=== PATIENT | male | born 1955 | race African-American/Black ===

== ENCOUNTER 2021-01-02 13:10 | Inpatient (IN) | payer MEDICARE, MEDICAID, SELFPAY ==
--- NOTE | ~2021-01-02 | CT_ITS ---
EXAMINATION: CT BRAIN, CT CERVICAL SPINE AND CT CHEST WITHOUT CONTRAST. CLINICAL INFORMATION: Fall. COMPARISON: None TECHNIQUE: 5 mm thin axial and reformatted 2 mm thin sagittal and coronal images of brain were obtained. Axial 2 mm thin and reformatted 3 mm thin sagittal and coronal images of cervical spine were obtained. Lastly axial 5 mm thin and reformatted 3 mm thin sagittal and coronal images of chest were obtained. FINDINGS: Brain: There is no acute intra-axial, extra-axial bleed, masses or midline shift. There is no acute infarction evolution. The lateral ventricles are symmetrical in size and configuration without enlargement. The cartwright to white matter differentiation is maintained normal. Bone windows reveal no calvarial abnormality. Bilateral paranasal sinuses and mastoid air cells are well-aerated. Cervical spine: There is mild straightening of cervical lordosis. The vertebral heights and alignment is preserved normal. The craniovertebral junction and the C1-C2 alignment is normal. No visible acute fracture, dislocation or subluxation seen. The prevertebral and paravertebral soft tissues are normal. The central trachea and the bronchi widely patent. Mild emphysematous changes are seen in both lungs. CHEST: There is diffuse emphysematous changes of both lungs without acute pneumonic consolidation. There are fine interstitial increased markings in right upper lobe and right lower lobe. There is no pleural effusion or thickening. No visible pneumothorax. The axilla and the chest wall is unremarkable. Bone windows reveal no lytic or sclerotic process. Imaging to the upper abdomen reveals visualized liver, spleen, pancreas and bilateral adrenal glands to be unremarkable. There are small radiopaque gallstone noted. CT/CT cervical spine wo con IMPRESSION: No acute intracranial process seen. Mild straightening of cervical lordosis without any underlying fracture, dislocation or subluxation. There is exaggerated thoracic kyphosis. Diffuse centrilobular emphysema. There is right basilar atelectasis or scarring. No effusion or pleural thickening.
--- NOTE | ~2021-01-02 | US_ITS ---
EXAMINATION: US ABDOMEN LIMITED CLINICAL INFORMATION: Femur, elevated LFT. COMPARISON: Report from CT abdomen and pelvis noncontrast 03/27/2013 and report from abdominal ultrasound 04/08/2011. TECHNIQUE: Real-time imaging of the right upper quadrant abdominal viscera. Technically challenging exam noted by it desktop support technician. FINDINGS: PANCREAS: The visualized pancreas is unremarkable with normal echogenicity and contour and size. There is no pancreatic ductal distention. The pancreatic tail is obscured by bowel gas and not completely imaged. LIVER: The liver is within limits of normal size and smooth in contour. There is increased hepatic parenchymal echogenicity consistent with hepatic steatosis. There is no focal hepatic parenchymal lesion or intrahepatic ductal dilatation. GALLBLADDER: The gallbladder is only partially distended to 1.8 cm in diameter. There is a mobile gallstone measuring 1.0 cm in diameter. There may be some dependent sludge. The gallbladder wall is mildly thickened at 0.39 cm. There is no subserosal edema or pericholecystic fluid. Barrera's sign is difficult to assess. COMMON BILE DUCT: Normal in caliber measuring 0.55 cm in diameter. No visible ductal calculus. RIGHT KIDNEY: Normal. No hydronephrosis. No renal calculi or focal parenchymal lesions. The kidney measures 10.1 cm in maximum dimension. FREE FLUID: None. US/US abdomen limited IMPRESSION: 1. Hepatic steatosis. No focal parenchymal lesion or intrahepatic ductal dilatation. 2. Gallstone, possible dependent sludge in gallbladder. Mild thickening gallbladder wall may be related to limited distention. No hyperemia on color Doppler. Common duct unremarkable.
--- NOTE | ~2021-01-02 | MR_ITS ---
EXAMINATION: MR BRAIN WITHOUT AND WITH CONTRAST CLINICAL INFORMATION: Seizure. COMPARISON: CT head from 01/02/2021. TECHNIQUE: MRI of the brain was obtained using routine sequences without and following the administration of 6 mL of Gadavist intravenous contrast. FINDINGS: No focal restricted diffusion is demonstrated to suggest acute or subacute cerebral ischemia. No evidence of acute hemorrhagic products on heme-sensitive imaging. Punctate focus of susceptibility artifact in the right temporal lobe consistent with petechial microhemorrhage. Scattered periventricular and deep white matter T2 FLAIR hyperintensities consistent with mild to moderate underlying microangiopathy. Proportional prominence of the ventricles and sulcal spaces without evidence of obstructive hydrocephalus. No abnormal mass effect. No midline shift. The hippocampi are symmetric in size, contour, and signal intensity. The temporal horns appear symmetric. Normal appearance of the pituitary gland. Prominent CSF space posterior to the cerebellum. Normal arterial and venous vascular flow voids are present. No abnormal contrast enhancement. Normal, homogeneous marrow signal. Moderate degenerative spondyloarthropathy of the visualized upper cervical spine. No signal abnormalities within the paranasal sinuses or mastoids. MR/MR head/brain wo/w con IMPRESSION: 1. No acute intracranial abnormalities. No abnormal intracranial enhancement. 2. Mild to moderate underlying microangiopathy and generalized cerebral volume loss.
--- NOTE | ~2021-01-02 | CT_ITS ---
EXAMINATION: CT ABDOMEN AND PELVIS WITHOUT CONTRAST CLINICAL INFORMATION: Sepsis with question of underlying infection COMPARISON: Ultrasound abdomen performed earlier today, CT abdomen pelvis 03/27/[address] chest 01/02/2021 TECHNIQUE: Multidetector volumetric imaging was performed from the superior aspect of the liver through the pubic symphysis. Sagittal and coronal reformatted images were obtained on the technologist's workstation. This CT examination was performed using dose optimization techniques as appropriate, variously including the following: *Automated exposure control *Adjustment of mA and/or kV according to patient size (this includes techniques or standardized protocols for targeted exams where dose is matched to indication/reason for exam; i.e. extremities or head) *Use of iterative reconstruction technique DLP: 688 mGy-cm FINDINGS: LUNG BASES: Severe changes of COPD are present at the lung bases. No consolidations are seen. LIVER, GALLBLADDER, AND BILIARY TREE: The liver is normal in size, shape, and attenuation. No focal hepatic lesion or biliary ductal dilatation is present. The gallbladder is contracted containing a single gallstone. Appearances are similar to those noted in 2013. No evidence to suggest cholecystitis. PANCREAS: Unremarkable. SPLEEN: Unremarkable. ADRENAL GLANDS: Unremarkable. KIDNEYS AND URETERS: The kidneys are normal in size, shape, and attenuation. No hydronephrosis, hydroureter, or calculi seen. No perinephric stranding. BLADDER: Unremarkable. GASTROINTESTINAL TRACT: Large stool burden is present in the colon especially the rectum and right colon. No evidence of bowel obstruction nor diverticulitis. The small and large bowel are unremarkable. The appendix is normal.. ABDOMINAL WALL: No significant hernia is appreciated. LYMPH NODES: No retroperitoneal lymphadenopathy. VASCULAR: Calcific atherosclerotic changes present in the aorta and iliofemoral vessels. No aneurysms.. PELVIC VISCERA: Calcifications present in the prostate. Seminal vesicles appear normal. No ascites. OSSEOUS STRUCTURES: Mild degenerative changes present in the spine. No bony destructive lesions. CT/CT abdomen pelvis wo con IMPRESSION: A cause for the patient's underlying sepsis is not seen. Incidental note made of COPD, cholelithiasis, large stool burden and atherosclerotic changes in the aorta.
--- NOTE | 2021-01-02 14:03 | ED_ITS ---
HPI - Fever General Chief Complaint: General Medical Stated Complaint: SEIZURE,FEVER @ SNF PER EMS Time Seen by Provider: 01/02/21 13:54 Source: patient, EMS and old records reviewed Mode of arrival: EMS Limitations: altered mental status History of Present Illness HPI Narrative: 65 yo male with HIV dementia, prior substance abuse, HTN, bipolar comes from SNF with c/o a resident saw him shake and then patient fell out of bed. staff editor at SNF told EMS the same no other history offered patient felt hot to the touch with EMS and is tachycardic. The patient states it hurts to pee. He is incontinent of stool. EMS states patient was still on the floor when they arrived but the did not see any seizure activity. No staff witnessed seizure activity. MD elicited complaint: fever Onset (ago): unknown Exacerbating factors: nothing Relieving factors: nothing Associated symptoms: dysuria Treatments prior to arrival fever: none Related Data Home Medications Medication Instructions Recorded Confirmed amlodipine 2.5 mg tablet 1 tab PO DAILY 01/02/21 01/02/21 emtricitabine 200 mg-rilpivirine 1 tab PO DAILY 01/02/21 01/02/21 25 mg-tenofovir alafenam 25 mg tablet (Abram) ergocalciferol (vitamin D2) 1,250 1 cap PO MO 01/02/21 01/02/21 mcg (50,000 unit) capsule haloperidol decanoate 50 mg/mL 50 mg IM Q28D 01/02/21 01/02/21 intramuscular solution hydrochlorothiazide 12.5 mg capsule 1 cap PO DAILY 01/02/21 01/02/21 mirtazapine 15 mg tablet 1 tab PO BEDTIME 01/02/21 01/02/21 olanzapine 20 mg tablet 1 tab PO DAILY 01/02/21 01/02/21 Allergies Allergy/AdvReac Type Severity Reaction Status Date / Time No Known Allergies Allergy Unverified 01/28/20 16:07 [No Known Allergies*] Review of Systems Review of Systems: ROS unable to be obtained due to altered mental status PMFSH Past Medical History Attestation statement: The following information was validated with the patient. Medical History (Updated 01/02/21 @ 16:33 by Roz Kenyon DO) Bipolar 1 disorder Dementia Hepatitis C HIV (human immunodeficiency virus infection) HTN (hypertension) Liver failure Social History Social History Patient Tobacco Use Status: Tobacco use Unknown Substance Use Type: Former Substance User Are you DNR?: No Advance Directives: No Advance Directives Information Provided: No Physical Exam Vital Signs: Vital Signs: Last Vital Signs Temp 99.7 F 01/02/21 15:21 Pulse 110 H 01/02/21 15:21 Resp 18 01/02/21 15:21 BP 136/98 H 01/02/21 14:18 Pulse Ox 97 01/02/21 15:21 Body Mass Index 25.1 Appearance: Alert. Oriented X2. No acute distress. Eyes: Pupils equal, round and reactive to light. ENT: Pharynx normal. Neck: Normal inspection. Neck supple. no meningeal signs CVS: tachycardic heart rate and rhythm. Pulses normal. Respiratory: No respiratory distress. Breath sounds normal. Abdomen: Soft and non-tender. does not grimace to palpation Skin: Skin warm and dry. Normal skin color. Normal skin turgor. Extremities: No lower extremity edema. incontinent of stool. no pain to palpation of extremities Neuro: Oriented X 2. No motor deficit. No sensory deficit. Course Course Course Narrative: signed out to Freddie MODI pending UA and US report MDM - Fever MDM Narrative Medical decision making narrative: 65 yo male with HIV dementia, prior substance abuse, HTN, bipolar comes from [facility] with c/o a resident saw him shake and then patient fell out of bed. staff editor at [facility] told EMS the same no other history offered patient felt hot to the touch with EMS and is tachycardic. At this time will need labs, cultures, UA, CT of head/cspine/chest to r/o trauma and infection. IVF, tylenol PO dispo per results and findings. Unsure if he had seizure no prior known episodes in [facility] I can find he is very limited in history. Lab Data Result diagrams: 01/02/21 14:24 01/02/21 14:24 Labs: Lab Results 01/02/21 01/02/21 01/02/21 Range/Units 14:24 14:24 14:24 WBC 6.2 (4.8-10.8) X10*3/uL RBC 5.58 (4.60-5.80) X10*6/uL Hgb 17.0 (14.0-18.0) g/dl Hct 51.7 (42-52) % MCV 92.7 (80-98) fL MCH 30.5 (27.0-33.0) pg MCHC 32.9 (31.0-36.0) g/dl RDW 13.0 (11.0-16.0) % Plt Count 237 (160-400) X10*3/uL MPV 9.4 (9.4-12.4) fL Immature Gran % (Auto) 1.0 H (0.0-0.4) % Neut % (Auto) 48.9 (45-73) % Lymph % (Auto) 40.6 H (20-40) % [place] % (Auto) 8.0 (2-11) % Eos % (Auto) 1.0 (0-4) % Baso % (Auto) 0.5 (0-2) % Lymph # (Auto) 2.5 (1.2-4.9) X10*3/uL [place] # (Auto) 0.5 (0.1-1.2) X10*3/uL Eos # (Auto) 0.1 (0.0-0.4) X10*3/uL Baso # (Auto) 0.0 (0.0-0.2) X10*3/uL Abs Immat Gran (auto) 0.06 H (0.00-0.03) X10*3/uL Absolute Neuts (auto) 3.0 (2.0-8.3) X10*3/uL Absolute Nucleated RBC 0.000 (0.0-0.012) X10*3/uL Nucleated RBC % (auto) 0.0 (0.0-0.2) /100WBC Sodium 141 (135-145) mmol/L Potassium 4.4 (3.3-5.1) mmol/L Chloride 106 (96-108) mmol/L Carbon Dioxide 26 (22-29) mmol/L Anion Gap 13 (12-20) BUN 13 (9-16) mg/dL Creatinine 1.00 (0.5-1.4) mg/dL Estim Creat Clear Calc 72.6 Estimated GFR > 60 Random Glucose 202 H (60-115) mg/dL Lactic Acid 2.6 H* (0.5-2.0) mmol/L Calcium 9.7 (8.4-10.2) mg/dL Magnesium (1.6-2.6) mg/dL Total Bilirubin (0.0-1.0) mg/dL Direct Bilirubin (0.0-0.5) mg/dL AST (5-37) U/L ALT (0-40) U/L Alkaline Phosphatase (39-117) U/L Total Creatine Kinase 72 (38-174) U/L Troponin I High Sens (<3.5-35.0) ng/L Total Protein (6.5-8.0) g/dL Albumin (3.5-5.0) g/dL Lipase 44 (8-78) U/L 01/02/21 01/02/21 Range/Units 14:24 14:24 WBC (4.8-10.8) X10*3/uL RBC (4.60-5.80) X10*6/uL Hgb (14.0-18.0) g/dl Hct (42-52) % MCV (80-98) fL MCH (27.0-33.0) pg MCHC (31.0-36.0) g/dl RDW (11.0-16.0) % Plt Count (160-400) X10*3/uL MPV (9.4-12.4) fL Immature Gran % (Auto) (0.0-0.4) % Neut % (Auto) (45-73) % Lymph % (Auto) (20-40) % [place] % (Auto) (2-11) % Eos % (Auto) (0-4) % Baso % (Auto) (0-2) % Lymph # (Auto) (1.2-4.9) X10*3/uL [place] # (Auto) (0.1-1.2) X10*3/uL Eos # (Auto) (0.0-0.4) X10*3/uL Baso # (Auto) (0.0-0.2) X10*3/uL Abs Immat Gran (auto) (0.00-0.03) X10*3/uL Absolute Neuts (auto) (2.0-8.3) X10*3/uL Absolute Nucleated RBC (0.0-0.012) X10*3/uL Nucleated RBC % (auto) (0.0-0.2) /100WBC Sodium (135-145) mmol/L Potassium (3.3-5.1) mmol/L Chloride (96-108) mmol/L Carbon Dioxide (22-29) mmol/L Anion Gap (12-20) BUN (9-16) mg/dL Creatinine (0.5-1.4) mg/dL Estim Creat Clear Calc Estimated GFR Random Glucose (60-115) mg/dL Lactic Acid (0.5-2.0) mmol/L Calcium (8.4-10.2) mg/dL Magnesium 2.4 (1.6-2.6) mg/dL Total Bilirubin 1.2 H (0.0-1.0) mg/dL Direct Bilirubin 0.8 H (0.0-0.5) mg/dL AST 93 H (5-37) U/L ALT 67 H (0-40) U/L Alkaline Phosphatase 114 (39-117) U/L Total Creatine Kinase (38-174) U/L Troponin I High Sens 6.7 (<3.5-35.0) ng/L Total Protein 9.0 H (6.5-8.0) g/dL Albumin 3.4 L (3.5-5.0) g/dL Lipase (8-78) U/L ECG Data ECG #1: Attestation: I personally reviewed and interpreted this ECG as follows: ECG interpretation date: 01/02/21 ECG interpretation time: 15:24 Interpretation: Rate: 110 Rhythm: sinus tachycardia [place]: left Normal P waves. Normal CARLOZ. Normal QRS complex. ST T wave : normal no JIMMY qTC: normal prior studies: no acute ischemia The study has been interpreted contemporaneously by me. . Discharge Plan Discharge Clinical Impression: Acidosis, lactic, Weakness, Gallstones, Elevated liver function tests Prescriptions: No Action amlodipine 2.5 mg tablet 1 tab PO DAILY RF: 0 hydrochlorothiazide 12.5 mg capsule 1 cap PO DAILY RF: 0 haloperidol decanoate 50 mg/mL solution 50 mg IM Q28D RF: 0 mirtazapine 15 mg tablet 1 tab PO BEDTIME RF: 0 ergocalciferol (vitamin D2) 1,250 mcg (50,000 unit) capsule 1 cap PO MO RF: 0 olanzapine 20 mg tablet 1 tab PO DAILY RF: 0 [place] 200-25-25 mg tablet 1 tab PO DAILY RF: 0
--- NOTE | 2021-01-02 14:05 | ECG_ITS ---
Test Reason : SEIZURE Blood Pressure : / mmHG Vent. Rate : 111 BPM Atrial Rate : 111 BPM P-R Int : 162 ms QRS Dur : 074 ms QT Int : 346 ms P-R-T Axes : 053 -36 041 degrees QTc Int : 470 ms Sinus tachycardia Left axis deviation Abnormal ECG When compared with ECG of 22-OCT-2019 15:45, No significant change was found Referred By: Roz Kenyon Electronically Signed By:ERIC GRACIA
[2021-01-02 14:11] VITALS: BP 138/78; PULSE 126; O2SAT 98
[2021-01-02 14:18] VITALS: BP 136/98; PULSE 116; RESP 19; TEMP 37.2; O2SAT 93; BMI 25.1
[2021-01-02] MEDS: 0.9 % Sodium Chloride 1,000 ML 999 ML IVCONT (14:30)
[2021-01-02 14:31] LABS: MANUAL DIFF FLAG NO
[2021-01-02] MEDS: ondansetron HCL 4 MG/2 ML VIAL IVPUSH (14:32)
[2021-01-02] MEDS: Acetaminophen Oral Liquid 650 MG/20.3 ML SOLUTION PO (14:33)
[2021-01-02 14:35] LABS: Basophils Percent Auto 0.5 % (0-2); Eosinophils Absolute Auto 0.1 X10*3/uL (0.0-0.4); Hematocrit 51.7 % (42-52); Imm Gran Abs Auto 0.06 X10*3/uL (0.00-0.03); Lymphocytes Absolute Auto 2.5 X10*3/uL (1.2-4.9); Lymphocytes Percent Auto 40.6 % (20-40); Mean Corpuscular HGB Conc 32.9 g/dl (31.0-36.0); Mean Corpuscular Hemoglobin 30.5 pg (27.0-33.0); Mean Corpuscular Volume 92.7 fL (80-98); Mean Platelet Volume 9.4 fL (9.4-12.4); Monocytes Absolute Auto 0.5 X10*3/uL (0.1-1.2); Neutrophils Percent Auto 48.9 % (45-73); Platelet Count 237 X10*3/uL (160-400); Red Blood Count 5.58 X10*6/uL (4.60-5.80); White Blood Count 6.2 X10*3/uL (4.8-10.8)
[2021-01-02] MEDS: cefEPime HCl 2 GM in 0.9 % Sodium Chloride 50 ML IV (14:38)
--- NOTE | 2021-01-02 14:57 | PHA.MEDREC ---
Pharmacy Consult ? Medication Reconciliation Pharmacy has completed the medication reconciliation. Verified with Patrick Coyne [facility] at [phone]
[2021-01-02 15:05] LABS: Alanine Aminotransferase 67 U/L (0-40); Albumin Level 3.4 g/dL (3.5-5.0); Alkaline Phosphatase 114 U/L (39-117); Anion Gap 13 (12-20); Aspartate Amino Transferase 93 U/L (5-37); Bilirubin Direct 0.8 mg/dL (0.0-0.5); Bilirubin Total 1.2 mg/dL (0.0-1.0); Blood Urea Nitrogen 13 mg/dL (9-16); Calcium 9.7 mg/dL (8.4-10.2); Carbon Dioxide 26 mmol/L (22-29); Chloride 106 mmol/L (96-108); Creatinine Clr Calc Pharmacy 72.6; Estimated Glomerular Filt Rate > 60; Glucose Random 202 mg/dL (60-115); Lipase 44 U/L (8-78); Magnesium 2.4 mg/dL (1.6-2.6); Potassium 4.4 mmol/L (3.3-5.1); Sodium 141 mmol/L (135-145)
[2021-01-02 15:08] LABS: Troponin-I High Sensitivity 6.7 ng/L (<3.5-35.0)
[2021-01-02 15:09] LABS: Lactic Acid 2.6 mmol/L (0.5-2.0)
[2021-01-02 15:21] VITALS: PULSE 110; RESP 18; TEMP 37.6; O2SAT 97
[2021-01-02 16:30] LABS: Reflex Lactate? Lactic Acid Added
[2021-01-02 17:54] LABS: Glucose Urine UA NEG (NEG); Leukocyte Esterase Urine NEG (NEG); Nitrite Urine NEG (NEG); Specific Gravity - Urine 1.025 (1.005-1.025); UACC Culture Trigger NO; Urine Blood TRACE (NEG); Urine Ketones NEG (NEG); Urine Protein 2+ MG/DL (NEG-TRACE)
[2021-01-02 17:56] LABS: Appearance Urine CLEAR; Color Urine DARK YELLOW
[2021-01-02 18:01] LABS: COVID-19 Test Negative (Negative)
[2021-01-02 18:04] LABS: ~Lactic Acid-LAB USE ONLY 1.8 mmol/L (0.5-2.0)
[2021-01-02 18:06] LABS: Bacteria Urine TRACE /LPF; Calcium Oxalate Crystals Urine TRACE /LPF; Mucus Urine TRACE /LPF; Squamous Epithelial Cell Urine TRACE /LPF; WBC Urine 0-2 /HPF (0-4)
[2021-01-02 18:09] VITALS: BP 124/93; PULSE 101; RESP 18; TEMP 36.5; O2SAT 97
[2021-01-02 19:27] VITALS: RESP 16
--- NOTE | 2021-01-02 20:40 | PC.NURSE ---
pt was incontinent of urine. this nurse and aviation maintenance technician Lissy at bedside to clean and change pt pt cleaned and bed linens changed call dubose in reach
--- NOTE | 2021-01-02 20:45 | PC.NURSE ---
Sergio RAJPUT. Ariela Frazier [employer], [facility] and this nurse at bedside to assist in lumbar puncture pt tolerating procedure well specimens collected and sent to lab
[2021-01-02 21:20] LABS: CSF Appearance Clear, Colorless; CSF Tube # 2
[2021-01-02 21:42] LABS: Glucose CSF 80 mg/dL; Total Protein CSF 79.9 mg/dL (15-45)
[2021-01-02 23:01] LABS: Appearance CSF CLEAR; CSF Tube # 1; Color CSF COLORLESS
[2021-01-02 23:02] LABS: CSF Monos 2 %; Lymphocytes CSF 98 %; Red Blood Cell CSF 112 MM*3
[2021-01-02 23:04] LABS: White Blood Cell CSF 16 MM*3
[2021-01-02 23:05] LABS: Appearance CSF CLEAR; CSF Monos 1 %; CSF Tube # 4; CSF Volume 0.5 ML; Color CSF COLORLESS; Lymphocytes CSF 99 %; Red Blood Cell CSF 7 MM*3; White Blood Cell CSF 33 MM*3
--- NOTE | 2021-01-02 23:15 | ED_ITS ---
HPI - General Adult General Chief complaint: General Medical Stated complaint: SEIZURE,FEVER @ SNF PER EMS Time Seen by Provider: 01/02/21 13:54 Source: patient, EMS and old records reviewed Mode of arrival: EMS Limitations: altered mental status Related Data Home Medications Medication Instructions Recorded Confirmed amlodipine 2.5 mg tablet 1 tab PO DAILY 01/02/21 01/02/21 emtricitabine 200 mg-rilpivirine 1 tab PO DAILY 01/02/21 01/02/21 25 mg-tenofovir alafenam 25 mg tablet (Abram) ergocalciferol (vitamin D2) 1,250 1 cap PO MO 01/02/21 01/02/21 mcg (50,000 unit) capsule haloperidol decanoate 50 mg/mL 50 mg IM Q28D 01/02/21 01/02/21 intramuscular solution hydrochlorothiazide 12.5 mg capsule 1 cap PO DAILY 01/02/21 01/02/21 mirtazapine 15 mg tablet 1 tab PO BEDTIME 01/02/21 01/02/21 olanzapine 20 mg tablet 1 tab PO DAILY 01/02/21 01/02/21 Allergies Allergy/AdvReac Type Severity Reaction Status Date / Time No Known Allergies Allergy Unverified 01/28/20 16:07 [No Known Allergies*] [facility] Past Medical History Medical History (Updated 01/02/21 @ 23:16 by Clay Sanchez MD) Bipolar 1 disorder Dementia Hepatitis C HIV (human immunodeficiency virus infection) HTN (hypertension) Liver failure Social History Social History Patient Tobacco Use Status: Tobacco use Unknown Substance Use Type: Former Substance User Are you DNR?: No Advance Directives: No Advance Directives Information Provided: No Physical Exam Vital Signs: Vital Signs: Last Vital Signs Temp 98.1 F 01/03/21 00:21 Pulse 89 01/03/21 00:21 Resp 16 01/03/21 00:21 BP 134/88 01/03/21 00:21 Pulse Ox 96 01/03/21 00:21 Body Mass Index 25.1 Procedures Lumbar Puncture Time Out Performed: Yes Patient Position: upright Skin Prep: Povidone-Iodine 1% Local Anesthetic: lidocaine 2% Amount of anesthesia used (mL): 2 Spinal Needle Gauge: 22G Interspace Used: L4-L5 Fluid Initially Obtained: clear Complications: none Medical Decision Making Lab Data Result diagrams: 01/02/21 14:24 01/02/21 14:24 Labs: Lab Results 01/02/21 01/02/21 01/02/21 Range/Units 14:24 14:24 14:24 WBC 6.2 (4.8-10.8) X10*3/uL RBC 5.58 (4.60-5.80) X10*6/uL Hgb 17.0 (14.0-18.0) g/dl Hct 51.7 (42-52) % MCV 92.7 (80-98) fL MCH 30.5 (27.0-33.0) pg MCHC 32.9 (31.0-36.0) g/dl RDW 13.0 (11.0-16.0) % Plt Count 237 (160-400) X10*3/uL MPV 9.4 (9.4-12.4) fL Immature Gran % (Auto) 1.0 H (0.0-0.4) % Neut % (Auto) 48.9 (45-73) % Lymph % (Auto) 40.6 H (20-40) % [place] % (Auto) 8.0 (2-11) % Eos % (Auto) 1.0 (0-4) % Baso % (Auto) 0.5 (0-2) % Lymph # (Auto) 2.5 (1.2-4.9) X10*3/uL [place] # (Auto) 0.5 (0.1-1.2) X10*3/uL Eos # (Auto) 0.1 (0.0-0.4) X10*3/uL Baso # (Auto) 0.0 (0.0-0.2) X10*3/uL Abs Immat Gran (auto) 0.06 H (0.00-0.03) X10*3/uL Absolute Neuts (auto) 3.0 (2.0-8.3) X10*3/uL Absolute Nucleated RBC 0.000 (0.0-0.012) X10*3/uL Nucleated RBC % (auto) 0.0 (0.0-0.2) /100WBC Sodium 141 (135-145) mmol/L Potassium 4.4 (3.3-5.1) mmol/L Chloride 106 (96-108) mmol/L Carbon Dioxide 26 (22-29) mmol/L Anion Gap 13 (12-20) BUN 13 (9-16) mg/dL Creatinine 1.00 (0.5-1.4) mg/dL Estim Creat Clear Calc 72.6 Estimated GFR > 60 Random Glucose 202 H (60-115) mg/dL Lactic Acid 2.6 H* (0.5-2.0) mmol/L Lactic Acid Fup @ 2Hr (0.5-2.0) mmol/L Calcium 9.7 (8.4-10.2) mg/dL Magnesium (1.6-2.6) mg/dL Total Bilirubin (0.0-1.0) mg/dL Direct Bilirubin (0.0-0.5) mg/dL AST (5-37) U/L ALT (0-40) U/L Alkaline Phosphatase (39-117) U/L Total Creatine Kinase 72 (38-174) U/L Troponin I High Sens (<3.5-35.0) ng/L Total Protein (6.5-8.0) g/dL Albumin (3.5-5.0) g/dL Lipase 44 (8-78) U/L Urine Color Urine Appearance Urine pH (5.0-8.0) Ur Specific [place] (1.005-1.025) Urine Protein (NEG-TRACE) MG/DL Urine Glucose (UA) (NEG) MG/DL Urine Ketones (NEG) MG/DL Urine Blood (NEG) Urine Nitrite (NEG) Ur Leukocyte Esterase (NEG) Urine RBC (0) /HPF Urine WBC (0-4) /HPF Ur Squamous Epith Cells /LPF Calcium Oxalate Crystal /LPF Urine Bacteria /LPF Hyaline Casts /LPF Urine Mucus /LPF CSF Tube Number CSF Volume ML CSF Appearance CSF Color CSF WBC MM*3 CSF RBC MM*3 CSF Lymphocytes % CSF Monocytes % % CSF Appearance (b) CSF Glucose mg/dL CSF Total Protein (15-45) mg/dL COVID-19 (MARC) (Negative) COVID-19 Clin Com 01/02/21 01/02/21 01/02/21 Range/Units 14:24 14:24 17:37 WBC (4.8-10.8) X10*3/uL RBC (4.60-5.80) X10*6/uL Hgb (14.0-18.0) g/dl Hct (42-52) % MCV (80-98) fL MCH (27.0-33.0) pg MCHC (31.0-36.0) g/dl RDW (11.0-16.0) % Plt Count (160-400) X10*3/uL MPV (9.4-12.4) fL Immature Gran % (Auto) (0.0-0.4) % Neut % (Auto) (45-73) % Lymph % (Auto) (20-40) % [place] % (Auto) (2-11) % Eos % (Auto) (0-4) % Baso % (Auto) (0-2) % Lymph # (Auto) (1.2-4.9) X10*3/uL [place] # (Auto) (0.1-1.2) X10*3/uL Eos # (Auto) (0.0-0.4) X10*3/uL Baso # (Auto) (0.0-0.2) X10*3/uL Abs Immat Gran (auto) (0.00-0.03) X10*3/uL Absolute Neuts (auto) (2.0-8.3) X10*3/uL Absolute Nucleated RBC (0.0-0.012) X10*3/uL Nucleated RBC % (auto) (0.0-0.2) /100WBC Sodium (135-145) mmol/L Potassium (3.3-5.1) mmol/L Chloride (96-108) mmol/L Carbon Dioxide (22-29) mmol/L Anion Gap (12-20) BUN (9-16) mg/dL Creatinine (0.5-1.4) mg/dL Estim Creat Clear Calc Estimated GFR Random Glucose (60-115) mg/dL Lactic Acid (0.5-2.0) mmol/L Lactic Acid Fup @ 2Hr (0.5-2.0) mmol/L Calcium (8.4-10.2) mg/dL Magnesium 2.4 (1.6-2.6) mg/dL Total Bilirubin 1.2 H (0.0-1.0) mg/dL Direct Bilirubin 0.8 H (0.0-0.5) mg/dL AST 93 H (5-37) U/L ALT 67 H (0-40) U/L Alkaline Phosphatase 114 (39-117) U/L Total Creatine Kinase (38-174) U/L Troponin I High Sens 6.7 (<3.5-35.0) ng/L Total Protein 9.0 H (6.5-8.0) g/dL Albumin 3.4 L (3.5-5.0) g/dL Lipase (8-78) U/L Urine Color Urine Appearance Urine pH (5.0-8.0) Ur Specific [place] (1.005-1.025) Urine Protein (NEG-TRACE) MG/DL Urine Glucose (UA) (NEG) MG/DL Urine Ketones (NEG) MG/DL Urine Blood (NEG) Urine Nitrite (NEG) Ur Leukocyte Esterase (NEG) Urine RBC (0) /HPF Urine WBC (0-4) /HPF Ur Squamous Epith Cells /LPF Calcium Oxalate Crystal /LPF Urine Bacteria /LPF Hyaline Casts /LPF Urine Mucus /LPF CSF Tube Number CSF Volume ML CSF Appearance CSF Color CSF WBC MM*3 CSF RBC MM*3 CSF Lymphocytes % CSF Monocytes % % CSF Appearance (b) CSF Glucose mg/dL CSF Total Protein (15-45) mg/dL COVID-19 (MARC) Negative (Negative) COVID-19 Clin Com See Note 01/02/21 01/02/21 01/02/21 Range/Units 17:37 17:37 21:02 WBC (4.8-10.8) X10*3/uL RBC (4.60-5.80) X10*6/uL Hgb (14.0-18.0) g/dl Hct (42-52) % MCV (80-98) fL MCH (27.0-33.0) pg MCHC (31.0-36.0) g/dl RDW (11.0-16.0) % Plt Count (160-400) X10*3/uL MPV (9.4-12.4) fL Immature Gran % (Auto) (0.0-0.4) % Neut % (Auto) (45-73) % Lymph % (Auto) (20-40) % [place] % (Auto) (2-11) % Eos % (Auto) (0-4) % Baso % (Auto) (0-2) % Lymph # (Auto) (1.2-4.9) X10*3/uL [place] # (Auto) (0.1-1.2) X10*3/uL Eos # (Auto) (0.0-0.4) X10*3/uL Baso # (Auto) (0.0-0.2) X10*3/uL Abs Immat Gran (auto) (0.00-0.03) X10*3/uL Absolute Neuts (auto) (2.0-8.3) X10*3/uL Absolute Nucleated RBC (0.0-0.012) X10*3/uL Nucleated RBC % (auto) (0.0-0.2) /100WBC Sodium (135-145) mmol/L Potassium (3.3-5.1) mmol/L Chloride (96-108) mmol/L Carbon Dioxide (22-29) mmol/L Anion Gap (12-20) BUN (9-16) mg/dL Creatinine (0.5-1.4) mg/dL Estim Creat Clear Calc Estimated GFR Random Glucose (60-115) mg/dL Lactic Acid (0.5-2.0) mmol/L Lactic Acid Fup @ 2Hr 1.8 (0.5-2.0) mmol/L Calcium (8.4-10.2) mg/dL Magnesium (1.6-2.6) mg/dL Total Bilirubin (0.0-1.0) mg/dL Direct Bilirubin (0.0-0.5) mg/dL AST (5-37) U/L ALT (0-40) U/L Alkaline Phosphatase (39-117) U/L Total Creatine Kinase (38-174) U/L Troponin I High Sens (<3.5-35.0) ng/L Total Protein (6.5-8.0) g/dL Albumin (3.5-5.0) g/dL Lipase (8-78) U/L Urine Color DARK YELLOW Urine Appearance CLEAR Urine pH 6.0 (5.0-8.0) Ur Specific [place] 1.025 (1.005-1.025) Urine Protein 2+ H (NEG-TRACE) MG/DL Urine Glucose (UA) NEG (NEG) MG/DL Urine Ketones NEG (NEG) MG/DL Urine Blood TRACE (NEG) Urine Nitrite NEG (NEG) Ur Leukocyte Esterase NEG (NEG) Urine RBC 1-4 (0) /HPF Urine WBC 0-2 (0-4) /HPF Ur Squamous Epith Cells TRACE /LPF Calcium Oxalate Crystal TRACE /LPF Urine Bacteria TRACE /LPF Hyaline Casts 1-4 /LPF Urine Mucus TRACE /LPF CSF Tube Number 1 CSF Volume 2.0 ML CSF Appearance CLEAR CSF Color COLORLESS CSF WBC 16 H* MM*3 CSF RBC 112 MM*3 CSF Lymphocytes 98 % CSF Monocytes % 2 % CSF Appearance (b) CSF Glucose mg/dL CSF Total Protein (15-45) mg/dL COVID-19 (MARC) (Negative) COVID-19 Clin Com 01/02/21 01/02/21 Range/Units 21:02 21:02 WBC (4.8-10.8) X10*3/uL RBC (4.60-5.80) X10*6/uL Hgb (14.0-18.0) g/dl Hct (42-52) % MCV (80-98) fL MCH (27.0-33.0) pg MCHC (31.0-36.0) g/dl RDW (11.0-16.0) % Plt Count (160-400) X10*3/uL MPV (9.4-12.4) fL Immature Gran % (Auto) (0.0-0.4) % Neut % (Auto) (45-73) % Lymph % (Auto) (20-40) % [place] % (Auto) (2-11) % Eos % (Auto) (0-4) % Baso % (Auto) (0-2) % Lymph # (Auto) (1.2-4.9) X10*3/uL [place] # (Auto) (0.1-1.2) X10*3/uL Eos # (Auto) (0.0-0.4) X10*3/uL Baso # (Auto) (0.0-0.2) X10*3/uL Abs Immat Gran (auto) (0.00-0.03) X10*3/uL Absolute Neuts (auto) (2.0-8.3) X10*3/uL Absolute Nucleated RBC (0.0-0.012) X10*3/uL Nucleated RBC % (auto) (0.0-0.2) /100WBC Sodium (135-145) mmol/L Potassium (3.3-5.1) mmol/L Chloride (96-108) mmol/L Carbon Dioxide (22-29) mmol/L Anion Gap (12-20) BUN (9-16) mg/dL Creatinine (0.5-1.4) mg/dL Estim Creat Clear Calc Estimated GFR Random Glucose (60-115) mg/dL Lactic Acid (0.5-2.0) mmol/L Lactic Acid Fup @ 2Hr (0.5-2.0) mmol/L Calcium (8.4-10.2) mg/dL Magnesium (1.6-2.6) mg/dL Total Bilirubin (0.0-1.0) mg/dL Direct Bilirubin (0.0-0.5) mg/dL AST (5-37) U/L ALT (0-40) U/L Alkaline Phosphatase (39-117) U/L Total Creatine Kinase (38-174) U/L Troponin I High Sens (<3.5-35.0) ng/L Total Protein (6.5-8.0) g/dL Albumin (3.5-5.0) g/dL Lipase (8-78) U/L Urine Color Urine Appearance Urine pH (5.0-8.0) Ur Specific [place] (1.005-1.025) Urine Protein (NEG-TRACE) MG/DL Urine Glucose (UA) (NEG) MG/DL Urine Ketones (NEG) MG/DL Urine Blood (NEG) Urine Nitrite (NEG) Ur Leukocyte Esterase (NEG) Urine RBC (0) /HPF Urine WBC (0-4) /HPF Ur Squamous Epith Cells /LPF Calcium Oxalate Crystal /LPF Urine Bacteria /LPF Hyaline Casts /LPF Urine Mucus /LPF CSF Tube Number 4 2 CSF Volume 0.5 ML CSF Appearance CLEAR CSF Color COLORLESS CSF WBC 33 H* MM*3 CSF RBC 7 MM*3 CSF Lymphocytes 99 % CSF Monocytes % 1 % CSF Appearance (b) Clear, Colorless CSF Glucose 80 mg/dL CSF Total Protein 79.9 H (15-45) mg/dL COVID-19 (MARC) (Negative) COVID-19 Clin Com Discharge Plan Discharge Clinical Impression: Encephalitis, viral, Seizure Patient Disposition: Admitted As Inpatient
[2021-01-03] VITALS (10 sets, daily range): BP systolic 129–161; BP diastolic 68–99; PULSE 89–134; RESP 16–22; TEMP 36.2–38.5; O2SAT 94–97; BMI 19.6
[2021-01-03] MEDS: 0.9 % Sodium Chloride Flush 3 ML SYRINGE IVFLUSH ×4 (00:42→21:30)
--- NOTE | 2021-01-03 02:39 | PC.NURSE ---
pt resting comfortably in bed in semi fowlers, left lateral position. this nurse offered to adjust bed height for pt comfort but pt stated he was comfortable. this nurse offered warm blanket and pt refused. no distress noted at this time. call dubose in reach.
--- NOTE | 2021-01-03 03:02 | PC.NURSE ---
pt pulled off cardiac cath lab manager leads for a second time hospitalist notified
--- NOTE | 2021-01-03 03:36 | PC.NURSE ---
per hospitalist (Hailey), ok to keep property assessment monitor off at this time
--- NOTE | 2021-01-03 03:55 | PC.NURSE ---
pt still awake in bed, semi fowlers right lateral position. bed linens remain dry. pt states he is comfortable. this nurse provided pt with fresh warm blanket. call dubose in reach.
--- NOTE | 2021-01-03 06:30 | PM.IMHP ---
History of Present Illness Date of Service: 01/03/21 Chief Complaint: Seizure This is a 65-year-old male with past medical history of HIV, dementia, prior substance abuse, HTN, bipolar disorder who presented from SNF with complaints of possible seizure episode. Apparently a staff saw him shaking and falling to the floor with tonic-clonic movements. Patient is very confused, lethargic but awakes to verbal command, wakes up answers questions but not appropriately and falls back asleep. Unable to get much history otherwise. He apparently felt also hot to the touch at the care home although no vitals were provided. On arrival to the ED patient vitals significant for temp of 99.7? and heart rate of 110 otherwise unremarkable CBC significant for WBC of 6.2 otherwise unremarkable, CMP significant for lactic acid of 2.6, total bili of 1.2, AST of 9 3, ALT of 67, otherwise unremarkable. UA negative for infection Lumbar puncture done in the ED showed increased lymphocytes as well as protein, patient was diagnosed with presumptive diagnosis of viral encephalitis given acyclovir and admitted for further management Unable to obtain past medical history directly from patient, therefore obtained from a.m. Review of Systems Review of Systems: Yes Unobtainable due to mental condition and Unobtainable due to mental status [facility] Medical History Bipolar 1 disorder Dementia Hepatitis C HIV (human immunodeficiency virus infection) HTN (hypertension) Liver failure Social History Patient Tobacco Use Status: Tobacco use Unknown Substance Use Type: Former Substance User Are you DNR?: No Advance Directives: No Advance Directives Information Provided: No Meds Allergies Allergy/AdvReac Type Severity Reaction Status Date / Time No Known Allergies Allergy Unverified 01/28/20 16:07 [No Known Allergies*] Active Medications: Current Medications Generic Name Dose Route Start Last Admin Trade Name Freq PRN Reason Stop Dose Admin Acetaminophen 650 mg 01/03/21 00:13 Acetaminophen 325 Mg Tablet PO Q6H PRN Pain, Mild (Pain Scale 1-3) Amlodipine Besylate 2.5 mg 01/03/21 09:00 Amlodipine Besylate 2.5 Mg Tablet PO DAILY CARINE Protocol Docusate Sodium 100 mg 01/03/21 00:13 Docusate Sodium 100 Mg Capsule PO DAILY PRN Constipation Enoxaparin Sodium 40 mg 01/03/21 10:00 Enoxaparin Sodium 40 Mg/0.4 Ml Syringe SUBCUT Q24H [facility] Ergocalciferol 1,250 mcg 01/03/21 00:13 Ergocalciferol (Vitamin D2) 1,250 Mcg Capsule PO MO [facility] Haloperidol Decanoate 50 mg 01/26/21 10:00 Haloperidol Decanoate 50 Mg/Ml Ampul IM Q28D [facility] Hydrochlorothiazide 12.5 mg 01/03/21 09:00 Hydrochlorothiazide 12.5 Mg Tablet PO DAILY [facility] Protocol Acyclovir Sodium 771.11 mg/ 265.4222 mls @ 252.984 mls/hr 01/03/21 08:00 Dextrose IV Q8H [facility] Mirtazapine 15 mg 01/03/21 21:00 Mirtazapine 15 Mg Tablet PO BEDTIME [facility] Non-Formulary Medication 1 tab 01/03/21 09:00 Ztboexiciq-Qpviqwiz-Euaxef Ala PO DAILY [facility] Olanzapine 20 mg 01/03/21 09:00 Olanzapine 10 Mg Tablet PO DAILY [facility] Ondansetron HCl 4 mg 01/03/21 00:13 Ondansetron Hcl 4 Mg/2 Ml Vial IVPUSH Q8H PRN Nausea and Vomiting Pharmacy Consult 1 each 01/02/21 14:05 Consult Rx Perform Med Rec MISCELLANE ONCE PRN Consult order Sodium Chloride 3 ml 01/03/21 00:13 01/03/21 00:42 0.9 % Sodium Chloride Flush 3 Ml Syringe IVFLUSH 3 ml QSHIFT [facility] Administration Home Medications Medication Instructions Recorded Confirmed Last Taken Type amlodipine 2.5 mg tablet 1 tab PO DAILY 01/02/21 01/02/21 01/02/21 History emtricitabine 200 mg-rilpivirine 1 tab PO DAILY 01/02/21 01/02/21 01/02/21 History 25 mg-tenofovir alafenam 25 mg tablet (Abram) ergocalciferol (vitamin D2) 1,250 1 cap PO MO 01/02/21 01/02/21 01/02/21 History mcg (50,000 unit) capsule haloperidol decanoate 50 mg/mL 50 mg IM Q28D 01/02/21 01/02/21 12/29/20 History intramuscular solution hydrochlorothiazide 12.5 mg capsule 1 cap PO DAILY 01/02/21 01/02/21 01/02/21 History mirtazapine 15 mg tablet 1 tab PO BEDTIME 01/02/21 01/02/21 01/01/21 History olanzapine 20 mg tablet 1 tab PO DAILY 01/02/21 01/02/21 01/02/21 History Physical Exam Vital Signs and Narrative: Vital Signs: Last Vital Signs Temp 98.1 F 01/03/21 00:21 Pulse 89 01/03/21 00:21 Resp 16 01/03/21 03:57 BP 134/88 01/03/21 00:21 Pulse Ox 96 01/03/21 00:21 Body Mass Index 25.1 Const: Other: Patient sleepy but arousable, answers questions but not appropriately General: cooperative and no acute distress HENMT: Other: Supple neck, nontender, Eyes: General: appearance normal, both eyes and all related structures Resp: Effort & Inspection: normal respiratory effort Auscultation: clear to auscultation bilaterally Cardio: Rate: regular rate Rhythm: regular rhythm GI: Palpation (GI): Soft to palpation Auscultation: normal bowel sounds Skin: General skin exam: no rashes or lesions noted Neuro: Other: Confused Extrem: General: Yes normal to inspection and Yes no pedal edema Results Labs CBC and Chem 7: 01/02/21 14:24 01/02/21 14:24 Labs: Laboratory Results - last 24 hr 01/02/21 01/02/21 01/02/21 14:24 14:24 14:24 MCV 92.7 MCH 30.5 MCHC 32.9 RDW 13.0 Plt Count 237 MPV 9.4 Immature Gran % (Auto) 1.0 H Neut % (Auto) 48.9 Lymph % (Auto) 40.6 H [place] % (Auto) 8.0 Eos % (Auto) 1.0 Baso % (Auto) 0.5 Lymph # (Auto) 2.5 [place] # (Auto) 0.5 Eos # (Auto) 0.1 Baso # (Auto) 0.0 Abs Immat Gran (auto) 0.06 H Absolute Neuts (auto) 3.0 Absolute Nucleated RBC 0.000 Nucleated RBC % (auto) 0.0 Anion Gap 13 Estim Creat Clear Calc 72.6 Estimated GFR > 60 Random Glucose 202 H Lactic Acid 2.6 H* Lactic Acid Fup @ 2Hr Calcium 9.7 Magnesium Total Bilirubin Direct Bilirubin AST ALT Alkaline Phosphatase Total Creatine Kinase 72 Troponin I High Sens Total Protein Albumin Lipase 44 Urine Color Urine Appearance Urine pH Ur Specific [place] Urine Protein Urine Glucose (UA) Urine Ketones Urine Blood Urine Nitrite Ur Leukocyte Esterase Urine RBC Urine WBC Ur Squamous Epith Cells Calcium Oxalate Crystal Urine Bacteria Hyaline Casts Urine Mucus CSF Tube Number CSF Volume CSF Appearance CSF Color CSF WBC CSF RBC CSF Lymphocytes CSF Monocytes % CSF Appearance (b) CSF Glucose CSF Total Protein COVID-19 (MARC) COVID-19 Clin Com 01/02/21 01/02/21 01/02/21 14:24 14:24 17:37 MCV MCH MCHC RDW Plt Count MPV Immature Gran % (Auto) Neut % (Auto) Lymph % (Auto) [place] % (Auto) Eos % (Auto) Baso % (Auto) Lymph # (Auto) [place] # (Auto) Eos # (Auto) Baso # (Auto) Abs Immat Gran (auto) Absolute Neuts (auto) Absolute Nucleated RBC Nucleated RBC % (auto) Anion Gap Estim Creat Clear Calc Estimated GFR Random Glucose Lactic Acid Lactic Acid Fup @ 2Hr Calcium Magnesium 2.4 Total Bilirubin 1.2 H Direct Bilirubin 0.8 H AST 93 H ALT 67 H Alkaline Phosphatase 114 Total Creatine Kinase Troponin I High Sens 6.7 Total Protein 9.0 H Albumin 3.4 L Lipase Urine Color Urine Appearance Urine pH Ur Specific [place] Urine Protein Urine Glucose (UA) Urine Ketones Urine Blood Urine Nitrite Ur Leukocyte Esterase Urine RBC Urine WBC Ur Squamous Epith Cells Calcium Oxalate Crystal Urine Bacteria Hyaline Casts Urine Mucus CSF Tube Number CSF Volume CSF Appearance CSF Color CSF WBC CSF RBC CSF Lymphocytes CSF Monocytes % CSF Appearance (b) CSF Glucose CSF Total Protein COVID-19 (MARC) Negative COVID-19 Luristic Com See Note 01/02/21 01/02/21 01/02/21 17:37 17:37 21:02 MCV MCH MCHC RDW Plt Count MPV Immature Gran % (Auto) Neut % (Auto) Lymph % (Auto) [place] % (Auto) Eos % (Auto) Baso % (Auto) Lymph # (Auto) [place] # (Auto) Eos # (Auto) Baso # (Auto) Abs Immat Gran (auto) Absolute Neuts (auto) Absolute Nucleated RBC Nucleated RBC % (auto) Anion Gap Estim Creat Clear Calc Estimated GFR Random Glucose Lactic Acid Lactic Acid Fup @ 2Hr 1.8 Calcium Magnesium Total Bilirubin Direct Bilirubin AST ALT Alkaline Phosphatase Total Creatine Kinase Troponin I High Sens Total Protein Albumin Lipase Urine Color DARK YELLOW Urine Appearance CLEAR Urine pH 6.0 Ur Specific [place] 1.025 Urine Protein 2+ H Urine Glucose (UA) NEG Urine Ketones NEG Urine Blood TRACE Urine Nitrite NEG Ur Leukocyte Esterase NEG Urine RBC 1-4 Urine WBC 0-2 Ur Squamous Epith Cells TRACE Calcium Oxalate Crystal TRACE Urine Bacteria TRACE Hyaline Casts 1-4 Urine Mucus TRACE CSF Tube Number 1 CSF Volume 2.0 CSF Appearance CLEAR CSF Color COLORLESS CSF WBC 16 H* CSF RBC 112 CSF Lymphocytes 98 CSF Monocytes % 2 CSF Appearance (b) CSF Glucose CSF Total Protein COVID-19 (MARC) COVID-19 Clin Com 01/02/21 01/02/21 21:02 21:02 MCV MCH MCHC RDW Plt Count MPV Immature Gran % (Auto) Neut % (Auto) Lymph % (Auto) [place] % (Auto) Eos % (Auto) Baso % (Auto) Lymph # (Auto) [place] # (Auto) Eos # (Auto) Baso # (Auto) Abs Immat Gran (auto) Absolute Neuts (auto) Absolute Nucleated RBC Nucleated RBC % (auto) Anion Gap Estim Creat Clear Calc Estimated GFR Random Glucose Lactic Acid Lactic Acid Fup @ 2Hr Calcium Magnesium Total Bilirubin Direct Bilirubin AST ALT Alkaline Phosphatase Total Creatine Kinase Troponin I High Sens Total Protein Albumin Lipase Urine Color Urine Appearance Urine pH Ur Specific [place] Urine Protein Urine Glucose (UA) Urine Ketones Urine Blood Urine Nitrite Ur Leukocyte Esterase Urine RBC Urine WBC Ur Squamous Epith Cells Calcium Oxalate Crystal Urine Bacteria Hyaline Casts Urine Mucus CSF Tube Number 4 2 CSF Volume 0.5 CSF Appearance CLEAR CSF Color COLORLESS CSF WBC 33 H* CSF RBC 7 CSF Lymphocytes 99 CSF Monocytes % 1 CSF Appearance (b) Clear, Colorless CSF Glucose 80 CSF Total Protein 79.9 H COVID-19 (M[facility]) COVID-19 Clin Com Imaging Radiologist's Impressions: Impressions Cervical Spine CT 01/02/21 14:05 IMPRESSION: No acute intracranial process seen. Mild straightening of cervical lordosis without any underlying fracture, dislocation or subluxation. There is exaggerated thoracic kyphosis. Diffuse centrilobular emphysema. There is right basilar atelectasis or scarring. No effusion or pleural thickening. Chest CT 01/02/21 14:05 IMPRESSION: No acute intracranial process seen. Mild straightening of cervical lordosis without any underlying fracture, dislocation or subluxation. There is exaggerated thoracic kyphosis. Diffuse centrilobular emphysema. There is right basilar atelectasis or scarring. No effusion or pleural thickening. Head CT 01/02/21 14:05 IMPRESSION: No acute intracranial process seen. Mild straightening of cervical lordosis without any underlying fracture, dislocation or subluxation. There is exaggerated thoracic kyphosis. Diffuse centrilobular emphysema. There is right basilar atelectasis or scarring. No effusion or pleural thickening. Abdomen Ultrasound 01/02/21 15:07 IMPRESSION: 1. Hepatic steatosis. No focal parenchymal lesion or intrahepatic ductal dilatation. 2. Gallstone, possible dependent sludge in gallbladder. Mild thickening gallbladder wall may be related to limited distention. No hyperemia on color Doppler. Common duct unremarkable. Abdomen/Pelvis CT 01/02/21 18:55 IMPRESSION: A cause for the patient's underlying sepsis is not seen. Incidental note made of COPD, cholelithiasis, large stool burden and atherosclerotic changes in the aorta. Assessment and Plan (1) Encephalitis, viral: Status: Acute (2) Seizure: Status: Acute 65-year-old male who is sent from care home for witnessed seizure # seizure - no recurrence in the hospital - possibly secondary to viral encephalitis - will obtain EEG - MRI of the brain - neurology consult # encephalitis, viral - concern for encephalitis as lumbar puncture showed increased leukocytes as well as protein in the setting of history of HIV - pending Gram stain - afebrile, no leukocytosis - patient prophylactically treated with acyclovir - infectious disease consulted # hypertension - stable - continue amlodipine and hydrochlorothiazide # history of bipolar disorder - continue olanzapine and mirtazapine # history of dementia - continue haloperidol # history of HIV - continue antiviral - will obtain CD4 count in the setting of possible encephalitis DVT prophylaxis: Lovenox Quality Stroke Does the patient have a stroke diagnosis?: No VTE Prior VTE?: No VTE Risk Level:: Medical - moderate - high VTE Device Contraindication: Treatment Not Indicated VTE Drug Contraindication: N/A - Med Ordered
[2021-01-03 07:07] LABS: MANUAL DIFF FLAG NO
[2021-01-03 07:09] LABS: Basophils Percent Auto 0.3 % (0-2); Eosinophils Absolute Auto 0.1 X10*3/uL (0.0-0.4); Eosinophils Percent Auto 1.2 % (0-4); Hematocrit 46.1 % (42-52); Hemoglobin 15.6 g/dl (14.0-18.0); Imm Gran Abs Auto 0.04 X10*3/uL (0.00-0.03); Imm Gran Pct Auto 0.5 % (0.0-0.4); Lymphocytes Absolute Auto 4.1 X10*3/uL (1.2-4.9); Mean Corpuscular HGB Conc 33.8 g/dl (31.0-36.0); Mean Corpuscular Volume 91.7 fL (80-98); Mean Platelet Volume 8.7 fL (9.4-12.4); Monocytes Absolute Auto 0.6 X10*3/uL (0.1-1.2); Monocytes Percent Auto 8.2 % (2-11); Neutrophils Absolute Auto 2.6 X10*3/uL (2.0-8.3); Neutrophils Percent Auto 34.8 % (45-73); Platelet Count 196 X10*3/uL (160-400); Red Blood Count 5.03 X10*6/uL (4.60-5.80); Red Cell Distribution Width 12.8 % (11.0-16.0); White Blood Count 7.4 X10*3/uL (4.8-10.8)
[2021-01-03 07:49] LABS: Anion Gap 13 (12-20); Blood Urea Nitrogen 9 mg/dL (9-16); Calcium 8.5 mg/dL (8.4-10.2); Carbon Dioxide 23 mmol/L (22-29); Chloride 107 mmol/L (96-108); Creatinine Clr Calc Pharmacy 100.9; Estimated Glomerular Filt Rate > 60; Glucose Random 87 mg/dL (60-115); Sodium 139 mmol/L (135-145)
[2021-01-03] MEDS: amLODIPine Besylate 2.5 MG TABLET PO (10:20)
[2021-01-03] MEDS: hydroCHLOROthiazide 12.5 MG TABLET PO (10:20)
[2021-01-03] MEDS: OLANZapine 10 MG TABLET 20 MG PO (10:21)
--- NOTE | 2021-01-03 10:25 | PC.NURSE ---
BLUNGER LOADER TO RETURN CALL TO THIS RN FOR NURSE TO NURSE REPORT.
--- NOTE | 2021-01-03 10:33 | PC.NURSE ---
NURSE TO NURSED GIVEN TO JOSE RN, PT AWARE OF PLAN OF CARE FOR ADMISSION TO HOSP
[2021-01-03] MEDS: Enoxaparin Sodium 40 MG/0.4 ML SYRINGE SUBCUT (10:46)
--- NOTE | 2021-01-03 11:23 | P.PNIM_ITS ---
Subjective Subjective Date of Service: 01/03/21 Interval History: the patient was seen and evaluated this morning Laying in bed, feels comfortable overall, not in distress no reported fever, chills or shortness of breath Has sinus tachycardia No reported other overnight events. Systemic review: denies complaints but looks altered mentation and not clear about answers Physical Exam Vital Signs: Vital Signs: Last Vital Signs Temp 98.1 F 01/03/21 10:48 Pulse 120 H 01/03/21 10:48 Resp 20 01/03/21 10:48 BP 144/96 H 01/03/21 10:48 Pulse Ox 94 01/03/21 10:48 Body Mass Index 19.6 Const: Other: Constitutional : Alert, not in distress Neck : Normal inspection, Supple Cardiovascular : RRR, S1 S2, no lower extremity edema Respiratory : fair bilateral air entry, basal bilateral fine crackles, no wheezes or rhonchi Gastrointestinal: soft, lax, Normal bowel sounds, Non tender Skin : Warm, Dry Neurological : Alert & disoriented, almost non verbal, No focal deficit Objective Data Current Medications Generic Name Dose Route Start Last Admin Trade Name Lincolnq PRN Reason Stop Dose Admin Acetaminophen 650 mg 01/03/21 00:13 Acetaminophen 325 Mg Tablet PO Q6H PRN Pain, Mild (Pain Scale 1-3) Amlodipine Besylate 2.5 mg 01/03/21 09:00 01/03/21 10:20 Amlodipine Besylate 2.5 Mg Tablet PO 2.5 mg DAILY CARINE Administration Protocol Docusate Sodium 100 mg 01/03/21 00:13 Docusate Sodium 100 Mg Capsule PO DAILY PRN Constipation Enoxaparin Sodium 40 mg 01/03/21 10:00 01/03/21 10:46 Enoxaparin Sodium 40 Mg/0.4 Ml Syringe SUBCUT 40 mg Q24H CARINE Administration Ergocalciferol 1,250 mcg 01/03/21 00:13 Ergocalciferol (Vitamin D2) 1,250 Mcg Capsule PO MO CARINE Haloperidol Decanoate 50 mg 01/26/21 10:00 Haloperidol Decanoate 50 Mg/Ml Ampul IM Q28D CARINE Hydrochlorothiazide 12.5 mg 01/03/21 09:00 01/03/21 10:20 Hydrochlorothiazide 12.5 Mg Tablet PO 12.5 mg DAILY CARINE Administration Protocol Acyclovir Sodium 771.11 mg/ 265.4222 mls @ 252.984 mls/hr 01/03/21 08:00 01/03/21 10:44 Dextrose IV Infused Q8H [facility] Infusion Mirtazapine 15 mg 01/03/21 21:00 Mirtazapine 15 Mg Tablet PO BEDTIME [facility] Non-Formulary Medication 1 tab 01/03/21 09:00 Gvmglksuyn-Obpxowit-Cwrsen Ala PO DAILY CARINE Olanzapine 20 mg 01/03/21 09:00 01/03/21 10:21 Olanzapine 10 Mg Tablet PO 20 mg DAILY CARINE Administration Ondansetron HCl 4 mg 01/03/21 00:13 Ondansetron Hcl 4 Mg/2 Ml Vial IVPUSH Q8H PRN Nausea and Vomiting Pharmacy Consult 1 each 01/02/21 14:05 Consult Rx Perform Med Rec MISCELLANE ONCE PRN Consult order Sodium Chloride 3 ml 01/03/21 00:13 01/03/21 09:15 0.9 % Sodium Chloride Flush 3 Ml Syringe IVFLUSH 3 ml QSHIFT CARINE Administration Labs CBC & Chem 7: 01/03/21 07:04 01/03/21 07:04 Labs: Laboratory Results - last 24 hr 01/02/21 01/02/21 01/02/21 14:24 14:24 14:24 MCV 92.7 MCH 30.5 MCHC 32.9 RDW 13.0 Plt Count 237 MPV 9.4 Immature Gran % (Auto) 1.0 H Neut % (Auto) 48.9 Lymph % (Auto) 40.6 H [place] % (Auto) 8.0 Eos % (Auto) 1.0 Baso % (Auto) 0.5 Lymph # (Auto) 2.5 [place] # (Auto) 0.5 Eos # (Auto) 0.1 Baso # (Auto) 0.0 Abs Immat Gran (auto) 0.06 H Absolute Neuts (auto) 3.0 Absolute Nucleated RBC 0.000 Nucleated RBC % (auto) 0.0 Anion Gap 13 Estim Creat Clear Calc 72.6 Estimated GFR > 60 Random Glucose 202 H Lactic Acid 2.6 H* Lactic Acid Fup @ 2Hr Calcium 9.7 Magnesium Total Bilirubin Direct Bilirubin AST ALT Alkaline Phosphatase Total Creatine Kinase 72 Troponin I High Sens Total Protein Albumin Lipase 44 Urine Color Urine Appearance Urine pH Ur Specific [place] Urine Protein Urine Glucose (UA) Urine Ketones Urine Blood Urine Nitrite Ur Leukocyte Esterase Urine RBC Urine WBC Ur Squamous Epith Cells Calcium Oxalate Crystal Urine Bacteria Hyaline Casts Urine Mucus CSF Tube Number CSF Volume CSF Appearance CSF Color CSF WBC CSF RBC CSF Lymphocytes CSF Monocytes % CSF Appearance (b) CSF Glucose CSF Total Protein CSF Mening/Enceph PCR COVID-19 ([facility]) COVID-19 Clin Com 01/02/21 01/02/21 01/02/21 14:24 14:24 17:37 MCV MCH MCHC RDW Plt Count MPV Immature Gran % (Auto) Neut % (Auto) Lymph % (Auto) [place] % (Auto) Eos % (Auto) Baso % (Auto) Lymph # (Auto) [place] # (Auto) Eos # (Auto) Baso # (Auto) Abs Immat Gran (auto) Absolute Neuts (auto) Absolute Nucleated RBC Nucleated RBC % (auto) Anion Gap Estim Creat Clear Calc Estimated GFR Random Glucose Lactic Acid Lactic Acid Fup @ 2Hr Calcium Magnesium 2.4 Total Bilirubin 1.2 H Direct Bilirubin 0.8 H AST 93 H ALT 67 H Alkaline Phosphatase 114 Total Creatine Kinase Troponin I High Sens 6.7 Total Protein 9.0 H Albumin 3.4 L Lipase Urine Color Urine Appearance Urine pH Ur Specific [place] Urine Protein Urine Glucose (UA) Urine Ketones Urine Blood Urine Nitrite Ur Leukocyte Esterase Urine RBC Urine WBC Ur Squamous Epith Cells Calcium Oxalate Crystal Urine Bacteria Hyaline Casts Urine Mucus CSF Tube Number CSF Volume CSF Appearance CSF Color CSF WBC CSF RBC CSF Lymphocytes CSF Monocytes % CSF Appearance (b) CSF Glucose CSF Total Protein CSF Mening/Enceph PCR COVID-19 ([facility]) Negative COVID-19 Clin Com See Note 01/02/21 01/02/21 01/02/21 17:37 17:37 21:02 MCV MCH MCHC RDW Plt Count MPV Immature Gran % (Auto) Neut % (Auto) Lymph % (Auto) [place] % (Auto) Eos % (Auto) Baso % (Auto) Lymph # (Auto) [place] # (Auto) Eos # (Auto) Baso # (Auto) Abs Immat Gran (auto) Absolute Neuts (auto) Absolute Nucleated RBC Nucleated RBC % (auto) Anion Gap Estim Creat Clear Calc Estimated GFR Random Glucose Lactic Acid Lactic Acid Fup @ 2Hr 1.8 Calcium Magnesium Total Bilirubin Direct Bilirubin AST ALT Alkaline Phosphatase Total Creatine Kinase Troponin I High Sens Total Protein Albumin Lipase Urine Color DARK YELLOW Urine Appearance CLEAR Urine pH 6.0 Ur Specific [place] 1.025 Urine Protein 2+ H Urine Glucose (UA) NEG Urine Ketones NEG Urine Blood TRACE Urine Nitrite NEG Ur Leukocyte Esterase NEG Urine RBC 1-4 Urine WBC 0-2 Ur Squamous Epith Cells TRACE Calcium Oxalate Crystal TRACE Urine Bacteria TRACE Hyaline Casts 1-4 Urine Mucus TRACE CSF Tube Number 1 CSF Volume 2.0 CSF Appearance CLEAR CSF Color COLORLESS CSF WBC 16 H* CSF RBC 112 CSF Lymphocytes 98 CSF Monocytes % 2 CSF Appearance (b) CSF Glucose CSF Total Protein CSF Mening/Enceph PCR COVID-19 ([facility]) COVID-19 Clin Com 01/02/21 01/02/21 01/02/21 21:02 21:02 21:02 MCV MCH MCHC RDW Plt Count MPV Immature Gran % (Auto) Neut % (Auto) Lymph % (Auto) [place] % (Auto) Eos % (Auto) Baso % (Auto) Lymph # (Auto) [place] # (Auto) Eos # (Auto) Baso # (Auto) Abs Immat Gran (auto) Absolute Neuts (auto) Absolute Nucleated RBC Nucleated RBC % (auto) Anion Gap Estim Creat Clear Calc Estimated GFR Random Glucose Lactic Acid Lactic Acid Fup @ 2Hr Calcium Magnesium Total Bilirubin Direct Bilirubin AST ALT Alkaline Phosphatase Total Creatine Kinase Troponin I High Sens Total Protein Albumin Lipase Urine Color Urine Appearance Urine pH Ur Specific [place] Urine Protein Urine Glucose (UA) Urine Ketones Urine Blood Urine Nitrite Ur Leukocyte Esterase Urine RBC Urine WBC Ur Squamous Epith Cells Calcium Oxalate Crystal Urine Bacteria Hyaline Casts Urine Mucus CSF Tube Number 4 2 CSF Volume 0.5 CSF Appearance CLEAR CSF Color COLORLESS CSF WBC 33 H* CSF RBC 7 CSF Lymphocytes 99 CSF Monocytes % 1 CSF Appearance (b) Clear, Colorless CSF Glucose 80 CSF Total Protein 79.9 H CSF Mening/Enceph PCR SEE NOTE COVID-19 ([facility]) COVID-19 Clin Com 01/03/21 01/03/21 07:04 07:04 MCV 91.7 MCH 31.0 MCHC 33.8 RDW 12.8 Plt Count 196 MPV 8.7 L Immature Gran % (Auto) 0.5 H Neut % (Auto) 34.8 L Lymph % (Auto) 55.0 H [place] % (Auto) 8.2 Eos % (Auto) 1.2 Baso % (Auto) 0.3 Lymph # (Auto) 4.1 [place] # (Auto) 0.6 Eos # (Auto) 0.1 Baso # (Auto) 0.0 Abs Immat Gran (auto) 0.04 H Absolute Neuts (auto) 2.6 Absolute Nucleated RBC 0.000 Nucleated RBC % (auto) 0.0 Anion Gap 13 Estim Creat Clear Calc 100.9 Estimated GFR > 60 Random Glucose 87 D Lactic Acid Lactic Acid Fup @ 2Hr Calcium 8.5 D Magnesium Total Bilirubin Direct Bilirubin AST ALT Alkaline Phosphatase Total Creatine Kinase Troponin I High Sens Total Protein Albumin Lipase Urine Color Urine Appearance Urine pH Ur Specific [place] Urine Protein Urine Glucose (UA) Urine Ketones Urine Blood Urine Nitrite Ur Leukocyte Esterase Urine RBC Urine WBC Ur Squamous Epith Cells Calcium Oxalate Crystal Urine Bacteria Hyaline Casts Urine Mucus CSF Tube Number CSF Volume CSF Appearance CSF Color CSF WBC CSF RBC CSF Lymphocytes CSF Monocytes % CSF Appearance (b) CSF Glucose CSF Total Protein CSF Mening/Enceph PCR COVID-19 ([facility]) COVID-19 Clin Com Microbiology Microbiology Results: Microbiology 01/02/21 21:02 Gram Stain - Final Cerebrospinal Fluid CSF Examination - Final Fluid Description - Final CSF Culture - Preliminary No growth after 1 day Assessment and Plan Assessment and Plan: 65-year-old male who is [facility] witnessed seizure # seizure - no recurrence in the hospital - possibly secondary to viral encephalitis - will obtain EEG - MRI of the brain - neurology consult # encephalitis, viral - concern for encephalitis as lumbar puncture showed increased leukocytes as well as protein in the setting of history of HIV - pending Gram stain - afebrile, no leukocytosis - patient prophylactically treated with acyclovir - infectious disease consulted # hypertension - stable - continue amlodipine and hydrochlorothiazide # history of bipolar disorder - continue olanzapine and mirtazapine # history of dementia - continue haloperidol # history of HIV - continue antiviral - will obtain CD4 count in the setting of possible encephalitis DVT prophylaxis: Lovenox Quality Stroke Does the patient have a stroke diagnosis?: No VTE Prior VTE?: No VTE Risk Level:: Medical - moderate - high VTE Device Contraindication: Treatment Not Indicated VTE Drug Contraindication: N/A - Med Ordered
--- NOTE | 2021-01-03 12:43 | PC.NURSE ---
Addendum entered by Maddi Mccabe RN 01/03/21 13:15: [facility] CALLED AGAIN AND SPOKE WITH CASSIE POWER. SHE STATES PATIENT IS ALERT TO SELF, SLOW TO ANSWER AND CAN HAVE ELABORATE STORIES. TAKES MEDICATIONS JUST FINE, BUT CAN POCKET THEM IN HIS CHEEKS. SO CHECK HIS MOUTH. [place] P[place] [facility] [place] BEING TRANSPORTED TO [place] [facility] Original Note: CLEARED FOR MRI AND PERMISSION FROM MD TO REMOVE TELEPACK FOR MRI. EEG TO BE PERFORMED TOMORROW 01/04/21 PER NEURO DEPARTMENT. AWAITING A CALL BACK FROM [facility] ([phone]) ON BASELINE AND ASSIST IN CARE INFORMATION. AWAITING A CALL BACK FROM [facility] [place] TO GIVE REPORT FOR TRANSFER POST MRI.
--- NOTE | 2021-01-03 13:26 | P.CNID_ITS ---
History of Present Illness Data of Consult Service Date: 01/03/21 Requesting physician: Aditi John Primary Care Provider: Tom Elizondo MD [facility] Reason for consult: seizures,mental status changes He presents with reported tonic clonic seizure at facility He has no evidence of fever or rash or other complaints mentioned preceding this He has no fever at this time Review of Systems Review of Systems: Yes Unobtainable due to mental condition PMFSH Past Medical History Medical History (Updated 01/04/21 @ 15:22 by Aditi John MD) Bipolar 1 disorder Dementia Hepatitis C HIV (human immunodeficiency virus infection) HTN (hypertension) Liver failure Family History Family history: reviewed and not pertinent Social History Social History Household Members: Unknown / Unable to assess and Other Housing: [facility] Other:: [facility] Do you presently have visiting nurse or other home services: No Unable to assess alcohol history related to: Unknown Patient Tobacco Use Status: Tobacco use Unknown Use of substances other than those prescribed or required for medical reasons: Unknown Substance Use Type: Former Substance User Currently Displaying Signs/Symptoms of Drug Intoxication Withdrawal: No Are you DNR?: No Advance Directives: Yes Advance Directives Information Provided: Yes Advance Directives on File: Yes Advance Directives Date on File: 04/18/17 Do you have thoughts of harming others: None Do you have a plan to hurt others: No Plan Recently lost weight without trying: Unsure Nutrition Risks: No Nutritional Risk and On aspiration precautions service: No Current occupational status: disabled Meds Allergies Allergy/AdvReac Type Severity Reaction Status Date / Time No Known Allergies Allergy Unverified 01/28/20 16:07 [No Known Allergies*] Active Medications: Current Medications Generic Name Dose Route Start Last Admin Trade Name Freq PRN Reason Stop Dose Admin Acetaminophen 650 mg 01/03/21 00:13 Acetaminophen 325 Mg Tablet PO Q6H PRN Pain, Mild (Pain Scale 1-3) Amlodipine Besylate 2.5 mg 01/03/21 09:00 01/03/21 10:20 Amlodipine Besylate 2.5 Mg Tablet PO 2.5 mg DAILY CARINE Administration Protocol Docusate Sodium 100 mg 01/03/21 00:13 Docusate Sodium 100 Mg Capsule PO DAILY PRN Constipation Enoxaparin Sodium 40 mg 01/03/21 10:00 01/03/21 10:46 Enoxaparin Sodium 40 Mg/0.4 Ml Syringe SUBCUT 40 mg Q24H CARINE Administration Ergocalciferol 1,250 mcg 01/30/21 09:00 Ergocalciferol (Vitamin D2) 1,250 Mcg Capsule PO MO [facility] Haloperidol Decanoate 50 mg 01/26/21 10:00 Haloperidol Decanoate 50 Mg/Ml Ampul IM Q28D [facility] Hydrochlorothiazide 12.5 mg 01/03/21 09:00 01/03/21 10:20 Hydrochlorothiazide 12.5 Mg Tablet PO 12.5 mg DAILY [facility] Administration Protocol Mirtazapine 15 mg 01/03/21 21:00 Mirtazapine 15 Mg Tablet PO BEDTIME [facility] Pat Own Med (Odefsey 1 each 01/03/21 13:00 Emtricitab-Rilpivir PO -Tenofo Ala 200-25- DAILY CARINE 25 Mg Tablet) Olanzapine 20 mg 01/03/21 09:00 01/03/21 10:21 Olanzapine 10 Mg Tablet PO 20 mg DAILY [facility] Administration Ondansetron HCl 4 mg 01/03/21 00:13 Ondansetron Hcl 4 Mg/2 Ml Vial IVPUSH Q8H PRN Nausea and Vomiting Pharmacy Consult 1 each 01/02/21 14:05 Consult Rx Perform Med Rec MISCELLANE ONCE PRN Consult order Sodium Chloride 3 ml 01/03/21 00:13 01/03/21 09:15 0.9 % Sodium Chloride Flush 3 Ml Syringe IVFLUSH 3 ml QSHIFT CARINE Administration Home Medications Medication Instructions Recorded Confirmed Last Taken Type amlodipine 2.5 mg tablet 1 tab PO DAILY 01/02/21 01/02/21 01/02/21 History emtricitabine 200 mg-rilpivirine 1 tab PO DAILY 01/02/21 01/02/21 01/02/21 History 25 mg-tenofovir alafenam 25 mg tablet (Abram) ergocalciferol (vitamin D2) 1,250 1 cap PO MO 01/02/21 01/02/21 01/02/21 History mcg (50,000 unit) capsule haloperidol decanoate 50 mg/mL 50 mg IM Q28D 01/02/21 01/02/21 12/29/20 History intramuscular solution hydrochlorothiazide 12.5 mg capsule 1 cap PO DAILY 01/02/21 01/02/21 01/02/21 History mirtazapine 15 mg tablet 1 tab PO BEDTIME 01/02/21 01/02/21 01/01/21 History olanzapine 20 mg tablet 1 tab PO DAILY 01/02/21 01/02/21 01/02/21 History Physical Exam Vital Signs: Vital Signs: Last Vital Signs Temp 98.1 F 01/03/21 10:48 Pulse 116 H 01/03/21 12:00 Resp 22 H 01/03/21 12:00 BP 135/88 01/03/21 12:00 Pulse Ox 94 01/03/21 10:48 Body Mass Index 19.6 Const: General: cooperative Nutritional Appearance: average body habitus Orientation/consciousness: oriented to person HENMT: Mouth: Normal oral and palatal mucosa present Eyes: General: appearance normal, both eyes and all related structures Resp: Effort & Inspection: normal respiratory effort Cardio: Rate: regular rate Rhythm: regular rhythm GI: Palpation (GI): Soft to palpation and nontender : General: Yes no CVA tenderness Back/Spine/Pelvis: Back: no CVA tenderness Skin: General skin exam: no rashes or lesions noted Neuro: General: oriented to person and CN's II-XI intact bilaterally Results Labs CBC & Chem 7: 01/05/21 05:49 01/05/21 05:49 Labs: Short CBC 01/02/21 01/03/21 Range/Units 14:24 07:04 WBC 6.2 7.4 (4.8-10.8) X10*3/uL Hgb 17.0 15.6 (14.0-18.0) g/dl Hct 51.7 46.1 (42-52) % Plt Count 237 196 (160-400) X10*3/uL BMP 01/02/21 01/03/21 14:24 07:04 Sodium 141 139 Potassium 4.4 4.0 Chloride 106 107 Carbon Dioxide 26 23 BUN 13 9 Creatinine 1.00 0.72 Calcium 9.7 8.5 D Cardiac Enzymes 01/02/21 Range/Units 14:24 Total Creatine Kinase 72 (38-174) U/L Liver Function 01/02/21 Range/Units 14:24 Total Bilirubin 1.2 H (0.0-1.0) mg/dL Direct Bilirubin 0.8 H (0.0-0.5) mg/dL AST 93 H (5-37) U/L ALT 67 H (0-40) U/L Alkaline Phosphatase 114 (39-117) U/L Albumin 3.4 L (3.5-5.0) g/dL Urine 01/02/21 Range/Units 17:37 Urine Color DARK YELLOW Urine Appearance CLEAR Urine pH 6.0 (5.0-8.0) Ur Specific [place] 1.025 (1.005-1.025) Urine Protein 2+ H (NEG-TRACE) MG/DL Urine Glucose (UA) NEG (NEG) MG/DL Microbiology Microbiology Results: Microbiology 01/02/21 21:02 Cerebrospinal Fluid Gram Stain - Final 01/02/21 21:02 Cerebrospinal Fluid CSF Examination - Final 01/02/21 21:02 Cerebrospinal Fluid Fluid Description - Final 01/02/21 21:02 Cerebrospinal Fluid CSF Culture - Preliminary No growth after 1 day Assessment and Plan (1) Seizure: Status: Acute He has seizure and has risk factors including dementia possibly related to HIV and medication He has negative CSF panel for meningitis including herpes virus He has less likely [place]/EEE (2) HIV (human immunodeficiency virus infection): Status: Acute Neurology evaluation EEG Stop Acyclovir Check [place],EEE
--- NOTE | 2021-01-03 13:46 | PM.NEUROCN ---
History of Present Illness Data of Consult Service Date: 01/03/21 Primary Care Provider: Tom Elizondo MD HPI Reason for consult: Witnessed seizure followed by unresponsiveness This is a 65-year-old man with a history of HIV who is a assisted resident was witnessed to have a generalized seizure and remained unresponsive and brought to the ER where he had a negative CT scan of the brain and a lumbar puncture and that was consistent with encephalitis with the 35 white cells and a protein of 79. Cultures are pending. Herpes PCR is pending. He was started on the acyclovir her height intravenously. The patient is poorly responsive and unable to provide any information. Review of Systems Review of Systems: Yes Unobtainable due to mental condition and Unobtainable due to mental status PMFSH Past Medical History Medical History (Updated 01/03/21 @ 13:31 by Karen Coelho MD) Bipolar 1 disorder Dementia Hepatitis C HIV (human immunodeficiency virus infection) HTN (hypertension) Liver failure Family History Family history: reviewed and not pertinent Social History Social History Household Members: Unknown / Unable to assess and Other Housing: Intermediate Housing Other:: [facility] Do you presently have visiting nurse or other home services: No Unable to assess alcohol history related to: Unknown Patient Tobacco Use Status: Tobacco use Unknown Use of substances other than those prescribed or required for medical reasons: Unknown Substance Use Type: Former Substance User Are you DNR?: No Advance Directives: Yes Advance Directives Information Provided: Yes Advance Directives on File: Yes Advance Directives Date on File: 04/18/17 Recently lost weight without trying: Unsure Nutrition Risks: No Nutritional Risk and On aspiration precautions Meds Allergies Allergy/AdvReac Type Severity Reaction Status Date / Time No Known Allergies Allergy Unverified 01/28/20 16:07 [No Known Allergies*] Active Medications: Current Medications Generic Name Dose Route Start Last Admin Trade Name Freq PRN Reason Stop Dose Admin Acetaminophen 650 mg 01/03/21 00:13 Acetaminophen 325 Mg Tablet PO Q6H PRN Pain, Mild (Pain Scale 1-3) Amlodipine Besylate 2.5 mg 01/03/21 09:00 01/03/21 10:20 Amlodipine Besylate 2.5 Mg Tablet PO 2.5 mg DAILY CARINE Administration Protocol Docusate Sodium 100 mg 01/03/21 00:13 Docusate Sodium 100 Mg Capsule PO DAILY PRN Constipation Enoxaparin Sodium 40 mg 01/03/21 10:00 01/03/21 10:46 Enoxaparin Sodium 40 Mg/0.4 Ml Syringe SUBCUT 40 mg Q24H CARINE Administration Ergocalciferol 1,250 mcg 01/30/21 09:00 Ergocalciferol (Vitamin D2) 1,250 Mcg Capsule PO MO [facility] Haloperidol Decanoate 50 mg 01/26/21 10:00 Haloperidol Decanoate 50 Mg/Ml Ampul IM Q28D [facility] Hydrochlorothiazide 12.5 mg 01/03/21 09:00 01/03/21 10:20 Hydrochlorothiazide 12.5 Mg Tablet PO 12.5 mg DAILY [facility] Administration Protocol Mirtazapine 15 mg 01/03/21 21:00 Mirtazapine 15 Mg Tablet PO BEDTIME [facility] Pat Own Med (Odefsey 1 each 01/03/21 13:00 Emtricitab-Rilpivir PO -Tenofo Ala 200-25- DAILY CARINE 25 Mg Tablet) Olanzapine 20 mg 01/03/21 09:00 01/03/21 10:21 Olanzapine 10 Mg Tablet PO 20 mg DAILY [facility] Administration Ondansetron HCl 4 mg 01/03/21 00:13 Ondansetron Hcl 4 Mg/2 Ml Vial IVPUSH Q8H PRN Nausea and Vomiting Pharmacy Consult 1 each 01/02/21 14:05 Consult Rx Perform Med Rec MISCELLANE ONCE PRN Consult order Sodium Chloride 3 ml 01/03/21 00:13 01/03/21 09:15 0.9 % Sodium Chloride Flush 3 Ml Syringe IVFLUSH 3 ml QSHIFT CARINE Administration Home Medications Medication Instructions Recorded Confirmed Last Taken Type amlodipine 2.5 mg tablet 1 tab PO DAILY 01/02/21 01/02/21 01/02/21 History emtricitabine 200 mg-rilpivirine 1 tab PO DAILY 01/02/21 01/02/21 01/02/21 History 25 mg-tenofovir alafenam 25 mg tablet (Odefsey) ergocalciferol (vitamin D2) 1,250 1 cap PO MO 01/02/21 01/02/21 01/02/21 History mcg (50,000 unit) capsule haloperidol decanoate 50 mg/mL 50 mg IM Q28D 01/02/21 01/02/21 12/29/20 History intramuscular solution hydrochlorothiazide 12.5 mg capsule 1 cap PO DAILY 01/02/21 01/02/21 01/02/21 History mirtazapine 15 mg tablet 1 tab PO BEDTIME 01/02/21 01/02/21 01/01/21 History olanzapine 20 mg tablet 1 tab PO DAILY 01/02/21 01/02/21 01/02/21 History Physical Exam Vital Signs: Vital Signs: Last Vital Signs Temp 98.1 F 01/03/21 10:48 Pulse 116 H 01/03/21 12:00 Resp 22 H 01/03/21 12:00 BP 135/88 01/03/21 12:00 Pulse Ox 94 01/03/21 10:48 Body Mass Index 19.6 Const: General: cooperative and no acute distress Nutritional Appearance: average body habitus HENMT: Mouth: Normal oral and palatal mucosa present Eyes: General: appearance normal, both eyes and all related structures Resp: Effort & Inspection: normal respiratory effort Auscultation: clear to auscultation bilaterally Cardio: Rate: regular rate Rhythm: regular rhythm GI: Palpation (GI): Soft to palpation and nontender Auscultation: normal bowel sounds : General: Yes no CVA tenderness Back/Spine/Pelvis: Back: no CVA tenderness Skin: General skin exam: no rashes or lesions noted Neuro: Other: Poorly responsive, but arousable. Does not verbalize or follow commands. Moves all 4 extremities to pain. Plantar responses are equivocal. Mild nuchal rigidity Extrem: General: Yes normal to inspection and Yes no pedal edema Results Labs CBC & Chem 7: 01/03/21 07:04 01/03/21 07:04 Labs: Short CBC 01/02/21 01/03/21 Range/Units 14:24 07:04 WBC 6.2 7.4 (4.8-10.8) X10*3/uL Hgb 17.0 15.6 (14.0-18.0) g/dl Hct 51.7 46.1 (42-52) % Plt Count 237 196 (160-400) X10*3/uL BMP 01/02/21 01/03/21 14:24 07:04 Sodium 141 139 Potassium 4.4 4.0 Chloride 106 107 Carbon Dioxide 26 23 BUN 13 9 Creatinine 1.00 0.72 Calcium 9.7 8.5 D Cardiac Enzymes 01/02/21 Range/Units 14:24 Total Creatine Kinase 72 (38-174) U/L Liver Function 01/02/21 Range/Units 14:24 Total Bilirubin 1.2 H (0.0-1.0) mg/dL Direct Bilirubin 0.8 H (0.0-0.5) mg/dL AST 93 H (5-37) U/L ALT 67 H (0-40) U/L Alkaline Phosphatase 114 (39-117) U/L Albumin 3.4 L (3.5-5.0) g/dL Urine 01/02/21 Range/Units 17:37 Urine Color DARK YELLOW Urine Appearance CLEAR Urine pH 6.0 (5.0-8.0) Ur Specific [place] 1.025 (1.005-1.025) Urine Protein 2+ H (NEG-TRACE) MG/DL Urine Glucose (UA) NEG (NEG) MG/DL Microbiology Microbiology Results: Microbiology 01/02/21 21:02 Cerebrospinal Fluid Gram Stain - Final 01/02/21 21:02 Cerebrospinal Fluid CSF Examination - Final 01/02/21 21:02 Cerebrospinal Fluid Fluid Description - Final 01/02/21 21:02 Cerebrospinal Fluid CSF Culture - Preliminary No growth after 1 day Assessment and Plan (1) Seizure: Status: Acute New-onset of seizures, etiology unclear, possibly related to his dementing illness versus encephalitis He has negative CSF panel for meningitis including herpes virus Recommend: EEG, MRI of the brain, Keppra 500 mg twice a day IV or already (2) HIV (human immunodeficiency virus infection): Status: Acute Neurology evaluation EEG Stop Acyclovir Check West Nile,EEE Procedures Date of Service Date of Service: 01/03/21
--- NOTE | 2021-01-03 14:08 | MHC.CLN ---
NUTRITION ADDED ENSURE 240 ML BID. STAFF REPORTED THAT TAKES AT FACILITY. PROVIDES 700 KCAL, 40 G PROTEIN.
[2021-01-03] MEDS: Docusate Sodium 100 MG CAPSULE PO ×2 (15:58→21:30)
[2021-01-03] MEDS: polyethylene glycoL 3350 17 GM POWD.PACK PO (15:59)
[2021-01-03] MEDS: levETIRAcetam in NaCl (iso-os) 500 MG/100 ML PIGGYBACK 400 MG IV (18:29)
[2021-01-03] MEDS: Mirtazapine 15 MG TABLET PO (21:30)
[2021-01-03] MEDS: Acetaminophen 325 MG TABLET 650 MG PO (23:16)
[2021-01-03 23:43] LABS: MANUAL DIFF FLAG NO
[2021-01-03 23:45] LABS: Basophils Percent Auto 0.4 % (0-2); Eosinophils Absolute Auto 0.1 X10*3/uL (0.0-0.4); Eosinophils Percent Auto 1.2 % (0-4); Hematocrit 48.5 % (42-52); Hemoglobin 16.1 g/dl (14.0-18.0); Imm Gran Abs Auto 0.04 X10*3/uL (0.00-0.03); Imm Gran Pct Auto 0.5 % (0.0-0.4); Lymphocytes Absolute Auto 4.4 X10*3/uL (1.2-4.9); Lymphocytes Percent Auto 58.8 % (20-40); Mean Corpuscular HGB Conc 33.2 g/dl (31.0-36.0); Mean Corpuscular Hemoglobin 30.6 pg (27.0-33.0); Mean Corpuscular Volume 92.2 fL (80-98); Mean Platelet Volume 9.1 fL (9.4-12.4); Monocytes Absolute Auto 0.6 X10*3/uL (0.1-1.2); Monocytes Percent Auto 8.6 % (2-11); Neutrophils Absolute Auto 2.3 X10*3/uL (2.0-8.3); Neutrophils Percent Auto 30.5 % (45-73); Platelet Count 192 X10*3/uL (160-400); Red Blood Count 5.26 X10*6/uL (4.60-5.80); Red Cell Distribution Width 12.8 % (11.0-16.0); White Blood Count 7.5 X10*3/uL (4.8-10.8)
[2021-01-04] VITALS (9 sets, daily range): BP systolic 117–163; BP diastolic 69–90; PULSE 106–127; RESP 17–20; TEMP 36.4–37.1; O2SAT 92–97; BMI 19.6; BMI 20.2
--- NOTE | 2021-01-04 | EEG_ITS ---
The waking background activity consists of low voltage fast frequencies seen diffusely, intermixed with low voltage, intermittent posterior 7 hertz. Drowsiness is characterized by diffuse theta slowing. No paroxysmal features are seen. IMPRESSION: This EEG is considered minimally abnormal due to mild scattered background slowing. This may correlate with mild diffuse cerebral dysfunction. No epileptiform discharges are seen. MD LUDY Wilson/STEPHEN / [id number]
[2021-01-04] MEDS: cefTRIAXone sodium 1 GM in 0.9 % Sodium Chloride 50 ML IV (00:27)
[2021-01-04] MEDS: vancomycin HCL 1,000 MG in 0.9 % Sodium Chloride 250 ML 270 MG IV (01:43)
[2021-01-04 02:00] LABS: Appearance Urine CLEAR; Color Urine YELLOW; Glucose Urine UA NEG (NEG); Leukocyte Esterase Urine NEG (NEG); Nitrite Urine NEG (NEG); Urine Blood 1+ (NEG); Urine Ketones NEG (NEG); Urine Protein TRACE MG/DL (NEG-TRACE)
[2021-01-04 02:10] LABS: Bacteria Urine 1+ /LPF; Squamous Epithelial Cell Urine 1+ /LPF; WBC Urine 0-2 /HPF (0-4)
[2021-01-04] MEDS: levETIRAcetam in NaCl (iso-os) 500 MG/100 ML PIGGYBACK 400 MG IV ×2 (05:41→17:31)
[2021-01-04 06:38] LABS: Hematocrit 48.5 % (42-52); Hemoglobin 15.9 g/dl (14.0-18.0); Mean Corpuscular HGB Conc 32.8 g/dl (31.0-36.0); Mean Corpuscular Hemoglobin 30.6 pg (27.0-33.0); Mean Corpuscular Volume 93.3 fL (80-98); Mean Platelet Volume 9.4 fL (9.4-12.4); Platelet Count 215 X10*3/uL (160-400); Red Cell Distribution Width 12.7 % (11.0-16.0); White Blood Count 7.6 X10*3/uL (4.8-10.8)
[2021-01-04 07:14] LABS: Anion Gap 10 (12-20); Blood Urea Nitrogen 11 mg/dL (9-16); C Reactive Protein 0.53 mg/dL (< or = 0.50); Calcium 8.6 mg/dL (8.4-10.2); Carbon Dioxide 30 mmol/L (22-29); Chloride 103 mmol/L (96-108); Estimated Glomerular Filt Rate > 60; Glucose Random 98 mg/dL (60-115); Potassium 4.2 mmol/L (3.3-5.1); Sodium 139 mmol/L (135-145)
--- NOTE | 2021-01-04 09:07 | MHC.CM.NN ---
CM left a detailed message for Patient's Guardian- Stefanie @ [phone], indicating the IMM will be mailed certified letter to her and requesting if there is a different dc plan, other than Patient returning to [facility], to please inform CM (Contact information provided).JADA has initiated and will follow for dc planning.
[2021-01-04] MEDS: 0.9 % Sodium Chloride Flush 3 ML SYRINGE IVFLUSH ×3 (09:27→21:57)
[2021-01-04] MEDS: Enoxaparin Sodium 40 MG/0.4 ML SYRINGE SUBCUT (09:27)
[2021-01-04] MEDS: hydroCHLOROthiazide 12.5 MG TABLET PO (09:28)
[2021-01-04] MEDS: Docusate Sodium 100 MG CAPSULE PO ×2 (09:28→21:56)
[2021-01-04] MEDS: amLODIPine Besylate 2.5 MG TABLET PO (09:28)
[2021-01-04] MEDS: OLANZapine 10 MG TABLET 20 MG PO (09:28)
[2021-01-04] MEDS: polyethylene glycoL 3350 17 GM POWD.PACK PO (09:38)
[2021-01-04] MEDS: vancomycin HCL 750 MG in 0.9 % Sodium Chloride 250 ML 265 MG IV (12:52)
[2021-01-04 15:01] LABS: Absolute CD3 Count 4153 cells/uL (840-3060); Absolute CD4 Count 555 cells/uL (490-1740); Absolute CD8 Count 3515 cells/uL (180-1170); Absolute Lymphocytes 4965 cells/uL (850-3900); CD4 CD8 Ratio 0.16 (0.86-5.00); Percent CD3 Cells 84 % (57-85); Percent CD4 Cells 11 % (30-61); Percent CD8 Cells 71 % (12-42)
--- NOTE | 2021-01-04 15:17 | P.PNIM_ITS ---
Subjective Subjective Date of Service: 01/04/21 Interval History: the patient was seen and evaluated this morning Sitting up, more talkative and interactive, aware of place and time Spiked a fever overnight with no clear source No reported seizures overnight No reported other overnight events. Systemic review: Had fever overnight No chest pain, palpitation No shortness of breath or coughing No abdominal pain, nausea or vomiting No urinary symptoms No any rash or wounds Physical Exam Vital Signs: Vital Signs: Last Vital Signs Temp 97.8 F 01/04/21 14:48 Pulse 120 H 01/04/21 14:48 Resp 20 01/04/21 14:48 BP 184/102 H 01/04/21 14:48 Pulse Ox 97 01/04/21 14:48 Body Mass Index 19.6 Const: Other: Constitutional : Alert, oriented to self and place, not in dist ress Neck : Normal inspection, Supple Cardiovascular : RRR, S1 S2, no lower extremity edema Respiratory : fair Good bilateral air entry, no crackles, wheezes or rhonchi Gastrointestinal: soft, lax, Normal bowel sounds, Non tender Skin : Warm, Dry Neurological : Alert & oriented x2, No focal deficit Objective Data Current Medications Generic Name Dose Route Start Last Admin Trade Name Freq PRN Reason Stop Dose Admin Acetaminophen 650 mg 01/03/21 00:13 01/03/21 23:16 Acetaminophen 325 Mg Tablet PO 650 mg Q6H PRN Administration Pain, Mild (Pain Scale 1-3) Amlodipine Besylate 2.5 mg 01/03/21 09:00 01/04/21 09:28 Amlodipine Besylate 2.5 Mg Tablet PO 2.5 mg DAILY CARINE Administration Protocol Docusate Sodium 100 mg 01/03/21 00:13 Docusate Sodium 100 Mg Capsule PO DAILY PRN Constipation Docusate Sodium 100 mg 01/03/21 14:20 01/04/21 09:28 Docusate Sodium 100 Mg Capsule PO 100 mg BID CARINE Administration Enoxaparin Sodium 40 mg 01/03/21 10:00 01/04/21 09:27 Enoxaparin Sodium 40 Mg/0.4 Ml Syringe SUBCUT 40 mg Q24H CARINE Administration Ergocalciferol 1,250 mcg 01/30/21 09:00 Ergocalciferol (Vitamin D2) 1,250 Mcg Capsule PO MO [facility] Haloperidol Decanoate 50 mg 01/26/21 10:00 Haloperidol Decanoate 50 Mg/Ml Ampul IM Q28D CARINE Hydrochlorothiazide 12.5 mg 01/03/21 09:00 01/04/21 09:28 Hydrochlorothiazide 12.5 Mg Tablet PO 12.5 mg DAILY CARINE Administration Protocol Levetiracetam 500 mg in 100 mls @ 400 mls/hr 01/03/21 18:00 01/04/21 06:00 Keppra IV Infused Q12H CARINE Infusion Ceftriaxone Sodium 1 gm/ 50 mls @ 100 mls/hr 01/04/21 00:00 01/04/21 01:25 Sodium Chloride IV Infused Q24H CARINE Infusion Vancomycin HCl 750 mg/ Sodium 265 mls @ 265 mls/hr 01/04/21 13:00 01/04/21 14:04 Chloride IV Infused Q12H CARINE Infusion Mirtazapine 15 mg 01/03/21 21:00 01/03/21 21:30 Mirtazapine 15 Mg Tablet PO 15 mg BEDTIME CARINE Administration Pat Own Med (Odefsey 1 each 01/03/21 13:00 01/04/21 09:30 Emtricitab-Rilpivir PO 1 each -Tenofo Ala 200-25- DAILY CARINE Administration 25 Mg Tablet) Olanzapine 20 mg 01/03/21 09:00 01/04/21 09:28 Olanzapine 10 Mg Tablet PO 20 mg DAILY CARINE Administration Ondansetron HCl 4 mg 01/03/21 00:13 Ondansetron Hcl 4 Mg/2 Ml Vial IVPUSH Q8H PRN Nausea and Vomiting Pharmacy Consult 1 each 01/02/21 14:05 Consult Rx Perform Med Rec MISCELLANE ONCE PRN Consult order Pharmacy Consult 1 each 01/03/21 23:55 Consult Rx Vancomycin Dosing MISCELLANE DAILY PRN Consult order Polyethylene Glycol 17 gm 01/03/21 14:20 01/04/21 09:38 Polyethylene Glycol 3350 17 Gm Powd.Pack PO 17 gm DAILY CARINE Administration Sodium Chloride 3 ml 01/03/21 00:13 01/04/21 09:27 0.9 % Sodium Chloride Flush 3 Ml Syringe IVFLUSH 3 ml QSHIFT CARINE Administration Labs CBC & Chem 7: 01/04/21 05:38 01/04/21 05:38 Labs: Laboratory Results - last 24 hr 01/03/21 01/03/21 01/03/21 00:50 23:38 23:38 MCV 92.2 MCH 30.6 MCHC 33.2 RDW 12.8 Plt Count 192 MPV 9.1 L Immature Gran % (Auto) 0.5 H Neut % (Auto) 30.5 L Lymph % (Auto) 58.8 H [place] % (Auto) 8.6 Eos % (Auto) 1.2 Baso % (Auto) 0.4 Lymph # (Auto) 4.4 [place]ran # (Auto) 0.6 Eos # (Auto) 0.1 Baso # (Auto) 0.0 Abs Immat Gran (auto) 0.04 H Absolute Neuts (auto) 2.3 Absolute Nucleated RBC 0.000 Nucleated RBC % (auto) 0.0 Anion Gap Estim Creat Clear Calc Estimated GFR Random Glucose Lactic Acid 2.0 Calcium C-Reactive Protein Urine Color Urine Appearance Urine pH Ur Specific [place] Urine Protein Urine Glucose (UA) Urine Ketones Urine Blood Urine Nitrite Ur Leukocyte Esterase Urine RBC Urine WBC Ur Squamous Epith Cells Urine Bacteria CSF West [place] Virus Total Lymphocytes 4965 H % CD3 Cells 84 Absolute CD3 Count 4153 H % CD4 Cells 11 L Absolute CD4 Count 555 CD4/CD8 Ratio 0.16 L % CD8 Cells 71 H Absolute CD8 Count 3515 H 01/03/21 01/04/21 01/04/21 Unknown 01:50 05:38 MCV 93.3 MCH 30.6 MCHC 32.8 RDW 12.7 Plt Count 215 MPV 9.4 Immature Gran % (Auto) Neut % (Auto) Lymph % (Auto) [place] % (Auto) Eos % (Auto) Baso % (Auto) Lymph # (Auto) [place] # (Auto) Eos # (Auto) Baso # (Auto) Abs Immat Gran (auto) Absolute Neuts (auto) Absolute Nucleated RBC 0.000 Nucleated RBC % (auto) 0.0 Anion Gap Estim Creat Clear Calc Estimated GFR Random Glucose Lactic Acid Calcium C-Reactive Protein Urine Color YELLOW Urine Appearance CLEAR Urine pH 6.0 Ur Specific [place] 1.020 Urine Protein TRACE Urine Glucose (UA) NEG Urine Ketones NEG Urine Blood 1+ H Urine Nitrite NEG Ur Leukocyte Esterase NEG Urine RBC 5-9 H Urine WBC 0-2 Ur Squamous Epith Cells 1+ Urine Bacteria 1+ CSF West [place] Virus Cancelled Total Lymphocytes % CD3 Cells Absolute CD3 Count % CD4 Cells Absolute CD4 Count CD4/CD8 Ratio % CD8 Cells Absolute CD8 Count 01/04/21 05:38 MCV MCH MCHC RDW Plt Count MPV Immature Gran % (Auto) Neut % (Auto) Lymph % (Auto) [place] % (Auto) Eos % (Auto) Baso % (Auto) Lymph # (Auto) [place] # (Auto) Eos # (Auto) Baso # (Auto) Abs Immat Gran (auto) Absolute Neuts (auto) Absolute Nucleated RBC Nucleated RBC % (auto) Anion Gap 10 L Estim Creat Clear Calc 72.0 Estimated GFR > 60 Random Glucose 98 Lactic Acid Calcium 8.6 C-Reactive Protein 0.53 H Urine Color Urine Appearance Urine pH Ur Specific [place] Urine Protein Urine Glucose (UA) Urine Ketones Urine Blood Urine Nitrite Ur Leukocyte Esterase Urine RBC Urine WBC Ur Squamous Epith Cells Urine Bacteria CSF West [place] Virus Total Lymphocytes % CD3 Cells Absolute CD3 Count % CD4 Cells Absolute CD4 Count CD4/CD8 Ratio % CD8 Cells Absolute CD8 Count Microbiology Microbiology Results: Microbiology 01/02/21 21:02 Gram Stain - Final Cerebrospinal Fluid CSF Examination - Final Fluid Description - Final CSF Culture - Preliminary No growth after 2 days 01/02/21 14:24 Blood Culture - Preliminary Blood - Venous No growth after 24 hours. 01/02/21 14:24 Blood Culture - Preliminary Blood - Venous No growth after 24 hours. Assessment and Plan (1) HIV (human immunodeficiency virus infection): Status: Acute (2) Seizure: Status: Acute (3) Acute metabolic encephalopathy: Status: Acute Assessment and Plan: 65-year-old male who is sent from jail for witnessed seizure # Fever, SIRS Spiked fever overnight of 101 No clear source of infection identified Started on ceftriaxone and vancomycin by night physician Blood culture pending ID to follow # seizure attack no recurrence in the hospital pending EEG MRI of the brain negative for any acute findings neurology consult appreciated, Start Keppra # encephalopathy, metabolic acute lumbar puncture showed increased leukocytes as well as protein in the setting of history of HIV negative Gram stain dc acyclovir infectious disease consulted, treat for seizure # hypertension continue amlodipine and hydrochlorothiazide # history of bipolar disorder continue olanzapine and mirtazapine # history of dementia continue haloperidol # history of HIV continue antiviral will obtain CD4 count in the setting of possible encephalitis DVT prophylaxis: Lovenox Quality Stroke Does the patient have a stroke diagnosis?: No VTE Prior VTE?: No VTE Risk Level:: Medical - moderate - high VTE Device Contraindication: Treatment Not Indicated VTE Drug Contraindication: N/A - Med Ordered
[2021-01-04] MEDS: Acetaminophen 325 MG TABLET 650 MG PO ×2 (17:30→21:56)
[2021-01-04] MEDS: Mirtazapine 15 MG TABLET PO (21:57)
[2021-01-05] VITALS (7 sets, daily range): BP systolic 107–145; BP diastolic 70–95; PULSE 101–127; RESP 17–21; TEMP 36.1–36.9; O2SAT 93–96
[2021-01-05] MEDS: cefTRIAXone sodium 1 GM in 0.9 % Sodium Chloride 50 ML IV (00:34)
[2021-01-05] MEDS: vancomycin HCL 750 MG in 0.9 % Sodium Chloride 250 ML 265 MG IV ×2 (01:18→13:32)
[2021-01-05] MEDS: levETIRAcetam in NaCl (iso-os) 500 MG/100 ML PIGGYBACK 400 MG IV ×2 (06:14→17:52)
[2021-01-05 06:18] LABS: Hematocrit 49.1 % (42-52); Hemoglobin 16.6 g/dl (14.0-18.0); Mean Corpuscular HGB Conc 33.8 g/dl (31.0-36.0); Mean Corpuscular Hemoglobin 31.1 pg (27.0-33.0); Mean Corpuscular Volume 92.1 fL (80-98); Mean Platelet Volume 9.6 fL (9.4-12.4); Platelet Count 190 X10*3/uL (160-400); Red Blood Count 5.33 X10*6/uL (4.60-5.80); Red Cell Distribution Width 12.6 % (11.0-16.0); White Blood Count 5.7 X10*3/uL (4.8-10.8)
[2021-01-05 06:47] LABS: Anion Gap 12 (12-20); Blood Urea Nitrogen 11 mg/dL (9-16); Calcium 8.9 mg/dL (8.4-10.2); Carbon Dioxide 28 mmol/L (22-29); Chloride 103 mmol/L (96-108); Creatinine Clr Calc Pharmacy 86.5; Estimated Glomerular Filt Rate > 60; Glucose Random 171 mg/dL (60-115); Sodium 139 mmol/L (135-145)
[2021-01-05] MEDS: 0.9 % Sodium Chloride Flush 3 ML SYRINGE IVFLUSH ×3 (09:55→19:39)
[2021-01-05] MEDS: polyethylene glycoL 3350 17 GM POWD.PACK PO (09:55)
[2021-01-05] MEDS: Acetaminophen 325 MG TABLET 650 MG PO (09:55)
[2021-01-05] MEDS: OLANZapine 10 MG TABLET 20 MG PO (09:57)
[2021-01-05] MEDS: amLODIPine Besylate 5 MG TABLET PO (09:57)
[2021-01-05] MEDS: hydroCHLOROthiazide 12.5 MG TABLET PO (09:57)
[2021-01-05] MEDS: Docusate Sodium 100 MG CAPSULE PO ×2 (09:57→19:39)
[2021-01-05] MEDS: Enoxaparin Sodium 40 MG/0.4 ML SYRINGE SUBCUT (09:58)
--- NOTE | 2021-01-05 11:42 | MHC.CLN ---
F/U PATIENT WEIGHED AGAIN WITH WEIGHT 01/05=62.3 KG. 86% IBW, BMI=20.2. CONTINUE REGULAR DIET AND ENSURE 240 ML BID (700 KCAL, 40 G PROTEIN). SEE NUTRITION ASSESSMENT 01/04/21.
[2021-01-05 12:47] LABS: Vancomycin Trough 10.6 mcg/mL (10.0-20.0)
--- NOTE | 2021-01-05 14:00 | P.PNIM_ITS ---
Subjective Subjective Date of Service: 01/05/21 Interval History: The patient was seen and evaluated this morning Talkative and interactive, aware of place and time No more fever for the last 24 hours To No reported seizures overnight No reported other overnight events. Systemic review: No fever overnight No chest pain, palpitation No shortness of breath or coughing No abdominal pain, nausea or vomiting No urinary symptoms No any rash or wounds Physical Exam Vital Signs: Vital Signs: Last Vital Signs Temp 97 F 01/05/21 11:36 Pulse 114 H 01/05/21 11:36 Resp 18 01/05/21 11:36 BP 145/95 H 01/05/21 11:36 Pulse Ox 93 01/05/21 11:36 Body Mass Index 20.2 Const: Other: Constitutional : Alert, oriented to self and place, not in distress Neck : Normal inspection, Supple Cardiovascular : RRR, S1 S2, no lower extremity edema Respiratory : fair Good bilateral air entry, no crackles, wheezes or rhonchi Gastrointestinal: soft, lax, Normal bowel sounds, Non tender Skin : Warm, Dry Neurological : Alert & oriented x2, No focal deficit Objective Data Current Medications Generic Name Dose Route Start Last Admin Trade Name Freq PRN Reason Stop Dose Admin Acetaminophen 650 mg 01/04/21 17:00 01/05/21 09:59 Acetaminophen 325 Mg Tablet PO Not Given QIDWMHS [facility] Amlodipine Besylate 5 mg 01/05/21 09:00 01/05/21 09:57 Amlodipine Besylate 5 Mg Tablet PO 5 mg DAILY [facility] Administration Protocol Docusate Sodium 100 mg 01/03/21 00:13 Docusate Sodium 100 Mg Capsule PO DAILY PRN Constipation Docusate Sodium 100 mg 01/03/21 14:20 01/05/21 09:57 Docusate Sodium 100 Mg Capsule PO 100 mg BID CARINE Administration Enoxaparin Sodium 40 mg 01/03/21 10:00 01/05/21 09:58 Enoxaparin Sodium 40 Mg/0.4 Ml Syringe SUBCUT 40 mg Q24H [facility] Administration Ergocalciferol 1,250 mcg 01/30/21 09:00 Ergocalciferol (Vitamin D2) 1,250 Mcg Capsule PO MO [facility] Haloperidol Decanoate 50 mg 01/26/21 10:00 Haloperidol Decanoate 50 Mg/Ml Ampul IM Q28D [facility] Hydrochlorothiazide 12.5 mg 01/03/21 09:00 01/05/21 09:57 Hydrochlorothiazide 12.5 Mg Tablet PO 12.5 mg DAILY CARINE Administration Protocol Levetiracetam 500 mg in 100 mls @ 400 mls/hr 01/03/21 18:00 01/05/21 07:21 Keppra IV Infused Q12H CARINE Infusion Ceftriaxone Sodium 1 gm/ 50 mls @ 100 mls/hr 01/04/21 00:00 01/05/21 01:34 Sodium Chloride IV Infused Q24H [facility] Infusion Vancomycin HCl 750 mg/ Sodium 265 mls @ 265 mls/hr 01/04/21 13:00 01/05/21 13:32 Chloride IV 265 mls/hr Q12H CARINE Administration Mirtazapine 15 mg 01/03/21 21:00 01/04/21 21:57 Mirtazapine 15 Mg Tablet PO 15 mg BEDTIME CARINE Administration Pat Own Med (Odefsey 1 each 01/03/21 13:00 01/05/21 09:58 Emtricitab-Rilpivir PO 1 each -Tenofo Ala 200-25- DAILY CARINE Administration 25 Mg Tablet) Olanzapine 20 mg 01/03/21 09:00 01/05/21 09:57 Olanzapine 10 Mg Tablet PO 20 mg DAILY CARINE Administration Ondansetron HCl 4 mg 01/03/21 00:13 Ondansetron Hcl 4 Mg/2 Ml Vial IVPUSH Q8H PRN Nausea and Vomiting Pharmacy Consult 1 each 01/02/21 14:05 Consult Rx Perform Med Rec MISCELLANE ONCE PRN Consult order Pharmacy Consult 1 each 01/03/21 23:55 Consult Rx Vancomycin Dosing MISCELLANE DAILY PRN Consult order Polyethylene Glycol 17 gm 01/03/21 14:20 01/05/21 09:55 Polyethylene Glycol 3350 17 Gm Powd.Pack PO 17 gm DAILY CARINE Administration Sodium Chloride 3 ml 01/03/21 00:13 01/05/21 09:55 0.9 % Sodium Chloride Flush 3 Ml Syringe IVFLUSH 3 ml QSHIFT CARINE Administration Labs CBC & Chem 7: 01/05/21 05:49 01/05/21 05:49 Labs: Laboratory Results - last 24 hr 01/03/21 01/05/21 01/05/21 00:50 05:49 05:49 MCV 92.1 MCH 31.1 MCHC 33.8 RDW 12.6 Plt Count 190 MPV 9.6 Absolute Nucleated RBC 0.000 Nucleated RBC % (auto) 0.0 Anion Gap 12 Estim Creat Clear Calc 86.5 Estimated GFR > 60 Random Glucose 171 H D Calcium 8.9 Vancomycin Trough Lymphocyte Subset Cmmnt TNP Total Lymphocytes 4965 H % CD3 Cells 84 Absolute CD3 Count 4153 H % CD4 Cells 11 L Absolute CD4 Count 555 CD4/CD8 Ratio 0.16 L % CD8 Cells 71 H Absolute CD8 Count 3515 H 01/05/21 12:11 MCV MCH MCHC RDW Plt Count MPV Absolute Nucleated RBC Nucleated RBC % (auto) Anion Gap Estim Creat Clear Calc Estimated GFR Random Glucose Calcium Vancomycin Trough 10.6 Lymphocyte Subset Cmmnt Total Lymphocytes % CD3 Cells Absolute CD3 Count % CD4 Cells Absolute CD4 Count CD4/CD8 Ratio % CD8 Cells Absolute CD8 Count Microbiology Microbiology Results: Microbiology 01/02/21 21:02 Gram Stain - Final Cerebrospinal Fluid CSF Examination - Final Fluid Description - Final CSF Culture - Final No growth after 3 days. 01/03/21 23:38 Blood Culture - Preliminary Blood - Venous No growth after 24 hours. 01/03/21 23:33 Blood Culture - Preliminary Blood - Venous No growth after 24 hours. 01/02/21 14:24 Blood Culture - Preliminary Blood - Venous No growth after 48 hours. 01/02/21 14:24 Blood Culture - Preliminary Blood - Venous No growth after 48 hours. Assessment and Plan (1) Acute metabolic encephalopathy: Status: Acute (2) HIV (human immunodeficiency virus infection): Status: Acute (3) Seizure: Status: Acute Assessment and Plan: 65-year-old male who [facility] # Fever, SIRS No fever last 24 hours No clear source of infection identified, could be aspirition pneumonitis DC ceftriaxone and vancomycin Start PO Doxycycline Blood culture pending ID following # seizure attack no recurrence in the hospital pending EEG MRI of the brain negative for any acute findings neurology consult appreciated Continue Keppra # encephalopathy, metabolic acute lumbar puncture showed increased leukocytes as well as protein in the setting of history of HIV negative Gram stain dc acyclovir infectious disease consulted, treat for seizure # hypertension continue amlodipine and hydrochlorothiazide # history of bipolar disorder continue olanzapine and mirtazapine # history of dementia continue haloperidol # history of HIV continue antiviral CD4 count 550 DVT prophylaxis: Lovenox Quality Stroke Does the patient have a stroke diagnosis?: No VTE Prior VTE?: No VTE Risk Level:: Medical - moderate - high VTE Device Contraindication: Treatment Not Indicated VTE Drug Contraindication: N/A - Med Ordered
[2021-01-05 17:26] LABS: HSV 1 DNA, CSF Not Detected (Not Detected); HSV 2 DNA, CSF Not Detected (Not Detected); Specimen Source CSF
[2021-01-05] MEDS: Mirtazapine 15 MG TABLET PO (19:39)
[2021-01-05] MEDS: Amoxicillin/Potassium Clav 875 MG TABLET PO (19:39)
[2021-01-06 03:21] VITALS: BP 114/78; PULSE 121; RESP 18; TEMP 36.9; O2SAT 95
[2021-01-06] MEDS: levETIRAcetam in NaCl (iso-os) 500 MG/100 ML PIGGYBACK 400 MG IV (06:15)
[2021-01-06 07:00] VITALS: BP 109/72; PULSE 101; RESP 20; TEMP 36.6; O2SAT 98
[2021-01-06] MEDS: 0.9 % Sodium Chloride Flush 3 ML SYRINGE IVFLUSH (07:58)
[2021-01-06] MEDS: OLANZapine 10 MG TABLET 20 MG PO (09:10)
[2021-01-06] MEDS: polyethylene glycoL 3350 17 GM POWD.PACK PO (09:10)
[2021-01-06] MEDS: Docusate Sodium 100 MG CAPSULE PO (09:10)
[2021-01-06] MEDS: Amoxicillin/Potassium Clav 875 MG TABLET PO (09:10)
[2021-01-06] MEDS: hydroCHLOROthiazide 12.5 MG TABLET PO (09:10)
[2021-01-06 09:16] VITALS: BP 109/72; PULSE 101
[2021-01-06] MEDS: amLODIPine Besylate 5 MG TABLET PO (09:16)
[2021-01-06] MEDS: Enoxaparin Sodium 40 MG/0.4 ML SYRINGE SUBCUT (10:39)
--- NOTE | 2021-01-06 11:09 | P.DS_ITS ---
DS: Providers Provider Date of Service: 01/06/21 Date of admission: 01/03/21 00:03 Primary care physician: Tmo Elizondo MD Consults: 01/03/21 00:13 Consult to Infectious Diseases Routine Consulting Provider: Karen Coelho Reason for consultation: encephalitis? Has provider been notified: No Consult to Neurology Routine Consulting Provider: [facility] Reason for consultation: seizure Has provider been notified: No DS: Diagnosis Discharge Diagnosis (1) Acute metabolic encephalopathy: Status: Acute (2) HIV (human immunodeficiency virus infection): Status: Acute (3) Seizure: Status: Acute DS: Medications Discharge Medications Home Medications: Home Medications Medication Instructions Recorded Confirmed amlodipine 2.5 mg tablet 1 tab PO DAILY 01/02/21 01/02/21 emtricitabine 200 mg-rilpivirine 1 tab PO DAILY 01/02/21 01/02/21 25 mg-tenofovir alafenam 25 mg tablet (Abram) ergocalciferol (vitamin D2) 1,250 1 cap PO MO 01/02/21 01/02/21 mcg (50,000 unit) capsule haloperidol decanoate 50 mg/mL 50 mg IM Q28D 01/02/21 01/02/21 intramuscular solution hydrochlorothiazide 12.5 mg capsule 1 cap PO DAILY 01/02/21 01/02/21 mirtazapine 15 mg tablet 1 tab PO BEDTIME 01/02/21 01/02/21 olanzapine 20 mg tablet 1 tab PO DAILY 01/02/21 01/02/21 Previous Rx's Medication Instructions Recorded amoxicillin 875 mg-potassium 875 mg PO Q12H 3 Days #6 tab 01/06/21 clavulanate 125 mg tablet levetiracetam 500 mg tablet 500 mg PO BID #60 tab 01/06/21 DS: Summary Hospital Course Hospital Course: Admission note HPI This is a 65-year-old male with past medical history of HIV, dementia, prior substance abuse, HTN, bipolar disorder who presented from SNF with complaints of possible seizure episode.? Apparently a staff saw him shaking and falling to the floor with tonic-clonic movements.? Patient is very confused, lethargic but awakes to verbal command, wakes up answers questions but not appropriately and falls back asleep.? Unable to get much history otherwise.? He apparently felt also hot to the touch at the long-term although no vitals were provided. On arrival to the ED patient vitals significant for temp of 99.7? and heart rate of 110 otherwise unremarkable CBC significant for WBC of 6.2 otherwise unremarkable, CMP significant for lactic acid of 2.6, total bili of 1.2, AST of 9 3, ALT of 67, otherwise unremarkable. UA negative for infection Lumbar puncture done in the ED showed increased lymphocytes as well as protein, patient was diagnosed with presumptive diagnosis of viral encephalitis given acyclovir and admitted for further management Unable to obtain past medical history directly from patient, therefore obtained from a.m. Hospital course The patient was admitted for evaluation of altered mentation seizures. CT scan and brain MRI were negative for any acute findings. CSF analysis was done showing mildly elevated WBCs but encephalitis panel came back negative along with cultures and Gram stain. He was started on acyclovir for possible viral encephalitis. The next morning he was evaluated by infectious disease and neurology who recommended to discontinue antiviral started patient on seizure medication so Keppra was started with good response as the patient mentation improved back to baseline. That night he spiked a fever which was only 1 time. Workup including cultures negative. He was treated with IV antibiotics for possible aspiration during the seizures. To be discharged on Augmentin as cultures are negative. To follow-up with PCP and to continue Keppra twice daily. Time Spent with Patient Time attestation: Total time spent providing and/or coordinating discharge services: Discharge coordination time: Greater than 30 minutes Quality: Stroke Does the patient have a stroke diagnosis?: No Physical Exam Vital Signs: Vital Signs: Last Vital Signs Temp 98 F 01/06/21 07:00 Pulse 101 H 01/06/21 09:16 Resp 20 01/06/21 07:00 BP 109/72 01/06/21 09:16 Pulse Ox 98 01/06/21 07:00 Body Mass Index 20.2 Const: Other: Constitutional : Alert, oriented to self and place, not in distress Neck : Normal inspection, Supple Cardiovascular : RRR, S1 S2, no lower extremity edema Respiratory : fair Good bilateral air entry, no crackles, wheezes or rhonchi Gastrointestinal: soft, lax, Normal bowel sounds, Non tender Skin : Warm, Dry Neurological : Alert & oriented x2, No focal deficit DS: Data Data Completed and Pending Labs on day of discharge: Laboratory Results - last 24 hr 01/02/21 01/05/21 21:02 12:11 CSF Herpes I DNA (PCR) Not Detected CSF Herpes II DNA (PCR) Not Detected Vancomycin Trough 10.6 Body Source CSF Preliminary micro results at discharge 01/03/21 23:38 Blood Culture - Preliminary Blood - Venous No growth after 48 hours. 01/03/21 23:33 Blood Culture - Preliminary Blood - Venous No growth after 48 hours. 01/02/21 14:24 Blood Culture - Preliminary Blood - Venous No growth after 48 hours. 01/02/21 14:24 Blood Culture - Preliminary Blood - Venous No growth after 48 hours. Discharge Plan Discharge Patient Disposition: Home, Self-Care Discharge Diagnosis: Acute metabolic encephalopathy Seizures Referrals: Tom Elizondo MD [Primary Care Provider] - 1 Week Discharge Medications: New amoxicillin-pot clavulanate 875-125 mg Tablet 875 mg PO Q12H 3 Days Qty: 6 RF: 0 levetiracetam 500 mg tablet 500 mg PO BID Qty: 60 RF: 0 Continued amlodipine 2.5 mg tablet 1 tab PO DAILY RF: 0 hydrochlorothiazide 12.5 mg capsule 1 cap PO DAILY RF: 0 haloperidol decanoate 50 mg/mL solution 50 mg IM Q28D RF: 0 mirtazapine 15 mg tablet 1 tab PO BEDTIME RF: 0 ergocalciferol (vitamin D2) 1,250 mcg (50,000 unit) capsule 1 cap PO MO RF: 0 olanzapine 20 mg tablet 1 tab PO DAILY RF: 0 O[place]sey 200-25-25 mg tablet 1 tab PO DAILY RF: 0 Discharge Orders: Discharge Order (Routine); Ordered 01/06/21 Ordered By: Aditi John Diet: advance to usual diet Activity on Discharge: As tolerated Stand Alone Forms: Patient Portal Discharge page Care Plan Goals: Read below Health Concerns: Read below Plan of Treatment: You were admitted for evaluation of seizures. Images were negative for any acute events in the brain. You were evaluated by infectious disease specialist and neurologist who recommended treatment with antiseizure medication. You did spike of fever which wheezing could be result of aspiration. Treated with IV antibiotics with good response. Assessment: Continue Augmentin for 3 more days Start Keppra 500 mg twice Daily To follow-up as outpatient with PCP
--- NOTE | 2021-01-06 11:52 | MHC.CM.PN ---
Patient has been medically cleared for dc to home ([facility]) today. Patient will dc today at 2PM via [facility] ([facility]). JADA has made Kapilan/Stefanie @ [phone] aware of the dc plan. Dc summary has been successfully faxed to [facility] and uploaded into [employer].Last IMM addressed on 01/04/21.
[2021-01-06 12:00] VITALS: BP 128/64; PULSE 72; RESP 18; TEMP 35.5; O2SAT 92
[2021-01-06 15:05] VITALS: BP 124/84; PULSE 120; RESP 20; TEMP 36.4; O2SAT 96
[2021-01-06 15:22] LABS: Influenza A PCR NEGATIVE (Negative); Influenza B PCR NEGATIVE (Negative); Resp Syncy Virus RNA Qual PCR NEGATIVE (Negative); SARS COV2 PCR INHOUSE NEGATIVE (Negative)
--- NOTE | 2021-01-06 16:27 | PC.NURSE ---
EMS arrives to return pt to [facility]. Pt initially refusing to return to facility, states he lives here now. Attempted to reorient pt to situation, assisted pt to stretcher. HE was ambulatory with steady gait to stretcher and to exit via EMS stretcher.
== END 2021-01-06 16:10 | disposition home or self-care (01) | DRG 101 ==
LOC: HO.ED 23:16 → HO.EDOVER 01-03 00:14 → HO.ICU 01-03 10:09 → HO.IMC 01-03 12:45
PROVIDERS: Nurse Practitioner Family; Admitting Provider Internal Medicine; Emergency Provider Emergency Medicine; PCP Internal Medicine; Visit Provider Student in an Organized Health Care Education/Training Program
DX: R56.9 Unspecified convulsions (principal); F03.90 Unspecified dementia, unspecified severity, without behavioral disturbance, psychotic disturbance, mood disturbance, and anxiety; Z21 Asymptomatic human immunodeficiency virus [HIV] infection status; Z20.822 Contact with and (suspected) exposure to COVID-19; I10 Essential (primary) hypertension; F31.9 Bipolar disorder, unspecified; Z79.899 Other long term (current) drug therapy
CPT/HCPCS: 0241U; 36415; 70450; 70553; 71250; 72125; 74176; 76705; 80048; 80076; 80202; 81001; 81003; 82550; 82945; 83605; 83690; 83735; 84157; 84484; 85025; 85027; 86140; 86359; 86360; 87015; 87040; 87070; 87205; 87529; 87635; 89051; 93005; 95816; 96361; 96374; 96375; 99285; A9585; J0133; J0692; J0696; J1650; J1953; J2405; J3370

== ENCOUNTER 2021-03-31 19:13 | Inpatient (IN) | payer MEDICARE, MEDICAID, SELFPAY ==
--- NOTE | 2021-03-31 19:37 | ED_ITS ---
HPI - Altered Mental Status General Chief Complaint: Psychiatric Symptoms <Alyx Stanley MD - Last Filed: 04/01/21 21:16> Stated Complaint: aggressive behavior/schizo <Alyx Stanley MD - Last Filed: 04/01/21 21:16> Time Seen by Provider: 03/31/21 19:20 <Alyx Stanley MD - Last Filed: 04/01/21 21:16> History of Present Illness HPI narrative: Patient is 65-year-old male with a history of HIV. History of hepatitis. .History of metabolic encephalopathy in the past. Presents today with acute agitation. Patient has been noncompliant with Medication. No coughing or congestion or upper respiratory symptoms. Patient was swinging at the EMS crew. No gross focal weakness noted by EMS. No trauma reported by shelter staff history of seizures is on Keppra. Patient refused to answer detail history or review system <Alyx Stanley MD - Last Filed: 04/01/21 21:16> Related Data Home Medications: Home Medications Medication Instructions Recorded Confirmed amlodipine 2.5 mg tablet 2.5 mg PO DAILY 01/02/21 03/31/21 emtricitabine 200 mg-rilpivirine 1 tab PO DAILY 01/02/21 03/31/21 25 mg-tenofovir alafenam 25 mg tablet (Abram) ergocalciferol (vitamin D2) 1,250 1 cap PO MO 01/02/21 03/31/21 mcg (50,000 unit) capsule haloperidol decanoate 50 mg/mL 50 mg IM Q28D 01/02/21 04/01/21 intramuscular solution hydrochlorothiazide 12.5 mg capsule 1 cap PO DAILY 01/02/21 03/31/21 mirtazapine 15 mg tablet 1 tab PO BEDTIME 01/02/21 03/31/21 olanzapine 20 mg tablet 1 tab PO QAM 01/02/21 03/31/21 loperamide 2 mg tablet 2 mg PO Q6H PRN 03/31/21 03/31/21 magnesium hydroxide 400 mg/5 mL 2,400 mg PO DAILY PRN 03/31/21 03/31/21 oral suspension (Milk of Magnesia) Previous Rx's Medication Instructions Recorded levetiracetam 500 mg tablet 500 mg PO BID #60 tab 01/06/21 <Alyx Stanley MD - Last Filed: 04/01/21 21:16> Allergies/Adverse Reactions: Allergies Allergy/AdvReac Type Severity Reaction Status Date / Time No Known Allergies Allergy Unverified 01/28/20 16:07 [No Known Allergies*] <Alyx Stanley MD - Last Filed: 04/01/21 21:16> Review of Systems Review of Systems: unable to obtain due to patient's condition <Alyx Stanley MD - Last Filed: 04/01/21 21:16> Yes Unobtainable due to mental condition <Alyx Stanley MD - Last Filed: 04/01/21 21:16> [facility] Past Medical History Medical History: Medical History (Updated 04/01/21 @ 09:20 by Shirlene Frazier NP) Bipolar 1 disorder Dementia Hepatitis C HIV (human immunodeficiency virus infection) HTN (hypertension) Liver failure <Alyx Stanley MD - Last Filed: 04/01/21 21:16> Social History Social History: Social History Household Members: Unknown / Unable to assess and Other Housing: [facility] Other:: [facility] Do you presently have visiting nurse or other home services: No Unable to assess alcohol history related to: Unknown Patient Tobacco Use Status: Tobacco use Unknown Substance Use Type: Former Substance User Advance Directives: Yes Advance Directives on File: Yes Advance Directives Date on File: 04/18/17 service: No Current occupational status: disabled <Alyx Stanley MD - Last Filed: 04/01/21 21:16> Physical Exam Vital Signs: Vital Signs: Last Vital Signs Temp 98.7 F 04/01/21 06:38 Pulse 119 H 04/01/21 09:17 Resp 16 03/31/21 20:40 BP 146/109 H 04/01/21 09:17 Pulse Ox 98 04/01/21 06:38 Body Mass Index 20.3 Appearance: Alert. agitated, moving all extremities Eyes: Pupils equal, round and reactive to light. ENT: Pharynx normal. Neck: Normal inspection. Neck supple. No lymph nodes noted. No crepitus CVS: Normal heart rate and rhythm. Pulses normal. Normal S1 and S2 Respiratory: No respiratory distress. Breath sounds normal. No Wheezing. No rales Abdomen: Soft and nontender. No rigidity. No distention. good BS x4 Skin: Skin warm and dry. Normal skin color. Normal skin turgor. Extremities: No lower extremity edema. Neurovascular intact to all extremities. No Lacerations. No Rash Neuro: No motor deficit. No sensory deficit. Moving all extermities. No slurred speech. Cranial nerves grossly intact <Alyx Stanley MD - Last Filed: 04/01/21 21:16> Vital Signs: Last Vital Signs Temp 98.7 F 04/01/21 06:38 Pulse 119 H 04/01/21 09:17 Resp 16 03/31/21 20:40 BP 146/109 H 04/01/21 09:17 Pulse Ox 98 04/01/21 06:38 Body Mass Index 20.3 <Shirlene Frazier NP - Last Filed: 04/01/21 09:20> Vital Signs: Last Vital Signs Temp 98.7 F 04/01/21 06:38 Pulse 119 H 04/01/21 09:17 Resp 16 03/31/21 20:40 BP 146/109 H 04/01/21 09:17 Pulse Ox 98 04/01/21 06:38 Body Mass Index 20.3 <RUBA Fowler - Last Filed: 04/01/21 12:23> Course Reevaluation(s) Reevaluation #1: 04/01 0915 medications reconciled this morning. Patient placed in physician observation pending a crisis evaluation and disposition. No complaints per nursing overnight. Vital signs reviewed and stable. Will continue with plan of care <Shirlene Frazier NP - Last Filed: 04/01/21 09:20> Reevaluation #2: 04/01 1221 physician observation continued. patient seen and evaluated by the crisis team - determined to require inpatient level of care. Section [address] Gonsalves. Patient continues to be delusional which is not baseline for him. Will continue to monitor awaiting psych placement. <RUBA Fowler - Last Filed: 04/01/21 12:23> MDM - Altered Mental Status MDM Narrative Medical decision making narrative: given patient history of <Alyx Stanley MD - Last Filed: 04/01/21 21:16> Lab Data Result diagrams: : 03/31/21 21:09 03/31/21 21:09 <Alyx Stanley MD - Last Filed: 04/01/21 21:16> Labs: Lab Results 03/31/21 03/31/21 03/31/21 Range/Units 20:15 21:09 21:09 WBC 6.3 (4.8-10.8) X10*3/uL RBC 5.67 (4.60-5.80) X10*6/uL Hgb 17.7 (14.0-18.0) g/dl Hct 52.6 H (42.0-52.0) % MCV 92.8 (80.0-98.0) fL MCH 31.2 (27.0-33.0) pg MCHC 33.7 (31.0-36.0) g/dl RDW 11.6 (11.0-16.0) % Plt Count 251 (160-400) X10*3/uL MPV 9.5 (9.4-12.4) fL Immature Gran % (Auto) 1.3 H (0.0-0.4) % Neut % (Auto) 61.1 (45-73) % Lymph % (Auto) 28.6 (20-40) % Nuckolls % (Auto) 5.8 (2-11) % Eos % (Auto) 2.7 (0-4) % Baso % (Auto) 0.5 (0-2) % Lymph # (Auto) 1.8 (1.2-4.9) X10*3/uL Nuckolls # (Auto) 0.4 (0.1-1.2) X10*3/uL Eos # (Auto) 0.2 (0.0-0.4) X10*3/uL Baso # (Auto) 0.0 (0.0-0.2) X10*3/uL Abs Immat Gran (auto) 0.08 H (0.00-0.03) X10*3/uL Absolute Neuts (auto) 3.8 (2.0-8.3) x10*3/uL Absolute Nucleated RBC 0.000 (0.0-0.012) X10*3/uL Nucleated RBC % (auto) 0.0 (0.0-0.2) /100WBC PT (9.9-13.0) SEC INR (0.9-1.1) Sodium 138 (135-145) mmol/L Potassium 3.6 (3.3-5.1) mmol/L Chloride 101 (96-108) mmol/L Carbon Dioxide 25 (22-29) mmol/L Anion Gap 16 (12-20) BUN 18 H D (9-16) mg/dL Creatinine 1.15 (0.5-1.4) mg/dL Estim Creat Clear Calc 60.8 Estimated GFR > 60 Random Glucose 193 H (60-115) mg/dL Calcium 9.6 D (8.4-10.2) mg/dL Total Bilirubin 1.3 H (0.0-1.0) mg/dL Direct Bilirubin 1.0 H (0.0-0.5) mg/dL AST 72 H (5-37) U/L ALT 48 H (0-40) U/L Alkaline Phosphatase 104 (39-117) U/L Ammonia (13-55) umol/L Total Protein 9.2 H (6.5-8.0) g/dL Albumin 3.6 (3.5-5.0) g/dL Ethyl Alcohol mg/dL COVID-19 (MARC) Cancelled COVID-19 Clin Com Cancelled 03/31/21 03/31/21 03/31/21 Range/Units 21:09 21:09 21:09 WBC (4.8-10.8) X10*3/uL RBC (4.60-5.80) X10*6/uL Hgb (14.0-18.0) g/dl Hct (42.0-52.0) % MCV (80.0-98.0) fL MCH (27.0-33.0) pg MCHC (31.0-36.0) g/dl RDW (11.0-16.0) % Plt Count (160-400) X10*3/uL MPV (9.4-12.4) fL Immature Gran % (Auto) (0.0-0.4) % Neut % (Auto) (45-73) % Lymph % (Auto) (20-40) % Nuckolls % (Auto) (2-11) % Eos % (Auto) (0-4) % Baso % (Auto) (0-2) % Lymph # (Auto) (1.2-4.9) X10*3/uL Nuckolls # (Auto) (0.1-1.2) X10*3/uL Eos # (Auto) (0.0-0.4) X10*3/uL Baso # (Auto) (0.0-0.2) X10*3/uL Abs Immat Gran (auto) (0.00-0.03) X10*3/uL Absolute Neuts (auto) (2.0-8.3) x10*3/uL Absolute Nucleated RBC (0.0-0.012) X10*3/uL Nucleated RBC % (auto) (0.0-0.2) /100WBC PT 11.7 (9.9-13.0) SEC INR 1.0 (0.9-1.1) Sodium (135-145) mmol/L Potassium (3.3-5.1) mmol/L Chloride (96-108) mmol/L Carbon Dioxide (22-29) mmol/L Anion Gap (12-20) BUN (9-16) mg/dL Creatinine (0.5-1.4) mg/dL Estim Creat Clear Calc Estimated GFR Random Glucose (60-115) mg/dL Calcium (8.4-10.2) mg/dL Total Bilirubin (0.0-1.0) mg/dL Direct Bilirubin (0.0-0.5) mg/dL AST (5-37) U/L ALT (0-40) U/L Alkaline Phosphatase (39-117) U/L Ammonia 33 (13-55) umol/L Total Protein (6.5-8.0) g/dL Albumin (3.5-5.0) g/dL Ethyl Alcohol < 10 mg/dL COVID-19 (MARC) COVID-19 Clin Com 03/31/21 Range/Units 21:13 WBC (4.8-10.8) X10*3/uL RBC (4.60-5.80) X10*6/uL Hgb (14.0-18.0) g/dl Hct (42.0-52.0) % MCV (80.0-98.0) fL MCH (27.0-33.0) pg MCHC (31.0-36.0) g/dl RDW (11.0-16.0) % Plt Count (160-400) X10*3/uL MPV (9.4-12.4) fL Immature Gran % (Auto) (0.0-0.4) % Neut % (Auto) (45-73) % Lymph % (Auto) (20-40) % Nuckolls % (Auto) (2-11) % Eos % (Auto) (0-4) % Baso % (Auto) (0-2) % Lymph # (Auto) (1.2-4.9) X10*3/uL Nuckolls # (Auto) (0.1-1.2) X10*3/uL Eos # (Auto) (0.0-0.4) X10*3/uL Baso # (Auto) (0.0-0.2) X10*3/uL Abs Immat Gran (auto) (0.00-0.03) X10*3/uL Absolute Neuts (auto) (2.0-8.3) x10*3/uL Absolute Nucleated RBC (0.0-0.012) X10*3/uL Nucleated RBC % (auto) (0.0-0.2) /100WBC PT (9.9-13.0) SEC INR (0.9-1.1) Sodium (135-145) mmol/L Potassium (3.3-5.1) mmol/L Chloride (96-108) mmol/L Carbon Dioxide (22-29) mmol/L Anion Gap (12-20) BUN (9-16) mg/dL Creatinine (0.5-1.4) mg/dL Estim Creat Clear Calc Estimated GFR Random Glucose (60-115) mg/dL Calcium (8.4-10.2) mg/dL Total Bilirubin (0.0-1.0) mg/dL Direct Bilirubin (0.0-0.5) mg/dL AST (5-37) U/L ALT (0-40) U/L Alkaline Phosphatase (39-117) U/L Ammonia (13-55) umol/L Total Protein (6.5-8.0) g/dL Albumin (3.5-5.0) g/dL Ethyl Alcohol mg/dL COVID-19 (MARC) Negative COVID-19 Clin Com See Note <Alyx Stanley MD - Last Filed: 04/01/21 21:16> Lab Results 03/31/21 03/31/21 03/31/21 Range/Units 20:15 21:09 21:09 WBC 6.3 (4.8-10.8) X10*3/uL RBC 5.67 (4.60-5.80) X10*6/uL Hgb 17.7 (14.0-18.0) g/dl Hct 52.6 H (42.0-52.0) % MCV 92.8 (80.0-98.0) fL MCH 31.2 (27.0-33.0) pg MCHC 33.7 (31.0-36.0) g/dl RDW 11.6 (11.0-16.0) % Plt Count 251 (160-400) X10*3/uL MPV 9.5 (9.4-12.4) fL Immature Gran % (Auto) 1.3 H (0.0-0.4) % Neut % (Auto) 61.1 (45-73) % Lymph % (Auto) 28.6 (20-40) % Nuckolls % (Auto) 5.8 (2-11) % Eos % (Auto) 2.7 (0-4) % Baso % (Auto) 0.5 (0-2) % Lymph # (Auto) 1.8 (1.2-4.9) X10*3/uL Nuckolls # (Auto) 0.4 (0.1-1.2) X10*3/uL Eos # (Auto) 0.2 (0.0-0.4) X10*3/uL Baso # (Auto) 0.0 (0.0-0.2) X10*3/uL Abs Immat Gran (auto) 0.08 H (0.00-0.03) X10*3/uL Absolute Neuts (auto) 3.8 (2.0-8.3) x10*3/uL Absolute Nucleated RBC 0.000 (0.0-0.012) X10*3/uL Nucleated RBC % (auto) 0.0 (0.0-0.2) /100WBC PT (9.9-13.0) SEC INR (0.9-1.1) Sodium 138 (135-145) mmol/L Potassium 3.6 (3.3-5.1) mmol/L Chloride 101 (96-108) mmol/L Carbon Dioxide 25 (22-29) mmol/L Anion Gap 16 (12-20) BUN 18 H D (9-16) mg/dL Creatinine 1.15 (0.5-1.4) mg/dL Estim Creat Clear Calc 60.8 Estimated GFR > 60 Random Glucose 193 H (60-115) mg/dL Calcium 9.6 D (8.4-10.2) mg/dL Total Bilirubin 1.3 H (0.0-1.0) mg/dL Direct Bilirubin 1.0 H (0.0-0.5) mg/dL AST 72 H (5-37) U/L ALT 48 H (0-40) U/L Alkaline Phosphatase 104 (39-117) U/L Ammonia (13-55) umol/L Total Protein 9.2 H (6.5-8.0) g/dL Albumin 3.6 (3.5-5.0) g/dL Ethyl Alcohol mg/dL COVID-19 (MARC) Cancelled COVID-19 Clin Com Cancelled 03/31/21 03/31/21 03/31/21 Range/Units 21:09 21:09 21:09 WBC (4.8-10.8) X10*3/uL RBC (4.60-5.80) X10*6/uL Hgb (14.0-18.0) g/dl Hct (42.0-52.0) % MCV (80.0-98.0) fL MCH (27.0-33.0) pg MCHC (31.0-36.0) g/dl RDW (11.0-16.0) % Plt Count (160-400) X10*3/uL MPV (9.4-12.4) fL Immature Gran % (Auto) (0.0-0.4) % Neut % (Auto) (45-73) % Lymph % (Auto) (20-40) % Nuckolls % (Auto) (2-11) % Eos % (Auto) (0-4) % Baso % (Auto) (0-2) % Lymph # (Auto) (1.2-4.9) X10*3/uL Nuckolls # (Auto) (0.1-1.2) X10*3/uL Eos # (Auto) (0.0-0.4) X10*3/uL Baso # (Auto) (0.0-0.2) X10*3/uL Abs Immat Gran (auto) (0.00-0.03) X10*3/uL Absolute Neuts (auto) (2.0-8.3) x10*3/uL Absolute Nucleated RBC (0.0-0.012) X10*3/uL Nucleated RBC % (auto) (0.0-0.2) /100WBC PT 11.7 (9.9-13.0) SEC INR 1.0 (0.9-1.1) Sodium (135-145) mmol/L Potassium (3.3-5.1) mmol/L Chloride (96-108) mmol/L Carbon Dioxide (22-29) mmol/L Anion Gap (12-20) BUN (9-16) mg/dL Creatinine (0.5-1.4) mg/dL Estim Creat Clear Calc Estimated GFR Random Glucose (60-115) mg/dL Calcium (8.4-10.2) mg/dL Total Bilirubin (0.0-1.0) mg/dL Direct Bilirubin (0.0-0.5) mg/dL AST (5-37) U/L ALT (0-40) U/L Alkaline Phosphatase (39-117) U/L Ammonia 33 (13-55) umol/L Total Protein (6.5-8.0) g/dL Albumin (3.5-5.0) g/dL Ethyl Alcohol < 10 mg/dL COVID-19 (MARC) COVID-19 Clin Com 03/31/21 Range/Units 21:13 WBC (4.8-10.8) X10*3/uL RBC (4.60-5.80) X10*6/uL Hgb (14.0-18.0) g/dl Hct (42.0-52.0) % MCV (80.0-98.0) fL MCH (27.0-33.0) pg MCHC (31.0-36.0) g/dl RDW (11.0-16.0) % Plt Count (160-400) X10*3/uL MPV (9.4-12.4) fL Immature Gran % (Auto) (0.0-0.4) % Neut % (Auto) (45-73) % Lymph % (Auto) (20-40) % Nuckolls % (Auto) (2-11) % Eos % (Auto) (0-4) % Baso % (Auto) (0-2) % Lymph # (Auto) (1.2-4.9) X10*3/uL Nuckolls # (Auto) (0.1-1.2) X10*3/uL Eos # (Auto) (0.0-0.4) X10*3/uL Baso # (Auto) (0.0-0.2) X10*3/uL Abs Immat Gran (auto) (0.00-0.03) X10*3/uL Absolute Neuts (auto) (2.0-8.3) x10*3/uL Absolute Nucleated RBC (0.0-0.012) X10*3/uL Nucleated RBC % (auto) (0.0-0.2) /100WBC PT (9.9-13.0) SEC INR (0.9-1.1) Sodium (135-145) mmol/L Potassium (3.3-5.1) mmol/L Chloride (96-108) mmol/L Carbon Dioxide (22-29) mmol/L Anion Gap (12-20) BUN (9-16) mg/dL Creatinine (0.5-1.4) mg/dL Estim Creat Clear Calc Estimated GFR Random Glucose (60-115) mg/dL Calcium (8.4-10.2) mg/dL Total Bilirubin (0.0-1.0) mg/dL Direct Bilirubin (0.0-0.5) mg/dL AST (5-37) U/L ALT (0-40) U/L Alkaline Phosphatase (39-117) U/L Ammonia (13-55) umol/L Total Protein (6.5-8.0) g/dL Albumin (3.5-5.0) g/dL Ethyl Alcohol mg/dL COVID-19 (M[facility]) Negative COVID-19 Clin Com See Note <Shirlene Frazier, BANK REPRESENTATIVE - Last Filed: 04/01/21 09:20> Lab Results 03/31/21 03/31/21 03/31/21 Range/Units 20:15 21:09 21:09 WBC 6.3 (4.8-10.8) X10*3/uL RBC 5.67 (4.60-5.80) X10*6/uL Hgb 17.7 (14.0-18.0) g/dl Hct 52.6 H (42.0-52.0) % MCV 92.8 (80.0-98.0) fL MCH 31.2 (27.0-33.0) pg MCHC 33.7 (31.0-36.0) g/dl RDW 11.6 (11.0-16.0) % Plt Count 251 (160-400) X10*3/uL MPV 9.5 (9.4-12.4) fL Immature Gran % (Auto) 1.3 H (0.0-0.4) % Neut % (Auto) 61.1 (45-73) % Lymph % (Auto) 28.6 (20-40) % Nuckolls % (Auto) 5.8 (2-11) % Eos % (Auto) 2.7 (0-4) % Baso % (Auto) 0.5 (0-2) % Lymph # (Auto) 1.8 (1.2-4.9) X10*3/uL Nuckolls # (Auto) 0.4 (0.1-1.2) X10*3/uL Eos # (Auto) 0.2 (0.0-0.4) X10*3/uL Baso # (Auto) 0.0 (0.0-0.2) X10*3/uL Abs Immat Gran (auto) 0.08 H (0.00-0.03) X10*3/uL Absolute Neuts (auto) 3.8 (2.0-8.3) x10*3/uL Absolute Nucleated RBC 0.000 (0.0-0.012) X10*3/uL Nucleated RBC % (auto) 0.0 (0.0-0.2) /100WBC PT (9.9-13.0) SEC INR (0.9-1.1) Sodium 138 (135-145) mmol/L Potassium 3.6 (3.3-5.1) mmol/L Chloride 101 (96-108) mmol/L Carbon Dioxide 25 (22-29) mmol/L Anion Gap 16 (12-20) BUN 18 H D (9-16) mg/dL Creatinine 1.15 (0.5-1.4) mg/dL Estim Creat Clear Calc 60.8 Estimated GFR > 60 Random Glucose 193 H (60-115) mg/dL Calcium 9.6 D (8.4-10.2) mg/dL Total Bilirubin 1.3 H (0.0-1.0) mg/dL Direct Bilirubin 1.0 H (0.0-0.5) mg/dL AST 72 H (5-37) U/L ALT 48 H (0-40) U/L Alkaline Phosphatase 104 (39-117) U/L Ammonia (13-55) umol/L Total Protein 9.2 H (6.5-8.0) g/dL Albumin 3.6 (3.5-5.0) g/dL Ethyl Alcohol mg/dL COVID-19 (M[facility]) Cancelled COVID-19 Clin Com Cancelled 03/31/21 03/31/21 03/31/21 Range/Units 21:09 21:09 21:09 WBC (4.8-10.8) X10*3/uL RBC (4.60-5.80) X10*6/uL Hgb (14.0-18.0) g/dl Hct (42.0-52.0) % MCV (80.0-98.0) fL MCH (27.0-33.0) pg MCHC (31.0-36.0) g/dl RDW (11.0-16.0) % Plt Count (160-400) X10*3/uL MPV (9.4-12.4) fL Immature Gran % (Auto) (0.0-0.4) % Neut % (Auto) (45-73) % Lymph % (Auto) (20-40) % Nuckolls % (Auto) (2-11) % Eos % (Auto) (0-4) % Baso % (Auto) (0-2) % Lymph # (Auto) (1.2-4.9) X10*3/uL Nuckolls # (Auto) (0.1-1.2) X10*3/uL Eos # (Auto) (0.0-0.4) X10*3/uL Baso # (Auto) (0.0-0.2) X10*3/uL Abs Immat Gran (auto) (0.00-0.03) X10*3/uL Absolute Neuts (auto) (2.0-8.3) x10*3/uL Absolute Nucleated RBC (0.0-0.012) X10*3/uL Nucleated RBC % (auto) (0.0-0.2) /100WBC PT 11.7 (9.9-13.0) SEC INR 1.0 (0.9-1.1) Sodium (135-145) mmol/L Potassium (3.3-5.1) mmol/L Chloride (96-108) mmol/L Carbon Dioxide (22-29) mmol/L Anion Gap (12-20) BUN (9-16) mg/dL Creatinine (0.5-1.4) mg/dL Estim Creat Clear Calc Estimated GFR Random Glucose (60-115) mg/dL Calcium (8.4-10.2) mg/dL Total Bilirubin (0.0-1.0) mg/dL Direct Bilirubin (0.0-0.5) mg/dL AST (5-37) U/L ALT (0-40) U/L Alkaline Phosphatase (39-117) U/L Ammonia 33 (13-55) umol/L Total Protein (6.5-8.0) g/dL Albumin (3.5-5.0) g/dL Ethyl Alcohol < 10 mg/dL COVID-19 (M[facility]) COVID-19 Clin Com 03/31/21 Range/Units 21:13 WBC (4.8-10.8) X10*3/uL RBC (4.60-5.80) X10*6/uL Hgb (14.0-18.0) g/dl Hct (42.0-52.0) % MCV (80.0-98.0) fL MCH (27.0-33.0) pg MCHC (31.0-36.0) g/dl RDW (11.0-16.0) % Plt Count (160-400) X10*3/uL MPV (9.4-12.4) fL Immature Gran % (Auto) (0.0-0.4) % Neut % (Auto) (45-73) % Lymph % (Auto) (20-40) % Nuckolls % (Auto) (2-11) % Eos % (Auto) (0-4) % Baso % (Auto) (0-2) % Lymph # (Auto) (1.2-4.9) X10*3/uL Nuckolls # (Auto) (0.1-1.2) X10*3/uL Eos # (Auto) (0.0-0.4) X10*3/uL Baso # (Auto) (0.0-0.2) X10*3/uL Abs Immat Gran (auto) (0.00-0.03) X10*3/uL Absolute Neuts (auto) (2.0-8.3) x10*3/uL Absolute Nucleated RBC (0.0-0.012) X10*3/uL Nucleated RBC % (auto) (0.0-0.2) /100WBC PT (9.9-13.0) SEC INR (0.9-1.1) Sodium (135-145) mmol/L Potassium (3.3-5.1) mmol/L Chloride (96-108) mmol/L Carbon Dioxide (22-29) mmol/L Anion Gap (12-20) BUN (9-16) mg/dL Creatinine (0.5-1.4) mg/dL Estim Creat Clear Calc Estimated GFR Random Glucose (60-115) mg/dL Calcium (8.4-10.2) mg/dL Total Bilirubin (0.0-1.0) mg/dL Direct Bilirubin (0.0-0.5) mg/dL AST (5-37) U/L ALT (0-40) U/L Alkaline Phosphatase (39-117) U/L Ammonia (13-55) umol/L Total Protein (6.5-8.0) g/dL Albumin (3.5-5.0) g/dL Ethyl Alcohol mg/dL COVID-19 ([facility]) Negative COVID-19 Clin Com See Note <RUBA Fowler - Last Filed: 04/01/21 12:23> Discharge Plan Discharge Clinical Impression: Acute psychosis <Alyx Stanley MD - Last Filed: 04/01/21 21:16> Prescriptions: No Action amlodipine 2.5 mg tablet 2.5 mg PO DAILY RF: 0 hydrochlorothiazide 12.5 mg capsule 1 cap PO DAILY RF: 0 haloperidol decanoate 50 mg/mL solution 50 mg IM Q28D RF: 0 mirtazapine 15 mg tablet 1 tab PO BEDTIME RF: 0 ergocalciferol (vitamin D2) 1,250 mcg (50,000 unit) capsule 1 cap PO MO RF: 0 olanzapine 20 mg tablet 1 tab PO QAM RF: 0 Odefsey 200-25-25 mg tablet 1 tab PO DAILY RF: 0 levetiracetam 500 mg tablet 500 mg PO BID Qty: 60 RF: 0 loperamide 2 mg Tablet 2 mg PO Q6H PRN (Reason: Constipation) RF: 0 magnesium hydroxide [Milk of Magnesia] 400 mg/5 mL Suspension 2,400 mg PO DAILY PRN (Reason: Constipation) RF: 0 <Alyx Stanley MD - Last Filed: 04/01/21 21:16>
[2021-03-31 19:40] VITALS: RESP 24
[2021-03-31] MEDS: LORazepam 2 MG/ML VIAL IM (19:40)
[2021-03-31] MEDS: Haloperidol Lactate 5 MG/ML VIAL IM (19:40)
[2021-03-31 19:48] VITALS: BMI 20.3
[2021-03-31 19:55] VITALS: RESP 20
[2021-03-31 20:10] VITALS: RESP 20
[2021-03-31 20:25] VITALS: RESP 18
[2021-03-31 20:40] VITALS: BP 129/90; PULSE 119; RESP 16; TEMP 36.9; O2SAT 93
[2021-03-31 21:21] LABS: MANUAL DIFF FLAG NO
[2021-03-31 21:28] LABS: Basophils Percent Auto 0.5 % (0-2); Eosinophils Absolute Auto 0.2 X10*3/uL (0.0-0.4); Eosinophils Percent Auto 2.7 % (0-4); Hematocrit 52.6 % (42.0-52.0); Hemoglobin 17.7 g/dl (14.0-18.0); Imm Gran Abs Auto 0.08 X10*3/uL (0.00-0.03); Imm Gran Pct Auto 1.3 % (0.0-0.4); Lymphocytes Absolute Auto 1.8 X10*3/uL (1.2-4.9); Lymphocytes Percent Auto 28.6 % (20-40); Mean Corpuscular HGB Conc 33.7 g/dl (31.0-36.0); Mean Corpuscular Hemoglobin 31.2 pg (27.0-33.0); Mean Corpuscular Volume 92.8 fL (80.0-98.0); Mean Platelet Volume 9.5 fL (9.4-12.4); Monocytes Absolute Auto 0.4 X10*3/uL (0.1-1.2); Monocytes Percent Auto 5.8 % (2-11); Neutrophils Absolute Auto 3.8 x10*3/uL (2.0-8.3); Neutrophils Percent Auto 61.1 % (45-73); Platelet Count 251 X10*3/uL (160-400); Red Blood Count 5.67 X10*6/uL (4.60-5.80); Red Cell Distribution Width 11.6 % (11.0-16.0); White Blood Count 6.3 X10*3/uL (4.8-10.8)
[2021-03-31 21:29] LABS: Ammonia 33 umol/L (13-55)
[2021-03-31 21:30] LABS: Prothrombin Time 11.7 SEC (9.9-13.0)
[2021-03-31 21:34] LABS: Ethanol < 10 mg/dL
[2021-03-31 21:38] LABS: Alanine Aminotransferase 48 U/L (0-40); Albumin Level 3.6 g/dL (3.5-5.0); Alkaline Phosphatase 104 U/L (39-117); Anion Gap 16 (12-20); Aspartate Amino Transferase 72 U/L (5-37); Bilirubin Total 1.3 mg/dL (0.0-1.0); Blood Urea Nitrogen 18 mg/dL (9-16); Calcium 9.6 mg/dL (8.4-10.2); Carbon Dioxide 25 mmol/L (22-29); Chloride 101 mmol/L (96-108); Creatinine Clr Calc Pharmacy 60.8; Estimated Glomerular Filt Rate > 60; Glucose Random 193 mg/dL (60-115); Potassium 3.6 mmol/L (3.3-5.1); Sodium 138 mmol/L (135-145); Total Protein 9.2 g/dL (6.5-8.0)
[2021-03-31 21:43] LABS: COVID-19 Test Negative (Negative)
--- NOTE | 2021-04-01 05:55 | PC.NURSE ---
Patient slept through the night, no distress observed/reported, [facility] referral completed and confirmed, patient will be evaluated in the morning, med rec completed/pending providers approval, behavior calm follows instruction well, express needs well, VSS, Labs unremarkable, patient had one episode bladder incontinence, gait intact and independent, patient is HIV positive, VSS, will continue to monitor.
[2021-04-01 06:38] VITALS: BP 146/109; PULSE 119; TEMP 37.1; O2SAT 98
--- NOTE | 2021-04-01 07:35 | PC.NURSE ---
patient appears to remain at rest at present, respirations are even and unlabored, patient appears in no distress
[2021-04-01 09:17] VITALS: BP 146/109; PULSE 119
[2021-04-01] MEDS: OLANZapine 10 MG TABLET 20 MG PO (09:17)
[2021-04-01] MEDS: amLODIPine Besylate 2.5 MG TABLET PO (09:17)
[2021-04-01] MEDS: levETIRAcetam 500 MG TABLET PO ×2 (09:17→21:12)
[2021-04-01] MEDS: hydroCHLOROthiazide 12.5 MG TABLET PO (09:18)
--- NOTE | 2021-04-01 09:41 | PC.NURSE ---
patient walks back to room from bathroom with pants around ankles patient redirected regarding pulling up pants but patient refused.
--- NOTE | 2021-04-01 12:55 | PC.NURSE ---
client asked to sign 3 day notice. client advised that is not available right now.
--- NOTE | 2021-04-01 13:58 | PC.NURSE ---
client self dialoguing in room asking for three day notice. repeatedly brain informed him cant file three day notice on weekend.
--- NOTE | 2021-04-01 15:45 | PC.NURSE ---
spoke to campus administrator at [facility] who stated she would drop off a blister pack card of [email or web address] for client
[2021-04-01] MEDS: Mirtazapine 15 MG TABLET PO (21:12)
[2021-04-01] MEDS: HaloperidoL 5 MG TABLET 10 MG PO (21:45)
[2021-04-02 01:14] VITALS: BP 128/83; PULSE 135; RESP 18; TEMP 36.3; O2SAT 97
--- NOTE | 2021-04-02 05:32 | PC.NURSE ---
Patient total slept 4 hours only up since 0300, patient loud and disruptive at [id number], thought content paranoid and delusional, thought process non coherent, Patient's disposition is section 12 inpatient bed search per N, patient requires constant redirection, VS at baseline, will continue to monitor.
--- NOTE | 2021-04-02 07:18 | PC.NURSE ---
patient appeared to be awake upon t/w's arrival to shift, patient periodically loud and redirectable regarding wearing clothing appropriately (pat simply seems to prefer naked lounging) patient appears in no distress
[2021-04-02 09:31] VITALS: BP 131/90; PULSE 126; RESP 18; O2SAT 93
[2021-04-02 10:44] VITALS: BP 131/90; PULSE 126
[2021-04-02 20:28] VITALS: BP 135/100; PULSE 120; RESP 20; TEMP 36.5; O2SAT 95
[2021-04-02] MEDS: Mirtazapine 15 MG TABLET PO (21:04)
[2021-04-02] MEDS: levETIRAcetam 500 MG TABLET PO (21:04)
[2021-04-02 23:20] LABS: Appearance Urine CLEAR; Color Urine YELLOW; Glucose Urine UA NEG (NEG); Leukocyte Esterase Urine NEG (NEG); Nitrite Urine NEG (NEG); Specific Gravity - Urine >= 1.030 (1.005-1.025); UACC Culture Trigger NO; Urine Blood NEG (NEG); Urine Ketones 15 MG/DL (NEG); Urine Protein 2+ MG/DL (NEG-TRACE)
[2021-04-02 23:32] LABS: Bacteria Urine 1+ /LPF; Mucus Urine 1+ /LPF; Squamous Epithelial Cell Urine 1+ /LPF
[2021-04-02 23:36] LABS: Amphetamine Screen Urine Not Detected (Not Detect); Barbiturates, Urine Not Detected (Not Detect); Benzodiazepines Screen Urine Not Detected (Not Detect); Cannabinoid Screen Urine Not Detected (Not Detect); Cocaine Screen Urine Not Detected (Not Detect); Fentanyl, urine POSITIVE (Not Detect); Opiate Screen Urine Not Detected (Not Detect); Phencyclidine Screen Urine Not Detected (Not Detect)
[2021-04-03 00:48] VITALS: BP 115/85; PULSE 115; RESP 16; TEMP 37.1; O2SAT 96
[2021-04-03] MEDS: HaloperidoL 5 MG TABLET 10 MG PO (00:59)
--- NOTE | 2021-04-03 05:13 | PC.NURSE ---
Patient slept through the night, patient received Haldol 10 mg po with + effect per [facility] order, patient is less delusional seems clearing, disposition unchanged section 12 inpatient bed search, med compliant, behavior non disruptive, will continue to monitor.
--- NOTE | 2021-04-03 07:13 | PC.NURSE ---
patient appeared asleep at beginning of shift, respirations are even and unlabored patient appears in no distress
[2021-04-03] MEDS: hydroCHLOROthiazide 12.5 MG TABLET PO (08:19)
[2021-04-03] MEDS: OLANZapine 10 MG TABLET 20 MG PO (08:19)
[2021-04-03 08:20] VITALS: BP 115/85; PULSE 115
[2021-04-03] MEDS: levETIRAcetam 500 MG TABLET PO ×2 (08:20→22:41)
[2021-04-03] MEDS: amLODIPine Besylate 2.5 MG TABLET PO (08:20)
[2021-04-03] MEDS: Ergocalciferol (Vitamin D2) 1,250 MCG CAPSULE 1250 MCG PO (10:08)
[2021-04-03 15:45] VITALS: BP 118/82; PULSE 100; RESP 18; TEMP 36.3; O2SAT 95
--- NOTE | 2021-04-03 17:57 | PC.NURSE ---
Pt remains alert and oriented x4, calm and cooperative. Pt aware o fbeing admitted and agrees to plan. Vitals stable. Pt left unit in wheelchair without issues.
--- NOTE | 2021-04-03 19:17 | HO.PSYADMNOT ---
HPI Date of Service: 04/03/21 Chief Complaint: Delusions Sources of Information: patient interviewed, chart reviewed and crisis/core team assessment reviewed HPI Subjective Notes: Moses Warning and Conditional Voluntary Healthcare Proxy: Yes Guardianship: Yes Medical Problems Affecting Mental Status: No Narrative: Aristeo is a 65-year-old male who carries a dx of dementia, schizoaffective disorder, bipolar type, remote hx of substance use. Has co-morbid dx of HIV, hepatitis. He presented to [facility] via EMS [facility] on 03/[facility]/21 due to acute agitation, psychosis, and delusional ideations in context of non-adherence with medications. Per EMS report, pt was swinging at them, threatening staff, non-cooperative with transfer, required IM haldol 5 mg and ativan 2 mg with good effect. Per RN at his [facility], Pt has been refusing his medications and has been decompensating, as he had not had issues with aggression at baseline. He last received haldol dec on 03/30/21. Precipitating factors include increased social isolation in context of the covid-19 pandemic, as he used to attend a day program.? Pt was evaluated this evening and upon inquiry he reports ?I just had my meds,? says they are helping. He reports his sleep is good and he is feeling ?sleepy.? Appetite is ?okay.? Mood is ?good.? I asked about hallucinations and pt reports he has ?mind telepathy? and that ?it?s a gift from the president, for going to war and winning, we havent lost a war yet.? Pt also states ?you know how many spirits you have in your body?? He presents with disorganized thoughts and loose associations. He is laughing incongruently during interview, unclear if he is responding to internal stimuli, otherwise he is pleasant and cooperative. He denies any stressors. Denies anger or agitation. When asked about his past psych history, pt replied ?You ever heard of manic depression or schizophrenia? im a little bit of both,? also states he is a ?manic depressive.? Says he feels safe, denies SI/SIB/HI. 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 Past Psychiatric History: -Current medication: Haldol Dec 50 mg Q28 days, olanzapine 20 mg QHS, remeron 15 mg QHS. Milo Order expires May 05, 2021. -Jass?s order: haldol dec 25 mg IM Qmo, zyprexa 20 mg QD, haldol 1.5 mg BID PRN. Alternatives risperdal/ risperdal consta up to 8 mg QD/ 50 mg [id number] and seroquel up to Medical Evaluation Reviewed: Yes -Pt had recent admission to [facility] in 01/02/21 due to complaints of a possible seizure episode. Apparently a staff saw him shaking and falling to the floor with tonic-clonic movements. CBC significant for WBC of 6.2 otherwise unremarkable, CMP significant for lactic acid of 2.6, total bili of 1.2, AST of 93, ALT of 67, otherwise unremarkable. UA negative for infection. Lumbar puncture done in the ED showed increased lymphocytes as well as protein, patient was diagnosed with presumptive diagnosis of viral encephalitis given acyclovir and admitted to [facility] for further management. CT scan and brain MRI were negative for any acute findings. CSF analysis was done showing mildly elevated WBCs but encephalitis panel came back negative along with cultures and Gram stain. He was evaluated by infectious disease and neurology who recommended to discontinue antiviral and started pt on Keppra with good response.? -EKG showed sinus tachycardia with fusion complexes, left anterior fascicular block, inferior infarct, abnormal ECG, QTc 454. [facility] Medical History (Updated 04/04/21 @ 08:18 by Silvina Newell NP) Bipolar 1 disorder Dementia Hepatitis C HIV (human immunodeficiency virus infection) HTN (hypertension) Liver failure Social History: -Aristeo currently resides at [facility] in [place]. -Per chart, pt was born in [facility]. He has 8 brothers and 2 sisters. He is a , no children. [facility] staff reported that Aristeo has had no visitors since he has been there. Diagnostics Vital Signs (24Hr): Vital Signs - 24 hr 04/02/21 20:28 04/03/21 00:48 04/03/21 08:20 Temperature 97.7 F 98.7 F Pulse Rate 120 H 115 H 115 H Respiratory Rate 20 16 Blood Pressure 135/100 H 115/85 115/85 Pulse Oximetry 95 96 04/03/21 15:45 Temperature 97.4 F Pulse Rate 100 Respiratory Rate 18 Blood Pressure 118/82 Pulse Oximetry 95 Body Mass Index 20.3 Labs Results: 03/31/21 21:09 03/31/21 21:09 Labs: Laboratory Results - last 48 hr 04/02/21 04/02/21 23:00 23:00 Urine Color YELLOW Urine Appearance CLEAR Urine pH 6.0 Ur Specific [place] >= 1.030 H Urine Protein 2+ H Urine Glucose (UA) NEG Urine Ketones 15 Urine Blood NEG Urine Nitrite NEG Ur Leukocyte Esterase NEG Urine RBC 1-4 Urine WBC 1-4 Ur Squamous Epith Cells 1+ Urine Bacteria 1+ Hyaline Casts 10-14 Urine Mucus 1+ Urine Opiates Screen Not Detected Urine Fentanyl Screen POSITIVE H Ur Barbiturates Screen Not Detected Ur Phencyclidine Scrn Not Detected Ur Amphetamines Screen Not Detected U Benzodiazepines Scrn Not Detected Urine Cocaine Screen Not Detected U Marijuana (THC) Screen Not Detected Meds/Allergies Meds Home Medications Acetaminophen (Acetaminophen 325 Mg Tablet) 650 mg PO Q6H PRN PRN Reason: Headache/Pain Mild Scale (1-3) Al Hydroxide/Mg Hydroxide (Magnesium Hydrox/Alum Hydrox 30 Ml Oral.Susp) 30 ml PO Q6H PRN PRN Reason: Heartburn/Nausea Amlodipine Besylate (Amlodipine Besylate 2.5 Mg Tablet) 2.5 mg PO DAILY [facility]; Protocol Last Admin: 04/03/21 08:20 Dose: 2.5 mg Documented by: Ergocalciferol (Ergocalciferol (Vitamin D2) 1,250 Mcg Capsule) 1,250 mcg PO MO [facility] Last Admin: 04/03/21 10:08 Dose: 1,250 mcg Documented by: Haloperidol Decanoate (Haloperidol Decanoate 50 Mg/Ml Ampul) 50 mg IM Q28D [facility] Hydrochlorothiazide (Hydrochlorothiazide 12.5 Mg Tablet) 12.5 mg PO DAILY [facility]; Protocol Last Admin: 04/03/21 08:19 Dose: 12.5 mg Documented by: Hydroxyzine HCl (Hydroxyzine Hcl 25 Mg Tablet) 25 mg PO Q6H PRN PRN Reason: Anxiety Levetiracetam (Levetiracetam 500 Mg Tablet) 500 mg PO BID [facility] Last Admin: 04/03/21 22:41 Dose: 500 mg Documented by: Loperamide HCl (Loperamide Hcl 2 Mg Capsule) 2 mg PO Q6H PRN PRN Reason: Constipation Magnesium Hydroxide (Milk Of Magnesia 30 Ml Oral.Susp) 30 ml PO DAILY PRN PRN Reason: Constipation Magnesium Hydroxide (Milk Of Magnesia 30 Ml Oral.Susp) 30 ml PO DAILY PRN PRN Reason: Constipation Mirtazapine (Mirtazapine 15 Mg Tablet) 15 mg PO BEDTIME [facility] Last Admin: 04/03/21 21:31 Dose: 15 mg Documented by: Patient Own Odefsey 1 each PO DAILY [facility] Last Admin: 04/03/21 08:20 Dose: 1 each Documented by: Olanzapine (Olanzapine 10 Mg Tablet) 20 mg PO DAILY [facility] Last Admin: 04/03/21 08:19 Dose: 20 mg Documented by: Trazodone HCl (Trazodone Hcl 50 Mg Tablet) 50 mg PO BEDTIME PRN PRN Reason: Insomnia Allergies Allergies Allergy/AdvReac Type Severity Reaction Status Date / Time No Known Allergies Allergy Unverified 01/28/20 16:07 [No Known Allergies*] Mental Status Exam Mental Status Exam Narrative: A&Ox1 (person). Somewhat unkempt, frail and appears older than stated age. Poor eye contact, inattentive. No Tics or Tremors. No abnormal involuntary movements. Calm, cooperative, however diffiuclt to engage in meaningful conversation. Non-pressured speech, non-spontaneous with regular rate and rhythm, normal volume and prosody. No prolonged speech latency, somewhat dysarthric and difficult to understand, mumbling. Mood is ?good,? affect is appropriate. Denies SI/SIB/HI upon inquiry. Denies A/VH or delusional thought content, however thoughts are disorganized, loose associations, bizarre statements, and pt may be responding to internal stimuli as he is incongruently laughing. Has cognitive impairment r/t dementia. Insight/ Judgment limited but adequate. Assessment & Plan Assessment & Plan (1) Schizoaffective disorder, bipolar type: Status: Acute Code(s): F25.0 - Schizoaffective disorder, bipolar type (2) Dementia: Status: Acute Code(s): F03.90 - Unspecified dementia without behavioral disturbance Assessment and Plan: Pt is a 65 y.o. male who carries a dx of bipolar disorder, however sx are more in line with schizoaffective disorder bipolar type, as he presents with disorganized thought content, agitation, and paranoia. He has mild cognitive impairment r/t dementia and mental health dx. He is currently non-adherent with PO medications and is presenting [facility] with decompensation in sx. He was aggressive on transport and required IM haldol, however since arriving to the unit he has been med compliant and pleasant. Last received haldol dec on 03/30/21. Has community Jass's Order in chart. Seroquel and risperdal are listed as alternatives. Pt will continue on OP med regimen at this time without changes and will monitor for benefit. Monitor response to medications. Monitor for safety in the milieu. Discharge on stabilization. Patient seen. Chart reviewed. Discussed with team. Obtain collateral contact info?as needed Reason for continued inpatient stay Substantial Risk for: rapid decompensation and med/psych decompensation
[2021-04-03] MEDS: Mirtazapine 15 MG TABLET PO (21:31)
[2021-04-03 21:50] VITALS: BP 114/65; PULSE 108; RESP 18; TEMP 36.5; O2SAT 94
[2021-04-04] MEDS: OLANZapine 10 MG TABLET 20 MG PO (08:24)
[2021-04-04] MEDS: levETIRAcetam 500 MG TABLET PO ×2 (08:25→21:25)
--- NOTE | 2021-04-04 09:06 | PC.NURSE ---
Patient allowed nurse to start vital signs, then once the BP cuff started to squeeze the patient ripped it off. Unable to get blood pressure or any other vital signs therefore unable to give medications with parameters
[2021-04-04 09:36] LABS: Cholesterol 142 mg/dL; HDL Cholesterol 29 mg/dL; LDL Cholesterol Calculated 89 mg/dl; Triglycerides 122 mg/dL
[2021-04-04 09:42] LABS: Estimated Average Glucose 114 mg/dL; Hemoglobin A1C 152.6723 umol/L; Hemoglobin A1c % 5.6 %
[2021-04-04 09:54] LABS: Free T4 (Free Thyroxine) 1.31 ng/dL (0.71-1.85); Thyroid Stimulating Hormone 0.59 uIU/mL (0.32-4.0)
--- NOTE | 2021-04-04 09:56 | P.PNPSI_ITS ---
Subjective Subjective Date of Service: 04/04/21 Reason For Visit: Delusions Subjective Notes: Moses Warning and Conditional Voluntary Healthcare Proxy: Yes Guardianship: Yes Medical Problems Affecting Mental Status: No Interim History: Patient seen and discussed with team. Patient evaluated this morning and upon interview he presents with psychosis, internally preoccupied, laughing incongruently, at times moving his arms as if fighting the air. He has been med adherent. Pt lying down in bed with breakfast tray. Pt asks did i get two lobsters? that?s what i ordered along with four kind crab legs, steamers, and mussels. Says his mood is fine. Sleep was good. Denies stressors. Pt has loose associations, at one time interrupts and says They think im a drunk, they think im a dope addict. Im missing a lot of money. ? In the milieu, patient is safe and isolative in behavior. Denies SI/SIB/HI upon inquiry. Denies irritability or assaultive ideation. Says he feels safe. Medication Compliance: Yes Side effects from medications: No Attending Groups: No Review of Systems Acute medical concerns: No Medical Review of Systems: unchanged Mental Status Exam Mental Status Exam Narrative: Alert but not oriented (responds to Aristeo although told medical staff assistant his name was not Aristeo, knows he is in the hospital but does not know which one, does not know date, does not know why he is in the hospital). Hygiene okay, frail and appears older than stated age. Poor eye contact, inattentive. No Tics or Tremors. No abnormal involuntary movements but at times gesturing to air. Calm, cooperative to his ability, however difficult to engage in meaningful conversation. Non-pressured speech, non-spontaneous with regular rate and rhythm, normal volume and prosody. No prolonged speech latency, somewhat dysarthric and difficult to understand, mumbling. Mood is ?fine,? affect is appropriate. Denies SI/SIB/HI upon inquiry. Denies A/VH or delusional thought content, however thoughts are disorganized, loose associations, bizarre statements, and pt may be responding to internal stimuli as he is incongruently laughing. Has cognitive impairment r/t dementia. Insight/ Judgment limited but adequate. Diagnostics Vital Signs (24Hr): Vital Signs - 24 hr 04/03/21 15:45 04/03/21 21:50 Temperature 97.4 F 97.7 F Pulse Rate 100 108 H Respiratory Rate 18 18 Blood Pressure 118/82 114/65 Pulse Oximetry 95 94 Body Mass Index 20.3 Labs Results: 03/31/21 21:09 03/31/21 21:09 Labs: Laboratory Results - last 48 hr 04/02/21 04/02/21 04/04/21 23:00 23:00 09:12 Estimat Average Glucose 114 Hemoglobin A1c % 5.6 Magnesium Triglycerides Cholesterol LDL Cholesterol, Calc HDL Cholesterol TSH Free T4 Urine Color YELLOW Urine Appearance CLEAR Urine pH 6.0 Ur Specific [place] >= 1.030 H Urine Protein 2+ H Urine Glucose (UA) NEG Urine Ketones 15 Urine Blood NEG Urine Nitrite NEG Ur Leukocyte Esterase NEG Urine RBC 1-4 Urine WBC 1-4 Ur Squamous Epith Cells 1+ Urine Bacteria 1+ Hyaline Casts 10-14 Urine Mucus 1+ Urine Opiates Screen Not Detected Urine Fentanyl Screen POSITIVE H Ur Barbiturates Screen Not Detected Ur Phencyclidine Scrn Not Detected Ur Amphetamines Screen Not Detected U Benzodiazepines Scrn Not Detected Urine Cocaine Screen Not Detected U Marijuana (THC) Screen Not Detected 04/04/21 09:12 Estimat Average Glucose Hemoglobin A1c % Magnesium 2.0 Triglycerides 122 Cholesterol 142 LDL Cholesterol, Calc 89 HDL Cholesterol 29 TSH 0.59 Free T4 1.31 Urine Color Urine Appearance Urine pH Ur Specific [place] Urine Protein Urine Glucose (UA) Urine Ketones Urine Blood Urine Nitrite Ur Leukocyte Esterase Urine RBC Urine WBC Ur Squamous Epith Cells Urine Bacteria Hyaline Casts Urine Mucus Urine Opiates Screen Urine Fentanyl Screen Ur Barbiturates Screen Ur Phencyclidine Scrn Ur Amphetamines Screen U Benzodiazepines Scrn Urine Cocaine Screen U Marijuana (THC) Screen Medications Medications Current Medications Acetaminophen (Acetaminophen 325 Mg Tablet) 650 mg PO Q6H PRN PRN Reason: Headache/Pain Mild Scale (1-3) Al Hydroxide/Mg Hydroxide (Magnesium Hydrox/Alum Hydrox 30 Ml Oral.Susp) 30 ml PO Q6H PRN PRN Reason: Heartburn/Nausea Amlodipine Besylate (Amlodipine Besylate 2.5 Mg Tablet) 2.5 mg PO DAILY [facility]; Protocol Last Admin: 04/04/21 08:26 Dose: Not Given Documented by: Ergocalciferol (Ergocalciferol (Vitamin D2) 1,250 Mcg Capsule) 1,250 mcg PO MO [facility] Last Admin: 04/03/21 10:08 Dose: 1,250 mcg Documented by: Haloperidol Decanoate (Haloperidol Decanoate 50 Mg/Ml Ampul) 50 mg IM Q28D [facility] Hydrochlorothiazide (Hydrochlorothiazide 12.5 Mg Tablet) 12.5 mg PO DAILY [facility]; Protocol Last Admin: 04/04/21 08:26 Dose: Not Given Documented by: Hydroxyzine HCl (Hydroxyzine Hcl 25 Mg Tablet) 25 mg PO Q6H PRN PRN Reason: Anxiety Levetiracetam (Levetiracetam 500 Mg Tablet) 500 mg PO BID [facility] Last Admin: 04/04/21 08:25 Dose: 500 mg Documented by: Loperamide HCl (Loperamide Hcl 2 Mg Capsule) 2 mg PO Q6H PRN PRN Reason: Constipation Magnesium Hydroxide (Milk Of Magnesia 30 Ml Oral.Susp) 30 ml PO DAILY PRN PRN Reason: Constipation Magnesium Hydroxide (Milk Of Magnesia 30 Ml Oral.Susp) 30 ml PO DAILY PRN PRN Reason: Constipation Mirtazapine (Mirtazapine 15 Mg Tablet) 15 mg PO BEDTIME [facility] Last Admin: 04/03/21 21:31 Dose: 15 mg Documented by: Patient Own Odefsey 1 each PO DAILY [facility] Last Admin: 04/03/21 08:20 Dose: 1 each Documented by: Olanzapine (Olanzapine 10 Mg Tablet) 20 mg PO DAILY [facility] Last Admin: 04/04/21 08:24 Dose: 20 mg Documented by: Trazodone HCl (Trazodone Hcl 50 Mg Tablet) 50 mg PO BEDTIME PRN PRN Reason: Insomnia Allergies Allergies Allergy/AdvReac Type Severity Reaction Status Date / Time No Known Allergies Allergy Unverified 01/28/20 16:07 [No Known Allergies*] Assessment & Plan Assessment & Plan (1) Schizoaffective disorder, bipolar type: Status: Acute Code(s): F25.0 - Schizoaffective disorder, bipolar type (2) Dementia: Status: Acute Code(s): F03.90 - Unspecified dementia without behavioral disturbance Assessment and Plan: Pt is a 65 y.o. male who carries a dx of bipolar disorder, however sx are more in line with schizoaffective disorder bipolar type, as he presents with disorganized thought content, agitation, and paranoia. He has mild cognitive impairment r/t dementia and mental health dx. He is currently non-adherent with PO medications and is [facility] with decompensation in sx. He was aggressive on transport and required IM haldol, however since arriving to the unit he has been med compliant and pleasant. Last received haldol dec on 03/30/21. Has community Jass's Order in chart. Seroquel and risperdal are listed as alternatives. Plan: Pt will continue on OP med regimen at this time. Changed zyprexa to bedtime. Monitor response to medications. Monitor for safety in the milieu. Discharge on stabilization. Patient seen. Chart reviewed. Discussed with team. Obtain collateral contact info?as needed I spent minutes with the patient and/or on the patient floor today, greater than?50% of which was spent counseling/coordinating care. Reason for contiued inpatient stay Substantial Risk for: inability to function and med/psych decompensation
[2021-04-04 10:09] LABS: Vitamin B12 1338 pg/mL (200-900)
[2021-04-04 19:30] VITALS: BP 137/68; PULSE 113; RESP 17; TEMP 37.6; O2SAT 94
[2021-04-04] MEDS: Mirtazapine 15 MG TABLET PO (21:25)
[2021-04-05 06:00] VITALS: BP 116/79; PULSE 122; TEMP 36.6; O2SAT 92
[2021-04-05] MEDS: hydrOXYzine HCL 25 MG TABLET PO (08:28)
[2021-04-05] MEDS: levETIRAcetam 500 MG TABLET PO ×2 (08:28→20:37)
[2021-04-05 08:29] VITALS: BP 116/79; PULSE 122
[2021-04-05] MEDS: amLODIPine Besylate 2.5 MG TABLET PO (08:29)
[2021-04-05] MEDS: hydroCHLOROthiazide 12.5 MG TABLET PO (08:29)
--- NOTE | 2021-04-05 13:24 | HO.PSYCHPN ---
Subjective Subjective Date of Service: 04/05/21 Reason For Visit: Delusions Subjective Notes: Pedraza Order Interim History: The nursing staff reported the patient has been psychotic, talking to himself and refusing medications. He was chemically restrained on the emergency room. Today we review his legal paperwork, his guardian is not answering and he has several years order for Haldol and Zyprexa. We discussed on teams that the patient cannot refuse his Zyprexa at night, if he refuses we will get the Zyprexa intramuscularly. On interview, the patient was delusional and disorganized with the staff at AM but he took a shower. He refused to engage in a conversation with this prescriber. Mental Status Exam Mental Status Exam Patient Appearance: Disheveled and Unkempt Patient Orientation: Person Level of Consciousness: Restless Patient Behavior: Aggressive Mood Description: Angry Affect Description: Constricted Patient Cognition Impaired: Yes Ability to Follow Directions: Fair Speech Pattern: Impoverished Hallucinations: Auditory Delusions: Bizarre (She states that he is Arcadio) Perceptual Disturbances: Hallucinations Thought Process: Illogical and Distracted Thought Content: positive for Thought Blocking Judgement: Poor Diagnostics Vital Signs (24Hr): Vital Signs - 24 hr 04/04/21 19:30 04/05/21 06:00 04/05/21 08:29 Temperature 99.6 F 97.8 F Pulse Rate 113 H 122 H 122 H Respiratory Rate 17 Blood Pressure 137/68 116/79 116/79 Pulse Oximetry 94 92 Body Mass Index 20.3 Labs Results: 03/31/21 21:09 03/31/21 21:09 Labs: Laboratory Results - last 48 hr 04/04/21 04/04/21 04/04/21 09:12 09:12 09:12 Estimat Average Glucose 114 Hemoglobin A1c % 5.6 Magnesium 2.0 Triglycerides 122 Cholesterol 142 LDL Cholesterol, Calc 89 HDL Cholesterol 29 Vitamin B12 1338 H Folate 10.0 TSH 0.59 Free T4 1.31 Medications Medications Current Medications Acetaminophen (Acetaminophen 325 Mg Tablet) 650 mg PO Q6H PRN PRN Reason: Headache/Pain Mild Scale (1-3) Al Hydroxide/Mg Hydroxide (Magnesium Hydrox/Alum Hydrox 30 Ml Oral.Susp) 30 ml PO Q6H PRN PRN Reason: Heartburn/Nausea Amlodipine Besylate (Amlodipine Besylate 2.5 Mg Tablet) 2.5 mg PO DAILY [facility]; Protocol Last Admin: 04/05/21 08:29 Dose: 2.5 mg Documented by: Ergocalciferol (Ergocalciferol (Vitamin D2) 1,250 Mcg Capsule) 1,250 mcg PO MO [facility] Last Admin: 04/03/21 10:08 Dose: 1,250 mcg Documented by: Haloperidol Decanoate (Haloperidol Decanoate 50 Mg/Ml Ampul) 50 mg IM Q28D [facility] Hydrochlorothiazide (Hydrochlorothiazide 12.5 Mg Tablet) 12.5 mg PO DAILY [facility]; Protocol Last Admin: 04/05/21 08:29 Dose: 12.5 mg Documented by: Hydroxyzine HCl (Hydroxyzine Hcl 25 Mg Tablet) 25 mg PO Q6H PRN PRN Reason: Anxiety Last Admin: 04/05/21 08:28 Dose: 25 mg Documented by: Levetiracetam (Levetiracetam 500 Mg Tablet) 500 mg PO BID [facility] Last Admin: 04/05/21 08:28 Dose: 500 mg Documented by: Loperamide HCl (Loperamide Hcl 2 Mg Capsule) 2 mg PO Q6H PRN PRN Reason: Constipation Magnesium Hydroxide (Milk Of Magnesia 30 Ml Oral.Susp) 30 ml PO DAILY PRN PRN Reason: Constipation Magnesium Hydroxide (Milk Of Magnesia 30 Ml Oral.Susp) 30 ml PO DAILY PRN PRN Reason: Constipation Mirtazapine (Mirtazapine 15 Mg Tablet) 15 mg PO BEDTIME [facility] Last Admin: 04/04/21 21:25 Dose: 15 mg Documented by: Pt Own Med Odefsey 1 each PO BEDTIME [facility] Last Admin: 04/04/21 21:26 Dose: 1 each Documented by: Olanzapine (Olanzapine 10 Mg Tablet) 20 mg PO BEDTIME [facility] Allergies Allergies Allergy/AdvReac Type Severity Reaction Status Date / Time No Known Allergies Allergy Unverified 01/28/20 16:07 [No Known Allergies*] Assessment & Plan Assessment & Plan (1) Schizoaffective disorder, bipolar type: Status: Acute Code(s): F25.0 - Schizoaffective disorder, bipolar type (2) Dementia: Status: Acute Code(s): F03.90 - Unspecified dementia without behavioral disturbance Assessment and Plan: Pt is a 65 y.o. male who carries a dx of bipolar disorder, however sx are more in line with schizoaffective disorder bipolar type, as he presents with disorganized thought content, agitation, and paranoia. He has mild cognitive impairment r/t dementia and mental health dx. He is currently non-adherent with PO medications and is [facility] with decompensation in sx. He was aggressive on transport and required IM haldol, however since arriving to the unit he has been med compliant and pleasant. Last received haldol dec on 03/30/21. Has community Jass's Order in chart. Seroquel and risperdal are listed as alternatives. Plan: Pt will continue on OP med regimen at this time. Changed zyprexa to bedtime. Monitor response to medications. Monitor for safety in the milieu. Discharge on stabilization. Patient seen. Chart reviewed. Discussed with team. Obtain collateral contact info?as needed I spent minutes with the patient and/or on the patient floor today, greater than?50% of which was spent counseling/coordinating care. Reason for contiued inpatient stay Substantial Risk for: inability to function, rapid decompensation and med/psych decompensation
[2021-04-05 19:30] VITALS: BP 178/93; RESP 18; TEMP 36.9; O2SAT 94
[2021-04-05] MEDS: OLANZapine 10 MG TABLET 20 MG PO (20:37)
[2021-04-05] MEDS: Mirtazapine 15 MG TABLET PO (20:37)
[2021-04-05 21:47] VITALS: BP 178/93; PULSE 113
[2021-04-05] MEDS: cloNIDine HCL 0.1 MG TABLET PO (21:47)
--- NOTE | 2021-04-06 07:22 | P.PNPSI_ITS ---
Subjective Subjective Date of Service: 04/06/21 Reason For Visit: Delusions Interim History: Pt is in room, he is very irritable and guarded. He yells at this literary writer as I come into his room, stating he did not want anyone coming in. What are you doing here? stealing? get out! When asked if he was in pain or needed anything, pt denies again and asks that this literary writer leaves the room. Per nursing, pt talking about someone who made him laugh, who was not there (pointing at someone but there was no one). Medication Compliance: No Review of Systems Review of Systems CVS: No c/o chest pain, palpitations, no SOB [employer]ENG[employer]ING [employer]ISHER: No c/o dizziness, headache GI: No c/o Nausea, Vomiting, diarrhea, constipation or heartburn -Denies hx of seizures -Denies hx of TBI/ concussion -Denies hx of cardiac issues Yes Unobtainable due to mental condition Mental Status Exam Mental Status Exam Narrative: Alert but not oriented (responds to Aristeo although told staffing recruiter his name was not Aristeo, knows he is in the hospital but does not know which one, does not know date, does not know why he is in the hospital). thin, frail and appears older than stated age. Poor eye contact, inattentive. No Tics or Tremors. No abnormal involuntary movements but at times gesturing to air. Affect: irritable Behavior: guarded and hostile Non-pressured speech, non-spontaneous with regular rate and rhythm, normal volume and prosody. No prolonged speech latency, somewhat dysarthric and difficult to understand, mumbling. Mood is ?fine?. Denies SI/SIB/HI upon inquiry. Denies A/VH or delusional thought content, however thoughts are disorganized, loose associations, bizarre statements, and pt may be responding to internal stimuli as he is incongruently laughing. Has cognitive impairment r/t dementia. Insight/ Judgment: impaired x 2. Diagnostics Vital Signs (24Hr): Vital Signs - 24 hr 04/06/21 08:41 04/06/21 08:44 04/06/21 19:30 Temperature 97.4 F 98.3 F Pulse Rate 112 H 112 H 97 Respiratory Rate 17 Blood Pressure 124/60 124/60 112/59 L Pulse Oximetry 91 L 93 Body Mass Index 20.3 Labs Results: 03/31/21 21:09 03/31/21 21:09 Medications Medications Current Medications Acetaminophen (Acetaminophen 325 Mg Tablet) 650 mg PO Q6H PRN PRN Reason: Headache/Pain Mild Scale (1-3) Al Hydroxide/Mg Hydroxide (Magnesium Hydrox/Alum Hydrox 30 Ml Oral.Susp) 30 ml PO Q6H PRN PRN Reason: Heartburn/Nausea Amlodipine Besylate (Amlodipine Besylate 2.5 Mg Tablet) 2.5 mg PO DAILY [facility]; Protocol Last Admin: 04/06/21 08:41 Dose: 2.5 mg Documented by: Clonidine HCl (Clonidine Hcl 0.1 Mg Tablet) 0.1 mg PO Q2H PRN; Protocol PRN Reason: SBP > 150 Last Admin: 04/05/21 21:47 Dose: 0.1 mg Documented by: Ergocalciferol (Ergocalciferol (Vitamin D2) 1,250 Mcg Capsule) 1,250 mcg PO MO [facility] Last Admin: 04/03/21 10:08 Dose: 1,250 mcg Documented by: Haloperidol Decanoate (Haloperidol Decanoate 50 Mg/Ml Ampul) 50 mg IM Q28D [facility] Hydrochlorothiazide (Hydrochlorothiazide 12.5 Mg Tablet) 12.5 mg PO DAILY [facility]; Protocol Last Admin: 04/06/21 08:40 Dose: 12.5 mg Documented by: Hydroxyzine HCl (Hydroxyzine Hcl 25 Mg Tablet) 25 mg PO Q6H PRN PRN Reason: Anxiety Last Admin: 04/05/21 08:28 Dose: 25 mg Documented by: Levetiracetam (Levetiracetam 500 Mg Tablet) 500 mg PO BID [facility] Last Admin: 04/06/21 20:12 Dose: 500 mg Documented by: Loperamide HCl (Loperamide Hcl 2 Mg Capsule) 2 mg PO Q6H PRN PRN Reason: Constipation Magnesium Hydroxide (Milk Of Magnesia 30 Ml Oral.Susp) 30 ml PO DAILY PRN PRN Reason: Constipation Magnesium Hydroxide (Milk Of Magnesia 30 Ml Oral.Susp) 30 ml PO DAILY PRN PRN Reason: Constipation Mirtazapine (Mirtazapine 15 Mg Tablet) 15 mg PO BEDTIME [facility] Last Admin: 04/06/21 20:12 Dose: 15 mg Documented by: Pt Own Med Odefsey 1 each PO BEDTIME [facility] Last Admin: 04/06/21 20:12 Dose: 1 each Documented by: Olanzapine (Olanzapine 10 Mg Tablet) 20 mg PO BEDTIME [facility] Last Admin: 04/06/21 20:13 Dose: 20 mg Documented by: Olanzapine (Olanzapine 10 Mg Vial) 20 mg IM BEDTIME PRN PRN Reason: refuses PO, as per Milo valdovinos Allergies Allergies Allergy/AdvReac Type Severity Reaction Status Date / Time No Known Allergies Allergy Unverified 01/28/20 16:07 [No Known Allergies*] Assessment & Plan Assessment & Plan (1) Schizoaffective disorder, bipolar type: Status: Acute Code(s): F25.0 - Schizoaffective disorder, bipolar type (2) Dementia: Status: Acute Code(s): F03.90 - Unspecified dementia without behavioral disturbance Assessment and Plan: Pt is a 65 y.o. male who carries a dx of bipolar disorder, however sx are more in line with schizoaffective disorder bipolar type, as he presents with disorganized thought content, agitation, and paranoia. He has mild cognitive impairment r/t dementia and mental health dx. He is currently non-adherent with PO medications and is presenting [facility] with decompensation in sx. He was aggressive on transport and required IM haldol, however since arriving to the unit he has been med compliant and pleasant. Last received haldol dec on 03/30/21. Has community Jass's Order in chart. Seroquel and risperdal are listed as alternatives. Plan: Pt will continue on OP med regimen at this time. Changed zyprexa to bedtime. Monitor response to medications. Monitor for safety in the milieu. Discharge on stabilization. Patient seen. Chart reviewed. Discussed with team. Obtain collateral contact info?as needed I spent minutes with the patient and/or on the patient floor today, greater than?50% of which was spent counseling/coordinating care. Reason for contiued inpatient stay Substantial Risk for: inability to function
[2021-04-06] MEDS: hydroCHLOROthiazide 12.5 MG TABLET PO (08:40)
[2021-04-06 08:41] VITALS: BP 124/60; PULSE 112
[2021-04-06] MEDS: amLODIPine Besylate 2.5 MG TABLET PO (08:41)
[2021-04-06] MEDS: levETIRAcetam 500 MG TABLET PO ×2 (08:41→20:12)
[2021-04-06 08:44] VITALS: BP 124/60; PULSE 112; TEMP 36.3; O2SAT 91
[2021-04-06 19:30] VITALS: BP 112/59; PULSE 97; RESP 17; TEMP 36.8; O2SAT 93
[2021-04-06] MEDS: Mirtazapine 15 MG TABLET PO (20:12)
[2021-04-06] MEDS: OLANZapine 10 MG TABLET 20 MG PO (20:13)
[2021-04-07] MEDS: levETIRAcetam 500 MG TABLET PO ×2 (09:05→19:17)
--- NOTE | 2021-04-07 11:29 | P.PNPSI_ITS ---
Subjective Subjective Date of Service: 04/07/21 Reason For Visit: Delusions Subjective Notes: Section 7 and Section 8 Interim History: The nursing staff reports that the patient has been posturing and threatening staff is stating he they want to fight with him. According to nursing staff, he has been taking his Zyprexa at night but he has not attended any groups and he is mostly seclusive in his room. On interview, the patient refused to engage in conversation and he looked angry and internally preoccupied. Mental Status Exam Mental Status Exam Patient Appearance: Disheveled and Unkempt Patient Orientation: Person Level of Consciousness: Restless Patient Behavior: Guarded, Avoidant and Combative Mood Description: Anxious, Angry and Apprehensive Affect Description: Blunted Ability to Follow Directions: Fair Speech Pattern: No Speech Hallucinations: Auditory Delusions: Paranoid Ideation Thought Process: Illogical and Distracted Thought Content: positive for Perseveration, positive for Poverty of Content, positive for Preoccupation and positive for Loose Associations Judgement: Poor Diagnostics Vital Signs (24Hr): Vital Signs - 24 hr 04/06/21 19:30 Temperature 98.3 F Pulse Rate 97 Respiratory Rate 17 Blood Pressure 112/59 L Pulse Oximetry 93 Body Mass Index 20.3 Labs Results: 03/31/21 21:09 03/31/21 21:09 Medications Medications Current Medications Acetaminophen (Acetaminophen 325 Mg Tablet) 650 mg PO Q6H PRN PRN Reason: Headache/Pain Mild Scale (1-3) Al Hydroxide/Mg Hydroxide (Magnesium Hydrox/Alum Hydrox 30 Ml Oral.Susp) 30 ml PO Q6H PRN PRN Reason: Heartburn/Nausea Amlodipine Besylate (Amlodipine Besylate 2.5 Mg Tablet) 2.5 mg PO DAILY [facility]; Protocol Last Admin: 04/07/21 08:32 Dose: Not Given Documented by: Clonidine HCl (Clonidine Hcl 0.1 Mg Tablet) 0.1 mg PO Q2H PRN; Protocol PRN Reason: SBP > 150 Last Admin: 04/05/21 21:47 Dose: 0.1 mg Documented by: Ergocalciferol (Ergocalciferol (Vitamin D2) 1,250 Mcg Capsule) 1,250 mcg PO MO [facility] Last Admin: 04/03/21 10:08 Dose: 1,250 mcg Documented by: Haloperidol Decanoate (Haloperidol Decanoate 50 Mg/Ml Ampul) 50 mg IM Q28D [facility] Hydrochlorothiazide (Hydrochlorothiazide 12.5 Mg Tablet) 12.5 mg PO DAILY [facility]; Protocol Last Admin: 04/07/21 09:05 Dose: Not Given Documented by: Hydroxyzine HCl (Hydroxyzine Hcl 25 Mg Tablet) 25 mg PO Q6H PRN PRN Reason: Anxiety Last Admin: 04/05/21 08:28 Dose: 25 mg Documented by: Levetiracetam (Levetiracetam 500 Mg Tablet) 500 mg PO BID [facility] Last Admin: 04/07/21 09:05 Dose: 500 mg Documented by: Loperamide HCl (Loperamide Hcl 2 Mg Capsule) 2 mg PO Q6H PRN PRN Reason: Constipation Magnesium Hydroxide (Milk Of Magnesia 30 Ml Oral.Susp) 30 ml PO DAILY PRN PRN Reason: Constipation Magnesium Hydroxide (Milk Of Magnesia 30 Ml Oral.Susp) 30 ml PO DAILY PRN PRN Reason: Constipation Mirtazapine (Mirtazapine 15 Mg Tablet) 15 mg PO BEDTIME [facility] Last Admin: 04/06/21 20:12 Dose: 15 mg Documented by: Pt Own Med Odefsey 1 each PO BEDTIME [facility] Last Admin: 04/06/21 20:12 Dose: 1 each Documented by: Olanzapine (Olanzapine 10 Mg Tablet) 20 mg PO BEDTIME [facility] Last Admin: 04/06/21 20:13 Dose: 20 mg Documented by: Olanzapine (Olanzapine 10 Mg Vial) 20 mg IM BEDTIME PRN PRN Reason: refuses PO, as per Milo valdovinos Allergies Allergies Allergy/AdvReac Type Severity Reaction Status Date / Time No Known Allergies Allergy Unverified 01/28/20 16:07 [No Known Allergies*] Assessment & Plan Assessment & Plan (1) Schizoaffective disorder, bipolar type: Status: Acute Code(s): F25.0 - Schizoaffective disorder, bipolar type (2) Dementia: Status: Acute Code(s): F03.90 - Unspecified dementia without behavioral disturbance Assessment and Plan: Pt is a 65 y.o. male who carries a dx of bipolar disorder, however sx are more in line with schizoaffective disorder bipolar type, as he presents with disorganized thought content, agitation, and paranoia. He has mild cognitive impairment r/t dementia and mental health dx. He is currently non-adherent with PO medications and is presenting [facility] with decompensation in sx. He was aggressive on transport and required IM haldol, however since arriving to the unit he has been med compliant and pleasant. Last received haldol dec on 03/30/21. Has community Jass's Order in chart. Seroquel and risperdal are list ed as alternatives. Plan: Pt will continue on OP med regimen at this time. Changed zyprexa to bedt naveen. Monitor response to medications. Monitor for safety in the milieu. Discharge on stabilization. Patient seen. Chart reviewed. Discussed with team. Obtain collateral contact info?as needed I spent minutes with the patient and/or on the patient floor today, greater than?50% of which was spent counseling/coordinating care. Reason for contiued inpatient stay Substantial Risk for: harm to others, inability to function, rapid decompensation and med/psych decompensation
[2021-04-07] MEDS: OLANZapine 10 MG TABLET 20 MG PO (19:17)
[2021-04-07] MEDS: Mirtazapine 15 MG TABLET PO (19:17)
[2021-04-07] MEDS: hydrOXYzine HCL 25 MG TABLET PO (19:17)
--- NOTE | 2021-04-08 11:27 | P.PNPSI_ITS ---
Subjective Subjective Date of Service: 04/08/21 Reason For Visit: Delusions Interim History: pt found in his room in near-darkness. MD opened door and intriduced himself, asking if he may enter. pt stated he did mind if MD entered as he was still eating his breakfast. MD acknowledged and began to withdraw. pt spontaneously offered, it took six years! we won the war! and then [place] withdrew as pt was increasingly agitated, was not interacting with MD in such a way as to communicate mutually, and had expressed the desire that MD not enter his room. per staff, pt can be verbally and physically aggressive. refusing meds today. isolative. Mental Status Exam Mental Status Exam Patient Appearance: Disheveled and Unkempt Patient Orientation: Person Level of Consciousness: Restless Patient Behavior: Guarded, Avoidant and Combative Mood Description: Anxious, Angry and Apprehensive Affect Description: Blunted Ability to Follow Directions: Fair Speech Pattern: Spontaneous Speech, Rambling and Inappropriate Thought Process: Illogical and Distracted Thought Content: positive for Perseveration, positive for Poverty of Content, positive for Preoccupation and positive for Loose Associations Judgement: Poor Diagnostics Vital Signs (24Hr): Body Mass Index 20.3 Labs Results: 03/31/21 21:09 03/31/21 21:09 Medications Medications Current Medications Acetaminophen (Acetaminophen 325 Mg Tablet) 650 mg PO Q6H PRN PRN Reason: Headache/Pain Mild Scale (1-3) Al Hydroxide/Mg Hydroxide (Magnesium Hydrox/Alum Hydrox 30 Ml Oral.Susp) 30 ml PO Q6H PRN PRN Reason: Heartburn/Nausea Amlodipine Besylate (Amlodipine Besylate 2.5 Mg Tablet) 2.5 mg PO DAILY [facility]; Protocol Last Admin: 04/08/21 09:50 Dose: Not Given Documented by: Clonidine HCl (Clonidine Hcl 0.1 Mg Tablet) 0.1 mg PO Q2H PRN; Protocol PRN Reason: SBP > 150 Last Admin: 04/05/21 21:47 Dose: 0.1 mg Documented by: Ergocalciferol (Ergocalciferol (Vitamin D2) 1,250 Mcg Capsule) 1,250 mcg PO MO [facility] Last Admin: 04/03/21 10:08 Dose: 1,250 mcg Documented by: Haloperidol Decanoate (Haloperidol Decanoate 50 Mg/Ml Ampul) 50 mg IM Q28D [facility] Hydrochlorothiazide (Hydrochlorothiazide 12.5 Mg Tablet) 12.5 mg PO DAILY [facility]; Protocol Last Admin: 04/08/21 09:50 Dose: Not Given Documented by: Hydroxyzine HCl (Hydroxyzine Hcl 25 Mg Tablet) 25 mg PO Q6H PRN PRN Reason: Anxiety Last Admin: 04/07/21 19:17 Dose: 25 mg Documented by: Levetiracetam (Levetiracetam 500 Mg Tablet) 500 mg PO BID [facility] Last Admin: 04/08/21 10:21 Dose: Not Given Documented by: Loperamide HCl (Loperamide Hcl 2 Mg Capsule) 2 mg PO Q6H PRN PRN Reason: Constipation Magnesium Hydroxide (Milk Of Magnesia 30 Ml Oral.Susp) 30 ml PO DAILY PRN PRN Reason: Constipation Magnesium Hydroxide (Milk Of Magnesia 30 Ml Oral.Susp) 30 ml PO DAILY PRN PRN Reason: Constipation Mirtazapine (Mirtazapine 15 Mg Tablet) 15 mg PO BEDTIME [facility] Last Admin: 04/07/21 19:17 Dose: 15 mg Documented by: Pt Own Med Odefsey 1 each PO BEDTIME [facility] Last Admin: 04/07/21 19:16 Dose: 1 each Documented by: Olanzapine (Olanzapine 10 Mg Tablet) 20 mg PO BEDTIME [facility] Last Admin: 04/07/21 19:17 Dose: 20 mg Documented by: Olanzapine (Olanzapine 10 Mg Vial) 20 mg IM BEDTIME PRN PRN Reason: refuses PO, as per Milo valdovinos Allergies Allergies Allergy/AdvReac Type Severity Reaction Status Date / Time No Known Allergies Allergy Unverified 01/28/20 16:07 [No Known Allergies*] Assessment & Plan Assessment & Plan (1) Schizoaffective disorder, bipolar type: Status: Acute Code(s): F25.0 - Schizoaffective disorder, bipolar type (2) Dementia: Status: Acute Code(s): F03.90 - Unspecified dementia without behavioral disturbance Assessment and Plan: Pt is a 65 y.o. male who carries a dx of bipolar disorder, however sx are more in line with schizoaffective disorder bipolar type, as he presents with disorganized thought content, agitation, and paranoia. He has mild cognitive impairment r/t dementia and mental health dx. He is currently non-adherent with PO medications and is presenting from [facility] with decompensation in sx. He was aggressive on transport and required IM haldol, however since arriving to the unit he has been med compliant and pleasant. Last received haldol dec on 03/30/21. Has community Jass's Order in chart. Seroquel and risperdal are listed as alternatives. Plan: Pt will continue on OP med regimen at this time. Changed zyprexa to bedtime. Monitor response to medications. Monitor for safety in the milieu. Discharge on stabilization. Patient seen. Chart reviewed. Discussed with team. Obtain collateral contact info?as needed I spent minutes with the patient and/or on the patient floor today, greater than?50% of which was spent counseling/coordinating care. Reason for contiued inpatient stay Substantial Risk for: harm to others, inability to function and rapid decompensation
--- NOTE | 2021-04-09 10:46 | HO.PSYCHPN ---
Subjective Subjective Date of Service: 04/09/21 Reason For Visit: Delusions Interim History: pt found lying in bed in his room with the lights on. as MD walks aleshia nd prior to saying anything, pt sits up in bed and says, i took my medication already repeatedly (per staff report, he spat his medication out earlier this morning). MD attempts to introduce himself, pt talks over MD: go downstairs & let 'em democrat. MD states he is psych MD for the weekend, pt replies, i am, too. 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 i'm raul freeman! he goes no to report that he built [employer] and [employer] and spins a circuitous yarn about his car being stolen and someone driving it 120 mph. MD asks if there is anything MD can do for him today and he responds in the negative, at which point MD ends the interview by leaving the room. per staff, pt not sleeping well, lots of self-dialoguing, missed NOC meds last NOC bcse RN wasn't aware they should be given IM if refused PO. Mental Status Exam Mental Status Exam Patient Appearance: Disheveled and Unkempt Patient Orientation: Person Level of Consciousness: Restless Patient Behavior: Guarded, Avoidant and Combative Mood Description: Anxious, Angry and Apprehensive Affect Description: Blunted Ability to Follow Directions: Fair Speech Pattern: Spontaneous Speech, Rambling and Inappropriate Thought Process: Illogical and Distracted Thought Content: positive for Perseveration, positive for Poverty of Content, positive for Preoccupation and positive for Loose Associations Judgement: Poor Diagnostics Vital Signs (24Hr): Body Mass Index 20.3 Labs Results: 03/31/21 21:09 03/31/21 21:09 Medications Medications Current Medications Acetaminophen (Acetaminophen 325 Mg Tablet) 650 mg PO Q6H PRN PRN Reason: Headache/Pain Mild Scale (1-3) Al Hydroxide/Mg Hydroxide (Magnesium Hydrox/Alum Hydrox 30 Ml Oral.Susp) 30 ml PO Q6H PRN PRN Reason: Heartburn/Nausea Amlodipine Besylate (Amlodipine Besylate 2.5 Mg Tablet) 2.5 mg PO DAILY [facility]; Protocol Last Admin: 04/09/21 10:06 Dose: Not Given Documented by: Clonidine HCl (Clonidine Hcl 0.1 Mg Tablet) 0.1 mg PO Q2H PRN; Protocol PRN Reason: SBP > 150 Last Admin: 04/05/21 21:47 Dose: 0.1 mg Documented by: Ergocalciferol (Ergocalciferol (Vitamin D2) 1,250 Mcg Capsule) 1,250 mcg PO MO [facility] Last Admin: 04/03/21 10:08 Dose: 1,250 mcg Documented by: Haloperidol Decanoate (Haloperidol Decanoate 50 Mg/Ml Ampul) 50 mg IM Q28D [facility] Hydrochlorothiazide (Hydrochlorothiazide 12.5 Mg Tablet) 12.5 mg PO DAILY [facility]; Protocol Last Admin: 04/09/21 10:06 Dose: Not Given Documented by: Hydroxyzine HCl (Hydroxyzine Hcl 25 Mg Tablet) 25 mg PO Q6H PRN PRN Reason: Anxiety Last Admin: 04/07/21 19:17 Dose: 25 mg Documented by: Levetiracetam (Levetiracetam 500 Mg Tablet) 500 mg PO BID [facility] Last Admin: 04/09/21 10:06 Dose: Not Given Documented by: Loperamide HCl (Loperamide Hcl 2 Mg Capsule) 2 mg PO Q6H PRN PRN Reason: Constipation Magnesium Hydroxide (Milk Of Magnesia 30 Ml Oral.Susp) 30 ml PO DAILY PRN PRN Reason: Constipation Magnesium Hydroxide (Milk Of Magnesia 30 Ml Oral.Susp) 30 ml PO DAILY PRN PRN Reason: Constipation Mirtazapine (Mirtazapine 15 Mg Tablet) 15 mg PO BEDTIME [facility] Last Admin: 04/08/21 21:19 Dose: Not Given Documented by: Pt Own Med Odefsey 1 each PO BEDTIME [facility] Last Admin: 04/08/21 21:19 Dose: Not Given Documented by: Olanzapine (Olanzapine 10 Mg Vial) 20 mg IM BEDTIME PRN PRN Reason: refuses PO, as per Milo valdovinos Olanzapine (Olanzapine Odt 10 Mg Tab.Rapdis) 20 mg TRANSLINGU BEDTIME [facility] Allergies Allergies Allergy/AdvReac Type Severity Reaction Status Date / Time No Known Allergies Allergy Unverified 01/28/20 16:07 [No Known Allergies*] Assessment & Plan Assessment & Plan (1) Schizoaffective disorder, bipolar type: Status: Acute Code(s): F25.0 - Schizoaffective disorder, bipolar type (2) Dementia: Status: Acute Code(s): F03.90 - Unspecified dementia without behavioral disturbance Assessment and Plan: Pt is a 65 y.o. male who carries a dx of bipolar disorder, however sx are more in line with schizoaffective disorder bipolar type, as he presents with disorganized thought content, agitation, and paranoia. He has mild cognitive impairment r/t dementia and mental health dx. He is currently non-adherent with PO medications and is presenting [facility] with decompensation in sx. He was aggressive on transport and required IM haldol, however since arriving to the unit he has been med compliant and pleasant. Last received haldol dec on 03/30/21. Has community Jass's Order in chart. Seroquel and risperdal are listed as alternatives. Plan: Pt will continue on OP med regimen at this time. Changed zyprexa to bedtime. Monitor response to medications. Monitor for safety in the milieu. Discharge on stabilization. Patient seen. Chart reviewed. Discussed with team. Obtain collateral contact info?as needed I spent minutes with the patient and/or on the patient floor today, greater than?50% of which was spent counseling/coordinating care. Reason for contiued inpatient stay Substantial Risk for: inability to function
[2021-04-10 10:00] VITALS: BP 157/93; PULSE 112; TEMP 35.9; O2SAT 95
[2021-04-10] MEDS: levETIRAcetam 500 MG TABLET PO ×2 (10:03→20:20)
[2021-04-10] MEDS: hydrOXYzine HCL 25 MG TABLET PO (10:03)
--- NOTE | 2021-04-10 11:28 | MHC.SLORD ---
Speech Language Pathology Order Status: COIL TAPER received order for bedside dysphagia evaluation, which had been placed 04/09. COIL TAPER arrived in unit, but was notified by nursing that due to behavioral concerns, patient is not appropriate for PO trials at this time. Will re-attempt tomorrow morning.
--- NOTE | 2021-04-10 15:25 | P.PNPSI_ITS ---
Subjective Subjective Date of Service: 04/10/21 Reason For Visit: Delusions Subjective Notes: Conditional Voluntary Healthcare Proxy: Yes Guardianship: Yes Medical Problems Affecting Mental Status: No Interim History: The nursing staff reported that the patient refused to take his medication at night over the weekend. He was agitated at times, angry and irritable. Apparently, the patient stays on his bed most of the day. Today in the morning, the patient was assessed at bedside and he was pleasant and cooperative but internally preoccupied. Mental Status Exam Mental Status Exam Patient Appearance: Disheveled Patient Orientation: Person Level of Consciousness: Awake Patient Behavior: Guarded Mood Description: Depressed Affect Description: Constricted Patient Cognition Impaired: Yes Ability to Follow Directions: Fair Speech Pattern: Impoverished and Monotone Hallucinations: Auditory Delusions: Paranoid Ideation Thought Process: Illogical Thought Content: positive for Circumstantial and positive for Loose Associations Judgement: Poor Diagnostics Vital Signs (24Hr): Vital Signs - 24 hr 04/10/21 10:00 Temperature 96.6 F L Pulse Rate 112 H Blood Pressure 157/93 H Pulse Oximetry 95 Body Mass Index 20.3 Labs Results: 03/31/21 21:09 03/31/21 21:09 Medications Medications Current Medications Acetaminophen (Acetaminophen 325 Mg Tablet) 650 mg PO Q6H PRN PRN Reason: Headache/Pain Mild Scale (1-3) Al Hydroxide/Mg Hydroxide (Magnesium Hydrox/Alum Hydrox 30 Ml Oral.Susp) 30 ml PO Q6H PRN PRN Reason: Heartburn/Nausea Amlodipine Besylate (Amlodipine Besylate 2.5 Mg Tablet) 2.5 mg PO DAILY [facility]; Protocol Last Admin: 04/10/21 11:18 Dose: Not Given Documented by: Clonidine HCl (Clonidine Hcl 0.1 Mg Tablet) 0.1 mg PO Q2H PRN; Protocol PRN Reason: SBP > 150 Last Admin: 04/05/21 21:47 Dose: 0.1 mg Documented by: Ergocalciferol (Ergocalciferol (Vitamin D2) 1,250 Mcg Capsule) 1,250 mcg PO MO [facility] Last Admin: 04/10/21 11:19 Dose: Not Given Documented by: Haloperidol Decanoate (Haloperidol Decanoate 50 Mg/Ml Ampul) 50 mg IM Q28D [facility] Hydrochlorothiazide (Hydrochlorothiazide 12.5 Mg Tablet) 12.5 mg PO DAILY [facility]; Protocol Last Admin: 04/10/21 11:19 Dose: Not Given Documented by: Hydroxyzine HCl (Hydroxyzine Hcl 25 Mg Tablet) 25 mg PO Q6H PRN PRN Reason: Anxiety Last Admin: 04/10/21 10:03 Dose: 25 mg Documented by: Levetiracetam (Levetiracetam 500 Mg Tablet) 500 mg PO BID [facility] Last Admin: 04/10/21 10:03 Dose: 500 mg Documented by: Loperamide HCl (Loperamide Hcl 2 Mg Capsule) 2 mg PO Q6H PRN PRN Reason: Constipation Magnesium Hydroxide (Milk Of Magnesia 30 Ml Oral.Susp) 30 ml PO DAILY PRN PRN Reason: Constipation Magnesium Hydroxide (Milk Of Magnesia 30 Ml Oral.Susp) 30 ml PO DAILY PRN PRN Reason: Constipation Mirtazapine (Mirtazapine 15 Mg Tablet) 15 mg PO BEDTIME [facility] Last Admin: 04/09/21 20:37 Dose: Not Given Documented by: Pt Own Med Odefsey 1 each PO BEDTIME [facility] Last Admin: 04/09/21 20:37 Dose: Not Given Documented by: Olanzapine (Olanzapine 10 Mg Vial) 20 mg IM BEDTIME PRN PRN Reason: refuses PO, as per Milo valdovinos Olanzapine (Olanzapine Odt 10 Mg Tab.Rapdis) 20 mg TRANSLINGU BEDTIME [facility] Last Admin: 04/09/21 20:37 Dose: Not Given Documented by: Allergies Allergies Allergy/AdvReac Type Severity Reaction Status Date / Time No Known Allergies Allergy Unverified 01/28/20 16:07 [No Known Allergies*] Assessment & Plan Assessment & Plan (1) Schizoaffective disorder, bipolar type: Status: Acute Code(s): F25.0 - Schizoaffective disorder, bipolar type (2) Dementia: Status: Acute Code(s): F03.90 - Unspecified dementia without behavioral disturbance Assessment and Plan: Pt is a 65 y.o. male who carries a dx of bipolar disorder, however sx are more in line with schizoaffective disorder bipolar type, as he presents with disorganized thought content, agitation, and paranoia. He has mild cognitive impairment r/t dementia and mental health dx. He is currently non-adherent with PO medications and is presenting [facility] with decompensation in sx. He was aggressive on transport and required IM haldol, however since arriving to t he unit he has been med compliant and pleasant. Last received haldol dec on 03/30/21. Has omar Regan's Order in chart. Seroquel and risperdal are listed as alternatives. Plan: Pt will continue on OP med regimen at this time. Changed zyprexa to bedtime. Monitor response to medications. Monitor for safety in the milieu. Discharge on stabilization. Patient seen. Chart reviewed. Discussed with team. Obtain collateral contact info?as needed An affidavit was filled sings the guardian was not being able to be contacted I spent minutes with the patient and/or on the patient floor today, greater than?50% of which was spent counseling/coordinating care. Reason for contiued inpatient stay Substantial Risk for: harm to self, harm to others, inability to function, rapid decompensation and med/psych decompensation
[2021-04-10] MEDS: OLANZapine ODT 10 MG TAB.RAPDIS 20 MG TRANSLINGU (20:19)
[2021-04-10] MEDS: Mirtazapine 15 MG TABLET PO (20:20)
[2021-04-11 00:10] VITALS: BP 157/111; PULSE 110; RESP 18; TEMP 36.2; O2SAT 93
--- NOTE | 2021-04-11 11:50 | HO.PSYCHPN ---
Subjective Subjective Date of Service: 04/11/21 Reason For Visit: Delusions Subjective Notes: Conditional Voluntary Interim History: The nursing staff reported that he was napping on/off at night. He was compliant with Zyprexa at night. Yesterday, he had a shower with the help of 4 staff members. Today, he had breakfast in the common area. He was loud and delusional. Later, he stayed in his room most of the time Mental Status Exam Mental Status Exam Patient Appearance: Disheveled and Unkempt Patient Orientation: Person Level of Consciousness: Awake Patient Behavior: Suspicious, Restless and Belligerent Mood Description: Flat Affect Description: Constricted Patient Cognition Impaired: Yes Ability to Follow Directions: Good Speech Pattern: Rambling and Loud Hallucinations: Auditory Delusions: Paranoid Ideation Thought Process: Illogical, Distracted and Word Salad Thought Content: positive for Tangential Judgement: Poor Diagnostics Vital Signs (24Hr): Vital Signs - 24 hr 04/11/21 00:10 Temperature 97.2 F Pulse Rate 110 H Respiratory Rate 18 Blood Pressure 157/111 H Pulse Oximetry 93 Body Mass Index 20.3 Labs Results: 03/31/21 21:09 03/31/21 21:09 Medications Medications Current Medications Acetaminophen (Acetaminophen 325 Mg Tablet) 650 mg PO Q6H PRN PRN Reason: Headache/Pain Mild Scale (1-3) Al Hydroxide/Mg Hydroxide (Magnesium Hydrox/Alum Hydrox 30 Ml Oral.Susp) 30 ml PO Q6H PRN PRN Reason: Heartburn/Nausea Amlodipine Besylate (Amlodipine Besylate 2.5 Mg Tablet) 2.5 mg PO DAILY [facility]; Protocol Last Admin: 04/11/21 08:35 Dose: Not Given Documented by: Clonidine HCl (Clonidine Hcl 0.1 Mg Tablet) 0.1 mg PO Q2H PRN; Protocol PRN Reason: SBP > 150 Last Admin: 04/05/21 21:47 Dose: 0.1 mg Documented by: Ergocalciferol (Ergocalciferol (Vitamin D2) 1,250 Mcg Capsule) 1,250 mcg PO MO [facility] Last Admin: 04/10/21 11:19 Dose: Not Given Documented by: Haloperidol Decanoate (Haloperidol Decanoate 50 Mg/Ml Ampul) 50 mg IM Q28D [facility] Hydrochlorothiazide (Hydrochlorothiazide 12.5 Mg Tablet) 12.5 mg PO DAILY [facility]; Protocol Last Admin: 04/11/21 08:35 Dose: Not Given Documented by: Hydroxyzine HCl (Hydroxyzine Hcl 25 Mg Tablet) 25 mg PO Q6H PRN PRN Reason: Anxiety Last Admin: 04/10/21 10:03 Dose: 25 mg Documented by: Levetiracetam (Levetiracetam 500 Mg Tablet) 500 mg PO BID [facility] Last Admin: 04/11/21 08:36 Dose: Not Given Documented by: Loperamide HCl (Loperamide Hcl 2 Mg Capsule) 2 mg PO Q6H PRN PRN Reason: Constipation Magnesium Hydroxide (Milk Of Magnesia 30 Ml Oral.Susp) 30 ml PO DAILY PRN PRN Reason: Constipation Magnesium Hydroxide (Milk Of Magnesia 30 Ml Oral.Susp) 30 ml PO DAILY PRN PRN Reason: Constipation Mirtazapine (Mirtazapine 15 Mg Tablet) 15 mg PO BEDTIME [facility] Last Admin: 04/10/21 20:20 Dose: 15 mg Documented by: Pt Own Med Odefsey 1 each PO BEDTIME [facility] Last Admin: 04/10/21 20:25 Dose: 1 each Documented by: Olanzapine (Olanzapine 10 Mg Vial) 20 mg IM BEDTIME PRN PRN Reason: refuses PO, as per Milo valdovinos Olanzapine (Olanzapine Odt 10 Mg Tab.Rapdis) 20 mg TRANSLINGU BEDTIME [facility] Last Admin: 04/10/21 20:19 Dose: 20 mg Documented by: Allergies Allergies Allergy/AdvReac Type Severity Reaction Status Date / Time No Known Allergies Allergy Unverified 01/28/20 16:07 [No Known Allergies*] Assessment & Plan Assessment & Plan (1) Schizoaffective disorder, bipolar type: Status: Acute Code(s): F25.0 - Schizoaffective disorder, bipolar type (2) Dementia: Status: Acute Code(s): F03.90 - Unspecified dementia without behavioral disturbance Assessment and Plan: Pt is a 65 y.o. male who carries a dx of bipolar disorder, however sx are more in line with schizoaffective disorder bipolar type, as he presents with disorganized thought content, agitation, and paranoia. He has mild cognitive impairment r/t dementia and mental health dx. He is currently non-adherent with PO medications and is presenting [facility] with decompensation in sx. He was aggressive on transport and required IM haldol, however since arriving to the unit he has been med compliant and pleasant. Last received haldol dec on 03/30/21. Has omar Regan's Order in chart. Seroquel and risperdal are listed as alternatives. Plan: Pt will continue on OP med regimen at this time. Changed zyprexa to bedtime. Monitor response to medications. Monitor for safety in the milieu. Discharge on stabilization. Patient seen. Chart reviewed. Discussed with team. Obtain collateral contact info?as needed An affidavit was filled since the guardian was not being able to be contacted, he has a hearing soon I spent minutes with the patient and/or on the patient floor today, greater than?50% of which was spent counseling/coordinating care. Reason for contiued inpatient stay Substantial Risk for: harm to others, inability to function, rapid decompensation and med/psych decompensation
--- NOTE | 2021-04-11 12:41 | MHC.SL.SWA ---
Speech Pathologist Impression: Other Risk of Aspiration Due to: Reduced Cognition Dysphasia Diet Status: No Change Liquid Consistency and Strategies for Safe Swallow: Liquid Intake Recommendation: Thin Liquid Intake Strategies: Small Sips No Straws Solid Food Consistency: Dietary Recommendations: Regular Additional Modifications to Solid Foods: Pt will need supervision to: 1. Encourage eating; 2. Manage impulsive behavior Oral Medication Intake: Whole with Liquid Compensatory Strategies and Precautions to be Taken for Safe Swallow: Sitting Upright (90 deg) No Straw Small Bites and Sips Supervision While Eating and Drinking for Safe Swallow: Total Supervision (1:1) Foods to Avoid: Swallowing Recommended Treatments: Recommendation for Speech: Discharged with Instructions for Home Use Comment: Primary risk for aspiration is due to impulsivity/mental status issues. Pt needs to be monitored so that he does not impulsively drink liquids to rapidly, and to be encouraged to eat (currently refusing all food). Frequency/Duration: D/C Speech, continue on current diet with nursing monitoring for impulsivity and intake. Date Range for Service Req: Timeline to reassess: Utilization Review Rn Clinican/Clinical Fellow: No Supervisory Statement: I have reviewed and agree with the student/clinical fellow's documentation: Speech Language Pathologist: Antonietta Ryan M.A., CCC-SALES AMBASSADOR
[2021-04-11] MEDS: OLANZapine ODT 10 MG TAB.RAPDIS 20 MG TRANSLINGU (20:06)
[2021-04-11] MEDS: levETIRAcetam 500 MG TABLET PO (20:07)
[2021-04-11] MEDS: Mirtazapine 15 MG TABLET PO (20:07)
[2021-04-11 22:03] VITALS: BP 159/100; PULSE 109; RESP 16; TEMP 36.5; O2SAT 96
[2021-04-12 08:00] VITALS: BP 126/93; PULSE 120; TEMP 36.6; O2SAT 95
[2021-04-12 08:06] VITALS: BP 126/93; PULSE 120
[2021-04-12] MEDS: amLODIPine Besylate 2.5 MG TABLET PO (08:06)
[2021-04-12] MEDS: hydrOXYzine HCL 25 MG TABLET PO (08:06)
[2021-04-12] MEDS: hydroCHLOROthiazide 12.5 MG TABLET PO (08:06)
--- NOTE | 2021-04-12 11:26 | P.PNPSI_ITS ---
Subjective Subjective Date of Service: 04/12/21 Reason For Visit: Delusions Subjective Notes: Conditional Voluntary Guardianship: Yes Interim History: The nursing staff reported that he has been quiet yesterday, mostly secclussive in his room. Today AM, he refused his Keppra since the pill was too big . On interview today AM, he was pleasant and cooperative, watching TV. He requested Ensure since he has lost weight. Mental Status Exam Mental Status Exam Patient Appearance: Disheveled Patient Orientation: Person and Situation Level of Consciousness: Awake Patient Behavior: Appropriate Mood Description: Depressed Affect Description: Constricted Patient Cognition Impaired: No Ability to Follow Directions: Fair Speech Pattern: Clear Delusions: Paranoid Ideation Thought Process: Distracted and Slowed Thinking Thought Content: positive for Poverty of Content and positive for Tangential Judgement: Poor Diagnostics Vital Signs (24Hr): Vital Signs - 24 hr 04/11/21 22:03 04/12/21 08:00 04/12/21 08:06 Temperature 97.7 F 97.8 F Pulse Rate 109 H 120 H 120 H Respiratory Rate 16 Blood Pressure 159/100 H 126/93 H 126/93 H Pulse Oximetry 96 95 BMI result Body Mass Index 20.3 Labs Results: 03/31/21 21:09 03/31/21 21:09 Medications Medications Current Medications Acetaminophen (Acetaminophen 325 Mg Tablet) 650 mg PO Q6H PRN PRN Reason: Headache/Pain Mild Scale (1-3) Al Hydroxide/Mg Hydroxide (Magnesium Hydrox/Alum Hydrox 30 Ml Oral.Susp) 30 ml PO Q6H PRN PRN Reason: Heartburn/Nausea Amlodipine Besylate (Amlodipine Besylate 2.5 Mg Tablet) 2.5 mg PO DAILY [facility]; Protocol Last Admin: 04/12/21 08:06 Dose: 2.5 mg Documented by: Clonidine HCl (Clonidine Hcl 0.1 Mg Tablet) 0.1 mg PO Q2H PRN; Protocol PRN Reason: SBP > 150 Last Admin: 04/05/21 21:47 Dose: 0.1 mg Documented by: Ergocalciferol (Ergocalciferol (Vitamin D2) 1,250 Mcg Capsule) 1,250 mcg PO MO [facility] [place] Last Admin: 04/10/21 11:19 Dose: Not Given Documented by: Haloperidol Decanoate (Haloperidol Decanoate 50 Mg/Ml Ampul) 50 mg IM Q28D [facility] Hydrochlorothiazide (Hydrochlorothiazide 12.5 Mg Tablet) 12.5 mg PO DAILY [facility]; Protocol Last Admin: 04/12/21 08:06 Dose: 12.5 mg Documented by: Hydroxyzine HCl (Hydroxyzine Hcl 25 Mg Tablet) 25 mg PO Q6H PRN PRN Reason: Anxiety Last Admin: 04/12/21 08:06 Dose: 25 mg Documented by: Levetiracetam (Levetiracetam 500 Mg Tablet) 500 mg PO BID [facility] Last Admin: 04/12/21 08:15 Dose: Not Given Documented by: Loperamide HCl (Loperamide Hcl 2 Mg Capsule) 2 mg PO Q6H PRN PRN Reason: Constipation Magnesium Hydroxide (Milk Of Magnesia 30 Ml Oral.Susp) 30 ml PO DAILY PRN PRN Reason: Constipation Magnesium Hydroxide (Milk Of Magnesia 30 Ml Oral.Susp) 30 ml PO DAILY PRN PRN Reason: Constipation Mirtazapine (Mirtazapine 15 Mg Tablet) 15 mg PO BEDTIME [facility] Last Admin: 04/11/21 20:07 Dose: 15 mg Documented by: Pt Own Med Odefsey 1 each PO BEDTIME [facility] Last Admin: 04/11/21 20:07 Dose: 1 each Documented by: Olanzapine (Olanzapine 10 Mg Vial) 20 mg IM BEDTIME PRN PRN Reason: refuses PO, as per Milo valdovinos Olanzapine (Olanzapine Odt 10 Mg Tab.Rapdis) 20 mg TRANSLINGU BEDTIME [facility] Last Admin: 04/11/21 20:06 Dose: 20 mg Documented by: Allergies Allergies Allergy/AdvReac Type Severity Reaction Status Date / Time No Known Allergies Allergy Unverified 01/28/20 16:07 [No Known Allergies*] Assessment & Plan Assessment & Plan (1) Schizoaffective disorder, bipolar type: Status: Acute Code(s): F25.0 - Schizoaffective disorder, bipolar type (2) Dementia: Status: Acute Code(s): F03.90 - Unspecified dementia without behavioral disturbance Assessment and Plan: Pt is a 65 y.o. male who carries a dx of bipolar disorder, however sx are more in line with schizoaffective disorder bipolar type, as he presents with disorganized thought content, agitation, and paranoia. He has mild cognitive impairment r/t dementia and mental health dx. He is currently non-adherent with PO medications and is presenting [facility] with decompensation in sx. He was aggressive on transport and required IM haldol, however since arriving to the unit he has been med compliant and pleasant. Last received haldol dec on 03/30/21. Has [facility] Jass's Order in chart. Seroquel and risperdal are listed as alternatives. Plan: Pt will continue on OP med regimen at this time. Changed zyprexa to bedtime. Monitor response to medications. Monitor for safety in the milieu. Discharge on stabilization. Patient seen. Chart reviewed. Discussed with team. Obtain collateral contact info?as needed An affidavit was filled since the guardian was not being able to be contacted, he has a hearing soon I spent minutes with the patient and/or on the patient floor today, greater than?50% of which was spent counseling/coordinating care. Reason for contiued inpatient stay Substantial Risk for: harm to others, inability to function, rapid decompensation and med/psych decompensation
[2021-04-13 06:00] VITALS: BP 143/75; PULSE 106; RESP 18; TEMP 35.9; O2SAT 93
[2021-04-13] MEDS: levETIRAcetam 500 MG TABLET PO ×2 (10:05→21:16)
[2021-04-13 10:06] VITALS: BP 143/75; PULSE 106
[2021-04-13] MEDS: amLODIPine Besylate 2.5 MG TABLET PO (10:06)
[2021-04-13] MEDS: hydroCHLOROthiazide 12.5 MG TABLET PO (10:06)
--- NOTE | 2021-04-13 16:19 | P.PNPSI_ITS ---
Subjective Subjective Date of Service: 04/13/21 Reason For Visit: Delusions Subjective Notes: Conditional Voluntary Healthcare Proxy: Yes Guardianship: Yes Interim History: The nursing staff reported the patient states in [address] all day long watching TV. He looks internally preoccupied and disorganized. The social work specialist reported that she call the senior living and left message and so far with the not have collateral information. We had to file another affidavit so we can have another guardian sees his guardian is not answering back. On interview, the patient refused to engage in conversation he looks mildly irritable, last night he refused Zyprexa even though that he has Pedraza orders Mental Status Exam Mental Status Exam Patient Appearance: Disheveled and Unkempt Patient Orientation: Person Level of Consciousness: Awake, Disoriented and Restless Patient Behavior: Guarded, Passive and Suspicious Mood Description: Labile Affect Description: Blunted Patient Cognition Impaired: Yes Ability to Follow Directions: Poor Speech Pattern: Delayed and Includes Profanity Hallucinations: Auditory Delusions: Paranoid Ideation Thought Process: Illogical, Distracted and Word Salad Thought Content: positive for Poverty of Content and positive for Loose Associations Judgement: Poor Diagnostics Vital Signs (24Hr): Vital Signs - 24 hr 04/13/21 06:00 04/13/21 10:06 Temperature 96.7 F L Pulse Rate 106 H 106 H Respiratory Rate 18 Blood Pressure 143/75 H 143/75 H Pulse Oximetry 93 BMI result Body Mass Index 20.3 Labs Results: 03/31/21 21:09 03/31/21 21:09 Medications Medications Current Medications Acetaminophen (Acetaminophen 325 Mg Tablet) 650 mg PO Q6H PRN PRN Reason: Headache/Pain Mild Scale (1-3) Al Hydroxide/Mg Hydroxide (Magnesium Hydrox/Alum Hydrox 30 Ml Oral.Susp) 30 ml PO Q6H PRN PRN Reason: Heartburn/Nausea Amlodipine Besylate (Amlodipine Besylate 2.5 Mg Tablet) 2.5 mg PO DAILY [facility]; Protocol Last Admin: 04/13/21 10:06 Dose: 2.5 mg Documented by: Clonidine HCl (Clonidine Hcl 0.1 Mg Tablet) 0.1 mg PO Q2H PRN; Protocol PRN Reason: SBP > 150 Last Admin: 04/05/21 21:47 Dose: 0.1 mg Documented by: Ergocalciferol (Ergocalciferol (Vitamin D2) 1,250 Mcg Capsule) 1,250 mcg PO MO [facility] Last Admin: 04/10/21 11:19 Dose: Not Given Documented by: Haloperidol Decanoate (Haloperidol Decanoate 50 Mg/Ml Ampul) 50 mg IM Q28D [facility] Hydrochlorothiazide (Hydrochlorothiazide 12.5 Mg Tablet) 12.5 mg PO DAILY [facility]; Protocol Last Admin: 04/13/21 10:06 Dose: 12.5 mg Documented by: Hydroxyzine HCl (Hydroxyzine Hcl 25 Mg Tablet) 25 mg PO Q6H PRN PRN Reason: Anxiety Last Admin: 04/12/21 08:06 Dose: 25 mg Documented by: Levetiracetam (Levetiracetam 500 Mg Tablet) 500 mg PO BID [facility] Last Admin: 04/13/21 10:05 Dose: 500 mg Documented by: Loperamide HCl (Loperamide Hcl 2 Mg Capsule) 2 mg PO Q6H PRN PRN Reason: Constipation Magnesium Hydroxide (Milk Of Magnesia 30 Ml Oral.Susp) 30 ml PO DAILY PRN PRN Reason: Constipation Magnesium Hydroxide (Milk Of Magnesia 30 Ml Oral.Susp) 30 ml PO DAILY PRN PRN Reason: Constipation Mirtazapine (Mirtazapine 15 Mg Tablet) 15 mg PO BEDTIME [facility] Last Admin: 04/12/21 23:13 Dose: Not Given Documented by: Pt Own Med Odefsey 1 each PO BEDTIME [facility] Last Admin: 04/12/21 23:13 Dose: Not Given Documented by: Olanzapine (Olanzapine 10 Mg Vial) 20 mg IM BEDTIME PRN PRN Reason: refuses PO, as per Milo valdovinos Olanzapine (Olanzapine Odt 10 Mg Tab.Rapdis) 20 mg TRANSLINGU BEDTIME [facility] Last Admin: 04/12/21 23:13 Dose: Not Given Documented by: Allergies Allergies Allergy/AdvReac Type Severity Reaction Status Date / Time No Known Allergies Allergy Unverified 01/28/20 16:07 [No Known Allergies*] Assessment & Plan Assessment & Plan (1) Schizoaffective disorder, bipolar type: Status: Acute Code(s): F25.0 - Schizoaffective disorder, bipolar type (2) Dementia: Status: Acute Code(s): F03.90 - Unspecified dementia without behavioral disturbance Assessment and Plan: Pt is a 65 y.o. male who carries a dx of bipolar disorder, however sx are more in line with schizoaffective disorder bipolar type, as he presents with disorganized thought content, agitation, and paranoia. He has mild cognitive impairment r/t dementia and mental health dx. He is currently non-adherent with PO medications and is presenting [facility] with decompensation in sx. He was aggressive on transport and required IM haldol, however since arriving to the unit he has been med compliant and pleasant. Last received haldol dec on 03/30/21. Has omar Regan's Order in chart. Seroquel and risperdal are listed as alternatives. Plan: Pt will continue on OP med regimen at this time. Changed zyprexa to bedtime. Monitor response to medications. Monitor for safety in the milieu. Discharge on stabilization. Patient seen. Chart reviewed. Discussed with team. Obtain collateral contact info?as needed An affidavit was filled since the guardian was not being able to be contacted, he has a hearing soon I spent minutes with the patient and/or on the patient floor today, greater than?50% of which was spent counseling/coordinating care. Reason for contiued inpatient stay Substantial Risk for: harm to self, harm to others, inability to function, rapid decompensation and med/psych decompensation
[2021-04-13 19:58] VITALS: BP 121/59; PULSE 100; RESP 17; TEMP 36.2; O2SAT 96
[2021-04-13] MEDS: OLANZapine ODT 10 MG TAB.RAPDIS 20 MG TRANSLINGU (21:15)
[2021-04-13] MEDS: Mirtazapine 15 MG TABLET PO (21:16)
--- NOTE | 2021-04-14 14:28 | HO.PSYCHPN ---
Subjective Subjective Date of Service: 04/14/21 Reason For Visit: Delusions Interim History: The nursing staff reports that the patient took his apex at night. He looks disorganized and he spent most of the time isolative. On interview, the patient refused to engage in conversation and he wants to sleep. He was seen taking his medications and meals in the common area. Mental Status Exam Mental Status Exam Patient Appearance: Disheveled and Unkempt Patient Orientation: Person Level of Consciousness: Awake Patient Behavior: Guarded and Suspicious Mood Description: Hostile and Labile Affect Description: Constricted Patient Cognition Impaired: Yes Ability to Follow Directions: Poor Speech Pattern: Clear Hallucinations: Auditory Delusions: Paranoid Ideation Thought Process: Evasive Judgement: Poor Diagnostics Vital Signs (24Hr): Vital Signs - 24 hr 04/13/21 19:58 Temperature 97.2 F Pulse Rate 100 Respiratory Rate 17 Blood Pressure 121/59 L Pulse Oximetry 96 BMI result Body Mass Index 20.3 Labs Results: 03/31/21 21:09 03/31/21 21:09 Medications Medications Current Medications Acetaminophen (Acetaminophen 325 Mg Tablet) 650 mg PO Q6H PRN PRN Reason: Headache/Pain Mild Scale (1-3) Al Hydroxide/Mg Hydroxide (Magnesium Hydrox/Alum Hydrox 30 Ml Oral.Susp) 30 ml PO Q6H PRN PRN Reason: Heartburn/Nausea Amlodipine Besylate (Amlodipine Besylate 2.5 Mg Tablet) 2.5 mg PO DAILY [facility]; Protocol Last Admin: 04/14/21 10:14 Dose: Not Given Documented by: Clonidine HCl (Clonidine Hcl 0.1 Mg Tablet) 0.1 mg PO Q2H PRN; Protocol PRN Reason: SBP > 150 Last Admin: 04/05/21 21:47 Dose: 0.1 mg Documented by: Ergocalciferol (Ergocalciferol (Vitamin D2) 1,250 Mcg Capsule) 1,250 mcg PO MO [facility]INE Last Admin: 04/10/21 11:19 Dose: Not Given Documented by: Haloperidol Decanoate (Haloperidol Decanoate 50 Mg/Ml Ampul) 50 mg IM Q28D [facility] Hydrochlorothiazide (Hydrochlorothiazide 12.5 Mg Tablet) 12.5 mg PO DAILY [facility]; Protocol Last Admin: 04/14/21 10:13 Dose: Not Given Documented by: Hydroxyzine HCl (Hydroxyzine Hcl 25 Mg Tablet) 25 mg PO Q6H PRN PRN Reason: Anxiety Last Admin: 04/12/21 08:06 Dose: 25 mg Documented by: Levetiracetam (Levetiracetam 500 Mg Tablet) 500 mg PO BID [facility] Last Admin: 04/14/21 10:13 Dose: Not Given Documented by: Loperamide HCl (Loperamide Hcl 2 Mg Capsule) 2 mg PO Q6H PRN PRN Reason: Constipation Magnesium Hydroxide (Milk Of Magnesia 30 Ml Oral.Susp) 30 ml PO DAILY PRN PRN Reason: Constipation Magnesium Hydroxide (Milk Of Magnesia 30 Ml Oral.Susp) 30 ml PO DAILY PRN PRN Reason: Constipation Mirtazapine (Mirtazapine 15 Mg Tablet) 15 mg PO BEDTIME [facility] Last Admin: 04/13/21 21:16 Dose: 15 mg Documented by: Pt Own Med Odefsey 1 each PO BEDTIME [facility] Last Admin: 04/13/21 21:16 Dose: 1 each Documented by: Olanzapine (Olanzapine 10 Mg Vial) 20 mg IM BEDTIME PRN PRN Reason: refuses PO, as per Milo valdovinos Olanzapine (Olanzapine Odt 10 Mg Tab.Rapdis) 20 mg TRANSLINGU BEDTIME [facility] Last Admin: 04/13/21 21:15 Dose: 20 mg Documented by: Allergies Allergies Allergy/AdvReac Type Severity Reaction Status Date / Time No Known Allergies Allergy Unverified 01/28/20 16:07 [No Known Allergies*] Assessment & Plan Assessment & Plan (1) Schizoaffective disorder, bipolar type: Status: Acute Code(s): F25.0 - Schizoaffective disorder, bipolar type (2) Dementia: Status: Acute Code(s): F03.90 - Unspecified dementia without behavioral disturbance Assessment and Plan: Pt is a 65 y.o. male who carries a dx of bipolar disorder, however sx are more in line with schizoaffective disorder bipolar type, as he presents with disorganized thought content, agitation, and paranoia. He has mild cognitive impairment r/t dementia and mental health dx. He is currently non-adherent with PO medications and is presenting [facility] with decompensation in sx. He was aggressive on transport and required IM haldol, however since arriving to the unit he has been med compliant and pleasant. Last received haldol dec on 03/30/21. Has omar Regan's Order in chart. Seroquel and risperdal are listed as alternatives. Plan: Pt will continue on OP med regimen at this time. Changed zyprexa to bedtime. Monitor response to medications. Monitor for safety in the milieu. Discharge on stabilization. Patient seen. Chart reviewed. Discussed with team. Obtain collateral contact info?as needed An affidavit was filled since the guardian was not being able to be contacted, he has a hearing soon I spent minutes with the patient and/or on the patient floor today, greater than?50% of which was spent counseling/coordinating care. Reason for contiued inpatient stay Substantial Risk for: harm to others, inability to function, rapid decompensation and med/psych decompensation
[2021-04-14] MEDS: OLANZapine 10 MG VIAL 20 MG IM (20:34)
--- NOTE | 2021-04-15 14:04 | HO.PSYCHPN ---
Subjective Subjective Date of Service: 04/15/21 Reason For Visit: Delusions Subjective Notes: Pedraza Order Interim History: client has been irritable hostile with staff verbally abusive. Poor hygiene. Internally preoccupied. Receiving olanzapine IM as per Pedraza order. With physician underwriter today told physician underwriter to get out of his room and he did not want to talk. Very irritable. Medication Compliance: Yes ( as per Pedraza order) Side effects from medications: No Attending Groups: No Review of Systems Acute medical concerns: No Review of Systems Review of Systems unable to evaluate due to patient engagement Mental Status Exam Mental Status Exam Narrative: in bed. Irritable. Verbally hostile. Not engaging in interview. No evidence of SI. Internally preoccupied. Insight and judgment poor Diagnostics Vital Signs (24Hr): BMI result Body Mass Index 20.3 Labs Results: 03/31/21 21:09 03/31/21 21:09 Medications Medications Current Medications Acetaminophen (Acetaminophen 325 Mg Tablet) 650 mg PO Q6H PRN PRN Reason: Headache/Pain Mild Scale (1-3) Al Hydroxide/Mg Hydroxide (Magnesium Hydrox/Alum Hydrox 30 Ml Oral.Susp) 30 ml PO Q6H PRN PRN Reason: Heartburn/Nausea Amlodipine Besylate (Amlodipine Besylate 2.5 Mg Tablet) 2.5 mg PO DAILY [facility]; Protocol Last Admin: 04/15/21 08:41 Dose: Not Given Documented by: Clonidine HCl (Clonidine Hcl 0.1 Mg Tablet) 0.1 mg PO Q2H PRN; Protocol PRN Reason: SBP > 150 Last Admin: 04/05/21 21:47 Dose: 0.1 mg Documented by: Ergocalciferol (Ergocalciferol (Vitamin D2) 1,250 Mcg Capsule) 1,250 mcg PO MO [facility]INE Last Admin: 04/10/21 11:19 Dose: Not Given Documented by: Haloperidol Decanoate (Haloperidol Decanoate 50 Mg/Ml Ampul) 50 mg IM Q28D [facility] Hydrochlorothiazide (Hydrochlorothiazide 12.5 Mg Tablet) 12.5 mg PO DAILY [facility]; Protocol Last Admin: 04/15/21 08:42 Dose: Not Given Documented by: Hydroxyzine HCl (Hydroxyzine Hcl 25 Mg Tablet) 25 mg PO Q6H PRN PRN Reason: Anxiety Last Admin: 04/12/21 08:06 Dose: 25 mg Documented by: Levetiracetam (Levetiracetam 500 Mg Tablet) 500 mg PO BID [facility] Last Admin: 04/15/21 08:42 Dose: Not Given Documented by: Loperamide HCl (Loperamide Hcl 2 Mg Capsule) 2 mg PO Q6H PRN PRN Reason: Constipation Magnesium Hydroxide (Milk Of Magnesia 30 Ml Oral.Susp) 30 ml PO DAILY PRN PRN Reason: Constipation Magnesium Hydroxide (Milk Of Magnesia 30 Ml Oral.Susp) 30 ml PO DAILY PRN PRN Reason: Constipation Mirtazapine (Mirtazapine 15 Mg Tablet) 15 mg PO BEDTIME [facility] Last Admin: 04/14/21 22:21 Dose: Not Given Documented by: Pt Own Med Odefsey 1 each PO BEDTIME [facility] Last Admin: 04/14/21 22:21 Dose: Not Given Documented by: Olanzapine (Olanzapine 10 Mg Vial) 20 mg IM BEDTIME PRN PRN Reason: refuses PO, as per Milo valdovinos Last Admin: 04/14/21 20:34 Dose: 20 mg Documented by: Olanzapine (Olanzapine Odt 10 Mg Tab.Rapdis) 20 mg TRANSLINGU BEDTIME [facility] Last Admin: 04/14/21 22:21 Dose: Not Given Documented by: Allergies Allergies Allergy/AdvReac Type Severity Reaction Status Date / Time No Known Allergies Allergy Unverified 01/28/20 16:07 [No Known Allergies*] Assessment & Plan Assessment & Plan (1) Schizoaffective disorder, bipolar type: Status: Acute Code(s): F25.0 - Schizoaffective disorder, bipolar type (2) Dementia: Status: Acute Code(s): F03.90 - Unspecified dementia without behavioral disturbance Assessment and Plan: Pt is a 65 y.o. male who carries a dx of bipolar disorder, however sx are more in line with schizoaffective disorder bipolar type, as he presents with disorganized thought content, agitation, and paranoia. He has mild cognitive impairment r/t dementia and mental health dx. He is currently non-adherent with PO medications and is presenting from [facility] with decompensation in sx. He was aggressive on transport and required IM haldol, however since arriving to the unit he has been med compliant and pleasant. Last received haldol dec on 03/30/21. Has community Jass's Order in chart. Seroquel and risperdal are listed as alternatives. Plan: Pt will continue on OP med regimen at this time. Changed zyprexa to bedtime. Monitor response to medications. Monitor for safety in the milieu. Discharge on stabilization. Patient seen. Chart reviewed. Discussed with team. Obtain collateral contact info?as needed An affidavit was filled since the guardian was not being able to be contacted, he has a hearing soon 04/15/2021: No change to current treatment plan, with medications as per Milo order I spent minutes with the patient and/or on the patient floor today, greater than?50% of which was spent counseling/coordinating care. Reason for contiued inpatient stay Substantial Risk for: inability to function and rapid decompensation
[2021-04-15] MEDS: OLANZapine 10 MG VIAL 20 MG IM (20:16)
--- NOTE | 2021-04-16 10:38 | P.PNPSI_ITS ---
Subjective Subjective Date of Service: 04/16/21 Reason For Visit: Delusions Subjective Notes: Pedraza Order and Section 8 Medical Problems Affecting Mental Status: No Interim History: As per staff: had bed bath last night with secuirty support- incontinent, poor hygiene, skin was noted to be intact during same. Today he would not engage with comic book writer- looked, but did not talk, and turned away. Internally preoccupied. Continues to receive olanzapine IM as per Robert order. Medication Compliance: Yes (as per robert) Side effects from medications: No Attending Groups: No Review of Systems Acute medical concerns: No Review of Systems Review of Systems unable to evaluate due to patient engagement Yes Unobtainable due to mental condition Mental Status Exam Mental Status Exam Narrative: in bed. Irritable. Not engaging in interview. No evidence of SI. Internally preoccupied. Insight and judgment poor Diagnostics Vital Signs (24Hr): BMI result Body Mass Index 20.3 Labs Results: 03/31/21 21:09 03/31/21 21:09 Medications Medications Current Medications Acetaminophen (Acetaminophen 325 Mg Tablet) 650 mg PO Q6H PRN PRN Reason: Headache/Pain Mild Scale (1-3) Al Hydroxide/Mg Hydroxide (Magnesium Hydrox/Alum Hydrox 30 Ml Oral.Susp) 30 ml PO Q6H PRN PRN Reason: Heartburn/Nausea Amlodipine Besylate (Amlodipine Besylate 2.5 Mg Tablet) 2.5 mg PO DAILY [facility]; Protocol Last Admin: 04/16/21 07:52 Dose: Not Given Documented by: Clonidine HCl (Clonidine Hcl 0.1 Mg Tablet) 0.1 mg PO Q2H PRN; Protocol PRN Reason: SBP > 150 Last Admin: 04/05/21 21:47 Dose: 0.1 mg Documented by: Ergocalciferol (Ergocalciferol (Vitamin D2) 1,250 Mcg Capsule) 1,250 mcg PO MO [facility] Last Admin: 04/10/21 11:19 Dose: Not Given Documented by: Haloperidol Decanoate (Haloperidol Decanoate 50 Mg/Ml Ampul) 50 mg IM Q28D [facility] Hydrochlorothiazide (Hydrochlorothiazide 12.5 Mg Tablet) 12.5 mg PO DAILY [facility]; Protocol Last Admin: 04/16/21 07:52 Dose: Not Given Documented by: Hydroxyzine HCl (Hydroxyzine Hcl 25 Mg Tablet) 25 mg PO Q6H PRN PRN Reason: Anxiety Last Admin: 04/12/21 08:06 Dose: 25 mg Documented by: Levetiracetam (Levetiracetam 500 Mg Tablet) 500 mg PO BID [facility] Last Admin: 04/16/21 07:53 Dose: Not Given Documented by: Loperamide HCl (Loperamide Hcl 2 Mg Capsule) 2 mg PO Q6H PRN PRN Reason: Constipation Magnesium Hydroxide (Milk Of Magnesia 30 Ml Oral.Susp) 30 ml PO DAILY PRN PRN Reason: Constipation Magnesium Hydroxide (Milk Of Magnesia 30 Ml Oral.Susp) 30 ml PO DAILY PRN PRN Reason: Constipation Mirtazapine (Mirtazapine 15 Mg Tablet) 15 mg PO BEDTIME [facility] Last Admin: 04/15/21 20:12 Dose: Not Given Documented by: Pt Own Med Odefsey 1 each PO BEDTIME [facility] Last Admin: 04/15/21 20:12 Dose: Not Given Documented by: Olanzapine (Olanzapine 10 Mg Vial) 20 mg IM BEDTIME PRN PRN Reason: refuses PO, as per Robert valdovinos Last Admin: 04/15/21 20:16 Dose: 20 mg Documented by: Olanzapine (Olanzapine Odt 10 Mg Tab.Rapdis) 20 mg TRANSLINGU BEDTIME [facility] Last Admin: 04/15/21 20:12 Dose: Not Given Documented by: Allergies Allergies Allergy/AdvReac Type Severity Reaction Status Date / Time No Known Allergies Allergy Unverified 01/28/20 16:07 [No Known Allergies*] Assessment & Plan Assessment & Plan (1) Schizoaffective disorder, bipolar type: Status: Acute Code(s): F25.0 - Schizoaffective disorder, bipolar type (2) Dementia: Status: Acute Code(s): F03.90 - Unspecified dementia without behavioral disturbance Assessment and Plan: Pt is a 65 y.o. male who carries a dx of bipolar disorder, however sx are more in line with schizoaffective disorder bipolar type, as he presents with disorganized thought content, agitation, and paranoia. He has mild cognitive impairment r/t dementia and mental health dx. He is currently non-adherent with PO medications and is presenting from [facility] with decompensation in sx. He was aggressive on transport and required IM haldol, however since arriving to the unit he has been med compliant and pleasant. Last received haldol dec on 03/30/21. Has community Jass's Order in chart. Seroquel and risperdal are listed as alternatives. Plan: Pt will continue on OP med regimen at this time. Changed zyprexa to bedtim e. Monitor response to medications. Monitor for safety in the milieu. Discharge on stabilization. Patient seen. Chart reviewed. Discussed with team. Obtain collateral contact info?as needed An affidavit was filled since the guardian was not being able to be contacted, he has a hearing soon 04/16/2021: No change to current treatment plan, with medications as per Robert order I spent minutes with the patient and/or on the patient floor today, greater than?50% of which was spent counseling/coordinating care. Reason for contiued inpatient stay Substantial Risk for: inability to function
[2021-04-16] MEDS: OLANZapine ODT 10 MG TAB.RAPDIS 20 MG TRANSLINGU (20:08)
[2021-04-17 08:19] VITALS: BP 129/73; PULSE 123
[2021-04-17] MEDS: amLODIPine Besylate 2.5 MG TABLET PO (08:19)
[2021-04-17] MEDS: levETIRAcetam 500 MG TABLET PO ×2 (08:19→21:28)
[2021-04-17] MEDS: hydroCHLOROthiazide 12.5 MG TABLET PO (08:19)
[2021-04-17 09:28] VITALS: BP 129/73; PULSE 123; TEMP 35.7; O2SAT 92
[2021-04-17] MEDS: Ergocalciferol (Vitamin D2) 1,250 MCG CAPSULE 1250 MCG PO (10:19)
--- NOTE | 2021-04-17 12:44 | HO.PSYCHPN ---
Subjective Subjective Date of Service: 04/17/21 Reason For Visit: Delusions Subjective Notes: Conditional Voluntary Interim History: The nursing staff reports that patient takes p.o. medications, his appetite is poor but he drinks Ensure. He spends most of the time in his room and he does not attend to groups. On interview, the patient was seclusive in his room internally preoccupied. Mental Status Exam Mental Status Exam Patient Appearance: Disheveled and Unkempt Patient Orientation: Person Level of Consciousness: Awake Patient Behavior: Guarded and Passive Mood Description: Withdrawn and Hostile Affect Description: Constricted Patient Cognition Impaired: Yes Ability to Follow Directions: Fair Speech Pattern: Clear and Garbled Hallucinations: Auditory Delusions: Paranoid Ideation Thought Process: Distracted and Slowed Thinking Thought Content: positive for Circumstantial Judgement: Fair Diagnostics Vital Signs (24Hr): Vital Signs - 24 hr 04/17/21 08:19 04/17/21 09:28 Temperature 96.2 F L Pulse Rate 123 H 123 H Blood Pressure 129/73 129/73 Pulse Oximetry 92 BMI result Body Mass Index 20.3 Labs Results: 03/31/21 21:09 03/31/21 21:09 Medications Medications Current Medications Acetaminophen (Acetaminophen 325 Mg Tablet) 650 mg PO Q6H PRN PRN Reason: Headache/Pain Mild Scale (1-3) Al Hydroxide/Mg Hydroxide (Magnesium Hydrox/Alum Hydrox 30 Ml Oral.Susp) 30 ml PO Q6H PRN PRN Reason: Heartburn/Nausea Amlodipine Besylate (Amlodipine Besylate 2.5 Mg Tablet) 2.5 mg PO DAILY [facility]; Protocol Last Admin: 04/17/21 08:19 Dose: 2.5 mg Documented by: Clonidine HCl (Clonidine Hcl 0.1 Mg Tablet) 0.1 mg PO Q2H PRN; Protocol PRN Reason: SBP > 150 Last Admin: 04/05/21 21:47 Dose: 0.1 mg Documented by: Ergocalciferol (Ergocalciferol (Vitamin D2) 1,250 Mcg Capsule) 1,250 mcg PO MO [facility] Last Admin: 04/17/21 10:19 Dose: 1,250 mcg Documented by: Haloperidol Decanoate (Haloperidol Decanoate 50 Mg/Ml Ampul) 50 mg IM Q28D [facility] Hydrochlorothiazide (Hydrochlorothiazide 12.5 Mg Tablet) 12.5 mg PO DAILY [facility]; Protocol Last Admin: 04/17/21 08:19 Dose: 12.5 mg Documented by: Hydroxyzine HCl (Hydroxyzine Hcl 25 Mg Tablet) 25 mg PO Q6H PRN PRN Reason: Anxiety Last Admin: 04/12/21 08:06 Dose: 25 mg Documented by: Levetiracetam (Levetiracetam 500 Mg Tablet) 500 mg PO BID [facility] Last Admin: 04/17/21 08:19 Dose: 500 mg Documented by: Loperamide HCl (Loperamide Hcl 2 Mg Capsule) 2 mg PO Q6H PRN PRN Reason: Constipation Magnesium Hydroxide (Milk Of Magnesia 30 Ml Oral.Susp) 30 ml PO DAILY PRN PRN Reason: Constipation Magnesium Hydroxide (Milk Of Magnesia 30 Ml Oral.Susp) 30 ml PO DAILY PRN PRN Reason: Constipation Mirtazapine (Mirtazapine 15 Mg Tablet) 15 mg PO BEDTIME [facility] Last Admin: 04/16/21 20:23 Dose: Not Given Documented by: Pt Own Med Odefsey 1 each PO BEDTIME [facility] Last Admin: 04/16/21 20:24 Dose: Not Given Documented by: Olanzapine (Olanzapine 10 Mg Vial) 20 mg IM BEDTIME PRN PRN Reason: refuses PO, as per Milo valdovinos Last Admin: 04/15/21 20:16 Dose: 20 mg Documented by: Olanzapine (Olanzapine Odt 10 Mg Tab.Rapdis) 20 mg TRANSLINGU BEDTIME [facility] Last Admin: 04/16/21 20:08 Dose: 20 mg Documented by: Allergies Allergies Allergy/AdvReac Type Severity Reaction Status Date / Time No Known Allergies Allergy Unverified 01/28/20 16:07 [No Known Allergies*] Assessment & Plan Assessment & Plan (1) Schizoaffective disorder, bipolar type: Status: Acute Code(s): F25.0 - Schizoaffective disorder, bipolar type (2) Dementia: Status: Acute Code(s): F03.90 - Unspecified dementia without behavioral disturbance Assessment and Plan: Pt is a 65 y.o. male who carries a dx of bipolar disorder, however sx are more in line with schizoaffective disorder bipolar type, as he presents with disorganized thought content, agitation, and paranoia. He has mild cognitive impairment r/t dementia and mental health dx. He is currently non-adherent with PO medications and is presenting from [facility] with decompensation in sx. He was aggressive on transport and required IM haldol, however since arriving to the unit he has been med compliant and pleasant. Last received haldol dec on 03/30/21. Has community Jass's Order in chart. Seroquel and risperdal are listed as alternatives. Plan: Pt will continue on OP med regimen at this time. Changed zyprexa to bedtime. Monitor response to medications. Monitor for safety in the milieu. Discharge on stabilization. Patient seen. Chart reviewed. Discussed with team. Obtain collateral contact info?as needed An affidavit was filled since the guardian was not being able to be contacted, he has a hearing soon 04/16/2021: No change to current treatment plan, with medications as per Milo order I spent minutes with the patient and/or on the patient floor today, greater than?50% of which was spent counseling/coordinating care. Reason for contiued inpatient stay Substantial Risk for: harm to self, harm to others, inability to function, rapid decompensation and med/psych decompensation
[2021-04-17] MEDS: Acetaminophen 325 MG TABLET 650 MG PO (14:52)
[2021-04-17] MEDS: OLANZapine ODT 10 MG TAB.RAPDIS 20 MG TRANSLINGU (21:27)
[2021-04-17] MEDS: Mirtazapine 15 MG TABLET PO (21:28)
[2021-04-18 06:00] VITALS: BP 106/75; PULSE 116; RESP 14; TEMP 37.1; O2SAT 92
--- NOTE | 2021-04-18 16:18 | P.PNPSI_ITS ---
Subjective Subjective Date of Service: 04/18/21 Reason For Visit: Delusions Subjective Notes: Conditional Voluntary Interim History: The nursing staff reports that the patient is mostly isolative in his room, he comes out only for meals with a lot of encouragement. On interview, the patient was internally preoccupied, minimally engaged in the conversation Mental Status Exam Mental Status Exam Patient Appearance: Well Grooomed Patient Orientation: Person Level of Consciousness: Awake Patient Behavior: Guarded and Suspicious Mood Description: Labile Affect Description: Constricted Patient Cognition Impaired: Yes Ability to Follow Directions: Good Speech Pattern: Clear Hallucinations: Auditory Delusions: Paranoid Ideation Thought Process: Linear Thought Content: positive for Circumstantial Judgement: Fair Diagnostics Vital Signs (24Hr): Vital Signs - 24 hr 04/18/21 06:00 Temperature 98.8 F Pulse Rate 116 H Respiratory Rate 14 Blood Pressure 106/75 Pulse Oximetry 92 BMI result Body Mass Index 20.3 Labs Results: 03/31/21 21:09 03/31/21 21:09 Medications Medications Current Medications Acetaminophen (Acetaminophen 325 Mg Tablet) 650 mg PO Q6H PRN PRN Reason: Headache/Pain Mild Scale (1-3) Last Admin: 04/17/21 14:52 Dose: 650 mg Documented by: Al Hydroxide/Mg Hydroxide (Magnesium Hydrox/Alum Hydrox 30 Ml Oral.Susp) 30 ml PO Q6H PRN PRN Reason: Heartburn/Nausea Amlodipine Besylate (Amlodipine Besylate 2.5 Mg Tablet) 2.5 mg PO DAILY CARINE; Protocol Last Admin: 04/18/21 10:23 Dose: Not Given Documented by: Clonidine HCl (Clonidine Hcl 0.1 Mg Tablet) 0.1 mg PO Q2H PRN; Protocol PRN Reason: SBP > 150 Last Admin: 04/05/21 21:47 Dose: 0.1 mg Documented by: Ergocalciferol (Ergocalciferol (Vitamin D2) 1,250 Mcg Capsule) 1,250 mcg PO MO CARINE Last Admin: 04/17/21 10:19 Dose: 1,250 mcg Documented by: Haloperidol Decanoate (Haloperidol Decanoate 50 Mg/Ml Ampul) 50 mg IM Q28D [facility] Hydrochlorothiazide (Hydrochlorothiazide 12.5 Mg Tablet) 12.5 mg PO DAILY [facility]INE; Protocol Last Admin: 04/18/21 10:23 Dose: Not Given Documented by: Hydroxyzine HCl (Hydroxyzine Hcl 25 Mg Tablet) 25 mg PO Q6H PRN PRN Reason: Anxiety Last Admin: 04/12/21 08:06 Dose: 25 mg Documented by: Levetiracetam (Levetiracetam 500 Mg Tablet) 500 mg PO BID [facility] Last Admin: 04/18/21 10:24 Dose: Not Given Documented by: Loperamide HCl (Loperamide Hcl 2 Mg Capsule) 2 mg PO Q6H PRN PRN Reason: Constipation Magnesium Hydroxide (Milk Of Magnesia 30 Ml Oral.Susp) 30 ml PO DAILY PRN PRN Reason: Constipation Magnesium Hydroxide (Milk Of Magnesia 30 Ml Oral.Susp) 30 ml PO DAILY PRN PRN Reason: Constipation Mirtazapine (Mirtazapine 15 Mg Tablet) 15 mg PO BEDTIME [facility] Last Admin: 04/17/21 21:28 Dose: 15 mg Documented by: Pt Own Med Odefsey 1 each PO BEDTIME [facility] Last Admin: 04/17/21 21:28 Dose: 1 each Documented by: Olanzapine (Olanzapine 10 Mg Vial) 20 mg IM BEDTIME PRN PRN Reason: refuses PO, as per Milo valdovinos Last Admin: 04/15/21 20:16 Dose: 20 mg Documented by: Olanzapine (Olanzapine Odt 10 Mg Tab.Rapdis) 20 mg TRANSLINGU BEDTIME [facility] Last Admin: 04/17/21 21:27 Dose: 20 mg Documented by: Allergies Allergies Allergy/AdvReac Type Severity Reaction Status Date / Time No Known Allergies Allergy Unverified 01/28/20 16:07 [No Known Allergies*] Assessment & Plan Assessment & Plan (1) Schizoaffective disorder, bipolar type: Status: Acute Code(s): F25.0 - Schizoaffective disorder, bipolar type (2) Dementia: Status: Acute Code(s): F03.90 - Unspecified dementia without behavioral disturbance Assessment and Plan: Pt is a 65 y.o. male who carries a dx of bipolar disorder, however sx are more in line with schizoaffective disorder bipolar type, as he presents with disorganized thought content, agitation, and paranoia. He has mild cognitive impairment r/t dementia and mental health dx. He is currently non-adherent with PO medications and is [facility] with decompensation in sx. He was aggressive on transport and required IM haldol, however since arriving to the unit he has been med compliant and pleasant. Last received haldol dec on 03/30/21. Has omar Regan's Order in chart. Seroquel and risperdal are listed as alternatives. Plan: Pt will continue on OP med regimen at this time. Changed zyprexa to bedtime. Monitor response to medications. Monitor for safety in the milieu. Discharge on stabilization. Patient seen. Chart reviewed. Discussed with team. Obtain collateral contact info?as needed An affidavit was filled since the guardian was not being able to be contacted, he has a hearing soon and our resource center teacher will be the legal guardian pretty soon. I spent minutes with the patient and/or on the patient floor today, greater than?50% of which was spent counseling/coordinating care. Reason for contiued inpatient stay Substantial Risk for: harm to self, harm to others, inability to function, rapid decompensation and med/psych decompensation
[2021-04-18] MEDS: levETIRAcetam 500 MG TABLET PO (20:25)
[2021-04-18] MEDS: Mirtazapine 15 MG TABLET PO (20:25)
[2021-04-18] MEDS: OLANZapine ODT 10 MG TAB.RAPDIS 20 MG TRANSLINGU (20:25)
[2021-04-19 08:00] VITALS: BP 131/83; PULSE 117; TEMP 36.3; O2SAT 94
[2021-04-19 09:15] VITALS: BP 131/83; PULSE 117
[2021-04-19] MEDS: amLODIPine Besylate 2.5 MG TABLET PO (09:15)
[2021-04-19] MEDS: hydrOXYzine HCL 25 MG TABLET PO (09:15)
[2021-04-19] MEDS: levETIRAcetam 500 MG TABLET PO ×2 (09:15→20:24)
[2021-04-19] MEDS: hydroCHLOROthiazide 12.5 MG TABLET PO (09:15)
[2021-04-19] MEDS: Mirtazapine 15 MG TABLET PO (20:24)
[2021-04-19] MEDS: OLANZapine ODT 10 MG TAB.RAPDIS 20 MG TRANSLINGU (20:24)
--- NOTE | 2021-04-19 22:11 | HO.PSYCHPN ---
Subjective Subjective Date of Service: 04/19/21 Reason For Visit: Delusions Subjective Notes: Conditional Voluntary Interim History: Patient isolative withdrawn no clear complaint accepting a medication Medication Compliance: Yes Attending Groups: No Mental Status Exam Mental Status Exam Patient Appearance: Well Grooomed Patient Orientation: Person Level of Consciousness: Awake Patient Behavior: Guarded and Suspicious Mood Description: Labile Affect Description: Constricted Patient Cognition Impaired: Yes Ability to Follow Directions: Good Speech Pattern: Clear Hallucinations: Auditory Delusions: Paranoid Ideation Thought Process: Linear Thought Content: positive for Circumstantial Judgement: Fair Diagnostics Vital Signs (24Hr): Vital Signs - 24 hr 04/19/21 08:00 04/19/21 09:15 Temperature 97.4 F Pulse Rate 117 H 117 H Blood Pressure 131/83 131/83 Pulse Oximetry 94 BMI result Body Mass Index 20.3 Labs Results: 03/31/21 21:09 03/31/21 21:09 Medications Medications Current Medications Acetaminophen (Acetaminophen 325 Mg Tablet) 650 mg PO Q6H PRN PRN Reason: Headache/Pain Mild Scale (1-3) Last Admin: 04/17/21 14:52 Dose: 650 mg Documented by: Al Hydroxide/Mg Hydroxide (Magnesium Hydrox/Alum Hydrox 30 Ml Oral.Susp) 30 ml PO Q6H PRN PRN Reason: Heartburn/Nausea Amlodipine Besylate (Amlodipine Besylate 2.5 Mg Tablet) 2.5 mg PO DAILY [facility]; Protocol Last Admin: 04/19/21 09:15 Dose: 2.5 mg Documented by: Clonidine HCl (Clonidine Hcl 0.1 Mg Tablet) 0.1 mg PO Q2H PRN; Protocol PRN Reason: SBP > 150 Last Admin: 04/05/21 21:47 Dose: 0.1 mg Documented by: Ergocalciferol (Ergocalciferol (Vitamin D2) 1,250 Mcg Capsule) 1,250 mcg PO MO [facility] Last Admin: 04/17/21 10:19 Dose: 1,250 mcg Documented by: Haloperidol Decanoate (Haloperidol Decanoate 50 Mg/Ml Ampul) 50 mg IM Q28D [facility] Hydrochlorothiazide (Hydrochlorothiazide 12.5 Mg Tablet) 12.5 mg PO DAILY [facility]; Protocol Last Admin: 04/19/21 09:15 Dose: 12.5 mg Documented by: Hydroxyzine HCl (Hydroxyzine Hcl 25 Mg Tablet) 25 mg PO Q6H PRN PRN Reason: Anxiety Last Admin: 04/19/21 09:15 Dose: 25 mg Documented by: Levetiracetam (Levetiracetam 500 Mg Tablet) 500 mg PO BID [facility] Last Admin: 04/19/21 20:24 Dose: 500 mg Documented by: Loperamide HCl (Loperamide Hcl 2 Mg Capsule) 2 mg PO Q6H PRN PRN Reason: Constipation Magnesium Hydroxide (Milk Of Magnesia 30 Ml Oral.Susp) 30 ml PO DAILY PRN PRN Reason: Constipation Magnesium Hydroxide (Milk Of Magnesia 30 Ml Oral.Susp) 30 ml PO DAILY PRN PRN Reason: Constipation Mirtazapine (Mirtazapine 15 Mg Tablet) 15 mg PO BEDTIME [facility] Last Admin: 04/19/21 20:24 Dose: 15 mg Documented by: Pt Own Med Odefsey 1 each PO BEDTIME [facility] Last Admin: 04/19/21 20:24 Dose: 1 each Documented by: Olanzapine (Olanzapine 10 Mg Vial) 20 mg IM BEDTIME PRN PRN Reason: refuses PO, as per Milo valdovinos Last Admin: 04/15/21 20:16 Dose: 20 mg Documented by: Olanzapine (Olanzapine Odt 10 Mg Tab.Rapdis) 20 mg TRANSLINGU BEDTIME [facility] Last Admin: 04/19/21 20:24 Dose: 20 mg Documented by: Allergies Allergies Allergy/AdvReac Type Severity Reaction Status Date / Time No Known Allergies Allergy Unverified 01/28/20 16:07 [No Known Allergies*] Assessment & Plan Assessment & Plan (1) Schizoaffective disorder, bipolar type: Status: Acute Code(s): F25.0 - Schizoaffective disorder, bipolar type (2) Dementia: Status: Acute Code(s): F03.90 - Unspecified dementia without behavioral disturbance Assessment and Plan: Pt is a 65 y.o. male who carries a dx of bipolar disorder, however sx are more in line with schizoaffective disorder bipolar type, as he presents with disorganized thought content, agitation, and paranoia. He has mild cognitive impairment r/t dementia and mental health dx. He is currently non-adherent with PO medications and is [facility] with decompensation in sx. He was aggressive on transport and required IM haldol, however since arriving to the unit he has been med compliant and pleasant. Last received haldol dec on 03/30/21. Has omar Regan's Order in chart. Seroquel and risperdal are listed as alternatives. Plan: Pt will continue on OP med regimen at this time. Changed zyprexa to bedtime. Monitor response to medications. Monitor for safety in the milieu. Discharge on stabilization. Patient seen. Chart reviewed. Discussed with team. Obtain collateral contact info?as needed An affidavit was filled since the guardian was not being able to be contacted, he has a hearing soon and our real estate associate attorney will be the legal guardian pretty soon. 04/19/2021 Continue plan of care I spent minutes with the patient and/or on the patient floor today, greater than?50% of which was spent counseling/coordinating care. Reason for contiued inpatient stay Substantial Risk for: inability to function and rapid decompensation
[2021-04-20 09:00] VITALS: BP 153/91; PULSE 131; TEMP 36.4; O2SAT 93
[2021-04-20 09:25] VITALS: BP 153/91; PULSE 131
[2021-04-20] MEDS: amLODIPine Besylate 2.5 MG TABLET PO (09:25)
[2021-04-20] MEDS: hydrOXYzine HCL 25 MG TABLET PO ×2 (09:25→20:11)
[2021-04-20] MEDS: levETIRAcetam 500 MG TABLET PO ×2 (09:25→20:11)
[2021-04-20] MEDS: hydroCHLOROthiazide 12.5 MG TABLET PO (09:25)
--- NOTE | 2021-04-20 14:38 | HO.PSYCHPN ---
Subjective Subjective Date of Service: 04/20/21 Reason For Visit: Delusions Subjective Notes: Conditional Voluntary Interim History: The nursing staff reported the patient is still mostly seclusive in his room but the staff reported that he has an more pleasant. He needs a lot of assistance for showering. On interview, the patient refused to elaborate and he states that he was doing fine. Mental Status Exam Mental Status Exam Patient Appearance: Disheveled and Unkempt Patient Orientation: Person Level of Consciousness: Awake Patient Behavior: Guarded and Suspicious Mood Description: Depressed Affect Description: Constricted and Labile Patient Cognition Impaired: Yes Ability to Follow Directions: Fair Speech Pattern: Appropriate Hallucinations: None Delusions: Paranoid Ideation Thought Process: Linear Thought Content: positive for Preoccupation Judgement: Fair Diagnostics Vital Signs (24Hr): Vital Signs - 24 hr 04/20/21 09:00 04/20/21 09:25 Temperature 97.5 F Pulse Rate 131 H 131 H Blood Pressure 153/91 H 153/91 H Pulse Oximetry 93 BMI result Body Mass Index 20.3 Labs Results: 03/31/21 21:09 03/31/21 21:09 Medications Medications Current Medications Acetaminophen (Acetaminophen 325 Mg Tablet) 650 mg PO Q6H PRN PRN Reason: Headache/Pain Mild Scale (1-3) Last Admin: 04/17/21 14:52 Dose: 650 mg Documented by: Al Hydroxide/Mg Hydroxide (Magnesium Hydrox/Alum Hydrox 30 Ml Oral.Susp) 30 ml PO Q6H PRN PRN Reason: Heartburn/Nausea Amlodipine Besylate (Amlodipine Besylate 2.5 Mg Tablet) 2.5 mg PO DAILY [facility]; Protocol Last Admin: 04/20/21 09:25 Dose: 2.5 mg Documented by: Clonidine HCl (Clonidine Hcl 0.1 Mg Tablet) 0.1 mg PO Q2H PRN; Protocol PRN Reason: SBP > 150 Last Admin: 04/05/21 21:47 Dose: 0.1 mg Documented by: Ergocalciferol (Ergocalciferol (Vitamin D2) 1,250 Mcg Capsule) 1,250 mcg PO MO [facility] Last Admin: 04/17/21 10:19 Dose: 1,250 mcg Documented by: Haloperidol Decanoate (Haloperidol Decanoate 50 Mg/Ml Ampul) 50 mg IM Q28D [facility] Hydrochlorothiazide (Hydrochlorothiazide 12.5 Mg Tablet) 12.5 mg PO DAILY [facility]; Protocol Last Admin: 04/20/21 09:25 Dose: 12.5 mg Documented by: Hydroxyzine HCl (Hydroxyzine Hcl 25 Mg Tablet) 25 mg PO Q6H PRN PRN Reason: Anxiety Last Admin: 04/20/21 09:25 Dose: 25 mg Documented by: Levetiracetam (Levetiracetam 500 Mg Tablet) 500 mg PO BID [facility] Last Admin: 04/20/21 09:25 Dose: 500 mg Documented by: Loperamide HCl (Loperamide Hcl 2 Mg Capsule) 2 mg PO Q6H PRN PRN Reason: Constipation Magnesium Hydroxide (Milk Of Magnesia 30 Ml Oral.Susp) 30 ml PO DAILY PRN PRN Reason: Constipation Magnesium Hydroxide (Milk Of Magnesia 30 Ml Oral.Susp) 30 ml PO DAILY PRN PRN Reason: Constipation Mirtazapine (Mirtazapine 15 Mg Tablet) 15 mg PO BEDTIME [facility] Last Admin: 04/19/21 20:24 Dose: 15 mg Documented by: Pt Own Med Odefsey 1 each PO BEDTIME [facility] Last Admin: 04/19/21 20:24 Dose: 1 each Documented by: Olanzapine (Olanzapine 10 Mg Vial) 20 mg IM BEDTIME PRN PRN Reason: refuses PO, as per Milo valdovinos Last Admin: 04/15/21 20:16 Dose: 20 mg Documented by: Olanzapine (Olanzapine Odt 10 Mg Tab.Rapdis) 20 mg TRANSLINGU BEDTIME [facility] Last Admin: 04/19/21 20:24 Dose: 20 mg Documented by: Allergies Allergies Allergy/AdvReac Type Severity Reaction Status Date / Time No Known Allergies Allergy Unverified 01/28/20 16:07 [No Known Allergies*] Assessment & Plan Assessment & Plan (1) Schizoaffective disorder, bipolar type: Status: Acute Code(s): F25.0 - Schizoaffective disorder, bipolar type (2) Dementia: Status: Acute Code(s): F03.90 - Unspecified dementia without behavioral disturbance Assessment and Plan: Pt is a 65 y.o. male who carries a dx of bipolar disorder, however sx are more in line with schizoaffective disorder bipolar type, as he presents with disorganized thought content, agitation, and paranoia. He has mild cognitive impairment r/t dementia and mental health dx. He is currently non-adherent with PO medications and is [facility] with decompensation in sx. He was aggressive on transport and required IM haldol, however since arriving to the unit he has been med compliant and pleasant. Last received haldol dec on 03/30/21. Has community Jass's Order in chart. Seroquel and risperdal are listed as alternatives. Plan: Pt will continue on OP med regimen at this time. Changed zyprexa to bedtime. Monitor response to medications. Monitor for safety in the milieu. Discharge on stabilization. Patient seen. Chart reviewed. Discussed with team. Obtain collateral contact info?as needed An affidavit was filled since the guardian was not being able to be contacted, he has a hearing soon and our document review attorney will be the legal guardian pretty soon. 04/19/2021 Continue plan of care I spent minutes with the patient and/or on the patient floor today, greater than?50% of which was spent counseling/coordinating care. Reason for contiued inpatient stay Substantial Risk for: inability to function, rapid decompensation and med/psych decompensation
[2021-04-20 18:00] VITALS: PULSE 96; RESP 18; TEMP 36.6; O2SAT 97
[2021-04-20] MEDS: Mirtazapine 15 MG TABLET PO (20:11)
[2021-04-20] MEDS: OLANZapine ODT 10 MG TAB.RAPDIS 20 MG TRANSLINGU (20:11)
--- NOTE | 2021-04-21 13:51 | HO.PSYCHPN ---
Subjective Subjective Date of Service: 04/21/21 Reason For Visit: Delusions Subjective Notes: Conditional Voluntary Interim History: The nursing staff reports that the patient is not eating solid food only shakes and other liquids. On interview, the patient refused to engage in his mostly isolative in his room, most likely this is his baseline but we will get collateral information from the care home Mental Status Exam Mental Status Exam Patient Appearance: Disheveled and Unkempt Patient Orientation: Person Level of Consciousness: Alert Patient Behavior: Guarded and Suspicious Mood Description: Withdrawn Affect Description: Constricted Patient Cognition Impaired: Yes Ability to Follow Directions: Fair Speech Pattern: Impoverished Hallucinations: None Delusions: Paranoid Ideation Thought Process: Distracted Thought Content: positive for Poverty of Content and positive for Thought Blocking Judgement: Poor Diagnostics Vital Signs (24Hr): Vital Signs - 24 hr 04/20/21 18:00 Temperature 97.8 F Pulse Rate 96 Respiratory Rate 18 Pulse Oximetry 97 BMI result Body Mass Index 20.3 Labs Results: 03/31/21 21:09 03/31/21 21:09 Medications Medications Current Medications Acetaminophen (Acetaminophen 325 Mg Tablet) 650 mg PO Q6H PRN PRN Reason: Headache/Pain Mild Scale (1-3) Last Admin: 04/17/21 14:52 Dose: 650 mg Documented by: Al Hydroxide/Mg Hydroxide (Magnesium Hydrox/Alum Hydrox 30 Ml Oral.Susp) 30 ml PO Q6H PRN PRN Reason: Heartburn/Nausea Amlodipine Besylate (Amlodipine Besylate 2.5 Mg Tablet) 2.5 mg PO DAILY [facility]; Protocol Last Admin: 04/21/21 11:14 Dose: Not Given Documented by: Clonidine HCl (Clonidine Hcl 0.1 Mg Tablet) 0.1 mg PO Q2H PRN; Protocol PRN Reason: SBP > 150 Last Admin: 04/05/21 21:47 Dose: 0.1 mg Documented by: Ergocalciferol (Ergocalciferol (Vitamin D2) 1,250 Mcg Capsule) 1,250 mcg PO MO [facility]INE Last Admin: 04/17/21 10:19 Dose: 1,250 mcg Documented by: Haloperidol Decanoate (Haloperidol Decanoate 50 Mg/Ml Ampul) 50 mg IM Q28D [facility] Hydrochlorothiazide (Hydrochlorothiazide 12.5 Mg Tablet) 12.5 mg PO DAILY [facility]; Protocol Last Admin: 04/21/21 11:14 Dose: Not Given Documented by: Hydroxyzine HCl (Hydroxyzine Hcl 25 Mg Tablet) 25 mg PO Q6H PRN PRN Reason: Anxiety Last Admin: 04/20/21 20:11 Dose: 25 mg Documented by: Levetiracetam (Levetiracetam 500 Mg Tablet) 500 mg PO BID [facility] Last Admin: 04/21/21 11:15 Dose: Not Given Documented by: Loperamide HCl (Loperamide Hcl 2 Mg Capsule) 2 mg PO Q6H PRN PRN Reason: Constipation Magnesium Hydroxide (Milk Of Magnesia 30 Ml Oral.Susp) 30 ml PO DAILY PRN PRN Reason: Constipation Magnesium Hydroxide (Milk Of Magnesia 30 Ml Oral.Susp) 30 ml PO DAILY PRN PRN Reason: Constipation Mirtazapine (Mirtazapine 15 Mg Tablet) 15 mg PO BEDTIME [facility] Last Admin: 04/20/21 20:11 Dose: 15 mg Documented by: Pt Own Med Odefsey 1 each PO BEDTIME [facility] Last Admin: 04/20/21 20:10 Dose: 1 each Documented by: Olanzapine (Olanzapine 10 Mg Vial) 20 mg IM BEDTIME PRN PRN Reason: refuses PO, as per Milo valdovinos Last Admin: 04/15/21 20:16 Dose: 20 mg Documented by: Olanzapine (Olanzapine Odt 10 Mg Tab.Rapdis) 20 mg TRANSLINGU BEDTIME [facility] Last Admin: 04/20/21 20:11 Dose: 20 mg Documented by: Allergies Allergies Allergy/AdvReac Type Severity Reaction Status Date / Time No Known Allergies Allergy Unverified 01/28/20 16:07 [No Known Allergies*] Assessment & Plan Assessment & Plan (1) Schizoaffective disorder, bipolar type: Status: Acute Code(s): F25.0 - Schizoaffective disorder, bipolar type (2) Dementia: Status: Acute Code(s): F03.90 - Unspecified dementia without behavioral disturbance Assessment and Plan: Pt is a 65 y.o. male who carries a dx of bipolar disorder, however sx are more in line with schizoaffective disorder bipolar type, as he presents with disorganized thought content, agitation, and paranoia. He has mild cognitive impairment r/t dementia and mental health dx. He is currently non-adherent with PO medications and is [facility] with decompensation in sx. He was aggressive on transport and required IM haldol, however since arriving to the unit he has been med compliant and pleasant. Last received haldol dec on 03/30/21. Has omar Regan's Order in chart. Seroquel and risperdal are listed as alternatives. Plan: Pt will continue on OP med regimen at this time. Changed zyprexa to bedtime. Monitor response to medications. Monitor for safety in the milieu. Discharge on stabilization. Patient seen. Chart reviewed. Discussed with team. Obtain collateral contact info?as needed An affidavit was filled since the guardian was not being able to be contacted, he has a hearing soon and our contracts attorney will be the legal guardian pretty soon. 04/19/2021 Continue plan of care I spent minutes with the patient and/or on the patient floor today, greater than?50% of which was spent counseling/coordinating care. Reason for contiued inpatient stay Substantial Risk for: inability to function, rapid decompensation and med/psych decompensation
[2021-04-21] MEDS: OLANZapine ODT 10 MG TAB.RAPDIS 20 MG TRANSLINGU (20:49)
[2021-04-21] MEDS: Mirtazapine 15 MG TABLET PO (20:49)
[2021-04-21] MEDS: levETIRAcetam 500 MG TABLET PO (20:49)
--- NOTE | 2021-04-22 09:04 | HO.PSYCHPN ---
Subjective Subjective Date of Service: 04/22/21 Reason For Visit: Delusions Subjective Notes: Section 8 Interim History: Pt has been presenting as increasingly more irritable, yelling at staff, asking them to leave his room. He prefers staff. As soon as this policy writer sales enter room, even without seeing who it is, pt screaming asking this policy writer sales to leave the room, leave me alone, I don't need your help. He declines to answer further questions. Medication Compliance: Yes Review of Systems Review of Systems unable to evaluate due to patient engagement Yes Unobtainable due to mental condition Mental Status Exam Mental Status Exam Narrative: in bed. Irritable. Not engaging in interview. No evidence of SI. Internally preoccupied. Insight and judgment poor Diagnostics Vital Signs (24Hr): Vital Signs - 24 hr 04/23/21 08:00 04/23/21 08:51 Temperature 97 F Pulse Rate 114 H 114 H Blood Pressure 131/103 H 131/103 H Pulse Oximetry 94 BMI result Body Mass Index 20.3 Labs Results: 03/31/21 21:09 03/31/21 21:09 Medications Medications Current Medications Acetaminophen (Acetaminophen 325 Mg Tablet) 650 mg PO Q6H PRN PRN Reason: Headache/Pain Mild Scale (1-3) Last Admin: 04/17/21 14:52 Dose: 650 mg Documented by: Al Hydroxide/Mg Hydroxide (Magnesium Hydrox/Alum Hydrox 30 Ml Oral.Susp) 30 ml PO Q6H PRN PRN Reason: Heartburn/Nausea Amlodipine Besylate (Amlodipine Besylate 2.5 Mg Tablet) 2.5 mg PO DAILY [facility]; Protocol Last Admin: 04/23/21 08:51 Dose: 2.5 mg Documented by: Clonidine HCl (Clonidine Hcl 0.1 Mg Tablet) 0.1 mg PO Q2H PRN; Protocol PRN Reason: SBP > 150 Last Admin: 04/05/21 21:47 Dose: 0.1 mg Documented by: Ergocalciferol (Ergocalciferol (Vitamin D2) 1,250 Mcg Capsule) 1,250 mcg PO MO [facility] Last Admin: 04/17/21 10:19 Dose: 1,250 mcg Documented by: Haloperidol Decanoate (Haloperidol Decanoate 50 Mg/Ml Ampul) 50 mg IM Q28D [facility] Hydrochlorothiazide (Hydrochlorothiazide 12.5 Mg Tablet) 12.5 mg PO DAILY [facility]; Protocol Last Admin: 04/23/21 08:51 Dose: 12.5 mg Documented by: Hydroxyzine HCl (Hydroxyzine Hcl 25 Mg Tablet) 25 mg PO Q6H PRN PRN Reason: Anxiety Last Admin: 04/23/21 08:51 Dose: 25 mg Documented by: Levetiracetam (Levetiracetam 500 Mg Tablet) 500 mg PO BID [facility] Last Admin: 04/23/21 08:50 Dose: 500 mg Documented by: Loperamide HCl (Loperamide Hcl 2 Mg Capsule) 2 mg PO Q6H PRN PRN Reason: Constipation Magnesium Hydroxide (Milk Of Magnesia 30 Ml Oral.Susp) 30 ml PO DAILY PRN PRN Reason: Constipation Magnesium Hydroxide (Milk Of Magnesia 30 Ml Oral.Susp) 30 ml PO DAILY PRN PRN Reason: Constipation Mirtazapine (Mirtazapine 15 Mg Tablet) 15 mg PO BEDTIME [facility] Last Admin: 04/22/21 22:18 Dose: Not Given Documented by: Pt Own Med Odefsey 1 each PO BEDTIME [facility] Last Admin: 04/22/21 22:18 Dose: Not Given Documented by: Olanzapine (Olanzapine 10 Mg Vial) 20 mg IM BEDTIME PRN PRN Reason: refuses PO, as per Milo valdovinos Last Admin: 04/22/21 22:17 Dose: 20 mg Documented by: Olanzapine (Olanzapine Odt 10 Mg Tab.Rapdis) 20 mg TRANSLINGU BEDTIME [facility] Last Admin: 04/22/21 22:18 Dose: Not Given Documented by: Allergies Allergies Allergy/AdvReac Type Severity Reaction Status Date / Time No Known Allergies Allergy Unverified 01/28/20 16:07 [No Known Allergies*] Assessment & Plan Assessment & Plan (1) Schizoaffective disorder, bipolar type: Status: Acute Code(s): F25.0 - Schizoaffective disorder, bipolar type (2) Dementia: Status: Acute Code(s): F03.90 - Unspecified dementia without behavioral disturbance Assessment and Plan: Pt is a 65 y.o. male who carries a dx of bipolar disorder, however sx are more in line with schizoaffective disorder bipolar type, as he presents with disorganized thought content, agitation, and paranoia. He has mild cognitive impairment r/t dementia and mental health dx. He is currently non-adherent with PO medications and is presenting [facility] with decompensation in sx. He was aggressive on transport and required IM haldol, however since arriving to the unit he has been med compliant and pleasant. Last received haldol dec on 03/30/21. Has community Jass[facility] Order in chart. Seroquel and risperdal are listed as alternatives. Plan: Pt will continue on OP med regimen at this time. Changed zyprexa to bedtime. Monitor response to medications. Monitor for safety in the milieu. Discharge on stabilization. Patient seen. Chart reviewed. Discussed with team. Obtain collateral contact info?as needed An affidavit was filled since the guardian was not being able to be contacted, he has a hearing soon and our claim attorney will be the legal guardian pretty soon. 04/19/2021 Continue plan of care 04/22: pt increasingly more irritable, talking to someone who is not there, refusing to speak with this policy writer sales, only took court mandated psychotropics but declined any other meds. I spent minutes with the patient and/or on the patient floor today, greater than?50% of which was spent counseling/coordinating care. Reason for contiued inpatient stay Substantial Risk for: inability to function
[2021-04-22 18:00] VITALS: RESP 20
[2021-04-22] MEDS: OLANZapine 10 MG VIAL 20 MG IM (22:17)
--- NOTE | 2021-04-22 22:19 | PC.NURSE ---
2209-with any interaction with patient, he becomes quite hostile and threatening. he is upset and has clenched fists. he states im not taking any more of your rat poison. in hopes of reducing pts, apprehension and agitation i had Angie Woody attempt to administer 2100 medications. unfortunately, pt took meds and orange juice and threw these items upon the floor. he is adamant that he will not take any medicines which he states are rat poison from us. pt states that he will kill us if we come near him. there is a Pedra[facility] order in place which is for zyprexa 20 mg im to be administered if pt refuses his po medication. pt is offered to take im zyprexa voluntarily but becomes quite belligerent and threatening. he again states that he will kill all of us if we come near him. in the company of three security officers pts legs are briefly held down as well as his arms and zyprexa 10 mg im is administered to each lateral thigh without incident.
[2021-04-23 08:00] VITALS: BP 131/103; PULSE 114; TEMP 36.1; O2SAT 94
[2021-04-23] MEDS: levETIRAcetam 500 MG TABLET PO (08:50)
[2021-04-23 08:51] VITALS: BP 131/103; PULSE 114
[2021-04-23] MEDS: hydrOXYzine HCL 25 MG TABLET PO (08:51)
[2021-04-23] MEDS: amLODIPine Besylate 2.5 MG TABLET PO (08:51)
[2021-04-23] MEDS: hydroCHLOROthiazide 12.5 MG TABLET PO (08:51)
--- NOTE | 2021-04-23 10:06 | HO.PSYCHPN ---
Subjective Subjective Date of Service: 04/23/21 Reason For Visit: Delusions Subjective Notes: Section 8 Interim History: Pt continues to present as increasingly more irritable, yelling at staff, asking them to leave his room. He prefers staff. Again, as soon as this press writer enter room, even without seeing who it is, pt screaming asking this press writer to leave the room, leave me alone, I don't need your help. He declines to answer further questions. Pt observed having long conversations with someone who is not there. Medication Compliance: Intermittent Review of Systems Review of Systems unable to evaluate due to patient engagement Yes Unobtainable due to mental condition Mental Status Exam Mental Status Exam Narrative: in bed. Irritable. Not engaging in interview. No evidence of SI. Internally preoccupied. Insight and judgment poor Diagnostics Vital Signs (24Hr): Vital Signs - 24 hr 04/23/21 08:00 04/23/21 08:51 Temperature 97 F Pulse Rate 114 H 114 H Blood Pressure 131/103 H 131/103 H Pulse Oximetry 94 BMI result Body Mass Index 20.3 Labs Results: 03/31/21 21:09 03/31/21 21:09 Medications Medications Current Medications Acetaminophen (Acetaminophen 325 Mg Tablet) 650 mg PO Q6H PRN PRN Reason: Headache/Pain Mild Scale (1-3) Last Admin: 04/17/21 14:52 Dose: 650 mg Documented by: Al Hydroxide/Mg Hydroxide (Magnesium Hydrox/Alum Hydrox 30 Ml Oral.Susp) 30 ml PO Q6H PRN PRN Reason: Heartburn/Nausea Amlodipine Besylate (Amlodipine Besylate 2.5 Mg Tablet) 2.5 mg PO DAILY [facility]; Protocol Last Admin: 04/23/21 08:51 Dose: 2.5 mg Documented by: Clonidine HCl (Clonidine Hcl 0.1 Mg Tablet) 0.1 mg PO Q2H PRN; Protocol PRN Reason: SBP > 150 Last Admin: 04/05/21 21:47 Dose: 0.1 mg Documented by: Ergocalciferol (Ergocalciferol (Vitamin D2) 1,250 Mcg Capsule) 1,250 mcg PO MO [facility] [place] Last Admin: 04/17/21 10:19 Dose: 1,250 mcg Documented by: Haloperidol Decanoate (Haloperidol Decanoate 50 Mg/Ml Ampul) 50 mg IM Q28D [facility] Hydrochlorothiazide (Hydrochlorothiazide 12.5 Mg Tablet) 12.5 mg PO DAILY [facility]; Protocol Last Admin: 04/23/21 08:51 Dose: 12.5 mg Documented by: Hydroxyzine HCl (Hydroxyzine Hcl 25 Mg Tablet) 25 mg PO Q6H PRN PRN Reason: Anxiety Last Admin: 04/23/21 08:51 Dose: 25 mg Documented by: Levetiracetam (Levetiracetam 500 Mg Tablet) 500 mg PO BID [facility] Last Admin: 04/23/21 08:50 Dose: 500 mg Documented by: Loperamide HCl (Loperamide Hcl 2 Mg Capsule) 2 mg PO Q6H PRN PRN Reason: Constipation Magnesium Hydroxide (Milk Of Magnesia 30 Ml Oral.Susp) 30 ml PO DAILY PRN PRN Reason: Constipation Magnesium Hydroxide (Milk Of Magnesia 30 Ml Oral.Susp) 30 ml PO DAILY PRN PRN Reason: Constipation Mirtazapine (Mirtazapine 15 Mg Tablet) 15 mg PO BEDTIME [facility] Last Admin: 04/22/21 22:18 Dose: Not Given Documented by: Pt Own Med Odefsey 1 each PO BEDTIME [facility] Last Admin: 04/22/21 22:18 Dose: Not Given Documented by: Olanzapine (Olanzapine 10 Mg Vial) 20 mg IM BEDTIME PRN PRN Reason: refuses PO, as per Milo valdovinos Last Admin: 04/22/21 22:17 Dose: 20 mg Documented by: Olanzapine (Olanzapine Odt 10 Mg Tab.Rapdis) 20 mg TRANSLINGU BEDTIME [facility] Last Admin: 04/22/21 22:18 Dose: Not Given Documented by: Allergies Allergies Allergy/AdvReac Type Severity Reaction Status Date / Time No Known Allergies Allergy Unverified 01/28/20 16:07 [No Known Allergies*] Assessment & Plan Assessment & Plan (1) Schizoaffective disorder, bipolar type: Status: Acute Code(s): F25.0 - Schizoaffective disorder, bipolar type (2) Dementia: Status: Acute Code(s): F03.90 - Unspecified dementia without behavioral disturbance Assessment and Plan: Pt is a 65 y.o. male who carries a dx of bipolar disorder, however sx are more in line with schizoaffective disorder bipolar type, as he presents with disorganized thought content, agitation, and paranoia. He has mild cognitive impairment r/t dementia and mental health dx. He is currently non-adherent with PO medications and is presenting [facility] with decompensation in sx. He was aggressive on transport and required IM haldol, however since arriving to the unit he has been med compliant and pleasant. Last received haldol dec on 03/30/21. Has community Jass[facility] Order in chart. Seroquel and risperdal are listed as alternatives. Plan: Pt will continue on OP med regimen at this time. Changed zyprexa to bedtime. Monitor response to medications. Monitor for safety in the milieu. Discharge on stabilization. Patient seen. Chart reviewed. Discussed with team. Obtain collateral contact info?as needed An affidavit was filled since the guardian was not being able to be contacted, he has a hearing soon and our workers compensation attorney will be the legal guardian pretty soon. 04/19/2021 Continue plan of care 04/22-04/23: pt increasingly more irritable, talking to someone who is not there, refusing to speak with this press writer, only took court mandated psychotropics but declined any other meds. I spent minutes with the patient and/or on the patient floor today, greater than?50% of which was spent counseling/coordinating care. Reason for contiued inpatient stay Substantial Risk for: inability to function
[2021-04-23 18:00] VITALS: RESP 16
[2021-04-23] MEDS: OLANZapine 10 MG VIAL 20 MG IM (21:33)
--- NOTE | 2021-04-24 02:34 | PC.NURSE ---
[id number] awake/rambling speech/threatening to kill staff/screaming that we are filling his body with poison/has spit po psych meds into trash can/refuses to take zyprexa 20 mg im voluntarily. security officers summoned to bedside and held legs down. zyprexa 10 mg x2 administered to left lateral thigh without incident
[2021-04-24 08:00] VITALS: BP 111/59; PULSE 106; TEMP 36.1; O2SAT 96
[2021-04-24 09:00] VITALS: BP 111/59; PULSE 106
[2021-04-24] MEDS: hydrOXYzine HCL 25 MG TABLET PO (09:00)
[2021-04-24] MEDS: amLODIPine Besylate 2.5 MG TABLET PO (09:00)
[2021-04-24] MEDS: hydroCHLOROthiazide 12.5 MG TABLET PO (09:01)
[2021-04-24] MEDS: levETIRAcetam 500 MG TABLET PO ×2 (09:01→20:22)
--- NOTE | 2021-04-24 16:10 | HO.PSYCHPN ---
Subjective Subjective Date of Service: 04/24/21 Reason For Visit: Delusions Subjective Notes: Conditional Voluntary Interim History: The nursing staff reports the patient remains isolative, mostly in bed very lowered and posturing and aggressive. He received Zyprexa IM over the weekend since he refused medication. The staff has reported that he has a poor appetite he drinks only liquids but his blood pressure is normal. On interview, the patient was disorganized and labral. We realized that his last Haldol take was more than 20 days ago. We reviewed the role years older and we will increase the Haldol Decanoate to 75 mg IM every 28 days to borrow. Mental Status Exam Mental Status Exam Patient Appearance: Unkempt Patient Orientation: Person Level of Consciousness: Awake Patient Behavior: Guarded, Suspicious, Restless and Belligerent Mood Description: Hostile Affect Description: Suspicious, Withdrawn and Hostile Patient Cognition Impaired: Yes Ability to Follow Directions: Fair Speech Pattern: Coherent Hallucinations: Auditory Delusions: Paranoid Ideation Thought Process: Racing and Illogical Thought Content: positive for Poverty of Content and positive for Loose Associations Depressive Symptoms: Increased Irritability Judgement: Poor Diagnostics Vital Signs (24Hr): Vital Signs - 24 hr 04/23/21 18:00 04/24/21 08:00 04/24/21 09:00 Temperature 97 F Pulse Rate 106 H 106 H Respiratory Rate 16 Blood Pressure 111/59 L 111/59 L Pulse Oximetry 96 BMI result Body Mass Index 20.3 Labs Results: 03/31/21 21:09 03/31/21 21:09 Medications Medications Current Medications Acetaminophen (Acetaminophen 325 Mg Tablet) 650 mg PO Q6H PRN PRN Reason: Headache/Pain Mild Scale (1-3) Last Admin: 04/17/21 14:52 Dose: 650 mg Documented by: Al Hydroxide/Mg Hydroxide (Magnesium Hydrox/Alum Hydrox 30 Ml Oral.Susp) 30 ml PO Q6H PRN PRN Reason: Heartburn/Nausea Amlodipine Besylate (Amlodipine Besylate 2.5 Mg Tablet) 2.5 mg PO DAILY [facility]; Protocol Last Admin: 04/24/21 09:00 Dose: 2.5 mg Documented by: Clonidine HCl (Clonidine Hcl 0.1 Mg Tablet) 0.1 mg PO Q2H PRN; Protocol PRN Reason: SBP > 150 Last Admin: 04/05/21 21:47 Dose: 0.1 mg Documented by: Ergocalciferol (Ergocalciferol (Vitamin D2) 1,250 Mcg Capsule) 1,250 mcg PO MO [facility] Last Admin: 04/24/21 09:11 Dose: Not Given Documented by: Haloperidol Decanoate (Haloperidol Decanoate 50 Mg/Ml Ampul) 75 mg IM Q28D [facility] Hydrochlorothiazide (Hydrochlorothiazide 12.5 Mg Tablet) 12.5 mg PO DAILY [facility]; Protocol Last Admin: 04/24/21 09:01 Dose: 12.5 mg Documented by: Hydroxyzine HCl (Hydroxyzine Hcl 25 Mg Tablet) 25 mg PO Q6H PRN PRN Reason: Anxiety Last Admin: 04/24/21 09:00 Dose: 25 mg Documented by: Levetiracetam (Levetiracetam 500 Mg Tablet) 500 mg PO BID [facility] Last Admin: 04/24/21 09:01 Dose: 500 mg Documented by: Loperamide HCl (Loperamide Hcl 2 Mg Capsule) 2 mg PO Q6H PRN PRN Reason: Constipation Magnesium Hydroxide (Milk Of Magnesia 30 Ml Oral.Susp) 30 ml PO DAILY PRN PRN Reason: Constipation Magnesium Hydroxide (Milk Of Magnesia 30 Ml Oral.Susp) 30 ml PO DAILY PRN PRN Reason: Constipation Mirtazapine (Mirtazapine 15 Mg Tablet) 15 mg PO BEDTIME [facility] Last Admin: 04/23/21 21:31 Dose: Not Given Documented by: Pt Own Med Odefsey 1 each PO BEDTIME [facility] Last Admin: 04/23/21 21:32 Dose: Not Given Documented by: Olanzapine (Olanzapine 10 Mg Vial) 20 mg IM BEDTIME PRN PRN Reason: refuses PO, as per Milo valdovinos Last Admin: 04/23/21 21:33 Dose: 20 mg Documented by: Olanzapine (Olanzapine Odt 10 Mg Tab.Rapdis) 20 mg TRANSLINGU BEDTIME [facility] Last Admin: 04/23/21 21:32 Dose: Not Given Documented by: Allergies Allergies Allergy/AdvReac Type Severity Reaction Status Date / Time No Known Allergies Allergy Unverified 01/28/20 16:07 [No Known Allergies*] Assessment & Plan Assessment & Plan (1) Schizoaffective disorder, bipolar type: Status: Acute Code(s): F25.0 - Schizoaffective disorder, bipolar type (2) Dementia: Status: Acute Code(s): F03.90 - Unspecified dementia without behavioral disturbance Assessment and Plan: Pt is a 65 y.o. male who carries a dx of bipolar disorder, however sx are more in line with schizoaffective disorder bipolar type, as he presents with disorganized thought content, agitation, and paranoia. He has mild cognitive impairment r/t dementia and mental health dx. He is currently non-adherent with PO medications and is presenting [facility] with decompensation in sx. He was aggressive on transport and required IM haldol, however since arriving to the unit he has been med compliant and pleasant. Last received haldol dec on 03/30/21. Has omar Regan's Order in chart. Seroquel and risperdal are listed as alternatives. Plan: Pt will continue on OP med regimen at this time. Changed zyprexa to bedtime. Monitor response to medications. Monitor for safety in the milieu. Discharge on stabilization. Patient seen. Chart reviewed. Discussed with team. Obtain collateral contact info?as needed An affidavit was filled since the guardian was not being able to be contacted, he has a hearing soon and our criminal defense attorney will be the legal guardian. Haldol Decanoate increased up to 75 mg IM tomorrow I spent minutes with the patient and/or on the patient floor today, greater than?50% of which was spent counseling/coordinating care. Reason for contiued inpatient stay Substantial Risk for: harm to others, inability to function, rapid decompensation and med/psych decompensation
[2021-04-24] MEDS: Acetaminophen 325 MG TABLET 650 MG PO (16:14)
[2021-04-24 20:00] VITALS: BP 114/77; PULSE 98; TEMP 36.3; O2SAT 95
[2021-04-24] MEDS: Mirtazapine 15 MG TABLET PO (20:22)
[2021-04-24] MEDS: OLANZapine ODT 10 MG TAB.RAPDIS 20 MG TRANSLINGU (20:22)
[2021-04-25 06:00] VITALS: BP 124/77; PULSE 117; RESP 18; TEMP 36.9; O2SAT 96
[2021-04-25] MEDS: hydroCHLOROthiazide 12.5 MG TABLET PO (09:28)
[2021-04-25] MEDS: levETIRAcetam 500 MG TABLET PO ×2 (09:28→21:50)
[2021-04-25 09:29] VITALS: BP 124/77; PULSE 117
[2021-04-25] MEDS: amLODIPine Besylate 2.5 MG TABLET PO (09:29)
--- NOTE | 2021-04-25 14:28 | P.PNPSI_ITS ---
Subjective Subjective Date of Service: 04/25/21 Reason For Visit: Delusions Subjective Notes: Conditional Voluntary Guardianship: Yes Interim History: The nursing staff reports that the patient has poor appetite but he drinks a lot of ensure. On interview, the patient was pleasantly confused, talkative and easily redirectable. I explained him that we will need to give him his Haldol Decanoate shot today and he cooperated Mental Status Exam Mental Status Exam Patient Appearance: Fatigued, Disheveled and Unkempt Patient Orientation: Person Level of Consciousness: Disoriented Patient Behavior: Guarded and Passive Mood Description: Labile Affect Description: Constricted Patient Cognition Impaired: Yes Ability to Follow Directions: Good Speech Pattern: Clear Hallucinations: Auditory Delusions: Paranoid Ideation Thought Process: Distracted and Evasive Thought Content: positive for Incoherent Judgement: Poor Diagnostics Vital Signs (24Hr): Vital Signs - 24 hr 04/24/21 20:00 04/25/21 06:00 04/25/21 09:29 Temperature 97.4 F 98.4 F Pulse Rate 98 117 H 117 H Respiratory Rate 18 Blood Pressure 114/77 124/77 124/77 Pulse Oximetry 95 96 BMI result Body Mass Index 20.3 Labs Results: 03/31/21 21:09 03/31/21 21:09 Medications Medications Current Medications Acetaminophen (Acetaminophen 325 Mg Tablet) 650 mg PO Q6H PRN PRN Reason: Headache/Pain Mild Scale (1-3) Last Admin: 04/24/21 16:14 Dose: 650 mg Documented by: Al Hydroxide/Mg Hydroxide (Magnesium Hydrox/Alum Hydrox 30 Ml Oral.Susp) 30 ml PO Q6H PRN PRN Reason: Heartburn/Nausea Amlodipine Besylate (Amlodipine Besylate 2.5 Mg Tablet) 2.5 mg PO DAILY [facility]; Protocol Last Admin: 04/25/21 09:29 Dose: 2.5 mg Documented by: Clonidine HCl (Clonidine Hcl 0.1 Mg Tablet) 0.1 mg PO Q2H PRN; Protocol PRN Reason: SBP > 150 Last Admin: 04/05/21 21:47 Dose: 0.1 mg Documented by: Ergocalciferol (Ergocalciferol (Vitamin D2) 1,250 Mcg Capsule) 1,250 mcg PO MO [facility] Last Admin: 04/24/21 09:11 Dose: Not Given Documented by: Haloperidol Decanoate (Haloperidol Decanoate 50 Mg/Ml Ampul) 75 mg IM Q28D [facility] Last Admin: 04/25/21 11:49 Dose: 75 mg Documented by: Hydrochlorothiazide (Hydrochlorothiazide 12.5 Mg Tablet) 12.5 mg PO DAILY [facility]; Protocol Last Admin: 04/25/21 09:28 Dose: 12.5 mg Documented by: Hydroxyzine HCl (Hydroxyzine Hcl 25 Mg Tablet) 25 mg PO Q6H PRN PRN Reason: Anxiety Last Admin: 04/24/21 09:00 Dose: 25 mg Documented by: Levetiracetam (Levetiracetam 500 Mg Tablet) 500 mg PO BID [facility] Last Admin: 04/25/21 09:28 Dose: 500 mg Documented by: Loperamide HCl (Loperamide Hcl 2 Mg Capsule) 2 mg PO Q6H PRN PRN Reason: Constipation Magnesium Hydroxide (Milk Of Magnesia 30 Ml Oral.Susp) 30 ml PO DAILY PRN PRN Reason: Constipation Magnesium Hydroxide (Milk Of Magnesia 30 Ml Oral.Susp) 30 ml PO DAILY PRN PRN Reason: Constipation Mirtazapine (Mirtazapine 15 Mg Tablet) 15 mg PO BEDTIME [facility] Last Admin: 04/24/21 20:22 Dose: 15 mg Documented by: Pt Own Med Odefsey 1 each PO BEDTIME [facility] Last Admin: 04/24/21 20:21 Dose: 1 each Documented by: Olanzapine (Olanzapine 10 Mg Vial) 20 mg IM BEDTIME PRN PRN Reason: refuses PO, as per Milo valdovinos Last Admin: 04/23/21 21:33 Dose: 20 mg Documented by: Olanzapine (Olanzapine Odt 10 Mg Tab.Rapdis) 20 mg TRANSLINGU BEDTIME [facility] Last Admin: 04/24/21 20:22 Dose: 20 mg Documented by: Allergies Allergies Allergy/AdvReac Type Severity Reaction Status Date / Time No Known Allergies Allergy Unverified 01/28/20 16:07 [No Known Allergies*] Assessment & Plan Assessment & Plan (1) Schizoaffective disorder, bipolar type: Status: Acute Code(s): F25.0 - Schizoaffective disorder, bipolar type (2) Dementia: Status: Acute Code(s): F03.90 - Unspecified dementia without behavioral disturbance Assessment and Plan: Pt is a 65 y.o. male who carries a dx of bipolar disorder, however sx are more in line with schizoaffective disorder bipolar type, as he presents with disorganized thought content, agitation, and paranoia. He has mild cognitive impairment r/t dementia and mental health dx. He is currently non-adherent with PO medications and is presenting [facility] with decompensation in sx. He was aggressive on transport and required IM haldol, however since arriving to the unit he has been med compliant and pleasant. Last received haldol dec on 03/30/21. Has omar Regan's Order in chart. Seroquel and risperdal are listed as alternatives. Plan: Pt will continue on OP med regimen at this time. Changed zyprexa to bedtime. Monitor response to medications. Monitor for safety in the milieu. Discharge on stabilization. Patient seen. Chart reviewed. Discussed with team. Obtain collateral contact info?as needed An affidavit was filled since the guardian was not being able to be contacted, he has a hearing soon and our state attorney will be the legal guardian. Haldol Decanoate increased up to 75 mg IM today I spent minutes with the patient and/or on the patient floor today, greater than?50% of which was spent counseling/coordinating care. Reason for contiued inpatient stay Substantial Risk for: inability to function, rapid decompensation and med/psych decompensation
[2021-04-25 21:45] VITALS: BP 136/94; PULSE 105; RESP 18; TEMP 36.6; O2SAT 95
[2021-04-25] MEDS: OLANZapine ODT 10 MG TAB.RAPDIS 20 MG TRANSLINGU (21:50)
[2021-04-25] MEDS: Mirtazapine 15 MG TABLET PO (21:50)
[2021-04-26 08:00] VITALS: BP 119/77; PULSE 102; RESP 14; TEMP 36.1; O2SAT 96
[2021-04-26 08:38] VITALS: BP 119/77; PULSE 102
[2021-04-26] MEDS: amLODIPine Besylate 2.5 MG TABLET PO (08:38)
[2021-04-26] MEDS: hydroCHLOROthiazide 12.5 MG TABLET PO (08:38)
[2021-04-26] MEDS: levETIRAcetam 500 MG TABLET PO ×2 (08:38→20:01)
[2021-04-26] MEDS: hydrOXYzine HCL 25 MG TABLET PO (08:39)
[2021-04-26 13:28] VITALS: BMI 20.3
--- NOTE | 2021-04-26 15:53 | HO.PSYCHPN ---
Subjective Subjective Date of Service: 04/26/21 Reason For Visit: Delusions Subjective Notes: Conditional Voluntary Interim History: The nursing staff reported that the patient remains seclusive in his room, having his meals sporadically outside. The patient is not eating he is only drinking Ensure and orange juice. On interview, the patient is confused, pleasant very disorganized. But he is less aggressive sings Haldol Decanoate was giving yesterday. Mental Status Exam Mental Status Exam Patient Appearance: Disheveled and Unkempt Patient Orientation: Person Level of Consciousness: Disoriented and Restless Patient Behavior: Guarded, Passive and Suspicious Mood Description: Depressed Affect Description: Constricted Ability to Follow Directions: Good Speech Pattern: Clear Hallucinations: Auditory Delusions: Paranoid Ideation Thought Process: Illogical, Distracted and Evasive Thought Content: positive for Perseveration, positive for Poverty of Content and positive for Loose Associations Judgement: Fair Diagnostics Vital Signs (24Hr): Vital Signs - 24 hr 04/25/21 21:45 04/26/21 08:00 04/26/21 08:38 Temperature 97.9 F 97 F Pulse Rate 105 H 102 H 102 H Respiratory Rate 18 14 Blood Pressure 136/94 H 119/77 119/77 Pulse Oximetry 95 96 BMI result Body Mass Index 20.3 Labs Results: 03/31/21 21:09 03/31/21 21:09 Medications Medications Current Medications Acetaminophen (Acetaminophen 325 Mg Tablet) 650 mg PO Q6H PRN PRN Reason: Headache/Pain Mild Scale (1-3) Last Admin: 04/24/21 16:14 Dose: 650 mg Documented by: Al Hydroxide/Mg Hydroxide (Magnesium Hydrox/Alum Hydrox 30 Ml Oral.Susp) 30 ml PO Q6H PRN PRN Reason: Heartburn/Nausea Amlodipine Besylate (Amlodipine Besylate 2.5 Mg Tablet) 2.5 mg PO DAILY [facility]; Protocol Last Admin: 04/26/21 08:38 Dose: 2.5 mg Documented by: Clonidine HCl (Clonidine Hcl 0.1 Mg Tablet) 0.1 mg PO Q2H PRN; Protocol PRN Reason: SBP > 150 Last Admin: 04/05/21 21:47 Dose: 0.1 mg Documented by: Ergocalciferol (Ergocalciferol (Vitamin D2) 1,250 Mcg Capsule) 1,250 mcg PO MO [facility] Last Admin: 04/24/21 09:11 Dose: Not Given Documented by: Haloperidol Decanoate (Haloperidol Decanoate 50 Mg/Ml Ampul) 75 mg IM Q28D [facility] Last Admin: 04/25/21 11:49 Dose: 75 mg Documented by: Hydrochlorothiazide (Hydrochlorothiazide 12.5 Mg Tablet) 12.5 mg PO DAILY [facility]; Protocol Last Admin: 04/26/21 08:38 Dose: 12.5 mg Documented by: Hydroxyzine HCl (Hydroxyzine Hcl 25 Mg Tablet) 25 mg PO Q6H PRN PRN Reason: Anxiety Last Admin: 04/26/21 08:39 Dose: 25 mg Documented by: Levetiracetam (Levetiracetam 500 Mg Tablet) 500 mg PO BID [facility] Last Admin: 04/26/21 08:38 Dose: 500 mg Documented by: Loperamide HCl (Loperamide Hcl 2 Mg Capsule) 2 mg PO Q6H PRN PRN Reason: Constipation Magnesium Hydroxide (Milk Of Magnesia 30 Ml Oral.Susp) 30 ml PO DAILY PRN PRN Reason: Constipation Magnesium Hydroxide (Milk Of Magnesia 30 Ml Oral.Susp) 30 ml PO DAILY PRN PRN Reason: Constipation Mirtazapine (Mirtazapine 15 Mg Tablet) 15 mg PO BEDTIME [facility] Last Admin: 04/25/21 21:50 Dose: 15 mg Documented by: Pt Own Med Odefsey 1 each PO BEDTIME [facility] Last Admin: 04/25/21 21:50 Dose: 1 each Documented by: Olanzapine (Olanzapine 10 Mg Vial) 20 mg IM BEDTIME PRN PRN Reason: refuses PO, as per Milo valdovinos Last Admin: 04/23/21 21:33 Dose: 20 mg Documented by: Olanzapine (Olanzapine Odt 10 Mg Tab.Rapdis) 20 mg TRANSLINGU BEDTIME [facility] Last Admin: 04/25/21 21:50 Dose: 20 mg Documented by: Allergies Allergies Allergy/AdvReac Type Severity Reaction Status Date / Time No Known Allergies Allergy Unverified 01/28/20 16:07 [No Known Allergies*] Assessment & Plan Assessment & Plan (1) Schizoaffective disorder, bipolar type: Status: Acute Code(s): F25.0 - Schizoaffective disorder, bipolar type (2) Dementia: Status: Acute Code(s): F03.90 - Unspecified dementia without behavioral disturbance Assessment and Plan: Pt is a 65 y.o. male who carries a dx of bipolar disorder, however sx are more in line with schizoaffective disorder bipolar type, as he presents with disorganized thought content, agitation, and paranoia. He has mild cognitive impairment r/t dementia and mental health dx. He is currently non-adherent with PO medications and is [facility] with decompensation in sx. He was aggressive on transport and required IM haldol, however since arriving to the unit he has been med compliant and pleasant. Last received haldol dec on 03/30/21. Has omar Regan's Order in chart. Seroquel and risperdal are listed as alternatives. Plan: Pt will continue on OP med regimen at this time. Changed zyprexa to bedtime. Monitor response to medications. Monitor for safety in the milieu. Discharge on stabilization. Patient seen. Chart reviewed. Discussed with team. Obtain collateral contact info?as needed An affidavit was filled since the guardian was not being able to be contacted, he has a hearing soon and our divorce attorney will be the legal guardian. Haldol Decanoate increased up to 75 mg IM I spent minutes with the patient and/or on the patient floor today, greater than?50% of which was spent counseling/coordinating care. Reason for contiued inpatient stay Substantial Risk for: harm to others, inability to function, rapid decompensation and med/psych decompensation
[2021-04-26] MEDS: Mirtazapine 15 MG TABLET PO (20:01)
[2021-04-26] MEDS: OLANZapine ODT 10 MG TAB.RAPDIS 20 MG TRANSLINGU (20:01)
[2021-04-27 06:00] VITALS: BP 136/89; PULSE 110; RESP 20; TEMP 36.6; O2SAT 94
[2021-04-27 09:43] VITALS: BP 136/89; PULSE 110
[2021-04-27] MEDS: amLODIPine Besylate 2.5 MG TABLET PO (09:43)
[2021-04-27] MEDS: hydroCHLOROthiazide 12.5 MG TABLET PO (09:43)
[2021-04-27] MEDS: levETIRAcetam 500 MG TABLET PO ×2 (09:44→20:08)
--- NOTE | 2021-04-27 14:52 | P.PNPSI_ITS ---
Subjective Subjective Date of Service: 04/27/21 Reason For Visit: Delusions Subjective Notes: Conditional Voluntary Interim History: The nursing staff reported that the patient remains in his room most of the time, very isolative. On interview the patient remains pleasantly confused, fully compliant with medication. The social media executive will contact the legal department to see who is then a guardian so we can work on discharge planning. Mental Status Exam Mental Status Exam Patient Appearance: Disheveled and Unkempt Patient Orientation: Person Level of Consciousness: Awake Patient Behavior: Guarded, Passive and Suspicious Mood Description: Suspicious Affect Description: Constricted Patient Cognition Impaired: Yes Ability to Follow Directions: Good Speech Pattern: Slurred Hallucinations: Auditory Delusions: Paranoid Ideation Thought Process: Incoherent and Illogical Thought Content: positive for Poverty of Content and positive for Loose Associations Judgement: Poor Diagnostics Vital Signs (24Hr): Vital Signs - 24 hr 04/27/21 06:00 04/27/21 09:43 Temperature 97.8 F Pulse Rate 110 H 110 H Respiratory Rate 20 Blood Pressure 136/89 136/89 Pulse Oximetry 94 BMI result Body Mass Index 20.3 Labs Results: 03/31/21 21:09 03/31/21 21:09 Medications Medications Current Medications Acetaminophen (Acetaminophen 325 Mg Tablet) 650 mg PO Q6H PRN PRN Reason: Headache/Pain Mild Scale (1-3) Last Admin: 04/24/21 16:14 Dose: 650 mg Documented by: Al Hydroxide/Mg Hydroxide (Magnesium Hydrox/Alum Hydrox 30 Ml Oral.Susp) 30 ml PO Q6H PRN PRN Reason: Heartburn/Nausea Amlodipine Besylate (Amlodipine Besylate 2.5 Mg Tablet) 2.5 mg PO DAILY [facility]; Protocol Last Admin: 04/27/21 09:43 Dose: 2.5 mg Documented by: Clonidine HCl (Clonidine Hcl 0.1 Mg Tablet) 0.1 mg PO Q2H PRN; Protocol PRN Reason: SBP > 150 Last Admin: 04/05/21 21:47 Dose: 0.1 mg Documented by: Ergocalciferol (Ergocalciferol (Vitamin D2) 1,250 Mcg Capsule) 1,250 mcg PO MO [facility] Last Admin: 04/24/21 09:11 Dose: Not Given Documented by: Haloperidol Decanoate (Haloperidol Decanoate 50 Mg/Ml Ampul) 75 mg IM Q28D [facility] Last Admin: 04/25/21 11:49 Dose: 75 mg Documented by: Hydrochlorothiazide (Hydrochlorothiazide 12.5 Mg Tablet) 12.5 mg PO DAILY [facility]; Protocol Last Admin: 04/27/21 09:43 Dose: 12.5 mg Documented by: Hydroxyzine HCl (Hydroxyzine Hcl 25 Mg Tablet) 25 mg PO Q6H PRN PRN Reason: Anxiety Last Admin: 04/26/21 08:39 Dose: 25 mg Documented by: Levetiracetam (Levetiracetam 500 Mg Tablet) 500 mg PO BID [facility] Last Admin: 04/27/21 09:44 Dose: 500 mg Documented by: Loperamide HCl (Loperamide Hcl 2 Mg Capsule) 2 mg PO Q6H PRN PRN Reason: Constipation Magnesium Hydroxide (Milk Of Magnesia 30 Ml Oral.Susp) 30 ml PO DAILY PRN PRN Reason: Constipation Magnesium Hydroxide (Milk Of Magnesia 30 Ml Oral.Susp) 30 ml PO DAILY PRN PRN Reason: Constipation Mirtazapine (Mirtazapine 15 Mg Tablet) 15 mg PO BEDTIME [facility] Last Admin: 04/26/21 20:01 Dose: 15 mg Documented by: Pt Own Med Odefsey 1 each PO BEDTIME [facility] Last Admin: 04/26/21 20:01 Dose: 1 each Documented by: Olanzapine (Olanzapine 10 Mg Vial) 20 mg IM BEDTIME PRN PRN Reason: refuses PO, as per Milo valdovinos Last Admin: 04/23/21 21:33 Dose: 20 mg Documented by: Olanzapine (Olanzapine Odt 10 Mg Tab.Rapdis) 20 mg TRANSLINGU BEDTIME [facility] Last Admin: 04/26/21 20:01 Dose: 20 mg Documented by: Allergies Allergies Allergy/AdvReac Type Severity Reaction Status Date / Time No Known Allergies Allergy Unverified 01/28/20 16:07 [No Known Allergies*] Assessment & Plan Assessment & Plan (1) Schizoaffective disorder, bipolar type: Status: Acute Code(s): F25.0 - Schizoaffective disorder, bipolar type (2) Dementia: Status: Acute Code(s): F03.90 - Unspecified dementia without behavioral disturbance Assessment and Plan: Pt is a 65 y.o. male who carries a dx of bipolar disorder, however sx are more in line with schizoaffective disorder bipolar type, as he presents with disorganized thought content, agitation, and paranoia. He has mild cognitive impairment r/t dementia and mental health dx. He is currently non-adherent with PO medications and is presenting [facility] with decompensation in sx. He w as aggressive on transport and required IM haldol, however since arriving to the unit he has been med compliant and pleasant. Last received haldol dec on 03/30/21. Has community Jass's Order in chart. Seroquel and risperdal are listed as alternatives. Plan: Pt will continue on OP med regimen at this time. Changed zyprexa to bedtime. Monitor response to medications. Monitor for safety in the milieu. Discharge on stabilization. Patient seen. Chart reviewed. Discussed with team. Obtain collateral contact info?as needed An affidavit was filled since the guardian was not being able to be contacted, he has a hearing soon and our criminal defense attorney will be the legal guardian. Haldol Decanoate increased up to 75 mg IM I spent minutes with the patient and/or on the patient floor today, greater than?50% of which was spent counseling/coordinating care. Reason for contiued inpatient stay Substantial Risk for: inability to function, rapid decompensation and med/psych decompensation
--- NOTE | 2021-04-27 16:26 | PC.NURSE ---
Pt. accepting of shower with much encouragement of 3 favored staff. While escorting to shower room, he became frightened once in [place] and began to intentionally lurch backward. He was steadied with assist from staff, who continued to provide encouragement and reassurances of his safety as he walked the remainder of the way. Once in shower room he initated getting under the water stream, washed himself, dried off with a towel, dressed himself in clean johnnies provided and walked briskly back to his room.
[2021-04-27] MEDS: OLANZapine ODT 10 MG TAB.RAPDIS 20 MG TRANSLINGU (20:06)
[2021-04-27] MEDS: Mirtazapine 15 MG TABLET PO (20:07)
[2021-04-27 20:16] VITALS: BP 112/71; PULSE 89; RESP 18; TEMP 37; O2SAT 93
[2021-04-28 06:00] VITALS: BP 110/71; PULSE 97; RESP 16; TEMP 36.9; O2SAT 95
[2021-04-28] MEDS: amLODIPine Besylate 2.5 MG TABLET PO (07:41)
[2021-04-28] MEDS: levETIRAcetam 500 MG TABLET PO ×2 (07:41→20:25)
[2021-04-28] MEDS: hydroCHLOROthiazide 12.5 MG TABLET PO (07:42)
--- NOTE | 2021-04-28 13:39 | MHC.CLN ---
F/U CONTINUES TO EAT POORLY BUT DRINKS ENSURE. ORDER IN PLACE FOR ENSURE TID TO PROVIDE 1050 KCAL, 39 G PROTEIN. CONTINUE TO ENCOURAGE INTAKE AT MEALS AND SNACKS.
--- NOTE | 2021-04-28 14:48 | P.PNPSI_ITS ---
Subjective Subjective Date of Service: 04/28/21 Reason For Visit: Delusions Subjective Notes: Conditional Voluntary Interim History: The patient remains mostly on his room, his pleasantly psychotic and disorganized. The social worker masters reported that this patient guar chloe has been appointed and we are with for the paperwork. On interview, the patient was tangential and disorganized but cooperative. Mental Status Exam Mental Status Exam Patient Appearance: Disheveled and Unkempt Patient Orientation: Person Level of Consciousness: Awake Patient Behavior: Guarded and Suspicious Mood Description: Labile Affect Description: Constricted Patient Cognition Impaired: Yes Ability to Follow Directions: Fair Speech Pattern: Clear Hallucinations: Auditory Delusions: Paranoid Ideation Thought Process: Evasive Thought Content: positive for Perseveration, positive for Poverty of Content, positive for Loose Associations and positive for Thought Blocking Judgement: Poor Diagnostics Vital Signs (24Hr): Vital Signs - 24 hr 04/27/21 20:16 04/28/21 06:00 Temperature 98.6 F 98.4 F Pulse Rate 89 97 Respiratory Rate 18 16 Blood Pressure 112/71 110/71 Pulse Oximetry 93 95 BMI result Body Mass Index 20.3 Labs Results: 03/31/21 21:09 03/31/21 21:09 Medications Medications Current Medications Acetaminophen (Acetaminophen 325 Mg Tablet) 650 mg PO Q6H PRN PRN Reason: Headache/Pain Mild Scale (1-3) Last Admin: 04/24/21 16:14 Dose: 650 mg Documented by: Al Hydroxide/Mg Hydroxide (Magnesium Hydrox/Alum Hydrox 30 Ml Oral.Susp) 30 ml PO Q6H PRN PRN Reason: Heartburn/Nausea Amlodipine Besylate (Amlodipine Besylate 2.5 Mg Tablet) 2.5 mg PO DAILY [facility]; Protocol Last Admin: 04/28/21 07:41 Dose: 2.5 mg Documented by: Clonidine HCl (Clonidine Hcl 0.1 Mg Tablet) 0.1 mg PO Q2H PRN; Protocol PRN Reason: SBP > 150 Last Admin: 04/05/21 21:47 Dose: 0.1 mg Documented by: Ergocalciferol (Ergocalciferol (Vitamin D2) 1,250 Mcg Capsule) 1,250 mcg PO MO [facility] Last Admin: 04/24/21 09:11 Dose: Not Given Documented by: Haloperidol Decanoate (Haloperidol Decanoate 50 Mg/Ml Ampul) 75 mg IM Q28D [facility] Last Admin: 04/25/21 11:49 Dose: 75 mg Documented by: Hydrochlorothiazide (Hydrochlorothiazide 12.5 Mg Tablet) 12.5 mg PO DAILY [facility]; Protocol Last Admin: 04/28/21 07:42 Dose: 12.5 mg Documented by: Hydroxyzine HCl (Hydroxyzine Hcl 25 Mg Tablet) 25 mg PO Q6H PRN PRN Reason: Anxiety Last Admin: 04/26/21 08:39 Dose: 25 mg Documented by: Levetiracetam (Levetiracetam 500 Mg Tablet) 500 mg PO BID [facility] Last Admin: 04/28/21 07:41 Dose: 500 mg Documented by: Loperamide HCl (Loperamide Hcl 2 Mg Capsule) 2 mg PO Q6H PRN PRN Reason: Constipation Magnesium Hydroxide (Milk Of Magnesia 30 Ml Oral.Susp) 30 ml PO DAILY PRN PRN Reason: Constipation Magnesium Hydroxide (Milk Of Magnesia 30 Ml Oral.Susp) 30 ml PO DAILY PRN PRN Reason: Constipation Mirtazapine (Mirtazapine 15 Mg Tablet) 15 mg PO BEDTIME [facility] Last Admin: 04/27/21 20:07 Dose: 15 mg Documented by: Pt Own Med Odefsey 1 each PO BEDTIME [facility] Last Admin: 04/27/21 20:09 Dose: 1 each Documented by: Olanzapine (Olanzapine 10 Mg Vial) 20 mg IM BEDTIME PRN PRN Reason: refuses PO, as per Milo valdovinos Last Admin: 04/23/21 21:33 Dose: 20 mg Documented by: Olanzapine (Olanzapine Odt 10 Mg Tab.Rapdis) 20 mg TRANSLINGU BEDTIME [facility] Last Admin: 04/27/21 20:06 Dose: 20 mg Documented by: Allergies Allergies Allergy/AdvReac Type Severity Reaction Status Date / Time No Known Allergies Allergy Unverified 01/28/20 16:07 [No Known Allergies*] Assessment & Plan Assessment & Plan (1) Schizoaffective disorder, bipolar type: Status: Acute Code(s): F25.0 - Schizoaffective disorder, bipolar type (2) Dementia: Status: Acute Code(s): F03.90 - Unspecified dementia without behavioral disturbance Assessment and Plan: Pt is a 65 y.o. male who carries a dx of bipolar disorder, however sx are more in line with schizoaffective disorder bipolar type, as he presents with disorganized thought content, agitation, and paranoia. He has mild cognitive impairment r/t dementia and mental health dx. He is currently non-adherent with PO medications and is presenting [facility] with decompensation in sx. He was aggressive on transport and required IM haldol, however since arriving to the unit he has been med compliant and pleasant. Last received haldol dec on 03/30/21. Has community Jass's Order in chart. Seroquel and risperdal are listed as alternatives. Plan: Pt will continue on OP med regimen at this time. Changed zyprexa to bedtime. Monitor response to medications. Monitor for safety in the milieu. Discharge on stabilization. Patient seen. Chart reviewed. Discussed with team. Obtain collateral contact info?as needed An affidavit was filled since the guardian was not being able to be contacted, he has a hearing soon and our criminal attorney will be the legal guardian. Haldol Decanoate increased up to 75 mg IM I spent minutes with the patient and/or on the patient floor today, greater than?50% of which was spent counseling/coordinating care. Reason for contiued inpatient stay Substantial Risk for: inability to function, rapid decompensation and med/psych decompensation
[2021-04-28 18:00] VITALS: BP 135/81; RESP 18; TEMP 37.2
[2021-04-28] MEDS: OLANZapine ODT 10 MG TAB.RAPDIS 20 MG TRANSLINGU (20:24)
[2021-04-28] MEDS: Mirtazapine 15 MG TABLET PO (20:25)
--- NOTE | 2021-04-29 08:55 | HO.PSYCHPN ---
Subjective Subjective Date of Service: 04/29/21 Reason For Visit: Delusions Subjective Notes: Conditional Voluntary Guardianship: Yes Interim History: The nursing staff reported the patient is pleasantly confused, he proposed marriage to a nurse last night. He initially refuses medication at but he took it with encouragement. On interview, the patient was delusional but pleasant and easy redirectable. Mental Status Exam Mental Status Exam Patient Appearance: Disheveled and Unkempt Patient Orientation: Person Level of Consciousness: Restless and Alert Patient Behavior: Guarded and Passive Mood Description: Suspicious and Withdrawn Affect Description: Labile Patient Cognition Impaired: Yes Ability to Follow Directions: Good Speech Pattern: Clear Hallucinations: Auditory Delusions: Paranoid Ideation Thought Process: Linear Thought Content: positive for Circumstantial Judgement: Fair Diagnostics Vital Signs (24Hr): Vital Signs - 24 hr 04/28/21 18:00 Temperature 98.9 F Respiratory Rate 18 Blood Pressure 135/81 BMI result Body Mass Index 20.3 Labs Results: 03/31/21 21:09 03/31/21 21:09 Medications Medications Current Medications Acetaminophen (Acetaminophen 325 Mg Tablet) 650 mg PO Q6H PRN PRN Reason: Headache/Pain Mild Scale (1-3) Last Admin: 04/24/21 16:14 Dose: 650 mg Documented by: Al Hydroxide/Mg Hydroxide (Magnesium Hydrox/Alum Hydrox 30 Ml Oral.Susp) 30 ml PO Q6H PRN PRN Reason: Heartburn/Nausea Amlodipine Besylate (Amlodipine Besylate 2.5 Mg Tablet) 2.5 mg PO DAILY [facility]; Protocol Last Admin: 04/28/21 07:41 Dose: 2.5 mg Documented by: Clonidine HCl (Clonidine Hcl 0.1 Mg Tablet) 0.1 mg PO Q2H PRN; Protocol PRN Reason: SBP > 150 Last Admin: 04/05/21 21:47 Dose: 0.1 mg Documented by: Ergocalciferol (Ergocalciferol (Vitamin D2) 1,250 Mcg Capsule) 1,250 mcg PO MO [facility] Last Admin: 04/24/21 09:11 Dose: Not Given Documented by: Haloperidol Decanoate (Haloperidol Decanoate 50 Mg/Ml Ampul) 75 mg IM Q28D [facility] Last Admin: 04/25/21 11:49 Dose: 75 mg Documented by: Hydrochlorothiazide (Hydrochlorothiazide 12.5 Mg Tablet) 12.5 mg PO DAILY [facility]; Protocol Last Admin: 04/28/21 07:42 Dose: 12.5 mg Documented by: Hydroxyzine HCl (Hydroxyzine Hcl 25 Mg Tablet) 25 mg PO Q6H PRN PRN Reason: Anxiety Last Admin: 04/26/21 08:39 Dose: 25 mg Documented by: Levetiracetam (Levetiracetam 500 Mg Tablet) 500 mg PO BID [facility] Last Admin: 04/28/21 20:25 Dose: 500 mg Documented by: Loperamide HCl (Loperamide Hcl 2 Mg Capsule) 2 mg PO Q6H PRN PRN Reason: Constipation Magnesium Hydroxide (Milk Of Magnesia 30 Ml Oral.Susp) 30 ml PO DAILY PRN PRN Reason: Constipation Magnesium Hydroxide (Milk Of Magnesia 30 Ml Oral.Susp) 30 ml PO DAILY PRN PRN Reason: Constipation Mirtazapine (Mirtazapine 15 Mg Tablet) 15 mg PO BEDTIME [facility] Last Admin: 04/28/21 20:25 Dose: 15 mg Documented by: Pt Own Med Odefsey 1 each PO BEDTIME [facility] Last Admin: 04/28/21 20:31 Dose: 1 each Documented by: Olanzapine (Olanzapine 10 Mg Vial) 20 mg IM BEDTIME PRN PRN Reason: refuses PO, as per Milo valdovinos Last Admin: 04/23/21 21:33 Dose: 20 mg Documented by: Olanzapine (Olanzapine Odt 10 Mg Tab.Rapdis) 20 mg TRANSLINGU BEDTIME [facility] Last Admin: 04/28/21 20:24 Dose: 20 mg Documented by: Allergies Allergies Allergy/AdvReac Type Severity Reaction Status Date / Time No Known Allergies Allergy Unverified 01/28/20 16:07 [No Known Allergies*] Assessment & Plan Assessment & Plan (1) Schizoaffective disorder, bipolar type: Status: Acute Code(s): F25.0 - Schizoaffective disorder, bipolar type (2) Dementia: Status: Acute Code(s): F03.90 - Unspecified dementia without behavioral disturbance Assessment and Plan: Pt is a 65 y.o. male who carries a dx of bipolar disorder, however sx are more in line with schizoaffective disorder bipolar type, as he presents with disorganized thought content, agitation, and paranoia. He has mild cognitive impairment r/t dementia and mental health dx. He is currently non-adherent with PO medications and is presenting [facility] with decompensation in sx. He was aggressive on transport and required IM haldol, however since arriving to the unit he has been med compliant and pleasant. Last received haldol dec on 03/30/21. Has community Jass's Order in chart. Seroquel and risperdal are listed as alternatives. Plan: Pt will continue on OP med regimen at this time. Changed zyprexa to bedtime. Monitor response to medications. Monitor for safety in the milieu. Discharge on stabilization. Patient seen. Chart reviewed. Discussed with team. Obtain collateral contact info?as needed An affidavit was filled since the guardian was not being able to be contacted, he has a hearing soon and our city attorney will be the legal guardian. Haldol Decanoate increased up to 75 mg IM I spent minutes with the patient and/or on the patient floor today, greater than?50% of which was spent counseling/coordinating care. Reason for contiued inpatient stay Substantial Risk for: inability to function, rapid decompensation and med/psych decompensation
[2021-04-29] MEDS: hydroCHLOROthiazide 12.5 MG TABLET PO (08:59)
[2021-04-29] MEDS: amLODIPine Besylate 2.5 MG TABLET PO (08:59)
[2021-04-29] MEDS: levETIRAcetam 500 MG TABLET PO ×2 (08:59→19:32)
[2021-04-29] MEDS: OLANZapine ODT 10 MG TAB.RAPDIS 20 MG TRANSLINGU (19:32)
[2021-04-29] MEDS: Mirtazapine 15 MG TABLET PO (19:32)
[2021-04-29 19:40] VITALS: BP 146/87; RESP 18; TEMP 36.6
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
[2021-04-30] MEDS: hydroCHLOROthiazide 12.5 MG TABLET PO (12:49)
[2021-04-30 12:50] VITALS: BP 146/78; PULSE 106
[2021-04-30] MEDS: levETIRAcetam 500 MG TABLET PO ×2 (12:50→20:48)
[2021-04-30] MEDS: amLODIPine Besylate 2.5 MG TABLET PO (12:50)
[2021-04-30 13:04] VITALS: BP 146/78; PULSE 106; RESP 16; TEMP 36.7; O2SAT 94
[2021-04-30] MEDS: Mirtazapine 15 MG TABLET PO (20:48)
[2021-04-30] MEDS: OLANZapine ODT 10 MG TAB.RAPDIS 20 MG TRANSLINGU (20:48)
[2021-04-30 21:42] VITALS: BP 118/84; PULSE 100; RESP 18; TEMP 36.4; O2SAT 95
[2021-05-01] MEDS: Milk of Magnesia 30 ML ORAL.SUSP PO (06:49)
[2021-05-01 08:00] VITALS: BP 112/74; PULSE 111; RESP 16; TEMP 36.9; O2SAT 97
[2021-05-01 08:35] VITALS: BP 112/74; PULSE 111
[2021-05-01] MEDS: hydroCHLOROthiazide 12.5 MG TABLET PO (08:35)
[2021-05-01] MEDS: amLODIPine Besylate 2.5 MG TABLET PO (08:35)
[2021-05-01] MEDS: hydrOXYzine HCL 25 MG TABLET PO (08:35)
[2021-05-01] MEDS: levETIRAcetam 500 MG TABLET PO (08:36)
--- NOTE | 2021-05-01 11:57 | P.PNPSI_ITS ---
Subjective Subjective Date of Service: 05/01/21 Reason For Visit: Delusions Subjective Notes: Conditional Voluntary Interim History: Patient mostly isolated staying in his room mostly digress is irrelevant speech. He has been taking his antipsychotic medication. Patient quite clear in not wanting to return to [facility] and [place] at times bizarre sexually and pulse of disinhibited often sedated Attending Groups: No Mental Status Exam Mental Status Exam Patient Appearance: Disheveled and Unkempt Patient Orientation: Person Level of Consciousness: Awake Patient Behavior: Guarded, Passive and Suspicious Mood Description: Suspicious, Withdrawn, Labile and Expansive Affect Description: Labile Patient Cognition Impaired: Yes Ability to Follow Directions: Fair Speech Pattern: Clear Hallucinations: Auditory Delusions: Paranoid Ideation Thought Process: Illogical and Slowed Thinking Thought Content: positive for Perseveration, positive for Poverty of Content, positive for Preoccupation, positive for Loose Associations, negative for Suicidal Ideation or negative for Homicidal Ideation Judgement: Poor Diagnostics Vital Signs (24Hr): Vital Signs - 24 hr 04/30/21 12:50 04/30/21 13:04 04/30/21 21:42 Temperature 98.1 F 97.6 F Pulse Rate 106 H 106 H 100 Respiratory Rate 16 18 Blood Pressure 146/78 H 146/78 H 118/84 Pulse Oximetry 94 95 05/01/21 08:00 05/01/21 08:35 Temperature 98.4 F Pulse Rate 111 H 111 H Respiratory Rate 16 Blood Pressure 112/74 112/74 Pulse Oximetry 97 BMI result Body Mass Index 20.3 Labs Results: 03/31/21 21:09 03/31/21 21:09 Medications Medications Current Medications Acetaminophen (Acetaminophen 325 Mg Tablet) 650 mg PO Q6H PRN PRN Reason: Headache/Pain Mild Scale (1-3) Last Admin: 04/24/21 16:14 Dose: 650 mg Documented by: Al Hydroxide/Mg Hydroxide (Magnesium Hydrox/Alum Hydrox 30 Ml Oral.Susp) 30 ml PO Q6H PRN PRN Reason: Heartburn/Nausea Amlodipine Besylate (Amlodipine Besylate 2.5 Mg Tablet) 2.5 mg PO DAILY [facility]; Protocol Last Admin: 05/01/21 08:35 Dose: 2.5 mg Documented by: Clonidine HCl (Clonidine Hcl 0.1 Mg Tablet) 0.1 mg PO Q2H PRN; Protocol PRN Reason: SBP > 150 Last Admin: 04/05/21 21:47 Dose: 0.1 mg Documented by: Ergocalciferol (Ergocalciferol (Vitamin D2) 1,250 Mcg Capsule) 1,250 mcg PO MO [facility] Last Admin: 05/01/21 10:16 Dose: Not Given Documented by: Haloperidol Decanoate (Haloperidol Decanoate 50 Mg/Ml Ampul) 75 mg IM Q28D [facility] Last Admin: 04/25/21 11:49 Dose: 75 mg Documented by: Hydrochlorothiazide (Hydrochlorothiazide 12.5 Mg Tablet) 12.5 mg PO DAILY [facility]; Protocol Last Admin: 05/01/21 08:35 Dose: 12.5 mg Documented by: Hydroxyzine HCl (Hydroxyzine Hcl 25 Mg Tablet) 25 mg PO Q6H PRN PRN Reason: Anxiety Last Admin: 05/01/21 08:35 Dose: 25 mg Documented by: Levetiracetam (Levetiracetam 500 Mg Tablet) 500 mg PO BID [facility] Last Admin: 05/01/21 08:36 Dose: 500 mg Documented by: Loperamide HCl (Loperamide Hcl 2 Mg Capsule) 2 mg PO Q6H PRN PRN Reason: Constipation Magnesium Hydroxide (Milk Of Magnesia 30 Ml Oral.Susp) 30 ml PO DAILY PRN PRN Reason: Constipation Last Admin: 05/01/21 06:49 Dose: 30 ml Documented by: Magnesium Hydroxide (Milk Of Magnesia 30 Ml Oral.Susp) 30 ml PO DAILY PRN PRN Reason: Constipation Mirtazapine (Mirtazapine 15 Mg Tablet) 15 mg PO BEDTIME [facility] Last Admin: 04/30/21 20:48 Dose: 15 mg Documented by: Pt Own Med Odefsey 1 each PO BEDTIME [facility] Last Admin: 04/30/21 20:48 Dose: 1 each Documented by: Olanzapine (Olanzapine 10 Mg Vial) 20 mg IM BEDTIME PRN PRN Reason: refuses PO, as per Milo valdovinos Last Admin: 04/23/21 21:33 Dose: 20 mg Documented by: Olanzapine (Olanzapine Odt 10 Mg Tab.Rapdis) 20 mg TRANSLINGU BEDTIME [facility] Last Admin: 04/30/21 20:48 Dose: 20 mg Documented by: Allergies Allergies Allergy/AdvReac Type Severity Reaction Status Date / Time No Known Allergies Allergy Unverified 01/28/20 16:07 [No Known Allergies*] Assessment & Plan Assessment & Plan (1) Schizoaffective disorder, bipolar type: Status: Acute Code(s): F25.0 - Schizoaffective disorder, bipolar type (2) Dementia: Status: Acute Code(s): F03.90 - Unspecified dementia without behavioral disturbance Assessment and Plan: Pt is a 65 y.o. male who carries a dx of bipolar disorder, however sx are more in line with schizoaffective disorder bipolar type, as he presents with disorganized thought content, agitation, and paranoia. He has mild cognitive impairment r/t dementia and mental health dx. He is currently non-adherent with PO medications and is presenting from [facility] with decompensation in sx. He was aggressive on transport and required IM haldol, however since arriving to the unit he has been med compliant and pleasant. Last received haldol dec on 03/30/21. Has [facility] Reg[facility]'s Order in chart. Seroquel and risperdal are listed as alternatives. Plan: Pt will continue on OP med regimen at this time. Changed zyprexa to bedtime. Monitor response to medications. Monitor for safety in the milieu. Discharge on stabilization. Patient seen. Chart reviewed. Discussed with team. Obtain collateral contact info?as needed An affidavit was filled since the guardian was not being able to be contacted, he has a hearing soon and our commercial litigation attorney will be the legal guardian. Haldol Decanoate increased up to 75 mg IM Continue Haldol and olanzapine Keppra Discharge planning I spent minutes with the patient and/or on the patient floor today, greater than?50% of which was spent counseling/coordinating care. Reason for contiued inpatient stay Substantial Risk for: harm to others, inability to function and rapid decompensation
--- NOTE | 2021-05-01 14:53 | MHC.CLN ---
F/U NO NEW WEIGHTS OR LABS. CONTINUE REGULAR DIET WITH ENSURE TID (1050 KCAL, 39 G PROTEIN). PROVIDE SUPPLEMENT DESIRED BY PATIENT IF POOR PO.
[2021-05-01] MEDS: OLANZapine 10 MG VIAL 20 MG IM (23:17)
--- NOTE | 2021-05-02 11:18 | HO.PSYCHPN ---
Subjective Subjective Date of Service: 05/02/21 Reason For Visit: Delusions Interim History: Pt in room, minimal engagement in conversation. Pt presents as guarded, asking this television writer to leave. Pt declined covid test once again without explanation. Pt has been taking olanzapine 20mg po qhs. on haldol dec 75mg Im qmonthly- may consider increasing haldol. Medication Compliance: Yes Side effects from medications: No Review of Systems Review of Systems unable to evaluate due to patient engagement Yes Unobtainable due to mental condition Mental Status Exam Mental Status Exam Narrative: in bed. Irritable. Not engaging in interview. No evidence of SI. Internally preoccupied. Insight and judgment poor Diagnostics Vital Signs (24Hr): BMI result Body Mass Index 20.3 Labs Results: 03/31/21 21:09 03/31/21 21:09 Medications Medications Current Medications Acetaminophen (Acetaminophen 325 Mg Tablet) 650 mg PO Q6H PRN PRN Reason: Headache/Pain Mild Scale (1-3) Last Admin: 04/24/21 16:14 Dose: 650 mg Documented by: Al Hydroxide/Mg Hydroxide (Magnesium Hydrox/Alum Hydrox 30 Ml Oral.Susp) 30 ml PO Q6H PRN PRN Reason: Heartburn/Nausea Amlodipine Besylate (Amlodipine Besylate 2.5 Mg Tablet) 2.5 mg PO DAILY [facility]; Protocol Last Admin: 05/01/21 08:35 Dose: 2.5 mg Documented by: Clonidine HCl (Clonidine Hcl 0.1 Mg Tablet) 0.1 mg PO Q2H PRN; Protocol PRN Reason: SBP > 150 Last Admin: 04/05/21 21:47 Dose: 0.1 mg Documented by: Ergocalciferol (Ergocalciferol (Vitamin D2) 1,250 Mcg Capsule) 1,250 mcg PO MO [facility] Last Admin: 05/01/21 10:16 Dose: Not Given Documented by: Haloperidol Decanoate (Haloperidol Decanoate 50 Mg/Ml Ampul) 75 mg IM Q28D [facility] Last Admin: 04/25/21 11:49 Dose: 75 mg Documented by: Hydrochlorothiazide (Hydrochlorothiazide 12.5 Mg Tablet) 12.5 mg PO DAILY [facility]; Protocol Last Admin: 05/01/21 08:35 Dose: 12.5 mg Documented by: Hydroxyzine HCl (Hydroxyzine Hcl 25 Mg Tablet) 25 mg PO Q6H PRN PRN Reason: Anxiety Last Admin: 05/01/21 08:35 Dose: 25 mg Documented by: Levetiracetam (Levetiracetam 500 Mg Tablet) 500 mg PO BID [facility] Last Admin: 05/01/21 23:14 Dose: Not Given Documented by: Loperamide HCl (Loperamide Hcl 2 Mg Capsule) 2 mg PO Q6H PRN PRN Reason: Constipation Magnesium Hydroxide (Milk Of Magnesia 30 Ml Oral.Susp) 30 ml PO DAILY PRN PRN Reason: Constipation Last Admin: 05/01/21 06:49 Dose: 30 ml Documented by: Magnesium Hydroxide (Milk Of Magnesia 30 Ml Oral.Susp) 30 ml PO DAILY PRN PRN Reason: Constipation Mirtazapine (Mirtazapine 15 Mg Tablet) 15 mg PO BEDTIME [facility] Last Admin: 05/01/21 23:14 Dose: Not Given Documented by: Pt Own Med Odefsey 1 each PO BEDTIME [facility] Last Admin: 05/01/21 23:15 Dose: Not Given Documented by: Olanzapine (Olanzapine 10 Mg Vial) 20 mg IM BEDTIME PRN PRN Reason: refuses PO, as per Milo valdovinos Last Admin: 05/01/21 23:17 Dose: 20 mg Documented by: Olanzapine (Olanzapine Odt 10 Mg Tab.Rapdis) 30 mg TRANSLINGU BEDTIME [facility] Allergies Allergies Allergy/AdvReac Type Severity Reaction Status Date / Time No Known Allergies Allergy Unverified 01/28/20 16:07 [No Known Allergies*] Assessment & Plan Assessment & Plan (1) Schizoaffective disorder, bipolar type: Status: Acute Code(s): F25.0 - Schizoaffective disorder, bipolar type (2) Dementia: Status: Acute Code(s): F03.90 - Unspecified dementia without behavioral disturbance Assessment and Plan: Pt is a 65 y.o. male who carries a dx of bipolar disorder, however sx are more in line with schizoaffective disorder bipolar type, as he presents with disorganized thought content, agitation, and paranoia. He has mild cognitive impairment r/t dementia and mental health dx. He is currently non-adherent with PO medications and is presenting from [facility] with decompensation in sx. He was aggressive on transport and required IM haldol, however since arriving to the unit he has been med compliant and pleasant. Last received haldol dec on 03/30/21. Has [facility] Reg[facility]'s Order in chart. Seroquel and risperdal are listed as alternatives. Plan: Pt will continue on OP med regimen at this time. Changed zyprexa to bedtime. Monitor response to medications. Monitor for safety in the milieu. Discharge on stabilization. Patient seen. Chart reviewed. Discussed with team. Obtain collateral contact info?as needed An affidavit was filled since the guardian was not being able to be contacted, he has a hearing soon and our terrazzo finisher will be the legal guardian. Haldol Decanoate increased up to 75 mg IM Continue Haldol and olanzapine [facility] Discharge planning 05/02- increased olanzapine to 30mg po qhs. consider increasing haldol dec and supplement with oral until steady level reach.continue to present as paranoid, guarded, irritable. intermittent periods of agitation and aggression. pending covid test. I spent minutes with the patient and/or on the patient floor today, greater than?50% of which was spent counseling/coordinating care. Reason for contiued inpatient stay Substantial Risk for: inability to function
[2021-05-02 14:18] LABS: COVID-19 Test Invalid (Negative); IDNOW Serial# 9DD0AD1C
[2021-05-02 16:26] LABS: Influenza A PCR NEGATIVE (Negative); Influenza B PCR NEGATIVE (Negative); Resp Syncy Virus RNA Qual PCR NEGATIVE (Negative); SARS COV2 PCR INHOUSE NEGATIVE (Negative)
[2021-05-02] MEDS: levETIRAcetam 500 MG TABLET PO (20:00)
[2021-05-02] MEDS: Mirtazapine 15 MG TABLET PO (20:00)
[2021-05-02] MEDS: OLANZapine ODT 10 MG TAB.RAPDIS 30 MG TRANSLINGU (20:01)
[2021-05-02 20:57] VITALS: BP 131/78; PULSE 104; RESP 18; TEMP 36.6; O2SAT 94
[2021-05-03 07:30] VITALS: BP 112/80; PULSE 106; RESP 18; TEMP 36.7; O2SAT 94
[2021-05-03] MEDS: hydroCHLOROthiazide 12.5 MG TABLET PO (08:33)
[2021-05-03] MEDS: amLODIPine Besylate 2.5 MG TABLET PO (08:33)
[2021-05-03] MEDS: levETIRAcetam 500 MG TABLET PO ×2 (08:33→19:58)
--- NOTE | 2021-05-03 10:10 | P.PNPSI_ITS ---
Subjective Subjective Date of Service: 05/03/21 Reason For Visit: Delusions Subjective Notes: Pedraza Order and Conditional Voluntary Interim History: Pt lying down in room, laughing and talking to himself. Most conversation is intelligible, pt asking this feature writer to hold his hand for unclear reasons. Pt continued to laugh most of interview responding to internal stimuli. Pt denied SI/HI. Less irritable, but floridly psychotic. Medication Compliance: Yes Side effects from medications: No Attending Groups: No Review of Systems Review of Systems unable to evaluate due to patient engagement Yes Unobtainable due to mental condition Mental Status Exam Mental Status Exam Narrative: Appearance: disheveled, wearing hospital gown, uncovered abdomen, poor hygiene in NAD Behavior:overly friendly/familiar with feature writer psychomotor:no agitation but pt laughing Speech:mumble, mostly non intelligible. spontaneous unclear if pt understands most questions ask Thought process:disorganized Thought content:mostly laughing for unclear reasons Mood: good Affect: laughing SI:none HI:none VH/AH:internally preoccupied Delusions:less paranoid Insight/judgment:impaired x 2 Memory/cog: alert, impaired secondary to psychiatric symptoms. Diagnostics Vital Signs (24Hr): Vital Signs - 24 hr 05/02/21 20:57 05/03/21 07:30 Temperature 97.8 F 98.1 F Pulse Rate 104 H 106 H Respiratory Rate 18 18 Blood Pressure 131/78 112/80 Pulse Oximetry 94 94 BMI result Body Mass Index 20.3 Labs Results: 03/31/21 21:09 03/31/21 21:09 Labs: Laboratory Results - last 48 hr 05/02/21 05/02/21 11:50 15:30 COVID-19 ([facility]) Invalid COVID-19 Clin Com See Note Influenza Type A (PCR) NEGATIVE Influenza Type B (PCR) NEGATIVE RSV RNA Qual (PCR) NEGATIVE SARS-CoV-2 RNA (RT-PCR) NEGATIVE Medications Medications Current Medications Acetaminophen (Acetaminophen 325 Mg Tablet) 650 mg PO Q6H PRN PRN Reason: Headache/Pain Mild Scale (1-3) Last Admin: 04/24/21 16:14 Dose: 650 mg Documented by: Al Hydroxide/Mg Hydroxide (Magnesium Hydrox/Alum Hydrox 30 Ml Oral.Susp) 30 ml PO Q6H PRN PRN Reason: Heartburn/Nausea Amlodipine Besylate (Amlodipine Besylate 2.5 Mg Tablet) 2.5 mg PO DAILY [facility]; Protocol Last Admin: 05/03/21 08:33 Dose: 2.5 mg Documented by: Clonidine HCl (Clonidine Hcl 0.1 Mg Tablet) 0.1 mg PO Q2H PRN; Protocol PRN Reason: SBP > 150 Last Admin: 04/05/21 21:47 Dose: 0.1 mg Documented by: Ergocalciferol (Ergocalciferol (Vitamin D2) 1,250 Mcg Capsule) 1,250 mcg PO MO [facility] Last Admin: 05/01/21 10:16 Dose: Not Given Documented by: Haloperidol Decanoate (Haloperidol Decanoate 50 Mg/Ml Ampul) 75 mg IM Q28D [facility] Last Admin: 04/25/21 11:49 Dose: 75 mg Documented by: Hydrochlorothiazide (Hydrochlorothiazide 12.5 Mg Tablet) 12.5 mg PO DAILY [facility]; Protocol Last Admin: 05/03/21 08:33 Dose: 12.5 mg Documented by: Hydroxyzine HCl (Hydroxyzine Hcl 25 Mg Tablet) 25 mg PO Q6H PRN PRN Reason: Anxiety Last Admin: 05/01/21 08:35 Dose: 25 mg Documented by: Levetiracetam (Levetiracetam 500 Mg Tablet) 500 mg PO BID [facility] Last Admin: 05/03/21 08:33 Dose: 500 mg Documented by: Loperamide HCl (Loperamide Hcl 2 Mg Capsule) 2 mg PO Q6H PRN PRN Reason: Constipation Magnesium Hydroxide (Milk Of Magnesia 30 Ml Oral.Susp) 30 ml PO DAILY PRN PRN Reason: Constipation Last Admin: 05/01/21 06:49 Dose: 30 ml Documented by: Magnesium Hydroxide (Milk Of Magnesia 30 Ml Oral.Susp) 30 ml PO DAILY PRN PRN Reason: Constipation Mirtazapine (Mirtazapine 15 Mg Tablet) 15 mg PO BEDTIME [facility] Last Admin: 05/02/21 20:00 Dose: 15 mg Documented by: Pt Own Med Mauriliosey 1 each PO BEDTIME [facility] Last Admin: 05/02/21 19:59 Dose: 1 each Documented by: Olanzapine (Olanzapine 10 Mg Vial) 20 mg IM BEDTIME PRN PRN Reason: refuses PO, as per Milo valdovinos Last Admin: 05/01/21 23:17 Dose: 20 mg Documented by: Olanzapine (Olanzapine Odt 10 Mg Tab.Rapdis) 30 mg TRANSLINGU BEDTIME [facility] Last Admin: 05/02/21 20:01 Dose: 30 mg Documented by: Allergies Allergies Allergy/AdvReac Type Severity Reaction Status Date / Time No Known Allergies Allergy Unverified 01/28/20 16:07 [No Known Allergies*] Assessment & Plan Assessment & Plan (1) Schizoaffective disorder, bipolar type: Status: Acute Code(s): F25.0 - Schizoaffective disorder, bipolar type (2) Dementia: Status: Acute Code(s): F03.90 - Unspecified dementia without behavioral disturbance Assessment and Plan: Pt is a 65 y.o. male who carries a dx of bipolar disorder, however sx are more in line with schizoaffective disorder bipolar type, as he presents with disorganized thought content, agitation, and paranoia. He has mild cognitive impairment r/t dementia and mental health dx. He is currently non-adherent with PO medications and is presenting from [facility] with decompensation in sx. He was aggressive on transport and required IM haldol, however since arriving to the unit he has been med compliant and pleasant. Last received haldol dec on 03/30/21. Has [facility]'s Order in chart. Seroquel and risperdal are listed as alternatives. Plan: Pt will continue on OP med regimen at this time. Changed zyprexa to bedtime. Monitor response to medications. Monitor for safety in the milieu. Discharge on stabilization. Patient seen. Chart reviewed. Discussed with team. Obtain collateral contact info?as needed An affidavit was filled since the guardian was not being able to be contacted, he has a hearing soon and our gis coordinator will be the legal guardian. Haldol Decanoate increased up to 75 mg IM Continue Haldol and olanzapine Keppra Discharge planning 05/02- increased olanzapine to 30mg po qhs. consider increasing haldol dec and supplement with oral until steady level reached.continue to present as paranoid, guarded, irritable. intermittent periods of agitation and aggression. pending covid test. 05/03- covid test neg. pt in room laughing and talking to himself, speech mostly innentelligible. Less irritable but floridly psychotic. low dose haldol added at night 5mg po qhs- continue haldol dec but consider increasing monthly dose given pt presents as very psychotic. I spent minutes with the patient and/or on the patient floor today, greater than?50% of which was spent counseling/coordinating care. Reason for contiued inpatient stay Substantial Risk for: inability to function
[2021-05-03 18:00] VITALS: BP 93/66; PULSE 101; RESP 18; TEMP 37.6; O2SAT 96
[2021-05-03] MEDS: OLANZapine ODT 10 MG TAB.RAPDIS 30 MG TRANSLINGU (19:59)
[2021-05-03] MEDS: Mirtazapine 15 MG TABLET PO (19:59)
[2021-05-03] MEDS: Acetaminophen 325 MG TABLET 650 MG PO (20:04)
[2021-05-03 22:18] VITALS: BP 105/63; PULSE 109; RESP 16; TEMP 36.8; O2SAT 94
[2021-05-04 08:00] VITALS: BP 154/69; PULSE 108; TEMP 36.3; O2SAT 95
[2021-05-04] MEDS: hydrOXYzine HCL 25 MG TABLET PO (08:43)
[2021-05-04] MEDS: hydroCHLOROthiazide 12.5 MG TABLET PO (08:43)
[2021-05-04] MEDS: levETIRAcetam 500 MG TABLET PO ×2 (08:43→21:44)
[2021-05-04 08:44] VITALS: BP 154/69; PULSE 108
[2021-05-04] MEDS: amLODIPine Besylate 2.5 MG TABLET PO (08:44)
--- NOTE | 2021-05-04 11:43 | HO.PSYCHPN ---
Subjective Subjective Date of Service: 05/04/21 Reason For Visit: Delusions Subjective Notes: Conditional Voluntary Guardianship: Yes Interim History: Pt in his room, much more pleasant with most staff. He greets this appeals writer which he had not done uin the past, usually he would yelled at this appeals writer asking to leave the room. Pt reports he is doing good. Less self dialoguing. Pt thought process still disorganized and with loose associations. Pt states he has been in hospital for million years. asking this appeals writer to stay with him and talk. He denies SI/HI. He continues to present as internally preoccupied but less suspicious. Medication Compliance: Yes Side effects from medications: No Review of Systems Review of Systems unable to evaluate due to patient engagement Yes Unobtainable due to mental condition Mental Status Exam Mental Status Exam Narrative: Appearance: disheveled, wearing hospital gown, uncovered abdomen, poor hygiene in NAD Behavior:overly friendly/familiar with appeals writer psychomotor:no agitation but pt laughing Speech:mumble, mostly non intelligible. spontaneous unclear if pt understands most questions ask Thought process:disorganized Thought content:mostly laughing for unclear reasons Mood: good Affect: laughing SI:none HI:none VH/AH:internally preoccupied Delusions:less paranoid Insight/judgment:impaired x 2 Memory/cog: alert, impaired secondary to psychiatric symptoms. Diagnostics Vital Signs (24Hr): Vital Signs - 24 hr 05/03/21 18:00 05/03/21 22:18 05/04/21 08:00 Temperature 99.6 F 98.2 F 97.4 F Pulse Rate 101 H 109 H 108 H Respiratory Rate 18 16 Blood Pressure 93/66 105/63 154/69 H Pulse Oximetry 96 94 95 05/04/21 08:44 Temperature Pulse Rate 108 H Respiratory Rate Blood Pressure 154/69 H Pulse Oximetry BMI result Body Mass Index 20.3 Labs Results: 03/31/21 21:09 03/31/21 21:09 Labs: Laboratory Results - last 48 hr 05/02/21 05/02/21 11:50 15:30 COVID-19 ([facility]) Invalid COVID-19 Clin Com See Note Influenza Type A (PCR) NEGATIVE Influenza Type B (PCR) NEGATIVE RSV RNA Qual (PCR) NEGATIVE SARS-CoV-2 RNA (RT-PCR) NEGATIVE Medications Medications Current Medications Acetaminophen (Acetaminophen 325 Mg Tablet) 650 mg PO Q6H PRN PRN Reason: Headache/Pain Mild Scale (1-3) Last Admin: 05/03/21 20:04 Dose: 650 mg Documented by: Al Hydroxide/Mg Hydroxide (Magnesium Hydrox/Alum Hydrox 30 Ml Oral.Susp) 30 ml PO Q6H PRN PRN Reason: Heartburn/Nausea Amlodipine Besylate (Amlodipine Besylate 2.5 Mg Tablet) 2.5 mg PO DAILY [facility]; Protocol Last Admin: 05/04/21 08:44 Dose: 2.5 mg Documented by: Clonidine HCl (Clonidine Hcl 0.1 Mg Tablet) 0.1 mg PO Q2H PRN; Protocol PRN Reason: SBP > 150 Last Admin: 04/05/21 21:47 Dose: 0.1 mg Documented by: Ergocalciferol (Ergocalciferol (Vitamin D2) 1,250 Mcg Capsule) 1,250 mcg PO MO [facility] Last Admin: 05/01/21 10:16 Dose: Not Given Documented by: Haloperidol (Haloperidol 5 Mg Tablet) 5 mg PO BEDTIME [facility] Haloperidol Decanoate (Haloperidol Decanoate 50 Mg/Ml Ampul) 75 mg IM Q28D [facility] Last Admin: 04/25/21 11:49 Dose: 75 mg Documented by: Hydrochlorothiazide (Hydrochlorothiazide 12.5 Mg Tablet) 12.5 mg PO DAILY [facility]; Protocol Last Admin: 05/04/21 08:43 Dose: 12.5 mg Documented by: Hydroxyzine HCl (Hydroxyzine Hcl 25 Mg Tablet) 25 mg PO Q6H PRN PRN Reason: Anxiety Last Admin: 05/04/21 08:43 Dose: 25 mg Documented by: Levetiracetam (Levetiracetam 500 Mg Tablet) 500 mg PO BID [facility] Last Admin: 05/04/21 08:43 Dose: 500 mg Documented by: Loperamide HCl (Loperamide Hcl 2 Mg Capsule) 2 mg PO Q6H PRN PRN Reason: Constipation Magnesium Hydroxide (Milk Of Magnesia 30 Ml Oral.Susp) 30 ml PO DAILY PRN PRN Reason: Constipation Last Admin: 05/01/21 06:49 Dose: 30 ml Documented by: Magnesium Hydroxide (Milk Of Magnesia 30 Ml Oral.Susp) 30 ml PO DAILY PRN PRN Reason: Constipation Mirtazapine (Mirtazapine 15 Mg Tablet) 15 mg PO BEDTIME [facility] Last Admin: 05/03/21 19:59 Dose: 15 mg Documented by: Pt Own Med Odefsey 1 each PO BEDTIME [facility] Last Admin: 05/03/21 20:04 Dose: 1 each Documented by: Olanzapine (Olanzapine 10 Mg Vial) 20 mg IM BEDTIME PRN PRN Reason: refuses PO, as per Milo valdovinos Last Admin: 05/01/21 23:17 Dose: 20 mg Documented by: Olanzapine (Olanzapine Odt 10 Mg Tab.Rapdis) 30 mg TRANSLINGU BEDTIME [facility] Last Admin: 05/03/21 19:59 Dose: 30 mg Documented by: Allergies Allergies Allergy/AdvReac Type Severity Reaction Status Date / Time No Known Allergies Allergy Unverified 01/28/20 16:07 [No Known Allergies*] Assessment & Plan Assessment & Plan (1) Schizoaffective disorder, bipolar type: Status: Acute Code(s): F25.0 - Schizoaffective disorder, bipolar type (2) Dementia: Status: Acute Code(s): F03.90 - Unspecified dementia without behavioral disturbance Assessment and Plan: Pt is a 65 y.o. male who carries a dx of bipolar disorder, however sx are more in line with schizoaffective disorder bipolar type, as he presents with disorganized thought content, agitation, and paranoia. He has mild cognitive impairment r/t dementia and mental health dx. He is currently non-adherent with PO medications and is presenting [facility] with decompensation in sx. He was aggressive on transport and required IM haldol, however since arriving to the unit he has been med compliant and pleasant. Last received haldol dec on 03/30/21. Has [facility] Order in chart. Seroquel and risperdal are listed as alternatives. Plan: Pt will continue on OP med regimen at this time. Changed zyprexa to bedtime. Monitor response to medications. Monitor for safety in the milieu. Discharge on stabilization. Patient seen. Chart reviewed. Discussed with team. Obtain collateral contact info?as needed An affidavit was filled since the guardian was not being able to be contacted, he has a hearing soon and our state attorney will be the legal guardian. Haldol Decanoate increased up to 75 mg IM Continue Haldol and olanzapine [facility] Discharge planning 12/21- increased olanzapine to 30mg po qhs. consider increasing haldol dec and supplement with oral until steady level reached.continue to present as paranoid, guarded, irritable. intermittent periods of agitation and aggression. pending covid test. 05/03- covid test neg. pt in room laughing and talking to himself, speech mostly innentelligible. Less irritable but floridly psychotic. low dose haldol added at night 5mg po qhs- continue haldol dec but consider increasing monthly dose given pt presents as very psychotic. 05/04- pt much more pleasant, less guarded, thought process still disorganized but less self dialoguing, slightly improved attention. continue olanzapine 30mg po qhs, haldol 5mg po qhs. I spent minutes with the patient and/or on the patient floor today, greater than?50% of which was spent counseling/coordinating care. Reason for contiued inpatient stay Substantial Risk for: inability to function
[2021-05-04 12:53] LABS: Influenza A PCR NEGATIVE (Negative); Influenza B PCR NEGATIVE (Negative); Resp Syncy Virus RNA Qual PCR NEGATIVE (Negative); SARS COV2 PCR INHOUSE NEGATIVE (Negative)
--- NOTE | 2021-05-04 14:50 | MHC.CLN ---
F/U CONTINUES WITH USUALLY POOR INTAKE AT MEALS. ACCEPTS ENSURE SUPPLEMENT. ALERTED DINING SERVICES TO SEND 2 ENSURE SUPPLEMENTS PER MEAL. PROVIDES [address] TO FOLLOW WEEKLY.
[2021-05-04 20:11] VITALS: BP 126/58; PULSE 120; TEMP 36.1; O2SAT 96
[2021-05-04] MEDS: HaloperidoL 5 MG TABLET PO (21:44)
[2021-05-04] MEDS: Mirtazapine 15 MG TABLET PO (21:44)
[2021-05-04] MEDS: OLANZapine ODT 10 MG TAB.RAPDIS 30 MG TRANSLINGU (21:51)
--- NOTE | 2021-05-05 10:39 | HO.PSYCHPN ---
Subjective Subjective Date of Service: 05/05/21 Reason For Visit: Delusions Subjective Notes: Pedraza Order and 3 Day Interim History: Patient was seen and discussed in rounds. Records were reviewed. He continues to be somewhat delusional. Only taking in mostly liquids and very little solid food. He is noncompliant with care. No behavioral issues. Sleeping adequately. No changes were made today Medication Compliance: Yes Side effects from medications: No Review of Systems Acute medical concerns: Yes HIV+ Review of Systems Review of Systems unable to evaluate due to patient engagement Yes Unobtainable due to mental condition Diagnostics Vital Signs (24Hr): Vital Signs - 24 hr 05/04/21 20:11 Temperature 97.0 F Pulse Rate 120 H Blood Pressure 126/58 L Pulse Oximetry 96 BMI result Body Mass Index 20.3 Labs Results: 03/31/21 21:09 03/31/21 21:09 Labs: Laboratory Results - last 48 hr 05/04/21 05/04/21 11:30 11:30 SARS-CoV-2 (PCR) Cancelled Influenza Type A (PCR) NEGATIVE Influenza Type B (PCR) NEGATIVE RSV RNA Qual (PCR) NEGATIVE SARS-CoV-2 RNA (RT-PCR) NEGATIVE Medications Medications Current Medications Acetaminophen (Acetaminophen 325 Mg Tablet) 650 mg PO Q6H PRN PRN Reason: Headache/Pain Mild Scale (1-3) Last Admin: 05/03/21 20:04 Dose: 650 mg Documented by: Al Hydroxide/Mg Hydroxide (Magnesium Hydrox/Alum Hydrox 30 Ml Oral.Susp) 30 ml PO Q6H PRN PRN Reason: Heartburn/Nausea Amlodipine Besylate (Amlodipine Besylate 2.5 Mg Tablet) 2.5 mg PO DAILY [facility]; Protocol Last Admin: 05/04/21 08:44 Dose: 2.5 mg Documented by: Clonidine HCl (Clonidine Hcl 0.1 Mg Tablet) 0.1 mg PO Q2H PRN; Protocol PRN Reason: SBP > 150 Last Admin: 04/05/21 21:47 Dose: 0.1 mg Documented by: Ergocalciferol (Ergocalciferol (Vitamin D2) 1,250 Mcg Capsule) 1,250 mcg PO MO [facility] Last Admin: 05/01/21 10:16 Dose: Not Given Documented by: Haloperidol (Haloperidol 5 Mg Tablet) 5 mg PO BEDTIME [facility] Last Admin: 05/04/21 21:44 Dose: 5 mg Documented by: Haloperidol Decanoate (Haloperidol Decanoate 50 Mg/Ml Ampul) 75 mg IM Q28D [facility] Last Admin: 04/25/21 11:49 Dose: 75 mg Documented by: Hydrochlorothiazide (Hydrochlorothiazide 12.5 Mg Tablet) 12.5 mg PO DAILY [facility]; Protocol Last Admin: 05/04/21 08:43 Dose: 12.5 mg Documented by: Hydroxyzine HCl (Hydroxyzine Hcl 25 Mg Tablet) 25 mg PO Q6H PRN PRN Reason: Anxiety Last Admin: 05/04/21 08:43 Dose: 25 mg Documented by: Levetiracetam (Levetiracetam 500 Mg Tablet) 500 mg PO BID [facility] Last Admin: 05/04/21 21:44 Dose: 500 mg Documented by: Loperamide HCl (Loperamide Hcl 2 Mg Capsule) 2 mg PO Q6H PRN PRN Reason: Constipation Magnesium Hydroxide (Milk Of Magnesia 30 Ml Oral.Susp) 30 ml PO DAILY PRN PRN Reason: Constipation Last Admin: 05/01/21 06:49 Dose: 30 ml Documented by: Magnesium Hydroxide (Milk Of Magnesia 30 Ml Oral.Susp) 30 ml PO DAILY PRN PRN Reason: Constipation Mirtazapine (Mirtazapine 15 Mg Tablet) 15 mg PO BEDTIME [facility] Last Admin: 05/04/21 21:44 Dose: 15 mg Documented by: Pt Own Med Odefsey 1 each PO BEDTIME [facility] Last Admin: 05/04/21 21:44 Dose: 1 each Documented by: Olanzapine (Olanzapine 10 Mg Vial) 20 mg IM BEDTIME PRN PRN Reason: refuses PO, as per Milo valdovinos Last Admin: 05/01/21 23:17 Dose: 20 mg Documented by: Olanzapine (Olanzapine Odt 10 Mg Tab.Rapdis) 30 mg TRANSLINGU BEDTIME [facility] Last Admin: 05/04/21 21:51 Dose: 30 mg Documented by: Allergies Allergies Allergy/AdvReac Type Severity Reaction Status Date / Time No Known Allergies Allergy Unverified 01/28/20 16:07 [No Known Allergies*] Assessment & Plan Assessment & Plan (1) Schizoaffective disorder, bipolar type: Status: Acute Code(s): F25.0 - Schizoaffective disorder, bipolar type (2) Dementia: Status: Acute Code(s): F03.90 - Unspecified dementia without behavioral disturbance Assessment and Plan: Pt is a 65 y.o. male who carries a dx of bipolar disorder, however sx are more in line with schizoaffective disorder bipolar type, as he presents with disorganized thought content, agitation, and paranoia. He has mild cognitive impairment r/t dementia and mental health dx. He is currently non-adherent with PO medications and is presenting from [facility] with decompensation in sx. He was aggressive on transport and required IM haldol, however since arriving to the unit he has been med compliant and pleasant. Last received haldol dec on 03/30/21. Has [facility] Order in chart. Seroquel and risperdal are listed as alternatives. Plan: Pt will continue on OP med regimen at this time. Changed zyprexa to bedtime. Monitor response to medications. Monitor for safety in the milieu. Discharge on stabilization. Patient seen. Chart reviewed. Discussed with team. Obtain collateral contact info?as needed An affidavit was filled since the guardian was not being able to be contacted, he has a hearing soon and our estate attorney will be the legal guardian. Haldol Decanoate increased up to 75 mg IM Continue Haldol and olanzapine [facility] Discharge planning 05/02- increased olanzapine to 30mg po qhs. consider increasing haldol dec and supplement with oral until steady level reached.continue to present as paranoid, guarded, irritable. intermittent periods of agitation and aggression. pending covid test. 05/03- covid test neg. pt in room laughing and talking to himself, speech mostly innentelligible. Less irritable but floridly psychotic. low dose haldol added at night 5mg po qhs- continue haldol dec but consider increasing monthly dose given pt presents as very psychotic. 05/04- pt much more pleasant, less guarded, thought process still disorganized but less self dialoguing, slightly improved attention. continue olanzapine 30mg po qhs, haldol 5mg po qhs. 05/05: Continue current regimen and plans. I spent minutes with the patient and/or on the patient floor today, greater than?50% of which was spent counseling/coordinating care. Reason for contiued inpatient stay Substantial Risk for: other
[2021-05-05] MEDS: OLANZapine ODT 10 MG TAB.RAPDIS 30 MG TRANSLINGU (19:39)
[2021-05-05] MEDS: Mirtazapine 15 MG TABLET PO (19:39)
[2021-05-05] MEDS: HaloperidoL 5 MG TABLET PO (19:40)
[2021-05-05] MEDS: levETIRAcetam 500 MG TABLET PO (19:40)
[2021-05-05 20:24] VITALS: BP 117/73; PULSE 91; RESP 18; TEMP 37; O2SAT 95
--- NOTE | 2021-05-06 09:44 | P.PNPSI_ITS ---
Subjective Subjective Date of Service: 05/06/21 Reason For Visit: Delusions Subjective Notes: Conditional Voluntary Medical Problems Affecting Mental Status: No Interim History: Patient was seen and discussed in he has been stable with no acute difficulties. He is med compliant. No complaints or side effects. Eating and sleeping adequately. No dangerous behaviors. No changes were made today Medication Compliance: Yes Side effects from medications: No Review of Systems Review of Systems unable to evaluate due to patient engagement Yes Unobtainable due to mental condition Mental Status Exam Mental Status Exam Narrative: Appearance: disheveled, wearing hospital gown, uncovered abdomen, poor hygiene in NAD Behavior:overly friendly/familiar with newswriter psychomotor:no agitation but pt laughing Speech:mumble, mostly non intelligible. spontaneous unclear if pt understands most questions ask Thought process:disorganized Thought content:unclear Mood: good Affect: Constricted SI:none HI:none VH/AH:internally preoccupied Delusions:less paranoid Insight/judgment:impaired x 2 Memory/cog: alert, impaired secondary to psychiatric symptoms. Patient Orientation: Situation Diagnostics Vital Signs (24Hr): Vital Signs - 24 hr 05/05/21 20:24 Temperature 98.6 F Pulse Rate 91 Respiratory Rate 18 Blood Pressure 117/73 Pulse Oximetry 95 BMI result Body Mass Index 20.3 Labs Results: 03/31/21 21:09 03/31/21 21:09 Labs: Laboratory Results - last 48 hr 05/04/21 05/04/21 11:30 11:30 SARS-CoV-2 (PCR) Cancelled Influenza Type A (PCR) NEGATIVE Influenza Type B (PCR) NEGATIVE RSV RNA Qual (PCR) NEGATIVE SARS-CoV-2 RNA (RT-PCR) NEGATIVE Medications Medications Current Medications Acetaminophen (Acetaminophen 325 Mg Tablet) 650 mg PO Q6H PRN PRN Reason: Headache/Pain Mild Scale (1-3) Last Admin: 05/03/21 20:04 Dose: 650 mg Documented by: Al Hydroxide/Mg Hydroxide (Magnesium Hydrox/Alum Hydrox 30 Ml Oral.Susp) 30 ml PO Q6H PRN PRN Reason: Heartburn/Nausea Amlodipine Besylate (Amlodipine Besylate 2.5 Mg Tablet) 2.5 mg PO DAILY [facility]; Protocol Last Admin: 05/06/21 08:31 Dose: Not Given Documented by: Clonidine HCl (Clonidine Hcl 0.1 Mg Tablet) 0.1 mg PO Q2H PRN; Protocol PRN Reason: SBP > 150 Last Admin: 04/05/21 21:47 Dose: 0.1 mg Documented by: Ergocalciferol (Ergocalciferol (Vitamin D2) 1,250 Mcg Capsule) 1,250 mcg PO MO [facility] Last Admin: 05/01/21 10:16 Dose: Not Given Documented by: Haloperidol (Haloperidol 5 Mg Tablet) 5 mg PO BEDTIME [facility] Last Admin: 05/05/21 19:40 Dose: 5 mg Documented by: Haloperidol Decanoate (Haloperidol Decanoate 50 Mg/Ml Ampul) 75 mg IM Q28D [facility] Last Admin: 04/25/21 11:49 Dose: 75 mg Documented by: Hydrochlorothiazide (Hydrochlorothiazide 12.5 Mg Tablet) 12.5 mg PO DAILY [facility]; Protocol Last Admin: 05/06/21 08:31 Dose: Not Given Documented by: Hydroxyzine HCl (Hydroxyzine Hcl 25 Mg Tablet) 25 mg PO Q6H PRN PRN Reason: Anxiety Last Admin: 05/04/21 08:43 Dose: 25 mg Documented by: Levetiracetam (Levetiracetam 500 Mg Tablet) 500 mg PO BID [facility] Last Admin: 05/06/21 08:31 Dose: Not Given Documented by: Loperamide HCl (Loperamide Hcl 2 Mg Capsule) 2 mg PO Q6H PRN PRN Reason: Constipation Magnesium Hydroxide (Milk Of Magnesia 30 Ml Oral.Susp) 30 ml PO DAILY PRN PRN Reason: Constipation Last Admin: 05/01/21 06:49 Dose: 30 ml Documented by: Magnesium Hydroxide (Milk Of Magnesia 30 Ml Oral.Susp) 30 ml PO DAILY PRN PRN Reason: Constipation Mirtazapine (Mirtazapine 15 Mg Tablet) 15 mg PO BEDTIME [facility] Last Admin: 05/05/21 19:39 Dose: 15 mg Documented by: Pt Own Med Odefsey 1 each PO BEDTIME [facility] Last Admin: 05/05/21 19:39 Dose: 1 each Documented by: Olanzapine (Olanzapine 10 Mg Vial) 20 mg IM BEDTIME PRN PRN Reason: refuses PO, as per Milo valdovinos Last Admin: 05/01/21 23:17 Dose: 20 mg Documented by: Olanzapine (Olanzapine Odt 10 Mg Tab.Rapdis) 30 mg TRANSLINGU BEDTIME [facility] Last Admin: 05/05/21 19:39 Dose: 30 mg Documented by: Allergies Allergies Allergy/AdvReac Type Severity Reaction Status Date / Time No Known Allergies Allergy Unverified 01/28/20 16:07 [No Known Allergies*] Assessment & Plan Assessment & Plan (1) Schizoaffective disorder, bipolar type: Status: Acute Code(s): F25.0 - Schizoaffective disorder, bipolar type (2) Dementia: Status: Acute Code(s): F03.90 - Unspecified dementia without behavioral disturbance Assessment and Plan: Pt is a 65 y.o. male who carries a dx of bipolar disorder, however sx are more in line with schizoaffective disorder bipolar type, as he presents with disorganized thought content, agitation, and paranoia. He has mild cognitive im pairment r/t dementia and mental health dx. He is currently non-adherent with PO medications and is presenting [facility] with decompensation in sx. He was aggressive on transport and required IM haldol, however since arriving to the unit he has been med compliant and pleasant. Last received haldol dec on 03/30/21. Has [facility] Order in chart. Seroquel and risperdal are listed as alternatives. Plan: Pt will continue on OP med regimen at this time. Changed zyprexa to bedtime. Monitor response to medications. Monitor for safety in the milieu. Discharge on stabilization. Patient seen. Chart reviewed. Discussed with team. Obtain collateral contact info?as needed An affidavit was filled since the guardian was not being able to be contacted, he has a hearing soon and our collections attorney will be the legal guardian. Haldol Decanoate increased up to 75 mg IM Continue Haldol and olanzapine [facility] Discharge planning 05/02- increased olanzapine to 30mg po qhs. consider increasing haldol dec and supplement with oral until steady level reached.continue to present as paranoid, guarded, irritable. intermittent periods of agitation and aggression. pending covid test. 05/03- covid test neg. pt in room laughing and talking to himself, speech mostly innentelligible. Less irritable but floridly psychotic. low dose haldol added at night 5mg po qhs- continue haldol dec but consider increasing monthly dose given pt presents as very psychotic. 05/04- pt much more pleasant, less guarded, thought process still disorganized but less self dialoguing, slightly improved attention. continue olanzapine 30mg po qhs, haldol 5mg po qhs. 05/05: Continue current regimen and plans. 05/06: Continue current plan and regimen I spent minutes with the patient and/or on the patient floor today, greater than?50% of which was spent counseling/coordinating care. Reason for contiued inpatient stay Substantial Risk for: other
[2021-05-06 18:00] VITALS: BP 130/88; PULSE 106; RESP 18; TEMP 37.3; O2SAT 94
[2021-05-06] MEDS: Mirtazapine 15 MG TABLET PO (20:07)
[2021-05-06] MEDS: levETIRAcetam 500 MG TABLET PO (20:07)
[2021-05-06] MEDS: HaloperidoL 5 MG TABLET PO (20:07)
[2021-05-06] MEDS: OLANZapine ODT 10 MG TAB.RAPDIS 30 MG TRANSLINGU (20:07)
[2021-05-07 08:00] VITALS: BP 99/62; PULSE 85; TEMP 36.7; O2SAT 97
[2021-05-07 08:34] VITALS: BP 99/62; PULSE 85
[2021-05-07] MEDS: amLODIPine Besylate 2.5 MG TABLET PO (08:34)
[2021-05-07] MEDS: levETIRAcetam 500 MG TABLET PO ×2 (08:35→20:44)
[2021-05-07] MEDS: hydrOXYzine HCL 25 MG TABLET PO (08:35)
--- NOTE | 2021-05-07 10:50 | HO.PSYCHPN ---
Subjective Subjective Date of Service: 05/07/21 Reason For Visit: Delusions Subjective Notes: Conditional Voluntary Interim History: Patient was seen and discussed in rounds. He is mostly isolative in his room. He is a lot with treatment. No complaints or side effects. Eating and sleeping adequately. In cars to come out of his room a little more but he was irritable and told me to leave. No changes were made today and current plans are maintained Medication Compliance: Yes Side effects from medications: No Review of Systems Review of Systems unable to evaluate due to patient engagement Yes Unobtainable due to mental condition Mental Status Exam Mental Status Exam Narrative: In today's visit he is alert, very irritable and uncooperative. Speech is loud. No eye contact. Affect is angry. He is quite irritable and not too cooperative today. No dangerous behaviors. No major behavioral problems reported. Diagnostics Vital Signs (24Hr): Vital Signs - 24 hr 05/06/21 18:00 05/07/21 08:34 Temperature 99.2 F Pulse Rate 106 H 85 Respiratory Rate 18 Blood Pressure 130/88 99/62 Pulse Oximetry 94 BMI result Body Mass Index 20.3 Labs Results: 03/31/21 21:09 03/31/21 21:09 Medications Medications Current Medications Acetaminophen (Acetaminophen 325 Mg Tablet) 650 mg PO Q6H PRN PRN Reason: Headache/Pain Mild Scale (1-3) Last Admin: 05/03/21 20:04 Dose: 650 mg Documented by: Al Hydroxide/Mg Hydroxide (Magnesium Hydrox/Alum Hydrox 30 Ml Oral.Susp) 30 ml PO Q6H PRN PRN Reason: Heartburn/Nausea Amlodipine Besylate (Amlodipine Besylate 2.5 Mg Tablet) 2.5 mg PO DAILY [facility]; Protocol Last Admin: 05/07/21 08:34 Dose: 2.5 mg Documented by: Clonidine HCl (Clonidine Hcl 0.1 Mg Tablet) 0.1 mg PO Q2H PRN; Protocol PRN Reason: SBP > 150 Last Admin: 04/05/21 21:47 Dose: 0.1 mg Documented by: Ergocalciferol (Ergocalciferol (Vitamin D2) 1,250 Mcg Capsule) 1,250 mcg PO MO [facility] Last Admin: 05/01/21 10:16 Dose: Not Given Documented by: Haloperidol (Haloperidol 5 Mg Tablet) 5 mg PO BEDTIME [facility] Last Admin: 05/06/21 20:07 Dose: 5 mg Documented by: Haloperidol Decanoate (Haloperidol Decanoate 50 Mg/Ml Ampul) 75 mg IM Q28D [facility] Last Admin: 04/25/21 11:49 Dose: 75 mg Documented by: Hydrochlorothiazide (Hydrochlorothiazide 12.5 Mg Tablet) 12.5 mg PO DAILY [facility]; Protocol Last Admin: 05/07/21 08:37 Dose: Not Given Documented by: Hydroxyzine HCl (Hydroxyzine Hcl 25 Mg Tablet) 25 mg PO Q6H PRN PRN Reason: Anxiety Last Admin: 05/07/21 08:35 Dose: 25 mg Documented by: Levetiracetam (Levetiracetam 500 Mg Tablet) 500 mg PO BID [facility] Last Admin: 05/07/21 08:35 Dose: 500 mg Documented by: Loperamide HCl (Loperamide Hcl 2 Mg Capsule) 2 mg PO Q6H PRN PRN Reason: Constipation Magnesium Hydroxide (Milk Of Magnesia 30 Ml Oral.Susp) 30 ml PO DAILY PRN PRN Reason: Constipation Last Admin: 05/01/21 06:49 Dose: 30 ml Documented by: Magnesium Hydroxide (Milk Of Magnesia 30 Ml Oral.Susp) 30 ml PO DAILY PRN PRN Reason: Constipation Mirtazapine (Mirtazapine 15 Mg Tablet) 15 mg PO BEDTIME [facility] Last Admin: 05/06/21 20:07 Dose: 15 mg Documented by: Pt Own Med Odefsey 1 each PO BEDTIME [facility] Last Admin: 05/06/21 20:07 Dose: 1 each Documented by: Olanzapine (Olanzapine 10 Mg Vial) 20 mg IM BEDTIME PRN PRN Reason: refuses PO, as per Pedraza carinee Last Admin: 05/01/21 23:17 Dose: 20 mg Documented by: Olanzapine (Olanzapine Odt 10 Mg Tab.Rapdis) 30 mg TRANSLINGU BEDTIME [facility] Last Admin: 05/06/21 20:07 Dose: 30 mg Documented by: Allergies Allergies Allergy/AdvReac Type Severity Reaction Status Date / Time No Known Allergies Allergy Unverified 01/28/20 16:07 [No Known Allergies*] Assessment & Plan Assessment & Plan (1) Schizoaffective disorder, bipolar type: Status: Acute Code(s): F25.0 - Schizoaffective disorder, bipolar type (2) Dementia: Status: Acute Code(s): F03.90 - Unspecified dementia without behavioral disturbance Assessment and Plan: Pt is a 65 y.o. male who carries a dx of bipolar disorder, however sx are more in line with schizoaffective disorder bipolar type, as he presents with disorganized thought content, agitation, and paranoia. He has mild cognitive impairment r/t dementia and mental health dx. He is currently non-adherent with PO medications and is [facility] with decompensation in sx. He was aggressive on transport and required IM haldol, however since arriving to the unit he has been med compliant and pleasant. Last received haldol dec on 03/30/21. Has [facility] Jass's Order in chart. Seroquel and risperdal are listed as alternatives. Plan: Pt will continue on OP med regimen at this time. Changed zyprexa to bedtime. Monitor response to medications. Monitor for safety in the milieu. Discharge on stabilization. Patient seen. Chart reviewed. Discussed with team. Obtain collateral contact info?as needed An affidavit was filled since the guardian was not being able to be contacted, he has a hearing soon and our international operations manager will be the legal guardian. Haldol Decanoate increased up to 75 mg IM Continue Haldol and olanzapine [facility] Discharge planning 05/02- increased olanzapine to 30mg po qhs. consider increasing haldol dec and supplement with oral until steady level reached.continue to present as paranoid, guarded, irritable. intermittent periods of agitation and aggression. pending covid test. 05/03- covid test neg. pt in room laughing and talking to himself, speech mostly innentelligible. Less irritable but floridly psychotic. low dose haldol added at night 5mg po qhs- continue haldol dec but consider increasing monthly dose given pt presents as very psychotic. 05/04- pt much more pleasant, less guarded, thought process still disorganized but less self dialoguing, slightly improved attention. continue olanzapine 30mg po qhs, haldol 5mg po qhs. 05/05: Continue current regimen and plans. 05/06: Continue current plan and regimen 05/07: Continue current regimen and plans. No changes were implemented I spent minutes with the patient and/or on the patient floor today, greater than?50% of which was spent counseling/coordinating care. Reason for contiued inpatient stay Substantial Risk for: other
[2021-05-07 18:00] VITALS: BP 127/81; PULSE 99; RESP 18; TEMP 37.2; O2SAT 95
[2021-05-07] MEDS: HaloperidoL 5 MG TABLET PO (20:44)
[2021-05-07] MEDS: Mirtazapine 15 MG TABLET PO (20:44)
[2021-05-07] MEDS: OLANZapine ODT 10 MG TAB.RAPDIS 30 MG TRANSLINGU (20:44)
[2021-05-08 08:00] VITALS: BP 121/74; PULSE 100; RESP 16; TEMP 35.6; O2SAT 98
[2021-05-08 08:37] VITALS: BP 121/74; PULSE 100
[2021-05-08] MEDS: amLODIPine Besylate 2.5 MG TABLET PO (08:37)
[2021-05-08] MEDS: hydroCHLOROthiazide 12.5 MG TABLET PO (08:37)
[2021-05-08] MEDS: hydrOXYzine HCL 25 MG TABLET PO (08:37)
[2021-05-08] MEDS: levETIRAcetam 500 MG TABLET PO ×2 (08:37→21:14)
[2021-05-08 12:51] LABS: Influenza A PCR NEGATIVE (Negative); Influenza B PCR NEGATIVE (Negative); Resp Syncy Virus RNA Qual PCR NEGATIVE (Negative); SARS COV2 PCR INHOUSE NEGATIVE (Negative)
--- NOTE | 2021-05-08 16:01 | HO.PSYCHPN ---
Subjective Subjective Date of Service: 05/08/21 Reason For Visit: Delusions Subjective Notes: Conditional Voluntary Healthcare Proxy: Yes Guardianship: Yes Interim History: The nursing staff reported that the patient remains chronically psychotic, disorganized and sexually disinhibited at times. No evidence of new seizures. On interview, the patient was pleasantly psychotic, confused but easily redirectable Mental Status Exam Mental Status Exam Patient Appearance: Disheveled and Unkempt Patient Orientation: Person Patient Behavior: Guarded, Passive and Suspicious Mood Description: Suspicious and Withdrawn Affect Description: Constricted and Labile Patient Cognition Impaired: Yes Ability to Follow Directions: Good Speech Pattern: Rambling Hallucinations: Auditory Delusions: Paranoid Ideation Thought Content: positive for Circumstantial Judgement: Fair Diagnostics Vital Signs (24Hr): Vital Signs - 24 hr 05/07/21 18:00 05/08/21 08:00 05/08/21 08:37 Temperature 98.9 F 96.1 F L Pulse Rate 99 100 100 Respiratory Rate 18 16 Blood Pressure 127/81 121/74 121/74 Pulse Oximetry 95 98 BMI result Body Mass Index 20.3 Labs Results: 03/31/21 21:09 03/31/21 21:09 Labs: Laboratory Results - last 48 hr 05/08/21 11:19 Influenza Type A (PCR) NEGATIVE Influenza Type B (PCR) NEGATIVE RSV RNA Qual (PCR) NEGATIVE SARS-CoV-2 RNA (RT-PCR) NEGATIVE Medications Medications Current Medications Acetaminophen (Acetaminophen 325 Mg Tablet) 650 mg PO Q6H PRN PRN Reason: Headache/Pain Mild Scale (1-3) Last Admin: 05/03/21 20:04 Dose: 650 mg Documented by: Al Hydroxide/Mg Hydroxide (Magnesium Hydrox/Alum Hydrox 30 Ml Oral.Susp) 30 ml PO Q6H PRN PRN Reason: Heartburn/Nausea Amlodipine Besylate (Amlodipine Besylate 2.5 Mg Tablet) 2.5 mg PO DAILY [facility]; Protocol Last Admin: 05/08/21 08:37 Dose: 2.5 mg Documented by: Clonidine HCl (Clonidine Hcl 0.1 Mg Tablet) 0.1 mg PO Q2H PRN; Protocol PRN Reason: SBP > 150 Last Admin: 04/05/21 21:47 Dose: 0.1 mg Documented by: Ergocalciferol (Ergocalciferol (Vitamin D2) 1,250 Mcg Capsule) 1,250 mcg PO MO [facility] Last Admin: 05/08/21 08:41 Dose: Not Given Documented by: Haloperidol (Haloperidol 5 Mg Tablet) 5 mg PO BEDTIME [facility] Last Admin: 05/07/21 20:44 Dose: 5 mg Documented by: Haloperidol Decanoate (Haloperidol Decanoate 50 Mg/Ml Ampul) 75 mg IM Q28D [facility] Last Admin: 04/25/21 11:49 Dose: 75 mg Documented by: Hydrochlorothiazide (Hydrochlorothiazide 12.5 Mg Tablet) 12.5 mg PO DAILY [facility]; Protocol Last Admin: 05/08/21 08:37 Dose: 12.5 mg Documented by: Hydroxyzine HCl (Hydroxyzine Hcl 25 Mg Tablet) 25 mg PO Q6H PRN PRN Reason: Anxiety Last Admin: 05/08/21 08:37 Dose: 25 mg Documented by: Levetiracetam (Levetiracetam 500 Mg Tablet) 500 mg PO BID [facility] Last Admin: 05/08/21 08:37 Dose: 500 mg Documented by: Loperamide HCl (Loperamide Hcl 2 Mg Capsule) 2 mg PO Q6H PRN PRN Reason: Constipation Magnesium Hydroxide (Milk Of Magnesia 30 Ml Oral.Susp) 30 ml PO DAILY PRN PRN Reason: Constipation Last Admin: 05/01/21 06:49 Dose: 30 ml Documented by: Magnesium Hydroxide (Milk Of Magnesia 30 Ml Oral.Susp) 30 ml PO DAILY PRN PRN Reason: Constipation Mirtazapine (Mirtazapine 15 Mg Tablet) 15 mg PO BEDTIME [facility] Last Admin: 05/07/21 20:44 Dose: 15 mg Documented by: Pt Own Med Odefsey 1 each PO BEDTIME [facility] Last Admin: 05/07/21 20:44 Dose: 1 each Documented by: Olanzapine (Olanzapine 10 Mg Vial) 20 mg IM BEDTIME PRN PRN Reason: refuses PO, as per Milo valdovinos Last Admin: 05/01/21 23:17 Dose: 20 mg Documented by: Olanzapine (Olanzapine Odt 10 Mg Tab.Rapdis) 30 mg TRANSLINGU BEDTIME [facility] Last Admin: 05/07/21 20:44 Dose: 30 mg Documented by: Allergies Allergies Allergy/AdvReac Type Severity Reaction Status Date / Time No Known Allergies Allergy Unverified 01/28/20 16:07 [No Known Allergies*] Assessment & Plan Assessment & Plan (1) Schizoaffective disorder, bipolar type: Status: Acute Code(s): F25.0 - Schizoaffective disorder, bipolar type (2) Dementia: Status: Acute Code(s): F03.90 - Unspecified dementia without behavioral disturbance Assessment and Plan: Pt is a 65 y.o. male who carries a dx of bipolar disorder, however sx are more in line with schizoaffective disorder bipolar type, as he presents with disorganized thought content, agitation, and paranoia. He has mild cognitive impairment r/t dementia and mental health dx. He is currently non-adherent with PO medications and is presenting [facility] with decompensation in sx. He was aggressive on transport and required IM haldol, however since arriving to the unit he has been med compliant and pleasant. Last received haldol dec on 03/30/21. Has [facility] Order in chart. Seroquel and risperdal are listed as alternatives. Plan: Pt will continue on OP med regimen at this time. Changed zyprexa to bedtime. Monitor response to medications. Monitor for safety in the milieu. Discharge on stabilization. Patient seen. Chart reviewed. Discussed with team. Obtain collateral contact info?as needed An affidavit was filled since the guardian was not being able to be contacted, he has a hearing soon and our attorney lawyer will be the legal guardian. Haldol Decanoate increased up to 75 mg IM with the addition of Haldol p.o. 5 mg p.o. q.h.s. Zyprexa titrated up to 30 mg p.o. q.h.s. Continue Haldol and olanzapine Keppra Discharge planning Keppra level for tomorrow I spent minutes with the patient and/or on the patient floor today, greater than?50% of which was spent counseling/coordinating care. Reason for contiued inpatient stay Substantial Risk for: inability to function, rapid decompensation and med/psych decompensation
[2021-05-08 18:00] VITALS: BP 117/77; PULSE 100; RESP 18; TEMP 37.1; O2SAT 95
[2021-05-08] MEDS: HaloperidoL 5 MG TABLET PO (21:14)
[2021-05-08] MEDS: OLANZapine ODT 10 MG TAB.RAPDIS 30 MG TRANSLINGU (21:14)
[2021-05-08] MEDS: Mirtazapine 15 MG TABLET PO (21:14)
[2021-05-09 06:00] VITALS: BP 123/86; PULSE 95; RESP 16; TEMP 36; O2SAT 98
[2021-05-09 08:36] VITALS: BP 123/86; PULSE 95
[2021-05-09] MEDS: amLODIPine Besylate 2.5 MG TABLET PO (08:36)
[2021-05-09] MEDS: levETIRAcetam 500 MG TABLET PO ×2 (08:36→20:04)
[2021-05-09] MEDS: hydroCHLOROthiazide 12.5 MG TABLET PO (08:36)
--- NOTE | 2021-05-09 14:28 | P.PNPSI_ITS ---
Subjective Subjective Date of Service: 05/09/21 Reason For Visit: Delusions Subjective Notes: Conditional Voluntary Guardianship: Yes Interim History: The nursing staff reported the patient finally ate some solid food. She has been med compliant, pleasantly confused and psychotic but easily redirectable. Mental Status Exam Mental Status Exam Patient Appearance: Disheveled Patient Orientation: Person Level of Consciousness: Disoriented Patient Behavior: Cooperative Mood Description: Labile Affect Description: Constricted Patient Cognition Impaired: Yes Ability to Follow Directions: Good Speech Pattern: Clear Hallucinations: None Delusions: Paranoid Ideation Thought Process: Linear Thought Content: positive for Disoriented and positive for Incoherent Judgement: Fair Diagnostics Vital Signs (24Hr): Vital Signs - 24 hr 05/08/21 18:00 05/09/21 06:00 05/09/21 08:36 Temperature 98.7 F 96.8 F Pulse Rate 100 95 95 Respiratory Rate 18 16 Blood Pressure 117/77 123/86 123/86 Pulse Oximetry 95 98 BMI result Body Mass Index 20.3 Labs Results: 03/31/21 21:09 03/31/21 21:09 Labs: Laboratory Results - last 48 hr 05/08/21 11:19 Influenza Type A (PCR) NEGATIVE Influenza Type B (PCR) NEGATIVE RSV RNA Qual (PCR) NEGATIVE SARS-CoV-2 RNA (RT-PCR) NEGATIVE Medications Medications Current Medications Acetaminophen (Acetaminophen 325 Mg Tablet) 650 mg PO Q6H PRN PRN Reason: Headache/Pain Mild Scale (1-3) Last Admin: 05/03/21 20:04 Dose: 650 mg Documented by: Al Hydroxide/Mg Hydroxide (Magnesium Hydrox/Alum Hydrox 30 Ml Oral.Susp) 30 ml PO Q6H PRN PRN Reason: Heartburn/Nausea Amlodipine Besylate (Amlodipine Besylate 2.5 Mg Tablet) 2.5 mg PO DAILY [facility]; Protocol Last Admin: 05/09/21 08:36 Dose: 2.5 mg Documented by: Clonidine HCl (Clonidine Hcl 0.1 Mg Tablet) 0.1 mg PO Q2H PRN; Protocol PRN Reason: SBP > 150 Last Admin: 04/05/21 21:47 Dose: 0.1 mg Documented by: Ergocalciferol (Ergocalciferol (Vitamin D2) 1,250 Mcg Capsule) 1,250 mcg PO MO [facility] Last Admin: 05/08/21 08:41 Dose: Not Given Documented by: Haloperidol (Haloperidol 5 Mg Tablet) 5 mg PO BEDTIME [facility] Last Admin: 05/08/21 21:14 Dose: 5 mg Documented by: Haloperidol Decanoate (Haloperidol Decanoate 50 Mg/Ml Ampul) 75 mg IM Q28D [facility] Last Admin: 04/25/21 11:49 Dose: 75 mg Documented by: Hydrochlorothiazide (Hydrochlorothiazide 12.5 Mg Tablet) 12.5 mg PO DAILY [facility]; Protocol Last Admin: 05/09/21 08:36 Dose: 12.5 mg Documented by: Hydroxyzine HCl (Hydroxyzine Hcl 25 Mg Tablet) 25 mg PO Q6H PRN PRN Reason: Anxiety Last Admin: 05/08/21 08:37 Dose: 25 mg Documented by: Levetiracetam (Levetiracetam 500 Mg Tablet) 500 mg PO BID [facility] Last Admin: 05/09/21 08:36 Dose: 500 mg Documented by: Loperamide HCl (Loperamide Hcl 2 Mg Capsule) 2 mg PO Q6H PRN PRN Reason: Constipation Magnesium Hydroxide (Milk Of Magnesia 30 Ml Oral.Susp) 30 ml PO DAILY PRN PRN Reason: Constipation Last Admin: 05/01/21 06:49 Dose: 30 ml Documented by: Magnesium Hydroxide (Milk Of Magnesia 30 Ml Oral.Susp) 30 ml PO DAILY PRN PRN Reason: Constipation Mirtazapine (Mirtazapine 15 Mg Tablet) 15 mg PO BEDTIME [facility] Last Admin: 05/08/21 21:14 Dose: 15 mg Documented by: Pt Own Med Odefsey 1 each PO BEDTIME [facility] Last Admin: 05/08/21 21:49 Dose: 1 each Documented by: Olanzapine (Olanzapine 10 Mg Vial) 20 mg IM BEDTIME PRN PRN Reason: refuses PO, as per Milo valdovinos Last Admin: 05/01/21 23:17 Dose: 20 mg Documented by: Olanzapine (Olanzapine Odt 10 Mg Tab.Rapdis) 30 mg TRANSLINGU BEDTIME [facility] Last Admin: 05/08/21 21:14 Dose: 30 mg Documented by: Allergies Allergies Allergy/AdvReac Type Severity Reaction Status Date / Time No Known Allergies Allergy Unverified 01/28/20 16:07 [No Known Allergies*] Assessment & Plan Assessment & Plan (1) Schizoaffective disorder, bipolar type: Status: Acute Code(s): F25.0 - Schizoaffective disorder, bipolar type (2) Dementia: Status: Acute Code(s): F03.90 - Unspecified dementia without behavioral disturbance Assessment and Plan: Pt is a 65 y.o. male who carries a dx of bipolar disorder, however sx are more in line with schizoaffective disorder bipolar type, as he presents with disorganized thought content, agitation, and paranoia. He has mild cognitive impairment r/t dementia and mental health dx. He is currently non-adherent with PO medications and is presenting from [facility] with decompensation in sx. He was aggressive on transport and required IM haldol, however since arriving to the unit he has been med compliant and pleasant. Last received haldol dec on 03/30/21. Has [facility] Order in chart. Seroquel and risperdal are listed as alternatives. Plan: Pt will continue on OP med regimen at this time. Changed zyprexa to bedtime. Monitor response to medications. Monitor for safety in the milieu. Discharge on stabilization. Patient seen. Chart reviewed. Discussed with team. Obtain collateral contact info?as needed An affidavit was filled since the guardian was not being able to be contacted, he has a hearing soon and our defense attorney will be the legal guardian. Haldol Decanoate increased up to 75 mg IM with the addition of Haldol p.o. 5 mg p.o. q.h.s. Zyprexa titrated up to 30 mg p.o. q.h.s. Continue Haldol and olanzapine Keppra Discharge planning Keppra level for today I spent minutes with the patient and/or on the patient floor today, greater than?50% of which was spent counseling/coordinating care. Reason for contiued inpatient stay Substantial Risk for: inability to function, rapid decompensation and med/psych decompensation
[2021-05-09 18:00] VITALS: BP 131/81; PULSE 87; TEMP 37; O2SAT 95
[2021-05-09] MEDS: OLANZapine ODT 10 MG TAB.RAPDIS 30 MG TRANSLINGU (20:04)
[2021-05-09] MEDS: Mirtazapine 15 MG TABLET PO (20:04)
[2021-05-09] MEDS: HaloperidoL 5 MG TABLET PO (20:04)
[2021-05-10 08:00] VITALS: BP 143/83; PULSE 103; TEMP 35.7; O2SAT 96
[2021-05-10 08:26] VITALS: BP 143/83; PULSE 103
[2021-05-10] MEDS: amLODIPine Besylate 2.5 MG TABLET PO (08:26)
[2021-05-10] MEDS: hydroCHLOROthiazide 12.5 MG TABLET PO (08:26)
[2021-05-10] MEDS: hydrOXYzine HCL 25 MG TABLET PO (08:26)
[2021-05-10] MEDS: levETIRAcetam 500 MG TABLET PO ×2 (08:26→20:46)
--- NOTE | 2021-05-10 13:53 | P.PNPSI_ITS ---
Subjective Subjective Date of Service: 05/10/21 Reason For Visit: Delusions Subjective Notes: Conditional Voluntary Guardianship: Yes Interim History: The nursing staff reported that he remains most of the time on his room, he has eaten his meals in his room. On interviw, he was pleasantly confused and cheerful. Mental Status Exam Mental Status Exam Patient Appearance: Disheveled Patient Orientation: Person Level of Consciousness: Awake Patient Behavior: Cooperative Mood Description: Labile Affect Description: Constricted Patient Cognition Impaired: Yes Ability to Follow Directions: Fair Speech Pattern: Clear Hallucinations: Auditory Delusions: Paranoid Ideation Thought Process: Illogical and Distracted Thought Content: positive for Circumstantial Judgement: Fair Diagnostics Vital Signs (24Hr): Vital Signs - 24 hr 05/09/21 18:00 05/10/21 08:00 05/10/21 08:26 Temperature 98.6 F 96.3 F L Pulse Rate 87 103 H 103 H Blood Pressure 131/81 143/83 H 143/83 H Pulse Oximetry 95 96 BMI result Body Mass Index 20.3 Labs Results: 03/31/21 21:09 03/31/21 21:09 Medications Medications Current Medications Acetaminophen (Acetaminophen 325 Mg Tablet) 650 mg PO Q6H PRN PRN Reason: Headache/Pain Mild Scale (1-3) Last Admin: 05/03/21 20:04 Dose: 650 mg Documented by: Al Hydroxide/Mg Hydroxide (Magnesium Hydrox/Alum Hydrox 30 Ml Oral.Susp) 30 ml PO Q6H PRN PRN Reason: Heartburn/Nausea Amlodipine Besylate (Amlodipine Besylate 2.5 Mg Tablet) 2.5 mg PO DAILY [facility]; Protocol Last Admin: 05/10/21 08:26 Dose: 2.5 mg Documented by: Clonidine HCl (Clonidine Hcl 0.1 Mg Tablet) 0.1 mg PO Q2H PRN; Protocol PRN Reason: SBP > 150 Last Admin: 04/05/21 21:47 Dose: 0.1 mg Documented by: Ergocalciferol (Ergocalciferol (Vitamin D2) 1,250 Mcg Capsule) 1,250 mcg PO MO [facility] Last Admin: 05/08/21 08:41 Dose: Not Given Documented by: Haloperidol (Haloperidol 5 Mg Tablet) 5 mg PO BEDTIME [facility] Last Admin: 05/09/21 20:04 Dose: 5 mg Documented by: Haloperidol Decanoate (Haloperidol Decanoate 50 Mg/Ml Ampul) 75 mg IM Q28D [facility] Last Admin: 04/25/21 11:49 Dose: 75 mg Documented by: Hydrochlorothiazide (Hydrochlorothiazide 12.5 Mg Tablet) 12.5 mg PO DAILY [facility]; Protocol Last Admin: 05/10/21 08:26 Dose: 12.5 mg Documented by: Hydroxyzine HCl (Hydroxyzine Hcl 25 Mg Tablet) 25 mg PO Q6H PRN PRN Reason: Anxiety Last Admin: 05/10/21 08:26 Dose: 25 mg Documented by: Levetiracetam (Levetiracetam 500 Mg Tablet) 500 mg PO BID [facility] Last Admin: 05/10/21 08:26 Dose: 500 mg Documented by: Loperamide HCl (Loperamide Hcl 2 Mg Capsule) 2 mg PO Q6H PRN PRN Reason: Constipation Magnesium Hydroxide (Milk Of Magnesia 30 Ml Oral.Susp) 30 ml PO DAILY PRN PRN Reason: Constipation Last Admin: 05/01/21 06:49 Dose: 30 ml Documented by: Magnesium Hydroxide (Milk Of Magnesia 30 Ml Oral.Susp) 30 ml PO DAILY PRN PRN Reason: Constipation Mirtazapine (Mirtazapine 15 Mg Tablet) 15 mg PO BEDTIME [facility] Last Admin: 05/09/21 20:04 Dose: 15 mg Documented by: Pt Own Med Odefsey 1 each PO BEDTIME [facility] Last Admin: 05/09/21 20:05 Dose: 1 each Documented by: Olanzapine (Olanzapine 10 Mg Vial) 20 mg IM BEDTIME PRN PRN Reason: refuses PO, as per Milo valdovinos Last Admin: 05/01/21 23:17 Dose: 20 mg Documented by: Olanzapine (Olanzapine Odt 10 Mg Tab.Rapdis) 30 mg TRANSLINGU BEDTIME [facility] Last Admin: 05/09/21 20:04 Dose: 30 mg Documented by: Allergies Allergies Allergy/AdvReac Type Severity Reaction Status Date / Time No Known Allergies Allergy Unverified 01/28/20 16:07 [No Known Allergies*] Assessment & Plan Assessment & Plan (1) Schizoaffective disorder, bipolar type: Status: Acute Code(s): F25.0 - Schizoaffective disorder, bipolar type (2) Dementia: Status: Acute Code(s): F03.90 - Unspecified dementia without behavioral disturbance Assessment and Plan: Pt is a 65 y.o. male who carries a dx of bipolar disorder, however sx are more in line with schizoaffective disorder bipolar type, as he presents with disorganized thought content, agitation, and paranoia. He has mild cognitive impairment r/t dementia and mental health dx. He is currently non-adherent with PO medications and is presenting [facility] with decompensation in sx. He was aggressive on transport and required IM haldol, however since arriving to e unit he has been med compliant and pleasant. Last received haldol dec on 03/30/21. Has [facility]ass's Order in chart. Seroquel and risperdal are listed as alternatives. Plan: Pt will continue on OP med regimen at this time. Changed zyprexa to bedtime. Monitor response to medications. Monitor for safety in the milieu. Discharge on stabilization. Patient seen. Chart reviewed. Discussed with team. Obtain collateral contact info?as needed An affidavit was filled since the guardian was not being able to be contacted, he has a hearing soon and our state's attorney will be the legal guardian. Haldol Decanoate increased up to 75 mg IM with the addition of Haldol p.o. 5 mg p.o. q.h.s. Zyprexa titrated up to 30 mg p.o. q.h.s. Continue Haldol and olanzapine Keppra Discharge planning Keppra level for today I spent minutes with the patient and/or on the patient floor today, greater than?50% of which was spent counseling/coordinating care. Reason for contiued inpatient stay Substantial Risk for: inability to function, rapid decompensation and med/psych decompensation
[2021-05-10 18:00] VITALS: BP 136/90; PULSE 106; RESP 18; TEMP 36.6; O2SAT 96
[2021-05-10] MEDS: OLANZapine ODT 10 MG TAB.RAPDIS 30 MG TRANSLINGU (20:46)
[2021-05-10] MEDS: HaloperidoL 5 MG TABLET PO (20:46)
[2021-05-10] MEDS: Mirtazapine 15 MG TABLET PO (20:46)
[2021-05-11 06:00] VITALS: BP 121/89; PULSE 84; RESP 16; TEMP 36.6; O2SAT 92
[2021-05-11 09:09] LABS: Influenza A PCR NEGATIVE (Negative); Influenza B PCR NEGATIVE (Negative); Resp Syncy Virus RNA Qual PCR NEGATIVE (Negative); SARS COV2 PCR INHOUSE NEGATIVE (Negative)
--- NOTE | 2021-05-11 13:49 | P.PNPSI_ITS ---
Subjective Subjective Date of Service: 05/11/21 Reason For Visit: Delusions Subjective Notes: Conditional Voluntary Guardianship: Yes Interim History: The nursing staff reports that the patient has been on his room most of the time, he is now eating solid food. His regular [facility] reported that they do not have the staff to help him on ADL less and apparently he has deteriorated since his last admission. The protective services social worker has contact the legal team and probably will need to do another medical certificate in order to get placement in SNF Mental Status Exam Mental Status Exam Patient Appearance: Disheveled Patient Orientation: Person Level of Consciousness: Restless Patient Behavior: Guarded Mood Description: Withdrawn Affect Description: Labile Patient Cognition Impaired: Yes Ability to Follow Directions: Fair Speech Pattern: Clear Hallucinations: None Delusions: Not Present Thought Process: Linear Thought Content: positive for Poverty of Content Judgement: Poor Diagnostics Vital Signs (24Hr): Vital Signs - 24 hr 05/10/21 18:00 05/11/21 06:00 Temperature 97.9 F 97.8 F Pulse Rate 106 H 84 Respiratory Rate 18 16 Blood Pressure 136/90 H 121/89 Pulse Oximetry 96 92 BMI result Body Mass Index 20.3 Labs Results: 03/31/21 21:09 03/31/21 21:09 Labs: Laboratory Results - last 48 hr 05/11/21 07:40 Influenza Type A (PCR) NEGATIVE Influenza Type B (PCR) NEGATIVE RSV RNA Qual (PCR) NEGATIVE SARS-CoV-2 RNA (RT-PCR) NEGATIVE Medications Medications Current Medications Acetaminophen (Acetaminophen 325 Mg Tablet) 650 mg PO Q6H PRN PRN Reason: Headache/Pain Mild Scale (1-3) Last Admin: 05/03/21 20:04 Dose: 650 mg Documented by: Al Hydroxide/Mg Hydroxide (Magnesium Hydrox/Alum Hydrox 30 Ml Oral.Susp) 30 ml PO Q6H PRN PRN Reason: Heartburn/Nausea Amlodipine Besylate (Amlodipine Besylate 2.5 Mg Tablet) 2.5 mg PO DAILY [facility]; Protocol Last Admin: 05/11/21 09:56 Dose: Not Given Documented by: Clonidine HCl (Clonidine Hcl 0.1 Mg Tablet) 0.1 mg PO Q2H PRN; Protocol PRN Reason: SBP > 150 Last Admin: 04/05/21 21:47 Dose: 0.1 mg Documented by: Ergocalciferol (Ergocalciferol (Vitamin D2) 1,250 Mcg Capsule) 1,250 mcg PO MO [facility] Last Admin: 05/08/21 08:41 Dose: Not Given Documented by: Haloperidol (Haloperidol 5 Mg Tablet) 5 mg PO BEDTIME [facility] Last Admin: 05/10/21 20:46 Dose: 5 mg Documented by: Haloperidol Decanoate (Haloperidol Decanoate 50 Mg/Ml Ampul) 75 mg IM Q28D [facility] Last Admin: 04/25/21 11:49 Dose: 75 mg Documented by: Hydrochlorothiazide (Hydrochlorothiazide 12.5 Mg Tablet) 12.5 mg PO DAILY [facility]; Protocol Last Admin: 05/11/21 09:56 Dose: Not Given Documented by: Hydroxyzine HCl (Hydroxyzine Hcl 25 Mg Tablet) 25 mg PO Q6H PRN PRN Reason: Anxiety Last Admin: 05/10/21 08:26 Dose: 25 mg Documented by: Levetiracetam (Levetiracetam 500 Mg Tablet) 500 mg PO BID [facility] Last Admin: 05/11/21 09:56 Dose: Not Given Documented by: Loperamide HCl (Loperamide Hcl 2 Mg Capsule) 2 mg PO Q6H PRN PRN Reason: Constipation Magnesium Hydroxide (Milk Of Magnesia 30 Ml Oral.Susp) 30 ml PO DAILY PRN PRN Reason: Constipation Last Admin: 05/01/21 06:49 Dose: 30 ml Documented by: Magnesium Hydroxide (Milk Of Magnesia 30 Ml Oral.Susp) 30 ml PO DAILY PRN PRN Reason: Constipation Mirtazapine (Mirtazapine 15 Mg Tablet) 15 mg PO BEDTIME [facility] Last Admin: 05/10/21 20:46 Dose: 15 mg Documented by: Pt Own Med Odefsey 1 each PO BEDTIME [facility] Last Admin: 05/10/21 20:46 Dose: 1 each Documented by: Olanzapine (Olanzapine 10 Mg Vial) 20 mg IM BEDTIME PRN PRN Reason: refuses PO, as per Milo valdovinos Last Admin: 05/01/21 23:17 Dose: 20 mg Documented by: Olanzapine (Olanzapine Odt 10 Mg Tab.Rapdis) 30 mg TRANSLINGU BEDTIME [facility] Last Admin: 05/10/21 20:46 Dose: 30 mg Documented by: Allergies Allergies Allergy/AdvReac Type Severity Reaction Status Date / Time No Known Allergies Allergy Unverified 01/28/20 16:07 [No Known Allergies*] Assessment & Plan Assessment & Plan (1) Schizoaffective disorder, bipolar type: Status: Acute Code(s): F25.0 - Schizoaffective disorder, bipolar type (2) Dementia: Status: Acute Code(s): F03.90 - Unspecified dementia without behavioral disturbance Assessment and Plan: Pt is a 65 y.o. male who carries a dx of bipolar disorder, however sx are more in line with schizoaffective disorder bipolar type, as he presents with disorganized thought content, agitation, and paranoia. He has mild cognitive impairment r/t dementia and mental health dx. He is currently non-adherent with PO medications and is presenting from [facility] with decompensation in sx. He was aggressive on transport and required IM haldol, however since arriving to the unit he has been med compliant and pleasant. Last received haldol dec on 03/30/21. Has omar Regan's Order in chart. Seroquel and risperdal are listed as alternatives. Plan: Pt will continue on OP med regimen at this time. Changed zyprexa to bedtime. Monitor response to medications. Monitor for safety in the milieu. Discharge on stabilization. Patient seen. Chart reviewed. Discussed with team. Obtain collateral contact info?as needed An affidavit was filled since the guardian was not being able to be contacted, he has a hearing soon and our attorney general will be the legal guardian. Haldol Decanoate increased up to 75 mg IM with the addition of Haldol p.o. 5 mg p.o. q.h.s. Zyprexa titrated up to 30 mg p.o. q.h.s. Continue Haldol and olanzapine Keppra Discharge planning Keppra level for today I spent minutes with the patient and/or on the patient floor today, greater than?50% of which was spent counseling/coordinating care. Reason for contiued inpatient stay Substantial Risk for: inability to function, rapid decompensation and med/psych decompensation
--- NOTE | 2021-05-11 15:50 | MHC.CLN ---
F/U CONTINUES WITH USUALLY POOR INTAKE AT MEALS. DINING SERVICES TO CONTINUE TO SEND 2 ENSURE SUPPLEMENTS AT EACH MEAL.
[2021-05-11 18:00] VITALS: BP 133/84; PULSE 94; RESP 18; TEMP 36.6; O2SAT 96
[2021-05-11] MEDS: OLANZapine ODT 10 MG TAB.RAPDIS 30 MG TRANSLINGU (20:01)
[2021-05-11] MEDS: HaloperidoL 5 MG TABLET PO (20:01)
[2021-05-11] MEDS: levETIRAcetam 500 MG TABLET PO (20:01)
[2021-05-11] MEDS: Mirtazapine 15 MG TABLET PO (20:01)
[2021-05-11] MEDS: Acetaminophen 325 MG TABLET 650 MG PO (20:02)
--- NOTE | 2021-05-12 10:40 | P.PNPSI_ITS ---
Subjective Subjective Date of Service: 05/12/21 Reason For Visit: Delusions Subjective Notes: Conditional Voluntary Guardianship: Yes Interim History: The nursing staff reported the patient is now eating 80% of his dinner. He has been more visible in the unit, watching TV in the common area. On interview, the patient denies new symptoms he looks more pleasant and cooperative. Mental Status Exam Mental Status Exam Patient Appearance: Disheveled and Unkempt Patient Orientation: Person Level of Consciousness: Awake Patient Behavior: Cooperative Mood Description: Withdrawn Affect Description: Constricted Patient Cognition Impaired: Yes Ability to Follow Directions: Fair Speech Pattern: Appropriate Memory Description: Intact Hallucinations: Auditory Delusions: Paranoid Ideation Thought Process: Illogical and Slowed Thinking Thought Content: positive for Poverty of Content and positive for Loose Associations Judgement: Fair Diagnostics Vital Signs (24Hr): Vital Signs - 24 hr 05/11/21 18:00 Temperature 97.8 F Pulse Rate 94 Respiratory Rate 18 Blood Pressure 133/84 Pulse Oximetry 96 BMI result Body Mass Index 20.3 Labs Results: 03/31/21 21:09 03/31/21 21:09 Labs: Laboratory Results - last 48 hr 05/11/21 07:40 Influenza Type A (PCR) NEGATIVE Influenza Type B (PCR) NEGATIVE RSV RNA Qual (PCR) NEGATIVE SARS-CoV-2 RNA (RT-PCR) NEGATIVE Medications Medications Current Medications Acetaminophen (Acetaminophen 325 Mg Tablet) 650 mg PO Q6H PRN PRN Reason: Headache/Pain Mild Scale (1-3) Last Admin: 05/11/21 20:02 Dose: 650 mg Documented by: Al Hydroxide/Mg Hydroxide (Magnesium Hydrox/Alum Hydrox 30 Ml Oral.Susp) 30 ml PO Q6H PRN PRN Reason: Heartburn/Nausea Amlodipine Besylate (Amlodipine Besylate 2.5 Mg Tablet) 2.5 mg PO DAILY [facility]; Pr otocol Last Admin: 05/12/21 08:40 Dose: Not Given Documented by: Clonidine HCl (Clonidine Hcl 0.1 Mg Tablet) 0.1 mg PO Q2H PRN; Protocol PRN Reason: SBP > 150 Last Admin: 04/05/21 21:47 Dose: 0.1 mg Documented by: Ergocalciferol (Ergocalciferol (Vitamin D2) 1,250 Mcg Capsule) 1,250 mcg PO MO [facility] Last Admin: 05/08/21 08:41 Dose: Not Given Documented by: Haloperidol (Haloperidol 5 Mg Tablet) 5 mg PO BEDTIME [facility] Last Admin: 05/11/21 20:01 Dose: 5 mg Documented by: Haloperidol Decanoate (Haloperidol Decanoate 50 Mg/Ml Ampul) 75 mg IM Q28D [facility] Last Admin: 04/25/21 11:49 Dose: 75 mg Documented by: Hydrochlorothiazide (Hydrochlorothiazide 12.5 Mg Tablet) 12.5 mg PO DAILY [facility]; Protocol Last Admin: 05/12/21 08:40 Dose: Not Given Documented by: Hydroxyzine HCl (Hydroxyzine Hcl 25 Mg Tablet) 25 mg PO Q6H PRN PRN Reason: Anxiety Last Admin: 05/10/21 08:26 Dose: 25 mg Documented by: Levetiracetam (Levetiracetam 500 Mg Tablet) 500 mg PO BID [facility] Last Admin: 05/12/21 08:41 Dose: Not Given Documented by: Loperamide HCl (Loperamide Hcl 2 Mg Capsule) 2 mg PO Q6H PRN PRN Reason: Constipation Magnesium Hydroxide (Milk Of Magnesia 30 Ml Oral.Susp) 30 ml PO DAILY PRN PRN Reason: Constipation Last Admin: 05/01/21 06:49 Dose: 30 ml Documented by: Magnesium Hydroxide (Milk Of Magnesia 30 Ml Oral.Susp) 30 ml PO DAILY PRN PRN Reason: Constipation Mirtazapine (Mirtazapine 15 Mg Tablet) 15 mg PO BEDTIME [facility] Last Admin: 05/11/21 20:01 Dose: 15 mg Documented by: Pt Own Med Odefsey 1 each PO BEDTIME [facility] Last Admin: 05/11/21 20:01 Dose: 1 each Documented by: Olanzapine (Olanzapine 10 Mg Vial) 20 mg IM BEDTIME PRN PRN Reason: refuses PO, as per Milo valdovinos Last Admin: 05/01/21 23:17 Dose: 20 mg Documented by: Olanzapine (Olanzapine Odt 10 Mg Tab.Rapdis) 30 mg TRANSLINGU BEDTIME [facility] Last Admin: 05/11/21 20:01 Dose: 30 mg Documented by: Allergies Allergies Allergy/AdvReac Type Severity Reaction Status Date / Time No Known Allergies Allergy Unverified 01/28/20 16:07 [No Known Allergies*] Assessment & Plan Assessment & Plan (1) Schizoaffective disorder, bipolar type: Status: Acute Code(s): F25.0 - Schizoaffective disorder, bipolar type (2) Dementia: Status: Acute Code(s): F03.90 - Unspecified dementia without behavioral disturbance Assessment and Plan: Pt is a 65 y.o. male who carries a dx of bipolar disorder, however sx are more in line with schizoaffective disorder bipolar type, as he presents with disorganized thought content, agitation, and paranoia. He has mild cognitive impairment r/t dementia and mental health dx. He is currently non-adherent with PO medications and is presenting from [facility] with decompensation in sx. He was aggressive on transport and required IM haldol, however since arriving to the unit he has been med compliant and pleasant. Last received haldol dec on 03/30/21. Has omar Regan's Order in chart. Seroquel and risperdal are listed as alternatives. Plan: Pt will continue on OP med regimen at this time. Changed zyprexa to bedtime. Monitor response to medications. Monitor for safety in the milieu. Discharge on stabilization. Patient seen. Chart reviewed. Discussed with team. Obtain collateral contact info?as needed An affidavit was filled since the guardian was not being able to be contacted, he has a hearing soon and our commercial litigation attorney will be the legal guardian. Haldol Decanoate increased up to 75 mg IM with the addition of Haldol p.o. 5 mg p.o. q.h.s. Zyprexa titrated up to 30 mg p.o. q.h.s. Continue Haldol and olanzapine Keppra Discharge planning Keppra level for today I spent minutes with the patient and/or on the patient floor today, greater than?50% of which was spent counseling/coordinating care. Reason for contiued inpatient stay Substantial Risk for: inability to function, rapid decompensation and med/psych decompensation
[2021-05-12 11:46] LABS: Levetiracetam Keppra <1.0 mcg/mL (12.0-46.0)
[2021-05-12 18:00] VITALS: BP 110/68; PULSE 83; RESP 18; TEMP 37.2; O2SAT 95
[2021-05-12] MEDS: OLANZapine ODT 10 MG TAB.RAPDIS 30 MG TRANSLINGU (20:23)
[2021-05-12] MEDS: levETIRAcetam 500 MG TABLET PO (20:23)
[2021-05-12] MEDS: Mirtazapine 15 MG TABLET PO (20:23)
[2021-05-12] MEDS: HaloperidoL 5 MG TABLET PO (21:30)
[2021-05-13 09:06] VITALS: BP 128/86; PULSE 86; RESP 16; TEMP 36.6; O2SAT 96
[2021-05-13] MEDS: amLODIPine Besylate 2.5 MG TABLET PO (09:17)
[2021-05-13] MEDS: hydroCHLOROthiazide 12.5 MG TABLET PO (09:18)
[2021-05-13] MEDS: levETIRAcetam 500 MG TABLET PO ×2 (09:18→19:56)
[2021-05-13] MEDS: OLANZapine ODT 10 MG TAB.RAPDIS 30 MG TRANSLINGU (19:56)
[2021-05-13] MEDS: Mirtazapine 15 MG TABLET PO (19:56)
[2021-05-13] MEDS: HaloperidoL 5 MG TABLET PO (19:56)
--- NOTE | 2021-05-13 21:20 | HO.PSYCHPN ---
Subjective Subjective Date of Service: 06/13/21 Reason For Visit: Delusions Subjective Notes: Conditional Voluntary Interim History: Patient's case read nursing staff chart reviewed patient seen. Patient has a much horton range of affect has been more pleasant engaged Medication Compliance: Intermittent Diagnostics Vital Signs (24Hr): Vital Signs - 24 hr 05/13/21 09:06 Temperature 97.9 F Pulse Rate 86 Respiratory Rate 16 Blood Pressure 128/86 Pulse Oximetry 96 BMI result Body Mass Index 20.3 Labs Results: 03/31/21 21:09 03/31/21 21:09 Labs: Laboratory Results - last 48 hr 05/09/21 08:39 Levetiracetam <1.0 L Medications Medications Current Medications Acetaminophen (Acetaminophen 325 Mg Tablet) 650 mg PO Q6H PRN PRN Reason: Headache/Pain Mild Scale (1-3) Last Admin: 05/11/21 20:02 Dose: 650 mg Documented by: Al Hydroxide/Mg Hydroxide (Magnesium Hydrox/Alum Hydrox 30 Ml Oral.Susp) 30 ml PO Q6H PRN PRN Reason: Heartburn/Nausea Amlodipine Besylate (Amlodipine Besylate 2.5 Mg Tablet) 2.5 mg PO DAILY [facility]; Protocol Last Admin: 05/13/21 09:17 Dose: 2.5 mg Documented by: Clonidine HCl (Clonidine Hcl 0.1 Mg Tablet) 0.1 mg PO Q2H PRN; Protocol PRN Reason: SBP > 150 Last Admin: 04/05/21 21:47 Dose: 0.1 mg Documented by: Ergocalciferol (Ergocalciferol (Vitamin D2) 1,250 Mcg Capsule) 1,250 mcg PO MO [facility] Last Admin: 05/08/21 08:41 Dose: Not Given Documented by: Haloperidol (Haloperidol 5 Mg Tablet) 5 mg PO BEDTIME [facility] Last Admin: 05/13/21 19:56 Dose: 5 mg Documented by: Haloperidol Decanoate (Haloperidol Decanoate 50 Mg/Ml Ampul) 75 mg IM Q28D [facility] Last Admin: 04/25/21 11:49 Dose: 75 mg Documented by: Hydrochlorothiazide (Hydrochlorothiazide 12.5 Mg Tablet) 12.5 mg PO DAILY [facility]; Protocol Last Admin: 05/13/21 09:18 Dose: 12.5 mg Documented by: Hydroxyzine HCl (Hydroxyzine Hcl 25 Mg Tablet) 25 mg PO Q6H PRN PRN Reason: Anxiety Last Admin: 05/10/21 08:26 Dose: 25 mg Documented by: Levetiracetam (Levetiracetam 500 Mg Tablet) 500 mg PO BID [facility] Last Admin: 05/13/21 19:56 Dose: 500 mg Documented by: Loperamide HCl (Loperamide Hcl 2 Mg Capsule) 2 mg PO Q6H PRN PRN Reason: Constipation Magnesium Hydroxide (Milk Of Magnesia 30 Ml Oral.Susp) 30 ml PO DAILY PRN PRN Reason: Constipation Last Admin: 05/01/21 06:49 Dose: 30 ml Documented by: Magnesium Hydroxide (Milk Of Magnesia 30 Ml Oral.Susp) 30 ml PO DAILY PRN PRN Reason: Constipation Mirtazapine (Mirtazapine 15 Mg Tablet) 15 mg PO BEDTIME [facility] Last Admin: 05/13/21 19:56 Dose: 15 mg Documented by: Pt Own Med Odefsey 1 each PO BEDTIME [facility] Last Admin: 05/13/21 19:56 Dose: 1 each Documented by: Olanzapine (Olanzapine 10 Mg Vial) 20 mg IM BEDTIME PRN PRN Reason: refuses PO, as per Milo valdovinos Last Admin: 05/01/21 23:17 Dose: 20 mg Documented by: Olanzapine (Olanzapine Odt 10 Mg Tab.Rapdis) 30 mg TRANSLINGU BEDTIME [facility] Last Admin: 05/13/21 19:56 Dose: 30 mg Documented by: Allergies Allergies Allergy/AdvReac Type Severity Reaction Status Date / Time No Known Allergies Allergy Unverified 01/28/20 16:07 [No Known Allergies*] Assessment & Plan Assessment & Plan (1) Schizoaffective disorder, bipolar type: Status: Acute Code(s): F25.0 - Schizoaffective disorder, bipolar type (2) Dementia: Status: Acute Code(s): F03.90 - Unspecified dementia without behavioral disturbance Assessment and Plan: Pt is a 65 y.o. male who carries a dx of bipolar disorder, however sx are more in line with schizoaffective disorder bipolar type, as he presents with disorganized thought content, agitation, and paranoia. He has mild cognitive impairment r/t dementia and mental health dx. He is currently non-adherent with PO medications and is presenting from [facility] with decompensation in sx. He was aggressive on transport and required IM haldol, however since arriving to the unit he has been med compliant and pleasant. Last received haldol dec on 03/30/21. Has omar Regan's Order in chart. Seroquel and risperdal are listed as alternatives. Plan: Pt will continue on OP med regimen at this time. Changed zyprexa to bedtime. Monitor response to medications. Monitor for safety in the milieu. Discharge on stabilization. Patient seen. Chart reviewed. Discussed with team. Obtain collateral contact info?as needed An affidavit was filled since the guardian was not being able to be contacted, he has a hearing soon and our managing attorney will be the legal guardian. Haldol Decanoate increased up to 75 mg IM with the addition of Haldol p.o. 5 mg p.o. q.h.s. Zyprexa titrated up to 30 mg p.o. q.h.s. Continue Haldol and olanzapine Keppra Discharge planning Keppra level for today Current note for 05/13/2020 Continue Haldol olanzapine Keppra patient has not have seizure Keppra level somewhat decreased encourage compliance patient with a much horton range of affect I spent minutes with the patient and/or on the patient floor today, greater than?50% of which was spent counseling/coordinating care. Reason for contiued inpatient stay Substantial Risk for: rapid decompensation and med/psych decompensation
[2021-05-14 06:00] VITALS: BP 110/74; PULSE 83; TEMP 36.1; O2SAT 96
[2021-05-14 08:05] VITALS: BP 110/74; PULSE 83
[2021-05-14] MEDS: amLODIPine Besylate 2.5 MG TABLET PO (08:05)
[2021-05-14] MEDS: hydroCHLOROthiazide 12.5 MG TABLET PO (08:06)
[2021-05-14] MEDS: levETIRAcetam 500 MG TABLET PO ×2 (08:06→20:01)
--- NOTE | 2021-05-14 14:13 | PC.NURSE ---
Patient has been visible on unit throughout shift.Enjoyoing watching music channel on tv. Pleasant and cooperative. Med compliant. No behavioral issues. Eating <25% of food. Eating meals in room. Minimal interaction with others however interacts appropriately with staff. Reports safe on unit. Unable to engage patient in productive 1:1.
[2021-05-14 19:30] VITALS: BP 132/88; PULSE 92; RESP 18; TEMP 36.3; O2SAT 96
[2021-05-14] MEDS: OLANZapine ODT 10 MG TAB.RAPDIS 30 MG TRANSLINGU (20:01)
[2021-05-14] MEDS: Mirtazapine 15 MG TABLET PO (20:01)
[2021-05-14] MEDS: HaloperidoL 5 MG TABLET PO (20:01)
--- NOTE | 2021-05-14 21:42 | HO.PSYCHPN ---
Subjective Subjective Date of Service: 05/14/21 Reason For Visit: Delusions Subjective Notes: Conditional Voluntary Interim History: Patient has been cooperative horton affect taking medication as prescribed Mental Status Exam Mental Status Exam Patient Appearance: Appropriate Patient Orientation: Person and Place Level of Consciousness: Awake Patient Behavior: Cooperative Mood Description: Withdrawn Affect Description: Constricted Patient Cognition Impaired: Yes Ability to Follow Directions: Fair Speech Pattern: Appropriate Memory Description: Intact Hallucinations: Auditory Delusions: Paranoid Ideation Thought Process: Illogical and Slowed Thinking Thought Content: positive for Poverty of Content and positive for Loose Associations Judgement: Fair Diagnostics Vital Signs (24Hr): Vital Signs - 24 hr 05/14/21 06:00 05/14/21 08:05 05/14/21 19:30 Temperature 96.9 F 97.3 F Pulse Rate 83 83 92 Respiratory Rate 18 Blood Pressure 110/74 110/74 132/88 Pulse Oximetry 96 96 BMI result Body Mass Index 20.3 Labs Results: 03/31/21 21:09 03/31/21 21:09 Medications Medications Current Medications Acetaminophen (Acetaminophen 325 Mg Tablet) 650 mg PO Q6H PRN PRN Reason: Headache/Pain Mild Scale (1-3) Last Admin: 05/11/21 20:02 Dose: 650 mg Documented by: Al Hydroxide/Mg Hydroxide (Magnesium Hydrox/Alum Hydrox 30 Ml Oral.Susp) 30 ml PO Q6H PRN PRN Reason: Heartburn/Nausea Amlodipine Besylate (Amlodipine Besylate 2.5 Mg Tablet) 2.5 mg PO DAILY [facility]; Protocol Last Admin: 05/14/21 08:05 Dose: 2.5 mg Documented by: Clonidine HCl (Clonidine Hcl 0.1 Mg Tablet) 0.1 mg PO Q2H PRN; Protocol PRN Reason: SBP > 150 Last Admin: 04/05/21 21:47 Dose: 0.1 mg Documented by: Ergocalciferol (Ergocalciferol (Vitamin D2) 1,250 Mcg Capsule) 1,250 mcg PO MO [facility] Last Admin: 05/08/21 08:41 Dose: Not Given Documented by: Haloperidol (Haloperidol 5 Mg Tablet) 5 mg PO BEDTIME [facility] Last Admin: 05/14/21 20:01 Dose: 5 mg Documented by: Haloperidol Decanoate (Haloperidol Decanoate 50 Mg/Ml Ampul) 75 mg IM Q28D [facility] Last Admin: 04/25/21 11:49 Dose: 75 mg Documented by: Hydrochlorothiazide (Hydrochlorothiazide 12.5 Mg Tablet) 12.5 mg PO DAILY [facility]; Protocol Last Admin: 05/14/21 08:06 Dose: 12.5 mg Documented by: Hydroxyzine HCl (Hydroxyzine Hcl 25 Mg Tablet) 25 mg PO Q6H PRN PRN Reason: Anxiety Last Admin: 05/10/21 08:26 Dose: 25 mg Documented by: Levetiracetam (Levetiracetam 500 Mg Tablet) 500 mg PO BID [facility] Last Admin: 05/14/21 20:01 Dose: 500 mg Documented by: Loperamide HCl (Loperamide Hcl 2 Mg Capsule) 2 mg PO Q6H PRN PRN Reason: Constipation Magnesium Hydroxide (Milk Of Magnesia 30 Ml Oral.Susp) 30 ml PO DAILY PRN PRN Reason: Constipation Last Admin: 05/01/21 06:49 Dose: 30 ml Documented by: Magnesium Hydroxide (Milk Of Magnesia 30 Ml Oral.Susp) 30 ml PO DAILY PRN PRN Reason: Constipation Mirtazapine (Mirtazapine 15 Mg Tablet) 15 mg PO BEDTIME [facility] Last Admin: 05/14/21 20:01 Dose: 15 mg Documented by: Pt Own Med Odefsey 1 each PO BEDTIME [facility] Last Admin: 05/14/21 20:01 Dose: 1 each Documented by: Olanzapine (Olanzapine 10 Mg Vial) 20 mg IM BEDTIME PRN PRN Reason: refuses PO, as per Milo valdovinos Last Admin: 05/01/21 23:17 Dose: 20 mg Documented by: Olanzapine (Olanzapine Odt 10 Mg Tab.Rapdis) 30 mg TRANSLINGU BEDTIME [facility] Last Admin: 05/14/21 20:01 Dose: 30 mg Documented by: Allergies Allergies Allergy/AdvReac Type Severity Reaction Status Date / Time No Known Allergies Allergy Unverified 01/28/20 16:07 [No Known Allergies*] Assessment & Plan Assessment & Plan (1) Schizoaffective disorder, bipolar type: Status: Acute Code(s): F25.0 - Schizoaffective disorder, bipolar type (2) Dementia: Status: Acute Code(s): F03.90 - Unspecified dementia without behavioral disturbance Assessment and Plan: Pt is a 65 y.o. male who carries a dx of bipolar disorder, however sx are more in line with schizoaffective disorder bipolar type, as he presents with disorganized thought content, agitation, and paranoia. He has mild cognitive impairment r/t dementia and mental health dx. He is currently non-adherent with PO medications and is presenting from [facility] with decompensation in sx. He was aggressive on transport and required IM haldol, however since arriving to the unit he has been med compliant and pleasant. Last received haldol dec on 03/30/21. Has community Jass's Order in chart. Seroquel and risperdal are listed as alternatives. Plan: Pt will continue on OP med regimen at this time. Changed zyprexa to bedtime. Monitor response to medications. Monitor for safety in the milieu. Discharge on stabilization. Patient seen. Chart reviewed. Discussed with team. Obtain collateral contact info?as needed An affidavit was filled since the guardian was not being able to be contacted, he has a hearing soon and our workers compensation attorney will be the legal guardian. Haldol Decanoate increased up to 75 mg IM with the addition of Haldol p.o. 5 mg p.o. q.h.s. Zyprexa titrated up to 30 mg p.o. q.h.s. Continue Haldol and olanzapine Keppra Discharge planning Keppra level for today Current note for 05/13/2021 Continue Haldol olanzapine Keppra patient has not have seizure Keppra level somewhat decreased encourage compliance patient with a much horton range of affect 05-14-21 Continue plan of care I spent minutes with the patient and/or on the patient floor today, greater than?50% of which was spent counseling/coordinating care. Reason for contiued inpatient stay Substantial Risk for: rapid decompensation
[2021-05-15 06:00] VITALS: BP 122/86; PULSE 94; RESP 16; TEMP 37.3; O2SAT 95
[2021-05-15] MEDS: amLODIPine Besylate 2.5 MG TABLET PO (10:13)
[2021-05-15] MEDS: Ergocalciferol (Vitamin D2) 1,250 MCG CAPSULE 1250 MCG PO (10:14)
[2021-05-15] MEDS: levETIRAcetam 500 MG TABLET PO ×2 (10:14→20:14)
[2021-05-15] MEDS: hydroCHLOROthiazide 12.5 MG TABLET PO (10:14)
[2021-05-15 10:51] LABS: Influenza A PCR NEGATIVE (Negative); Influenza B PCR NEGATIVE (Negative); Resp Syncy Virus RNA Qual PCR NEGATIVE (Negative); SARS COV2 PCR INHOUSE NEGATIVE (Negative)
--- NOTE | 2021-05-15 16:34 | P.PNPSI_ITS ---
Subjective Subjective Date of Service: 05/15/21 Reason For Visit: Delusions Subjective Notes: Conditional Voluntary Interim History: The nursing staff reports that the patient is less irritable, his even coherent and he has been more visible in the unit. Now he is eating between 70-80% of his meals. On interview, the patient is pleasant and cooperative, confused at times. Mental Status Exam Mental Status Exam Patient Appearance: Disheveled Patient Orientation: Person Level of Consciousness: Awake Patient Behavior: Guarded Mood Description: Withdrawn Affect Description: Constricted Ability to Follow Directions: Good Speech Pattern: Clear Hallucinations: None Delusions: Paranoid Ideation Thought Process: Evasive Thought Content: positive for Loose Associations Judgement: Fair Diagnostics Vital Signs (24Hr): Vital Signs - 24 hr 05/14/21 19:30 05/15/21 06:00 Temperature 97.3 F 99.1 F Pulse Rate 92 94 Respiratory Rate 18 16 Blood Pressure 132/88 122/86 Pulse Oximetry 96 95 BMI result Body Mass Index 20.3 Labs Results: 03/31/21 21:09 03/31/21 21:09 Labs: Laboratory Results - last 48 hr 05/15/21 09:50 Influenza Type A (PCR) NEGATIVE Influenza Type B (PCR) NEGATIVE RSV RNA Qual (PCR) NEGATIVE SARS-CoV-2 RNA (RT-PCR) NEGATIVE Medications Medications Current Medications Acetaminophen (Acetaminophen 325 Mg Tablet) 650 mg PO Q6H PRN PRN Reason: Headache/Pain Mild Scale (1-3) Last Admin: 05/11/21 20:02 Dose: 650 mg Documented by: Al Hydroxide/Mg Hydroxide (Magnesium Hydrox/Alum Hydrox 30 Ml Oral.Susp) 30 ml PO Q6H PRN PRN Reason: Heartburn/Nausea Amlodipine Besylate (Amlodipine Besylate 2.5 Mg Tablet) 2.5 mg PO DAILY [facility]; Protocol Last Admin: 05/15/21 10:13 Dose: 2.5 mg Documented by: Clonidine HCl (Clonidine Hcl 0.1 Mg Tablet) 0.1 mg PO Q2H PRN; Protocol PRN Reason: SBP > 150 Last Admin: 04/05/21 21:47 Dose: 0.1 mg Documented by: Ergocalciferol (Ergocalciferol (Vitamin D2) 1,250 Mcg Capsule) 1,250 mcg PO MO [facility] Last Admin: 05/15/21 10:14 Dose: 1,250 mcg Documented by: Haloperidol (Haloperidol 5 Mg Tablet) 5 mg PO BEDTIME [facility] Last Admin: 05/14/21 20:01 Dose: 5 mg Documented by: Haloperidol Decanoate (Haloperidol Decanoate 50 Mg/Ml Ampul) 75 mg IM Q28D [facility] Last Admin: 04/25/21 11:49 Dose: 75 mg Documented by: Hydrochlorothiazide (Hydrochlorothiazide 12.5 Mg Tablet) 12.5 mg PO DAILY [facility]; Protocol Last Admin: 05/15/21 10:14 Dose: 12.5 mg Documented by: Hydroxyzine HCl (Hydroxyzine Hcl 25 Mg Tablet) 25 mg PO Q6H PRN PRN Reason: Anxiety Last Admin: 05/10/21 08:26 Dose: 25 mg Documented by: Levetiracetam (Levetiracetam 500 Mg Tablet) 500 mg PO BID [facility] Last Admin: 05/15/21 10:14 Dose: 500 mg Documented by: Loperamide HCl (Loperamide Hcl 2 Mg Capsule) 2 mg PO Q6H PRN PRN Reason: Constipation Magnesium Hydroxide (Milk Of Magnesia 30 Ml Oral.Susp) 30 ml PO DAILY PRN PRN Reason: Constipation Last Admin: 05/01/21 06:49 Dose: 30 ml Documented by: Magnesium Hydroxide (Milk Of Magnesia 30 Ml Oral.Susp) 30 ml PO DAILY PRN PRN Reason: Constipation Mirtazapine (Mirtazapine 15 Mg Tablet) 15 mg PO BEDTIME [facility] Last Admin: 05/14/21 20:01 Dose: 15 mg Documented by: Pt Own Med Odefsey 1 each PO BEDTIME [facility] Last Admin: 05/14/21 20:01 Dose: 1 each Documented by: Olanzapine (Olanzapine 10 Mg Vial) 20 mg IM BEDTIME PRN PRN Reason: refuses PO, as per Milo valdovinos Last Admin: 05/01/21 23:17 Dose: 20 mg Documented by: Olanzapine (Olanzapine Odt 10 Mg Tab.Rapdis) 30 mg TRANSLINGU BEDTIME [facility] Last Admin: 05/14/21 20:01 Dose: 30 mg Documented by: Allergies Allergies Allergy/AdvReac Type Severity Reaction Status Date / Time No Known Allergies Allergy Unverified 01/28/20 16:07 [No Known Allergies*] Assessment & Plan Assessment & Plan (1) Schizoaffective disorder, bipolar type: Status: Acute Code(s): F25.0 - Schizoaffective disorder, bipolar type (2) Dementia: Status: Acute Code(s): F03.90 - Unspecified dementia without behavioral disturbance Assessment and Plan: Pt is a 65 y.o. male who carries a dx of bipolar disorder, however sx are more in line with schizoaffective disorder bipolar type, as he presents with disorganized thought content, agitation, and paranoia. He has mild cognitive impairment r/t dementia and mental health dx. He is currently non-adherent with PO medications and is [facility] with decompensation in sx. He was aggressive on transport and required IM haldol, however since arriving to the unit he has been med compliant and pleasant. Last received haldol dec on 03/30/21. Has [facility] Order in chart. Seroquel and risperdal are listed as alternatives. Plan: Pt will continue on OP med regimen at this time. Changed zyprexa to bedtime. Monitor response to medications. Monitor for safety in the milieu. Discharge on stabilization. Patient seen. Chart reviewed. Discussed with team. Obtain collateral contact info?as needed An affidavit was filled since the guardian was not being able to be contacted, he has a hearing soon and our straightening machine feeder will be the legal guardian. Haldol Decanoate increased up to 75 mg IM with the addition of Haldol p.o. 5 mg p.o. q.h.s. Zyprexa titrated up to 30 mg p.o. q.h.s. Continue Haldol and olanzapine Keppra Discharge planning Keppra level for today Current note for 05/13/2021 Continue Haldol olanzapine Keppra patient has not have seizure Keppra level somewhat decreased encourage compliance patient with a much horton range of affect 05-14-21 Continue plan of care I spent minutes with the patient and/or on the patient floor today, greater than?50% of which was spent counseling/coordinating care. Reason for contiued inpatient stay Substantial Risk for: inability to function, rapid decompensation and med/psych decompensation
[2021-05-15 19:57] VITALS: BP 114/84; PULSE 100; RESP 17; TEMP 37; O2SAT 97
[2021-05-15] MEDS: OLANZapine ODT 10 MG TAB.RAPDIS 30 MG TRANSLINGU (20:14)
[2021-05-15] MEDS: Mirtazapine 15 MG TABLET PO (20:14)
[2021-05-15] MEDS: HaloperidoL 5 MG TABLET PO (20:14)
--- NOTE | 2021-05-16 14:37 | P.PNPSI_ITS ---
Subjective Subjective Date of Service: 05/16/21 Reason For Visit: Delusions Subjective Notes: Conditional Voluntary Healthcare Proxy: Yes Guardianship: Yes Interim History: The nursing staff reported no new symptoms, he has been eatining his meals. he was found spitting his medications and his Keppra level was negative. On interview, he denied new symptoms, he was pleasant and cooperative but confused at times. Mental Status Exam Mental Status Exam Patient Appearance: Disheveled and Unkempt Patient Orientation: Person Level of Consciousness: Awake Patient Behavior: Cooperative Mood Description: Constricted Affect Description: Calm Patient Cognition Impaired: Yes Ability to Follow Directions: Good Speech Pattern: Clear Hallucinations: None Delusions: Paranoid Ideation Thought Process: Distracted Thought Content: positive for Circumstantial and positive for Poverty of Content Judgement: Fair Diagnostics Vital Signs (24Hr): Vital Signs - 24 hr 05/15/21 19:57 Temperature 98.6 F Pulse Rate 100 Respiratory Rate 17 Blood Pressure 114/84 Pulse Oximetry 97 BMI result Body Mass Index 20.3 Labs Results: 03/31/21 21:09 03/31/21 21:09 Labs: Laboratory Results - last 48 hr 05/15/21 09:50 Influenza Type A (PCR) NEGATIVE Influenza Type B (PCR) NEGATIVE RSV RNA Qual (PCR) NEGATIVE SARS-CoV-2 RNA (RT-PCR) NEGATIVE Medications Medications Current Medications Acetaminophen (Acetaminophen 325 Mg Tablet) 650 mg PO Q6H PRN PRN Reason: Headache/Pain Mild Scale (1-3) Last Admin: 05/11/21 20:02 Dose: 650 mg Documented by: Al Hydroxide/Mg Hydroxide (Magnesium Hydrox/Alum Hydrox 30 Ml Oral.Susp) 30 ml PO Q6H PRN PRN Reason: Heartburn/Nausea Amlodipine Besylate (Amlodipine Besylate 2.5 Mg Tablet) 2.5 mg PO DAILY [facility]; Protocol Last Admin: 05/16/21 08:57 Dose: Not Given Documented by: Clonidine HCl (Clonidine Hcl 0.1 Mg Tablet) 0.1 mg PO Q2H PRN; Protocol PRN Reason: SBP > 150 Last Admin: 04/05/21 21:47 Dose: 0.1 mg Documented by: Ergocalciferol (Ergocalciferol (Vitamin D2) 1,250 Mcg Capsule) 1,250 mcg PO MO [facility] Last Admin: 05/15/21 10:14 Dose: 1,250 mcg Documented by: Haloperidol (Haloperidol 5 Mg Tablet) 5 mg PO BEDTIME [facility] Last Admin: 05/15/21 20:14 Dose: 5 mg Documented by: Haloperidol Decanoate (Haloperidol Decanoate 50 Mg/Ml Ampul) 75 mg IM Q28D [facility] Last Admin: 04/25/21 11:49 Dose: 75 mg Documented by: Hydrochlorothiazide (Hydrochlorothiazide 12.5 Mg Tablet) 12.5 mg PO DAILY [facility]; Protocol Last Admin: 05/16/21 08:57 Dose: Not Given Documented by: Hydroxyzine HCl (Hydroxyzine Hcl 25 Mg Tablet) 25 mg PO Q6H PRN PRN Reason: Anxiety Last Admin: 05/10/21 08:26 Dose: 25 mg Documented by: Loperamide HCl (Loperamide Hcl 2 Mg Capsule) 2 mg PO Q6H PRN PRN Reason: Constipation Magnesium Hydroxide (Milk Of Magnesia 30 Ml Oral.Susp) 30 ml PO DAILY PRN PRN Reason: Constipation Last Admin: 05/01/21 06:49 Dose: 30 ml Documented by: Magnesium Hydroxide (Milk Of Magnesia 30 Ml Oral.Susp) 30 ml PO DAILY PRN PRN Reason: Constipation Mirtazapine (Mirtazapine 15 Mg Tablet) 15 mg PO BEDTIME [facility] Last Admin: 05/15/21 20:14 Dose: 15 mg Documented by: Pt Own Med Odefsey 1 each PO BEDTIME [facility] Last Admin: 05/15/21 20:14 Dose: 1 each Documented by: Olanzapine (Olanzapine 10 Mg Vial) 20 mg IM BEDTIME PRN PRN Reason: refuses PO, as per Milo valdovinos Last Admin: 05/01/21 23:17 Dose: 20 mg Documented by: Olanzapine (Olanzapine Odt 10 Mg Tab.Rapdis) 30 mg TRANSLINGU BEDTIME [facility] Last Admin: 05/15/21 20:14 Dose: 30 mg Documented by: Allergies Allergies Allergy/AdvReac Type Severity Reaction Status Date / Time No Known Allergies Allergy Unverified 01/28/20 16:07 [No Known Allergies*] Assessment & Plan Assessment & Plan (1) Schizoaffective disorder, bipolar type: Status: Acute Code(s): F25.0 - Schizoaffective disorder, bipolar type (2) Dementia: Status: Acute Code(s): F03.90 - Unspecified dementia without behavioral disturbance Assessment and Plan: Pt is a 65 y.o. male who carries a dx of bipolar disorder, however sx are more in line with schizoaffective disorder bipolar type, as he presents with disorganized thought content, agitation, and paranoia. He has mild cognitive impairment r/t dementia and mental health dx. He is currently non-adherent with PO medications and is [facility] with decompensation in sx. He was aggressive on transport and required IM haldol, however since arriving to the unit he has been med compliant and pleasant. Last received haldol dec on 03/30/21. Has [facility] Order in chart. Seroquel and risperdal are listed as alternatives. Plan: Pt will continue on OP med regimen at this time. Changed zyprexa to bedtime. Monitor response to medications. Monitor for safety in the milieu. Discharge on stabilization. Patient seen. Chart reviewed. Discussed with team. Obtain collateral contact info?as needed An affidavit was filled since the guardian was not being able to be contacted, he has a hearing soon and our internal combustion engine inspector will be the legal guardian. Haldol Decanoate increased up to 75 mg IM with the addition of Haldol p.o. 5 mg p.o. q.h.s. Zyprexa titrated up to 30 mg p.o. q.h.s. Continue Haldol and olanzapine Discontinue Keppra since the patietn is not complinat. Start Depakote Discharge planning Keppra level that came back negative. I spent minutes with the patient and/or on the patient floor today, greater than?50% of which was spent counseling/coordinating care. Reason for contiued inpatient stay Substantial Risk for: inability to function, rapid decompensation and med/psych decompensation
[2021-05-16] MEDS: OLANZapine ODT 10 MG TAB.RAPDIS 30 MG TRANSLINGU (20:03)
[2021-05-16] MEDS: HaloperidoL 5 MG TABLET PO (20:03)
[2021-05-16] MEDS: Mirtazapine 15 MG TABLET PO (20:04)
[2021-05-16 20:07] VITALS: BP 125/71; PULSE 85; RESP 18; TEMP 36.8; O2SAT 96
[2021-05-17 08:00] VITALS: BP 100/70; PULSE 86; TEMP 35.9; O2SAT 98
[2021-05-17] MEDS: amLODIPine Besylate 2.5 MG TABLET PO (08:20)
[2021-05-17] MEDS: hydrOXYzine HCL 25 MG TABLET PO (08:20)
[2021-05-17] MEDS: hydroCHLOROthiazide 12.5 MG TABLET PO (08:20)
--- NOTE | 2021-05-17 13:50 | HO.PSYCHPN ---
Subjective Subjective Date of Service: 05/17/21 Reason For Visit: Delusions Subjective Notes: Conditional Voluntary Healthcare Proxy: Yes Guardianship: Yes Interim History: The nursing staff reported that the patient has been pleasant and cooperative. He has been eating all his meals and he was engaged on meaningful conversations. Yesterday, he asked for a shower. On interview, he was superficially engagable, no evidence of exacerbation of psychosis. Mental Status Exam Mental Status Exam Patient Appearance: Disheveled Patient Orientation: Person Level of Consciousness: Awake Patient Behavior: Cooperative and Suspicious Mood Description: Withdrawn Affect Description: Constricted Patient Cognition Impaired: Yes Ability to Follow Directions: Good Speech Pattern: Clear Hallucinations: None Delusions: Paranoid Ideation Thought Process: Distracted and Linear Thought Content: positive for Circumstantial and positive for Poverty of Content Judgement: Fair Diagnostics Vital Signs (24Hr): Vital Signs - 24 hr 05/16/21 20:07 05/17/21 08:00 Temperature 98.2 F 96.7 F L Pulse Rate 85 86 Respiratory Rate 18 Blood Pressure 125/71 100/70 Pulse Oximetry 96 98 BMI result Body Mass Index 20.3 Labs Results: 03/31/21 21:09 03/31/21 21:09 Medications Medications Current Medications Acetaminophen (Acetaminophen 325 Mg Tablet) 650 mg PO Q6H PRN PRN Reason: Headache/Pain Mild Scale (1-3) Last Admin: 05/11/21 20:02 Dose: 650 mg Documented by: Al Hydroxide/Mg Hydroxide (Magnesium Hydrox/Alum Hydrox 30 Ml Oral.Susp) 30 ml PO Q6H PRN PRN Reason: Heartburn/Nausea Amlodipine Besylate (Amlodipine Besylate 2.5 Mg Tablet) 2.5 mg PO DAILY [facility]; Protocol Last Admin: 05/17/21 08:20 Dose: 2.5 mg Documented by: Clonidine HCl (Clonidine Hcl 0.1 Mg Tablet) 0.1 mg PO Q2H PRN; Protocol PRN Reason: SBP > 150 Last Admin: 04/05/21 21:47 Dose: 0.1 mg Documented by: Ergocalciferol (Ergocalciferol (Vitamin D2) 1,250 Mcg Capsule) 1,250 mcg PO MO [facility] Last Admin: 05/15/21 10:14 Dose: 1,250 mcg Documented by: Haloperidol (Haloperidol 5 Mg Tablet) 5 mg PO BEDTIME [facility] Last Admin: 05/16/21 20:03 Dose: 5 mg Documented by: Haloperidol Decanoate (Haloperidol Decanoate 50 Mg/Ml Ampul) 75 mg IM Q28D [facility] Last Admin: 04/25/21 11:49 Dose: 75 mg Documented by: Hydrochlorothiazide (Hydrochlorothiazide 12.5 Mg Tablet) 12.5 mg PO DAILY [facility]; Protocol Last Admin: 05/17/21 08:20 Dose: 12.5 mg Documented by: Hydroxyzine HCl (Hydroxyzine Hcl 25 Mg Tablet) 25 mg PO Q6H PRN PRN Reason: Anxiety Last Admin: 05/17/21 08:20 Dose: 25 mg Documented by: Loperamide HCl (Loperamide Hcl 2 Mg Capsule) 2 mg PO Q6H PRN PRN Reason: Constipation Magnesium Hydroxide (Milk Of Magnesia 30 Ml Oral.Susp) 30 ml PO DAILY PRN PRN Reason: Constipation Last Admin: 05/01/21 06:49 Dose: 30 ml Documented by: Magnesium Hydroxide (Milk Of Magnesia 30 Ml Oral.Susp) 30 ml PO DAILY PRN PRN Reason: Constipation Mirtazapine (Mirtazapine 15 Mg Tablet) 15 mg PO BEDTIME [facility] Last Admin: 05/16/21 20:04 Dose: 15 mg Documented by: Pt Own Med Odefsey 1 each PO BEDTIME [facility] Last Admin: 05/16/21 20:04 Dose: 1 each Documented by: Olanzapine (Olanzapine 10 Mg Vial) 20 mg IM BEDTIME PRN PRN Reason: refuses PO, as per Milo valdovinos Last Admin: 05/01/21 23:17 Dose: 20 mg Documented by: Olanzapine (Olanzapine Odt 10 Mg Tab.Rapdis) 30 mg TRANSLINGU BEDTIME [facility] Last Admin: 05/16/21 20:03 Dose: 30 mg Documented by: Valproic Acid (Valproic Acid (As Sodium Salt) 250 Mg/5 Ml Solution) 125 mg PO TID [facility] Last Admin: 05/17/21 08:20 Dose: 125 mg Documented by: Allergies Allergies Allergy/AdvReac Type Severity Reaction Status Date / Time No Known Allergies Allergy Unverified 01/28/20 16:07 [No Known Allergies*] Assessment & Plan Assessment & Plan (1) Schizoaffective disorder, bipolar type: Status: Acute Code(s): F25.0 - Schizoaffective disorder, bipolar type (2) Dementia: Status: Acute Code(s): F03.90 - Unspecified dementia without behavioral disturbance Assessment and Plan: Pt is a 65 y.o. male who carries a dx of bipolar disorder, however sx are more in line with schizoaffective disorder bipolar type, as he presents with disorganized thought content, agitation, and paranoia. He has mild cognitive impairment r/t dementia and mental health dx. He is currently non-adherent with PO medications and is [facility] with decompensation in sx. He was aggressive on transport and required IM haldol, however since arriving to the unit he has been med compliant and pleasant. Last received haldol dec on 03/30/21. Has [facility] Order in chart. Seroquel and risperdal are listed as alternatives. Plan: Pt will continue on OP med regimen at this time. Changed zyprexa to bedtime. Monitor response to medications. Monitor for safety in the milieu. Discharge on stabilization. Patient seen. Chart reviewed. Discussed with team. Obtain collateral contact info?as needed An affidavit was filled since the guardian was not being able to be contacted, he has a hearing soon and our deputy attorney general will be the legal guardian. Haldol Decanoate increased up to 75 mg IM with the addition of Haldol p.o. 5 mg p.o. q.h.s. Zyprexa titrated up to 30 mg p.o. q.h.s. Continue Haldol and olanzapine Discontinue Keppra since the patietn is not complinat. Discharge planning Keppra level that came back negative so we stopped it and Start Depakote I spent minutes with the patient and/or on the patient floor today, greater than?50% of which was spent counseling/coordinating care. Reason for contiued inpatient stay Substantial Risk for: harm to others, inability to function, rapid decompensation and med/psych decompensation
--- NOTE | 2021-05-17 13:58 | MHC.CLN ---
F/U HX OF POOR INTAKE AT MEALS BUT STAFF REPORTS HE IS EATING BETTER. CONTINUE TO SEND 2 ENSURE SUPPLEMENTS AT EACH MEAL. 6 ENSURE ENLIVE SUPPLEMENTS PROVIDE 2100 KCALS, 120 G PROTEIN. SKIN: NO PRESSURE AREAS. CONTINUE TO FOLLOW WEEKLY.
[2021-05-17 18:00] VITALS: BP 136/86; PULSE 109; RESP 19; TEMP 36.6; O2SAT 94
[2021-05-17] MEDS: HaloperidoL 5 MG TABLET PO (20:01)
[2021-05-17] MEDS: OLANZapine ODT 10 MG TAB.RAPDIS 30 MG TRANSLINGU (20:01)
[2021-05-17] MEDS: Mirtazapine 15 MG TABLET PO (20:02)
[2021-05-18 07:00] VITALS: BMI 17.6
[2021-05-18 08:00] VITALS: BP 119/67; PULSE 93; RESP 18; TEMP 36.8; O2SAT 95
[2021-05-18] MEDS: hydroCHLOROthiazide 12.5 MG TABLET PO (08:16)
[2021-05-18] MEDS: hydrOXYzine HCL 25 MG TABLET PO (08:16)
[2021-05-18] MEDS: amLODIPine Besylate 2.5 MG TABLET PO (08:17)
[2021-05-18 09:56] LABS: Influenza A PCR NEGATIVE (Negative); Influenza B PCR NEGATIVE (Negative); Resp Syncy Virus RNA Qual PCR NEGATIVE (Negative); SARS COV2 PCR INHOUSE NEGATIVE (Negative)
--- NOTE | 2021-05-18 12:58 | P.PNPSI_ITS ---
Subjective Subjective Date of Service: 05/18/21 Reason For Visit: Delusions Subjective Notes: Conditional Voluntary Guardianship: Yes Interim History: The nursing staff reported that he is more social and able to cope with the restricitions of COVID-19 protocol. He tries to refuse medications but he is aware that he has a Pedraza order. On interview, he denied new symptoms. Mental Status Exam Mental Status Exam Patient Appearance: Disheveled and Unkempt Patient Orientation: Person Level of Consciousness: Awake Patient Behavior: Cooperative Mood Description: Labile Affect Description: Constricted Patient Cognition Impaired: Yes Ability to Follow Directions: Good Speech Pattern: Clear Hallucinations: None Delusions: Paranoid Ideation Thought Process: Linear Thought Content: positive for Circumstantial Judgement: Fair Diagnostics Vital Signs (24Hr): Vital Signs - 24 hr 05/17/21 18:00 05/18/21 08:00 Temperature 97.8 F 98.2 F Pulse Rate 109 H 93 Respiratory Rate 19 18 Blood Pressure 136/86 119/67 Pulse Oximetry 94 95 BMI result Body Mass Index 17.6 Labs Results: 03/31/21 21:09 03/31/21 21:09 Labs: Laboratory Results - last 48 hr 05/18/21 09:00 Influenza Type A (PCR) NEGATIVE Influenza Type B (PCR) NEGATIVE RSV RNA Qual (PCR) NEGATIVE SARS-CoV-2 RNA (RT-PCR) NEGATIVE Medications Medications Current Medications Acetaminophen (Acetaminophen 325 Mg Tablet) 650 mg PO Q6H PRN PRN Reason: Headache/Pain Mild Scale (1-3) Last Admin: 05/11/21 20:02 Dose: 650 mg Documented by: Al Hydroxide/Mg Hydroxide (Magnesium Hydrox/Alum Hydrox 30 Ml Oral.Susp) 30 ml PO Q6H PRN PRN Reason: Heartburn/Nausea Amlodipine Besylate (Amlodipine Besylate 2.5 Mg Tablet) 2.5 mg PO DAILY [facility]; Protocol Last Admin: 05/18/21 08:17 Dose: 2.5 mg Documented by: Clonidine HCl (Clonidine Hcl 0.1 Mg Tablet) 0.1 mg PO Q2H PRN; Protocol PRN Reason: SBP > 150 Last Admin: 04/05/21 21:47 Dose: 0.1 mg Documented by: Ergocalciferol (Ergocalciferol (Vitamin D2) 1,250 Mcg Capsule) 1,250 mcg PO MO [facility] Last Admin: 05/15/21 10:14 Dose: 1,250 mcg Documented by: Haloperidol (Haloperidol 5 Mg Tablet) 5 mg PO BEDTIME [facility] Last Admin: 05/17/21 20:01 Dose: 5 mg Documented by: Haloperidol Decanoate (Haloperidol Decanoate 50 Mg/Ml Ampul) 75 mg IM Q28D [facility] Last Admin: 04/25/21 11:49 Dose: 75 mg Documented by: Hydrochlorothiazide (Hydrochlorothiazide 12.5 Mg Tablet) 12.5 mg PO DAILY [facility]; Protocol Last Admin: 05/18/21 08:16 Dose: 12.5 mg Documented by: Hydroxyzine HCl (Hydroxyzine Hcl 25 Mg Tablet) 25 mg PO Q6H PRN PRN Reason: Anxiety Last Admin: 05/18/21 08:16 Dose: 25 mg Documented by: Loperamide HCl (Loperamide Hcl 2 Mg Capsule) 2 mg PO Q6H PRN PRN Reason: Constipation Magnesium Hydroxide (Milk Of Magnesia 30 Ml Oral.Susp) 30 ml PO DAILY PRN PRN Reason: Constipation Last Admin: 05/01/21 06:49 Dose: 30 ml Documented by: Magnesium Hydroxide (Milk Of Magnesia 30 Ml Oral.Susp) 30 ml PO DAILY PRN PRN Reason: Constipation Mirtazapine (Mirtazapine 15 Mg Tablet) 15 mg PO BEDTIME [facility] Last Admin: 05/17/21 20:02 Dose: 15 mg Documented by: Pt Own Med Odefsey 1 each PO BEDTIME [facility] Last Admin: 05/17/21 20:01 Dose: 1 each Documented by: Olanzapine (Olanzapine 10 Mg Vial) 20 mg IM BEDTIME PRN PRN Reason: refuses PO, as per Milo valdovinos Last Admin: 05/01/21 23:17 Dose: 20 mg Documented by: Olanzapine (Olanzapine Odt 10 Mg Tab.Rapdis) 30 mg TRANSLINGU BEDTIME [facility] Last Admin: 05/17/21 20:01 Dose: 30 mg Documented by: Valproic Acid (Valproic Acid (As Sodium Salt) 250 Mg/5 Ml Solution) 125 mg PO TID [facility] Last Admin: 05/18/21 08:17 Dose: 125 mg Documented by: Allergies Allergies Allergy/AdvReac Type Severity Reaction Status Date / Time No Known Allergies Allergy Unverified 01/28/20 16:07 [No Known Allergies*] Assessment & Plan Assessment & Plan (1) Schizoaffective disorder, bipolar type: Status: Acute Code(s): F25.0 - Schizoaffective disorder, bipolar type (2) Dementia: Status: Acute Code(s): F03.90 - Unspecified dementia without behavioral disturbance Assessment and Plan: Pt is a 65 y.o. male who carries a dx of bipolar disorder, however sx are more in line with schizoaffective disorder bipolar type, as he presents with disorganized thought content, agitation, and paranoia. He has mild cognitive impairment r/t dementia and mental health dx. He is currently non-adherent with PO medications and is [facility] with decomp[facility] in sx. He was aggressive on transport and required IM haldol, however since arriving to the unit he has been med compliant and pleasant. Last received haldol dec on 03/30/21. [facility] in [facility]. Seroquel and risperdal are listed as alternatives. Plan: Pt will continue on OP med regimen at this time. Changed zyprexa to bedtime. Monitor response to medications. Monitor for safety in the milieu. Discharge on stabilization. Patient seen. Chart reviewed. Discussed with team. Obtain collateral contact info?as needed An affidavit was filled since the guardian was not being able to be contacted, he has a hearing soon and our assistant city attorney will be the legal guardian. Haldol Decanoate increased up to 75 mg IM with the addition of Haldol p.o. 5 mg p.o. q.h.s. Zyprexa titrated up to 30 mg p.o. q.h.s. Continue Haldol and olanzapine Discontinue Keppra since the patietn is not complinat. Discharge planning Keppra level that came back negative so we stopped it and Start Depakote I spent minutes with the patient and/or on the patient floor today, greater than?50% of which was spent counseling/coordinating care. Reason for contiued inpatient stay Substantial Risk for: harm to others, inability to function, rapid decompensation and med/psych decompensation
[2021-05-18 19:44] VITALS: BP 108/60; PULSE 99; RESP 18; TEMP 36.6; O2SAT 93
[2021-05-18] MEDS: HaloperidoL 5 MG TABLET PO (20:02)
[2021-05-18] MEDS: OLANZapine ODT 10 MG TAB.RAPDIS 30 MG TRANSLINGU (20:02)
[2021-05-18] MEDS: Mirtazapine 15 MG TABLET PO (20:02)
[2021-05-19] MEDS: hydroCHLOROthiazide 12.5 MG TABLET PO (09:30)
[2021-05-19] MEDS: amLODIPine Besylate 2.5 MG TABLET PO (09:30)
[2021-05-19 09:36] VITALS: BP 96/61; PULSE 85; RESP 16; TEMP 36.6; O2SAT 97
[2021-05-19 11:33] LABS: Influenza A PCR NEGATIVE (Negative); Influenza B PCR NEGATIVE (Negative); Resp Syncy Virus RNA Qual PCR NEGATIVE (Negative); SARS COV2 PCR INHOUSE NEGATIVE (Negative)
--- NOTE | 2021-05-19 15:37 | P.PNPSI_ITS ---
Subjective Subjective Date of Service: 05/19/21 Reason For Visit: Delusions Subjective Notes: Conditional Voluntary Interim History: The nursing staff reports the patient tries to cheek his medications. He refused his Depakote in the afternoon yesterday. On interview, the patient is pleasant and cooperative no new symptoms, pleasantly confused and easily redirectable. Mental Status Exam Mental Status Exam Patient Appearance: Disheveled Patient Orientation: Person Level of Consciousness: Awake Patient Behavior: Guarded and Passive Mood Description: Constricted Affect Description: Constricted Patient Cognition Impaired: Yes Ability to Follow Directions: Good Speech Pattern: Clear Hallucinations: None Delusions: Paranoid Ideation Thought Process: Distracted and Slowed Thinking Thought Content: positive for Thought Blocking Judgement: Fair Diagnostics Vital Signs (24Hr): Vital Signs - 24 hr 05/18/21 19:44 05/19/21 09:36 Temperature 97.9 F 97.8 F Pulse Rate 99 85 Respiratory Rate 18 16 Blood Pressure 108/60 96/61 Pulse Oximetry 93 97 BMI result Body Mass Index 17.6 Labs Results: 03/31/21 21:09 03/31/21 21:09 Labs: Laboratory Results - last 48 hr 05/18/21 05/19/21 09:00 10:10 Influenza Type A (PCR) NEGATIVE NEGATIVE Influenza Type B (PCR) NEGATIVE NEGATIVE RSV RNA Qual (PCR) NEGATIVE NEGATIVE SARS-CoV-2 RNA (RT-PCR) NEGATIVE NEGATIVE Medications Medications Current Medications Acetaminophen (Acetaminophen 325 Mg Tablet) 650 mg PO Q6H PRN PRN Reason: Headache/Pain Mild Scale (1-3) Last Admin: 05/11/21 20:02 Dose: 650 mg Documented by: Al Hydroxide/Mg Hydroxide (Magnesium Hydrox/Alum Hydrox 30 Ml Oral.Susp) 30 ml PO Q6H PRN PRN Reason: Heartburn/Nausea Amlodipine Besylate (Amlodipine Besylate 2.5 Mg Tablet) 2.5 mg PO DAILY [facility]; Protocol Last Admin: 05/19/21 09:30 Dose: 2.5 mg Documented by: Clonidine HCl (Clonidine Hcl 0.1 Mg Tablet) 0.1 mg PO Q2H PRN; Protocol PRN Reason: SBP > 150 Last Admin: 04/05/21 21:47 Dose: 0.1 mg Documented by: Ergocalciferol (Ergocalciferol (Vitamin D2) 1,250 Mcg Capsule) 1,250 mcg PO MO [facility] Last Admin: 05/15/21 10:14 Dose: 1,250 mcg Documented by: Haloperidol (Haloperidol 5 Mg Tablet) 5 mg PO BEDTIME [facility] Last Admin: 05/18/21 20:02 Dose: 5 mg Documented by: Haloperidol Decanoate (Haloperidol Decanoate 50 Mg/Ml Ampul) 75 mg IM Q28D [facility] Last Admin: 04/25/21 11:49 Dose: 75 mg Documented by: Hydrochlorothiazide (Hydrochlorothiazide 12.5 Mg Tablet) 12.5 mg PO DAILY [facility]; Protocol Last Admin: 05/19/21 09:30 Dose: 12.5 mg Documented by: Hydroxyzine HCl (Hydroxyzine Hcl 25 Mg Tablet) 25 mg PO Q6H PRN PRN Reason: Anxiety Last Admin: 05/18/21 08:16 Dose: 25 mg Documented by: Loperamide HCl (Loperamide Hcl 2 Mg Capsule) 2 mg PO Q6H PRN PRN Reason: Constipation Magnesium Hydroxide (Milk Of Magnesia 30 Ml Oral.Susp) 30 ml PO DAILY PRN PRN Reason: Constipation Last Admin: 05/01/21 06:49 Dose: 30 ml Documented by: Magnesium Hydroxide (Milk Of Magnesia 30 Ml Oral.Susp) 30 ml PO DAILY PRN PRN Reason: Constipation Mirtazapine (Mirtazapine 15 Mg Tablet) 15 mg PO BEDTIME [facility] Last Admin: 05/18/21 20:02 Dose: 15 mg Documented by: Pt Own Med Odefsey 1 each PO BEDTIME [facility] Last Admin: 05/18/21 20:03 Dose: 1 each Documented by: Olanzapine (Olanzapine 10 Mg Vial) 20 mg IM BEDTIME PRN PRN Reason: refuses PO, as per Milo valdovinos Last Admin: 05/01/21 23:17 Dose: 20 mg Documented by: Olanzapine (Olanzapine Odt 10 Mg Tab.Rapdis) 30 mg TRANSLINGU BEDTIME [facility] Last Admin: 05/18/21 20:02 Dose: 30 mg Documented by: Valproic Acid (Valproic Acid (As Sodium Salt) 250 Mg/5 Ml Solution) 125 mg PO TID [facility] Last Admin: 05/19/21 09:28 Dose: 125 mg Documented by: Allergies Allergies Allergy/AdvReac Type Severity Reaction Status Date / Time No Known Allergies Allergy Unverified 01/28/20 16:07 [No Known Allergies*] Assessment & Plan Assessment & Plan (1) Schizoaffective disorder, bipolar type: Status: Acute Code(s): F25.0 - Schizoaffective disorder, bipolar type (2) Dementia: Status: Acute Code(s): F03.90 - Unspecified dementia without behavioral disturbance Assessment and Plan: Pt is a 65 y.o. male who carries a dx of bipolar disorder, however sx are more in line with schizoaffective disorder bipolar type, as he presents with disorganized thought content, agitation, and paranoia. He has mild cognitive impairment r/t dementia and mental health dx. He is currently non-adherent with PO medications and is [facility] with decompensation in sx. He was aggressive on transport and required IM haldol, however since arriving to the unit he has been med compliant and pleasant. Last received haldol dec on 03/30/21. Has omar Regan's Order in chart. Seroquel and risperdal are listed as alternatives. Plan: Pt will continue on OP med regimen at this time. Changed zyprexa to bedtime. Monitor response to medications. Monitor for safety in the milieu. Discharge on stabilization. Patient seen. Chart reviewed. Discussed with team. Obtain collateral contact info?as needed An affidavit was filled since the guardian was not being able to be contacted, he has a hearing soon and our oil well gun perforator operator will be the legal guardian. Haldol Decanoate increased up to 75 mg IM with the addition of Haldol p.o. 5 mg p.o. q.h.s. Zyprexa titrated up to 30 mg p.o. q.h.s. Continue Haldol and olanzapine Discontinue Keppra since the patietn is not complinat. Discharge planning Keppra level that came back negative so we stopped it and Start Depakote To target seizures and mood lability I spent minutes with the patient and/or on the patient floor today, greater than?50% of which was spent counseling/coordinating care. Reason for contiued inpatient stay Substantial Risk for: inability to function, rapid decompensation and med/psych decompensation
[2021-05-19 18:00] VITALS: BP 89/51; PULSE 93; RESP 18; TEMP 36.6; O2SAT 98
[2021-05-19] MEDS: OLANZapine ODT 10 MG TAB.RAPDIS 30 MG TRANSLINGU (20:30)
[2021-05-19] MEDS: Mirtazapine 15 MG TABLET PO (20:30)
[2021-05-19] MEDS: HaloperidoL 5 MG TABLET PO (20:30)
[2021-05-20 08:44] VITALS: BP 109/67; PULSE 96; RESP 17; TEMP 36.6; O2SAT 96
[2021-05-20] MEDS: amLODIPine Besylate 2.5 MG TABLET PO (08:48)
[2021-05-20] MEDS: hydroCHLOROthiazide 12.5 MG TABLET PO (08:48)
--- NOTE | 2021-05-20 12:03 | HO.PSYCHPN ---
Subjective Subjective Date of Service: 05/20/21 Reason For Visit: Delusions Interim History: pt found resting in his bed. affable, no irritability. denies any problems has no questions. per staff, eating well. appears to be compliant with liquid VPA formulation. Mental Status Exam Mental Status Exam Narrative: adequately dressed and groomed. cooperative. good eye contact. no PMA/PMR. speech nml in rate, amount, loudness, tone, latency. thoughts linear and logical in brief interaction. affect full range, normo-intense, non-labile. no SI/HI/AVH expressed. Diagnostics Vital Signs (24Hr): Vital Signs - 24 hr 05/19/21 18:00 05/20/21 08:44 Temperature 98 F 97.8 F Pulse Rate 93 96 Respiratory Rate 18 17 Blood Pressure 89/51 L 109/67 Pulse Oximetry 98 96 BMI result Body Mass Index 17.6 Labs Results: 03/31/21 21:09 03/31/21 21:09 Labs: Laboratory Results - last 48 hr 05/19/21 10:10 Influenza Type A (PCR) NEGATIVE Influenza Type B (PCR) NEGATIVE RSV RNA Qual (PCR) NEGATIVE SARS-CoV-2 RNA (RT-PCR) NEGATIVE Medications Medications Current Medications Acetaminophen (Acetaminophen 325 Mg Tablet) 650 mg PO Q6H PRN PRN Reason: Headache/Pain Mild Scale (1-3) Last Admin: 05/11/21 20:02 Dose: 650 mg Documented by: Al Hydroxide/Mg Hydroxide (Magnesium Hydrox/Alum Hydrox 30 Ml Oral.Susp) 30 ml PO Q6H PRN PRN Reason: Heartburn/Nausea Amlodipine Besylate (Amlodipine Besylate 2.5 Mg Tablet) 2.5 mg PO DAILY [facility]; Protocol Last Admin: 05/20/21 08:48 Dose: 2.5 mg Documented by: Clonidine HCl (Clonidine Hcl 0.1 Mg Tablet) 0.1 mg PO Q2H PRN; Protocol PRN Reason: SBP > 150 Last Admin: 04/05/21 21:47 Dose: 0.1 mg Documented by: Ergocalciferol (Ergocalciferol (Vitamin D2) 1,250 Mcg Capsule) 1,250 mcg PO MO [facility] Last Admin: 05/15/21 10:14 Dose: 1,250 mcg Documented by: Haloperidol (Haloperidol 5 Mg Tablet) 5 mg PO BEDTIME [facility] Last Admin: 05/19/21 20:30 Dose: 5 mg Documented by: Haloperidol Decanoate (Haloperidol Decanoate 50 Mg/Ml Ampul) 75 mg IM Q28D [facility] Last Admin: 04/25/21 11:49 Dose: 75 mg Documented by: Hydrochlorothiazide (Hydrochlorothiazide 12.5 Mg Tablet) 12.5 mg PO DAILY [facility]; Protocol Last Admin: 05/20/21 08:48 Dose: 12.5 mg Documented by: Hydroxyzine HCl (Hydroxyzine Hcl 25 Mg Tablet) 25 mg PO Q6H PRN PRN Reason: Anxiety Last Admin: 05/18/21 08:16 Dose: 25 mg Documented by: Loperamide HCl (Loperamide Hcl 2 Mg Capsule) 2 mg PO Q6H PRN PRN Reason: Constipation Magnesium Hydroxide (Milk Of Magnesia 30 Ml Oral.Susp) 30 ml PO DAILY PRN PRN Reason: Constipation Last Admin: 05/01/21 06:49 Dose: 30 ml Documented by: Magnesium Hydroxide (Milk Of Magnesia 30 Ml Oral.Susp) 30 ml PO DAILY PRN PRN Reason: Constipation Mirtazapine (Mirtazapine 15 Mg Tablet) 15 mg PO BEDTIME [facility] Last Admin: 05/19/21 20:30 Dose: 15 mg Documented by: Pt Own Med Odefsey 1 each PO BEDTIME [facility] Last Admin: 05/19/21 20:29 Dose: 1 each Documented by: Olanzapine (Olanzapine 10 Mg Vial) 20 mg IM BEDTIME PRN PRN Reason: refuses PO, as per Milo valdovinos Last Admin: 05/01/21 23:17 Dose: 20 mg Documented by: Olanzapine (Olanzapine Odt 10 Mg Tab.Rapdis) 30 mg TRANSLINGU BEDTIME [facility] Last Admin: 05/19/21 20:30 Dose: 30 mg Documented by: Valproic Acid (Valproic Acid (As Sodium Salt) 250 Mg/5 Ml Solution) 125 mg PO TID [facility] Last Admin: 05/20/21 08:48 Dose: 125 mg Documented by: Allergies Allergies Allergy/AdvReac Type Severity Reaction Status Date / Time No Known Allergies Allergy Unverified 01/28/20 16:07 [No Known Allergies*] Assessment & Plan Assessment & Plan (1) Schizoaffective disorder, bipolar type: Status: Acute Code(s): F25.0 - Schizoaffective disorder, bipolar type (2) Dementia: Status: Acute Code(s): F03.90 - Unspecified dementia without behavioral disturbance Assessment and Plan: Pt is a 65 y.o. male who carries a dx of bipolar disorder, however sx are more in line with schizoaffective disorder bipolar type, as he presents with disorganized thought content, agitation, and paranoia. He has mild cognitive impairment r/t dementia and mental health dx. He is currently non-adherent with PO medications and is presenting [facility] with decompensation in sx. He was aggressive on transport and required IM haldol, however since arriving to the unit he has been med compliant and pleasant. Last received haldol dec on 03/30/21. Has [facility] Order in chart. Seroquel and risperdal are listed as alternatives. Plan: Pt will continue on OP med regimen at this time. Changed zyprexa to bedtime. Monitor response to medications. Monitor for safety in the milieu. Discharge on stabilization. Patient seen. Chart reviewed. Discussed with team. Obtain collateral contact info?as needed An affidavit was filled since the guardian was not being able to be contacted, he has a hearing soon and our attorney law clerk will be the legal guardian. Haldol Decanoate increased up to 75 mg IM with the addition of Haldol p.o. 5 mg p.o. q.h.s. Zyprexa titrated up to 30 mg p.o. q.h.s. Continue Haldol and olanzapine Discontinue Keppra since the patietn is not complinat. Discharge planning Keppra level that came back negative so we stopped it and Start Depakote To target seizures and mood lability I spent minutes with the patient and/or on the patient floor today, greater than?50% of which was spent counseling/coordinating care. Reason for contiued inpatient stay Substantial Risk for: inability to function and rapid decompensation
[2021-05-20 18:00] VITALS: BP 121/70; PULSE 96; RESP 18; TEMP 36.4; O2SAT 94
[2021-05-20] MEDS: OLANZapine ODT 10 MG TAB.RAPDIS 30 MG TRANSLINGU (20:53)
[2021-05-20] MEDS: Mirtazapine 15 MG TABLET PO (20:53)
[2021-05-20] MEDS: HaloperidoL 5 MG TABLET PO (20:53)
[2021-05-21 06:00] VITALS: BP 126/73; PULSE 92; RESP 15; TEMP 36; O2SAT 96
--- NOTE | 2021-05-21 13:12 | HO.PSYCHPN ---
Subjective Subjective Date of Service: 05/21/21 Reason For Visit: Delusions Interim History: pt found resting in his bed.? affable, no irritability.? denies any problems has no questions.? so-so. i can't complain. everything is copacetic. per staff, more talkative last NOC. denies anx/dep. refused meds today. Mental Status Exam Mental Status Exam Narrative: adequately dressed and groomed. cooperative. good eye contact. no PMA/PMR. speech nml in rate, amount, loudness, tone, latency. thoughts linear and logical in brief interaction. affect full range, normo-intense, non-labile. no SI/HI/AVH expressed. Diagnostics Vital Signs (24Hr): Vital Signs - 24 hr 05/20/21 18:00 05/21/21 06:00 Temperature 97.6 F 96.8 F Pulse Rate 96 92 Respiratory Rate 18 15 Blood Pressure 121/70 126/73 Pulse Oximetry 94 96 BMI result Body Mass Index 17.6 Labs Results: 03/31/21 21:09 03/31/21 21:09 Medications Medications Current Medications Acetaminophen (Acetaminophen 325 Mg Tablet) 650 mg PO Q6H PRN PRN Reason: Headache/Pain Mild Scale (1-3) Last Admin: 05/11/21 20:02 Dose: 650 mg Documented by: Al Hydroxide/Mg Hydroxide (Magnesium Hydrox/Alum Hydrox 30 Ml Oral.Susp) 30 ml PO Q6H PRN PRN Reason: Heartburn/Nausea Amlodipine Besylate (Amlodipine Besylate 2.5 Mg Tablet) 2.5 mg PO DAILY [facility]; Protocol Last Admin: 05/21/21 10:28 Dose: Not Given Documented by: Clonidine HCl (Clonidine Hcl 0.1 Mg Tablet) 0.1 mg PO Q2H PRN; Protocol PRN Reason: SBP > 150 Last Admin: 04/05/21 21:47 Dose: 0.1 mg Documented by: Ergocalciferol (Ergocalciferol (Vitamin D2) 1,250 Mcg Capsule) 1,250 mcg PO MO [facility] Last Admin: 05/15/21 10:14 Dose: 1,250 mcg Documented by: Haloperidol (Haloperidol 5 Mg Tablet) 5 mg PO BEDTIME [facility] Last Admin: 05/20/21 20:53 Dose: 5 mg Documented by: Haloperidol Decanoate (Haloperidol Decanoate 50 Mg/Ml Ampul) 75 mg IM Q28D [facility] Last Admin: 04/25/21 11:49 Dose: 75 mg Documented by: Hydrochlorothiazide (Hydrochlorothiazide 12.5 Mg Tablet) 12.5 mg PO DAILY [facility]; Protocol Last Admin: 05/21/21 10:28 Dose: Not Given Documented by: Hydroxyzine HCl (Hydroxyzine Hcl 25 Mg Tablet) 25 mg PO Q6H PRN PRN Reason: Anxiety Last Admin: 05/18/21 08:16 Dose: 25 mg Documented by: Loperamide HCl (Loperamide Hcl 2 Mg Capsule) 2 mg PO Q6H PRN PRN Reason: Constipation Magnesium Hydroxide (Milk Of Magnesia 30 Ml Oral.Susp) 30 ml PO DAILY PRN PRN Reason: Constipation Last Admin: 05/01/21 06:49 Dose: 30 ml Documented by: Magnesium Hydroxide (Milk Of Magnesia 30 Ml Oral.Susp) 30 ml PO DAILY PRN PRN Reason: Constipation Mirtazapine (Mirtazapine 15 Mg Tablet) 15 mg PO BEDTIME [facility] Last Admin: 05/20/21 20:53 Dose: 15 mg Documented by: Pt Own Med Odefsey 1 each PO BEDTIME [facility] Last Admin: 05/20/21 20:53 Dose: 1 each Documented by: Olanzapine (Olanzapine 10 Mg Vial) 20 mg IM BEDTIME PRN PRN Reason: refuses PO, as per Milo valdovinos Last Admin: 05/01/21 23:17 Dose: 20 mg Documented by: Olanzapine (Olanzapine Odt 10 Mg Tab.Rapdis) 30 mg TRANSLINGU BEDTIME [facility] Last Admin: 05/20/21 20:53 Dose: 30 mg Documented by: Valproic Acid (Valproic Acid (As Sodium Salt) 250 Mg/5 Ml Solution) 125 mg PO TID [facility] Last Admin: 05/21/21 10:28 Dose: Not Given Documented by: Allergies Allergies Allergy/AdvReac Type Severity Reaction Status Date / Time No Known Allergies Allergy Unverified 01/28/20 16:07 [No Known Allergies*] Assessment & Plan Assessment & Plan (1) Schizoaffective disorder, bipolar type: Status: Acute Code(s): F25.0 - Schizoaffective disorder, bipolar type (2) Dementia: Status: Acute Code(s): F03.90 - Unspecified dementia without behavioral disturbance Assessment and Plan: Pt is a 65 y.o. male who carries a dx of bipolar disorder, however sx are more in line with schizoaffective disorder bipolar type, as he presents with disorganized thought content, agitation, and paranoia. He has mild cognitive impairment r/t dementia and mental health dx. He is currently non-adherent with PO medications and is presenting [facility] with decompensation in sx. He was aggressive on transport and required IM haldol, however since arriving to the unit he has been med compliant and pleasant. Last received haldol dec on 03/30/21. [facility] Order in chart. Seroquel and risperdal are listed as alternatives. Plan: Pt will continue on OP med regimen at this time. Changed zyprexa to bedtime. Monitor response to medications. Monitor for safety in the milieu. Discharge on stabilization. Patient seen. Chart reviewed. Discussed with team. Obtain collateral contact info?as needed An affidavit was filled since the guardian was not being able to be contacted, he has a hearing soon and our it network architect will be the legal guardian. Haldol Decanoate increased up to 75 mg IM with the addition of Haldol p.o. 5 mg p.o. q.h.s. Zyprexa titrated up to 30 mg p.o. q.h.s. Continue Haldol and olanzapine Discontinue Keppra since the patietn is not complinat. Discharge planning Keppra level that came back negative so we stopped it and Start Depakote To target seizures and mood lability I spent minutes with the patient and/or on the patient floor today, greater than?50% of which was spent counseling/coordinating care. Reason for contiued inpatient stay Substantial Risk for: inability to function and rapid decompensation
[2021-05-21 18:00] VITALS: BP 106/59; PULSE 96; RESP 18; TEMP 36.5; O2SAT 98
[2021-05-21] MEDS: HaloperidoL 5 MG TABLET PO (21:00)
[2021-05-21] MEDS: OLANZapine ODT 10 MG TAB.RAPDIS 30 MG TRANSLINGU (21:00)
[2021-05-21] MEDS: Mirtazapine 15 MG TABLET PO (21:00)
[2021-05-22 08:00] VITALS: BP 147/88; PULSE 92; RESP 18; TEMP 35.8; O2SAT 97
[2021-05-22] MEDS: hydroCHLOROthiazide 12.5 MG TABLET PO (09:21)
[2021-05-22] MEDS: amLODIPine Besylate 2.5 MG TABLET PO (09:21)
[2021-05-22] MEDS: hydrOXYzine HCL 25 MG TABLET PO (09:21)
--- NOTE | 2021-05-22 14:10 | HO.PSYCHPN ---
Subjective Subjective Date of Service: 05/22/21 Reason For Visit: Delusions Subjective Notes: Conditional Voluntary Interim History: The nursing staff reported that the patient attended to 1 group yesterday. His mood is much better, less irritable but still psychotic at times. On interview, the patient denies new symptoms he was pleasant and cooperative. The social scientist reported that we already sent the affidavit to the engineering production worker so they can place him in a [facility]. Mental Status Exam Mental Status Exam Patient Appearance: Well Grooomed Patient Orientation: Person Level of Consciousness: Awake Patient Behavior: Cooperative Mood Description: Calm Affect Description: Constricted Patient Cognition Impaired: Yes Ability to Follow Directions: Good Speech Pattern: Appropriate Hallucinations: None Delusions: Not Present Thought Process: Distracted and Evasive Thought Content: positive for Circumstantial Judgement: Fair Diagnostics Vital Signs (24Hr): Vital Signs - 24 hr 05/21/21 18:00 05/22/21 08:00 Temperature 97.7 F 96.4 F L Pulse Rate 96 92 Respiratory Rate 18 18 Blood Pressure 106/59 L 147/88 H Pulse Oximetry 98 97 BMI result Body Mass Index 17.6 Labs Results: 03/31/21 21:09 03/31/21 21:09 Medications Medications Current Medications Acetaminophen (Acetaminophen 325 Mg Tablet) 650 mg PO Q6H PRN PRN Reason: Headache/Pain Mild Scale (1-3) Last Admin: 05/11/21 20:02 Dose: 650 mg Documented by: Al Hydroxide/Mg Hydroxide (Magnesium Hydrox/Alum Hydrox 30 Ml Oral.Susp) 30 ml PO Q6H PRN PRN Reason: Heartburn/Nausea Amlodipine Besylate (Amlodipine Besylate 2.5 Mg Tablet) 2.5 mg PO DAILY [facility]; Protocol Last Admin: 05/22/21 09:21 Dose: 2.5 mg Documented by: Clonidine HCl (Clonidine Hcl 0.1 Mg Tablet) 0.1 mg PO Q2H PRN; Protocol PRN Reason: SBP > 150 Last Admin: 04/05/21 21:47 Dose: 0.1 mg Documented by: Ergocalciferol (Ergocalciferol (Vitamin D2) 1,250 Mcg Capsule) 1,250 mcg PO MO [facility] Last Admin: 05/22/21 09:45 Dose: Not Given Documented by: Haloperidol (Haloperidol 5 Mg Tablet) 5 mg PO BEDTIME [facility] Last Admin: 05/21/21 21:00 Dose: 5 mg Documented by: Haloperidol Decanoate (Haloperidol Decanoate 50 Mg/Ml Ampul) 75 mg IM Q28D [facility] Last Admin: 04/25/21 11:49 Dose: 75 mg Documented by: Hydrochlorothiazide (Hydrochlorothiazide 12.5 Mg Tablet) 12.5 mg PO DAILY [facility]; Protocol Last Admin: 05/22/21 09:21 Dose: 12.5 mg Documented by: Hydroxyzine HCl (Hydroxyzine Hcl 25 Mg Tablet) 25 mg PO Q6H PRN PRN Reason: Anxiety Last Admin: 05/22/21 09:21 Dose: 25 mg Documented by: Loperamide HCl (Loperamide Hcl 2 Mg Capsule) 2 mg PO Q6H PRN PRN Reason: Constipation Magnesium Hydroxide (Milk Of Magnesia 30 Ml Oral.Susp) 30 ml PO DAILY PRN PRN Reason: Constipation Last Admin: 05/01/21 06:49 Dose: 30 ml Documented by: Magnesium Hydroxide (Milk Of Magnesia 30 Ml Oral.Susp) 30 ml PO DAILY PRN PRN Reason: Constipation Mirtazapine (Mirtazapine 15 Mg Tablet) 15 mg PO BEDTIME [facility] Last Admin: 05/21/21 21:00 Dose: 15 mg Documented by: Pt Own Med Odefsey 1 each PO BEDTIME [facility] Last Admin: 05/21/21 21:00 Dose: 1 each Documented by: Olanzapine (Olanzapine 10 Mg Vial) 20 mg IM BEDTIME PRN PRN Reason: refuses PO, as per Milo valdovinos Last Admin: 05/01/21 23:17 Dose: 20 mg Documented by: Olanzapine (Olanzapine Odt 10 Mg Tab.Rapdis) 30 mg TRANSLINGU BEDTIME [facility] Last Admin: 05/21/21 21:00 Dose: 30 mg Documented by: Valproic Acid (Valproic Acid (As Sodium Salt) 250 Mg/5 Ml Solution) 125 mg PO TID [facility] Last Admin: 05/22/21 09:20 Dose: 125 mg Documented by: Allergies Allergies Allergy/AdvReac Type Severity Reaction Status Date / Time No Known Allergies Allergy Unverified 01/28/20 16:07 [No Known Allergies*] Assessment & Plan Assessment & Plan (1) Schizoaffective disorder, bipolar type: Status: Acute Code(s): F25.0 - Schizoaffective disorder, bipolar type (2) Dementia: Status: Acute Code(s): F03.90 - Unspecified dementia without behavioral disturbance Assessment and Plan: Pt is a 65 y.o. male who carries a dx of bipolar disorder, however sx are more in line with schizoaffective disorder bipolar type, as he presents with disorganized thought content, agitation, and paranoia. He has mild cognitive impairment r/t dementia and mental health dx. He is currently non-adherent with PO medications and is [facility] with decompensation in sx. He was aggressive on transport and required IM haldol, however since arriving to the unit he has been med compliant and pleasant. Last received haldol dec on 03/30/21. Has [facility] Jass's Order in chart. Seroquel and risperdal are listed as alternatives. Plan: Pt will continue on OP med regimen at this time. Changed zyprexa to bedtime. Monitor response to medications. Monitor for safety in the milieu. Discharge on stabilization. Patient seen. Chart reviewed. Discussed with team. Obtain collateral contact info?as needed An affidavit was filled since the guardian was not being able to be contacted, he has a hearing soon and our staff attorney will be the legal guardian. Haldol Decanoate increased up to 75 mg IM with the addition of Haldol p.o. 5 mg p.o. q.h.s. Zyprexa titrated up to 30 mg p.o. q.h.s. Continue Haldol and olanzapine Discontinue Keppra since the patietn is not complinat. Discharge planning Keppra level that came back negative so we stopped it and Start Depakote To target seizures and mood lability I spent minutes with the patient and/or on the patient floor today, greater than?50% of which was spent counseling/coordinating care. Reason for contiued inpatient stay Substantial Risk for: inability to function, rapid decompensation and med/psych decompensation
[2021-05-22 18:00] VITALS: BP 110/66; PULSE 90; RESP 16; TEMP 36.7; O2SAT 95
[2021-05-22] MEDS: Mirtazapine 15 MG TABLET PO (20:08)
[2021-05-22] MEDS: OLANZapine ODT 10 MG TAB.RAPDIS 30 MG TRANSLINGU (20:08)
[2021-05-22] MEDS: HaloperidoL 5 MG TABLET PO (20:08)
[2021-05-23 06:00] VITALS: BP 115/76; PULSE 89; RESP 18; TEMP 36.2; O2SAT 94
[2021-05-23] MEDS: amLODIPine Besylate 2.5 MG TABLET PO (08:13)
[2021-05-23] MEDS: hydroCHLOROthiazide 12.5 MG TABLET PO (08:13)
--- NOTE | 2021-05-23 13:40 | P.PNPSI_ITS ---
Subjective Subjective Date of Service: 05/23/21 Reason For Visit: Delusions Subjective Notes: Conditional Voluntary Interim History: The nursing staff reported that the patient spends most of the time in his room, he is fully compliant with medications but he was seen self dialogue in in the evening, much less than before. On interview, the patient denies new symptoms he is pleasant and cooperative. The social insurance adviser talked with the staff of his previous home and the staff of the previous home reported that they are and prepared to take care of him so referral for long-term was already done. Mental Status Exam Mental Status Exam Patient Appearance: Disheveled and Unkempt Patient Orientation: Person Level of Consciousness: Awake Patient Behavior: Cooperative Mood Description: Constricted Affect Description: Constricted Patient Cognition Impaired: Yes Ability to Follow Directions: Good Speech Pattern: Clear Hallucinations: None Delusions: Not Present Thought Process: Linear Thought Content: positive for Poverty of Content Judgement: Fair Diagnostics Vital Signs (24Hr): Vital Signs - 24 hr 05/22/21 18:00 05/23/21 06:00 Temperature 98.0 F 97.2 F Pulse Rate 90 89 Respiratory Rate 16 18 Blood Pressure 110/66 115/76 Pulse Oximetry 95 94 BMI result Body Mass Index 17.6 Labs Results: 03/31/21 21:09 03/31/21 21:09 Medications Medications Current Medications Acetaminophen (Acetaminophen 325 Mg Tablet) 650 mg PO Q6H PRN PRN Reason: Headache/Pain Mild Scale (1-3) Last Admin: 05/11/21 20:02 Dose: 650 mg Documented by: Al Hydroxide/Mg Hydroxide (Magnesium Hydrox/Alum Hydrox 30 Ml Oral.Susp) 30 ml PO Q6H PRN PRN Reason: Heartburn/Nausea Amlodipine Besylate (Amlodipine Besylate 2.5 Mg Tablet) 2.5 mg PO DAILY [facility]; Protocol Last Admin: 05/23/21 08:13 Dose: 2.5 mg Documented by: Clonidine HCl (Clonidine Hcl 0.1 Mg Tablet) 0.1 mg PO Q2H PRN; Protocol PRN Reason: SBP > 150 Last Admin: 04/05/21 21:47 Dose: 0.1 mg Documented by: Ergocalciferol (Ergocalciferol (Vitamin D2) 1,250 Mcg Capsule) 1,250 mcg PO MO [facility] Last Admin: 05/22/21 09:45 Dose: Not Given Documented by: Haloperidol (Haloperidol 5 Mg Tablet) 5 mg PO BEDTIME [facility] Last Admin: 05/22/21 20:08 Dose: 5 mg Documented by: Haloperidol Decanoate (Haloperidol Decanoate 50 Mg/Ml Ampul) 75 mg IM Q28D [facility] Last Admin: 05/23/21 11:19 Dose: 75 mg Documented by: Hydrochlorothiazide (Hydrochlorothiazide 12.5 Mg Tablet) 12.5 mg PO DAILY [facility]; Protocol Last Admin: 05/23/21 08:13 Dose: 12.5 mg Documented by: Hydroxyzine HCl (Hydroxyzine Hcl 25 Mg Tablet) 25 mg PO Q6H PRN PRN Reason: Anxiety Last Admin: 05/22/21 09:21 Dose: 25 mg Documented by: Loperamide HCl (Loperamide Hcl 2 Mg Capsule) 2 mg PO Q6H PRN PRN Reason: Constipation Magnesium Hydroxide (Milk Of Magnesia 30 Ml Oral.Susp) 30 ml PO DAILY PRN PRN Reason: Constipation Last Admin: 05/01/21 06:49 Dose: 30 ml Documented by: Magnesium Hydroxide (Milk Of Magnesia 30 Ml Oral.Susp) 30 ml PO DAILY PRN PRN Reason: Constipation Mirtazapine (Mirtazapine 15 Mg Tablet) 15 mg PO BEDTIME [facility] Last Admin: 05/22/21 20:08 Dose: 15 mg Documented by: Pt Own Med Odefsey 1 each PO BEDTIME [facility] Last Admin: 05/22/21 20:09 Dose: 1 each Documented by: Olanzapine (Olanzapine 10 Mg Vial) 20 mg IM BEDTIME PRN PRN Reason: refuses PO, as per Milo valdovinos Last Admin: 05/01/21 23:17 Dose: 20 mg Documented by: Olanzapine (Olanzapine Odt 10 Mg Tab.Rapdis) 30 mg TRANSLINGU BEDTIME [facility] Last Admin: 05/22/21 20:08 Dose: 30 mg Documented by: Valproic Acid (Valproic Acid (As Sodium Salt) 250 Mg/5 Ml Solution) 125 mg PO TID [facility] Last Admin: 05/23/21 08:13 Dose: 125 mg Documented by: Allergies Allergies Allergy/AdvReac Type Severity Reaction Status Date / Time No Known Allergies Allergy Unverified 01/28/20 16:07 [No Known Allergies*] Assessment & Plan Assessment & Plan (1) Schizoaffective disorder, bipolar type: Status: Acute Code(s): F25.0 - Schizoaffective disorder, bipolar type (2) Dementia: Status: Acute Code(s): F03.90 - Unspecified dementia without behavioral disturbance Assessment and Plan: Pt is a 65 y.o. male who carries a dx of bipolar disorder, however sx are more in line with schizoaffective disorder bipolar type, as he presents with disorganized thought content, agitation, and paranoia. He has mild cognitive impairment r/t dementia and mental health dx. He is currently non-adherent with PO medications and is presenting [facility] with decompensation in sx. He was aggressive on transport and required IM haldol, however since arriving to the unit he has been med compliant and pleasant. Last received haldol dec on 03/30/21. Has community [facility] Order in chart. Seroquel and risperdal are listed as alternatives. Plan: Pt will continue on OP med regimen at this time. Changed zyprexa to bedtime. Monitor response to medications. Monitor for safety in the milieu. Discharge on stabilization. Patient seen. Chart reviewed. Discussed with team. Obtain collateral contact info?as needed An affidavit was filled since the guardian was not being able to be contacted, he has a hearing soon and our staff attorney will be the legal guardian. Haldol Decanoate increased up to 75 mg IM with the addition of Haldol p.o. 5 mg p.o. q.h.s. Zyprexa titrated up to 30 mg p.o. q.h.s. Continue Haldol and olanzapine Discontinue Keppra since the patietn is not complinat. Discharge planning Keppra level that came back negative so we stopped it and Start Depakote To target seizures and mood lability I spent minutes with the patient and/or on the patient floor today, greater than?50% of which was spent counseling/coordinating care. Reason for contiued inpatient stay Substantial Risk for: inability to function, rapid decompensation and med/psych decompensation
[2021-05-23 18:00] VITALS: BP 108/55; PULSE 106; RESP 16; TEMP 36.6; O2SAT 94
[2021-05-23] MEDS: OLANZapine ODT 10 MG TAB.RAPDIS 30 MG TRANSLINGU (21:00)
[2021-05-23] MEDS: HaloperidoL 5 MG TABLET PO (21:01)
[2021-05-23] MEDS: Mirtazapine 15 MG TABLET PO (21:01)
[2021-05-24] MEDS: amLODIPine Besylate 2.5 MG TABLET PO (08:15)
[2021-05-24] MEDS: hydroCHLOROthiazide 12.5 MG TABLET PO (08:16)
[2021-05-24 08:36] VITALS: BP 113/69; PULSE 85; RESP 16; TEMP 36.2; O2SAT 95
--- NOTE | 2021-05-24 15:05 | P.PNPSI_ITS ---
Subjective Subjective Date of Service: 05/24/21 Reason For Visit: Delusions Subjective Notes: Conditional Voluntary Interim History: The nursing staff reported that he is doing well, cooperative and pleasant. He attends groups and he is easily redirectable. On interview, no new symptoms, waiting for placement Mental Status Exam Mental Status Exam Patient Appearance: Fatigued and Unkempt Patient Orientation: Person Level of Consciousness: Awake Patient Behavior: Cooperative Mood Description: Withdrawn Affect Description: Constricted Patient Cognition Impaired: Yes Ability to Follow Directions: Good Speech Pattern: Clear Hallucinations: None Delusions: Paranoid Ideation Thought Process: Linear Thought Content: positive for Circumstantial and positive for Poverty of Content Judgement: Fair Diagnostics Vital Signs (24Hr): Vital Signs - 24 hr 05/23/21 18:00 05/24/21 08:36 Temperature 97.9 F 97.1 F Pulse Rate 106 H 85 Respiratory Rate 16 16 Blood Pressure 108/55 L 113/69 Pulse Oximetry 94 95 BMI result Body Mass Index 17.6 Labs Results: 03/31/21 21:09 03/31/21 21:09 Medications Medications Current Medications Acetaminophen (Acetaminophen 325 Mg Tablet) 650 mg PO Q6H PRN PRN Reason: Headache/Pain Mild Scale (1-3) Last Admin: 05/11/21 20:02 Dose: 650 mg Documented by: Al Hydroxide/Mg Hydroxide (Magnesium Hydrox/Alum Hydrox 30 Ml Oral.Susp) 30 ml PO Q6H PRN PRN Reason: Heartburn/Nausea Amlodipine Besylate (Amlodipine Besylate 2.5 Mg Tablet) 2.5 mg PO DAILY [facility]; Protocol Last Admin: 05/24/21 08:15 Dose: 2.5 mg Documented by: Clonidine HCl (Clonidine Hcl 0.1 Mg Tablet) 0.1 mg PO Q2H PRN; Protocol PRN Reason: SBP > 150 Last Admin: 04/05/21 21:47 Dose: 0.1 mg Documented by: Ergocalciferol (Ergocalciferol (Vitamin D2) 1,250 Mcg Capsule) 1,250 mcg PO MO [facility] Last Admin: 05/22/21 09:45 Dose: Not Given Documented by: Haloperidol (Haloperidol 5 Mg Tablet) 5 mg PO BEDTIME [facility] Last Admin: 05/23/21 21:01 Dose: 5 mg Documented by: Haloperidol Decanoate (Haloperidol Decanoate 50 Mg/Ml Ampul) 75 mg IM Q28D [facility] Last Admin: 05/23/21 11:19 Dose: 75 mg Documented by: Hydrochlorothiazide (Hydrochlorothiazide 12.5 Mg Tablet) 12.5 mg PO DAILY [facility]; Protocol Last Admin: 05/24/21 08:16 Dose: 12.5 mg Documented by: Hydroxyzine HCl (Hydroxyzine Hcl 25 Mg Tablet) 25 mg PO Q6H PRN PRN Reason: Anxiety Last Admin: 05/22/21 09:21 Dose: 25 mg Documented by: Loperamide HCl (Loperamide Hcl 2 Mg Capsule) 2 mg PO Q6H PRN PRN Reason: Constipation Magnesium Hydroxide (Milk Of Magnesia 30 Ml Oral.Susp) 30 ml PO DAILY PRN PRN Reason: Constipation Last Admin: 05/01/21 06:49 Dose: 30 ml Documented by: Magnesium Hydroxide (Milk Of Magnesia 30 Ml Oral.Susp) 30 ml PO DAILY PRN PRN Reason: Constipation Mirtazapine (Mirtazapine 15 Mg Tablet) 15 mg PO BEDTIME [facility] Last Admin: 05/23/21 21:01 Dose: 15 mg Documented by: Pt Own Med Odefsey 1 each PO BEDTIME [facility] Last Admin: 05/23/21 21:00 Dose: 1 each Documented by: Olanzapine (Olanzapine 10 Mg Vial) 20 mg IM BEDTIME PRN PRN Reason: refuses PO, as per Milo valdovinos Last Admin: 05/01/21 23:17 Dose: 20 mg Documented by: Olanzapine (Olanzapine Odt 10 Mg Tab.Rapdis) 30 mg TRANSLINGU BEDTIME [facility] Last Admin: 05/23/21 21:00 Dose: 30 mg Documented by: Valproic Acid (Valproic Acid (As Sodium Salt) 250 Mg/5 Ml Solution) 125 mg PO TID [facility] Last Admin: 05/24/21 15:02 Dose: 125 mg Documented by: Allergies Allergies Allergy/AdvReac Type Severity Reaction Status Date / Time No Known Allergies Allergy Unverified 01/28/20 16:07 [No Known Allergies*] Assessment & Plan Assessment & Plan (1) Schizoaffective disorder, bipolar type: Status: Acute Code(s): F25.0 - Schizoaffective disorder, bipolar type (2) Dementia: Status: Acute Code(s): F03.90 - Unspecified dementia without behavioral disturbance Assessment and Plan: Pt is a 65 y.o. male who carries a dx of bipolar disorder, however sx are more in line with schizoaffective disorder bipolar type, as he presents with disorganized thought content, agitation, and paranoia. He has mild cognitive impairment r/t dementia and mental health dx. He is currently non-adherent with PO medications and is presenting [facility] with decompensation in sx. He was aggressive on transport and required IM haldol, however since arriving to the unit he has been med compliant and pleasant. Last received haldol dec on 03/30/21. Has community [facility] Order in chart. Seroquel and risperdal are listed as alternatives. Plan: Pt will continue on OP med regimen at this time. Changed zyprexa to bedtime. Monitor response to medications. Monitor for safety in the milieu. Discharge on stabilization. Patient seen. Chart reviewed. Discussed with team. Obtain collateral contact info?as needed An affidavit was filled since the guardian was not being able to be contacted, he has a hearing soon and our traffic law attorney will be the legal guardian. Haldol Decanoate increased up to 75 mg IM with the addition of Haldol p.o. 5 mg p.o. q.h.s. Zyprexa titrated up to 30 mg p.o. q.h.s. Continue Haldol and olanzapine Discontinue Keppra since the patietn is not complinat. Discharge planning Keppra level that came back negative so we stopped it and Start Depakote To target seizures and mood lability I spent minutes with the patient and/or on the patient floor today, greater than?50% of which was spent counseling/coordinating care. Reason for contiued inpatient stay Substantial Risk for: inability to function, rapid decompensation and med/psych decompensation
--- NOTE | 2021-05-24 15:20 | MHC.CLN ---
F/U NO NEW REPORTED CONCERNS WITH DIET. CONTINUE TO SEND 2 ENSURE SUPPLEMENTS ON EACH MEAL TRAY. 6 ENSURE ENLIVE SUPPLEMENTS PROVIDE 2100 KCALS, 120 G PROTEIN. SKIN: NO PRESSURE AREAS. CONTINUE TO FOLLOW WEEKLY.
[2021-05-24] MEDS: Mirtazapine 15 MG TABLET PO (20:06)
[2021-05-24] MEDS: OLANZapine ODT 10 MG TAB.RAPDIS 30 MG TRANSLINGU (20:06)
[2021-05-24] MEDS: HaloperidoL 5 MG TABLET PO (20:06)
[2021-05-24 20:55] VITALS: BP 108/63; PULSE 94; RESP 19; TEMP 36.6; O2SAT 93
[2021-05-25 07:00] VITALS: BMI 18.4
[2021-05-25 07:30] VITALS: BP 99/64; PULSE 92; RESP 16; TEMP 36.6; O2SAT 95
[2021-05-25] MEDS: amLODIPine Besylate 2.5 MG TABLET PO (08:18)
[2021-05-25] MEDS: hydroCHLOROthiazide 12.5 MG TABLET PO (08:18)
--- NOTE | 2021-05-25 15:17 | P.PNPSI_ITS ---
Subjective Subjective Date of Service: 05/25/21 Reason For Visit: Delusions Subjective Notes: Conditional Voluntary Interim History: the nursing staff reports that the patient has been pleasant and cooperative, he attends to groups. On interview the patient is doing fine no new complaints. The patient is waiting for placement Mental Status Exam Mental Status Exam Patient Appearance: Disheveled Patient Orientation: Person Level of Consciousness: Awake Patient Behavior: Cooperative Mood Description: Calm Affect Description: Constricted Patient Cognition Impaired: Yes Ability to Follow Directions: Good Speech Pattern: Appropriate Hallucinations: None Delusions: Not Present Thought Process: Linear Thought Content: positive for Circumstantial Judgement: Fair Diagnostics Vital Signs (24Hr): Vital Signs - 24 hr 05/24/21 20:55 05/25/21 07:30 Temperature 98 F 97.9 F Pulse Rate 94 92 Respiratory Rate 19 16 Blood Pressure 108/63 99/64 Pulse Oximetry 93 95 BMI result Body Mass Index 18.4 Labs Results: 03/31/21 21:09 03/31/21 21:09 Medications Medications Current Medications Acetaminophen (Acetaminophen 325 Mg Tablet) 650 mg PO Q6H PRN PRN Reason: Headache/Pain Mild Scale (1-3) Last Admin: 05/11/21 20:02 Dose: 650 mg Documented by: Al Hydroxide/Mg Hydroxide (Magnesium Hydrox/Alum Hydrox 30 Ml Oral.Susp) 30 ml PO Q6H PRN PRN Reason: Heartburn/Nausea Amlodipine Besylate (Amlodipine Besylate 2.5 Mg Tablet) 2.5 mg PO DAILY [facility]; Protocol Last Admin: 05/25/21 08:18 Dose: 2.5 mg Documented by: Clonidine HCl (Clonidine Hcl 0.1 Mg Tablet) 0.1 mg PO Q2H PRN; Protocol PRN Reason: SBP > 150 Last Admin: 04/05/21 21:47 Dose: 0.1 mg Documented by: Ergocalciferol (Ergocalciferol (Vitamin D2) 1,250 Mcg Capsule) 1,250 mcg PO MO [facility] Last Admin: 05/22/21 09:45 Dose: Not Given Documented by: Haloperidol (Haloperidol 5 Mg Tablet) 5 mg PO BEDTIME [facility] Last Admin: 05/24/21 20:06 Dose: 5 mg Documented by: Haloperidol Decanoate (Haloperidol Decanoate 50 Mg/Ml Ampul) 75 mg IM Q28D [facility] Last Admin: 05/23/21 11:19 Dose: 75 mg Documented by: Hydrochlorothiazide (Hydrochlorothiazide 12.5 Mg Tablet) 12.5 mg PO DAILY [facility]; Protocol Last Admin: 05/25/21 08:18 Dose: 12.5 mg Documented by: Hydroxyzine HCl (Hydroxyzine Hcl 25 Mg Tablet) 25 mg PO Q6H PRN PRN Reason: Anxiety Last Admin: 05/22/21 09:21 Dose: 25 mg Documented by: Loperamide HCl (Loperamide Hcl 2 Mg Capsule) 2 mg PO Q6H PRN PRN Reason: Constipation Magnesium Hydroxide (Milk Of Magnesia 30 Ml Oral.Susp) 30 ml PO DAILY PRN PRN Reason: Constipation Last Admin: 05/01/21 06:49 Dose: 30 ml Documented by: Magnesium Hydroxide (Milk Of Magnesia 30 Ml Oral.Susp) 30 ml PO DAILY PRN PRN Reason: Constipation Mirtazapine (Mirtazapine 15 Mg Tablet) 15 mg PO BEDTIME [facility] Last Admin: 05/24/21 20:06 Dose: 15 mg Documented by: Pt Own Med Odefsey 1 each PO BEDTIME [facility] Last Admin: 05/24/21 20:05 Dose: 1 each Documented by: Olanzapine (Olanzapine 10 Mg Vial) 20 mg IM BEDTIME PRN PRN Reason: refuses PO, as per Milo valdovinos Last Admin: 05/01/21 23:17 Dose: 20 mg Documented by: Olanzapine (Olanzapine Odt 10 Mg Tab.Rapdis) 30 mg TRANSLINGU BEDTIME [facility] Last Admin: 05/24/21 20:06 Dose: 30 mg Documented by: Valproic Acid (Valproic Acid (As Sodium Salt) 250 Mg/5 Ml Solution) 125 mg PO TID [facility] Last Admin: 05/25/21 08:18 Dose: 125 mg Documented by: Allergies Allergies Allergy/AdvReac Type Severity Reaction Status Date / Time No Known Allergies Allergy Unverified 01/28/20 16:07 [No Known Allergies*] Assessment & Plan Assessment & Plan (1) Schizoaffective disorder, bipolar type: Status: Acute Code(s): F25.0 - Schizoaffective disorder, bipolar type (2) Dementia: Status: Acute Code(s): F03.90 - Unspecified dementia without behavioral disturbance Assessment and Plan: Pt is a 65 y.o. male who carries a dx of bipolar disorder, however sx are more in line with schizoaffective disorder bipolar type, as he presents with disorganized thought content, agitation, and paranoia. He has mild cognitive impairment r/t dementia and mental health dx. He is currently non-adherent with PO medications and is presenting [facility] with decompensation in sx. He was aggressive on transport and required IM haldol, however since arriving to the unit he has been med compliant and pleasant. Last received haldol dec on 03/30/21. Has community [facility]ass[facility] Order in chart. Seroquel and risperdal are listed as alternatives. Plan: Pt will continue on OP med regimen at this time. Changed zyprexa to bedtime. Monitor response to medications. Monitor for safety in the milieu. Discharge on stabilization. Patient seen. Chart reviewed. Discussed with team. Obtain collateral contact info?as needed An affidavit was filled since the guardian was not being able to be contacted, he has a hearing soon and our metal cnc operator will be the legal guardian. Haldol Decanoate increased up to 75 mg IM with the addition of Haldol p.o. 5 mg p.o. q.h.s. Zyprexa titrated up to 30 mg p.o. q.h.s. Continue Haldol and olanzapine Discontinue Keppra since the patietn is not complinat. Discharge planning Keppra level that came back negative so we stopped it and Start Depakote To target seizures and mood lability Waiting for placement I spent minutes with the patient and/or on the patient floor today, greater than?50% of which was spent counseling/coordinating care. Reason for contiued inpatient stay Substantial Risk for: inability to function, rapid decompensation and med/psych decompensation
[2021-05-25] MEDS: HaloperidoL 5 MG TABLET PO (19:37)
[2021-05-25] MEDS: Mirtazapine 15 MG TABLET PO (19:38)
[2021-05-25] MEDS: OLANZapine ODT 10 MG TAB.RAPDIS 30 MG TRANSLINGU (19:38)
[2021-05-25 20:21] VITALS: BP 102/54; PULSE 89; RESP 18; TEMP 36.4; O2SAT 97
[2021-05-26 08:00] VITALS: BP 109/68; PULSE 79; RESP 16; TEMP 36.4; O2SAT 96
[2021-05-26] MEDS: hydrOXYzine HCL 25 MG TABLET PO (08:29)
[2021-05-26] MEDS: amLODIPine Besylate 2.5 MG TABLET PO (08:29)
[2021-05-26] MEDS: hydroCHLOROthiazide 12.5 MG TABLET PO (08:29)
--- NOTE | 2021-05-26 13:55 | P.PNPSI_ITS ---
Subjective Subjective Date of Service: 05/26/21 Reason For Visit: Delusions Subjective Notes: Conditional Voluntary Interim History: the nursing staff reports no changes on his mental status, he has attends to groups he is pleasant and cooperative. On interview the patient denies new symptoms he looks pleasantly confused. The patient is waiting for placement Mental Status Exam Mental Status Exam Patient Appearance: Disheveled Patient Orientation: Person Level of Consciousness: Awake Mood Description: Withdrawn Affect Description: Constricted Patient Cognition Impaired: Yes Ability to Follow Directions: Good Speech Pattern: Clear Memory Description: Intact Hallucinations: None Delusions: Not Present Thought Process: Linear Thought Content: positive for Poverty of Content Judgement: Fair Diagnostics Vital Signs (24Hr): Vital Signs - 24 hr 05/25/21 20:21 05/26/21 08:00 Temperature 97.5 F 97.5 F Pulse Rate 89 79 Respiratory Rate 18 16 Blood Pressure 102/54 L 109/68 Pulse Oximetry 97 96 BMI result Body Mass Index 18.4 Labs Results: 03/31/21 21:09 03/31/21 21:09 Medications Medications Current Medications Acetaminophen (Acetaminophen 325 Mg Tablet) 650 mg PO Q6H PRN PRN Reason: Headache/Pain Mild Scale (1-3) Last Admin: 05/11/21 20:02 Dose: 650 mg Documented by: Al Hydroxide/Mg Hydroxide (Magnesium Hydrox/Alum Hydrox 30 Ml Oral.Susp) 30 ml PO Q6H PRN PRN Reason: Heartburn/Nausea Amlodipine Besylate (Amlodipine Besylate 2.5 Mg Tablet) 2.5 mg PO DAILY [facility]; Protocol Last Admin: 05/26/21 08:29 Dose: 2.5 mg Documented by: Clonidine HCl (Clonidine Hcl 0.1 Mg Tablet) 0.1 mg PO Q2H [facility]; Protocol PRN Reason: SBP > 150 Last Admin: 04/05/21 21:47 Dose: 0.1 mg Documented by: Ergocalciferol (Ergocalciferol (Vitamin D2) 1,250 Mcg Capsule) 1,250 mcg PO MO [facility] Last Admin: 05/22/21 09:45 Dose: Not Given Documented by: Haloperidol (Haloperidol 5 Mg Tablet) 5 mg PO BEDTIME [facility] Last Admin: 05/25/21 19:37 Dose: 5 mg Documented by: Haloperidol Decanoate (Haloperidol Decanoate 50 Mg/Ml Ampul) 75 mg IM Q28D [facility] Last Admin: 05/23/21 11:19 Dose: 75 mg Documented by: Hydrochlorothiazide (Hydrochlorothiazide 12.5 Mg Tablet) 12.5 mg PO DAILY [facility]; Protocol Last Admin: 05/26/21 08:29 Dose: 12.5 mg Documented by: Hydroxyzine HCl (Hydroxyzine Hcl 25 Mg Tablet) 25 mg PO Q6H PRN PRN Reason: Anxiety Last Admin: 05/26/21 08:29 Dose: 25 mg Documented by: Loperamide HCl (Loperamide Hcl 2 Mg Capsule) 2 mg PO Q6H PRN PRN Reason: Constipation Magnesium Hydroxide (Milk Of Magnesia 30 Ml Oral.Susp) 30 ml PO DAILY PRN PRN Reason: Constipation Last Admin: 05/01/21 06:49 Dose: 30 ml Documented by: Magnesium Hydroxide (Milk Of Magnesia 30 Ml Oral.Susp) 30 ml PO DAILY PRN PRN Reason: Constipation Mirtazapine (Mirtazapine 15 Mg Tablet) 15 mg PO BEDTIME [facility] Last Admin: 05/25/21 19:38 Dose: 15 mg Documented by: Pt Own Med Odefsey 1 each PO BEDTIME [facility] Last Admin: 05/25/21 19:37 Dose: 1 each Documented by: Olanzapine (Olanzapine 10 Mg Vial) 20 mg IM BEDTIME PRN PRN Reason: refuses PO, as per Milo valdovinos Last Admin: 05/01/21 23:17 Dose: 20 mg Documented by: Olanzapine (Olanzapine Odt 10 Mg Tab.Rapdis) 30 mg TRANSLINGU BEDTIME [facility] Last Admin: 05/25/21 19:38 Dose: 30 mg Documented by: Valproic Acid (Valproic Acid (As Sodium Salt) 250 Mg/5 Ml Solution) 125 mg PO TID [facility] Last Admin: 05/26/21 08:30 Dose: 125 mg Documented by: Allergies Allergies Allergy/AdvReac Type Severity Reaction Status Date / Time No Known Allergies Allergy Unverified 01/28/20 16:07 [No Known Allergies*] Assessment & Plan Assessment & Plan (1) Schizoaffective disorder, bipolar type: Status: Acute Code(s): F25.0 - Schizoaffective disorder, bipolar type (2) Dementia: Status: Acute Code(s): F03.90 - Unspecified dementia without behavioral disturbance Assessment and Plan: Pt is a 65 y.o. male who carries a dx of bipolar disorder, however sx are more in line with schizoaffective disorder bipolar type, as he presents with d isorganized thought content, agitation, and paranoia. He has mild cognitive impairment r/t dementia and mental health dx. He is currently non-adherent with PO medications and is presenting [facility] with decompensation in sx. He was aggressive on transport and required IM haldol, however since arriving to the unit he has been med compliant and pleasant. Last received haldol dec on 03/30/21. Has community [facility] Order in chart. Seroquel and risperdal are listed as alternatives. Plan: keep same treatment. Waiting for placement I spent minutes with the patient and/or on the patient floor today, greater than?50% of which was spent counseling/coordinating care. Reason for contiued inpatient stay Substantial Risk for: inability to function and stable for discharge
[2021-05-26 18:00] VITALS: BP 109/63; PULSE 93; RESP 18; TEMP 36.5; O2SAT 94
[2021-05-26] MEDS: Mirtazapine 15 MG TABLET PO (20:23)
[2021-05-26] MEDS: OLANZapine ODT 10 MG TAB.RAPDIS 30 MG TRANSLINGU (20:23)
[2021-05-26] MEDS: HaloperidoL 5 MG TABLET PO (20:23)
[2021-05-27] MEDS: hydroCHLOROthiazide 12.5 MG TABLET PO (08:32)
[2021-05-27] MEDS: amLODIPine Besylate 2.5 MG TABLET PO (08:32)
[2021-05-27 09:18] VITALS: BP 116/74; PULSE 98; RESP 18; TEMP 35.9; O2SAT 98
--- NOTE | 2021-05-27 10:09 | P.PNPSI_ITS ---
Subjective Subjective Date of Service: 05/27/21 Reason For Visit: Delusions Medical Problems Affecting Mental Status: No Interim History: Patient was seen and discussed in rounds today. Records in plans reviewed. Labs were reviewed. He has been pleasant and cooperative. No delusions reported. He is eating and sleeping adequately and has gained 5 lb. He is social and med compliant. No complaints or side effects. No changes were made Review of Systems Review of Systems Yes all other systems are reviewed and are negative Mental Status Exam Mental Status Exam Patient Appearance: Disheveled Patient Orientation: Person Level of Consciousness: Awake Mood Description: Withdrawn Affect Description: Constricted Patient Cognition Impaired: Yes Ability to Follow Directions: Good Speech Pattern: Clear Memory Description: Intact Hallucinations: None Delusions: Not Present Thought Process: Linear Thought Content: positive for Poverty of Content Judgement: Fair Diagnostics Vital Signs (24Hr): Vital Signs - 24 hr 05/26/21 18:00 05/27/21 09:18 Temperature 97.7 F 96.7 F L Pulse Rate 93 98 Respiratory Rate 18 18 Blood Pressure 109/63 116/74 Pulse Oximetry 94 98 BMI result Body Mass Index 18.4 Labs Results: 03/31/21 21:09 03/31/21 21:09 Medications Medications Current Medications Acetaminophen (Acetaminophen 325 Mg Tablet) 650 mg PO Q6H PRN PRN Reason: Headache/Pain Mild Scale (1-3) Last Admin: 05/11/21 20:02 Dose: 650 mg Documented by: Al Hydroxide/Mg Hydroxide (Magnesium Hydrox/Alum Hydrox 30 Ml Oral.Susp) 30 ml PO Q6H PRN PRN Reason: Heartburn/Nausea Amlodipine Besylate (Amlodipine Besylate 2.5 Mg Tablet) 2.5 mg PO DAILY [facility]; Protocol Last Admin: 05/27/21 08:32 Dose: 2.5 mg Documented by: Clonidine HCl (Clonidine Hcl 0.1 Mg Tablet) 0.1 mg PO Q2H PRN; Protocol PRN Reason: SBP > 150 Last Admin: 04/05/21 21:47 Dose: 0.1 mg Documented by: Ergocalciferol (Ergocalciferol (Vitamin D2) 1,250 Mcg Capsule) 1,250 mcg PO MO [facility] Last Admin: 05/22/21 09:45 Dose: Not Given Documented by: Haloperidol (Haloperidol 5 Mg Tablet) 5 mg PO BEDTIME [facility] Last Admin: 05/26/21 20:23 Dose: 5 mg Documented by: Haloperidol Decanoate (Haloperidol Decanoate 50 Mg/Ml Ampul) 75 mg IM Q28D [facility] Last Admin: 05/23/21 11:19 Dose: 75 mg Documented by: Hydrochlorothiazide (Hydrochlorothiazide 12.5 Mg Tablet) 12.5 mg PO DAILY [facility]; Protocol Last Admin: 05/27/21 08:32 Dose: 12.5 mg Documented by: Hydroxyzine HCl (Hydroxyzine Hcl 25 Mg Tablet) 25 mg PO Q6H PRN PRN Reason: Anxiety Last Admin: 05/26/21 08:29 Dose: 25 mg Documented by: Loperamide HCl (Loperamide Hcl 2 Mg Capsule) 2 mg PO Q6H PRN PRN Reason: Constipation Magnesium Hydroxide (Milk Of Magnesia 30 Ml Oral.Susp) 30 ml PO DAILY PRN PRN Reason: Constipation Last Admin: 05/01/21 06:49 Dose: 30 ml Documented by: Magnesium Hydroxide (Milk Of Magnesia 30 Ml Oral.Susp) 30 ml PO DAILY PRN PRN Reason: Constipation Mirtazapine (Mirtazapine 15 Mg Tablet) 15 mg PO BEDTIME [facility] Last Admin: 05/26/21 20:23 Dose: 15 mg Documented by: Pt Own Med Odefsey 1 each PO BEDTIME [facility] Last Admin: 05/26/21 20:24 Dose: 1 each Documented by: Olanzapine (Olanzapine 10 Mg Vial) 20 mg IM BEDTIME PRN PRN Reason: refuses PO, as per Milo valdovinos Last Admin: 05/01/21 23:17 Dose: 20 mg Documented by: Olanzapine (Olanzapine Odt 10 Mg Tab.Rapdis) 30 mg TRANSLINGU BEDTIME [facility] Last Admin: 05/26/21 20:23 Dose: 30 mg Documented by: Valproic Acid (Valproic Acid (As Sodium Salt) 250 Mg/5 Ml Solution) 125 mg PO TID [facility] Last Admin: 05/27/21 08:32 Dose: 125 mg Documented by: Allergies Allergies Allergy/AdvReac Type Severity Reaction Status Date / Time No Known Allergies Allergy Unverified 01/28/20 16:07 [No Known Allergies*] Assessment & Plan Assessment & Plan (1) Schizoaffective disorder, bipolar type: Status: Acute Code(s): F25.0 - Schizoaffective disorder, bipolar type (2) Dementia: Status: Acute Code(s): F03.90 - Unspecified dementia without behavioral disturbance Assessment and Plan: Pt is a 65 y.o. male who carries a dx of bipolar disorder, however sx are more in line with schizoaffective disorder bipolar type, as he presents with disorganized thought content, agitation, and paranoia. He has mild cognitive impairment r/t dementia and mental health dx. He is currently non-adherent with PO medications and is presenting [facility] with decompensation in sx. He was aggressive on transport and required IM haldol, however since arriving to the unit he has been med compliant and pleasant. Last received haldol dec on 03/30/21. Has community [facility] Order in chart. Seroquel and risperdal are listed as alternatives. Plan: keep same treatment. Waiting for placement 05/27/2021 Continue current regimen and plans. No changes were made today I spent minutes with the patient and/or on the patient floor today, greater than?50% of which was spent counseling/coordinating care. Reason for contiued inpatient stay Substantial Risk for: inability to function
[2021-05-27 19:30] VITALS: BP 113/78; PULSE 94; RESP 18; TEMP 36.2; O2SAT 94
[2021-05-27] MEDS: Mirtazapine 15 MG TABLET PO (21:02)
[2021-05-27] MEDS: OLANZapine ODT 10 MG TAB.RAPDIS 30 MG TRANSLINGU (21:03)
[2021-05-27] MEDS: HaloperidoL 5 MG TABLET PO (21:03)
[2021-05-28 07:30] VITALS: BP 127/71; PULSE 71; RESP 17; TEMP 35.9; O2SAT 94
[2021-05-28] MEDS: amLODIPine Besylate 2.5 MG TABLET PO (09:08)
[2021-05-28] MEDS: hydroCHLOROthiazide 12.5 MG TABLET PO (09:08)
--- NOTE | 2021-05-28 10:11 | P.PNPSI_ITS ---
Subjective Subjective Date of Service: 05/28/21 Reason For Visit: Delusions Medical Problems Affecting Mental Status: No Interim History: Patient was seen and discussed in rounds today. Records and plans reviewed. He is doing better. He is eating better and very close to baseline. No delusions. He has been pleasant and interactive. He is med compliant. No complaints or side effects. No changes were made today. Medication Compliance: Yes Side effects from medications: No Review of Systems Review of Systems Yes all other systems are reviewed and are negative Diagnostics Vital Signs (24Hr): Vital Signs - 24 hr 05/27/21 19:30 05/28/21 07:30 Temperature 97.1 F 96.7 F L Pulse Rate 94 71 Respiratory Rate 18 17 Blood Pressure 113/78 127/71 Pulse Oximetry 94 94 BMI result Body Mass Index 18.4 Labs Results: 03/31/21 21:09 03/31/21 21:09 Medications Medications Current Medications Acetaminophen (Acetaminophen 325 Mg Tablet) 650 mg PO Q6H PRN PRN Reason: Headache/Pain Mild Scale (1-3) Last Admin: 05/11/21 20:02 Dose: 650 mg Documented by: Al Hydroxide/Mg Hydroxide (Magnesium Hydrox/Alum Hydrox 30 Ml Oral.Susp) 30 ml PO Q6H PRN PRN Reason: Heartburn/Nausea Amlodipine Besylate (Amlodipine Besylate 2.5 Mg Tablet) 2.5 mg PO DAILY [facility]; Protocol Last Admin: 05/28/21 09:08 Dose: 2.5 mg Documented by: Clonidine HCl (Clonidine Hcl 0.1 Mg Tablet) 0.1 mg PO Q2H PRN; Protocol PRN Reason: SBP > 150 Last Admin: 04/05/21 21:47 Dose: 0.1 mg Documented by: Ergocalciferol (Ergocalciferol (Vitamin D2) 1,250 Mcg Capsule) 1,250 mcg PO MO [facility] Last Admin: 05/22/21 09:45 Dose: Not Given Documented by: Haloperidol (Haloperidol 5 Mg Tablet) 5 mg PO BEDTIME [facility] Last Admin: 05/27/21 21:03 Dose: 5 mg Documented by: Haloperidol Decanoate (Haloperidol Decanoate 50 Mg/Ml Ampul) 75 mg IM Q28D [facility] Last Admin: 05/23/21 11:19 Dose: 75 mg Documented by: Hydrochlorothiazide (Hydrochlorothiazide 12.5 Mg Tablet) 12.5 mg PO DAILY [facility]; Protocol Last Admin: 05/28/21 09:08 Dose: 12.5 mg Documented by: Hydroxyzine HCl (Hydroxyzine Hcl 25 Mg Tablet) 25 mg PO Q6H PRN PRN Reason: Anxiety Last Admin: 05/26/21 08:29 Dose: 25 mg Documented by: Loperamide HCl (Loperamide Hcl 2 Mg Capsule) 2 mg PO Q6H PRN PRN Reason: Constipation Magnesium Hydroxide (Milk Of Magnesia 30 Ml Oral.Susp) 30 ml PO DAILY PRN PRN Reason: Constipation Last Admin: 05/01/21 06:49 Dose: 30 ml Documented by: Magnesium Hydroxide (Milk Of Magnesia 30 Ml Oral.Susp) 30 ml PO DAILY PRN PRN Reason: Constipation Mirtazapine (Mirtazapine 15 Mg Tablet) 15 mg PO BEDTIME [facility] Last Admin: 05/27/21 21:02 Dose: 15 mg Documented by: Pt Own Med Odefsey 1 each PO BEDTIME [facility] Last Admin: 05/27/21 21:02 Dose: 1 each Documented by: Olanzapine (Olanzapine 10 Mg Vial) 20 mg IM BEDTIME PRN PRN Reason: refuses PO, as per Milo valdovinos Last Admin: 05/01/21 23:17 Dose: 20 mg Documented by: Olanzapine (Olanzapine Odt 10 Mg Tab.Rapdis) 30 mg TRANSLINGU BEDTIME [facility] Last Admin: 05/27/21 21:03 Dose: 30 mg Documented by: Valproic Acid (Valproic Acid (As Sodium Salt) 250 Mg/5 Ml Solution) 125 mg PO TID [facility] Last Admin: 05/28/21 09:08 Dose: 125 mg Documented by: Allergies Allergies Allergy/AdvReac Type Severity Reaction Status Date / Time No Known Allergies Allergy Unverified 01/28/20 16:07 [No Known Allergies*] Assessment & Plan Assessment & Plan (1) Schizoaffective disorder, bipolar type: Status: Acute Code(s): F25.0 - Schizoaffective disorder, bipolar type (2) Dementia: Status: Acute Code(s): F03.90 - Unspecified dementia without behavioral disturbance Assessment and Plan: Pt is a 65 y.o. male who carries a dx of bipolar disorder, however sx are more in line with schizoaffective disorder bipolar type, as he presents with disorganized thought content, agitation, and paranoia. He has mild cognitive impairment r/t dementia and mental health dx. He is currently non-adherent with PO medications and is presenting [facility] with decompensation in sx. He was aggressive on transport and required IM haldol, however since arriving to the unit he has been med compliant and pleasant. Last received haldol dec on 03/30/21. Has community [facility] Order in chart. Seroquel and risperdal are listed as alternatives. Plan: keep same treatment. Waiting for placement 05/27/2021 Continue current regimen and plans. No changes were made today 05/28/2021 Continue current plans and regimen. No changes were made today I spent minutes with the patient and/or on the patient floor today, greater than?50% of which was spent counseling/coordinating care. Reason for contiued inpatient stay Substantial Risk for: other
[2021-05-28] MEDS: Mirtazapine 15 MG TABLET PO (20:42)
[2021-05-28] MEDS: HaloperidoL 5 MG TABLET PO (20:42)
[2021-05-28] MEDS: OLANZapine ODT 10 MG TAB.RAPDIS 30 MG TRANSLINGU (20:43)
[2021-05-28 23:03] VITALS: BP 112/69; PULSE 94; RESP 17; TEMP 36.6; O2SAT 95
[2021-05-29 06:00] VITALS: BP 126/81; PULSE 90; RESP 16; TEMP 36; O2SAT 98
[2021-05-29] MEDS: hydroCHLOROthiazide 12.5 MG TABLET PO (08:29)
[2021-05-29] MEDS: amLODIPine Besylate 2.5 MG TABLET PO (08:29)
[2021-05-29 09:29] VITALS: BP 126/81; PULSE 90; RESP 16; TEMP 36; O2SAT 98
--- NOTE | 2021-05-29 13:52 | HO.PSYCHPN ---
Subjective Subjective Date of Service: 05/29/21 Reason For Visit: Delusions Subjective Notes: Conditional Voluntary Healthcare Proxy: Yes Interim History: The nursing staff reported no changes on his mental status, participates on groups. On inteview, pleasant, no changes, waiting for placement. Mental Status Exam Mental Status Exam Patient Appearance: Well Grooomed Patient Orientation: Person Level of Consciousness: Awake Patient Behavior: Appropriate Mood Description: Calm Affect Description: Calm Patient Cognition Impaired: Yes Ability to Follow Directions: Good Speech Pattern: Clear Memory Description: Intact Hallucinations: None Delusions: Not Present Thought Process: Illogical Thought Content: positive for Loose Associations and positive for Thought Blocking Judgement: Fair Diagnostics Vital Signs (24Hr): Vital Signs - 24 hr 05/28/21 23:03 05/29/21 06:00 05/29/21 09:29 Temperature 97.8 F 96.8 F 96.8 F Pulse Rate 94 90 90 Respiratory Rate 17 16 16 Blood Pressure 112/69 126/81 126/81 Pulse Oximetry 95 98 98 BMI result Body Mass Index 18.4 Labs Results: 03/31/21 21:09 03/31/21 21:09 Medications Medications Current Medications Acetaminophen (Acetaminophen 325 Mg Tablet) 650 mg PO Q6H PRN PRN Reason: Headache/Pain Mild Scale (1-3) Last Admin: 05/11/21 20:02 Dose: 650 mg Documented by: Al Hydroxide/Mg Hydroxide (Magnesium Hydrox/Alum Hydrox 30 Ml Oral.Susp) 30 ml PO Q6H PRN PRN Reason: Heartburn/Nausea Amlodipine Besylate (Amlodipine Besylate 2.5 Mg Tablet) 2.5 mg PO DAILY [facility]; Protocol Last Admin: 05/29/21 08:29 Dose: 2.5 mg Documented by: Clonidine HCl (Clonidine Hcl 0.1 Mg Tablet) 0.1 mg PO Q2H PRN; Protocol PRN Reason: SBP > 150 Last Admin: 04/05/21 21:47 Dose: 0.1 mg Documented by: Ergocalciferol (Ergocalciferol (Vitamin D2) 1,250 Mcg Capsule) 1,250 mcg PO MO [facility] Last Admin: 05/29/21 13:48 Dose: Not Given Documented by: Haloperidol (Haloperidol 5 Mg Tablet) 5 mg PO BEDTIME [facility] Last Admin: 05/28/21 20:42 Dose: 5 mg Documented by: Haloperidol Decanoate (Haloperidol Decanoate 50 Mg/Ml Ampul) 75 mg IM Q28D [facility] Last Admin: 05/23/21 11:19 Dose: 75 mg Documented by: Hydrochlorothiazide (Hydrochlorothiazide 12.5 Mg Tablet) 12.5 mg PO DAILY [facility]; Protocol Last Admin: 05/29/21 08:29 Dose: 12.5 mg Documented by: Hydroxyzine HCl (Hydroxyzine Hcl 25 Mg Tablet) 25 mg PO Q6H PRN PRN Reason: Anxiety Last Admin: 05/26/21 08:29 Dose: 25 mg Documented by: Loperamide HCl (Loperamide Hcl 2 Mg Capsule) 2 mg PO Q6H PRN PRN Reason: Constipation Magnesium Hydroxide (Milk Of Magnesia 30 Ml Oral.Susp) 30 ml PO DAILY PRN PRN Reason: Constipation Last Admin: 05/01/21 06:49 Dose: 30 ml Documented by: Magnesium Hydroxide (Milk Of Magnesia 30 Ml Oral.Susp) 30 ml PO DAILY PRN PRN Reason: Constipation Mirtazapine (Mirtazapine 15 Mg Tablet) 15 mg PO BEDTIME [facility] Last Admin: 05/28/21 20:42 Dose: 15 mg Documented by: Pt Own Med Odefsey 1 each PO BEDTIME [facility] Last Admin: 05/28/21 20:43 Dose: 1 each Documented by: Olanzapine (Olanzapine 10 Mg Vial) 20 mg IM BEDTIME PRN PRN Reason: refuses PO, as per Milo valdovinos Last Admin: 05/01/21 23:17 Dose: 20 mg Documented by: Olanzapine (Olanzapine Odt 10 Mg Tab.Rapdis) 30 mg TRANSLINGU BEDTIME [facility] Last Admin: 05/28/21 20:43 Dose: 30 mg Documented by: Valproic Acid (Valproic Acid (As Sodium Salt) 250 Mg/5 Ml Solution) 125 mg PO TID [facility] Last Admin: 05/29/21 13:48 Dose: Not Given Documented by: Allergies Allergies Allergy/AdvReac Type Severity Reaction Status Date / Time No Known Allergies Allergy Unverified 01/28/20 16:07 [No Known Allergies*] Assessment & Plan Assessment & Plan (1) Schizoaffective disorder, bipolar type: Status: Acute Code(s): F25.0 - Schizoaffective disorder, bipolar type (2) Dementia: Status: Acute Code(s): F03.90 - Unspecified dementia without behavioral disturbance Assessment and Plan: Pt is a 65 y.o. male who carries a dx of bipolar disorder, however sx are more in line with schizoaffective disorder bipolar type, as he presents with disorganized thought content, agitation, and paranoia. He has mild cognitive impairment r/t dementia and mental health dx. He is currently non-adherent with PO medications and is presenting from [facility] with decompensation in sx. He was aggressive on transport and required IM haldol, however since arriving to the unit he has been med compliant and pleasant. Last received haldol dec on 03/30/21. Has community [facility] Order in chart. Seroquel and risperdal are listed as alternatives. Plan: keep same treatment. Waiting for placement I spent minutes with the patient and/or on the patient floor today, greater than?50% of which was spent counseling/coordinating care. Reason for contiued inpatient stay Substantial Risk for: inability to function, rapid decompensation and med/psych decompensation
[2021-05-29 18:00] VITALS: BP 106/55; PULSE 93; RESP 16; TEMP 37.1; O2SAT 93
[2021-05-29] MEDS: Mirtazapine 15 MG TABLET PO (20:18)
[2021-05-29] MEDS: HaloperidoL 5 MG TABLET PO (20:18)
[2021-05-29] MEDS: OLANZapine ODT 10 MG TAB.RAPDIS 30 MG TRANSLINGU (20:18)
[2021-05-30 06:00] VITALS: BP 123/77; PULSE 87; TEMP 36.4; O2SAT 95
[2021-05-30] MEDS: amLODIPine Besylate 2.5 MG TABLET PO (08:40)
[2021-05-30] MEDS: hydroCHLOROthiazide 12.5 MG TABLET PO (08:40)
--- NOTE | 2021-05-30 16:11 | P.PNPSI_ITS ---
Subjective Subjective Date of Service: 05/30/21 Reason For Visit: Delusions Subjective Notes: Conditional Voluntary Interim History: the nursing staff reports the patient is at baseline, pleasantly confused but easily redirectable. On interview the patient denies new symptoms Mental Status Exam Mental Status Exam Patient Appearance: Disheveled and Unkempt Patient Orientation: Person Level of Consciousness: Awake Patient Behavior: Cooperative Mood Description: Withdrawn Affect Description: Constricted Patient Cognition Impaired: Yes Ability to Follow Directions: Good Speech Pattern: Appropriate Hallucinations: None Delusions: Not Present Thought Process: Linear Thought Content: positive for Circumstantial and positive for Poverty of Content Judgement: Fair Diagnostics Vital Signs (24Hr): Vital Signs - 24 hr 05/29/21 18:00 05/30/21 06:00 Temperature 98.8 F 97.6 F Pulse Rate 93 87 Respiratory Rate 16 Blood Pressure 106/55 L 123/77 Pulse Oximetry 93 95 BMI result Body Mass Index 18.4 Labs Results: 03/31/21 21:09 03/31/21 21:09 Medications Medications Current Medications Acetaminophen (Acetaminophen 325 Mg Tablet) 650 mg PO Q6H PRN PRN Reason: Headache/Pain Mild Scale (1-3) Last Admin: 05/11/21 20:02 Dose: 650 mg Documented by: Al Hydroxide/Mg Hydroxide (Magnesium Hydrox/Alum Hydrox 30 Ml Oral.Susp) 30 ml PO Q6H PRN PRN Reason: Heartburn/Nausea Amlodipine Besylate (Amlodipine Besylate 2.5 Mg Tablet) 2.5 mg PO DAILY [facility]; Protocol Last Admin: 05/30/21 08:40 Dose: 2.5 mg Documented by: Clonidine HCl (Clonidine Hcl 0.1 Mg Tablet) 0.1 mg PO Q2H PRN; Protocol PRN Reason: SBP > 150 Last Admin: 04/05/21 21:47 Dose: 0.1 mg Documented by: Ergocalciferol (Ergocalciferol (Vitamin D2) 1,250 Mcg Capsule) 1,250 mcg PO MO [facility] Last Admin: 05/29/21 13:48 Dose: Not Given Documented by: Haloperidol (Haloperidol 5 Mg Tablet) 5 mg PO BEDTIME [facility] Last Admin: 05/29/21 20:18 Dose: 5 mg Documented by: Haloperidol Decanoate (Haloperidol Decanoate 50 Mg/Ml Ampul) 75 mg IM Q28D [facility] Last Admin: 05/23/21 11:19 Dose: 75 mg Documented by: Hydrochlorothiazide (Hydrochlorothiazide 12.5 Mg Tablet) 12.5 mg PO DAILY [facility]; Protocol Last Admin: 05/30/21 08:40 Dose: 12.5 mg Documented by: Hydroxyzine HCl (Hydroxyzine Hcl 25 Mg Tablet) 25 mg PO Q6H PRN PRN Reason: Anxiety Last Admin: 05/26/21 08:29 Dose: 25 mg Documented by: Loperamide HCl (Loperamide Hcl 2 Mg Capsule) 2 mg PO Q6H PRN PRN Reason: Constipation Magnesium Hydroxide (Milk Of Magnesia 30 Ml Oral.Susp) 30 ml PO DAILY PRN PRN Reason: Constipation Last Admin: 05/01/21 06:49 Dose: 30 ml Documented by: Magnesium Hydroxide (Milk Of Magnesia 30 Ml Oral.Susp) 30 ml PO DAILY PRN PRN Reason: Constipation Mirtazapine (Mirtazapine 15 Mg Tablet) 15 mg PO BEDTIME [facility] Last Admin: 05/29/21 20:18 Dose: 15 mg Documented by: Pt Own Med Odefsey 1 each PO BEDTIME [facility] Last Admin: 05/29/21 20:18 Dose: 1 each Documented by: Olanzapine (Olanzapine 10 Mg Vial) 20 mg IM BEDTIME PRN PRN Reason: refuses PO, as per Milo valdovinos Last Admin: 05/01/21 23:17 Dose: 20 mg Documented by: Olanzapine (Olanzapine Odt 10 Mg Tab.Rapdis) 30 mg TRANSLINGU BEDTIME [facility] Last Admin: 05/29/21 20:18 Dose: 30 mg Documented by: Valproic Acid (Valproic Acid (As Sodium Salt) 250 Mg/5 Ml Solution) 125 mg PO TID [facility] Last Admin: 05/30/21 08:40 Dose: 125 mg Documented by: Allergies Allergies Allergy/AdvReac Type Severity Reaction Status Date / Time No Known Allergies Allergy Unverified 01/28/20 16:07 [No Known Allergies*] Assessment & Plan Assessment & Plan (1) Schizoaffective disorder, bipolar type: Status: Acute Code(s): F25.0 - Schizoaffective disorder, bipolar type (2) Dementia: Status: Acute Code(s): F03.90 - Unspecified dementia without behavioral disturbance Assessment and Plan: Pt is a 65 y.o. male who carries a dx of bipolar disorder, however sx are more in line with schizoaffective disorder bipolar type, as he presents with disorganized thought content, agitation, and paranoia. He has mild cognitive impairment r/t dementia and mental health dx. He is currently non-adherent with PO medications and is presenting [facility] with decompensation in sx. He was aggressive on transport and required IM haldol, however since arriving to the unit he has been med compliant and pleasant. Last received haldol dec on 03/30/21. Has omar Regan's Order in chart. Seroquel and risperdal are listed as alternatives. Plan: keep same treatment. Waiting for placement I spent minutes with the patient and/or on the patient floor today, greater than?50% of which was spent counseling/coordinating care. Reason for contiued inpatient stay Substantial Risk for: inability to function, rapid decompensation and med/psych decompensation
[2021-05-30 18:00] VITALS: BP 113/71; PULSE 94; RESP 18; TEMP 36.6; O2SAT 92
[2021-05-30] MEDS: OLANZapine ODT 10 MG TAB.RAPDIS 30 MG TRANSLINGU (20:52)
[2021-05-30] MEDS: HaloperidoL 5 MG TABLET PO (20:53)
[2021-05-30] MEDS: Mirtazapine 15 MG TABLET PO (20:53)
[2021-05-31 08:14] VITALS: BP 156/100; PULSE 93; RESP 18; TEMP 36.1; O2SAT 95
[2021-05-31] MEDS: amLODIPine Besylate 2.5 MG TABLET PO (08:17)
[2021-05-31] MEDS: hydroCHLOROthiazide 12.5 MG TABLET PO (08:17)
--- NOTE | 2021-05-31 14:44 | MHC.CLN ---
F/U VISITED WITH PATIENT DURING REC ACTIVITY IN COMMON AREA. STATED THAT RECEIVES AND LIKES 2 ENSURES PER MEAL. SUPPLEMENTS PROVIDE 2100 KCALS, 78-120 G PROTEIN. STAFF REPORTS THAT HE IS EATING BETTER. SKIN: NO PRESSURE AREAS. CONTINUE REGULAR DIET PLUS SUPPLEMENTS. CONTINUE TO FOLLOW WEEKLY.
--- NOTE | 2021-05-31 16:12 | P.PNPSI_ITS ---
Subjective Subjective Date of Service: 05/31/21 Reason For Visit: Delusions Subjective Notes: Conditional Voluntary Interim History: the nursing staff reports that the patient has been pleasant and cooperative, visible in the unit, attending to groups. On interview the patient denies new symptoms he is waiting for placement. Mental Status Exam Mental Status Exam Patient Appearance: Disheveled and Unkempt Patient Orientation: Person Level of Consciousness: Awake Patient Behavior: Appropriate Mood Description: Depressed Affect Description: Calm Patient Cognition Impaired: Yes Ability to Follow Directions: Good Speech Pattern: Clear Memory Description: Intact Hallucinations: None Delusions: Not Present Thought Process: Linear Thought Content: positive for Perseveration, positive for Poverty of Content and positive for Thought Blocking Judgement: Fair Diagnostics Vital Signs (24Hr): Vital Signs - 24 hr 05/30/21 18:00 05/31/21 08:14 Temperature 97.9 F 96.9 F Pulse Rate 94 93 Respiratory Rate 18 18 Blood Pressure 113/71 156/100 H Pulse Oximetry 92 95 BMI result Body Mass Index 18.4 Labs Results: 03/31/21 21:09 03/31/21 21:09 Medications Medications Current Medications Acetaminophen (Acetaminophen 325 Mg Tablet) 650 mg PO Q6H PRN PRN Reason: Headache/Pain Mild Scale (1-3) Last Admin: 05/11/21 20:02 Dose: 650 mg Documented by: Al Hydroxide/Mg Hydroxide (Magnesium Hydrox/Alum Hydrox 30 Ml Oral.Susp) 30 ml PO Q6H PRN PRN Reason: Heartburn/Nausea Amlodipine Besylate (Amlodipine Besylate 2.5 Mg Tablet) 2.5 mg PO DAILY [facility]; Protocol Last Admin: 05/31/21 08:17 Dose: 2.5 mg Documented by: Clonidine HCl (Clonidine Hcl 0.1 Mg Tablet) 0.1 mg PO Q2H PRN; Protocol PRN Reason: SBP > 150 Last Admin: 04/05/21 21:47 Dose: 0.1 mg Documented by: Ergocalciferol (Ergocalciferol (Vitamin D2) 1,250 Mcg Capsule) 1,250 mcg PO MO [facility] Last Admin: 05/29/21 13:48 Dose: Not Given Documented by: Haloperidol (Haloperidol 5 Mg Tablet) 5 mg PO BEDTIME [facility] Last Admin: 05/30/21 20:53 Dose: 5 mg Documented by: Haloperidol Decanoate (Haloperidol Decanoate 50 Mg/Ml Ampul) 75 mg IM Q28D [facility] Last Admin: 05/23/21 11:19 Dose: 75 mg Documented by: Hydrochlorothiazide (Hydrochlorothiazide 12.5 Mg Tablet) 12.5 mg PO DAILY [facility]; Protocol Last Admin: 05/31/21 08:17 Dose: 12.5 mg Documented by: Hydroxyzine HCl (Hydroxyzine Hcl 25 Mg Tablet) 25 mg PO Q6H PRN PRN Reason: Anxiety Last Admin: 05/26/21 08:29 Dose: 25 mg Documented by: Loperamide HCl (Loperamide Hcl 2 Mg Capsule) 2 mg PO Q6H PRN PRN Reason: Constipation Magnesium Hydroxide (Milk Of Magnesia 30 Ml Oral.Susp) 30 ml PO DAILY PRN PRN Reason: Constipation Last Admin: 05/01/21 06:49 Dose: 30 ml Documented by: Magnesium Hydroxide (Milk Of Magnesia 30 Ml Oral.Susp) 30 ml PO DAILY PRN PRN Reason: Constipation Mirtazapine (Mirtazapine 15 Mg Tablet) 15 mg PO BEDTIME [facility] Last Admin: 05/30/21 20:53 Dose: 15 mg Documented by: Pt Own Med Odefsey 1 each PO BEDTIME [facility] Last Admin: 05/30/21 20:52 Dose: 1 each Documented by: Olanzapine (Olanzapine 10 Mg Vial) 20 mg IM BEDTIME PRN PRN Reason: refuses PO, as per Milo valdovinos Last Admin: 05/01/21 23:17 Dose: 20 mg Documented by: Olanzapine (Olanzapine Odt 10 Mg Tab.Rapdis) 30 mg TRANSLINGU BEDTIME [facility] Last Admin: 05/30/21 20:52 Dose: 30 mg Documented by: Valproic Acid (Valproic Acid (As Sodium Salt) 250 Mg/5 Ml Solution) 125 mg PO TID [facility] Last Admin: 05/31/21 14:49 Dose: 125 mg Documented by: Allergies Allergies Allergy/AdvReac Type Severity Reaction Status Date / Time No Known Allergies Allergy Unverified 01/28/20 16:07 [No Known Allergies*] Assessment & Plan Assessment & Plan (1) Schizoaffective disorder, bipolar type: Status: Acute Code(s): F25.0 - Schizoaffective disorder, bipolar type (2) Dementia: Status: Acute Code(s): F03.90 - Unspecified dementia without behavioral disturbance Assessment and Plan: Pt is a 65 y.o. male who carries a dx of bipolar disorder, however sx are more in line with schizoaffective disorder bipolar type, as he presents with disorganized thought content, agitation, and paranoia. He has mild cognitive impairment r/t dementia and mental health dx. He is currently non-adherent with PO medications and [facility] with decomp[facility] in sx. He was aggressive on transport and required IM haldol, however since arriving to the unit he has been med compliant and pleasant. Last received haldol dec on 03/30/21. Has community Jass[facility] Order in chart. Seroquel and risperdal are listed as alternatives. Plan: keep same treatment. Waiting for placement I spent minutes with the patient and/or on the patient floor today, greater than?50% of which was spent counseling/coordinating care. Reason for contiued inpatient stay Substantial Risk for: inability to function, rapid decompensation and med/psych decompensation
[2021-05-31] MEDS: OLANZapine ODT 10 MG TAB.RAPDIS 30 MG TRANSLINGU (22:10)
[2021-05-31] MEDS: Mirtazapine 15 MG TABLET PO (22:11)
[2021-06-01] MEDS: HaloperidoL 5 MG TABLET PO ×2 (02:35→21:15)
[2021-06-01 07:00] VITALS: BMI 18.8
[2021-06-01 08:00] VITALS: BP 119/81; PULSE 99; TEMP 36.3; O2SAT 97
[2021-06-01] MEDS: hydrOXYzine HCL 25 MG TABLET PO (08:34)
[2021-06-01] MEDS: hydroCHLOROthiazide 12.5 MG TABLET PO (08:35)
[2021-06-01] MEDS: amLODIPine Besylate 2.5 MG TABLET PO (08:35)
--- NOTE | 2021-06-01 16:20 | HO.PSYCHPN ---
Subjective Subjective Date of Service: 06/01/21 Reason For Visit: Delusions Subjective Notes: Conditional Voluntary Interim History: The nursing staff reports the patient is pleasant and cooperative, at baseline. On interview the patient denies new symptoms he is waiting for placement. Mental Status Exam Mental Status Exam Patient Appearance: Unkempt Patient Orientation: Person Level of Consciousness: Awake Patient Behavior: Cooperative Mood Description: Constricted Affect Description: Constricted Patient Cognition Impaired: Yes Ability to Follow Directions: Good Speech Pattern: Clear Hallucinations: None Delusions: Not Present Thought Process: Linear Thought Content: positive for Circumstantial and positive for Poverty of Content Judgement: Fair Diagnostics Vital Signs (24Hr): Vital Signs - 24 hr 06/01/21 08:00 Temperature 97.4 F Pulse Rate 99 Blood Pressure 119/81 Pulse Oximetry 97 BMI result Body Mass Index 18.8 Labs Results: 03/31/21 21:09 03/31/21 21:09 Medications Medications Current Medications Acetaminophen (Acetaminophen 325 Mg Tablet) 650 mg PO Q6H PRN PRN Reason: Headache/Pain Mild Scale (1-3) Last Admin: 05/11/21 20:02 Dose: 650 mg Documented by: Al Hydroxide/Mg Hydroxide (Magnesium Hydrox/Alum Hydrox 30 Ml Oral.Susp) 30 ml PO Q6H PRN PRN Reason: Heartburn/Nausea Amlodipine Besylate (Amlodipine Besylate 2.5 Mg Tablet) 2.5 mg PO DAILY [facility]; Protocol Last Admin: 06/01/21 08:35 Dose: 2.5 mg Documented by: Clonidine HCl (Clonidine Hcl 0.1 Mg Tablet) 0.1 mg PO Q2H PRN; Protocol PRN Reason: SBP > 150 Last Admin: 04/05/21 21:47 Dose: 0.1 mg Documented by: Ergocalciferol (Ergocalciferol (Vitamin D2) 1,250 Mcg Capsule) 1,250 mcg PO MO [facility] Last Admin: 05/29/21 13:48 Dose: Not Given Documented by: Haloperidol (Haloperidol 5 Mg Tablet) 5 mg PO BEDTIME [facility] Last Admin: 06/01/21 02:35 Dose: 5 mg Documented by: Haloperidol Decanoate (Haloperidol Decanoate 50 Mg/Ml Ampul) 75 mg IM Q28D [facility] Last Admin: 05/23/21 11:19 Dose: 75 mg Documented by: Hydrochlorothiazide (Hydrochlorothiazide 12.5 Mg Tablet) 12.5 mg PO DAILY [facility]; Protocol Last Admin: 06/01/21 08:35 Dose: 12.5 mg Documented by: Hydroxyzine HCl (Hydroxyzine Hcl 25 Mg Tablet) 25 mg PO Q6H PRN PRN Reason: Anxiety Last Admin: 06/01/21 08:34 Dose: 25 mg Documented by: Loperamide HCl (Loperamide Hcl 2 Mg Capsule) 2 mg PO Q6H PRN PRN Reason: Constipation Magnesium Hydroxide (Milk Of Magnesia 30 Ml Oral.Susp) 30 ml PO DAILY PRN PRN Reason: Constipation Last Admin: 05/01/21 06:49 Dose: 30 ml Documented by: Magnesium Hydroxide (Milk Of Magnesia 30 Ml Oral.Susp) 30 ml PO DAILY PRN PRN Reason: Constipation Mirtazapine (Mirtazapine 15 Mg Tablet) 15 mg PO BEDTIME [facility] Last Admin: 05/31/21 22:11 Dose: 15 mg Documented by: Pt Own Med Odefsey 1 each PO BEDTIME [facility] Last Admin: 05/31/21 22:12 Dose: 1 each Documented by: Olanzapine (Olanzapine 10 Mg Vial) 20 mg IM BEDTIME PRN PRN Reason: refuses PO, as per Milo valdovinos Last Admin: 05/01/21 23:17 Dose: 20 mg Documented by: Olanzapine (Olanzapine Odt 10 Mg Tab.Rapdis) 30 mg TRANSLINGU BEDTIME [facility] Last Admin: 05/31/21 22:10 Dose: 30 mg Documented by: Valproic Acid (Valproic Acid (As Sodium Salt) 250 Mg/5 Ml Solution) 125 mg PO TID [facility] Last Admin: 06/01/21 14:30 Dose: 125 mg Documented by: Allergies Allergies Allergy/AdvReac Type Severity Reaction Status Date / Time No Known Allergies Allergy Unverified 01/28/20 16:07 [No Known Allergies*] Assessment & Plan Assessment & Plan (1) Schizoaffective disorder, bipolar type: Status: Acute Code(s): F25.0 - Schizoaffective disorder, bipolar type (2) Dementia: Status: Acute Code(s): F03.90 - Unspecified dementia without behavioral disturbance Assessment and Plan: Pt is a 65 y.o. male who carries a dx of bipolar disorder, however sx are more in line with schizoaffective disorder bipolar type, as he presents with disorganized thought content, agitation, and paranoia. He has mild cognitive impairment r/t dementia and mental health dx. He is currently non-adherent with PO medications and [facility] with decomp[facility] in sx. He was aggressive on transport and required IM haldol, however since arriving to the unit he has been med compliant and pleasant. Last received haldol dec on 03/30/21. Has community [facility]ass[facility] Order in chart. Seroquel and risperdal are listed as alternatives. Plan: keep same treatment. Waiting for placement I spent minutes with the patient and/or on the patient floor today, greater than?50% of which was spent counseling/coordinating care. Reason for contiued inpatient stay Substantial Risk for: inability to function, rapid decompensation and med/psych decompensation
[2021-06-01 19:45] VITALS: BP 136/78; PULSE 91; RESP 18; TEMP 36.7; O2SAT 94
[2021-06-01] MEDS: OLANZapine ODT 10 MG TAB.RAPDIS 30 MG TRANSLINGU (21:15)
[2021-06-01] MEDS: Mirtazapine 15 MG TABLET PO (21:15)
[2021-06-01 22:23] LABS: COVID-19 Test Negative (Negative); IDNOW Serial# 9DD0AD1C
[2021-06-02 06:00] VITALS: BP 140/75; PULSE 81; RESP 16; TEMP 36.7; O2SAT 96
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
[2021-06-02] MEDS: amLODIPine Besylate 2.5 MG TABLET PO (08:26)
[2021-06-02] MEDS: hydroCHLOROthiazide 12.5 MG TABLET PO (08:27)
--- NOTE | 2021-06-02 13:06 | PC.NURSE ---
Patient is alert and oriented and in euthymic mood. Reports he is glad to be returning to [facility]. Declined review of medications. Discharge meds, appointments, and instructions have been reviewed with [facility]. Guardian Michelle Wrightes aware of disposition and in agreement. Pt. left unit on stretcher accompanied by 2 cook pressure at 1 pm.
== END 2021-06-02 13:07 | DRG 885 ==
LOC: HO.ED 19:32 → HO.PGERI 04-03 17:43
PROVIDERS: Emergency Medicine; Podiatrist Foot & Ankle Surgery; Social Worker; Admitting Provider Registered Nurse; Emergency Provider Emergency Medicine Emergency Medical Services; Visit Provider Psychiatry & Neurology Psychiatry
DX: F25.0 Schizoaffective disorder, bipolar type (principal); F03.90 Unspecified dementia, unspecified severity, without behavioral disturbance, psychotic disturbance, mood disturbance, and anxiety; Z20.822 Contact with and (suspected) exposure to COVID-19; Z79.899 Other long term (current) drug therapy
CPT/HCPCS: 0241U; 36415; 80048; 80061; 80076; 80177; 80307; 81001; 82077; 82140; 82607; 82746; 83036; 83735; 84439; 84443; 85025; 85610; 87635; 92610; 96372; 99285; J2060

== ENCOUNTER 2023-04-07 19:57 | Inpatient (IN) | payer MEDICARE, MEDICAID, SELFPAY ==
--- NOTE | ~2023-04-07 | XR_ITS ---
EXAMINATION: XR CHEST CLINICAL INFORMATION: Rule out aspiration COMPARISON: Previous chest x-ray April 10, 2023 TECHNIQUE: Frontal view of the chest was obtained. FINDINGS: The cardiac and mediastinal contours are stable. There is question small infiltrate at the left lung base. This is new from March exam. The lungs are otherwise clear. No pleural effusion or pneumothorax. Air-filled slightly distended stomach and bowel. XR/XR chest 1V IMPRESSION: Question left base infiltrate. Air-filled distended stomach and bowel.
--- NOTE | ~2023-04-07 | XR_ITS ---
EXAMINATION: XR CHEST CLINICAL INFORMATION: Question aspiration pneumonia. COMPARISON: Chest radiograph dated 03/27/2013. TECHNIQUE: Frontal views of the chest was obtained. The submitted images are rotated. FINDINGS: The heart, great vessels, pulmonary vasculature and mediastinum are normal, accounting for rotation. No congestive heart failure is seen. There is no infiltrate, effusion or pneumothorax. There is very mild linear atelectasis in the mid and lower left lung, likely secondary to gaseous distention of the stomach. There is no acute osseous abnormality. XR/XR chest 1V IMPRESSION: There is bulky-focal very mild linear scar/subsegmental atelectasis in the mid to lower left lung, likely related gaseous distention of the stomach.
[2023-04-07 20:04] VITALS: BP 122/83; PULSE 66; O2SAT 100
[2023-04-07 20:18] VITALS: BP 119/89; PULSE 118; RESP 18; TEMP 36.7; O2SAT 97; BMI 19.5
--- NOTE | 2023-04-07 20:35 | ED.PSYCH ---
HPI - Psych General Chief Complaint: Behavioral Concerns Stated Complaint: AGGRESSIVE BEHAVIOR FROM SNF PER EMS Time Seen by Provider: 04/07/23 20:30 Source: EMS and RN notes reviewed Mode of arrival: EMS History of Present Illness HPI Narrative: Patient with dementia schizoaffective disorder bipolar type so came from [facility] as patient was very aggressive behavior and refusing to take his medication after arrival in the ER patient was, cooperative and sleeping Related Data Previous Rx's Medication Instructions Recorded amlodipine 2.5 mg tablet 2.5 mg PO DAILY 30 days #30 tabs 06/02/21 emtricitabine 200 mg-rilpivirine 1 tab PO DAILY #30 tabs 06/02/21 25 mg-tenofovir alafenam 25 mg tablet (Abram) ergocalciferol (vitamin D2) 1,250 1,250 mcg PO MO #30 caps 06/02/21 mcg (50,000 unit) capsule haloperidol 5 mg tablet 5 mg PO BEDTIME 30 days #30 tabs 06/02/21 haloperidol decanoate 50 mg/mL 75 mg (1.5 mL) IM Q28D 28 days 06/02/21 intramuscular solution #1.5 mL hydrochlorothiazide 12.5 mg capsule 1 cap PO DAILY 30 days #30 caps 06/02/21 hydroxyzine HCl 25 mg tablet 25 mg PO Q6H PRN Anxiety 30 days 06/02/21 #90 tabs loperamide 2 mg tablet 2 mg PO Q6H PRN Constipation 30 06/02/21 days #60 tabs magnesium hydroxide 400 mg/5 mL 2,400 mg (30 mL) PO DAILY PRN 06/02/21 oral suspension (Milk of Magnesia) Constipation #355 mL mirtazapine 15 mg tablet 1 tab PO BEDTIME 30 days #30 tabs 06/02/21 olanzapine 10 mg tablet 10 mg PO BEDTIME #30 tabs 06/02/21 olanzapine 20 mg tablet (Zyprexa) 20 mg PO BEDTIME #30 tabs 06/02/21 valproic acid (as sodium salt) 250 125 mg (2.5 mL) PO TID 30 days 06/02/21 mg/5 mL (5 mL) oral solution #225 mL Allergies Allergy/AdvReac Type Severity Reaction Status Date / Time No Known Allergies Allergy Unverified 01/28/20 16:07 [No Known Allergies*] Review of Systems Review of Systems: Yes Unobtainable due to mental status PMFSH Past Medical History Medical History Dementia HIV (human immunodeficiency virus infection) Bipolar 1 disorder Hepatitis C Liver failure HTN (hypertension) Social History Household Members: Other Household Members Other:: Pt in assisted living facility Housing: Assisted Living Facility Housing Other:: [facility] Do you presently have visiting nurse or other home services: No Unable to assess alcohol history related to: Unknown and Refusing to respond Patient Tobacco Use Status: Never used Tobacco e-Cigarette/Vaping Use: Never Used Substance Use Type: Former Substance User Advance Directives: Yes Advance Directives on File: Yes Advance Directives Date on File: 04/18/17 service: No Current occupational status: disabled Sexual orientation: Don't Know Physical Exam Vital Signs: Vital Signs: Last Vital Signs Temp 98.1 F 04/07/23 20:18 Pulse 101 H 04/07/23 23:09 Resp 14 04/07/23 23:09 BP 92/69 04/07/23 23:09 Pulse Ox 95 04/07/23 23:09 O2 Del Method Room Air 04/07/23 23:09 BMI result Body Mass Index 19.5 Appearance: Alert. Demented, No acute distress. Eyes: PERRLA, No Nystagmus ENT: Pharynx normal. Oral Mucosa moist Neck: Normal inspection. Neck supple. CVS: Normal heart rate and rhythm. Pulses normal. Respiratory: No respiratory distress. Equal air entry bilateral, no wheezing/rales/rhonchi Abdomen: Soft and nontender. Bowel sounds are present, no mass palpable, Skin: Skin warm and dry. Normal skin color. Normal skin turgor. Extremities: No lower extremity edema. No calf tenderness Neuro: Alert with significant dementia no focal deficit Medications Administered Discontinued Medications Generic Name Dose Route Start Last Admin Trade Name Freq PRN Reason Stop Dose Admin Haloperidol Lactate 5 mg 04/07/23 20:35 04/07/23 21:30 Haloperidol Lactate 5 Mg/Ml Vial IM 04/07/23 20:36 5 mg ONCE ONE Administration Lorazepam 2 mg 04/07/23 20:35 04/07/23 21:31 Lorazepam 2 Mg/Ml Vial IM 04/07/23 20:36 2 mg ONCE ONE Administration Medical Decision Making Medical Decision Making MDM Narrative: Patient has significant dementia and schizophrenia refusing taking medication for that care team consult for further management Lab Data [facility] Lab Attestation statement: I reviewed the patient's lab results. 04/07/23 23:41 04/07/23 23:41 Labs: Lab Results 04/07/23 Range/Units 23:41 WBC 5.4 (4.8-10.8) X10*3/uL RBC 4.83 (4.60-5.80) X10*6/uL Hgb 14.4 (14.0-18.0) g/dl Hct 44.8 (42.0-52.0) % MCV 92.8 (80.0-98.0) fL MCH 29.8 (27.0-33.0) pg MCHC 32.1 (31.0-36.0) g/dl RDW 13.5 (11.0-16.0) % Plt Count 197 (160-400) X10*3/uL MPV 8.7 L (9.4-12.4) fL Immature Gran % (Auto) 0.4 (0.0-0.4) % Neut % (Auto) 30.4 L (45-73) % Lymph % (Auto) 58.5 H (20-40) % [place] % (Auto) 9.2 (2-11) % Eos % (Auto) 1.1 (0-4) % Baso % (Auto) 0.4 (0-2) % Lymph # (Auto) 3.1 (1.2-4.9) X10*3/uL [place] # (Auto) 0.5 (0.1-1.2) X10*3/uL Eos # (Auto) 0.1 (0.0-0.4) X10*3/uL Baso # (Auto) 0.0 (0.0-0.2) X10*3/uL Abs Immat Gran (auto) 0.02 (0.00-0.03) X10*3/uL Absolute Neuts (auto) 1.6 L (2.0-8.3) x10*3/uL Absolute Nucleated RBC 0.000 (0.0-0.012) X10*3/uL Nucleated RBC % (auto) 0.0 (0.0-0.2) /100WBC Sodium 140 (135-145) mmol/L Potassium 3.9 (3.3-5.1) mmol/L Chloride 110 H (96-108) mmol/L Carbon Dioxide 22 (22-29) mmol/L Anion Gap 12 (12-20) BUN 12 (9-16) mg/dL Creatinine 0.82 (0.5-1.4) mg/dL Estim Creat Clear Calc 77.4 Estimated GFR > 60 Random Glucose 96 (60-115) mg/dL Calcium 9.1 (8.4-10.2) mg/dL Total Bilirubin 0.4 (0.0-1.0) mg/dL AST 43 H (5-37) U/L ALT 30 (0-40) U/L Alkaline Phosphatase 63 (39-117) U/L Total Protein 8.0 (6.5-8.0) g/dL Albumin 3.1 L (3.5-5.0) g/dL Independent Interpretation I performed an independent interpretation of an: EKG Interpretation: Normal sinus rhythm heart rate 99 beats per minute QTC [address] change and no acute ischemia Discharge Plan Discharge Clinical Impression: Schizoaffective disorder, bipolar type, Dementia Patient Disposition: Still a Patient Prescriptions: No Action haloperidol 5 mg Tablet 5 mg PO BEDTIME 30 Days Qty: 30 0RF haloperidol decanoate 50 mg/mL Solution 75 mg IM Q28D 28 Days Qty: 1.5 0RF hydroxyzine HCl 25 mg Tablet 25 mg PO Q6H PRN (Reason: Anxiety) 30 Days Qty: 90 0RF valproic acid (as sodium salt) 250 mg/5 mL (5 mL) Solution 125 mg PO TID 30 Days Qty: 225 0RF olanzapine [Zyprexa] 20 mg tablet 20 mg PO BEDTIME MDD Total dose 30 mg/day Qty: 30 0RF olanzapine 10 mg tablet 10 mg PO BEDTIME MDD Total dose 30 mg/qhs Qty: 30 0RF loperamide 2 mg Tablet 2 mg PO Q6H PRN (Reason: Constipation) 30 Days Qty: 60 0RF amlodipine 2.5 mg tablet 2.5 mg PO DAILY 30 Days Qty: 30 0RF magnesium hydroxide [Milk of Magnesia] 400 mg/5 mL Suspension 2,400 mg PO DAILY PRN (Reason: Constipation) Qty: 355 0RF hydrochlorothiazide 12.5 mg capsule 1 cap PO DAILY 30 Days Qty: 30 0RF mirtazapine 15 mg tablet 1 tab PO BEDTIME 30 Days Qty: 30 0RF ergocalciferol (vitamin D2) 1,250 mcg (50,000 unit) capsule 1,250 mcg PO MO Qty: 30 0RF Odefsey 200-25-25 mg tablet 1 tab PO DAILY Qty: 30 0RF
[2023-04-07] MEDS: Haloperidol Lactate 5 MG/ML VIAL IM (21:30)
[2023-04-07] MEDS: LORazepam 2 MG/ML VIAL IM (21:31)
--- NOTE | 2023-04-07 23:07 | ECG_ITS ---
Test Reason : QT INTERVAL Blood Pressure : / mmHG Vent. Rate : 099 BPM Atrial Rate : 099 BPM P-R Int : 174 ms QRS Dur : 072 ms QT Int : 380 ms P-R-T Axes : 059 -42 067 degrees QTc Int : 487 ms Normal sinus rhythm Left axis deviation Prolonged QT RSR' or QR pattern in V1 suggests right ventricular conduction delay Abnormal ECG When compared with ECG of 02-JAN-2021 15:22, No significant change was found Referred By: Clay Sanchez Electronically Signed By:NOREEN CHOWDARY MD
[2023-04-07 23:09] VITALS: BP 92/69; PULSE 101; RESP 14; O2SAT 95
[2023-04-07 23:44] LABS: MANUAL DIFF FLAG NO
[2023-04-07 23:45] LABS: Basophils Percent Auto 0.4 % (0-2); Eosinophils Absolute Auto 0.1 X10*3/uL (0.0-0.4); Eosinophils Percent Auto 1.1 % (0-4); Hematocrit 44.8 % (42.0-52.0); Hemoglobin 14.4 g/dl (14.0-18.0); Imm Gran Abs Auto 0.02 X10*3/uL (0.00-0.03); Imm Gran Pct Auto 0.4 % (0.0-0.4); Lymphocytes Absolute Auto 3.1 X10*3/uL (1.2-4.9); Lymphocytes Percent Auto 58.5 % (20-40); Mean Corpuscular HGB Conc 32.1 g/dl (31.0-36.0); Mean Corpuscular Hemoglobin 29.8 pg (27.0-33.0); Mean Corpuscular Volume 92.8 fL (80.0-98.0); Mean Platelet Volume 8.7 fL (9.4-12.4); Monocytes Absolute Auto 0.5 X10*3/uL (0.1-1.2); Monocytes Percent Auto 9.2 % (2-11); Neutrophils Absolute Auto 1.6 x10*3/uL (2.0-8.3); Neutrophils Percent Auto 30.4 % (45-73); Platelet Count 197 X10*3/uL (160-400); Red Blood Count 4.83 X10*6/uL (4.60-5.80); Red Cell Distribution Width 13.5 % (11.0-16.0); White Blood Count 5.4 X10*3/uL (4.8-10.8)
[2023-04-07 23:58] LABS: Alanine Aminotransferase 30 U/L (0-40); Albumin Level 3.1 g/dL (3.5-5.0); Alkaline Phosphatase 63 U/L (39-117); Anion Gap 12 (12-20); Aspartate Amino Transferase 43 U/L (5-37); Bilirubin Total 0.4 mg/dL (0.0-1.0); Blood Urea Nitrogen 12 mg/dL (9-16); Calcium 9.1 mg/dL (8.4-10.2); Carbon Dioxide 22 mmol/L (22-29); Chloride 110 mmol/L (96-108); Creatinine Clr Calc Pharmacy 77.4; Estimated Glomerular Filt Rate > 60; Glucose Random 96 mg/dL (60-115); Potassium 3.9 mmol/L (3.3-5.1); Sodium 140 mmol/L (135-145)
[2023-04-08 02:11] VITALS: BP 140/99; PULSE 95; RESP 16; TEMP 37; O2SAT 94
[2023-04-08 04:11] VITALS: BP 130/97; PULSE 103; RESP 15; O2SAT 98
[2023-04-08 05:50] VITALS: BP 143/93; PULSE 103; RESP 16; TEMP 36.9; O2SAT 98
--- NOTE | 2023-04-08 08:05 | PC.NURSE ---
assumed care of pt at 0700. pt calm, and cooperative. sitting up in bed eating breakfast. rr even/unlabored. pt under constant observation/sitter at bedside. plan of care ongoing.
[2023-04-08 09:05] VITALS: BP 139/90; PULSE 121; RESP 18; O2SAT 94
--- NOTE | 2023-04-08 12:10 | PC.NURSE ---
pt drenched in urine. neris Nunez cleaned up pt in bathroom, changed into new hospital gown. pt sts I need a white lab coat, I'm going to surgery . pt brought back to bed.
--- NOTE | 2023-04-08 12:37 | MHC.CARE ---
Patient evaluated by the CARE Team, he will require an inpatient psychiatric admission to manage symptoms, providers updated.
--- NOTE | 2023-04-08 12:47 | PHA.MEDREC ---
Pharmacy Consult ? Medication Reconciliation Pharmacy has completed the medication reconciliation. PAtient had a list from Leanna. Called and LVM for nurses station on last administered haldol
[2023-04-08 14:31] LABS: COVID-19 Test Negative (Negative); IDNOW Serial# 9DB6401D
[2023-04-08] MEDS: Thiamine HCL 100 MG TABLET PO (14:39)
[2023-04-08] MEDS: Divalproex Sodium 250 MG TABLET.DR PO (14:39)
--- NOTE | 2023-04-08 14:42 | PC.NURSE ---
this rn medicated pt per jul.
--- NOTE | 2023-04-08 15:27 | PC.NURSE ---
pt sitting at side of bed, slightly standing, attempting to put on a second pair of manuel pants. pt redirected in bed, pt compliant, singing songs to t/w. boosted up, provided with blanket, and side rails secure. still waiting for UA sample.
--- NOTE | 2023-04-08 15:56 | PC.NURSE ---
pt found walking towards doors to leave ER. redirected to bed. found pt to be incontinent of urine. pt cleaned up and changed. new barry pad given. pt back to bed with both rails up. pt stating he has to leave or his ride is going to leave without him. rr even/unlabored. plan of care ongoing.
--- NOTE | 2023-04-08 16:48 | PC.NURSE ---
pt found walking towards door again. redirected by t/w and security. pt back in stretcher, resting quietly. bed rails up.
[2023-04-08 17:23] VITALS: BP 135/93; PULSE 122; RESP 20; O2SAT 98
--- NOTE | 2023-04-08 19:21 | PC.NURSE ---
report given to earline-geropsychologist. awaiting pt pickup/transport. pt resting quietly on stretcher. rr even/unlabored. report given about pt plan of care to ELIZABETH Kwon RN.
[2023-04-08] MEDS: Acetaminophen 325 MG TABLET 650 MG PO (22:21)
[2023-04-08] MEDS: Mirtazapine 15 MG TABLET PO (22:21)
[2023-04-08] MEDS: OLANZapine 7.5 MG TABLET 15 MG PO (22:22)
[2023-04-08] MEDS: levETIRAcetam 500 MG TABLET PO (22:22)
[2023-04-08 23:39] VITALS: BP 135/90; PULSE 100; RESP 20; TEMP 36.6; O2SAT 98
[2023-04-09] MEDS: OLANZapine 5 MG TABLET PO (00:51)
[2023-04-09] MEDS: traZODone HCL 25 MG HALFTAB PO (00:51)
[2023-04-09] MEDS: HaloperidoL 5 MG TABLET PO (02:16)
[2023-04-09] MEDS: LORazepam 1 MG TABLET 2 MG PO (02:16)
--- NOTE | 2023-04-09 02:29 | PC.NURSE ---
pt intrusive, manic, standing over room mate they've got cocaine ! (3) asking staff to take him to car to do acid and go get Khmer food. t/o ativan 2mg, haldol 5mg PO x1 now
[2023-04-09 09:00] VITALS: BP 101/76; PULSE 100; RESP 18; TEMP 36.8; O2SAT 96
[2023-04-09 09:16] LABS: Cholesterol 153 mg/dL (<200); HDL Cholesterol 57 mg/dL (>40); LDL Cholesterol Calculated 85 mg/dL (<100); Triglycerides 58 mg/dL (<150)
--- NOTE | 2023-04-09 09:22 | P.HPPS_ITS ---
HPI Date of Service: 04/09/23 Chief Complaint: agressive behavior Sources of Information: patient interviewed, chart reviewed and crisis/core team assessment reviewed HPI Subjective Notes: Conditional Voluntary Guardianship: Yes Narrative: the patient is a 67-year-old male, single, resident of [facility] very well known by this team since he was admitted into the hospital last year with a past history of schizoaffective disorder bipolar type and dementia. According to the crisis assessment, the patient had been on compliant with medications for several days, he became irritable and labile and he was trying to elope from the facility. Also he had many sexualized comments to staff and residents and he is unable to follow directions. He was rushed to the emergency room, medically clear and transferring to this facility for psychiatric stabilization. On interview, the patient looked very tired, he was sleeping and he did not have his lunch or breakfast. He was a very poor historian able to provide any details at this moment. We will try to gather collateral information. As far as we know, on his last admission he had a guardian and t a court order for to follow treatment against his will with antipsychotics. We have not find the legal documents at this moment. He was slightly sedated but he was able to contract for safety, he denies acute symptoms at this moment. Past Psychiatric History: The patient was admitted at this facility last year for several months and he was placed at the [facility]. -Current medication: Haldol Dec 50 mg Q28 days, olanzapine 20 mg QHS, remeron 15 mg QHS. Pedraza Order expires May 05, 2021. -Jass?s order: haldol dec 25 mg IM Qmo, zyprexa 20 mg QD, haldol 1.5 mg BID PRN. Alternatives risperdal/ risperdal consta up to 8 mg QD/ 50 mg [id number] and seroquel up to Medical Evaluation Reviewed: Yes [facility] Medical History Dementia HIV (human immunodeficiency virus infection) Bipolar 1 disorder Hepatitis C Liver failure HTN (hypertension) Family History: Denies Social History: -Aristeo currently resides at [facility] in [place]. -Per chart, pt was born in [facility]. He has 8 brothers and 2 sisters. He is a , no children. [facility] Home staff reported that Aristeo has had no visitors since he has been there. Substance History: unknown Trauma History: unknown Diagnostics Vital Signs (24Hr): Vital Signs - 24 hr 04/08/23 17:23 04/08/23 23:39 Temperature 98 F Pulse Rate 122 H 100 Respiratory Rate 20 20 Blood Pressure 135/93 H 135/90 H Pulse Oximetry 98 98 Oxygen Delivery Method Room Air Room Air BMI result Body Mass Index 19.5 Labs 04/07/23 23:41 04/07/23 23:41 Labs: Laboratory Results - last 48 hr 04/07/23 04/08/23 04/09/23 23:41 13:58 08:42 WBC 5.4 RBC 4.83 Hgb 14.4 Hct 44.8 MCV 92.8 MCH 29.8 MCHC 32.1 RDW 13.5 Plt Count 197 MPV 8.7 L Immature Gran % (Auto) 0.4 Neut % (Auto) 30.4 L Lymph % (Auto) 58.5 H [place] % (Auto) 9.2 Eos % (Auto) 1.1 Baso % (Auto) 0.4 Lymph # (Auto) 3.1 [place] # (Auto) 0.5 Eos # (Auto) 0.1 Baso # (Auto) 0.0 Abs Immat Gran (auto) 0.02 Absolute Neuts (auto) 1.6 L Absolute Nucleated RBC 0.000 Nucleated RBC % (auto) 0.0 Sodium 140 Potassium 3.9 Chloride 110 H Carbon Dioxide 22 Anion Gap 12 BUN 12 Creatinine 0.82 Estim Creat Clear Calc 77.4 Estimated GFR > 60 Random Glucose 96 Calcium 9.1 Total Bilirubin 0.4 AST 43 H ALT 30 Alkaline Phosphatase 63 Total Protein 8.0 Albumin 3.1 L Triglycerides 58 Cholesterol 153 LDL Cholesterol, Calc 85 HDL Cholesterol 57 COVID-19 ([facility]) Negative COVID-19 Clin Com See Note Meds/Allergies Meds Home Medications Medication Instructions Recorded Confirmed Type acetaminophen 325 mg tablet 650 mg PO Q6H PRN Pain (Scale 04/08/23 04/08/23 History Score 1-3) divalproex 250 mg tablet,delayed 250 mg PO DAILY 04/08/23 04/08/23 History release emtricitabine 200 mg-rilpivirine 1 tab PO DAILY 04/08/23 04/08/23 History 25 mg-tenofovir alafenam 25 mg tablet (Abram) haloperidol decanoate 100 mg/mL 100 mg IM Q4W 04/08/23 04/08/23 History intramuscular solution levetiracetam 500 mg 500 mg PO BID 04/08/23 04/08/23 History tablet,extended release 24 hr mirtazapine 15 mg disintegrating 15 mg PO BEDTIME 04/08/23 04/08/23 History tablet olanzapine 15 mg tablet 15 mg PO BEDTIME 04/08/23 04/08/23 History polyethylene glycol 3350 17 gram 17 g PO DAILY PRN Constipation 04/08/23 04/08/23 History oral powder packet thiamine HCl (vitamin B1) 100 mg 100 mg PO DAILY 04/08/23 04/08/23 History tablet Allergies Allergies Allergy/AdvReac Type Severity Reaction Status Date / Time No Known Allergies Allergy Unverified 01/28/20 16:07 [No Known Allergies*] Mental Status Exam Mental Status Exam Patient Appearance: Appropriate Patient Orientation: Person Level of Consciousness: Drowsy Patient Behavior: Guarded and Passive Mood Description: Withdrawn Affect Description: Blunted Patient Cognition Impaired: Yes Ability to Follow Directions: Fair Speech Pattern: Clear, Monotone and Soft-Spoken Hallucinations: Auditory Delusions: Paranoid Ideation and Ideas of Reference Thought Process: Distracted, Evasive and Slowed Thinking Thought Content: positive for Poverty of Content and positive for Thought Blocking Judgement: Poor Assessment & Plan Assessment & Plan (1) Dementia: Status: Acute Code(s): F03.90 - Unspecified dementia, unspecified severity, without behavioral disturbance, psychotic disturbance, mood disturbance, and anxiety (2) Schizoaffective disorder, bipolar type: Status: Acute Code(s): F25.0 - Schizoaffective disorder, bipolar type Plan the patient is an elderly male with a past history of schizoaffective disorder and dementia who was brought from his rest home for exacerbation of psychosis, disorganized behavior and inappropriate sexual behavior with exit seeking behavior due to noncompliance for several days with his medications. The patient is unable to provide any more details due to his advanced dementia. Plan 1. Gather collateral information. 2. We will continue with his medications as per court order. 3. We will refer to Medicine and blood work. 4. Reassessment results. 5. 15 minute checks. Patient educated on: diagnosis and therapeutic strategies Informed Consent: does not understand Reason for continued inpatient stay Substantial Risk for: inability to function, rapid decompensation and med/psych decompensation Statement Statement: I have reviewed the history and physical and performed a pertinent examination on my patient. No changes have occurred unless specified. If the History and Physical was not performed prior to admission, the Hospitalist's service will be consulted for completing the admission physical. Time Spent With Patient Time: Total time managing care of this patient today __45__ minutes.
[2023-04-09 09:24] LABS: Estimated Average Glucose 105 mg/dL; Hemoglobin A1c % 5.3 % (<6.0)
[2023-04-09] MEDS: Thiamine HCL 100 MG TABLET PO (10:23)
[2023-04-09] MEDS: Divalproex Sodium 250 MG TABLET.DR PO (10:23)
[2023-04-09] MEDS: Emtricitabine/Tenofov Alafenam TABLET 1 TAB PO (10:23)
[2023-04-09] MEDS: Rilpivirine HCL 25 MG TABLET PO (10:23)
[2023-04-09] MEDS: levETIRAcetam 500 MG TABLET PO ×2 (10:23→20:59)
--- NOTE | 2023-04-09 15:26 | PC.NURSE ---
Called Diana and Doretha dykes. Left voice mail for call back regarding patient's flu shot.
[2023-04-09 18:00] VITALS: BP 104/76; PULSE 99; RESP 22; TEMP 36.6; O2SAT 97
[2023-04-09] MEDS: Mirtazapine 15 MG TABLET PO (20:59)
[2023-04-09] MEDS: OLANZapine 7.5 MG TABLET 15 MG PO (20:59)
[2023-04-10] MEDS: OLANZapine 5 MG TABLET PO (02:09)
[2023-04-10] MEDS: LORazepam 1 MG TABLET 2 MG PO (02:32)
[2023-04-10] MEDS: HaloperidoL 5 MG TABLET PO (02:36)
[2023-04-10 08:00] VITALS: BP 139/90; PULSE 112; RESP 20; TEMP 36.2; O2SAT 97
[2023-04-10] MEDS: Thiamine HCL 100 MG TABLET PO (08:33)
[2023-04-10] MEDS: Divalproex Sodium 250 MG TABLET.DR PO (08:33)
[2023-04-10] MEDS: levETIRAcetam 500 MG TABLET PO ×2 (08:33→21:20)
[2023-04-10] MEDS: Emtricitabine/Tenofov Alafenam TABLET 1 TAB PO (08:33)
[2023-04-10] MEDS: Rilpivirine HCL 25 MG TABLET PO (08:33)
--- NOTE | 2023-04-10 11:46 | P.PNPSI_ITS ---
Subjective Subjective Date of Service: 04/10/23 Reason For Visit: agressive behavior Subjective Notes: Conditional Voluntary Guardianship: Yes Interim History: The nursing staff reported that yesterday the patient slept all day long. He was awake today in the morning and he requested to have crack cocaine. He took all his medications in the morning but he was choking so I order a chest x-ray if he is having as. If pneumonia. The patient has been internally preoccupied. No changes in his mental illness since he has chronic mental illness. On interview the patient denies new symptoms, non-sensical at times Mental Status Exam Mental Status Exam Patient Appearance: Appropriate Patient Orientation: Person and Situation Level of Consciousness: Awake and Appropriate Patient Behavior: Guarded and Passive Mood Description: Withdrawn Affect Description: Calm Patient Cognition Impaired: Yes Ability to Follow Directions: Fair Speech Pattern: Clear Hallucinations: Auditory Delusions: Paranoid Ideation Thought Process: Distracted and Slowed Thinking Thought Content: positive for [place] and positive for Poverty of Content Judgement: Fair Diagnostics Vital Signs (24Hr): Vital Signs - 24 hr 04/09/23 18:00 04/10/23 08:00 Temperature 98 F 97.1 F Pulse Rate 99 112 H Respiratory Rate 22 H 20 Blood Pressure 104/76 139/90 H Pulse Oximetry 97 97 Oxygen Delivery Method Room Air Room Air BMI result Body Mass Index 19.5 Labs 04/07/23 23:41 04/07/23 23:41 Labs: Laboratory Results - last 48 hr 04/08/23 04/09/23 13:58 08:42 Estimat Average Glucose 105 Hemoglobin A1c % 5.3 Triglycerides 58 Cholesterol 153 LDL Cholesterol, Calc 85 HDL Cholesterol 57 COVID-19 ([facility]) Negative COVID-19 Clin Com See Note Medications Medications Current Medications Acetaminophen (Acetaminophen 325 Mg Tablet) 650 mg PO Q6H PRN PRN Reason: Pain (Scale Score 1-3) Last Admin: 04/08/23 22:21 Dose: 650 mg Acetaminophen (Acetaminophen 325 Mg Tablet) 650 mg PO Q6H PRN PRN Reason: Headache/Pain Mild Scale (1-3) Al Hydroxide/Mg Hydroxide (Magnesium Hydrox/Alum Hydrox 30 Ml Oral.Susp) 30 ml PO Q6H PRN PRN Reason: Heartburn/Nausea Divalproex Sodium (Divalproex Sodium 250 Mg Tablet.Dr) 250 mg PO DAILY [facility] Last Admin: 04/10/23 08:33 Dose: 250 mg Emtricitabine/Tenofovir Alafenamide (Emtricitabine/Tenofov Alafenam Tablet) 1 tab PO DAILY [facility] Last Admin: 04/10/23 08:33 Dose: 1 tab Haloperidol Decanoate (Haloperidol Decanoate 50 Mg/Ml Ampul) 100 mg IM Q4W CARINE Levetiracetam (Levetiracetam 500 Mg Tablet) 500 mg PO BID [facility] Last Admin: 04/10/23 08:33 Dose: 500 mg Magnesium Hydroxide (Milk Of Magnesia 30 Ml Oral.Susp) 30 ml PO DAILY PRN PRN Reason: Constipation Mirtazapine (Mirtazapine 15 Mg Tablet) 15 mg PO BEDTIME CARINE Last Admin: 04/09/23 20:59 Dose: 15 mg Olanzapine (Olanzapine 7.5 Mg Tablet) 15 mg PO BEDTIME CARINE Last Admin: 04/09/23 20:59 Dose: 15 mg Olanzapine (Olanzapine 5 Mg Tablet) 5 mg PO TID PRN PRN Reason: agitation Last Admin: 04/10/23 02:09 Dose: 5 mg Polyethylene Glycol (Polyethylene Glycol 3350 17 Gm Powd.Pack) 17 gm PO DAILY PRN PRN Reason: Constipation Rilpivirine (Rilpivirine Hcl 25 Mg Tablet) 25 mg PO DAILY [facility] Last Admin: 04/10/23 08:33 Dose: 25 mg Thiamine HCl (Thiamine Hcl 100 Mg Tablet) 100 mg PO DAILY [facility] Last Admin: 04/10/23 08:33 Dose: 100 mg Trazodone HCl (Trazodone Hcl 25 Mg Halftab) 25 mg PO BEDTIME MRX1 PRN PRN Reason: Insomnia Last Admin: 04/09/23 00:51 Dose: 25 mg Allergies Allergies Allergy/AdvReac Type Severity Reaction Status Date / Time No Known Allergies Allergy Unverified 01/28/20 16:07 [No Known Allergies*] Assessment & Plan Assessment & Plan (1) Dementia: Status: Acute Code(s): F03.90 - Unspecified dementia, unspecified severity, without behavioral disturbance, psychotic disturbance, mood disturbance, and anxiety (2) Schizoaffective disorder, bipolar type: Status: Acute Code(s): F25.0 - Schizoaffective disorder, bipolar type Plan the patient is an elderly male with a past history of schizoaffective disorder and dementia who was brought from his rest home for exacerbation of psychosis, disorganized behavior and inappropriate sexual behavior with exit seeking behavior due to noncompliance for several days with his medications. The patient is unable to provide any more details due to his advanced dementia. Plan 1. Gather collateral information. 2. We will continue with his medications as per court order. 3. We will refer to Medicine and blood work. 4. Reassessment results. 5. 15 minute checks. Reason for continued inpatient stay Substantial Risk for: inability to function, rapid decompensation and med/psych decompensation Time Spent With Patient Time: Total time managing care of this patient today _20___ minutes.
[2023-04-10 21:00] VITALS: BP 116/70; PULSE 106; RESP 16; TEMP 36.9; O2SAT 94
[2023-04-10] MEDS: OLANZapine 7.5 MG TABLET 15 MG PO (21:20)
[2023-04-10] MEDS: Mirtazapine 15 MG TABLET PO (21:21)
[2023-04-11] MEDS: traZODone HCL 25 MG HALFTAB PO ×2 (02:32→20:47)
[2023-04-11] MEDS: Acetaminophen 325 MG TABLET 650 MG PO (02:33)
[2023-04-11] MEDS: OLANZapine 5 MG TABLET PO ×2 (02:34→15:33)
[2023-04-11 07:00] VITALS: BMI 15.5
[2023-04-11 08:00] VITALS: BP 124/85; PULSE 98; RESP 18; TEMP 36.2; O2SAT 97
[2023-04-11] MEDS: Thiamine HCL 100 MG TABLET PO (08:34)
[2023-04-11] MEDS: Emtricitabine/Tenofov Alafenam TABLET 1 TAB PO (08:34)
[2023-04-11] MEDS: Rilpivirine HCL 25 MG TABLET PO (08:35)
[2023-04-11] MEDS: levETIRAcetam 500 MG TABLET PO ×2 (08:35→20:47)
[2023-04-11] MEDS: Divalproex Sodium 250 MG TABLET.DR PO (08:35)
--- NOTE | 2023-04-11 10:54 | P.PNPSI_ITS ---
Subjective Subjective Date of Service: 04/11/23 Reason For Visit: agressive behavior Subjective Notes: Conditional Voluntary Healthcare Proxy: Yes Guardianship: Yes Interim History: The nursing staff reported the patient had been more awake and alert since yesterday. He has been Nonsensical at times and delusional. Easily redirectable. On interview the patient reported no new symptoms but there was poverty of content. Will try to gather more collateral information from his providers. He was intrussive and aggressive with a peer but easily redirectable. Mental Status Exam Mental Status Exam Patient Appearance: Appropriate and Unkempt Patient Orientation: Person Level of Consciousness: Awake Patient Behavior: Guarded, Passive and Suspicious Mood Description: Withdrawn Affect Description: Labile Patient Cognition Impaired: Yes Ability to Follow Directions: Good Speech Pattern: Impoverished Hallucinations: Auditory Delusions: Paranoid Ideation and Ideas of Reference Thought Process: Incoherent, Distracted and Slowed Thinking Thought Content: positive for [place] and positive for Poverty of Content Judgement: Poor Diagnostics Vital Signs (24Hr): Vital Signs - 24 hr 04/10/23 21:00 04/11/23 08:00 Temperature 98.4 F 97.1 F Pulse Rate 106 H 98 Respiratory Rate 16 18 Blood Pressure 116/70 124/85 Pulse Oximetry 94 97 Oxygen Delivery Method Room Air Room Air BMI result Body Mass Index 19.5 Labs 04/07/23 23:41 04/07/23 23:41 Imaging Radiology Impressions: ITS Impressions Chest X-Ray 04/10/23 09:25 IMPRESSION: There is bulky-focal very mild linear scar/subsegmental atelectasis in the mid to lower left lung, likely related gaseous distention of the stomach. Medications Medications Current Medications Acetaminophen (Acetaminophen 325 Mg Tablet) 650 mg PO Q6H PRN PRN Reason: Pain (Scale Score 1-3) Last Admin: 04/08/23 22:21 Dose: 650 mg Acetaminophen (Acetaminophen 325 Mg Tablet) 650 mg PO Q6H PRN PRN Reason: Headache/Pain Mild Scale (1-3) Last Admin: 04/11/23 02:33 Dose: 650 mg Al Hydroxide/Mg Hydroxide (Magnesium Hydrox/Alum Hydrox 30 Ml Oral.Susp) 30 ml PO Q6H PRN PRN Reason: Heartburn/Nausea Divalproex Sodium (Divalproex Sodium 250 Mg Tablet.Dr) 250 mg PO DAILY [facility] Last Admin: 04/11/23 08:35 Dose: 250 mg Emtricitabine/Tenofovir Alafenamide (Emtricitabine/Tenofov Alafenam Tablet) 1 tab PO DAILY [facility] Last Admin: 04/11/23 08:34 Dose: 1 tab Haloperidol Decanoate (Haloperidol Decanoate 50 Mg/Ml Ampul) 100 mg IM Q4W [facility] Levetiracetam (Levetiracetam 500 Mg Tablet) 500 mg PO BID [facility] Last Admin: 04/11/23 08:35 Dose: 500 mg Magnesium Hydroxide (Milk Of Magnesia 30 Ml Oral.Susp) 30 ml PO DAILY PRN PRN Reason: Constipation Mirtazapine (Mirtazapine 15 Mg Tablet) 15 mg PO BEDTIME [facility] Last Admin: 04/10/23 21:21 Dose: 15 mg Olanzapine (Olanzapine 7.5 Mg Tablet) 15 mg PO BEDTIME [facility] Last Admin: 04/10/23 21:20 Dose: 15 mg Olanzapine (Olanzapine 5 Mg Tablet) 5 mg PO TID PRN PRN Reason: agitation Last Admin: 04/11/23 02:34 Dose: 5 mg Polyethylene Glycol (Polyethylene Glycol 3350 17 Gm Powd.Pack) 17 gm PO DAILY PRN PRN Reason: Constipation Rilpivirine (Rilpivirine Hcl 25 Mg Tablet) 25 mg PO DAILY [facility] Last Admin: 04/11/23 08:35 Dose: 25 mg Thiamine HCl (Thiamine Hcl 100 Mg Tablet) 100 mg PO DAILY [facility] Last Admin: 04/11/23 08:34 Dose: 100 mg Trazodone HCl (Trazodone Hcl 25 Mg Halftab) 25 mg PO BEDTIME MRX1 PRN PRN Reason: Insomnia Last Admin: 04/11/23 02:32 Dose: 25 mg Allergies Allergies Allergy/AdvReac Type Severity Reaction Status Date / Time No Known Allergies Allergy Unverified 01/28/20 16:07 [No Known Allergies*] Assessment & Plan Assessment & Plan (1) Dementia: Status: Acute Code(s): F03.90 - Unspecified dementia, unspecified severity, without behavioral disturbance, psychotic disturbance, mood disturbance, and anxiety (2) Schizoaffective disorder, bipolar type: Status: Acute Code(s): F25.0 - Schizoaffective disorder, bipolar type Plan the patient is an elderly male with a past history of schizoaffective disorder and dementia who was brought from his rest home for exacerbation of psychosis, disorganized behavior and inappropriate sexual behavior with exit seeking behavior due to noncompliance for several days with his medications. The patient is unable to provide any more details due to his advanced dementia. Plan 1. Gather collateral information. 2. We will continue with his medications as per court order. 3. We will refer to Medicine and blood work. 4. Reassessment results. 5. 15 minute checks. Reason for continued inpatient stay Substantial Risk for: inability to function, rapid decompensation and med/psych decompensation Time Spent With Patient Time: Total time managing care of this patient today __20__ minutes.
--- NOTE | 2023-04-11 12:11 | MHC.SL.SWA ---
Speech Pathologist Impression: Risk of Aspiration Due to: Reduced Cognition Dysphasia Diet Status: Pt has acute mental status issues with difficulty following directions and impulsivity, which are the primary risks for possible aspiration. Recommend Nursing continue with monitoring of behavioral concerns during eating and drinking. Liquid Consistency and Strategies for Safe Swallow: Liquid Intake Recommendation: Andrew Thick Liquid Intake Strategies: Small Sips Solid Food Consistency: Dietary Recommendations: Regular Additional Modifications to Solid Foods: Patient is impulsive, distracted and will need supervision and occasional cuing during meals. Oral Medication Intake: Whole with Liquid Please contact the pharmacy regarding appropriate crushable or liquid drug formulations that are available whenever modified delivery is recommended. Compensatory Strategies and Precautions to be Taken for Safe Swallow: Sitting Upright (90 deg) Liquids from Cup Small Bites and Sips Alternate Liquids/Solids Supervision While Eating and Drinking for Safe Swallow: Total Supervision (1:1) Foods to Avoid: Avoid mixed consistencies Swallowing Recommended Treatments: Compens. Strategy Educat. Recommendation for Speech: Inpatient Speech Therapy Comment: Patient presents with intermittent difficulty with thin liquids as observed on informal assessment due to patient's mental status. Recommend downgrade to trial Andrew Thick liquids to evaluate if easier at this time for patient to swallow, due to coughing episode on water noted during this assessment. Recommend continue on Regular Diet, however avoid mixed consistencies (cereal with milk, soups with solids). Patient is impulsive and disoriented, will require supervision at all meals with occasional cuing, e.g. to alternate liquids with solids, avoid chugging. , RD notified of recommendation by secure text, discussed with RN in person. MOLD CAPPER will continue to follow. Frequency/Duration: 1-2 f/u Date Range for Service Req: Timeline to reassess: Makeup Instructor Clinican/Clinical Fellow: No Supervisory Statement: I have reviewed and agree with the student/clinical fellow's documentation: N/A Speech Language Pathologist: Antonietta Ryan M.A., CCC-MOLD CAPPER
[2023-04-11 20:05] VITALS: BP 146/82; PULSE 115; RESP 18; TEMP 36.7; O2SAT 97
[2023-04-11] MEDS: Mirtazapine 15 MG TABLET PO (20:47)
[2023-04-11] MEDS: OLANZapine 7.5 MG TABLET 15 MG PO (20:47)
[2023-04-12] MEDS: OLANZapine 5 MG TABLET PO ×3 (03:00→17:32)
[2023-04-12] MEDS: traZODone HCL 25 MG HALFTAB PO ×2 (03:00→19:41)
[2023-04-12] MEDS: Rilpivirine HCL 25 MG TABLET PO (08:19)
[2023-04-12] MEDS: Thiamine HCL 100 MG TABLET PO (08:19)
[2023-04-12] MEDS: Emtricitabine/Tenofov Alafenam TABLET 1 TAB PO (08:19)
[2023-04-12] MEDS: levETIRAcetam 500 MG TABLET PO ×2 (08:19→19:41)
[2023-04-12] MEDS: Divalproex Sodium 250 MG TABLET.DR PO (08:19)
[2023-04-12] MEDS: Acetaminophen 325 MG TABLET 650 MG PO (08:23)
[2023-04-12 08:25] VITALS: BP 151/88; PULSE 123; RESP 16; TEMP 36.6; O2SAT 97
--- NOTE | 2023-04-12 12:50 | P.PNPSI_ITS ---
Subjective Subjective Date of Service: 04/12/23 Reason For Visit: agressive behavior Subjective Notes: Conditional Voluntary Healthcare Proxy: Yes Guardianship: Yes Interim History: The nursing staff reported the patient had been intrusive, labile not attending to groups. Several peers had been annoyed by the patient's this any vision. On interview the patient was pleasantly confused, easily redirectable. We are going to increase Zyprexa to 20 mg p.o. q.h.s. to target psychosis. Also Saturday we are going to order blood work and get Depakote level and adjust accordingly. Mental Status Exam Mental Status Exam Patient Appearance: Disheveled and Unkempt Patient Orientation: Person Level of Consciousness: Inappropriate Patient Behavior: Guarded, Confused and Impulsive Mood Description: Withdrawn Affect Description: Labile Patient Cognition Impaired: Yes Ability to Follow Directions: Good Speech Pattern: Impoverished Hallucinations: None Delusions: Paranoid Ideation and Ideas of Reference Thought Process: Illogical and Distracted Thought Content: positive for [place] and positive for Thought Blocking Judgement: Poor Diagnostics Vital Signs (24Hr): Vital Signs - 24 hr 04/11/23 20:05 04/12/23 08:25 Temperature 98.0 F 97.9 F Pulse Rate 115 H 123 H Respiratory Rate 18 16 Blood Pressure 146/82 H 151/88 H Pulse Oximetry 97 97 Oxygen Delivery Method Room Air Room Air BMI result Body Mass Index 15.5 Labs 04/07/23 23:41 04/07/23 23:41 Imaging Radiology Impressions: ITS Impressions Chest X-Ray 04/10/23 09:25 IMPRESSION: There is bulky-focal very mild linear scar/subsegmental atelectasis in the mid to lower left lung, likely related gaseous distention of the stomach. Medications Medications Current Medications Acetaminophen (Acetaminophen 325 Mg Tablet) 650 mg PO Q6H PRN PRN Reason: Pain (Scale Score 1-3) Last Admin: 04/12/23 08:23 Dose: 650 mg Acetaminophen (Acetaminophen 325 Mg Tablet) 650 mg PO Q6H PRN PRN Reason: Headache/Pain Mild Scale (1-3) Last Admin: 04/11/23 02:33 Dose: 650 mg Al Hydroxide/Mg Hydroxide (Magnesium Hydrox/Alum Hydrox 30 Ml Oral.Susp) 30 ml PO Q6H PRN PRN Reason: Heartburn/Nausea Divalproex Sodium (Divalproex Sodium 250 Mg Tablet.Dr) 250 mg PO DAILY [facility] Last Admin: 04/12/23 08:19 Dose: 250 mg Emtricitabine/Tenofovir Alafenamide (Emtricitabine/Tenofov Alafenam Tablet) 1 tab PO DAILY [facility] Last Admin: 04/12/23 08:19 Dose: 1 tab Haloperidol Decanoate (Haloperidol Decanoate 50 Mg/Ml Ampul) 100 mg IM Q4W [facility] Levetiracetam (Levetiracetam 500 Mg Tablet) 500 mg PO BID [facility] Last Admin: 04/12/23 08:19 Dose: 500 mg Magnesium Hydroxide (Milk Of Magnesia 30 Ml Oral.Susp) 30 ml PO DAILY PRN PRN Reason: Constipation Mirtazapine (Mirtazapine 15 Mg Tablet) 15 mg PO BEDTIME [facility] Last Admin: 04/11/23 20:47 Dose: 15 mg Olanzapine (Olanzapine 5 Mg Tablet) 5 mg PO TID PRN PRN Reason: agitation Last Admin: 04/12/23 08:34 Dose: 5 mg Olanzapine (Olanzapine 10 Mg Tablet) 20 mg PO BEDTIME [facility] Polyethylene Glycol (Polyethylene Glycol 3350 17 Gm Powd.Pack) 17 gm PO DAILY PRN PRN Reason: Constipation Rilpivirine (Rilpivirine Hcl 25 Mg Tablet) 25 mg PO DAILY [facility] Last Admin: 04/12/23 08:19 Dose: 25 mg Thiamine HCl (Thiamine Hcl 100 Mg Tablet) 100 mg PO DAILY [facility] Last Admin: 04/12/23 08:19 Dose: 100 mg Trazodone HCl (Trazodone Hcl 25 Mg Halftab) 25 mg PO BEDTIME MRX1 PRN PRN Reason: Insomnia Last Admin: 04/12/23 03:00 Dose: 25 mg Allergies Allergies Allergy/AdvReac Type Severity Reaction Status Date / Time No Known Allergies Allergy Unverified 01/28/20 16:07 [No Known Allergies*] Assessment & Plan Assessment & Plan (1) Dementia: Status: Acute Code(s): F03.90 - Unspecified dementia, unspecified severity, without behavioral disturbance, psychotic disturbance, mood disturbance, and anxiety (2) Schizoaffective disorder, bipolar type: Status: Acute Code(s): F25.0 - Schizoaffective disorder, bipolar type Plan the patient is an elderly male with a past history of schizoaffective disorder and dementia who was brought from his rest home for exacerbation of psychosis, disorganized behavior and inappropriate sexual behavior with exit seeking behavior due to noncompliance for several days with his medications. The patient is unable to provide any more details due to his advanced dementia. Plan 1. Gather collateral information. 2. We will continue with his medications as per court order. 3. We will refer to Medicine and blood work. 4. Reassessment results. 5. 15 minute checks. 6. We are going to increase Zyprexa to 20 mg p.o. q.h.s. on April 12. 7. Depakote level and comprehensive metabolic panel for next Saturday. Reason for continued inpatient stay Substantial Risk for: inability to function, rapid decompensation and med/psych decompensation Time Spent With Patient Time: Total time managing care of this patient today __20__ minutes.
[2023-04-12] MEDS: OLANZapine ODT 10 MG TAB.RAPDIS TRANSLINGU (13:33)
--- NOTE | 2023-04-12 14:31 | MHC.SL.SWA ---
Speech Pathologist Impression: Risk of aspiration Risk of Aspiration Due to: Reduced Cognition Dysphasia Diet Status: UPGRADE from NTL to THIN Pt has acute mental status issues with difficulty following directions and impulsivity, which are the primary risks for possible aspiration. Recommend Nursing continue with monitoring of behavioral concerns during eating and drinking. Liquid Consistency and Strategies for Safe Swallow: Liquid Intake Recommendation: Thin Liquid Intake Strategies: Small Sips Solid Food Consistency: Dietary Recommendations: Regular Additional Modifications to Solid Foods: Pt seen by NOVELTY PRINTING MACHINE OPERATOR at lunch. Pt tolerated thin liquid by cup with no overt s/s of aspiration. Recommend UPGRADE liquids to THIN, continue on regular texture diet with aspiration precautions and supervision. NOVELTY PRINTING MACHINE OPERATOR to f/u 1-2x to monitor tolerance. Oral Medication Intake: Whole with Liquid Please contact the pharmacy regarding appropriate crushable or liquid drug formulations that are available whenever modified delivery is recommended. Compensatory Strategies and Precautions to be Taken for Safe Swallow: Sitting Upright (90 deg) Small Bites and Sips Alternate Liquids/Solids Rate of Ingestion Change Avoid Specific Foods Supervision While Eating and Drinking for Safe Swallow: Total Supervision (1:1) Foods to Avoid: Avoid mixed consistencies Swallowing Recommended Treatments: Compens. Strategy Educat. Recommendation for Speech: Inpatient Speech Therapy Comment:Patient is impulsive and disoriented, will require supervision at all meals with occasional cuing, e.g. to alternate liquids with solids, avoid chugging. Frequency/Duration: 1-2 f/u Date Range for Service Req: Timeline to reassess: Gate Agent Clinican/Clinical Fellow: No Supervisory Statement: I have reviewed and agree with the student/clinical fellow's documentation: N/A Speech Language Pathologist: Gianna Pearson M.A., CCC-NOVELTY PRINTING MACHINE OPERATOR
--- NOTE | 2023-04-12 16:55 | PC.NURSE ---
Patient was agitated this afternoon, yelling and swearing across milieu to other patients/staff. PRN Zyprexa 5mg was already given in the morning at 8:30. Dr. Hua notified via tiger text and ordered one time zyprexa 10mg, which was given at 13:30 per provider.
[2023-04-12 18:00] VITALS: BP 135/86; PULSE 126; RESP 17; TEMP 36.7; O2SAT 96
[2023-04-12] MEDS: OLANZapine 10 MG TABLET 20 MG PO (19:41)
[2023-04-12] MEDS: Mirtazapine 15 MG TABLET PO (19:41)
[2023-04-13] MEDS: OLANZapine 5 MG TABLET PO (04:30)
[2023-04-13] MEDS: LORazepam 1 MG TABLET 2 MG PO (05:08)
[2023-04-13] MEDS: HaloperidoL 5 MG TABLET PO (05:09)
--- NOTE | 2023-04-13 08:48 | HO.PSYCHPN ---
Subjective Subjective Date of Service: 04/13/23 Reason For Visit: agressive behavior Interim History: Pt seen, reviewed with team. Required prn 438am Haldol 5/Ativan 2 for severe agitation. Resting when seen. PRN dosing adjusted. Appears very comfortable without distress. Medication Compliance: Intermittent Side effects from medications: Yes (sedation this a.m.) Attending Groups: Intermittent Review of Systems Acute medical concerns: No Medical Review of Systems: unchanged Review of Systems Review of Systems Yes Unobtainable due to mental status Mental Status Exam Mental Status Exam Patient Appearance: Fatigued Level of Consciousness: Drowsy and Sedated Patient Behavior: Asleep, Sedated and Fatigued Mood Description: Flat Affect Description: Flat Speech Pattern: No Speech (sleeping) Hallucinations: None Delusions: Not Present Judgement: Poor Diagnostics Vital Signs (24Hr): Vital Signs - 24 hr 04/12/23 18:00 Temperature 98.0 F Pulse Rate 126 H Respiratory Rate 17 Blood Pressure 135/86 Pulse Oximetry 96 Oxygen Delivery Method Room Air BMI result Body Mass Index 15.5 Labs 04/07/23 23:41 04/07/23 23:41 Imaging Radiology Impressions: ITS Impressions Chest X-Ray 04/10/23 09:25 IMPRESSION: There is bulky-focal very mild linear scar/subsegmental atelectasis in the mid to lower left lung, likely related gaseous distention of the stomach. Medications Medications Current Medications Acetaminophen (Acetaminophen 325 Mg Tablet) 650 mg PO Q6H PRN PRN Reason: Pain (Scale Score 1-3) Last Admin: 04/12/23 08:23 Dose: 650 mg Acetaminophen (Acetaminophen 325 Mg Tablet) 650 mg PO Q6H PRN PRN Reason: Headache/Pain Mild Scale (1-3) Last Admin: 04/11/23 02:33 Dose: 650 mg Al Hydroxide/Mg Hydroxide (Magnesium Hydrox/Alum Hydrox 30 Ml Oral.Susp) 30 ml PO Q6H PRN PRN Reason: Heartburn/Nausea Divalproex Sodium (Divalproex Sodium 250 Mg Tablet.Dr) 250 mg PO DAILY [facility] Last Admin: 04/12/23 08:19 Dose: 250 mg Emtricitabine/Tenofovir Alafenamide (Emtricitabine/Tenofov Alafenam Tablet) 1 tab PO DAILY [facility] Last Admin: 04/12/23 08:19 Dose: 1 tab Haloperidol Decanoate (Haloperidol Decanoate 50 Mg/Ml Ampul) 100 mg IM Q4W [facility] Levetiracetam (Levetiracetam 500 Mg Tablet) 500 mg PO BID [facility] Last Admin: 04/12/23 19:41 Dose: 500 mg Magnesium Hydroxide (Milk Of Magnesia 30 Ml Oral.Susp) 30 ml PO DAILY PRN PRN Reason: Constipation Mirtazapine (Mirtazapine 15 Mg Tablet) 15 mg PO BEDTIME [facility] Last Admin: 04/12/23 19:41 Dose: 15 mg Olanzapine (Olanzapine 5 Mg Tablet) 5 mg PO TID PRN PRN Reason: agitation Last Admin: 04/13/23 04:30 Dose: 5 mg Olanzapine (Olanzapine 10 Mg Tablet) 20 mg PO BEDTIME [facility] Last Admin: 04/12/23 19:41 Dose: 20 mg Polyethylene Glycol (Polyethylene Glycol 3350 17 Gm Powd.Pack) 17 gm PO DAILY PRN PRN Reason: Constipation Rilpivirine (Rilpivirine Hcl 25 Mg Tablet) 25 mg PO DAILY [facility] Last Admin: 04/12/23 08:19 Dose: 25 mg Thiamine HCl (Thiamine Hcl 100 Mg Tablet) 100 mg PO DAILY [facility] Last Admin: 04/12/23 08:19 Dose: 100 mg Trazodone HCl (Trazodone Hcl 25 Mg Halftab) 25 mg PO BEDTIME MRX1 PRN PRN Reason: Insomnia Last Admin: 04/12/23 19:41 Dose: 25 mg Allergies Allergies Allergy/AdvReac Type Severity Reaction Status Date / Time No Known Allergies Allergy Unverified 01/28/20 16:07 [No Known Allergies*] Assessment & Plan Assessment & Plan (1) Dementia: Status: Acute Code(s): F03.90 - Unspecified dementia, unspecified severity, without behavioral disturbance, psychotic disturbance, mood disturbance, and anxiety (2) Schizoaffective disorder, bipolar type: Status: Acute Code(s): F25.0 - Schizoaffective disorder, bipolar type Plan the patient is an elderly male with a past history of schizoaffective disorder and dementia who was brought from his rest home for exacerbation of psychosis, disorganized behavior and inappropriate sexual behavior with exit seeking behavior due to noncompliance for several days with his medications. The patient is unable to provide any more details due to his advanced dementia. 04/13/23- Given Haldol 5 mg, Ativan 2 mg during the night for severe aggressive agitation as Olanzapine was not effective. Today, sedate- change prn's to Haldol 1 mg tid prn and Ativan 0.25 mg tid prn Plan 1. Gather collateral information. 2. We will continue with his medications as per court order. 3. We will refer to Medicine and blood work. 4. Reassessment results. 5. 15 minute checks. 6. We are going to increase Zyprexa to 20 mg p.o. q.h.s. on April 12. 7. Depakote level and comprehensive metabolic panel for next Saturday. Informed Consent: does not understand Reason for continued inpatient stay Substantial Risk for: med/psych decompensation Time Spent With Patient Time: Total time managing care of this patient today ____ minutes.
[2023-04-13 10:00] VITALS: PULSE 104; RESP 145; TEMP 36.6
--- NOTE | 2023-04-13 10:35 | HO.PSYEVENT2 ---
Documented by User: Michelle Amaro APRN 04/13/23 10:37 Event Note Date of Service: 04/13/23 Psych On-Call Event Note: 438am: Contacted by team. Pt described as manic, agitated, banging on doors, yelling obscenities. Haldol 5 mg Ativan 2 mg po for a one time prn dose ordered. Time Spent With Patient Time: Total time managing care of this patient today ____ minutes. Documented by User: Woodrow Hairston MD 04/13/23 18:46 Event Note Date of Service: 04/13/23
[2023-04-13] MEDS: Emtricitabine/Tenofov Alafenam TABLET 1 TAB PO (13:10)
[2023-04-13] MEDS: Rilpivirine HCL 25 MG TABLET PO (13:10)
[2023-04-13] MEDS: levETIRAcetam 500 MG TABLET PO ×2 (13:10→20:30)
[2023-04-13] MEDS: Acetaminophen 325 MG TABLET 650 MG PO (17:59)
[2023-04-13 19:40] VITALS: BP 133/86; PULSE 122; RESP 18; TEMP 36.6; O2SAT 93
[2023-04-13] MEDS: Mirtazapine 15 MG TABLET PO (20:30)
[2023-04-13] MEDS: OLANZapine 10 MG TABLET 20 MG PO (20:30)
[2023-04-13] MEDS: LORazepam 0.5 MG TABLET 0.25 MG PO (20:54)
[2023-04-13] MEDS: HaloperidoL 1 MG TABLET PO (20:54)
[2023-04-13] MEDS: traZODone HCL 25 MG HALFTAB PO (20:54)
[2023-04-14 07:45] VITALS: BP 135/87; PULSE 115; RESP 20; TEMP 37.1; O2SAT 99
[2023-04-14] MEDS: HaloperidoL 1 MG TABLET PO ×3 (08:15→20:38)
[2023-04-14] MEDS: LORazepam 0.5 MG TABLET 0.25 MG PO ×2 (08:15→12:42)
[2023-04-14] MEDS: Divalproex Sodium 250 MG TABLET.DR PO ×2 (08:16→20:38)
[2023-04-14] MEDS: levETIRAcetam 500 MG TABLET PO ×2 (08:16→20:37)
[2023-04-14] MEDS: Emtricitabine/Tenofov Alafenam TABLET 1 TAB PO (08:16)
[2023-04-14] MEDS: Thiamine HCL 100 MG TABLET PO (08:16)
[2023-04-14] MEDS: Rilpivirine HCL 25 MG TABLET PO (08:16)
--- NOTE | 2023-04-14 14:28 | HO.PSYCHPN ---
Subjective Subjective Date of Service: 04/14/23 Reason For Visit: agressive behavior Interim History: Pt seen, reviewed with the team. Team report lability, irritability, edgy , telling team they can go on vacation or they are fired. Pt using Haldol/Lorazepam prns without sedation like he experienced yesterday. Pt in the milieu, watching TV-team approached him, encouraging him to dance as others were engaging. Pt was caustic, again telling everyone they are fired. Anger increased a bit, pt stating, I can f--ing dance and proceeds to attempt to dance, continues swearing and with anger. Team reports they have known pt for a time and this is a significant presentation change for him, as by history he has been quieter, less irritable. Medication Compliance: Yes Side effects from medications: No Attending Groups: Yes Review of Systems Acute medical concerns: No Mental Status Exam Mental Status Exam Patient Appearance: Fatigued and Disheveled Patient Orientation: Person Level of Consciousness: Alert Patient Behavior: Guarded, Talkative, Suspicious, Aggressive, Belligerent, Swearing, Fatigued, Distractible and Good Eye Contact Mood Description: Hostile and Labile Affect Description: Constricted and Labile Patient Cognition Impaired: Yes Ability to Follow Directions: Fair Speech Pattern: Perseverating, Difficulty Finding Words, Spontaneous Speech and Includes Profanity Memory Description: Remote Impaired Hallucinations: None Delusions: Present Thought Process: Illogical, Distracted and Rumination Thought Content: positive for [place] and positive for Perseveration Depressive Symptoms: Increased Irritability and Difficulty Concentrating Abnormal Motor Activity Signs and Symptoms: Aggression, Agitation and Restlessness Judgement: Poor Diagnostics Vital Signs (24Hr): Vital Signs - 24 hr 04/13/23 19:40 04/14/23 07:45 Temperature 97.9 F 98.8 F Pulse Rate 122 H 115 H Respiratory Rate 18 20 Blood Pressure 133/86 135/87 Pulse Oximetry 93 99 Oxygen Delivery Method Room Air Room Air BMI result Body Mass Index 15.5 Labs 04/07/23 23:41 04/07/23 23:41 Imaging Radiology Impressions: ITS Impressions Chest X-Ray 04/10/23 09:25 IMPRESSION: There is bulky-focal very mild linear scar/subsegmental atelectasis in the mid to lower left lung, likely related gaseous distention of the stomach. Medications Medications Current Medications Acetaminophen (Acetaminophen 325 Mg Tablet) 650 mg PO Q6H PRN PRN Reason: Pain (Scale Score 1-3) Last Admin: 04/13/23 17:59 Dose: 650 mg Acetaminophen (Acetaminophen 325 Mg Tablet) 650 mg PO Q6H PRN PRN Reason: Headache/Pain Mild Scale (1-3) Last Admin: 04/11/23 02:33 Dose: 650 mg Al Hydroxide/Mg Hydroxide (Magnesium Hydrox/Alum Hydrox 30 Ml Oral.Susp) 30 ml PO Q6H PRN PRN Reason: Heartburn/Nausea Divalproex Sodium (Divalproex Sodium 250 Mg Tablet.Dr) 250 mg PO DAILY [facility] Last Admin: 04/14/23 08:16 Dose: 250 mg Emtricitabine/Tenofovir Alafenamide (Emtricitabine/Tenofov Alafenam Tablet) 1 tab PO DAILY [facility] Last Admin: 04/14/23 08:16 Dose: 1 tab Haloperidol (Haloperidol 1 Mg Tablet) 1 mg PO TID PRN PRN Reason: psychotic agitation Last Admin: 04/14/23 12:42 Dose: 1 mg Haloperidol Decanoate (Haloperidol Decanoate 50 Mg/Ml Ampul) 100 mg IM Q28D [facility] Levetiracetam (Levetiracetam 500 Mg Tablet) 500 mg PO BID [facility] Last Admin: 04/14/23 08:16 Dose: 500 mg Lorazepam (Lorazepam 0.5 Mg Tablet) 0.25 mg PO TID PRN PRN Reason: agitation Last Admin: 04/14/23 12:42 Dose: 0.25 mg Magnesium Hydroxide (Milk Of Magnesia 30 Ml Oral.Susp) 30 ml PO DAILY PRN PRN Reason: Constipation Mirtazapine (Mirtazapine 15 Mg Tablet) 15 mg PO BEDTIME [facility] Last Admin: 04/13/23 20:30 Dose: 15 mg Olanzapine (Olanzapine 5 Mg Tablet) 5 mg PO TID PRN PRN Reason: agitation Last Admin: 04/13/23 04:30 Dose: 5 mg Olanzapine (Olanzapine 10 Mg Tablet) 20 mg PO BEDTIME [facility] Last Admin: 04/13/23 20:30 Dose: 20 mg Polyethylene Glycol (Polyethylene Glycol 3350 17 Gm Powd.Pack) 17 gm PO DAILY PRN PRN Reason: Constipation Rilpivirine (Rilpivirine Hcl 25 Mg Tablet) 25 mg PO DAILY [facility] Last Admin: 04/14/23 08:16 Dose: 25 mg Thiamine HCl (Thiamine Hcl 100 Mg Tablet) 100 mg PO DAILY [facility] Last Admin: 04/14/23 08:16 Dose: 100 mg Trazodone HCl (Trazodone Hcl 25 Mg Halftab) 25 mg PO BEDTIME MRX1 PRN PRN Reason: Insomnia Last Admin: 04/13/23 20:54 Dose: 25 mg Allergies Allergies Allergy/AdvReac Type Severity Reaction Status Date / Time No Known Allergies Allergy Unverified 01/28/20 16:07 [No Known Allergies*] Assessment & Plan Assessment & Plan (1) Dementia: Status: Acute Code(s): F03.90 - Unspecified dementia, unspecified severity, without behavioral disturbance, psychotic disturbance, mood disturbance, and anxiety (2) Schizoaffective disorder, bipolar type: Status: Acute Code(s): F25.0 - Schizoaffective disorder, bipolar type Plan the patient is an elderly male with a past history of schizoaffective disorder and dementia who was brought from his rest home for exacerbation of psychosis, disorganized behavior and inappropriate sexual behavior with exit seeking behavior due to noncompliance for several days with his medications. The patient is unable to provide any more details due to his advanced dementia. 04/13/23- Given Haldol 5 mg, Ativan 2 mg during the night for severe aggressive agitation as Olanzapine was not effective. Today, sedate- change prn's to Haldol 1 mg tid prn and Ativan 0.25 mg tid prn 04/14/23- Agitated. Olanzapine prn has not been effective per team Discontinue Lorazapem 0.25 mg tid prn Increase Depakote to 250 mg bid Consider possibly replacing Keppra with Depakote with further titration if tolerated as it should provide improved mood control. Plan 1. Gather collateral information. 2. We will continue with his medications as per court order. 3. We will refer to Medicine and blood work. 4. Reassessment results. 5. 15 minute checks. 6. We are going to increase Zyprexa to 20 mg p.o. q.h.s. on April 12. 7. Depakote level and comprehensive metabolic panel for next Saturday. Informed Consent: does not understand Reason for continued inpatient stay Substantial Risk for: rapid decompensation Time Spent With Patient Time: Total time managing care of this patient today ____ minutes.
[2023-04-14 18:00] VITALS: BP 114/62; PULSE 80; RESP 16; TEMP 36.4; O2SAT 93
[2023-04-14] MEDS: Mirtazapine 15 MG TABLET PO (20:37)
[2023-04-14] MEDS: traZODone HCL 25 MG HALFTAB PO (20:38)
[2023-04-14] MEDS: OLANZapine 10 MG TABLET 20 MG PO (20:38)
--- NOTE | 2023-04-14 21:06 | HO.PSYEVENT2 ---
Documented by User: Michelle Amaro APRN 04/14/23 21:10 Event Note Date of Service: 04/14/23 Psych On-Call Event Note: 2103 Team report pt is labile causing disruption in milieu, having conflicts with peers which is escalative. He is willing to accept Lorazepam prn 2mg as a prn per report of the team. This was ordered to assist him in deescalation. Time Spent With Patient Time: Total time managing care of this patient today ____ minutes. Documented by User: Woodrow Hairston MD 04/17/23 17:42 Event Note Date of Service: 04/17/23
[2023-04-14] MEDS: LORazepam 1 MG TABLET 2 MG PO (21:13)
--- NOTE | 2023-04-14 23:48 | PC.NURSE ---
pt in the milieu being disruptive. he is threatening other peers with bodily harm. he is screaming out profanities and using racial under tones by calling out nigger. his logic is confused and many of his verbalizations are nonsensical. tool pusher mtaheus goode called. above documentation reviewed. also discussed is pt is requesting something to help him calm down. plan ativan 2 mg po now.
[2023-04-15] MEDS: OLANZapine 5 MG TABLET PO ×2 (03:22→11:25)
[2023-04-15 09:36] VITALS: BP 130/95; PULSE 112; RESP 18; TEMP 36.5; O2SAT 98
[2023-04-15] MEDS: HaloperidoL 1 MG TABLET PO ×3 (09:39→20:54)
[2023-04-15] MEDS: Rilpivirine HCL 25 MG TABLET PO (09:40)
[2023-04-15] MEDS: Divalproex Sodium 250 MG TABLET.DR PO ×2 (09:40→20:53)
[2023-04-15] MEDS: levETIRAcetam 500 MG TABLET PO ×2 (09:40→20:53)
[2023-04-15] MEDS: Thiamine HCL 100 MG TABLET PO (09:40)
[2023-04-15] MEDS: Emtricitabine/Tenofov Alafenam TABLET 1 TAB PO (09:40)
[2023-04-15 12:11] VITALS: BMI 15.5
--- NOTE | 2023-04-15 12:20 | MHC.CLN ---
NUTRITION MOST RECENT WEIGHT=50.5 KG. PRIOR WEIGHT 04/07=63.5 KG. STAFF TO WEIGHT AGAIN ABLE. DIET=REGULAR. ADDING MAGIC CUP BID TO INCREASE CALORIC INTAKE. PROVIDES 580 KCALS, 18 G PROTEIN. OBSERVED PATIENT AT LUNCH AND DID NOT SIT DOWN FOR MEAL. FOLLOW FOR WEIGHT AND INTAKE. SEE CLINICAL NUTRITION ASSESSMENT 04/15.
--- NOTE | 2023-04-15 13:21 | P.PNPSI_ITS ---
Subjective Subjective Date of Service: 04/15/23 Reason For Visit: agressive behavior Subjective Notes: Conditional Voluntary Interim History: The nursing staff reported the patient had been intrusive, aggressive, belligerent at times he slept 6 hours. On interview the patient is disinhibited, stated that he has fired several people. I order blood work for today but he has refused. Mental Status Exam Mental Status Exam Patient Appearance: Well Grooomed Patient Orientation: Person Level of Consciousness: Awake Patient Behavior: Guarded and Passive Mood Description: Withdrawn Affect Description: Labile Patient Cognition Impaired: Yes Ability to Follow Directions: Good Speech Pattern: Clear Hallucinations: None Delusions: Paranoid Ideation and Ideas of Reference Thought Process: Distracted and Slowed Thinking Thought Content: positive for [place] and positive for Poverty of Content Judgement: Poor Diagnostics Vital Signs (24Hr): Vital Signs - 24 hr 04/14/23 18:00 04/15/23 09:36 Temperature 97.6 F 97.7 F Pulse Rate 80 112 H Respiratory Rate 16 18 Blood Pressure 114/62 130/95 H Pulse Oximetry 93 98 Oxygen Delivery Method Room Air Room Air BMI result Body Mass Index 15.5 Labs 04/07/23 23:41 04/07/23 23:41 Imaging Radiology Impressions: ITS Impressions Chest X-Ray 04/10/23 09:25 IMPRESSION: There is bulky-focal very mild linear scar/subsegmental atelectasis in the mid to lower left lung, likely related gaseous distention of the stomach. Medications Medications Current Medications Acetaminophen (Acetaminophen 325 Mg Tablet) 650 mg PO Q6H PRN PRN Reason: Pain (Scale Score 1-3) Last Admin: 04/13/23 17:59 Dose: 650 mg Acetaminophen (Acetaminophen 325 Mg Tablet) 650 mg PO Q6H PRN PRN Reason: Headache/Pain Mild Scale (1-3) Last Admin: 04/11/23 02:33 Dose: 650 mg Al Hydroxide/Mg Hydroxide (Magnesium Hydrox/Alum Hydrox 30 Ml Oral.Susp) 30 ml PO Q6H PRN PRN Reason: Heartburn/Nausea Divalproex Sodium (Divalproex Sodium 250 Mg Tablet.Dr) 250 mg PO BID [facility] Last Admin: 04/15/23 09:40 Dose: 250 mg Emtricitabine/Tenofovir Alafenamide (Emtricitabine/Tenofov Alafenam Tablet) 1 tab PO DAILY [facility] Last Admin: 04/15/23 09:40 Dose: 1 tab Haloperidol (Haloperidol 1 Mg Tablet) 1 mg PO TID PRN PRN Reason: psychotic agitation Last Admin: 04/15/23 09:39 Dose: 1 mg Haloperidol Decanoate (Haloperidol Decanoate 50 Mg/Ml Ampul) 100 mg IM Q28D [facility] Levetiracetam (Levetiracetam 500 Mg Tablet) 500 mg PO BID [facility] Last Admin: 04/15/23 09:40 Dose: 500 mg Magnesium Hydroxide (Milk Of Magnesia 30 Ml Oral.Susp) 30 ml PO DAILY PRN PRN Reason: Constipation Mirtazapine (Mirtazapine 15 Mg Tablet) 15 mg PO BEDTIME [facility] Last Admin: 04/14/23 20:37 Dose: 15 mg Olanzapine (Olanzapine 5 Mg Tablet) 5 mg PO TID PRN PRN Reason: agitation Last Admin: 04/15/23 11:25 Dose: 5 mg Olanzapine (Olanzapine 10 Mg Tablet) 20 mg PO BEDTIME [facility] Last Admin: 04/14/23 20:38 Dose: 20 mg Polyethylene Glycol (Polyethylene Glycol 3350 17 Gm Powd.Pack) 17 gm PO DAILY PRN PRN Reason: Constipation Rilpivirine (Rilpivirine Hcl 25 Mg Tablet) 25 mg PO DAILY [facility] Last Admin: 04/15/23 09:40 Dose: 25 mg Thiamine HCl (Thiamine Hcl 100 Mg Tablet) 100 mg PO DAILY [facility] Last Admin: 04/15/23 09:40 Dose: 100 mg Trazodone HCl (Trazodone Hcl 25 Mg Halftab) 25 mg PO BEDTIME MRX1 PRN PRN Reason: Insomnia Last Admin: 04/14/23 20:38 Dose: 25 mg Allergies Allergies Allergy/AdvReac Type Severity Reaction Status Date / Time No Known Allergies Allergy Unverified 01/28/20 16:07 [No Known Allergies*] Assessment & Plan Assessment & Plan (1) Dementia: Status: Acute Code(s): F03.90 - Unspecified dementia, unspecified severity, without behavioral disturbance, psychotic disturbance, mood disturbance, and anxiety (2) Schizoaffective disorder, bipolar type: Status: Acute Code(s): F25.0 - Schizoaffective disorder, bipolar type Plan the patient is an elderly male with a past history of schizoaffective disorder and dementia who was brought from his rest home for exacerbation of psychosis, disorganized behavior and inappropriate sexual behavior with exit seeking behavior due to noncompliance for several days with his medications. The patient is unable to provide any more details due to his advanced dementia. 04/13/23- Given Haldol 5 mg, Ativan 2 mg during the night for severe aggressive agitation as Olanzapine was not effective. Today, sedate- change prn's to Haldol 1 mg tid prn and Ativan 0.25 mg tid prn 04/14/23- Agitated. Olanzapine prn has not been effective per team Discontinue Lorazapem 0.25 mg tid prn Increase Depakote to 250 mg bid Consider possibly replacing Keppra with Depakote with further titration if tolerated as it should provide improved mood control. Plan 1. Gather collateral information. 2. We will continue with his medications as per court order. 3. We will refer to Medicine and blood work. 4. Reassessment results. 5. 15 minute checks. 6. We are going to increase Zyprexa to 20 mg p.o. q.h.s. on April 12. 7. Depakote level and comprehensive metabolic panel for next Saturday. We are reordering for next day Reason for continued inpatient stay Substantial Risk for: inability to function, rapid decompensation and med/psych decompensation Time Spent With Patient Time: Total time managing care of this patient today __20__ minutes.
--- NOTE | 2023-04-15 15:38 | MHC.SLORD ---
Speech Language Pathology Order Status: Pt agitated, would not be able to participate in PO trials this afternoon. Per RN, pt has been tolerating meals without any difficulties, no indication for further ST f/u. Pt is on a regular texture diet, recommended total supervision and aspiration precautions d/t impulsivity. Please re-refer if FACILITIES OPERATIONS TECHNICIAN can be of further assistance.
[2023-04-15] MEDS: Acetaminophen 325 MG TABLET 650 MG PO (15:49)
[2023-04-15 20:12] VITALS: BP 96/54; PULSE 96; RESP 18; TEMP 36.7; O2SAT 96
[2023-04-15] MEDS: Mirtazapine 15 MG TABLET PO (20:54)
[2023-04-15] MEDS: traZODone HCL 25 MG HALFTAB PO (20:54)
[2023-04-15] MEDS: OLANZapine 10 MG TABLET 20 MG PO (20:54)
[2023-04-16] MEDS: Acetaminophen 325 MG TABLET 650 MG PO (03:06)
[2023-04-16] MEDS: HaloperidoL 1 MG TABLET PO ×2 (03:08→10:02)
[2023-04-16] MEDS: OLANZapine 5 MG TABLET PO ×3 (03:08→10:02)
[2023-04-16] MEDS: LORazepam 1 MG TABLET PO (05:52)
[2023-04-16] MEDS: levETIRAcetam 500 MG TABLET PO ×2 (08:06→22:34)
[2023-04-16] MEDS: Thiamine HCL 100 MG TABLET PO (08:06)
[2023-04-16] MEDS: Rilpivirine HCL 25 MG TABLET PO (08:06)
[2023-04-16] MEDS: Emtricitabine/Tenofov Alafenam TABLET 1 TAB PO (08:07)
[2023-04-16] MEDS: Divalproex Sodium 250 MG TABLET.DR PO ×2 (08:07→22:34)
[2023-04-16] MEDS: LORazepam 1 MG TABLET 2 MG PO (12:24)
[2023-04-16] MEDS: OLANZapine ODT 10 MG TAB.RAPDIS 20 MG TRANSLINGU (12:24)
--- NOTE | 2023-04-16 13:09 | P.PNPSI_ITS ---
Subjective Subjective Date of Service: 04/16/23 Reason For Visit: agressive behavior Subjective Notes: [place] Order and Conditional Voluntary Interim History: The nursing staff reported the patient had been yelling, labile and agitated verbally aggressive at times. Yesterday he needed p.r.n. Zyprexa and today in the morning he needed another dose Zydis and Ativan. He had poor sleep and poor appetite. Today on interview the patient was over-sedated after being medicated since he was very psychotic. We decided to change Zyprexa to 5 mg p.o. b.i.d. and 10 mg p.o. q.h.s. and increase the Depakote up to 250 p.o. t.i.d.. We do not have lab work because he refused lab work to yesterday. We will reassess early next week. Mental Status Exam Mental Status Exam Patient Appearance: Unkempt Patient Orientation: Person Level of Consciousness: Sedated and Lethargic Patient Behavior: Guarded and Suspicious Mood Description: Withdrawn Affect Description: Labile Patient Cognition Impaired: Yes Ability to Follow Directions: Good Speech Pattern: Clear Hallucinations: None Delusions: Paranoid Ideation and Ideas of Reference Thought Process: Illogical and Distracted Thought Content: positive for [place], positive for Thought Blocking and positive for Incoherent Judgement: Poor Diagnostics Vital Signs (24Hr): Vital Signs - 24 hr 04/15/23 20:12 Temperature 98.0 F Pulse Rate 96 Respiratory Rate 18 Blood Pressure 96/54 L Pulse Oximetry 96 Oxygen Delivery Method Room Air BMI result Body Mass Index 15.5 Labs 04/07/23 23:41 04/07/23 23:41 Imaging Radiology Impressions: ITS Impressions Chest X-Ray 04/10/23 09:25 IMPRESSION: There is bulky-focal very mild linear scar/subsegmental atelectasis in the mid to lower left lung, likely related gaseous distention of the stomach. Medications Medications Current Medications Acetaminophen (Acetaminophen 325 Mg Tablet) 650 mg PO Q6H PRN PRN Reason: Pain (Scale Score 1-3) Last Admin: 04/16/23 03:06 Dose: 650 mg Acetaminophen (Acetaminophen 325 Mg Tablet) 650 mg PO Q6H PRN PRN Reason: Headache/Pain Mild Scale (1-3) Last Admin: 04/11/23 02:33 Dose: 650 mg Al Hydroxide/Mg Hydroxide (Magnesium Hydrox/Alum Hydrox 30 Ml Oral.Susp) 30 ml PO Q6H PRN PRN Reason: Heartburn/Nausea Divalproex Sodium (Divalproex Sodium 250 Mg Tablet.Dr) 250 mg PO TID [facility] Last Admin: 04/16/23 08:54 Dose: Not Given Emtricitabine/Tenofovir Alafenamide (Emtricitabine/Tenofov Alafenam Tablet) 1 tab PO DAILY [facility] Last Admin: 04/16/23 08:07 Dose: 1 tab Haloperidol (Haloperidol 1 Mg Tablet) 1 mg PO TID PRN PRN Reason: psychotic agitation Last Admin: 04/16/23 10:02 Dose: 1 mg Haloperidol Decanoate (Haloperidol Decanoate 50 Mg/Ml Ampul) 100 mg IM Q28D [facility] Levetiracetam (Levetiracetam 500 Mg Tablet) 500 mg PO BID [facility] Last Admin: 04/16/23 08:06 Dose: 500 mg Magnesium Hydroxide (Milk Of Magnesia 30 Ml Oral.Susp) 30 ml PO DAILY PRN PRN Reason: Constipation Mirtazapine (Mirtazapine 15 Mg Tablet) 15 mg PO BEDTIME [facility] Last Admin: 04/15/23 20:54 Dose: 15 mg Olanzapine (Olanzapine 5 Mg Tablet) 5 mg PO TID PRN PRN Reason: agitation Last Admin: 04/16/23 10:02 Dose: 5 mg Olanzapine (Olanzapine 5 Mg Tablet) 5 mg PO BID@0830,1330 [facility] Olanzapine (Olanzapine 10 Mg Tablet) 10 mg PO BEDTIME [facility] Polyethylene Glycol (Polyethylene Glycol 3350 17 Gm Powd.Pack) 17 gm PO DAILY PRN PRN Reason: Constipation Rilpivirine (Rilpivirine Hcl 25 Mg Tablet) 25 mg PO DAILY [facility] Last Admin: 04/16/23 08:06 Dose: 25 mg Thiamine HCl (Thiamine Hcl 100 Mg Tablet) 100 mg PO DAILY [facility] Last Admin: 04/16/23 08:06 Dose: 100 mg Trazodone HCl (Trazodone Hcl 25 Mg Halftab) 25 mg PO BEDTIME MRX1 PRN PRN Reason: Insomnia Last Admin: 04/15/23 20:54 Dose: 25 mg Allergies Allergies Allergy/AdvReac Type Severity Reaction Status Date / Time No Known Allergies Allergy Unverified 01/28/20 16:07 [No Known Allergies*] Assessment & Plan Assessment & Plan (1) Dementia: Status: Acute Code(s): F03.90 - Unspecified dementia, unspecified severity, without behavioral disturbance, psychotic disturbance, mood disturbance, and anxiety (2) Schizoaffective disorder, bipolar type: Status: Acute Code(s): F25.0 - Schizoaffective disorder, bipolar type Plan the patient is an elderly male with a past history of schizoaffective disorder and dementia who was brought from his rest home for exacerbation of psychosis, disorganized behavior and inappropriate sexual behavior with exit seeking behavior due to noncompliance for several days with his medications. The patient is unable to provide any more details due to his advanced dementia. 04/13/23- Given Haldol 5 mg, Ativan 2 mg during the night for severe aggressive agitation as Olanzapine was not effective. Today, sedate- change prn's to Haldol 1 mg tid prn and Ativan 0.25 mg tid prn 04/14/23- Agitated. Olanzapine prn has not been effective per team Discontinue Lorazapem 0.25 mg tid prn Increase Depakote to 250 mg bid Consider possibly replacing Keppra with Depakote with further titration if tolerated as it should provide improved mood control. Plan 1. Gather collateral information. 2. We will continue with his medications as per court order. 3. We will refer to Medicine and blood work. 4. Reassessment results. 5. 15 minute checks. 6. We are going to increase Zyprexa to 20 mg p.o. q.h.s. on April 12. On April 16 we are changing Zyprexa 5 mg p.o. b.i.d. and 10 mg p.o. q.h.s. 7. Depakote level and comprehensive metabolic panel for next Saturday. We are reordering for next day but he has refused. 8. Increase Depakote up to 150 p.o. t.i.d.. Reason for continued inpatient stay Substantial Risk for: inability to function, rapid decompensation and med/psych decompensation Time Spent With Patient Time: Total time managing care of this patient today __20__ minutes.
[2023-04-16 20:10] VITALS: BP 123/83; PULSE 102; RESP 16; TEMP 36.6; O2SAT 95
[2023-04-16] MEDS: traZODone HCL 25 MG HALFTAB PO (22:34)
[2023-04-16] MEDS: Mirtazapine 15 MG TABLET PO (22:34)
[2023-04-16] MEDS: OLANZapine 10 MG TABLET PO (22:34)
[2023-04-17] MEDS: traZODone HCL 25 MG HALFTAB PO ×2 (02:42→22:43)
[2023-04-17] MEDS: LORazepam 1 MG TABLET 2 MG PO ×2 (02:42→15:15)
[2023-04-17] MEDS: OLANZapine 5 MG TABLET PO ×2 (02:42→15:16)
[2023-04-17] MEDS: Acetaminophen 325 MG TABLET 650 MG PO (04:11)
[2023-04-17] MEDS: HaloperidoL 1 MG TABLET PO ×2 (04:11→22:43)
--- NOTE | 2023-04-17 10:48 | P.PNPSI_ITS ---
Subjective Subjective Date of Service: 04/17/23 Reason For Visit: agressive behavior Subjective Notes: Pedraza Order and Conditional Voluntary Interim History: The nursing staff reported that yesterday he needed to be medicated in the morning with Zyprexa 20 mg and Ativan 2 p.o.. He also receive another PRNs during the night and he slept poorly. He had been compliant with medications but he remains aggressive. He has eaten only 50% of his meals. According to the social insurance administrator, the [facility] facility stated that he received his Haldol deck last month on the . He had been medically and apparently he was admitted to the hospital medically in the last weeks and that is why he was not fully compliant with treatment. On interview the patient remains psychotic, disorganized. Mental Status Exam Mental Status Exam Patient Appearance: Appropriate and Unkempt Patient Orientation: Person and Situation Level of Consciousness: Awake and Drowsy Patient Behavior: Guarded, Passive and Restless Mood Description: Withdrawn Affect Description: Constricted Patient Cognition Impaired: Yes Ability to Follow Directions: Fair Speech Pattern: Impoverished and Garbled Hallucinations: Auditory Delusions: Paranoid Ideation and Ideas of Reference Thought Process: Illogical, Distracted and Slowed Thinking Thought Content: positive for [place], positive for Poverty of Content and positive for Slowed Thinking Judgement: Poor Diagnostics Vital Signs (24Hr): Vital Signs - 24 hr 04/16/23 20:10 Temperature 97.9 F Pulse Rate 102 H Respiratory Rate 16 Blood Pressure 123/83 Pulse Oximetry 95 Oxygen Delivery Method Room Air BMI result Body Mass Index 15.5 Labs 04/07/23 23:41 04/07/23 23:41 Imaging Radiology Impressions: ITS Impressions Chest X-Ray 04/10/23 09:25 IMPRESSION: There is bulky-focal very mild linear scar/subsegmental atelectasis in the mid to lower left lung, likely related gaseous distention of the stomach. Medications Medications Current Medications Acetaminophen (Acetaminophen 325 Mg Tablet) 650 mg PO Q6H PRN PRN Reason: Pain (Scale Score 1-3) Last Admin: 04/16/23 03:06 Dose: 650 mg Acetaminophen (Acetaminophen 325 Mg Tablet) 650 mg PO Q6H PRN PRN Reason: Headache/Pain Mild Scale (1-3) Last Admin: 04/17/23 04:11 Dose: 650 mg Al Hydroxide/Mg Hydroxide (Magnesium Hydrox/Alum Hydrox 30 Ml Oral.Susp) 30 ml PO Q6H PRN PRN Reason: Heartburn/Nausea Divalproex Sodium (Divalproex Sodium 250 Mg Tablet.Dr) 250 mg PO TID [facility] Last Admin: 04/16/23 22:34 Dose: 250 mg Emtricitabine/Tenofovir Alafenamide (Emtricitabine/Tenofov Alafenam Tablet) 1 tab PO DAILY [facility] Last Admin: 04/16/23 08:07 Dose: 1 tab Haloperidol (Haloperidol 1 Mg Tablet) 1 mg PO TID PRN PRN Reason: psychotic agitation Last Admin: 04/17/23 04:11 Dose: 1 mg Haloperidol Decanoate (Haloperidol Decanoate 50 Mg/Ml Ampul) 100 mg IM Q28D [facility] Levetiracetam (Levetiracetam 500 Mg Tablet) 500 mg PO BID [facility] Last Admin: 04/16/23 22:34 Dose: 500 mg Lorazepam (Lorazepam 1 Mg Tablet) 2 mg PO Q6H PRN PRN Reason: Anxiety Last Admin: 04/17/23 02:42 Dose: 2 mg Magnesium Hydroxide (Milk Of Magnesia 30 Ml Oral.Susp) 30 ml PO DAILY PRN PRN Reason: Constipation Mirtazapine (Mirtazapine 15 Mg Tablet) 15 mg PO BEDTIME [facility] Last Admin: 04/16/23 22:34 Dose: 15 mg Olanzapine (Olanzapine 5 Mg Tablet) 5 mg PO TID PRN PRN Reason: agitation Last Admin: 04/17/23 02:42 Dose: 5 mg Olanzapine (Olanzapine 5 Mg Tablet) 5 mg PO BID@0830,1330 [facility] Last Admin: 04/16/23 13:57 Dose: Not Given Olanzapine (Olanzapine 10 Mg Tablet) 10 mg PO BEDTIME [facility] Last Admin: 04/16/23 22:34 Dose: 10 mg Polyethylene Glycol (Polyethylene Glycol 3350 17 Gm Powd.Pack) 17 gm PO DAILY PRN PRN Reason: Constipation Rilpivirine (Rilpivirine Hcl 25 Mg Tablet) 25 mg PO DAILY [facility] Last Admin: 04/16/23 08:06 Dose: 25 mg Thiamine HCl (Thiamine Hcl 100 Mg Tablet) 100 mg PO DAILY [facility] Last Admin: 04/16/23 08:06 Dose: 100 mg Trazodone HCl (Trazodone Hcl 25 Mg Halftab) 25 mg PO BEDTIME MRX1 PRN PRN Reason: Insomnia Last Admin: 04/17/23 02:42 Dose: 25 mg Allergies Allergies Allergy/AdvReac Type Severity Reaction Status Date / Time No Known Allergies Allergy Unverified 01/28/20 16:07 [No Known Allergies*] Assessment & Plan Assessment & Plan (1) Dementia: Status: Acute Code(s): F03.90 - Unspecified dementia, unspecified severity, without behavioral disturbance, psychotic disturbance, mood disturbance, and anxiety (2) Schizoaffective disorder, bipolar type: Status: Acute Code(s): F25.0 - Schizoaffective disorder, bipolar type Plan the patient is an elderly male with a past history of schizoaffective disorder and dementia who was brought from his rest home for exacerbation of psychosis, disorganized behavior and inappropriate sexual behavior with exit seeking behavior due to noncompliance for several days with his medications. The patient is unable to provide any more details due to his advanced dementia. 04/13/23- Given Haldol 5 mg, Ativan 2 mg during the night for severe aggressive agitation as Olanzapine was not effective. Today, sedate- change prn's to Haldol 1 mg tid prn and Ativan 0.25 mg tid prn 04/14/23- Agitated. Olanzapine prn has not been effective per team Discontinue Lorazapem 0.25 mg tid prn Increase Depakote to 250 mg bid Consider possibly replacing Keppra with Depakote with further titration if tolerated as it should provide improved mood control. Plan 1. Gather collateral information. 2. We will continue with his medications as per court order. 3. We will refer to Medicine and blood work. 4. Reassessment results. 5. 15 minute checks. 6. We are going to increase Zyprexa to 20 mg p.o. q.h.s. on April 12. On April 16 we are changing Zyprexa 5 mg p.o. b.i.d. and 10 mg p.o. q.h.s. 7. Depakote level and comprehensive metabolic panel for next Saturday. We are reordering for next day but he has refused. We are going to reordered next week when he is more stable. 8. Increase Depakote up to 250 p.o. t.i.d.. Reason for continued inpatient stay Substantial Risk for: harm to others, inability to function, rapid decompensation and med/psych decompensation Time Spent With Patient Time: Total time managing care of this patient today __20__ minutes.
--- NOTE | 2023-04-17 13:17 | PC.NURSE ---
Patient received Haldol Deconate ACEVEDO in L Deltoid. Patient tolerated well.
--- NOTE | 2023-04-17 14:33 | MHC.CLN ---
F/U DIET=REGULAR. MAGIC CUP ADDED BID TO INCREASE CALORIC INTAKE. PROVIDES 580 KCALS, 18 G PROTEIN. DID NOT TAKE BREAKFAST OR LUNCH TODAY. FOLLOW FOR WEIGHT AND INTAKE.
[2023-04-17] MEDS: Divalproex Sodium 250 MG TABLET.DR PO ×2 (15:17→22:43)
[2023-04-17 19:35] VITALS: BP 130/93; PULSE 100; RESP 18; TEMP 36.3; O2SAT 97
[2023-04-17] MEDS: OLANZapine 10 MG TABLET PO (22:43)
[2023-04-17] MEDS: levETIRAcetam 500 MG TABLET PO (22:43)
[2023-04-17] MEDS: Mirtazapine 15 MG TABLET PO (22:43)
[2023-04-18] MEDS: LORazepam 1 MG TABLET 2 MG PO (01:23)
[2023-04-18 06:00] VITALS: BP 134/99; PULSE 108; RESP 18; TEMP 36.6; O2SAT 97
[2023-04-18] MEDS: Divalproex Sodium 250 MG TABLET.DR PO ×3 (08:49→21:13)
[2023-04-18] MEDS: Emtricitabine/Tenofov Alafenam TABLET 1 TAB PO (08:50)
[2023-04-18] MEDS: levETIRAcetam 500 MG TABLET PO ×2 (08:50→21:13)
[2023-04-18] MEDS: Thiamine HCL 100 MG TABLET PO (08:50)
[2023-04-18] MEDS: OLANZapine 5 MG TABLET PO ×2 (08:53→13:36)
[2023-04-18] MEDS: Rilpivirine HCL 25 MG TABLET PO (08:53)
--- NOTE | 2023-04-18 11:49 | HO.PSYCHPN ---
Subjective Subjective Date of Service: 04/18/23 Reason For Visit: agressive behavior Subjective Notes: Pedraza Order and Conditional Voluntary Interim History: The nursing staff reported that yesterday the patient was agitated, he needed to be medicated several times and he slept most of the day. Last night he did not sleep he slept only 4 hours and today he was very sedated and sleepy. He remains psychotic yelling and swearing. Today in the afternoon and reassess him and he was sleepy more common. We change the olanzapine to 3 times a day. Mental Status Exam Mental Status Exam Patient Appearance: Unkempt Patient Orientation: Person Level of Consciousness: Sedated and Disoriented Patient Behavior: Guarded and Suspicious Mood Description: Withdrawn Affect Description: Labile Patient Cognition Impaired: Yes Ability to Follow Directions: Good Speech Pattern: Impoverished and Monotone Hallucinations: None Delusions: Paranoid Ideation and Ideas of Reference Thought Process: Illogical and Distracted Thought Content: positive for [place], positive for [place] and positive for Poverty of Content Judgement: Poor Diagnostics Vital Signs (24Hr): Vital Signs - 24 hr 04/17/23 19:35 04/18/23 06:00 Temperature 97.4 F 97.8 F Pulse Rate 100 108 H Respiratory Rate 18 18 Blood Pressure 130/93 H 134/99 H Pulse Oximetry 97 97 Oxygen Delivery Method Room Air Room Air BMI result Body Mass Index 15.5 Labs 04/07/23 23:41 04/07/23 23:41 Imaging Radiology Impressions: ITS Impressions Chest X-Ray 04/10/23 09:25 IMPRESSION: There is bulky-focal very mild linear scar/subsegmental atelectasis in the mid to lower left lung, likely related gaseous distention of the stomach. Medications Medications Current Medications Acetaminophen (Acetaminophen 325 Mg Tablet) 650 mg PO Q6H PRN PRN Reason: Pain (Scale Score 1-3) Last Admin: 04/16/23 03:06 Dose: 650 mg Acetaminophen (Acetaminophen 325 Mg Tablet) 650 mg PO Q6H PRN PRN Reason: Headache/Pain Mild Scale (1-3) Last Admin: 04/17/23 04:11 Dose: 650 mg Al Hydroxide/Mg Hydroxide (Magnesium Hydrox/Alum Hydrox 30 Ml Oral.Susp) 30 ml PO Q6H PRN PRN Reason: Heartburn/Nausea Divalproex Sodium (Divalproex Sodium 250 Mg Tablet.Dr) 250 mg PO TID [facility] Last Admin: 04/18/23 08:49 Dose: 250 mg Emtricitabine/Tenofovir Alafenamide (Emtricitabine/Tenofov Alafenam Tablet) 1 tab PO DAILY [facility] Last Admin: 04/18/23 08:50 Dose: 1 tab Haloperidol (Haloperidol 1 Mg Tablet) 1 mg PO TID PRN PRN Reason: psychotic agitation Last Admin: 04/17/23 22:43 Dose: 1 mg Haloperidol Decanoate (Haloperidol Decanoate 50 Mg/Ml Ampul) 100 mg IM Q28D [facility] Last Admin: 04/17/23 13:16 Dose: 100 mg Levetiracetam (Levetiracetam 500 Mg Tablet) 500 mg PO BID [facility] Last Admin: 04/18/23 08:50 Dose: 500 mg Lorazepam (Lorazepam 1 Mg Tablet) 2 mg PO Q6H PRN PRN Reason: Anxiety Last Admin: 04/18/23 01:23 Dose: 2 mg Magnesium Hydroxide (Milk Of Magnesia 30 Ml Oral.Susp) 30 ml PO DAILY PRN PRN Reason: Constipation Mirtazapine (Mirtazapine 15 Mg Tablet) 15 mg PO BEDTIME [facility] Last Admin: 04/17/23 22:43 Dose: 15 mg Olanzapine (Olanzapine 5 Mg Tablet) 5 mg PO TID PRN PRN Reason: agitation Last Admin: 04/17/23 15:16 Dose: 5 mg Olanzapine (Olanzapine 5 Mg Tablet) 5 mg PO BID@0830,1330 [facility] Last Admin: 04/18/23 08:53 Dose: 5 mg Olanzapine (Olanzapine 10 Mg Tablet) 10 mg PO BEDTIME [facility] Last Admin: 04/17/23 22:43 Dose: 10 mg Polyethylene Glycol (Polyethylene Glycol 3350 17 Gm Powd.Pack) 17 gm PO DAILY PRN PRN Reason: Constipation Rilpivirine (Rilpivirine Hcl 25 Mg Tablet) 25 mg PO DAILY [facility] Last Admin: 04/18/23 08:53 Dose: 25 mg Thiamine HCl (Thiamine Hcl 100 Mg Tablet) 100 mg PO DAILY [facility] Last Admin: 04/18/23 08:50 Dose: 100 mg Trazodone HCl (Trazodone Hcl 25 Mg Halftab) 25 mg PO BEDTIME MRX1 PRN PRN Reason: Insomnia Last Admin: 04/17/23 22:43 Dose: 25 mg Allergies Allergies Allergy/AdvReac Type Severity Reaction Status Date / Time No Known Allergies Allergy Unverified 01/28/20 16:07 [No Known Allergies*] Assessment & Plan Assessment & Plan (1) Dementia: Status: Acute Code(s): F03.90 - Unspecified dementia, unspecified severity, without behavioral disturbance, psychotic disturbance, mood disturbance, and anxiety (2) Schizoaffective disorder, bipolar type: Status: Acute Code(s): F25.0 - Schizoaffective disorder, bipolar type Plan the patient is an elderly male with a past history of schizoaffective disorder and dementia who was brought from his rest home for exacerbation of psychosis, disorganized behavior and inappropriate sexual behavior with exit seeking behavior due to noncompliance for several days with his medications. The patient is unable to provide any more details due to his advanced dementia. 04/13/23- Given Haldol 5 mg, Ativan 2 mg during the night for severe aggressive agitation as Olanzapine was not effective. Today, sedate- change prn's to Haldol 1 mg tid prn and Ativan 0.25 mg tid prn 04/14/23- Agitated. Olanzapine prn has not been effective per team Discontinue Lorazapem 0.25 mg tid prn Increase Depakote to 250 mg bid Consider possibly replacing Keppra with Depakote with further titration if tolerated as it should provide improved mood control. Plan 1. Gather collateral information. 2. We will continue with his medications as per court order. 3. We will refer to Medicine and blood work. 4. Reassessment results. 5. 15 minute checks. 6. We are going to increase Zyprexa to 20 mg p.o. q.h.s. on April 12. On April 16 we are changing Zyprexa 5 mg p.o. b.i.d. and 10 mg p.o. q.h.s. 7. Depakote level and comprehensive metabolic panel for next Saturday. We are reordering for next day but he has refused. We are going to reordered next week when he is more stable. 8. Increase Depakote up to 250 p.o. t.i.d.. Reason for continued inpatient stay Substantial Risk for: inability to function, rapid decompensation and med/psych decompensation Time Spent With Patient Time: Total time managing care of this patient today __20__ minutes.
[2023-04-18 19:40] VITALS: BP 143/88; PULSE 120; RESP 20; TEMP 37.3; O2SAT 95
[2023-04-18] MEDS: OLANZapine 10 MG TABLET PO (21:13)
[2023-04-18] MEDS: Mirtazapine 15 MG TABLET PO (21:13)
[2023-04-18] MEDS: traZODone HCL 25 MG HALFTAB PO (21:13)
[2023-04-19 04:02] VITALS: BP 131/83; PULSE 121; RESP 18; TEMP 37.1; O2SAT 96
[2023-04-19] MEDS: Acetaminophen 325 MG TABLET 650 MG PO ×2 (05:48→20:57)
[2023-04-19 06:00] VITALS: BP 118/70; PULSE 112; RESP 18; TEMP 36.7; O2SAT 97
--- NOTE | 2023-04-19 07:57 | P.PNPSI_ITS ---
Subjective Subjective Date of Service: 04/19/23 Reason For Visit: agressive behavior Subjective Notes: Pedraza Order and Conditional Voluntary Interim History: The nursing staff reported the patient was sedated yesterday in the morning but he was up in the afternoon. He slept 7 hours but needed trazodone p.r.n.. The staff has noticed that he looks congested so we are going to reorder a chest x-ray. On interview the patient denies new symptoms he is disinhibited at times but more redirectable. Mental Status Exam Mental Status Exam Patient Appearance: Well Grooomed and Appropriate Patient Orientation: Person and Situation Level of Consciousness: Awake and Appropriate Patient Behavior: Guarded and Passive Mood Description: Withdrawn Affect Description: Constricted and Labile Patient Cognition Impaired: Yes Ability to Follow Directions: Good Speech Pattern: Clear Hallucinations: None Delusions: Paranoid Ideation and Ideas of Reference Thought Process: Distracted and Slowed Thinking Thought Content: positive for [place] and positive for Poverty of Content Judgement: Fair Diagnostics Vital Signs (24Hr): Vital Signs - 24 hr 04/18/23 19:40 04/19/23 04:02 Temperature 99.1 F 98.7 F Pulse Rate 120 H 121 H Respiratory Rate 20 18 Blood Pressure 143/88 H 131/83 Pulse Oximetry 95 96 Oxygen Delivery Method Room Air Room Air BMI result Body Mass Index 15.5 Labs 04/07/23 23:41 04/07/23 23:41 Imaging Radiology Impressions: ITS Impressions Chest X-Ray 04/10/23 09:25 IMPRESSION: There is bulky-focal very mild linear scar/subsegmental atelectasis in the mid to lower left lung, likely related gaseous distention of the stomach. Medications Medications Current Medications Acetaminophen (Acetaminophen 325 Mg Tablet) 650 mg PO Q6H PRN PRN Reason: Pain (Scale Score 1-3) Last Admin: 04/19/23 05:48 Dose: 650 mg Acetaminophen (Acetaminophen 325 Mg Tablet) 650 mg PO Q6H PRN PRN Reason: Headache/Pain Mild Scale (1-3) Last Admin: 04/17/23 04:11 Dose: 650 mg Al Hydroxide/Mg Hydroxide (Magnesium Hydrox/Alum Hydrox 30 Ml Oral.Susp) 30 ml PO Q6H PRN PRN Reason: Heartburn/Nausea Divalproex Sodium (Divalproex Sodium 250 Mg Tablet.Dr) 250 mg PO TID [facility] Last Admin: 04/18/23 21:13 Dose: 250 mg Emtricitabine/Tenofovir Alafenamide (Emtricitabine/Tenofov Alafenam Tablet) 1 tab PO DAILY [facility] Last Admin: 04/18/23 08:50 Dose: 1 tab Haloperidol (Haloperidol 1 Mg Tablet) 1 mg PO TID PRN PRN Reason: psychotic agitation Last Admin: 04/17/23 22:43 Dose: 1 mg Haloperidol Decanoate (Haloperidol Decanoate 50 Mg/Ml Ampul) 100 mg IM Q28D [facility] Last Admin: 04/17/23 13:16 Dose: 100 mg Levetiracetam (Levetiracetam 500 Mg Tablet) 500 mg PO BID [facility] Last Admin: 04/18/23 21:13 Dose: 500 mg Lorazepam (Lorazepam 1 Mg Tablet) 2 mg PO Q6H PRN PRN Reason: Anxiety Last Admin: 04/18/23 01:23 Dose: 2 mg Magnesium Hydroxide (Milk Of Magnesia 30 Ml Oral.Susp) 30 ml PO DAILY PRN PRN Reason: Constipation Mirtazapine (Mirtazapine 15 Mg Tablet) 15 mg PO BEDTIME [facility] Last Admin: 04/18/23 21:13 Dose: 15 mg Olanzapine (Olanzapine 5 Mg Tablet) 5 mg PO TID PRN PRN Reason: agitation Last Admin: 04/17/23 15:16 Dose: 5 mg Olanzapine (Olanzapine 5 Mg Tablet) 5 mg PO BID@0830,1330 [facility] Last Admin: 04/18/23 13:36 Dose: 5 mg Olanzapine (Olanzapine 10 Mg Tablet) 10 mg PO BEDTIME [facility] Last Admin: 04/18/23 21:13 Dose: 10 mg Polyethylene Glycol (Polyethylene Glycol 3350 17 Gm Powd.Pack) 17 gm PO DAILY PRN PRN Reason: Constipation Rilpivirine (Rilpivirine Hcl 25 Mg Tablet) 25 mg PO DAILY [facility] Last Admin: 04/18/23 08:53 Dose: 25 mg Thiamine HCl (Thiamine Hcl 100 Mg Tablet) 100 mg PO DAILY [facility] Last Admin: 04/18/23 08:50 Dose: 100 mg Trazodone HCl (Trazodone Hcl 25 Mg Halftab) 25 mg PO BEDTIME MRX1 PRN PRN Reason: Insomnia Last Admin: 04/18/23 21:13 Dose: 25 mg Allergies Allergies Allergy/AdvReac Type Severity Reaction Status Date / Time No Known Allergies Allergy Unverified 01/28/20 16:07 [No Known Allergies*] Assessment & Plan Assessment & Plan (1) Dementia: Status: Acute Code(s): F03.90 - Unspecified dementia, unspecified severity, without behavioral disturbance, psychotic disturbance, mood disturbance, and anxiety (2) Schizoaffective disorder, bipolar type: Status: Acute Code(s): F25.0 - Schizoaffective disorder, bipolar type Plan the patient is an elderly male with a past history of schizoaffective disorder and dementia who was brought from his rest home for exacerbation of psychosis, disorganized behavior and inappropriate sexual behavior with exit seeking behavior due to noncompliance for several days with his medications. The patient is unable to provide any more details due to his advanced dementia. 04/13/23- Given Haldol 5 mg, Ativan 2 mg during the night for severe aggressive agitation as Olanzapine was not effective. Today, sedate- change prn's to Haldol 1 mg tid prn and Ativan 0.25 mg tid prn 04/14/23- Agitated. Olanzapine prn has not been effective per team Discontinue Lorazapem 0.25 mg tid prn Increase Depakote to 250 mg bid Consider possibly replacing Keppra with Depakote with further titration if tolerated as it should provide improved mood control. Plan 1. Gather collateral information. 2. We will continue with his medications as per court order. 3. We will refer to Medicine and blood work. 4. Reassessment results. 5. 15 minute checks. 6. We are going to increase Zyprexa to 20 mg p.o. q.h.s. on April 12. On April 16 we are changing Zyprexa 5 mg p.o. b.i.d. and 10 mg p.o. q.h.s. 7. Depakote level and comprehensive metabolic panel for next Saturday. We are reordering for next day but he has refused. We are going to reordered next week when he is more stable. 8. Increase Depakote up to 250 p.o. t.i.d.. Reason for continued inpatient stay Substantial Risk for: inability to function, rapid decompensation and med/psych decompensation Time Spent With Patient Time: Total time managing care of this patient today __20__ minutes.
[2023-04-19] MEDS: levETIRAcetam 500 MG TABLET PO ×2 (08:11→20:51)
[2023-04-19] MEDS: Emtricitabine/Tenofov Alafenam TABLET 1 TAB PO (08:11)
[2023-04-19] MEDS: Thiamine HCL 100 MG TABLET PO (08:11)
[2023-04-19] MEDS: Divalproex Sodium 250 MG TABLET.DR PO ×2 (08:11→14:58)
[2023-04-19] MEDS: OLANZapine 5 MG TABLET PO ×3 (08:11→13:46)
[2023-04-19] MEDS: Rilpivirine HCL 25 MG TABLET PO (08:11)
[2023-04-19] MEDS: HaloperidoL 1 MG TABLET PO (11:01)
--- NOTE | 2023-04-19 11:03 | MHC.CLN ---
Addendum entered by Faye Javier, LEONEL 04/19/23 12:01: ATE 50% AT BREAKFAST TODAY. FOR LUNCH, IN DINING AREA BUT REFUSED MEAL. Original Note: F/U DIET=REGULAR. MAGIC CUP ADDED BID TO INCREASE CALORIC INTAKE. PROVIDES 580 KCALS, 18 G PROTEIN. ACCEPTING MEALS. FOLLOW FOR WEIGHT AND INTAKE. RD TO FOLLOW UP WEEKLY.
[2023-04-19] MEDS: LORazepam 1 MG TABLET PO (11:24)
[2023-04-19] MEDS: LORazepam 1 MG TABLET 2 MG PO ×2 (14:57→23:37)
[2023-04-19 19:43] VITALS: BP 121/81; PULSE 129; RESP 18; TEMP 38.1; O2SAT 96
[2023-04-19] MEDS: traZODone HCL 25 MG HALFTAB PO ×2 (20:50→23:37)
[2023-04-19] MEDS: OLANZapine 10 MG TABLET PO (20:50)
[2023-04-19] MEDS: Mirtazapine 15 MG TABLET PO (20:51)
[2023-04-20] MEDS: Rilpivirine HCL 25 MG TABLET PO (08:10)
[2023-04-20] MEDS: Thiamine HCL 100 MG TABLET PO (08:10)
[2023-04-20] MEDS: Emtricitabine/Tenofov Alafenam TABLET 1 TAB PO (08:10)
[2023-04-20] MEDS: levETIRAcetam 500 MG TABLET PO ×2 (08:10→21:07)
[2023-04-20] MEDS: OLANZapine 5 MG TABLET PO (08:10)
[2023-04-20] MEDS: Divalproex Sodium 250 MG TABLET.DR PO ×2 (08:10→21:07)
[2023-04-20] MEDS: HaloperidoL 1 MG TABLET PO (08:11)
[2023-04-20] MEDS: LORazepam 1 MG TABLET PO (08:12)
--- NOTE | 2023-04-20 10:01 | P.PNPSI_ITS ---
Subjective Subjective Date of Service: 04/20/23 Reason For Visit: agressive behavior Subjective Notes: Conditional Voluntary Interim History: The nursing staff reported the patient took half of his breakfast today is 6 chest x-ray that shows some atelectasis mostly in the bases. He had been irritable but compliant with his medications received p.r.n. Ativan 01:00 and he slept well. Today on interview the patient was nonsensical at times but pleasant and redirectable. Mental Status Exam Mental Status Exam Patient Appearance: Appropriate Patient Orientation: Person and Situation Level of Consciousness: Awake Patient Behavior: Guarded and Restless Mood Description: Withdrawn Affect Description: Labile Patient Cognition Impaired: Yes Ability to Follow Directions: Good Speech Pattern: Impoverished Hallucinations: None Delusions: Paranoid Ideation Thought Process: Distracted and Slowed Thinking Thought Content: positive for [place], positive for [place] of Content, positive for [place]ose [place] and positive for Thought Blocking Judgement: Poor Diagnostics Vital Signs (24Hr): Vital Signs - 24 hr 04/19/23 19:43 Temperature 100.5 F H Pulse Rate 129 H Respiratory Rate 18 Blood Pressure 121/81 Pulse Oximetry 96 Oxygen Delivery Method Room Air BMI result Body Mass Index 15.5 Labs 04/07/23 23:41 04/07/23 23:41 Imaging Radiology Impressions: ITS Impressions Chest X-Ray 04/10/23 09:25 IMPRESSION: There is bulky-focal very mild linear scar/subsegmental atelectasis in the mid to lower left lung, likely related gaseous distention of the stomach. Chest X-Ray 04/19/23 09:15 IMPRESSION: Question left base infiltrate. Air-filled distended stomach and bowel. Medications Medications Current Medications Acetaminophen (Acetaminophen 325 Mg Tablet) 650 mg PO Q6H PRN PRN Reason: Pain (Scale Score 1-3) Last Admin: 04/19/23 20:57 Dose: 650 mg Acetaminophen (Acetaminophen 325 Mg Tablet) 650 mg PO Q6H PRN PRN Reason: Headache/Pain Mild Scale (1-3) Last Admin: 04/17/23 04:11 Dose: 650 mg Al Hydroxide/Mg Hydroxide (Magnesium Hydrox/Alum Hydrox 30 Ml Oral.Susp) 30 ml PO Q6H PRN PRN Reason: Heartburn/Nausea Divalproex Sodium (Divalproex Sodium 250 Mg Tablet.Dr) 250 mg PO TID [facility] Last Admin: 04/20/23 08:10 Dose: 250 mg Emtricitabine/Tenofovir Alafenamide (Emtricitabine/Tenofov Alafenam Tablet) 1 tab PO DAILY [facility] Last Admin: 04/20/23 08:10 Dose: 1 tab Haloperidol (Haloperidol 1 Mg Tablet) 1 mg PO TID PRN PRN Reason: psychotic agitation Last Admin: 04/20/23 08:11 Dose: 1 mg Haloperidol Decanoate (Haloperidol Decanoate 50 Mg/Ml Ampul) 100 mg IM Q28D [facility] Last Admin: 04/17/23 13:16 Dose: 100 mg Levetiracetam (Levetiracetam 500 Mg Tablet) 500 mg PO BID [facility] Last Admin: 04/20/23 08:10 Dose: 500 mg Lorazepam (Lorazepam 1 Mg Tablet) 2 mg PO Q6H PRN PRN Reason: Anxiety Last Admin: 04/19/23 23:37 Dose: 2 mg Lorazepam (Lorazepam 1 Mg Tablet) 1 mg PO Q4H PRN PRN Reason: anxiety/restlessness Last Admin: 04/20/23 08:12 Dose: 1 mg Magnesium Hydroxide (Milk Of Magnesia 30 Ml Oral.Susp) 30 ml PO DAILY PRN PRN Reason: Constipation Mirtazapine (Mirtazapine 15 Mg Tablet) 15 mg PO BEDTIME [facility] Last Admin: 04/19/23 20:51 Dose: 15 mg Olanzapine (Olanzapine 5 Mg Tablet) 5 mg PO TID PRN PRN Reason: agitation Last Admin: 04/19/23 13:46 Dose: 5 mg Olanzapine (Olanzapine 5 Mg Tablet) 5 mg PO BID@0830,1330 [facility] Last Admin: 04/20/23 08:10 Dose: 5 mg Olanzapine (Olanzapine 10 Mg Tablet) 10 mg PO BEDTIME [facility] Last Admin: 04/19/23 20:50 Dose: 10 mg Polyethylene Glycol (Polyethylene Glycol 3350 17 Gm Powd.Pack) 17 gm PO DAILY PRN PRN Reason: Constipation Rilpivirine (Rilpivirine Hcl 25 Mg Tablet) 25 mg PO DAILY [facility] Last Admin: 04/20/23 08:10 Dose: 25 mg Thiamine HCl (Thiamine Hcl 100 Mg Tablet) 100 mg PO DAILY [facility] Last Admin: 04/20/23 08:10 Dose: 100 mg Trazodone HCl (Trazodone Hcl 25 Mg Halftab) 25 mg PO BEDTIME MRX1 PRN PRN Reason: Insomnia Last Admin: 04/19/23 23:37 Dose: 25 mg Allergies Allergies Allergy/AdvReac Type Severity Reaction Status Date / Time No Known Allergies Allergy Unverified 01/28/20 16:07 [No Known Allergies*] Assessment & Plan Assessment & Plan (1) Dementia: Status: Acute Code(s): F03.90 - Unspecified dementia, unspecified severity, without behavioral disturbance, psychotic disturbance, mood disturbance, and anxiety (2) Schizoaffective disorder, bipolar type: Status: Acute Code(s): F25.0 - Schizoaffective disorder, bipolar type Plan the patient is an elderly male with a past history of schizoaffective disorder and dementia who was brought from his rest home for exacerbation of psychosis, disorganized behavior and inappropriate sexual behavior with exit seeking behavior due to noncompliance for several days with his medications. The patient is unable to provide any more details due to his advanced dementia. 04/13/23- Given Haldol 5 mg, Ativan 2 mg during the night for severe aggressive agitation as Olanzapine was not effective. Today, sedate- change prn's to Haldol 1 mg tid prn and Ativan 0.25 mg tid prn 04/14/23- Agitated. Olanzapine prn has not been effective per team Discontinue Lorazapem 0.25 mg tid prn Increase Depakote to 250 mg bid Consider possibly replacing Keppra with Depakote with further titration if tolerated as it should provide improved mood control. Plan 1. Gather collateral information. 2. We will continue with his medications as per court order. 3. We will refer to Medicine and blood work. 4. Reassessment results. 5. 15 minute checks. 6. We are going to increase Zyprexa to 20 mg p.o. q.h.s. on April 12. On April 16 we are changing Zyprexa 5 mg p.o. b.i.d. and 10 mg p.o. q.h.s. 7. Depakote level and comprehensive metabolic panel for next Saturday. We are reordering for next day but he has refused. We are going to reordered next week when he is more stable. 8. Increase Depakote up to 250 p.o. t.i.d.. Reason for continued inpatient stay Substantial Risk for: inability to function, rapid decompensation and med/psych decompensation Time Spent With Patient Time: Total time managing care of this patient today __20__ minutes.
[2023-04-20 20:23] VITALS: BP 106/60; PULSE 100; RESP 16; TEMP 36.3; O2SAT 96
[2023-04-20] MEDS: LORazepam 1 MG TABLET 2 MG PO (21:06)
[2023-04-20] MEDS: OLANZapine 10 MG TABLET PO (21:06)
[2023-04-20] MEDS: Mirtazapine 15 MG TABLET PO (21:07)
[2023-04-20] MEDS: traZODone HCL 25 MG HALFTAB PO (21:07)
[2023-04-21] MEDS: LORazepam 1 MG TABLET PO (00:03)
[2023-04-21] MEDS: HaloperidoL 1 MG TABLET PO (00:03)
[2023-04-21] MEDS: OLANZapine 5 MG TABLET PO (00:03)
[2023-04-21] MEDS: Thiamine HCL 100 MG TABLET PO (08:02)
--- NOTE | 2023-04-21 09:46 | HO.PSYCHPN ---
Subjective Subjective Date of Service: 04/21/23 Reason For Visit: agressive behavior Subjective Notes: Pedraza Order and Conditional Voluntary Interim History: The nursing staff reported the patient had been verbally abusive, he woke up at 01:00 in the morning and needed p.r.n. medications he watch TV and later on come down. On interview in the morning he was attention seeking denies new symptoms he was nonsensical at times. He had been compliant with medications. Mental Status Exam Mental Status Exam Patient Appearance: Appropriate Patient Orientation: Person and Situation Level of Consciousness: Awake and Inappropriate Patient Behavior: Suspicious and Restless Mood Description: Cheerful and Labile Affect Description: Constricted Patient Cognition Impaired: Yes Ability to Follow Directions: Fair Speech Pattern: Impoverished and Monotone Hallucinations: None Delusions: Paranoid Ideation and Ideas of Reference Thought Process: Racing, Illogical and Distracted Thought Content: positive for [place], positive for Thought Blocking and positive for Disorganized Depressive Symptoms: Increased Irritability Judgement: Poor Diagnostics Vital Signs (24Hr): Vital Signs - 24 hr 04/20/23 20:23 Temperature 97.4 F Pulse Rate 100 Respiratory Rate 16 Blood Pressure 106/60 Pulse Oximetry 96 Oxygen Delivery Method Room Air BMI result Body Mass Index 15.5 Labs 04/07/23 23:41 04/07/23 23:41 Imaging Radiology Impressions: ITS Impressions Chest X-Ray 04/10/23 09:25 IMPRESSION: There is bulky-focal very mild linear scar/subsegmental atelectasis in the mid to lower left lung, likely related gaseous distention of the stomach. Chest X-Ray 04/19/23 09:15 IMPRESSION: Question left base infiltrate. Air-filled distended stomach and bowel. Medications Medications Current Medications Acetaminophen (Acetaminophen 325 Mg Tablet) 650 mg PO Q6H PRN PRN Reason: Pain (Scale Score 1-3) Last Admin: 04/19/23 20:57 Dose: 650 mg Acetaminophen (Acetaminophen 325 Mg Tablet) 650 mg PO Q6H PRN PRN Reason: Headache/Pain Mild Scale (1-3) Last Admin: 04/17/23 04:11 Dose: 650 mg Al Hydroxide/Mg Hydroxide (Magnesium Hydrox/Alum Hydrox 30 Ml Oral.Susp) 30 ml PO Q6H PRN PRN Reason: Heartburn/Nausea Divalproex Sodium (Divalproex Sodium 250 Mg Tablet.Dr) 250 mg PO TID [facility] Last Admin: 04/21/23 08:12 Dose: Not Given Emtricitabine/Tenofovir Alafenamide (Emtricitabine/Tenofov Alafenam Tablet) 1 tab PO DAILY [facility] Last Admin: 04/21/23 08:12 Dose: Not Given Haloperidol (Haloperidol 1 Mg Tablet) 1 mg PO TID PRN PRN Reason: psychotic agitation Last Admin: 04/21/23 00:03 Dose: 1 mg Haloperidol Decanoate (Haloperidol Decanoate 50 Mg/Ml Ampul) 100 mg IM Q28D [facility] Last Admin: 04/17/23 13:16 Dose: 100 mg Levetiracetam (Levetiracetam 500 Mg Tablet) 500 mg PO BID [facility] Last Admin: 04/21/23 08:12 Dose: Not Given Lorazepam (Lorazepam 1 Mg Tablet) 2 mg PO Q6H PRN PRN Reason: Anxiety Last Admin: 04/20/23 21:06 Dose: 2 mg Lorazepam (Lorazepam 1 Mg Tablet) 1 mg PO Q4H PRN PRN Reason: anxiety/restlessness Last Admin: 04/21/23 00:03 Dose: 1 mg Magnesium Hydroxide (Milk Of Magnesia 30 Ml Oral.Susp) 30 ml PO DAILY PRN PRN Reason: Constipation Mirtazapine (Mirtazapine 15 Mg Tablet) 15 mg PO BEDTIME [facility] Last Admin: 04/20/23 21:07 Dose: 15 mg Olanzapine (Olanzapine 5 Mg Tablet) 5 mg PO TID PRN PRN Reason: agitation Last Admin: 04/21/23 00:03 Dose: 5 mg Olanzapine (Olanzapine 5 Mg Tablet) 5 mg PO BID@0830,1330 [facility] Last Admin: 04/21/23 08:11 Dose: Not Given Olanzapine (Olanzapine 10 Mg Tablet) 10 mg PO BEDTIME [facility] Last Admin: 04/20/23 21:06 Dose: 10 mg Polyethylene Glycol (Polyethylene Glycol 3350 17 Gm Powd.Pack) 17 gm PO DAILY PRN PRN Reason: Constipation Rilpivirine (Rilpivirine Hcl 25 Mg Tablet) 25 mg PO DAILY [facility] Last Admin: 04/21/23 08:12 Dose: Not Given Thiamine HCl (Thiamine Hcl 100 Mg Tablet) 100 mg PO DAILY [facility] Last Admin: 04/21/23 08:02 Dose: 100 mg Trazodone HCl (Trazodone Hcl 25 Mg Halftab) 25 mg PO BEDTIME MRX1 PRN PRN Reason: Insomnia Last Admin: 04/20/23 21:07 Dose: 25 mg Allergies Allergies Allergy/AdvReac Type Severity Reaction Status Date / Time No Known Allergies Allergy Unverified 01/28/20 16:07 [No Known Allergies*] Assessment & Plan Assessment & Plan (1) Dementia: Status: Acute Code(s): F03.90 - Unspecified dementia, unspecified severity, without behavioral disturbance, psychotic disturbance, mood disturbance, and anxiety (2) Schizoaffective disorder, bipolar type: Status: Acute Code(s): F25.0 - Schizoaffective disorder, bipolar type Plan the patient is an elderly male with a past history of schizoaffective disorder and dementia who was brought from his rest home for exacerbation of psychosis, disorganized behavior and inappropriate sexual behavior with exit seeking behavior due to noncompliance for several days with his medications. The patient is unable to provide any more details due to his advanced dementia. 04/13/23- Given Haldol 5 mg, Ativan 2 mg during the night for severe aggressive agitation as Olanzapine was not effective. Today, sedate- change prn's to Haldol 1 mg tid prn and Ativan 0.25 mg tid prn 04/14/23- Agitated. Olanzapine prn has not been effective per team Discontinue Lorazapem 0.25 mg tid prn Increase Depakote to 250 mg bid Consider possibly replacing Keppra with Depakote with further titration if tolerated as it should provide improved mood control. Plan 1. Gather collateral information. 2. We will continue with his medications as per court order. 3. We will refer to Medicine and blood work. 4. Reassessment results. 5. 15 minute checks. 6. We are going to increase Zyprexa to 20 mg p.o. q.h.s. on April 12. On April 16 we are changing Zyprexa 5 mg p.o. b.i.d. and 10 mg p.o. q.h.s. 7. Depakote level and comprehensive metabolic panel for next Saturday. We are reordering for next day but he has refused. We are going to reordered next week when he is more stable. 8. Increase Depakote up to 250 p.o. t.i.d.. Reason for continued inpatient stay Substantial Risk for: inability to function, rapid decompensation and med/psych decompensation Time Spent With Patient Time: Total time managing care of this patient today __20__ minutes.
[2023-04-21 18:00] VITALS: BP 116/81; PULSE 99; RESP 18; TEMP 36; O2SAT 98
[2023-04-21] MEDS: Divalproex Sodium 250 MG TABLET.DR PO (21:35)
[2023-04-21] MEDS: Mirtazapine 15 MG TABLET PO (21:37)
[2023-04-21] MEDS: levETIRAcetam 500 MG TABLET PO (21:37)
[2023-04-21] MEDS: OLANZapine 10 MG VIAL IM (23:01)
[2023-04-21] MEDS: LORazepam 2 MG/ML VIAL IM (23:02)
--- NOTE | 2023-04-21 23:18 | PM.EVENT ---
Event Note Date of Service: 04/21/23 Event Note: Called to evaluate patient who had to be chemically restrained on the unit. He was reportedly agitated and shouting racial slurs in the hallway and, to calm him down, he received 2 mg IM Ativan and 10 mg IM Zyprexa. When I saw him, he was calm in bed. Able to speak though not comprehensible. Plan - check vital signs - continue to closely monitor on the unit Time Spent With Patient Time: Total time managing care of this patient today ____ minutes.
--- NOTE | 2023-04-21 23:31 | PC.NURSE ---
Pt was in physical hold for 2 minutes, 2223 to 2225 on 04/21/23. Pt was given IM Zyprexa 10mg and IM Ativan 2mg. Pt had been spitting out medications on days and at HS. pt was very deregulated, threatening Pts and staff, yelling racial slurs, making obscene remarks about spouses and children. pt was threatening and posturing to fight but most likely was going to be injured from a fall from being out of control
[2023-04-22] MEDS: OLANZapine 10 MG VIAL IM ×2 (11:05→16:51)
--- NOTE | 2023-04-22 11:07 | PC.NURSE ---
pt refused morning medications, IM zyprexa 10 mg administered in Right gluteus eriberto per jones order.
--- NOTE | 2023-04-22 12:52 | P.PNPSI_ITS ---
Subjective Subjective Date of Service: 04/22/23 Reason For Visit: agressive behavior Subjective Notes: Pedraza Order and Conditional Voluntary Interim History: The patient has been more aggressive today in the morning. The staff could not find the role years order but apparently he was spitting his medication refusing to take his Zyprexa p.o. so we needed to call for a code and put the backup Zyprexa IM. He needed to be held for the injection and a medical restrain as per [facility] was ordered. On interview the patient was slightly sedated still grossly disorganized. We are adding p.r.n. Zyprexa IM as per court order. Mental Status Exam Mental Status Exam Patient Appearance: Unkempt Patient Orientation: Person and Situation Level of Consciousness: Awake Patient Behavior: Guarded and Passive Mood Description: Withdrawn Affect Description: Labile Patient Cognition Impaired: Yes Ability to Follow Directions: Good Speech Pattern: Clear Hallucinations: None Delusions: Paranoid Ideation Thought Process: Distracted Thought Content: positive for [place] Judgement: Poor Diagnostics Vital Signs (24Hr): Vital Signs - 24 hr 04/21/23 18:00 Temperature 96.8 F Pulse Rate 99 Respiratory Rate 18 Blood Pressure 116/81 Pulse Oximetry 98 Oxygen Delivery Method Room Air BMI result Body Mass Index 15.5 Labs 04/07/23 23:41 04/07/23 23:41 Imaging Radiology Impressions: ITS Impressions Chest X-Ray 04/10/23 09:25 IMPRESSION: There is bulky-focal very mild linear scar/subsegmental atelectasis in the mid to lower left lung, likely related gaseous distention of the stomach. Chest X-Ray 04/19/23 09:15 IMPRESSION: Question left base infiltrate. Air-filled distended stomach and bowel. Medications Medications Current Medications Acetaminophen (Acetaminophen 325 Mg Tablet) 650 mg PO Q6H PRN PRN Reason: Pain (Scale Score 1-3) Last Admin: 04/19/23 20:57 Dose: 650 mg Acetaminophen (Acetaminophen 325 Mg Tablet) 650 mg PO Q6H PRN PRN Reason: Headache/Pain Mild Scale (1-3) Last Admin: 04/17/23 04:11 Dose: 650 mg Al Hydroxide/Mg Hydroxide (Magnesium Hydrox/Alum Hydrox 30 Ml Oral.Susp) 30 ml PO Q6H PRN PRN Reason: Heartburn/Nausea Divalproex Sodium (Divalproex Sodium 250 Mg Tablet.Dr) 250 mg PO TID [facility] Last Admin: 04/22/23 08:49 Dose: Not Given Emtricitabine/Tenofovir Alafenamide (Emtricitabine/Tenofov Alafenam Tablet) 1 tab PO DAILY [facility] Last Admin: 04/22/23 08:49 Dose: Not Given Haloperidol (Haloperidol 1 Mg Tablet) 1 mg PO TID PRN PRN Reason: psychotic agitation Last Admin: 04/21/23 00:03 Dose: 1 mg Haloperidol Decanoate (Haloperidol Decanoate 50 Mg/Ml Ampul) 100 mg IM Q28D [facility] Last Admin: 04/17/23 13:16 Dose: 100 mg Levetiracetam (Levetiracetam 500 Mg Tablet) 500 mg PO BID [facility] Last Admin: 04/22/23 08:49 Dose: Not Given Lorazepam (Lorazepam 1 Mg Tablet) 1 mg PO Q4H PRN PRN Reason: anxiety/restlessness Last Admin: 04/21/23 00:03 Dose: 1 mg Magnesium Hydroxide (Milk Of Magnesia 30 Ml Oral.Susp) 30 ml PO DAILY PRN PRN Reason: Constipation Mirtazapine (Mirtazapine 15 Mg Tablet) 15 mg PO BEDTIME [facility] Last Admin: 04/21/23 21:37 Dose: 15 mg Olanzapine (Olanzapine 5 Mg Tablet) 5 mg PO TID PRN PRN Reason: agitation Last Admin: 04/21/23 00:03 Dose: 5 mg Olanzapine (Olanzapine 5 Mg Tablet) 5 mg PO BID@0830,1330 [facility] Last Admin: 04/22/23 08:49 Dose: Not Given Olanzapine (Olanzapine 10 Mg Tablet) 10 mg PO BEDTIME [facility] Last Admin: 04/21/23 22:05 Dose: Not Given Olanzapine (Olanzapine 10 Mg Vial) 10 mg IM TID PRN PRN Reason: refusal of zyprexa Last Admin: 04/22/23 11:05 Dose: 10 mg Polyethylene Glycol (Polyethylene Glycol 3350 17 Gm Powd.Pack) 17 gm PO DAILY PRN PRN Reason: Constipation Rilpivirine (Rilpivirine Hcl 25 Mg Tablet) 25 mg PO DAILY [facility] Last Admin: 04/22/23 08:49 Dose: Not Given Thiamine HCl (Thiamine Hcl 100 Mg Tablet) 100 mg PO DAILY [facility] Last Admin: 04/22/23 08:49 Dose: Not Given Trazodone HCl (Trazodone Hcl 25 Mg Halftab) 25 mg PO BEDTIME MRX1 PRN PRN Reason: Insomnia Last Admin: 04/20/23 21:07 Dose: 25 mg Allergies Allergies Allergy/AdvReac Type Severity Reaction Status Date / Time No Known Allergies Allergy Unverified 01/28/20 16:07 [No Known Allergies*] Assessment & Plan Assessment & Plan (1) Dementia: Status: Acute Code(s): F03.90 - Unspecified dementia, unspecified severity, without behavioral disturbance, psychotic disturbance, mood disturbance, and anxiety (2) Schizoaffective disorder, bipolar type: Status: Acute Code(s): F25.0 - Schizoaffective disorder, bipolar type Plan the patient is an elderly male with a past history of schizoaffective disorder and dementia who was brought from his rest home for exacerbation of psychosis, disorganized behavior and inappropriate sexual behavior with exit seeking behavior due to noncompliance for several days with his medications. The patient is unable to provide any more details due to his advanced dementia. 04/13/23- Given Haldol 5 mg, Ativan 2 mg during the night for severe aggressive agitation as Olanzapine was not effective. Today, sedate- change prn's to Haldol 1 mg tid prn and Ativan 0.25 mg tid prn 04/14/23- Agitated. Olanzapine prn has not been effective per team Discontinue Lorazapem 0.25 mg tid prn Increase Depakote to 250 mg bid Consider possibly replacing Keppra with Depakote with further titration if tolerated as it should provide improved mood control. Plan 1. Gather collateral information. 2. We will continue with his medications as per court order. 3. We will refer to Medicine and blood work. 4. Reassessment results. 5. 15 minute checks. 6. We are going to increase Zyprexa to 20 mg p.o. q.h.s. on April 12. On April 16 we are changing Zyprexa 5 mg p.o. b.i.d. and 10 mg p.o. q.h.s. 7. Depakote level and comprehensive metabolic panel for next Saturday. We are reordering for next day but he has refused. We are going to reordered next week when he is more stable. 8. Increase Depakote up to 250 p.o. t.i.d.. 9. We are adding the p.r.n. Zyprexa IM as per court order Reason for continued inpatient stay Substantial Risk for: inability to function, rapid decompensation and med/psych decompensation Time Spent With Patient Time: Total time managing care of this patient today _20___ minutes.
[2023-04-22 18:00] VITALS: BP 113/81; PULSE 101; RESP 18; TEMP 36.6; O2SAT 96
[2023-04-22] MEDS: levETIRAcetam 500 MG TABLET PO (20:40)
[2023-04-22] MEDS: traZODone HCL 25 MG HALFTAB PO ×2 (20:41→23:27)
[2023-04-22] MEDS: Mirtazapine 15 MG TABLET PO (20:41)
[2023-04-22] MEDS: Divalproex Sodium 250 MG TABLET.DR PO (20:41)
[2023-04-22] MEDS: OLANZapine 10 MG TABLET PO (20:52)
[2023-04-22] MEDS: HaloperidoL 1 MG TABLET PO (23:27)
[2023-04-22] MEDS: LORazepam 1 MG TABLET PO (23:30)
[2023-04-23] MEDS: OLANZapine 10 MG VIAL IM ×2 (08:49→13:40)
--- NOTE | 2023-04-23 11:46 | HO.PSYCHPN ---
Subjective Subjective Date of Service: 04/23/23 Reason For Visit: agressive behavior Subjective Notes: Pedraza Order and Conditional Voluntary Interim History: The nursing staff reported the patient required intramuscular Zyprexa twice last day since he refused to take his p.o. MI we are in forcing the court order of treatment over objection. He slept 7 hours. Today on interview, he was having his breakfast and he was grossly disorganized, nonsensical at times and irritable. He stated that the food was poisoned, even though he was eating it. We are continue with the same treatment at this point Mental Status Exam Mental Status Exam Patient Appearance: Well Grooomed Patient Orientation: Person Level of Consciousness: Restless Patient Behavior: Guarded and Passive Mood Description: Withdrawn Affect Description: Constricted Patient Cognition Impaired: Yes Ability to Follow Directions: Good Speech Pattern: Clear Hallucinations: Auditory Delusions: Paranoid Ideation and Ideas of Reference Thought Process: Illogical and Slowed Thinking Thought Content: positive for [place] and positive for Poverty of Content Judgement: Poor Diagnostics Vital Signs (24Hr): Vital Signs - 24 hr 04/22/23 18:00 Temperature 97.9 F Pulse Rate 101 H Respiratory Rate 18 Blood Pressure 113/81 Pulse Oximetry 96 Oxygen Delivery Method Room Air BMI result Body Mass Index 15.5 Labs 04/07/23 23:41 04/07/23 23:41 Imaging Radiology Impressions: ITS Impressions Chest X-Ray 04/10/23 09:25 IMPRESSION: There is bulky-focal very mild linear scar/subsegmental atelectasis in the mid to lower left lung, likely related gaseous distention of the stomach. Chest X-Ray 04/19/23 09:15 IMPRESSION: Question left base infiltrate. Air-filled distended stomach and bowel. Medications Medications Current Medications Acetaminophen (Acetaminophen 325 Mg Tablet) 650 mg PO Q6H PRN PRN Reason: Pain (Scale Score 1-3) Last Admin: 04/19/23 20:57 Dose: 650 mg Acetaminophen (Acetaminophen 325 Mg Tablet) 650 mg PO Q6H PRN PRN Reason: Headache/Pain Mild Scale (1-3) Last Admin: 04/17/23 04:11 Dose: 650 mg Al Hydroxide/Mg Hydroxide (Magnesium Hydrox/Alum Hydrox 30 Ml Oral.Susp) 30 ml PO Q6H PRN PRN Reason: Heartburn/Nausea Divalproex Sodium (Divalproex Sodium 250 Mg Tablet.Dr) 250 mg PO TID [facility] Last Admin: 04/23/23 08:31 Dose: Not Given Emtricitabine/Tenofovir Alafenamide (Emtricitabine/Tenofov Alafenam Tablet) 1 tab PO DAILY [facility] Last Admin: 04/23/23 08:32 Dose: Not Given Haloperidol (Haloperidol 1 Mg Tablet) 1 mg PO TID PRN PRN Reason: psychotic agitation Last Admin: 04/22/23 23:27 Dose: 1 mg Haloperidol Decanoate (Haloperidol Decanoate 50 Mg/Ml Ampul) 100 mg IM Q28D [facility] Last Admin: 04/17/23 13:16 Dose: 100 mg Levetiracetam (Levetiracetam 500 Mg Tablet) 500 mg PO BID [facility] Last Admin: 04/23/23 08:32 Dose: Not Given Lorazepam (Lorazepam 1 Mg Tablet) 1 mg PO Q4H PRN PRN Reason: anxiety/restlessness Last Admin: 04/22/23 23:30 Dose: 1 mg Magnesium Hydroxide (Milk Of Magnesia 30 Ml Oral.Susp) 30 ml PO DAILY PRN PRN Reason: Constipation Mirtazapine (Mirtazapine 15 Mg Tablet) 15 mg PO BEDTIME [facility] Last Admin: 04/22/23 20:41 Dose: 15 mg Olanzapine (Olanzapine 5 Mg Tablet) 5 mg PO TID PRN PRN Reason: agitation Last Admin: 04/21/23 00:03 Dose: 5 mg Olanzapine (Olanzapine 5 Mg Tablet) 5 mg PO BID@0830,1330 [facility] Last Admin: 04/23/23 08:31 Dose: Not Given Olanzapine (Olanzapine 10 Mg Tablet) 10 mg PO BEDTIME [facility] Last Admin: 04/22/23 20:52 Dose: 10 mg Olanzapine (Olanzapine 10 Mg Vial) 10 mg IM TID PRN PRN Reason: refusal of zyprexa Last Admin: 04/23/23 08:49 Dose: 10 mg Polyethylene Glycol (Polyethylene Glycol 3350 17 Gm Powd.Pack) 17 gm PO DAILY PRN PRN Reason: Constipation Rilpivirine (Rilpivirine Hcl 25 Mg Tablet) 25 mg PO DAILY [facility] Last Admin: 04/23/23 08:32 Dose: Not Given Thiamine HCl (Thiamine Hcl 100 Mg Tablet) 100 mg PO DAILY [facility] Last Admin: 04/23/23 08:33 Dose: Not Given Trazodone HCl (Trazodone Hcl 25 Mg Halftab) 25 mg PO BEDTIME MRX1 PRN PRN Reason: Insomnia Last Admin: 04/22/23 23:27 Dose: 25 mg Allergies Allergies Allergy/AdvReac Type Severity Reaction Status Date / Time No Known Allergies Allergy Unverified 01/28/20 16:07 [No Known Allergies*] Assessment & Plan Assessment & Plan (1) Dementia: Status: Acute Code(s): F03.90 - Unspecified dementia, unspecified severity, without behavioral disturbance, psychotic disturbance, mood disturbance, and anxiety (2) Schizoaffective disorder, bipolar type: Status: Acute Code(s): F25.0 - Schizoaffective disorder, bipolar type Plan the patient is an elderly male with a past history of schizoaffective disorder and dementia who was brought from his rest home for exacerbation of psychosis, disorganized behavior and inappropriate sexual behavior with exit seeking behavior due to noncompliance for several days with his medications. The patient is unable to provide any more details due to his advanced dementia. 04/13/23- Given Haldol 5 mg, Ativan 2 mg during the night for severe aggressive agitation as Olanzapine was not effective. Today, sedate- change prn's to Haldol 1 mg tid prn and Ativan 0.25 mg tid prn 04/14/23- Agitated. Olanzapine prn has not been effective per team Discontinue Lorazapem 0.25 mg tid prn Increase Depakote to 250 mg bid Consider possibly replacing Keppra with Depakote with further titration if tolerated as it should provide improved mood control. Plan 1. Gather collateral information. 2. We will continue with his medications as per court order. 3. We will refer to Medicine and blood work. 4. Reassessment results. 5. 15 minute checks. 6. We are going to increase Zyprexa to 20 mg p.o. q.h.s. on April 12. On April 16 we are changing Zyprexa 5 mg p.o. b.i.d. and 10 mg p.o. q.h.s. 7. Depakote level and comprehensive metabolic panel for next Saturday. We are reordering for next day but he has refused. We are going to reordered next week when he is more stable. 8. Increase Depakote up to 250 p.o. t.i.d.. 9. We are adding the p.r.n. Zyprexa IM as per court order Reason for continued inpatient stay Substantial Risk for: inability to function, rapid decompensation and med/psych decompensation Time Spent With Patient Time: Total time managing care of this patient today _20___ minutes.
[2023-04-23 18:00] VITALS: BP 133/89; PULSE 92; RESP 18; TEMP 36.8; O2SAT 97
[2023-04-23] MEDS: Divalproex Sodium 250 MG TABLET.DR PO (20:39)
[2023-04-23] MEDS: LORazepam 1 MG TABLET PO (20:39)
[2023-04-23] MEDS: Mirtazapine 15 MG TABLET PO (20:39)
[2023-04-23] MEDS: levETIRAcetam 500 MG TABLET PO (20:39)
[2023-04-23] MEDS: OLANZapine 10 MG TABLET PO (20:39)
[2023-04-23] MEDS: HaloperidoL 1 MG TABLET PO (20:39)
[2023-04-24] MEDS: Milk of Magnesia 30 ML ORAL.SUSP PO (05:23)
[2023-04-24 06:00] VITALS: BP 129/72; PULSE 106; RESP 16; TEMP 36.3; O2SAT 97
[2023-04-24] MEDS: Divalproex Sodium 250 MG TABLET.DR PO ×3 (08:37→21:02)
[2023-04-24] MEDS: Rilpivirine HCL 25 MG TABLET PO (08:37)
[2023-04-24] MEDS: Thiamine HCL 100 MG TABLET PO (08:37)
[2023-04-24] MEDS: OLANZapine 5 MG TABLET PO ×3 (08:37→21:58)
[2023-04-24] MEDS: Emtricitabine/Tenofov Alafenam TABLET 1 TAB PO (08:37)
[2023-04-24] MEDS: levETIRAcetam 500 MG TABLET PO ×2 (08:37→21:02)
[2023-04-24] MEDS: LORazepam 1 MG TABLET PO (09:44)
[2023-04-24] MEDS: HaloperidoL 1 MG TABLET PO ×2 (09:44→21:58)
--- NOTE | 2023-04-24 17:26 | P.PNPSI_ITS ---
Subjective Subjective Date of Service: 04/24/23 Reason For Visit: agressive behavior Interim History: Met with patient; discussed with team Patient remains delusional and can still get agitated but staff reports he seems to be coming down more. Taking his medications. On approach patient said he wanted to talk to screenplay writer, wanted to know why he was transferred to this hospital since he was real listing [facility] the [employer] in the [place] Mental Status Exam Mental Status Exam Patient Appearance: Well Grooomed Patient Orientation: Person Level of Consciousness: Restless Patient Behavior: Guarded and Passive Mood Description: Withdrawn Affect Description: Constricted Patient Cognition Impaired: Yes Ability to Follow Directions: Good Speech Pattern: Clear Hallucinations: Auditory Delusions: Paranoid Ideation and Ideas of Reference Thought Process: Illogical and Slowed Thinking Thought Content: positive for [place] and positive for Poverty of Content Judgement: Poor Diagnostics Vital Signs (24Hr): Vital Signs - 24 hr 04/23/23 18:00 04/24/23 06:00 Temperature 98.2 F 97.4 F Pulse Rate 92 106 H Respiratory Rate 18 16 Blood Pressure 133/89 129/72 Pulse Oximetry 97 97 Oxygen Delivery Method Room Air Room Air BMI result Body Mass Index 15.5 Labs 04/07/23 23:41 04/07/23 23:41 Imaging Radiology Impressions: ITS Impressions Chest X-Ray 04/10/23 09:25 IMPRESSION: There is bulky-focal very mild linear scar/subsegmental atelectasis in the mid to lower left lung, likely related gaseous distention of the stomach. Chest X-Ray 04/19/23 09:15 IMPRESSION: Question left base infiltrate. Air-filled distended stomach and bowel. Medications Medications Current Medications Acetaminophen (Acetaminophen 325 Mg Tablet) 650 mg PO Q6H PRN PRN Reason: Pain (Scale Score 1-3) Last Admin: 04/19/23 20:57 Dose: 650 mg Acetaminophen (Acetaminophen 325 Mg Tablet) 650 mg PO Q6H PRN PRN Reason: Headache/Pain Mild Scale (1-3) Last Admin: 04/17/23 04:11 Dose: 650 mg Al Hydroxide/Mg Hydroxide (Magnesium Hydrox/Alum Hydrox 30 Ml Oral.Susp) 30 ml PO Q6H PRN PRN Reason: Heartburn/Nausea Divalproex Sodium (Divalproex Sodium 250 Mg Tablet.Dr) 250 mg PO TID [facility] Last Admin: 04/24/23 15:08 Dose: 250 mg Emtricitabine/Tenofovir Alafenamide (Emtricitabine/Tenofov Alafenam Tablet) 1 tab PO DAILY [facility] Last Admin: 04/24/23 08:37 Dose: 1 tab Haloperidol (Haloperidol 1 Mg Tablet) 1 mg PO TID PRN PRN Reason: psychotic agitation Last Admin: 04/24/23 09:44 Dose: 1 mg Haloperidol Decanoate (Haloperidol Decanoate 50 Mg/Ml Ampul) 100 mg IM Q28D [facility] Last Admin: 04/17/23 13:16 Dose: 100 mg Levetiracetam (Levetiracetam 500 Mg Tablet) 500 mg PO BID [facility] Last Admin: 04/24/23 08:37 Dose: 500 mg Magnesium Hydroxide (Milk Of Magnesia 30 Ml Oral.Susp) 30 ml PO DAILY PRN PRN Reason: Constipation Last Admin: 04/24/23 05:23 Dose: 30 ml Mirtazapine (Mirtazapine 15 Mg Tablet) 15 mg PO BEDTIME [facility] Last Admin: 04/23/23 20:39 Dose: 15 mg Olanzapine (Olanzapine 5 Mg Tablet) 5 mg PO TID PRN PRN Reason: agitation Last Admin: 04/21/23 00:03 Dose: 5 mg Olanzapine (Olanzapine 5 Mg Tablet) 5 mg PO BID@0830,1330 [facility] Last Admin: 04/24/23 15:08 Dose: 5 mg Olanzapine (Olanzapine 10 Mg Tablet) 10 mg PO BEDTIME [facility] Last Admin: 04/23/23 20:39 Dose: 10 mg Olanzapine (Olanzapine 10 Mg Vial) 10 mg IM TID PRN PRN Reason: refusal of zyprexa Last Admin: 04/23/23 13:40 Dose: 10 mg Polyethylene Glycol (Polyethylene Glycol 3350 17 Gm Powd.Pack) 17 gm PO DAILY PRN PRN Reason: Constipation Rilpivirine (Rilpivirine Hcl 25 Mg Tablet) 25 mg PO DAILY [facility] Last Admin: 04/24/23 08:37 Dose: 25 mg Thiamine HCl (Thiamine Hcl 100 Mg Tablet) 100 mg PO DAILY [facility] Last Admin: 04/24/23 08:37 Dose: 100 mg Trazodone HCl (Trazodone Hcl 25 Mg Halftab) 25 mg PO BEDTIME MRX1 PRN PRN Reason: Insomnia Last Admin: 04/22/23 23:27 Dose: 25 mg Allergies Allergies Allergy/AdvReac Type Severity Reaction Status Date / Time No Known Allergies Allergy Unverified 01/28/20 16:07 [No Known Allergies*] Assessment & Plan Assessment & Plan (1) Dementia: Status: Acute Code(s): F03.90 - Unspecified dementia, unspecified severity, without behavioral disturbance, psychotic disturbance, mood disturbance, and anxiety (2) Schizoaffective disorder, bipolar type: Status: Acute Code(s): F25.0 - Schizoaffective disorder, bipolar type Plan the patient is an elderly male with a past history of schizoaffective disorder and dementia who was brought from his rest home for exacerbation of psychosis, disorganized behavior and inappropriate sexual behavior with exit seeking behavior due to noncompliance for several days with his medications. The patient is unable to provide any more details due to his advanced dementia. 04/13/23- Given Haldol 5 mg, Ativan 2 mg during the night for severe aggressive agitation as Olanzapine was not effective. Today, sedate- change prn's to Haldol 1 mg tid prn and Ativan 0.25 mg tid prn 04/14/23- Agitated. Olanzapine prn has not been effective per team Discontinue Lorazapem 0.25 mg tid prn Increase Depakote to 250 mg bid Consider possibly replacing Keppra with Depakote with further titration if tolerated as it should provide improved mood control. 04/24 Patient remains delusional and can still get agitated but staff reports he seems to be coming down more. Taking his medications. On approach patient said he wanted to talk to screenplay writer, wanted to know why he was transferred to this hospital since he was real listing in the [employer] in the [place] Plan 1. Gather collateral information. 2. We will continue with his medications as per court order. 3. We will refer to Medicine and blood work. 4. Reassessment results. 5. 15 minute checks. 6. We are going to increase Zyprexa to 20 mg p.o. q.h.s. on April 12. On April 16 we are changing Zyprexa 5 mg p.o. b.i.d. and 10 mg p.o. q.h.s. 7. Depakote level and comprehensive metabolic panel for next Saturday. We are reordering for next day but he has refused. We are going to reordered next week when he is more stable. 8. Increase Depakote up to 250 p.o. t.i.d.. 9. We are adding the p.r.n. Zyprexa IM as per court order Patient educated on: diagnosis Informed Consent: does not understand Reason for continued inpatient stay Substantial Risk for: inability to function Time Spent With Patient Time: Total time managing care of this patient today ____ minutes.
[2023-04-24] MEDS: OLANZapine 10 MG TABLET PO (21:00)
[2023-04-24] MEDS: Mirtazapine 15 MG TABLET PO (21:01)
[2023-04-24] MEDS: traZODone HCL 25 MG HALFTAB PO ×2 (21:01→22:07)
[2023-04-25 06:00] VITALS: BP 137/79; PULSE 98; RESP 16; TEMP 35.8; O2SAT 96
[2023-04-25] MEDS: OLANZapine 5 MG TABLET PO ×3 (06:17→12:45)
[2023-04-25] MEDS: OLANZapine 10 MG VIAL IM ×2 (08:09→21:17)
[2023-04-25] MEDS: HaloperidoL 1 MG TABLET 2 MG PO (10:18)
--- NOTE | 2023-04-25 15:23 | P.PNPSI_ITS ---
Subjective Subjective Date of Service: 04/25/23 Reason For Visit: agressive behavior Subjective Notes: Pedraza Order and Conditional Voluntary Interim History: The nursing staff reported the patient has not attend to any groups, he slept 3 hours and he needed IM Zyprexa back of since he refused to take medications. Today he was sedated, dysphoric, disorganized. We decided to increase his Haldol to 2 mg p.o. b.i.d.. Mental Status Exam Mental Status Exam Patient Appearance: Appropriate and Unkempt Patient Orientation: Person and Situation Level of Consciousness: Awake and Appropriate Patient Behavior: Guarded and Passive Mood Description: Withdrawn Affect Description: Labile Patient Cognition Impaired: Yes Ability to Follow Directions: Good Speech Pattern: Clear Hallucinations: None Delusions: Not Present Thought Process: Distracted Thought Content: positive for [place] and positive for [place] Judgement: Fair Diagnostics Vital Signs (24Hr): Vital Signs - 24 hr 04/25/23 06:00 Temperature 96.5 F L Pulse Rate 98 Respiratory Rate 16 Blood Pressure 137/79 Pulse Oximetry 96 Oxygen Delivery Method Room Air BMI result Body Mass Index 15.5 Labs 04/07/23 23:41 04/07/23 23:41 Imaging Radiology Impressions: ITS Impressions Chest X-Ray 04/10/23 09:25 IMPRESSION: There is bulky-focal very mild linear scar/subsegmental atelectasis in the mid to lower left lung, likely related gaseous distention of the stomach. Chest X-Ray 04/19/23 09:15 IMPRESSION: Question left base infiltrate. Air-filled distended stomach and bowel. Medications Medications Current Medications Acetaminophen (Acetaminophen 325 Mg Tablet) 650 mg PO Q6H PRN PRN Reason: Pain (Scale Score 1-3) Last Admin: 04/19/23 20:57 Dose: 650 mg Acetaminophen (Acetaminophen 325 Mg Tablet) 650 mg PO Q6H PRN PRN Reason: Headache/Pain Mild Scale (1-3) Last Admin: 04/17/23 04:11 Dose: 650 mg Al Hydroxide/Mg Hydroxide (Magnesium Hydrox/Alum Hydrox 30 Ml Oral.Susp) 30 ml PO Q6H PRN PRN Reason: Heartburn/Nausea Divalproex Sodium (Divalproex Sodium 250 Mg Tablet.Dr) 250 mg PO TID [facility] Last Admin: 04/25/23 08:09 Dose: Not Given Emtricitabine/Tenofovir Alafenamide (Emtricitabine/Tenofov Alafenam Tablet) 1 tab PO DAILY [facility] Last Admin: 04/25/23 08:09 Dose: Not Given Haloperidol (Haloperidol 1 Mg Tablet) 1 mg PO TID PRN PRN Reason: psychotic agitation Last Admin: 04/24/23 21:58 Dose: 1 mg Haloperidol (Haloperidol 1 Mg Tablet) 2 mg PO BID [facility] Last Admin: 04/25/23 10:18 Dose: 2 mg Haloperidol Decanoate (Haloperidol Decanoate 50 Mg/Ml Ampul) 100 mg IM Q28D [facility] Last Admin: 04/17/23 13:16 Dose: 100 mg Levetiracetam (Levetiracetam 500 Mg Tablet) 500 mg PO BID [facility] Last Admin: 04/25/23 08:09 Dose: Not Given Magnesium Hydroxide (Milk Of Magnesia 30 Ml Oral.Susp) 30 ml PO DAILY PRN PRN Reason: Constipation Last Admin: 04/24/23 05:23 Dose: 30 ml Mirtazapine (Mirtazapine 15 Mg Tablet) 15 mg PO BEDTIME [facility] Last Admin: 04/24/23 21:01 Dose: 15 mg Olanzapine (Olanzapine 5 Mg Tablet) 5 mg PO TID PRN PRN Reason: agitation Last Admin: 04/25/23 10:19 Dose: 5 mg Olanzapine (Olanzapine 5 Mg Tablet) 5 mg PO BID@0830,1330 [facility] Last Admin: 04/25/23 12:45 Dose: 5 mg Olanzapine (Olanzapine 10 Mg Tablet) 10 mg PO BEDTIME [facility] Last Admin: 04/24/23 21:00 Dose: 10 mg Olanzapine (Olanzapine 10 Mg Vial) 10 mg IM TID PRN PRN Reason: refusal of zyprexa Last Admin: 04/25/23 08:09 Dose: 10 mg Polyethylene Glycol (Polyethylene Glycol 3350 17 Gm Powd.Pack) 17 gm PO DAILY PRN PRN Reason: Constipation Rilpivirine (Rilpivirine Hcl 25 Mg Tablet) 25 mg PO DAILY [facility] Last Admin: 04/25/23 08:09 Dose: Not Given Thiamine HCl (Thiamine Hcl 100 Mg Tablet) 100 mg PO DAILY [facility] Last Admin: 04/25/23 08:08 Dose: Not Given Trazodone HCl (Trazodone Hcl 25 Mg Halftab) 25 mg PO BEDTIME MRX1 PRN PRN Reason: Insomnia Last Admin: 04/24/23 22:07 Dose: 25 mg Allergies Allergies Allergy/AdvReac Type Severity Reaction Status Date / Time No Known Allergies Allergy Unverified 01/28/20 16:07 [No Known Allergies*] Assessment & Plan Assessment & Plan (1) Dementia: Status: Acute Code(s): F03.90 - Unspecified dementia, unspecified severity, without behavioral disturbance, psychotic disturbance, mood disturbance, and anxiety (2) Schizoaffective disorder, bipolar type: Status: Acute Code(s): F25.0 - Schizoaffective disorder, bipolar type Plan the patient is an elderly male with a past history of schizoaffective disorder and dementia who was brought from his rest home for exacerbation of psychosis, disorganized behavior and inappropriate sexual behavior with exit seeking behavior due to noncompliance for several days with his medications. The patient is unable to provide any more details due to his advanced dementia. 04/13/23- Given Haldol 5 mg, Ativan 2 mg during the night for severe aggressive agitation as Olanzapine was not effective. Today, sedate- change prn's to Haldol 1 mg tid prn and Ativan 0.25 mg tid prn 04/14/23- Agitated. Olanzapine prn has not been effective per team Discontinue Lorazapem 0.25 mg tid prn Increase Depakote to 250 mg bid Consider possibly replacing Keppra with Depakote with further titration if tolerated as it should provide improved mood control. 04/24 Patient remains delusional and can still get agitated but staff reports he seems to be coming down more. Taking his medications. On approach patient said he wanted to talk to lyric writer, wanted to know why he was transferred to this hospital since he was real listing in the [employer] in the [place] Plan 1. Gather collateral information. 2. We will continue with his medications as per court order. 3. We will refer to Medicine and blood work. 4. Reassessment results. 5. 15 minute checks. 6. We are going to increase Zyprexa to 20 mg p.o. q.h.s. on April 12. On April 16 we are changing Zyprexa 5 mg p.o. b.i.d. and 10 mg p.o. q.h.s. 7. Depakote level and comprehensive metabolic panel for next Saturday. We are reordering for next day but he has refused. We are going to reordered next week when he is more stable. 8. Increase Depakote up to 250 p.o. t.i.d.. 9. We are adding the p.r.n. Zyprexa IM as per court order. 10. Increase Haldol up to 2 mg p.o. t.i.d. on top of his Haldol Decanoate. Reason for continued inpatient stay Substantial Risk for: inability to function, rapid decompensation and med/psych decompensation Time Spent With Patient Time: Total time managing care of this patient today _20___ minutes.
--- NOTE | 2023-04-26 08:15 | HO.PSYCHPN ---
Subjective Subjective Date of Service: 04/26/23 Reason For Visit: agressive behavior Subjective Notes: [place] Order and Conditional Voluntary Interim History: The nursing staff reported the patient had been disorganized, inappropriate he refused his p.o. medication he uses Zyprexa IM last night. He slept 5 hours and he has been talking to himself. On interview the patient remains disheveled, grossly disorganized and psychotic. Apparently, the patient was fairly stable but in the last year he was admitted medically twice and he is antipsychotics were stopped and since then he has not been back to his baseline. Mental Status Exam Mental Status Exam Patient Appearance: Unkempt Patient Orientation: Person Level of Consciousness: Disoriented and Restless Patient Behavior: Posturing and Restless Mood Description: Labile Affect Description: Blunted Patient Cognition Impaired: Yes Ability to Follow Directions: Good Speech Pattern: Impoverished Hallucinations: Auditory Delusions: Paranoid Ideation and Ideas of Reference Thought Process: Incoherent, Illogical, Distracted and Slowed Thinking Thought Content: positive for [place] and positive for Poverty of Content Judgement: Poor Diagnostics Vital Signs (24Hr): BMI result Body Mass Index 15.5 Labs 04/07/23 23:41 04/07/23 23:41 Imaging Radiology Impressions: ITS Impressions Chest X-Ray 04/10/23 09:25 IMPRESSION: There is bulky-focal very mild linear scar/subsegmental atelectasis in the mid to lower left lung, likely related gaseous distention of the stomach. Chest X-Ray 04/19/23 09:15 IMPRESSION: Question left base infiltrate. Air-filled distended stomach and bowel. Medications Medications Current Medications Acetaminophen (Acetaminophen 325 Mg Tablet) 650 mg PO Q6H PRN PRN Reason: Pain (Scale Score 1-3) Last Admin: 04/19/23 20:57 Dose: 650 mg Acetaminophen (Acetaminophen 325 Mg Tablet) 650 mg PO Q6H PRN PRN Reason: Headache/Pain Mild Scale (1-3) Last Admin: 04/17/23 04:11 Dose: 650 mg Al Hydroxide/Mg Hydroxide (Magnesium Hydrox/Alum Hydrox 30 Ml Oral.Susp) 30 ml PO Q6H PRN PRN Reason: Heartburn/Nausea Divalproex Sodium (Divalproex Sodium 250 Mg Tablet.Dr) 250 mg PO TID [facility] Last Admin: 04/25/23 22:10 Dose: Not Given Emtricitabine/Tenofovir Alafenamide (Emtricitabine/Tenofov Alafenam Tablet) 1 tab PO DAILY [facility] Last Admin: 04/25/23 08:09 Dose: Not Given Haloperidol (Haloperidol 1 Mg Tablet) 1 mg PO TID PRN PRN Reason: psychotic agitation Last Admin: 04/24/23 21:58 Dose: 1 mg Haloperidol (Haloperidol 1 Mg Tablet) 2 mg PO BID [facility] Last Admin: 04/25/23 22:10 Dose: Not Given Haloperidol Decanoate (Haloperidol Decanoate 50 Mg/Ml Ampul) 100 mg IM Q28D [facility] Last Admin: 04/17/23 13:16 Dose: 100 mg Levetiracetam (Levetiracetam 500 Mg Tablet) 500 mg PO BID [facility] Last Admin: 04/25/23 22:11 Dose: Not Given Magnesium Hydroxide (Milk Of Magnesia 30 Ml Oral.Susp) 30 ml PO DAILY PRN PRN Reason: Constipation Last Admin: 04/24/23 05:23 Dose: 30 ml Mirtazapine (Mirtazapine 15 Mg Tablet) 15 mg PO BEDTIME [facility] Last Admin: 04/25/23 22:11 Dose: Not Given Olanzapine (Olanzapine 5 Mg Tablet) 5 mg PO TID PRN PRN Reason: agitation Last Admin: 04/25/23 10:19 Dose: 5 mg Olanzapine (Olanzapine 5 Mg Tablet) 5 mg PO BID@0830,1330 [facility] Last Admin: 04/25/23 12:45 Dose: 5 mg Olanzapine (Olanzapine 10 Mg Tablet) 10 mg PO BEDTIME [facility] Last Admin: 04/25/23 22:11 Dose: Not Given Olanzapine (Olanzapine 10 Mg Vial) 10 mg IM TID PRN PRN Reason: refusal of zyprexa Last Admin: 04/25/23 21:17 Dose: 10 mg Polyethylene Glycol (Polyethylene Glycol 3350 17 Gm Powd.Pack) 17 gm PO DAILY PRN PRN Reason: Constipation Rilpivirine (Rilpivirine Hcl 25 Mg Tablet) 25 mg PO DAILY [facility] Last Admin: 04/25/23 08:09 Dose: Not Given Thiamine HCl (Thiamine Hcl 100 Mg Tablet) 100 mg PO DAILY [facility] Last Admin: 04/25/23 08:08 Dose: Not Given Trazodone HCl (Trazodone Hcl 25 Mg Halftab) 25 mg PO BEDTIME MRX1 PRN PRN Reason: Insomnia Last Admin: 04/24/23 22:07 Dose: 25 mg Allergies Allergies Allergy/AdvReac Type Severity Reaction Status Date / Time No Known Allergies Allergy Unverified 01/28/20 16:07 [No Known Allergies*] Assessment & Plan Assessment & Plan (1) Dementia: Status: Acute Code(s): F03.90 - Unspecified dementia, unspecified severity, without behavioral disturbance, psychotic disturbance, mood disturbance, and anxiety (2) Schizoaffective disorder, bipolar type: Status: Acute Code(s): F25.0 - Schizoaffective disorder, bipolar type Plan the patient is an elderly male with a past history of schizoaffective disorder and dementia who was brought from his rest home for exacerbation of psychosis, disorganized behavior and inappropriate sexual behavior with exit seeking behavior due to noncompliance for several days with his medications. The patient is unable to provide any more details due to his advanced dementia. 04/13/23- Given Haldol 5 mg, Ativan 2 mg during the night for severe aggressive agitation as Olanzapine was not effective. Today, sedate- change prn's to Haldol 1 mg tid prn and Ativan 0.25 mg tid prn 04/14/23- Agitated. Olanzapine prn has not been effective per team Discontinue Lorazapem 0.25 mg tid prn Increase Depakote to 250 mg bid Consider possibly replacing Keppra with Depakote with further titration if tolerated as it should provide improved mood control. 04/24 Patient remains delusional and can still get agitated but staff reports he seems to be coming down more. Taking his medications. On approach patient said he wanted to talk to insurance writer, wanted to know why he was transferred to this hospital since he was real listing [facility] the [employer] in the [place] Plan 1. Gather collateral information. 2. We will continue with his medications as per court order. 3. We will refer to Medicine and blood work. 4. Reassessment results. 5. 15 minute checks. 6. We are going to increase Zyprexa to 20 mg p.o. q.h.s. on April 12. On April 16 we are changing Zyprexa 5 mg p.o. b.i.d. and 10 mg p.o. q.h.s. 7. Depakote level and comprehensive metabolic panel for next Saturday. We are reordering for next day but he has refused. We are going to reordered next week when he is more stable. 8. Increase Depakote up to 250 p.o. t.i.d.. 9. We are adding the p.r.n. Zyprexa IM as per court order. 10. Increase Haldol up to 2 mg p.o. t.i.d. on top of his Haldol Decanoate. Reason for continued inpatient stay Substantial Risk for: inability to function, rapid decompensation and med/psych decompensation Time Spent With Patient Time: Total time managing care of this patient today __20__ minutes.
[2023-04-26] MEDS: OLANZapine 10 MG VIAL IM (09:05)
[2023-04-26] MEDS: OLANZapine 5 MG TABLET PO ×2 (13:08→23:22)
--- NOTE | 2023-04-26 13:49 | MHC.CLN ---
F/U DIET=REGULAR. MAGIC CUP ADDED BID TO INCREASE CALORIC INTAKE. PROVIDES 580 KCALS, 18 G PROTEIN. VARIABLE INTAKE. DID NOT ACCEPT BREAKFAST OR LUNCH TODAY. FOLLOW FOR WEIGHT AND INTAKE. ENCOURAGE INTAKE ABLE. RD TO FOLLOW UP WEEKLY.
[2023-04-26 18:00] VITALS: BP 140/74; PULSE 119; RESP 18; TEMP 37.1; O2SAT 100
[2023-04-26] MEDS: traZODone HCL 25 MG HALFTAB PO ×2 (20:45→23:22)
[2023-04-26] MEDS: HaloperidoL 1 MG TABLET 2 MG PO (20:45)
[2023-04-26] MEDS: levETIRAcetam 500 MG TABLET PO (20:45)
[2023-04-26] MEDS: Mirtazapine 15 MG TABLET PO (20:45)
[2023-04-26] MEDS: Divalproex Sodium 250 MG TABLET.DR PO (20:45)
[2023-04-26] MEDS: OLANZapine 10 MG TABLET PO (20:45)
[2023-04-26] MEDS: Acetaminophen 325 MG TABLET 650 MG PO (23:21)
[2023-04-26] MEDS: HaloperidoL 1 MG TABLET PO (23:22)
[2023-04-27] MEDS: LORazepam 1 MG TABLET PO (02:48)
[2023-04-27] MEDS: OLANZapine 5 MG TABLET PO (09:44)
[2023-04-27] MEDS: Thiamine HCL 100 MG TABLET PO (09:44)
[2023-04-27] MEDS: HaloperidoL 1 MG TABLET 2 MG PO (09:44)
[2023-04-27] MEDS: Rilpivirine HCL 25 MG TABLET PO (09:45)
[2023-04-27] MEDS: levETIRAcetam 500 MG TABLET PO (09:45)
[2023-04-27] MEDS: Emtricitabine/Tenofov Alafenam TABLET 1 TAB PO (09:45)
[2023-04-27] MEDS: Divalproex Sodium 250 MG TABLET.DR PO (09:45)
--- NOTE | 2023-04-27 14:52 | P.PNPSI_ITS ---
Subjective Subjective Date of Service: 04/27/23 Reason For Visit: agressive behavior Interim History: Met with patient; discussed with team On approach patient eating; typewriter assembler tried to engage however patient would not answer questions. Staff reports that patient has been sleeping most of the day but that he slept only little bit last night. He has been otherwise on the quiet side, sometimes wondered her on the schaffer. No behavioral incidents; taking medications Mental Status Exam Mental Status Exam Patient Appearance: Unkempt Patient Orientation: Person Level of Consciousness: Awake Patient Behavior: Guarded, Wandering and Poor Eye Contact Mood Description: Labile Affect Description: Constricted Patient Cognition Impaired: Yes Ability to Follow Directions: Good Speech Pattern: Impoverished Hallucinations: Auditory Delusions: Paranoid Ideation and Ideas of Reference Thought Process: Incoherent, Illogical, Distracted and Slowed Thinking Thought Content: positive for [place] and positive for Poverty of Content Judgement: Poor Diagnostics Vital Signs (24Hr): Vital Signs - 24 hr 04/26/23 18:00 Temperature 98.8 F Pulse Rate 119 H Respiratory Rate 18 Blood Pressure 140/74 H Pulse Oximetry 100 Oxygen Delivery Method Room Air BMI result Body Mass Index 15.5 Labs 04/07/23 23:41 04/07/23 23:41 Imaging Radiology Impressions: ITS Impressions Chest X-Ray 04/10/23 09:25 IMPRESSION: There is bulky-focal very mild linear scar/subsegmental atelectasis in the mid to lower left lung, likely related gaseous distention of the stomach. Chest X-Ray 04/19/23 09:15 IMPRESSION: Question left base infiltrate. Air-filled distended stomach and bowel. Medications Medications Current Medications Acetaminophen (Acetaminophen 325 Mg Tablet) 650 mg PO Q6H PRN PRN Reason: Pain (Scale Score 1-3) Last Admin: 04/26/23 23:21 Dose: 650 mg Acetaminophen (Acetaminophen 325 Mg Tablet) 650 mg PO Q6H PRN PRN Reason: Headache/Pain Mild Scale (1-3) Last Admin: 04/17/23 04:11 Dose: 650 mg Al Hydroxide/Mg Hydroxide (Magnesium Hydrox/Alum Hydrox 30 Ml Oral.Susp) 30 ml PO Q6H PRN PRN Reason: Heartburn/Nausea Divalproex Sodium (Divalproex Sodium 250 Mg Tablet.Dr) 250 mg PO TID [facility] Last Admin: 04/27/23 09:45 Dose: 250 mg Emtricitabine/Tenofovir Alafenamide (Emtricitabine/Tenofov Alafenam Tablet) 1 tab PO DAILY [facility] Last Admin: 04/27/23 09:45 Dose: 1 tab Haloperidol (Haloperidol 1 Mg Tablet) 1 mg PO TID PRN PRN Reason: psychotic agitation Last Admin: 04/26/23 23:22 Dose: 1 mg Haloperidol (Haloperidol 1 Mg Tablet) 2 mg PO BID [facility] Last Admin: 04/27/23 09:44 Dose: 2 mg Haloperidol Decanoate (Haloperidol Decanoate 50 Mg/Ml Ampul) 100 mg IM Q28D [facility] Last Admin: 04/17/23 13:16 Dose: 100 mg Levetiracetam (Levetiracetam 500 Mg Tablet) 500 mg PO BID [facility] Last Admin: 04/27/23 09:45 Dose: 500 mg Lorazepam (Lorazepam 1 Mg Tablet) 1 mg PO Q4H PRN PRN Reason: anxiety/agitation Last Admin: 04/27/23 02:48 Dose: 1 mg Magnesium Hydroxide (Milk Of Magnesia 30 Ml Oral.Susp) 30 ml PO DAILY PRN PRN Reason: Constipation Last Admin: 04/24/23 05:23 Dose: 30 ml Mirtazapine (Mirtazapine 15 Mg Tablet) 15 mg PO BEDTIME [facility] Last Admin: 04/26/23 20:45 Dose: 15 mg Olanzapine (Olanzapine 5 Mg Tablet) 5 mg PO TID PRN PRN Reason: agitation Last Admin: 04/26/23 23:22 Dose: 5 mg Olanzapine (Olanzapine 5 Mg Tablet) 5 mg PO BID@0830,1330 [facility] Last Admin: 04/27/23 09:44 Dose: 5 mg Olanzapine (Olanzapine 10 Mg Tablet) 10 mg PO BEDTIME [facility] Last Admin: 04/26/23 20:45 Dose: 10 mg Olanzapine (Olanzapine 10 Mg Vial) 10 mg IM TID PRN PRN Reason: refusal of zyprexa Last Admin: 04/26/23 09:05 Dose: 10 mg Polyethylene Glycol (Polyethylene Glycol 3350 17 Gm Powd.Pack) 17 gm PO DAILY PRN PRN Reason: Constipation Rilpivirine (Rilpivirine Hcl 25 Mg Tablet) 25 mg PO DAILY [facility] Last Admin: 04/27/23 09:45 Dose: 25 mg Thiamine HCl (Thiamine Hcl 100 Mg Tablet) 100 mg PO DAILY [facility] Last Admin: 04/27/23 09:44 Dose: 100 mg Trazodone HCl (Trazodone Hcl 25 Mg Halftab) 25 mg PO BEDTIME MRX1 PRN PRN Reason: Insomnia Last Admin: 04/26/23 23:22 Dose: 25 mg Allergies Allergies Allergy/AdvReac Type Severity Reaction Status Date / Time No Known Allergies Allergy Unverified 01/28/20 16:07 [No Known Allergies*] Assessment & Plan Assessment & Plan (1) Dementia: Status: Acute Code(s): F03.90 - Unspecified dementia, unspecified severity, without behavioral disturbance, psychotic disturbance, mood disturbance, and anxiety (2) Schizoaffective disorder, bipolar type: Status: Acute Code(s): F25.0 - Schizoaffective disorder, bipolar type Plan the patient is an elderly male with a past history of schizoaffective disorder and dementia who was brought from his rest home for exacerbation of psychosis, disorganized behavior and inappropriate sexual behavior with exit seeking behavior due to noncompliance for several days with his medications. The patient is unable to provide any more details due to his advanced dementia. 04/13/23- Given Haldol 5 mg, Ativan 2 mg during the night for severe aggressive agitation as Olanzapine was not effective. Today, sedate- change prn's to Haldol 1 mg tid prn and Ativan 0.25 mg tid prn 04/14/23- Agitated. Olanzapine prn has not been effective per team Discontinue Lorazapem 0.25 mg tid prn Increase Depakote to 250 mg bid Consider possibly replacing Keppra with Depakote with further titration if tolerated as it should provide improved mood control. 04/24 Patient remains delusional and can still get agitated but staff reports he seems to be coming down more. Taking his medications. On approach patient said he wanted to talk to typewriter assembler, wanted to know why he was transferred to this hospital since he was real listing [facility] the [employer] in the [place] 04/27 continue current treatment plan Plan 1. Gather collateral information. 2. We will continue with his medications as per court order. 3. We will refer to Medicine and blood work. 4. Reassessment results. 5. 15 minute checks. 6. We are going to increase Zyprexa to 20 mg p.o. q.h.s. on April 12. On April 16 we are changing Zyprexa 5 mg p.o. b.i.d. and 10 mg p.o. q.h.s. 7. Depakote level and comprehensive metabolic panel for next Saturday. We are reordering for next day but he has refused. We are going to reordered next week when he is more stable. 8. Increase Depakote up to 250 p.o. t.i.d.. 9. We are adding the p.r.n. Zyprexa IM as per court order. 10. Increase Haldol up to 2 mg p.o. t.i.d. on top of his Haldol Decanoate. Patient educated on: diagnosis Informed Consent: does not understand Reason for continued inpatient stay Substantial Risk for: inability to function Time Spent With Patient Time: Total time managing care of this patient today ____ minutes.
[2023-04-27 18:00] VITALS: BP 111/73; PULSE 97; RESP 18; TEMP 36.6; O2SAT 98
[2023-04-27] MEDS: OLANZapine 10 MG VIAL IM (22:03)
[2023-04-28] MEDS: OLANZapine 5 MG TABLET PO (10:44)
[2023-04-28] MEDS: OLANZapine 10 MG VIAL IM ×2 (13:35→21:53)
--- NOTE | 2023-04-28 16:05 | HO.PSYCHPN ---
Subjective Subjective Date of Service: 04/28/23 Reason For Visit: agressive behavior Interim History: Met with patient; discussed with team irritable when approached; swearing at staff, peers; told va underwriter and nurse to get the F out when approached. Taking PO meds. Mental Status Exam Mental Status Exam Patient Appearance: Unkempt Patient Orientation: Person Level of Consciousness: Awake Patient Behavior: Guarded, Wandering and Poor Eye Contact Mood Description: Labile Affect Description: Constricted Patient Cognition Impaired: Yes Ability to Follow Directions: Good Speech Pattern: Impoverished Hallucinations: Auditory Delusions: Paranoid Ideation and Ideas of Reference Thought Process: Incoherent, Illogical, Distracted and Slowed Thinking Thought Content: positive for [place] and positive for Poverty of Content Judgement: Poor Diagnostics Vital Signs (24Hr): Vital Signs - 24 hr 04/27/23 18:00 Temperature 97.9 F Pulse Rate 97 Respiratory Rate 18 Blood Pressure 111/73 Pulse Oximetry 98 Oxygen Delivery Method Room Air BMI result Body Mass Index 15.5 Labs 04/07/23 23:41 04/07/23 23:41 Imaging Radiology Impressions: ITS Impressions Chest X-Ray 04/10/23 09:25 IMPRESSION: There is bulky-focal very mild linear scar/subsegmental atelectasis in the mid to lower left lung, likely related gaseous distention of the stomach. Chest X-Ray 04/19/23 09:15 IMPRESSION: Question left base infiltrate. Air-filled distended stomach and bowel. Medications Medications Current Medications Acetaminophen (Acetaminophen 325 Mg Tablet) 650 mg PO Q6H PRN PRN Reason: Pain (Scale Score 1-3) Last Admin: 04/26/23 23:21 Dose: 650 mg Acetaminophen (Acetaminophen 325 Mg Tablet) 650 mg PO Q6H PRN PRN Reason: Headache/Pain Mild Scale (1-3) Last Admin: 04/17/23 04:11 Dose: 650 mg Al Hydroxide/Mg Hydroxide (Magnesium Hydrox/Alum Hydrox 30 Ml Oral.Susp) 30 ml PO Q6H PRN PRN Reason: Heartburn/Nausea Divalproex Sodium (Divalproex Sodium 250 Mg Tablet.Dr) 250 mg PO TID [facility] Last Admin: 04/28/23 10:33 Dose: Not Given Emtricitabine/Tenofovir Alafenamide (Emtricitabine/Tenofov Alafenam Tablet) 1 tab PO DAILY [facility] Last Admin: 04/28/23 10:33 Dose: Not Given Haloperidol (Haloperidol 1 Mg Tablet) 1 mg PO TID PRN PRN Reason: psychotic agitation Last Admin: 04/26/23 23:22 Dose: 1 mg Haloperidol (Haloperidol 1 Mg Tablet) 2 mg PO BID [facility] Last Admin: 04/28/23 10:33 Dose: Not Given Haloperidol Decanoate (Haloperidol Decanoate 50 Mg/Ml Ampul) 100 mg IM Q28D [facility] Last Admin: 04/17/23 13:16 Dose: 100 mg Levetiracetam (Levetiracetam 500 Mg Tablet) 500 mg PO BID [facility] Last Admin: 04/28/23 10:33 Dose: Not Given Lorazepam (Lorazepam 1 Mg Tablet) 1 mg PO Q4H PRN PRN Reason: anxiety/agitation Last Admin: 04/27/23 02:48 Dose: 1 mg Magnesium Hydroxide (Milk Of Magnesia 30 Ml Oral.Susp) 30 ml PO DAILY PRN PRN Reason: Constipation Last Admin: 04/24/23 05:23 Dose: 30 ml Mirtazapine (Mirtazapine 15 Mg Tablet) 15 mg PO BEDTIME [facility] Last Admin: 04/27/23 23:20 Dose: Not Given Olanzapine (Olanzapine 5 Mg Tablet) 5 mg PO TID PRN PRN Reason: agitation Last Admin: 04/26/23 23:22 Dose: 5 mg Olanzapine (Olanzapine 5 Mg Tablet) 5 mg PO BID@0830,1330 [facility] Last Admin: 04/28/23 13:27 Dose: Not Given Olanzapine (Olanzapine 10 Mg Tablet) 10 mg PO BEDTIME [facility] Last Admin: 04/27/23 23:20 Dose: Not Given Olanzapine (Olanzapine 10 Mg Vial) 10 mg IM TID PRN PRN Reason: refusal of zyprexa Last Admin: 04/28/23 13:35 Dose: 10 mg Polyethylene Glycol (Polyethylene Glycol 3350 17 Gm Powd.Pack) 17 gm PO DAILY PRN PRN Reason: Constipation Rilpivirine (Rilpivirine Hcl 25 Mg Tablet) 25 mg PO DAILY [facility] Last Admin: 04/28/23 10:34 Dose: Not Given Thiamine HCl (Thiamine Hcl 100 Mg Tablet) 100 mg PO DAILY [facility] Last Admin: 04/28/23 10:34 Dose: Not Given Trazodone HCl (Trazodone Hcl 25 Mg Halftab) 25 mg PO BEDTIME MRX1 PRN PRN Reason: Insomnia Last Admin: 04/26/23 23:22 Dose: 25 mg Allergies Allergies Allergy/AdvReac Type Severity Reaction Status Date / Time No Known Allergies Allergy Unverified 01/28/20 16:07 [No Known Allergies*] Assessment & Plan Assessment & Plan (1) Dementia: Status: Acute Code(s): F03.90 - Unspecified dementia, unspecified severity, without behavioral disturbance, psychotic disturbance, mood disturbance, and anxiety (2) Schizoaffective disorder, bipolar type: Status: Acute Code(s): F25.0 - Schizoaffective disorder, bipolar type Plan the patient is an elderly male with a past history of schizoaffective disorder and dementia who was brought from his rest home for exacerbation of psychosis, disorganized behavior and inappropriate sexual behavior with exit seeking behavior due to noncompliance for several days with his medications. The patient is unable to provide any more details due to his advanced dementia. 04/13/23- Given Haldol 5 mg, Ativan 2 mg during the night for severe aggressive agitation as Olanzapine was not effective. Today, sedate- change prn's to Haldol 1 mg tid prn and Ativan 0.25 mg tid prn 04/14/23- Agitated. Olanzapine prn has not been effective per team Discontinue Lorazapem 0.25 mg tid prn Increase Depakote to 250 mg bid Consider possibly replacing Keppra with Depakote with further titration if tolerated as it should provide improved mood control. 04/24 Patient remains delusional and can still get agitated but staff reports he seems to be coming down more. Taking his medications. On approach patient said he wanted to talk to va underwriter, wanted to know why he was transferred to this hospital since he was real listing in the [employer] in the [place] 04/27 continue current treatment plan 04/28 continue current tx plan Plan 1. Gather collateral information. 2. We will continue with his medications as per court order. 3. We will refer to Medicine and blood work. 4. Reassessment results. 5. 15 minute checks. 6. We are going to increase Zyprexa to 20 mg p.o. q.h.s. on April 12. On April 16 we are changing Zyprexa 5 mg p.o. b.i.d. and 10 mg p.o. q.h.s. 7. Depakote level and comprehensive metabolic panel for next Saturday. We are reordering for next day but he has refused. We are going to reordered next week when he is more stable. 8. Increase Depakote up to 250 p.o. t.i.d.. 9. We are adding the p.r.n. Zyprexa IM as per court order. 10. Increase Haldol up to 2 mg p.o. t.i.d. on top of his Haldol Decanoate. Reason for continued inpatient stay Substantial Risk for: inability to function Time Spent With Patient Time: Total time managing care of this patient today ____ minutes.
[2023-04-28 21:44] VITALS: RESP 16
[2023-04-29 08:05] VITALS: PULSE 111; RESP 18; TEMP 36.1; O2SAT 97
[2023-04-29] MEDS: HaloperidoL 1 MG TABLET 2 MG PO (08:53)
[2023-04-29] MEDS: Divalproex Sodium 250 MG TABLET.DR PO ×2 (08:54→22:40)
[2023-04-29] MEDS: OLANZapine 5 MG TABLET PO ×2 (08:55→13:02)
--- NOTE | 2023-04-29 12:33 | HO.PSYCHPN ---
Subjective Subjective Date of Service: 04/29/23 Reason For Visit: agressive behavior Subjective Notes: Pedraza Order and Conditional Voluntary Interim History: The nursing staff reported the patient had been angry, verbally abusive, disorganized. He refused his medication and he we needed to get an IM. On interview the patient was very agitated refused to engage in conversation. We are going to increase his Haldol up to 5 mg p.o. b.i.d. on top of his Haldol Decanoate Mental Status Exam Mental Status Exam Patient Appearance: Unkempt Patient Orientation: Person Level of Consciousness: Restless, Inappropriate and Combative Patient Behavior: Belligerent and Resistive to Care Mood Description: Hostile Affect Description: Blunted and Angry Patient Cognition Impaired: Yes Ability to Follow Directions: Fair Speech Pattern: Impoverished and Excited Hallucinations: Auditory Delusions: Paranoid Ideation and Ideas of Reference Thought Process: Distracted and Slowed Thinking Thought Content: positive for [place] and positive for Poverty of Content Judgement: Poor Diagnostics Vital Signs (24Hr): Vital Signs - 24 hr 04/28/23 21:44 04/29/23 08:05 Temperature 96.9 F Pulse Rate 111 H Respiratory Rate 16 18 Pulse Oximetry 97 Oxygen Delivery Method Room Air BMI result Body Mass Index 15.5 Labs 04/07/23 23:41 04/07/23 23:41 Imaging Radiology Impressions: ITS Impressions Chest X-Ray 04/10/23 09:25 IMPRESSION: There is bulky-focal very mild linear scar/subsegmental atelectasis in the mid to lower left lung, likely related gaseous distention of the stomach. Chest X-Ray 04/19/23 09:15 IMPRESSION: Question left base infiltrate. Air-filled distended stomach and bowel. Medications Medications Current Medications Acetaminophen (Acetaminophen 325 Mg Tablet) 650 mg PO Q6H PRN PRN Reason: Pain (Scale Score 1-3) Last Admin: 04/26/23 23:21 Dose: 650 mg Acetaminophen (Acetaminophen 325 Mg Tablet) 650 mg PO Q6H PRN PRN Reason: Headache/Pain Mild Scale (1-3) Last Admin: 04/17/23 04:11 Dose: 650 mg Al Hydroxide/Mg Hydroxide (Magnesium Hydrox/Alum Hydrox 30 Ml Oral.Susp) 30 ml PO Q6H PRN PRN Reason: Heartburn/Nausea Divalproex Sodium (Divalproex Sodium 250 Mg Tablet.Dr) 250 mg PO TID [facility] Last Admin: 04/29/23 08:54 Dose: 250 mg Emtricitabine/Tenofovir Alafenamide (Emtricitabine/Tenofov Alafenam Tablet) 1 tab PO DAILY [facility] Last Admin: 04/29/23 09:02 Dose: Not Given Haloperidol (Haloperidol 1 Mg Tablet) 1 mg PO TID PRN PRN Reason: psychotic agitation Last Admin: 04/26/23 23:22 Dose: 1 mg Haloperidol (Haloperidol 5 Mg Tablet) 5 mg PO BID [facility] Haloperidol Decanoate (Haloperidol Decanoate 50 Mg/Ml Ampul) 100 mg IM Q28D [facility] Last Admin: 04/17/23 13:16 Dose: 100 mg Levetiracetam (Levetiracetam 500 Mg Tablet) 500 mg PO BID [facility] Last Admin: 04/29/23 09:03 Dose: Not Given Lorazepam (Lorazepam 1 Mg Tablet) 1 mg PO Q4H PRN PRN Reason: anxiety/agitation Last Admin: 04/27/23 02:48 Dose: 1 mg Magnesium Hydroxide (Milk Of Magnesia 30 Ml Oral.Susp) 30 ml PO DAILY PRN PRN Reason: Constipation Last Admin: 04/24/23 05:23 Dose: 30 ml Mirtazapine (Mirtazapine 15 Mg Tablet) 15 mg PO BEDTIME [facility] Last Admin: 04/28/23 21:43 Dose: Not Given Olanzapine (Olanzapine 5 Mg Tablet) 5 mg PO TID PRN PRN Reason: agitation Last Admin: 04/26/23 23:22 Dose: 5 mg Olanzapine (Olanzapine 5 Mg Tablet) 5 mg PO BID@0830,1330 [facility] Last Admin: 04/29/23 08:55 Dose: 5 mg Olanzapine (Olanzapine 10 Mg Tablet) 10 mg PO BEDTIME [facility] Last Admin: 04/28/23 21:43 Dose: Not Given Olanzapine (Olanzapine 10 Mg Vial) 10 mg IM TID PRN PRN Reason: refusal of zyprexa Last Admin: 04/28/23 21:53 Dose: 10 mg Polyethylene Glycol (Polyethylene Glycol 3350 17 Gm Powd.Pack) 17 gm PO DAILY PRN PRN Reason: Constipation Rilpivirine (Rilpivirine Hcl 25 Mg Tablet) 25 mg PO DAILY [facility] Last Admin: 04/29/23 09:03 Dose: Not Given Thiamine HCl (Thiamine Hcl 100 Mg Tablet) 100 mg PO DAILY [facility] Last Admin: 04/29/23 09:03 Dose: Not Given Trazodone HCl (Trazodone Hcl 25 Mg Halftab) 25 mg PO BEDTIME MRX1 PRN PRN Reason: Insomnia Last Admin: 04/26/23 23:22 Dose: 25 mg Allergies Allergies Allergy/AdvReac Type Severity Reaction Status Date / Time No Known Allergies Allergy Unverified 01/28/20 16:07 [No Known Allergies*] Assessment & Plan Assessment & Plan (1) Dementia: Status: Acute Code(s): F03.90 - Unspecified dementia, unspecified severity, without behavioral disturbance, psychotic disturbance, mood disturbance, and anxiety (2) Schizoaffective disorder, bipolar type: Status: Acute Code(s): F25.0 - Schizoaffective disorder, bipolar type Plan the patient is an elderly male with a past history of schizoaffective disorder and dementia who was brought from his rest home for exacerbation of psychosis, disorganized behavior and inappropriate sexual behavior with exit seeking behavior due to noncompliance for several days with his medications. The patient is unable to provide any more details due to his advanced dementia. 04/13/23- Given Haldol 5 mg, Ativan 2 mg during the night for severe aggressive agitation as Olanzapine was not effective. Today, sedate- change prn's to Haldol 1 mg tid prn and Ativan 0.25 mg tid prn 04/14/23- Agitated. Olanzapine prn has not been effective per team Discontinue Lorazapem 0.25 mg tid prn Increase Depakote to 250 mg bid Consider possibly replacing Keppra with Depakote with further titration if tolerated as it should provide improved mood control. 04/24 Patient remains delusional and can still get agitated but staff reports he seems to be coming down more. Taking his medications. On approach patient said he wanted to talk to technical writer and editor, wanted to know why he was transferred to this hospital since he was real listing [facility] the [employer] in the [place] 04/27 continue current treatment plan 04/28 continue current tx plan Plan 1. Gather collateral information. 2. We will continue with his medications as per court order. 3. We will refer to Medicine and blood work. 4. Reassessment results. 5. 15 minute checks. 6. We are going to increase Zyprexa to 20 mg p.o. q.h.s. on April 12. On April 16 we are changing Zyprexa 5 mg p.o. b.i.d. and 10 mg p.o. q.h.s. 7. Depakote level and comprehensive metabolic panel for next Saturday. We are reordering for next day but he has refused. We are going to reordered next week when he is more stable. 8. Increase Depakote up to 250 p.o. t.i.d.. 9. We are adding the p.r.n. Zyprexa IM as per court order. 10. Increase Haldol up to 2 mg p.o. t.i.d. on top of his Haldol Decanoate. Increase Haldol up to 5 mg p.o. b.i.d. on April 29. Reason for continued inpatient stay Substantial Risk for: inability to function, rapid decompensation and med/psych decompensation Time Spent With Patient Time: Total time managing care of this patient today __20__ minutes.
[2023-04-29 18:00] VITALS: RESP 16
[2023-04-29] MEDS: LORazepam 1 MG TABLET PO (22:40)
[2023-04-29] MEDS: OLANZapine 10 MG TABLET PO (22:40)
[2023-04-29] MEDS: levETIRAcetam 500 MG TABLET PO (22:41)
[2023-04-29] MEDS: Mirtazapine 15 MG TABLET PO (22:41)
[2023-04-29] MEDS: HaloperidoL 5 MG TABLET PO (22:41)
[2023-04-30 08:49] LABS: COVID-19 Test Negative (Negative); IDNOW Serial# BCCEAD1C
[2023-04-30 09:24] VITALS: BP 114/62; PULSE 132; RESP 16; TEMP 37; O2SAT 95
[2023-04-30] MEDS: Emtricitabine/Tenofov Alafenam TABLET 1 TAB PO (09:30)
[2023-04-30] MEDS: levETIRAcetam 500 MG TABLET PO ×2 (09:30→19:56)
[2023-04-30] MEDS: Divalproex Sodium 250 MG TABLET.DR PO ×3 (09:30→19:56)
[2023-04-30] MEDS: Rilpivirine HCL 25 MG TABLET PO (09:30)
[2023-04-30] MEDS: Thiamine HCL 100 MG TABLET PO (09:30)
[2023-04-30] MEDS: OLANZapine 5 MG TABLET PO ×2 (09:30→14:52)
[2023-04-30] MEDS: HaloperidoL 5 MG TABLET PO ×2 (09:30→19:56)
--- NOTE | 2023-04-30 09:46 | P.PNPSI_ITS ---
Subjective Subjective Date of Service: 04/30/23 Reason For Visit: agressive behavior Subjective Notes: Conditional Voluntary Interim History: Pt slept 8hrs. He is taking antipsychotic per Jass's. He continues to present with paranoid delusions, self dialoguing, yelling at staff and not engaging with providers. He tells this headline writer: hesharath, witch! get the fuck out of here! He declines further conversation with this headline writer. He has been mostly in his room. Not interacting with peers or staff, but constantly yelling from his room Review of Systems Review of Systems Yes Unobtainable due to mental status Mental Status Exam Mental Status Exam Patient Appearance: Unkempt Patient Orientation: Person Level of Consciousness: Restless, Inappropriate and Combative Patient Behavior: Belligerent and Resistive to Care Mood Description: Hostile Affect Description: Blunted and Angry Patient Cognition Impaired: Yes Ability to Follow Directions: Fair Speech Pattern: Impoverished and Excited Memory Description: Remote Impaired Diagnostics Vital Signs (24Hr): Vital Signs - 24 hr 04/29/23 18:00 04/30/23 09:24 Temperature 98.6 F Pulse Rate 132 H Respiratory Rate 16 16 Blood Pressure 114/62 Pulse Oximetry 95 Oxygen Delivery Method Room Air BMI result Body Mass Index 15.5 Labs 04/07/23 23:41 04/07/23 23:41 Labs: Laboratory Results - last 48 hr 04/30/23 08:27 COVID-19 ([facility]) Negative COVID-19 Clin Com See Note Imaging Radiology Impressions: ITS Impressions Chest X-Ray 04/10/23 09:25 IMPRESSION: There is bulky-focal very mild linear scar/subsegmental atelectasis in the mid to lower left lung, likely related gaseous distention of the stomach. Chest X-Ray 04/19/23 09:15 IMPRESSION: Question left base infiltrate. Air-filled distended stomach and bowel. Medications Medications Current Medications Acetaminophen (Acetaminophen 325 Mg Tablet) 650 mg PO Q6H PRN PRN Reason: Pain (Scale Score 1-3) Last Admin: 04/26/23 23:21 Dose: 650 mg Acetaminophen (Acetaminophen 325 Mg Tablet) 650 mg PO Q6H PRN PRN Reason: Headache/Pain Mild Scale (1-3) Last Admin: 04/17/23 04:11 Dose: 650 mg Al Hydroxide/Mg Hydroxide (Magnesium Hydrox/Alum Hydrox 30 Ml Oral.Susp) 30 ml PO Q6H PRN PRN Reason: Heartburn/Nausea Divalproex Sodium (Divalproex Sodium 250 Mg Tablet.Dr) 250 mg PO TID [facility] Last Admin: 04/30/23 09:30 Dose: 250 mg Emtricitabine/Tenofovir Alafenamide (Emtricitabine/Tenofov Alafenam Tablet) 1 tab PO DAILY [facility] Last Admin: 04/30/23 09:30 Dose: 1 tab Haloperidol (Haloperidol 1 Mg Tablet) 1 mg PO TID PRN PRN Reason: psychotic agitation Last Admin: 04/26/23 23:22 Dose: 1 mg Haloperidol (Haloperidol 5 Mg Tablet) 5 mg PO BID [facility] Last Admin: 04/30/23 09:30 Dose: 5 mg Haloperidol Decanoate (Haloperidol Decanoate 50 Mg/Ml Ampul) 100 mg IM Q28D [facility] Last Admin: 04/17/23 13:16 Dose: 100 mg Levetiracetam (Levetiracetam 500 Mg Tablet) 500 mg PO BID [facility] Last Admin: 04/30/23 09:30 Dose: 500 mg Lorazepam (Lorazepam 1 Mg Tablet) 1 mg PO Q4H PRN PRN Reason: anxiety/agitation Last Admin: 04/29/23 22:40 Dose: 1 mg Magnesium Hydroxide (Milk Of Magnesia 30 Ml Oral.Susp) 30 ml PO DAILY PRN PRN Reason: Constipation Last Admin: 04/24/23 05:23 Dose: 30 ml Mirtazapine (Mirtazapine 15 Mg Tablet) 15 mg PO BEDTIME [facility] Last Admin: 04/29/23 22:41 Dose: 15 mg Olanzapine (Olanzapine 5 Mg Tablet) 5 mg PO TID PRN PRN Reason: agitation Last Admin: 04/26/23 23:22 Dose: 5 mg Olanzapine (Olanzapine 5 Mg Tablet) 5 mg PO BID@0830,1330 [facility] Last Admin: 04/30/23 09:30 Dose: 5 mg Olanzapine (Olanzapine 10 Mg Tablet) 10 mg PO BEDTIME [facility] Last Admin: 04/29/23 22:40 Dose: 10 mg Olanzapine (Olanzapine 10 Mg Vial) 10 mg IM TID PRN PRN Reason: refusal of zyprexa Last Admin: 04/28/23 21:53 Dose: 10 mg Polyethylene Glycol (Polyethylene Glycol 3350 17 Gm Powd.Pack) 17 gm PO DAILY PRN PRN Reason: Constipation Rilpivirine (Rilpivirine Hcl 25 Mg Tablet) 25 mg PO DAILY [facility] Last Admin: 04/30/23 09:30 Dose: 25 mg Thiamine HCl (Thiamine Hcl 100 Mg Tablet) 100 mg PO DAILY [facility] Last Admin: 04/30/23 09:30 Dose: 100 mg Trazodone HCl (Trazodone Hcl 25 Mg Halftab) 25 mg PO BEDTIME MRX1 PRN PRN Reason: Insomnia Last Admin: 04/26/23 23:22 Dose: 25 mg Allergies Allergies Allergy/AdvReac Type Severity Reaction Status Date / Time No Known Allergies Allergy Unverified 01/28/20 16:07 [No Known Allergies*] Assessment & Plan Assessment & Plan (1) Dementia: Status: Acute Code(s): F03.90 - Unspecified dementia, unspecified severity, without behavioral disturbance, psychotic disturbance, mood disturbance, and anxiety (2) Schizoaffective disorder, bipolar type: Status: Acute Code(s): F25.0 - Schizoaffective disorder, bipolar type Plan the patient is an elderly male with a past history of schizoaffective disorder and dementia who was brought from his rest home for exacerbation of psychosis, disorganized behavior and inappropriate sexual behavior with exit seeking behavior due to noncompliance for several days with his medications. The patient is unable to provide any more details due to his advanced dementia. 04/13/23- Given Haldol 5 mg, Ativan 2 mg during the night for severe aggressive agitation as Olanzapine was not effective. Today, sedate- change prn's to Haldol 1 mg tid prn and Ativan 0.25 mg tid prn 04/14/23- Agitated. Olanzapine prn has not been effective per team Discontinue Lorazapem 0.25 mg tid prn Increase Depakote to 250 mg bid Consider possibly replacing Keppra with Depakote with further titration if tolerated as it should provide improved mood control. 04/24 Patient remains delusional and can still get agitated but staff reports he seems to be coming down more. Taking his medications. On approach patient said he wanted to talk to headline writer, wanted to know why he was transferred to this hospital since he was real listing in the [employer] in the [place] 04/27 continue current treatment plan 04/28 continue current tx plan 04/30- continue tx. Reason for continued inpatient stay Substantial Risk for: inability to function Time Spent With Patient Time: Total time managing care of this patient today ____ minutes.
[2023-04-30 18:00] VITALS: BP 120/68; PULSE 106; RESP 18; TEMP 37; O2SAT 95
[2023-04-30] MEDS: LORazepam 1 MG TABLET PO (19:55)
[2023-04-30] MEDS: Mirtazapine 15 MG TABLET PO (19:55)
[2023-04-30] MEDS: traZODone HCL 25 MG HALFTAB PO (19:56)
[2023-04-30] MEDS: OLANZapine 10 MG TABLET PO (19:57)
[2023-05-01 08:00] VITALS: BP 114/77; PULSE 97; RESP 20; TEMP 36.8; O2SAT 97
[2023-05-01] MEDS: Rilpivirine HCL 25 MG TABLET PO (08:16)
[2023-05-01] MEDS: levETIRAcetam 500 MG TABLET PO ×2 (08:16→20:35)
[2023-05-01] MEDS: Emtricitabine/Tenofov Alafenam TABLET 1 TAB PO (08:16)
[2023-05-01] MEDS: HaloperidoL 5 MG TABLET PO ×2 (08:16→20:35)
[2023-05-01] MEDS: Divalproex Sodium 250 MG TABLET.DR PO ×3 (08:16→20:35)
[2023-05-01] MEDS: Thiamine HCL 100 MG TABLET PO (08:16)
[2023-05-01] MEDS: OLANZapine 5 MG TABLET PO ×2 (08:16→14:19)
--- NOTE | 2023-05-01 12:27 | P.PNPSI_ITS ---
Subjective Subjective Date of Service: 05/01/23 Reason For Visit: agressive behavior Subjective Notes: Pedraza Order and Conditional Voluntary Interim History: The nursing staff reported the patient had been taking his medications he did not meet Zyprexa IM as a backup. He slept well and he had been labile still yelling at the nurses and staff. On interview the patient remains grossly disorganized. Mental Status Exam Mental Status Exam Patient Appearance: Unkempt Patient Orientation: Person Level of Consciousness: Disoriented and Restless Patient Behavior: Posturing and Passive Mood Description: Withdrawn Affect Description: Constricted Patient Cognition Impaired: Yes Ability to Follow Directions: Good Speech Pattern: Clear Hallucinations: None Delusions: Paranoid Ideation Thought Process: Distracted and Slowed Thinking Thought Content: positive for [place], positive for Poverty of Content, positive for [place] and positive for Thought Blocking Judgement: Poor Diagnostics Vital Signs (24Hr): Vital Signs - 24 hr 04/30/23 18:00 05/01/23 08:00 Temperature 98.6 F 98.2 F Pulse Rate 106 H 97 Respiratory Rate 18 20 Blood Pressure 120/68 114/77 Pulse Oximetry 95 97 Oxygen Delivery Method Room Air Room Air BMI result Body Mass Index 15.5 Labs 04/07/23 23:41 04/07/23 23:41 Labs: Laboratory Results - last 48 hr 04/30/23 08:27 COVID-19 ([facility]) Negative COVID-19 Clin Com See Note Imaging Radiology Impressions: ITS Impressions Chest X-Ray 04/10/23 09:25 IMPRESSION: There is bulky-focal very mild linear scar/subsegmental atelectasis in the mid to lower left lung, likely related gaseous distention of the stomach. Chest X-Ray 04/19/23 09:15 IMPRESSION: Question left base infiltrate. Air-filled distended stomach and bowel. Medications Medications Current Medications Acetaminophen (Acetaminophen 325 Mg Tablet) 650 mg PO Q6H PRN PRN Reason: Pain (Scale Score 1-3) Last Admin: 04/26/23 23:21 Dose: 650 mg Acetaminophen (Acetaminophen 325 Mg Tablet) 650 mg PO Q6H PRN PRN Reason: Headache/Pain Mild Scale (1-3) Last Admin: 04/17/23 04:11 Dose: 650 mg Al Hydroxide/Mg Hydroxide (Magnesium Hydrox/Alum Hydrox 30 Ml Oral.Susp) 30 ml PO Q6H PRN PRN Reason: Heartburn/Nausea Divalproex Sodium (Divalproex Sodium 250 Mg Tablet.Dr) 250 mg PO TID [facility] Last Admin: 05/01/23 08:16 Dose: 250 mg Emtricitabine/Tenofovir Alafenamide (Emtricitabine/Tenofov Alafenam Tablet) 1 tab PO DAILY [facility] Last Admin: 05/01/23 08:16 Dose: 1 tab Haloperidol (Haloperidol 1 Mg Tablet) 1 mg PO TID PRN PRN Reason: psychotic agitation Last Admin: 04/26/23 23:22 Dose: 1 mg Haloperidol (Haloperidol 5 Mg Tablet) 5 mg PO BID [facility] Last Admin: 05/01/23 08:16 Dose: 5 mg Haloperidol Decanoate (Haloperidol Decanoate 50 Mg/Ml Ampul) 100 mg IM Q28D [facility] Last Admin: 04/17/23 13:16 Dose: 100 mg Levetiracetam (Levetiracetam 500 Mg Tablet) 500 mg PO BID [facility] Last Admin: 05/01/23 08:16 Dose: 500 mg Lorazepam (Lorazepam 1 Mg Tablet) 1 mg PO Q4H PRN PRN Reason: anxiety/agitation Last Admin: 04/30/23 19:55 Dose: 1 mg Magnesium Hydroxide (Milk Of Magnesia 30 Ml Oral.Susp) 30 ml PO DAILY PRN PRN Reason: Constipation Last Admin: 04/24/23 05:23 Dose: 30 ml Mirtazapine (Mirtazapine 15 Mg Tablet) 15 mg PO BEDTIME [facility] Last Admin: 04/30/23 19:55 Dose: 15 mg Olanzapine (Olanzapine 5 Mg Tablet) 5 mg PO TID PRN PRN Reason: agitation Last Admin: 04/26/23 23:22 Dose: 5 mg Olanzapine (Olanzapine 5 Mg Tablet) 5 mg PO BID@0830,1330 [facility] Last Admin: 05/01/23 08:16 Dose: 5 mg Olanzapine (Olanzapine 10 Mg Tablet) 10 mg PO BEDTIME [facility] Last Admin: 04/30/23 19:57 Dose: 10 mg Olanzapine (Olanzapine 10 Mg Vial) 10 mg IM TID PRN PRN Reason: refusal of zyprexa Last Admin: 04/28/23 21:53 Dose: 10 mg Polyethylene Glycol (Polyethylene Glycol 3350 17 Gm Powd.Pack) 17 gm PO DAILY PRN PRN Reason: Constipation Rilpivirine (Rilpivirine Hcl 25 Mg Tablet) 25 mg PO DAILY [facility] Last Admin: 05/01/23 08:16 Dose: 25 mg Thiamine HCl (Thiamine Hcl 100 Mg Tablet) 100 mg PO DAILY [facility] Last Admin: 05/01/23 08:16 Dose: 100 mg Trazodone HCl (Trazodone Hcl 25 Mg Halftab) 25 mg PO BEDTIME MRX1 PRN PRN Reason: Insomnia Last Admin: 04/30/23 19:56 Dose: 25 mg Allergies Allergies Allergy/AdvReac Type Severity Reaction Status Date / Time No Known Allergies Allergy Unverified 01/28/20 16:07 [No Known Allergies*] Assessment & Plan Assessment & Plan (1) Dementia: Status: Acute Code(s): F03.90 - Unspecified dementia, unspecified severity, without behavioral disturbance, psychotic disturbance, mood disturbance, and anxiety (2) Schizoaffective disorder, bipolar type: Status: Acute Code(s): F25.0 - Schizoaffective disorder, bipolar type Plan the patient is an elderly male with a past history of schizoaffective disorder and dementia who was brought from his rest home for exacerbation of psychosis, disorganized behavior and inappropriate sexual behavior with exit seeking behavior due to noncompliance for several days with his medications. The patient is unable to provide any more details due to his advanced dementia. 04/13/23- Given Haldol 5 mg, Ativan 2 mg during the night for severe aggressive agitation as Olanzapine was not effective. Today, sedate- change prn's to Haldol 1 mg tid prn and Ativan 0.25 mg tid prn 04/14/23- Agitated. Olanzapine prn has not been effective per team Discontinue Lorazapem 0.25 mg tid prn Increase Depakote to 250 mg bid Consider possibly replacing Keppra with Depakote with further titration if tolerated as it should provide improved mood control. 04/24 Patient remains delusional and can still get agitated but staff reports he seems to be coming down more. Taking his medications. On approach patient said he wanted to talk to typewriters functional tester, wanted to know why he was transferred to this hospital since he was real listing in the [employer] in the [place] 04/27 continue current treatment plan 04/28 continue current tx plan 04/30- continue tx. 05/01 continue same treatment Reason for continued inpatient stay Substantial Risk for: inability to function, rapid decompensation and med/psych decompensation Time Spent With Patient Time: Total time managing care of this patient today __20__ minutes.
[2023-05-01 19:35] VITALS: BP 128/67; PULSE 95; RESP 18; TEMP 36.2; O2SAT 95
[2023-05-01] MEDS: OLANZapine 10 MG TABLET PO (20:35)
[2023-05-01] MEDS: Mirtazapine 15 MG TABLET PO (20:35)
[2023-05-02 06:00] VITALS: BP 128/82; PULSE 126; RESP 16; TEMP 37.6; O2SAT 96
[2023-05-02] MEDS: Thiamine HCL 100 MG TABLET PO (08:49)
[2023-05-02] MEDS: Divalproex Sodium 250 MG TABLET.DR PO ×3 (08:49→21:44)
[2023-05-02] MEDS: Emtricitabine/Tenofov Alafenam TABLET 1 TAB PO (08:50)
[2023-05-02] MEDS: Rilpivirine HCL 25 MG TABLET PO (08:50)
[2023-05-02] MEDS: levETIRAcetam 500 MG TABLET PO ×2 (08:50→21:44)
[2023-05-02] MEDS: HaloperidoL 5 MG TABLET PO ×2 (08:50→21:45)
[2023-05-02] MEDS: OLANZapine 5 MG TABLET PO ×2 (08:50→14:49)
--- NOTE | 2023-05-02 15:22 | P.PNPSI_ITS ---
Subjective Subjective Date of Service: 05/02/23 Reason For Visit: agressive behavior Subjective Notes: Pedraza Order and Conditional Voluntary Interim History: The nursing staff reported the patient slept 8 hours he had been compliant with medication his last injection was 4 days ago. The social welfare clerk reported that the guardian is concerned that his bed could be secured in the [facility]. Today interview the patient was more pleasant the usual, compliant with treatment still psychotic but more redirectable. Mental Status Exam Mental Status Exam Patient Appearance: Appropriate Patient Orientation: Person and Situation Level of Consciousness: Awake Patient Behavior: Guarded and Passive Mood Description: Withdrawn Affect Description: Constricted Patient Cognition Impaired: Yes Ability to Follow Directions: Good Speech Pattern: Clear Hallucinations: None Delusions: Paranoid Ideation Thought Process: Distracted Thought Content: positive for [place] and positive for Poverty of Content Judgement: Fair Diagnostics Vital Signs (24Hr): Vital Signs - 24 hr 05/01/23 19:35 05/02/23 06:00 Temperature 97.1 F 99.7 F Pulse Rate 95 126 H Respiratory Rate 18 16 Blood Pressure 128/67 128/82 Pulse Oximetry 95 96 Oxygen Delivery Method Room Air Room Air BMI result Body Mass Index 15.5 Labs 04/07/23 23:41 04/07/23 23:41 Imaging Radiology Impressions: ITS Impressions Chest X-Ray 04/10/23 09:25 IMPRESSION: There is bulky-focal very mild linear scar/subsegmental atelectasis in the mid to lower left lung, likely related gaseous distention of the stomach. Chest X-Ray 04/19/23 09:15 IMPRESSION: Question left base infiltrate. Air-filled distended stomach and bowel. Medications Medications Current Medications Acetaminophen (Acetaminophen 325 Mg Tablet) 650 mg PO Q6H PRN PRN Reason: Pain (Scale Score 1-3) Last Admin: 04/26/23 23:21 Dose: 650 mg Acetaminophen (Acetaminophen 325 Mg Tablet) 650 mg PO Q6H PRN PRN Reason: Headache/Pain Mild Scale (1-3) Last Admin: 04/17/23 04:11 Dose: 650 mg Al Hydroxide/Mg Hydroxide (Magnesium Hydrox/Alum Hydrox 30 Ml Oral.Susp) 30 ml PO Q6H PRN PRN Reason: Heartburn/Nausea Divalproex Sodium (Divalproex Sodium 250 Mg Tablet.Dr) 250 mg PO TID [facility] Last Admin: 05/02/23 14:49 Dose: 250 mg Emtricitabine/Tenofovir Alafenamide (Emtricitabine/Tenofov Alafenam Tablet) 1 tab PO DAILY [facility] Last Admin: 05/02/23 08:50 Dose: 1 tab Haloperidol (Haloperidol 1 Mg Tablet) 1 mg PO TID PRN PRN Reason: psychotic agitation Last Admin: 04/26/23 23:22 Dose: 1 mg Haloperidol (Haloperidol 5 Mg Tablet) 5 mg PO BID [facility] Last Admin: 05/02/23 08:50 Dose: 5 mg Haloperidol Decanoate (Haloperidol Decanoate 50 Mg/Ml Vial) 100 mg IM Q28D [facility] Levetiracetam (Levetiracetam 500 Mg Tablet) 500 mg PO BID [facility] Last Admin: 05/02/23 08:50 Dose: 500 mg Lorazepam (Lorazepam 1 Mg Tablet) 1 mg PO Q4H PRN PRN Reason: anxiety/agitation Last Admin: 04/30/23 19:55 Dose: 1 mg Magnesium Hydroxide (Milk Of Magnesia 30 Ml Oral.Susp) 30 ml PO DAILY PRN PRN Reason: Constipation Last Admin: 04/24/23 05:23 Dose: 30 ml Mirtazapine (Mirtazapine 15 Mg Tablet) 15 mg PO BEDTIME [facility] Last Admin: 05/01/23 20:35 Dose: 15 mg Olanzapine (Olanzapine 5 Mg Tablet) 5 mg PO TID PRN PRN Reason: agitation Last Admin: 04/26/23 23:22 Dose: 5 mg Olanzapine (Olanzapine 5 Mg Tablet) 5 mg PO BID@0830,1330 [facility] Last Admin: 05/02/23 14:49 Dose: 5 mg Olanzapine (Olanzapine 10 Mg Tablet) 10 mg PO BEDTIME [facility] Last Admin: 05/01/23 20:35 Dose: 10 mg Olanzapine (Olanzapine 10 Mg Vial) 10 mg IM TID PRN PRN Reason: refusal of zyprexa Last Admin: 04/28/23 21:53 Dose: 10 mg Polyethylene Glycol (Polyethylene Glycol 3350 17 Gm Powd.Pack) 17 gm PO DAILY PRN PRN Reason: Constipation Rilpivirine (Rilpivirine Hcl 25 Mg Tablet) 25 mg PO DAILY [facility] Last Admin: 05/02/23 08:50 Dose: 25 mg Thiamine HCl (Thiamine Hcl 100 Mg Tablet) 100 mg PO DAILY [facility] Last Admin: 05/02/23 08:49 Dose: 100 mg Trazodone HCl (Trazodone Hcl 25 Mg Halftab) 25 mg PO BEDTIME MRX1 PRN PRN Reason: Insomnia Last Admin: 04/30/23 19:56 Dose: 25 mg Allergies Allergies Allergy/AdvReac Type Severity Reaction Status Date / Time No Known Allergies Allergy Unverified 01/28/20 16:07 [No Known Allergies*] Assessment & Plan Assessment & Plan (1) Dementia: Status: Acute Code(s): F03.90 - Unspecified dementia, unspecified severity, without behavioral disturbance, psychotic disturbance, mood disturbance, and anxiety (2) Schizoaffective disorder, bipolar type: Status: Acute Code(s): F25.0 - Schizoaffective disorder, bipolar type Plan the patient is an elderly male with a past history of schizoaffective disorder and dementia who was brought from his rest home for exacerbation of psychosis, disorganized behavior and inappropriate sexual behavior with exit seeking behavior due to noncompliance for several days with his medications. The patient is unable to provide any more details due to his advanced dementia. 04/13/23- Given Haldol 5 mg, Ativan 2 mg during the night for severe aggressive agitation as Olanzapine was not effective. Today, sedate- change prn's to Haldol 1 mg tid prn and Ativan 0.25 mg tid prn 04/14/23- Agitated. Olanzapine prn has not been effective per team Discontinue Lorazapem 0.25 mg tid prn Increase Depakote to 250 mg bid Consider possibly replacing Keppra with Depakote with further titration if tolerated as it should provide improved mood control. 04/24 Patient remains delusional and can still get agitated but staff reports he seems to be coming down more. Taking his medications. On approach patient said he wanted to talk to newswriter, wanted to know why he was transferred to this hospital since he was real listing [facility] the [employer] in the [place] 04/27 continue current treatment plan 04/28 continue current tx plan 04/30- continue tx. 05/01 continue same treatment. 05/02 continue same treatment Reason for continued inpatient stay Substantial Risk for: inability to function, rapid decompensation and med/psych decompensation Time Spent With Patient Time: Total time managing care of this patient today __20__ minutes.
[2023-05-02] MEDS: Haloperidol Decanoate 50 MG/ML VIAL 100 MG IM (18:26)
[2023-05-02 20:00] VITALS: BP 140/85; PULSE 113; RESP 16; O2SAT 94
[2023-05-02] MEDS: OLANZapine 10 MG TABLET PO (21:44)
[2023-05-02] MEDS: Mirtazapine 15 MG TABLET PO (21:45)
[2023-05-03] MEDS: Emtricitabine/Tenofov Alafenam TABLET 1 TAB PO (09:43)
[2023-05-03] MEDS: Thiamine HCL 100 MG TABLET PO (09:43)
[2023-05-03] MEDS: Rilpivirine HCL 25 MG TABLET PO (09:43)
[2023-05-03] MEDS: OLANZapine 10 MG VIAL IM (10:04)
[2023-05-03 11:29] LABS: COVID-19 Test Negative (Negative); IDNOW Serial# 08D9AD1C
--- NOTE | 2023-05-03 12:42 | MHC.CLN ---
F/U DIET=REGULAR. MAGIC CUP ADDED BID TO INCREASE CALORIC INTAKE. PROVIDES 580 KCALS, 18 G PROTEIN. VARIABLE INTAKE WITH WIDE RANGE OF 0-100%. FOLLOW FOR WEIGHT AND INTAKE. ENCOURAGE INTAKE ABLE. RD TO FOLLOW UP WEEKLY.
[2023-05-03] MEDS: OLANZapine 5 MG TABLET PO (13:03)
[2023-05-03 18:00] VITALS: RESP 16
[2023-05-03] MEDS: OLANZapine 10 MG TABLET PO (21:15)
[2023-05-03] MEDS: LORazepam 1 MG TABLET PO (21:16)
--- NOTE | 2023-05-03 23:17 | P.PNPSI_ITS ---
Subjective Subjective Date of Service: 05/03/23 Reason For Visit: agressive behavior Interim History: Pt continues to present as paranoid. He takes medications. He is mostly in his room. He yelled at this policy writer sales: get fuck out then politely asked this policy writer sales if I could get him water. He self dialogued. No aggression towards self or others. VS stable. Neg covid Diagnostics Vital Signs (24Hr): Vital Signs - 24 hr 05/03/23 18:00 Respiratory Rate 16 BMI result Body Mass Index 15.5 Labs 04/07/23 23:41 04/07/23 23:41 Labs: Laboratory Results - last 48 hr 05/03/23 10:50 COVID-19 ([facility]) Negative COVID-19 Clin Com See Note Imaging Radiology Impressions: ITS Impressions Chest X-Ray 04/10/23 09:25 IMPRESSION: There is bulky-focal very mild linear scar/subsegmental atelectasis in the mid to lower left lung, likely related gaseous distention of the stomach. Chest X-Ray 04/19/23 09:15 IMPRESSION: Question left base infiltrate. Air-filled distended stomach and bowel. Medications Medications Current Medications Acetaminophen (Acetaminophen 325 Mg Tablet) 650 mg PO Q6H PRN PRN Reason: Pain (Scale Score 1-3) Last Admin: 04/26/23 23:21 Dose: 650 mg Acetaminophen (Acetaminophen 325 Mg Tablet) 650 mg PO Q6H PRN PRN Reason: Headache/Pain Mild Scale (1-3) Last Admin: 04/17/23 04:11 Dose: 650 mg Al Hydroxide/Mg Hydroxide (Magnesium Hydrox/Alum Hydrox 30 Ml Oral.Susp) 30 ml PO Q6H PRN PRN Reason: Heartburn/Nausea Divalproex Sodium (Divalproex Sodium 250 Mg Tablet.) 250 mg PO TID [facility] Last Admin: 05/03/23 21:49 Dose: Not Given Emtricitabine/Tenofovir Alafenamide (Emtricitabine/Tenofov Alafenam Tablet) 1 tab PO DAILY [facility] Last Admin: 05/03/23 09:43 Dose: 1 tab Haloperidol (Haloperidol 1 Mg Tablet) 1 mg PO TID PRN PRN Reason: psychotic agitation Last Admin: 04/26/23 23:22 Dose: 1 mg Haloperidol (Haloperidol 5 Mg Tablet) 5 mg PO BID [facility] Last Admin: 05/03/23 21:49 Dose: Not Given Haloperidol Decanoate (Haloperidol Decanoate 50 Mg/Ml Vial) 100 mg IM Q28D [facility] Last Admin: 05/02/23 18:26 Dose: 100 mg Levetiracetam (Levetiracetam 500 Mg Tablet) 500 mg PO BID [facility] Last Admin: 05/03/23 21:18 Dose: Not Given Lorazepam (Lorazepam 1 Mg Tablet) 1 mg PO Q4H PRN PRN Reason: anxiety/agitation Last Admin: 05/03/23 21:16 Dose: 1 mg Magnesium Hydroxide (Milk Of Magnesia 30 Ml Oral.Susp) 30 ml PO DAILY PRN PRN Reason: Constipation Last Admin: 04/24/23 05:23 Dose: 30 ml Mirtazapine (Mirtazapine 15 Mg Tablet) 15 mg PO BEDTIME [facility] Last Admin: 05/03/23 21:18 Dose: Not Given Olanzapine (Olanzapine 5 Mg Tablet) 5 mg PO TID PRN PRN Reason: agitation Last Admin: 04/26/23 23:22 Dose: 5 mg Olanzapine (Olanzapine 5 Mg Tablet) 5 mg PO BID@0830,1330 [facility] Last Admin: 05/03/23 13:03 Dose: 5 mg Olanzapine (Olanzapine 10 Mg Tablet) 10 mg PO BEDTIME [facility] Last Admin: 05/03/23 21:15 Dose: 10 mg Olanzapine (Olanzapine 10 Mg Vial) 10 mg IM TID PRN PRN Reason: refusal of zyprexa Last Admin: 05/03/23 10:04 Dose: 10 mg Polyethylene Glycol (Polyethylene Glycol 3350 17 Gm Powd.Pack) 17 gm PO DAILY PRN PRN Reason: Constipation Rilpivirine (Rilpivirine Hcl 25 Mg Tablet) 25 mg PO DAILY [facility] Last Admin: 05/03/23 09:43 Dose: 25 mg Thiamine HCl (Thiamine Hcl 100 Mg Tablet) 100 mg PO DAILY [facility] Last Admin: 05/03/23 09:43 Dose: 100 mg Trazodone HCl (Trazodone Hcl 25 Mg Halftab) 25 mg PO BEDTIME MRX1 PRN PRN Reason: Insomnia Last Admin: 04/30/23 19:56 Dose: 25 mg Allergies Allergies Allergy/AdvReac Type Severity Reaction Status Date / Time No Known Allergies Allergy Unverified 01/28/20 16:07 [No Known Allergies*] Assessment & Plan Assessment & Plan (1) Dementia: Status: Acute Code(s): F03.90 - Unspecified dementia, unspecified severity, without behavioral disturbance, psychotic disturbance, mood disturbance, and anxiety (2) Schizoaffective disorder, bipolar type: Status: Acute Code(s): F25.0 - Schizoaffective disorder, bipolar type Plan the patient is an elderly male with a past history of schizoaffective disorder and dementia who was brought from his rest home for exacerbation of psychosis, disorganized behavior and inappropriate sexual behavior with exit seeking behavior due to noncompliance for several days with his medications. The patient is unable to provide any more details due to his advanced dementia. 04/13/23- Given Haldol 5 mg, Ativan 2 mg during the night for severe aggressive agitation as Olanzapine was not effective. Today, sedate- change prn's to Haldol 1 mg tid prn and Ativan 0.25 mg tid prn 04/14/23- Agitated. Olanzapine prn has not been effective per team Discontinue Lorazapem 0.25 mg tid prn Increase Depakote to 250 mg bid Consider possibly replacing Keppra with Depakote with further titration if tolerated as it should provide improved mood control. 04/24 Patient remains delusional and can still get agitated but staff reports he seems to be coming down more. Taking his medications. On approach patient said he wanted to talk to policy writer sales, wanted to know why he was transferred to this hospital since he was real listing in the [employer] in the [place] 04/27 continue current treatment plan 04/28 continue current tx plan 04/30- continue tx. 05/01 continue same treatment. 05/02 continue same treatment 05/03 continue tx. Reason for continued inpatient stay Substantial Risk for: inability to function Time Spent With Patient Time: Total time managing care of this patient today ____ minutes.
[2023-05-04] MEDS: OLANZapine 5 MG TABLET PO ×2 (08:11→12:57)
[2023-05-04] MEDS: LORazepam 1 MG TABLET PO (20:42)
[2023-05-04] MEDS: OLANZapine 10 MG TABLET PO (20:49)
--- NOTE | 2023-05-04 21:21 | HO.PSYCHPN ---
Subjective Subjective Date of Service: 05/04/23 Reason For Visit: agressive behavior Interim History: Pt continues to present as paranoid. He takes medications. He is mostly in his room. Irritable easily agitated Diagnostics Vital Signs (24Hr): BMI result Body Mass Index 15.5 Labs 04/07/23 23:41 04/07/23 23:41 Labs: Laboratory Results - last 48 hr 05/03/23 10:50 COVID-19 ([facility]) Negative COVID-19 Clin Com See Note Imaging Radiology Impressions: ITS Impressions Chest X-Ray 04/10/23 09:25 IMPRESSION: There is bulky-focal very mild linear scar/subsegmental atelectasis in the mid to lower left lung, likely related gaseous distention of the stomach. Chest X-Ray 04/19/23 09:15 IMPRESSION: Question left base infiltrate. Air-filled distended stomach and bowel. Medications Medications Current Medications Acetaminophen (Acetaminophen 325 Mg Tablet) 650 mg PO Q6H PRN PRN Reason: Pain (Scale Score 1-3) Last Admin: 04/26/23 23:21 Dose: 650 mg Acetaminophen (Acetaminophen 325 Mg Tablet) 650 mg PO Q6H PRN PRN Reason: Headache/Pain Mild Scale (1-3) Last Admin: 04/17/23 04:11 Dose: 650 mg Al Hydroxide/Mg Hydroxide (Magnesium Hydrox/Alum Hydrox 30 Ml Oral.Susp) 30 ml PO Q6H PRN PRN Reason: Heartburn/Nausea Divalproex Sodium (Divalproex Sodium 250 Mg Tablet.Dr) 250 mg PO TID [facility] Last Admin: 05/04/23 20:45 Dose: Not Given Emtricitabine/Tenofovir Alafenamide (Emtricitabine/Tenofov Alafenam Tablet) 1 tab PO DAILY [facility] Last Admin: 05/04/23 10:24 Dose: Not Given Haloperidol (Haloperidol 1 Mg Tablet) 1 mg PO TID PRN PRN Reason: psychotic agitation Last Admin: 04/26/23 23:22 Dose: 1 mg Haloperidol (Haloperidol 5 Mg Tablet) 5 mg PO BID [facility] Last Admin: 05/04/23 20:46 Dose: Not Given Haloperidol Decanoate (Haloperidol Decanoate 50 Mg/Ml Vial) 100 mg IM Q28D [facility] Last Admin: 05/02/23 18:26 Dose: 100 mg Levetiracetam (Levetiracetam 500 Mg Tablet) 500 mg PO BID [facility] Last Admin: 05/04/23 10:24 Dose: Not Given Lorazepam (Lorazepam 1 Mg Tablet) 1 mg PO Q4H PRN PRN Reason: anxiety/agitation Last Admin: 05/04/23 20:42 Dose: 1 mg Magnesium Hydroxide (Milk Of Magnesia 30 Ml Oral.Susp) 30 ml PO DAILY PRN PRN Reason: Constipation Last Admin: 04/24/23 05:23 Dose: 30 ml Mirtazapine (Mirtazapine 15 Mg Tablet) 15 mg PO BEDTIME [facility] Last Admin: 05/04/23 20:46 Dose: Not Given Olanzapine (Olanzapine 5 Mg Tablet) 5 mg PO TID PRN PRN Reason: agitation Last Admin: 04/26/23 23:22 Dose: 5 mg Olanzapine (Olanzapine 5 Mg Tablet) 5 mg PO BID@0830,1330 [facility] Last Admin: 05/04/23 12:57 Dose: 5 mg Olanzapine (Olanzapine 10 Mg Tablet) 10 mg PO BEDTIME [facility] Last Admin: 05/04/23 20:49 Dose: 10 mg Olanzapine (Olanzapine 10 Mg Vial) 10 mg IM TID PRN PRN Reason: refusal of zyprexa Last Admin: 05/03/23 10:04 Dose: 10 mg Polyethylene Glycol (Polyethylene Glycol 3350 17 Gm Powd.Pack) 17 gm PO DAILY PRN PRN Reason: Constipation Rilpivirine (Rilpivirine Hcl 25 Mg Tablet) 25 mg PO DAILY [facility] Last Admin: 05/04/23 10:24 Dose: Not Given Thiamine HCl (Thiamine Hcl 100 Mg Tablet) 100 mg PO DAILY [facility] Last Admin: 05/04/23 10:24 Dose: Not Given Trazodone HCl (Trazodone Hcl 25 Mg Halftab) 25 mg PO BEDTIME MRX1 PRN PRN Reason: Insomnia Last Admin: 04/30/23 19:56 Dose: 25 mg Allergies Allergies Allergy/AdvReac Type Severity Reaction Status Date / Time No Known Allergies Allergy Unverified 01/28/20 16:07 [No Known Allergies*] Assessment & Plan Assessment & Plan (1) Dementia: Status: Acute Code(s): F03.90 - Unspecified dementia, unspecified severity, without behavioral disturbance, psychotic disturbance, mood disturbance, and anxiety (2) Schizoaffective disorder, bipolar type: Status: Acute Code(s): F25.0 - Schizoaffective disorder, bipolar type Plan the patient is an elderly male with a past history of schizoaffective disorder and dementia who was brought from his rest home for exacerbation of psychosis, disorganized behavior and inappropriate sexual behavior with exit seeking behavior due to noncompliance for several days with his medications. The patient is unable to provide any more details due to his advanced dementia. 04/13/23- Given Haldol 5 mg, Ativan 2 mg during the night for severe aggressive agitation as Olanzapine was not effective. Today, sedate- change prn's to Haldol 1 mg tid prn and Ativan 0.25 mg tid prn 04/14/23- Agitated. Olanzapine prn has not been effective per team Discontinue Lorazapem 0.25 mg tid prn Increase Depakote to 250 mg bid Consider possibly replacing Keppra with Depakote with further titration if tolerated as it should provide improved mood control. 04/24 Patient remains delusional and can still get agitated but staff reports he seems to be coming down more. Taking his medications. On approach patient said he wanted to talk to production underwriter, wanted to know why he was transferred to this hospital since he was real listing in the [employer] in the [place] 04/27 continue current treatment plan 04/28 continue current tx plan 04/30- continue tx. 05/01 continue same treatment. 05/02 continue same treatment 05/04/2023 Continue plan of care somewhat less aggressive Reason for continued inpatient stay Substantial Risk for: harm to others and rapid decompensation Time Spent With Patient Time: Total time managing care of this patient today ____ minutes.
[2023-05-05 06:00] VITALS: BP 111/76; PULSE 113; RESP 20; TEMP 36.6; O2SAT 98
[2023-05-05] MEDS: OLANZapine 5 MG TABLET PO ×2 (08:27→13:36)
[2023-05-05 18:00] VITALS: BP 91/53; PULSE 100; RESP 16; TEMP 36.5; O2SAT 97
[2023-05-05] MEDS: OLANZapine 10 MG TABLET PO (20:35)
--- NOTE | 2023-05-05 21:46 | P.PNPSI_ITS ---
Subjective Subjective Date of Service: 05/05/23 Reason For Visit: agressive behavior Subjective Notes: [place] Order Interim History: Patient irritable uses the agitated has been paranoid he is taking olanzapine per court order Mental Status Exam Mental Status Exam Patient Appearance: Appropriate Patient Orientation: Person and Situation Level of Consciousness: Awake Patient Behavior: Guarded and Passive Mood Description: Withdrawn Affect Description: Constricted Patient Cognition Impaired: Yes Ability to Follow Directions: Good Speech Pattern: Clear Hallucinations: None Delusions: Paranoid Ideation Thought Process: Distracted Thought Content: positive for [place] and positive for Poverty of Content Judgement: Fair Diagnostics Vital Signs (24Hr): Vital Signs - 24 hr 05/05/23 06:00 05/05/23 18:00 Temperature 97.9 F 97.7 F Pulse Rate 113 H 100 Respiratory Rate 20 16 Blood Pressure 111/76 91/53 L Pulse Oximetry 98 97 Oxygen Delivery Method Room Air Room Air BMI result Body Mass Index 15.5 Labs 04/07/23 23:41 04/07/23 23:41 Imaging Radiology Impressions: ITS Impressions Chest X-Ray 04/10/23 09:25 IMPRESSION: There is bulky-focal very mild linear scar/subsegmental atelectasis in the mid to lower left lung, likely related gaseous distention of the stomach. Chest X-Ray 04/19/23 09:15 IMPRESSION: Question left base infiltrate. Air-filled distended stomach and bowel. Medications Medications Current Medications Acetaminophen (Acetaminophen 325 Mg Tablet) 650 mg PO Q6H PRN PRN Reason: Pain (Scale Score 1-3) Last Admin: 04/26/23 23:21 Dose: 650 mg Acetaminophen (Acetaminophen 325 Mg Tablet) 650 mg PO Q6H PRN PRN Reason: Headache/Pain Mild Scale (1-3) Last Admin: 04/17/23 04:11 Dose: 650 mg Al Hydroxide/Mg Hydroxide (Magnesium Hydrox/Alum Hydrox 30 Ml Oral.Susp) 30 ml PO Q6H PRN PRN Reason: Heartburn/Nausea Divalproex Sodium (Divalproex Sodium 250 Mg Tablet.Dr) 250 mg PO TID [facility] Last Admin: 05/05/23 13:38 Dose: Not Given Emtricitabine/Tenofovir Alafenamide (Emtricitabine/Tenofov Alafenam Tablet) 1 tab PO DAILY [facility] Last Admin: 05/05/23 08:27 Dose: Not Given Haloperidol (Haloperidol 1 Mg Tablet) 1 mg PO TID PRN PRN Reason: psychotic agitation Last Admin: 04/26/23 23:22 Dose: 1 mg Haloperidol (Haloperidol 5 Mg Tablet) 5 mg PO BID [facility] Last Admin: 05/05/23 20:42 Dose: Not Given Haloperidol Decanoate (Haloperidol Decanoate 50 Mg/Ml Vial) 100 mg IM Q28D [facility] Last Admin: 05/02/23 18:26 Dose: 100 mg Levetiracetam (Levetiracetam 500 Mg Tablet) 500 mg PO BID [facility] Last Admin: 05/05/23 20:42 Dose: Not Given Lorazepam (Lorazepam 1 Mg Tablet) 1 mg PO Q4H PRN PRN Reason: anxiety/agitation Last Admin: 05/04/23 20:42 Dose: 1 mg Magnesium Hydroxide (Milk Of Magnesia 30 Ml Oral.Susp) 30 ml PO DAILY PRN PRN Reason: Constipation Last Admin: 04/24/23 05:23 Dose: 30 ml Mirtazapine (Mirtazapine 15 Mg Tablet) 15 mg PO BEDTIME [facility] Last Admin: 05/05/23 20:42 Dose: Not Given Olanzapine (Olanzapine 5 Mg Tablet) 5 mg PO TID PRN PRN Reason: agitation Last Admin: 04/26/23 23:22 Dose: 5 mg Olanzapine (Olanzapine 5 Mg Tablet) 5 mg PO BID@0830,1330 [facility] Last Admin: 05/05/23 13:36 Dose: 5 mg Olanzapine (Olanzapine 10 Mg Tablet) 10 mg PO BEDTIME [facility] Last Admin: 05/05/23 20:35 Dose: 10 mg Olanzapine (Olanzapine 10 Mg Vial) 10 mg IM TID PRN PRN Reason: refusal of zyprexa Last Admin: 05/03/23 10:04 Dose: 10 mg Polyethylene Glycol (Polyethylene Glycol 3350 17 Gm Powd.Pack) 17 gm PO DAILY PRN PRN Reason: Constipation Rilpivirine (Rilpivirine Hcl 25 Mg Tablet) 25 mg PO DAILY [facility] Last Admin: 05/05/23 08:28 Dose: Not Given Thiamine HCl (Thiamine Hcl 100 Mg Tablet) 100 mg PO DAILY [facility] Last Admin: 05/05/23 08:28 Dose: Not Given Trazodone HCl (Trazodone Hcl 25 Mg Halftab) 25 mg PO BEDTIME MRX1 PRN PRN Reason: Insomnia Last Admin: 04/30/23 19:56 Dose: 25 mg Allergies Allergies Allergy/AdvReac Type Severity Reaction Status Date / Time No Known Allergies Allergy Unverified 01/28/20 16:07 [No Known Allergies*] Assessment & Plan Assessment & Plan (1) Dementia: Status: Acute Code(s): F03.90 - Unspecified dementia, unspecified severity, without behavioral disturbance, psychotic disturbance, mood disturbance, and anxiety (2) Schizoaffective disorder, bipolar type: Status: Acute Code(s): F25.0 - Schizoaffective disorder, bipolar type Plan the patient is an elderly male with a past history of schizoaffective disorder and dementia who was brought from his rest home for exacerbation of psychosis, disorganized behavior and inappropriate sexual behavior with exit seeking behavior due to noncompliance for several days with his medications. The patient is unable to provide any more details due to his advanced dementia. 04/13/23- Given Haldol 5 mg, Ativan 2 mg during the night for severe aggressive agitation as Olanzapine was not effective. Today, sedate- change prn's to Haldol 1 mg tid prn and Ativan 0.25 mg tid prn 04/14/23- Agitated. Olanzapine prn has not been effective per team Discontinue Lorazapem 0.25 mg tid prn Increase Depakote to 250 mg bid Consider possibly replacing Keppra with Depakote with further titration if tolerated as it should provide improved mood control. 04/24 Patient remains delusional and can still get agitated but staff reports he seems to be coming down more. Taking his medications. On approach patient said he wanted to talk to newswriter, wanted to know why he was transferred to this hospital since he was real [facility] the [employer] in the [place] 04/27 continue current treatment plan 04/28 continue current tx plan 04/30- continue tx. 05/01 continue same treatment. 05/02 continue same treatment 05/04/2023 Continue plan of care somewhat less aggressive 05/05/2023 Continue plan of care continue Zyprexa Reason for continued inpatient stay Substantial Risk for: harm to others, inability to function and rapid decompensation Time Spent With Patient Time: Total time managing care of this patient today ____ minutes.
[2023-05-06 08:45] VITALS: RESP 18
[2023-05-06] MEDS: OLANZapine 5 MG TABLET PO ×2 (09:46→13:57)
[2023-05-06] MEDS: HaloperidoL 5 MG TABLET PO ×2 (10:04→22:03)
--- NOTE | 2023-05-06 15:05 | P.PNPSI_ITS ---
Subjective Subjective Date of Service: 05/06/23 Reason For Visit: agressive behavior Subjective Notes: Conditional Voluntary Interim History: Pt is aggressive and threatening when attempt to engage taking olanzapine but not other meds Medication Compliance: Intermittent Attending Groups: No Mental Status Exam Mental Status Exam Patient Appearance: Appropriate Patient Orientation: Person and Situation Level of Consciousness: Awake Patient Behavior: Guarded Mood Description: Withdrawn Affect Description: Constricted Patient Cognition Impaired: Yes Ability to Follow Directions: Good Speech Pattern: Clear Memory Description: Remote Impaired Diagnostics Vital Signs (24Hr): Vital Signs - 24 hr 05/05/23 18:00 05/06/23 08:45 Temperature 97.7 F Pulse Rate 100 Respiratory Rate 16 18 Blood Pressure 91/53 L Pulse Oximetry 97 Oxygen Delivery Method Room Air BMI result Body Mass Index 15.5 Labs 04/07/23 23:41 04/07/23 23:41 Imaging Radiology Impressions: ITS Impressions Chest X-Ray 04/10/23 09:25 IMPRESSION: There is bulky-focal very mild linear scar/subsegmental atelectasis in the mid to lower left lung, likely related gaseous distention of the stomach. Chest X-Ray 04/19/23 09:15 IMPRESSION: Question left base infiltrate. Air-filled distended stomach and bowel. Medications Medications Current Medications Acetaminophen (Acetaminophen 325 Mg Tablet) 650 mg PO Q6H PRN PRN Reason: Pain (Scale Score 1-3) Last Admin: 04/26/23 23:21 Dose: 650 mg Acetaminophen (Acetaminophen 325 Mg Tablet) 650 mg PO Q6H PRN PRN Reason: Headache/Pain Mild Scale (1-3) Last Admin: 04/17/23 04:11 Dose: 650 mg Al Hydroxide/Mg Hydroxide (Magnesium Hydrox/Alum Hydrox 30 Ml Oral.Susp) 30 ml PO Q6H PRN PRN Reason: Heartburn/Nausea Divalproex Sodium (Divalproex Sodium 250 Mg Tablet.Dr) 250 mg PO TID [facility] Last Admin: 05/06/23 13:57 Dose: Not Given Emtricitabine/Tenofovir Alafenamide (Emtricitabine/Tenofov Alafenam Tablet) 1 tab PO DAILY [facility] Last Admin: 05/06/23 10:04 Dose: Not Given Haloperidol (Haloperidol 1 Mg Tablet) 1 mg PO TID PRN PRN Reason: psychotic agitation Last Admin: 12/15/23 23:22 Dose: 1 mg Haloperidol (Haloperidol 5 Mg Tablet) 5 mg PO BID [facility] Last Admin: 05/06/23 10:04 Dose: 5 mg Haloperidol Decanoate (Haloperidol Decanoate 50 Mg/Ml Vial) 100 mg IM Q28D [facility] Last Admin: 05/02/23 18:26 Dose: 100 mg Levetiracetam (Levetiracetam 500 Mg Tablet) 500 mg PO BID [facility] Last Admin: 05/06/23 10:04 Dose: Not Given Lorazepam (Lorazepam 1 Mg Tablet) 1 mg PO Q4H PRN PRN Reason: anxiety/agitation Last Admin: 05/04/23 20:42 Dose: 1 mg Magnesium Hydroxide (Milk Of Magnesia 30 Ml Oral.Susp) 30 ml PO DAILY PRN PRN Reason: Constipation Last Admin: 04/24/23 05:23 Dose: 30 ml Mirtazapine (Mirtazapine 15 Mg Tablet) 15 mg PO BEDTIME [facility] Last Admin: 05/05/23 20:42 Dose: Not Given Olanzapine (Olanzapine 5 Mg Tablet) 5 mg PO TID PRN PRN Reason: agitation Last Admin: 04/26/23 23:22 Dose: 5 mg Olanzapine (Olanzapine 5 Mg Tablet) 5 mg PO BID@0830,1330 [facility] Last Admin: 05/06/23 13:57 Dose: 5 mg Olanzapine (Olanzapine 10 Mg Tablet) 10 mg PO BEDTIME [facility] Last Admin: 05/05/23 20:35 Dose: 10 mg Olanzapine (Olanzapine 10 Mg Vial) 10 mg IM TID PRN PRN Reason: refusal of zyprexa Last Admin: 05/03/23 10:04 Dose: 10 mg Polyethylene Glycol (Polyethylene Glycol 3350 17 Gm Powd.Pack) 17 gm PO DAILY PRN PRN Reason: Constipation Rilpivirine (Rilpivirine Hcl 25 Mg Tablet) 25 mg PO DAILY [facility] Last Admin: 05/06/23 10:04 Dose: Not Given Thiamine HCl (Thiamine Hcl 100 Mg Tablet) 100 mg PO DAILY [facility] Last Admin: 05/06/23 10:04 Dose: Not Given Trazodone HCl (Trazodone Hcl 25 Mg Halftab) 25 mg PO BEDTIME MRX1 PRN PRN Reason: Insomnia Last Admin: 04/30/23 19:56 Dose: 25 mg Allergies Allergies Allergy/AdvReac Type Severity Reaction Status Date / Time No Known Allergies Allergy Unverified 01/28/20 16:07 [No Known Allergies*] Assessment & Plan Assessment & Plan (1) Dementia: Status: Acute Code(s): F03.90 - Unspecified dementia, unspecified severity, without behavioral disturbance, psychotic disturbance, mood disturbance, and anxiety (2) Schizoaffective disorder, bipolar type: Status: Acute Code(s): F25.0 - Schizoaffective disorder, bipolar type Plan the patient is an elderly male with a past history of schizoaffective disorder and dementia who was brought from his rest home for exacerbation of psychosis, disorganized behavior and inappropriate sexual behavior with exit seeking behavior due to noncompliance for several days with his medications. The patient is unable to provide any more details due to his advanced dementia. 04/13/23- Given Haldol 5 mg, Ativan 2 mg during the night for severe aggressive agitation as Olanzapine was not effective. Today, sedate- change prn's to Haldol 1 mg tid prn and Ativan 0.25 mg tid prn 04/14/23- Agitated. Olanzapine prn has not been effective per team Discontinue Lorazapem 0.25 mg tid prn Increase Depakote to 250 mg bid Consider possibly replacing Keppra with Depakote with further titration if tolerated as it should provide improved mood control. 04/24 Patient remains delusional and can still get agitated but staff reports he seems to be coming down more. Taking his medications. On approach patient said he wanted to talk to senior mortgage underwriter, wanted to know why he was transferred to this hospital since he was real listing [facility] the [employer] in the [place] 04/27 continue current treatment plan 04/28 continue current tx plan 04/30- continue tx. 05/01 continue same treatment. 05/02 continue same treatment 05/04/2023 Continue plan of care somewhat less aggressive 05/05/2023 Continue plan of care continue Zyprexa 05/06/23 Cont plan of care no change indicated Informed Consent: does not understand and further education needed Reason for continued inpatient stay Substantial Risk for: harm to others, inability to function and rapid decompensation Time Spent With Patient Time: Total time managing care of this patient today ____ minutes.
--- NOTE | 2023-05-06 15:17 | PC.NURSE ---
Aristeo declined vital signs and to take scheduled medications other than Haldol and Zyprexa. Dr. Hairston notified about VS/meds.
[2023-05-06 18:00] VITALS: BP 126/78; PULSE 89; RESP 16; TEMP 36.6; O2SAT 99
[2023-05-06] MEDS: OLANZapine 10 MG TABLET PO (22:03)
[2023-05-07 08:00] VITALS: BP 119/67; PULSE 97; RESP 18; TEMP 36.7; O2SAT 98
--- NOTE | 2023-05-07 09:30 | P.PNPSI_ITS ---
Subjective Subjective Date of Service: 05/07/23 Reason For Visit: agressive behavior Subjective Notes: Conditional Voluntary Interim History: Pt slept through the night. VS stable. cog neg. Pt guarded and irritable, telling this verse writer get out, I don't need to talk with you! Pt mostly in bed. minimally interacting with peers. takes meds per efren's Review of Systems Review of Systems Yes Unobtainable due to mental status Mental Status Exam Mental Status Exam Patient Appearance: Appropriate Patient Orientation: Person and Situation Level of Consciousness: Awake Patient Behavior: Guarded and Passive Mood Description: Withdrawn Affect Description: Constricted Patient Cognition Impaired: Yes Ability to Follow Directions: Good Speech Pattern: Clear Memory Description: Remote Impaired Diagnostics Vital Signs (24Hr): Vital Signs - 24 hr 05/06/23 18:00 Temperature 97.9 F Pulse Rate 89 Respiratory Rate 16 Blood Pressure 126/78 Pulse Oximetry 99 Oxygen Delivery Method Room Air BMI result Body Mass Index 15.5 Labs 04/07/23 23:41 04/07/23 23:41 Imaging Radiology Impressions: ITS Impressions Chest X-Ray 04/10/23 09:25 IMPRESSION: There is bulky-focal very mild linear scar/subsegmental atelectasis in the mid to lower left lung, likely related gaseous distention of the stomach. Chest X-Ray 04/19/23 09:15 IMPRESSION: Question left base infiltrate. Air-filled distended stomach and bowel. Medications Medications Current Medications Acetaminophen (Acetaminophen 325 Mg Tablet) 650 mg PO Q6H PRN PRN Reason: Pain (Scale Score 1-3) Last Admin: 04/26/23 23:21 Dose: 650 mg Acetaminophen (Acetaminophen 325 Mg Tablet) 650 mg PO Q6H PRN PRN Reason: Headache/Pain Mild Scale (1-3) Last Admin: 04/17/23 04:11 Dose: 650 mg Al Hydroxide/Mg Hydroxide (Magnesium Hydrox/Alum Hydrox 30 Ml Oral.Susp) 30 ml PO Q6H PRN PRN Reason: Heartburn/Nausea Divalproex Sodium (Divalproex Sodium 250 Mg Tablet.Dr) 250 mg PO TID [facility] Last Admin: 05/06/23 22:08 Dose: Not Given Emtricitabine/Tenofovir Alafenamide (Emtricitabine/Tenofov Alafenam Tablet) 1 tab PO DAILY [facility] Last Admin: 05/06/23 10:04 Dose: Not Given Haloperidol (Haloperidol 1 Mg Tablet) 1 mg PO TID PRN PRN Reason: psychotic agitation Last Admin: 04/26/23 23:22 Dose: 1 mg Haloperidol (Haloperidol 5 Mg Tablet) 5 mg PO BID [facility] Last Admin: 05/06/23 22:03 Dose: 5 mg Haloperidol Decanoate (Haloperidol Decanoate 50 Mg/Ml Vial) 100 mg IM Q28D [facility] Last Admin: 05/02/23 18:26 Dose: 100 mg Levetiracetam (Levetiracetam 500 Mg Tablet) 500 mg PO BID [facility] Last Admin: 05/06/23 22:08 Dose: Not Given Lorazepam (Lorazepam 1 Mg Tablet) 1 mg PO Q4H PRN PRN Reason: anxiety/agitation Last Admin: 05/04/23 20:42 Dose: 1 mg Magnesium Hydroxide (Milk Of Magnesia 30 Ml Oral.Susp) 30 ml PO DAILY PRN PRN Reason: Constipation Last Admin: 04/24/23 05:23 Dose: 30 ml Mirtazapine (Mirtazapine 15 Mg Tablet) 15 mg PO BEDTIME [facility] Last Admin: 05/06/23 22:08 Dose: Not Given Olanzapine (Olanzapine 5 Mg Tablet) 5 mg PO TID PRN PRN Reason: agitation Last Admin: 04/26/23 23:22 Dose: 5 mg Olanzapine (Olanzapine 5 Mg Tablet) 5 mg PO BID@0830,1330 [facility] Last Admin: 05/06/23 13:57 Dose: 5 mg Olanzapine (Olanzapine 10 Mg Tablet) 10 mg PO BEDTIME [facility] Last Admin: 05/06/23 22:03 Dose: 10 mg Olanzapine (Olanzapine 10 Mg Vial) 10 mg IM TID PRN PRN Reason: refusal of zyprexa Last Admin: 05/03/23 10:04 Dose: 10 mg Polyethylene Glycol (Polyethylene Glycol 3350 17 Gm Powd.Pack) 17 gm PO DAILY PRN PRN Reason: Constipation Rilpivirine (Rilpivirine Hcl 25 Mg Tablet) 25 mg PO DAILY [facility] Last Admin: 05/06/23 10:04 Dose: Not Given Thiamine HCl (Thiamine Hcl 100 Mg Tablet) 100 mg PO DAILY [facility] Last Admin: 05/06/23 10:04 Dose: Not Given Trazodone HCl (Trazodone Hcl 25 Mg Halftab) 25 mg PO BEDTIME MRX1 PRN PRN Reason: Insomnia Last Admin: 04/30/23 19:56 Dose: 25 mg Allergies Allergies Allergy/AdvReac Type Severity Reaction Status Date / Time No Known Allergies Allergy Unverified 01/28/20 16:07 [No Known Allergies*] Assessment & Plan Assessment & Plan (1) Dementia: Status: Acute Code(s): F03.90 - Unspecified dementia, unspecified severity, without behavioral disturbance, psychotic disturbance, mood disturbance, and anxiety (2) Schizoaffective disorder, bipolar type: Status: Acute Code(s): F25.0 - Schizoaffective disorder, bipolar type Plan the patient is an elderly male with a past history of schizoaffective disorder and dementia who was brought from his rest home for exacerbation of psychosis, disorganized behavior and inappropriate sexual behavior with exit seeking behavior due to noncompliance for several days with his medications. The patient is unable to provide any more details due to his advanced dementia. 04/13/23- Given Haldol 5 mg, Ativan 2 mg during the night for severe aggressive agitation as Olanzapine was not effective. Today, sedate- change prn's to Haldol 1 mg tid prn and Ativan 0.25 mg tid prn 04/14/23- Agitated. Olanzapine prn has not been effective per team Discontinue Lorazapem 0.25 mg tid prn Increase Depakote to 250 mg bid Consider possibly replacing Keppra with Depakote with further titration if tolerated as it should provide improved mood control. 04/24 Patient remains delusional and can still get agitated but staff reports he seems to be coming down more. Taking his medications. On approach patient said he wanted to talk to verse writer, wanted to know why he was transferred to this hospital since he was real listing in the [employer] in the [place] 04/27 continue current treatment plan 04/28 continue current tx plan 04/30- continue tx. 05/01 continue same treatment. 05/02 continue same treatment 05/04/2023 Continue plan of care somewhat less aggressive 05/05/2023 Continue plan of care continue Zyprexa 05/07 continue tx. Reason for continued inpatient stay Substantial Risk for: inability to function Time Spent With Patient Time: Total time managing care of this patient today ____ minutes.
[2023-05-07] MEDS: OLANZapine 5 MG TABLET PO ×2 (09:45→14:31)
[2023-05-07] MEDS: HaloperidoL 5 MG TABLET PO (09:46)
[2023-05-07] MEDS: Thiamine HCL 100 MG TABLET PO (09:46)
[2023-05-07] MEDS: Rilpivirine HCL 25 MG TABLET PO (09:46)
[2023-05-07] MEDS: levETIRAcetam 500 MG TABLET PO (09:47)
[2023-05-07] MEDS: Divalproex Sodium 250 MG TABLET.DR PO ×2 (09:47→14:31)
[2023-05-07] MEDS: Emtricitabine/Tenofov Alafenam TABLET 1 TAB PO (09:50)
[2023-05-07 18:00] VITALS: BP 112/61; PULSE 86; RESP 20; TEMP 36.2; O2SAT 99
[2023-05-07] MEDS: OLANZapine 10 MG VIAL IM (20:51)
[2023-05-08 08:00] VITALS: BP 124/72; PULSE 82; RESP 18; TEMP 37.1; O2SAT 98
[2023-05-08] MEDS: Thiamine HCL 100 MG TABLET PO (08:19)
[2023-05-08] MEDS: OLANZapine 5 MG TABLET PO ×2 (08:19→14:07)
[2023-05-08] MEDS: levETIRAcetam 500 MG TABLET PO ×2 (08:19→20:09)
[2023-05-08] MEDS: Rilpivirine HCL 25 MG TABLET PO (08:19)
[2023-05-08] MEDS: HaloperidoL 5 MG TABLET PO ×2 (08:19→20:09)
[2023-05-08] MEDS: Emtricitabine/Tenofov Alafenam TABLET 1 TAB PO (08:19)
[2023-05-08] MEDS: Divalproex Sodium 250 MG TABLET.DR PO ×3 (08:19→20:09)
--- NOTE | 2023-05-08 11:27 | MHC.CLN ---
F/U DIET=REGULAR. MAGIC CUP ADDED BID TO INCREASE CALORIC INTAKE. PROVIDES 580 KCALS, 18 G PROTEIN. VARIABLE INTAKE CONTINUES. MOST MEALS X 3 DAYS=50-100%. NO NEW WEIGHTS. FOLLOW FOR INTAKE AND WEIGHT. ENCOURAGE INTAKE ABLE. RD TO FOLLOW UP WEEKLY.
[2023-05-08 15:27] LABS: COVID-19 Test Negative (Negative); IDNOW Serial# BCCEAD1C
--- NOTE | 2023-05-08 16:08 | P.PNPSI_ITS ---
Subjective Subjective Date of Service: 05/08/23 Reason For Visit: agressive behavior Subjective Notes: Pedraza Order and Conditional Voluntary Interim History: The nursing staff reported the patient took his medications without IM backup for the last 48 hours. The pediatric social worker reported that [facility] going to [facility] him to retake him. Probably discharge tomorrow. The occupational therapist reported that his of a 1 intrusive but it seems that it is his baseline. His out for meals and he watch TV but he does not attend groups. On interview the patient is pleasant cooperative perseverative at times, no aggressive behavior Mental Status Exam Mental Status Exam Patient Appearance: Appropriate and Unkempt Patient Orientation: Person Level of Consciousness: Awake Patient Behavior: Guarded and Passive Mood Description: Withdrawn Affect Description: Constricted Patient Cognition Impaired: Yes Ability to Follow Directions: Good Speech Pattern: Impoverished and Spontaneous Speech Hallucinations: None Delusions: Paranoid Ideation and Ideas of Reference Thought Process: Distracted Thought Content: positive for [place] and positive for Poverty of Content Judgement: Poor Diagnostics Vital Signs (24Hr): Vital Signs - 24 hr 05/07/23 18:00 05/08/23 08:00 Temperature 97.1 F 98.7 F Pulse Rate 86 82 Respiratory Rate 20 18 Blood Pressure 112/61 124/72 Pulse Oximetry 99 98 Oxygen Delivery Method Room Air BMI result Body Mass Index 15.5 Labs 04/07/23 23:41 04/07/23 23:41 Labs: Laboratory Results - last 48 hr 05/08/23 15:00 COVID-19 ([facility]) Negative COVID-19 Clin Com See Note Imaging Radiology Impressions: ITS Impressions Chest X-Ray 04/10/23 09:25 IMPRESSION: There is bulky-focal very mild linear scar/subsegmental atelectasis in the mid to lower left lung, likely related gaseous distention of the stomach. Chest X-Ray 04/19/23 09:15 IMPRESSION: Question left base infiltrate. Air-filled distended stomach and bowel. Medications Medications Current Medications Acetaminophen (Acetaminophen 325 Mg Tablet) 650 mg PO Q6H PRN PRN Reason: Pain (Scale Score 1-3) Last Admin: 04/26/23 23:21 Dose: 650 mg Acetaminophen (Acetaminophen 325 Mg Tablet) 650 mg PO Q6H PRN PRN Reason: Headache/Pain Mild Scale (1-3) Last Admin: 04/17/23 04:11 Dose: 650 mg Al Hydroxide/Mg Hydroxide (Magnesium Hydrox/Alum Hydrox 30 Ml Oral.Susp) 30 ml PO Q6H PRN PRN Reason: Heartburn/Nausea Divalproex Sodium (Divalproex Sodium 250 Mg Tablet.Dr) 250 mg PO TID [facility] Last Admin: 05/08/23 14:07 Dose: 250 mg Emtricitabine/Tenofovir Alafenamide (Emtricitabine/Tenofov Alafenam Tablet) 1 tab PO DAILY [facility] Last Admin: 05/08/23 08:19 Dose: 1 tab Haloperidol (Haloperidol 1 Mg Tablet) 1 mg PO TID PRN PRN Reason: psychotic agitation Last Admin: 04/26/23 23:22 Dose: 1 mg Haloperidol (Haloperidol 5 Mg Tablet) 5 mg PO BID [facility] Last Admin: 05/08/23 08:19 Dose: 5 mg Haloperidol Decanoate (Haloperidol Decanoate 50 Mg/Ml Vial) 100 mg IM Q28D [facility] Last Admin: 05/02/23 18:26 Dose: 100 mg Levetiracetam (Levetiracetam 500 Mg Tablet) 500 mg PO BID [facility] Last Admin: 05/08/23 08:19 Dose: 500 mg Lorazepam (Lorazepam 1 Mg Tablet) 1 mg PO Q4H PRN PRN Reason: anxiety/agitation Last Admin: 05/04/23 20:42 Dose: 1 mg Magnesium Hydroxide (Milk Of Magnesia 30 Ml Oral.Susp) 30 ml PO DAILY PRN PRN Reason: Constipation Last Admin: 04/24/23 05:23 Dose: 30 ml Mirtazapine (Mirtazapine 15 Mg Tablet) 15 mg PO BEDTIME [facility] Last Admin: 05/07/23 20:44 Dose: Not Given Olanzapine (Olanzapine 5 Mg Tablet) 5 mg PO TID PRN PRN Reason: agitation Last Admin: 04/26/23 23:22 Dose: 5 mg Olanzapine (Olanzapine 5 Mg Tablet) 5 mg PO BID@0830,1330 [facility] Last Admin: 05/08/23 14:07 Dose: 5 mg Olanzapine (Olanzapine 10 Mg Tablet) 10 mg PO BEDTIME [facility] Last Admin: 05/07/23 20:44 Dose: Not Given Olanzapine (Olanzapine 10 Mg Vial) 10 mg IM TID PRN PRN Reason: refusal of zyprexa Last Admin: 12/26/23 20:51 Dose: 10 mg Polyethylene Glycol (Polyethylene Glycol 3350 17 Gm Powd.Pack) 17 gm PO DAILY PRN PRN Reason: Constipation Rilpivirine (Rilpivirine Hcl 25 Mg Tablet) 25 mg PO DAILY [facility] Last Admin: 05/08/23 08:19 Dose: 25 mg Thiamine HCl (Thiamine Hcl 100 Mg Tablet) 100 mg PO DAILY [facility] Last Admin: 05/08/23 08:19 Dose: 100 mg Trazodone HCl (Trazodone Hcl 25 Mg Halftab) 25 mg PO BEDTIME MRX1 PRN PRN Reason: Insomnia Last Admin: 04/30/23 19:56 Dose: 25 mg Allergies Allergies Allergy/AdvReac Type Severity Reaction Status Date / Time No Known Allergies Allergy Unverified 01/28/20 16:07 [No Known Allergies*] Assessment & Plan Assessment & Plan (1) Dementia: Status: Acute Code(s): F03.90 - Unspecified dementia, unspecified severity, without behavioral disturbance, psychotic disturbance, mood disturbance, and anxiety (2) Schizoaffective disorder, bipolar type: Status: Acute Code(s): F25.0 - Schizoaffective disorder, bipolar type Plan the patient is an elderly male with a past history of schizoaffective disorder and dementia who was brought from his rest home for exacerbation of psychosis, disorganized behavior and inappropriate sexual behavior with exit seeking behavior due to noncompliance for several days with his medications. The patient is unable to provide any more details due to his advanced dementia. Plan 1. Continue with Zyprexa prescribed 3 times a day. 2. Continue with Haldol increased. 3. Reassessment results. Reason for continued inpatient stay Substantial Risk for: inability to function, rapid decompensation and med/psych decompensation Time Spent With Patient Time: Total time managing care of this patient today __20__ minutes.
[2023-05-08 19:30] VITALS: BP 123/79; PULSE 96; RESP 18; TEMP 36.1; O2SAT 98
[2023-05-08] MEDS: Mirtazapine 15 MG TABLET PO (20:09)
[2023-05-08] MEDS: OLANZapine 10 MG TABLET PO (20:09)
[2023-05-09 07:00] VITALS: BMI 15.1
[2023-05-09 07:55] VITALS: BP 151/72; PULSE 90; RESP 18; TEMP 36.6; O2SAT 97
[2023-05-09] MEDS: Emtricitabine/Tenofov Alafenam TABLET 1 TAB PO (08:40)
[2023-05-09] MEDS: levETIRAcetam 500 MG TABLET PO ×2 (08:40→20:45)
[2023-05-09] MEDS: Rilpivirine HCL 25 MG TABLET PO (08:40)
[2023-05-09] MEDS: Thiamine HCL 100 MG TABLET PO (08:40)
[2023-05-09] MEDS: HaloperidoL 5 MG TABLET PO ×2 (08:40→20:45)
[2023-05-09] MEDS: Divalproex Sodium 250 MG TABLET.DR PO ×3 (08:40→20:45)
[2023-05-09] MEDS: OLANZapine 5 MG TABLET PO ×2 (08:40→13:14)
--- NOTE | 2023-05-09 09:24 | P.PNPSI_ITS ---
Subjective Subjective Date of Service: 05/09/23 Reason For Visit: agressive behavior Subjective Notes: Pedraza Order and Conditional Voluntary Interim History: The nursing staff reported the patient had been on good behavior control. He slept well last night. The older adult social work specialist reported that administrative staff of the home will not come until May 14. On interview the patient denies new symptoms, chronically mentally ill pleasant and cooperative, easily redirectable. Mental Status Exam Mental Status Exam Patient Appearance: Well Grooomed and Appropriate Patient Orientation: Person and Situation Level of Consciousness: Awake and Appropriate Patient Behavior: Guarded and Passive Mood Description: Withdrawn Affect Description: Constricted Patient Cognition Impaired: Yes Ability to Follow Directions: Good Speech Pattern: Clear Hallucinations: None Delusions: Ideas of Reference Thought Process: Incoherent and Slowed Thinking Thought Content: positive for [place] and positive for Poverty of Content Judgement: Poor Diagnostics Vital Signs (24Hr): Vital Signs - 24 hr 05/08/23 19:30 05/09/23 07:55 Temperature 97.0 F 97.9 F Pulse Rate 96 90 Respiratory Rate 18 18 Blood Pressure 123/79 151/72 H Pulse Oximetry 98 97 Oxygen Delivery Method Room Air Room Air BMI result Body Mass Index 15.5 Labs 04/07/23 23:41 04/07/23 23:41 Labs: Laboratory Results - last 48 hr 05/08/23 15:00 COVID-19 ([facility]) Negative COVID-19 Clin Com See Note Imaging Radiology Impressions: ITS Impressions Chest X-Ray 04/10/23 09:25 IMPRESSION: There is bulky-focal very mild linear scar/subsegmental atelectasis in the mid to lower left lung, likely related gaseous distention of the stomach. Chest X-Ray 04/19/23 09:15 IMPRESSION: Question left base infiltrate. Air-filled distended stomach and bowel. Medications Medications Current Medications Acetaminophen (Acetaminophen 325 Mg Tablet) 650 mg PO Q6H PRN PRN Reason: Pain (Scale Score 1-3) Last Admin: 04/26/23 23:21 Dose: 650 mg Acetaminophen (Acetaminophen 325 Mg Tablet) 650 mg PO Q6H PRN PRN Reason: Headache/Pain Mild Scale (1-3) Last Admin: 04/17/23 04:11 Dose: 650 mg Al Hydroxide/Mg Hydroxide (Magnesium Hydrox/Alum Hydrox 30 Ml Oral.Susp) 30 ml PO Q6H PRN PRN Reason: Heartburn/Nausea Divalproex Sodium (Divalproex Sodium 250 Mg Tablet.Dr) 250 mg PO TID [facility] Last Admin: 05/09/23 08:40 Dose: 250 mg Emtricitabine/Tenofovir Alafenamide (Emtricitabine/Tenofov Alafenam Tablet) 1 tab PO DAILY [facility] Last Admin: 05/09/23 08:40 Dose: 1 tab Haloperidol (Haloperidol 1 Mg Tablet) 1 mg PO TID PRN PRN Reason: psychotic agitation Last Admin: 04/26/23 23:22 Dose: 1 mg Haloperidol (Haloperidol 5 Mg Tablet) 5 mg PO BID [facility] Last Admin: 05/09/23 08:40 Dose: 5 mg Haloperidol Decanoate (Haloperidol Decanoate 50 Mg/Ml Vial) 100 mg IM Q28D [facility] Last Admin: 05/02/23 18:26 Dose: 100 mg Levetiracetam (Levetiracetam 500 Mg Tablet) 500 mg PO BID [facility] Last Admin: 05/09/23 08:40 Dose: 500 mg Lorazepam (Lorazepam 1 Mg Tablet) 1 mg PO Q4H PRN PRN Reason: anxiety/agitation Last Admin: 05/04/23 20:42 Dose: 1 mg Magnesium Hydroxide (Milk Of Magnesia 30 Ml Oral.Susp) 30 ml PO DAILY PRN PRN Reason: Constipation Last Admin: 04/24/23 05:23 Dose: 30 ml Mirtazapine (Mirtazapine 15 Mg Tablet) 15 mg PO BEDTIME [facility] Last Admin: 05/08/23 20:09 Dose: 15 mg Olanzapine (Olanzapine 5 Mg Tablet) 5 mg PO TID PRN PRN Reason: agitation Last Admin: 04/26/23 23:22 Dose: 5 mg Olanzapine (Olanzapine 5 Mg Tablet) 5 mg PO BID@0830,1330 [facility] Last Admin: 05/09/23 08:40 Dose: 5 mg Olanzapine (Olanzapine 10 Mg Tablet) 10 mg PO BEDTIME [facility] Last Admin: 05/08/23 20:09 Dose: 10 mg Olanzapine (Olanzapine 10 Mg Vial) 10 mg IM TID PRN PRN Reason: refusal of zyprexa Last Admin: 05/07/23 20:51 Dose: 10 mg Polyethylene Glycol (Polyethylene Glycol 3350 17 Gm Powd.Pack) 17 gm PO DAILY PRN PRN Reason: Constipation Rilpivirine (Rilpivirine Hcl 25 Mg Tablet) 25 mg PO DAILY [facility] Last Admin: 05/09/23 08:40 Dose: 25 mg Thiamine HCl (Thiamine Hcl 100 Mg Tablet) 100 mg PO DAILY [facility] Last Admin: 05/09/23 08:40 Dose: 100 mg Trazodone HCl (Trazodone Hcl 25 Mg Halftab) 25 mg PO BEDTIME MRX1 PRN PRN Reason: Insomnia Last Admin: 04/30/23 19:56 Dose: 25 mg Allergies Allergies Allergy/AdvReac Type Severity Reaction Status Date / Time No Known Allergies Allergy Unverified 01/28/20 16:07 [No Known Allergies*] Assessment & Plan Assessment & Plan (1) Dementia: Status: Acute Code(s): F03.90 - Unspecified dementia, unspecified severity, without behavioral disturbance, psychotic disturbance, mood disturbance, and anxiety (2) Schizoaffective disorder, bipolar type: Status: Acute Code(s): F25.0 - Schizoaffective disorder, bipolar type Plan the patient is an elderly male with a past history of schizoaffective disorder and dementia who was brought from his rest home for exacerbation of psychosis, disorganized behavior and inappropriate sexual behavior with exit seeking behavior due to noncompliance for several days with his medications. The patient is unable to provide any more details due to his advanced dementia. Plan 1. Continue with Zyprexa prescribed 3 times a day. 2. Continue with Haldol increased. 3. Reassessment results. Reason for continued inpatient stay Substantial Risk for: inability to function, rapid decompensation and med/psych decompensation Time Spent With Patient Time: Total time managing care of this patient today __20__ minutes.
[2023-05-09 19:30] VITALS: BP 114/77; PULSE 92; RESP 18; TEMP 36.1; O2SAT 98
[2023-05-09] MEDS: Mirtazapine 15 MG TABLET PO (20:45)
[2023-05-09] MEDS: OLANZapine 10 MG TABLET PO (20:45)
[2023-05-09] MEDS: traZODone HCL 25 MG HALFTAB PO (20:45)
[2023-05-10 07:55] VITALS: BP 116/72; PULSE 92; RESP 18; TEMP 36.6; O2SAT 98
[2023-05-10] MEDS: HaloperidoL 5 MG TABLET PO ×2 (08:45→20:42)
[2023-05-10] MEDS: Emtricitabine/Tenofov Alafenam TABLET 1 TAB PO (08:45)
[2023-05-10] MEDS: levETIRAcetam 500 MG TABLET PO ×2 (08:45→20:42)
[2023-05-10] MEDS: Thiamine HCL 100 MG TABLET PO (08:45)
[2023-05-10] MEDS: Divalproex Sodium 250 MG TABLET.DR PO ×3 (08:45→20:43)
[2023-05-10] MEDS: Rilpivirine HCL 25 MG TABLET PO (08:45)
[2023-05-10] MEDS: OLANZapine 5 MG TABLET PO ×2 (08:46→14:59)
[2023-05-10 10:18] LABS: COVID-19 Test Negative (Negative); IDNOW Serial# BCCEAD1C
--- NOTE | 2023-05-10 12:32 | HO.PSYCHPN ---
Subjective Subjective Date of Service: 05/10/23 Reason For Visit: agressive behavior Subjective Notes: Conditional Voluntary Interim History: The nursing staff reported the patient slept well he has been fully compliant with treatment. He is usually at baseline in his room isolative pleasant cooperative silly at times. On interview the patient denies new symptoms denies auditory hallucinations Mental Status Exam Mental Status Exam Patient Appearance: Appropriate Patient Orientation: Person and Situation Level of Consciousness: Awake and Appropriate Patient Behavior: Guarded and Passive Mood Description: Withdrawn Affect Description: Constricted Patient Cognition Impaired: Yes Ability to Follow Directions: Good Speech Pattern: Clear Hallucinations: None Delusions: Paranoid Ideation Thought Process: Distracted Thought Content: positive for [place] and positive for Poverty of Content Judgement: Fair Diagnostics Vital Signs (24Hr): Vital Signs - 24 hr 05/09/23 19:30 05/10/23 07:55 Temperature 97.0 F 97.9 F Pulse Rate 92 92 Respiratory Rate 18 18 Blood Pressure 114/77 116/72 Pulse Oximetry 98 98 Oxygen Delivery Method Room Air Room Air BMI result Body Mass Index 15.1 Labs 04/07/23 23:41 04/07/23 23:41 Labs: Laboratory Results - last 48 hr 05/08/23 05/10/23 15:00 09:41 COVID-19 ([facility]) Negative Negative COVID-19 Clin Com See Note See Note Imaging Radiology Impressions: ITS Impressions Chest X-Ray 04/10/23 09:25 IMPRESSION: There is bulky-focal very mild linear scar/subsegmental atelectasis in the mid to lower left lung, likely related gaseous distention of the stomach. Chest X-Ray 04/19/23 09:15 IMPRESSION: Question left base infiltrate. Air-filled distended stomach and bowel. Medications Medications Current Medications Acetaminophen (Acetaminophen 325 Mg Tablet) 650 mg PO Q6H PRN PRN Reason: Pain (Scale Score 1-3) Last Admin: 04/26/23 23:21 Dose: 650 mg Acetaminophen (Acetaminophen 325 Mg Tablet) 650 mg PO Q6H PRN PRN Reason: Headache/Pain Mild Scale (1-3) Last Admin: 04/17/23 04:11 Dose: 650 mg Al Hydroxide/Mg Hydroxide (Magnesium Hydrox/Alum Hydrox 30 Ml Oral.Susp) 30 ml PO Q6H PRN PRN Reason: Heartburn/Nausea Divalproex Sodium (Divalproex Sodium 250 Mg Tablet.Dr) 250 mg PO TID [facility] Last Admin: 05/10/23 08:45 Dose: 250 mg Emtricitabine/Tenofovir Alafenamide (Emtricitabine/Tenofov Alafenam Tablet) 1 tab PO DAILY [facility] Last Admin: 05/10/23 08:45 Dose: 1 tab Haloperidol (Haloperidol 1 Mg Tablet) 1 mg PO TID PRN PRN Reason: psychotic agitation Last Admin: 04/26/23 23:22 Dose: 1 mg Haloperidol (Haloperidol 5 Mg Tablet) 5 mg PO BID [facility] Last Admin: 05/10/23 08:45 Dose: 5 mg Haloperidol Decanoate (Haloperidol Decanoate 50 Mg/Ml Vial) 100 mg IM Q28D [facility] Last Admin: 05/02/23 18:26 Dose: 100 mg Levetiracetam (Levetiracetam 500 Mg Tablet) 500 mg PO BID [facility] Last Admin: 05/10/23 08:45 Dose: 500 mg Lorazepam (Lorazepam 1 Mg Tablet) 1 mg PO Q4H PRN PRN Reason: anxiety/agitation Last Admin: 05/04/23 20:42 Dose: 1 mg Magnesium Hydroxide (Milk Of Magnesia 30 Ml Oral.Susp) 30 ml PO DAILY PRN PRN Reason: Constipation Last Admin: 04/24/23 05:23 Dose: 30 ml Mirtazapine (Mirtazapine 15 Mg Tablet) 15 mg PO BEDTIME [facility] Last Admin: 05/09/23 20:45 Dose: 15 mg Olanzapine (Olanzapine 5 Mg Tablet) 5 mg PO TID PRN PRN Reason: agitation Last Admin: 04/26/23 23:22 Dose: 5 mg Olanzapine (Olanzapine 5 Mg Tablet) 5 mg PO BID@0830,1330 [facility] Last Admin: 05/10/23 08:46 Dose: 5 mg Olanzapine (Olanzapine 10 Mg Tablet) 10 mg PO BEDTIME [facility] Last Admin: 05/09/23 20:45 Dose: 10 mg Olanzapine (Olanzapine 10 Mg Vial) 10 mg IM TID PRN PRN Reason: refusal of zyprexa Last Admin: 05/07/23 20:51 Dose: 10 mg Polyethylene Glycol (Polyethylene Glycol 3350 17 Gm Powd.Pack) 17 gm PO DAILY PRN PRN Reason: Constipation Rilpivirine (Rilpivirine Hcl 25 Mg Tablet) 25 mg PO DAILY [facility] Last Admin: 05/10/23 08:45 Dose: 25 mg Thiamine HCl (Thiamine Hcl 100 Mg Tablet) 100 mg PO DAILY [facility] Last Admin: 05/10/23 08:45 Dose: 100 mg Trazodone HCl (Trazodone Hcl 25 Mg Halftab) 25 mg PO BEDTIME MRX1 PRN PRN Reason: Insomnia Last Admin: 05/09/23 20:45 Dose: 25 mg Allergies Allergies Allergy/AdvReac Type Severity Reaction Status Date / Time No Known Allergies Allergy Unverified 01/28/20 16:07 [No Known Allergies*] Assessment & Plan Assessment & Plan (1) Dementia: Status: Acute Code(s): F03.90 - Unspecified dementia, unspecified severity, without behavioral disturbance, psychotic disturbance, mood disturbance, and anxiety (2) Schizoaffective disorder, bipolar type: Status: Acute Code(s): F25.0 - Schizoaffective disorder, bipolar type Plan the patient is an elderly male with a past history of schizoaffective disorder and dementia who was brought from his rest home for exacerbation of psychosis, disorganized behavior and inappropriate sexual behavior with exit seeking behavior due to noncompliance for several days with his medications. The patient is unable to provide any more details due to his advanced dementia. Plan 1. Continue with Zyprexa prescribed 3 times a day. 2. Continue with Haldol increased. 3. Reassessment results. Reason for continued inpatient stay Substantial Risk for: inability to function, rapid decompensation and med/psych decompensation Time Spent With Patient Time: Total time managing care of this patient today __20__ minutes.
[2023-05-10 18:00] VITALS: BP 122/66; PULSE 97; TEMP 36.2; O2SAT 97
[2023-05-10] MEDS: Mirtazapine 15 MG TABLET PO (20:42)
[2023-05-10] MEDS: OLANZapine 10 MG TABLET PO (20:43)
[2023-05-11 06:00] VITALS: BP 126/80; PULSE 97; RESP 16; TEMP 36.7; O2SAT 99
--- NOTE | 2023-05-11 07:41 | HO.PSYCHPN ---
Subjective Subjective Date of Service: 05/11/23 Reason For Visit: agressive behavior Interim History: my meds are driving me crazy Initially reluctant to meet with provider- but then agreed lied in bed, with shirt up disorganized speech Medication Compliance: Yes Side effects from medications: No (other than driving him crazy ) Attending Groups: No Review of Systems Acute medical concerns: No Medical Review of Systems: unchanged Mental Status Exam Mental Status Exam Patient Appearance: Unkempt Patient Orientation: Person and Place Level of Consciousness: Awake, Restless and Inappropriate Patient Behavior: Talkative, Posturing and Restless Mood Description: Labile Affect Description: Suspicious Patient Cognition Impaired: Yes Ability to Follow Directions: Fair Speech Pattern: Rambling and Inappropriate Hallucinations: None Delusions: Paranoid Ideation Thought Process: Illogical Thought Content: positive for [place] Abnormal Motor Activity Signs and Symptoms: Restlessness Judgement: Poor Diagnostics Vital Signs (24Hr): Vital Signs - 24 hr 05/10/23 07:55 05/10/23 18:00 Temperature 97.9 F 97.1 F Pulse Rate 92 97 Respiratory Rate 18 Blood Pressure 116/72 122/66 Pulse Oximetry 98 97 Oxygen Delivery Method Room Air Room Air BMI result Body Mass Index 15.1 Labs 04/07/23 23:41 04/07/23 23:41 Labs: Laboratory Results - last 48 hr 05/10/23 09:41 COVID-19 ([facility]) Negative COVID-19 Clin Com See Note Imaging Radiology Impressions: ITS Impressions Chest X-Ray 04/10/23 09:25 IMPRESSION: There is bulky-focal very mild linear scar/subsegmental atelectasis in the mid to lower left lung, likely related gaseous distention of the stomach. Chest X-Ray 04/19/23 09:15 IMPRESSION: Question left base infiltrate. Air-filled distended stomach and bowel. Medications Medications Current Medications Acetaminophen (Acetaminophen 325 Mg Tablet) 650 mg PO Q6H PRN PRN Reason: Pain (Scale Score 1-3) Last Admin: 04/26/23 23:21 Dose: 650 mg Acetaminophen (Acetaminophen 325 Mg Tablet) 650 mg PO Q6H PRN PRN Reason: Headache/Pain Mild Scale (1-3) Last Admin: 04/17/23 04:11 Dose: 650 mg Al Hydroxide/Mg Hydroxide (Magnesium Hydrox/Alum Hydrox 30 Ml Oral.Susp) 30 ml PO Q6H PRN PRN Reason: Heartburn/Nausea Divalproex Sodium (Divalproex Sodium 250 Mg Tablet.Dr) 250 mg PO TID [facility] Last Admin: 05/10/23 20:43 Dose: 250 mg Emtricitabine/Tenofovir Alafenamide (Emtricitabine/Tenofov Alafenam Tablet) 1 tab PO DAILY [facility] Last Admin: 05/10/23 08:45 Dose: 1 tab Haloperidol (Haloperidol 1 Mg Tablet) 1 mg PO TID PRN PRN Reason: psychotic agitation Last Admin: 04/26/23 23:22 Dose: 1 mg Haloperidol (Haloperidol 5 Mg Tablet) 5 mg PO BID [facility] Last Admin: 05/10/23 20:42 Dose: 5 mg Haloperidol Decanoate (Haloperidol Decanoate 50 Mg/Ml Vial) 100 mg IM Q28D [facility] Last Admin: 05/02/23 18:26 Dose: 100 mg Levetiracetam (Levetiracetam 500 Mg Tablet) 500 mg PO BID [facility] Last Admin: 05/10/23 20:42 Dose: 500 mg Lorazepam (Lorazepam 1 Mg Tablet) 1 mg PO Q4H PRN PRN Reason: anxiety/agitation Last Admin: 05/04/23 20:42 Dose: 1 mg Magnesium Hydroxide (Milk Of Magnesia 30 Ml Oral.Susp) 30 ml PO DAILY PRN PRN Reason: Constipation Last Admin: 04/24/23 05:23 Dose: 30 ml Mirtazapine (Mirtazapine 15 Mg Tablet) 15 mg PO BEDTIME [facility] Last Admin: 05/10/23 20:42 Dose: 15 mg Olanzapine (Olanzapine 5 Mg Tablet) 5 mg PO TID PRN PRN Reason: agitation Last Admin: 04/26/23 23:22 Dose: 5 mg Olanzapine (Olanzapine 5 Mg Tablet) 5 mg PO BID@0830,1330 [facility] Last Admin: 05/10/23 14:59 Dose: 5 mg Olanzapine (Olanzapine 10 Mg Tablet) 10 mg PO BEDTIME [facility] Last Admin: 05/10/23 20:43 Dose: 10 mg Olanzapine (Olanzapine 10 Mg Vial) 10 mg IM TID PRN PRN Reason: refusal of zyprexa Last Admin: 05/07/23 20:51 Dose: 10 mg Polyethylene Glycol (Polyethylene Glycol 3350 17 Gm Powd.Pack) 17 gm PO DAILY PRN PRN Reason: Constipation Rilpivirine (Rilpivirine Hcl 25 Mg Tablet) 25 mg PO DAILY [facility] Last Admin: 05/10/23 08:45 Dose: 25 mg Thiamine HCl (Thiamine Hcl 100 Mg Tablet) 100 mg PO DAILY [facility] Last Admin: 05/10/23 08:45 Dose: 100 mg Trazodone HCl (Trazodone Hcl 25 Mg Halftab) 25 mg PO BEDTIME MRX1 PRN PRN Reason: Insomnia Last Admin: 05/09/23 20:45 Dose: 25 mg Allergies Allergies Allergy/AdvReac Type Severity Reaction Status Date / Time No Known Allergies Allergy Unverified 01/28/20 16:07 [No Known Allergies*] Assessment & Plan Assessment & Plan (1) Dementia: Status: Acute Code(s): F03.90 - Unspecified dementia, unspecified severity, without behavioral disturbance, psychotic disturbance, mood disturbance, and anxiety (2) Schizoaffective disorder, bipolar type: Status: Acute Code(s): F25.0 - Schizoaffective disorder, bipolar type Plan the patient is an elderly male with a past history of schizoaffective disorder and dementia who was brought from his rest home for exacerbation of psychosis, disorganized behavior and inappropriate sexual behavior with exit seeking behavior due to noncompliance for several days with his medications. The patient is unable to provide any more details due to his advanced dementia. Plan 1. Continue with Zyprexa prescribed 3 times a day. 2. Continue with Haldol increased. 3. Reassessment results. 05/11 a bit better today- more compliant with medications - Patient educated on: medication risk/benefits Informed Consent: further education needed Reason for continued inpatient stay Substantial Risk for: rapid decompensation Time Spent With Patient Time: Total time managing care of this patient today ____ minutes.
[2023-05-11] MEDS: Rilpivirine HCL 25 MG TABLET PO (09:08)
[2023-05-11] MEDS: Divalproex Sodium 250 MG TABLET.DR PO ×3 (09:08→20:10)
[2023-05-11] MEDS: Emtricitabine/Tenofov Alafenam TABLET 1 TAB PO (09:08)
[2023-05-11] MEDS: levETIRAcetam 500 MG TABLET PO ×2 (09:08→20:10)
[2023-05-11] MEDS: Thiamine HCL 100 MG TABLET PO (09:09)
[2023-05-11] MEDS: HaloperidoL 5 MG TABLET PO ×2 (09:09→20:10)
[2023-05-11] MEDS: OLANZapine 5 MG TABLET PO ×2 (09:09→14:24)
[2023-05-11 18:00] VITALS: BP 101/62; PULSE 106; RESP 18; TEMP 36.6; O2SAT 95
[2023-05-11] MEDS: OLANZapine 10 MG TABLET PO (20:10)
[2023-05-11] MEDS: Mirtazapine 15 MG TABLET PO (20:10)
[2023-05-12 06:00] VITALS: BP 112/66; PULSE 94; RESP 16; TEMP 36.7; O2SAT 97
[2023-05-12] MEDS: Rilpivirine HCL 25 MG TABLET PO (07:43)
[2023-05-12] MEDS: Divalproex Sodium 250 MG TABLET.DR PO ×3 (07:43→20:36)
[2023-05-12] MEDS: Emtricitabine/Tenofov Alafenam TABLET 1 TAB PO (07:43)
[2023-05-12] MEDS: levETIRAcetam 500 MG TABLET PO ×2 (07:44→20:36)
[2023-05-12] MEDS: Thiamine HCL 100 MG TABLET PO (07:44)
[2023-05-12] MEDS: OLANZapine 5 MG TABLET PO ×2 (07:44→12:52)
[2023-05-12] MEDS: HaloperidoL 5 MG TABLET PO ×2 (07:44→20:36)
[2023-05-12 08:32] LABS: COVID-19 Test Negative (Negative); IDNOW Serial# BCCEAD1C
--- NOTE | 2023-05-12 16:21 | P.PNPSI_ITS ---
Subjective Subjective Date of Service: 05/12/23 Reason For Visit: agressive behavior Subjective Notes: Conditional Voluntary Interim History: Patient reports not being able to sleep so that he is napping today and not wanting to talk to provider- Nursing reports better still some baseline irritableness- -felt to be part of his persona Less outbursts, taking medications and eating Medication Compliance: Yes Side effects from medications: Yes ( not sleeping though no report he didn't sleep! ) Attending Groups: No Review of Systems Acute medical concerns: No Medical Review of Systems: unchanged Mental Status Exam Mental Status Exam Patient Appearance: Fatigued and Unkempt Patient Orientation: Person and Situation Level of Consciousness: Drowsy Patient Behavior: Resistive to Care and Uncooperative Mood Description: Apathetic Affect Description: Blunted Patient Cognition Impaired: Yes Ability to Follow Directions: Fair Speech Pattern: Rambling Thought Process: Evasive Thought Content: positive for [place] [facility] Vital Signs (24Hr): Vital Signs - 24 hr 05/11/23 18:00 05/12/23 06:00 Temperature 97.8 F 98.1 F Pulse Rate 106 H 94 Respiratory Rate 18 16 Blood Pressure 101/62 112/66 Pulse Oximetry 95 97 Oxygen Delivery Method Room Air Room Air BMI result Body Mass Index 15.1 Labs 04/07/23 23:41 04/07/23 23:41 Labs: Laboratory Results - last 48 hr 05/12/23 07:38 COVID-19 ([facility]) Negative COVID-19 Clin Com See Note Imaging Radiology Impressions: ITS Impressions Chest X-Ray 04/10/23 09:25 IMPRESSION: There is bulky-focal very mild linear scar/subsegmental atelectasis in the mid to lower left lung, likely related gaseous distention of the stomach. Chest X-Ray 04/19/23 09:15 IMPRESSION: Question left base infiltrate. Air-filled distended stomach and bowel. Medications Medications Current Medications Acetaminophen (Acetaminophen 325 Mg Tablet) 650 mg PO Q6H PRN PRN Reason: Pain (Scale Score 1-3) Last Admin: 04/26/23 23:21 Dose: 650 mg Acetaminophen (Acetaminophen 325 Mg Tablet) 650 mg PO Q6H PRN PRN Reason: Headache/Pain Mild Scale (1-3) Last Admin: 04/17/23 04:11 Dose: 650 mg Al Hydroxide/Mg Hydroxide (Magnesium Hydrox/Alum Hydrox 30 Ml Oral.Susp) 30 ml PO Q6H PRN PRN Reason: Heartburn/Nausea Divalproex Sodium (Divalproex Sodium 250 Mg Tablet.Dr) 250 mg PO TID [facility] Last Admin: 05/12/23 15:07 Dose: 250 mg Emtricitabine/Tenofovir Alafenamide (Emtricitabine/Tenofov Alafenam Tablet) 1 tab PO DAILY [facility] Last Admin: 05/12/23 07:43 Dose: 1 tab Haloperidol (Haloperidol 1 Mg Tablet) 1 mg PO TID PRN PRN Reason: psychotic agitation Last Admin: 04/26/23 23:22 Dose: 1 mg Haloperidol (Haloperidol 5 Mg Tablet) 5 mg PO BID [facility] Last Admin: 05/12/23 07:44 Dose: 5 mg Haloperidol Decanoate (Haloperidol Decanoate 50 Mg/Ml Vial) 100 mg IM Q28D [facility] Last Admin: 05/02/23 18:26 Dose: 100 mg Levetiracetam (Levetiracetam 500 Mg Tablet) 500 mg PO BID [facility] Last Admin: 05/12/23 07:44 Dose: 500 mg Lorazepam (Lorazepam 1 Mg Tablet) 1 mg PO Q4H PRN PRN Reason: anxiety/restlessness Magnesium Hydroxide (Milk Of Magnesia 30 Ml Oral.Susp) 30 ml PO DAILY PRN PRN Reason: Constipation Last Admin: 04/24/23 05:23 Dose: 30 ml Mirtazapine (Mirtazapine 15 Mg Tablet) 15 mg PO BEDTIME [facility] Last Admin: 05/11/23 20:10 Dose: 15 mg Olanzapine (Olanzapine 5 Mg Tablet) 5 mg PO TID PRN PRN Reason: agitation Last Admin: 04/26/23 23:22 Dose: 5 mg Olanzapine (Olanzapine 5 Mg Tablet) 5 mg PO BID@0830,1330 [facility] Last Admin: 05/12/23 12:52 Dose: 5 mg Olanzapine (Olanzapine 10 Mg Tablet) 10 mg PO BEDTIME [facility] Last Admin: 05/11/23 20:10 Dose: 10 mg Olanzapine (Olanzapine 10 Mg Vial) 10 mg IM TID PRN PRN Reason: refusal of zyprexa Last Admin: 05/07/23 20:51 Dose: 10 mg Polyethylene Glycol (Polyethylene Glycol 3350 17 Gm Powd.Pack) 17 gm PO DAILY PRN PRN Reason: Constipation Rilpivirine (Rilpivirine Hcl 25 Mg Tablet) 25 mg PO DAILY [facility] Last Admin: 05/12/23 07:43 Dose: 25 mg Thiamine HCl (Thiamine Hcl 100 Mg Tablet) 100 mg PO DAILY [facility] Last Admin: 05/12/23 07:44 Dose: 100 mg Trazodone HCl (Trazodone Hcl 25 Mg Halftab) 25 mg PO BEDTIME MRX1 PRN PRN Reason: Insomnia Last Admin: 05/09/23 20:45 Dose: 25 mg Allergies Allergies Allergy/AdvReac Type Severity Reaction Status Date / Time No Known Allergies Allergy Unverified 01/28/20 16:07 [No Known Allergies*] Assessment & Plan Assessment & Plan (1) Dementia: Status: Acute Code(s): F03.90 - Unspecified dementia, unspecified severity, without behavioral disturbance, psychotic disturbance, mood disturbance, and anxiety (2) Schizoaffective disorder, bipolar type: Status: Acute Code(s): F25.0 - Schizoaffective disorder, bipolar type Plan the patient is an elderly male with a past history of schizoaffective disorder and dementia who was brought from his rest home for exacerbation of psychosis, disorganized behavior and inappropriate sexual behavior with exit seeking behavior due to noncompliance for several days with his medications. The patient is unable to provide any more details due to his advanced dementia. Plan 1. Continue with Zyprexa prescribed 3 times a day. 2. Continue with Haldol increased. 3. Reassessment results. 05/11 a bit better today- more compliant with medications - 05/12 CTP Informed Consent: further education needed Reason for continued inpatient stay Substantial Risk for: inability to function and rapid decompensation Time Spent With Patient Time: Total time managing care of this patient today ____ minutes.
[2023-05-12 17:41] VITALS: BP 119/78; PULSE 84; RESP 18; TEMP 36.3; O2SAT 95
[2023-05-12] MEDS: OLANZapine 10 MG TABLET PO (20:36)
[2023-05-12] MEDS: Mirtazapine 15 MG TABLET PO (20:36)
[2023-05-13 06:00] VITALS: BP 124/68; PULSE 94; RESP 16; TEMP 36.6; O2SAT 95
[2023-05-13] MEDS: Thiamine HCL 100 MG TABLET PO (07:41)
[2023-05-13] MEDS: Divalproex Sodium 250 MG TABLET.DR PO ×2 (07:41→16:46)
[2023-05-13] MEDS: OLANZapine 5 MG TABLET PO ×2 (07:41→13:03)
[2023-05-13] MEDS: Emtricitabine/Tenofov Alafenam TABLET 1 TAB PO (07:42)
[2023-05-13] MEDS: HaloperidoL 5 MG TABLET PO (07:42)
[2023-05-13] MEDS: Rilpivirine HCL 25 MG TABLET PO (07:42)
[2023-05-13] MEDS: levETIRAcetam 500 MG TABLET PO (07:42)
--- NOTE | 2023-05-13 10:54 | HO.PSYCHPN ---
Subjective Subjective Date of Service: 05/13/23 Reason For Visit: agressive behavior Subjective Notes: Conditional Voluntary Interim History: Nursing reports improving daily, after initial irritable response on engaging becomes more pleasant, taking meds, though last pm pocketed depakote after looking like he took it- less manic overall Pt reports to this provider that he doesn't want to be on a daily medication and does not believe he has mental illness. Medication Compliance: Yes Side effects from medications: No (can not specify any just doesn't want daily med) Attending Groups: No Review of Systems Acute medical concerns: No Medical Review of Systems: unchanged Mental Status Exam Mental Status Exam Patient Appearance: Fatigued and Unkempt Patient Orientation: Person and Situation Level of Consciousness: Drowsy Patient Behavior: Resistive to Care and Uncooperative Mood Description: Apathetic Affect Description: Blunted Patient Cognition Impaired: Yes Ability to Follow Directions: Fair Speech Pattern: Rambling Thought Process: Evasive Thought Content: positive for [place] [facility] Vital Signs (24Hr): Vital Signs - 24 hr 05/12/23 17:41 05/13/23 06:00 Temperature 97.4 F 97.8 F Pulse Rate 84 94 Respiratory Rate 18 16 Blood Pressure 119/78 124/68 Pulse Oximetry 95 95 Oxygen Delivery Method Room Air Room Air BMI result Body Mass Index 15.1 Labs 04/07/23 23:41 04/07/23 23:41 Labs: Laboratory Results - last 48 hr 05/12/23 07:38 COVID-19 ([facility]) Negative COVID-19 Clin Com See Note Imaging Radiology Impressions: ITS Impressions Chest X-Ray 04/10/23 09:25 IMPRESSION: There is bulky-focal very mild linear scar/subsegmental atelectasis in the mid to lower left lung, likely related gaseous distention of the stomach. Chest X-Ray 04/19/23 09:15 IMPRESSION: Question left base infiltrate. Air-filled distended stomach and bowel. Medications Medications Current Medications Acetaminophen (Acetaminophen 325 Mg Tablet) 650 mg PO Q6H PRN PRN Reason: Pain (Scale Score 1-3) Last Admin: 04/26/23 23:21 Dose: 650 mg Acetaminophen (Acetaminophen 325 Mg Tablet) 650 mg PO Q6H PRN PRN Reason: Headache/Pain Mild Scale (1-3) Last Admin: 04/17/23 04:11 Dose: 650 mg Al Hydroxide/Mg Hydroxide (Magnesium Hydrox/Alum Hydrox 30 Ml Oral.Susp) 30 ml PO Q6H PRN PRN Reason: Heartburn/Nausea Divalproex Sodium (Divalproex Sodium 250 Mg Tablet.Dr) 250 mg PO TID [facility] Last Admin: 05/13/23 07:41 Dose: 250 mg Emtricitabine/Tenofovir Alafenamide (Emtricitabine/Tenofov Alafenam Tablet) 1 tab PO DAILY [facility] Last Admin: 05/13/23 07:42 Dose: 1 tab Haloperidol (Haloperidol 1 Mg Tablet) 1 mg PO TID PRN PRN Reason: psychotic agitation Last Admin: 04/26/23 23:22 Dose: 1 mg Haloperidol (Haloperidol 5 Mg Tablet) 5 mg PO BID [facility] Last Admin: 05/13/23 07:42 Dose: 5 mg Haloperidol Decanoate (Haloperidol Decanoate 50 Mg/Ml Vial) 100 mg IM Q28D [facility] Last Admin: 05/02/23 18:26 Dose: 100 mg Levetiracetam (Levetiracetam 500 Mg Tablet) 500 mg PO BID [facility] Last Admin: 05/13/23 07:42 Dose: 500 mg Lorazepam (Lorazepam 1 Mg Tablet) 1 mg PO Q4H PRN PRN Reason: anxiety/restlessness Magnesium Hydroxide (Milk Of Magnesia 30 Ml Oral.Susp) 30 ml PO DAILY PRN PRN Reason: Constipation Last Admin: 04/24/23 05:23 Dose: 30 ml Mirtazapine (Mirtazapine 15 Mg Tablet) 15 mg PO BEDTIME [facility] Last Admin: 05/12/23 20:36 Dose: 15 mg Olanzapine (Olanzapine 5 Mg Tablet) 5 mg PO TID PRN PRN Reason: agitation Last Admin: 04/26/23 23:22 Dose: 5 mg Olanzapine (Olanzapine 5 Mg Tablet) 5 mg PO BID@0830,1330 [facility] Last Admin: 05/13/23 07:41 Dose: 5 mg Olanzapine (Olanzapine 10 Mg Tablet) 10 mg PO BEDTIME [facility] Last Admin: 05/12/23 20:36 Dose: 10 mg Olanzapine (Olanzapine 10 Mg Vial) 10 mg IM TID PRN PRN Reason: refusal of zyprexa Last Admin: 05/07/23 20:51 Dose: 10 mg Polyethylene Glycol (Polyethylene Glycol 3350 17 Gm Powd.Pack) 17 gm PO DAILY PRN PRN Reason: Constipation Rilpivirine (Rilpivirine Hcl 25 Mg Tablet) 25 mg PO DAILY [facility] Last Admin: 05/13/23 07:42 Dose: 25 mg Thiamine HCl (Thiamine Hcl 100 Mg Tablet) 100 mg PO DAILY [facility] Last Admin: 05/13/23 07:41 Dose: 100 mg Trazodone HCl (Trazodone Hcl 25 Mg Halftab) 25 mg PO BEDTIME MRX1 PRN PRN Reason: Insomnia Last Admin: 05/09/23 20:45 Dose: 25 mg Allergies Allergies Allergy/AdvReac Type Severity Reaction Status Date / Time No Known Allergies Allergy Unverified 01/28/20 16:07 [No Known Allergies*] Assessment & Plan Assessment & Plan (1) Dementia: Status: Acute Code(s): F03.90 - Unspecified dementia, unspecified severity, without behavioral disturbance, psychotic disturbance, mood disturbance, and anxiety (2) Schizoaffective disorder, bipolar type: Status: Acute Code(s): F25.0 - Schizoaffective disorder, bipolar type Plan the patient is an elderly male with a past history of schizoaffective disorder and dementia who was brought from his rest home for exacerbation of psychosis, disorganized behavior and inappropriate sexual behavior with exit seeking behavior due to noncompliance for several days with his medications. The patient is unable to provide any more details due to his advanced dementia. Plan 1. Continue with Zyprexa prescribed 3 times a day. 2. Continue with Haldol increased. 3. Reassessment results. 05/11 a bit better today- more compliant with medications - 05/12 CTP 05/13/23 taking medications though trying to pocket depakote- no insight into need Patient educated on: medication risk/benefits Informed Consent: does not understand Reason for continued inpatient stay Substantial Risk for: rapid decompensation Time Spent With Patient Time: Total time managing care of this patient today ____ minutes.
[2023-05-13 18:00] VITALS: BP 118/73; PULSE 70; RESP 16; TEMP 36.5; O2SAT 98
[2023-05-13] MEDS: LORazepam 1 MG TABLET PO (20:22)
[2023-05-13] MEDS: OLANZapine 10 MG TABLET PO (20:23)
[2023-05-14 08:10] VITALS: BP 118/78; PULSE 88; RESP 18; TEMP 36.8; O2SAT 97
[2023-05-14] MEDS: Divalproex Sodium 250 MG TABLET.DR PO ×3 (08:46→22:10)
[2023-05-14] MEDS: OLANZapine 5 MG TABLET PO ×2 (08:46→12:58)
[2023-05-14] MEDS: Rilpivirine HCL 25 MG TABLET PO (08:46)
[2023-05-14] MEDS: Emtricitabine/Tenofov Alafenam TABLET 1 TAB PO (08:46)
[2023-05-14] MEDS: HaloperidoL 5 MG TABLET PO ×2 (08:46→21:05)
[2023-05-14] MEDS: Thiamine HCL 100 MG TABLET PO (08:46)
[2023-05-14] MEDS: levETIRAcetam 500 MG TABLET PO ×2 (08:46→21:05)
[2023-05-14 10:26] LABS: COVID-19 Test Negative (Negative); IDNOW Serial# 9DB6401D
--- NOTE | 2023-05-14 12:43 | HO.PSYCHPN ---
Subjective Subjective Date of Service: 05/14/23 Reason For Visit: agressive behavior Subjective Notes: [place] Order and Conditional Voluntary Interim History: The nursing staff reported the patient had been irritable at times but redirectable. He had been withdrawn most of the time on his bed. He slept 8 hours. Last night he refuses Depakote and Haldol but to the Zyprexa. Overall, the patient looks in much better condition and he is less psychotic. The social service liaison reported that the staff from the facilities going to visit him and possibly he could be discharged today or tomorrow. Mental Status Exam Mental Status Exam Patient Appearance: Unkempt Patient Orientation: Person Level of Consciousness: Disoriented Patient Behavior: Appropriate Mood Description: Withdrawn Affect Description: Constricted Patient Cognition Impaired: Yes Ability to Follow Directions: Good Speech Pattern: Clear Hallucinations: None Delusions: Paranoid Ideation Thought Process: Distracted and Slowed Thinking Thought Content: positive for [place] and positive for Poverty of Content Judgement: Poor Diagnostics Vital Signs (24Hr): Vital Signs - 24 hr 05/13/23 18:00 05/14/23 08:10 Temperature 97.7 F 98.2 F Pulse Rate 70 88 Respiratory Rate 16 18 Blood Pressure 118/73 118/78 Pulse Oximetry 98 97 Oxygen Delivery Method Room Air Room Air BMI result Body Mass Index 15.1 Labs 04/07/23 23:41 04/07/23 23:41 Labs: Laboratory Results - last 48 hr 05/14/23 09:39 COVID-19 ([facility]) Negative COVID-19 Clin Com See Note Imaging Radiology Impressions: ITS Impressions Chest X-Ray 04/10/23 09:25 IMPRESSION: There is bulky-focal very mild linear scar/subsegmental atelectasis in the mid to lower left lung, likely related gaseous distention of the stomach. Chest X-Ray 04/19/23 09:15 IMPRESSION: Question left base infiltrate. Air-filled distended stomach and bowel. Medications Medications Current Medications Acetaminophen (Acetaminophen 325 Mg Tablet) 650 mg PO Q6H PRN PRN Reason: Headache/Pain Mild Scale (1-3) Last Admin: 04/17/23 04:11 Dose: 650 mg Al Hydroxide/Mg Hydroxide (Magnesium Hydrox/Alum Hydrox 30 Ml Oral.Susp) 30 ml PO Q6H PRN PRN Reason: Heartburn/Nausea Divalproex Sodium (Divalproex Sodium 250 Mg Tablet.Dr) 250 mg PO TID [facility] Last Admin: 05/14/23 08:46 Dose: 250 mg Emtricitabine/Tenofovir Alafenamide (Emtricitabine/Tenofov Alafenam Tablet) 1 tab PO DAILY [facility] Last Admin: 05/14/23 08:46 Dose: 1 tab Haloperidol (Haloperidol 1 Mg Tablet) 1 mg PO TID PRN PRN Reason: psychotic agitation Last Admin: 04/26/23 23:22 Dose: 1 mg Haloperidol (Haloperidol 5 Mg Tablet) 5 mg PO BID [facility] Last Admin: 05/14/23 08:46 Dose: 5 mg Haloperidol Decanoate (Haloperidol Decanoate 50 Mg/Ml Vial) 100 mg IM Q28D [facility] Last Admin: 05/02/23 18:26 Dose: 100 mg Levetiracetam (Levetiracetam 500 Mg Tablet) 500 mg PO BID [facility] Last Admin: 05/14/23 08:46 Dose: 500 mg Lorazepam (Lorazepam 1 Mg Tablet) 1 mg PO Q4H PRN PRN Reason: anxiety/restlessness Last Admin: 05/13/23 20:22 Dose: 1 mg Magnesium Hydroxide (Milk Of Magnesia 30 Ml Oral.Susp) 30 ml PO DAILY PRN PRN Reason: Constipation Last Admin: 04/24/23 05:23 Dose: 30 ml Mirtazapine (Mirtazapine 15 Mg Tablet) 15 mg PO BEDTIME [facility] Last Admin: 05/13/23 20:25 Dose: Not Given Olanzapine (Olanzapine 5 Mg Tablet) 5 mg PO TID PRN PRN Reason: agitation Last Admin: 04/26/23 23:22 Dose: 5 mg Olanzapine (Olanzapine 5 Mg Tablet) 5 mg PO BID@0830,1330 [facility] Last Admin: 05/14/23 08:46 Dose: 5 mg Olanzapine (Olanzapine 10 Mg Tablet) 10 mg PO BEDTIME [facility] Last Admin: 05/13/23 20:23 Dose: 10 mg Olanzapine (Olanzapine 10 Mg Vial) 10 mg IM TID PRN PRN Reason: refusal of zyprexa Last Admin: 05/07/23 20:51 Dose: 10 mg Polyethylene Glycol (Polyethylene Glycol 3350 17 Gm Powd.Pack) 17 gm PO DAILY PRN PRN Reason: Constipation Rilpivirine (Rilpivirine Hcl 25 Mg Tablet) 25 mg PO DAILY [facility] Last Admin: 05/14/23 08:46 Dose: 25 mg Thiamine HCl (Thiamine Hcl 100 Mg Tablet) 100 mg PO DAILY [facility] Last Admin: 05/14/23 08:46 Dose: 100 mg Trazodone HCl (Trazodone Hcl 25 Mg Halftab) 25 mg PO BEDTIME MRX1 PRN PRN Reason: Insomnia Last Admin: 05/09/23 20:45 Dose: 25 mg Allergies Allergies Allergy/AdvReac Type Severity Reaction Status Date / Time No Known Allergies Allergy Unverified 01/28/20 16:07 [No Known Allergies*] Assessment & Plan Assessment & Plan (1) Dementia: Status: Acute Code(s): F03.90 - Unspecified dementia, unspecified severity, without behavioral disturbance, psychotic disturbance, mood disturbance, and anxiety (2) Schizoaffective disorder, bipolar type: Status: Acute Code(s): F25.0 - Schizoaffective disorder, bipolar type Plan the patient is an elderly male with a past history of schizoaffective disorder and dementia who was brought from his rest home for exacerbation of psychosis, disorganized behavior and inappropriate sexual behavior with exit seeking behavior due to noncompliance for several days with his medications. The patient is unable to provide any more details due to his advanced dementia. Plan 1. Continue with Zyprexa prescribed 3 times a day. 2. Continue with Haldol increased. 3. Reassessment results. Reason for continued inpatient stay Substantial Risk for: inability to function, rapid decompensation and med/psych decompensation Time Spent With Patient Time: Total time managing care of this patient today _20___ minutes.
[2023-05-14 18:00] VITALS: BP 114/73; PULSE 76; RESP 18; TEMP 36.2; O2SAT 98
[2023-05-14] MEDS: LORazepam 1 MG TABLET PO (21:05)
[2023-05-14] MEDS: Mirtazapine 15 MG TABLET PO (21:06)
[2023-05-14] MEDS: OLANZapine 10 MG TABLET PO (21:06)
[2023-05-15 08:20] VITALS: BP 113/77; PULSE 105; RESP 18; TEMP 36.2; O2SAT 95
[2023-05-15] MEDS: Rilpivirine HCL 25 MG TABLET PO (08:46)
[2023-05-15] MEDS: Thiamine HCL 100 MG TABLET PO (08:47)
[2023-05-15] MEDS: OLANZapine 5 MG TABLET PO ×2 (08:47→12:31)
[2023-05-15] MEDS: Divalproex Sodium 250 MG TABLET.DR PO ×3 (08:47→22:08)
[2023-05-15] MEDS: levETIRAcetam 500 MG TABLET PO ×2 (08:47→22:09)
[2023-05-15] MEDS: HaloperidoL 5 MG TABLET PO ×2 (08:47→22:08)
[2023-05-15] MEDS: Emtricitabine/Tenofov Alafenam TABLET 1 TAB PO (08:47)
--- NOTE | 2023-05-15 14:17 | MHC.CLN ---
F/U DIET=REGULAR. MAGIC CUP ADDED BID TO INCREASE CALORIC INTAKE. PROVIDES 580 KCALS, 18 G PROTEIN. MOST RECENT INTAKE X 3 DAYS 50-100%, WITH MOST MEALS 100%. WEIGHT 05/09=49.2 KG. WEIGHT ESSENTIALLY STABLE SINCE 04/11. FOLLOW FOR INTAKE AND WEIGHT AND ENCOURAGE INTAKE ABLE. RD TO FOLLOW UP WEEKLY.
--- NOTE | 2023-05-15 14:40 | HO.PSYCHPN ---
Subjective Subjective Date of Service: 05/15/23 Reason For Visit: agressive behavior Subjective Notes: Conditional Voluntary Interim History: The nursing staff reported the patient had been compliant with treatment, his withdrawn but no aggressiveness. He has been recovering from COVID. The occupational therapist reported that he went to groups and he was okay. On interview the patient denies new symptoms, waiting for placement. Today the social work supervisor reported that he could had being discharged today but nobody answered back Mental Status Exam Mental Status Exam Patient Appearance: Appropriate Patient Orientation: Person Level of Consciousness: Awake Patient Behavior: Guarded and Passive Mood Description: Calm Affect Description: Constricted Patient Cognition Impaired: Yes Ability to Follow Directions: Good Speech Pattern: Clear Hallucinations: None Delusions: Not Present Thought Process: Distracted Thought Content: positive for [place] and positive for Poverty of Content Judgement: Poor Diagnostics Vital Signs (24Hr): Vital Signs - 24 hr 05/14/23 18:00 05/15/23 08:20 Temperature 97.1 F 97.2 F Pulse Rate 76 105 H Respiratory Rate 18 18 Blood Pressure 114/73 113/77 Pulse Oximetry 98 95 Oxygen Delivery Method Room Air Room Air BMI result Body Mass Index 15.1 Labs 04/07/23 23:41 04/07/23 23:41 Labs: Laboratory Results - last 48 hr 05/14/23 09:39 COVID-19 ([facility]) Negative COVID-19 Clin Com See Note Imaging Radiology Impressions: ITS Impressions Chest X-Ray 04/10/23 09:25 IMPRESSION: There is bulky-focal very mild linear scar/subsegmental atelectasis in the mid to lower left lung, likely related gaseous distention of the stomach. Chest X-Ray 04/19/23 09:15 IMPRESSION: Question left base infiltrate. Air-filled distended stomach and bowel. Medications Medications Current Medications Acetaminophen (Acetaminophen 325 Mg Tablet) 650 mg PO Q6H PRN PRN Reason: Headache/Pain Mild Scale (1-3) Last Admin: 04/17/23 04:11 Dose: 650 mg Al Hydroxide/Mg Hydroxide (Magnesium Hydrox/Alum Hydrox 30 Ml Oral.Susp) 30 ml PO Q6H PRN PRN Reason: Heartburn/Nausea Divalproex Sodium (Divalproex Sodium 250 Mg Tablet.) 250 mg PO TID [facility] Last Admin: 05/15/23 08:47 Dose: 250 mg Emtricitabine/Tenofovir Alafenamide (Emtricitabine/Tenofov Alafenam Tablet) 1 tab PO DAILY [facility] Last Admin: 05/15/23 08:47 Dose: 1 tab Haloperidol (Haloperidol 1 Mg Tablet) 1 mg PO TID PRN PRN Reason: psychotic agitation Last Admin: 04/26/23 23:22 Dose: 1 mg Haloperidol (Haloperidol 5 Mg Tablet) 5 mg PO BID [facility] Last Admin: 05/15/23 08:47 Dose: 5 mg Haloperidol Decanoate (Haloperidol Decanoate 50 Mg/Ml Vial) 100 mg IM Q28D [facility] Last Admin: 05/02/23 18:26 Dose: 100 mg Levetiracetam (Levetiracetam 500 Mg Tablet) 500 mg PO BID [facility] Last Admin: 05/15/23 08:47 Dose: 500 mg Lorazepam (Lorazepam 1 Mg Tablet) 1 mg PO Q4H PRN PRN Reason: anxiety/restlessness Last Admin: 05/14/23 21:05 Dose: 1 mg Magnesium Hydroxide (Milk Of Magnesia 30 Ml Oral.Susp) 30 ml PO DAILY PRN PRN Reason: Constipation Last Admin: 04/24/23 05:23 Dose: 30 ml Mirtazapine (Mirtazapine 15 Mg Tablet) 15 mg PO BEDTIME [facility] Last Admin: 05/14/23 21:06 Dose: 15 mg Olanzapine (Olanzapine 5 Mg Tablet) 5 mg PO TID PRN PRN Reason: agitation Last Admin: 04/26/23 23:22 Dose: 5 mg Olanzapine (Olanzapine 5 Mg Tablet) 5 mg PO BID@0830,1330 [facility] Last Admin: 05/15/23 12:31 Dose: 5 mg Olanzapine (Olanzapine 10 Mg Tablet) 10 mg PO BEDTIME [facility] Last Admin: 05/14/23 21:06 Dose: 10 mg Olanzapine (Olanzapine 10 Mg Vial) 10 mg IM TID PRN PRN Reason: refusal of zyprexa Last Admin: 05/07/23 20:51 Dose: 10 mg Polyethylene Glycol (Polyethylene Glycol 3350 17 Gm Powd.Pack) 17 gm PO DAILY PRN PRN Reason: Constipation Rilpivirine (Rilpivirine Hcl 25 Mg Tablet) 25 mg PO DAILY [facility] Last Admin: 05/15/23 08:46 Dose: 25 mg Thiamine HCl (Thiamine Hcl 100 Mg Tablet) 100 mg PO DAILY [facility] Last Admin: 05/15/23 08:47 Dose: 100 mg Trazodone HCl (Trazodone Hcl 25 Mg Halftab) 25 mg PO BEDTIME MRX1 PRN PRN Reason: Insomnia Last Admin: 05/09/23 20:45 Dose: 25 mg Allergies Allergies Allergy/AdvReac Type Severity Reaction Status Date / Time No Known Allergies Allergy Unverified 01/28/20 16:07 [No Known Allergies*] Assessment & Plan Assessment & Plan (1) Dementia: Status: Acute Code(s): F03.90 - Unspecified dementia, unspecified severity, without behavioral disturbance, psychotic disturbance, mood disturbance, and anxiety (2) Schizoaffective disorder, bipolar type: Status: Acute Code(s): F25.0 - Schizoaffective disorder, bipolar type Plan the patient is an elderly male with a past history of schizoaffective disorder and dementia who was brought from his rest home for exacerbation of psychosis, disorganized behavior and inappropriate sexual behavior with exit seeking behavior due to noncompliance for several days with his medications. The patient is unable to provide any more details due to his advanced dementia. Plan 1. Continue with Zyprexa prescribed 3 times a day. 2. Continue with Haldol increased. 3. Reassessment results. 4. Discharge tomorrow Reason for continued inpatient stay Substantial Risk for: inability to function, rapid decompensation and med/psych decompensation Time Spent With Patient Time: Total time managing care of this patient today __20__ minutes.
[2023-05-15 18:00] VITALS: BP 108/71; PULSE 63; RESP 16; TEMP 36.4; O2SAT 97
[2023-05-15] MEDS: Mirtazapine 15 MG TABLET PO (22:08)
[2023-05-15] MEDS: OLANZapine 10 MG TABLET PO (22:09)
--- NOTE | 2023-05-16 08:10 | PM.PSYDC ---
DS: Providers Provider Date of Service: 05/16/23 Date of admission: 04/08/23 18:57 Date of discharge: 05/16/23 Primary care physician: Av Physician Attending physician on discharge: Donnie Hua DS: Diagnosis Discharge Diagnosis (1) Dementia: Status: Acute (2) Schizoaffective disorder, bipolar type: Status: Acute DS: Medications Discharge Medications Home Medications: Home Medications Medication Instructions Recorded Confirmed acetaminophen 325 mg tablet 650 mg PO Q6H PRN Pain (Scale 04/08/23 04/08/23 Score 1-3) divalproex 250 mg tablet,delayed 250 mg PO DAILY 04/08/23 04/08/23 release emtricitabine 200 mg-rilpivirine 1 tab PO DAILY 04/08/23 04/08/23 25 mg-tenofovir alafenam 25 mg tablet (Abram) haloperidol decanoate 100 mg/mL 100 mg IM Q4W 04/08/23 04/08/23 intramuscular solution levetiracetam 500 mg 500 mg PO BID 04/08/23 04/08/23 tablet,extended release 24 hr mirtazapine 15 mg disintegrating 15 mg PO BEDTIME 04/08/23 04/08/23 tablet olanzapine 15 mg tablet 15 mg PO BEDTIME 04/08/23 04/08/23 polyethylene glycol 3350 17 gram 17 g PO DAILY PRN Constipation 04/08/23 04/08/23 oral powder packet thiamine HCl (vitamin B1) 100 mg 100 mg PO DAILY 04/08/23 04/08/23 tablet Mental Status Exam Mental Status Exam Patient Appearance: Appropriate and Unkempt Patient Orientation: Person and Situation Level of Consciousness: Awake Patient Behavior: Guarded and Passive Mood Description: Withdrawn Affect Description: Constricted Patient Cognition Impaired: Yes Ability to Follow Directions: Good Speech Pattern: Clear and Impoverished Hallucinations: None Delusions: Ideas of Reference Thought Process: Distracted and Slowed Thinking Thought Content: positive for [place], positive for Poverty of Content and positive for Thought Blocking Judgement: Poor Data Data Completed and Pending Completed studies during hospitalization [Text1]: 05/10/23 05/12/23 05/14/23 09:41 07:38 09:39 COVID-19 ([facility]) Negative Negative Negative COVID-19 Clin Com See Note See Note See Note Imaging Diagnostic Imaging Impressions Chest X-Ray 04/10/23 09:25 IMPRESSION: There is bulky-focal very mild linear scar/subsegmental atelectasis in the mid to lower left lung, likely related gaseous distention of the stomach. Chest X-Ray 04/19/23 09:15 IMPRESSION: Question left base infiltrate. Air-filled distended stomach and bowel. DS: Summary Hospital Course Hospital Course: The patient is a 59-year-old male with a past history of schizophrenia, chronically mentally ill with [facility] case managing services referred to the emergency room due to exacerbation of psychosis and agitation. Apparently the patient in the last months had been in an out of the hospital for several medical reasons and he had been partially compliant with treatment. He was grossly psychotic, assessed by crisis and transferred to this facility for psychiatric stabilization. Please see the HPI of the admission note for further details. On admission we review the court order for treatment over objection and he had approved Haldol Decanoate, and alternatives olanzapine. We decided to keep on Haldol as prescribed and we decided to titrated up Zyprexa to target his psychotic symptoms. The patient was very impulsive, disorganized, verbally abusive for several days. Eventually he became more complained of medications and we titrated the Zyprexa to a therapeutic level. Also we added Depakote due to disinhibited behavior, poor impulse control and manic like symptoms. The patient did not experience any side effects. Slowly, the patient improved, he was able to control his impulses, he became more cooperative and pleasant and since there were no safety concerns discharge planning was discussed. He is going back to his regular facility with the medication changes described above. No safety concerns at this moment. Even though, at baseline the patient is a sporadically delusional and it seems that is his baseline. Time spent discussing smoking cessation with patient: 3 to 10 minutes Status at Discharge Cognitive/behavioral status at discharge: Impaired at baseline Functional status at discharge: independent ambulation Overall status at discharge: patient is back to baseline Time Spent with Patient Time attestation: Total time managing care of this patient today _30___ minutes. Time spent: Less than 30 minutes Discharge Plan Discharge Anticipated Discharge Date/Time: 05/16/23 10:00 Patient Disposition: Xfer [facility] Discharge Diagnosis: Schizoaffective disorder bipolar type. Dementia. Referrals: Physician,Unknown J [Primary Care Provider] - 1 Week Discharge Medications: New haloperidol 5 mg Tablet 5 mg PO BID 30 Days Qty: 60 0RF divalproex 250 mg Tablet,Delayed Release (Dr/Ec) 250 mg PO TID 30 Days Qty: 90 0RF olanzapine 5 mg Tablet 5 mg PO BID@0830,1330 30 Days Qty: 60 0RF olanzapine 10 mg Tablet 10 mg PO BEDTIME 30 Days Qty: 30 0RF lorazepam 1 mg Tablet 1 mg PO Q4H PRN (Reason: Anxiety/Restlessness) 30 Days Qty: 60 0RF Continued acetaminophen 325 mg Tablet 650 mg PO Q6H PRN (Reason: Pain (Scale Score 1-3)) Qty: 60 0RF polyethylene glycol 3350 17 gram Powder In Packet 17 g PO DAILY PRN (Reason: Constipation) Qty: 30 0RF haloperidol decanoate 100 mg/mL solution 100 mg IM Q4W 30 Days Qty: 2 0RF thiamine HCl (vitamin B1) 100 mg Tablet 100 mg PO DAILY Qty: 30 0RF mirtazapine 15 mg tablet,disintegrating 15 mg PO BEDTIME 30 Days Qty: 30 0RF levetiracetam 500 mg Tablet Extended Release 24 Hr 500 mg PO BID 30 Days Qty: 60 0RF Odefsey 200-25-25 mg tablet 1 tab PO DAILY Qty: 30 0RF Discontinued divalproex 250 mg tablet,delayed release (DR/EC) 250 mg PO DAILY olanzapine 15 mg tablet 15 mg PO BEDTIME Discharge Orders: Discharge Order (Routine); Ordered 05/16/23 Ordered By: Donnie Hua Diet: Advance to usual diet Activity on Discharge: As tolerated Stand Alone Forms: Patient Portal Discharge page Care Plan Goals: Care plan goals achieved in this admission Health Concerns: Continue treatment of HIV with regular providers and other medical concerns by primary care physician. Plan of Treatment: Continue medication management with regular providers. Assessment: The patient is an elderly male with a past history of schizoaffective disorder bipolar type, dementia and other medical comorbidities such as HIV who is chronically institutionalized admitted for exacerbation of psychotic symptoms in the context of prior admissions to Medicine and partial noncompliance with medications. We adjusted his Zyprexa to a therapeutic level with for improvement. At this moment no safety concerns ready for discharge.
[2023-05-16 08:15] VITALS: BP 155/91; PULSE 81; RESP 16; TEMP 36.4; O2SAT 92
[2023-05-16] MEDS: Emtricitabine/Tenofov Alafenam TABLET 1 TAB PO (08:50)
[2023-05-16] MEDS: Rilpivirine HCL 25 MG TABLET PO (08:50)
[2023-05-16] MEDS: levETIRAcetam 500 MG TABLET PO (08:50)
[2023-05-16] MEDS: HaloperidoL 5 MG TABLET PO (08:50)
[2023-05-16] MEDS: OLANZapine 5 MG TABLET PO (08:50)
[2023-05-16] MEDS: Thiamine HCL 100 MG TABLET PO (08:50)
--- NOTE | 2023-05-16 11:17 | PC.NURSE ---
Pt. alert and oriented to person only. Reports readiness for discharge. Pt. declined to sign for educational materials. They have been faxed to providers at [facility]. Pt. left unit at 11:00 escorted to [facility] at main entrance by this RN.
== END 2023-05-16 11:00 | DRG 885 ==
LOC: HO.ED 04-08 06:55 → HO.PGERI 04-08 19:48
PROVIDERS: Internal Medicine; Psychiatry & Neurology Psychiatry; Social Worker; Admitting Provider Psychiatry & Neurology Psychiatry; Emergency Provider Emergency Medicine Emergency Medical Services; Visit Provider Psychiatry & Neurology Psychiatry
DX: F25.0 Schizoaffective disorder, bipolar type (principal); F03.90 Unspecified dementia, unspecified severity, without behavioral disturbance, psychotic disturbance, mood disturbance, and anxiety; Z20.822 Contact with and (suspected) exposure to COVID-19; Z79.899 Other long term (current) drug therapy
CPT/HCPCS: 36415; 71045; 80053; 80061; 83036; 85025; 87635; 92526; 92610; 93005; 99285; J1630; J1631; J2060; J2359; S9485

== ENCOUNTER → 2023-04-08 18:57 | Outpatient (BNV) | payer MEDICARE, MEDICAID, SELFPAY | PROVIDERS: Admitting Provider Psychiatry & Neurology Psychiatry; Emergency Provider Emergency Medicine Emergency Medical Services; Visit Provider Psychiatry & Neurology Psychiatry | DX: F25.0 Schizoaffective disorder, bipolar type (principal); F03.90 Unspecified dementia, unspecified severity, without behavioral disturbance, psychotic disturbance, mood disturbance, and anxiety | CPT/HCPCS: 99231 ==

== ENCOUNTER → 2023-04-08 18:57 | Outpatient (BNV) | payer MEDICARE, MEDICAID, SELFPAY | PROVIDERS: Admitting Provider Psychiatry & Neurology Psychiatry; Emergency Provider Emergency Medicine Emergency Medical Services; Visit Provider Psychiatry & Neurology Psychiatry | DX: F25.0 Schizoaffective disorder, bipolar type (principal); F03.90 Unspecified dementia, unspecified severity, without behavioral disturbance, psychotic disturbance, mood disturbance, and anxiety | CPT/HCPCS: 90792; 99231; 99232; 99238; 99499 ==

== ENCOUNTER 2023-07-25 11:40 | Inpatient (IN) | payer MEDICARE, MEDICAID, SELFPAY ==
--- NOTE | ~2023-07-25 | XR_ITS ---
EXAMINATION: XR CHEST CLINICAL INFORMATION: SOB COMPARISON: Portable chest 04/19/2023 TECHNIQUE: AP upright portable view of the chest was obtained. 12:40 PM FINDINGS: The lungs are well expanded. No focal consolidation, interstitial pulmonary edema or pneumothorax. No pleural effusion. No significant abnormality is noted involving the heart, mediastinum, bony thorax or soft tissues. XR/XR chest 1V IMPRESSION: No acute abnormality.
[2023-07-25 11:53] VITALS: BP 112/62; PULSE 118; O2SAT 96
[2023-07-25 11:58] VITALS: BP 163/103; PULSE 107; RESP 16; TEMP 36.6; O2SAT 97; BMI 15.4
--- NOTE | 2023-07-25 12:27 | ECG_ITS ---
Test Reason : WEAKNESS Blood Pressure : / mmHG Vent. Rate : 103 BPM Atrial Rate : 103 BPM P-R Int : 176 ms QRS Dur : 074 ms QT Int : 346 ms P-R-T Axes : 068 -60 071 degrees QTc Int : 453 ms Sinus tachycardia Possible Left atrial enlargement Left anterior fascicular block Cannot rule out Inferior infarct (masked by fascicular block?) , age undetermined Abnormal ECG When compared with ECG of 07-APR-2023 23:15, No significant change was found Referred By: Alyx Stanley Electronically Signed By:ÁNGEL TORRES MD
--- NOTE | 2023-07-25 12:29 | ED_ITS ---
HPI - General Adult General Chief complaint: General Medical Stated complaint: NOT EATING/DRINKING/TAKEN MEDS IN DAYS Time Seen by Provider: 07/25/23 11:57 History of Present Illness HPI narrative: Patient is a 67-year-old male presents today with having not wanting to eat. Not wanting to drink. Refused to speak. Patient from rest home. Has a history of schizoaffective disorder has a history of dementia. Unable to obtain any history from patient. No fever unable to give detailed history. Reviewing patient's history patient has a history of HIV also history of hepatitis C. Related Data Home Medications Medication Instructions Recorded Confirmed albuterol sulfate 90 mcg/actuation 2 puff inhalation Q4H PRN Wheezing 07/25/23 07/25/23 aerosol inhaler lorazepam 1 mg tablet 1 mg PO Q4H PRN Agitation 07/25/23 07/25/23 olanzapine 5 mg tablet 5 mg PO BID@0800,1400 07/25/23 07/25/23 Previous Rx's Medication Instructions Recorded acetaminophen 325 mg tablet 650 mg (2 x 325 mg) PO Q6H PRN 05/16/23 Pain (Scale Score 1-3) #60 tabs divalproex 250 mg tablet,delayed 250 mg PO TID 30 days #90 tabs 05/16/23 release emtricitabine 200 mg-rilpivirine 1 tab PO DAILY #30 tabs 05/16/23 25 mg-tenofovir alafenam 25 mg tablet (Abram) haloperidol 5 mg tablet 5 mg PO BID 30 days #60 tabs 05/16/23 haloperidol decanoate 100 mg/mL 100 mg IM Q4W 30 days #2 mL 05/16/23 intramuscular solution levetiracetam 500 mg 500 mg PO BID 30 days #60 tabs 05/16/23 tablet,extended release 24 hr mirtazapine 15 mg disintegrating 15 mg PO BEDTIME 30 days #30 tabs 05/16/23 tablet olanzapine 10 mg tablet 10 mg PO BEDTIME 30 days #30 tabs 05/16/23 polyethylene glycol 3350 17 gram 17 g PO DAILY PRN Constipation #30 05/16/23 oral powder packet ea thiamine HCl (vitamin B1) 100 mg 100 mg PO DAILY #30 tabs 05/16/23 tablet Allergies Allergy/AdvReac Type Severity Reaction Status Date / Time No Known Allergies Allergy Unverified 01/28/20 16:07 [No Known Allergies*] Review of Systems 2 Review of Systems: Unable to obtain review of systems [facility] Past Medical History Attestation statement: The following information was validated with the patient. Source: unable to obtain Medical History Dementia HIV (human immunodeficiency virus infection) Bipolar 1 disorder Hepatitis C Liver failure HTN (hypertension) Social History Social History Household Members: Unknown / Unable to assess Household Members Other:: Pt in assisted living facility Housing: Assisted Living Facility Housing Other:: [facility] Unable to assess alcohol history related to: Unknown Patient Tobacco Use Status: Never used Tobacco e-Cigarette/Vaping Use: Never Used Substance Use Type: Unknown Advance Directives: Yes Advance Directives Information Provided: No Advance Directives on File: No Advance Directives Date on File: 04/18/17 service: No Current occupational status: disabled Sexual orientation: Straight/Heterosexual Physical Exam ED Vital Signs: Vital Signs - 24 hr 07/25/23 11:58 07/25/23 15:48 07/25/23 20:24 Temperature 98 F 98.2 F 97.8 F Pulse Rate 107 H 95 88 Respiratory Rate 16 16 16 Blood Pressure 163/103 H 134/89 153/95 H Pulse Oximetry 97 97 97 Oxygen Delivery Method Room Air Room Air BMI result Body Mass Index 15.4 Appearance: Awake. No acute distress. Eyes: Pupils equal, round and reactive to light. ENT: Pharynx normal. Neck: Normal inspection. Neck supple. No lymph nodes noted. No crepitus CVS: Normal heart rate and rhythm. Pulses normal. Normal S1 and S2 Respiratory: No respiratory distress. Breath sounds normal. No Wheezing. No rales Abdomen: Soft and nontender. No rigidity. No distention. good BS x4 Skin: Skin warm and dry. Normal skin color. Normal skin turgor. Extremities: No lower extremity edema. Neurovascular intact to all extremities. No Lacerations. No Rash Neuro: Awake. Not making eye contact staring into space positive gag avoids pain. Medications Administered Discontinued Medications Generic Name Dose Route Start Last Admin Trade Name Freq PRN Reason Stop Dose Admin Sodium Chloride 1,000 mls @ 999 mls/hr 07/25/23 12:30 03/14/24 13:46 Ns IV 07/25/23 13:30 999 mls/hr .Q1H1M CARINE Administration Medical Decision Making Medical Decision Making MDM Narrative: Patient not eating not drinking refusing any food at the [facility]. While patient was in the ED he became hungry ate a sandwich had some perfecto leida. Patient's labs consistent with some dehydration elevated sodium elevated BUN and creatinine. Given IV fluid hydration well-appearing. No distress. Comfortable. Patient evaluated by the care team. Recommended patient to be admitted to the psychiatric unit. IV fluids given. Additional maintenance fluids ordered. Currently in stable condition no distress. Differential Diagnosis Differential Diagnoses: The differential diagnosis associated with the presentation includes Schizoaffective disorder, catatonia Admission/Observation Consideration of admission/observation: Escalation of care including admission/observation considered Consult Healthcare Provider Management of the patient was discussed with: Behavioral Health Provider Lab Data MDM Lab Attestation statement: I reviewed the patient's lab results. 07/25/23 13:45 07/25/23 13:45 Labs: Lab Results 07/25/23 07/25/23 Range/Units 13:45 13:45 WBC 7.6 (4.8-10.8) X10*3/uL RBC 5.62 (4.60-5.80) X10*6/uL Hgb 17.1 (14.0-18.0) g/dl Hct 52.1 H (42.0-52.0) % MCV 92.7 (80.0-98.0) fL MCH 30.4 (27.0-33.0) pg MCHC 32.8 (31.0-36.0) g/dl RDW 12.5 (11.0-16.0) % Plt Count 193 (160-400) X10*3/uL MPV 9.0 L (9.4-12.4) fL Immature Gran % (Auto) 0.4 (0.0-0.4) % Neut % (Auto) 33.2 L (45-73) % Lymph % (Auto) 52.7 H (20-40) % [place] % (Auto) 11.6 H (2-11) % Eos % (Auto) 1.7 (0-4) % Baso % (Auto) 0.4 (0-2) % Lymph # (Auto) 4.0 (1.2-4.9) X10*3/uL [place] # (Auto) 0.9 (0.1-1.2) X10*3/uL Eos # (Auto) 0.1 (0.0-0.4) X10*3/uL Baso # (Auto) 0.0 (0.0-0.2) X10*3/uL Abs Immat Gran (auto) 0.03 (0.00-0.03) X10*3/uL Absolute Neuts (auto) 2.5 (2.0-8.3) x10*3/uL Absolute Nucleated RBC 0.000 (0.0-0.012) X10*3/uL Nucleated RBC % (auto) 0.0 (0.0-0.2) /100WBC Sodium 149 H (135-145) mmol/L Potassium 4.6 (3.3-5.1) mmol/L Chloride 112 H (96-108) mmol/L Carbon Dioxide 25 (22-29) mmol/L Anion Gap 17 (12-20) BUN 23 H (9-16) mg/dL Creatinine 0.91 (0.5-1.4) mg/dL Estim Creat Clear Calc 53.4 Estimated GFR > 60 Random Glucose 88 (60-115) mg/dL Calcium 10.5 H D 10.6 H (8.4-10.2) mg/dL Magnesium 2.4 (1.6-2.6) mg/dL Ammonia 40 (13-55) umol/L TSH 2.07 (0.32-4.0) uIU/mL Valproic Acid < 12.5 L (50.0-100.0) mcg/mL Independent Historian Clinical information obtained from an independent historian. History obtained from or confirmed by: EMS and Other (retirement) External Record Review External record reviewed: Outpatient record Chronic Conditions Schizoaffective disorder Social Determinants Patient?s care significantly limited by Social Determinants of Health including: Problems related to primary support group Discharge Plan Discharge Clinical Impression: Schizoaffective disorder, bipolar type, Dementia Patient Disposition: Admitted As Inpatient Prescriptions: No Action haloperidol 5 mg Tablet 5 mg PO BID 30 Days Qty: 60 0RF divalproex 250 mg Tablet,Delayed Release (Dr/Ec) 250 mg PO TID 30 Days Qty: 90 0RF olanzapine 10 mg Tablet 10 mg PO BEDTIME 30 Days Qty: 30 0RF acetaminophen 325 mg Tablet 650 mg PO Q6H PRN (Reason: Pain (Scale Score 1-3)) Qty: 60 0RF polyethylene glycol 3350 17 gram Powder In Packet 17 g PO DAILY PRN (Reason: Constipation) Qty: 30 0RF haloperidol decanoate 100 mg/mL solution 100 mg IM Q4W 30 Days Qty: 2 0RF thiamine HCl (vitamin B1) 100 mg Tablet 100 mg PO DAILY Qty: 30 0RF mirtazapine 15 mg tablet,disintegrating 15 mg PO BEDTIME 30 Days Qty: 30 0RF levetiracetam 500 mg Tablet Extended Release 24 Hr 500 mg PO BID 30 Days Qty: 60 0RF Odefsey 200-25-25 mg tablet 1 tab PO DAILY Qty: 30 0RF albuterol sulfate 90 mcg/actuation HFA aerosol inhaler 2 puff inhalation Q4H PRN (Reason: Wheezing) olanzapine 5 mg tablet 5 mg PO BID@0800,1400 lorazepam 1 mg tablet 1 mg PO Q4H PRN (Reason: Agitation)
[2023-07-25] MEDS: 0.9 % Sodium Chloride 1,000 ML 999 ML IV ×2 (13:46→20:55)
[2023-07-25 13:51] LABS: MANUAL DIFF FLAG NO
[2023-07-25 13:53] LABS: Basophils Percent Auto 0.4 % (0-2); Eosinophils Absolute Auto 0.1 X10*3/uL (0.0-0.4); Eosinophils Percent Auto 1.7 % (0-4); Hematocrit 52.1 % (42.0-52.0); Hemoglobin 17.1 g/dl (14.0-18.0); Imm Gran Abs Auto 0.03 X10*3/uL (0.00-0.03); Imm Gran Pct Auto 0.4 % (0.0-0.4); Lymphocytes Percent Auto 52.7 % (20-40); Mean Corpuscular HGB Conc 32.8 g/dl (31.0-36.0); Mean Corpuscular Hemoglobin 30.4 pg (27.0-33.0); Mean Corpuscular Volume 92.7 fL (80.0-98.0); Monocytes Absolute Auto 0.9 X10*3/uL (0.1-1.2); Monocytes Percent Auto 11.6 % (2-11); Neutrophils Absolute Auto 2.5 x10*3/uL (2.0-8.3); Neutrophils Percent Auto 33.2 % (45-73); Platelet Count 193 X10*3/uL (160-400); Red Blood Count 5.62 X10*6/uL (4.60-5.80); Red Cell Distribution Width 12.5 % (11.0-16.0); White Blood Count 7.6 X10*3/uL (4.8-10.8)
[2023-07-25 14:07] LABS: Ammonia 40 umol/L (13-55)
[2023-07-25 14:12] LABS: Valproate < 12.5 mcg/mL (50.0-100.0)
[2023-07-25 14:17] LABS: Anion Gap 17 (12-20); Blood Urea Nitrogen 23 mg/dL (9-16); Calcium 10.5 mg/dL (8.4-10.2); Calcium 10.6 mg/dL (8.4-10.2); Carbon Dioxide 25 mmol/L (22-29); Chloride 112 mmol/L (96-108); Creatinine Clr Calc Pharmacy 53.4; Estimated Glomerular Filt Rate > 60; Glucose Random 88 mg/dL (60-115); Magnesium 2.4 mg/dL (1.6-2.6); Potassium 4.6 mmol/L (3.3-5.1); Sodium 149 mmol/L (135-145)
[2023-07-25 14:37] LABS: TSH reflex Free T4 2.07 uIU/mL (0.32-4.0)
--- NOTE | 2023-07-25 14:56 | PHA.MEDREC ---
Pharmacy Consult ? Medication Reconciliation Pharmacy has completed the medication reconciliation. Patient came from [facility] with med list. Lucia Martinez, DeniaD
[2023-07-25 15:48] VITALS: BP 134/89; PULSE 95; RESP 16; TEMP 36.8; O2SAT 97
[2023-07-25 20:24] VITALS: BP 153/95; PULSE 88; RESP 16; TEMP 36.6; O2SAT 97
[2023-07-25] MEDS: Dextrose 5 % and 0.45 % NaCl 1,000 ML 125 ML IVCONT (20:55)
--- NOTE | 2023-07-26 | ECG_ITS ---
Test Reason : clearence for psych unit Blood Pressure : / mmHG Vent. Rate : 101 BPM Atrial Rate : 101 BPM P-R Int : 180 ms QRS Dur : 070 ms QT Int : 370 ms P-R-T Axes : 058 -33 043 degrees QTc Int : 479 ms Sinus tachycardia Left axis deviation Increased R/S ratio in V1, consider early transition or posterior infarct Abnormal ECG When compared with ECG of 25-JUL-2023 13:02, No significant change was found Referred By: Lavern Luna Electronically Signed By:ÁNGEL TORRES MD
[2023-07-26 01:24] VITALS: BP 155/91; PULSE 84; RESP 16; TEMP 36.7; O2SAT 99
[2023-07-26 01:49] LABS: Appearance Urine Clear; Color Urine Dark Yellow; Glucose Urine UA Negative (Negative); Leukocyte Esterase Urine Negative (Negative); Nitrite Urine Negative (Negative); Specific Gravity - Urine 1.025 (1.005-1.025); UMIC TRIGGER UACC YES; Urine Blood Negative (Negative); Urine Ketones 15 mg/dL (Negative); Urine Protein 100 (2+) mg/dL (Neg-Trace)
[2023-07-26 01:52] LABS: Bacteria Urine None Seen (None Seen); Hyaline Casts Urine 0-2 /LPF (0-2); RBC Urine 0-2 /HPF (0-2); Squamous Epithelial Cell Urine 0-2 /HPF (0-2); WBC Urine 0-5 /HPF (0-5)
[2023-07-26 02:04] LABS: Amphetamine Screen Urine Not Detected (Not Detect); Barbiturates, Urine Not Detected (Not Detect); Cannabinoid Screen Urine Not Detected (Not Detect); Cocaine Screen Urine Not Detected (Not Detect); Fentanyl, urine Not Detected (Not Detect); Opiate Screen Urine Not Detected (Not Detect); Phencyclidine Screen Urine Not Detected (Not Detect)
[2023-07-26 02:19] LABS: Benzodiazepines Screen Urine Not Detected (Not Detect)
[2023-07-26 02:25] LABS: Influenza A PCR NEGATIVE (Negative); Influenza B PCR NEGATIVE (Negative); Resp Syncy Virus RNA Qual PCR NEGATIVE (Negative); SARS COV2 PCR INHOUSE NEGATIVE (Negative)
[2023-07-26] MEDS: Dextrose 5 % and 0.45 % NaCl 1,000 ML 125 ML IVCONT (04:56)
[2023-07-26 06:21] VITALS: BP 170/96; PULSE 83; RESP 17; TEMP 36.7; O2SAT 99
[2023-07-26 08:47] VITALS: BP 161/95; PULSE 88; RESP 16; TEMP 36.9; O2SAT 99
[2023-07-26] MEDS: HaloperidoL 5 MG TABLET PO ×2 (08:49→21:23)
[2023-07-26] MEDS: Thiamine HCL 100 MG TABLET PO (08:50)
[2023-07-26] MEDS: OLANZapine 5 MG TABLET PO ×2 (08:50→14:53)
[2023-07-26] MEDS: Divalproex Sodium 250 MG TABLET.DR PO ×3 (08:50→21:23)
[2023-07-26] MEDS: levETIRAcetam 500 MG TABLET PO ×2 (08:51→21:23)
--- NOTE | 2023-07-26 08:53 | PC.NURSE ---
Pt resting in bed, alert and answering questions, has flat affect. Breathing even and unlabored, skin WNL. Pt denies any pain when asked. Pt does report feeling hungry and eats snacks provided with no issues
--- NOTE | 2023-07-26 11:27 | PC.NURSE ---
PA made aware of BP and ?discontinue fluids, will give something for BP and d/c fluids. Likely admit to [facility] later today
--- NOTE | 2023-07-26 11:28 | PC.NURSE ---
Pt cleaned for urine and stool incontinence. Calm and cooperative. Moved to 6h
[2023-07-26] MEDS: amLODIPine Besylate 5 MG TABLET PO (11:34)
[2023-07-26 13:03] LABS: Alanine Aminotransferase 28 U/L (0-40); Albumin Level 3.2 g/dL (3.5-5.0); Alkaline Phosphatase 73 U/L (39-117); Anion Gap 13 (12-20); Aspartate Amino Transferase 34 U/L (5-37); Bilirubin Total 0.5 mg/dL (0.0-1.0); Blood Urea Nitrogen 8 mg/dL (9-16); Calcium 9.4 mg/dL (8.4-10.2); Carbon Dioxide 28 mmol/L (22-29); Chloride 109 mmol/L (96-108); Creatinine Clr Calc Pharmacy 60.7; Estimated Glomerular Filt Rate > 60; Glucose Random 109 mg/dL (60-115); Potassium 3.6 mmol/L (3.3-5.1); Sodium 146 mmol/L (135-145); Total Protein 8.2 g/dL (6.5-8.0)
[2023-07-26 13:29] VITALS: BP 152/99; PULSE 90; RESP 16; TEMP 36.9; O2SAT 98
[2023-07-26 14:29] VITALS: BP 155/102; PULSE 114; RESP 16; TEMP 36.3; O2SAT 97
[2023-07-26 14:41] VITALS: BMI 15.9
--- NOTE | 2023-07-26 15:54 | PC.ADMIT ---
Aristoe arrived to the unit at 1415 on a 12B, skin check done by insurance underwriter sales and female RN. When asked how he felt did not answer, affect appears flat, delayed responses, he currently has hospital attire. Per assessment he was brought in via ambulance from [facility] due to agitation, medication refusal, catatonia and not eating for the past three days. Aristeo has a diagnosis of Schizoaffective Disorder Bipolar Type and Dementia, he has a legal guardian and a current [facility] order in place.
--- NOTE | 2023-07-26 16:02 | MHC.CLN ---
NUTRITION PATIENT KNOWN FROM [facility] AD[facility]. BMI=15.9, UNDERWEIGHT. DIET=REGULAR. ADDING ENURE TID TO INCREASE NUTRITIONAL INTAKE. PROVIDES 1050 KCALS, 60 G PROTEIN. COMPLETE CLINICAL NUTRITION ASSESSMENT TO FOLLOW.
[2023-07-26 18:00] VITALS: BP 132/72; PULSE 89; RESP 16; TEMP 36.9; O2SAT 95
[2023-07-26] MEDS: Mirtazapine 15 MG TABLET PO (21:23)
[2023-07-26] MEDS: OLANZapine 10 MG TABLET PO (21:23)
[2023-07-27] MEDS: Acetaminophen 325 MG TABLET 650 MG PO (04:24)
--- NOTE | 2023-07-27 04:29 | PC.NURSE ---
Pt given at 04:24h, Tylenol 650mg for c/o headache w/ effect. Pt went back to sleep.
[2023-07-27 07:55] LABS: Alanine Aminotransferase 24 U/L (0-40); Albumin Level 3.1 g/dL (3.5-5.0); Alkaline Phosphatase 75 U/L (39-117); Anion Gap 14 (12-20); Aspartate Amino Transferase 23 U/L (5-37); Bilirubin Total 0.4 mg/dL (0.0-1.0); Blood Urea Nitrogen 14 mg/dL (9-16); Calcium 9.5 mg/dL (8.4-10.2); Carbon Dioxide 24 mmol/L (22-29); Chloride 112 mmol/L (96-108); Cholesterol 129 mg/dL (<200); Creatinine Clr Calc Pharmacy 70.7; Estimated Glomerular Filt Rate > 60; Glucose Fasting 114 mg/dL (60-99); HDL Cholesterol 37 mg/dL (>40); LDL Cholesterol Calculated 74 mg/dL (<100); Potassium 3.6 mmol/L (3.3-5.1); Sodium 146 mmol/L (135-145); Total Protein 7.6 g/dL (6.5-8.0); Triglycerides 92 mg/dL (<150)
[2023-07-27 08:09] LABS: Thyroid Stimulating Hormone 0.51 uIU/mL (0.32-4.0)
[2023-07-27 08:16] LABS: Vitamin B12 823 pg/mL (200-900)
[2023-07-27 08:53] VITALS: BP 139/78; PULSE 104; RESP 18; TEMP 36.6; O2SAT 94
[2023-07-27] MEDS: levETIRAcetam 500 MG TABLET PO ×2 (08:57→21:17)
[2023-07-27] MEDS: Divalproex Sodium 250 MG TABLET.DR PO ×3 (08:57→21:17)
[2023-07-27] MEDS: Thiamine HCL 100 MG TABLET PO (08:57)
[2023-07-27] MEDS: amLODIPine Besylate 5 MG TABLET PO (08:57)
[2023-07-27] MEDS: HaloperidoL 5 MG TABLET PO ×2 (08:57→21:17)
[2023-07-27] MEDS: OLANZapine 5 MG TABLET PO ×2 (08:57→15:21)
--- NOTE | 2023-07-27 09:56 | HO.PSYADMNOT ---
HPI Date of Service: 07/27/23 Chief Complaint: catatonia Sources of Information: patient interviewed, chart reviewed and crisis/core team assessment reviewed HPI Subjective Notes: Moses Warning (given and shows understanding) and Section 12B Narrative: Mr. Corrales is a 67 year-old male with hx of schizophrenia who was sent on sect 12a from [facility] home due to not eating or drinking for the past 4 days. In the ED, he presented with signs of dehydration and received IV fluids with good effect. Pt was recently discharged from due to increase paranoid delusions. On the unit, pt presents as calm. He reports he is doing better and eating well. He denies suicidal or homicidal ideation. He also denies overt delusional content or visual or auditory hallucinations. He has been taking medications as prescribed per jass's without any resistance. Past Psychiatric History: Inpatient: 05/2023, multiple in the past. -Current medication: Haldol Dec 50 mg Q28 days, olanzapine 20 mg QHS, remeron 15 mg QHS. Jass?s order: haldol dec 25 mg IM Qmo, zyprexa 20 mg QD, haldol 1.5 mg BID PRN. Alternatives risperdal/ risperdal consta up to 8 mg QD/ 50 mg [id number] and seroquel up to Medical Evaluation Reviewed: Yes [facility] Medical History Dementia HIV (human immunodeficiency virus infection) Bipolar 1 disorder Hepatitis C Liver failure HTN (hypertension) Family History: Denies Social History: -Aristeo currently resides at [facility] in [place]. -Per chart, pt was born in [facility]. He has 8 brothers and 2 sisters. He is a , no children. [facility] staff reported that Aristeo has had no visitors since he has been there. Trauma History: unknown Diagnostics Vital Signs (24Hr): Vital Signs - 24 hr 07/26/23 13:29 07/26/23 14:29 07/26/23 18:00 Temperature 98.5 F 97.3 F 98.5 F Pulse Rate 90 114 H 89 Respiratory Rate 16 16 16 Blood Pressure 152/99 H 155/102 H 132/72 Pulse Oximetry 98 97 95 Oxygen Delivery Method Room Air Room Air Room Air 07/27/23 08:53 Temperature 97.8 F Pulse Rate 104 H Respiratory Rate 18 Blood Pressure 139/78 Pulse Oximetry 94 Oxygen Delivery Method BMI result Body Mass Index 15.9 Labs 07/25/23 13:45 07/27/23 07:21 Labs: Laboratory Results - last 48 hr 07/25/23 07/25/23 07/26/23 13:45 13:45 01:17 WBC 7.6 RBC 5.62 Hgb 17.1 Hct 52.1 H MCV 92.7 MCH 30.4 MCHC 32.8 RDW 12.5 Plt Count 193 MPV 9.0 L Immature Gran % (Auto) 0.4 Neut % (Auto) 33.2 L Lymph % (Auto) 52.7 H [place] % (Auto) 11.6 H Eos % (Auto) 1.7 Baso % (Auto) 0.4 Lymph # (Auto) 4.0 [place] # (Auto) 0.9 Eos # (Auto) 0.1 Baso # (Auto) 0.0 Abs Immat Gran (auto) 0.03 Absolute Neuts (auto) 2.5 Absolute Nucleated RBC 0.000 Nucleated RBC % (auto) 0.0 Sodium 149 H Potassium 4.6 Chloride 112 H Carbon Dioxide 25 Anion Gap 17 BUN 23 H Creatinine 0.91 Estim Creat Clear Calc 53.4 Estimated GFR > 60 Random Glucose 88 Fasting Glucose Calcium 10.5 H D 10.6 H Magnesium 2.4 Total Bilirubin AST ALT Alkaline Phosphatase Ammonia 40 Total Protein Albumin Triglycerides Cholesterol LDL Cholesterol, Calc HDL Cholesterol Vitamin B12 TSH 2.07 Urine Color Dark Yellow Urine Appearance Clear Urine pH 5.0 Ur Specific [place] 1.025 Urine Protein 100 (2+) H Urine Glucose (UA) Negative Urine Ketones 15 Urine Blood Negative Urine Nitrite Negative Ur Leukocyte Esterase Negative Urine RBC 0-2 Urine WBC 0-5 Ur Squamous Epith Cells 0-2 Urine Bacteria None Seen Hyaline Casts 0-2 Urine Opiates Screen Not Detected Urine Fentanyl Screen Not Detected Ur Barbiturates Screen Not Detected Valproic Acid < 12.5 L Ur Phencyclidine Scrn Not Detected Ur Amphetamines Screen Not Detected U Benzodiazepines Scrn Not Detected Urine Cocaine Screen Not Detected U Marijuana (THC) Screen Not Detected Influenza Type A (PCR) NEGATIVE Influenza Type B (PCR) NEGATIVE RSV RNA Qual (PCR) NEGATIVE SARS-CoV-2 RNA (RT-PCR) NEGATIVE 07/26/23 07/27/23 12:29 07:21 WBC RBC Hgb Hct MCV MCH MCHC RDW Plt Count MPV Immature Gran % (Auto) Neut % (Auto) Lymph % (Auto) [place] % (Auto) Eos % (Auto) Baso % (Auto) Lymph # (Auto) [place] # (Auto) Eos # (Auto) Baso # (Auto) Abs Immat Gran (auto) Absolute Neuts (auto) Absolute Nucleated RBC Nucleated RBC % (auto) Sodium 146 H 146 H Potassium 3.6 D 3.6 Chloride 109 H 112 H Carbon Dioxide 28 24 Anion Gap 13 14 BUN 8 L 14 Creatinine 0.80 0.71 Estim Creat Clear Calc 60.7 70.7 Estimated GFR > 60 > 60 Random Glucose 109 Fasting Glucose 114 H Calcium 9.4 D 9.5 Magnesium Total Bilirubin 0.5 0.4 AST 34 23 ALT 28 24 Alkaline Phosphatase 73 75 Ammonia Total Protein 8.2 H 7.6 Albumin 3.2 L 3.1 L Triglycerides 92 Cholesterol 129 LDL Cholesterol, Calc 74 HDL Cholesterol 37 L Vitamin B12 823 TSH 0.51 Urine Color Urine Appearance Urine pH Ur Specific [place] Urine Protein Urine Glucose (UA) Urine Ketones Urine Blood Urine Nitrite Ur Leukocyte Esterase Urine RBC Urine WBC Ur Squamous Epith Cells Urine Bacteria Hyaline Casts Urine Opiates Screen Urine Fentanyl Screen Ur Barbiturates Screen Valproic Acid Ur Phencyclidine Scrn Ur Amphetamines Screen U Benzodiazepines Scrn Urine Cocaine Screen U Marijuana (THC) Screen Influenza Type A (PCR) Influenza Type B (PCR) RSV RNA Qual (PCR) SARS-CoV-2 RNA (RT-PCR) Imaging Radiology Impressions: ITS Impressions Chest X-Ray 07/25/23 12:45 IMPRESSION: No acute abnormality. Meds/Allergies Meds Home Medications Medication Instructions Recorded Confirmed Type albuterol sulfate 90 mcg/actuation 2 puff inhalation Q4H PRN Wheezing 07/25/23 07/25/23 History aerosol inhaler lorazepam 1 mg tablet 1 mg PO Q4H PRN Agitation 07/25/23 07/25/23 History olanzapine 5 mg tablet 5 mg PO BID@0800,1400 07/25/23 07/25/23 History amlodipine 5 mg tablet 5 mg PO DAILY 07/26/23 07/26/23 History Allergies Allergies Allergy/AdvReac Type Severity Reaction Status Date / Time No Known Allergies Allergy Unverified 01/28/20 16:07 [No Known Allergies*] Mental Status Exam Mental Status Exam Narrative: Appearance: thin, malnourish male, in NAD Behavior: cooperative Psychomotor: no agitation or retardation noted Speech: mumbles, soft tone, spontaneous TP: poverty of thought, but able to answer simple questions TC: feeling better Mood: good Affect: constricted Si: denies HI: denies VH/AH: no overt signs delusions: no overt delusional content noted or reported. Insight/judgment: impaired x 2. memory/cog: alert, oriented x 3. Assessment & Plan Assessment & Plan (1) Schizoaffective disorder, bipolar type: Status: Acute Code(s): F25.0 - Schizoaffective disorder, bipolar type (2) Dementia: Status: Acute Code(s): F03.90 - Unspecified dementia, unspecified severity, without behavioral disturbance, psychotic disturbance, mood disturbance, and anxiety Plan Mr. Corrales is a 67 year-old male with hx of schizophrenia who was sent on sect 12a due to not eating or drinking for about 4 days. In the ED he was found to be dehydrated, given IV fluids with good effect. On the unit, pt presents alert, he is eating and drinking well. No behavioral concerns, as he usually presents when floridly psychotic. He is taking medications as prescribed. PLAN 1. admit to s1, sect 12b, 15 minutes checks for safety 2. continue current medications. He does have a jass's Patient educated on: diagnosis and medication risk/benefits Reason for continued inpatient stay Substantial Risk for: inability to function Statement Statement: I have reviewed the history and physical and performed a pertinent examination on my patient. No changes have occurred unless specified. If the History and Physical was not performed prior to admission, the Hospitalist's service will be consulted for completing the admission physical. Time Spent With Patient Time: Total time managing care of this patient today ____ minutes.
[2023-07-27 18:00] VITALS: BP 110/74; PULSE 107; RESP 18; TEMP 36.6; O2SAT 97
[2023-07-27] MEDS: OLANZapine 10 MG TABLET PO (21:17)
[2023-07-27] MEDS: Mirtazapine 15 MG TABLET PO (21:17)
[2023-07-28 08:02] VITALS: BP 146/84; PULSE 100; RESP 18; TEMP 36.9; O2SAT 98
[2023-07-28] MEDS: Thiamine HCL 100 MG TABLET PO (08:42)
[2023-07-28] MEDS: levETIRAcetam 500 MG TABLET PO ×2 (08:42→21:22)
[2023-07-28] MEDS: amLODIPine Besylate 5 MG TABLET PO (08:42)
[2023-07-28] MEDS: OLANZapine 5 MG TABLET PO ×2 (08:42→15:03)
[2023-07-28] MEDS: HaloperidoL 5 MG TABLET PO ×2 (08:42→21:22)
[2023-07-28] MEDS: Divalproex Sodium 250 MG TABLET.DR PO ×3 (08:42→21:22)
--- NOTE | 2023-07-28 13:40 | HO.PSYCHPN ---
Subjective Subjective Date of Service: 07/28/23 Reason For Visit: catatonia Subjective Notes: Section 12B Interim History: Pt slept through the night. No behavioral concerns. He is taking medications as prescribed. No overt psychosis or delusions. eating and drinking well. no concerns in terms of catatonia. Review of Systems Review of Systems Unable to obtain review of systems Mental Status Exam Mental Status Exam Narrative: Appearance: thin, malnourish male, in NAD Behavior: cooperative Psychomotor: no agitation or retardation noted Speech: mumbles, soft tone, spontaneous TP: poverty of thought, but able to answer simple questions TC: feeling better Mood: good Affect: constricted Si: denies HI: denies VH/AH: no overt signs delusions: no overt delusional content noted or reported. Insight/judgment: impaired x 2. memory/cog: alert, oriented x 3. Diagnostics Vital Signs (24Hr): Vital Signs - 24 hr 07/27/23 18:00 07/28/23 08:02 Temperature 98 F 98.5 F Pulse Rate 107 H 100 Respiratory Rate 18 18 Blood Pressure 110/74 146/84 H Pulse Oximetry 97 98 Oxygen Delivery Method Room Air Room Air BMI result Body Mass Index 15.9 Labs 07/25/23 13:45 07/27/23 07:21 Labs: Laboratory Results - last 48 hr 07/27/23 07:21 Sodium 146 H Potassium 3.6 Chloride 112 H Carbon Dioxide 24 Anion Gap 14 BUN 14 Creatinine 0.71 Estim Creat Clear Calc 70.7 Estimated GFR > 60 Fasting Glucose 114 H Calcium 9.5 Total Bilirubin 0.4 AST 23 ALT 24 Alkaline Phosphatase 75 Total Protein 7.6 Albumin 3.1 L Triglycerides 92 Cholesterol 129 LDL Cholesterol, Calc 74 HDL Cholesterol 37 L Vitamin B12 823 TSH 0.51 Imaging Radiology Impressions: ITS Impressions Chest X-Ray 07/25/23 12:45 IMPRESSION: No acute abnormality. Medications Medications Current Medications Acetaminophen (Acetaminophen 325 Mg Tablet) 650 mg PO Q6H PRN PRN Reason: Pain (Scale Score 1-3) Last Admin: 07/27/23 04:24 Dose: 650 mg Al Hydroxide/Mg Hydroxide (Magnesium Hydrox/Alum Hydrox 30 Ml Oral.Susp) 30 ml PO Q6H PRN PRN Reason: Heartburn/Nausea Albuterol Sulfate (Albuterol Sulfate 90 Mcg 8 Gm Inhaler) 2 puff INHALE Q4H PRN PRN Reason: Wheezing Amlodipine Besylate (Amlodipine Besylate 5 Mg Tablet) 5 mg PO DAILY [facility]; Protocol Last Admin: 07/28/23 08:42 Dose: 5 mg Divalproex Sodium (Divalproex Sodium 250 Mg Tablet.Dr) 250 mg PO TID [facility] Last Admin: 07/28/23 08:42 Dose: 250 mg Haloperidol (Haloperidol 5 Mg Tablet) 5 mg PO BID [facility] Last Admin: 07/28/23 08:42 Dose: 5 mg Haloperidol Decanoate (Haloperidol Decanoate 50 Mg/Ml Vial) 100 mg IM Q28D [facility] Hydroxyzine HCl (Hydroxyzine Hcl 25 Mg Tablet) 25 mg PO Q6H PRN PRN Reason: Anxiety Levetiracetam (Levetiracetam 500 Mg Tablet) 500 mg PO BID [facility] Last Admin: 07/28/23 08:42 Dose: 500 mg Lorazepam (Lorazepam 1 Mg Tablet) 1 mg PO Q4H PRN PRN Reason: Agitation Magnesium Hydroxide (Milk Of Magnesia 30 Ml Oral.Susp) 30 ml PO DAILY PRN PRN Reason: Constipation Mirtazapine (Mirtazapine 15 Mg Tablet) 15 mg PO BEDTIME [facility] Last Admin: 07/27/23 21:17 Dose: 15 mg Olanzapine (Olanzapine 5 Mg Tablet) 5 mg PO BID@0800,1400 [facility] Last Admin: 07/28/23 08:42 Dose: 5 mg Olanzapine (Olanzapine 10 Mg Tablet) 10 mg PO BEDTIME [facility] Last Admin: 07/27/23 21:17 Dose: 10 mg Polyethylene Glycol (Polyethylene Glycol 3350 17 Gm Powd.Pack) 17 gm PO DAILY PRN PRN Reason: Constipation Thiamine HCl (Thiamine Hcl 100 Mg Tablet) 100 mg PO DAILY [facility] Last Admin: 07/28/23 08:42 Dose: 100 mg Trazodone HCl (Trazodone Hcl 50 Mg Tablet) 50 mg PO BEDTIME PRN PRN Reason: Insomnia Allergies Allergies Allergy/AdvReac Type Severity Reaction Status Date / Time No Known Allergies Allergy Unverified 01/28/20 16:07 [No Known Allergies*] Assessment & Plan Assessment & Plan (1) Schizoaffective disorder, bipolar type: Status: Acute Code(s): F25.0 - Schizoaffective disorder, bipolar type (2) Dementia: Status: Acute Code(s): F03.90 - Unspecified dementia, unspecified severity, without behavioral disturbance, psychotic disturbance, mood disturbance, and anxiety Plan Mr. Simms is a 67 year-old male with hx of schizophrenia. [facility] on sect 12b due to not eating and drinking. He was found to be dehydrated in the ED. He was given IV fluids with good effect. On the unit, he does not present with overt delusional content or paranoid, as he usually does. PLAN continue tx. he is on sect 12b, appear close to baseline. Reason for continued inpatient stay Substantial Risk for: inability to function Time Spent With Patient Time: Total time managing care of this patient today ____ minutes.
[2023-07-28] MEDS: OLANZapine 10 MG TABLET PO (21:22)
[2023-07-28] MEDS: Mirtazapine 15 MG TABLET PO (21:22)
[2023-07-28 21:33] VITALS: BP 103/68; PULSE 104; RESP 18; TEMP 36.9; O2SAT 95
[2023-07-29 07:30] VITALS: BP 113/67; PULSE 113; RESP 16; TEMP 36.2; O2SAT 94
[2023-07-29] MEDS: levETIRAcetam 500 MG TABLET PO ×2 (08:55→20:57)
[2023-07-29] MEDS: Divalproex Sodium 250 MG TABLET.DR PO ×3 (08:55→20:57)
[2023-07-29] MEDS: HaloperidoL 5 MG TABLET PO ×2 (08:56→20:56)
[2023-07-29] MEDS: amLODIPine Besylate 5 MG TABLET PO (08:56)
[2023-07-29] MEDS: Thiamine HCL 100 MG TABLET PO (08:56)
[2023-07-29] MEDS: OLANZapine 5 MG TABLET PO ×2 (09:08→15:56)
[2023-07-29 10:47] VITALS: BMI 15.9
--- NOTE | 2023-07-29 10:59 | MHC.CLN ---
NUTRITION REGULAR DIET. ENSURE TID PROVIDES ADDITIONAL 1050 KCALS, 60 G PROTEIN. PATIENT RECEPTIVE TO TAKING ENSURE. CATATONIA PRIOR TO ADM WITH PATIENT NOT EATING OR DRINKING. APPEARS TO BE EATING AND DRINKING WELL. WEIGHT STABLE X 4 MONTHS. QUALIFIES SEVERE MALNUTRITION IN THE CONTEXT OF CHRONIC ILLNESS. FOLLOW FOR WEIGHT AND INTAKE. SEE CLINICAL NUTRITION ASSESSMENT 07/29/23.
--- NOTE | 2023-07-29 16:01 | P.PNPSI_ITS ---
Subjective Subjective Date of Service: 07/29/23 Reason For Visit: catatonia Interim History: Pt slept through the night. No behavioral concerns. He is taking medications as prescribed. No overt psychosis or delusions. eating and drinking well. no concerns in terms of catatonia. He reports he is doing well. Not conversing much but denies any overt concern. Review of Systems Review of Systems Unable to obtain review of systems Mental Status Exam Mental Status Exam Narrative: Appearance: thin, malnourish male, in NAD Behavior: cooperative Psychomotor: no agitation or retardation noted Speech: mumbles, soft tone, spontaneous TP: poverty of thought, but able to answer simple questions TC: feeling better Mood: good Affect: constricted Si: denies HI: denies VH/AH: no overt signs delusions: no overt delusional content noted or reported. Insight/judgment: impaired x 2. memory/cog: alert, oriented x 3. Diagnostics Vital Signs (24Hr): Vital Signs - 24 hr 07/28/23 21:33 07/29/23 07:30 Temperature 98.4 F 97.1 F Pulse Rate 104 H 113 H Respiratory Rate 18 16 Blood Pressure 103/68 113/67 Pulse Oximetry 95 94 Oxygen Delivery Method Room Air Room Air BMI result Body Mass Index 15.9 Labs 07/25/23 13:45 07/27/23 07:21 Imaging Radiology Impressions: ITS Impressions Chest X-Ray 07/25/23 12:45 IMPRESSION: No acute abnormality. Medications Medications Current Medications Acetaminophen (Acetaminophen 325 Mg Tablet) 650 mg PO Q6H PRN PRN Reason: Pain (Scale Score 1-3) Last Admin: 07/27/23 04:24 Dose: 650 mg Al Hydroxide/Mg Hydroxide (Magnesium Hydrox/Alum Hydrox 30 Ml Oral.Susp) 30 ml PO Q6H PRN PRN Reason: Heartburn/Nausea Albuterol Sulfate (Albuterol Sulfate 90 Mcg 8 Gm Inhaler) 2 puff INHALE Q4H PRN PRN Reason: Wheezing Amlodipine Besylate (Amlodipine Besylate 5 Mg Tablet) 5 mg PO DAILY [facility]; Protocol Last Admin: 07/29/23 08:56 Dose: 5 mg Divalproex Sodium (Divalproex Sodium 250 Mg Tablet.Dr) 250 mg PO TID [facility] Last Admin: 07/29/23 15:56 Dose: 250 mg Haloperidol (Haloperidol 5 Mg Tablet) 5 mg PO BID [facility] Last Admin: 07/29/23 08:56 Dose: 5 mg Haloperidol Decanoate (Haloperidol Decanoate 50 Mg/Ml Vial) 100 mg IM Q28D [facility] Hydroxyzine HCl (Hydroxyzine Hcl 25 Mg Tablet) 25 mg PO Q6H PRN PRN Reason: Anxiety Levetiracetam (Levetiracetam 500 Mg Tablet) 500 mg PO BID [facility] Last Admin: 07/29/23 08:55 Dose: 500 mg Lorazepam (Lorazepam 1 Mg Tablet) 1 mg PO Q4H PRN PRN Reason: Agitation Magnesium Hydroxide (Milk Of Magnesia 30 Ml Oral.Susp) 30 ml PO DAILY PRN PRN Reason: Constipation Mirtazapine (Mirtazapine 15 Mg Tablet) 15 mg PO BEDTIME [facility] Last Admin: 07/28/23 21:22 Dose: 15 mg Olanzapine (Olanzapine 5 Mg Tablet) 5 mg PO BID@0800,1400 [facility] Last Admin: 07/29/23 15:56 Dose: 5 mg Olanzapine (Olanzapine 10 Mg Tablet) 10 mg PO BEDTIME [facility] Last Admin: 07/28/23 21:22 Dose: 10 mg Polyethylene Glycol (Polyethylene Glycol 3350 17 Gm Powd.Pack) 17 gm PO DAILY PRN PRN Reason: Constipation Thiamine HCl (Thiamine Hcl 100 Mg Tablet) 100 mg PO DAILY [facility] Last Admin: 07/29/23 08:56 Dose: 100 mg Trazodone HCl (Trazodone Hcl 50 Mg Tablet) 50 mg PO BEDTIME PRN PRN Reason: Insomnia Allergies Allergies Allergy/AdvReac Type Severity Reaction Status Date / Time No Known Allergies Allergy Unverified 01/28/20 16:07 [No Known Allergies*] Assessment & Plan Assessment & Plan (1) Schizoaffective disorder, bipolar type: Status: Acute Code(s): F25.0 - Schizoaffective disorder, bipolar type (2) Dementia: Status: Acute Code(s): F03.90 - Unspecified dementia, unspecified severity, without behavioral disturbance, psychotic disturbance, mood disturbance, and anxiety Plan Mr. Simms is a 67 year-old male with hx of schizophrenia. Pt sent from [facility] on sect 12b due to not eating and drinking. He was found to be dehydrated in the ED. He was given IV fluids with good effect. On the unit, he does not present with overt delusional content or paranoid, as he usually does. PLAN 1. continue tx. he is on sect 12b, appear close to baseline. Reason for continued inpatient stay Substantial Risk for: inability to function Time Spent With Patient Time: Total time managing care of this patient today ____ minutes.
[2023-07-29 18:00] VITALS: BP 113/70; PULSE 118; RESP 16; TEMP 36.6; O2SAT 92
[2023-07-29] MEDS: OLANZapine 10 MG TABLET PO (20:57)
[2023-07-29] MEDS: Mirtazapine 15 MG TABLET PO (20:58)
[2023-07-30 06:00] VITALS: BP 118/78; PULSE 117; RESP 16; TEMP 36.2; O2SAT 98
[2023-07-30] MEDS: HaloperidoL 5 MG TABLET PO ×2 (08:35→20:26)
[2023-07-30] MEDS: amLODIPine Besylate 5 MG TABLET PO (08:35)
[2023-07-30] MEDS: Divalproex Sodium 250 MG TABLET.DR PO ×3 (08:35→20:26)
[2023-07-30] MEDS: levETIRAcetam 500 MG TABLET PO ×2 (08:35→20:26)
[2023-07-30] MEDS: Thiamine HCL 100 MG TABLET PO (08:35)
[2023-07-30] MEDS: OLANZapine 5 MG TABLET PO ×2 (08:35→15:40)
--- NOTE | 2023-07-30 10:09 | P.PNPSI_ITS ---
Subjective Subjective Date of Service: 07/30/23 Reason For Visit: catatonia Subjective Notes: Section 12B Interim History: Pt slept through the night. He is much more pleasant than previous admission when he has been very paranoid and suspicious. He denies SI/HI. no overt delusional content noted or reported. He is taking medications as prescribed. Review of Systems Review of Systems Unable to obtain review of systems Mental Status Exam Mental Status Exam Narrative: Appearance: thin, malnourish male, in NAD Behavior: cooperative Psychomotor: no agitation or retardation noted Speech: mumbles, soft tone, spontaneous TP: poverty of thought, but able to answer simple questions TC: feeling better Mood: good Affect: constricted Si: denies HI: denies VH/AH: no overt signs delusions: no overt delusional content noted or reported. Insight/judgment: impaired x 2. memory/cog: alert, oriented x 3. Diagnostics Vital Signs (24Hr): Vital Signs - 24 hr 07/29/23 18:00 07/30/23 06:00 Temperature 98 F 97.2 F Pulse Rate 118 H 117 H Respiratory Rate 16 16 Blood Pressure 113/70 118/78 Pulse Oximetry 92 98 Oxygen Delivery Method Room Air Room Air BMI result Body Mass Index 15.9 Labs 07/25/23 13:45 07/27/23 07:21 Imaging Radiology Impressions: ITS Impressions Chest X-Ray 07/25/23 12:45 IMPRESSION: No acute abnormality. Medications Medications Current Medications Acetaminophen (Acetaminophen 325 Mg Tablet) 650 mg PO Q6H PRN PRN Reason: Pain (Scale Score 1-3) Last Admin: 07/27/23 04:24 Dose: 650 mg Al Hydroxide/Mg Hydroxide (Magnesium Hydrox/Alum Hydrox 30 Ml Oral.Susp) 30 ml PO Q6H PRN PRN Reason: Heartburn/Nausea Albuterol Sulfate (Albuterol Sulfate 90 Mcg 8 Gm Inhaler) 2 puff INHALE Q4H PRN PRN Reason: Wheezing Amlodipine Besylate (Amlodipine Besylate 5 Mg Tablet) 5 mg PO DAILY [facility]; Protocol Last Admin: 07/30/23 08:35 Dose: 5 mg Divalproex Sodium (Divalproex Sodium 250 Mg Tablet.) 250 mg PO TID [facility] Last Admin: 07/30/23 08:35 Dose: 250 mg Haloperidol (Haloperidol 5 Mg Tablet) 5 mg PO BID [facility] Last Admin: 07/30/23 08:35 Dose: 5 mg Haloperidol Decanoate (Haloperidol Decanoate 50 Mg/Ml Vial) 100 mg IM Q28D [facility] Hydroxyzine HCl (Hydroxyzine Hcl 25 Mg Tablet) 25 mg PO Q6H PRN PRN Reason: Anxiety Levetiracetam (Levetiracetam 500 Mg Tablet) 500 mg PO BID [facility] Last Admin: 07/30/23 08:35 Dose: 500 mg Lorazepam (Lorazepam 1 Mg Tablet) 1 mg PO Q4H PRN PRN Reason: Agitation Magnesium Hydroxide (Milk Of Magnesia 30 Ml Oral.Susp) 30 ml PO DAILY PRN PRN Reason: Constipation Mirtazapine (Mirtazapine 15 Mg Tablet) 15 mg PO BEDTIME [facility] Last Admin: 07/29/23 20:58 Dose: 15 mg Olanzapine (Olanzapine 5 Mg Tablet) 5 mg PO BID@0800,1400 [facility] Last Admin: 07/30/23 08:35 Dose: 5 mg Olanzapine (Olanzapine 10 Mg Tablet) 10 mg PO BEDTIME [facility] Last Admin: 07/29/23 20:57 Dose: 10 mg Polyethylene Glycol (Polyethylene Glycol 3350 17 Gm Powd.Pack) 17 gm PO DAILY PRN PRN Reason: Constipation Thiamine HCl (Thiamine Hcl 100 Mg Tablet) 100 mg PO DAILY [facility] Last Admin: 07/30/23 08:35 Dose: 100 mg Trazodone HCl (Trazodone Hcl 50 Mg Tablet) 50 mg PO BEDTIME PRN PRN Reason: Insomnia Allergies Allergies Allergy/AdvReac Type Severity Reaction Status Date / Time No Known Allergies Allergy Unverified 01/28/20 16:07 [No Known Allergies*] Assessment & Plan Assessment & Plan (1) Schizoaffective disorder, bipolar type: Status: Acute Code(s): F25.0 - Schizoaffective disorder, bipolar type (2) Dementia: Status: Acute Code(s): F03.90 - Unspecified dementia, unspecified severity, without behavioral disturbance, psychotic disturbance, mood disturbance, and anxiety Plan Mr. Simms is a 67 year-old male with hx of schizophrenia. Pt sent from [facility] home on sect 12b due to not eating and drinking. He was found to be dehydrated in the ED. He was given IV fluids with good effect. On the unit, he does not present with overt delusional content or paranoid, as he usually does. PLAN 1. continue tx. he is on sect 12b, appear close to baseline. Reason for continued inpatient stay Substantial Risk for: inability to function Time Spent With Patient Time: Total time managing care of this patient today ____ minutes.
[2023-07-30] MEDS: Haloperidol Decanoate 50 MG/ML VIAL 100 MG IM (15:40)
--- NOTE | 2023-07-30 15:55 | PC.NURSE ---
Patient received 100mg Haldol deconate IM L deltoid. tolerated well. Next dose due 28 days.
[2023-07-30 18:00] VITALS: BP 107/61; PULSE 107; RESP 18; TEMP 36.4; O2SAT 96
[2023-07-30] MEDS: Mirtazapine 15 MG TABLET PO (20:26)
[2023-07-30] MEDS: OLANZapine 10 MG TABLET PO (20:26)
--- NOTE | 2023-07-31 08:28 | PM.PSYDC ---
DS: Providers Provider Date of Service: 07/31/23 Date of admission: 07/26/23 11:23 Date of discharge: 07/31/23 Primary care physician: Unknown Physician Consults: 07/25/23 14:33 Consult to Care Team Stat Comment: Reason for consultation: Psych history not drinking not eating at the facility. now eating Discharging clinician: Lavern Luna DS: Diagnosis Discharge Diagnosis (1) Schizoaffective disorder, bipolar type: Status: Acute (2) Dementia: Status: Acute DS: Medications Discharge Medications Home Medications: Home Medications Medication Instructions Recorded Confirmed albuterol sulfate 90 mcg/actuation 2 puff inhalation Q4H PRN Wheezing 07/25/23 07/25/23 aerosol inhaler olanzapine 5 mg tablet 5 mg PO BID@0800,1400 07/25/23 07/25/23 amlodipine 5 mg tablet 5 mg PO DAILY 07/26/23 07/26/23 Previous Rx's Medication Instructions Recorded acetaminophen 325 mg tablet 650 mg (2 x 325 mg) PO Q6H PRN 05/16/23 Pain (Scale Score 1-3) #60 tabs divalproex 250 mg tablet,delayed 250 mg PO TID 30 days #90 tabs 05/16/23 release emtricitabine 200 mg-rilpivirine 1 tab PO DAILY #30 tabs 05/16/23 25 mg-tenofovir alafenam 25 mg tablet (Abram) haloperidol 5 mg tablet 5 mg PO BID 30 days #60 tabs 05/16/23 levetiracetam 500 mg 500 mg PO BID 30 days #60 tabs 05/16/23 tablet,extended release 24 hr mirtazapine 15 mg disintegrating 15 mg PO BEDTIME 30 days #30 tabs 05/16/23 tablet olanzapine 10 mg tablet 10 mg PO BEDTIME 30 days #30 tabs 05/16/23 polyethylene glycol 3350 17 gram 17 g PO DAILY PRN Constipation #30 05/16/23 oral powder packet ea thiamine HCl (vitamin B1) 100 mg 100 mg PO DAILY #30 tabs 05/16/23 tablet haloperidol decanoate 100 mg/mL 100 mg IM Q4W #5 mL 07/31/23 intramuscular solution Mental Status Exam Mental Status Exam Narrative: Appearance: thin, malnourish male, in NAD Behavior: cooperative Psychomotor: no agitation or retardation noted Speech: mumbles, soft tone, spontaneous TP: poverty of thought, but able to answer simple questions TC: feeling better Mood: good Affect: constricted Si: denies HI: denies VH/AH: no overt signs delusions: no overt delusional content noted or reported. Insight/judgment: impaired x 2. memory/cog: alert, oriented x 3. Data Data Completed and Pending Completed studies during hospitalization [Text1]: 07/25/23 07/25/23 07/26/23 13:45 13:45 01:17 WBC 7.6 RBC 5.62 Hgb 17.1 Hct 52.1 H MCV 92.7 MCH 30.4 MCHC 32.8 RDW 12.5 Plt Count 193 MPV 9.0 L Immature Gran % (Auto) 0.4 Neut % (Auto) 33.2 L Lymph % (Auto) 52.7 H [place] % (Auto) 11.6 H Eos % (Auto) 1.7 Baso % (Auto) 0.4 Lymph # (Auto) 4.0 [place] # (Auto) 0.9 Eos # (Auto) 0.1 Baso # (Auto) 0.0 Abs Immat Gran (auto) 0.03 Absolute Neuts (auto) 2.5 Absolute Nucleated RBC 0.000 Nucleated RBC % (auto) 0.0 Sodium 149 H Potassium 4.6 Chloride 112 H Carbon Dioxide 25 Anion Gap 17 BUN 23 H Creatinine 0.91 Estim Creat Clear Calc 53.4 Estimated GFR > 60 Random Glucose 88 Fasting Glucose Calcium 10.5 H D 10.6 H Magnesium 2.4 Total Bilirubin AST ALT Alkaline Phosphatase Ammonia 40 Total Protein Albumin Triglycerides Cholesterol LDL Cholesterol, Calc HDL Cholesterol Vitamin B12 TSH 2.07 Urine Color Dark Yellow Urine Appearance Clear Urine pH 5.0 Ur Specific [place] 1.025 Urine Protein 100 (2+) H Urine Glucose (UA) Negative Urine Ketones 15 Urine Blood Negative Urine Nitrite Negative Ur Leukocyte Esterase Negative Urine RBC 0-2 Urine WBC 0-5 Ur Squamous Epith Cells 0-2 Urine Bacteria None Seen Hyaline Casts 0-2 Urine Opiates Screen Not Detected Urine Fentanyl Screen Not Detected Ur Barbiturates Screen Not Detected Valproic Acid < 12.5 L Ur Phencyclidine Scrn Not Detected Ur Amphetamines Screen Not Detected U Benzodiazepines Scrn Not Detected Urine Cocaine Screen Not Detected U Marijuana (THC) Screen Not Detected Influenza Type A (PCR) NEGATIVE Influenza Type B (PCR) NEGATIVE RSV RNA Qual (PCR) NEGATIVE SARS-CoV-2 RNA (RT-PCR) NEGATIVE 07/26/23 07/27/23 12:29 07:21 WBC RBC Hgb Hct MCV MCH MCHC RDW Plt Count MPV Immature Gran % (Auto) Neut % (Auto) Lymph % (Auto) [place] % (Auto) Eos % (Auto) Baso % (Auto) Lymph # (Auto) [place] # (Auto) Eos # (Auto) Baso # (Auto) Abs Immat Gran (auto) Absolute Neuts (auto) Absolute Nucleated RBC Nucleated RBC % (auto) Sodium 146 H 146 H Potassium 3.6 D 3.6 Chloride 109 H 112 H Carbon Dioxide 28 24 Anion Gap 13 14 BUN 8 L 14 Creatinine 0.80 0.71 Estim Creat Clear Calc 60.7 70.7 Estimated GFR > 60 > 60 Random Glucose 109 Fasting Glucose 114 H Calcium 9.4 D 9.5 Magnesium Total Bilirubin 0.5 0.4 AST 34 23 ALT 28 24 Alkaline Phosphatase 73 75 Ammonia Total Protein 8.2 H 7.6 Albumin 3.2 L 3.1 L Triglycerides 92 Cholesterol 129 LDL Cholesterol, Calc 74 HDL Cholesterol 37 L Vitamin B12 823 TSH 0.51 Urine Color Urine Appearance Urine pH Ur Specific [place] Urine Protein Urine Glucose (UA) Urine Ketones Urine Blood Urine Nitrite Ur Leukocyte Esterase Urine RBC Urine WBC Ur Squamous Epith Cells Urine Bacteria Hyaline Casts Urine Opiates Screen Urine Fentanyl Screen Ur Barbiturates Screen Valproic Acid Ur Phencyclidine Scrn Ur Amphetamines Screen U Benzodiazepines Scrn Urine Cocaine Screen U Marijuana (THC) Screen Influenza Type A (PCR) Influenza Type B (PCR) RSV RNA Qual (PCR) SARS-CoV-2 RNA (RT-PCR) Imaging Diagnostic Imaging Impressions Chest X-Ray 07/25/23 12:45 IMPRESSION: No acute abnormality. DS: Summary Hospital Course Hospital Course: Mr. Corrales is a 67 year-old male with hx of schizophrenia who was sent on sect [facility] from [facility] due to not eating or drinking for the past 4 days. In the ED, he presented with signs of dehydration and received IV fluids with good effect. Pt was recently discharged from [facility] due to increase paranoid delusions. On the unit, pt presents as calm. He reports he is doing better and eating well. He denies suicidal or homicidal ideation. He also denies overt delusional content or visual or auditory hallucinations. He has been taking medications as prescribed per jass's without any resistance. Past Psychiatric History: Inpatient: [facility] 05/2023, multiple in the past. -Current medication: Haldol Dec 50 mg Q28 days, olanzapine 20 mg QHS, remeron 15 mg QHS. Jass?s order: haldol dec 25 mg IM Qmo, zyprexa 20 mg QD, haldol 1.5 mg BID PRN. Alternatives risperdal/ risperdal consta up to 8 mg QD/ 50 mg P3npriq and seroquel up to HOSPITAL COURSE On the unit, Mr. Corrales was admitted on a Sect 12b. He was placed on 15 minutes checks for safety. On the unit, he did not present with s/s of catatonia. He was talking and and eating. He did receive IV fluids in the ED due to hypernatremia secondary to dehydration. On the unit, pt presented as pleasant. He was eating and sleeping well. he took his medications as prescribed. He was visible on the unit. No behavioral concerns. There were no incidences of disruptive behaviors nor need for restraints. He did not present with overt psychosis or delusional content. He appeared at baseline. Status at Discharge Cognitive/behavioral status at discharge: P with constricted but pleasant affect. No SI/HI. No overt psychosis or delusions. No aggression towards self or others. Sleeping and eating well. Functional status at discharge: independent ambulation Overall status at discharge: patient is progressing back to baseline Time Spent with Patient Time attestation: Total time managing care of this patient today _35___ minutes. Time spent: Greater than 30 minutes Discharge Plan Discharge Anticipated Discharge Date/Time: 07/31/23 08:22 Patient Disposition: Home, Self-Care Discharge Diagnosis: schizoaffective disorder Major Neurocognitive Disorder Referrals: Tony Coyne [Other] - 07/31/23 11:00 am (Transfer to rest home and follow up with outpatient providers as needed.) Discharge Medications: New haloperidol decanoate 100 mg/mL solution 100 mg IM Q4W Qty: 5 0RF Continued haloperidol 5 mg Tablet 5 mg PO BID 30 Days Qty: 60 0RF divalproex 250 mg Tablet,Delayed Release (Dr/Ec) 250 mg PO TID 30 Days Qty: 90 0RF olanzapine 10 mg Tablet 10 mg PO BEDTIME 30 Days Qty: 30 0RF acetaminophen 325 mg Tablet 650 mg PO Q6H PRN (Reason: Pain (Scale Score 1-3)) Qty: 60 0RF polyethylene glycol 3350 17 gram Powder In Packet 17 g PO DAILY PRN (Reason: Constipation) Qty: 30 0RF thiamine HCl (vitamin B1) 100 mg Tablet 100 mg PO DAILY Qty: 30 0RF mirtazapine 15 mg tablet,disintegrating 15 mg PO BEDTIME 30 Days Qty: 30 0RF levetiracetam 500 mg Tablet Extended Release 24 Hr 500 mg PO BID 30 Days Qty: 60 0RF Odefsey 200-25-25 mg tablet 1 tab PO DAILY Qty: 30 0RF albuterol sulfate 90 mcg/actuation HFA aerosol inhaler 2 puff inhalation Q4H PRN (Reason: Wheezing) olanzapine 5 mg tablet 5 mg PO BID@0800,1400 amlodipine 5 mg tablet 5 mg PO DAILY Discontinued haloperidol decanoate 100 mg/mL solution 100 mg IM Q4W 30 Days Qty: 2 0RF lorazepam 1 mg tablet 1 mg PO Q4H PRN (Reason: Agitation) Discharge Orders: Discharge Order (Routine); Ordered 07/31/23 Ordered By: Lavern Luna Diet: Regular diet Activity on Discharge: As tolerated Stand Alone Forms: Patient Portal Discharge page Care Plan Goals: 1. Maintain mood 2. No SI/HI 3. No aggression towards self or others 4. Less delusions and less psychosis Health Concerns: Follow up with PCP Plan of Treatment: 1. Take medications as prescribed 2. Go to nearest ED or call 911 in event of emergency Assessment: pt with constricted but pleasant affect. He denies SI/HI. No overt delusional content noted or reported. No aggression towards self or others. No s/s of catatonia.
[2023-07-31 08:35] VITALS: BP 109/73; PULSE 100; RESP 18; TEMP 36; O2SAT 95
[2023-07-31] MEDS: Divalproex Sodium 250 MG TABLET.DR PO (08:37)
[2023-07-31] MEDS: levETIRAcetam 500 MG TABLET PO (08:37)
[2023-07-31] MEDS: HaloperidoL 5 MG TABLET PO (08:37)
[2023-07-31] MEDS: amLODIPine Besylate 5 MG TABLET PO (08:37)
[2023-07-31] MEDS: Thiamine HCL 100 MG TABLET PO (08:37)
[2023-07-31] MEDS: OLANZapine 5 MG TABLET PO (08:37)
== END 2023-07-31 11:40 | disposition home or self-care (01) | DRG 885 ==
LOC: HO.ED 20:45 → HO.PGERI 07-26 12:08
PROVIDERS: Admitting Provider Social Worker; Emergency Provider Emergency Medicine Emergency Medical Services; Visit Provider Social Worker
DX: F25.0 Schizoaffective disorder, bipolar type (principal); F03.90 Unspecified dementia, unspecified severity, without behavioral disturbance, psychotic disturbance, mood disturbance, and anxiety; Z21 Asymptomatic human immunodeficiency virus [HIV] infection status; Z20.822 Contact with and (suspected) exposure to COVID-19; Z79.899 Other long term (current) drug therapy
CPT/HCPCS: 0241U; 36415; 71045; 80048; 80053; 80061; 80164; 80307; 81001; 82140; 82310; 82607; 83735; 84443; 85025; 93005; 99285; J1631; S9485

== ENCOUNTER → 2023-07-25 12:27 | Outpatient (BNV) | payer MEDICARE, MEDICAID, SELFPAY | PROVIDERS: Emergency Provider Emergency Medicine Emergency Medical Services; Visit Provider Internal Medicine Cardiovascular Disease | DX: R53.1 Weakness (principal) | CPT/HCPCS: 93010 ==

== ENCOUNTER 2023-07-26 11:23 | Outpatient (BNV) | payer MEDICARE, MEDICAID, SELFPAY | END 2023-07-26 15:09 | PROVIDERS: Admitting Provider Social Worker; Emergency Provider Emergency Medicine Emergency Medical Services; Visit Provider Internal Medicine Cardiovascular Disease | DX: F25.0 Schizoaffective disorder, bipolar type (principal) | CPT/HCPCS: 93010 ==

== ENCOUNTER → 2023-07-26 11:23 | Outpatient (BNV) | payer MEDICARE, MEDICAID, SELFPAY | PROVIDERS: Admitting Provider Social Worker; Emergency Provider Emergency Medicine Emergency Medical Services; Visit Provider Social Worker | DX: F25.0 Schizoaffective disorder, bipolar type (principal); F03.90 Unspecified dementia, unspecified severity, without behavioral disturbance, psychotic disturbance, mood disturbance, and anxiety | CPT/HCPCS: 90792; 99231; 99239 ==

== ENCOUNTER 2023-09-30 20:17 | Inpatient (IN) | payer MEDICARE, MEDICAID, SELFPAY ==
--- NOTE | ~2023-09-30 | XR_ITS ---
EXAMINATION: XR ABDOMEN KUB CLINICAL INDICATION: Bowel obstruction COMPARISON: CT abdomen and pelvis January 02, 2021 TECHNIQUE: AP view of the abdomen. FINDINGS: Large volume of stool throughout the colon from cecum to pelvis. No abnormally dilated bowel loop. Nonobstructive bowel pattern. No radiopaque urinary calculus. Marked degenerative change of the right hip moderate degenerative change of left hip. XR/XR KUB IMPRESSION: Large volume of stool throughout the colon. Nonobstructive bowel pattern. Electronically signed by: Hector Way MD 02/05/2024 04:17 PM EDT
--- OUTSIDE RECORDS SUMMARY | 2023-09-30 20:27 | XMS_ITS | Continuity of Care Document ---
Author Organization [facility] Infectious Disease Address [address] [place] [address]- Care Team Providers Care Public Speaking Instructor Name Role Phone Jaison RAJPUT, Asma Primary Care Physician Encounter [facility] [place] Date(s): 04/23/23 - 05/23/23 [facility] Infectious Disease [address] [place] [address]- Attending Physician: Cornelius Barlow Admitting Physician: Cornelius Barlow Referring Physician: AdmtrCornelius Allergies, Adverse Reactions, Alerts No Known Allergies Immunizations Given and Recorded Vaccine Date Status Refusal Reason SARS-CoV-2 (COVID-19) mRNA BNT-162b2 vac 06/30/20 Recorded SARS-CoV-2 (COVID-19) mRNA BNT-162b2 vac 06/09/20 Recorded pneumococcal 13-valent vaccine 06/16/19 Given tetanus/diphtheria/pertussis, acel(Tdap) 06/16/19 Given hepatitis B adult vaccine 1 02/06/18 Given Pneumovax 23 (oldterm) 07/16/08 Recorded 1Admin Note: Heplisav-B Medications albuterol 90 mcg/inh inhalation powder 2 puffs, Inhalation, Every 4 hours, PRN Wheezing/Shortness of Breath, 0 Refills, Maintenance, 03/21/23 17:29:00 EST, Partial fill upon patient request if the prescription is for a schedule II opioid drug. Start Date: 03/21/23 Status: Ordered divalproex sodium 125 mg oral delayed release capsule = 125 mg, By Mouth, 2 times a day, # 28 capsule, 1 Refills, Maintenance, 04/07/23 15:10:00 EST, [facility], Partial fill upon patient request if the prescription is for a schedule II opioiddrug., 176, cm, 03/24/23 3:52:00 EST, Height, 51.3,... Start Date: 04/07/23 Stop Date: 05/05/23 Status: Ordered divalproex sodium 250 mg oral enteric coated tablet 1 tablet = 250 mg, By Mouth, Daily, 0 Refills, Maintenance, 03/21/23 17:25:00 EST, Partial fill upon patient request if the prescription is for a schedule II opioid drug. Start Date: 03/21/23 Status: Ordered haloperidol decanoate 100 mg/ml injectable solution 1 mL = 100 mg, Intramuscular, Every 28 days, 0 Refills, Maintenance, 10/03/21 10:48:00 EDT, Solution Start Date: 10/03/21 Status: Ordered Keppra XR 500 mg oral tablet, extended release 2 tablet = 1,000 mg, By Mouth, 2 times a day, 0 Refills, Maintenance, 03/21/23 17:27:00 EST, Partial fill upon patient request if the prescription is for a schedule II opioid drug. Start Date: 03/21/23 Status: Ordered MiraLax oral powder for reconstitution = 17 Gm, By Mouth, Daily, PRN Constipation, 0 Refills, Maintenance, 03/21/23 17:28:00 EST, Partial fill upon patient request if the prescription is for a schedule II opioid drug. Start Date: 03/21/23 Status: Ordered mirtazapine 15 mg oral tablet, disintegrating 1 tablet = 15 mg, By Mouth, Daily at bedtime, 0 Refills, Maintenance, 01/04/22 13:00:00 EDT Start Date: 01/04/22 Status: Ordered Odefsey oral tablet 1 tablet, By Mouth, Daily, 0 Refills, Maintenance, 10/03/21 10:47:00 EDT, Tablet, Partial fill uponpatient request if the prescription is for a schedule II opioid drug. Start Date: 10/03/21 Status: Ordered olanzapine 15 mg oral tablet, disintegrating 1 tablet = 15 mg, By Mouth, Daily, 0 Refills, Maintenance, 01/04/22 13:00:00 EDT Start Date: 01/04/22 Status: Ordered olanzapine 15 mg oral tablet, disintegrating = 15 mg, By Mouth, Daily, # 14 tablet, 0 Refills, Maintenance, 04/07/23 15:11:00 EST, DIS Tablet, [facility], Partial fill upon patient request if the prescription is for a schedule II opioid drug., 176, cm, 03/24/23 3:52:00 EST, Height, 51.... Start Date: 04/07/23 Stop Date: 04/21/23 Status: Ordered Tylenol 325 mg oral tablet 650 mg, 2, tablet, By Mouth, Every 6 hours, PRN, Maintenance, Mild Pain/Fever, 03/21/23 17:28:00 EST, Partial fill upon patient request if the prescription is for a schedule II opioid drug. Start Date: 03/21/23 Status: Ordered Vitamin B1 100 mg oral tablet 100 mg, 1, tablet, By Mouth, Daily, Maintenance, 03/21/23 17:26:00 EST, Partial fill upon patient request if the prescription is for a schedule II opioid drug. Start Date: 03/21/23 Status: Ordered Problem List Condition Confirmation Course Effective Dates Status Health [facility] Informant HIV dementia Confirmed Active HIV disease Confirmed Active Iatrogenic hypotension Confirmed Active Underweight Confirmed Active Hepatitis C virus Confirmed Active Social History Social History Type Response Smoking Status Former smoker; Tobac co user in household: No entered on: 02/06/18 Sex Laboratory * Event Display: Non Lab Results Authored Date: Patient Care team information Care Team Personnel Name: Adan Martin RN Position: [facility] RN Member Role: Primary Care Nurse Name: Antonietta Monae RN Position: [facility] RN Member Role: Primary Care Nurse Name: Lisa Shaikh RN Position: [facility] RN Member Role: Primary Care Nurse Name: Natacha Fuentes RN Position: [facility] RN Member Role: Primary Care Nurse Name: Rodriguez Alejandre RN Position: [facility] RN Member Role: Primary Care Nurse Name: Fabio Lang RN Position: [facility] RN Member Role: Primary Care Nurse Name: Nimesh Blackwood MD Position: [facility] Physician - Primary Care Member Role: PCP Address: Address: [address] [place], [place] [address] Name: Junie Santacruz RN Position: [facility] RN Member Role: Primary Care Nurse Name: Trina Harrison RN Position: [facility] RN Member Role: Primary Care Nurse Name: Junie Mendez RN Position: [facility] RN Member Role: Primary Care Nurse Name: Marisela Canseco RN Position: [facility] ED RN W/OE and Tasks Member Role: Primary Care Nurse Name: Tino Madera MD Position: [facility] Physician - Infectious Disease Member Role: Lifetime Consulting Physician Address: Address: [address] [place] [address] Infectious Disease [place], [place] [address] Name: Angy Corcoran RN Position: [facility] RN Member Role: Primary Care Nurse Name: Imelda Alicia RN Position: [facility] RN Member Role: Primary Care Nurse Name: Ta Alanis RN Position: [facility] RN Member Role: Primary Care Nurse Care Team Related Persons Name: VIANNEY JONES Address: home [address] [place] [address] Name: HARRY FERRARI Address: [address] [place] [address] Name: CHERYL CHEN Address: home [address] [place] [address] Name: PRASHANT BERRY Address: home [address] [address]
--- OUTSIDE RECORDS SUMMARY | 2023-09-30 20:27 | XMS_ITS | Continuity of Care Document ---
Author Organization [facility] Infectious Disease Address [address] [place] [id number]- Care Team Providers Care Light Truck Driver Name Role Phone Jaison RAJPUT, Asma Primary Care Physician Encounter [facility] [place] Date(s): 06/16/19 - 06/26/19 [facility] Infectious Disease [address] [place] [id number]- [facility] Attending Physician: Cornelius Barlow Admitting Physician: AdmCornelius claros Referring Physician: AdmtrCornelius Allergies, Adverse Reactions, Alerts Substance Reaction Severity Status No known allergies Active Immunizations Given and Recorded Vaccine Date Status Refusal Reason pneumococcal 13-valent vaccine 06/16/19 Given tetanus/diphtheria/pertussis, acel(Tdap) 06/16/19 Given hepatitis B adult vaccine 1 02/06/18 Given Pneumovax 23 (oldterm) 07/16/08 Recorded Not Given Vaccine Date Status Refusal Reason influenza virus vaccine, inactivated 07/15/15 Not Given Patient Refuses influenza virus vaccine, inactivated 2 07/09/15 No t Given Patient Refuses 1Admin Note: Heplisav-B 2Result Note: per pt i already had a flu shot. Medications Complera oral tablet 1 tablet, By Mouth, Every Saturday and Saturday, # 9 tablet, 5 Refills, Maintenance, 07/18/15 17:09:27, Tablet, please fill 2 complera Rx - one for adult daycare during the week, and one for home on weekends., 1 tablet By Mouth Every Saturday and Saturday... Start Date: 07/18/15 Stop Date: 01/14/16 Status: Ordered Complera oral tablet 1 tablet, By Mouth, Daily, Give in AM on , , , , and Fridays, # 22 tablet, 0 Refills, Maintenance, 07/18/15 17:10:28, Tablet, please fill 2 complera Rx - one for adult daycare during the week, and one for home on weekends., 1 tablet By Mouth Kathleen... Start Date: 07/18/15 Status: Ordered Heplisav-B 20 mcg/0.5 mL intramuscular solution 0.5 mL = 20 mcg, Intramuscular, Once, # 0.5 mL, 0 Refills, Soft Stop, 02/07/18 9:15:00 EDT Start Date: 02/07/18 Status: Ordered mirtazapine 7.5 mg oral tablet 1 tablet = 7.5 mg, By Mouth, Daily at bedtime, # 30 tablet, 0 Refills, Maintenance, 07/18/15 17:09:12, Tablet, 1 tablet By Mouth Daily at bedtime,x30 days Start Date: 07/18/15 Stop Date: 08/17/15 Status: Ordered olanzapine 20 mg oral tablet, disintegrating 1 tablet = 20 mg, By Mouth, Daily, Give in AM on , , , , and Fridays, # 22 tablet, 0 Refills,Maintenance, 07/18/15 17:11:12, please fill 2 zyprexa Rx - one for adult daycare during the week, and one for home on weekends., 1 tablet By Mouth Tamir... Start Date: 07/18/15 Status: Ordered ZyPREXA Zydis 20 mg oral tablet, disintegrating 1 tablet = 20 mg, By Mouth, Every Saturday and Saturday, # 9 tablet, 0 Refills, Maintenance, 07/17/1616:10:53, please fill 2 zyprexa Rx - one for adult daycare during the week, and one for home on weekends., 1 tablet By Mouth Every Saturday and Saturday Start Date: 07/18/15 Status: Ordered Problem List Condition Effective Dates Status Health Status Inform ant HIV disease(Confirmed) Active Iatrogenic hypotension(Confirmed) Active Hepatitis C virus(Confirmed) Active Social History Social History Type Response Smoking Status Former smoker; Tobac co user in household: No entered on: 02/06/18 Sex
--- OUTSIDE RECORDS SUMMARY | 2023-09-30 20:27 | XMS_ITS | Continuity of Care Document ---
Author Organization [facility] ter Address [address] [place] [id number]- Care Team Providers Care Dam Tender Name Role Phone Jaison RAJPUT, Asma Primary Care Physician [place] [facility] [place](s): 01/04/22 - 01/31/[address] [id number]- Encounter Diagnosis Altered mental state(Final) - 01/04/22 Fall(Final) - 01/04/22 History of HIV infection(Final) - 01/04/22 Discharge Disposition: A-D/C Home Attending Physician: Sarkis Talbert MD Admitting Physician: Shmuel Perkins MD Referring Physician: Not on Staff, Referring MD Allergies, Adverse Reactions, Alerts No Known Allergies [...] i already had a flu shot. Medications amLODIPine 2.5 mg oral tablet 2.5 mg, 1, tablet, By Mouth, Daily, # 30 tablet, Refills 0, Maintenance, 10/03/21 10:47:00 EDT, Partial fill upon patient request if the prescription is for a schedule II opioid drug. Start Date: 10/03/21 Status: Ordered divalproex sodium 125 mg oral delayed release capsule 2 capsule = 250 mg, By Mouth, Daily in AM, 0 Refills, Maintenance, 01/04/22 13:00:00 EDT Start Date: 01/04/22 Status: Ordered divalproex sodium 125 mg oral delayed release capsule 1 capsule = 125 mg, By Mouth, Daily at bedtime, Maintenance, 01/05/22 16:09:00 EDT, EC Capsule Start Date: 01/05/22 Status: Ordered haloperidol decanoate 100 mg/ml injectable solution = 100 mg, Intramuscular, Every 28 days, 0 Refills, Maintenance, 10/03/21 10:48:00 EDT, Solution Start Date: 10/03/21 Status: Ordered levETIRAcetam 500 mg oral tablet, extended release 1 tablet = 500 mg, By Mouth, 2 times a day, 0 Refills, Maintenance, 01/04/22 13:00:00 EDT Start Date: 01/04/22 Status: Ordered mirtazapine 15 mg oral tablet, disintegrating 1 tablet = 15 mg, By Mouth, Daily at bedtime, 0 Refills, Maintenance, 01/04/22 13:00:00 EDT Start Date: 01/04/22 Status: Ordered Odefsey oral tablet 1 tablet, By Mouth, Daily, # 30 tablet, 0 Refills, Maintenance, 10/03/21 10:47:00 EDT, Tablet, Partial fill upon patient request if the prescription is for a schedule II opioid drug. Start Date: 10/03/21 Status: Ordered olanzapine 15 mg oral tablet, disintegrating 1 tablet = 15 mg, By Mouth, Daily in AM, 0 Refills, Maintenance, 01/04/22 13:00:00 EDT Start Date: 01/04/22 Status: Ordered thiamine 100 mg oral tablet 100 mg, 1, tablet, By Mouth, Daily, Refills 0, Maintenance, 01/31/22 13:03:00 EDT, Partial fill upon patient request if the prescription is for a schedule II opioid drug. Start Date: 01/31/22 Status: Ordered Problem List Condition Effective Dates Status Health Status Inform ant HIV disease(Confirmed) Active Iatrogenic hypotension(Confirmed) Active Underweight(Confirmed) Active Hepatitis C virus(Confirmed) Active Results Orders for Microbiology Reports Name Date Sputum Culture w/ Gram Smear 01/22/22 Sputum Culture w/ Gram Smear (Culture Sp utum w/ Gram Smear) 01/19/22 Sputum Culture w/ Gram Smear 01/17/22 Blood Culture 01/17/22 Blood Culture #2 01/17/22 AFB Culture w/ AFB Smear, Respiratory 01/15/22 Fungal Culture, Respiratory 01/15/22 Lower Resp Tract Culture w/ Gram Smear ( LOWER RESP.TR. CULT.) 01/15/22 Sputum Culture w/ Gram Smear 01/14/22 Blood Culture 01/14/22 Microbiology Reports (Most Recent Ten) TEST:Sputum Culture STATUS:Auth (Verified) BODY SITE: SOURCE:ENDOTR COLLECTED DATE/TIME:01/22/22 1:25 PM Sputum Culture SPECIMEN DESCRIPTION : ENDOTRACHEAL ASPIRATE SPECIAL REQUESTS : NONE GRAM STAIN : 2+ POLYMORPHONUCLEAR LEUKOCYTES 1+ SQ.EPITHELIAL CELLS 1+ GRAM POSITIVE COCCI CULTURE : 3+ STAPHYLOCOCCUS AUREUS. This isolate was identified using Maldi-TOF system These AST results were performed on the [email or web address] ID and AST system REPORT STATUS : FINAL 01/24/2022 ORGANISM 3+ STAPHYLOCOCCUS AUREUS. This isolate was identified using Maldi-TOF system These AST results were performed on the [email or web address] ID and AST system METHOD MIN. INHIB. CONC. (MCG/ML) CIPROFLOXACIN SUSCEPTIBLE CLINDAMYCIN SUSCEPTIBLE ERYTHROMYCIN SUSCEPTIBLE LEVOFLOXACIN SUSCEPTIBLE OXACILLIN SUSCEPTIBLE PENICILLIN RESISTANT RIFAMPIN SUSCEPTIBLE RIFAMPIN RIFAMPIN SHOULD NOT BE USED ALONE FOR ANTIMICROBIAL RIFAMPIN THERAPY. TETRACYCLINE SUSCEPTIBLE TRIMETH/SULFAMETHOX SUSCEPTIBLE VANCOMYCIN SUSCEPTIBLE TEST:Sputum Culture STATUS:Auth (Verified) BODY SITE: SOURCE:ENDOTR COLLECTED DATE/TIME:01/19/22 3:20 PM Sputum Culture SPECIMEN DESCRIPTION : ENDOTRACHEAL ASPIRATE SPECIAL REQUESTS : NONE GRAM STAIN : 2+ POLYMORPHONUCLEAR LEUKOCYTES 1+ SQ.EPITHELIAL CELLS 1+ GRAM NEGATIVE RODS CULTURE : 1+ NORMAL JHONNY REPORT STATUS : FINAL 01/21/2022 TEST:Sputum Culture STATUS:Auth (Verified) BODY SITE: SOURCE:ENDOTR COLLECTED DATE/TIME:01/17/22 8:57 PM Sputum Culture SPECIMEN DESCRIPTION : ENDOTRACHEAL ASPIRATE SPECIAL REQUESTS : NONE GRAM STAIN : 2+ POLYMORPHONUCLEAR LEUKOCYTES 1+ GRAM POSITIVE COCCI 1+ GRAM POSITIVE RODS 1+ GRAM NEGATIVE RODS CULTURE : 4+ STAPHYLOCOCCUS AUREUS. This isolate was identified using Maldi-TOF system These AST results were performed on the Microscan ID and AST system 4+ NORMAL JHONNY REPORT STATUS : FINAL 01/21/2022 ORGANISM 4+ STAPHYLOCOCCUS AUREUS. This isolate was identified using Maldi-TOF system These AST results were performed on the Microscan ID and AST system METHOD MIN. INHIB. CONC. (MCG/ML) CIPROFLOXACIN SUSCEPTIBLE CLINDAMYCIN SUSCEPTIBLE ERYTHROMYCIN SUSCEPTIBLE LEVOFLOXACIN SUSCEPTIBLE OXACILLIN SUSCEPTIBLE PENICILLIN RESISTANT RIFAMPIN SUSCEPTIBLE RIFAMPIN RIFAMPIN SHOULD NOT BE USED ALONE FOR ANTIMICROBIAL RIFAMPIN THERAPY. TETRACYCLINE SUSCEPTIBLE TRIMETH/SULFAMETHOX SUSCEPTIBLE VANCOMYCIN SUSCEPTIBLE TEST:Blood Culture, Second Order STATUS:Auth (Verified) BODY SITE: SOURCE:Blood COLLECTED DATE/TIME:01/17/22 1:44 PM Blood Culture, Second Order SPECIMEN DESCRIPTION : BLOOD RTHAND SPECIAL REQUESTS : NONE CULTURE : NO GROWTH 6 DAYS REPORT STATUS : FINAL 01/23/2022 TEST:Blood Culture STATUS:Auth (Verified) BODY SITE: SOURCE:Blood COLLECTED DATE/TIME:01/17/22 11:58 AM Blood Culture SPECIMEN DESCRIPTION : BLOOD NO SITE SPECIAL REQUESTS : NONE CULTURE : NO GROWTH 6 DAYS REPORT STATUS : FINAL 01/23/2022 TEST:Lower Respiratory Tract Culture STATUS:Auth (Verified) BODY SITE: SOURCE:BRONCH COLLECTED DATE/TIME:01/15/22 5:10 PM Lower Respiratory Tract Culture SPECIMEN DESCRIPTION : BRONCH WASH, RIGHT SPECIAL REQUESTS : NONE GRAM STAIN : 2+ POLYMORPHONUCLEAR LEUKOCYTES 1+ SQ.EPITHELIAL CELLS 1+ GRAM POSITIVE COCCI CULTURE : <10,000 CFU/ML STAPHYLOCOCCUS SPECIES SUSCEPTIBILITY TESTING NOT ROUTINELY PERFORMED ON THIS ISOLATE. REPORT STATUS : FINAL 01/17/2022 TEST:Fungal Culture, Respiratory STATUS:Auth (Verified) BODY SITE: SOURCE:BRONCH COLLECTED DATE/TIME:01/15/22 5:10 PM Fungal Culture, Respiratory SPECIMEN DESCRIPTION : BRONCH WASH, RIGHT LUNGR SPECIAL REQUESTS : NONE DIRECT EXAM : NO FUNGAL ELEMENTS OBSERVED CULTURE : Presumptive Nel albicans/Nel dubliniensis REPORT STATUS : FINAL 01/22/2022 TEST:AFB Culture w/AFB Smear, Respiratory STATUS:Unauthenticated BODY SITE: SOURCE:BRONCH COLLECTED DATE/TIME:01/15/22 5:10 PM AFB Culture w/AFB Smear, Respiratory SPECIMEN DESCRIPTION : BRONCH WASH, RIGHT LUNGR SPECIAL REQUESTS : NONE DIRECT EXAM : NO ACID FAST BACILLI SEEN ON DIRECT SMEAR, TEST PERFORMED AT [facility] No acid fast bacilli seen on concentrated smear. Per [facility] protocol, this specimen was concentrated prior to smear preparation. [facility], [address] [place] [id number]. CULTURE : SPECIMEN SENT TO [facility], [place], [place] REPORT STATUS : PRELIMINARY REPORT TEST:Sputum Culture STATUS:Auth (Verified) BODY SITE: SOURCE:EXPECT COLLECTED DATE/TIME:01/14/22 6:20 AM Sputum Culture SPECIMEN DESCRIPTION : EXPECTORATED SPUTUM SPECIAL REQUESTS : NONE GRAM STAIN : 2+ POLYMORPHONUCLEAR LEUKOCYTES 1+ SQ.EPITHELIAL CELLS 2+ GRAM POSITIVE COCCI 1+ GRAM NEGATIVE RODS CULTURE : 4+ STAPHYLOCOCCUS AUREUS. These AST results were performed on the Microscan ID and AST system 3+ NORMAL JHONNY REPORT STATUS : FINAL 01/17/2022 ORGANISM 4+ STAPHYLOCOCCUS AUREUS. These AST results were performed on the Microscan ID and AST system METHOD MIN. INHIB. CONC. (MCG/ML) CIPROFLOXACIN SUSCEPTIBLE CLINDAMYCIN SUSCEPTIBLE ERYTHROMYCIN SUSCEPTIBLE LEVOFLOXACIN SUSCEPTIBLE OXACILLIN SUSCEPTIBLE PENICILLIN RESISTANT RIFAMPIN SUSCEPTIBLE RIFAMPIN RIFAMPIN SHOULD NOT BE USED ALONE FOR ANTIMICROBIAL RIFAMPIN THERAPY. TETRACYCLINE SUSCEPTIBLE TRIMETH/SULFAMETHOX SUSCEPTIBLE VANCOMYCIN SUSCEPTIBLE TEST:Blood Culture STATUS:Auth (Verified) BODY SITE: SOURCE:Blood COLLECTED DATE/TIME:01/14/22 6:11 AM Blood Culture SPECIMEN DESCRIPTION : BLOOD RFOREARM SPECIAL REQUESTS : NONE CULTURE : NO GROWTH 5 DAYS. REPORT STATUS : FINAL 01/19/2022 Radiology Reports (Most Recent Ten) * Exam Date Time Procedure Performing Provider Status 01/22/22 2:50 AM Chest Portable Ta Walls; Auth ([place] ified) Notes: (Chest Portable) Reason For Exam: Tube Placement RESULT: Chest Portable Examination: Portable chest performed on 01/22/2022 at 2:43 AM. History: Tube placement. Findings: A frontal view of the chest is compared to a prior study dated 01/20/2022. Support apparatus is in expected location. The cardiac silhouette is within normal limits for size. The lungs are hyperinflated. Reticular increased interstitial lung markings bilaterally are present. There are no focal infiltrates or pleural effusions. The osseous structures are unremarkable. IMPRESSION: Support apparatus is in expected location. Increased interstitial lung markings which may be secondary to interstitial edema. WSN: [id number] Ordering Physician: Fuad Lozano Dictated By: Christina Morales MD Dictated Date/Time: 01/22/22 7:55 am Reviewed By: Christina Morales MD Signed By: Christina Morales MD Signed Date/Time: 01/22/22 7:55 am Transcribed By: YAHAIRA Transcribed Date/Time: 01/22/22 7:53 am * Exam Date Time Procedure Performing Provider Status 01/20/22 11:27 PM Chest Portable Malik Verdugo; Marine (Verified) Notes: (Chest Portable) Reason For Exam: Tube Placement RESULT: Chest Portable Chest Portable Reason: Tube Placement; Clinical Question(s): Tube Placement COMPARISON: 01/19/2022 FINDINGS: LINES AND TUBES: Enteric tube tip and sidehole in the distal stomach. Endotracheal tube tip 4 cm above the jero. Temperature probe seen in the upper esophagus. LUNGS AND PLEURA: Slightly prominent reticular markings both lungs similar to previous exam. Possible right lung pneumonia. No pleural effusion. No pneumothorax. HEART, MEDIASTINUM AND SHAHLA: Heart is normal in size. Normal upper mediastinal and hilar contour. BONES AND SOFT TISSUES: No acute abnormality. IMPRESSION: Endotracheal tube, enteric tube in good position. WSN: [id number] Ordering Physician: Efraín Lo Dictated By: Lencho Can MD Dictated Date/Time: 01/20/22 11:41 p Reviewed By: Lencho Can MD Signed By: Lencho Can MD Signed Date/Time: 01/20/22 11:41 pm Transcribed By: YAHAIRA Transcribed Date/Time: 01/20/22 11:40 pm * Exam Date Time Procedure Performing Provider Status 01/19/22 6:33 PM Chest Portable Leonor Cm (V erified) Notes: (Chest Portable) Reason For Exam: Fever/Increased White Count RESULT: Chest Portable AP portable chest, INDICATION: Reason: Fever Increased White Count; Clinical Question(s): Pneumonia COMPARISON: Plain film of the chest from this morning 3:22 AM FINDINGS: LINES AND TUBES: Endotracheal tube is 4 cm above the jero. NG tube ends in the stomach. Temperature probe in the mid esophagus. LUNGS AND PLEURA AND MEDIASTINUM: No pneumothorax or pleural effusion. Heart size is normal. Hyperinflation suggests COPD. Small hazy infiltrate in the right midlung zone more prominent from prior. IMPRESSION: Small hazy infiltrate in the right midlung zone. WSN: [id number] Ordering Physician: Terell Bird Dictated By: Amarilys Richard MD Dictated Date/Time: 01/19/22 7:03 pm Reviewed By: Amarilsy Richard MD Signed By: Amarilys Richard MD Signed Date/Time: 01/19/22 7:03 pm Transcribed By: YAHAIRA Transcribed Date/Time: 01/19/22 7:01 pm * Exam Date Time Procedure Performing Provider Status 01/18/22 3:29 AM Chest Portable Chante Ring (Verified) Notes: (Chest Portable) Reason For Exam: Tube Placement RESULT: Chest Portable Chest Portable AP upright at 3:22 AM REASON: Tube Placement; Clinical Question(s): Tube Placement / Tube Placement COMPARISON: 01/17/2022 FINDINGS: Lateral aspect of the left lower chest is excluded from the [id number]-sacr. LINES AND TUBES: Endotracheal tube ends 4.2 cm above the jero. Enteric tube courses below the diaphragm, tip not included in the [id number]. Esophageal probe in place. Multiple wires project over the patient. LUNGS AND PLEURA: Diffuse coarse lung markings compatible with COPD. New hazy airspace opacity throughout the left lung, worst in the left mid to lower lung. No pleural effusion. New lucency along the left mediastinal border. No apical pneumothorax. HEART, MEDIASTINUM AND SHAHLA: Heart is normal in size. Normal mediastinal and hilar contour. BONES AND SOFT TISSUES: No acute abnormality. IMPRESSION: 1. Support structures as above. 2. New airspace opacity in the left lung, could be due to atelectasis, pneumonia, or aspiration. 3. Lucency along the left mediastinal border may be artifact, but pneumothorax is not entirely excluded. Recommend repeat upright chest radiograph for further evaluation. A critical result message (Rosine) has been communicated via the [employer] system on 01/18/2022 8:35 AM, Message ID [id number]. WSN: [id number] Ordering Physician: Gisell Levine Dictated By: Greg Mulligan MD Dictated Date/Time: 01/18/22 8:35 am Reviewed By: Greg Mulligan MD Signed By: Greg Mulligan MD Signed Date/Time: 01/18/22 8:35 am Transcribed By: YAHAIRA Transcribed Date/Time: 01/18/22 8:31 am * Exam Date Time Procedure Performing Provider Status 01/17/22 5:52 AM Chest Portable Shira Arreaga (Ve rified) Notes: (Chest Portable) Reason For Exam: Line Placement RESULT: Chest Portable Chest Portable Reason: Line Placement; Clinical Question(s): Line Placement COMPARISON: 01/14/2022 FINDINGS: Stable endotracheal tube. Stable enteric tube. No acute cardiopulmonary process. 0.7 cm nodule projecting over the left fourth anterior rib is likely artifactual. It was not present on prior images. IMPRESSION: No acute abnormality. WSN: [id number] Ordering Physician: Román Singletary Dictated By: Ta Armas MD Dictated Date/Time: 01/17/22 8:32 am Reviewed By: Ta Armas MD Signed By: Ta Armas MD Signed Date/Time: 01/17/22 8:32 am Transcribed By: YAHAIRA Transcribed Date/Time: 01/17/22 8:30 am * Exam Date Time Procedure Performing Provider Status 01/14/22 6:18 AM Chest Portable Rowan Gautam ([place] ified) Notes: (Chest Portable) Reason For Exam: Line Placement RESULT: Chest Portable Chest Portable performed upright at 5:41 AM Reason: Line Placement; Clinical Question(s): Line Placement COMPARISON: Multiple prior chest x-rays, the most recent of which is dated 01/13/2022. FINDINGS: LINES AND TUBES: The tip of the endotracheal tube is seen approximately 3.7 cm above the jero. An enteric tube extends to the stomach, with the tip not included on the film. LUNGS AND PLEURA: Improving aeration of the perihilar right midlung. Emphysematous changes are seen in the upper lungs. No pleural effusion. No pneumothorax. HEART, MEDIASTINUM AND SHAHLA: Heart is normal in size. Normal upper mediastinal and hilar contour. BONES AND SOFT TISSUES: No acute abnormality. IMPRESSION: 1. Endotracheal and enteric tubes as above. 2. Improving aeration of the perihilar right midlung. WSN: [id number] Ordering Physician: Román Singletary Dictated By: Maria Del Rosario Sarkar MD Dictated Date/Time: 01/14/22 5:04 pm Reviewed By: Maria Del Rosario Sarkar MD Signed By: Maria Del Rosario Sarkar MD Signed Date/Time: 01/14/22 5:04 pm Transcribed By: YAHAIRA Transcribed Date/Time: 01/14/22 5:03 pm * Exam Date Time Procedure Performing Provider Status 01/13/22 8:36 AM Chest Portable Mily Stevenson; Marine ( Verified) Notes: (Chest Portable) Reason For Exam: Line Placement RESULT: Chest Portable Chest Portable performed upright at 8:08 AM Reason: Line Placement; Clinical Question(s): Line Placement COMPARISON: Multiple prior chest x-rays, the most recent of which is dated 01/12/2022. FINDINGS: LINES AND TUBES: The tip of the endotracheal tube is seen approximately 3.2 cm above the jero. An enteric tube extends to the stomach. LUNGS AND PLEURA: Emphysematous changes are seen in the upper lung. Unchanged appearance of density in the right perihilar region. No pleural effusion. No pneumothorax. HEART, MEDIASTINUM AND SHAHLA: Heart is normal in size. Normal upper mediastinal and hilar contour. BONES AND SOFT TISSUES: No acute abnormality. IMPRESSION: 1. Endotracheal and enteric tubes as above. 2. Opacity in the perihilar region similar to the prior examination. WSN: [id number] Ordering Physician: Román Singletary Dictated By: Maria Del Rosario Sarkar MD Dictated Date/Time: 01/13/22 12:59 p Reviewed By: Maria Del Rosario Sarkar MD Signed By: Maria Del Rosario Sarkar MD Signed Date/Time: 01/13/22 12:59 pm Transcribed By: YAHAIRA Transcribed Date/Time: 01/13/22 12:57 pm * Exam Date Time Procedure Performing Provider Status 01/12/22 12:18 PM Chest Portable Aida Pastor; Marine (Veri fied) Notes: (Chest Portable) Reason For Exam: s/p intubation;Tube Placement RESULT: Chest Portable Chest Portable Reason: Tube Placement; COMPARISON: Earlier the same day. FINDINGS: Current exam labeled AP upright tube placement 12:07 PM. LINES AND TUBES: Interval insertion of an endotracheal tube, its tip 3 cm above the jero. An enteric tube remains in place. LUNGS AND PLEURA: There is developing right infrahilar consolidative opacity suggesting evolving infiltrate or atelectasis possibly related to aspiration in the proper clinical setting. No pleural effusion. No pneumothorax. HEART, MEDIASTINUM AND SHAHLA: Heart is normal in size. Normal upper mediastinal and hilar contour. BONES AND SOFT TISSUES: No acute abnormality. IMPRESSION: Endotracheal and enteric tubes appear appropriately positioned. Developing right basilar opacity. WSN: [id number] Ordering Physician: Pedro Luis Parada Dictated By: Nicola Staley MD Dictated Date/Time: 01/12/22 12:20 p Reviewed By: Nicola Staley MD Signed By: Nicola Staley MD Signed Date/Time: 01/12/22 12:20 pm Transcribed By: YAHAIRA Transcribed Date/Time: 01/12/22 12:19 pm * Exam Date Time Procedure Performing Provider Status 01/12/22 4:33 AM Chest Portable Natalia Flores; Auth ( Verified) Notes: (Chest Portable) Reason For Exam: Fever RESULT: Chest Portable Chest Portable Reason: Fever; Clinical Question(s): Aspiration COMPARISON: 01/10/2022. FINDINGS: LINES AND TUBES: An enteric tube is identified coursing over the esophagus and below the diaphragm with its tip at the junction of the fundus/body. LUNGS AND PLEURA: Clear lungs. Normal pulmonary vascularity. No pleural effusion. No pneumothorax. HEART, MEDIASTINUM AND SHAHLA: Heart is normal in size. Normal upper mediastinal and hilar contour. BONES AND SOFT TISSUES: No acute abnormality. IMPRESSION: No acute abnormality. WSN: [id number] Ordering Physician: Rene Jackman Dictated By: Nicola Staley MD Dictated Date/Time: 01/12/22 8:19 am Reviewed By: Nicola Staley MD Signed By: Nicola Staley MD Signed Date/Time: 01/12/22 8:19 am Transcribed By: YAHAIRA Transcribed Date/Time: 01/12/22 8:18 am * Exam Date Time Procedure Performing Provider Status 01/10/22 5:16 PM Chest Portable Sarahi Ryan; Auth (Verified) Notes: (Chest Portable) Reason For Exam: NG tube placement;Line Placement RESULT: Chest Portable Chest Portable Reason: Line Placement; NG tube placement; Clinical Question(s): Line Placement COMPARISON: Prior chest radiograph dated January 06, 2022. FINDINGS: LINES AND TUBES: Interval advancement of the enteric tube, whose tip and side-port now terminating within the stomach. Interval extubation. LUNGS AND PLEURA: Low lung volumes. Mildly congested vasculature without pulmonary edema, with hazy opacity in the mid and lower right lung appearing improved from the prior study. No effusion or pneumothorax. HEART, MEDIASTINUM AND SHAHLA: Heart is normal in size. Normal upper mediastinal and hilar contour. BONES AND SOFT TISSUES: No acute abnormality. Gaseous distention of bowel loops in the upper abdomen. Mild glenohumeral andacromioclavicular degenerative changes. IMPRESSION: Well-positioned enteric tube. Low lung volumes without definite acute cardiopulmonary process. WSN: [id number] Ordering Physician: Terell Bird Dictated By: Ki Frye MD Dictated Date/Time: 01/10/22 5:58 pm Reviewed By: Ki Frye MD Signed By: Ki Frye MD Signed Date/Time: 01/10/22 5:58 pm Transcribed By: YAHAIRA Transcribed Date/Time: 01/10/22 5:55 pm Vital Signs Most recent to oldest [Reference Range]: 1 2 3 Height 174 cm (01/31/22 1:59 PM) 174 cm (01/31/22 8:53 AM) 174 cm (01/31/22 6:20 AM) Weight 47.4 kg (01/31/22 7:30 AM) 47.9 kg (01/30/22 12:11 PM) 45.1 kg (01/25/22 8:39 AM) Oxygen Saturation [94-100 %] 95 % (01/31/22 2:00 PM) 98 % (01/31/22 1:59 PM) 100 % (01/31/22 6:20 AM) Pulse Rate [55-90 bpm] 102 bpm *H* (01/31/22 1:59 PM) 107 bpm *H* (01/31/22 8:53 AM) 108 bpm *H* (01/31/22 6:20 AM) Body Mass Index [18.5-24.99] 16.38 *L* (01/04/22 11:41 AM) Blood Pressure [90-138/55-84 mm Hg] 102/64mm Hg (01/31/22 2:00 PM) 110/71mm Hg (01/31/22 1:59 PM) 101/62mm Hg (01/31/22 8:53 AM) Respiratory Rate [16-30 br/min] 18 br/min (01/31/22 2:00 PM) 18 br/min (01/31/22 1:59 PM) 18 br/min (01/31/22 6:20 AM) Temperature [96.8-100.4 DegF] 97.8 DegF (01/31/22 2:00 PM) 97.8 DegF (01/31/22 1:59 PM) 98.2 DegF (01/31/22 6:20 AM) Liters per Minute 1 L/min (01/25/22 9:00 AM) 1 L/min (01/25/22 8:38 AM) 4 L/min (01/25/22 8:00 AM) Mode of Delivery (Oxygen) Room air (01/31/22 2:00 PM) Room air (01/31/22 1:59 PM) Room air (01/31/22 6:20 AM) Blood pressure sites Arm, left (01/31/22 2:00 PM) Arm, left (01/31/22 1:59 PM) Arm, left (01/31/22 8:53 AM) Temperature Route Oral (01/31/22 2:00 PM) Oral (01/31/22 1:59 PM) Oral (01/31/22 6:20 AM) Dry Weight 49.6 kg (01/04/22 11:41 AM) Weight Obtained Via Bed scale (01/31/22 7:30 AM) Bed scale (01/24/22 8:00 AM) Bed scale (01/23/22 5:45 AM) Dry Weight Obtained Via Bed scale (01/04/22 11:41 AM) Social History Social History Type Response Smoking Status Former smoker; Tob[employer] user in household: No entered on: 02/06/18 Sex Note * [employer] , CIS S: TRANSCRIBE Carmen RAJPUT , Christina Bunch: VERIFY Event Display: Result: Authored Date: [id number] Examination: Portable chest performed on 01/22/2022 at 2:43 AM. History: Tube placement. Findings: A frontal view of the chest is compared to a prior study dated 01/20/2022. Support apparatus is in expected location. The cardiac silhouette is within normal limits for size. The lungs are hyperinflated. Reticular increased interstitial lung markings bilaterally are present. There are no focal infiltrates or pleural effusions. The osseous structures are unremarkable. IMPRESSION: Support apparatus is in expected location. Increased interstitial lung markings which may be secondary to interstitial edema. WSN: [id number] Ordering Physician: Fuad Lozano Dictated By: Christina Morales MD Dictated Date/Time: 01/22/22 7:55 am Reviewed By: Christina Morales MD Signed By: Christina Morales MD Signed Date/Time: 01/22/22 7:55 am Transcribed By: YAHAIRA Transcribed Date/Time: 01/22/22 7:53 am * [place] , MICHEAL S: TRANSCRILencho Taveras MD: VERIFY Event Display: Result: Authored Date: [id number] Chest Portable Reason: Tube Placement; Clinical Question(s): Tube Placement COMPARISON: 01/19/2022 FINDINGS: LINES AND TUBES: Enteric tube tip and sidehole in the distal stomach. Endotracheal tube tip 4 cm above the jero. Temperature probe seen in the upper esophagus. LUNGS AND PLEURA: Slightly prominent reticular markings both lungs similar to previous exam. Possible right lung pneumonia. No pleural effusion. No pneumothorax. HEART, MEDIASTINUM AND SHAHLA: Heart is normal in size. Normal upper mediastinal and hilar contour. BONES AND SOFT TISSUES: No acute abnormality. IMPRESSION: Endotracheal tube, enteric tube in good position. WSN: [id number] Ordering Physician: Efraín Lo Dictated By: Lencho Can MD Dictated Date/Time: 01/20/22 11:41 p Reviewed By: Lencho Can MD Signed By: Lencho Can MD Signed Date/Time: 01/20/22 11:41 pm Transcribed By: YAHAIRA Transcribed Date/Time: 01/20/22 11:40 pm * Leander CIS S: TRANSCAmarilys Rivera MD: VERIFY Event Display: Result: Authored Date: [id number] AP portable chest, INDICATION: Reason: Fever Increased White Count; Clinical Question(s): Pneumonia COMPARISON: Plain film of the chest from this morning 3:22 AM FINDINGS: LINES AND TUBES: Endotracheal tube is 4 cm above the jero. NG tube ends in the stomach. Temperature probe in the mid esophagus. LUNGS AND PLEURA AND MEDIASTINUM: No pneumothorax or pleural effusion. Heart size is normal. Hyperinflation suggests COPD. Small hazy infiltrate in the right midlung zone more prominent from prior. IMPRESSION: Small hazy infiltrate in the right midlung zone. WSN: [id number] Ordering Physician: Terell Bird Dictated By: Amarilys Richard MD Dictated Date/Time: 01/19/22 7:03 pm Reviewed By: Amarilys Richard MD Signed By: Amarilys Richard MD Signed Date/Time: 01/19/22 7:03 pm Transcribed By: YAHAIRA Transcribed Date/Time: 01/19/22 7:01 pm * Leander CIS S: TRANSCRIGreg Montilla MD: VERIFY Event Display: Result: Authored Date: [id number] Chest Portable AP upright at 3:22 AM REASON: Tube Placement; Clinical Question(s): Tube Placement / Tube Placement COMPARISON: 01/17/2022 FINDINGS: Lateral aspect of the left lower chest is excluded from the [id number]. LINES AND TUBES: Endotracheal tube ends 4.2 cm above the jero. Enteric tube courses below the diaphragm, tip not included in the [id number]. Esophageal probe in place. Multiple wires project over the patient. LUNGS AND PLEURA: Diffuse coarse lung markings compatible with COPD. New hazy airspace opacity throughout the left lung, worst in the left mid to lower lung. No pleural effusion. New lucency along the left mediastinal border. No apical pneumothorax. HEART, MEDIASTINUM AND SHAHLA: Heart is normal in size. Normal mediastinal and hilar contour. BONES AND SOFT TISSUES: No acute abnormality. IMPRESSION: 1. Support structures as above. 2. New airspace opacity in the left lung, could be due to atelectasis, pneumonia, or aspiration. 3. Lucency along the left mediastinal border may be artifact, but pneumothorax is not entirely excluded. Recommend repeat upright chest radiograph for further evaluation. A critical result message (Rosine) has been communicated via the [employer] system on 01/18/2022 8:35 AM, Message ID [id number]. WSN: [id number] Ordering Physician: Gisell Levine Dictated By: Gerg Mulligan MD Dictated Date/Time: 01/18/22 8:35 am Reviewed By: Greg Mulligan MD Signed By: Greg Mulligan MD Signed Date/Time: 01/18/22 8:35 am Transcribed By: YAHAIRA Transcribed Date/Time: 01/18/22 8:31 am * MICHEAL Tabor S: TRANSCTa Russ MD: VERIFY Event Display: Result: Authored Date: [id number] Chest Portable Reason: Line Placement; Clinical Question(s): Line Placement COMPARISON: 01/14/2022 FINDINGS: Stable endotracheal tube. Stable enteric tube. No acute cardiopulmonary process. 0.7 cm nodule projecting over the left fourth anterior rib is likely artifactual. It was not present on prior images. IMPRESSION: No acute abnormality. WSN: [id number] Ordering Physician: Román Singletary Dictated By: Ta Armas MD Dictated Date/Time: 01/17/22 8:32 am Reviewed By: Ta Armas MD Signed By: Ta Armas MD Signed Date/Time: 01/17/22 8:32 am Transcribed By: YAHAIRA Transcribed Date/Time: 01/17/22 8:30 am * Leander CIS S: Maria Del Rosario Lebron MD: VERIFY Event Display: Result: Authored Date: [id number] Chest Portable performed upright at 5:41 AM Reason: Line Placement; Clinical Question(s): Line Placement COMPARISON: Multiple prior chest x-rays, the most recent of which is dated 01/13/2022. FINDINGS: LINES AND TUBES: The tip of the endotracheal tube is seen approximately 3.7 cm above the jero. An enteric tube extends to the stomach, with the tip not included on the film. LUNGS AND PLEURA: Improving aeration of the perihilar right midlung. Emphysematous changes are seen in the upper lungs. No pleural effusion. No pneumothorax. HEART, MEDIASTINUM AND SHAHLA: Heart is normal in size. Normal upper mediastinal and hilar contour. BONES AND SOFT TISSUES: No acute abnormality. IMPRESSION: 1. Endotracheal and enteric tubes as above. 2. Improving aeration of the perihilar right midlung. WSN: [id number] Ordering Physician: Román Singletary Dictated By: Maria Del Rosario Sarkar MD Dictated Date/Time: 01/14/22 5:04 pm Reviewed By: Maria Del Rosario Sarkar MD Signed By: Maria Del Rosario Sarkar MD Signed Date/Time: 01/14/22 5:04 pm Transcribed By: YAHAIRA Transcribed Date/Time: 01/14/22 5:03 pm * Leander , MICHEAL S: TRANSCRIBE Maria Del Rosario Sarkar MD: VERIFY Event Display: Result: Authored Date: [id number] Chest Portable performed upright at 8:08 AM Reason: Line Placement; Clinical Question(s): Line Placement COMPARISON: Multiple prior chest x-rays, the most recent of which is dated 01/12/2022. FINDINGS: LINES AND TUBES: The tip of the endotracheal tube is seen approximately 3.2 cm above the jero. An enteric tube extends to the stomach. LUNGS AND PLEURA: Emphysematous changes are seen in the upper lung. Unchanged appearance of density in the right perihilar region. No pleural effusion. No pneumothorax. HEART, MEDIASTINUM AND SHAHLA: Heart is normal in size. Normal upper mediastinal and hilar contour. BONES AND SOFT TISSUES: No acute abnormality. IMPRESSION: 1. Endotracheal and enteric tubes as above. 2. Opacity in the perihilar region similar to the prior examination. WSN: [id number] Ordering Physician: Román Singletary Dictated By: Maria Del Rosario Sarkar MD Dictated Date/Time: 01/13/22 12:59 p Reviewed By: Maria Del Rosario Sarkar MD Signed By: Maria Del Rosario Sarkar MD Signed Date/Time: 01/13/22 12:59 pm Transcribed By: YAHAIRA Transcribed Date/Time: 01/13/22 12:57 pm * Tannersccristybe , CIS S: TRANSCRIBE Nicola Staley MD: VERIFY Event Display: Result: Authored Date: [id number] Chest Portable Reason: Fever; Clinical Question(s): Aspiration COMPARISON: 01/10/2022. FINDINGS: LINES AND TUBES: An enteric tube is identified coursing over the esophagus and below the diaphragm with its tip at the junction of the fundus/body. LUNGS AND PLEURA: Clear lungs. Normal pulmonary vascularity. No pleural effusion. No pneumothorax. HEART, MEDIASTINUM AND SHAHLA: Heart is normal in size. Normal upper mediastinal and hilar contour. BONES AND SOFT TISSUES: No acute abnormality. IMPRESSION: No acute abnormality. WSN: [id number] Ordering Physician: Rene Jackman Dictated By: Nicola Staley MD Dictated Date/Time: 01/12/22 8:19 am Reviewed By: Nicola Staley MD Signed By: Nicola Staley MD Signed Date/Time: 01/12/22 8:19 am Transcribed By: YAHAIRA Transcribed Date/Time: 01/12/22 8:18 am * MICHEAL Tabor S: TRANSCRIBE Nicola Staley MD: VERIFY Event Display: Result: Authored Date: [id number] Chest Portable Reason: Tube Placement; COMPARISON: Earlier the same day. FINDINGS: Current exam labeled AP upright tube placement 12:07 PM. LINES AND TUBES: Interval insertion of an endotracheal tube, its tip 3 cm above the jero. An enteric tube remains in place. LUNGS AND PLEURA: There is developing right infrahilar consolidative opacity suggesting evolving infiltrate or atelectasis possibly related to aspiration in the proper clinical setting. No pleural effusion. No pneumothorax. HEART, MEDIASTINUM AND SHAHLA: Heart is normal in size. Normal upper mediastinal and hilar contour. BONES AND SOFT TISSUES: No acute abnormality. IMPRESSION: Endotracheal and enteric tubes appear appropriately positioned. Developing right basilar opacity. WSN: [id number] Ordering Physician: Pedro Luis Parada Dictated By: Nicola Staley MD Dictated Date/Time: 01/12/22 12:20 p Reviewed By: Nicola Staley MD Signed By: Nicola Staley MD Signed Date/Time: 01/12/22 12:20 pm Transcribed By: YAHAIRA Transcribed Date/Time: 01/12/22 12:19 pm * MICHEAL Tabor S: Ki Eden MD: VERIFY Event Display: Result: Authored Date: [id number] Chest Portable Reason: Line Placement; NG tube placement; Clinical Question(s): Line Placement COMPARISON: Prior chest radiograph dated January 06, 2022. FINDINGS: LINES AND TUBES: Interval advancement of the enteric tube, whose tip and side-port now terminating within the stomach. Interval extubation. LUNGS AND PLEURA: Low lung volumes. Mildly congested vasculature without pulmonary edema, with hazy opacity in the mid and lower right lung appearing improved from the prior study. No effusion or pneumothorax. HEART, MEDIASTINUM AND SHAHLA: Heart is normal in size. Normal upper mediastinal and hilar contour. BONES AND SOFT TISSUES: No acute abnormality. Gaseous distention of bowel loops in the upper abdomen. Mild glenohumeral andacromioclavicular degenerative changes. IMPRESSION: Well-positioned enteric tube. Low lung volumes without definite acute cardiopulmonary process. WSN: [id number] Ordering Physician: Terell Bird Dictated By: Ki Frye MD Dictated Date/Time: 01/10/22 5:58 pm Reviewed By: Ki Frye MD Signed By: Ki Frye MD Signed Date/Time: 01/10/22 5:58 pm Transcribed By: YAHAIRA Transcribed Date/Time: 01/10/22 5:55 pm * MICHEAL Tabor S: Greg Inman MD: VERIFY Event Display: Result: Authored Date: [id number] Chest Portable Reason: Fever; Clinical Question(s): Pneumonia / Pneumonia COMPARISON: 01/04/2022 FINDINGS: LINES AND TUBES: Endotracheal tube ends 4.5 cm above the jero. Enteric tube tip projects in the stomach, side port near the GE junction. Multiple wires project over the patient. LUNGS AND PLEURA: Diffuse coarse lung markings compatible with COPD. No evidence of superimposed consolidation. No pleural effusion. No pneumothorax. HEART, MEDIASTINUM AND SHAHLA: Heart is normal in size. Normal mediastinal and hilar contour. BONES AND SOFT TISSUES: No acute abnormality. IMPRESSION: Support structures as above. COPD without evidence of superimposed pneumonia. WSN: [id number] Ordering Physician: Papito Maldonado Dictated By: Greg Mulligan MD Dictated Date/Time: 01/06/22 9:30 am Reviewed By: Greg Mulligan MD Signed By: Greg Mulligan MD Signed Date/Time: 01/06/22 9:30 am Transcribed By: YAHAIRA Transcribed Date/Time: 01/06/22 9:29 am * BHSPowerscribe , CIS S: TRANSCRIBE Greg Mulligan MD: VERIFY Event Display: Result: Authored Date: [id number] Chest Portable AP supine at 8:31 AM REASON: Tube Placement; Clinical Question(s): Tube Placement / Tube Placement COMPARISON: 02/22/2019 FINDINGS: LINES AND TUBES: Endotracheal tube ends approximately 4 cm above the jero. Enteric tube tip projects in the stomach but the side port is above the GE junction. Multiple wires project over the patient. LUNGS AND PLEURA: Clear lungs. Normal pulmonary vascularity. No pleural effusion. No pneumothorax. HEART, MEDIASTINUM AND SHAHLA: Heart is normal in size. Normal mediastinal and hilar contour. BONES AND SOFT TISSUES: No acute abnormality. IMPRESSION: Support structures as above. Recommend advancing the enteric tube. WSN: [id number] Ordering Physician: Vikas Schrader MD Dictated By: Greg Mulligan MD Dictated Date/Time: 01/04/22 9:19 am Reviewed By: Greg Mulligan MD Signed By: Greg Mulligan MD Signed Date/Time: 01/04/22 9:19 am Transcribed By: YAHAIRA Transcribed Date/Time: 01/04/22 9:18 am Care Team Personnel Name: Nimesh Blackwood MD Address: [address] [place] [address]
--- OUTSIDE RECORDS SUMMARY | 2023-09-30 20:27 | XMS_ITS | Continuity of Care Document ---
Author Organization [facility] Address [address] [place] [id number]- Care Team Providers Care Rivet Tester Name Role Phone Jaison RAJPUT, Asma Primary Care Physician [phone] Encounter [facility] Date(s): 08/20/19 - 08/30/19 [facility] [address] [place] [id number] [facility] Attending Physician: Cornelius Barlow Admitting Physician: Cornelius [...] home on weekends., 1 tablet By Mouth Kathelen... Start Date: 07/18/15 Status: Ordered Heplisav-B 20 [...]
--- OUTSIDE RECORDS SUMMARY | 2023-09-30 20:27 | XMS_ITS | Continuity of Care Document ---
Author Organization [facility] Address [address] [place] [address]- Care Team Providers Care Training Systems Officer Name Role Phone Jaison RAJPUT, Nimesh Primary Care Physician [phone] Encounter [facility] Date(s): 08/11/19 - 09/19/19 [facility] [address] [place] [id number]- [facility] Attending Physician: Bon Sandoval MD Admitting Physician: Bon Sandoval MD Referring Physician: Nimesh Blackwood MD Allergies, Adverse Reactions, Alerts Substance Reaction Severity [...] By Mouth, Daily, Give in AM on M, , , , and Fridays, # 22 [...]
--- OUTSIDE RECORDS SUMMARY | 2023-09-30 20:27 | XMS_ITS | Continuity of Care Document ---
Author Organization [facility] ter Address [address] [place] [id number]- Care Team Providers Care Horticulture Superintendent Name Role Phone Jaison RAJPUT, Asma Primary Care Physician Encounter [facility] Date(s): 04/06/23 - 04/07/[address] [address]- Encounter Diagnosis HIV (human immunodeficiency virus infection)(Final) - 04/06/23 Altered mental status(Final) - 04/06/23 HTN (hypertension)(Final) - 04/06/23 Discharge Disposition: A-D/C Home Attending Physician: Gera Jain MD Admitting Physician: Gera Jain MD Referring Physician: Not on Staff, Referring [...] capsule, 1 Refills, Maintenance, 04/07/23 15:10:00 EST, [facility], Partial fill upon patient request if [...] Refills, Maintenance, 04/07/23 15:11:00 EST, DIS Tablet, [facility], Partial fill upon patient request if [...] Confirmed Active Hepatitis C virus Confirmed Active Results Orders for Microbiology Reports Name Date Blood Culture 04/06/23 Blood Culture #2 04/06/23 Microbiology Reports TEST:Blood Culture, Second Order STATUS:Unauthenticated BODY SITE: SOURCE:Blood COLLECTED DATE/TIME:04/06/23 2:12 AM Blood Culture, Second Order SPECIMEN DESCRIPTION : BLOOD RA SPECIAL REQUESTS : NONE CULTURE : NO GROWTH AFTER 24 HOURS REPORT STATUS : PRELIMINARY REPORT TEST:Blood Culture STATUS:Unauthenticated BODY SITE: SOURCE:Blood COLLECTED DATE/TIME:04/06/23 2:00 AM Blood Culture SPECIMEN DESCRIPTION : BLOOD RAC SPECIAL REQUESTS : NONE CULTURE : NO GROWTH AFTER 24 HOURS REPORT STATUS : PRELIMINARY REPORT Radiology Reports * Exam Date Time Procedure Performing Provider Status 04/07/23 2:07 PM Chest Portable Jesica Wilson; Aut h (Verified) Notes: (Chest Portable) Reason For Exam: Shortness of Breath RESULT: Chest Portable Chest Portable INDICATION: Reason: Shortness of Breath; Clinical Question(s): CHF COMPARISON: 03/21/2023 FINDINGS: LINES AND TUBES: None. LUNGS AND PLEURA: Shallow inspiratory effort similar to the prior exam No definite evidence of confluent airspace opacity, lung consolidation or pulmonary vascular redistribution. Costophrenic sulci are maintained. No evidence of pneumothorax. HEART, MEDIASTINUM AND SHAHLA: Cardiomediastinal silhouette is unremarkable as visualized. BONES AND SOFT TISSUES: No acute abnormality IMPRESSION: Shallow inspiratory effort. No definite evidence of active cardiopulmonary process WSN: [id number] Ordering Physician: Angy Rosas Dictated By: Tolu Betancourt Jr, MD Dictated Date/Time: 04/07/23 2:22 pm Reviewed By: Tolu Betancourt Jr, MD Signed By: Tolu Betancourt Jr, MD Signed Date/Time: 04/07/23 2:22 pm Transcribed By: YAHAIRA Transcribed Date/Time: 04/07/23 2:21 pm * Exam Date Time Procedure Performing Provider Status 04/06/23 2:[address] Head/Brain W/O Contrast Michelle Barton (Verified) Notes: (CT Head/Brain W/O Contrast) Reason For Exam: Behavior Problem RESULT: CT Head/Brain W/O Contrast CT Head/Brain W/O Contrast INDICATION: Behavior Problem; Clinical Question(s): Hematoma. TECHNIQUE: Noncontrast head CT using axial technique and reconstructed in axial and coronal planes.Iterative reconstruction techniques are used to optimize dose and image quality. CTDIvol Head: 47.10 mGy, DLP Head: 773 mGy*cm. COMPARISON: 01/04/2022 FINDINGS: Patrol Deputy Sheriff view findings, lines and tubes: None. BRAIN AND EXTRA-AXIAL SPACES: No parenchymal hemorrhage, midline shift, or mass effect. Centeno-white matter differentiation is wellpreserved. No acute infarct. Negative insular ribbon sign. Atherosclerotic vascular calcification of the carotid arteries but negative hyperdense vessel sign. Mild prominence of the ventricles and sulci consistent with parenchymal volume loss. Mild low-density white matter changes. No subarachnoid hemorrhage. No subdural or epidural collection. CALVARIUM, SKULL BASE, AND SOFT TISSUES: No fractures or suspicious bony lesions. The paranasal sinuses and mastoid air cells are clear. Visualized orbits and globes are intact. The extracranial soft tissues are unremarkable. IMPRESSION: No acute intracranial pathology. I have personally reviewed the images and I agree with this report. WSN: [id number] Ordering Physician: Sofy Chacon Dictated By: Mariano Carmona MD Dictated Date/Time: 04/06/23 6:06 am Reviewed By: Maria Del Rosario Sarkar MD Signed By: Maria Del Rosario Sarkar MD Signed Date/Time: 04/06/23 6:11 am Transcribed By: YAHAIRA Transcribed Date/Time: 04/06/23 3:02 am Vital Signs Most recent to oldest [Reference Range]: 1 2 3 Oxygen Saturation [94-100 %] 99 % (04/07/23 2:42 PM) 100 % (04/07/23 11:23 AM) 99 % (04/07/23 7:42 AM) Pulse Rate [55-90 bpm] 110 bpm *H* (04/07/23 2:42 PM) 111 bpm *H* (04/07/23 11:23 AM) 111 bpm *H* (04/07/23 7:42 AM) Blood Pressure [90-138/55-84 mm Hg] 143/107mm Hg *H* (04/07/23 2:42 PM) 133/119mm Hg (04/07/23 11:23 AM) 153/119mm Hg *H* (04/07/23 7:42 AM) Respiratory Rate [16-30 br/min] 18 br/min (04/07/23 2:42 PM) 20 br/min (04/07/23 11:23 AM) 18 br/min (04/07/23 7:42 AM) Temperature [96.8-100.4 DegF] 98.2 DegF (04/07/23 2:42 PM) 97.5 DegF (04/07/23 7:42 AM) 98.1 DegF (04/07/23 5:39 AM) Mode of Delivery (Oxygen) Room air (04/07/23 2:42 PM) Room air (04/07/23 11:23 AM) Room air (04/07/23 7:42 AM) Blood pressure sites Arm, left (04/07/23 2:42 PM) Arm, left (04/07/23 11:23 AM) Arm, left (04/07/23 7:42 AM) Temperature Route Oral (04/07/23 2:42 PM) Oral (04/07/23 7:42 AM) Oral (04/07/23 5:39 AM) Social History Social History Type Response Smoking Status Former smoker; Tobac co user in household: No entered on: 02/06/18 Sex Consult note * Aaron MODI, Nubia Melendez: PERFORM, MODIFY, MODIFY Event Display: Consultation Note Authored Date: [id number] Patient: ??GUESS, ABIDA ? Age:??67 Years?Sex:??Male?:??1955?? Chief Complaint AMS/fall REASON FOR CONSULTATION: Medication evaluation REFERRING PHYSICIAN: Maggie Corcoran MD SOURCE OF INFORMATION:?? Per patient,??CIS records, crisis evaluations IDENTIFYING INFORMATION: Abida Corrales is a 67-year-old male with past medical history significant for??HIV-related dementia, schizoaffective disorder, Hepatitis C, HTN, liver failure??who initially presented to [facility] for altered mental status reporting a fall at his rest home. History of Present Illness Abida??is known to the [facility] psychiatry service from prior consultations and/or inpatient hospitalizations. Most recent consult was in 2021. Per current ED??documentation,?? 67-year-old male with history of HIV unclear compliance of HAART therapy, dementia, schizophrenia that presents for altered mental status.?? According to patient's nursing facility today patient was noted to have to themwhat appeared to be decompensated state.?? Nurse reporting tangential thinking and also reported that he fell but this was unwitnessed and patient had no evidence of falls at the facility.?? At this time patient offers no complaints and is requesting pizza...?? ...Patient's overall medical workup reassuring. ??CT head negative for acute processes. ??Patient'swithout leukocytosis and rather normal electrolytes. ??Patient has consistent mood swings here in the department and is asking for his engineering psychologist as well as his . ??He is also requesting pizza [facility] and stating that he can be a surgeon. ??I suspect patient's likely has decompensated psychosis from noncompliance of his antipsychotic medication. ??Low suspicion for opportunistic infection at this time given workup. ??Will obtain Kelley psych evaluation before determining disposition. Initial vital signs in the ED were notable for HR 123, BP 157/125. Labs were reviewed. CBC unremarkable. CMP notable only for K 5.3, protein 9.3. TSH level normal. Valproic acid level undetectable. Ammonia level undetectable. Diagnostic imaging reviewed. ECG recorded QTc(Bazett) of [address] of Head/Brain showed No acute intracranial pathology. ?? Abida??was subsequently medically cleared and referred to emergency psychiatry services for evaluation and assistance with disposition for potential inpatient psychiatric hospitalization. On approach, Abida is sitting up in his bed, eating corn flakes. When I ask him his name, he says, I'm Frank Huerta! He does know that he is at [facility] and eventually remembers that it is 2022 after saying 20-200 a couple of times as his guess. He reports that he he is here not forpneumonia for something involving a black hole. He begins talking at length about the univers and how he is 50 million years old. I invented [place]. Says he was born in the [facility]. Tells me that he lives in a mansion in [place] and is a master of deception. Says, I own 50,000 ounces. Asks me if he can watch the [employer] Awards. Tells me that he has been taking his medication, denies auditory/visual hallucinations. Denies any suicidal ideation,??homicidal ideation or desires for nonsuicidal self-injury. Unable to obtain past medical, psychiatric and family history from the p atient??due to??altered mentation secondary to acute psychiatric illness. Details gleaned from extensive chart review and collateral from [facility]. ?? I spoke to Lauren, a med tech at [facility] where Abida has lived since 2016. She says that at baseline he is quietly delusional, he will say that he is a member of the temptations orthat his mother is Orthophotography Technician Parul. Earlier this month he was admitted to [facility] after becoming dehydrated when he was refusing to drink the water due to fears of it being poisoned. Yesterday he startedacting more bizarre, discussing masturbation with female staff, which is out of character for him. He says that he is not sleeping. He generally stays in his room most of the day but never misses meals but yesterday he didn't even come out for meals. He was acting confused, discussing his who has been for ten years. He said that he was moving out and packed up his entire room. ?? PSYCHIATRIC REVIEW OF SYSTEMS (positives in bold) DEPRESSION: depressed mood, diminished interest, weight loss or appetite change, insomnia/hypersomnia, psychomotor agitation/retardation, fatigue, feelings of worthlessness or guilt, inability to concentrate/indecisiveness, recurrent thoughts of ANXIETY: restlessness, fatigue, difficulty concentrating, irritability, muscle tension, sleep disturbance; panic attacks KEVIN: grandiosity, decreased need for sleep, pressured speech, flight of ideas, distractibility, increase in goal-directed activity/psychomotor agitation, dangerous activities PSYCHOSIS: delusions, hallucinations, disorganized speech, disorganized behavior, diminished emotional expression/avolition TRAUMA: intrusion symptoms, avoidance, negative alterations in cognition and mood, alterations in arousal and reactivity MISCELLANEOUS: sleep apnea; impulsivity ? Psychiatric History PAST AND CURRENT PSYCHIATRIC DIAGNOSES: Schizoaffective disorder, HIV-related delirium HISTORY OF PSYCHIATRIC HOSPITALIZATION: At least five, including [facility]TU (07/13/2015 - 07/19/2015 and 1997) PAST PSYCHIATRIC TREATMENTS AND MEDICATION: Current: Zyprexa, Remeron, Haldol decanoate, Depakote. Past: trazodone. No history of ECT treatments. OUTPATIENT TREATMENT PROVIDERS:??Tom Elizondo MP; Cary Vargas NP HISTORY OF UNSAFE IDEAS AND BEHAVIORS: History of psychosis.??Rest home??staff reports that although he has never been violent, in the past he has raised his fists and tried to intimdate when decompensated. No history of??suicidal??ideas, suicide plans, or suicide attempts. No history of prior intentional self-injury in which there was no suicide intent. ? Substance Use History Per chart, patient has a history of polysubstance use, including heroin, currently in remission. ? Medical History PCP: Nimesh Blackwood MD HIV-related dementia No history of head injuries, seizures, or chronic headaches. ? Family History Did not report any known psychiatric illness or substance use disorders in biological relatives. ? Personal and Social History BRIEF BIOGRAPHY: Abida is a limited historian so biographical data obtained from chart review andcollateral sources. Has lived at [facility] since 2017. He is a , his at least 10 years ago. He is estranged from other family members. Prior to living at the [facility], he was in adult foster care. No known history of arrests, incarcerations, probation, or other disciplinary consequences due to past aggressive behavior. STRESSORS: None known TRAUMA HISTORY: Unknown history of emotional, verbal, physical, and/or??sexual trauma.? Review of Systems Pertinent positives as listed above in HPI. ??Otherwise, remainder of review of systems negative. ?? Mental Status Vitals & Measurements T:??97.9?F?? HR:??106??(Peripheral)?? RR:??20?? BP:??154/104?? SpO2:??100%? MENTAL STATUS EXAMINATION ?? APPEARANCE: disheveled, dressed in a hospital gown, thin, appears younger than stated age;??goodeye contact ATTITUDE: cooperative MOTOR ACTIVITY: calm, no involuntary movements or abnormalities of motor tone; coordination unremarkable, not observed ambulating SIGHT AND HEARING: apparently intact MOOD: fine AFFECT: expansive, animated, congruent with mood SPEECH: slightly pressured; normal prosody - spontaneous, good articulation, clear tone, appropriately placed inflections; normal volume PERCEPTION: no impairment - denies auditory and visual hallucinations; no objective impairment, preoccupation, or responding to internal stimuli?? COGNITION: alert, oriented to person/place/time, not situation, memory grossly intact, appropriate level of abstraction, fair attention span JUDGMENT: severely??impaired ability to make reasonable decisions INSIGHT: poor THOUGHT PROCESS: disorganized THOUGHT CONTENT: delusions; denies current suicidal ideas, suicide plans, and suicide intent, including active or passive thoughts of suicide or ; denies current aggressive or psychotic ideas, including thoughts of physical or sexual aggression or homicide? ADHERENCE: unknown RELIABILITY:??limited historian SUICDALITY/SELF-DESTRUCTIVE BEHAVIOR: none HOMICIDALITY/VIOLENCE: none?? Sumner Suicide Score Sumner Suicide Assessment Ca (03/22/23) Suicidal Thoughts Past Month - CSSRS: No (03/22/23) Suicide Behavior Lifetime - CSSRS: No (03/22/23) Wish to be Past Month - CSSRS: No (03/22/23) Assessment/Plan ?? ASSESSMENT In brief, this is a 67-year-old male with past medical history significant for??HIV-related dementia, schizoaffective disorder, Hepatitis C, HTN, liver failure??who initially presented to [facility] for altered mental status reporting a fall at his rest home. At this point in time, thepatient has been medically cleared and referred to??crisis clinicians??for evaluation and assistance with disposition for potential inpatient psychiatric hospitalization. The emergency psychiatry service was consulted for assistance with medication management. Reviewed data including: medical records, crisis evaluations, collateral, test results, discussion with attending psychiatrist. Initial psy chiatric evaluation revealed patient to be elevated, pressured, delusional, disorganized. States that he lives in a mansion in [place], was born in a black hole. Staff from the rest home havenoticed a change from his baseline, which is typically more quietly delusional. He has a history ofdiverting his medications. Valproic acid level today was negligible. Patient denies auditory and visual hallucinations. Denies suicidal ideation, homicidal ideation, and desire for nonsuicidal self-injury. Patient's current presentation represents an established problem that is inadequately controlled, likely due to nonadherence to medications. Patient has not been hospitalized since 2016 and hasbeen relatively stable since then. Given staff reports of history of medication diversiton and negligible Valproic acid level, it is likely that patient has not been taking all his medications as prescribed. Due to patient's level of decompensation, I was unable to ask the patient about treatment-related preferences or explain??to the patient the differential diagnosis, risks of untreated illness, treatment options, and benefits and risks of treatment. Before adjusting doses, it would be helpful to switch formulations of medications to allow for easier administration and decrease the chances that patient will divert the medications. See below for detailed treatment recommendations. Patient has not been agitated or aggressive, either at his rest home or in the hospital. He has adequate support at the rest home and is appropriate for discharge home. ?? DIAGNOSES Schizoaffective disorder, bipolar type Neurocognitive disorder 2/2 HIV Nonadherence to medication At risk for delirium ?? RECOMMENDATIONS -Patient is not appropriate for inpatient psychiatric treatment. Refer to case management to coordinate discharge back to facility. -Continue home medications: ? -Depakote 250 mg PO daily - switch to Sprinkles to increase likelihood of administration, decrease likelihood of diversion ? -Zyprexa 15 mg PO daily - switch to Zydis (ODT) to increase likelihood of administration, decrease likelihood of diversion ? -Remeron ODT 15 mg PO daily at bedtime ? -Haldol decanoate 100 mg IM monthly (last administered on 03/19/2023) -Start Trazodone 25 mg PO twice daily PRN anxiety/insomnia -Start Zyprexa 2.5 mg PO twice daily PRN agitation/psychosis -The preference is for PO medications, but if the patient refuses the oral medications and there issufficient acute safety concern, can judiciously utilize IM??medications for severe agitation.?? -Would note that these medications are only being utilized in the ER while the patient awaits placement. Long-term need for these medications will need to be assessed by the patient's future treatingpsychiatrist. -Because patient is here in a psychiatric crisis, it is particularly important to be clear when communicating with them. Please try to avoid medical jargon. -Seclusion or restraint may only be used as interventions of last resort in the management of severe agitation in patient. If they are used, seclusion and restraint episodes should be as short as possible, dignified, and as safe as possible for all involved. Patient preference should always be considered when feasible. ?? Thank you for allowing us to participate in this patient's care. We will continue to follow the patient as needed by the primary team. Please feel free to contact the Psychiatry consult service ([phone] or page [phone]) with any questions or concerns.? Case and plan discussed with attending psychiatrist, Dr. Charlotte Talley. Recommendations??sent via [employer] to Dr. Sofy Chacon. ? Nubia Walker BA MSN PMHNP- Emergency Psychiatry Services Division of Consultation-Liaison Psychiatry [facility] ? Problem List/Past Medical History Ongoing Hepatitis C virus HIV dementia HIV disease Iatrogenic hypotension Underweight Procedure/Surgical History No qualifying data available. Medications albuterol 90 mcg/inh inhalation powder, 2 puffs, Inhalation, Every 4 hours, PRN albuterol CFC free 90 mcg/inh inhalation aerosol, 180 mcg= 2 puffs, Inhalation, Every 4 hours, PRN divalproex sodium 250 mg oral enteric coated tablet, 250 mg= 1 tablet, By Mouth, Daily haloperidol decanoate 100 mg/ml injectable solution, 100 mg= 1 mL, Intramuscular, Every 28 days Keppra 500 mg oral tablet, 1000 mg, By Mouth, 2 times a day Keppra XR 500 mg oral tablet, extended release, 1000 mg= 2 tablet, By Mouth, 2 times a day MiraLax oral powder for reconstitution, 17 Gm, By Mouth, Daily, PRN MiraLax Powder, 17 Gm= 1 pack/packet, By Mouth, Daily, PRN mirtazapine 15 mg oral tablet, disintegrating, 15 mg= 1 tablet, By Mouth, Daily at bedtime Mirtazapine ODTablet, 15 mg, By Mouth, Daily at bedtime Odefsey oral tablet, 1 tablet, By Mouth, Daily Odefsey Tablet, 1 tablet, By Mouth, Daily olanzapine 15 mg oral tablet, disintegrating, 15 mg= 1 tablet, By Mouth, Daily olanzapine 7.5 mg oral tablet, 15 mg, By Mouth, Daily thiamine 100 mg oral tablet, 100 mg, By Mouth, Daily Tylenol 325 mg oral tablet, 650 mg= 2 tablet, By Mouth, Every 6 hours, PRN Vitamin B1 100 mg oral tablet, 100 mg= 1 tablet, By Mouth, Daily Allergies NKA Social History Alcohol Use: Never. Substance Abuse Use: Never. Tobacco Former smoker, Tobacco user in household: No. Immunizations Vaccine Date Status SARS-CoV-2 (COVID-19) mRNA BNT-162b2 vac 06/30/2020 Recorded SARS-CoV-2 (COVID-19) mRNA BNT-162b2 vac 06/09/2020 Recorded pneumococcal 13-valent vaccine 06/16/2019 Given tetanus/diphtheria/pertussis, acel(Tdap) 06/16/2019 Given hepatitis B adult vaccine 02/06/2018 Given Comments : Heplisav-B influenza virus vaccine, inactivated - Not Given Comments : Patient Refuses influenza virus vaccine, inactivated - Not Given Comments : Patient Refuses per pt i already had a flu shot. Pneumovax 23 (oldterm) 07/16/2008 Recorded Health Maintenance Health Maintenance ?Pending??(in the next year) ?OverDue ?Health Care Proxy due?07/10/20?and every 5?years ?5 yr Lipids Screening due?03/12/21?and every 5?years ?Due?Chronic Obstructive Pulmonary Disease - Spirometry Evaluation due?04/06/23?One-time only ?Colorectal Cancer Screening due?04/06/23?Variable frequency ?Depression Screening due?04/06/23?Unknown Frequency ?Fall Risk Screening due?04/06/23?Variable frequency ?Prostate Cancer Shared Decision Making due?04/06/23?Variable frequency ?Due In Future?Syphilis Infection Screening not due until?02/27/24?and every 1?years ?Basic Metabolic Panel not due until?04/05/24?and every 1?years ?Satisfied??(in the past 1 year) ?Satisfied?Basic Metabolic Panel on?04/06/23.?Satisfied by Contributor_system , [facility] ?Diabetes Screening on?04/06/23.?Satisfied by Contributor_system , [facility] ?Syphilis Infection Screening on?02/26/23.?Satisfied by Contributor_system , [facility] ?? Lab Results Abs. Baso: 0 k/mm3 (04/06/23) Abs. Eo: 0.1 k/mm3 (04/06/23) Abs. Imm Gran: 0 k/mm3 (04/06/23) Abs. Lymph:??4.2 k/mm3??High (04/06/23) Abs. Tucker: 0.5 k/mm3 (04/06/23) Abs. Neut: 1.7 k/mm3 (04/06/23) Abs. NRBC: 0 k/mm3 (04/06/23) AG Ratio: 0.7 (03/21/23) Albumin: 3.8 Gm/dL (04/06/23) Albumin, Urine: 1+ Abnormal (03/22/23) Alkaline Phosphatase: 79 units/L (04/06/23) ALT (SGPT): 34 units/L (04/06/23) Ammonia, Venous:??<10??Low (04/06/23) Anion Gap: 10 (04/06/23) Appear/Color, Urine: YELLOW (03/22/23) AST (SGOT): HEMOLYZED (04/06/23) Atypical Lymph %: 3 % (03/21/23) Band %: 3 % (03/22/23) Baso %: 0.5 % (04/06/23) Bicarbonate Level: 25 mmol/L (04/06/23) Bilirubin, Direct: HEMOLYZED (04/06/23) Bilirubin, Indirect: Unable to calculate (04/06/23) Bilirubin, Total: 0.5 mg/dL (04/06/23) Bilirubin, Urine: NEGATIVE (03/22/23) Blood Culture: Blood Culture (03/21/23) Blood Culture, Second Order: Blood Culture, Second Order (03/21/23) BUN: 19 mg/dL (04/06/23) C.difficile Toxin: Negative. C.Difficile bacterial antigen and toxin not detected. A (03/22/23) Calcium: 9.8 mg/dL (04/06/23) Chloride: 105 mmol/L (04/06/23) CK, Total: HEMOLYZED (04/06/23) Creatinine-Blood: 0.7 mg/dL (04/06/23) Eos %: 1.5 % (04/06/23) Est Creatinine Clearance: 73.29 mL/min (03/23/23) Estimated GFR Creatinine: 100 ML/MIN/1.73 M2 (04/06/23) Glucose Level:??100 mg/dL??High (04/06/23) Glucose, Urine: NEGATIVE (03/22/23) Hct: 47.5 % (04/06/23) Hemoglobin, Urine: NEGATIVE (03/22/23) Hgb: 15.5 Gm/dL (04/06/23) High Sensitivity Troponin (HSTnT): 10 ng/L (04/06/23) Hold Blue Top: SPECIMEN DISCARDED AFTER 4 HOURS. (04/06/23) Imm Gran: 0.2 % (04/06/23) Ketones, Urine: NEGATIVE (03/22/23) Lactate: 1.5 mmol/L (04/06/23) Leukocyte, Urine: NEGATIVE (03/22/23) Lipase: 19 units/L (03/21/23) Lymph %:??64.2 %??High (04/06/23) Magnesium: 2.1 mg/dL (04/06/23) MCH: 30.1 pg (04/06/23) MCHC:??32.6 g/dL??Low (04/06/23) MCV: 92.2 femtoliters (04/06/23) Metamyelocyte %:??3 %??High (03/21/23) Tucker %: 7.6 % (04/06/23) MPV: 9.6 femtoliters (04/06/23) Mucus: SLIGHT (03/22/23) Neut %:??26 %??Low (04/06/23) Nitrite, Urine: NEGATIVE (03/22/23) Nucleated RBC (Automated): 0 #/100 WBC'S (04/06/23) pH, Urine: 6 (03/22/23) Platelet Count: 286 k/mm3 (04/06/23) Platelet Estimate: ADEQUATE (03/22/23) Potassium: 5 mmol/L (04/06/23) Potassium (POC) POC Cartridge:??5.3 mmol/L??High (04/06/23) Promyelocyte %: 1 % (03/21/23) Protein, Total:??9.3 Gm/dL??High (04/06/23) RBC: 5.15 m/mm3 (04/06/23) RBC's, Urine: 1 /HPF (03/22/23) RDW-SD: 46.2 femtoliters (04/06/23) Sodium: 140 mmol/L (04/06/23) Specific [place], Urine:??1.033??High (03/22/23) TSH: 3.36 uIU/mL (04/06/23) Urine Culture: Urine Culture (03/22/23) Urobilinogen: NORMAL (03/22/23) Valproic Level:??<2.8??Low (04/06/23) WBC: 6.5 k/mm3 (04/06/23) WBC Morphology: FEW (03/22/23) WBC's, Urine: 1 /HPF (03/22/23) Diagnostic Results Result type:?CT Head/Brain W/O Contrast Result date:?April 06, 2023 2:42 EST Result status:?Auth (Verified) Result title:?CT Head/Brain W/O Contrast Performed by:?Mariano Carmona MD on April 06, 2023 6:06 EST Verified by:?Maria Del Rosario Sarkar MD on April 06, 2023 6:11 EST Encounter info:?[id number], [facility], Emergency, 04/06/2023 -? * Final Report * ?? Reason For Exam Behavior Problem ?? RESULT: CT Head/Brain W/O Contrast CT Head/Brain W/O Contrast? INDICATION: Behavior Problem; Clinical Question(s): Hematoma. ?? TECHNIQUE: Noncontrast head CT using axial technique and reconstructed in axial and coronal planes.Iterative reconstruction techniques are used to optimize dose and image quality.? CTDIvol Head: 47.10 mGy, DLP Head: 773 mGy*cm. ? COMPARISON: 01/04/2022 ?? FINDINGS:? Patrol Deputy Sheriff view findings, lines and tubes: None. ?? BRAIN AND EXTRA-AXIAL SPACES: No parenchymal hemorrhage, midline shift, or mass effect. Centeno-white matter differentiation is wellpreserved. No acute infarct. Negative insular ribbon sign. Atherosclerotic vascular calcification of the carotid arteries but negative hyperdense vessel sign. ? Mild prominence of the ventricles and sulci consistent with parenchymal volume loss. ? Mild low-density white matter changes. ?? No subarachnoid hemorrhage. No subdural or epidural collection. ?? CALVARIUM, SKULL BASE, AND SOFT TISSUES: No fractures or suspicious bony lesions.? The paranasal sinuses and mastoid air cells are clear. ?? Visualized orbits and globes are intact.? The extracranial soft tissues are unremarkable. ?? IMPRESSION: ?? No acute intracranial pathology. ?? I have personally reviewed the images and I agree with this report. WSN: [id number] ? Ordering Physician: Sofy Chacon? Signature Line Dictated By: ?Mariano Carmona MD Dictated Date/Time: ?04/06/23 6:06 am Reviewed By: ?Maria Del Rosario Sarkar MD Signed By: ? Maria Del Rosario Sarkar MD Signed Date/Time: ? 04/06/23 6:11 am Transcribed By: ? CSB Transcribed Date/Time: ?04/06/23 3:02 am ? CT Head/Brain W/O Contrast This document has an image ? Result type:?ECG 12-Lead Result date:?April 06, 2023 2:14 EST Result status:?Preliminary Result title:?12 Lead ECG Encounter info:?[id number], [facility], Emergency, 04/06/2023 -?? Contributor system:?MUSE ?? Attachments: April 06, 2023 2:14 EST - [id number] ?? * Preliminary Report * ?? [id number] Ventricular Rate: 108 ??BPM Atrial Rate: 108 ??BPM P-R Interval: 174 ??ms QRS Duration: 70 ??ms Q-T Interval: 344 ??ms QTC Calculation(Bazett): 460 ??ms P Milmay: 68 ??degrees R Milmay: -55 ??degrees T Milmay: 72 ??degrees Sinus tachycardia Possible Left atrial enlargement Left anterior fascicular block Inferior infarct , age undetermined Abnormal ECG When compared with ECG of 25-JAN-2022 22:20, ST no longer depressed in Inferior leads ?? Sarepta: , ?? ECG 12-Lead Please click on pdf link to open report ?? * Nubia Walker NP: PERFORM Event Display: Consultation Note Authored Date: [id number] Current Pedraza order, expires 12/27/2023 ?? Antipsychotic medication: Haldol decanoate - 100 mg IM per month (Range: 0-300 mg IM every 1-6 weeks) Zyprexa - 15 mg daily (Range: 0-30 mg daily PO or IM) ?? Alternative antipsychotic medication: Risperdal - 0-8 mg PO daily, Risperdal Consta - 0-50 mg IM every 2 weeks Seroquel - 0-750 mg/day Haldol - 0-20 mg PO/IM daily ? Patient's legal guardian is Tin Berry. Patient Care team information Care Team Personnel Name: Adan Martin RN Position: [facility] RN Member Role: Primary Care Nurse Name: Antonietta Monae RN Position: [facility] RN Member Role: Primary Care Nurse Name: Lisa Shaikh RN Position: [facility] SN RN Member Role: Primary Care Nurse Name: Natacha Fuentes RN Position: [facility] RN Member Role: Primary Care Nurse Name: Rodriguez Alejandre RN Position: [facility] RN Member Role: Primary Care Nurse Name: Fabio Lang RN Position: [facility] RN Member Role: Primary Care Nurse Name: Nimesh Blackwood MD Position: [facility] Physician - Primary Care Member Role: PCP Address: Address: [address] [place] [address]- Name: Junie Santacruz RN Position: [facility] RN Member Role: Primary Care Nurse Name: Trina Harrison RN Position: [facility] RN Member Role: Primary Care Nurse Name: Junie Mendez RN Position: [facility] RN Member Role: Primary Care Nurse Name: Marisela Canseco RN Position: [facility] RN Member Role: Primary Care Nurse Name: Tino Madera MD Position: [facility] Physician - Infectious Disease Member Role: Lifetime Consulting Physician Address: Address: [address] [place] [address] [place] [address]- Name: Angy Corcoran RN Position: [facility] RN Member Role: Primary Care Nurse Name: Imelda Alicia RN Position: [facility] RN Member Role: Primary Care Nurse Name: Ta Alanis RN Position: [facility] RN Member Role: Primary Care Nurse [facility] Attending Position: [facility] ED Attendings Patient Name: Gera Jain MD Position: [facility] ED Medicine MD Member Role: Admitting Physician Address: Address: [address] [facility] [place] [address]- Name: Daly Yan RN Position: [facility] ED RN W/OE and Tasks Member Role: Patient Care Provider Name: Yeyo Mckay Position: [facility] ED TA [facility] Care Team Related Persons Name: VIANNEY JONES Address: home [address] [place] [address] Name: HARRY CORRALES Address: home [address] [place] [address] Name: CHERYL CHEN Address: home [address] [place] [address] Name: MICHELLE BERRY Address: home [address] [facility], [facility]
--- OUTSIDE RECORDS SUMMARY | 2023-09-30 20:28 | XMS_ITS | Continuity of Care Document ---
Author Organization [facility] Infectious Disease Address [address] [place] [id number]- Care Team Providers Care Amphibian Crewmember Name Role Phone Jaison RAJPUT, Asma Primary Care Physician Encounter [facility] Date(s): 11/16/21 - 12/16/21 [facility] [address] [place] [id number] Attending Physician: Cornelius Barlow Admitting Physician: AdmtrCornelius Referring Physician: Admtr, Jose Cruz8 Allergies, Adverse Reactions, Alerts No Known Allergies [...] opioid drug. Start Date: 10/03/21 Status: Ordered haloperidol decanoate 100 mg/ml injectable solution = 100 mg, Intramuscular, Once, 0 Refills, Maintenance, 10/03/21 10:48:00 EDT, Solution, Partial fill upon patient request if the prescription is for a schedule II opioid drug. Start Date: 10/03/21 Status: Ordered Heplisav-B 20 mcg/0.5 mL intramuscular solution 0.5 mL = 20 mcg, Intramuscular, Once, # 0.5 mL, 0 Refills, Soft Stop, 02/07/18 9:15:00 EDT Start Date: 02/07/18 Status: Ordered hydrochlorothiazide 12.5 mg oral tablet 1 tablet = 12.5 mg, By Mouth, Daily, # 30 tablet, 0 Refills, Maintenance, 10/03/21 10:48:00 EDT, Tablet, Partial fill upon patient request if the prescription is for a schedule II opioid drug. Start Date: 10/03/21 Status: Ordered mirtazapine 7.5 mg oral tablet 1 tablet = 7.5 mg, By Mouth, Daily at bedtime, # 30 tablet, 0 Refills, Maintenance, 07/18/15 17:09:12, Tablet, 1 tablet By Mouth Daily at bedtime,x30 days Start Date: 07/18/15 Stop Date: 08/17/15 Status: Ordered Odefsey oral tablet 1 tablet, By Mouth, Daily, # 30 tablet, 0 Refills, Maintenance, 10/03/21 10:47:00 EDT, Tablet, Partial fill upon patient request if the prescription is for a schedule II opioid drug. Start Date: 10/03/21 Status: Ordered olanzapine 20 mg oral tablet, disintegrating 1 tablet = 20 mg, By Mouth, Daily, Give in AM on , , , , and Fridays, # 22 tablet, 0 Refills,Maintenance, 07/18/15 17:11:12, please fill 2 zyprexa Rx - one for adult daycare during the week, and one for home on weekends., 1 tablet By Mouth Tamir... Start Date: 07/18/15 Status: Ordered Vitamin D 37920 iu oral capsule 1, capsule, By Mouth, Every week, # 4 capsule, Refills 0, Maintenance, 10/03/21 10:49:00 EDT, Partial fill upon patient request if the prescription is for a schedule II opioid drug. Start Date: 10/03/21 Status: Ordered ZyPREXA Zydis 20 mg oral [...] Active Underweight(Confirmed) Active Hepatitis C virus(Confirmed) Active Social History Social History Type Response Smoking Status Former smoker; Tobac co user in household: No entered on: 02/06/18 Sex
--- OUTSIDE RECORDS SUMMARY | 2023-09-30 20:28 | XMS_ITS | Continuity of Care Document ---
Author Organization [facility] ter Address [address] [place] [id number]- Care Team Providers Care Manager Net Name Role Phone Jaison RAJPUT, Asma Primary Care Physician [phone] Encounter [facility] [place] Date(s): 03/21/23 - 03/24/[address] [address]- Discharge Disposition: A-D/C Home Attending Physician: Isai Villalta MD Admitting Physician: Aye Holly MD Referring Physician: Not on Staff, Referring [...] Start Date: 03/21/23 Status: Ordered divalproex sodium 250 mg oral [...] 13:00:00 EDT Start Date: 01/04/22 Status: Ordered Tylenol 325 mg oral tablet [...] Results Orders for Microbiology Reports Name Date Urine Culture (Culture Urine) 03/22/23 Blood Culture 03/21/23 Blood Culture #2 03/21/23 Microbiology Reports TEST:Urine Culture STATUS:Unauthenticated BODY SITE: SOURCE:URINE COLLECTED DATE/TIME:03/22/23 2:00 AM Urine Culture SPECIMEN DESCRIPTION : URINE STRAIGHT CATH. SPECIAL REQUESTS : NONE CULTURE : NO GROWTH TO DATE REPORT STATUS : PRELIMINARY REPORT TEST:Blood Culture STATUS:Unauthenticated BODY SITE: SOURCE:Blood COLLECTED DATE/TIME:03/21/23 3:15 PM Blood Culture SPECIMEN DESCRIPTION : BLOOD RIGHT SPECIAL REQUESTS : NONE CULTURE : NO GROWTH 3 DAYS REPORT STATUS : PRELIMINARY REPORT TEST:Blood Culture, Second Order STATUS:Unauthenticated BODY SITE: SOURCE:Blood COLLECTED DATE/TIME:03/21/23 3:15 PM Blood Culture, Second Order SPECIMEN DESCRIPTION : BLOOD LEFT SPECIAL REQUESTS : NONE CULTURE : NO GROWTH 3 DAYS REPORT STATUS : PRELIMINARY REPORT Radiology Reports * Exam Date Time Procedure Performing Provider Status 03/21/23 12:[address] Abd/Pelvis W/ IV Contrast Only Sofy Cloud; Auth (Verified) Notes: (CT Abd/Pelvis W/ IV Contrast Only) Reason For Exam: LLQ abd pain;Other: RESULT: CT Abd/Pelvis W/ IV Contrast Only CT Abd/Pelvis W/ IV Contrast Only Hx of Present Illness: abd pain, from assisted living. Reports abd pain and nausea x 2 days, however no abd pain since this morning. Staff also reports not eating or drinking; Reason: Other:; LLQ abdpain; Clinical Question(s): Obstruction; Order Comment: TECHNIQUE: Spiral CT through the abdomen and pelvis with IV contrast formatted in 3 planes. 75 cc of Omnipaque 300 was administered intravenously. This study was performed without oral contrast. Weight-based protocol using automatic tube modulation was used to optimize exposure parameters. CTDIvol Body: 8.70 mGy, DLP Body: 481 mGy*cm. COMPARISON: None. FINDINGS: Production Line View Findings, Lines and Tubes: None. Visualized Chest: Bibasilar atelectasis. Mild centrilobular emphysematous changes.. No pleural effusion. The heart is normal in size. No pericardial effusion. Diaphragm: Normal. Liver: Normal. Gallbladder: There is a stone within the dependent portion of the gallbladder. Bile ducts: No biliary ductal dilation. Spleen: Normal. Pancreas: Normal. Adrenal glands: There is a small cystic area within the right adrenal gland left adrenal gland is unremarkable.. Kidneys and ureters: No hydronephrosis, stones, or suspicious masses. Bladder: Normal. Reproductive organs: Multiple coarse calcifications within the prostate. Stomach, small bowel, and large bowel: The stomach is markedly distended with gas and fluid. There are fluid-filled loops of small bowel extending into the rectum. Appendix: Normal. Peritoneum and retroperitoneum: No ascites or pneumoperitoneum. No omental or mesenteric lesions. Lymph nodes: No enlarged lymph nodes. Blood vessels: Normal. No aneurysm. No evidence of venous thrombosis. Abdominal and pelvic wall: Unremarkable. Bones: No acute abnormality. IMPRESSION: Findings are concerning for gastroenteritis. Cholelithiasis. Small cystic area within the right adrenal gland possibly due to previous hematoma. An actionable message ([place]) has been communicated via the localbacon system on 03/21/2023 1:38 PM, Message ID [id number]. WSN: [id number] Ordering Physician: Ariela Sheehan Dictated By: Lore Faith MD Dictated Date/Time: 03/21/23 1:39 pm Reviewed By: Lore Faith MD Signed By: Lore Faith MD Signed Date/Time: 03/21/23 1:39 pm Transcribed By: YAHAIRA Transcribed Date/Time: 03/21/23 1:23 pm * Exam Date Time Procedure Performing Provider Status 03/21/23 12:58 PM Chest 2 Views Frontal and Lat Jeniffer z , Jessica; Auth (Verified) Notes: (Chest 2 Views Frontal and Lat) Reason For Exam: Shortness of Breath RESULT: Chest 2 Views Frontal and Lat Chest 2 Views Frontal and Lat Hx of Present Illness: abd pain, from assisted living. reports abd pain and nausea x 2 days, however no abd pain since this morning. Staff also reports not eating or drinking; Reason: Shortness of Breath; Clinical Question(s): CHF. COMPARISON: 01/22/2022, 01/20/2010. FINDINGS: LINES AND TUBES: Endotracheal tube and enteric tube have been removed since the prior examination. LUNGS AND PLEURA: Low lung volumes with mild bibasilar atelectasis. Mild bilateral neural lobe predominant emphysematous change. No focal consolidation. No pleural effusion. No pneumothorax. HEART, MEDIASTINUM AND SHAHLA: Heart is normal in size. Normal mediastinal and hilar contour. BONES AND SOFT TISSUES: No acute osseous abnormality. The stomach is moderately distended with air. IMPRESSION: No acute cardiopulmonary process. I have personally reviewed the images and I agree with this report. WSN: [id number] Ordering Physician: Ariela Sheehan Dictated By: Rl Harry MD Dictated Date/Time: 03/21/23 1:42 pm Reviewed By: Deepak Caldwell MD, V Signed By: Deepak Caldwell MD, V Signed Date/Time: 03/21/23 1:47 pm Transcribed By: YAHAIRA Transcribed Date/Time: 03/21/23 1:22 pm Vital Signs Most recent to oldest [Reference Range]: 1 2 3 Height 176 cm (03/24/23 3:52 AM) 176 cm (03/23/23 7:52 PM) 176 cm (03/23/23 3:31 AM) Weight 51.3 kg (03/22/23 8:08 PM) Oxygen Saturation [94-100 %] 98 % (03/24/23 7:00 AM) 99 % (03/24/23 3:52 AM) 97 % (03/23/23 7:52 PM) Pulse Rate [55-90 bpm] 84 bpm (03/24/23 7:00 AM) 85 bpm (03/24/23 3:52 AM) 94 bpm *H* (03/23/23 7:52 PM) Body Mass Index [18.5-24.99 kg/m2] 16.56 kg/m2 *L* (03/22/23 8:08 PM) Blood Pressure [90-138/55-84 mm Hg] 126/86mm Hg (03/24/23 7:00 AM) 134/81mm Hg (03/24/23 3:52 AM) 124/71mm Hg (03/23/23 7:52 PM) Respiratory Rate [16-30 br/min] 18 br/min (03/24/23 7:00 AM) 18 br/min (03/24/23 3:52 AM) 18 br/min (03/23/23 7:52 PM) Temperature [96.8-100.4 DegF] 98.9 DegF (03/24/23 7:00 AM) 98.1 DegF (03/24/23 3:52 AM) 97.5 DegF (03/23/23 7:52 PM) Mode of Delivery (Oxygen) Room air (03/24/23 7:00 AM) Room air (03/24/23 3:52 AM) Room air (03/23/23 7:52 PM) Blood pressure sites Arm, right (03/24/23 7:00 AM) Arm, right (03/24/23 3:52 AM) Arm, right (03/23/23 7:52 PM) Temperature Route Oral (03/24/23 7:00 AM) Oral (03/24/23 3:52 AM) Oral (03/23/23 7:52 PM) Dry Weight 51.3 kg (03/22/23 8:08 PM) Weight Obtained Via Bed scale (03/22/23 8:08 PM) Dry Weight Obtained Via Bed scale (03/22/23 8:08 PM) Social History Social History Type Response Smoking Status Former smoker; Tobac co user in household: No entered on: 02/06/18 Sex History and physical note * Jeremy Emerson DO: PERFORM, MODIFY, MODIFY Event Display: History and Physical Hospital Authored Date: [id number] Patient: ??GUESS, ABIDA ? Age:??67 Years?Sex:??Male?:??1955?? Chief Complaint/Reason for Consultation staff called for 24hr lower abd pain, not eating or drinking, weakness and tachycardia. not taking meds x 1 day d/t nausea. no IV History of Present Illness This is a 67-year-old male??with past medical history including??HIV,??HIV related dementia,??untreated hepatitis C virus,??and schizoaffective disorder,??who currently presents to the hospital with??complaint of abdominal pain, along with nausea, vomiting, and diarrheafor the past 3 days.?? Per the ED note, the patient lives at a half-way and his staff there reported that he has become increasingly more paranoid, and has been refusing to take p.o. (patient concerned that the water at his half-way is poisoned).?? In the ED, he was noted to be tachycardic with a heart rate in the 110s to 120s.?? He was afebrile.?? White blood cell count was elevated at 17.3 and hemoglobin was noted to be19.8.?? Other labs were notable for a high chloride of 112 with a low bicarb of 11 and an anion gapof 19 with a BUN of 46 and creatinine of 1.3.?? Patient's baseline creatinine and BUN are normal.??Calcium was low at 8.2.?? Patient's lactate was 3.1 and subsequently 3.3..?? LFTs were noted to be n ormal.?? The patient did undergo portable chest x-ray in the ED that showed no acute abnormality.??CT scan of the abdomen and pelvis was also obtained that showed findings concerning for gastroenteritis (markedly distended stomach shows gas and fluid-filled and some fluid-filled loops of small bowel) and evidence of cholelithiasis.?? A small cystic area was noted within the right adrenal gland, possibly due to prior hemorrhage.The patient reports some left-sided abdominal discomfort Review of Systems A complete review of systems was obtained and noted to be negative except as stated above in the HPI.Patient noted to be a vague historian. Objective ? Vital Signs?? Temperature: 97.8 DegF (03/22/23 00:20:00) Temperature Route: Oral (03/22/23 00:20:00) Pulse Rate:??114 bpm??High (03/22/23 00:20:00) Respiratory Rate:??15 br/min??Low (03/22/23 00:20:00) Systolic Blood Pressure: 127 mm Hg (03/22/23 00:20:00) Diastolic Blood Pressure:??91 mm Hg??High (03/22/23 00:20:00) Blood pressure sites: Arm, left (03/22/23 00:20:00) Mean Arterial Pressure: 103 mm Hg (03/22/23 00:20:00) Pulse Pressure: 36 mm Hg (03/22/23 00:20:00) Oxygen Saturation: 100 % (03/22/23 00:20:00) Mode of Delivery (Oxygen): Room air (03/22/23 00:20:00) Early Warning Score:??10??Critical (03/22/23 00:20:35) ? Physical Exam General: Alert, in no acute cardiopulmonary distress. Mental Status: Oriented to person, place and time. Normal affect. Head: Normocephalic. Eyes: Pupils are equal, round and reactive to light. Extraocular muscles intact. Ear, Nose and Throat: Oropharynx clear, mucous membranes moist. Ears and nose without masses, lesions or deformities. Trachea midline. Neck: Supple, Full range of motion. Respiratory: Clear to auscultation and percussion. No wheezing, rales or rhonchi. Cardiovascular: Heart sounds normal. Regular rate and rhythm, no murmurs, rubs or gallops. Gastrointestinal: Abdomen soft, mild tenderness to palpation on the left side??of the abdomen, non-distended. Normal bowel sounds. No pulsatile mass. No hepatosplenomegaly. Neurologic: Cranial nerves II-XII grossly intact. No focal neurological deficits. Moves all extremities spontaneously. Sensation intact bilaterally. Skin: No rashes or lesions. No petechiae or purpura. No edema. Musculoskeletal: No cyanosis or clubbing. No gross deformities. Normal range of motion. Assessment/Plan Assessment:??This is a 67-year-old male with past medical history as noted above, who currently presents to the hospital from his half-way after he was noted to have nausea, vomiting, and diarrhea for the past 3 days, with some associated left-sided abdominal discomfort. He did undergo CT imaginghere that showed evidence of gastroenteritis. ?? Abdominal pain (R10.9)?? Leukocytosis (D72.829)?? Diarrhea (R19.7) Nausea and vomiting (R11.2)?? Gastroenteritis (K52.9) This patient will be admitted to an inpatient medical bed.??He presents with abdominal pain, nausea, vomiting, and diarrhea.??CT scan of the abdomen did show??findings suggestive of gastroenteritis.??The patient is also noted to have an elevated white blood cell count??on his lab work. For now,??wewill obtain??stool studies for C. difficile as well as??stool GI profile PCR.??He did receive a dose of??Flagyl and??ceftriaxone in the ED. We will hold off on further antibiotics presently??given that his??symptoms are most likely??a viral etiology, but will await stool studies as well., ?? ZAK (acute kidney injury) (N17.9) Patient's creatinine noted to be elevated,??likely prerenal??in the setting of underlying??diarrhea.??Patient will receive IV fluid hydration and we will follow??kidney function daily. ?? Metabolic acidosis (E87.20) Hyperchloremic metabolic acidosis (E87.29) Patient noted to have metabolic acidosis low bicarb level,??likely in the setting of underlying diarrhea.??We will hydrate and follow labs closely. ?? HIV disease (B20) Patient maintained on??Odefsey which we will continue. ?? Schizoaffective disorder (F25.9): We will continue patient on his??home Depakote, mirtazapine, and olanzapine. ?? VTE Prophylaxis. We will encourage early mobilization ?? Code Status Patient is a full code ?? Patient seen on March 21, 2023.?? Total time spent with patient and in coordination of care: including reviewing the chart/medical records, speaking with the patient, formulating and discussing the treatment plan, and documenting the findings and encounter: ??70 + min ? Histories Allergies Allergies ?(Active and Proposed Allergies Only) NKA? (Severity: Unknown severity, Onset: Unknown) ? Past Medical History/Problem List Active Problems??(5) Hepatitis C virus HIV dementia HIV disease Iatrogenic hypotension Underweight ? Past Surgical History Patient denies ? Social History Patient reportedly lives in a half-way??(when questioned, he reports that he lives with his ) Alcohol Details:??Use: Never. Substance Abuse Details:??Use: Never. Tobacco Details:??Former smoker,??1/3 pack per day for 10 years and quit several years ago ?? Family medical??history Patient reports that both his parents are living and healthy,??but??unclear if this is accurate or not Medications Home Medications Acetaminophen (Tylenol 325 mg oral tablet)?650?Milligram?2?tablet?By Mouth?Every 6 hours?as needed?Mild Pain/Fever Albuterol (albuterol 90 mcg/inh inhalation powder)?2?puff(s)?Inhalation?Every 4 hours?as needed?Wheezing/Shortness of Breath Divalproex Sodium (divalproex sodium 250 mg oral enteric coated tablet)?1?tab(s)?250?Milligram?By Mouth?Daily emtricitabine/rilpivirine/tenofovir (Odefsey oral tablet)?1?tab(s)?By Mouth?Daily Haloperidol (haloperidol decanoate 100 mg/ml injectable solution)?1?Milliliter?100?Milligram?Intramuscular?Every 28 days levETIRAcetam (Keppra XR 500 mg oral tablet, extended release)?2?tab(s)?1,000?Milligram?By Mouth?2 times a day Mirtazapine (mirtazapine 15 mg oral tablet, disintegrating)?1?tab(s)?15?Milligram?ByMouth?Daily at bedtime Olanzapine (olanzapine 15 mg oral tablet, disintegrating)?1?tab(s)?15?Milligram?By Mouth?Daily Polyethylene Glycol 3350 (MiraLax oral powder for reconstitution)?17?gram?By Mouth?Daily?as needed?Constipation Thiamine (Vitamin B1 100 mg oral tablet)?100?Milligram?1?tablet?By Mouth?Daily ? Results Recent Labs BLOOD COUNT & DIFF WBC 17.3 k/mm3 (High)?? 03/21/2023 12:12 RBC 6.58 m/mm3 (High)?? 03/21/2023 12:12 Hgb 19.8 Gm/dL (High)?? 03/21/2023 12:12 Hct 59.5 % (High)?? 03/21/2023 12:12 MCV 90.4 femtoliters ()?? 03/21/2023 12:12 MCH 30.1 pg ()?? 03/21/2023 12:12 MCHC 33.3 g/dL ()?? 03/21/2023 12:12 Platelet Count 264 k/mm3 ()?? 03/21/2023 12:12 RDW-SD 44.2 femtoliters ()?? 03/21/2023 12:12 MPV 9.6 femtoliters ()?? 03/21/2023 12:12 Nucleated RBC (Automated) 0.0 #/100 WBC'S ()?? 03/21/2023 12:12 Abs. NRBC 0.0 k/mm3 ()?? 03/21/2023 12:12 Abs. Neut 8.3 k/mm3 (High)?? 03/21/2023 12:12 Abs. Lymph 5.7 k/mm3 (High)?? 03/21/2023 12:12 Abs. [place] 0.4 k/mm3 ()?? 03/21/2023 12:12 Abs. Eo 2.2 k/mm3 (High)?? 03/21/2023 12:12 Abs. Baso 0.0 k/mm3 ()?? 03/21/2023 12:12 Neut % 34.0 % (Low)?? 03/21/2023 12:12 Lymph % 30.0 % ()?? 03/21/2023 12:12 [place] % 2.0 % (Low)?? 03/21/2023 12:12 Eos % 13.0 % (High)?? 03/21/2023 12:12 Baso % 0.0 % ()?? 03/21/2023 12:12 Promyelocyte % 1.0 % ()?? 03/21/2023 12:12 Metamyelocyte % 3.0 % (High)?? 03/21/2023 12:12 Band % 14.0 % (High)?? 03/21/2023 12:12 Atypical Lymph % 3.0 % ()?? 03/21/2023 12:12 WBC Morphology FEW ()?? 03/21/2023 12:12 Platelet Estimate ADEQUATE ()?? 03/21/2023 12:12 ?? CARDIAC High Sensitivity Troponin (HSTnT) 7 ng/L ()?? 03/21/2023 12:12 ?? CHEM GENERAL Sodium 142 mmol/L ()?? 03/21/2023 15:15 Potassium HEMOLYZED mmol/L ()?? 03/21/2023 15:15 Chloride 112 mmol/L (High)?? 03/21/2023 15:15 Bicarbonate Level 11 mmol/L (Low)?? 03/21/2023 15:15 Anion Gap 19 (High)?? 03/21/2023 15:15 Glucose Level 148 mg/dL (High)?? 03/21/2023 15:15 BUN 46 mg/dL (High)?? 03/21/2023 15:15 Creatinine-Blood 1.3 mg/dL (High)?? 03/21/2023 15:15 Estimated GFR Creatinine 63 ML/MIN/1.73 M2 ()?? 03/21/2023 15:15 Calcium 8.2 mg/dL (Low)?? 03/21/2023 15:15 Protein, Total 8.5 Gm/dL (High)?? 03/21/2023 15:15 Albumin 3.6 Gm/dL ()?? 03/21/2023 15:15 AG Ratio 0.7 ()?? 03/21/2023 15:15 Alkaline Phosphatase 90 units/L ()?? 03/21/2023 15:15 Lipase 19 units/L ()?? 03/21/2023 12:12 AST (SGOT) 23 units/L ()?? 03/21/2023 15:15 ALT (SGPT) 21 units/L ()?? 03/21/2023 15:15 Bilirubin, Total 0.6 mg/dL ()?? 03/21/2023 15:15 Lactate 3.3 mmol/L (High)?? 03/21/2023 15:15 ?(03/21/2023 12:58 EST Chest 2 Views Frontal and Lat) IMPRESSION: ?? No acute cardiopulmonary process. [1] ? (03/21/2023 12:[address] Abd/Pelvis W/ IV Contrast Only) IMPRESSION:? Findings are concerning for gastroenteritis. ?? Cholelithiasis. ?? Small cystic area within the right adrenal gland possibly due to previous hematoma. [2] [1]??Chest 2 Views Frontal and Lat; Paulette RAJPUT, Deepak Fregoso 03/21/2023 12:58 EST [2]??CT Abd/Pelvis W/ IV Contrast Only; Marcell RAJPUT, Nedradunnellonteddy 03/21/2023 12:49 EST EKG study * Event Display: EKG Authored Date: Hospital Progress note * Jose Daniel POWER, Nakia: PERFORM, SIGN, VERIFY Event Display: Progress Note Hospital Authored Date: Patient: ABIDA FERRARI Age: 67 years Sex: Male : 1955 Associated Diagnoses: None Author: Jose Daniel POWER, Nakia Findings Problem Related to Alteration in Comfort : Alteration in Comfort/new 03/24/2023 10:00 EST Alteration in Comfort Related to Disease process Goals & Outcomes: Comfort Pt will report acceptable level of comfort & pain control, Pt will state importance of adhering to pain strategy regime, Pt will demonstrate necessary skills to manage pain, Non-verbal indicators will indicate comfort/pain control Interventions Implemented: Comfort Assess pain using appropriate pain scale/tools, Assess aggravating factors & prevent them accordingly, Assess alleviating factors & promote them accordingly BH Goals/Interventions, Comfort Yes Comfort, Problem Start 03/24/2023 4:16 Reviewed plan with, Comfort Patient Patient Progression, Comfort Pt progressing according to plan Comfort, Problem Ongoing Yes . Narrative/Incidental Patient A+Ox2-3. Patient resting with eyes closed most of morning. Denies pain, N/V, dizziness, SOB. Toleratinmg diet and fluids without issue. Ambulating with stand by assist to the bathroom. Voiding without issue. Patient dischring home via [facility] at 11am. Discharge teaching and paperwork completedwith pateint at bedside, verbalized understanding. IV removed prior to discharge without issue. Patient transported to [facility] via w/c to meet [facility]. . * Ava Campos RN: PERFORM, SIGN, VERIFY Event Display: Progress Note Hospital Authored Date: Patient: ABIDA FERRARI Age: 67 years Sex: Male : 1955 Associated Diagnoses: None Author: Ava Campos RN Findings Problem Related to Alteration in Comfort : Alteration in Comfort/new 03/24/2023 4:00 EST Alteration in Comfort Related to Disease process Goals & Outcomes: Comfort Pt will report acceptable level of comfort & pain control, Pt will state importance of adhering to pain strategy regime, Pt will demonstrate necessary skills to manage pain, Non-verbal indicators will indicate comfort/pain control Interventions Implemented: Comfort Assess pain using appropriate pain scale/tools, Assess aggravating factors & prevent them accordingly, Assess alleviating factors & promote them accordingly BH Goals/Interventions, Comfort Yes Comfort, Problem Start 03/24/2023 4:16 Reviewed plan with, Comfort Patient Patient Progression, Comfort Plan Initiation Comfort, Problem Ongoing Yes . Evaluation Patient A&Ox3. No c/o pain overnight. Skin is intact. Clear lung sounds on room air. Continent of bowel and bladder, ambulates to bathroom with supervision only. Patient scheduled to be d/c'd, however, patient unable to be transported by [facility] due to missing medical necessity form , clinical educator was contacted for further instructions, however, form was unable to be located, covering provider Arik Garcia notified with no further instructions or orders and for this reason patient was not discharged, weekend case coordinator to follow up in planning of discharge in AM. Patient able to make needs known, call dubose within reach, Hourly rounding done. * Ava Campos RN: PERFORM, SIGN, VERIFY Event Display: Progress Note Hospital Authored Date: Patient: ABIDA FERRARI Age: 67 years Sex: Male : 1955 Associated Diagnoses: None Author: Andres POWER, Ava Findings Problem Related to Alteration in Immunologic : Alteration in Immunologic Function/new 03/23/2023 3:00 EST Alteration Immunologic Status Related to Sepsis Goals & Outcomes, Immunologic Pt will maintain/resume normal fluid/electrolyte balance, Pt willmaintain intact skin integrity, Pt will not develop complications r/t immobility, Inflammatory/infectious process will resolve, Pt will show proper technique wth self care procedures Interventions, Immunologic Monitor response to fluid replacement, Maintain patent IV access, Monitor Intake & Output, Maintain and monitor nutritional intake, Assess skin integrity, Provide non pharmocologic comfort measures BH Goals/Interventions, Immunologic Yes Immunologic, Problem Start 03/23/2023 3:18 Reviewed Plan with, Immunologic Patient Patient Progression, Immunologic Status Plan Initiation . Evaluation Patient arrived to unit at 2030 via stretcher from ED, patient was then slid onto bed with staff assistance. Patient A&Ox2. No c/o pain overnight. Skin is intact. Clear lung sounds, on room air. Incontient of bowel and bladder, kev care done appropriately. Will continue to monitor for diarrhea. Bed alarm on for safety, call dubose within reach, hourly rounding done. Note * Nakia Sky RN: PERFORM Event Display: Discharge/Transfer Note Hospital Authored Date: Nursing Discharge Note Entered On: 03/24/2023 14:12 EST Performed On: 03/24/2023 14:11 EST by Nakia Sky RN Nursing Discharge Note 2 Discharge Time : 03/24/2023 13:56 EST Discharge Level of Care at Discharge : Home/Fdc/Foster Care Patient Left Unit Via : Wheelchair Patient Accompanied Off Unit with : Responsible adult DC Instructions Provided & Signed by Pt : Yes Patient Understands D/C Instructions : Yes Patient Instructions Discharge Signed : Yes Did Pt have Specialty Bed or Wound Vac : No Nakia Sky RN - 03/24/2023 14:11 EST * Isai Villalta MD: PERFORM, MODIFY, MODIFY Event Display: Discharge/Transfer Note Hospital Authored Date: [id number] Patient: ??GUESS, ABIDA ? Age:??67 Years?Sex:??Male?:??1955?? Patient Information Discharge Location: Primary Care Physician: Nimesh Blackwood MD Admit Date/Time: 03/21/23 15:17 Discharge Disposition Discharge Disposition: Home: No Services Discharge Diagnosis Viral gastroenteritis (A08.4) HIV disease (B20) HIV dementia (B20) Acute kidney injury (N17.9) Severe sepsis with acute organ dysfunction (R65.20) High anion gap metabolic acidosis (E87.29) Schizoaffective disorder (F25.9) Chronic hepatitis C (B18.2) ?? _ Discharge Medications Acetaminophen (Tylenol 325 mg oral tablet)?650?Milligram?2?tablet?By Mouth?Every 6 hours?as needed?Mild Pain/Fever Albuterol (albuterol 90 mcg/inh inhalation powder)?2?puff(s)?Inhalation?Every 4 hours?as needed?Wheezing/Shortness of Breath Divalproex Sodium (divalproex sodium 250 mg oral enteric coated tablet)?1?tab(s)?250?Milligram?By Mouth?Daily emtricitabine/rilpivirine/tenofovir (Odefsey oral tablet)?1?tab(s)?By Mouth?Daily Haloperidol (haloperidol decanoate 100 mg/ml injectable solution)?1?Milliliter?100?Milligram?Intramuscular?Every 28 days levETIRAcetam (Keppra XR 500 mg oral tablet, extended release)?2?tab(s)?1,000?Milligram?By Mouth?2 times a day Mirtazapine (mirtazapine 15 mg oral tablet, disintegrating)?1?tab(s)?15?Milligram?ByMouth?Daily at bedtime Olanzapine (olanzapine 15 mg oral tablet, disintegrating)?1?tab(s)?15?Milligram?By Mouth?Daily Polyethylene Glycol 3350 (MiraLax oral powder for reconstitution)?17?gram?By Mouth?Daily?as needed?Constipation Thiamine (Vitamin B1 100 mg oral tablet)?100?Milligram?1?tablet?By Mouth?Daily ? Durable Medical Equipment Ambulatory devices needed: Cane (03/21/23) ? Medications Started N/A Medications Discontinued N/A Doses Changed N/A Future Appointments Saturday 10:00 AM EST ?? With: Fernandez Francis MD Where: [facility] [address] [place] [id number]- Status: Pending Hospital Course Patient was admitted for acute onset N/V, pain and diarrhea, with CT scan suggestive of gastroenteritis, labs upon admission showed significant hemo- concentration, ZAK and HAGMA, subsequently resolved with IVF. He received 1 dose of ceftriaxone, C.diff was tested negative. His symptoms improved rapidly and no diarrhea since early AM and able to tolerate regular diet, pain and N/V subsided, likelyacute infection such as viral, will discharge back to rest home, legal guardian was updated about plan of care. Will need outpatient HIV clinic follow up, and if diarrhea recur consider check GI PCR to rule out OI. ?? Patient was discharged on 03/23 PM, but unable to be discharged as one of the transportation paperwork was missing and [facility] refused to take the patient. No acute events overnight, patient remains hemodynamically stable this morning no complaints, denied diarrhea or other acute complaints. Discussed with floor staff about discharge plan. Medically ready?? still for discharge I have notified weekend team to resolve any potential issue should that arise today. Objective Assessment and Plan ?? Viral gastroenteritis (A08.4) Severe sepsis with acute organ dysfunction (R65.20) -acute onset GI symptoms with evidence of gastric distention and fluid-filled small intestines on CT upon admission, rapidly improving with 2 loose stool from last night and none since the beginning of the shift till now, able to tolerate regular diet, blood culture negative for 48 hours, C.diff test negative, unable to send GI PCR since no diarrhea present, most likely viral illness and resolving with supportive care -if diarrhea persists outpatient may considere recheck GI PCR? Acute kidney injury (N17.9) -pre-renal, resolved ?? High anion gap metabolic acidosis (E87.29) -a combination of lactate and possibly starvation ketosis, resolved ?? HIV disease (B20) HIV dementia (B20) Schizoaffective disorder (F25.9) Chronic hepatitis C (B18.2) -continue home meds, on Odefsy for HIV but with known non-compliant issue, recently re-established care with ID will follow up outpatient ?? Measurements?? Height: 176 cm (03/24/23) Weight: 51.3 kg (03/22/23) Dry Weight: 51.3 kg (03/22/23) Body Mass Index:??16.56 kg/m2??Low (03/22/23) ? Vital Signs?? Temperature: 98.9 DegF (03/24/23 07:00:00) Temperature Route: Oral (03/24/23 07:00:00) Pulse Rate: 84 bpm (03/24/23 07:00:00) Respiratory Rate: 18 br/min (03/24/23 07:00:00) Systolic Blood Pressure: 126 mm Hg (03/24/23 07:00:00) Diastolic Blood Pressure:??86 mm Hg??High (03/24/23 07:00:00) Blood pressure sites: Arm, right (03/24/23 07:00:00) Mean Arterial Pressure: 99 mm Hg (03/24/23 03:52:00) Pulse Pressure: 40 mm Hg (03/24/23 07:00:00) Oxygen Saturation: 98 % (03/24/23 07:00:00) Mode of Delivery (Oxygen): Room air (03/24/23 07:00:00) Early Warning Score: 0 (03/24/23 06:57:58) ? Basic ADLs Ambulatory devices needed: Cane (03/21/23) Feeding Assistance: Independent, Set up (03/23/23) Hygiene: Assist, Bath, Mouth care, Kev care, Tooth brushing (03/23/23) ? Mobility & Ambulation Level Mobility & Ambulation Level Ambulatory devices needed: Cane (03/21/23) ?? Therapeutic Activity Therapeutic Activities/Mobility/Balance?? No qualifying data available. ?? . Physical Exam Constitutional: Alert, in no acute distress. Head EENT: Extraocular muscle movement intact.??Moist mucous membranes.?? Respiratory: Clear to auscultation. No wheezing or crackles. No use of accessory muscles. Cardiovascular: S1S2 regular. No murmurs, rubs or gallops. Gastrointestinal: Abdomen soft, non-tender, non-distended. Normal bowel sounds. Extremities: No lower extremity pitting??edema. No cyanosis or clubbing. Neurologic: AAOx2-3, Speech normal. No focal neurological deficits. Psychiatric: Normal mood and affect Pending Results Blood Culture ordered on 03/21/2023 Blood Culture #2 ordered on 03/21/2023 Urine Culture ordered on 03/22/2023 Patient Education Titles Discharge Instructions for Acute Kidney Injury?? Viral Gastroenteritis?? Follow-Up Appointments Added Follow Up ?Time Frame ?Comments [facility] Patient Instructions You are admitted for??stomach upset and diarrhea, your CT scan in emergency room did not evidence of gastroenteritis, your conditions improved with supportive care and loose stool is slowing down;? You may resume a low fat diet and advance back to regular diet as tolerated over the next few days,if your appetite remains low, you may consider some protein supplements such as Ensure or Boost 1 bottle each meal, until your appetite is back to baseline;? Please follow up with primary care provider within 2-3 weeks to ensure recovery from acute illness.Additional stool and blood testing may be needed should you develop recurrent symptoms or more chronic diarrhea;? You may use acetaminophen up to 2000??mg over 24 hours for milder pain (do not exceed this limit toavoid life-threatening liver failure); Please avoid ibuprofen, naproxen, diclofenac or other itqn-bif-tcdowvd analgesics collectively called NSAIDs as these medications may trigger inflammation and ulcer in your stomach and intestines; ?? Return to nearest emergency room or call 911 if you experience fever T>100.4F, chill, chest painlasts longer than 10 minutes, shortness of breathing with minimal exertion, worsening or more constant abdominal pain, nausea/vomiting, food intolerance, bloody or tarry stool, extreme fatigue or dizziness, or other severe and/or persistent symptoms. Post Discharge Care Diet: ??Low Fat 50 Gram Non Cardiac Diet ?? Activity: ??Ambulate with assistance 3 times a day unless otherwise specified ?? Code Status: ??Full Resuscitation ?? Condition: ??Stable ?? Prognosis: ??Fair ?? Discharge ?03/23/23 17:14:00 EST Discharge Prescriptions ?None, 03/23/23 17:14:00 EST Home Health Face to Face ^HomeHealthFTF Results Discharge Labs BLOOD COUNT & DIFF WBC 12.4 k/mm3 (High)?? 03/23/2023 00:03 RBC 4.71 m/mm3 ()?? 03/23/2023 00:03 Hgb 13.6 Gm/dL (Low)?? 03/23/2023 00:03 Hct 42.8 % ()?? 03/23/2023 00:03 MCV 90.9 femtoliters ()?? 03/23/2023 00:03 MCH 28.9 pg ()?? 03/23/2023 00:03 MCHC 31.8 g/dL (Low)?? 03/23/2023 00:03 Platelet Count 187 k/mm3 ()?? 03/23/2023 00:03 RDW-SD 45.1 femtoliters ()?? 03/23/2023 00:03 MPV 9.6 femtoliters ()?? 03/23/2023 00:03 Nucleated RBC (Automated) 0.0 #/100 WBC'S ()?? 03/23/2023 00:03 Abs. NRBC 0.0 k/mm3 ()?? 03/23/2023 00:03 Abs. Neut 6.3 k/mm3 ()?? 03/22/2023 07:41 Abs. Lymph 7.9 k/mm3 (High)?? 03/22/2023 07:41 Abs. [place] 0.7 k/mm3 ()?? 03/22/2023 07:41 Abs. Eo 2.6 k/mm3 (High)?? 03/22/2023 07:41 Abs. Baso 0.0 k/mm3 ()?? 03/22/2023 07:41 Neut % 33.0 % (Low)?? 03/22/2023 07:41 Lymph % 45.0 % (High)?? 03/22/2023 07:41 [place] % 4.0 % (Low)?? 03/22/2023 07:41 Eos % 15.0 % (High)?? 03/22/2023 07:41 Baso % 0.0 % ()?? 03/22/2023 07:41 Promyelocyte % 1.0 % ()?? 03/21/2023 12:12 Metamyelocyte % 3.0 % (High)?? 03/21/2023 12:12 Band % 3.0 % ()?? 03/22/2023 07:41 Atypical Lymph % 3.0 % ()?? 03/21/2023 12:12 WBC Morphology FEW ()?? 03/22/2023 07:41 Platelet Estimate ADEQUATE ()?? 03/22/2023 07:41 ?? CARDIAC High Sensitivity Troponin (HSTnT) 7 ng/L ()?? 03/21/2023 12:12 ? CHEM GENERAL Sodium 143 mmol/L ()?? 03/23/2023 00:03 Potassium 3.6 mmol/L ()?? 03/23/2023 00:03 Chloride 110 mmol/L (High)?? 03/23/2023 00:03 Bicarbonate Level 23 mmol/L ()?? 03/23/2023 00:03 Anion Gap 10 ()?? 03/23/2023 00:03 Glucose Level 106 mg/dL (High)?? 03/23/2023 00:03 BUN 15 mg/dL ()?? 03/23/2023 00:03 Creatinine-Blood 0.7 mg/dL ()?? 03/23/2023 00:03 Estimated GFR Creatinine 101 ML/MIN/1.73 M2 ()?? 03/23/2023 00:03 Calcium 7.9 mg/dL (Low)?? 03/23/2023 00:03 Protein, Total 6.4 Gm/dL ()?? 03/22/2023 07:41 Albumin 2.9 Gm/dL (Low)?? 03/22/2023 07:41 AG Ratio 0.7 ()?? 03/21/2023 15:15 Alkaline Phosphatase 67 units/L ()?? 03/22/2023 07:41 Lipase 19 units/L ()?? 03/21/2023 12:12 AST (SGOT) 13 units/L ()?? 03/22/2023 07:41 ALT (SGPT) 17 units/L ()?? 03/22/2023 07:41 Bilirubin, Total 0.5 mg/dL ()?? 03/22/2023 07:41 Bilirubin, Direct 0.3 mg/dL ()?? 03/22/2023 07:41 Bilirubin, Indirect 0.2 mg/dL ()?? 03/22/2023 07:41 Lactate 1.3 mmol/L ()?? 03/22/2023 07:41 ? SEROLOGY INF DISEASE C.difficile Toxin Negative. C.Difficile bacterial antigen and toxin not detected. A (N)?? 03/22/2023 01:57 ? UA/URINALYSIS Appear/Color, Urine YELLOW ()?? 03/22/2023 02:00 Specific [place], Urine 1.033 (High)?? 03/22/2023 02:00 pH, Urine 6.0 ()?? 03/22/2023 02:00 Albumin, Urine 1+ (Abnormal)?? 03/22/2023 02:00 Glucose, Urine NEGATIVE ()?? 03/22/2023 02:00 Ketones, Urine NEGATIVE ()?? 03/22/2023 02:00 Bilirubin, Urine NEGATIVE ()?? 03/22/2023 02:00 Hemoglobin, Urine NEGATIVE ()?? 03/22/2023 02:00 Nitrite, Urine NEGATIVE ()?? 03/22/2023 02:00 Leukocyte, Urine NEGATIVE ()?? 03/22/2023 02:00 Urobilinogen NORMAL mg/dL ()?? 03/22/2023 02:00 WBC's, Urine 1 /HPF ()?? 03/22/2023 02:00 RBC's, Urine 1 /HPF ()?? 03/22/2023 02:00 Mucus SLIGHT /LPF ()?? 03/22/2023 02:00 ?? URINE OTHER Est Creatinine Clearance 73.29 mL/min ()?? 03/23/2023 01:06 ? 35??minutes spent on discharge * Ambar RAJPUT, Isai: PERFORM Event Display: Discharge/Transfer Note Hospital Authored Date: [id number] Patient: ??GUESS, ABIDA ? Age:??67 Years?Sex:??Male?:??1955?? Patient Information Discharge Location: Primary [facility] Phys[facility] Ad[facility] Date/Time: 03/21/23 15:17 Discharge Disposition Discharge Disposition: ??rest home Discharge Diagnosis Viral gastroenteritis (A08.4) HIV disease (B20) HIV dementia (B20) Acute kidney injury (N17.9) Severe sepsis with acute organ dysfunction (R65.20) High anion gap metabolic acidosis (E87.29) Schizoaffective disorder (F25.9) Chronic hepatitis C (B18.2) ?? _ Discharge Medications Acetaminophen (Tylenol 325 mg oral tablet)?650?Milligram?2?tablet?By Mouth?Every 6 hours?as needed?Mild Pain/Fever Albuterol (albuterol 90 mcg/inh inhalation powder)?2?puff(s)?Inhalation?Every 4 hours?as needed?Wheezing/Shortness of Breath Divalproex Sodium (divalproex sodium 250 mg oral enteric coated tablet)?1?tab(s)?250?Milligram?By Mouth?Daily emtricitabine/rilpivirine/tenofovir (Odefsey oral tablet)?1?tab(s)?By Mouth?Daily Haloperidol (haloperidol decanoate 100 mg/ml injectable solution)?1?Milliliter?100?Milligram?Intramuscular?Every 28 days levETIRAcetam (Keppra XR 500 mg oral tablet, extended release)?2?tab(s)?1,000?Milligram?By Mouth?2 times a day Mirtazapine (mirtazapine 15 mg oral tablet, disintegrating)?1?tab(s)?15?Milligram?ByMouth?Daily at bedtime Olanzapine (olanzapine 15 mg oral tablet, disintegrating)?1?tab(s)?15?Milligram?By Mouth?Daily Polyethylene Glycol 3350 (MiraLax oral powder for reconstitution)?17?gram?By Mouth?Daily?as needed?Constipation Thiamine (Vitamin B1 100 mg oral tablet)?100?Milligram?1?tablet?By Mouth?Daily ? Durable Medical Equipment Ambulatory devices needed: Abiele (03/21/23) ? Medications Started N/A Medications Discontinued N/A Doses Changed N/A Future Appointments Saturday 10:00 AM EST ?? With: Penny RAJPUT, Fernandez Sena Where: [facility] [address] [place] [id number]- Status: Pending Hospital Course Patient was admitted for acute onset N/V, pain and diarrhea, with CT scan suggestive of gastroenteritis, labs upon admission showed significant hemo- concentration, ZAK and HAGMA, subsequently resolved with IVF. He received 1 dose of ceftriaxone, C.diff was tested negative. His symptoms improved rapidly and no diarrhea since early AM and able to tolerate regular diet, pain and N/V subsided, likelyacute infection such as viral, will discharge back to rest home, legal guardian was updated about plan of care. Will need outpatient HIV clinic follow up, and if diarrhea recur consider check GI PCR to rule out OI. Objective Assessment and Plan ?? Viral gastroenteritis (A08.4) Severe sepsis with acute organ dysfunction (R65.20) -acute onset GI symptoms with evidence of gastric distention and fluid-filled small intestines on CT upon admission, rapidly improving with 2 loose stool from last night and none since the beginning of the shift till now, able to tolerate regular diet, blood culture negative for 48 hours, C.diff test negative, unable to send GI PCR since no diarrhea present, most likely viral illness and resolving with supportive care -if diarrhea persists outpatient may considere recheck GI PCR? Acute kidney injury (N17.9) -pre-renal, resolved ?? High anion gap metabolic acidosis (E87.29) -a combination of lactate and possibly starvation ketosis, resolved ?? HIV disease (B20) HIV dementia (B20) Schizoaffective disorder (F25.9) Chronic hepatitis C (B18.2) -continue home meds, on Odefsy for HIV but with known non-compliant issue, recently re-established care with ID will follow up outpatient ?? Measurements?? Height: 176 cm (03/23/23) Weight: 51.3 kg (03/22/23) Dry Weight: 51.3 kg (03/22/23) Body Mass Index:??16.56 kg/m2??Low (03/22/23) ? Vital Signs?? Temperature: 97.9 DegF (03/23/23 11:00:00) Temperature Route: Oral (03/23/23 11:00:00) Pulse Rate: 88 bpm (03/23/23 11:00:00) Respiratory Rate: 18 br/min (03/23/23 11:00:00) Systolic Blood Pressure: 127 mm Hg (03/23/23 11:00:00) Diastolic Blood Pressure: 83 mm Hg (03/23/23 11:00:00) Blood pressure sites: Arm, left (03/23/23 11:00:00) Mean Arterial Pressure: 79 mm Hg (03/23/23 03:31:00) Pulse Pressure: 44 mm Hg (03/23/23 11:00:00) Oxygen Saturation: 99 % (03/23/23 11:00:00) Mode of Delivery (Oxygen): Room air (03/23/23 11:00:00) Early Warning Score: 2 (03/23/23 11:03:25) ? Basic ADLs Ambulatory devices needed: Cane (03/21/23) Feeding Assistance: Independent, Set up (03/23/23) Hygiene: Assist, Bath, Mouth care, Kev care, Tooth brushing (03/23/23) ? Mobility & Ambulation Level Mobility & Ambulation Level Ambulatory devices needed: Cane (03/21/23) ?? Therapeutic Activity Therapeutic Activities/Mobility/Balance?? No qualifying data available. ?? . Physical Exam Constitutional: Alert, in no acute distress. Head EENT: Extraocular muscle movement intact.??Moist mucous membranes.?? Respiratory: Clear to auscultation. No wheezing or crackles. No use of accessory muscles. Cardiovascular: S1S2 regular. No murmurs, rubs or gallops. Gastrointestinal: Abdomen soft, non-tender, non-distended. Normal bowel sounds. Extremities: No lower extremity pitting??edema. No cyanosis or clubbing. Neurologic: AAOx3, Speech normal. No focal neurological deficits. Psychiatric: Normal mood and affect Pending Results Blood Culture ordered on 03/21/2023 Blood Culture #2 ordered on 03/21/2023 GI Profile, Stool, PCR ordered on 03/22/2023 Urinalysis w/hold for Urine Culture ordered on 03/21/2023 Urine Culture ordered on 03/22/2023 Patient Education Titles Discharge Instructions for Acute Kidney Injury?? Viral Gastroenteritis?? Follow-Up Appointments Added Follow Up ?Time Frame ?Comments [facility] Patient Instructions You are admitted for??stomach upset and diarrhea, your CT scan in emergency room did not evidence of gastroenteritis, your conditions improved with supportive care and loose stool is slowing down;? You may resume a low fat diet and advance back to regular diet as tolerated over the next few days,if your appetite remains low, you may consider some protein supplements such as Ensure or Boost 1 bottle each meal, until your appetite is back to baseline;? Please follow up with primary care provider within 2-3 weeks to ensure recovery from acute illness.Additional stool and blood testing may be needed should you develop recurrent symptoms or more chronic diarrhea;? You may use acetaminophen up to 2000??mg over 24 hours for milder pain (do not exceed this limit toavoid life-threatening liver failure); Please avoid ibuprofen, naproxen, diclofenac or other erdb-koc-sftyfoj analgesics collectively called NSAIDs as these medications may trigger inflammation and ulcer in your stomach and intestines; ?? Return to nearest emergency room or call 911 if you experience fever T>100.4F, chill, chest painlasts longer than 10 minutes, shortness of breathing with minimal exertion, worsening or more constant abdominal pain, nausea/vomiting, food intolerance, bloody or tarry stool, extreme fatigue or dizziness, or other severe and/or persistent symptoms. Post Discharge Care Diet: ??Low Fat 50 Gram Non Cardiac Diet ?? Activity: ??Ambulate with assistance 3 times a day unless otherwise specified ?? Code Status: ??Full Resuscitation ?? Condition: ??Stable ?? Prognosis: ??Fair ?? Home Health Face to Face ^HomeHealthFTF Results Discharge Labs BLOOD COUNT & DIFF WBC 12.4 k/mm3 (High)?? 03/23/2023 00:03 RBC 4.71 m/mm3 ()?? 03/23/2023 00:03 Hgb 13.6 Gm/dL (Low)?? 03/23/2023 00:03 Hct 42.8 % ()?? 03/23/2023 00:03 MCV 90.9 femtoliters ()?? 03/23/2023 00:03 MCH 28.9 pg ()?? 03/23/2023 00:03 MCHC 31.8 g/dL (Low)?? 03/23/2023 00:03 Platelet Count 187 k/mm3 ()?? 03/23/2023 00:03 RDW-SD 45.1 femtoliters ()?? 03/23/2023 00:03 MPV 9.6 femtoliters ()?? 03/23/2023 00:03 Nucleated RBC (Automated) 0.0 #/100 WBC'S ()?? 03/23/2023 00:03 Abs. NRBC 0.0 k/mm3 ()?? 03/23/2023 00:03 Abs. Neut 6.3 k/mm3 ()?? 03/22/2023 07:41 Abs. Lymph 7.9 k/mm3 (High)?? 03/22/2023 07:41 Abs. [place] 0.7 k/mm3 ()?? 03/22/2023 07:41 Abs. Eo 2.6 k/mm3 (High)?? 03/22/2023 07:41 Abs. Baso 0.0 k/mm3 ()?? 03/22/2023 07:41 Neut % 33.0 % (Low)?? 03/22/2023 07:41 Lymph % 45.0 % (High)?? 03/22/2023 07:41 [place] % 4.0 % (Low)?? 03/22/2023 07:41 Eos % 15.0 % (High)?? 03/22/2023 07:41 Baso % 0.0 % ()?? 03/22/2023 07:41 Promyelocyte % 1.0 % ()?? 03/21/2023 12:12 Metamyelocyte % 3.0 % (High)?? 03/21/2023 12:12 Band % 3.0 % ()?? 03/22/2023 07:41 Atypical Lymph % 3.0 % ()?? 03/21/2023 12:12 WBC Morphology FEW ()?? 03/22/2023 07:41 Platelet Estimate ADEQUATE ()?? 03/22/2023 07:41 ?? CARDIAC High Sensitivity Troponin (HSTnT) 7 ng/L ()?? 03/21/2023 12:12 ? CHEM GENERAL Sodium 143 mmol/L ()?? 03/23/2023 00:03 Potassium 3.6 mmol/L ()?? 03/23/2023 00:03 Chloride 110 mmol/L (High)?? 03/23/2023 00:03 Bicarbonate Level 23 mmol/L ()?? 03/23/2023 00:03 Anion Gap 10 ()?? 03/23/2023 00:03 Glucose Level 106 mg/dL (High)?? 03/23/2023 00:03 BUN 15 mg/dL ()?? 03/23/2023 00:03 Creatinine-Blood 0.7 mg/dL ()?? 03/23/2023 00:03 Estimated GFR Creatinine 101 ML/MIN/1.73 M2 ()?? 03/23/2023 00:03 Calcium 7.9 mg/dL (Low)?? 03/23/2023 00:03 Protein, Total 6.4 Gm/dL ()?? 03/22/2023 07:41 Albumin 2.9 Gm/dL (Low)?? 03/22/2023 07:41 AG Ratio 0.7 ()?? 03/21/2023 15:15 Alkaline Phosphatase 67 units/L ()?? 03/22/2023 07:41 Lipase 19 units/L ()?? 03/21/2023 12:12 AST (SGOT) 13 units/L ()?? 03/22/2023 07:41 ALT (SGPT) 17 units/L ()?? 03/22/2023 07:41 Bilirubin, Total 0.5 mg/dL ()?? 03/22/2023 07:41 Bilirubin, Direct 0.3 mg/dL ()?? 03/22/2023 07:41 Bilirubin, Indirect 0.2 mg/dL ()?? 03/22/2023 07:41 Lactate 1.3 mmol/L ()?? 03/22/2023 07:41 ? SEROLOGY INF DISEASE C.difficile Toxin Negative. C.Difficile bacterial antigen and toxin not detected. A (N)?? 03/22/2023 01:57 ? UA/URINALYSIS Appear/Color, Urine YELLOW ()?? 03/22/2023 02:00 Specific [place], Urine 1.033 (High)?? 03/22/2023 02:00 pH, Urine 6.0 ()?? 03/22/2023 02:00 Albumin, Urine 1+ (Abnormal)?? 03/22/2023 02:00 Glucose, Urine NEGATIVE ()?? 03/22/2023 02:00 Ketones, Urine NEGATIVE ()?? 03/22/2023 02:00 Bilirubin, Urine NEGATIVE ()?? 03/22/2023 02:00 Hemoglobin, Urine NEGATIVE ()?? 03/22/2023 02:00 Nitrite, Urine NEGATIVE ()?? 03/22/2023 02:00 Leukocyte, Urine NEGATIVE ()?? 03/22/2023 02:00 Urobilinogen NORMAL mg/dL ()?? 03/22/2023 02:00 WBC's, Urine 1 /HPF ()?? 03/22/2023 02:00 RBC's, Urine 1 /HPF ()?? 03/22/2023 02:00 Mucus SLIGHT /LPF ()?? 03/22/2023 02:00 ?? URINE OTHER Est Creatinine Clearance 73.29 mL/min ()?? 03/23/2023 01:06 ? 50??minutes spent on discharge * Isai Villalta MD: PERFORM Event Display: Discharge/Transfer Note Hospital Authored Date: Patient is supposed to be discharged on 03/23 but not due to missing some transportation paperwork.This note will serve as progress note of the day. [id number]. * Ava Campos RN: PERFORM Event Display: Patient Education/Instruction Authored Date: Inpatient Adult Discharge Instructions [address] [address] Name: ABIDA FERRARI : 1955 Visit: 03/21/2023 15:17:00 Current Date: 03/23/2023 20:52 Account: [id number] Inpatient Adult Discharge Instructions We would like to thank you for allowing us to assist you with your healthcare needs. The following includes patient education materials and information regarding your injury/illness. Our entire staffstrives to provide an excellent experience for our patients and their families. PLEASE ENSURE YOU FOLLOW-UP PER THE INSTRUCTIONS BELOW! ?? YOUR OPINION IS IMPORTANT TO US! Please complete the survey you may receive by mail or email. Your feedback will be used to make improvements to the healthcare experiences of our patients and their families. Surveys are administered by [employer] ?? If further treatment with your primary care physician or another doctor is recommended, it is important for you to keep the appointment. Call your primary care physician or return to the Emergency Department immediately if your condition worsens, fails to improve, or new symptoms develop. If you need to find a doctor, you can call [facility] for a referral at [phone] or toll free at [phone] or log in to [email or web address] ?? [facility], in keeping with [facility] guidance, no longer requires face masks for staff, patientsor visitors in most situations. Similiar to time spent indoors at other locations, there is the chance that you were exposed to repiratory viruses during your time with us (such as flu or COVID-19). If you develop symptoms concerning for a viral respiratory infection, please seek testing (and treatment if indicated) from your medical provider or home test kit. ?? You can view and manage your care through the patient portal or by using a health care hung of your choosing. [facility] is a website that allows you to securely view your medical information including your hospital discharge summary, office visit summaries, medications and follow-up visits. You can also request appointments, renew medications, and request access to your medical information using a health care hung of your choosing, or just ask a question. You can enroll at [email or web address] or register during your next office visit. You have been discharged from [facility], Patient Care Unit: S1. If you have any questions regarding these instructions after you leave, please call us and we will be happy to assist you. [facility] Your Care Team Attending Physician Isai Villalta MD Discharging Providers Isai Villalta MD Reason for Admission staff called for 24hr lower abd pain, not eating or drinking, weakness and tachycardia. not taking meds x 1 day d/t nausea. no IV Your Diagnosis Viral gastroenteritis HIV disease HIV dementia Acute kidney injury Severe sepsis with acute organ dysfunction High anion gap metabolic acidosis Schizoaffective disorder Chronic hepatitis C Tests Performed Below is a partial list of the tests performed during your hospitalization. You may have had other tests and procedures not included in this list. Please discuss all test results with your provider. Basic Metabolic Panel C. difficile Rapid Toxin Assay CBC CBC w/ Differential Comprehensive Metabolic Panel High??Sensitivity??Troponin T Lactate Level Lactic Acid Level Lipase Liver Function Panel UA CT Abd/Pelvis W/ IV Contrast Only XR Chest 2 Views Frontal and Lat Primary Care [facility] Health Care Proxy on File Yes - Health Care Proxy Yes - MOLST Discharge Vitals Temperature: 97.5 DegF Height: 176 cm Pulse Rate:??94 bpm??High Weight: 51.3 kg Respiratory Rate: 18 br/min Body Mass Index:??16.56 kg/m2??Low Systolic Blood Pressure: 124 mm Hg Body surface area: 1.58 Diastolic Blood Pressure: 71 mm Hg ?? Oxygen Saturation: 97 % ?? Studies Pending All tests and labs ordered during this hospital stay have been completed unless listed below. Please discuss all pending results with your provider listed above in these instructions. ?? Blood Culture Blood Culture #2 Urine Culture (Culture Urine) What to do next Instructions From Your Doctor You are admitted for??stomach upset and diarrhea, your CT scan in emergency room did not evidence of gastroenteritis, your conditions improved with supportive care and loose stool is slowing down;? You may resume a low fat diet and advance back to regular diet as tolerated over the next few days,if your appetite remains low, you may consider some protein supplements such as Ensure or Boost 1 bottle each meal, until your appetite is back to baseline;? Please follow up with primary care provider within 2-3 weeks to ensure recovery from acute illness.Additional stool and blood testing may be needed should you develop recurrent symptoms or more chronic diarrhea;? You may use acetaminophen up to 2000??mg over 24 hours for milder pain (do not exceed this limit toavoid life-threatening liver failure); Please avoid ibuprofen, naproxen, diclofenac or other znuk-kur-[id number] analgesics collectively called NSAIDs as these medications may trigger inflammation and ulcer in your stomach and intestines; ?? Return to nearest emergency room or call 911 if you experience fever T>100.4F, chill, chest painlasts longer than 10 minutes, shortness of breathing with minimal exertion, worsening or more constant abdominal pain, nausea/vomiting, food intolerance, bloody or tarry stool, extreme fatigue or dizziness, or other severe and/or persistent symptoms. Discharge Orders Diet:??Low Fat 50 Gram Non Cardiac Diet Activity:??Ambulate with assistance 3 times a day unless otherwise specified Code Status:?? Full Resuscitation Condition:??Stable Prognosis:??Fair Scheduled Follow-Up Appointments Saturday 10:00 AM EST ?? With: Penny RAJPUT, Fernandez Sena Where: [facility] [address] [place] [id number]- Status: Pending You Need to Schedule the Following Appointments Follow Up with??Jaison RAJPUT, Asma When:??Within 2 to 3 weeks Where: [address] [place] [address]- Discharge Medications VONDAABIDA :1955 Visit Date:03/21/2023 Medications: Please continue your medications until treatment is completed or stopped by your provider. Medications not listed below should be discontinued. Discuss any questions related to medications with your provider. What How Much When Instructions Next Dose Unchanged Acetaminophen (Tylenol 325 mg oral tablet) 2 tab(s) Oral Every 6 hours as needed for Mild Pain/Fever PRN Unchanged Albuterol (albuterol 90 mcg/ inh inhalation powder) 2 puff(s) Inhalation Every 4 hours as needed for Wheezing/Shortness of Breath PRN Unchanged Divalproex Sodium (divalproex sodium 250 mg oral enteric coated tablet) 1 tab(s) Oral Daily 03/24 Unchanged emtricitabine/ rilpivirine/ tenofovir (Odefsey oral tablet) 1 tab(s) Oral Daily 03/24 Unchanged Haloperidol (haloperidol decanoate 100 mg/ ml injectable solution) 1 Milliliter Intramuscular Every 28 days Unchanged levETIRAcetam (Keppra XR 500 mg oral tablet, extended release) 2 tab(s) Oral Twice a day 03/24 Unchanged Mirtazapine (mirtazapine 15 mg oral tablet, disintegrating) 1 tab(s) Oral Daily at Bedtime 03/24 Unchanged Olanzapine (olanzapine 15 mg oral tablet, disintegrating) 1 tab(s) Oral Daily 03/24 Unchanged Polyethylene Glycol 3350 (MiraLax oral powder for reconstitution) 17 gram Oral Daily as needed for Constipation PRN Unchanged Thiamine (Vitamin B1 100 mg oral tablet) 1 tab(s) Oral Daily 03/24 Test Results Below is a partial list of the most recent Laboratory test results done prior to this discharge. You may have had other tests and procedures not included in this list. Please discuss all test resultswith your provider. Est Creatinine Clearance - 73.29 mL/min (03/23/2023) Basic Metabolic Panel (03/23/2023) ???Sodium - 143 mmol/L???Potassium - 3.6 mmol/L???Chloride - 110 mmol/L???Bicarbonate Level - 23 mmol/L???Anion Gap - 10???Glucose Level - 106 mg/dL???BUN - 15 mg/dL???Creatinine-Blood - 0.7 mg/dL???Estimated GFR Creatinine - 101 ML/MIN/1.73 M2???Calcium - 7.9 mg/dL C. difficile Rapid Toxin Assay (03/22/2023) ???C.difficile Toxin - Negative. C.Difficile bacterial antigen and toxin not detected. A CBC (03/23/2023) ???WBC - 12.4 k/mm3???RBC - 4.71 m/mm3???Hgb - 13.6 Gm/dL???Hct - 42.8 %???MCV - 90.9 femtoliters???MCH - 28.9 pg???MCHC - 31.8 g/dL???Platelet Count - 187 k/mm3???RDW-SD - 45.1 femtoliters???MPV - 9.6 femtoliters???Nucleated RBC (Automated) - 0.0 #/100 WBC'S???Abs. NRBC - 0.0 k/mm3 CBC w/ Differential (03/22/2023) ???WBC - 17.6 k/mm3???RBC - 5.28 m/mm3???Hgb - 15.8 Gm/dL???Hct - 47.5 %???MCV - 90.0 femtoliters???MCH - 29.9 pg???MCHC - 33.3 g/dL???Platelet Count - 197 k/mm3???RDW-SD - 43.8 femtoliters???MPV - 9.2 femtoliters???Nucleated RBC (Automated) - 0.0 #/100 WBC'S???Abs. NRBC - 0.0 k/mm3???Abs. Neut - 6.3 k/mm3???Abs. Lymph - 7.9 k/mm3???Abs. [place] - 0.7 k/mm3???Abs. Eo - 2.6 k/mm3???Abs. Baso - 0.0 k/mm3???Neut % - 33.0 %???Lymph % - 45.0 %???[place] % - 4.0 %???Eos % - 15.0 %???Baso % - 0.0 %???Band %- 3.0 %???WBC Morphology - FEW???Platelet Estimate - ADEQUATE Comprehensive Metabolic Panel (03/21/2023) ???Sodium - 142 mmol/L???Potassium - HEMOLYZED???Chloride - 112 mmol/L???Bicarbonate Level - 11 mmol/L???Anion Gap - 19???Glucose Level - 148 mg/dL???BUN - 46 mg/dL???Creatinine-Blood - 1.3 mg/dL???Estimated GFR Creatinine - 63 ML/MIN/1.73 M2???Calcium - 8.2 mg/dL???Protein, Total - 8.5 Gm/dL???[place] min - 3.6 Gm/dL???AG Ratio - 0.7???Alkaline Phosphatase - 90 units/L???AST (SGOT) - 23 units/L???ALT (SGPT) - 21 units/L???Bilirubin, Total - 0.6 mg/dL High??Sensitivity??Troponin T (03/21/2023) ???High Sensitivity Troponin (HSTnT) - 7 ng/L Lactate Level (03/21/2023) ???Lactate - 3.3 mmol/L Lactic Acid Level (03/22/2023) ???Lactate - 1.3 mmol/L Lipase (03/21/2023) ???Lipase - 19 units/L Liver Function Panel (03/22/2023) ???Protein, Total - 6.4 Gm/dL???Albumin - 2.9 Gm/dL???Alkaline Phosphatase - 67 units/L???AST (SGOT) - 13 units/L???ALT (SGPT) - 17 units/L???Bilirubin, Total - 0.5 mg/dL???Bilirubin, Direct - 0.3 mg/dL???Bilirubin, Indirect - 0.2 mg/dL UA (03/22/2023) ???Appear/Color, Urine - YELLOW???Specific [place], Urine - 1.033???pH, Urine - 6.0???Albumin, Urine - 1+???Glucose, Urine - NEGATIVE???Ketones, Urine - NEGATIVE???Bilirubin, Urine - NEGATIVE???Hemoglobin, Urine - NEGATIVE???Nitrite, Urine - NEGATIVE???Leukocyte, Urine - NEGATIVE???Urobilinogen - NORMAL???WBC's, Urine - 1 /HPF???RBC's, Urine - 1 /HPF???Mucus - SLIGHT Allergies (NKA means No Known Allergies) NKA Problems Active Problems??(5) Hepatitis C virus?? HIV dementia?? HIV disease?? Iatrogenic hypotension?? Underweight?? Education Materials Below is the list of Educational Leaflet Providered with your Discharge Instructions. Discharge Instructions for Acute Kidney Injury?? Viral Gastroenteritis?? Valuables and Belongings I fully understand and agree that [facility] accepts no responsibility for all my personal property including clothing, toilet articles, radios, jewelry, dentures, hearing aids, rings, money, or any other property that is in my possession or is brought to me after admission. I understand certain valuables may be placed in a hospital safe for a short period of time. I understand that the hospital is not liable for loss or damage due to accident, fire, or other natural occurrence while said property is in the safe. I accept full responsibility for any personal property that I keep with me, and will not hold the hospital responsible in case of loss or disappearance. I acknowledge that i have been encouraged to send valuables and belongings home. ?? No Valuables/Belongings: No valuables/belongings present Date for Pt to Sign Valuables/Belongings: 03/22/23 20:56:00 ?? Other Discharge Information ? Pulmonary Rehab Status?? Pulmonary Rehab Discharge Status?? Respiratory Rate: 18 br/min ? Common Emergency Awareness Tips IS IT A STROKE? Act FAST and Check for these signs: FACE Does the face look uneven? ARM Does one arm drift down? SPEECH Does their speech sound strange? TIME Call at any sign of stroke ?? Heart Attack Signs Chest discomfort: Most heart attacks involve discomfort in the center of the chest and lasts more than a few minutes, or goes away and comes back. It can feel like uncomfortable pressure, squeezing, fullness or pain. Discomfort in upper body: Symptoms can include pain or discomfort in one or both arms, back, neck, jaw or stomach. Shortness of breath: With or without discomfort. Other signs: Breaking out in a cold sweat, nausea, or lightheaded. Remember, MINUTES DO MATTER. If you experience any of these heart attack warning signs, call to get immediate medical attention! ?? Smoking can increase your chances of developing chronic health problems and can cause harmful effects to other family members in your house. If you smoke, you are strongly encouraged to quit. Please call [facility] at [phone] or [phone] ([phone]) or log in to [email or web address] for referrals to smoking cessation programs. ?? 568 Suicide & Crisis Lifeline is available 03/12 if you or someone you know needs to find a reason to keep living. By calling 202 you'll be connected to a skilled, trained counselor at a crisis center in your area. INPATIENT DISCHARGE INSTRUCTIONS SIGNATURE PAGE ABIDA FERRARI Location:[facility] Registration Date and Time:03/21/2023 15:17 EST Primary Care Physician: [facility]ison [facility]PUT[facility], Attending Physician: Isai Villalta MD, I GUESSABIDA, have received the above patient education materials/instructions and have verbalized understanding. If ambulance or transport services are being used I further acknowledge being given a choice of service. ?? If you need to contact me, please call me at this number: . Patient/Boxing Inspector Name: Patient/Boxing Inspector Signature: Relationship to Patient: Witness Name/Signature: Date: * Isai Villalta MD: PERFORM Event Display: Patient Education Leaflets Authored Date: [id number] Discharge Instructions for Acute Kidney Injury ?? [address] Discharge Instructions for Acute Kidney Injury You have been diagnosed with acute kidney injury. This means that you have had a sudden episode of kidney failure or damage that causes your kidneys not to work correctly. When both kidneys are healthy, they help filter out fluid and waste from the blood and body.??Acute kidney injury has many causes. These include urinary blockages, infection, lack of enough blood supply, and medicines that can injure??kidneys. In some cases, acute kidney injury is short-term (temporary). This type lasts several days to a few months. This is because the kidney can repair itself. Acute kidney injury can also result in chronic kidney disease or end stage renal failure. Here are some directions for you to follow as you recover. Home care ??? Follow any directions for eating and drinking given to you by your healthcare provider. o Drink less fluid, if directed by your healthcare provider. o Keep a record of everything you eat and drink. ??? Measure the amount of urine and stool you have each day. ??? Weigh yourself every day, at the same time of day, and in the same kind of clothes. Keep a daily record of your daily weights. ??? Take your temperature every day. Keep a record of the results. ??? Learn to take your own blood pressure (BP). Your healthcare provider can teach you how to correctly measure your BP. Keep a record of your results. Bring the record to your follow-up appointments. Ask your healthcare provider when you should seek emergency medical attention. Your provider will tell you what blood pressure reading is dangerous. ??? Stay away from people who have infections. This includes people with colds, bronchitis, or skin conditions. ??? Practice good personal??hygiene. Wash your hands often. This is especially important if you have a catheter in place when you leave the hospital. Doing so helps keep you safe from infection. ??? Take your medicines exactly as directed. ??? You may need frequent blood and urine tests. These are done to keep track of your kidney function. ?? Follow-up care Follow up with your healthcare provider, or as advised. ?? When to call your healthcare provider Call your??healthcare provider??right away if any of the following occur: ??? Signs of bladder infection, such as urinating more often, burning or pain when you pee, pain above your pubic bone, bloodin your urine, or trouble starting your urine stream ??? Signs of infection around your catheter, such as redness, swelling, warmth, or fluid leaking ??? Rapid weight loss or weight gain, such as 3??pounds or more in 24 hours or 6 pounds or more in 7 days ??? Fever above 100.4?? F ( 38??C ) or as directed by your healthcare provider ??? Chills ??? Muscle aches ??? Night sweats ??? Very little or no urine output ??? Swelling of your hands, legs, or feet ??? Back pain ??? Abdominal (belly) pain ??? Extreme tiredness ?? Last Reviewed Date: 2022 ?? [employer]. All rights reserved. This information is not intended as a substitute for professional medical care. Always follow your healthcare professional's instructions. ?? * Isai Villalta MD: PERFORM Event Display: Patient Education Leaflets Authored Date: [id number] Viral Gastroenteritis ?? 208 Viral Gastroenteritis What is viral gastroenteritis? Viral gastroenteritis is an inflammation, swelling, and irritation of the inside lining of your gastrointestinal tract. A virus causes this illness. It can infect your stomach, small intestine, and large intestine. Viral gastroenteritis is very common. In most cases, it lasts only a few days and doesn???t need treatment. The biggest danger is dehydration from fluid loss due to diarrhea and vomiting. ?? What causes viral gastroenteritis? Several viruses can cause gastroenteritis. Viruses can be found in the vomit and the diarrhea of infected people. It can live for a long time outside the body. People who are infected can spread the virus to objects they touch, especially if they don???t wash their hands after using the bathroom. Food workers with the infection can spread it to others through food and drinks. Sewage that gets into the water supply can also spread the illness. Viral gastroenteritis is sometimes called stomach flu. But the seasonal flu (influenza) virus does not cause it. Some of the common viruses that cause gastroenteritis include: ??? Rotavirus. This virus most often infects infants age 3 to 15 months. The illness lasts for 3 to7 days and is most common in fall and winter. ??? Norovirus. This virus is the most common cause ofadult infections. It???s often responsible for outbreaks on cruise ships. Symptoms last from 1 to 3days and can occur any time of the year. ??? Adenovirus. This virus occurs year-round and affects children age 2 and younger. Symptoms last from 5 to 12 days. Many other viruses can also cause viral gastroenteritis. ?? What are the symptoms of viral gastroenteritis? Symptoms of viral gastroenteritis often begin about 1 to 2 days after the virus gets into the body. Common symptoms include: ??? Nausea ??? Vomiting ??? Watery diarrhea ??Other possible symptoms are: ??? Headache ??? Fever ??? Chills ??? Stomachache Signs of dehydration: ??? Decreased urine output ??? Dark-colored urine ??? Dry skin ??? Thirst ??? Dizziness Signs of dehydration in young children: ??? Dry diapers (from a lack of urination) ??? Lack of tears ??? Dry mouth ??? Drowsiness ??? Sunken fontanel (the soft spot on the top of an ???s head) ?? How is viral gastroenteritis diagnosed? Your healthcare provider will most likely diagnose your condition based on your history and symptoms. In rare cases you may need testing. If your symptoms don't go away, your healthcare provider may ask for a stool sample. This is done to look for viruses, bacteria, and parasites. ?? Can viral gastroenteritis be prevented? Vaccines are available to protect children from rotavirus. Healthcare providers give shots to babies before age 6 months. You and your children can help prevent viral gastroenteritis by taking these steps: ??? Wash hands for 20 seconds with soap and clean, running water after going to the bathroom,after changing a diaper, and before touching any food. ??? Use alcohol-based sanitizers. ??? If someone in the house has gastroenteritis, wash all surfaces that might be contaminated with a bleach-based ceiling cleaner. ??? Don't eat or drink any food or water with warnings of contamination. ?? How is viral gastroenteritis treated? Specific treatment is often not needed. In most cases, you simply need to drink plenty of fluids and rest at home until the virus leaves your system. In rare cases, you may need treatment for severe dehydration with IV (intravenous) fluids. Helpful home care tips include: ??? Drink plenty of light fluids like water, ice chips, diluted fruit juice, and broth. Keep in mind that sports drinks are high in sugar. They are not appropriate if you are extremely dehydrated. In this case, you will need an oral rehydration solution. ??? Don't have drinks that contain milk, caffeine, or alcohol. ??? Once you feel hungry again, start with mild, ohsz-jf-oximih foods. ??? Rehydrate children with oral rehydration solutions. ??? You may take antidiarrheal medicines for a couple days. But don't take these if you have a fever or bloody stool. Don't take them if you are an older adult. Don't give these to a child. ?? When should I call my healthcare provider? Viral gastroenteritis is common in children and adults. In most cases, the disease is not serious and will run its course in a few days. Call your healthcare provider if you or a family member has any of the following: ??? Vomiting or diarrhea that???s not getting better ??? Bloody or tar-like stool ??? Any signs of dehydration ?? Cramer points about viral gastroenteritis ??? Viral gastroenteritis is an inflammation of the inside lining of your gastrointestinal tract. ??? It can be caused by rotavirus, norovirus, adenovirus, and other viruses. ??? Babies can be vaccinated against rotavirus. ??? Symptoms of viral gastroenteritisare nausea, vomiting, and watery diarrhea. ??? Dehydration is the most serious complication of thisillness. ??? This illness should run its course in a few days. But it may need medical care if diarrhea or vomiting persists or if there are signs of dehydration. ?? Next steps Tips to help you get the most from a visit to your healthcare provider: ??? Know the reason for your visit and what you want to happen. ??? Before your visit, write down questions you want answered. ??? Bring someone with you to help you ask questions and remember what your provider tells you. ??? At the visit, write down the name of a new diagnosis and any new medicines, treatments, or tests. Also write down any new instructions your provider gives you. ??? Know why a new medicine or treatmentis prescribed and how it will help you. Also know what the side effects are. ??? Ask if your condition can be treated in other ways. ??? Know why a test or procedure is recommended and what the results could mean. ??? Know what to expect if you do not take the medicine or have the test or procedure. ??? If you have a follow-up appointment, write down the date, time, and purpose for that visit. ??? Know how you can contact your provider if you have questions, especially after office hours or on weekends. ?? Last Reviewed Date: 2022 ?? 2811-2930 [employer]. All rights reserved. This information is not intended as a substitute for professional medical care. Always follow your healthcare professional's instructions. ?? Patient Care team information Care Team Personnel Name: Adan Martin RN Position: [facility] RN Member Role: Primary Care Nurse Name: Antonietta Monae RN Position: [facility] RN Member Role: Primary Care Nurse Name: Lisa Shaikh RN Position: [facility] SN RN Member Role: Primary Care Nurse Name: Natacha Fuentes RN Position: [facility] RN Member Role: Primary Care Nurse Name: Rodriguez Alejandre RN Position: [facility] RN Member Role: Primary Care Nurse Name: Fabio Lang RN Position: [facility] RN Member Role: Primary Care Nurse Name: Nimesh Blackwood MD Position: [facility] Physician - Primary Care Member Role: PCP Address: Address: [address] [place], [place] [address] Name: Junie Santacruz RN Position: [facility] RN Member Role: Primary Care Nurse Name: Trina Harrison RN Position: [facility] RN Member Role: Primary Care Nurse Name: Junie Mendez RN Position: [facility] RN Member Role: Primary Care Nurse Name: Marisela Canseco RN Position: [facility] RN Member Role: Primary Care Nurse Name: Tino Madera MD Position: [facility] Physician - Infectious Disease Member Role: [employer] Consulting Physician Address: Address: [address] [place] [address] [place] [address]- Name: Angy Corcoran RN Position: [facility] RN Member Role: Primary Care Nurse Name: Imelda Alicia RN Position: [facility] RN Member Role: Primary Care Nurse Name: Ta Alanis RN Position: [facility] RN Member Role: Primary Care Nurse Name: Lb PADILLA Attending Position: [facility] ED Medicine Name: Iqra Patrick RN Position: [facility] ED RN W/OE and Tasks Member Role: Patient Care Provider Name: Sonali Sellers Position: [facility] ED TA [facility] Member Role: Patient Care Provider Care Team Related Persons Name: VIANNEY JONES Address: home [address] [place] [address] Name: HARRY FERRARI Address: home [address] [place] [address] Name: CHERYL CHEN Address: home [address] [place] [address] Name: SIKES, Address: home [address] [place] [address] E [place], [address]
--- OUTSIDE RECORDS SUMMARY | 2023-09-30 20:28 | XMS_ITS | Continuity of Care Document ---
Author Organization [facility] Address [address] [place] [address]- Care Team Providers Care Cotton Puller Name Role Phone Jaison RAJPUT, Nimesh Primary Care Physician [place] [facility] Date[place] 07/23/19 - 09/19/19 [facility] [address] [place] [id number] [facility] Attending Physician: Tino Madera MD Admitting Physician: Tino Madera MD Referring Physician: Nimesh Blackwood MD Allergies, [...]
--- OUTSIDE RECORDS SUMMARY | 2023-09-30 20:28 | XMS_ITS | Continuity of Care Document ---
Author Organization [facility] ter Address [address] [place] [address]- Care Team Providers Care Table Worker Packager Name Role Phone Jaison RAJPUT, Asma Primary Care Physician [phone] Encounter [facility] ACCT R [id number] Date(s): 07/21/23 - 07/22/[address] [address]- Encounter Diagnosis Hypertension(Final) - 07/21/23 Tachycardia(Final) - 07/21/23 Discharge Disposition: A-D/C Home Attending Physician: Jennifer Cox MD Admitting Physician: Jennifer Cox MD Referring Physician: Not on Staff, Referring [...] opioid drug. Start Date: 03/21/23 Status: Ordered amLODIPine 5 mg oral tablet 1 tablet = 5 mg, By Mouth, Daily, # 30 tablet, 0 Refills, Maintenance, 07/21/23 21:10:00 EDT, Tablet, [facility], Partial fill upon patient request if the prescription is for a schedule II opioid drug., 176, cm, 03/24/23 3:52:00 EST, Height,... Start Date: 07/21/23 Status: Ordered divalproex sodium 125 mg oral delayed release capsule = 125 mg, By Mouth, 2 times a day, # 28 capsule, 1 Refills, Maintenance, 04/07/23 15:10:00 EST, [facility], Partial fill upon patient request if [...] Refills, Maintenance, 04/07/23 15:11:00 EST, DIS Tablet, [facility], Partial fill upon patient request if the [...] Active Hepatitis C virus Confirmed Active Results Radiology Reports * Exam Date Time Procedure Performing Provider Status 07/21/23 3:49 PM Chest 2 Views Frontal and Lat Clementina Cardoso; Marine (Verified) Notes: (Chest 2 Views Frontal and Lat) Reason For Exam: tachycardia;Cough RESULT: Chest 2 Views Frontal and Lat Chest 2 Views Frontal and Lat INDICATION: Hx of Present Illness: HTN; Reason: Cough; tachycardia; Clinical Question(s): CHF COMPARISON: 04/07/2023 FINDINGS: LINES AND TUBES: None. LUNGS AND PLEURA: Shallow inspiratory effort and mild accentuation of interstitial markings similarto the prior exam. No evidence of confluent airspace opacity, lung consolidation or pulmonary vascular redistribution. Costophrenic sulci are maintained. No evidence of pneumothorax. HEART, MEDIASTINUM AND SHAHLA: Cardiomediastinal silhouette is within normal limits in size. BONES AND SOFT TISSUES: No acute abnormality IMPRESSION: No evidence of active cardiopulmonary process WSN: [id number] Ordering Physician: Adan Mcclain Dictated By: Tolu Betancourt Jr, MD Dictated Date/Time: 07/21/23 3:53 pm Reviewed By: Tolu Betancourt Jr, MD Signed By: Tolu Betancourt Jr, MD Signed Date/Time: 07/21/23 3:53 pm Transcribed By: YAHAIRA Transcribed Date/Time: 07/21/23 3:52 pm Vital Signs Most recent to oldest [Reference Range]: 1 2 3 Weight 51.8 kg (07/21/23 1:09 PM) Oxygen Saturation [94-100 %] 98 % (07/21/23 11:12 PM) 99 % (07/21/23 7:02 PM) 100 % (07/21/23 6:05 PM) Pulse Rate [55-90 bpm] 101 bpm *H* (07/21/23 11:12 PM) 99 bpm *H* (07/21/23 7:02 PM) 99 bpm *H* (07/21/23 6:05 PM) Blood Pressure [90-138/55-84 mm Hg] 173/110mm Hg *H* (07/21/23 11:12 PM) 174/114mm Hg *H* (07/21/23 7:02 PM) 174/111mm Hg *H* (07/21/23 6:05 PM) Respiratory Rate [16-30 br/min] 18 br/min (07/21/23 11:12 PM) 18 br/min (07/21/23 7:02 PM) 17 br/min (07/21/23 6:05 PM) Temperature [96.8-100.4 DegF] 97.9 DegF (07/21/23 11:12 PM) 97.3 DegF (07/21/23 1:38 PM) 97.2 DegF (07/21/23 1:09 PM) Mode of Delivery (Oxygen) Room air (07/21/23 11:12 PM) Room air (07/21/23 7:02 PM) Room air (07/21/23 6:05 PM) Blood pressure sites Arm, right (07/21/23 11:12 PM) Arm, right (07/21/23 7:02 PM) Arm, right (07/21/23 6:05 PM) Temperature Route Temporal (07/21/23 11:12 PM) Oral (07/21/23 1:38 PM) Oral (07/21/23 1:09 PM) Social History Social History Type Response Smoking Status Former smoker; Tobac co user in household: No entered on: 02/06/18 Sex EKG study * Event Display: ECG 12-Lead Authored Date: Please click on pdf link to open report * Event Display: ECG 12-Lead Authored Date: Ventricular Rate: 120 BPM Atrial Rate: 120 BPM P-R Interval: 180 ms QRS Duration: 76 ms Q-T Interval: 316 ms QTC Calculation(Bazett): 446 ms P [place]: 77 degrees R [place]: -75 degrees T [place]: 65 degrees Poor data quality, interpretation may be adversely affected Sinus tachycardia Biatrial enlargement Left axis deviation Inferior infarct (cited on or before 06-APR-2023) Abnormal ECG When compared with ECG of 06-APR-2023 02:14, No significant change was found Confirmed by SHAYY MOFFETT MD ([id number]) on 07/21/2023 4:22:18 PM [place]: SHAYY MOFFETT MD Patient Care team information Care Team Personnel Name: Adan Martin RN Position: [facility] RN Member Role: Primary Care Nurse Name: Antonietta Monae RN Position: [facility] RN Member Role: Primary Care Nurse Name: Lisa Shaikh RN Position: [facility] RN Member Role: Primary Care Nurse Name: Natacha Fuentes RN Position: [facility] RN Member Role: Primary Care Nurse Name: Rodriguez Alejandre RN Position: [facility] RN Member Role: Primary Care Nurse Name: Fabio Lang RN Position: [facility] RN Member Role: Primary Care Nurse Name: Nimesh Blackwood MD Position: [facility] Physician - Primary Care Member Role: PCP Address: Address: [address] [place], [place] [address] Name: Junie Santacruz RN Position: [facility] RN Member Role: Primary Care Nurse Name: Trina Harrison RN Position: [facility] RN Member Role: Primary Care Nurse Name: Junie Mendez RN Position: [facility] RN Member Role: Primary Care Nurse Name: Marisela Canseco RN Position: [facility] RN Member Role: Primary Care Nurse Name: Tino Madera MD Position: [facility] Physician - Infectious Disease Member Role: Lifetime Consulting Physician Address: Address: [address] [place] [address] [place] [address]- Name: Angy Corcoran RN Position: [facility] RN Member Role: Primary Care Nurse Name: Imelda Alicia RN Position: [facility] RN Member Role: Primary Care Nurse Care Team Related Persons Name: VIANNEY JONES Address: home [address] [place] [address] Name: HARRY FERRARI Address: home [address] [place] [address] Name: CHERYL CHEN Address: home [address] [place] [address] Name: PRASHANT BERRY Address: home [address] [place] [address]
--- OUTSIDE RECORDS SUMMARY | 2023-09-30 20:28 | XMS_ITS | Continuity of Care Document ---
Author Organization [facility] Address [address] [place] [address]- Care Team Providers Care Shear Operator Helper Name Role Phone Jaison RAJPUT, Nimesh Primary Care Physician Encounter [facility] Date(s): 12/31/22 - 03/09/23 [facility] [address] [place] [id number] Attending Physician: Fernandez Francis MD Admitting Physician: Fernandez Francis MD Referring Physician: Nimesh Blackwood MD Allergies, Adverse Reactions, Alerts No Known Allergies Immunizations Given and Recorded Vaccine Date Status Refusal Reason SARS-CoV-2 (COVID-19) mRNA BNT-162b2 vac 06/30/20 Recorded SARS-CoV-2 (COVID-19) mRNA BNT-162b2 vac 06/09/20 Recorded pneumococcal 13-valent vaccine 06/16/19 Given tetanus/diphtheria/pertussis, acel(Tdap) 06/16/19 Given hepatitis B adult vaccine 1 02/06/18 Given Pneumovax 23 (oldterm) 07/16/08 Recorded 1Admin Note: Heplisav-B Medications amLODIPine 2.5 mg oral tablet 2.5 [...] Date: 01/31/22 Status: Ordered Problem List Condition Confirmation Course Effective Dates Status Health St atus Informant HIV disease Confirmed Active Iatrogenic hypotension Confirmed Active Underweight Confirmed Active Hepatitis C virus Confirmed Active Social History Social History Type Response Smoking Status Former smoker; Tobac co user in household: No entered on: 02/06/18 Sex Patient Care team information Care Team Personnel Name: Adan Martin RN Position: [facility] RN Member Role: Primary Care Nurse Name: Antonietta Monae RN Position: [facility] RN Member Role: Primary Care Nurse Name: Lisa Shaikh RN Position: [facility] RN Member Role: Primary Care Nurse Name: Natacha Fuentes RN Position: [facility] RN Member Role: Primary Care Nurse Name: Rodriguez Alejandre RN Position: [facility] RN Member Role: Primary Care Nurse Name: Antonietta Phillips RN Position: [facility] RN Supviola Member Role: Primary Care Nurse Name: Fabio Lang RN Position: [facility] RN Member Role: Primary Care Nurse Name: Nimesh Blackwood MD Position: [facility] Physician - Primary Care Member Role: PCP Address: Address: [address] [place] [address]- Name: Junie Santacruz RN Position: [facility] RN Member Role: Primary Care Nurse Name: Trina Harrison RN Position: [facility] RN Member Role: Primary Care Nurse Name: Junie Mendez RN Position: [facility] RN Member Role: Primary Care Nurse Name: Marisela Canseco RN Position: [facility] RN Member Role: Primary Care Nurse Name: Tino Madera MD Position: [facility] Physician - Infectious Disease Member Role: Lifetime Consulting Physician Address: Address: [address] [place] [address] [place] [address]- Name: Angy Corcoran RN Position: [facility] RN Member Role: Primary Care Nurse Name: Imelda Alicia RN Position: [facility] RN Member Role: Primary Care Nurse Name: Ta Alanis RN Position: [facility] RN Member Role: Primary Care Nurse Care Team Related Persons Name: VIANNEY JONES Address: home [address] [place] [address] Name: HARRY FERRARI Address: [address] [place] [address] Name: CHERYL CHEN Address: home [address] [place] [address] Name: PRASHANT BERRY Address: home [address] [facility] [facility] [address]
--- OUTSIDE RECORDS SUMMARY | 2023-09-30 20:28 | XMS_ITS | Continuity of Care Document ---
Author Organization [facility] Address [address] [place] [address]- Care Team Providers Care Roll Weigher Name Role Phone Jaison RAJPUT, Asma Primary Care Physician Encounter [facility] ACCT R [id number] Date(s): 02/26/23 - 05/23/23 [facility] [address] [place] [address]- Attending Physician: Fernandez Francis MD Admitting Physician: Fernandez Francis MD Allergies, Adverse Reactions, Alerts No Known [...] capsule, 1 Refills, Maintenance, 04/07/23 15:10:00 EST, [facility], Partial fill upon patient request if [...] Refills, Maintenance, 04/07/23 15:11:00 EST, DIS Tablet, [facility], Partial fill upon patient request if [...] Care Nurse Name: Lisa Shaikh RN Position: [facility] RN Member Role: Primary Care Nurse Name: [...] Care Member Role: PCP Address: Address: [address] [place], [place] [address] Name: Junie Santacruz RN Position: S RN Member Role: Primary Care Nurse Name: Trina Harrison RN Position: [facility] RN Member Role: Primary Care Nurse Name: Junie Mendez RN Position: [facility] RN Member Role: Primary Care Nurse Name: Marisela Canseco RN Position: [facility] ED RN W/OE and Tasks Member Role: Primary Care Nurse Name: Tino Madera MD Position: [facility] Physician - Infectious Disease Member Role: Lifetime Consulting Physician Address: Address: [address] [place] [address] Infectious Disease [place], [place] [address] Name: Angy Corcoran RN Position: [facility] RN Member Role: Primary Care Nurse Name: Imelda Alicia RN Position: [facility] RN Member Role: Primary Care Nurse Name: Ta Alanis RN Position: [facility] RN Member Role: Primary Care Nurse Care Team Related Persons Name: VIANNEY JONES Address: home [address] [place] [address] Name: HARRY FERRARI Address: [address] [place] [address] Name: CHERYL CHEN Address: home [address] [place] [address] Name: PRASHANT BERRY Address: home [address] [place] [address]
[2023-09-30 21:26] VITALS: BMI 17.1
[2023-09-30 21:33] VITALS: BP 144/95; PULSE 105; RESP 17; TEMP 36.3; O2SAT 96
[2023-09-30] MEDS: Mirtazapine 15 MG TABLET PO (22:15)
[2023-09-30] MEDS: OLANZapine 10 MG TABLET PO (22:15)
[2023-09-30] MEDS: HaloperidoL 5 MG TABLET PO (22:15)
[2023-09-30] MEDS: Divalproex Sodium 250 MG TABLET.DR PO (22:15)
--- NOTE | 2023-09-30 23:17 | PC.NURSE ---
Addendum entered by Ronnie Mejía RN 10/01/23 23:18: Patient has [place] catheter at the time arrival. Original Note: Admission Note Aristeo Corrales,? a 67 year-old male was presented to [facility] ED from [facility] in [place] with chief complaint of decompensating and escalating behavior secondary to non medication compliant. Patient is known to our facility from his past admission. He arrived on? S #1 unit at 2230 on Section-12- B with admitting diagnosis of Unspecified Depressive Disorder. Patient has a diagnosis of? HIV disease, Iatrogenic hypotension, underweight, and dementia. Patient is Alert & Oriented to self only. Thought content paranoid and thought process nonsensical. He was not able to comply with the admission process. Impaired mobility he was only able to pivot from stretcher to bed with two assists. He is currently a bed bound patient. Fully dependent on ADL care. Patient has a Baeza catheter with 200 ml of urine in the bag. Skin assessment completed with no issues observed. VSS. Labs results from [facility] are unremarkable, Med rec completed, approved, and MAR is active. Patient is compliant with his HS medication and took them crushed with ice cream. Mood and affect flat.? Patient was unable to comprehend a statement of understanding regarding valuables and human rights, hence couldn?t sign. Moreover, he was not able to comprehend and sign a safety tool and treatment plan. Patient is on a 5 minute check due to high risk fall. .?
[2023-10-01 08:00] VITALS: BP 111/86; PULSE 128; RESP 18; TEMP 36.4; O2SAT 94
[2023-10-01 08:28] VITALS: BP 111/86
[2023-10-01] MEDS: OLANZapine 5 MG TABLET PO ×2 (08:28→13:55)
[2023-10-01] MEDS: amLODIPine Besylate 5 MG TABLET PO (08:28)
[2023-10-01] MEDS: HaloperidoL 5 MG TABLET PO ×2 (08:28→20:00)
[2023-10-01] MEDS: levETIRAcetam 500 MG TABLET PO ×2 (08:28→20:01)
[2023-10-01] MEDS: Divalproex Sodium 250 MG TABLET.DR PO (08:28)
[2023-10-01] MEDS: Thiamine HCL 100 MG TABLET PO (08:28)
--- NOTE | 2023-10-01 09:06 | HO.PM.IMCN ---
History of Present Illness Data of Consult Service Date: 10/01/23 Requesting physician: Donnie Hua Primary Care Provider: Unknown Physician HPI Reason for consult: medical H&P 67 year old male with history of HIV on HAART, unspecified dementia, history of hepatitis C, protein calorie malnutrition admitted to geriatric psychiatry from [facility] with consult placed to hospitalist service for medical H&P. The patient has indwelling barker in place, unclear who placed the barker and for what reason. There is no documentation in [facility] or [facility] (per RN report) about barker. The patient is pleasantly demented and is a poor historian. He is sitting up in bed, tangential thought process, but denies complaints. At [facility] CBC, BMP WNL. EKG showed sinus tach rate 129 without acute ischemic changes. Review of Systems Review of Systems: General: No fevers, malaise, unintentional weight loss HEENT: No blurred vision, diplopia. No sore throat, nasal congestion, rhinorrhea, sinus pain, ear pain Cardiovascular: No chest pain, palpitations, or leg edema Respiratory: No shortness of breath, wheezing, cough GI: No abdominal pain, nausea, vomiting, diarrhea, constipation, melena, hematochezia : No dysuria, hematuria, increased urinary frequency, decreased urinary output MSK: No myalgia, back pain Neuro: No headaches, weakness, paresthesias Skin: No rashes or lesions [facility] Medical History Dementia HIV (human immunodeficiency virus infection) Bipolar 1 disorder Hepatitis C Liver failure HTN (hypertension) Social History Household Members: None Household Members Other:: [facility] [phone] Housing: Other Housing Other:: long term Do you presently have visiting nurse or other home services: No Unable to assess alcohol history related to: Unknown Patient Tobacco Use Status: Never used Tobacco e-Cigarette/Vaping Use: Never Used Substance Use Type: Unknown Advance Directives: No Advance Directives Information Provided: No Advance Directives Date on File: 04/18/17 Do you have a plan to hurt others: No Plan Recently lost weight without trying: Unsure service: No Current occupational status: disabled Sexual orientation: Straight/Heterosexual Meds Allergies Allergy/AdvReac Type Severity Reaction Status Date / Time No Known Allergies Allergy Unverified 01/28/20 16:07 [No Known Allergies*] Active Medications: Current Medications Acetaminophen (Acetaminophen 325 Mg Tablet) 650 mg PO Q6H PRN PRN Reason: Headache/Pain Mild Scale (1-3) Acetaminophen (Acetaminophen 325 Mg Tablet) 650 mg PO Q6H PRN PRN Reason: Pain (Scale Score 1-3) Al Hydroxide/Mg Hydroxide (Magnesium Hydrox/Alum Hydrox 30 Ml Oral.Susp) 30 ml PO Q6H PRN PRN Reason: Heartburn/Nausea Albuterol Sulfate (Albuterol Sulfate 90 Mcg 8 Gm Inhaler) 2 puff INHALE RQ4H PRN PRN Reason: Wheezing Amlodipine Besylate (Amlodipine Besylate 5 Mg Tablet) 5 mg PO DAILY [facility]; Protocol Last Admin: 10/01/23 08:28 Dose: 5 mg Divalproex Sodium (Divalproex Sodium 250 Mg Tablet.Dr) 250 mg PO TID [facility] Last Admin: 10/01/23 08:28 Dose: 250 mg Haloperidol (Haloperidol 5 Mg Tablet) 5 mg PO BID [facility] Last Admin: 10/01/23 08:28 Dose: 5 mg Haloperidol Decanoate (Haloperidol Decanoate 50 Mg/Ml Vial) 100 mg IM Q28D [facility] Levetiracetam (Levetiracetam 500 Mg Tablet) 500 mg PO BID [facility] Last Admin: 10/01/23 08:28 Dose: 500 mg Lorazepam (Lorazepam 1 Mg Tablet) 1 mg PO QID PRN PRN Reason: Anxiety Magnesium Hydroxide (Milk Of Magnesia 30 Ml Oral.Susp) 30 ml PO DAILY PRN PRN Reason: Constipation Mirtazapine (Mirtazapine 15 Mg Tablet) 15 mg PO BEDTIME [facility] Last Admin: 09/30/23 22:15 Dose: 15 mg Nicotine Polacrilex (Nicotine Polacrilex 2 Mg Gum) 4 mg BUCCAL Q2H PRN PRN Reason: Nicotine Cravings Non-Formulary Medication (Wreqdaptea-Ykwvkqnq-Vacspr Ala [Odefsey]) 1 tab PO DAILY [facility] Olanzapine (Olanzapine 5 Mg Tablet) 5 mg PO BID@0800,1400 [facility] Last Admin: 10/01/23 08:28 Dose: 5 mg Olanzapine (Olanzapine 10 Mg Tablet) 10 mg PO BEDTIME [facility] Last Admin: 09/30/23 22:15 Dose: 10 mg Polyethylene Glycol (Polyethylene Glycol 3350 17 Gm Powd.Pack) 17 gm PO DAILY PRN PRN Reason: Constipation Thiamine HCl (Thiamine Hcl 100 Mg Tablet) 100 mg PO DAILY [facility] Last Admin: 10/01/23 08:28 Dose: 100 mg Trazodone HCl (Trazodone Hcl 50 Mg Tablet) 50 mg PO BEDTIME MRX1 PRN PRN Reason: Insomnia Home Medications ?Medication ?Instructions ?Recorded ?Confirmed ?Last Taken ?Type albuterol sulfate 90 mcg/actuation 2 puff inhalation Q4H PRN Wheezing 07/25/23 09/30/23 09/30/23 10:00 History aerosol inhaler olanzapine 5 mg tablet 5 mg PO BID@0800,1400 07/25/23 09/30/23 09/30/23 14:00 History amlodipine 5 mg tablet 5 mg PO DAILY 07/26/23 09/30/23 09/30/23 History lorazepam 1 mg tablet 1 mg PO QID PRN Anxiety 09/30/23 09/30/23 Unknown History Physical Exam Vital Signs and Narrative: Vital Signs: Last Vital Signs Temp 97.6 F 10/01/23 08:00 Pulse 128 H 10/01/23 08:00 Resp 18 10/01/23 08:00 BP 111/86 10/01/23 08:28 Pulse Ox 94 10/01/23 08:00 O2 Del Method Room Air 10/01/23 08:00 BMI result Body Mass Index 17.1 Constitutional - Awake and Alert, No apparent distress Eyes - PERRLA, EOMI Cardiovascular - S1S2, RRR, No edema Respiratory - Normal lung expansion, Normal respiratory effort, No respiratory distress, CTA bilaterally Gastrointestinal - NT / ND; +BS; No rebound or guarding - No CVA tenderness Extremities - no calf tenderness bilaterally, no swelling Skin - Warm/Dry Neurological - Alert & oriented x3, CN II-XII in tact, 5/5 strength BUE and BLE Assessment and Plan (1) Routine medical exam: Status: Acute Plan 67 year old male with history of HIV on HAART, unspecified dementia, history of hepatitis C, protein calorie malnutrition admitted to geriatric psychiatry from [facility] with consult placed to hospitalist service for medical H&P. #Dementia/mood -continue home meds, plan per psychiatry #HIV -has been compliant with HAART, continue -unclear who his ID provider is #Protein calorie malnutrition -nutrition consult #Indwelling barker catheter -unable to find any documentation reagrding why pt has barker -recommend contacting SNF and [facility] ED as to why patient has barker Thank you for allowing me to participate in this consult. Signing off at this time. Please do not hesitate to call for further questions or for any acute medical issues
--- NOTE | 2023-10-01 12:27 | P.HPPS_ITS ---
HPI Date of Service: 10/01/23 Chief Complaint: F32.9 Sources of Information: patient interviewed, chart reviewed and crisis/core team assessment reviewed HPI Subjective Notes: Milo Grover Order and Section 12B Healthcare Proxy: Yes Guardianship: Yes Narrative: The patient is a 67-year-old male, chronically mentally ill with schizoaffective disorder bipolar type, very well known by this team since he had been admitted before several times with a similar presentation. The patient has [facility] involvement and he had been living in assisted living facility. The patient was assessed at the emergency room of another hospital since he became noncompliant with medications and relapse on his psychotic behavior and manic mood. Crisis assess him and transferring to this facility for psychiatric stabilization. On interview the patient was very pleasant, internally preoccupied watching TV unable to follow a full interview. He states that he is taking his medications, he denies hallucinations or delusions but his thought process was tangential, illogical at times. He was able to contract for safety. We will try to gather more collateral information we will continue with his regular medications and we will reassess. We have change his Depakote to Depakote Sprinkles since the patient can not swallow big pills. Past Psychiatric History: Inpatient: S1 05/2023, multiple in the past. Last admission on July 2023 here -Current medication: Haldol Dec 50 mg Q28 days, olanzapine 20 mg QHS, remeron 15 mg QHS. Jass?s order: haldol dec 25 mg IM Qmo, zyprexa 20 mg QD, haldol 1.5 mg BID PRN. Alternatives risperdal/ risperdal consta up to 8 mg QD/ 50 mg [id number] and seroquel up to Medical Evaluation Reviewed: Yes [facility] Medical History Dementia HIV (human immunodeficiency virus infection) Bipolar 1 disorder Hepatitis C Liver failure HTN (hypertension) Family History: Denies Social History: -Aristeo currently resides at [facility] in [place]. -Per chart, pt was born in [facility]. He has 8 brothers and 2 sisters. He is a , no children. [facility] staff reported that Aristeo has had no visitors since he has been there. Substance History: Past remote history of substance abuse Trauma History: unknown Diagnostics Vital Signs (24Hr): Vital Signs - 24 hr 09/30/23 21:33 10/01/23 08:00 10/01/23 08:28 Temperature 97.4 F 97.6 F Pulse Rate 105 H 128 H Respiratory Rate 17 18 Blood Pressure 144/95 H 111/86 111/86 Pulse Oximetry 96 94 Oxygen Delivery Method Room Air Room Air BMI result Body Mass Index 17.1 Meds/Allergies Meds Home Medications ?Medication ?Instructions ?Recorded ?Confirmed ?Type albuterol sulfate 90 mcg/actuation 2 puff inhalation Q4H PRN Wheezing 07/25/23 09/30/23 History aerosol inhaler olanzapine 5 mg tablet 5 mg PO BID@0800,1400 07/25/23 09/30/23 History amlodipine 5 mg tablet 5 mg PO DAILY 07/26/23 09/30/23 History lorazepam 1 mg tablet 1 mg PO QID PRN Anxiety 09/30/23 09/30/23 History Allergies Allergies Allergy/AdvReac Type Severity Reaction Status Date / Time No Known Allergies Allergy Unverified 01/28/20 16:07 [No Known Allergies*] Mental Status Exam Mental Status Exam Patient Appearance: Appropriate (On hospital gowns) and Unkempt Patient Orientation: Person and Situation Level of Consciousness: Awake and Disoriented Patient Behavior: Guarded and Passive Mood Description: Withdrawn Affect Description: Labile Patient Cognition Impaired: Yes Ability to Follow Directions: Fair Speech Pattern: Impoverished Hallucinations: None Delusions: Paranoid Ideation and Grandiose Thought Process: Incoherent, Illogical and Distracted Thought Content: positive for Poverty of Content and positive for Thought Blocking Judgement: Poor Assessment & Plan Assessment & Plan (1) Schizoaffective disorder, bipolar type: Status: Acute Code(s): F25.0 - Schizoaffective disorder, bipolar type (2) Dementia: Status: Acute Code(s): F03.90 - Unspecified dementia, unspecified severity, without behavioral disturbance, psychotic disturbance, mood disturbance, and anxiety (3) Noncompliance: Status: Acute Code(s): Z91.199 - Patient's noncompliance with other medical treatment and regimen due to unspecified reason Plan The patient is an elderly male with a past history of schizoaffective disorder, dementia, HIV and other medical problems, chronically mentally ill resident of assisted living facility referred to this facility after he became non compliant with medications with daniella and psychosis. The patient was assessed by crisis and transferring to this facility for psychiatric stabilization. At the moment of the interview the patient was able to contract for safety. Plan 1. Gather collateral information. 2. Continue with regular medications, we are not going to change his Depakote, olanzapine and Haldol Decanoate. 3. Reassessment with results. 4. 15 minutes checks since the patient is able to contract for safety Patient educated on: diagnosis and therapeutic strategies Informed Consent: further education needed Reason for continued inpatient stay Substantial Risk for: inability to function, rapid decompensation and med/psych decompensation Statement Statement: I have reviewed the history and physical and performed a pertinent examination on my patient. No changes have occurred unless specified. If the History and Physical was not performed prior to admission, the Hospitalist's service will be consulted for completing the admission physical. Time Spent With Patient Time: Total time managing care of this patient today __45__ minutes.
[2023-10-01] MEDS: Divalproex Sodium Sprinkles 125 MG CAP.DR.SPR 250 MG PO ×2 (15:40→20:00)
[2023-10-01 20:00] VITALS: BP 119/94; PULSE 133; TEMP 36.8; O2SAT 94
[2023-10-01] MEDS: Mirtazapine 15 MG TABLET PO (20:01)
[2023-10-01] MEDS: OLANZapine 10 MG TABLET PO (20:01)
[2023-10-02 08:00] VITALS: BP 135/95; PULSE 130; RESP 18; TEMP 36.2; O2SAT 95
[2023-10-02] MEDS: Divalproex Sodium Sprinkles 125 MG CAP.DR.SPR 250 MG PO ×3 (08:33→19:29)
[2023-10-02] MEDS: OLANZapine 5 MG TABLET PO ×2 (08:33→14:47)
[2023-10-02] MEDS: levETIRAcetam 500 MG TABLET PO ×2 (08:33→19:29)
[2023-10-02 08:34] VITALS: BP 135/95
[2023-10-02] MEDS: amLODIPine Besylate 5 MG TABLET PO (08:34)
[2023-10-02] MEDS: Thiamine HCL 100 MG TABLET PO (08:34)
[2023-10-02] MEDS: HaloperidoL 5 MG TABLET PO ×2 (08:34→19:29)
[2023-10-02 12:37] VITALS: BMI 16.6
--- NOTE | 2023-10-02 12:51 | MHC.CLN ---
NUTRITION DIET=REGULAR. ADDING ENSURE TID TO INCREASE KCALS/NUTRITION. SUPPLEMENT PROVIDES 1050 KCALS, 60 G PROTEIN. QUALIFIES SEVERELY MALNOURISHED IN THE CONTEXT OF CHRONIC ILLNESS. PROVIDE ADDITIONAL SNACKS/SUPPLEMENTS FROM UNIT KITCHEN DESIRED. FOLLOW FOR INTAKE OF MEALS AND SUPPLEMENT. SEE CLINICAL NUTRITION ASSESSMENT 10/02/23.
--- NOTE | 2023-10-02 15:14 | HO.PSYCHPN ---
Subjective Subjective Date of Service: 10/02/23 Reason For Visit: F32.9 Subjective Notes: Conditional Voluntary Interim History: The nursing staff reported the patient had being pleasantly confused, watching TV most of the time, internally preoccupied. He remains grandiose but compliant with treatment. On interview the patient denies new symptoms, easily redirectable. Mental Status Exam Mental Status Exam Patient Appearance: Appropriate (On hospital gowns) Patient Orientation: Person Level of Consciousness: Awake Patient Behavior: Guarded and Passive Mood Description: Withdrawn Affect Description: Labile Patient Cognition Impaired: Yes Ability to Follow Directions: Fair Speech Pattern: Impoverished, Garbled and Rapid Hallucinations: Auditory Delusions: Paranoid Ideation and Grandiose Thought Process: Incoherent and Illogical Thought Content: positive for [place] and positive for Poverty of Content Judgement: Poor Diagnostics Vital Signs (24Hr): Vital Signs - 24 hr 10/01/23 20:00 10/02/23 08:00 10/02/23 08:34 Temperature 98.2 F 97.1 F Pulse Rate 133 H 130 H Respiratory Rate 18 Blood Pressure 119/94 H 135/95 H 135/95 H Pulse Oximetry 94 95 Oxygen Delivery Method Room Air Room Air BMI result Body Mass Index 16.6 Medications Medications Current Medications Acetaminophen (Acetaminophen 325 Mg Tablet) 650 mg PO Q6H PRN PRN Reason: Headache/Pain Mild Scale (1-3) Acetaminophen (Acetaminophen 325 Mg Tablet) 650 mg PO Q6H PRN PRN Reason: Pain (Scale Score 1-3) Al Hydroxide/Mg Hydroxide (Magnesium Hydrox/Alum Hydrox 30 Ml Oral.Susp) 30 ml PO Q6H PRN PRN Reason: Heartburn/Nausea Albuterol Sulfate (Albuterol Sulfate 90 Mcg 8 Gm Inhaler) 2 puff INHALE RQ4H PRN PRN Reason: Wheezing Amlodipine Besylate (Amlodipine Besylate 5 Mg Tablet) 5 mg PO DAILY [facility]; Protocol Last Admin: 10/02/23 08:34 Dose: 5 mg Divalproex Sodium (Divalproex Sodium Sprinkles 125 Mg ) 250 mg PO TID [facility] Last Admin: 10/02/23 14:47 Dose: 250 mg Haloperidol (Haloperidol 5 Mg Tablet) 5 mg PO BID [facility] Last Admin: 10/02/23 08:34 Dose: 5 mg Haloperidol Decanoate (Haloperidol Decanoate 50 Mg/Ml Vial) 100 mg IM Q28D [facility] Levetiracetam (Levetiracetam 500 Mg Tablet) 500 mg PO BID [facility] Last Admin: 10/02/23 08:33 Dose: 500 mg Lorazepam (Lorazepam 1 Mg Tablet) 1 mg PO QID PRN PRN Reason: Anxiety Magnesium Hydroxide (Milk Of Magnesia 30 Ml Oral.Susp) 30 ml PO DAILY PRN PRN Reason: Constipation Mirtazapine (Mirtazapine 15 Mg Tablet) 15 mg PO BEDTIME [facility] Last Admin: 10/01/23 20:01 Dose: 15 mg Nicotine Polacrilex (Nicotine Polacrilex 2 Mg Gum) 4 mg BUCCAL Q2H PRN PRN Reason: Nicotine Cravings Non-Formulary Medication (Tswgcqbmjs-Zwrmmeva-Fhaosa Ala [Odefsey]) 1 tab PO DAILY [facility] Olanzapine (Olanzapine 5 Mg Tablet) 5 mg PO BID@0800,1400 [facility] Last Admin: 10/02/23 14:47 Dose: 5 mg Olanzapine (Olanzapine 10 Mg Tablet) 10 mg PO BEDTIME [facility] Last Admin: 10/01/23 20:01 Dose: 10 mg Polyethylene Glycol (Polyethylene Glycol 3350 17 Gm Powd.Pack) 17 gm PO DAILY PRN PRN Reason: Constipation Thiamine HCl (Thiamine Hcl 100 Mg Tablet) 100 mg PO DAILY [facility] Last Admin: 10/02/23 08:34 Dose: 100 mg Trazodone HCl (Trazodone Hcl 50 Mg Tablet) 50 mg PO BEDTIME MRX1 PRN PRN Reason: Insomnia Allergies Allergies Allergy/AdvReac Type Severity Reaction Status Date / Time No Known Allergies Allergy Unverified 01/28/20 16:07 [No Known Allergies*] Assessment & Plan Assessment & Plan (1) Schizoaffective disorder, bipolar type: Status: Acute Code(s): F25.0 - Schizoaffective disorder, bipolar type (2) Dementia: Status: Acute Code(s): F03.90 - Unspecified dementia, unspecified severity, without behavioral disturbance, psychotic disturbance, mood disturbance, and anxiety (3) Noncompliance: Status: Acute Code(s): Z91.199 - Patient's noncompliance with other medical treatment and regimen due to unspecified reason Plan The patient is an elderly male with a past history of schizoaffective disorder, dementia, HIV and other medical problems, chronically mentally ill resident of assisted living facility referred to this facility after he became non compliant with medications with daniella and psychosis. The patient was assessed by crisis and transferring to this facility for psychiatric stabilization. At the moment of the interview the patient was able to contract for safety. Plan 1. Gather collateral information. 2. Continue with regular medications, we are not going to change his Depakote, olanzapine and Haldol Decanoate. 3. Reassessment with results. 4. 15 minutes checks since the patient is able to contract for safety Reason for continued inpatient stay Substantial Risk for: inability to function, rapid decompensation and med/psych decompensation Time Spent With Patient Time: Total time managing care of this patient today __20__ minutes.
[2023-10-02] MEDS: OLANZapine 10 MG TABLET PO (19:29)
[2023-10-02] MEDS: Mirtazapine 15 MG TABLET PO (19:29)
[2023-10-02] MEDS: traZODone HCL 50 MG TABLET PO (19:34)
[2023-10-02 20:00] VITALS: BP 112/70; PULSE 124; TEMP 35.9; O2SAT 95
[2023-10-03] MEDS: LORazepam 1 MG TABLET PO (02:25)
[2023-10-03 07:00] VITALS: BMI 17.0
[2023-10-03 08:00] VITALS: BP 122/69; PULSE 120; RESP 18; TEMP 36.3; O2SAT 94
[2023-10-03] MEDS: OLANZapine 5 MG TABLET PO (08:32)
[2023-10-03] MEDS: levETIRAcetam 500 MG TABLET PO (08:32)
[2023-10-03] MEDS: Divalproex Sodium Sprinkles 125 MG CAP.DR.SPR 250 MG PO ×2 (08:32→14:56)
[2023-10-03] MEDS: Thiamine HCL 100 MG TABLET PO (08:32)
[2023-10-03] MEDS: HaloperidoL 5 MG TABLET PO ×2 (08:32→22:57)
[2023-10-03 08:33] VITALS: BP 122/69
[2023-10-03] MEDS: amLODIPine Besylate 5 MG TABLET PO (08:33)
--- NOTE | 2023-10-03 13:51 | HO.PSYCHPN ---
Subjective Subjective Date of Service: 10/03/23 Reason For Visit: F32.9 Subjective Notes: Conditional Voluntary Interim History: The nursing staff reported the patient had slept poorly last night he had been nonsensical he had been seen eating toothpaste. He had been compliant with medications. Today the staff of the facility that he lives states that he has an expert on cheeking his medications. On interview the patient remains pleasantly confused. Mental Status Exam Mental Status Exam Patient Appearance: Appropriate Patient Orientation: Person and Situation Level of Consciousness: Awake and Appropriate Patient Behavior: Guarded Mood Description: Withdrawn Affect Description: Constricted Patient Cognition Impaired: Yes Ability to Follow Directions: Good Speech Pattern: Clear Hallucinations: Auditory Delusions: Paranoid Ideation and Grandiose Thought Process: Incoherent, Illogical, Distracted and Slowed Thinking Thought Content: positive for Poverty of Content, positive for Loose Associations, positive for Thought Blocking and positive for Disorganized Judgement: Poor Diagnostics Vital Signs (24Hr): Vital Signs - 24 hr 10/02/23 20:00 10/03/23 08:00 10/03/23 08:33 Temperature 96.6 F L 97.4 F Pulse Rate 124 H 120 H Respiratory Rate 18 Blood Pressure 112/70 122/69 122/69 Pulse Oximetry 95 94 Oxygen Delivery Method Room Air Room Air BMI result Body Mass Index 16.6 Medications Medications Current Medications Acetaminophen (Acetaminophen 325 Mg Tablet) 650 mg PO Q6H PRN PRN Reason: Headache/Pain Mild Scale (1-3) Acetaminophen (Acetaminophen 325 Mg Tablet) 650 mg PO Q6H PRN PRN Reason: Pain (Scale Score 1-3) Al Hydroxide/Mg Hydroxide (Magnesium Hydrox/Alum Hydrox 30 Ml Oral.Susp) 30 ml PO Q6H PRN PRN Reason: Heartburn/Nausea Albuterol Sulfate (Albuterol Sulfate 90 Mcg 8 Gm Inhaler) 2 puff INHALE RQ4H PRN PRN Reason: Wheezing Amlodipine Besylate (Amlodipine Besylate 5 Mg Tablet) 5 mg PO DAILY [facility]; Protocol Last Admin: 10/03/23 08:33 Dose: 5 mg Divalproex Sodium (Divalproex Sodium Sprinkles 125 Mg ) 250 mg PO TID [facility] Last Admin: 10/03/23 08:32 Dose: 250 mg Emtricitabine/Tenofovir (Emtricitabin/Tenofovir 200/300 Tablet) 1 tab PO DAILY [facility] Haloperidol (Haloperidol 5 Mg Tablet) 5 mg PO BID [facility] Last Admin: 10/03/23 08:32 Dose: 5 mg Haloperidol Decanoate (Haloperidol Decanoate 50 Mg/Ml Vial) 100 mg IM Q28D [facility] Levetiracetam (Levetiracetam 500 Mg Tablet) 500 mg PO BID [facility] Last Admin: 10/03/23 08:32 Dose: 500 mg Lorazepam (Lorazepam 1 Mg Tablet) 1 mg PO QID PRN PRN Reason: Anxiety Last Admin: 10/03/23 02:25 Dose: 1 mg Magnesium Hydroxide (Milk Of Magnesia 30 Ml Oral.Susp) 30 ml PO DAILY PRN PRN Reason: Constipation Mirtazapine (Mirtazapine 15 Mg Tablet) 15 mg PO BEDTIME [facility] Last Admin: 10/02/23 19:29 Dose: 15 mg Nicotine Polacrilex (Nicotine Polacrilex 2 Mg Gum) 4 mg BUCCAL Q2H PRN PRN Reason: Nicotine Cravings Olanzapine (Olanzapine 5 Mg Tablet) 5 mg PO BID@0800,1400 [facility] Last Admin: 10/03/23 08:32 Dose: 5 mg Olanzapine (Olanzapine 10 Mg Tablet) 10 mg PO BEDTIME [facility] Last Admin: 10/02/23 19:29 Dose: 10 mg Polyethylene Glycol (Polyethylene Glycol 3350 17 Gm Powd.Pack) 17 gm PO DAILY PRN PRN Reason: Constipation Rilpivirine (Rilpivirine Hcl 25 Mg Tablet) 25 mg PO DAILY [facility] Thiamine HCl (Thiamine Hcl 100 Mg Tablet) 100 mg PO DAILY [facility] Last Admin: 10/03/23 08:32 Dose: 100 mg Trazodone HCl (Trazodone Hcl 50 Mg Tablet) 50 mg PO BEDTIME MRX1 PRN PRN Reason: Insomnia Last Admin: 10/02/23 19:34 Dose: 50 mg Allergies Allergies Allergy/AdvReac Type Severity Reaction Status Date / Time No Known Allergies Allergy Unverified 01/28/20 16:07 [No Known Allergies*] Assessment & Plan Assessment & Plan (1) Schizoaffective disorder, bipolar type: Status: Acute Code(s): F25.0 - Schizoaffective disorder, bipolar type (2) Dementia: Status: Acute Code(s): F03.90 - Unspecified dementia, unspecified severity, without behavioral disturbance, psychotic disturbance, mood disturbance, and anxiety (3) Noncompliance: Status: Acute Code(s): Z91.199 - Patient's noncompliance with other medical treatment and regimen due to unspecified reason Plan The patient is an elderly male with a past history of schizoaffective disorder, dementia, HIV and other medical problems, chronically mentally ill resident of assisted living facility referred to this facility after he became non compliant with medications with daniella and psychosis. The patient was assessed by crisis and transferring to this facility for psychiatric stabilization. At the moment of the interview the patient was able to contract for safety. Plan 1. Gather collateral information. 2. Continue with regular medications, we are not going to change his Depakote, olanzapine and Haldol Decanoate. 3. Reassessment with results. 4. 15 minutes checks since the patient is able to contract for safety. 5. Change Zyprexa to Zydis to avoid cheeking on October 02. Reason for continued inpatient stay Substantial Risk for: inability to function, rapid decompensation and med/psych decompensation Time Spent With Patient Time: Total time managing care of this patient today __20__ minutes.
[2023-10-03] MEDS: OLANZapine ODT 10 MG TAB.RAPDIS 5 MG TRANSLINGU (14:56)
[2023-10-03] MEDS: Rilpivirine HCL 25 MG TABLET PO (14:56)
[2023-10-03] MEDS: Emtricitabin/Tenofovir 200/300 TABLET 1 TAB PO (14:57)
[2023-10-03 20:00] VITALS: BP 109/76; PULSE 108; RESP 18; TEMP 35.9; O2SAT 95
[2023-10-03] MEDS: OLANZapine ODT 10 MG TAB.RAPDIS TRANSLINGU ×2 (21:17→22:57)
[2023-10-03] MEDS: Mirtazapine 15 MG TABLET PO (22:56)
[2023-10-03] MEDS: Acetaminophen 325 MG TABLET 650 MG PO (23:02)
[2023-10-04 08:00] VITALS: BP 118/61; PULSE 124; RESP 18; TEMP 37.2; O2SAT 94
[2023-10-04] MEDS: Thiamine HCL 100 MG TABLET PO (08:20)
[2023-10-04] MEDS: Divalproex Sodium Sprinkles 125 MG CAP.DR.SPR 250 MG PO ×3 (08:20→20:27)
[2023-10-04 08:23] VITALS: BP 118/61
[2023-10-04] MEDS: amLODIPine Besylate 5 MG TABLET PO (08:23)
[2023-10-04] MEDS: Rilpivirine HCL 25 MG TABLET PO (08:23)
[2023-10-04] MEDS: HaloperidoL 5 MG TABLET PO ×2 (08:24→21:00)
[2023-10-04] MEDS: levETIRAcetam 500 MG TABLET PO ×2 (08:24→20:28)
[2023-10-04] MEDS: Emtricitabin/Tenofovir 200/300 TABLET 1 TAB PO (08:24)
[2023-10-04] MEDS: OLANZapine ODT 10 MG TAB.RAPDIS 5 MG TRANSLINGU (08:24)
--- NOTE | 2023-10-04 11:26 | MHC.CLN ---
F/U DIET=REGULAR. ENSURE TID TO INCREASE KCALS/NUTRITION. SUPPLEMENT PROVIDES 1050 KCALS, 60 G PROTEIN. INTAKE AT MEALS 0-50% WITH MOST MEALS 25% OR LESS. PROVIDE ADDITIONAL SNACKS/SUPPLEMENTS FROM UNIT KITCHEN DESIRED. FOLLOW FOR INTAKE OF MEALS AND SUPPLEMENT.
[2023-10-04] MEDS: OLANZapine 5 MG TABLET PO (14:43)
--- NOTE | 2023-10-04 14:44 | P.PNPSI_ITS ---
Subjective Subjective Date of Service: 10/04/23 Reason For Visit: F32.9 Subjective Notes: Section 12B Interim History: The nursing staff reported the patient had been visible in the unit compliant with treatment with encouragement. The staff of his assisted living facility reported the patient had been cheeking but he is accepting treatment without any concerns at this moment so we are changing the Zyprexa back. On interview the patient is confused but pleasant. Grossly disorganized but easily redirectable. Mental Status Exam Mental Status Exam Patient Appearance: Unkempt Patient Orientation: Person Level of Consciousness: Awake Patient Behavior: Cooperative Mood Description: Calm Affect Description: Labile and Blunted Patient Cognition Impaired: Yes Ability to Follow Directions: Good Speech Pattern: Clear Hallucinations: Auditory Delusions: Ideas of Reference Thought Process: Distracted and Slowed Thinking Thought Content: positive for [place] and positive for Poverty of Content Judgement: Poor Diagnostics Vital Signs (24Hr): Vital Signs - 24 hr 10/03/23 20:00 10/04/23 08:00 10/04/23 08:23 Temperature 96.7 F L 99 F Pulse Rate 108 H 124 H Respiratory Rate 18 18 Blood Pressure 109/76 118/61 118/61 Pulse Oximetry 95 94 Oxygen Delivery Method Room Air Room Air BMI result Body Mass Index 17.0 Medications Medications Current Medications Acetaminophen (Acetaminophen 325 Mg Tablet) 650 mg PO Q6H PRN PRN Reason: Headache/Pain Mild Scale (1-3) Last Admin: 10/03/23 23:02 Dose: 650 mg Acetaminophen (Acetaminophen 325 Mg Tablet) 650 mg PO Q6H PRN PRN Reason: Pain (Scale Score 1-3) Al Hydroxide/Mg Hydroxide (Magnesium Hydrox/Alum Hydrox 30 Ml Oral.Susp) 30 ml PO Q6H PRN PRN Reason: Heartburn/Nausea Albuterol Sulfate (Albuterol Sulfate 90 Mcg 8 Gm Inhaler) 2 puff INHALE RQ4H PRN PRN Reason: Wheezing Amlodipine Besylate (Amlodipine Besylate 5 Mg Tablet) 5 mg PO DAILY [facility]; Protocol Last Admin: 10/04/23 08:23 Dose: 5 mg Divalproex Sodium (Divalproex Sodium Sprinkles 125 Mg ) 250 mg PO TID [facility] Last Admin: 10/04/23 08:20 Dose: 250 mg Emtricitabine/Tenofovir (Emtricitabin/Tenofovir 200/300 Tablet) 1 tab PO DAILY [facility] Last Admin: 10/04/23 08:24 Dose: 1 tab Haloperidol (Haloperidol 5 Mg Tablet) 5 mg PO BID [facility] Last Admin: 10/04/23 08:24 Dose: 5 mg Haloperidol Decanoate (Haloperidol Decanoate 50 Mg/Ml Vial) 100 mg IM Q28D [facility] Levetiracetam (Levetiracetam 500 Mg Tablet) 500 mg PO BID [facility] Last Admin: 10/04/23 08:24 Dose: 500 mg Lorazepam (Lorazepam 1 Mg Tablet) 1 mg PO QID PRN PRN Reason: Anxiety Last Admin: 10/03/23 02:25 Dose: 1 mg Magnesium Hydroxide (Milk Of Magnesia 30 Ml Oral.Susp) 30 ml PO DAILY PRN PRN Reason: Constipation Mirtazapine (Mirtazapine 15 Mg Tablet) 15 mg PO BEDTIME [facility] Last Admin: 10/03/23 22:56 Dose: 15 mg Nicotine Polacrilex (Nicotine Polacrilex 2 Mg Gum) 4 mg BUCCAL Q2H PRN PRN Reason: Nicotine Cravings Olanzapine (Olanzapine 5 Mg Tablet) 5 mg PO BID@0800,1500 [facility] Olanzapine (Olanzapine 10 Mg Tablet) 10 mg PO BEDTIME [facility] Polyethylene Glycol (Polyethylene Glycol 3350 17 Gm Powd.Pack) 17 gm PO DAILY PRN PRN Reason: Constipation Rilpivirine (Rilpivirine Hcl 25 Mg Tablet) 25 mg PO DAILY [facility] Last Admin: 10/04/23 08:23 Dose: 25 mg Thiamine HCl (Thiamine Hcl 100 Mg Tablet) 100 mg PO DAILY [facility] Last Admin: 10/04/23 08:20 Dose: 100 mg Trazodone HCl (Trazodone Hcl 50 Mg Tablet) 50 mg PO BEDTIME MRX1 PRN PRN Reason: Insomnia Last Admin: 10/02/23 19:34 Dose: 50 mg Allergies Allergies Allergy/AdvReac Type Severity Reaction Status Date / Time No Known Allergies Allergy Unverified 01/28/20 16:07 [No Known Allergies*] Assessment & Plan Assessment & Plan (1) Schizoaffective disorder, bipolar type: Status: Acute Code(s): F25.0 - Schizoaffective disorder, bipolar type (2) Dementia: Status: Acute Code(s): F03.90 - Unspecified dementia, unspecified severity, without behavioral disturbance, psychotic disturbance, mood disturbance, and anxiety (3) Noncompliance: Status: Acute Code(s): Z91.199 - Patient's noncompliance with other medical treatment and regimen due to unspecified reason Plan The patient is an elderly male with a past history of schizoaffective disorder, dementia, HIV and other medical problems, chronically mentally ill resident of assisted living facility referred to this facility after he became non compliant with medications with daniella and psychosis. The patient was assessed by crisis and transferring to this facility for psychiatric stabilization. At the moment of the interview the patient was able to contract for safety. Plan 1. Gather collateral information. 2. Continue with regular medications, we are not going to change his Depakote, olanzapine and Haldol Decanoate. 3. Reassessment with results. 4. 15 minutes checks since the patient is able to contract for safety. 5. Change Zyprexa to Zydis to avoid cheeking on October 02. Reason for continued inpatient stay Substantial Risk for: inability to function, rapid decompensation and med/psych decompensation Time Spent With Patient Time: Total time managing care of this patient today __20__ minutes.
[2023-10-04 20:00] VITALS: BP 127/67; PULSE 120; RESP 16; TEMP 36.3; O2SAT 96
[2023-10-04] MEDS: Mirtazapine 15 MG TABLET PO (20:28)
[2023-10-04] MEDS: LORazepam 1 MG TABLET PO (20:28)
[2023-10-04] MEDS: OLANZapine 10 MG TABLET PO (20:30)
[2023-10-05] MEDS: Emtricitabin/Tenofovir 200/300 TABLET 1 TAB PO (09:23)
[2023-10-05] MEDS: Divalproex Sodium Sprinkles 125 MG CAP.DR.SPR 250 MG PO ×2 (09:23→21:00)
[2023-10-05] MEDS: levETIRAcetam 500 MG TABLET PO ×2 (09:23→21:00)
[2023-10-05] MEDS: Rilpivirine HCL 25 MG TABLET PO (09:24)
[2023-10-05] MEDS: HaloperidoL 5 MG TABLET PO ×2 (09:24→21:00)
[2023-10-05] MEDS: Thiamine HCL 100 MG TABLET PO (09:24)
[2023-10-05] MEDS: OLANZapine 5 MG TABLET PO (09:24)
[2023-10-05 10:07] VITALS: BP 122/68; PULSE 104; RESP 18; TEMP 36.8; O2SAT 96
--- NOTE | 2023-10-05 12:40 | P.PNPSI_ITS ---
Subjective Subjective Date of Service: 10/05/23 Reason For Visit: F32.9 Interim History: patient had not been visible in the unit. He is redirectible He is yelling; refused to talk with me, swearing and belligerent Grossly disorganized. Review of Systems Review of Systems General: No fevers, malaise, unintentional weight loss HEENT: No blurred vision, diplopia. No sore throat, nasal congestion, rhinorrhea, sinus pain, ear pain Cardiovascular: No chest pain, palpitations, or leg edema Respiratory: No shortness of breath, wheezing, cough GI: No abdominal pain, nausea, vomiting, diarrhea, constipation, melena, hematochezia : No dysuria, hematuria, increased urinary frequency, decreased urinary output MSK: No myalgia, back pain Neuro: No headaches, weakness, paresthesias Skin: No rashes or lesions Mental Status Exam Mental Status Exam Patient Appearance: Unkempt Patient Orientation: Person Level of Consciousness: Awake Patient Behavior: Belligerent Mood Description: Calm Affect Description: Labile and Blunted Patient Cognition Impaired: Yes Ability to Follow Directions: Good Speech Pattern: Clear Judgement: Poor Diagnostics Vital Signs (24Hr): Vital Signs - 24 hr 10/04/23 20:00 10/05/23 10:07 Temperature 97.4 F 98.2 F Pulse Rate 120 H 104 H Respiratory Rate 16 18 Blood Pressure 127/67 122/68 Pulse Oximetry 96 96 Oxygen Delivery Method Room Air Room Air BMI result Body Mass Index 17.0 Medications Medications Current Medications Acetaminophen (Acetaminophen 325 Mg Tablet) 650 mg PO Q6H PRN PRN Reason: Headache/Pain Mild Scale (1-3) Last Admin: 10/03/23 23:02 Dose: 650 mg Acetaminophen (Acetaminophen 325 Mg Tablet) 650 mg PO Q6H PRN PRN Reason: Pain (Scale Score 1-3) Al Hydroxide/Mg Hydroxide (Magnesium Hydrox/Alum Hydrox 30 Ml Oral.Susp) 30 ml PO Q6H PRN PRN Reason: Heartburn/Nausea Albuterol Sulfate (Albuterol Sulfate 90 Mcg 8 Gm Inhaler) 2 puff INHALE RQ4H PRN PRN Reason: Wheezing Amlodipine Besylate (Amlodipine Besylate 5 Mg Tablet) 5 mg PO DAILY [facility]; Protocol Last Admin: 10/05/23 09:23 Dose: 5 mg Divalproex Sodium (Divalproex Sodium Sprinkles 125 Mg ) 250 mg PO TID [facility] Last Admin: 10/05/23 09:23 Dose: 250 mg Emtricitabine/Tenofovir (Emtricitabin/Tenofovir 200/300 Tablet) 1 tab PO DAILY [facility] Last Admin: 10/05/23 09:23 Dose: 1 tab Haloperidol (Haloperidol 5 Mg Tablet) 5 mg PO BID [facility] Last Admin: 10/05/23 09:24 Dose: 5 mg Haloperidol Decanoate (Haloperidol Decanoate 50 Mg/Ml Vial) 100 mg IM Q28D [facility] Levetiracetam (Levetiracetam 500 Mg Tablet) 500 mg PO BID [facility] Last Admin: 10/05/23 09:23 Dose: 500 mg Lorazepam (Lorazepam 1 Mg Tablet) 1 mg PO QID PRN PRN Reason: Anxiety Last Admin: 10/04/23 20:28 Dose: 1 mg Magnesium Hydroxide (Milk Of Magnesia 30 Ml Oral.Susp) 30 ml PO DAILY PRN PRN Reason: Constipation Mirtazapine (Mirtazapine 15 Mg Tablet) 15 mg PO BEDTIME [facility] Last Admin: 10/04/23 20:28 Dose: 15 mg Nicotine Polacrilex (Nicotine Polacrilex 2 Mg Gum) 4 mg BUCCAL Q2H PRN PRN Reason: Nicotine Cravings Olanzapine (Olanzapine 5 Mg Tablet) 5 mg PO BID@0800,1500 [facility] Last Admin: 10/05/23 09:24 Dose: 5 mg Olanzapine (Olanzapine 10 Mg Tablet) 10 mg PO BEDTIME [facility] Last Admin: 10/04/23 20:30 Dose: 10 mg Polyethylene Glycol (Polyethylene Glycol 3350 17 Gm Powd.Pack) 17 gm PO DAILY PRN PRN Reason: Constipation Rilpivirine (Rilpivirine Hcl 25 Mg Tablet) 25 mg PO DAILY [facility] Last Admin: 10/05/23 09:24 Dose: 25 mg Thiamine HCl (Thiamine Hcl 100 Mg Tablet) 100 mg PO DAILY [facility] Last Admin: 10/05/23 09:24 Dose: 100 mg Trazodone HCl (Trazodone Hcl 50 Mg Tablet) 50 mg PO BEDTIME MRX1 PRN PRN Reason: Insomnia Last Admin: 10/02/23 19:34 Dose: 50 mg Allergies Allergies Allergy/AdvReac Type Severity Reaction Status Date / Time No Known Allergies Allergy Unverified 01/28/20 16:07 [No Known Allergies*] Assessment & Plan Assessment & Plan (1) Schizoaffective disorder, bipolar type: Status: Acute Code(s): F25.0 - Schizoaffective disorder, bipolar type (2) Dementia: Status: Acute Code(s): F03.90 - Unspecified dementia, unspecified severity, without behavioral disturbance, psychotic disturbance, mood disturbance, and anxiety (3) Noncompliance: Status: Acute Code(s): Z91.199 - Patient's noncompliance with other medical treatment and regimen due to unspecified reason Plan The patient is an elderly male with a past history of schizoaffective disorder, dementia, HIV and other medical problems, chronically mentally ill resident of assisted living facility referred to this facility after he became non compliant with medications with daniella and psychosis. The patient was assessed by crisis and transferring to this facility for psychiatric stabilization. At the moment of the interview the patient was able to contract for safety. Plan 1. Gather collateral information. 2. Continue with regular medications, we are not going to change his Depakote, olanzapine and Haldol Decanoate. 3. Reassessment with results. 4. 15 minutes checks since the patient is able to contract for safety. 5. Change Zyprexa to Zydis to avoid cheeking on October 02. 10/04 continue tx Reason for continued inpatient stay Substantial Risk for: inability to function Time Spent With Patient Time: Total time managing care of this patient today ____ minutes.
[2023-10-05 19:57] VITALS: BP 146/83; PULSE 110; RESP 16; TEMP 36.1; O2SAT 97
[2023-10-05] MEDS: Mirtazapine 15 MG TABLET PO (21:00)
[2023-10-05] MEDS: OLANZapine 10 MG TABLET PO (21:00)
[2023-10-06] MEDS: Acetaminophen 325 MG TABLET 650 MG PO (01:21)
--- NOTE | 2023-10-06 03:37 | PC.NURSE ---
security team summoned to [facility] to confiscate contraband sun glasses pt Aristeo de luna is wearing dark sun glasses. sun glasses have become a safety issue d/t visual impairment. pt has demonstrated visual impairment by walking into wall. security team collected sun glasses which have been placed in plastic filing cabinet at [employer].
[2023-10-06] MEDS: HaloperidoL 5 MG TABLET PO (09:09)
[2023-10-06] MEDS: levETIRAcetam 500 MG TABLET PO (09:10)
[2023-10-06] MEDS: Emtricitabin/Tenofovir 200/300 TABLET 1 TAB PO (09:10)
[2023-10-06] MEDS: Rilpivirine HCL 25 MG TABLET PO (09:10)
--- NOTE | 2023-10-06 19:34 | HO.PSYCHPN ---
Subjective Subjective Date of Service: 10/06/23 Reason For Visit: F32.9 Interim History: patient in his bedroom; visible in the unit with encouragement. He is yelling; refused to talk with me, swearing and belligerent Grossly disorganized. Review of Systems Review of Systems General: No fevers, malaise, unintentional weight loss HEENT: No blurred vision, diplopia. No sore throat, nasal congestion, rhinorrhea, sinus pain, ear pain Cardiovascular: No chest pain, palpitations, or leg edema Respiratory: No shortness of breath, wheezing, cough GI: No abdominal pain, nausea, vomiting, diarrhea, constipation, melena, hematochezia : No dysuria, hematuria, increased urinary frequency, decreased urinary output MSK: No myalgia, back pain Neuro: No headaches, weakness, paresthesias Skin: No rashes or lesions Mental Status Exam Mental Status Exam Patient Appearance: Unkempt Patient Orientation: Person Level of Consciousness: Awake Patient Behavior: Belligerent Mood Description: Calm Affect Description: Labile and Blunted Patient Cognition Impaired: Yes Ability to Follow Directions: Good Speech Pattern: Clear Judgement: Poor Diagnostics Vital Signs (24Hr): Vital Signs - 24 hr 10/05/23 19:57 Temperature 97 F Pulse Rate 110 H Respiratory Rate 16 Blood Pressure 146/83 H Pulse Oximetry 97 Oxygen Delivery Method Room Air BMI result Body Mass Index 17.0 Medications Medications Current Medications Acetaminophen (Acetaminophen 325 Mg Tablet) 650 mg PO Q6H PRN PRN Reason: Headache/Pain Mild Scale (1-3) Last Admin: 10/06/23 01:21 Dose: 650 mg Acetaminophen (Acetaminophen 325 Mg Tablet) 650 mg PO Q6H PRN PRN Reason: Pain (Scale Score 1-3) Al Hydroxide/Mg Hydroxide (Magnesium Hydrox/Alum Hydrox 30 Ml Oral.Susp) 30 ml PO Q6H PRN PRN Reason: Heartburn/Nausea Albuterol Sulfate (Albuterol Sulfate 90 Mcg 8 Gm Inhaler) 2 puff INHALE RQ4H PRN PRN Reason: Wheezing Amlodipine Besylate (Amlodipine Besylate 5 Mg Tablet) 5 mg PO DAILY [facility]; Protocol Last Admin: 10/06/23 09:16 Dose: Not Given Divalproex Sodium (Divalproex Sodium Sprinkles 125 Mg ) 250 mg PO TID [facility] Last Admin: 10/06/23 14:18 Dose: Not Given Emtricitabine/Tenofovir (Emtricitabin/Tenofovir 200/300 Tablet) 1 tab PO DAILY [facility] Last Admin: 10/06/23 09:10 Dose: 1 tab Haloperidol (Haloperidol 5 Mg Tablet) 5 mg PO BID [facility] Last Admin: 10/06/23 09:09 Dose: 5 mg Haloperidol Decanoate (Haloperidol Decanoate 50 Mg/Ml Vial) 100 mg IM Q28D [facility] Levetiracetam (Levetiracetam 500 Mg Tablet) 500 mg PO BID [facility] Last Admin: 10/06/23 09:10 Dose: 500 mg Magnesium Hydroxide (Milk Of Magnesia 30 Ml Oral.Susp) 30 ml PO DAILY PRN PRN Reason: Constipation Mirtazapine (Mirtazapine 15 Mg Tablet) 15 mg PO BEDTIME [facility] Last Admin: 10/05/23 21:00 Dose: 15 mg Nicotine Polacrilex (Nicotine Polacrilex 2 Mg Gum) 4 mg BUCCAL Q2H PRN PRN Reason: Nicotine Cravings Olanzapine (Olanzapine 5 Mg Tablet) 5 mg PO BID@0800,1500 [facility] Last Admin: 10/06/23 14:19 Dose: Not Given Olanzapine (Olanzapine 10 Mg Tablet) 10 mg PO BEDTIME [facility] Last Admin: 10/05/23 21:00 Dose: 10 mg Polyethylene Glycol (Polyethylene Glycol 3350 17 Gm Powd.Pack) 17 gm PO DAILY PRN PRN Reason: Constipation Rilpivirine (Rilpivirine Hcl 25 Mg Tablet) 25 mg PO DAILY [facility] Last Admin: 10/06/23 09:10 Dose: 25 mg Thiamine HCl (Thiamine Hcl 100 Mg Tablet) 100 mg PO DAILY [facility] Last Admin: 10/06/23 09:17 Dose: Not Given Trazodone HCl (Trazodone Hcl 50 Mg Tablet) 50 mg PO BEDTIME MRX1 PRN PRN Reason: Insomnia Last Admin: 10/02/23 19:34 Dose: 50 mg Allergies Allergies Allergy/AdvReac Type Severity Reaction Status Date / Time No Known Allergies Allergy Unverified 01/28/20 16:07 [No Known Allergies*] Assessment & Plan Assessment & Plan (1) Schizoaffective disorder, bipolar type: Status: Acute Code(s): F25.0 - Schizoaffective disorder, bipolar type (2) Dementia: Status: Acute Code(s): F03.90 - Unspecified dementia, unspecified severity, without behavioral disturbance, psychotic disturbance, mood disturbance, and anxiety (3) Noncompliance: Status: Acute Code(s): Z91.199 - Patient's noncompliance with other medical treatment and regimen due to unspecified reason Plan The patient is an elderly male with a past history of schizoaffective disorder, dementia, HIV and other medical problems, chronically mentally ill resident of assisted living facility referred to this facility after he became non compliant with medications with daniella and psychosis. The patient was assessed by crisis and transferring to this facility for psychiatric stabilization. At the moment of the interview the patient was able to contract for safety. Plan 1. Gather collateral information. 2. Continue with regular medications, we are not going to change his Depakote, olanzapine and Haldol Decanoate. 3. Reassessment with results. 4. 15 minutes checks since the patient is able to contract for safety. 5. Change Zyprexa to Zydis to avoid cheeking on October 02. 10/04 continue tx 10/05 continue tx Reason for continued inpatient stay Substantial Risk for: inability to function Time Spent With Patient Time: Total time managing care of this patient today ____ minutes.
--- NOTE | 2023-10-06 20:29 | HO.PSYEVENT2 ---
Event Note Date of Service: 10/06/23 Psych On-Call Event Note: pt refusing PO medication. pt is increasingly paranoid, swearing yelling, disruptive, verbally abusive to staff . Jass's order reviewed . Zyprexa 10mg IM ordered now for treatment per Jass's Order Time Spent With Patient Time: Total time managing care of this patient today ____ minutes.
[2023-10-06] MEDS: OLANZapine 10 MG VIAL IM (20:54)
--- NOTE | 2023-10-06 21:03 | PC.NURSE ---
Patient refused his medication. Patient is paranoid at this time exhibiting loud, disruptive, and intrusive behavior. He is verbally abusive to staff member, his room seems frightened. Patient has active Jass's order and copy of Jass was sent to scullion chief provider via [employer] and provider notified of patient's behavior. Olanzapine 10 mg IM ordered, security called as a show of force and support, patient was mad but complaint with IM administration. Patient refused to have vital sign assessed. Currently in bed appears resting, will continue to monitor.
--- NOTE | 2023-10-07 06:47 | HO.PSYEVENT2 ---
Event Note Date of Service: 10/07/23 Psych On-Call Event Note: pt refusing PO meds, running in hallway after staff; slept 2 hours after Im zyprexa 10 mg last night; no adverse effects reported; standing order for zyprexa 10mg IM BID if refuses PO Zyprexa ordered Time Spent With Patient Time: Total time managing care of this patient today ____ minutes.
[2023-10-07 08:45] VITALS: BP 133/80; PULSE 132; RESP 20; TEMP 36.4; O2SAT 96
[2023-10-07 08:47] VITALS: BP 133/80
[2023-10-07] MEDS: Rilpivirine HCL 25 MG TABLET PO (08:47)
[2023-10-07] MEDS: HaloperidoL 5 MG TABLET PO (08:47)
[2023-10-07] MEDS: OLANZapine 5 MG TABLET PO ×2 (08:47→14:52)
[2023-10-07] MEDS: amLODIPine Besylate 5 MG TABLET PO (08:47)
[2023-10-07] MEDS: Emtricitabin/Tenofovir 200/300 TABLET 1 TAB PO (08:47)
[2023-10-07] MEDS: Thiamine HCL 100 MG TABLET PO (08:48)
[2023-10-07] MEDS: levETIRAcetam 500 MG TABLET PO (08:48)
[2023-10-07] MEDS: Divalproex Sodium Sprinkles 125 MG CAP.DR.SPR 250 MG PO ×2 (08:48→14:52)
--- NOTE | 2023-10-07 09:59 | P.PNPSI_ITS ---
Subjective Subjective Date of Service: 10/07/23 Reason For Visit: F32.9 Guardianship: Yes Interim History: patient in his bedroom; visible in the unit with encouragement. He is yelling at times; refused to talk with me. Grossly disorganized. calmer this morning than yesterday. tolerating Im meds. Medication Compliance: Intermittent Side effects from medications: No Review of Systems Review of Systems General: No fevers, malaise, unintentional weight loss HEENT: No blurred vision, diplopia. No sore throat, nasal congestion, rhinorrh ea, sinus pain, ear pain Cardiovascular: No chest pain, palpitations, or leg edema Respiratory: No shortness of breath, wheezing, cough GI: No abdominal pain, nausea, vomiting, diarrhea, constipation, melena, hematochezia : No dysuria, hematuria, increased urinary frequency, decreased urinary output MSK: No myalgia, back pain Neuro: No headaches, weakness, paresthesias Skin: No rashes or lesions Mental Status Exam Mental Status Exam Patient Appearance: Unkempt Patient Orientation: Person Level of Consciousness: Awake Patient Behavior: Belligerent Mood Description: Calm Affect Description: Labile and Blunted Patient Cognition Impaired: Yes Ability to Follow Directions: Good Speech Pattern: Clear Delusions: Paranoid Ideation Thought Process: Disoriented Thought Content: positive for Disoriented Judgement: Poor Diagnostics Vital Signs (24Hr): Vital Signs - 24 hr 10/07/23 08:45 10/07/23 08:47 Temperature 97.6 F Pulse Rate 132 H Respiratory Rate 20 Blood Pressure 133/80 133/80 Pulse Oximetry 96 Oxygen Delivery Method Room Air BMI result Body Mass Index 17.0 Medications Medications Current Medications Acetaminophen (Acetaminophen 325 Mg Tablet) 650 mg PO Q6H PRN PRN Reason: Headache/Pain Mild Scale (1-3) Last Admin: 10/06/23 01:21 Dose: 650 mg Acetaminophen (Acetaminophen 325 Mg Tablet) 650 mg PO Q6H PRN PRN Reason: Pain (Scale Score 1-3) Al Hydroxide/Mg Hydroxide (Magnesium Hydrox/Alum Hydrox 30 Ml Oral.Susp) 30 ml PO Q6H PRN PRN Reason: Heartburn/Nausea Albuterol Sulfate (Albuterol Sulfate 90 Mcg 8 Gm Inhaler) 2 puff INHALE RQ4H PRN PRN Reason: Wheezing Amlodipine Besylate (Amlodipine Besylate 5 Mg Tablet) 5 mg PO DAILY [facility]; Protocol Last Admin: 10/07/23 08:47 Dose: 5 mg Divalproex Sodium (Divalproex Sodium Sprinkles 125 Mg ) 250 mg PO TID [facility] Last Admin: 10/07/23 08:48 Dose: 250 mg Emtricitabine/Tenofovir (Emtricitabin/Tenofovir 200/300 Tablet) 1 tab PO DAILY [facility] Last Admin: 10/07/23 08:47 Dose: 1 tab Haloperidol (Haloperidol 5 Mg Tablet) 5 mg PO BID [facility] Last Admin: 10/07/23 08:47 Dose: 5 mg Haloperidol Decanoate (Haloperidol Decanoate 50 Mg/Ml Vial) 100 mg IM Q28D [facility] Levetiracetam (Levetiracetam 500 Mg Tablet) 500 mg PO BID [facility] Last Admin: 10/07/23 08:48 Dose: 500 mg Magnesium Hydroxide (Milk Of Magnesia 30 Ml Oral.Susp) 30 ml PO DAILY PRN PRN Reason: Constipation Mirtazapine (Mirtazapine 15 Mg Tablet) 15 mg PO BEDTIME [facility] Last Admin: 10/06/23 20:29 Dose: Not Given Nicotine Polacrilex (Nicotine Polacrilex 2 Mg Gum) 4 mg BUCCAL Q2H PRN PRN Reason: Nicotine Cravings Olanzapine (Olanzapine 5 Mg Tablet) 5 mg PO BID@0800,1500 [facility] Last Admin: 10/07/23 08:47 Dose: 5 mg Olanzapine (Olanzapine 10 Mg Tablet) 10 mg PO BEDTIME [facility] Last Admin: 10/06/23 20:28 Dose: Not Given Olanzapine (Olanzapine 10 Mg Vial) 10 mg IM BID PRN PRN Reason: if refuses PO zyprexa;max 20mg Polyethylene Glycol (Polyethylene Glycol 3350 17 Gm Powd.Pack) 17 gm PO DAILY PRN PRN Reason: Constipation Rilpivirine (Rilpivirine Hcl 25 Mg Tablet) 25 mg PO DAILY [facility] Last Admin: 10/07/23 08:47 Dose: 25 mg Thiamine HCl (Thiamine Hcl 100 Mg Tablet) 100 mg PO DAILY [facility] Last Admin: 10/07/23 08:48 Dose: 100 mg Trazodone HCl (Trazodone Hcl 50 Mg Tablet) 50 mg PO BEDTIME MRX1 PRN PRN Reason: Insomnia Last Admin: 10/02/23 19:34 Dose: 50 mg Allergies Allergies Allergy/AdvReac Type Severity Reaction Status Date / Time No Known Allergies Allergy Unverified 01/28/20 16:07 [No Known Allergies*] Assessment & Plan Assessment & Plan (1) Schizoaffective disorder, bipolar type: Status: Acute Code(s): F25.0 - Schizoaffective disorder, bipolar type (2) Dementia: Status: Acute Code(s): F03.90 - Unspecified dementia, unspecified severity, without behavioral disturbance, psychotic disturbance, mood disturbance, and anxiety (3) Noncompliance: Status: Acute Code(s): Z91.199 - Patient's noncompliance with other medical treatment and regimen due to unspecified reason Plan The patient is an elderly male with a past history of schizoaffective disorder, dementia, HIV and other medical problems, chronically mentally ill resident of assisted living facility referred to this facility after he became non compliant with medications with daniella and psychosis. The patient was assessed by crisis and transferring to this facility for psychiatric stabilization. At the moment of the interview the patient was able to contract for safety. Plan 1. Gather collateral information. 2. Continue with regular medications, we are not going to change his Depakote, olanzapine and Haldol Decanoate. 3. Reassessment with results. 4. 15 minutes checks since the patient is able to contract for safety. 5. Change Zyprexa to Zydis to avoid cheeking on October 02. 10/04 continue tx 10/05 continue tx 10/06 Mil[facility] Order reviewed Im zyprexa ordered 10 mg BID IM prn po refusal - max of 20 mg in a 24 hour period between PO and IM not to exceed 20mg Informed Consent: does not understand Reason for continued inpatient stay Substantial Risk for: harm to self, inability to function and rapid decompensation Time Spent With Patient Time: Total time managing care of this patient today ____ minutes.
[2023-10-07] MEDS: OLANZapine 10 MG VIAL IM (21:15)
--- NOTE | 2023-10-07 21:33 | HO.PSYEVENT2 ---
Event Note Date of Service: 10/07/23 Psych On-Call Event Note: notified by nursing staff that sonal required a physical hold for admin of Im zyprexa per efren's order. pt held for one minute. order placed. pt tolerated hold without incident Time Spent With Patient Time: Total time managing care of this patient today ____ minutes.
--- NOTE | 2023-10-07 21:55 | PC.NURSE ---
Patient isolative to bathroom at start of shift, with light turned off and wears sunglasses. Verbally abusive and and posturing at staff upon approach. Refused vitals and meds despite multiple attempts to redirect unsuccessful. score caller provider notified, order for physical hold obtained for administration of 10 mg zyprexa IM per Francois order in place. Security called and patient continued to be verbally and physically aggressive: posturing, throwing punches and kicking. A physical hold of 1 min was applied and patient administered 10 mg of Zyprexa in L gluteus and contraband sunglasses recovered by staff. Patient resting in bed afterwards, refused all follow up vitals, was monitored for adverse effects. All responsible parties notified including guardian Michelle Bustos. Will continue to monitored.
--- NOTE | 2023-10-07 22:32 | PM.EVENT ---
Event Note Date of Service: 10/07/23 Event Note: [facility] was called on patient became agitated and aggressive towards staff, screaming and yelling, cursing, throwing items, and refusing medications. All attempts at redirection failed and patient was physically restrained by security who held patient's left forearm while 5 mg Zyprexa IM was administered to each buttock. Patient seen and examined in his room where he is resting on his bed. Patient becomes increasingly agitated, combative, and aggressive while provider and nursing staff is in his room. Patient is swearing, threatening physical violence, and attempting to strike out. Patient will not allow any physical contact, but appears to be in no physical acute distress. Left forearm is free and clear of any signs of physical trauma. No reduced mobility or ROM secondary to pain noted. Time Spent With Patient Time: Total time managing care of this patient today ____ minutes.
[2023-10-08 08:00] VITALS: BP 119/73; RESP 20; TEMP 36.3
[2023-10-08] MEDS: OLANZapine 10 MG VIAL IM ×2 (10:11→15:56)
--- NOTE | 2023-10-08 10:49 | PC.NURSE ---
Addendum entered by Diana Fernandes RN 10/08/23 10:53: Dr. Hua notified of refusal of medications. Asked to clarify IM backup as Aristeo has Zyprexa ordered TID however max dose IM is 20 mg and IM is 10mg which would only allow 2 doses to be covered with [facility] med. Awaiting response. Original Note: Aristeo declined all oral medications. IM Zyprexa 10mg administered per Jass's order.
--- NOTE | 2023-10-08 11:47 | HO.PSYCHPN ---
Subjective Subjective Date of Service: 10/08/23 Reason For Visit: F32.9 Subjective Notes: Section 7 and Section 8 Interim History: THE NURSING STAFF REPORTED THE PATIENT HAD BEEN BELLIGERENT, PARANOID, INAPPROPRIATE WITH STAFF. HE REFUSED HIS MEDICATIONS AND HE NEEDED TO HAD ZYPREXA IM P.R.N.. ON INTERVIEW THE PATIENT REMAINS GROSSLY DISORGANIZED AND PARANOID. Mental Status Exam Mental Status Exam Patient Appearance: Unkempt Patient Orientation: Person and Situation Level of Consciousness: Awake Patient Behavior: Guarded and Belligerent Mood Description: Angry Affect Description: Labile Patient Cognition Impaired: Yes Ability to Follow Directions: Poor Speech Pattern: Clear, Impoverished and Loud Hallucinations: Auditory Delusions: Paranoid Ideation and Ideas of Reference Thought Process: Incoherent and Illogical Thought Content: positive for [place], positive for Poverty of Content and positive for Loose Associations Judgement: Poor Diagnostics Vital Signs (24Hr): Vital Signs - 24 hr 10/08/23 08:00 Temperature 97.3 F Respiratory Rate 20 Blood Pressure 119/73 BMI result Body Mass Index 17.0 Medications Medications Current Medications Acetaminophen (Acetaminophen 325 Mg Tablet) 650 mg PO Q6H PRN PRN Reason: Headache/Pain Mild Scale (1-3) Last Admin: 10/06/23 01:21 Dose: 650 mg Acetaminophen (Acetaminophen 325 Mg Tablet) 650 mg PO Q6H PRN PRN Reason: Pain (Scale Score 1-3) Al Hydroxide/Mg Hydroxide (Magnesium Hydrox/Alum Hydrox 30 Ml Oral.Susp) 30 ml PO Q6H PRN PRN Reason: Heartburn/Nausea Albuterol Sulfate (Albuterol Sulfate 90 Mcg 8 Gm Inhaler) 2 puff INHALE RQ4H PRN PRN Reason: Wheezing Amlodipine Besylate (Amlodipine Besylate 5 Mg Tablet) 5 mg PO DAILY [facility]; Protocol Last Admin: 10/08/23 10:14 Dose: Not Given Divalproex Sodium (Divalproex Sodium Sprinkles 125 Mg ) 250 mg PO TID [facility] Last Admin: 10/08/23 10:15 Dose: Not Given Emtricitabine/Tenofovir (Emtricitabin/Tenofovir 200/300 Tablet) 1 tab PO DAILY [facility] Last Admin: 10/08/23 10:15 Dose: Not Given Haloperidol (Haloperidol 5 Mg Tablet) 5 mg PO BID [facility] Last Admin: 10/08/23 10:15 Dose: Not Given Haloperidol Decanoate (Haloperidol Decanoate 50 Mg/Ml Vial) 100 mg IM Q28D [facility] Levetiracetam (Levetiracetam 500 Mg Tablet) 500 mg PO BID [facility] Last Admin: 10/08/23 10:14 Dose: Not Given Magnesium Hydroxide (Milk Of Magnesia 30 Ml Oral.Susp) 30 ml PO DAILY PRN PRN Reason: Constipation Mirtazapine (Mirtazapine 15 Mg Tablet) 15 mg PO BEDTIME [facility] Last Admin: 10/07/23 21:42 Dose: Not Given Nicotine Polacrilex (Nicotine Polacrilex 2 Mg Gum) 4 mg BUCCAL Q2H PRN PRN Reason: Nicotine Cravings Olanzapine (Olanzapine 5 Mg Tablet) 5 mg PO BID@0800,1500 [facility] Last Admin: 10/08/23 10:14 Dose: Not Given Olanzapine (Olanzapine 10 Mg Tablet) 10 mg PO BEDTIME [facility] Last Admin: 10/07/23 21:42 Dose: Not Given Olanzapine (Olanzapine 10 Mg Vial) 10 mg IM BID PRN PRN Reason: if refuses PO zyprexa;max 20mg Last Admin: 10/08/23 10:11 Dose: 10 mg Polyethylene Glycol (Polyethylene Glycol 3350 17 Gm Powd.Pack) 17 gm PO DAILY PRN PRN Reason: Constipation Rilpivirine (Rilpivirine Hcl 25 Mg Tablet) 25 mg PO DAILY [facility] Last Admin: 10/08/23 10:14 Dose: Not Given Thiamine HCl (Thiamine Hcl 100 Mg Tablet) 100 mg PO DAILY [facility] Last Admin: 10/08/23 10:14 Dose: Not Given Trazodone HCl (Trazodone Hcl 50 Mg Tablet) 50 mg PO BEDTIME MRX1 PRN PRN Reason: Insomnia Last Admin: 10/02/23 19:34 Dose: 50 mg Allergies Allergies Allergy/AdvReac Type Severity Reaction Status Date / Time No Known Allergies Allergy Unverified 01/28/20 16:07 [No Known Allergies*] Assessment & Plan Assessment & Plan (1) Schizoaffective disorder, bipolar type: Status: Acute Code(s): F25.0 - Schizoaffective disorder, bipolar type (2) Dementia: Status: Acute Code(s): F03.90 - Unspecified dementia, unspecified severity, without behavioral disturbance, psychotic disturbance, mood disturbance, and anxiety (3) Noncompliance: Status: Acute Code(s): Z91.199 - Patient's noncompliance with other medical treatment and regimen due to unspecified reason Plan The patient is an elderly male with a past history of schizoaffective disorder, dementia, HIV and other medical problems, chronically mentally ill resident of assisted living facility referred to this facility after he became non compliant with medications with daniella and psychosis. The patient was assessed by crisis and transferring to this facility for psychiatric stabilization. At the moment of the interview the patient was able to contract for safety. Plan 1. Gather collateral information. 2. Continue with regular medications, we are not going to change his Depakote, olanzapine and Haldol Decanoate. 3. Reassessment with results. 4. 15 minutes checks since the patient is able to contract for safety. 5. Change Zyprexa to Zydis to avoid cheeking on October 02. 6. IM zyprexa ordered 10 mg BID IM prn po refusal - max of 20 mg in a 24 hour period between PO and IM not to exceed 20mg Reason for continued inpatient stay Substantial Risk for: inability to function, rapid decompensation and med/psych decompensation Time Spent With Patient Time: Total time managing care of this patient today __20__ minutes.
--- NOTE | 2023-10-08 16:33 | PC.NURSE ---
Ariste[facility] declined 1500 Depakote [address]. [address] Hua. Asked for clarification as Milo order is olanzapine 20mg/day in [facility] however [facility] document states max dose of olanzapine is 30mg/day (dose for refusal of PRN Olanzapine is 10mg) however he has three oral doses a day which would exceed max dose of olanzapine in [facility]. Dr. Hua instructed to give IM at 3pm and he would modify the order in [facility] to reflect the [facility] document of max dose Olanzapine of 30mg/day.
[2023-10-08] MEDS: HaloperidoL 5 MG TABLET PO (21:18)
[2023-10-08] MEDS: Mirtazapine 15 MG TABLET PO (21:18)
[2023-10-08] MEDS: Divalproex Sodium Sprinkles 125 MG CAP.DR.SPR 250 MG PO (21:19)
[2023-10-08] MEDS: levETIRAcetam 500 MG TABLET PO (21:20)
[2023-10-08] MEDS: OLANZapine 10 MG TABLET PO (21:20)
[2023-10-09 09:00] VITALS: BP 111/68; PULSE 118; RESP 20; TEMP 36.2
--- NOTE | 2023-10-09 09:22 | P.PNPSI_ITS ---
Subjective Subjective Date of Service: 10/09/23 Reason For Visit: F32.9 Subjective Notes: [facility] Order, Section 7, Section 8 and Conditional Voluntary Interim History: The nursing staff reported the patient received Zyprexa IM twice since he refused to have medication by mouth. He had been more aggressive, uncooperative and threatening to staff. He slept 8 hours. On interview the patient was very confused, he still grandiose and grossly psychotic. Mental Status Exam Mental Status Exam Patient Appearance: Unkempt Patient Orientation: Person Level of Consciousness: Awake Patient Behavior: Posturing and Aggressive Mood Description: Angry Affect Description: Labile Patient Cognition Impaired: Yes Ability to Follow Directions: Poor Speech Pattern: Impoverished Hallucinations: Auditory Delusions: Paranoid Ideation Thought Process: Incoherent, Illogical and Slowed Thinking Thought Content: positive for Poverty of Content and positive for Loose Associations Judgement: Poor Diagnostics Vital Signs (24Hr): BMI result Body Mass Index 17.0 Medications Medications Current Medications Acetaminophen (Acetaminophen 325 Mg Tablet) 650 mg PO Q6H PRN PRN Reason: Headache/Pain Mild Scale (1-3) Last Admin: 10/06/23 01:21 Dose: 650 mg Acetaminophen (Acetaminophen 325 Mg Tablet) 650 mg PO Q6H PRN PRN Reason: Pain (Scale Score 1-3) Al Hydroxide/Mg Hydroxide (Magnesium Hydrox/Alum Hydrox 30 Ml Oral.Susp) 30 ml PO Q6H PRN PRN Reason: Heartburn/Nausea Albuterol Sulfate (Albuterol Sulfate 90 Mcg 8 Gm Inhaler) 2 puff INHALE RQ4H PRN PRN Reason: Wheezing Amlodipine Besylate (Amlodipine Besylate 5 Mg Tablet) 5 mg PO DAILY [facility]; Protocol Last Admin: 10/09/23 09:02 Dose: Not Given Divalproex Sodium (Divalproex Sodium Sprinkles 125 Mg ) 250 mg PO TID [facility] Last Admin: 10/09/23 09:03 Dose: Not Given Emtricitabine/Tenofovir (Emtricitabin/Tenofovir 200/300 Tablet) 1 tab PO DAILY [facility] Last Admin: 10/09/23 09:03 Dose: Not Given Haloperidol (Haloperidol 5 Mg Tablet) 5 mg PO BID [facility] Last Admin: 10/09/23 09:03 Dose: Not Given Haloperidol Decanoate (Haloperidol Decanoate 50 Mg/Ml Vial) 100 mg IM Q28D [facility] Levetiracetam (Levetiracetam 500 Mg Tablet) 500 mg PO BID [facility] Last Admin: 10/09/23 09:03 Dose: Not Given Magnesium Hydroxide (Milk Of Magnesia 30 Ml Oral.Susp) 30 ml PO DAILY PRN PRN Reason: Constipation Mirtazapine (Mirtazapine 15 Mg Tablet) 15 mg PO BEDTIME [facility] Last Admin: 10/08/23 21:18 Dose: 15 mg Nicotine Polacrilex (Nicotine Polacrilex 2 Mg Gum) 4 mg BUCCAL Q2H PRN PRN Reason: Nicotine Cravings Olanzapine (Olanzapine 5 Mg Tablet) 5 mg PO BID@0800,1500 [facility] Last Admin: 10/09/23 09:02 Dose: Not Given Olanzapine (Olanzapine 10 Mg Tablet) 10 mg PO BEDTIME [facility] Last Admin: 10/08/23 21:20 Dose: 10 mg Olanzapine (Olanzapine 10 Mg Vial) 10 mg IM TID PRN PRN Reason: if refuses PO zyprexa;max 30mg Polyethylene Glycol (Polyethylene Glycol 3350 17 Gm Powd.Pack) 17 gm PO DAILY PRN PRN Reason: Constipation Rilpivirine (Rilpivirine Hcl 25 Mg Tablet) 25 mg PO DAILY [facility] Last Admin: 10/09/23 09:03 Dose: Not Given Thiamine HCl (Thiamine Hcl 100 Mg Tablet) 100 mg PO DAILY [facility] Last Admin: 10/09/23 09:04 Dose: Not Given Trazodone HCl (Trazodone Hcl 50 Mg Tablet) 50 mg PO BEDTIME MRX1 PRN PRN Reason: Insomnia Last Admin: 10/02/23 19:34 Dose: 50 mg Allergies Allergies Allergy/AdvReac Type Severity Reaction Status Date / Time No Known Allergies Allergy Unverified 01/28/20 16:07 [No Known Allergies*] Assessment & Plan Assessment & Plan (1) Schizoaffective disorder, bipolar type: Status: Acute Code(s): F25.0 - Schizoaffective disorder, bipolar type (2) Dementia: Status: Acute Code(s): F03.90 - Unspecified dementia, unspecified severity, without behavioral disturbance, psychotic disturbance, mood disturbance, and anxiety (3) Noncompliance: Status: Acute Code(s): Z91.199 - Patient's noncompliance with other medical treatment and regimen due to unspecified reason Plan The patient is an elderly male with a past history of schizoaffective disorder, dementia, HIV and other medical problems, chronically mentally ill resident of assisted living facility referred to this facility after he became non compliant with medications with daniella and psychosis. The patient was assessed by crisis and transferring to this facility for psychiatric stabilization. At the moment of the interview the patient was able to contract for safety. Plan 1. Gather collateral information. 2. Continue with regular medications, we are not going to change his Depakote, olanzapine and Haldol Decanoate. 3. Reassessment with results. 4. 15 minutes checks since the patient is able to contract for safety. 5. Change Zyprexa to Zydis to avoid cheeking on October 02. 6. IM zyprexa ordered 10 mg t.i.d. p.r.n. refusal of p.o. as per court order. Total dose up to 30 mg a day. Reason for continued inpatient stay Substantial Risk for: inability to function, rapid decompensation and med/psych decompensation Time Spent With Patient Time: Total time managing care of this patient today _20___ minutes.
[2023-10-09] MEDS: Rilpivirine HCL 25 MG TABLET PO (09:30)
[2023-10-09] MEDS: Divalproex Sodium Sprinkles 125 MG CAP.DR.SPR 250 MG PO ×3 (09:31→21:05)
[2023-10-09] MEDS: Emtricitabin/Tenofovir 200/300 TABLET 1 TAB PO (09:32)
[2023-10-09] MEDS: levETIRAcetam 500 MG TABLET PO ×2 (09:32→21:06)
[2023-10-09] MEDS: HaloperidoL 5 MG TABLET PO ×2 (09:33→21:06)
[2023-10-09] MEDS: OLANZapine 5 MG TABLET PO ×2 (09:33→14:39)
[2023-10-09 09:34] VITALS: BP 111/68
[2023-10-09] MEDS: Thiamine HCL 100 MG TABLET PO (09:34)
[2023-10-09] MEDS: amLODIPine Besylate 5 MG TABLET PO (09:34)
--- NOTE | 2023-10-09 15:06 | MHC.CLN ---
F/U DIET=REGULAR. ENSURE TID TO INCREASE KCALS/NUTRITION. SUPPLEMENT PROVIDES 1050 KCALS, 60 G PROTEIN. INTAKE AT MEALS VARIABLE, 0-100%. ACCEPTS ENSURE SUPPLEMENT. PROVIDE ADDITIONAL SNACKS/SUPPLEMENTS FROM UNIT KITCHEN DESIRED. FOLLOW FOR INTAKE OF MEALS AND SUPPLEMENT. RD TO FOLLOW UP WEEKLY.
[2023-10-09 20:00] VITALS: RESP 18
[2023-10-09] MEDS: OLANZapine 10 MG TABLET PO (21:06)
[2023-10-09] MEDS: Mirtazapine 15 MG TABLET PO (21:06)
[2023-10-10] MEDS: traZODone HCL 50 MG TABLET PO ×2 (01:26→20:45)
[2023-10-10 08:00] VITALS: BP 105/78; PULSE 101; RESP 18; TEMP 36.3
--- NOTE | 2023-10-10 08:00 | HO.PSYCHPN ---
Subjective Subjective Date of Service: 10/10/23 Reason For Visit: F32.9 Subjective Notes: Section 7 and Section 8 Interim History: The nursing staff reported the patient had been disorganized, watching TV. He has refused all his meds but took IM without any problems. He has been encouraged to take medication and he has been compliant partially with a lot of encouragement. Slept 4 hours. On interview the patient remains disorganized. Mental Status Exam Mental Status Exam Patient Appearance: Unkempt Patient Orientation: Person Level of Consciousness: Disoriented and Restless Patient Behavior: Guarded Mood Description: Blunted Affect Description: Calm Patient Cognition Impaired: Yes Ability to Follow Directions: Poor Speech Pattern: Clear and Impoverished Hallucinations: Auditory Delusions: Paranoid Ideation, Grandiose and Ideas of Reference Thought Process: Incoherent, Distracted and Slowed Thinking Thought Content: positive for [place] and positive for Poverty of Content Judgement: Poor Diagnostics Vital Signs (24Hr): Vital Signs - 24 hr 10/09/23 09:00 10/09/23 09:34 10/09/23 20:00 Temperature 97.1 F Pulse Rate 118 H Respiratory Rate 20 18 Blood Pressure 111/68 111/68 BMI result Body Mass Index 17.0 Medications Medications Current Medications Acetaminophen (Acetaminophen 325 Mg Tablet) 650 mg PO Q6H PRN PRN Reason: Headache/Pain Mild Scale (1-3) Last Admin: 10/06/23 01:21 Dose: 650 mg Acetaminophen (Acetaminophen 325 Mg Tablet) 650 mg PO Q6H PRN PRN Reason: Pain (Scale Score 1-3) Al Hydroxide/Mg Hydroxide (Magnesium Hydrox/Alum Hydrox 30 Ml Oral.Susp) 30 ml PO Q6H PRN PRN Reason: Heartburn/Nausea Albuterol Sulfate (Albuterol Sulfate 90 Mcg 8 Gm Inhaler) 2 puff INHALE RQ4H PRN PRN Reason: Wheezing Amlodipine Besylate (Amlodipine Besylate 5 Mg Tablet) 5 mg PO DAILY [facility]; Protocol Last Admin: 10/09/23 09:34 Dose: 5 mg Divalproex Sodium (Divalproex Sodium Sprinkles 125 Mg ) 250 mg PO TID [facility] Last Admin: 10/09/23 21:05 Dose: 250 mg Emtricitabine/Tenofovir (Emtricitabin/Tenofovir 200/300 Tablet) 1 tab PO DAILY [facility] Last Admin: 10/09/23 09:32 Dose: 1 tab Haloperidol (Haloperidol 5 Mg Tablet) 5 mg PO BID [facility] Last Admin: 10/09/23 21:06 Dose: 5 mg Haloperidol Decanoate (Haloperidol Decanoate 50 Mg/Ml Vial) 100 mg IM Q28D [facility] Levetiracetam (Levetiracetam 500 Mg Tablet) 500 mg PO BID [facility] Last Admin: 10/09/23 21:06 Dose: 500 mg Magnesium Hydroxide (Milk Of Magnesia 30 Ml Oral.Susp) 30 ml PO DAILY PRN PRN Reason: Constipation Mirtazapine (Mirtazapine 15 Mg Tablet) 15 mg PO BEDTIME [facility] Last Admin: 10/09/23 21:06 Dose: 15 mg Nicotine Polacrilex (Nicotine Polacrilex 2 Mg Gum) 4 mg BUCCAL Q2H PRN PRN Reason: Nicotine Cravings Olanzapine (Olanzapine 5 Mg Tablet) 5 mg PO BID@0800,1500 [facility] Last Admin: 10/09/23 14:39 Dose: 5 mg Olanzapine (Olanzapine 10 Mg Tablet) 10 mg PO BEDTIME [facility] Last Admin: 10/09/23 21:06 Dose: 10 mg Olanzapine (Olanzapine 10 Mg Vial) 10 mg IM TID PRN PRN Reason: if refuses PO zyprexa;max 30mg Polyethylene Glycol (Polyethylene Glycol 3350 17 Gm Powd.Pack) 17 gm PO DAILY PRN PRN Reason: Constipation Rilpivirine (Rilpivirine Hcl 25 Mg Tablet) 25 mg PO DAILY [facility] Last Admin: 10/09/23 09:30 Dose: 25 mg Thiamine HCl (Thiamine Hcl 100 Mg Tablet) 100 mg PO DAILY [facility] Last Admin: 10/09/23 09:34 Dose: 100 mg Trazodone HCl (Trazodone Hcl 50 Mg Tablet) 50 mg PO BEDTIME MRX1 PRN PRN Reason: Insomnia Last Admin: 10/10/23 01:26 Dose: 50 mg Allergies Allergies Allergy/AdvReac Type Severity Reaction Status Date / Time No Known Allergies Allergy Unverified 01/28/20 16:07 [No Known Allergies*] Assessment & Plan Assessment & Plan (1) Schizoaffective disorder, bipolar type: Status: Acute Code(s): F25.0 - Schizoaffective disorder, bipolar type (2) Dementia: Status: Acute Code(s): F03.90 - Unspecified dementia, unspecified severity, without behavioral disturbance, psychotic disturbance, mood disturbance, and anxiety (3) Noncompliance: Status: Acute Code(s): Z91.199 - Patient's noncompliance with other medical treatment and regimen due to unspecified reason Plan The patient is an elderly male with a past history of schizoaffective disorder, dementia, HIV and other medical problems, chronically mentally ill resident of assisted living facility referred to this facility after he became non compliant with medications with daniella and psychosis. The patient was assessed by crisis and transferring to this facility for psychiatric stabilization. At the moment of the interview the patient was able to contract for safety. Plan 1. Gather collateral information. 2. Continue with regular medications, we are not going to change his Depakote, olanzapine and Haldol Decanoate. 3. Reassessment with results. 4. 15 minutes checks since the patient is able to contract for safety. 5. Change Zyprexa to Zydis to avoid cheeking on October 02. 6. IM zyprexa ordered 10 mg t.i.d. p.r.n. refusal of p.o. as per court order. Total dose up to 30 mg a day. Reason for continued inpatient stay Substantial Risk for: inability to function, rapid decompensation and med/psych decompensation Time Spent With Patient Time: Total time managing care of this patient today __20__ minutes.
[2023-10-10] MEDS: Divalproex Sodium Sprinkles 125 MG CAP.DR.SPR 250 MG PO ×3 (08:35→20:46)
[2023-10-10 08:36] VITALS: BP 105/78
[2023-10-10] MEDS: HaloperidoL 5 MG TABLET PO ×2 (08:36→20:46)
[2023-10-10] MEDS: Rilpivirine HCL 25 MG TABLET PO (08:36)
[2023-10-10] MEDS: amLODIPine Besylate 5 MG TABLET PO (08:36)
[2023-10-10] MEDS: OLANZapine 5 MG TABLET PO ×2 (08:36→15:29)
[2023-10-10] MEDS: Thiamine HCL 100 MG TABLET PO (08:36)
[2023-10-10] MEDS: levETIRAcetam 500 MG TABLET PO ×2 (08:36→20:46)
[2023-10-10] MEDS: Emtricitabin/Tenofovir 200/300 TABLET 1 TAB PO (08:36)
--- NOTE | 2023-10-10 11:55 | PC.NURSE ---
Patient cooperative with vital signs monitoring except checking the O2sat. Accepted all am meds with ice cream. Out of his room to the milieu for lunch. Consuming pizza he ordered for lunch. Denies pain. No SOB or respiratory distress noted. Will continue to monitor.
[2023-10-10 12:46] VITALS: BMI 17.4
[2023-10-10 19:35] VITALS: BP 111/61; PULSE 110; RESP 18; TEMP 36.9; O2SAT 97
[2023-10-10] MEDS: OLANZapine 10 MG TABLET PO (20:45)
[2023-10-10] MEDS: Mirtazapine 15 MG TABLET PO (20:46)
[2023-10-11 08:00] VITALS: PULSE 102; RESP 18; TEMP 36.6; O2SAT 98
[2023-10-11] MEDS: OLANZapine 10 MG VIAL IM (09:20)
--- NOTE | 2023-10-11 10:25 | P.PNPSI_ITS ---
Subjective Subjective Date of Service: 10/11/23 Reason For Visit: F32.9 Subjective Notes: [facility] Order, Section 7, Section 8 and Conditional Voluntary Interim History: The nursing staff reported that yesterday the patient accepted vital signs he had been visible in the unit nonsensical speech but eating well. He took his medication at night I slept 4 hours. Today the occupational therapist reported that he looks more pleasant in the morning. On interview the patient remains psychotic but less aggressive than yesterday. We will continue with current treatment. Mental Status Exam Mental Status Exam Patient Appearance: Unkempt Patient Orientation: Person and Situation Level of Consciousness: Awake and Appropriate Patient Behavior: Guarded and Passive Mood Description: Withdrawn Affect Description: Labile Patient Cognition Impaired: Yes Ability to Follow Directions: Good Speech Pattern: Clear Hallucinations: Auditory Delusions: Paranoid Ideation, Grandiose and Ideas of Reference Thought Process: Distracted and Slowed Thinking Thought Content: positive for [place] and positive for Poverty of Content Judgement: Poor Diagnostics Vital Signs (24Hr): Vital Signs - 24 hr 10/10/23 19:35 10/11/23 08:00 Temperature 98.5 F 97.8 F Pulse Rate 110 H 102 H Respiratory Rate 18 18 Blood Pressure 111/61 Pulse Oximetry 97 98 Oxygen Delivery Method Room Air Room Air BMI result Body Mass Index 17.4 Medications Medications Current Medications Acetaminophen (Acetaminophen 325 Mg Tablet) 650 mg PO Q6H PRN PRN Reason: Headache/Pain Mild Scale (1-3) Last Admin: 10/06/23 01:21 Dose: 650 mg Acetaminophen (Acetaminophen 325 Mg Tablet) 650 mg PO Q6H PRN PRN Reason: Pain (Scale Score 1-3) Al Hydroxide/Mg Hydroxide (Magnesium Hydrox/Alum Hydrox 30 Ml Oral.Susp) 30 ml PO Q6H PRN PRN Reason: Heartburn/Nausea Albuterol Sulfate (Albuterol Sulfate 90 Mcg 8 Gm Inhaler) 2 puff INHALE RQ4H PRN PRN Reason: Wheezing Amlodipine Besylate (Amlodipine Besylate 5 Mg Tablet) 5 mg PO DAILY [facility]; Protocol Last Admin: 10/11/23 09:30 Dose: Not Given Divalproex Sodium (Divalproex Sodium Sprinkles 125 Mg ) 250 mg PO TID [facility] Last Admin: 10/11/23 09:30 Dose: Not Given Emtricitabine/Tenofovir (Emtricitabin/Tenofovir 200/300 Tablet) 1 tab PO DAILY [facility] Last Admin: 10/11/23 09:31 Dose: Not Given Haloperidol (Haloperidol 5 Mg Tablet) 5 mg PO BID [facility] Last Admin: 10/11/23 09:31 Dose: Not Given Haloperidol Decanoate (Haloperidol Decanoate 50 Mg/Ml Vial) 100 mg IM Q28D [facility] Levetiracetam (Levetiracetam 500 Mg Tablet) 500 mg PO BID [facility] Last Admin: 10/11/23 09:31 Dose: Not Given Magnesium Hydroxide (Milk Of Magnesia 30 Ml Oral.Susp) 30 ml PO DAILY PRN PRN Reason: Constipation Mirtazapine (Mirtazapine 15 Mg Tablet) 15 mg PO BEDTIME [facility] Last Admin: 10/10/23 20:46 Dose: 15 mg Nicotine Polacrilex (Nicotine Polacrilex 2 Mg Gum) 4 mg BUCCAL Q2H PRN PRN Reason: Nicotine Cravings Olanzapine (Olanzapine 5 Mg Tablet) 5 mg PO BID@0800,1500 [facility] Last Admin: 10/11/23 09:30 Dose: Not Given Olanzapine (Olanzapine 10 Mg Tablet) 10 mg PO BEDTIME [facility] Last Admin: 10/10/23 20:45 Dose: 10 mg Olanzapine (Olanzapine 10 Mg Vial) 10 mg IM TID PRN PRN Reason: if refuses PO zyprexa;max 30mg Last Admin: 10/11/23 09:20 Dose: 10 mg Polyethylene Glycol (Polyethylene Glycol 3350 17 Gm Powd.Pack) 17 gm PO DAILY PRN PRN Reason: Constipation Rilpivirine (Rilpivirine Hcl 25 Mg Tablet) 25 mg PO DAILY [facility] Last Admin: 10/11/23 09:31 Dose: Not Given Thiamine HCl (Thiamine Hcl 100 Mg Tablet) 100 mg PO DAILY [facility] Last Admin: 10/11/23 09:31 Dose: Not Given Trazodone HCl (Trazodone Hcl 50 Mg Tablet) 50 mg PO BEDTIME MRX1 PRN PRN Reason: Insomnia Last Admin: 10/10/23 20:45 Dose: 50 mg Allergies Allergies Allergy/AdvReac Type Severity Reaction Status Date / Time No Known Allergies Allergy Unverified 01/28/20 16:07 [No Known Allergies*] Assessment & Plan Assessment & Plan (1) Schizoaffective disorder, bipolar type: Status: Acute Code(s): F25.0 - Schizoaffective disorder, bipolar type (2) Dementia: Status: Acute Code(s): F03.90 - Unspecified dementia, unspecified severity, without behavioral disturbance, psychotic disturbance, mood disturbance, and anxiety (3) Noncompliance: Status: Acute Code(s): Z91.199 - Patient's noncompliance with other medical treatment and regimen due to unspecified reason Plan The patient is an elderly male with a past history of schizoaffective disorder, dementia, HIV and other medical problems, chronically mentally ill resident of assisted living facility referred to this facility after he became non compliant with medications with daniella and psychosis. The patient was assessed by crisis and transferring to this facility for psychiatric stabilization. At the moment of the interview the patient was able to contract for safety. Plan 1. Gather collateral information. 2. Continue with regular medications, we are not going to change his Depakote, olanzapine and Haldol Decanoate. 3. Reassessment with results. 4. 15 minutes checks since the patient is able to contract for safety. 5. Change Zyprexa to Zydis to avoid cheeking on October 02. 6. IM zyprexa ordered 10 mg t.i.d. p.r.n. refusal of p.o. as per court order. Total dose up to 30 mg a day. Reason for continued inpatient stay Substantial Risk for: inability to function, rapid decompensation and med/psych decompensation Time Spent With Patient Time: Total time managing care of this patient today __20__ minutes.
[2023-10-11] MEDS: Divalproex Sodium Sprinkles 125 MG CAP.DR.SPR 250 MG PO ×2 (13:59→20:40)
[2023-10-11] MEDS: OLANZapine 5 MG TABLET PO (13:59)
[2023-10-11 20:00] VITALS: BP 109/79; PULSE 111; RESP 18; TEMP 36.2; O2SAT 98
[2023-10-11] MEDS: OLANZapine 10 MG TABLET PO (20:41)
[2023-10-11] MEDS: Mirtazapine 15 MG TABLET PO (20:41)
[2023-10-11] MEDS: HaloperidoL 5 MG TABLET PO (20:41)
[2023-10-11] MEDS: levETIRAcetam 500 MG TABLET PO (20:41)
[2023-10-12 08:00] VITALS: BP 118/91; PULSE 112; RESP 20; TEMP 36.8; O2SAT 96
[2023-10-12] MEDS: Thiamine HCL 100 MG TABLET PO (08:28)
[2023-10-12] MEDS: Divalproex Sodium Sprinkles 125 MG CAP.DR.SPR 250 MG PO ×2 (08:28→14:07)
[2023-10-12] MEDS: levETIRAcetam 500 MG TABLET PO (08:28)
[2023-10-12 08:29] VITALS: BP 118/91
[2023-10-12] MEDS: Emtricitabin/Tenofovir 200/300 TABLET 1 TAB PO (08:29)
[2023-10-12] MEDS: HaloperidoL 5 MG TABLET PO (08:29)
[2023-10-12] MEDS: OLANZapine 5 MG TABLET PO ×2 (08:29→14:22)
[2023-10-12] MEDS: amLODIPine Besylate 5 MG TABLET PO (08:29)
[2023-10-12] MEDS: Rilpivirine HCL 25 MG TABLET PO (08:29)
--- NOTE | 2023-10-12 11:11 | P.PNPSI_ITS ---
Subjective Subjective Date of Service: 10/12/23 Reason For Visit: F32.9 Subjective Notes: Section 7 and Section 8 Interim History: Discussed with Nursing. Has been isolative. Would not engage with tech writer. In bed. Intermittently visible in the milieu as per staff. Medication Compliance: Yes ( As per court order) Side effects from medications: No Attending Groups: No Review of Systems Acute medical concerns: No Review of Systems Review of Systems Yes Unobtainable due to mental status Mental Status Exam Mental Status Exam Narrative: would not engage with tech writer. Self-care is poor. In bed. Diagnostics Vital Signs (24Hr): Vital Signs - 24 hr 10/11/23 20:00 10/12/23 08:00 10/12/23 08:29 Temperature 97.1 F 98.3 F Pulse Rate 111 H 112 H Respiratory Rate 18 20 Blood Pressure 109/79 118/91 H 118/91 H Pulse Oximetry 98 96 Oxygen Delivery Method Room Air Room Air BMI result Body Mass Index 17.4 Medications Medications Current Medications Acetaminophen (Acetaminophen 325 Mg Tablet) 650 mg PO Q6H PRN PRN Reason: Headache/Pain Mild Scale (1-3) Last Admin: 10/06/23 01:21 Dose: 650 mg Acetaminophen (Acetaminophen 325 Mg Tablet) 650 mg PO Q6H PRN PRN Reason: Pain (Scale Score 1-3) Al Hydroxide/Mg Hydroxide (Magnesium Hydrox/Alum Hydrox 30 Ml Oral.Susp) 30 ml PO Q6H PRN PRN Reason: Heartburn/Nausea Albuterol Sulfate (Albuterol Sulfate 90 Mcg 8 Gm Inhaler) 2 puff INHALE RQ4H PRN PRN Reason: Wheezing Amlodipine Besylate (Amlodipine Besylate 5 Mg Tablet) 5 mg PO DAILY [facility]; Protocol Last Admin: 10/12/23 08:29 Dose: 5 mg Divalproex Sodium (Divalproex Sodium Sprinkles 125 Mg ) 250 mg PO TID [facility] Last Admin: 10/12/23 08:28 Dose: 250 mg Emtricitabine/Tenofovir (Emtricitabin/Tenofovir 200/300 Tablet) 1 tab PO DAILY [facility] Last Admin: 10/12/23 08:29 Dose: 1 tab Haloperidol (Haloperidol 5 Mg Tablet) 5 mg PO BID [facility] Last Admin: 10/12/23 08:29 Dose: 5 mg Haloperidol Decanoate (Haloperidol Decanoate 50 Mg/Ml Vial) 100 mg IM Q28D [facility] Levetiracetam (Levetiracetam 500 Mg Tablet) 500 mg PO BID [facility] Last Admin: 10/12/23 08:28 Dose: 500 mg Magnesium Hydroxide (Milk Of Magnesia 30 Ml Oral.Susp) 30 ml PO DAILY PRN PRN Reason: Constipation Mirtazapine (Mirtazapine 15 Mg Tablet) 15 mg PO BEDTIME [facility] Last Admin: 10/11/23 20:41 Dose: 15 mg Nicotine Polacrilex (Nicotine Polacrilex 2 Mg Gum) 4 mg BUCCAL Q2H PRN PRN Reason: Nicotine Cravings Olanzapine (Olanzapine 5 Mg Tablet) 5 mg PO BID@0800,1500 [facility] Last Admin: 10/12/23 08:29 Dose: 5 mg Olanzapine (Olanzapine 10 Mg Tablet) 10 mg PO BEDTIME [facility] Last Admin: 10/11/23 20:41 Dose: 10 mg Olanzapine (Olanzapine 10 Mg Vial) 10 mg IM TID PRN PRN Reason: if refuses PO zyprexa;max 30mg Last Admin: 10/11/23 09:20 Dose: 10 mg Polyethylene Glycol (Polyethylene Glycol 3350 17 Gm Powd.Pack) 17 gm PO DAILY PRN PRN Reason: Constipation Rilpivirine (Rilpivirine Hcl 25 Mg Tablet) 25 mg PO DAILY [facility] Last Admin: 10/12/23 08:29 Dose: 25 mg Thiamine HCl (Thiamine Hcl 100 Mg Tablet) 100 mg PO DAILY [facility] Last Admin: 10/12/23 08:28 Dose: 100 mg Trazodone HCl (Trazodone Hcl 50 Mg Tablet) 50 mg PO BEDTIME MRX1 PRN PRN Reason: Insomnia Last Admin: 10/10/23 20:45 Dose: 50 mg Allergies Allergies Allergy/AdvReac Type Severity Reaction Status Date / Time No Known Allergies Allergy Unverified 01/28/20 16:07 [No Known Allergies*] Assessment & Plan Assessment & Plan (1) Schizoaffective disorder, bipolar type: Status: Acute Code(s): F25.0 - Schizoaffective disorder, bipolar type (2) Dementia: Status: Acute Code(s): F03.90 - Unspecified dementia, unspecified severity, without behavioral disturbance, psychotic disturbance, mood disturbance, and anxiety (3) Noncompliance: Status: Acute Code(s): Z91.199 - Patient's noncompliance with other medical treatment and regimen due to unspecified reason Plan The patient is an elderly male with a past history of schizoaffective disorder, dementia, HIV and other medical problems, chronically mentally ill resident of assisted living facility referred to this facility after he became non compliant with medications with daniella and psychosis. The patient was assessed by crisis and transferring to this facility for psychiatric stabilization. At the moment of the interview the patient was able to contract for safety. Plan 1. Gather collateral information. 2. Continue with regular medications, we are not going to change his Depakote, olanzapine and Haldol Decanoate. 3. Reassessment with results. 4. 15 minutes checks since the patient is able to contract for safety. 5. Change Zyprexa to Zydis to avoid cheeking on October 02. 6. IM zyprexa ordered 10 mg t.i.d. p.r.n. refusal of p.o. as per court order. Total dose up to 30 mg a day. 10/12/2023: No changes to current treatment plan. Medications as per court order Reason for continued inpatient stay Substantial Risk for: inability to function Time Spent With Patient Time: Total time managing care of this patient today ____ minutes.
--- NOTE | 2023-10-12 22:39 | PC.NURSE ---
Aristeo had a 1 minute hold from 2056 to 2057 on 10/12/23 to administer IM backup zypreza
--- NOTE | 2023-10-12 22:55 | PM.EVENT ---
Event Note Date of Service: 10/12/23 Event Note: Patient with Pedraza order refused to take his medications earlier tonight and had to be physically restrained by staff in order to administer IM Zyprexa in left glute at 20:57. Patient seen and visually examined in room where patient is resting on his bed. Patient remains agitated and confrontational and will not allow for close physical examination but does not appear to be in any physical acute distress. Patient seen moving all extremities spontaneously, and no clear signs of physical trauma noted on extremities. No reduced mobility or ROM secondary to pain noted. Time Spent With Patient Time: Total time managing care of this patient today ____ minutes.
--- NOTE | 2023-10-13 11:04 | HO.PSYCHPN ---
Subjective Subjective Date of Service: 10/13/23 Reason For Visit: F32.9 Interim History: Met with patient. Discussed with nursing. Had to be held for IM medications as per court order. With typewriter mechanic is very irritable. Making bizarre statements and paranoid. Was talking about his brain being extremely tiny, which is also the case with all humans. Eventually told typewriter mechanic to leave room. Intermittently visible in the milieu as per staff. Medication Compliance: Yes ( As per court order) Side effects from medications: No Attending Groups: No Review of Systems Acute medical concerns: No Review of Systems Review of Systems General: No fevers, malaise, unintentional weight loss HEENT: No blurred vision, diplopia. No sore throat, nasal congestion, rhinorrhea, sinus pain, ear pain Cardiovascular: No chest pain, palpitations, or leg edema Respiratory: No shortness of breath, wheezing, cough GI: No abdominal pain, nausea, vomiting, diarrhea, constipation, melena, hematochezia : No dysuria, hematuria, increased urinary frequency, decreased urinary output MSK: No myalgia, back pain Neuro: No headaches, weakness, paresthesias Skin: No rashes or lesions Yes Unobtainable due to mental status Mental Status Exam Mental Status Exam Patient Appearance: Unkempt Patient Orientation: Person and Situation Level of Consciousness: Awake and Appropriate Patient Behavior: Guarded and Passive Mood Description: Withdrawn Affect Description: Labile Patient Cognition Impaired: Yes Ability to Follow Directions: Fair Speech Pattern: Clear Delusions: Paranoid Ideation Thought Content: positive for Tangential and positive for Disorganized Diagnostics Vital Signs (24Hr): BMI result Body Mass Index 17.4 Medications Medications Current Medications Acetaminophen (Acetaminophen 325 Mg Tablet) 650 mg PO Q6H PRN PRN Reason: Headache/Pain Mild Scale (1-3) Last Admin: 10/06/23 01:21 Dose: 650 mg Acetaminophen (Acetaminophen 325 Mg Tablet) 650 mg PO Q6H PRN PRN Reason: Pain (Scale Score 1-3) Al Hydroxide/Mg Hydroxide (Magnesium Hydrox/Alum Hydrox 30 Ml Oral.Susp) 30 ml PO Q6H PRN PRN Reason: Heartburn/Nausea Albuterol Sulfate (Albuterol Sulfate 90 Mcg 8 Gm Inhaler) 2 puff INHALE RQ4H PRN PRN Reason: Wheezing Amlodipine Besylate (Amlodipine Besylate 5 Mg Tablet) 5 mg PO DAILY [facility]; Protocol Last Admin: 10/13/23 09:24 Dose: Not Given Divalproex Sodium (Divalproex Sodium Sprinkles 125 Mg ) 250 mg PO TID [facility] Last Admin: 10/13/23 09:24 Dose: Not Given Emtricitabine/Tenofovir (Emtricitabin/Tenofovir 200/300 Tablet) 1 tab PO DAILY [facility] Last Admin: 10/13/23 09:25 Dose: Not Given Haloperidol (Haloperidol 5 Mg Tablet) 5 mg PO BID [facility] Last Admin: 10/13/23 09:25 Dose: Not Given Haloperidol Decanoate (Haloperidol Decanoate 50 Mg/Ml Vial) 100 mg IM Q28D [facility] Levetiracetam (Levetiracetam 500 Mg Tablet) 500 mg PO BID [facility] Last Admin: 10/13/23 09:25 Dose: Not Given Magnesium Hydroxide (Milk Of Magnesia 30 Ml Oral.Susp) 30 ml PO DAILY PRN PRN Reason: Constipation Mirtazapine (Mirtazapine 15 Mg Tablet) 15 mg PO BEDTIME [facility] Last Admin: 10/12/23 23:03 Dose: Not Given Nicotine Polacrilex (Nicotine Polacrilex 2 Mg Gum) 4 mg BUCCAL Q2H PRN PRN Reason: Nicotine Cravings Olanzapine (Olanzapine 5 Mg Tablet) 5 mg PO BID@0800,1500 [facility] Last Admin: 10/13/23 09:24 Dose: Not Given Olanzapine (Olanzapine 10 Mg Tablet) 10 mg PO BEDTIME [facility] Last Admin: 10/12/23 23:03 Dose: Not Given Olanzapine (Olanzapine 10 Mg Vial) 10 mg IM TID PRN PRN Reason: if refuses PO zyprexa;max 30mg Last Admin: 10/11/23 09:20 Dose: 10 mg Polyethylene Glycol (Polyethylene Glycol 3350 17 Gm Powd.Pack) 17 gm PO DAILY PRN PRN Reason: Constipation Rilpivirine (Rilpivirine Hcl 25 Mg Tablet) 25 mg PO DAILY [facility] Last Admin: 10/13/23 09:25 Dose: Not Given Thiamine HCl (Thiamine Hcl 100 Mg Tablet) 100 mg PO DAILY [facility] Last Admin: 10/13/23 09:25 Dose: Not Given Trazodone HCl (Trazodone Hcl 50 Mg Tablet) 50 mg PO BEDTIME MRX1 PRN PRN Reason: Insomnia Last Admin: 10/10/23 20:45 Dose: 50 mg Allergies Allergies Allergy/AdvReac Type Severity Reaction Status Date / Time No Known Allergies Allergy Unverified 01/28/20 16:07 [No Known Allergies*] Assessment & Plan Assessment & Plan (1) Schizoaffective disorder, bipolar type: Status: Acute Code(s): F25.0 - Schizoaffective disorder, bipolar type (2) Dementia: Status: Acute Code(s): F03.90 - Unspecified dementia, unspecified severity, without behavioral disturbance, psychotic disturbance, mood disturbance, and anxiety (3) Noncompliance: Status: Acute Code(s): Z91.199 - Patient's noncompliance with other medical treatment and regimen due to unspecified reason Plan The patient is an elderly male with a past history of schizoaffective disorder, dementia, HIV and other medical problems, chronically mentally ill resident of assisted living facility referred to this facility after he became non compliant with medications with daniella and psychosis. The patient was assessed by crisis and transferring to this facility for psychiatric stabilization. At the moment of the interview the patient was able to contract for safety. Plan 1. Gather collateral information. 2. Continue with regular medications, we are not going to change his Depakote, olanzapine and Haldol Decanoate. 3. Reassessment with results. 4. 15 minutes checks since the patient is able to contract for safety. 5. Change Zyprexa to Zydis to avoid cheeking on October 02. 6. IM zyprexa ordered 10 mg t.i.d. p.r.n. refusal of p.o. as per court order. Total dose up to 30 mg a day. 10/13/2023: No changes to current treatment plan. Medications as per court order Reason for continued inpatient stay Substantial Risk for: inability to function Time Spent With Patient Time: Total time managing care of this patient today ____ minutes.
[2023-10-13] MEDS: OLANZapine 10 MG VIAL 5 MG IM ×2 (11:25→14:58)
--- NOTE | 2023-10-13 11:48 | PC.NURSE ---
5mg IM Zyprexa administered in L gluteus for refusal of PO Zyprexa. Patient cooperative and tolerated well.
[2023-10-13] MEDS: Divalproex Sodium Sprinkles 125 MG CAP.DR.SPR 250 MG PO ×2 (14:33→20:27)
--- NOTE | 2023-10-13 14:59 | PC.NURSE ---
Patient medicated with IM Zyprexa 5 mg at 1459 for refusal of PO . Administered in R Gluteus eriberto. Patient was cooperative and tolerated well.
[2023-10-13] MEDS: levETIRAcetam 500 MG TABLET PO (20:27)
[2023-10-13] MEDS: OLANZapine 10 MG TABLET PO (20:27)
[2023-10-13] MEDS: Mirtazapine 15 MG TABLET PO (20:27)
[2023-10-13] MEDS: HaloperidoL 5 MG TABLET PO (20:27)
[2023-10-14 08:00] VITALS: PULSE 115; RESP 18; O2SAT 98
[2023-10-14] MEDS: OLANZapine 5 MG TABLET PO ×2 (09:42→15:34)
[2023-10-14] MEDS: HaloperidoL 5 MG TABLET PO ×2 (09:42→20:28)
--- NOTE | 2023-10-14 14:41 | HO.PSYCHPN ---
Subjective Subjective Date of Service: 10/14/23 Reason For Visit: F32.9 Subjective Notes: Pedraza Order and Conditional Voluntary Interim History: The nursing staff reported the patient had been loud at times, he refused p.o. medication received Zyprexa IM. Yesterday he had poor p.o. intake but later today he ate well today in the morning. He slept 6 hours. The manager social services reported that [facility] worker will come today and assessing. On interview the patient denies new symptoms pleasant but grossly disorganized. Mental Status Exam Mental Status Exam Patient Appearance: Appropriate Patient Orientation: Person and Situation Level of Consciousness: Awake and Appropriate Patient Behavior: Guarded and Passive Mood Description: Withdrawn Affect Description: Calm and Labile Patient Cognition Impaired: Yes Ability to Follow Directions: Good Speech Pattern: Clear Hallucinations: Auditory Delusions: Grandiose and Ideas of Reference Thought Process: Illogical and Distracted Thought Content: positive for Circumstantial and positive for Incoherent Judgement: Poor Diagnostics Vital Signs (24Hr): Vital Signs - 24 hr 10/14/23 08:00 Pulse Rate 115 H Respiratory Rate 18 Pulse Oximetry 98 Oxygen Delivery Method Room Air BMI result Body Mass Index 17.4 Medications Medications Current Medications Acetaminophen (Acetaminophen 325 Mg Tablet) 650 mg PO Q6H PRN PRN Reason: Headache/Pain Mild Scale (1-3) Last Admin: 10/06/23 01:21 Dose: 650 mg Acetaminophen (Acetaminophen 325 Mg Tablet) 650 mg PO Q6H PRN PRN Reason: Pain (Scale Score 1-3) Al Hydroxide/Mg Hydroxide (Magnesium Hydrox/Alum Hydrox 30 Ml Oral.Susp) 30 ml PO Q6H PRN PRN Reason: Heartburn/Nausea Albuterol Sulfate (Albuterol Sulfate 90 Mcg 8 Gm Inhaler) 2 puff INHALE RQ4H PRN PRN Reason: Wheezing Amlodipine Besylate (Amlodipine Besylate 5 Mg Tablet) 5 mg PO DAILY [facility]; Protocol Last Admin: 10/14/23 09:47 Dose: Not Given Divalproex Sodium (Divalproex Sodium Sprinkles 125 Mg ) 250 mg PO TID [facility] Last Admin: 10/14/23 09:47 Dose: Not Given Emtricitabine/Tenofovir (Emtricitabin/Tenofovir 200/300 Tablet) 1 tab PO DAILY [facility] Last Admin: 10/14/23 09:47 Dose: Not Given Haloperidol (Haloperidol 5 Mg Tablet) 5 mg PO BID [facility] Last Admin: 10/14/23 09:42 Dose: 5 mg Haloperidol Decanoate (Haloperidol Decanoate 50 Mg/Ml Vial) 100 mg IM Q28D [facility] Levetiracetam (Levetiracetam 500 Mg Tablet) 500 mg PO BID [facility] Last Admin: 10/14/23 09:47 Dose: Not Given Magnesium Hydroxide (Milk Of Magnesia 30 Ml Oral.Susp) 30 ml PO DAILY PRN PRN Reason: Constipation Mirtazapine (Mirtazapine 15 Mg Tablet) 15 mg PO BEDTIME [facility] Last Admin: 10/13/23 20:27 Dose: 15 mg Nicotine Polacrilex (Nicotine Polacrilex 2 Mg Gum) 4 mg BUCCAL Q2H PRN PRN Reason: Nicotine Cravings Olanzapine (Olanzapine 5 Mg Tablet) 5 mg PO BID@0800,1500 [facility] Last Admin: 10/14/23 09:42 Dose: 5 mg Olanzapine (Olanzapine 10 Mg Tablet) 10 mg PO BEDTIME [facility] Last Admin: 10/13/23 20:27 Dose: 10 mg Olanzapine (Olanzapine 10 Mg Vial) 10 mg IM BEDTIME PRN PRN Reason: if refuses bedtime PO zyprexa Olanzapine (Olanzapine 10 Mg Vial) 5 mg IM BID@0800,1500 PRN PRN Reason: if refuses 0800/1500 PO zyprexa Last Admin: 10/13/23 14:58 Dose: 5 mg Polyethylene Glycol (Polyethylene Glycol 3350 17 Gm Powd.Pack) 17 gm PO DAILY PRN PRN Reason: Constipation Rilpivirine (Rilpivirine Hcl 25 Mg Tablet) 25 mg PO DAILY [facility] Last Admin: 10/14/23 09:47 Dose: Not Given Thiamine HCl (Thiamine Hcl 100 Mg Tablet) 100 mg PO DAILY [facility] Last Admin: 10/14/23 09:47 Dose: Not Given Trazodone HCl (Trazodone Hcl 50 Mg Tablet) 50 mg PO BEDTIME MRX1 PRN PRN Reason: Insomnia Last Admin: 10/10/23 20:45 Dose: 50 mg Allergies Allergies Allergy/AdvReac Type Severity Reaction Status Date / Time No Known Allergies Allergy Unverified 01/28/20 16:07 [No Known Allergies*] Assessment & Plan Assessment & Plan (1) Schizoaffective disorder, bipolar type: Status: Acute Code(s): F25.0 - Schizoaffective disorder, bipolar type (2) Dementia: Status: Acute Code(s): F03.90 - Unspecified dementia, unspecified severity, without behavioral disturbance, psychotic disturbance, mood disturbance, and anxiety (3) Noncompliance: Status: Acute Code(s): Z91.199 - Patient's noncompliance with other medical treatment and regimen due to unspecified reason Plan The patient is an elderly male with a past history of schizoaffective disorder, dementia, HIV and other medical problems, chronically mentally ill resident of assisted living facility referred to this facility after he became non compliant with medications with daniella and psychosis. The patient was assessed by crisis and transferring to this facility for psychiatric stabilization. At the moment of the interview the patient was able to contract for safety. Plan 1. Gather collateral information. 2. Continue with regular medications, we are not going to change his Depakote, olanzapine and Haldol Decanoate. 3. Reassessment with results. 4. 15 minutes checks since the patient is able to contract for safety. 5. Change Zyprexa to Zydis to avoid cheeking on October 02. 6. IM zyprexa ordered 10 mg t.i.d. p.r.n. refusal of p.o. as per court order. Total dose up to 30 mg a day. Reason for continued inpatient stay Substantial Risk for: inability to function, rapid decompensation and med/psych decompensation Time Spent With Patient Time: Total time managing care of this patient today __20__ minutes.
[2023-10-14] MEDS: Divalproex Sodium Sprinkles 125 MG CAP.DR.SPR 250 MG PO ×2 (15:34→20:28)
[2023-10-14 20:00] VITALS: BP 129/90; PULSE 100; RESP 18; TEMP 36.6; O2SAT 97
[2023-10-14] MEDS: levETIRAcetam 500 MG TABLET PO (20:28)
[2023-10-14] MEDS: OLANZapine 10 MG TABLET PO (20:28)
[2023-10-14] MEDS: Mirtazapine 15 MG TABLET PO (20:28)
[2023-10-15 08:00] VITALS: PULSE 114; RESP 18; TEMP 36.4; O2SAT 98
[2023-10-15] MEDS: levETIRAcetam 500 MG TABLET PO ×2 (09:11→19:41)
[2023-10-15] MEDS: Divalproex Sodium Sprinkles 125 MG CAP.DR.SPR 250 MG PO ×3 (09:11→19:42)
[2023-10-15] MEDS: HaloperidoL 5 MG TABLET PO ×2 (09:11→19:42)
[2023-10-15] MEDS: OLANZapine 5 MG TABLET PO ×2 (09:11→14:42)
[2023-10-15] MEDS: Thiamine HCL 100 MG TABLET PO (09:11)
[2023-10-15] MEDS: Emtricitabin/Tenofovir 200/300 TABLET 1 TAB PO (09:11)
[2023-10-15] MEDS: Rilpivirine HCL 25 MG TABLET PO (09:15)
--- NOTE | 2023-10-15 11:24 | HO.PSYCHPN ---
Subjective Subjective Date of Service: 10/15/23 Reason For Visit: F32.9 Subjective Notes: Conditional Voluntary Interim History: The nursing staff reported the patient refused his Zyprexa last night required IM as per court order. He remains paranoid and grandiose nonsensical at times. He slept 2 hours. On interview the patient was pleasant to talk very intrusive, with fast speech and nonsensical no changes in his mental status. Mental Status Exam Mental Status Exam Patient Appearance: Appropriate and Unkempt Patient Orientation: Person and Situation Level of Consciousness: Awake and Appropriate Patient Behavior: Guarded and Passive Mood Description: Withdrawn Affect Description: Labile Patient Cognition Impaired: Yes Ability to Follow Directions: Good Speech Pattern: Clear Hallucinations: Auditory Delusions: Paranoid Ideation, Grandiose and Ideas of Reference Thought Process: Distracted and Slowed Thinking Thought Content: positive for [place] and positive for Poverty of Content Judgement: Poor Diagnostics Vital Signs (24Hr): Vital Signs - 24 hr 10/14/23 20:00 10/15/23 08:00 Temperature 97.9 F 97.6 F Pulse Rate 100 114 H Respiratory Rate 18 18 Blood Pressure 129/90 H Pulse Oximetry 97 98 Oxygen Delivery Method Room Air Room Air BMI result Body Mass Index 17.4 Medications Medications Current Medications Acetaminophen (Acetaminophen 325 Mg Tablet) 650 mg PO Q6H PRN PRN Reason: Headache/Pain Mild Scale (1-3) Last Admin: 10/06/23 01:21 Dose: 650 mg Acetaminophen (Acetaminophen 325 Mg Tablet) 650 mg PO Q6H PRN PRN Reason: Pain (Scale Score 1-3) Al Hydroxide/Mg Hydroxide (Magnesium Hydrox/Alum Hydrox 30 Ml Oral.Susp) 30 ml PO Q6H PRN PRN Reason: Heartburn/Nausea Albuterol Sulfate (Albuterol Sulfate 90 Mcg 8 Gm Inhaler) 2 puff INHALE RQ4H PRN PRN Reason: Wheezing Amlodipine Besylate (Amlodipine Besylate 5 Mg Tablet) 5 mg PO DAILY [facility]; Protocol Last Admin: 10/15/23 09:12 Dose: Not Given Divalproex Sodium (Divalproex Sodium Sprinkles 125 Mg ) 250 mg PO TID [facility] Last Admin: 10/15/23 09:11 Dose: 250 mg Emtricitabine/Tenofovir (Emtricitabin/Tenofovir 200/300 Tablet) 1 tab PO DAILY [facility] Last Admin: 10/15/23 09:11 Dose: 1 tab Haloperidol (Haloperidol 5 Mg Tablet) 5 mg PO BID [facility] Last Admin: 10/15/23 09:11 Dose: 5 mg Haloperidol Decanoate (Haloperidol Decanoate 50 Mg/Ml Vial) 100 mg IM Q28D [facility] Levetiracetam (Levetiracetam 500 Mg Tablet) 500 mg PO BID [facility] Last Admin: 10/15/23 09:11 Dose: 500 mg Magnesium Hydroxide (Milk Of Magnesia 30 Ml Oral.Susp) 30 ml PO DAILY PRN PRN Reason: Constipation Mirtazapine (Mirtazapine 15 Mg Tablet) 15 mg PO BEDTIME [facility] Last Admin: 10/14/23 20:28 Dose: 15 mg Nicotine Polacrilex (Nicotine Polacrilex 2 Mg Gum) 4 mg BUCCAL Q2H PRN PRN Reason: Nicotine Cravings Olanzapine (Olanzapine 5 Mg Tablet) 5 mg PO BID@0800,1500 [facility] Last Admin: 10/15/23 09:11 Dose: 5 mg Olanzapine (Olanzapine 10 Mg Tablet) 10 mg PO BEDTIME [facility] Last Admin: 10/14/23 20:28 Dose: 10 mg Olanzapine (Olanzapine 10 Mg Vial) 10 mg IM BEDTIME PRN PRN Reason: if refuses bedtime PO zyprexa Olanzapine (Olanzapine 10 Mg Vial) 5 mg IM BID@0800,1500 PRN PRN Reason: if refuses 0800/1500 PO zyprexa Last Admin: 10/13/23 14:58 Dose: 5 mg Polyethylene Glycol (Polyethylene Glycol 3350 17 Gm Powd.Pack) 17 gm PO DAILY PRN PRN Reason: Constipation Rilpivirine (Rilpivirine Hcl 25 Mg Tablet) 25 mg PO DAILY [facility] Last Admin: 10/15/23 09:15 Dose: 25 mg Thiamine HCl (Thiamine Hcl 100 Mg Tablet) 100 mg PO DAILY [facility] Last Admin: 10/15/23 09:11 Dose: 100 mg Trazodone HCl (Trazodone Hcl 50 Mg Tablet) 50 mg PO BEDTIME MRX1 PRN PRN Reason: Insomnia Last Admin: 10/10/23 20:45 Dose: 50 mg Allergies Allergies Allergy/AdvReac Type Severity Reaction Status Date / Time No Known Allergies Allergy Unverified 01/28/20 16:07 [No Known Allergies*] Assessment & Plan Assessment & Plan (1) Schizoaffective disorder, bipolar type: Status: Acute Code(s): F25.0 - Schizoaffective disorder, bipolar type (2) Dementia: Status: Acute Code(s): F03.90 - Unspecified dementia, unspecified severity, without behavioral disturbance, psychotic disturbance, mood disturbance, and anxiety (3) Noncompliance: Status: Acute Code(s): Z91.199 - Patient's noncompliance with other medical treatment and regimen due to unspecified reason Plan The patient is an elderly male with a past history of schizoaffective disorder, dementia, HIV and other medical problems, chronically mentally ill resident of assisted living facility referred to this facility after he became non compliant with medications with daniella and psychosis. The patient was assessed by crisis and transferring to this facility for psychiatric stabilization. At the moment of the interview the patient was able to contract for safety. Plan 1. Gather collateral information. 2. Continue with regular medications, we are not going to change his Depakote, olanzapine and Haldol Decanoate. 3. Reassessment with results. 4. 15 minutes checks since the patient is able to contract for safety. 5. Change Zyprexa to Zydis to avoid cheeking on October 02. 6. IM zyprexa ordered 10 mg t.i.d. p.r.n. refusal of p.o. as per court order. Total dose up to 30 mg a day. Reason for continued inpatient stay Substantial Risk for: inability to function, rapid decompensation and med/psych decompensation Time Spent With Patient Time: Total time managing care of this patient today __20__ minutes.
[2023-10-15] MEDS: OLANZapine 10 MG TABLET PO (19:41)
[2023-10-15] MEDS: Mirtazapine 15 MG TABLET PO (19:42)
[2023-10-15 20:00] VITALS: BP 135/98; PULSE 118; TEMP 36.4; O2SAT 118
[2023-10-16] MEDS: OLANZapine 5 MG TABLET PO ×3 (02:27→15:16)
[2023-10-16 08:08] VITALS: BP 193/91; PULSE 117; RESP 22; TEMP 36.9; O2SAT 98
[2023-10-16 08:09] VITALS: BP 193/91
[2023-10-16] MEDS: amLODIPine Besylate 5 MG TABLET PO (08:09)
[2023-10-16] MEDS: levETIRAcetam 500 MG TABLET PO ×2 (08:11→20:12)
[2023-10-16] MEDS: Rilpivirine HCL 25 MG TABLET PO (08:11)
[2023-10-16] MEDS: Emtricitabin/Tenofovir 200/300 TABLET 1 TAB PO (08:11)
[2023-10-16] MEDS: Divalproex Sodium Sprinkles 125 MG CAP.DR.SPR 250 MG PO ×3 (08:11→20:11)
[2023-10-16] MEDS: HaloperidoL 5 MG TABLET PO ×2 (08:11→20:12)
[2023-10-16] MEDS: Thiamine HCL 100 MG TABLET PO (08:24)
--- NOTE | 2023-10-16 14:19 | HO.PSYCHPN ---
Subjective Subjective Date of Service: 10/16/23 Reason For Visit: F32.9 Subjective Notes: Conditional Voluntary Interim History: The nursing staff reported the patient had being manic, he slept only 2 hours he took medications but then refused his enalapril. He needed p.r.n. Zyprexa IM again. On assessment the patient was grandiose, disorganized easily irritable and angry. We are increasing Zyprexa to 15 mg p.o. q.h.s. since not working the old dose. Mental Status Exam Mental Status Exam Patient Appearance: Unkempt Patient Orientation: Person Level of Consciousness: Awake and Appropriate Patient Behavior: Guarded and Passive Mood Description: Withdrawn Affect Description: Labile Patient Cognition Impaired: Yes Ability to Follow Directions: Fair Speech Pattern: Clear Hallucinations: Auditory Delusions: Paranoid Ideation, Grandiose and Ideas of Reference Thought Process: Distracted and Slowed Thinking Thought Content: positive for [place], positive for [place] and positive for Thought Blocking Judgement: Poor Diagnostics Vital Signs (24Hr): Vital Signs - 24 hr 10/15/23 20:00 10/16/23 08:08 10/16/23 08:09 Temperature 97.5 F 98.4 F Pulse Rate 118 H 117 H Respiratory Rate 22 H Blood Pressure 135/98 H 193/91 H 193/91 H Pulse Oximetry 118 H 98 Oxygen Delivery Method Room Air Room Air BMI result Body Mass Index 17.4 Medications Medications Current Medications Acetaminophen (Acetaminophen 325 Mg Tablet) 650 mg PO Q6H PRN PRN Reason: Headache/Pain Mild Scale (1-3) Last Admin: 10/06/23 01:21 Dose: 650 mg Acetaminophen (Acetaminophen 325 Mg Tablet) 650 mg PO Q6H PRN PRN Reason: Pain (Scale Score 1-3) Al Hydroxide/Mg Hydroxide (Magnesium Hydrox/Alum Hydrox 30 Ml Oral.Susp) 30 ml PO Q6H PRN PRN Reason: Heartburn/Nausea Albuterol Sulfate (Albuterol Sulfate 90 Mcg 8 Gm Inhaler) 2 puff INHALE RQ4H PRN PRN Reason: Wheezing Amlodipine Besylate (Amlodipine Besylate 5 Mg Tablet) 5 mg PO DAILY [facility]; Protocol Last Admin: 10/16/23 08:09 Dose: 5 mg Divalproex Sodium (Divalproex Sodium Sprinkles 125 Mg ) 250 mg PO TID [facility] Last Admin: 10/16/23 08:11 Dose: 250 mg Emtricitabine/Tenofovir (Emtricitabin/Tenofovir 200/300 Tablet) 1 tab PO DAILY [facility] Last Admin: 10/16/23 08:11 Dose: 1 tab Haloperidol (Haloperidol 5 Mg Tablet) 5 mg PO BID [facility] Last Admin: 10/16/23 08:11 Dose: 5 mg Haloperidol Decanoate (Haloperidol Decanoate 50 Mg/Ml Vial) 100 mg IM Q28D [facility] Levetiracetam (Levetiracetam 500 Mg Tablet) 500 mg PO BID [facility] Last Admin: 10/16/23 08:11 Dose: 500 mg Magnesium Hydroxide (Milk Of Magnesia 30 Ml Oral.Susp) 30 ml PO DAILY PRN PRN Reason: Constipation Mirtazapine (Mirtazapine 15 Mg Tablet) 15 mg PO BEDTIME [facility] Last Admin: 10/15/23 19:42 Dose: 15 mg Nicotine Polacrilex (Nicotine Polacrilex 2 Mg Gum) 4 mg BUCCAL Q2H PRN PRN Reason: Nicotine Cravings Olanzapine (Olanzapine 5 Mg Tablet) 5 mg PO BID@0800,1500 [facility] Last Admin: 10/16/23 08:11 Dose: 5 mg Olanzapine (Olanzapine 10 Mg Vial) 10 mg IM BEDTIME PRN PRN Reason: if refuses bedtime PO zyprexa Olanzapine (Olanzapine 10 Mg Vial) 5 mg IM BID@0800,1500 PRN PRN Reason: if refuses 0800/1500 PO zyprexa Last Admin: 10/13/23 14:58 Dose: 5 mg Olanzapine (Olanzapine 7.5 Mg Tablet) 15 mg PO BEDTIME [facility] Polyethylene Glycol (Polyethylene Glycol 3350 17 Gm Powd.Pack) 17 gm PO DAILY PRN PRN Reason: Constipation Rilpivirine (Rilpivirine Hcl 25 Mg Tablet) 25 mg PO DAILY [facility] Last Admin: 10/16/23 08:11 Dose: 25 mg Thiamine HCl (Thiamine Hcl 100 Mg Tablet) 100 mg PO DAILY [facility] Last Admin: 10/16/23 08:24 Dose: 100 mg Trazodone HCl (Trazodone Hcl 50 Mg Tablet) 50 mg PO BEDTIME MRX1 PRN PRN Reason: Insomnia Last Admin: 10/10/23 20:45 Dose: 50 mg Allergies Allergies Allergy/AdvReac Type Severity Reaction Status Date / Time No Known Allergies Allergy Unverified 01/28/20 16:07 [No Known Allergies*] Assessment & Plan Assessment & Plan (1) Schizoaffective disorder, bipolar type: Status: Acute Code(s): F25.0 - Schizoaffective disorder, bipolar type (2) Dementia: Status: Acute Code(s): F03.90 - Unspecified dementia, unspecified severity, without behavioral disturbance, psychotic disturbance, mood disturbance, and anxiety (3) Noncompliance: Status: Acute Code(s): Z91.199 - Patient's noncompliance with other medical treatment and regimen due to unspecified reason Plan The patient is an elderly male with a past history of schizoaffective disorder, dementia, HIV and other medical problems, chronically mentally ill resident of assisted living facility referred to this facility after he became non compliant with medications with daniella and psychosis. The patient was assessed by crisis and transferring to this facility for psychiatric stabilization. At the moment of the interview the patient was able to contract for safety. Plan 1. Gather collateral information. 2. Continue with regular medications, we are not going to change his Depakote, olanzapine and Haldol Decanoate. 3. Reassessment with results. 4. 15 minutes checks since the patient is able to contract for safety. 5. Change Zyprexa to Zydis to avoid cheeking on October 02. 6. IM zyprexa ordered 10 mg t.i.d. p.r.n. refusal of p.o. as per court order. Total dose up to 30 mg a day. 7. Zyprexa increased up to 15 mg p.o. q.h.s. to target daniella and psychosis. Started on October 15 Reason for continued inpatient stay Substantial Risk for: inability to function, rapid decompensation and med/psych decompensation Time Spent With Patient Time: Total time managing care of this patient today _20___ minutes.
[2023-10-16 20:00] VITALS: PULSE 109; RESP 20; TEMP 37.1; O2SAT 98
[2023-10-16] MEDS: OLANZapine 7.5 MG TABLET 15 MG PO (20:12)
[2023-10-16] MEDS: Mirtazapine 15 MG TABLET PO (20:12)
[2023-10-17 07:00] VITALS: BMI 17.1
[2023-10-17 08:00] VITALS: BP 111/67; PULSE 109; RESP 18; TEMP 36.1; O2SAT 96
[2023-10-17] MEDS: Rilpivirine HCL 25 MG TABLET PO (08:38)
[2023-10-17] MEDS: Emtricitabin/Tenofovir 200/300 TABLET 1 TAB PO (08:38)
[2023-10-17] MEDS: OLANZapine 5 MG TABLET PO ×2 (08:38→14:43)
[2023-10-17] MEDS: levETIRAcetam 500 MG TABLET PO ×2 (08:38→20:03)
[2023-10-17] MEDS: Divalproex Sodium Sprinkles 125 MG CAP.DR.SPR 250 MG PO ×3 (08:38→20:02)
[2023-10-17] MEDS: amLODIPine Besylate 5 MG TABLET PO (08:38)
[2023-10-17] MEDS: HaloperidoL 5 MG TABLET PO ×2 (08:38→20:03)
[2023-10-17] MEDS: Thiamine HCL 100 MG TABLET PO (08:38)
--- NOTE | 2023-10-17 13:21 | HO.PSYCHPN ---
Subjective Subjective Date of Service: 10/17/23 Reason For Visit: F32.9 Subjective Notes: Conditional Voluntary Interim History: The nursing staff reported the patient had been hyperverbal nonsensical. He eat poorly but he had been eating snacks all day long. He slept only a few hours a night. On interview the patient remains grossly manic and disorganized but easily redirectable less angry. Mental Status Exam Mental Status Exam Patient Appearance: Appropriate Patient Orientation: Person and Situation Level of Consciousness: Awake and Appropriate Patient Behavior: Guarded and Passive Mood Description: Withdrawn Affect Description: Constricted Patient Cognition Impaired: Yes Ability to Follow Directions: Poor Speech Pattern: Slurred and Impoverished Hallucinations: Auditory Delusions: Paranoid Ideation and Grandiose Thought Process: Illogical and Distracted Thought Content: positive for [place], positive for [employer] and positive for Thought Blocking Judgement: Poor Diagnostics Vital Signs (24Hr): Vital Signs - 24 hr 10/16/23 20:00 10/17/23 08:00 Temperature 98.7 F 97.0 F Pulse Rate 109 H 109 H Respiratory Rate 20 18 Blood Pressure 111/67 Pulse Oximetry 98 96 Oxygen Delivery Method Room Air Room Air BMI result Body Mass Index 17.4 Medications Medications Current Medications Acetaminophen (Acetaminophen 325 Mg Tablet) 650 mg PO Q6H PRN PRN Reason: Headache/Pain Mild Scale (1-3) Last Admin: 10/06/23 01:21 Dose: 650 mg Acetaminophen (Acetaminophen 325 Mg Tablet) 650 mg PO Q6H PRN PRN Reason: Pain (Scale Score 1-3) Al Hydroxide/Mg Hydroxide (Magnesium Hydrox/Alum Hydrox 30 Ml Oral.Susp) 30 ml PO Q6H PRN PRN Reason: Heartburn/Nausea Albuterol Sulfate (Albuterol Sulfate 90 Mcg 8 Gm Inhaler) 2 puff INHALE RQ4H PRN PRN Reason: Wheezing Amlodipine Besylate (Amlodipine Besylate 5 Mg Tablet) 5 mg PO DAILY [facility]; Protocol Last Admin: 10/17/23 08:38 Dose: 5 mg Divalproex Sodium (Divalproex Sodium Sprinkles 125 Mg ) 250 mg PO TID [facility] Last Admin: 10/17/23 08:38 Dose: 250 mg Emtricitabine/Tenofovir (Emtricitabin/Tenofovir 200/300 Tablet) 1 tab PO DAILY [facility] Last Admin: 10/17/23 08:38 Dose: 1 tab Haloperidol (Haloperidol 5 Mg Tablet) 5 mg PO BID [facility] Last Admin: 10/17/23 08:38 Dose: 5 mg Haloperidol Decanoate (Haloperidol Decanoate 50 Mg/Ml Vial) 100 mg IM Q28D [facility] Levetiracetam (Levetiracetam 500 Mg Tablet) 500 mg PO BID [facility] Last Admin: 10/17/23 08:38 Dose: 500 mg Magnesium Hydroxide (Milk Of Magnesia 30 Ml Oral.Susp) 30 ml PO DAILY PRN PRN Reason: Constipation Mirtazapine (Mirtazapine 15 Mg Tablet) 15 mg PO BEDTIME [facility] Last Admin: 10/16/23 20:12 Dose: 15 mg Nicotine Polacrilex (Nicotine Polacrilex 2 Mg Gum) 4 mg BUCCAL Q2H PRN PRN Reason: Nicotine Cravings Olanzapine (Olanzapine 5 Mg Tablet) 5 mg PO BID@0800,1500 [facility] Last Admin: 10/17/23 08:38 Dose: 5 mg Olanzapine (Olanzapine 10 Mg Vial) 10 mg IM BEDTIME PRN PRN Reason: if refuses bedtime PO zyprexa Olanzapine (Olanzapine 10 Mg Vial) 5 mg IM BID@0800,1500 PRN PRN Reason: if refuses 0800/1500 PO zyprexa Last Admin: 10/13/23 14:58 Dose: 5 mg Olanzapine (Olanzapine 7.5 Mg Tablet) 15 mg PO BEDTIME [facility] Last Admin: 10/16/23 20:12 Dose: 15 mg Polyethylene Glycol (Polyethylene Glycol 3350 17 Gm Powd.Pack) 17 gm PO DAILY PRN PRN Reason: Constipation Rilpivirine (Rilpivirine Hcl 25 Mg Tablet) 25 mg PO DAILY [facility] Last Admin: 10/17/23 08:38 Dose: 25 mg Thiamine HCl (Thiamine Hcl 100 Mg Tablet) 100 mg PO DAILY [facility] Last Admin: 10/17/23 08:38 Dose: 100 mg Trazodone HCl (Trazodone Hcl 50 Mg Tablet) 50 mg PO BEDTIME MRX1 PRN PRN Reason: Insomnia Last Admin: 10/10/23 20:45 Dose: 50 mg Allergies Allergies Allergy/AdvReac Type Severity Reaction Status Date / Time No Known Allergies Allergy Unverified 01/28/20 16:07 [No Known Allergies*] Assessment & Plan Assessment & Plan (1) Schizoaffective disorder, bipolar type: Status: Acute Code(s): F25.0 - Schizoaffective disorder, bipolar type (2) Dementia: Status: Acute Code(s): F03.90 - Unspecified dementia, unspecified severity, without behavioral disturbance, psychotic disturbance, mood disturbance, and anxiety (3) Noncompliance: Status: Acute Code(s): Z91.199 - Patient's noncompliance with other medical treatment and regimen due to unspecified reason Plan The patient is an elderly male with a past history of schizoaffective disorder, dementia, HIV and other medical problems, chronically mentally ill resident of assisted living facility referred to this facility after he became non compliant with medications with daniella and psychosis. The patient was assessed by crisis and transferring to this facility for psychiatric stabilization. At the moment of the interview the patient was able to contract for safety. Plan 1. Gather collateral information. 2. Continue with regular medications, we are not going to change his Depakote, olanzapine and Haldol Decanoate. 3. Reassessment with results. 4. 15 minutes checks since the patient is able to contract for safety. 5. Change Zyprexa to Zydis to avoid cheeking on October 02. 6. IM zyprexa ordered 10 mg t.i.d. p.r.n. refusal of p.o. as per court order. Total dose up to 30 mg a day. 7. Zyprexa increased up to 15 mg p.o. q.h.s. to target daniella and psychosis. Started on October 15 Reason for continued inpatient stay Substantial Risk for: inability to function, rapid decompensation and med/psych decompensation Time Spent With Patient Time: Total time managing care of this patient today __20__ minutes.
[2023-10-17] MEDS: OLANZapine 7.5 MG TABLET 15 MG PO (20:03)
[2023-10-17] MEDS: Mirtazapine 15 MG TABLET PO (20:03)
[2023-10-17 21:45] VITALS: BP 134/83; PULSE 108; RESP 20; TEMP 36.4; O2SAT 97
[2023-10-18] MEDS: Rilpivirine HCL 25 MG TABLET PO (08:18)
[2023-10-18] MEDS: Emtricitabin/Tenofovir 200/300 TABLET 1 TAB PO (08:18)
[2023-10-18] MEDS: levETIRAcetam 500 MG TABLET PO ×2 (08:18→22:41)
[2023-10-18] MEDS: OLANZapine 5 MG TABLET PO ×2 (08:18→14:22)
[2023-10-18] MEDS: Divalproex Sodium Sprinkles 125 MG CAP.DR.SPR 250 MG PO ×3 (08:18→22:38)
[2023-10-18] MEDS: Thiamine HCL 100 MG TABLET PO (08:18)
[2023-10-18] MEDS: HaloperidoL 5 MG TABLET PO ×2 (08:18→22:40)
--- NOTE | 2023-10-18 13:10 | P.PNPSI_ITS ---
Subjective Subjective Date of Service: 10/18/23 Reason For Visit: F32.9 Subjective Notes: [place] Order and Conditional Voluntary Interim History: The nursing staff reported the patient remains loud, labile with grandiose delusions and nonsensical at times. He had been taking his medications. Last night he slept only 1 hour.. On interview the patient remains manic, grossly psychotic. We are increasing Zyprexa to 20 mg p.o. q.h.s. Mental Status Exam Mental Status Exam Patient Appearance: Inappropriate and Unkempt Patient Orientation: Person and Situation Level of Consciousness: Awake Patient Behavior: Talkative and Restless Mood Description: Withdrawn Affect Description: Labile Patient Cognition Impaired: Yes Ability to Follow Directions: Fair Speech Pattern: Clear Hallucinations: None Delusions: Paranoid Ideation, Grandiose and Ideas of Reference Thought Process: Racing and Illogical Thought Content: positive for [place], positive for Poverty of Content and positive for Thought Blocking Judgement: Poor Diagnostics Vital Signs (24Hr): Vital Signs - 24 hr 10/17/23 21:45 Temperature 97.6 F Pulse Rate 108 H Respiratory Rate 20 Blood Pressure 134/83 Pulse Oximetry 97 Oxygen Delivery Method Room Air BMI result Body Mass Index 17.4 Medications Medications Current Medications Acetaminophen (Acetaminophen 325 Mg Tablet) 650 mg PO Q6H PRN PRN Reason: Headache/Pain Mild Scale (1-3) Last Admin: 10/06/23 01:21 Dose: 650 mg Acetaminophen (Acetaminophen 325 Mg Tablet) 650 mg PO Q6H PRN PRN Reason: Pain (Scale Score 1-3) Al Hydroxide/Mg Hydroxide (Magnesium Hydrox/Alum Hydrox 30 Ml Oral.Susp) 30 ml PO Q6H PRN PRN Reason: Heartburn/Nausea Albuterol Sulfate (Albuterol Sulfate 90 Mcg 8 Gm Inhaler) 2 puff INHALE RQ4H PRN PRN Reason: Wheezing Amlodipine Besylate (Amlodipine Besylate 5 Mg Tablet) 5 mg PO DAILY [facility]; Protocol Last Admin: 10/18/23 08:44 Dose: Not Given Divalproex Sodium (Divalproex Sodium Sprinkles 125 Mg ) 250 mg PO TID [facility] Last Admin: 10/18/23 08:18 Dose: 250 mg Emtricitabine/Tenofovir (Emtricitabin/Tenofovir 200/300 Tablet) 1 tab PO DAILY [facility] Last Admin: 10/18/23 08:18 Dose: 1 tab Haloperidol (Haloperidol 5 Mg Tablet) 5 mg PO BID [facility] Last Admin: 10/18/23 08:18 Dose: 5 mg Haloperidol Decanoate (Haloperidol Decanoate 50 Mg/Ml Vial) 100 mg IM Q28D [facility] Levetiracetam (Levetiracetam 500 Mg Tablet) 500 mg PO BID [facility] Last Admin: 10/18/23 08:18 Dose: 500 mg Magnesium Hydroxide (Milk Of Magnesia 30 Ml Oral.Susp) 30 ml PO DAILY PRN PRN Reason: Constipation Mirtazapine (Mirtazapine 15 Mg Tablet) 15 mg PO BEDTIME [facility] Last Admin: 10/17/23 20:03 Dose: 15 mg Nicotine Polacrilex (Nicotine Polacrilex 2 Mg Gum) 4 mg BUCCAL Q2H PRN PRN Reason: Nicotine Cravings Olanzapine (Olanzapine 5 Mg Tablet) 5 mg PO BID@0800,1500 [facility] Last Admin: 10/18/23 08:18 Dose: 5 mg Olanzapine (Olanzapine 10 Mg Vial) 10 mg IM BEDTIME PRN PRN Reason: if refuses bedtime PO zyprexa Olanzapine (Olanzapine 10 Mg Vial) 5 mg IM BID@0800,1500 PRN PRN Reason: if refuses 0800/1500 PO zyprexa Last Admin: 10/13/23 14:58 Dose: 5 mg Olanzapine (Olanzapine 10 Mg Tablet) 20 mg PO BEDTIME [facility] Polyethylene Glycol (Polyethylene Glycol 3350 17 Gm Powd.Pack) 17 gm PO DAILY PRN PRN Reason: Constipation Rilpivirine (Rilpivirine Hcl 25 Mg Tablet) 25 mg PO DAILY [facility] Last Admin: 10/18/23 08:18 Dose: 25 mg Thiamine HCl (Thiamine Hcl 100 Mg Tablet) 100 mg PO DAILY [facility] Last Admin: 10/18/23 08:18 Dose: 100 mg Trazodone HCl (Trazodone Hcl 50 Mg Tablet) 50 mg PO BEDTIME MRX1 PRN PRN Reason: Insomnia Last Admin: 10/10/23 20:45 Dose: 50 mg Allergies Allergies Allergy/AdvReac Type Severity Reaction Status Date / Time No Known Allergies Allergy Unverified 01/28/20 16:07 [No Known Allergies*] Assessment & Plan Assessment & Plan (1) Schizoaffective disorder, bipolar type: Status: Acute Code(s): F25.0 - Schizoaffective disorder, bipolar type (2) Dementia: Status: Acute Code(s): F03.90 - Unspecified dementia, unspecified severity, without behavioral disturbance, psychotic disturbance, mood disturbance, and anxiety (3) Noncompliance: Status: Acute Code(s): Z91.199 - Patient's noncompliance with other medical treatment and regimen due to unspecified reason Plan The patient is an elderly male with a past history of schizoaffective disorder, dementia, HIV and other medical problems, chronically mentally ill resident of assisted living facility referred to this facility after he became non compliant with medications with daniella and psychosis. The patient was assessed by crisis and transferring to this facility for psychiatric stabilization. At the moment of the interview the patient was able to contract for safety. Plan 1. Gather collateral information. 2. Continue with regular medications, we are not going to change his Depakote, olanzapine and Haldol Decanoate. 3. Reassessment with results. 4. 15 minutes checks since the patient is able to contract for safety. 5. Change Zyprexa to Zydis to avoid cheeking on October 02. 6. IM zyprexa ordered 10 mg t.i.d. p.r.n. refusal of p.o. as per court order. Total dose up to 30 mg a day. 7. Zyprexa increased up to 15 mg p.o. q.h.s. to target daniella and psychosis. Started on October 15. Zyprexa was increased up to 20 mg p.o. q.h.s. on October 17. Reason for continued inpatient stay Substantial Risk for: inability to function, rapid decompensation and med/psych decompensation Time Spent With Patient Time: Total time managing care of this patient today __20__ minutes.
[2023-10-18 20:00] VITALS: BP 132/80; PULSE 100; RESP 18; TEMP 36.4; O2SAT 95
[2023-10-18] MEDS: OLANZapine 10 MG TABLET 20 MG PO (22:37)
[2023-10-18] MEDS: Mirtazapine 15 MG TABLET PO (22:41)
--- NOTE | 2023-10-19 00:15 | PC.NURSE ---
Called the pharmacy to verify the dose instruction written in the label comments of Olanzapine 20 mg at HS which stated maximum dose of 20 mg for 24 hours. Pt. received already of a total of 10 mg in the morning and afternoon. Pharmacist called the [employer] liaison [employer] provider and stated that it's ok to give the HS dose per MD.
[2023-10-19 08:00] VITALS: PULSE 95; RESP 16; TEMP 36.1; O2SAT 95
[2023-10-19] MEDS: Thiamine HCL 100 MG TABLET PO (08:30)
[2023-10-19] MEDS: HaloperidoL 5 MG TABLET PO ×2 (08:30→20:13)
[2023-10-19] MEDS: Emtricitabin/Tenofovir 200/300 TABLET 1 TAB PO (08:30)
[2023-10-19] MEDS: OLANZapine 5 MG TABLET PO ×2 (08:30→15:53)
[2023-10-19] MEDS: Divalproex Sodium Sprinkles 125 MG CAP.DR.SPR 250 MG PO ×3 (08:30→20:12)
[2023-10-19] MEDS: levETIRAcetam 500 MG TABLET PO ×2 (08:30→20:13)
[2023-10-19] MEDS: Rilpivirine HCL 25 MG TABLET PO (08:30)
--- NOTE | 2023-10-19 10:33 | P.PNPSI_ITS ---
Subjective Subjective Date of Service: 10/19/23 Reason For Visit: F32.9 Interim History: labile, irritable, disorganized. denies any issues, no requests. per staff, labile, taking meds, refusing BP checks so did not get amlodipine today. Mental Status Exam Mental Status Exam Patient Appearance: Inappropriate and Unkempt Patient Orientation: Person and Situation Level of Consciousness: Awake Patient Behavior: Talkative and Restless Mood Description: Withdrawn Affect Description: Labile Patient Cognition Impaired: Yes Ability to Follow Directions: Fair Speech Pattern: Clear Hallucinations: None Delusions: Paranoid Ideation, Grandiose and Ideas of Reference Thought Process: Racing and Illogical Thought Content: positive for Perseveration, positive for Poverty of Content and positive for Thought Blocking Judgement: Poor Diagnostics Vital Signs (24Hr): Vital Signs - 24 hr 10/18/23 20:00 10/19/23 08:00 Temperature 97.5 F 97 F Pulse Rate 100 95 Respiratory Rate 18 16 Blood Pressure 132/80 Pulse Oximetry 95 95 Oxygen Delivery Method Room Air Room Air BMI result Body Mass Index 17.1 Medications Medications Current Medications Acetaminophen (Acetaminophen 325 Mg Tablet) 650 mg PO Q6H PRN PRN Reason: Headache/Pain Mild Scale (1-3) Last Admin: 10/06/23 01:21 Dose: 650 mg Acetaminophen (Acetaminophen 325 Mg Tablet) 650 mg PO Q6H PRN PRN Reason: Pain (Scale Score 1-3) Al Hydroxide/Mg Hydroxide (Magnesium Hydrox/Alum Hydrox 30 Ml Oral.Susp) 30 ml PO Q6H PRN PRN Reason: Heartburn/Nausea Albuterol Sulfate (Albuterol Sulfate 90 Mcg 8 Gm Inhaler) 2 puff INHALE RQ4H PRN PRN Reason: Wheezing Amlodipine Besylate (Amlodipine Besylate 5 Mg Tablet) 5 mg PO DAILY [facility] [place]; P rotocol Last Admin: 10/19/23 08:30 Dose: Not Given Divalproex Sodium (Divalproex Sodium Sprinkles 125 Mg ) 250 mg PO TID [facility] Last Admin: 10/19/23 08:30 Dose: 250 mg Emtricitabine/Tenofovir (Emtricitabin/Tenofovir 200/300 Tablet) 1 tab PO DAILY [facility] Last Admin: 10/19/23 08:30 Dose: 1 tab Haloperidol (Haloperidol 5 Mg Tablet) 5 mg PO BID [facility] [place] Last Admin: 10/19/23 08:30 Dose: 5 mg Haloperidol Decanoate (Haloperidol Decanoate 50 Mg/Ml Vial) 100 mg IM Q28D [facility] Levetiracetam (Levetiracetam 500 Mg Tablet) 500 mg PO BID [facility] Last Admin: 10/19/23 08:30 Dose: 500 mg Magnesium Hydroxide (Milk Of Magnesia 30 Ml Oral.Susp) 30 ml PO DAILY PRN PRN Reason: Constipation Mirtazapine (Mirtazapine 15 Mg Tablet) 15 mg PO BEDTIME [facility] Last Admin: 10/18/23 22:43 Dose: Not Given Nicotine Polacrilex (Nicotine Polacrilex 2 Mg Gum) 4 mg BUCCAL Q2H PRN PRN Reason: Nicotine Cravings Olanzapine (Olanzapine 5 Mg Tablet) 5 mg PO BID@0800,1500 [facility] [place] Last Admin: 10/19/23 08:30 Dose: 5 mg Olanzapine (Olanzapine 10 Mg Vial) 10 mg IM BEDTIME PRN PRN Reason: if refuses bedtime PO zyprexa Olanzapine (Olanzapine 10 Mg Vial) 5 mg IM BID@0800,1500 PRN PRN Reason: if refuses 0800/1500 PO zyprexa Last Admin: 10/13/23 14:58 Dose: 5 mg Olanzapine (Olanzapine 10 Mg Tablet) 20 mg PO BEDTIME [facility] Last Admin: 10/18/23 22:43 Dose: Not Given Polyethylene Glycol (Polyethylene Glycol 3350 17 Gm Powd.Pack) 17 gm PO DAILY PRN PRN Reason: Constipation Rilpivirine (Rilpivirine Hcl 25 Mg Tablet) 25 mg PO DAILY [facility] Last Admin: 10/19/23 08:30 Dose: 25 mg Thiamine HCl (Thiamine Hcl 100 Mg Tablet) 100 mg PO DAILY [facility] Last Admin: 10/19/23 08:30 Dose: 100 mg Trazodone HCl (Trazodone Hcl 50 Mg Tablet) 50 mg PO BEDTIME MRX1 PRN PRN Reason: Insomnia Last Admin: 10/10/23 20:45 Dose: 50 mg Allergies Allergies Allergy/AdvReac Type Severity Reaction Status Date / Time No Known Allergies Allergy Unverified 01/28/20 16:07 [No Known Allergies*] Assessment & Plan Assessment & Plan (1) Schizoaffective disorder, bipolar type: Status: Acute Code(s): F25.0 - Schizoaffective disorder, bipolar type (2) Dementia: Status: Acute Code(s): F03.90 - Unspecified dementia, unspecified severity, without behavioral disturbance, psychotic disturbance, mood disturbance, and anxiety (3) Noncompliance: Status: Acute Code(s): Z91.199 - Patient's noncompliance with other medical treatment and regimen due to unspecified reason Plan The patient is an elderly male with a past history of schizoaffective disorder, dementia, HIV and other medical problems, chronically mentally ill resident of assisted living facility referred to this facility after he became non compliant with medications with daniella and psychosis. The patient was assessed by crisis and transferring to this facility for psychiatric stabilization. At the moment of the interview the patient was able to contract for safety. Plan 1. Gather collateral information. 2. Continue with regular medications, we are not going to change his Depakote, olanzapine and Haldol Decanoate. 3. Reassessment with results. 4. 15 minutes checks since the patient is able to contract for safety. 5. Change Zyprexa to Zydis to avoid cheeking on October 02. 6. IM zyprexa ordered 10 mg t.i.d. p.r.n. refusal of p.o. as per court order. Total dose up to 30 mg a day. 7. Zyprexa increased up to 15 mg p.o. q.h.s. to target daniella and psychosis. Started on October 15. Zyprexa was increased up to 20 mg p.o. q.h.s. on October 17. Reason for continued inpatient stay Substantial Risk for: inability to function Time Spent With Patient Time: Total time managing care of this patient today ____ minutes.
[2023-10-19 20:00] VITALS: RESP 18; TEMP 36.3
[2023-10-19] MEDS: Mirtazapine 15 MG TABLET PO (20:13)
[2023-10-19] MEDS: OLANZapine 10 MG TABLET 20 MG PO (20:13)
[2023-10-20 08:00] VITALS: BP 162/67; PULSE 99; RESP 18; TEMP 36.5; O2SAT 97
[2023-10-20 08:21] VITALS: BP 162/67
[2023-10-20] MEDS: levETIRAcetam 500 MG TABLET PO ×2 (08:21→20:59)
[2023-10-20] MEDS: Emtricitabin/Tenofovir 200/300 TABLET 1 TAB PO (08:21)
[2023-10-20] MEDS: Divalproex Sodium Sprinkles 125 MG CAP.DR.SPR 250 MG PO ×3 (08:21→20:59)
[2023-10-20] MEDS: OLANZapine 5 MG TABLET PO ×2 (08:21→15:23)
[2023-10-20] MEDS: amLODIPine Besylate 5 MG TABLET PO (08:21)
[2023-10-20] MEDS: Rilpivirine HCL 25 MG TABLET PO (08:22)
[2023-10-20] MEDS: Thiamine HCL 100 MG TABLET PO (08:22)
[2023-10-20] MEDS: HaloperidoL 5 MG TABLET PO ×2 (08:22→20:59)
--- NOTE | 2023-10-20 11:40 | HO.PSYCHPN ---
Subjective Subjective Date of Service: 10/20/23 Reason For Visit: F32.9 Interim History: no change in presentation. disorganized, non-sensical. per staff, taking meds. allwed all VS today, BP 162/67, norvasc was given. Mental Status Exam Mental Status Exam Patient Appearance: Inappropriate and Unkempt Patient Orientation: Person and Situation Level of Consciousness: Awake Patient Behavior: Talkative and Restless Mood Description: Withdrawn Affect Description: Labile Patient Cognition Impaired: Yes Ability to Follow Directions: Fair Speech Pattern: Clear Hallucinations: None Delusions: Paranoid Ideation, Grandiose and Ideas of Reference Thought Process: Racing and Illogical Thought Content: positive for Perseveration, positive for Poverty of Content and positive for Thought Blocking Judgement: Poor Diagnostics Vital Signs (24Hr): Vital Signs - 24 hr 10/19/23 20:00 10/20/23 08:00 10/20/23 08:21 Temperature 97.3 F 97.7 F Pulse Rate 99 Respiratory Rate 18 18 Blood Pressure 162/67 H 162/67 H Pulse Oximetry 97 Oxygen Delivery Method Room Air BMI result Body Mass Index 17.1 Medications Medications Current Medications Acetaminophen (Acetaminophen 325 Mg Tablet) 650 mg PO Q6H PRN PRN Reason: Headache/Pain Mild Scale (1-3) Last Admin: 10/06/23 01:21 Dose: 650 mg Acetaminophen (Acetaminophen 325 Mg Tablet) 650 mg PO Q6H PRN PRN Reason: Pain (Scale Score 1-3) Al Hydroxide/Mg Hydroxide (Magnesium Hydrox/Alum Hydrox 30 Ml Oral.Susp) 30 ml PO Q6H PRN PRN Reason: Heartburn/Nausea Albuterol Sulfate (Albuterol Sulfate 90 Mcg 8 Gm Inhaler) 2 puff INHALE RQ4H PRN PRN Reason: Wheezing Amlodipine Besylate (Amlodipine Besylate 5 Mg Tablet) 5 mg PO DAILY [facility]; Protocol Last Admin: 10/20/23 08:21 Dose: 5 mg Divalproex Sodium (Divalproex Sodium Sprinkles 125 Mg ) 250 mg PO TID [facility] Last Admin: 10/20/23 08:21 Dose: 250 mg Emtricitabine/Tenofovir (Emtricitabin/Tenofovir 200/300 Tablet) 1 tab PO DAILY [facility] Last Admin: 10/20/23 08:21 Dose: 1 tab Haloperidol (Haloperidol 5 Mg Tablet) 5 mg PO BID [facility] Last Admin: 10/20/23 08:22 Dose: 5 mg Haloperidol Decanoate (Haloperidol Decanoate 50 Mg/Ml Vial) 100 mg IM Q28D [facility] Levetiracetam (Levetiracetam 500 Mg Tablet) 500 mg PO BID [facility] Last Admin: 10/20/23 08:21 Dose: 500 mg Magnesium Hydroxide (Milk Of Magnesia 30 Ml Oral.Susp) 30 ml PO DAILY PRN PRN Reason: Constipation Mirtazapine (Mirtazapine 15 Mg Tablet) 15 mg PO BEDTIME [facility] Last Admin: 10/19/23 20:13 Dose: 15 mg Nicotine Polacrilex (Nicotine Polacrilex 2 Mg Gum) 4 mg BUCCAL Q2H PRN PRN Reason: Nicotine Cravings Olanzapine (Olanzapine 5 Mg Tablet) 5 mg PO BID@0800,1500 [facility] Last Admin: 10/20/23 08:21 Dose: 5 mg Olanzapine (Olanzapine 10 Mg Vial) 10 mg IM BEDTIME PRN PRN Reason: if refuses bedtime PO zyprexa Olanzapine (Olanzapine 10 Mg Vial) 5 mg IM BID@0800,1500 PRN PRN Reason: if refuses 0800/1500 PO zyprexa Last Admin: 10/13/23 14:58 Dose: 5 mg Olanzapine (Olanzapine 10 Mg Tablet) 20 mg PO BEDTIME [facility] Last Admin: 10/19/23 20:13 Dose: 20 mg Polyethylene Glycol (Polyethylene Glycol 3350 17 Gm Powd.Pack) 17 gm PO DAILY PRN PRN Reason: Constipation Rilpivirine (Rilpivirine Hcl 25 Mg Tablet) 25 mg PO DAILY [facility] Last Admin: 10/20/23 08:22 Dose: 25 mg Thiamine HCl (Thiamine Hcl 100 Mg Tablet) 100 mg PO DAILY [facility] Last Admin: 10/20/23 08:22 Dose: 100 mg Trazodone HCl (Trazodone Hcl 50 Mg Tablet) 50 mg PO BEDTIME MRX1 PRN PRN Reason: Insomnia Last Admin: 10/10/23 20:45 Dose: 50 mg Allergies Allergies Allergy/AdvReac Type Severity Reaction Status Date / Time No Known Allergies Allergy Unverified 01/28/20 16:07 [No Known Allergies*] Assessment & Plan Assessment & Plan (1) Schizoaffective disorder, bipolar type: Status: Acute Code(s): F25.0 - Schizoaffective disorder, bipolar type (2) Dementia: Status: Acute Code(s): F03.90 - Unspecified dementia, unspecified severity, without behavioral disturbance, psychotic disturbance, mood disturbance, and anxiety (3) Noncompliance: Status: Acute Code(s): Z91.199 - Patient's noncompliance with other medical treatment and regimen due to unspecified reason Plan The patient is an elderly male with a past history of schizoaffective disorder, dementia, HIV and other medical problems, chronically mentally ill resident of assisted living facility referred to this facility after he became non compliant with medications with daniella and psychosis. The patient was assessed by crisis and transferring to this facility for psychiatric stabilization. At the moment of the interview the patient was able to contract for safety. Plan 1. Gather collateral information. 2. Continue with regular medications, we are not going to change his Depakote, olanzapine and Haldol Decanoate. 3. Reassessment with results. 4. 15 minutes checks since the patient is able to contract for safety. 5. Change Zyprexa to Zydis to avoid cheeking on October 02. 6. IM zyprexa ordered 10 mg t.i.d. p.r.n. refusal of p.o. as per court order. Total dose up to 30 mg a day. 7. Zyprexa increased up to 15 mg p.o. q.h.s. to target daniella and psychosis. Started on October 15. Zyprexa was increased up to 20 mg p.o. q.h.s. on October 17. Reason for continued inpatient stay Substantial Risk for: inability to function Time Spent With Patient Time: Total time managing care of this patient today ____ minutes.
[2023-10-20 20:00] VITALS: TEMP 36.8
[2023-10-20] MEDS: OLANZapine 10 MG TABLET 20 MG PO (20:59)
[2023-10-20] MEDS: Mirtazapine 15 MG TABLET PO (20:59)
[2023-10-20] MEDS: traZODone HCL 50 MG TABLET PO (21:01)
[2023-10-21] MEDS: OLANZapine 5 MG TABLET PO ×2 (09:09→14:29)
[2023-10-21] MEDS: Thiamine HCL 100 MG TABLET PO (09:09)
[2023-10-21] MEDS: Rilpivirine HCL 25 MG TABLET PO (09:09)
[2023-10-21] MEDS: Divalproex Sodium Sprinkles 125 MG CAP.DR.SPR 250 MG PO ×3 (09:09→20:52)
[2023-10-21] MEDS: levETIRAcetam 500 MG TABLET PO ×2 (09:09→20:52)
[2023-10-21] MEDS: Emtricitabin/Tenofovir 200/300 TABLET 1 TAB PO (09:09)
[2023-10-21] MEDS: HaloperidoL 5 MG TABLET PO ×2 (09:09→20:52)
--- NOTE | 2023-10-21 12:43 | HO.PSYCHPN ---
Subjective Subjective Date of Service: 10/21/23 Reason For Visit: F32.9 Subjective Notes: Pedraza Order and Conditional Voluntary Interim History: The nursing staff reported the patient had been labile affect intrusive at times but pleasant. He had been loud but redirectable. He slept 7 hours. The manager social media reported that [facility] he is working for placement. On interview the patient remains labile disorganized psychotic but easily redirectable. He sleeping much better since we increase Zyprexa at night. Mental Status Exam Mental Status Exam Patient Appearance: Appropriate and Unkempt Patient Orientation: Person and Situation Level of Consciousness: Awake and Appropriate Patient Behavior: Guarded and Passive Mood Description: Withdrawn Affect Description: Labile Patient Cognition Impaired: Yes Ability to Follow Directions: Good Speech Pattern: Clear Hallucinations: Auditory Delusions: Paranoid Ideation, Grandiose and Ideas of Reference Thought Process: Incoherent and Distracted Thought Content: positive for [place], positive for Circumstantial, positive for Perseveration and positive for Poverty of Content Judgement: Poor Diagnostics Vital Signs (24Hr): Vital Signs - 24 hr 10/20/23 20:00 Temperature 98.2 F BMI result Body Mass Index 17.1 Medications Medications Current Medications Acetaminophen (Acetaminophen 325 Mg Tablet) 650 mg PO Q6H PRN PRN Reason: Headache/Pain Mild Scale (1-3) Last Admin: 10/06/23 01:21 Dose: 650 mg Acetaminophen (Acetaminophen 325 Mg Tablet) 650 mg PO Q6H PRN PRN Reason: Pain (Scale Score 1-3) Al Hydroxide/Mg Hydroxide (Magnesium Hydrox/Alum Hydrox 30 Ml Oral.Susp) 30 ml PO Q6H PRN PRN Reason: Heartburn/Nausea Albuterol Sulfate (Albuterol Sulfate 90 Mcg 8 Gm Inhaler) 2 puff INHALE RQ4H PRN PRN Reason: Wheezing Amlodipine Besylate (Amlodipine Besylate 5 Mg Tablet) 5 mg PO DAILY [facility]; Protocol Last Admin: 10/21/23 09:09 Dose: Not Given Divalproex Sodium (Divalproex Sodium Sprinkles 125 Mg ) 250 mg PO TID [facility] Last Admin: 10/21/23 09:09 Dose: 250 mg Emtricitabine/Tenofovir (Emtricitabin/Tenofovir 200/300 Tablet) 1 tab PO DAILY [facility] Last Admin: 10/21/23 09:09 Dose: 1 tab Haloperidol (Haloperidol 5 Mg Tablet) 5 mg PO BID [facility] Last Admin: 10/21/23 09:09 Dose: 5 mg Haloperidol Decanoate (Haloperidol Decanoate 50 Mg/Ml Vial) 100 mg IM Q28D [facility] Levetiracetam (Levetiracetam 500 Mg Tablet) 500 mg PO BID [facility] Last Admin: 10/21/23 09:09 Dose: 500 mg Magnesium Hydroxide (Milk Of Magnesia 30 Ml Oral.Susp) 30 ml PO DAILY PRN PRN Reason: Constipation Mirtazapine (Mirtazapine 15 Mg Tablet) 15 mg PO BEDTIME [facility] Last Admin: 10/20/23 20:59 Dose: 15 mg Nicotine Polacrilex (Nicotine Polacrilex 2 Mg Gum) 4 mg BUCCAL Q2H PRN PRN Reason: Nicotine Cravings Olanzapine (Olanzapine 5 Mg Tablet) 5 mg PO BID@0800,1500 [facility] Last Admin: 10/21/23 09:09 Dose: 5 mg Olanzapine (Olanzapine 10 Mg Vial) 10 mg IM BEDTIME PRN PRN Reason: if refuses bedtime PO zyprexa Olanzapine (Olanzapine 10 Mg Vial) 5 mg IM BID@0800,1500 PRN PRN Reason: if refuses 0800/1500 PO zyprexa Last Admin: 10/13/23 14:58 Dose: 5 mg Olanzapine (Olanzapine 10 Mg Tablet) 20 mg PO BEDTIME [facility] Last Admin: 10/20/23 20:59 Dose: 20 mg Polyethylene Glycol (Polyethylene Glycol 3350 17 Gm Powd.Pack) 17 gm PO DAILY PRN PRN Reason: Constipation Rilpivirine (Rilpivirine Hcl 25 Mg Tablet) 25 mg PO DAILY [facility] Last Admin: 10/21/23 09:09 Dose: 25 mg Thiamine HCl (Thiamine Hcl 100 Mg Tablet) 100 mg PO DAILY [facility] Last Admin: 10/21/23 09:09 Dose: 100 mg Trazodone HCl (Trazodone Hcl 50 Mg Tablet) 50 mg PO BEDTIME MRX1 PRN PRN Reason: Insomnia Last Admin: 10/20/23 21:01 Dose: 50 mg Allergies Allergies Allergy/AdvReac Type Severity Reaction Status Date / Time No Known Allergies Allergy Unverified 01/28/20 16:07 [No Known Allergies*] Assessment & Plan Assessment & Plan (1) Schizoaffective disorder, bipolar type: Status: Acute Code(s): F25.0 - Schizoaffective disorder, bipolar type (2) Dementia: Status: Acute Code(s): F03.90 - Unspecified dementia, unspecified severity, without behavioral disturbance, psychotic disturbance, mood disturbance, and anxiety (3) Noncompliance: Status: Acute Code(s): Z91.199 - Patient's noncompliance with other medical treatment and regimen due to unspecified reason Plan The patient is an elderly male with a past history of schizoaffective disorder, dementia, HIV and other medical problems, chronically mentally ill resident of assisted living facility referred to this facility after he became non compliant with medications with daniella and psychosis. The patient was assessed by crisis and transferring to this facility for psychiatric stabilization. At the moment of the interview the patient was able to contract for safety. Plan 1. Gather collateral information. 2. Continue with regular medications, we are not going to change his Depakote, olanzapine and Haldol Decanoate. 3. Reassessment with results. 4. 15 minutes checks since the patient is able to contract for safety. 5. Change Zyprexa to Zydis to avoid cheeking on October 02. 6. IM zyprexa ordered 10 mg t.i.d. p.r.n. refusal of p.o. as per court order. Total dose up to 30 mg a day. 7. Zyprexa increased up to 15 mg p.o. q.h.s. to target daniella and psychosis. Started on October 15. Zyprexa was increased up to 20 mg p.o. q.h.s. on October 17. Reason for continued inpatient stay Substantial Risk for: inability to function, rapid decompensation and med/psych decompensation Time Spent With Patient Time: Total time managing care of this patient today __20__ minutes.
[2023-10-21] MEDS: OLANZapine 10 MG TABLET 20 MG PO (20:52)
[2023-10-21] MEDS: Mirtazapine 15 MG TABLET PO (20:52)
[2023-10-22 08:09] VITALS: BP 155/98; PULSE 119; TEMP 36.6
[2023-10-22 08:11] VITALS: BP 155/98
[2023-10-22] MEDS: OLANZapine 5 MG TABLET PO ×2 (08:11→15:40)
[2023-10-22] MEDS: amLODIPine Besylate 5 MG TABLET PO (08:11)
[2023-10-22] MEDS: levETIRAcetam 500 MG TABLET PO ×2 (08:11→20:17)
[2023-10-22] MEDS: HaloperidoL 5 MG TABLET PO ×2 (08:11→20:17)
[2023-10-22] MEDS: Emtricitabin/Tenofovir 200/300 TABLET 1 TAB PO (08:11)
[2023-10-22] MEDS: Thiamine HCL 100 MG TABLET PO (08:12)
[2023-10-22] MEDS: Rilpivirine HCL 25 MG TABLET PO (08:12)
[2023-10-22] MEDS: Divalproex Sodium Sprinkles 125 MG CAP.DR.SPR 250 MG PO ×3 (08:12→20:17)
--- NOTE | 2023-10-22 12:15 | HO.PSYCHPN ---
Subjective Subjective Date of Service: 10/22/23 Reason For Visit: F32.9 Subjective Notes: Pedraza Order and Conditional Voluntary Interim History: The nursing staff reported no changes in his mental status he remains intrusive loud but redirectable. He has sleeping a little better 5 hours last night since we increase Zyprexa to 20 mg p.o. q.h.s.. On interview the patient was intrusive talkative, illogical at times but less angry. Mental Status Exam Mental Status Exam Patient Appearance: Disheveled and Unkempt Patient Orientation: Person and Situation Level of Consciousness: Awake and Appropriate Patient Behavior: Guarded and Passive Mood Description: Cheerful Affect Description: Labile Patient Cognition Impaired: Yes Ability to Follow Directions: Fair Speech Pattern: Rapid and Loud Hallucinations: None Delusions: Paranoid Ideation, Grandiose and Ideas of Reference Thought Process: Incoherent and Illogical Thought Content: positive for Perseveration, positive for Poverty of Content and positive for Thought Blocking Judgement: Poor Diagnostics Vital Signs (24Hr): Vital Signs - 24 hr 10/22/23 08:09 10/22/23 08:11 Temperature 97.9 F Pulse Rate 119 H Blood Pressure 155/98 H 155/98 H BMI result Body Mass Index 17.1 Medications Medications Current Medications Acetaminophen (Acetaminophen 325 Mg Tablet) 650 mg PO Q6H PRN PRN Reason: Headache/Pain Mild Scale (1-3) Last Admin: 10/06/23 01:21 Dose: 650 mg Acetaminophen (Acetaminophen 325 Mg Tablet) 650 mg PO Q6H PRN PRN Reason: Pain (Scale Score 1-3) Al Hydroxide/Mg Hydroxide (Magnesium Hydrox/Alum Hydrox 30 Ml Oral.Susp) 30 ml PO Q6H PRN PRN Reason: Heartburn/Nausea Albuterol Sulfate (Albuterol Sulfate 90 Mcg 8 Gm Inhaler) 2 puff INHALE RQ4H PRN PRN Reason: Wheezing Amlodipine Besylate (Amlodipine Besylate 5 Mg Tablet) 5 mg PO DAILY [facility]; Protocol Last Admin: 10/22/23 08:11 Dose: 5 mg Divalproex Sodium (Divalproex Sodium Sprinkles 125 Mg ) 250 mg PO TID [facility] Last Admin: 10/22/23 08:12 Dose: 250 mg Emtricitabine/Tenofovir (Emtricitabin/Tenofovir 200/300 Tablet) 1 tab PO DAILY [facility] Last Admin: 10/22/23 08:11 Dose: 1 tab Haloperidol (Haloperidol 5 Mg Tablet) 5 mg PO BID [facility] Last Admin: 10/22/23 08:11 Dose: 5 mg Haloperidol Decanoate (Haloperidol Decanoate 50 Mg/Ml Vial) 100 mg IM Q28D [facility] Levetiracetam (Levetiracetam 500 Mg Tablet) 500 mg PO BID [facility] Last Admin: 10/22/23 08:11 Dose: 500 mg Magnesium Hydroxide (Milk Of Magnesia 30 Ml Oral.Susp) 30 ml PO DAILY PRN PRN Reason: Constipation Mirtazapine (Mirtazapine 15 Mg Tablet) 15 mg PO BEDTIME [facility] Last Admin: 10/21/23 20:52 Dose: 15 mg Nicotine Polacrilex (Nicotine Polacrilex 2 Mg Gum) 4 mg BUCCAL Q2H PRN PRN Reason: Nicotine Cravings Olanzapine (Olanzapine 5 Mg Tablet) 5 mg PO BID@0800,1500 [facility] Last Admin: 10/22/23 08:11 Dose: 5 mg Olanzapine (Olanzapine 10 Mg Vial) 10 mg IM BEDTIME PRN PRN Reason: if refuses bedtime PO zyprexa Olanzapine (Olanzapine 10 Mg Vial) 5 mg IM BID@0800,1500 PRN PRN Reason: if refuses 0800/1500 PO zyprexa Last Admin: 10/13/23 14:58 Dose: 5 mg Olanzapine (Olanzapine 10 Mg Tablet) 20 mg PO BEDTIME [facility] Last Admin: 10/21/23 20:52 Dose: 20 mg Polyethylene Glycol (Polyethylene Glycol 3350 17 Gm Powd.Pack) 17 gm PO DAILY PRN PRN Reason: Constipation Rilpivirine (Rilpivirine Hcl 25 Mg Tablet) 25 mg PO DAILY [facility] Last Admin: 10/22/23 08:12 Dose: 25 mg Thiamine HCl (Thiamine Hcl 100 Mg Tablet) 100 mg PO DAILY [facility] Last Admin: 10/22/23 08:12 Dose: 100 mg Trazodone HCl (Trazodone Hcl 50 Mg Tablet) 50 mg PO BEDTIME MRX1 PRN PRN Reason: Insomnia Last Admin: 10/20/23 21:01 Dose: 50 mg Allergies Allergies Allergy/AdvReac Type Severity Reaction Status Date / Time No Known Allergies Allergy Unverified 01/28/20 16:07 [No Known Allergies*] Assessment & Plan Assessment & Plan (1) Schizoaffective disorder, bipolar type: Status: Acute Code(s): F25.0 - Schizoaffective disorder, bipolar type (2) Dementia: Status: Acute Code(s): F03.90 - Unspecified dementia, unspecified severity, without behavioral disturbance, psychotic disturbance, mood disturbance, and anxiety (3) Noncompliance: Status: Acute Code(s): Z91.199 - Patient's noncompliance with other medical treatment and regimen due to unspecified reason Plan The patient is an elderly male with a past history of schizoaffective disorder, dementia, HIV and other medical problems, chronically mentally ill resident of assisted living facility referred to this facility after he became non compliant with medications with daniella and psychosis. The patient was assessed by crisis and transferring to this facility for psychiatric stabilization. At the moment of the interview the patient was able to contract for safety. Plan 1. Gather collateral information. 2. Continue with regular medications, we are not going to change his Depakote, olanzapine and Haldol Decanoate. 3. Reassessment with results. 4. 15 minutes checks since the patient is able to contract for safety. 5. Change Zyprexa to Zydis to avoid cheeking on October 02. 6. IM zyprexa ordered 10 mg t.i.d. p.r.n. refusal of p.o. as per court order. Total dose up to 30 mg a day. 7. Zyprexa increased up to 15 mg p.o. q.h.s. to target daniella and psychosis. Started on October 15. Zyprexa was increased up to 20 mg p.o. q.h.s. on October 17. Reason for continued inpatient stay Substantial Risk for: inability to function, rapid decompensation and med/psych decompensation Time Spent With Patient Time: Total time managing care of this patient today __20__ minutes.
[2023-10-22 20:00] VITALS: BP 124/76; PULSE 102; RESP 18; TEMP 36.6; O2SAT 96
[2023-10-22] MEDS: traZODone HCL 50 MG TABLET PO (20:17)
[2023-10-22] MEDS: Mirtazapine 15 MG TABLET PO (20:17)
[2023-10-22] MEDS: OLANZapine 10 MG TABLET 20 MG PO (20:17)
[2023-10-23 08:16] VITALS: BP 126/89; PULSE 88; RESP 22; TEMP 36.6; O2SAT 96
[2023-10-23 08:24] VITALS: BP 126/89
[2023-10-23] MEDS: HaloperidoL 5 MG TABLET PO ×3 (08:24→20:38)
[2023-10-23] MEDS: Emtricitabin/Tenofovir 200/300 TABLET 1 TAB PO (08:24)
[2023-10-23] MEDS: OLANZapine 5 MG TABLET PO ×2 (08:24→15:15)
[2023-10-23] MEDS: Divalproex Sodium Sprinkles 125 MG CAP.DR.SPR 250 MG PO ×3 (08:24→20:38)
[2023-10-23] MEDS: levETIRAcetam 500 MG TABLET PO ×2 (08:24→20:38)
[2023-10-23] MEDS: Rilpivirine HCL 25 MG TABLET PO (08:24)
[2023-10-23] MEDS: Thiamine HCL 100 MG TABLET PO (08:24)
[2023-10-23] MEDS: amLODIPine Besylate 5 MG TABLET PO (08:24)
--- NOTE | 2023-10-23 11:46 | MHC.CLN ---
F/U DIET=REGULAR. ENSURE TID TO INCREASE KCALS/NUTRITION. SUPPLEMENT PROVIDES 1050 KCALS, 60 G PROTEIN. INTAKE AT MEALS VARIABLE, WITH POOR PO MANY MEALS. WILL DRINK AND ACCEPTS ENSURE SUPPLEMENT. NO SIGNIFICANT WEIGHT CHANGE SINCE ADMISSION. PROVIDE ADDITIONAL SNACKS/SUPPLEMENTS FROM UNIT [employer]ITCH[employer] DESIRED. FOLLOW FOR INTAKE OF MEALS AND SUPPLEMENT. RD TO FOLLOW UP WEEKLY.
--- NOTE | 2023-10-23 14:50 | HO.PSYCHPN ---
Subjective Subjective Date of Service: 10/23/23 Reason For Visit: F32.9 Subjective Notes: Pedraza Order and Conditional Voluntary Interim History: The nursing staff reported the patient remains nonsensical, hyperverbal. He takes his medications as court order. Today he remains psychotic and disorganized we are increasing Haldol up to 5 mg p.o. t.i.d. as per court order. Mental Status Exam Mental Status Exam Patient Appearance: Appropriate Patient Orientation: Person and Situation Level of Consciousness: Awake Patient Behavior: Guarded Mood Description: Labile Affect Description: Labile Patient Cognition Impaired: Yes Ability to Follow Directions: Fair Speech Pattern: Clear, Rapid and Loud Hallucinations: None Delusions: Grandiose Thought Process: Incoherent, Illogical and Slowed Thinking Thought Content: positive for [place] and positive for Poverty of Content Judgement: Poor Diagnostics Vital Signs (24Hr): Vital Signs - 24 hr 10/22/23 20:00 10/23/23 08:16 10/23/23 08:24 Temperature 97.8 F 97.9 F Pulse Rate 102 H 88 Respiratory Rate 18 22 H Blood Pressure 124/76 126/89 126/89 Pulse Oximetry 96 96 Oxygen Delivery Method Room Air Room Air BMI result Body Mass Index 17.1 Medications Medications Current Medications Acetaminophen (Acetaminophen 325 Mg Tablet) 650 mg PO Q6H PRN PRN Reason: Headache/Pain Mild Scale (1-3) Last Admin: 10/06/23 01:21 Dose: 650 mg Acetaminophen (Acetaminophen 325 Mg Tablet) 650 mg PO Q6H PRN PRN Reason: Pain (Scale Score 1-3) Al Hydroxide/Mg Hydroxide (Magnesium Hydrox/Alum Hydrox 30 Ml Oral.Susp) 30 ml PO Q6H PRN PRN Reason: Heartburn/Nausea Albuterol Sulfate (Albuterol Sulfate 90 Mcg 8 Gm Inhaler) 2 puff INHALE RQ4H PRN PRN Reason: Wheezing Amlodipine Besylate (Amlodipine Besylate 5 Mg Tablet) 5 mg PO DAILY [facility]; Protocol Last Admin: 10/23/23 08:24 Dose: 5 mg Divalproex Sodium (Divalproex Sodium Sprinkles 125 Mg ) 250 mg PO TID [facility] Last Admin: 10/23/23 08:24 Dose: 250 mg Emtricitabine/Tenofovir (Emtricitabin/Tenofovir 200/300 Tablet) 1 tab PO DAILY [facility] Last Admin: 10/23/23 08:24 Dose: 1 tab Haloperidol (Haloperidol 5 Mg Tablet) 5 mg PO TID [facility] Last Admin: 10/23/23 09:40 Dose: Not Given Haloperidol Decanoate (Haloperidol Decanoate 50 Mg/Ml Vial) 100 mg IM Q28D [facility] Levetiracetam (Levetiracetam 500 Mg Tablet) 500 mg PO BID [facility] Last Admin: 10/23/23 08:24 Dose: 500 mg Magnesium Hydroxide (Milk Of Magnesia 30 Ml Oral.Susp) 30 ml PO DAILY PRN PRN Reason: Constipation Mirtazapine (Mirtazapine 15 Mg Tablet) 15 mg PO BEDTIME [facility] Last Admin: 10/22/23 20:17 Dose: 15 mg Nicotine Polacrilex (Nicotine Polacrilex 2 Mg Gum) 4 mg BUCCAL Q2H PRN PRN Reason: Nicotine Cravings Olanzapine (Olanzapine 5 Mg Tablet) 5 mg PO BID@0800,1500 [facility] Last Admin: 10/23/23 08:24 Dose: 5 mg Olanzapine (Olanzapine 10 Mg Vial) 10 mg IM BEDTIME PRN PRN Reason: if refuses bedtime PO zyprexa Olanzapine (Olanzapine 10 Mg Vial) 5 mg IM BID@0800,1500 PRN PRN Reason: if refuses 0800/1500 PO zyprexa Last Admin: 10/13/23 14:58 Dose: 5 mg Olanzapine (Olanzapine 10 Mg Tablet) 20 mg PO BEDTIME [facility] Last Admin: 10/22/23 20:17 Dose: 20 mg Polyethylene Glycol (Polyethylene Glycol 3350 17 Gm Powd.Pack) 17 gm PO DAILY PRN PRN Reason: Constipation Rilpivirine (Rilpivirine Hcl 25 Mg Tablet) 25 mg PO DAILY [facility] Last Admin: 10/23/23 08:24 Dose: 25 mg Thiamine HCl (Thiamine Hcl 100 Mg Tablet) 100 mg PO DAILY [facility] Last Admin: 10/23/23 08:24 Dose: 100 mg Trazodone HCl (Trazodone Hcl 50 Mg Tablet) 50 mg PO BEDTIME MRX1 PRN PRN Reason: Insomnia Last Admin: 10/22/23 20:17 Dose: 50 mg Allergies Allergies Allergy/AdvReac Type Severity Reaction Status Date / Time No Known Allergies Allergy Unverified 01/28/20 16:07 [No Known Allergies*] Assessment & Plan Assessment & Plan (1) Schizoaffective disorder, bipolar type: Status: Acute Code(s): F25.0 - Schizoaffective disorder, bipolar type (2) Dementia: Status: Acute Code(s): F03.90 - Unspecified dementia, unspecified severity, without behavioral disturbance, psychotic disturbance, mood disturbance, and anxiety (3) Noncompliance: Status: Acute Code(s): Z91.199 - Patient's noncompliance with other medical treatment and regimen due to unspecified reason Plan The patient is an elderly male with a past history of schizoaffective disorder, dementia, HIV and other medical problems, chronically mentally ill resident of assisted living facility referred to this facility after he became non compliant with medications with daniella and psychosis. The patient was assessed by crisis and transferring to this facility for psychiatric stabilization. At the moment of the interview the patient was able to contract for safety. Plan 1. Gather collateral information. 2. Continue with regular medications, we are not going to change his Depakote, olanzapine and Haldol Decanoate. 3. Reassessment with results. 4. 15 minutes checks since the patient is able to contract for safety. 5. Change Zyprexa to Zydis to avoid cheeking on October 02. 6. IM zyprexa ordered 10 mg t.i.d. p.r.n. refusal of p.o. as per court order. Total dose up to 30 mg a day. 7. Zyprexa increased up to 15 mg p.o. q.h.s. to target daniella and psychosis. Started on October 15. Zyprexa was increased up to 20 mg p.o. q.h.s. on October 17. 8. Increase Haldol up to 5 mg p.o. t.i.d. on October 22 and keep Haldol Decanoate as per court order. Reason for continued inpatient stay Substantial Risk for: inability to function, rapid decompensation and med/psych decompensation Time Spent With Patient Time: Total time managing care of this patient today __20__ minutes.
[2023-10-23 20:00] VITALS: RESP 18
[2023-10-23] MEDS: traZODone HCL 50 MG TABLET PO (20:38)
[2023-10-23] MEDS: OLANZapine 10 MG TABLET 20 MG PO (20:38)
[2023-10-23] MEDS: Mirtazapine 15 MG TABLET PO (20:38)
[2023-10-24 07:00] VITALS: BMI 17.6
[2023-10-24 08:00] VITALS: PULSE 86; RESP 18; TEMP 36.6; O2SAT 97
[2023-10-24] MEDS: Thiamine HCL 100 MG TABLET PO (09:03)
[2023-10-24] MEDS: HaloperidoL 5 MG TABLET PO ×3 (09:04→20:59)
[2023-10-24] MEDS: levETIRAcetam 500 MG TABLET PO ×2 (09:04→20:59)
[2023-10-24] MEDS: Emtricitabin/Tenofovir 200/300 TABLET 1 TAB PO (09:04)
[2023-10-24] MEDS: Divalproex Sodium Sprinkles 125 MG CAP.DR.SPR 250 MG PO ×3 (09:04→21:00)
[2023-10-24] MEDS: Rilpivirine HCL 25 MG TABLET PO (09:04)
[2023-10-24] MEDS: OLANZapine 5 MG TABLET PO ×2 (09:04→16:26)
--- NOTE | 2023-10-24 11:55 | HO.PSYCHPN ---
Subjective Subjective Date of Service: 10/24/23 Reason For Visit: F32.9 Subjective Notes: Conditional Voluntary Interim History: The nursing staff reported the patient remains nonsensical. He slept 6 hours. The high school social science teacher reported that he prison facility ready discharge him and now we are looking for placement. The guardian is going to go to court to get more [place] for placement. On interview the patient remains grossly disorganized tried compliant with treatment. Mental Status Exam Mental Status Exam Patient Appearance: Unkempt Patient Orientation: Person and Situation Level of Consciousness: Awake and Appropriate Patient Behavior: Guarded and Passive Mood Description: Withdrawn Affect Description: Labile Patient Cognition Impaired: Yes Ability to Follow Directions: Fair Speech Pattern: Rapid and Loud Hallucinations: None Delusions: Paranoid Ideation, Grandiose and Ideas of Reference Thought Process: Incoherent and Illogical Thought Content: positive for [place] and positive for Poverty of Content Judgement: Poor Diagnostics Vital Signs (24Hr): Vital Signs - 24 hr 10/23/23 20:00 10/24/23 08:00 Temperature 97.9 F Pulse Rate 86 Respiratory Rate 18 18 Pulse Oximetry 97 Oxygen Delivery Method Room Air BMI result Body Mass Index 17.6 Medications Medications Current Medications Acetaminophen (Acetaminophen 325 Mg Tablet) 650 mg PO Q6H PRN PRN Reason: Headache/Pain Mild Scale (1-3) Last Admin: 10/06/23 01:21 Dose: 650 mg Acetaminophen (Acetaminophen 325 Mg Tablet) 650 mg PO Q6H PRN PRN Reason: Pain (Scale Score 1-3) Al Hydroxide/Mg Hydroxide (Magnesium Hydrox/Alum Hydrox 30 Ml Oral.Susp) 30 ml PO Q6H PRN PRN Reason: Heartburn/Nausea Albuterol Sulfate (Albuterol Sulfate 90 Mcg 8 Gm Inhaler) 2 puff INHALE RQ4H PRN PRN Reason: Wheezing Amlodipine Besylate (Amlodipine Besylate 5 Mg Tablet) 5 mg PO DAILY [facility]; Protocol Last Admin: 10/24/23 09:14 Dose: Not Given Divalproex Sodium (Divalproex Sodium Sprinkles 125 Mg ) 250 mg PO TID [facility] Last Admin: 10/24/23 09:04 Dose: 250 mg Emtricitabine/Tenofovir (Emtricitabin/Tenofovir 200/300 Tablet) 1 tab PO DAILY [facility] Last Admin: 10/24/23 09:04 Dose: 1 tab Haloperidol (Haloperidol 5 Mg Tablet) 5 mg PO TID [facility] Last Admin: 10/24/23 09:04 Dose: 5 mg Haloperidol Decanoate (Haloperidol Decanoate 50 Mg/Ml Vial) 100 mg IM Q28D [facility] Levetiracetam (Levetiracetam 500 Mg Tablet) 500 mg PO BID [facility] Last Admin: 10/24/23 09:04 Dose: 500 mg Magnesium Hydroxide (Milk Of Magnesia 30 Ml Oral.Susp) 30 ml PO DAILY PRN PRN Reason: Constipation Mirtazapine (Mirtazapine 15 Mg Tablet) 15 mg PO BEDTIME [facility] Last Admin: 10/23/23 20:38 Dose: 15 mg Nicotine Polacrilex (Nicotine Polacrilex 2 Mg Gum) 4 mg BUCCAL Q2H PRN PRN Reason: Nicotine Cravings Olanzapine (Olanzapine 5 Mg Tablet) 5 mg PO BID@0800,1500 [facility] Last Admin: 10/24/23 09:04 Dose: 5 mg Olanzapine (Olanzapine 10 Mg Vial) 10 mg IM BEDTIME PRN PRN Reason: if refuses bedtime PO zyprexa Olanzapine (Olanzapine 10 Mg Vial) 5 mg IM BID@0800,1500 PRN PRN Reason: if refuses 0800/1500 PO zyprexa Last Admin: 10/13/23 14:58 Dose: 5 mg Olanzapine (Olanzapine 10 Mg Tablet) 20 mg PO BEDTIME [facility] Last Admin: 10/23/23 20:38 Dose: 20 mg Polyethylene Glycol (Polyethylene Glycol 3350 17 Gm Powd.Pack) 17 gm PO DAILY PRN PRN Reason: Constipation Rilpivirine (Rilpivirine Hcl 25 Mg Tablet) 25 mg PO DAILY [facility] Last Admin: 10/24/23 09:04 Dose: 25 mg Thiamine HCl (Thiamine Hcl 100 Mg Tablet) 100 mg PO DAILY [facility] Last Admin: 10/24/23 09:03 Dose: 100 mg Trazodone HCl (Trazodone Hcl 50 Mg Tablet) 50 mg PO BEDTIME MRX1 PRN PRN Reason: Insomnia Last Admin: 10/23/23 20:38 Dose: 50 mg Allergies Allergies Allergy/AdvReac Type Severity Reaction Status Date / Time No Known Allergies Allergy Unverified 01/28/20 16:07 [No Known Allergies*] Assessment & Plan Assessment & Plan (1) Schizoaffective disorder, bipolar type: Status: Acute Code(s): F25.0 - Schizoaffective disorder, bipolar type (2) Dementia: Status: Acute Code(s): F03.90 - Unspecified dementia, unspecified severity, without behavioral disturbance, psychotic disturbance, mood disturbance, and anxiety (3) Noncompliance: Status: Acute Code(s): Z91.199 - Patient's noncompliance with other medical treatment and regimen due to unspecified reason Plan The patient is an elderly male with a past history of schizoaffective disorder, dementia, HIV and other medical problems, chronically mentally ill resident of assisted living facility referred to this facility after he became non compliant with medications with daniella and psychosis. The patient was assessed by crisis and transferring to this facility for psychiatric stabilization. At the moment of the interview the patient was able to contract for safety. Plan 1. Gather collateral information. 2. Continue with regular medications, we are not going to change his Depakote, olanzapine and Haldol Decanoate. 3. Reassessment with results. 4. 15 minutes checks since the patient is able to contract for safety. 5. Change Zyprexa to Zydis to avoid cheeking on October 02. 6. IM zyprexa ordered 10 mg t.i.d. p.r.n. refusal of p.o. as per court order. Total dose up to 30 mg a day. 7. Zyprexa increased up to 15 mg p.o. q.h.s. to target daniella and psychosis. Started on October 15. Zyprexa was increased up to 20 mg p.o. q.h.s. on October 17. 8. Increase Haldol up to 5 mg p.o. t.i.d. on October 22 and keep Haldol Decanoate as per court order. Reason for continued inpatient stay Substantial Risk for: inability to function, rapid decompensation and med/psych decompensation Time Spent With Patient Time: Total time managing care of this patient today __20__ minutes.
[2023-10-24 20:00] VITALS: BP 108/61; PULSE 92; RESP 18; TEMP 36; O2SAT 96
[2023-10-24] MEDS: OLANZapine 10 MG TABLET 20 MG PO (20:59)
[2023-10-24] MEDS: Mirtazapine 15 MG TABLET PO (21:00)
[2023-10-24] MEDS: traZODone HCL 50 MG TABLET PO (21:00)
[2023-10-25 08:00] VITALS: BP 130/78; PULSE 90; RESP 18; TEMP 36.7; O2SAT 98
[2023-10-25] MEDS: Divalproex Sodium Sprinkles 125 MG CAP.DR.SPR 250 MG PO ×3 (08:30→20:51)
[2023-10-25] MEDS: OLANZapine 5 MG TABLET PO ×2 (08:31→14:42)
[2023-10-25] MEDS: amLODIPine Besylate 5 MG TABLET PO (08:31)
[2023-10-25] MEDS: Emtricitabin/Tenofovir 200/300 TABLET 1 TAB PO (08:32)
[2023-10-25] MEDS: HaloperidoL 5 MG TABLET PO ×3 (08:32→20:51)
[2023-10-25] MEDS: levETIRAcetam 500 MG TABLET PO ×2 (08:32→20:51)
[2023-10-25] MEDS: Rilpivirine HCL 25 MG TABLET PO (08:32)
[2023-10-25] MEDS: Thiamine HCL 100 MG TABLET PO (08:32)
--- NOTE | 2023-10-25 13:54 | P.PNPSI_ITS ---
Subjective Subjective Date of Service: 10/25/23 Reason For Visit: F32.9 Subjective Notes: Pedraza Order and Conditional Voluntary Interim History: The nursing staff reported the patient remains nonsensical but he slept much better 7 hours. The social media designer reported that his guardian is going to filed for more power regarding placement. We are going to filed a medical certificate. On interview the patient remains as usual disorganized and grandiose but less angry. Mental Status Exam Mental Status Exam Patient Appearance: Unkempt Patient Orientation: Person and Situation Level of Consciousness: Awake Patient Behavior: Guarded and Passive Mood Description: Withdrawn Affect Description: Labile Patient Cognition Impaired: Yes Ability to Follow Directions: Fair Speech Pattern: Clear Hallucinations: Auditory Delusions: Paranoid Ideation and Grandiose Thought Process: Distracted and Slowed Thinking Thought Content: positive for Disoriented, positive for Poverty of Content, positive for Loose Associations and positive for Thought Blocking Judgement: Poor Diagnostics Vital Signs (24Hr): Vital Signs - 24 hr 10/24/23 20:00 10/25/23 08:00 Temperature 96.8 F 98.0 F Pulse Rate 92 90 Respiratory Rate 18 18 Blood Pressure 108/61 130/78 Pulse Oximetry 96 98 Oxygen Delivery Method Room Air Room Air BMI result Body Mass Index 17.6 Medications Medications Current Medications Acetaminophen (Acetaminophen 325 Mg Tablet) 650 mg PO Q6H PRN PRN Reason: Headache/Pain Mild Scale (1-3) Last Admin: 10/06/23 01:21 Dose: 650 mg Acetaminophen (Acetaminophen 325 Mg Tablet) 650 mg PO Q6H PRN PRN Reason: Pain (Scale Score 1-3) Al Hydroxide/Mg Hydroxide (Magnesium Hydrox/Alum Hydrox 30 Ml Oral.Susp) 30 ml PO Q6H PRN PRN Reason: Heartburn/Nausea Albuterol Sulfate (Albuterol Sulfate 90 Mcg 8 Gm Inhaler) 2 puff INHALE RQ4H PRN PRN Reason: Wheezing Amlodipine Besylate (Amlodipine Besylate 5 Mg Tablet) 5 mg PO DAILY [facility]; Protocol Last Admin: 10/25/23 08:31 Dose: 5 mg Divalproex Sodium (Divalproex Sodium Sprinkles 125 Mg ) 250 mg PO TID [facility] Last Admin: 10/25/23 08:30 Dose: 250 mg Emtricitabine/Tenofovir (Emtricitabin/Tenofovir 200/300 Tablet) 1 tab PO DAILY [facility] Last Admin: 10/25/23 08:32 Dose: 1 tab Haloperidol (Haloperidol 5 Mg Tablet) 5 mg PO TID [facility] Last Admin: 10/25/23 08:32 Dose: 5 mg Haloperidol Decanoate (Haloperidol Decanoate 50 Mg/Ml Vial) 100 mg IM Q28D [facility] Levetiracetam (Levetiracetam 500 Mg Tablet) 500 mg PO BID [facility] Last Admin: 10/25/23 08:32 Dose: 500 mg Magnesium Hydroxide (Milk Of Magnesia 30 Ml Oral.Susp) 30 ml PO DAILY PRN PRN Reason: Constipation Mirtazapine (Mirtazapine 15 Mg Tablet) 15 mg PO BEDTIME [facility] Last Admin: 10/24/23 21:00 Dose: 15 mg Nicotine Polacrilex (Nicotine Polacrilex 2 Mg Gum) 4 mg BUCCAL Q2H PRN PRN Reason: Nicotine Cravings Olanzapine (Olanzapine 5 Mg Tablet) 5 mg PO BID@0800,1500 [facility] Last Admin: 10/25/23 08:31 Dose: 5 mg Olanzapine (Olanzapine 10 Mg Vial) 10 mg IM BEDTIME PRN PRN Reason: if refuses bedtime PO zyprexa Olanzapine (Olanzapine 10 Mg Vial) 5 mg IM BID@0800,1500 PRN PRN Reason: if refuses 0800/1500 PO zyprexa Last Admin: 10/13/23 14:58 Dose: 5 mg Olanzapine (Olanzapine 10 Mg Tablet) 20 mg PO BEDTIME [facility] Last Admin: 10/24/23 20:59 Dose: 20 mg Polyethylene Glycol (Polyethylene Glycol 3350 17 Gm Powd.Pack) 17 gm PO DAILY PRN PRN Reason: Constipation Rilpivirine (Rilpivirine Hcl 25 Mg Tablet) 25 mg PO DAILY [facility] Last Admin: 10/25/23 08:32 Dose: 25 mg Thiamine HCl (Thiamine Hcl 100 Mg Tablet) 100 mg PO DAILY [facility] Last Admin: 10/25/23 08:32 Dose: 100 mg Trazodone HCl (Trazodone Hcl 50 Mg Tablet) 50 mg PO BEDTIME MRX1 PRN PRN Reason: Insomnia Last Admin: 10/24/23 21:00 Dose: 50 mg Allergies Allergies Allergy/AdvReac Type Severity Reaction Status Date / Time No Known Allergies Allergy Unverified 01/28/20 16:07 [No Known Allergies*] Assessment & Plan Assessment & Plan (1) Schizoaffective disorder, bipolar type: Status: Acute Code(s): F25.0 - Schizoaffective disorder, bipolar type (2) Dementia: Status: Acute Code(s): F03.90 - Unspecified dementia, unspecified severity, without behavioral disturbance, psychotic disturbance, mood disturbance, and anxiety (3) Noncompliance: Status: Acute Code(s): Z91.199 - Patient's noncompliance with other medical treatment and regimen due to unspecified reason Plan The patient is an elderly male with a past history of schizoaffective disorder, dementia, HIV and other medical problems, chronically mentally ill resident of assisted living facility referred to this facility after he became non compliant with medications with daniella and psychosis. The patient was assessed by crisis and transferring to this facility for psychiatric stabilization. At the moment of the interview the patient was able to contract for safety. Plan 1. Gather collateral information. 2. Continue with regular medications, we are not going to change his Depakote, olanzapine and Haldol Decanoate. 3. Reassessment with results. 4. 15 minutes checks since the patient is able to contract for safety. 5. Change Zyprexa to Zydis to avoid cheeking on October 02. 6. IM zyprexa ordered 10 mg t.i.d. p.r.n. refusal of p.o. as per court order. Total dose up to 30 mg a day. 7. Zyprexa increased up to 15 mg p.o. q.h.s. to target daniella and psychosis. Started on October 15. Zyprexa was increased up to 20 mg p.o. q.h.s. on October 17. 8. Increase Haldol up to 5 mg p.o. t.i.d. on October 22 and keep Haldol Decanoate as per court order. Reason for continued inpatient stay Substantial Risk for: inability to function, rapid decompensation and med/psych decompensation Time Spent With Patient Time: Total time managing care of this patient today __20__ minutes.
[2023-10-25] MEDS: Mirtazapine 15 MG TABLET PO (20:51)
[2023-10-25] MEDS: traZODone HCL 50 MG TABLET PO (20:51)
[2023-10-25] MEDS: OLANZapine 10 MG TABLET 20 MG PO (20:51)
[2023-10-26 08:28] VITALS: PULSE 84; RESP 18; TEMP 36.9; O2SAT 98
[2023-10-26] MEDS: HaloperidoL 5 MG TABLET PO ×3 (09:37→20:53)
[2023-10-26] MEDS: Divalproex Sodium Sprinkles 125 MG CAP.DR.SPR 250 MG PO ×3 (09:37→20:52)
[2023-10-26] MEDS: Thiamine HCL 100 MG TABLET PO (09:37)
[2023-10-26] MEDS: OLANZapine 5 MG TABLET PO ×2 (09:37→14:47)
[2023-10-26] MEDS: Rilpivirine HCL 25 MG TABLET PO (09:37)
[2023-10-26] MEDS: Emtricitabin/Tenofovir 200/300 TABLET 1 TAB PO (09:37)
[2023-10-26] MEDS: levETIRAcetam 500 MG TABLET PO ×2 (09:37→20:53)
--- NOTE | 2023-10-26 11:54 | PC.NURSE ---
Aristeo declined to have his blood pressure taken subsequently [facility] was held. Dr. Arboleda notified.
--- NOTE | 2023-10-26 12:05 | HO.PSYCHPN ---
Subjective Subjective Date of Service: 10/26/23 Reason For Visit: F32.9 Subjective Notes: Section 7 and Section 8 Interim History: Patient was seen and discussed in rounds today. Records and plans were reviewed. He continues to be disorganized, paranoid, taking court-ordered medications. At times verbally aggressive. Some paranoid ideations reported. She did not allow his blood pressure to be taken and Norvasc was held until. No changes were made today Review of Systems Review of Systems Yes Unobtainable due to mental status Mental Status Exam Mental Status Exam Patient Appearance: Unkempt Patient Orientation: Person and Situation Level of Consciousness: Awake Patient Behavior: Guarded and Passive Mood Description: Withdrawn Affect Description: Labile Patient Cognition Impaired: Yes Ability to Follow Directions: Fair Speech Pattern: Clear Hallucinations: Auditory Delusions: Paranoid Ideation and Grandiose Thought Process: Distracted and Slowed Thinking Thought Content: positive for Disoriented, positive for Poverty of Content, positive for Loose Associations and positive for Thought Blocking Judgement: Poor Diagnostics Vital Signs (24Hr): Vital Signs - 24 hr 10/26/23 08:28 Temperature 98.4 F Pulse Rate 84 Respiratory Rate 18 Pulse Oximetry 98 Oxygen Delivery Method Room Air BMI result Body Mass Index 17.6 Medications Medications Current Medications Acetaminophen (Acetaminophen 325 Mg Tablet) 650 mg PO Q6H PRN PRN Reason: Headache/Pain Mild Scale (1-3) Last Admin: 10/06/23 01:21 Dose: 650 mg Acetaminophen (Acetaminophen 325 Mg Tablet) 650 mg PO Q6H PRN PRN Reason: Pain (Scale Score 1-3) Al Hydroxide/Mg Hydroxide (Magnesium Hydrox/Alum Hydrox 30 Ml Oral.Susp) 30 ml PO Q6H PRN PRN Reason: Heartburn/Nausea Albuterol Sulfate (Albuterol Sulfate 90 Mcg 8 Gm Inhaler) 2 puff INHALE RQ4H PRN PRN Reason: Wheezing Amlodipine Besylate (Amlodipine Besylate 5 Mg Tablet) 5 mg PO DAILY [facility]; Protocol Last Admin: 10/26/23 09:48 Dose: Not Given Divalproex Sodium (Divalproex Sodium Sprinkles 125 Mg ) 250 mg PO TID [facility] Last Admin: 10/26/23 09:37 Dose: 250 mg Emtricitabine/Tenofovir (Emtricitabin/Tenofovir 200/300 Tablet) 1 tab PO DAILY [facility] Last Admin: 10/26/23 09:37 Dose: 1 tab Haloperidol (Haloperidol 5 Mg Tablet) 5 mg PO TID [facility] Last Admin: 10/26/23 09:37 Dose: 5 mg Haloperidol Decanoate (Haloperidol Decanoate 50 Mg/Ml Vial) 100 mg IM Q28D [facility] Levetiracetam (Levetiracetam 500 Mg Tablet) 500 mg PO BID [facility] Last Admin: 10/26/23 09:37 Dose: 500 mg Magnesium Hydroxide (Milk Of Magnesia 30 Ml Oral.Susp) 30 ml PO DAILY PRN PRN Reason: Constipation Mirtazapine (Mirtazapine 15 Mg Tablet) 15 mg PO BEDTIME [facility] Last Admin: 10/25/23 20:51 Dose: 15 mg Nicotine Polacrilex (Nicotine Polacrilex 2 Mg Gum) 4 mg BUCCAL Q2H PRN PRN Reason: Nicotine Cravings Olanzapine (Olanzapine 5 Mg Tablet) 5 mg PO BID@0800,1500 [facility] Last Admin: 10/26/23 09:37 Dose: 5 mg Olanzapine (Olanzapine 10 Mg Vial) 10 mg IM BEDTIME PRN PRN Reason: if refuses bedtime PO zyprexa Olanzapine (Olanzapine 10 Mg Vial) 5 mg IM BID@0800,1500 PRN PRN Reason: if refuses 0800/1500 PO zyprexa Last Admin: 10/13/23 14:58 Dose: 5 mg Olanzapine (Olanzapine 10 Mg Tablet) 20 mg PO BEDTIME [facility] Last Admin: 10/25/23 20:51 Dose: 20 mg Polyethylene Glycol (Polyethylene Glycol 3350 17 Gm Powd.Pack) 17 gm PO DAILY PRN PRN Reason: Constipation Rilpivirine (Rilpivirine Hcl 25 Mg Tablet) 25 mg PO DAILY [facility] Last Admin: 10/26/23 09:37 Dose: 25 mg Thiamine HCl (Thiamine Hcl 100 Mg Tablet) 100 mg PO DAILY [facility] Last Admin: 10/26/23 09:37 Dose: 100 mg Trazodone HCl (Trazodone Hcl 50 Mg Tablet) 50 mg PO BEDTIME MRX1 PRN PRN Reason: Insomnia Last Admin: 10/25/23 20:51 Dose: 50 mg Allergies Allergies Allergy/AdvReac Type Severity Reaction Status Date / Time No Known Allergies Allergy Unverified 01/28/20 16:07 [No Known Allergies*] Assessment & Plan Assessment & Plan (1) Schizoaffective disorder, bipolar type: Status: Acute Code(s): F25.0 - Schizoaffective disorder, bipolar type (2) Dementia: Status: Acute Code(s): F03.90 - Unspecified dementia, unspecified severity, without behavioral disturbance, psychotic disturbance, mood disturbance, and anxiety (3) Noncompliance: Status: Acute Code(s): Z91.199 - Patient's noncompliance with other medical treatment and regimen due to unspecified reason Plan The patient is an elderly male with a past history of schizoaffective disorder, dementia, HIV and other medical problems, chronically mentally ill resident of assisted living facility referred to this facility after he became non compliant with medications with daniella and psychosis. The patient was assessed by crisis and transferring to this facility for psychiatric stabilization. At the moment of the interview the patient was able to contract for safety. Plan 1. Gather collateral information. 2. Continue with regular medications, we are not going to change his Depakote, olanzapine and Haldol Decanoate. 3. Reassessment with results. 4. 15 minutes checks since the patient is able to contract for safety. 5. Change Zyprexa to Zydis to avoid cheeking on October 02. 6. IM zyprexa ordered 10 mg t.i.d. p.r.n. refusal of p.o. as per court order. Total dose up to 30 mg a day. 7. Zyprexa increased up to 15 mg p.o. q.h.s. to target daniella and psychosis. Started on October 15. Zyprexa was increased up to 20 mg p.o. q.h.s. on October 17. 8. Increase Haldol up to 5 mg p.o. t.i.d. on October 22 and keep Haldol Decanoate as per court order. 10/25: Continue current regimen and plans Reason for continued inpatient stay Substantial Risk for: inability to function Time Spent With Patient Time: Total time managing care of this patient today ____ minutes.
[2023-10-26] MEDS: OLANZapine 10 MG TABLET 20 MG PO (20:52)
[2023-10-26] MEDS: Mirtazapine 15 MG TABLET PO (20:53)
[2023-10-26] MEDS: traZODone HCL 50 MG TABLET PO (20:53)
[2023-10-26 21:37] VITALS: BP 103/55; PULSE 81; RESP 18; TEMP 36.5; O2SAT 95
[2023-10-27 08:00] VITALS: BP 108/63; PULSE 84; RESP 18; TEMP 36; O2SAT 96
[2023-10-27 08:39] VITALS: BP 108/63
[2023-10-27] MEDS: amLODIPine Besylate 5 MG TABLET PO (08:39)
[2023-10-27] MEDS: OLANZapine 5 MG TABLET PO ×2 (08:39→14:40)
[2023-10-27] MEDS: Rilpivirine HCL 25 MG TABLET PO (08:40)
[2023-10-27] MEDS: Thiamine HCL 100 MG TABLET PO (08:40)
[2023-10-27] MEDS: Emtricitabin/Tenofovir 200/300 TABLET 1 TAB PO (08:40)
[2023-10-27] MEDS: HaloperidoL 5 MG TABLET PO ×4 (08:40→21:02)
[2023-10-27] MEDS: levETIRAcetam 500 MG TABLET PO ×2 (08:40→20:57)
[2023-10-27] MEDS: Divalproex Sodium Sprinkles 125 MG CAP.DR.SPR 250 MG PO ×3 (08:40→21:00)
--- NOTE | 2023-10-27 09:06 | HO.PSYCHPN ---
Subjective Subjective Date of Service: 10/27/23 Reason For Visit: F32.9 Subjective Notes: Section 7 and Section 8 Interim History: Patient was seen and discussed in rounds today. Records and plans were reviewed. He has been doing a little better and is pleasant, medication compliant. Eating and sleeping adequately. Getting closer to baseline. No complaints or side effects. No behavioral issues. No changes were made today Review of Systems Review of Systems Yes Unobtainable due to mental status Mental Status Exam Mental Status Exam Patient Appearance: Unkempt Patient Orientation: Person and Situation Level of Consciousness: Awake Patient Behavior: Guarded and Passive Mood Description: Withdrawn Affect Description: Labile Patient Cognition Impaired: Yes Ability to Follow Directions: Fair Speech Pattern: Clear Hallucinations: Auditory Delusions: Paranoid Ideation and Grandiose Thought Process: Distracted and Slowed Thinking Thought Content: positive for Disoriented, positive for Poverty of Content, positive for Loose Associations and positive for Thought Blocking Judgement: Poor Diagnostics Vital Signs (24Hr): Vital Signs - 24 hr 10/26/23 21:37 10/27/23 08:00 10/27/23 08:39 Temperature 97.7 F 96.8 F Pulse Rate 81 84 Respiratory Rate 18 18 Blood Pressure 103/55 L 108/63 108/63 Pulse Oximetry 95 96 Oxygen Delivery Method Room Air Room Air BMI result Body Mass Index 17.6 Medications Medications Current Medications Acetaminophen (Acetaminophen 325 Mg Tablet) 650 mg PO Q6H PRN PRN Reason: Headache/Pain Mild Scale (1-3) Last Admin: 10/06/23 01:21 Dose: 650 mg Acetaminophen (Acetaminophen 325 Mg Tablet) 650 mg PO Q6H PRN PRN Reason: Pain (Scale Score 1-3) Al Hydroxide/Mg Hydroxide (Magnesium Hydrox/Alum Hydrox 30 Ml Oral.Susp) 30 ml PO Q6H PRN PRN Reason: Heartburn/Nausea Albuterol Sulfate (Albuterol Sulfate 90 Mcg 8 Gm Inhaler) 2 puff INHALE RQ4H PRN PRN Reason: Wheezing Amlodipine Besylate (Amlodipine Besylate 5 Mg Tablet) 5 mg PO DAILY [facility]; Protocol Last Admin: 10/27/23 08:39 Dose: 5 mg Divalproex Sodium (Divalproex Sodium Sprinkles 125 Mg ) 250 mg PO TID [facility] Last Admin: 10/27/23 08:40 Dose: 250 mg Emtricitabine/Tenofovir (Emtricitabin/Tenofovir 200/300 Tablet) 1 tab PO DAILY [facility] Last Admin: 10/27/23 08:40 Dose: 1 tab Haloperidol (Haloperidol 5 Mg Tablet) 5 mg PO TID [facility] Last Admin: 10/27/23 08:40 Dose: 5 mg Haloperidol Decanoate (Haloperidol Decanoate 50 Mg/Ml Vial) 100 mg IM Q28D [facility] Levetiracetam (Levetiracetam 500 Mg Tablet) 500 mg PO BID [facility] Last Admin: 10/27/23 08:40 Dose: 500 mg Magnesium Hydroxide (Milk Of Magnesia 30 Ml Oral.Susp) 30 ml PO DAILY PRN PRN Reason: Constipation Mirtazapine (Mirtazapine 15 Mg Tablet) 15 mg PO BEDTIME [facility] Last Admin: 10/26/23 20:53 Dose: 15 mg Nicotine Polacrilex (Nicotine Polacrilex 2 Mg Gum) 4 mg BUCCAL Q2H PRN PRN Reason: Nicotine Cravings Olanzapine (Olanzapine 5 Mg Tablet) 5 mg PO BID@0800,1500 [facility] Last Admin: 10/27/23 08:39 Dose: 5 mg Olanzapine (Olanzapine 10 Mg Vial) 10 mg IM BEDTIME PRN PRN Reason: if refuses bedtime PO zyprexa Olanzapine (Olanzapine 10 Mg Vial) 5 mg IM BID@0800,1500 PRN PRN Reason: if refuses 0800/1500 PO zyprexa Last Admin: 10/13/23 14:58 Dose: 5 mg Olanzapine (Olanzapine 10 Mg Tablet) 20 mg PO BEDTIME [facility] Last Admin: 10/26/23 20:52 Dose: 20 mg Polyethylene Glycol (Polyethylene Glycol 3350 17 Gm Powd.Pack) 17 gm PO DAILY PRN PRN Reason: Constipation Rilpivirine (Rilpivirine Hcl 25 Mg Tablet) 25 mg PO DAILY [facility] Last Admin: 10/27/23 08:40 Dose: 25 mg Thiamine HCl (Thiamine Hcl 100 Mg Tablet) 100 mg PO DAILY [facility] Last Admin: 10/27/23 08:40 Dose: 100 mg Trazodone HCl (Trazodone Hcl 50 Mg Tablet) 50 mg PO BEDTIME MRX1 PRN PRN Reason: Insomnia Last Admin: 10/26/23 20:53 Dose: 50 mg Allergies Allergies Allergy/AdvReac Type Severity Reaction Status Date / Time No Known Allergies Allergy Unverified 01/28/20 16:07 [No Known Allergies*] Assessment & Plan Assessment & Plan (1) Schizoaffective disorder, bipolar type: Status: Acute Code(s): F25.0 - Schizoaffective disorder, bipolar type (2) Dementia: Status: Acute Code(s): F03.90 - Unspecified dementia, unspecified severity, without behavioral disturbance, psychotic disturbance, mood disturbance, and anxiety (3) Noncompliance: Status: Acute Code(s): Z91.199 - Patient's noncompliance with other medical treatment and regimen due to unspecified reason Plan The patient is an elderly male with a past history of schizoaffective disorder, dementia, HIV and other medical problems, chronically mentally ill resident of assisted living facility referred to this facility after he became non compliant with medications with daniella and psychosis. The patient was assessed by crisis and transferring to this facility for psychiatric stabilization. At the moment of the interview the patient was able to contract for safety. Plan 1. Gather collateral information. 2. Continue with regular medications, we are not going to change his Depakote, olanzapine and Haldol Decanoate. 3. Reassessment with results. 4. 15 minutes checks since the patient is able to contract for safety. 5. Change Zyprexa to Zydis to avoid cheeking on October 02. 6. IM zyprexa ordered 10 mg t.i.d. p.r.n. refusal of p.o. as per court order. Total dose up to 30 mg a day. 7. Zyprexa increased up to 15 mg p.o. q.h.s. to target daniella and psychosis. Started on October 15. Zyprexa was increased up to 20 mg p.o. q.h.s. on October 17. 8. Increase Haldol up to 5 mg p.o. t.i.d. on October 22 and keep Haldol Decanoate as per court order. 10/25: Continue current regimen and plans 10/26: Continue current plans and regimen. Reason for continued inpatient stay Substantial Risk for: inability to function Time Spent With Patient Time: Total time managing care of this patient today ____ minutes.
[2023-10-27 20:00] VITALS: BP 109/69; PULSE 90; RESP 16; TEMP 36.5; O2SAT 97
[2023-10-27] MEDS: OLANZapine 10 MG TABLET 20 MG PO (20:59)
[2023-10-27] MEDS: Mirtazapine 15 MG TABLET PO (21:00)
[2023-10-28 09:26] VITALS: BP 115/69; PULSE 93; RESP 16; TEMP 35.8; O2SAT 97
[2023-10-28 10:12] VITALS: BP 115/69
[2023-10-28] MEDS: levETIRAcetam 500 MG TABLET PO ×2 (10:12→20:19)
[2023-10-28] MEDS: Thiamine HCL 100 MG TABLET PO (10:12)
[2023-10-28] MEDS: Rilpivirine HCL 25 MG TABLET PO (10:12)
[2023-10-28] MEDS: amLODIPine Besylate 5 MG TABLET PO (10:12)
[2023-10-28] MEDS: Emtricitabin/Tenofovir 200/300 TABLET 1 TAB PO (10:12)
[2023-10-28] MEDS: Divalproex Sodium Sprinkles 125 MG CAP.DR.SPR 250 MG PO ×3 (10:13→20:19)
[2023-10-28] MEDS: OLANZapine 5 MG TABLET PO ×2 (10:16→16:37)
[2023-10-28] MEDS: HaloperidoL 5 MG TABLET PO ×3 (10:17→20:19)
--- NOTE | 2023-10-28 12:22 | P.PNPSI_ITS ---
Subjective Subjective Date of Service: 10/28/23 Reason For Visit: F32.9 Subjective Notes: Pedraza Order and Conditional Voluntary Interim History: The nursing staff reported the patient had been eating well, he has refused shower and other ADL less. His mood remains labile, he took p.o. meds and he slept 8 hours. Today we filed the medical certificate so the guardian can have rights to place him in a long term facility. On interview the patient remains labile but less irritable than before. Mental Status Exam Mental Status Exam Patient Appearance: Appropriate Patient Orientation: Person and Situation Level of Consciousness: Awake and Appropriate Patient Behavior: Talkative and Confused Mood Description: Calm Affect Description: Labile Patient Cognition Impaired: Yes Ability to Follow Directions: Good Speech Pattern: Rapid and Animated Hallucinations: None Delusions: Paranoid Ideation and Grandiose Thought Process: Distracted and Slowed Thinking Thought Content: positive for Elton and positive for Poverty of Content Judgement: Poor Diagnostics Vital Signs (24Hr): Vital Signs - 24 hr 10/27/23 20:00 10/28/23 09:26 10/28/23 10:12 Temperature 97.7 F 96.5 F L Pulse Rate 90 93 Respiratory Rate 16 16 Blood Pressure 109/69 115/69 115/69 Pulse Oximetry 97 97 Oxygen Delivery Method Room Air Room Air BMI result Body Mass Index 17.6 Medications Medications Current Medications Acetaminophen (Acetaminophen 325 Mg Tablet) 650 mg PO Q6H PRN PRN Reason: Headache/Pain Mild Scale (1-3) Last Admin: 10/06/23 01:21 Dose: 650 mg Acetaminophen (Acetaminophen 325 Mg Tablet) 650 mg PO Q6H PRN PRN Reason: Pain (Scale Score 1-3) Al Hydroxide/Mg Hydroxide (Magnesium Hydrox/Alum Hydrox 30 Ml Oral.Susp) 30 ml PO Q6H PRN PRN Reason: Heartburn/Nausea Albuterol Sulfate (Albuterol Sulfate 90 Mcg 8 Gm Inhaler) 2 puff INHALE RQ4H PRN PRN Reason: Wheezing Amlodipine Besylate (Amlodipine Besylate 5 Mg Tablet) 5 mg PO DAILY [facility]; Protocol Last Admin: 10/28/23 10:12 Dose: 5 mg Divalproex Sodium (Divalproex Sodium Sprinkles 125 Mg ) 250 mg PO TID [facility] Last Admin: 10/28/23 10:13 Dose: 250 mg Emtricitabine/Tenofovir (Emtricitabin/Tenofovir 200/300 Tablet) 1 tab PO DAILY [facility] Last Admin: 10/28/23 10:12 Dose: 1 tab Haloperidol (Haloperidol 5 Mg Tablet) 5 mg PO TID [facility] Last Admin: 10/28/23 10:17 Dose: 5 mg Haloperidol Decanoate (Haloperidol Decanoate 50 Mg/Ml Vial) 100 mg IM Q28D [facility] Levetiracetam (Levetiracetam 500 Mg Tablet) 500 mg PO BID [facility] Last Admin: 10/28/23 10:12 Dose: 500 mg Magnesium Hydroxide (Milk Of Magnesia 30 Ml Oral.Susp) 30 ml PO DAILY PRN PRN Reason: Constipation Mirtazapine (Mirtazapine 15 Mg Tablet) 15 mg PO BEDTIME [facility] Last Admin: 10/27/23 21:00 Dose: 15 mg Nicotine Polacrilex (Nicotine Polacrilex 2 Mg Gum) 4 mg BUCCAL Q2H PRN PRN Reason: Nicotine Cravings Olanzapine (Olanzapine 5 Mg Tablet) 5 mg PO BID@0800,1500 [facility] Last Admin: 10/28/23 10:16 Dose: 5 mg Olanzapine (Olanzapine 10 Mg Vial) 10 mg IM BEDTIME PRN PRN Reason: if refuses bedtime PO zyprexa Olanzapine (Olanzapine 10 Mg Vial) 5 mg IM BID@0800,1500 PRN PRN Reason: if refuses 0800/1500 PO zyprexa Last Admin: 10/13/23 14:58 Dose: 5 mg Olanzapine (Olanzapine 10 Mg Tablet) 20 mg PO BEDTIME [facility] Last Admin: 10/27/23 20:59 Dose: 20 mg Polyethylene Glycol (Polyethylene Glycol 3350 17 Gm Powd.Pack) 17 gm PO DAILY PRN PRN Reason: Constipation Rilpivirine (Rilpivirine Hcl 25 Mg Tablet) 25 mg PO DAILY [facility] Last Admin: 10/28/23 10:12 Dose: 25 mg Thiamine HCl (Thiamine Hcl 100 Mg Tablet) 100 mg PO DAILY [facility] Last Admin: 10/28/23 10:12 Dose: 100 mg Trazodone HCl (Trazodone Hcl 50 Mg Tablet) 50 mg PO BEDTIME MRX1 PRN PRN Reason: Insomnia Last Admin: 10/26/23 20:53 Dose: 50 mg Allergies Allergies Allergy/AdvReac Type Severity Reaction Status Date / Time No Known Allergies Allergy Unverified 01/28/20 16:07 [No Known Allergies*] Assessment & Plan Assessment & Plan (1) Schizoaffective disorder, bipolar type: Status: Acute Code(s): F25.0 - Schizoaffective disorder, bipolar type (2) Dementia: Status: Acute Code(s): F03.90 - Unspecified dementia, unspecified severity, without behavioral disturbance, psychotic disturbance, mood disturbance, and anxiety (3) Noncompliance: Status: Acute Code(s): Z91.199 - Patient's noncompliance with other medical treatment and regimen due to unspecified reason Plan The patient is an elderly male with a past history of schizoaffective disorder, dementia, HIV and other medical problems, chronically mentally ill resident of assisted living facility referred to this facility after he became non compliant with medications with daniella and psychosis. The patient was assessed by crisis and transferring to this facility for psychiatric stabilization. At the moment of the interview the patient was able to contract for safety. Plan 1. Gather collateral information. 2. Continue with regular medications, we are not going to change his Depakote, olanzapine and Haldol Decanoate. 3. Reassessment with results. 4. 15 minutes checks since the patient is able to contract for safety. 5. Change Zyprexa to Zydis to avoid cheeking on October 02. 6. IM zyprexa ordered 10 mg t.i.d. p.r.n. refusal of p.o. as per court order. Total dose up to 30 mg a day. 7. Zyprexa increased up to 15 mg p.o. q.h.s. to target daniella and psychosis. Started on October 15. Zyprexa was increased up to 20 mg p.o. q.h.s. on October 17. 8. Increase Haldol up to 5 mg p.o. t.i.d. on October 22 and keep Haldol Decanoate as per court order. 9. Medical certificate issued. Reason for continued inpatient stay Substantial Risk for: inability to function, rapid decompensation and med/psych decompensation Time Spent With Patient Time: Total time managing care of this patient today __20__ minutes.
[2023-10-28 20:00] VITALS: BP 108/74; PULSE 84; RESP 16; TEMP 36.6; O2SAT 96
[2023-10-28] MEDS: OLANZapine 10 MG TABLET 20 MG PO (20:19)
[2023-10-28] MEDS: Mirtazapine 15 MG TABLET PO (20:19)
[2023-10-28] MEDS: Haloperidol Decanoate 50 MG/ML VIAL 100 MG IM (22:18)
[2023-10-29 08:44] VITALS: BP 95/60; PULSE 93; RESP 16; TEMP 36.1; O2SAT 96
[2023-10-29 09:01] VITALS: BP 95/60
[2023-10-29] MEDS: Thiamine HCL 100 MG TABLET PO (09:01)
[2023-10-29] MEDS: Rilpivirine HCL 25 MG TABLET PO (09:01)
[2023-10-29] MEDS: amLODIPine Besylate 5 MG TABLET PO (09:01)
[2023-10-29] MEDS: HaloperidoL 5 MG TABLET PO ×3 (09:02→20:12)
[2023-10-29] MEDS: levETIRAcetam 500 MG TABLET PO ×2 (09:02→20:11)
[2023-10-29] MEDS: Emtricitabin/Tenofovir 200/300 TABLET 1 TAB PO (09:02)
[2023-10-29] MEDS: Divalproex Sodium Sprinkles 125 MG CAP.DR.SPR 250 MG PO ×3 (09:03→20:12)
[2023-10-29] MEDS: OLANZapine 5 MG TABLET PO ×2 (09:03→14:53)
--- NOTE | 2023-10-29 12:32 | P.PNPSI_ITS ---
Subjective Subjective Date of Service: 10/29/23 Reason For Visit: F32.9 Subjective Notes: Pedraza Order and Conditional Voluntary Interim History: The nursing staff reported the patient had been compliant with treatment, social with staff redirectable. The staff has noticed that he is less aggressive. On interview he is pleasant cooperative grandiose at baseline but easily redirectable. The director social will start referrals for custodial facility since the patient has lost his previous facility. Mental Status Exam Mental Status Exam Patient Appearance: Unkempt Patient Orientation: Person and Situation Level of Consciousness: Awake and Appropriate Patient Behavior: Guarded and Passive Mood Description: Withdrawn Affect Description: Constricted Patient Cognition Impaired: Yes Ability to Follow Directions: Good Speech Pattern: Clear Hallucinations: None Delusions: Paranoid Ideation and Grandiose Thought Process: Slowed Thinking Thought Content: positive for [place] and positive for Poverty of Content Judgement: Fair Diagnostics Vital Signs (24Hr): Vital Signs - 24 hr 10/28/23 20:00 10/29/23 08:44 10/29/23 09:01 Temperature 97.8 F 97.0 F Pulse Rate 84 93 Respiratory Rate 16 16 Blood Pressure 108/74 95/60 95/60 Pulse Oximetry 96 96 Oxygen Delivery Method Room Air Room Air BMI result Body Mass Index 17.6 Medications Medications Current Medications Acetaminophen (Acetaminophen 325 Mg Tablet) 650 mg PO Q6H PRN PRN Reason: Headache/Pain Mild Scale (1-3) Last Admin: 10/06/23 01:21 Dose: 650 mg Acetaminophen (Acetaminophen 325 Mg Tablet) 650 mg PO Q6H PRN PRN Reason: Pain (Scale Score 1-3) Al Hydroxide/Mg Hydroxide (Magnesium Hydrox/Alum Hydrox 30 Ml Oral.Susp) 30 ml PO Q6H PRN PRN Reason: Heartburn/Nausea Albuterol Sulfate (Albuterol Sulfate 90 Mcg 8 Gm Inhaler) 2 puff INHALE RQ4H PRN PRN Reason: Wheezing Amlodipine Besylate (Amlodipine Besylate 5 Mg Tablet) 5 mg PO DAILY [facility]; Protocol Last Admin: 10/29/23 09:01 Dose: 5 mg Divalproex Sodium (Divalproex Sodium Sprinkles 125 Mg ) 250 mg PO TID [facility] Last Admin: 10/29/23 09:03 Dose: 250 mg Emtricitabine/Tenofovir (Emtricitabin/Tenofovir 200/300 Tablet) 1 tab PO DAILY [facility] Last Admin: 10/29/23 09:02 Dose: 1 tab Haloperidol (Haloperidol 5 Mg Tablet) 5 mg PO TID [facility] Last Admin: 10/29/23 09:02 Dose: 5 mg Haloperidol Decanoate (Haloperidol Decanoate 50 Mg/Ml Vial) 100 mg IM Q28D [facility] Last Admin: 10/28/23 22:18 Dose: 100 mg Levetiracetam (Levetiracetam 500 Mg Tablet) 500 mg PO BID [facility] Last Admin: 10/29/23 09:02 Dose: 500 mg Magnesium Hydroxide (Milk Of Magnesia 30 Ml Oral.Susp) 30 ml PO DAILY PRN PRN Reason: Constipation Mirtazapine (Mirtazapine 15 Mg Tablet) 15 mg PO BEDTIME [facility] Last Admin: 10/28/23 20:19 Dose: 15 mg Nicotine Polacrilex (Nicotine Polacrilex 2 Mg Gum) 4 mg BUCCAL Q2H PRN PRN Reason: Nicotine Cravings Olanzapine (Olanzapine 5 Mg Tablet) 5 mg PO BID@0800,1500 [facility] Last Admin: 10/29/23 09:03 Dose: 5 mg Olanzapine (Olanzapine 10 Mg Vial) 10 mg IM BEDTIME PRN PRN Reason: if refuses bedtime PO zyprexa Olanzapine (Olanzapine 10 Mg Vial) 5 mg IM BID@0800,1500 PRN PRN Reason: if refuses 0800/1500 PO zyprexa Last Admin: 10/13/23 14:58 Dose: 5 mg Olanzapine (Olanzapine 10 Mg Tablet) 20 mg PO BEDTIME [facility] Last Admin: 10/28/23 20:19 Dose: 20 mg Polyethylene Glycol (Polyethylene Glycol 3350 17 Gm Powd.Pack) 17 gm PO DAILY PRN PRN Reason: Constipation Rilpivirine (Rilpivirine Hcl 25 Mg Tablet) 25 mg PO DAILY [facility] Last Admin: 10/29/23 09:01 Dose: 25 mg Thiamine HCl (Thiamine Hcl 100 Mg Tablet) 100 mg PO DAILY [facility] Last Admin: 10/29/23 09:01 Dose: 100 mg Trazodone HCl (Trazodone Hcl 50 Mg Tablet) 50 mg PO BEDTIME MRX1 PRN PRN Reason: Insomnia Last Admin: 10/26/23 20:53 Dose: 50 mg Allergies Allergies Allergy/AdvReac Type Severity Reaction Status Date / Time No Known Allergies Allergy Unverified 01/28/20 16:07 [No Known Allergies*] Assessment & Plan Assessment & Plan (1) Schizoaffective disorder, bipolar type: Status: Acute Code(s): F25.0 - Schizoaffective disorder, bipolar type (2) Dementia: Status: Acute Code(s): F03.90 - Unspecified dementia, unspecified severity, without behavioral disturbance, psychotic disturbance, mood disturbance, and anxiety (3) Noncompliance: Status: Acute Code(s): Z91.199 - Patient's noncompliance with other medical treatment and regimen due to unspecified reason Plan The patient is an elderly male with a past history of schizoaffective disorder, dementia, HIV and other medical problems, chronically mentally ill resident of assisted living facility referred to this facility after he became non compliant with medications with daniella and psychosis. The patient was assessed by crisis and transferring to this facility for psychiatric stabilization. At the moment of the interview the patient was able to contract for safety. Plan 1. Gather collateral information. 2. Continue with regular medications, we are not going to change his Depakote, olanzapine and Haldol Decanoate. 3. Reassessment with results. 4. 15 minutes checks since the patient is able to contract for safety. 5. Change Zyprexa to Zydis to avoid cheeking on October 02. 6. IM zyprexa ordered 10 mg t.i.d. p.r.n. refusal of p.o. as per court order. Total dose up to 30 mg a day. 7. Zyprexa increased up to 15 mg p.o. q.h.s. to target daniella and psychosis. Started on October 15. Zyprexa was increased up to 20 mg p.o. q.h.s. on October 17. 8. Increase Haldol up to 5 mg p.o. t.i.d. on October 22 and keep Haldol Decanoate as per court order. 9. Medical certificate issued. Reason for continued inpatient stay Substantial Risk for: inability to function, rapid decompensation and med/psych decompensation Time Spent With Patient Time: Total time managing care of this patient today ___20_ minutes.
[2023-10-29 20:00] VITALS: BP 116/66; PULSE 93; RESP 18; TEMP 36.2; O2SAT 95
[2023-10-29] MEDS: Mirtazapine 15 MG TABLET PO (20:11)
[2023-10-29] MEDS: OLANZapine 10 MG TABLET 20 MG PO (20:14)
[2023-10-30 08:00] VITALS: BP 126/74; PULSE 102; RESP 17; TEMP 36.2; O2SAT 100
[2023-10-30 08:38] VITALS: BP 126/74
[2023-10-30] MEDS: Thiamine HCL 100 MG TABLET PO (08:38)
[2023-10-30] MEDS: amLODIPine Besylate 5 MG TABLET PO (08:38)
[2023-10-30] MEDS: Emtricitabin/Tenofovir 200/300 TABLET 1 TAB PO (08:38)
[2023-10-30] MEDS: Divalproex Sodium Sprinkles 125 MG CAP.DR.SPR 250 MG PO ×3 (08:38→20:37)
[2023-10-30] MEDS: Rilpivirine HCL 25 MG TABLET PO (08:38)
[2023-10-30] MEDS: HaloperidoL 5 MG TABLET PO ×3 (08:38→20:37)
[2023-10-30] MEDS: levETIRAcetam 500 MG TABLET PO ×2 (08:38→20:37)
[2023-10-30] MEDS: OLANZapine 5 MG TABLET PO ×2 (08:38→15:04)
--- NOTE | 2023-10-30 13:22 | HO.PSYCHPN ---
Subjective Subjective Date of Service: 10/30/23 Reason For Visit: F32.9 Subjective Notes: Pedraza Order and Conditional Voluntary Interim History: The nursing staff reported the patient had been as usual disorganized but more easily redirectable more pleasant. He slept 8 hours. The vp digital marketing social media and crm reported the admission care was contacted for possible placement. On interview the patient denies new symptoms, grandiose but easily redirectable. At this moment it seems that he is at baseline. Mental Status Exam Mental Status Exam Patient Appearance: Appropriate and Unkempt Patient Orientation: Person and Situation Level of Consciousness: Awake and Appropriate Patient Behavior: Guarded and Passive Mood Description: Calm Affect Description: Labile Patient Cognition Impaired: Yes Ability to Follow Directions: Good Speech Pattern: Clear Hallucinations: None Delusions: Paranoid Ideation, Grandiose and Ideas of Reference Thought Process: Distracted and Slowed Thinking Thought Content: positive for [place] and positive for Poverty of Content Judgement: Poor Diagnostics Vital Signs (24Hr): Vital Signs - 24 hr 10/29/23 20:00 10/30/23 08:00 10/30/23 08:38 Temperature 97.2 F 97.1 F Pulse Rate 93 102 H Respiratory Rate 18 17 Blood Pressure 116/66 126/74 126/74 Pulse Oximetry 95 100 Oxygen Delivery Method Room Air Room Air BMI result Body Mass Index 17.6 Medications Medications Current Medications Acetaminophen (Acetaminophen 325 Mg Tablet) 650 mg PO Q6H PRN PRN Reason: Headache/Pain Mild Scale (1-3) Last Admin: 10/06/23 01:21 Dose: 650 mg Acetaminophen (Acetaminophen 325 Mg Tablet) 650 mg PO Q6H PRN PRN Reason: Pain (Scale Score 1-3) Al Hydroxide/Mg Hydroxide (Magnesium Hydrox/Alum Hydrox 30 Ml Oral.Susp) 30 ml PO Q6H PRN PRN Reason: Heartburn/Nausea Albuterol Sulfate (Albuterol Sulfate 90 Mcg 8 Gm Inhaler) 2 puff INHALE RQ4H PRN PRN Reason: Wheezing Amlodipine Besylate (Amlodipine Besylate 5 Mg Tablet) 5 mg PO DAILY [facility]; Protocol Last Admin: 10/30/23 08:38 Dose: 5 mg Divalproex Sodium (Divalproex Sodium Sprinkles 125 Mg ) 250 mg PO TID [facility] Last Admin: 10/30/23 08:38 Dose: 250 mg Emtricitabine/Tenofovir (Emtricitabin/Tenofovir 200/300 Tablet) 1 tab PO DAILY [facility] Last Admin: 10/30/23 08:38 Dose: 1 tab Haloperidol (Haloperidol 5 Mg Tablet) 5 mg PO TID [facility] Last Admin: 10/30/23 08:38 Dose: 5 mg Haloperidol Decanoate (Haloperidol Decanoate 50 Mg/Ml Vial) 100 mg IM Q28D [facility] Last Admin: 10/28/23 22:18 Dose: 100 mg Levetiracetam (Levetiracetam 500 Mg Tablet) 500 mg PO BID [facility] Last Admin: 10/30/23 08:38 Dose: 500 mg Magnesium Hydroxide (Milk Of Magnesia 30 Ml Oral.Susp) 30 ml PO DAILY PRN PRN Reason: Constipation Mirtazapine (Mirtazapine 15 Mg Tablet) 15 mg PO BEDTIME [facility] Last Admin: 10/29/23 20:11 Dose: 15 mg Nicotine Polacrilex (Nicotine Polacrilex 2 Mg Gum) 4 mg BUCCAL Q2H PRN PRN Reason: Nicotine Cravings Olanzapine (Olanzapine 5 Mg Tablet) 5 mg PO BID@0800,1500 [facility] Last Admin: 10/30/23 08:38 Dose: 5 mg Olanzapine (Olanzapine 10 Mg Vial) 10 mg IM BEDTIME PRN PRN Reason: if refuses bedtime PO zyprexa Olanzapine (Olanzapine 10 Mg Vial) 5 mg IM BID@0800,1500 PRN PRN Reason: if refuses 0800/1500 PO zyprexa Last Admin: 10/13/23 14:58 Dose: 5 mg Olanzapine (Olanzapine 10 Mg Tablet) 20 mg PO BEDTIME [facility] Last Admin: 10/29/23 20:14 Dose: 20 mg Polyethylene Glycol (Polyethylene Glycol 3350 17 Gm Powd.Pack) 17 gm PO DAILY PRN PRN Reason: Constipation Rilpivirine (Rilpivirine Hcl 25 Mg Tablet) 25 mg PO DAILY [facility] Last Admin: 10/30/23 08:38 Dose: 25 mg Thiamine HCl (Thiamine Hcl 100 Mg Tablet) 100 mg PO DAILY [facility] Last Admin: 10/30/23 08:38 Dose: 100 mg Trazodone HCl (Trazodone Hcl 50 Mg Tablet) 50 mg PO BEDTIME MRX1 PRN PRN Reason: Insomnia Last Admin: 10/26/23 20:53 Dose: 50 mg Allergies Allergies Allergy/AdvReac Type Severity Reaction Status Date / Time No Known Allergies Allergy Unverified 01/28/20 16:07 [No Known Allergies*] Assessment & Plan Assessment & Plan (1) Schizoaffective disorder, bipolar type: Status: Acute Code(s): F25.0 - Schizoaffective disorder, bipolar type (2) Dementia: Status: Acute Code(s): F03.90 - Unspecified dementia, unspecified severity, without behavioral disturbance, psychotic disturbance, mood disturbance, and anxiety (3) Noncompliance: Status: Acute Code(s): Z91.199 - Patient's noncompliance with other medical treatment and regimen due to unspecified reason Plan The patient is an elderly male with a past history of schizoaffective disorder, dementia, HIV and other medical problems, chronically mentally ill resident of assisted living facility referred to this facility after he became non compliant with medications with daniella and psychosis. The patient was assessed by crisis and transferring to this facility for psychiatric stabilization. At the moment of the interview the patient was able to contract for safety. Plan 1. Gather collateral information. 2. Continue with regular medications, we are not going to change his Depakote, olanzapine and Haldol Decanoate. 3. Reassessment with results. 4. 15 minutes checks since the patient is able to contract for safety. 5. Change Zyprexa to Zydis to avoid cheeking on October 02. 6. IM zyprexa ordered 10 mg t.i.d. p.r.n. refusal of p.o. as per court order. Total dose up to 30 mg a day. 7. Zyprexa increased up to 15 mg p.o. q.h.s. to target daniella and psychosis. Started on October 15. Zyprexa was increased up to 20 mg p.o. q.h.s. on October 17. 8. Increase Haldol up to 5 mg p.o. t.i.d. on October 22 and keep Haldol Decanoate as per court order. 9. Medical certificate issued. Reason for continued inpatient stay Substantial Risk for: inability to function, rapid decompensation and med/psych decompensation Time Spent With Patient Time: Total time managing care of this patient today __20__ minutes.
--- NOTE | 2023-10-30 14:16 | MHC.CLN ---
F/U DIET=REGULAR. ENSURE TID TO INCREASE KCALS/NUTRITION. SUPPLEMENT PROVIDES 1050 KCALS, 60 G PROTEIN. INTAKE CONTINUES VARIABLE, BITES TO 100%. WILL DRINK AND ACCEPTS ENSURE SUPPLEMENT. NO SIGNIFICANT WEIGHT CHANGE SINCE ADMISSION. PROVIDE ADDITIONAL SNACKS/SUPPLEMENTS FROM [employer] DESIRED. FOLLOW FOR INTAKE OF MEALS AND SUPPLEMENT. RD TO FOLLOW UP WEEKLY.
[2023-10-30] MEDS: OLANZapine 10 MG TABLET 20 MG PO (20:37)
[2023-10-30] MEDS: Mirtazapine 15 MG TABLET PO (20:38)
[2023-10-30] MEDS: traZODone HCL 50 MG TABLET PO (20:38)
[2023-10-31 08:00] VITALS: BP 87/51; PULSE 78; RESP 18; TEMP 36.9; O2SAT 95
[2023-10-31] MEDS: HaloperidoL 5 MG TABLET PO ×3 (09:02→21:09)
[2023-10-31] MEDS: levETIRAcetam 500 MG TABLET PO ×2 (09:02→21:10)
[2023-10-31] MEDS: Emtricitabin/Tenofovir 200/300 TABLET 1 TAB PO (09:02)
[2023-10-31] MEDS: Divalproex Sodium Sprinkles 125 MG CAP.DR.SPR 250 MG PO ×3 (09:02→21:09)
[2023-10-31] MEDS: Thiamine HCL 100 MG TABLET PO (09:03)
[2023-10-31] MEDS: Rilpivirine HCL 25 MG TABLET PO (09:03)
[2023-10-31] MEDS: OLANZapine 5 MG TABLET PO ×2 (09:03→14:14)
[2023-10-31 09:04] VITALS: BP 87/51
--- NOTE | 2023-10-31 12:41 | HO.PSYCHPN ---
Subjective Subjective Date of Service: 10/31/23 Reason For Visit: F32.9 Subjective Notes: Pedraza Order and Conditional Voluntary Interim History: The nursing staff reported that the patient has been more calm and cooperative, chronically grandiose but easily redirectable. On interview, he was pleasant, no changes on his mental status Mental Status Exam Mental Status Exam Patient Appearance: Appropriate and Unkempt Patient Orientation: Person and Situation Level of Consciousness: Awake and Appropriate Patient Behavior: Talkative Mood Description: Cheerful Affect Description: Labile Patient Cognition Impaired: Yes Ability to Follow Directions: Fair Speech Pattern: Clear Hallucinations: None Delusions: Paranoid Ideation and Grandiose Thought Process: Distracted and Slowed Thinking Thought Content: positive for [place], positive for Poverty of Content, positive for Thought Blocking and positive for Disorganized Judgement: Poor Diagnostics Vital Signs (24Hr): Vital Signs - 24 hr 10/31/23 08:00 10/31/23 09:04 Temperature 98.4 F Pulse Rate 78 Respiratory Rate 18 Blood Pressure 87/51 L 87/51 L Pulse Oximetry 95 Oxygen Delivery Method Room Air BMI result Body Mass Index 17.6 Medications Medications Current Medications Acetaminophen (Acetaminophen 325 Mg Tablet) 650 mg PO Q6H PRN PRN Reason: Pain (Scale Score 1-3) Al Hydroxide/Mg Hydroxide (Magnesium Hydrox/Alum Hydrox 30 Ml Oral.Susp) 30 ml PO Q6H PRN PRN Reason: Heartburn/Nausea Albuterol Sulfate (Albuterol Sulfate 90 Mcg 8 Gm Inhaler) 2 puff INHALE RQ4H PRN PRN Reason: Wheezing Amlodipine Besylate (Amlodipine Besylate 5 Mg Tablet) 5 mg PO DAILY [facility]; Protocol Last Admin: 10/31/23 09:04 Dose: Not Given Divalproex Sodium (Divalproex Sodium Sprinkles 125 Mg ) 250 mg PO TID [facility] Last Admin: 10/31/23 09:02 Dose: 250 mg Emtricitabine/Tenofovir (Emtricitabin/Tenofovir 200/300 Tablet) 1 tab PO DAILY [facility] Last Admin: 10/31/23 09:02 Dose: 1 tab Haloperidol (Haloperidol 5 Mg Tablet) 5 mg PO TID [facility] Last Admin: 10/31/23 09:02 Dose: 5 mg Haloperidol Decanoate (Haloperidol Decanoate 50 Mg/Ml Vial) 100 mg IM Q28D [facility] Last Admin: 10/28/23 22:18 Dose: 100 mg Levetiracetam (Levetiracetam 500 Mg Tablet) 500 mg PO BID [facility] Last Admin: 10/31/23 09:02 Dose: 500 mg Magnesium Hydroxide (Milk Of Magnesia 30 Ml Oral.Susp) 30 ml PO DAILY PRN PRN Reason: Constipation Mirtazapine (Mirtazapine 15 Mg Tablet) 15 mg PO BEDTIME [facility] Last Admin: 10/30/23 20:38 Dose: 15 mg Nicotine Polacrilex (Nicotine Polacrilex 2 Mg Gum) 4 mg BUCCAL Q2H PRN PRN Reason: Nicotine Cravings Olanzapine (Olanzapine 5 Mg Tablet) 5 mg PO BID@0800,1500 [facility] Last Admin: 10/31/23 09:03 Dose: 5 mg Olanzapine (Olanzapine 10 Mg Vial) 10 mg IM BEDTIME PRN PRN Reason: if refuses bedtime PO zyprexa Olanzapine (Olanzapine 10 Mg Vial) 5 mg IM BID@0800,1500 PRN PRN Reason: if refuses 0800/1500 PO zyprexa Last Admin: 10/13/23 14:58 Dose: 5 mg Olanzapine (Olanzapine 10 Mg Tablet) 20 mg PO BEDTIME [facility] Last Admin: 10/30/23 20:37 Dose: 20 mg Polyethylene Glycol (Polyethylene Glycol 3350 17 Gm Powd.Pack) 17 gm PO DAILY PRN PRN Reason: Constipation Rilpivirine (Rilpivirine Hcl 25 Mg Tablet) 25 mg PO DAILY [facility] Last Admin: 10/31/23 09:03 Dose: 25 mg Thiamine HCl (Thiamine Hcl 100 Mg Tablet) 100 mg PO DAILY [facility] Last Admin: 10/31/23 09:03 Dose: 100 mg Trazodone HCl (Trazodone Hcl 50 Mg Tablet) 50 mg PO BEDTIME MRX1 PRN PRN Reason: Insomnia Last Admin: 10/30/23 20:38 Dose: 50 mg Allergies Allergies Allergy/AdvReac Type Severity Reaction Status Date / Time No Known Allergies Allergy Unverified 01/28/20 16:07 [No Known Allergies*] Assessment & Plan Assessment & Plan (1) Schizoaffective disorder, bipolar type: Status: Acute Code(s): F25.0 - Schizoaffective disorder, bipolar type (2) Dementia: Status: Acute Code(s): F03.90 - Unspecified dementia, unspecified severity, without behavioral disturbance, psychotic disturbance, mood disturbance, and anxiety (3) Noncompliance: Status: Acute Code(s): Z91.199 - Patient's noncompliance with other medical treatment and regimen due to unspecified reason Plan The patient is an elderly male with a past history of schizoaffective disorder, dementia, HIV and other medical problems, chronically mentally ill resident of assisted living facility referred to this facility after he became non compliant with medications with daniella and psychosis. The patient was assessed by crisis and transferring to this facility for psychiatric stabilization. At the moment of the interview the patient was able to contract for safety. Plan 1. Gather collateral information. 2. Continue with regular medications, we are not going to change his Depakote, olanzapine and Haldol Decanoate. 3. Reassessment with results. 4. 15 minutes checks since the patient is able to contract for safety. 5. Change Zyprexa to Zydis to avoid cheeking on October 02. 6. IM zyprexa ordered 10 mg t.i.d. p.r.n. refusal of p.o. as per court order. Total dose up to 30 mg a day. 7. Zyprexa increased up to 15 mg p.o. q.h.s. to target daniella and psychosis. Started on October 15. Zyprexa was increased up to 20 mg p.o. q.h.s. on October 17. 8. Increase Haldol up to 5 mg p.o. t.i.d. on October 22 and keep Haldol Decanoate as per court order. 9. Medical certificate issued. Reason for continued inpatient stay Substantial Risk for: inability to function, rapid decompensation and med/psych decompensation Time Spent With Patient Time: Total time managing care of this patient today __20__ minutes.
[2023-10-31 13:45] VITALS: BMI 17.9
[2023-10-31 20:00] VITALS: RESP 18
[2023-10-31] MEDS: Mirtazapine 15 MG TABLET PO (21:10)
[2023-10-31] MEDS: OLANZapine 10 MG TABLET 20 MG PO (21:10)
[2023-11-01 07:46] VITALS: BP 108/73; PULSE 93; RESP 18; TEMP 36; O2SAT 97
[2023-11-01 08:11] VITALS: BP 108/73
[2023-11-01] MEDS: Thiamine HCL 100 MG TABLET PO (08:11)
[2023-11-01] MEDS: Emtricitabin/Tenofovir 200/300 TABLET 1 TAB PO (08:11)
[2023-11-01] MEDS: amLODIPine Besylate 5 MG TABLET PO (08:11)
[2023-11-01] MEDS: Rilpivirine HCL 25 MG TABLET PO (08:11)
[2023-11-01] MEDS: Divalproex Sodium Sprinkles 125 MG CAP.DR.SPR 250 MG PO ×3 (08:11→21:03)
[2023-11-01] MEDS: levETIRAcetam 500 MG TABLET PO ×2 (08:11→21:03)
[2023-11-01] MEDS: OLANZapine 5 MG TABLET PO ×2 (08:11→15:19)
[2023-11-01] MEDS: HaloperidoL 5 MG TABLET PO ×3 (08:11→21:03)
--- NOTE | 2023-11-01 13:37 | P.PNPSI_ITS ---
Subjective Subjective Date of Service: 11/01/23 Reason For Visit: F32.9 Subjective Notes: Conditional Voluntary Interim History: The nursing staff reported the patient had been cooperative and pleasant stating most of the time in his room.? He took all his medications with encouragement and he slept 8 hours.? The psychologist social reported that he had been referred to several [facility] facilities.? On interview the patient remains cooperative pleasant, disorganized and grandiose as usual but much more cooperative. Mental Status Exam Mental Status Exam Patient Appearance: Appropriate and Unkempt Patient Orientation: Person and Situation Level of Consciousness: Awake Patient Behavior: Guarded and Passive Mood Description: Withdrawn Affect Description: Constricted Patient Cognition Impaired: Yes Ability to Follow Directions: Good Speech Pattern: Clear Hallucinations: None Delusions: Not Present Thought Process: Distracted and Slowed Thinking Thought Content: positive for [place] and positive for Poverty of Content Judgement: Fair Diagnostics Vital Signs (24Hr): Vital Signs - 24 hr 10/31/23 20:00 11/01/23 07:46 11/01/23 08:11 Temperature 96.8 F Pulse Rate 93 Respiratory Rate 18 18 Blood Pressure 108/73 108/73 Pulse Oximetry 97 Oxygen Delivery Method Room Air BMI result Body Mass Index 17.9 Medications Medications Current Medications Acetaminophen (Acetaminophen 325 Mg Tablet) 650 mg PO Q6H PRN PRN Reason: Pain (Scale Score 1-3) Al Hydroxide/Mg Hydroxide (Magnesium Hydrox/Alum Hydrox 30 Ml Oral.Susp) 30 ml PO Q6H PRN PRN Reason: Heartburn/Nausea Albuterol Sulfate (Albuterol Sulfate 90 Mcg 8 Gm Inhaler) 2 puff INHALE RQ4H PRN PRN Reason: Wheezing Amlodipine Besylate (Amlodipine Besylate 5 Mg Tablet) 5 mg PO DAILY [facility]; Protocol Last Admin: 11/01/23 08:11 Dose: 5 mg Divalproex Sodium (Divalproex Sodium Sprinkles 125 Mg ) 250 mg PO TID [facility] Last Admin: 11/01/23 08:11 Dose: 250 mg Emtricitabine/Tenofovir (Emtricitabin/Tenofovir 200/300 Tablet) 1 tab PO DAILY [facility] Last Admin: 11/01/23 08:11 Dose: 1 tab Haloperidol (Haloperidol 5 Mg Tablet) 5 mg PO TID [facility] Last Admin: 11/01/23 08:11 Dose: 5 mg Haloperidol Decanoate (Haloperidol Decanoate 50 Mg/Ml Vial) 100 mg IM Q28D [facility] Last Admin: 10/28/23 22:18 Dose: 100 mg Levetiracetam (Levetiracetam 500 Mg Tablet) 500 mg PO BID [facility] Last Admin: 11/01/23 08:11 Dose: 500 mg Magnesium Hydroxide (Milk Of Magnesia 30 Ml Oral.Susp) 30 ml PO DAILY PRN PRN Reason: Constipation Mirtazapine (Mirtazapine 15 Mg Tablet) 15 mg PO BEDTIME [facility] Last Admin: 10/31/23 21:10 Dose: 15 mg Nicotine Polacrilex (Nicotine Polacrilex 2 Mg Gum) 4 mg BUCCAL Q2H PRN PRN Reason: Nicotine Cravings Olanzapine (Olanzapine 5 Mg Tablet) 5 mg PO BID@0800,1500 [facility] Last Admin: 11/01/23 08:11 Dose: 5 mg Olanzapine (Olanzapine 10 Mg Vial) 10 mg IM BEDTIME PRN PRN Reason: if refuses bedtime PO zyprexa Olanzapine (Olanzapine 10 Mg Vial) 5 mg IM BID@0800,1500 PRN PRN Reason: if refuses 0800/1500 PO zyprexa Last Admin: 10/13/23 14:58 Dose: 5 mg Olanzapine (Olanzapine 10 Mg Tablet) 20 mg PO BEDTIME [facility] Last Admin: 10/31/23 21:10 Dose: 20 mg Polyethylene Glycol (Polyethylene Glycol 3350 17 Gm Powd.Pack) 17 gm PO DAILY PRN PRN Reason: Constipation Rilpivirine (Rilpivirine Hcl 25 Mg Tablet) 25 mg PO DAILY [facility] Last Admin: 11/01/23 08:11 Dose: 25 mg Thiamine HCl (Thiamine Hcl 100 Mg Tablet) 100 mg PO DAILY [facility] Last Admin: 11/01/23 08:11 Dose: 100 mg Trazodone HCl (Trazodone Hcl 50 Mg Tablet) 50 mg PO BEDTIME MRX1 PRN PRN Reason: Insomnia Last Admin: 10/30/23 20:38 Dose: 50 mg Allergies Allergies Allergy/AdvReac Type Severity Reaction Status Date / Time No Known Allergies Allergy Unverified 01/28/20 16:07 [No Known Allergies*] Assessment & Plan Assessment & Plan (1) Schizoaffective disorder, bipolar type: Status: Acute Code(s): F25.0 - Schizoaffective disorder, bipolar type (2) Dementia: Status: Acute Code(s): F03.90 - Unspecified dementia, unspecified severity, without behavioral disturbance, psychotic disturbance, mood disturbance, and anxiety (3) Noncompliance: Status: Acute Code(s): Z91.199 - Patient's noncompliance with other medical treatment and regimen due to unspecified reason Plan The patient is an elderly male with a past history of schizoaffective disorder, dementia, HIV and other medical problems, chronically mentally ill resident of assisted living facility referred to this facility after he became non compliant with medications with daniella and psychosis. The patient was assessed by crisis and transferring to this facility for psychiatric stabilization. At the moment of the interview the patient was able to contract for safety. Plan 1. Gather collateral information. 2. Continue with regular medications, we are not going to change his Depakote, olanzapine and Haldol Decanoate. 3. Reassessment with results. 4. 15 minutes checks since the patient is able to contract for safety. 5. Change Zyprexa to Zydis to avoid cheeking on October 02. 6. IM zyprexa ordered 10 mg t.i.d. p.r.n. refusal of p.o. as per court order. Total dose up to 30 mg a day. 7. Zyprexa increased up to 15 mg p.o. q.h.s. to target daniella and psychosis. Started on October 15. Zyprexa was increased up to 20 mg p.o. q.h.s. on October 17. 8. Increase Haldol up to 5 mg p.o. t.i.d. on October 22 and keep Haldol Decanoate as per court order. 9. Medical certificate issued. Reason for continued inpatient stay Substantial Risk for: inability to function, rapid decompensation and med/psych decompensation Time Spent With Patient Time: Total time managing care of this patient today __20__ minutes.
[2023-11-01 19:35] VITALS: RESP 20
[2023-11-01] MEDS: OLANZapine 10 MG TABLET 20 MG PO (21:03)
[2023-11-01] MEDS: Mirtazapine 15 MG TABLET PO (21:03)
[2023-11-02 08:00] VITALS: BP 133/86; PULSE 83; RESP 18; TEMP 36.2; O2SAT 96
[2023-11-02 08:50] VITALS: BP 133/86
[2023-11-02] MEDS: Divalproex Sodium Sprinkles 125 MG CAP.DR.SPR 250 MG PO ×3 (08:50→20:50)
[2023-11-02] MEDS: OLANZapine 5 MG TABLET PO ×2 (08:50→15:42)
[2023-11-02] MEDS: Thiamine HCL 100 MG TABLET PO (08:50)
[2023-11-02] MEDS: Rilpivirine HCL 25 MG TABLET PO (08:50)
[2023-11-02] MEDS: amLODIPine Besylate 5 MG TABLET PO (08:50)
[2023-11-02] MEDS: levETIRAcetam 500 MG TABLET PO ×2 (08:50→20:50)
[2023-11-02] MEDS: Emtricitabin/Tenofovir 200/300 TABLET 1 TAB PO (08:50)
[2023-11-02] MEDS: HaloperidoL 5 MG TABLET PO ×3 (08:50→20:50)
--- NOTE | 2023-11-02 14:32 | HO.PSYCHPN ---
Subjective Subjective Date of Service: 11/02/23 Reason For Visit: F32.9 Subjective Notes: Conditional Voluntary Interim History: 67 yo male reports he is doing ok - cooperative and more agreeable than I have seen him in past, actually engages in conversation with provider- gets out for meals, continues disorganized and grandiose at times- feels he should be on aspirin and mvi. Medication Compliance: Yes Side effects from medications: No Attending Groups: No Review of Systems Acute medical concerns: No can not go on asa no hx of mi/cva and on depakote which could lead to bleeding Medical Review of Systems: unchanged Mental Status Exam Mental Status Exam Patient Appearance: Bizarre (hair in pig tails, shirt up exposing belly - ) Patient Orientation: Person, Place and Situation Level of Consciousness: Awake Patient Behavior: Talkative, Cooperative and Distractible Mood Description: Calm and Cheerful (friendly with provider, but not inappropriate- superficial conversant) Affect Description: Calm Patient Cognition Impaired: Yes Ability to Follow Directions: Fair Speech Pattern: Clear and Poor Articulation Delusions: Grandiose Thought Process: Distracted Thought Content: positive for Circumstantial Judgement: Fair Diagnostics Vital Signs (24Hr): Vital Signs - 24 hr 11/01/23 19:35 11/02/23 08:00 11/02/23 08:50 Temperature 97.2 F Pulse Rate 83 Respiratory Rate 20 18 Blood Pressure 133/86 133/86 Pulse Oximetry 96 Oxygen Delivery Method Room Air BMI result Body Mass Index 17.9 Medications Medications Current Medications Acetaminophen (Acetaminophen 325 Mg Tablet) 650 mg PO Q6H PRN PRN Reason: Pain (Scale Score 1-3) Al Hydroxide/Mg Hydroxide (Magnesium Hydrox/Alum Hydrox 30 Ml Oral.Susp) 30 ml PO Q6H PRN PRN Reason: Heartburn/Nausea Albuterol Sulfate (Albuterol Sulfate 90 Mcg 8 Gm Inhaler) 2 puff INHALE RQ4H PRN PRN Reason: Wheezing Amlodipine Besylate (Amlodipine Besylate 5 Mg Tablet) 5 mg PO DAILY [facility]; Protocol Last Admin: 11/02/23 08:50 Dose: 5 mg Divalproex Sodium (Divalproex Sodium Sprinkles 125 Mg ) 250 mg PO TID [facility] Last Admin: 11/02/23 08:50 Dose: 250 mg Emtricitabine/Tenofovir (Emtricitabin/Tenofovir 200/300 Tablet) 1 tab PO DAILY [facility] Last Admin: 11/02/23 08:50 Dose: 1 tab Haloperidol (Haloperidol 5 Mg Tablet) 5 mg PO TID [facility] Last Admin: 11/02/23 08:50 Dose: 5 mg Haloperidol Decanoate (Haloperidol Decanoate 50 Mg/Ml Vial) 100 mg IM Q28D [facility] Last Admin: 10/28/23 22:18 Dose: 100 mg Levetiracetam (Levetiracetam 500 Mg Tablet) 500 mg PO BID [facility] Last Admin: 11/02/23 08:50 Dose: 500 mg Magnesium Hydroxide (Milk Of Magnesia 30 Ml Oral.Susp) 30 ml PO DAILY PRN PRN Reason: Constipation Mirtazapine (Mirtazapine 15 Mg Tablet) 15 mg PO BEDTIME [facility] Last Admin: 11/01/23 21:03 Dose: 15 mg Nicotine Polacrilex (Nicotine Polacrilex 2 Mg Gum) 4 mg BUCCAL Q2H PRN PRN Reason: Nicotine Cravings Olanzapine (Olanzapine 5 Mg Tablet) 5 mg PO BID@0800,1500 [facility] Last Admin: 11/02/23 08:50 Dose: 5 mg Olanzapine (Olanzapine 10 Mg Vial) 10 mg IM BEDTIME PRN PRN Reason: if refuses bedtime PO zyprexa Olanzapine (Olanzapine 10 Mg Vial) 5 mg IM BID@0800,1500 PRN PRN Reason: if refuses 0800/1500 PO zyprexa Last Admin: 10/13/23 14:58 Dose: 5 mg Olanzapine (Olanzapine 10 Mg Tablet) 20 mg PO BEDTIME [facility] Last Admin: 11/01/23 21:03 Dose: 20 mg Polyethylene Glycol (Polyethylene Glycol 3350 17 Gm Powd.Pack) 17 gm PO DAILY PRN PRN Reason: Constipation Rilpivirine (Rilpivirine Hcl 25 Mg Tablet) 25 mg PO DAILY [facility] Last Admin: 11/02/23 08:50 Dose: 25 mg Thiamine HCl (Thiamine Hcl 100 Mg Tablet) 100 mg PO DAILY [facility] Last Admin: 11/02/23 08:50 Dose: 100 mg Trazodone HCl (Trazodone Hcl 50 Mg Tablet) 50 mg PO BEDTIME MRX1 PRN PRN Reason: Insomnia Last Admin: 10/30/23 20:38 Dose: 50 mg Allergies Allergies Allergy/AdvReac Type Severity Reaction Status Date / Time No Known Allergies Allergy Unverified 01/28/20 16:07 [No Known Allergies*] Assessment & Plan Assessment & Plan (1) Schizoaffective disorder, bipolar type: Status: Acute Code(s): F25.0 - Schizoaffective disorder, bipolar type Assessment and Plan: 11/01 mildly up - positive mood=- but less irritable than in past visits (2) Dementia: Status: Acute Code(s): F03.90 - Unspecified dementia, unspecified severity, without behavioral disturbance, psychotic disturbance, mood disturbance, and anxiety Assessment and Plan: 11/01 ongoing dementia continue with reorientation and distraction prn - (3) Noncompliance: Status: Acute Code(s): Z91.199 - Patient's noncompliance with other medical treatment and regimen due to unspecified reason Assessment and Plan: seems to be taking medication currently - watches nurse crush them and put in ice cream Plan The patient is an elderly male with a past history of schizoaffective disorder, dementia, HIV and other medical problems, chronically mentally ill resident of assisted living facility referred to this facility after he became non compliant with medications with daniella and psychosis. The patient was assessed by crisis and transferring to this facility for psychiatric stabilization. At the moment of the interview the patient was able to contract for safety. Plan 1. Gather collateral information. 2. Continue with regular medications, we are not going to change his Depakote, olanzapine and Haldol Decanoate. 3. Reassessment with results. 4. 15 minutes checks since the patient is able to contract for safety. 5. Change Zyprexa to Zydis to avoid cheeking on October 02. 6. IM zyprexa ordered 10 mg t.i.d. p.r.n. refusal of p.o. as per court order. Total dose up to 30 mg a day. 7. Zyprexa increased up to 15 mg p.o. q.h.s. to target daniella and psychosis. Started on October 15. Zyprexa was increased up to 20 mg p.o. q.h.s. on October 17. 8. Increase Haldol up to 5 mg p.o. t.i.d. on October 22 and keep Haldol Decanoate as per court order. 9. Medical certificate issued. Patient educated on: medication risk/benefits Informed Consent: further education needed Reason for continued inpatient stay Substantial Risk for: rapid decompensation and med/psych decompensation Time Spent With Patient Time: Total time managing care of this patient today ____ minutes.
[2023-11-02 20:00] VITALS: BP 100/67; PULSE 92; RESP 16; TEMP 36.6; O2SAT 95
[2023-11-02] MEDS: Mirtazapine 15 MG TABLET PO (20:50)
[2023-11-02] MEDS: OLANZapine 10 MG TABLET 20 MG PO (20:50)
[2023-11-02] MEDS: Multivitamin TABLET 1 TAB PO (20:50)
[2023-11-03 07:48] VITALS: BP 116/64; PULSE 84; RESP 17; TEMP 36.4; O2SAT 96
[2023-11-03 08:46] VITALS: BP 116/64
[2023-11-03] MEDS: Thiamine HCL 100 MG TABLET PO (08:46)
[2023-11-03] MEDS: OLANZapine 5 MG TABLET PO ×2 (08:46→15:53)
[2023-11-03] MEDS: HaloperidoL 5 MG TABLET PO ×3 (08:46→20:39)
[2023-11-03] MEDS: amLODIPine Besylate 5 MG TABLET PO (08:46)
[2023-11-03] MEDS: Rilpivirine HCL 25 MG TABLET PO (08:46)
[2023-11-03] MEDS: levETIRAcetam 500 MG TABLET PO ×2 (08:49→20:39)
[2023-11-03] MEDS: Emtricitabin/Tenofovir 200/300 TABLET 1 TAB PO (08:49)
[2023-11-03] MEDS: Divalproex Sodium Sprinkles 125 MG CAP.DR.SPR 250 MG PO ×3 (08:53→20:38)
--- NOTE | 2023-11-03 13:56 | HO.PSYCHPN ---
Subjective Subjective Date of Service: 11/03/23 Reason For Visit: F32.9 Subjective Notes: Conditional Voluntary Interim History: 67 yo fatigued lying in bed, less enageable today - doing well on unit cooperative and eating meals and engagin more appropriately with people Medication Compliance: Yes Side effects from medications: No Attending Groups: Intermittent Review of Systems Acute medical concerns: No Medical Review of Systems: unchanged Mental Status Exam Mental Status Exam Patient Appearance: Fatigued Patient Orientation: Person, Place and Situation Level of Consciousness: Drowsy Patient Behavior: Cooperative and Passive Mood Description: Calm Affect Description: Withdrawn Patient Cognition Impaired: Yes Ability to Follow Directions: Fair Speech Pattern: Clear and Poor Articulation Delusions: Grandiose (less so ) Thought Process: Distracted Thought Content: positive for Circumstantial Judgement: Fair Diagnostics Vital Signs (24Hr): Vital Signs - 24 hr 11/02/23 20:00 11/03/23 07:48 11/03/23 08:46 Temperature 98 F 97.5 F Pulse Rate 92 84 Respiratory Rate 16 17 Blood Pressure 100/67 116/64 116/64 Pulse Oximetry 95 96 Oxygen Delivery Method Room Air Room Air BMI result Body Mass Index 17.9 Medications Medications Current Medications Acetaminophen (Acetaminophen 325 Mg Tablet) 650 mg PO Q6H PRN PRN Reason: Pain (Scale Score 1-3) Al Hydroxide/Mg Hydroxide (Magnesium Hydrox/Alum Hydrox 30 Ml Oral.Susp) 30 ml PO Q6H PRN PRN Reason: Heartburn/Nausea Albuterol Sulfate (Albuterol Sulfate 90 Mcg 8 Gm Inhaler) 2 puff INHALE RQ4H PRN PRN Reason: Wheezing Amlodipine Besylate (Amlodipine Besylate 5 Mg Tablet) 5 mg PO DAILY [facility]; Protocol Last Admin: 11/03/23 08:46 Dose: 5 mg Divalproex Sodium (Divalproex Sodium Sprinkles 125 Mg ) 250 mg PO TID [facility] Last Admin: 11/03/23 08:53 Dose: 250 mg Emtricitabine/Tenofovir (Emtricitabin/Tenofovir 200/300 Tablet) 1 tab PO DAILY [facility] Last Admin: 11/03/23 08:49 Dose: 1 tab Haloperidol (Haloperidol 5 Mg Tablet) 5 mg PO TID [facility] Last Admin: 11/03/23 08:46 Dose: 5 mg Haloperidol Decanoate (Haloperidol Decanoate 50 Mg/Ml Vial) 100 mg IM Q28D [facility] Last Admin: 10/28/23 22:18 Dose: 100 mg Levetiracetam (Levetiracetam 500 Mg Tablet) 500 mg PO BID [facility] Last Admin: 11/03/23 08:49 Dose: 500 mg Magnesium Hydroxide (Milk Of Magnesia 30 Ml Oral.Susp) 30 ml PO DAILY PRN PRN Reason: Constipation Mirtazapine (Mirtazapine 15 Mg Tablet) 15 mg PO BEDTIME [facility] Last Admin: 11/02/23 20:50 Dose: 15 mg Multivitamins/Vitamin C (Multivitamin Tablet) 1 tab PO BEDTIME [facility] Last Admin: 11/02/23 20:50 Dose: 1 tab Nicotine Polacrilex (Nicotine Polacrilex 2 Mg Gum) 4 mg BUCCAL Q2H PRN PRN Reason: Nicotine Cravings Olanzapine (Olanzapine 5 Mg Tablet) 5 mg PO BID@0800,1500 [facility] Last Admin: 11/03/23 08:46 Dose: 5 mg Olanzapine (Olanzapine 10 Mg Vial) 10 mg IM BEDTIME PRN PRN Reason: if refuses bedtime PO zyprexa Olanzapine (Olanzapine 10 Mg Vial) 5 mg IM BID@0800,1500 PRN PRN Reason: if refuses 0800/1500 PO zyprexa Last Admin: 10/13/23 14:58 Dose: 5 mg Olanzapine (Olanzapine 10 Mg Tablet) 20 mg PO BEDTIME [facility] Last Admin: 11/02/23 20:50 Dose: 20 mg Polyethylene Glycol (Polyethylene Glycol 3350 17 Gm Powd.Pack) 17 gm PO DAILY PRN PRN Reason: Constipation Rilpivirine (Rilpivirine Hcl 25 Mg Tablet) 25 mg PO DAILY [facility] Last Admin: 11/03/23 08:46 Dose: 25 mg Thiamine HCl (Thiamine Hcl 100 Mg Tablet) 100 mg PO DAILY [facility] Last Admin: 11/03/23 08:46 Dose: 100 mg Trazodone HCl (Trazodone Hcl 50 Mg Tablet) 50 mg PO BEDTIME MRX1 PRN PRN Reason: Insomnia Last Admin: 10/30/23 20:38 Dose: 50 mg Allergies Allergies Allergy/AdvReac Type Severity Reaction Status Date / Time No Known Allergies Allergy Unverified 01/28/20 16:07 [No Known Allergies*] Assessment & Plan Assessment & Plan (1) Schizoaffective disorder, bipolar type: Status: Acute Code(s): F25.0 - Schizoaffective disorder, bipolar type Assessment and Plan: 11/01 mildly up - positive mood=- but less irritable than in past visits 11/02 CTP (2) Dementia: Status: Acute Code(s): F03.90 - Unspecified dementia, unspecified severity, without behavioral disturbance, psychotic disturbance, mood disturbance, and anxiety Assessment and Plan: 11/01 ongoing dementia continue with reorientation and distraction prn - (3) Noncompliance: Status: Acute Code(s): Z91.199 - Patient's noncompliance with other medical treatment and regimen due to unspecified reason Assessment and Plan: seems to be taking medication currently - watches nurse crush them and put in ice cream Plan The patient is an elderly male with a past history of schizoaffective disorder, dementia, HIV and other medical problems, chronically mentally ill resident of assisted living facility referred to this facility after he became non compliant with medications with daniella and psychosis. The patient was assessed by crisis and transferring to this facility for psychiatric stabilization. At the moment of the interview the patient was able to contract for safety. Plan 1. Gather collateral information. 2. Continue with regular medications, we are not going to change his Depakote, olanzapine and Haldol Decanoate. 3. Reassessment with results. 4. 15 minutes checks since the patient is able to contract for safety. 5. Change Zyprexa to Zydis to avoid cheeking on October 02. 6. IM zyprexa ordered 10 mg t.i.d. p.r.n. refusal of p.o. as per court order. Total dose up to 30 mg a day. 7. Zyprexa increased up to 15 mg p.o. q.h.s. to target daniella and psychosis. Started on October 15. Zyprexa was increased up to 20 mg p.o. q.h.s. on October 17. 8. Increase Haldol up to 5 mg p.o. t.i.d. on October 22 and keep Haldol Decanoate as per court order. 9. Medical certificate issued. Reason for continued inpatient stay Substantial Risk for: rapid decompensation Time Spent With Patient Time: Total time managing care of this patient today ____ minutes.
[2023-11-03 20:00] VITALS: BP 115/63; PULSE 84; RESP 16; TEMP 35.9; O2SAT 96
[2023-11-03] MEDS: traZODone HCL 50 MG TABLET PO (20:39)
[2023-11-03] MEDS: OLANZapine 10 MG TABLET 20 MG PO (20:39)
[2023-11-03] MEDS: Mirtazapine 15 MG TABLET PO (20:39)
[2023-11-03] MEDS: Multivitamin TABLET 1 TAB PO (20:41)
[2023-11-04 08:00] VITALS: BP 107/66; PULSE 87; RESP 18; TEMP 36.4; O2SAT 95
[2023-11-04 08:22] VITALS: BP 107/66
[2023-11-04] MEDS: levETIRAcetam 500 MG TABLET PO ×2 (08:22→20:43)
[2023-11-04] MEDS: amLODIPine Besylate 5 MG TABLET PO (08:22)
[2023-11-04] MEDS: HaloperidoL 5 MG TABLET PO ×3 (08:22→20:43)
[2023-11-04] MEDS: Thiamine HCL 100 MG TABLET PO (08:22)
[2023-11-04] MEDS: OLANZapine 5 MG TABLET PO ×2 (08:22→15:09)
[2023-11-04] MEDS: Emtricitabin/Tenofovir 200/300 TABLET 1 TAB PO (08:23)
[2023-11-04] MEDS: Rilpivirine HCL 25 MG TABLET PO (08:23)
[2023-11-04] MEDS: Divalproex Sodium Sprinkles 125 MG CAP.DR.SPR 250 MG PO ×3 (08:23→20:43)
--- NOTE | 2023-11-04 15:12 | HO.PSYCHPN ---
Subjective Subjective Date of Service: 11/04/23 Reason For Visit: F32.9 Subjective Notes: Conditional Voluntary Interim History: The nursing staff reported the patient had been compliant with treatment he states most of the time on his room engageable. The social welfare administrator reported that his waiting for placement. On interview the patient denies new symptoms, waiting for placement. Mental Status Exam Mental Status Exam Patient Appearance: Appropriate Patient Orientation: Person and Situation Level of Consciousness: Awake and Appropriate Patient Behavior: Guarded and Passive Mood Description: Withdrawn Affect Description: Constricted Patient Cognition Impaired: Yes Ability to Follow Directions: Good Speech Pattern: Clear Hallucinations: None Delusions: Not Present Thought Process: Distracted and Slowed Thinking Thought Content: positive for [place] and positive for Poverty of Content Judgement: Fair Diagnostics Vital Signs (24Hr): Vital Signs - 24 hr 11/03/23 20:00 11/04/23 08:00 11/04/23 08:22 Temperature 96.7 F L 97.5 F Pulse Rate 84 87 Respiratory Rate 16 18 Blood Pressure 115/63 107/66 107/66 Pulse Oximetry 96 95 Oxygen Delivery Method Room Air Room Air BMI result Body Mass Index 17.9 Medications Medications Current Medications Acetaminophen (Acetaminophen 325 Mg Tablet) 650 mg PO Q6H PRN PRN Reason: Pain (Scale Score 1-3) Al Hydroxide/Mg Hydroxide (Magnesium Hydrox/Alum Hydrox 30 Ml Oral.Susp) 30 ml PO Q6H PRN PRN Reason: Heartburn/Nausea Albuterol Sulfate (Albuterol Sulfate 90 Mcg 8 Gm Inhaler) 2 puff INHALE RQ4H PRN PRN Reason: Wheezing Amlodipine Besylate (Amlodipine Besylate 5 Mg Tablet) 5 mg PO DAILY [facility]; Protocol Last Admin: 11/04/23 08:22 Dose: 5 mg Divalproex Sodium (Divalproex Sodium Sprinkles 125 Mg ) 250 mg PO TID [facility] Last Admin: 11/04/23 08:23 Dose: 250 mg Emtricitabine/Tenofovir (Emtricitabin/Tenofovir 200/300 Tablet) 1 tab PO DAILY [facility] Last Admin: 11/04/23 08:23 Dose: 1 tab Haloperidol (Haloperidol 5 Mg Tablet) 5 mg PO TID [facility] Last Admin: 11/04/23 08:22 Dose: 5 mg Haloperidol Decanoate (Haloperidol Decanoate 50 Mg/Ml Vial) 100 mg IM Q28D [facility] Last Admin: 10/28/23 22:18 Dose: 100 mg Levetiracetam (Levetiracetam 500 Mg Tablet) 500 mg PO BID [facility] Last Admin: 11/04/23 08:22 Dose: 500 mg Magnesium Hydroxide (Milk Of Magnesia 30 Ml Oral.Susp) 30 ml PO DAILY PRN PRN Reason: Constipation Mirtazapine (Mirtazapine 15 Mg Tablet) 15 mg PO BEDTIME [facility] Last Admin: 11/03/23 20:39 Dose: 15 mg Multivitamins/Vitamin C (Multivitamin Tablet) 1 tab PO BEDTIME [facility] Last Admin: 11/03/23 20:41 Dose: 1 tab Nicotine Polacrilex (Nicotine Polacrilex 2 Mg Gum) 4 mg BUCCAL Q2H PRN PRN Reason: Nicotine Cravings Olanzapine (Olanzapine 5 Mg Tablet) 5 mg PO BID@0800,1500 [facility] Last Admin: 11/04/23 08:22 Dose: 5 mg Olanzapine (Olanzapine 10 Mg Vial) 10 mg IM BEDTIME PRN PRN Reason: if refuses bedtime PO zyprexa Olanzapine (Olanzapine 10 Mg Vial) 5 mg IM BID@0800,1500 PRN PRN Reason: if refuses 0800/1500 PO zyprexa Last Admin: 10/13/23 14:58 Dose: 5 mg Olanzapine (Olanzapine 10 Mg Tablet) 20 mg PO BEDTIME [facility] Last Admin: 11/03/23 20:39 Dose: 20 mg Polyethylene Glycol (Polyethylene Glycol 3350 17 Gm Powd.Pack) 17 gm PO DAILY PRN PRN Reason: Constipation Rilpivirine (Rilpivirine Hcl 25 Mg Tablet) 25 mg PO DAILY [facility] Last Admin: 11/04/23 08:23 Dose: 25 mg Thiamine HCl (Thiamine Hcl 100 Mg Tablet) 100 mg PO DAILY [facility] Last Admin: 11/04/23 08:22 Dose: 100 mg Trazodone HCl (Trazodone Hcl 50 Mg Tablet) 50 mg PO BEDTIME MRX1 PRN PRN Reason: Insomnia Last Admin: 11/03/23 20:39 Dose: 50 mg Allergies Allergies Allergy/AdvReac Type Severity Reaction Status Date / Time No Known Allergies Allergy Unverified 01/28/20 16:07 [No Known Allergies*] Assessment & Plan Assessment & Plan (1) Schizoaffective disorder, bipolar type: Status: Acute Code(s): F25.0 - Schizoaffective disorder, bipolar type Assessment and Plan: 11/01 mildly up - positive mood=- but less irritable than in past visits 11/02 CTP (2) Dementia: Status: Acute Code(s): F03.90 - Unspecified dementia, unspecified severity, without behavioral disturbance, psychotic disturbance, mood disturbance, and anxiety Assessment and Plan: 11/01 ongoing dementia continue with reorientation and distraction prn - (3) Noncompliance: Status: Acute Code(s): Z91.199 - Patient's noncompliance with other medical treatment and regimen due to unspecified reason Assessment and Plan: seems to be taking medication currently - watches nurse crush them and put in ice cream Plan The patient is an elderly male with a past history of schizoaffective disorder, dementia, HIV and other medical problems, chronically mentally ill resident of assisted living facility referred to this facility after he became non compliant with medications with daniella and psychosis. The patient was assessed by crisis and transferring to this facility for psychiatric stabilization. At the moment of the interview the patient was able to contract for safety. Plan 1. Gather collateral information. 2. Continue with regular medications, we are not going to change his Depakote, olanzapine and Haldol Decanoate. 3. Reassessment with results. 4. 15 minutes checks since the patient is able to contract for safety. 5. Change Zyprexa to Zydis to avoid cheeking on October 02. 6. IM zyprexa ordered 10 mg t.i.d. p.r.n. refusal of p.o. as per court order. Total dose up to 30 mg a day. 7. Zyprexa increased up to 15 mg p.o. q.h.s. to target daniella and psychosis. Started on October 15. Zyprexa was increased up to 20 mg p.o. q.h.s. on October 17. 8. Increase Haldol up to 5 mg p.o. t.i.d. on October 22 and keep Haldol Decanoate as per court order. 9. Medical certificate issued. Reason for continued inpatient stay Substantial Risk for: inability to function, rapid decompensation and med/psych decompensation Time Spent With Patient Time: Total time managing care of this patient today __20__ minutes.
--- NOTE | 2023-11-04 15:14 | HO.PSYCHPN ---
Subjective Subjective Date of Service: 11/05/23 Reason For Visit: F32.9 Subjective Notes: Conditional Voluntary Interim History: The nursing staff reported the patient had been compliant with treatment pleasant cooperative less agitated. At baseline. On interview the patient denies new symptoms. Waiting for placement. Mental Status Exam Mental Status Exam Patient Appearance: Appropriate Patient Orientation: Person and Situation Level of Consciousness: Awake and Appropriate Patient Behavior: Guarded and Passive Mood Description: Withdrawn Affect Description: Constricted Patient Cognition Impaired: Yes Ability to Follow Directions: Good Speech Pattern: Clear Hallucinations: None Delusions: Not Present Thought Process: Distracted and Slowed Thinking Thought Content: positive for [place] and positive for Poverty of Content Judgement: Fair Diagnostics Vital Signs (24Hr): Vital Signs - 24 hr 11/03/23 20:00 11/04/23 08:00 11/04/23 08:22 Temperature 96.7 F L 97.5 F Pulse Rate 84 87 Respiratory Rate 16 18 Blood Pressure 115/63 107/66 107/66 Pulse Oximetry 96 95 Oxygen Delivery Method Room Air Room Air BMI result Body Mass Index 17.9 Medications Medications Current Medications Acetaminophen (Acetaminophen 325 Mg Tablet) 650 mg PO Q6H PRN PRN Reason: Pain (Scale Score 1-3) Al Hydroxide/Mg Hydroxide (Magnesium Hydrox/Alum Hydrox 30 Ml Oral.Susp) 30 ml PO Q6H PRN PRN Reason: Heartburn/Nausea Albuterol Sulfate (Albuterol Sulfate 90 Mcg 8 Gm Inhaler) 2 puff INHALE RQ4H PRN PRN Reason: Wheezing Amlodipine Besylate (Amlodipine Besylate 5 Mg Tablet) [address] [facility]; Protocol Last Admin: 11/04/23 08:22 Dose: 5 mg Divalproex Sodium (Divalproex Sodium Sprinkles 125 Mg ) [address] [facility] Last Admin: 11/04/23 15:09 Dose: 250 mg Emtricitabine/Tenofovir (Emtricitabin/Tenofovir 200/300 Tablet) [address] [facility] Last Admin: 11/04/23 08:23 Dose: 1 tab Haloperidol (Haloperidol 5 Mg Tablet) [address] [facility] Last Admin: 11/04/23 15:09 Dose: 5 mg Haloperidol Decanoate (Haloperidol Decanoate 50 Mg/Ml Vial) [address] [facility] Last Admin: 10/28/23 22:18 Dose: 100 mg Levetiracetam (Levetiracetam 500 Mg Tablet) [address] [facility] Last Admin: 11/04/23 08:22 Dose: 500 mg Magnesium Hydroxide (Milk Of Magnesia 30 Ml Oral.Susp) 30 ml PO DAILY PRN PRN Reason: Constipation Mirtazapine (Mirtazapine 15 Mg Tablet) [address] [facility] Last Admin: 11/03/23 20:39 Dose: 15 mg Multivitamins/Vitamin C (Multivitamin Tablet) 1 tab PO BEDTIME [facility] Last Admin: 11/03/23 20:41 Dose: 1 tab Nicotine Polacrilex (Nicotine Polacrilex 2 Mg Gum) 4 mg BUCCAL Q2H PRN PRN Reason: Nicotine Cravings Olanzapine (Olanzapine 5 Mg Tablet) 5 mg PO BID@0800,1500 [facility] Last Admin: 11/04/23 15:09 Dose: 5 mg Olanzapine (Olanzapine 10 Mg Vial) 10 mg IM BEDTIME PRN PRN Reason: if refuses bedtime PO zyprexa Olanzapine (Olanzapine 10 Mg Vial) 5 mg IM BID@0800,1500 PRN PRN Reason: if refuses 0800/1500 PO zyprexa Last Admin: 10/13/23 14:58 Dose: 5 mg Olanzapine (Olanzapine 10 Mg Tablet) [address] [facility] Last Admin: 11/03/23 20:39 Dose: 20 mg Polyethylene Glycol (Polyethylene Glycol 3350 17 Gm Powd.Pack) 17 gm PO DAILY PRN PRN Reason: Constipation Rilpivirine (Rilpivirine Hcl 25 Mg Tablet) [address] [facility] Last Admin: 11/04/23 08:23 Dose: 25 mg Thiamine HCl (Thiamine Hcl 100 Mg Tablet) [address] [facility] Last Admin: 11/04/23 08:22 Dose: 100 mg Trazodone HCl (Trazodone Hcl 50 Mg Tablet) 50 mg PO BEDTIME MRX1 PRN PRN Reason: Insomnia Last Admin: 11/03/23 20:39 Dose: 50 mg Allergies Allergies Allergy/AdvReac Type Severity Reaction Status Date / Time No Known Allergies Allergy Unverified 01/28/20 16:07 [No Known Allergies*] Assessment & Plan Assessment & Plan (1) Schizoaffective disorder, bipolar type: Status: Acute Code(s): F25.0 - Schizoaffective disorder, bipolar type Assessment and Plan: 11/01 mildly up - positive mood=- but less irritable than in past visits 11/02 CTP (2) Dementia: Status: Acute Code(s): F03.90 - Unspecified dementia, unspecified severity, without behavioral disturbance, psychotic disturbance, mood disturbance, and anxiety Assessment and Plan: 11/01 ongoing dementia continue with reorientation and distraction prn - (3) Noncompliance: Status: Acute Code(s): Z91.199 - Patient's noncompliance with other medical treatment and regimen due to unspecified reason Assessment and Plan: seems to be taking medication currently - watches nurse crush them and put in ice cream Plan The patient is an elderly male with a past history of schizoaffective disorder, dementia, HIV and other medical problems, chronically mentally ill resident of assisted living facility referred to this facility after he became non compliant with medications with daniella and psychosis. The patient was assessed by crisis and transferring to this facility for psychiatric stabilization. At the moment of the interview the patient was able to contract for safety. Plan 1. Gather collateral information. 2. Continue with regular medications, we are not going to change his Depakote, olanzapine and Haldol Decanoate. 3. Reassessment with results. 4. 15 minutes checks since the patient is able to contract for safety. 5. Change Zyprexa to Zydis to avoid cheeking on October 02. 6. IM zyprexa ordered 10 mg t.i.d. p.r.n. refusal of p.o. as per court order. Total dose up to 30 mg a day. 7. Zyprexa increased up to 15 mg p.o. q.h.s. to target daniella and psychosis. Started on October 15. Zyprexa was increased up to 20 mg p.o. q.h.s. on October 17. 8. Increase Haldol up to 5 mg p.o. t.i.d. on October 22 and keep Haldol Decanoate as per court order. 9. Medical certificate issued. Reason for continued inpatient stay Substantial Risk for: inability to function, rapid decompensation and med/psych decompensation Time Spent With Patient Time: Total time managing care of this patient today _20___ minutes.
[2023-11-04 20:00] VITALS: RESP 18
[2023-11-04] MEDS: traZODone HCL 50 MG TABLET PO (20:43)
[2023-11-04] MEDS: Multivitamin TABLET 1 TAB PO (20:43)
[2023-11-04] MEDS: OLANZapine 10 MG TABLET 20 MG PO (20:43)
[2023-11-04] MEDS: Mirtazapine 15 MG TABLET PO (20:43)
[2023-11-05] MEDS: Divalproex Sodium Sprinkles 125 MG CAP.DR.SPR 250 MG PO ×3 (08:07→20:53)
[2023-11-05] MEDS: Emtricitabin/Tenofovir 200/300 TABLET 1 TAB PO (08:08)
[2023-11-05] MEDS: Thiamine HCL 100 MG TABLET PO (08:08)
[2023-11-05] MEDS: HaloperidoL 5 MG TABLET PO ×3 (08:08→20:52)
[2023-11-05] MEDS: levETIRAcetam 500 MG TABLET PO ×2 (08:08→20:53)
[2023-11-05] MEDS: Rilpivirine HCL 25 MG TABLET PO (08:08)
[2023-11-05] MEDS: OLANZapine 5 MG TABLET PO ×2 (08:09→15:14)
[2023-11-05 08:15] VITALS: BP 133/89; PULSE 86; RESP 16; TEMP 36.7; O2SAT 97
[2023-11-05 08:17] VITALS: BP 133/89
[2023-11-05] MEDS: amLODIPine Besylate 5 MG TABLET PO (08:17)
[2023-11-05 20:00] VITALS: BP 99/57; PULSE 88; TEMP 36.6; O2SAT 96
[2023-11-05] MEDS: traZODone HCL 50 MG TABLET PO (20:52)
[2023-11-05] MEDS: Multivitamin TABLET 1 TAB PO (20:53)
[2023-11-05] MEDS: OLANZapine 10 MG TABLET 20 MG PO (20:53)
[2023-11-05] MEDS: Mirtazapine 15 MG TABLET PO (20:53)
[2023-11-06 08:04] VITALS: BP 103/69; PULSE 82; RESP 18; TEMP 36.1; O2SAT 99
[2023-11-06] MEDS: Divalproex Sodium Sprinkles 125 MG CAP.DR.SPR 250 MG PO ×3 (09:12→21:18)
[2023-11-06] MEDS: HaloperidoL 5 MG TABLET PO ×3 (09:12→21:17)
[2023-11-06] MEDS: Emtricitabin/Tenofovir 200/300 TABLET 1 TAB PO (09:12)
[2023-11-06] MEDS: levETIRAcetam 500 MG TABLET PO ×2 (09:12→21:17)
[2023-11-06] MEDS: Rilpivirine HCL 25 MG TABLET PO (09:12)
[2023-11-06 09:13] VITALS: BP 103/69
[2023-11-06] MEDS: amLODIPine Besylate 5 MG TABLET PO (09:13)
[2023-11-06] MEDS: OLANZapine 5 MG TABLET PO ×2 (09:13→14:19)
[2023-11-06] MEDS: Thiamine HCL 100 MG TABLET PO (09:13)
--- NOTE | 2023-11-06 11:44 | MHC.CLN ---
F/U DIET=REGULAR. ENSURE TID TO INCREASE KCALS/NUTRITION. SUPPLEMENT PROVIDES 1050 KCALS, 60 G PROTEIN. INTAKE USUALLY >50 AT MEALS. WILL DRINK AND ACCEPTS ENSURE SUPPLEMENT. FAVORABLE, SIGNIFICANT WEIGHT GAIN SINCE ADMISSION, +8%. PROVIDE ADDITIONAL SNACKS/SUPPLEMENTS FROM UNIT KITCHEN DESIRED. FOLLOW FOR INTAKE OF MEALS AND SUPPLEMENT. RD TO FOLLOW UP WEEKLY.
--- NOTE | 2023-11-06 12:37 | HO.PSYCHPN ---
Subjective Subjective Date of Service: 11/06/23 Reason For Visit: F32.9 Subjective Notes: [place] Order and Conditional Voluntary Interim History: The nursing staff reported the patient had been compliant with treatment, he took a shower yesterday he is doing very well. On interview the patient denies new symptoms pleasant cooperative chronically psychotic but easily redirectable. Waiting for placement. Mental Status Exam Mental Status Exam Patient Appearance: Appropriate Patient Orientation: Person and Situation Level of Consciousness: Awake and Appropriate Patient Behavior: Guarded and Passive Mood Description: Withdrawn Affect Description: Constricted Patient Cognition Impaired: Yes Ability to Follow Directions: Good Speech Pattern: Clear Hallucinations: None Delusions: Not Present Thought Process: Distracted and Slowed Thinking Thought Content: positive for [place] and positive for Poverty of Content Judgement: Fair Diagnostics Vital Signs (24Hr): Vital Signs - 24 hr 11/05/23 20:00 11/06/23 08:04 11/06/23 09:13 Temperature 97.8 F 96.9 F Pulse Rate 88 82 Respiratory Rate 18 Blood Pressure 99/57 L 103/69 103/69 Pulse Oximetry 96 99 Oxygen Delivery Method Room Air Room Air BMI result Body Mass Index 17.9 Medications Medications Current Medications Acetaminophen (Acetaminophen 325 Mg Tablet) 650 mg PO Q6H PRN PRN Reason: Pain (Scale Score 1-3) Al Hydroxide/Mg Hydroxide (Magnesium Hydrox/Alum Hydrox 30 Ml Oral.Susp) 30 ml PO Q6H PRN PRN Reason: Heartburn/Nausea Albuterol Sulfate (Albuterol Sulfate 90 Mcg 8 Gm Inhaler) 2 puff INHALE RQ4H PRN PRN Reason: Wheezing Amlodipine Besylate (Amlodipine Besylate 5 Mg Tablet) 5 mg PO DAILY [facility]; Protocol Last Admin: 11/06/23 09:13 Dose: 5 mg Divalproex Sodium (Divalproex Sodium Sprinkles 125 Mg ) 250 mg PO TID [facility] Last Admin: 11/06/23 09:12 Dose: 250 mg Emtricitabine/Tenofovir (Emtricitabin/Tenofovir 200/300 Tablet) 1 tab PO DAILY [facility] Last Admin: 11/06/23 09:12 Dose: 1 tab Haloperidol (Haloperidol 5 Mg Tablet) 5 mg PO TID [facility] Last Admin: 11/06/23 09:12 Dose: 5 mg Haloperidol Decanoate (Haloperidol Decanoate 50 Mg/Ml Vial) 100 mg IM Q28D [facility] Last Admin: 10/28/23 22:18 Dose: 100 mg Levetiracetam (Levetiracetam 500 Mg Tablet) 500 mg PO BID [facility] Last Admin: 11/06/23 09:12 Dose: 500 mg Magnesium Hydroxide (Milk Of Magnesia 30 Ml Oral.Susp) 30 ml PO DAILY PRN PRN Reason: Constipation Mirtazapine (Mirtazapine 15 Mg Tablet) 15 mg PO BEDTIME [facility] Last Admin: 11/05/23 20:53 Dose: 15 mg Multivitamins/Vitamin C (Multivitamin Tablet) 1 tab PO BEDTIME [facility] Last Admin: 11/05/23 20:53 Dose: 1 tab Nicotine Polacrilex (Nicotine Polacrilex 2 Mg Gum) 4 mg BUCCAL Q2H PRN PRN Reason: Nicotine Cravings Olanzapine (Olanzapine 5 Mg Tablet) 5 mg PO BID@0800,1500 [facility] Last Admin: 11/06/23 09:13 Dose: 5 mg Olanzapine (Olanzapine 10 Mg Vial) 10 mg IM BEDTIME PRN PRN Reason: if refuses bedtime PO zyprexa Olanzapine (Olanzapine 10 Mg Vial) 5 mg IM BID@0800,1500 PRN PRN Reason: if refuses 0800/1500 PO zyprexa Last Admin: 10/13/23 14:58 Dose: 5 mg Olanzapine (Olanzapine 10 Mg Tablet) 20 mg PO BEDTIME [facility] Last Admin: 11/05/23 20:53 Dose: 20 mg Polyethylene Glycol (Polyethylene Glycol 3350 17 Gm Powd.Pack) 17 gm PO DAILY PRN PRN Reason: Constipation Rilpivirine (Rilpivirine Hcl 25 Mg Tablet) 25 mg PO DAILY [facility] Last Admin: 11/06/23 09:12 Dose: 25 mg Thiamine HCl (Thiamine Hcl 100 Mg Tablet) 100 mg PO DAILY [facility] Last Admin: 11/06/23 09:13 Dose: 100 mg Trazodone HCl (Trazodone Hcl 50 Mg Tablet) 50 mg PO BEDTIME MRX1 PRN PRN Reason: Insomnia Last Admin: 11/05/23 20:52 Dose: 50 mg Allergies Allergies Allergy/AdvReac Type Severity Reaction Status Date / Time No Known Allergies Allergy Unverified 01/28/20 16:07 [No Known Allergies*] Assessment & Plan Assessment & Plan (1) Schizoaffective disorder, bipolar type: Status: Acute Code(s): F25.0 - Schizoaffective disorder, bipolar type Assessment and Plan: 11/01 mildly up - positive mood=- but less irritable than in past visits 11/02 CTP (2) Dementia: Status: Acute Code(s): F03.90 - Unspecified dementia, unspecified severity, without behavioral disturbance, psychotic disturbance, mood disturbance, and anxiety Assessment and Plan: 11/01 ongoing dementia continue with reorientation and distraction prn - (3) Noncompliance: Status: Acute Code(s): Z91.199 - Patient's noncompliance with other medical treatment and regimen due to unspecified reason Assessment and Plan: seems to be taking medication currently - watches nurse crush them and put in ice cream Plan The patient is an elderly male with a past history of schizoaffective disorder, dementia, HIV and other medical problems, chronically mentally ill resident of assisted living facility referred to this facility after he became non compliant with medications with daniella and psychosis. The patient was assessed by crisis and transferring to this facility for psychiatric stabilization. At the moment of the interview the patient was able to contract for safety. Plan 1. Gather collateral information. 2. Continue with regular medications, we are not going to change his Depakote, olanzapine and Haldol Decanoate. 3. Reassessment with results. 4. 15 minutes checks since the patient is able to contract for safety. 5. Change Zyprexa to Zydis to avoid cheeking on October 02. 6. IM zyprexa ordered 10 mg t.i.d. p.r.n. refusal of p.o. as per court order. Total dose up to 30 mg a day. 7. Zyprexa increased up to 15 mg p.o. q.h.s. to target daniella and psychosis. Started on October 15. Zyprexa was increased up to 20 mg p.o. q.h.s. on October 17. 8. Increase Haldol up to 5 mg p.o. t.i.d. on October 22 and keep Haldol Decanoate as per court order. 9. Medical certificate issued. Reason for continued inpatient stay Substantial Risk for: inability to function, rapid decompensation and med/psych decompensation Time Spent With Patient Time: Total time managing care of this patient today __20 __ minutes.
[2023-11-06 20:00] VITALS: BP 100/65; PULSE 84; RESP 19; TEMP 36.2; O2SAT 92
[2023-11-06] MEDS: Mirtazapine 15 MG TABLET PO (21:17)
[2023-11-06] MEDS: OLANZapine 10 MG TABLET 20 MG PO (21:17)
[2023-11-06] MEDS: Multivitamin TABLET 1 TAB PO (21:17)
[2023-11-07 07:00] VITALS: BMI 18.5
[2023-11-07 08:58] VITALS: BP 99/58; PULSE 73; RESP 17; TEMP 36.2; O2SAT 93
[2023-11-07] MEDS: Emtricitabin/Tenofovir 200/300 TABLET 1 TAB PO (09:06)
[2023-11-07] MEDS: Thiamine HCL 100 MG TABLET PO (09:06)
[2023-11-07] MEDS: levETIRAcetam 500 MG TABLET PO ×2 (09:06→20:58)
[2023-11-07 09:07] VITALS: BP 99/58
[2023-11-07] MEDS: HaloperidoL 5 MG TABLET PO ×3 (09:07→20:58)
[2023-11-07] MEDS: Rilpivirine HCL 25 MG TABLET PO (09:07)
[2023-11-07] MEDS: Divalproex Sodium Sprinkles 125 MG CAP.DR.SPR 250 MG PO ×3 (09:07→20:58)
[2023-11-07] MEDS: amLODIPine Besylate 5 MG TABLET PO (09:07)
[2023-11-07] MEDS: OLANZapine 5 MG TABLET PO ×2 (09:08→14:03)
--- NOTE | 2023-11-07 12:57 | HO.PSYCHPN ---
Subjective Subjective Date of Service: 11/07/23 Reason For Visit: F32.9 Subjective Notes: [place] Order and Conditional Voluntary Interim History: The nursing staff reported the patient had been pleasant easily redirectable confused at times with a brighter affect. Fully compliant with treatment. The social worker delinquency prevention reported there had been referred to several [facility] facilities. On interview the patient denies new symptoms, waiting for placement. Mental Status Exam Mental Status Exam Patient Appearance: Appropriate Patient Orientation: Person and Situation Level of Consciousness: Awake and Appropriate Patient Behavior: Guarded and Passive Mood Description: Withdrawn Affect Description: Constricted Patient Cognition Impaired: Yes Ability to Follow Directions: Good Speech Pattern: Clear Hallucinations: None Delusions: Not Present Thought Process: Distracted and Slowed Thinking Thought Content: positive for [place] and positive for Poverty of Content Judgement: Poor Diagnostics Vital Signs (24Hr): Vital Signs - 24 hr 11/06/23 20:00 11/07/23 08:58 11/07/23 09:07 Temperature 97.2 F 97.2 F Pulse Rate 84 73 Respiratory Rate 19 17 Blood Pressure 100/65 99/58 L 99/58 L Pulse Oximetry 92 93 Oxygen Delivery Method Room Air Room Air BMI result Body Mass Index 17.9 Medications Medications Current Medications Acetaminophen (Acetaminophen 325 Mg Tablet) 650 mg PO Q6H PRN PRN Reason: Pain (Scale Score 1-3) Al Hydroxide/Mg Hydroxide (Magnesium Hydrox/Alum Hydrox 30 Ml Oral.Susp) 30 ml PO Q6H PRN PRN Reason: Heartburn/Nausea Albuterol Sulfate (Albuterol Sulfate 90 Mcg 8 Gm Inhaler) 2 puff INHALE RQ4H PRN PRN Reason: Wheezing Amlodipine Besylate (Amlodipine Besylate 5 Mg Tablet) 5 mg PO DAILY [facility]; Protocol Last Admin: 11/07/23 09:07 Dose: 5 mg Divalproex Sodium (Divalproex Sodium Sprinkles 125 Mg ) 250 mg PO TID [facility] Last Admin: 11/07/23 09:07 Dose: 250 mg Emtricitabine/Tenofovir (Emtricitabin/Tenofovir 200/300 Tablet) 1 tab PO DAILY [facility] Last Admin: 11/07/23 09:06 Dose: 1 tab Haloperidol (Haloperidol 5 Mg Tablet) 5 mg PO TID [facility] Last Admin: 11/07/23 09:07 Dose: 5 mg Haloperidol Decanoate (Haloperidol Decanoate 50 Mg/Ml Vial) 100 mg IM Q28D [facility] Last Admin: 10/28/23 22:18 Dose: 100 mg Levetiracetam (Levetiracetam 500 Mg Tablet) 500 mg PO BID [facility] Last Admin: 11/07/23 09:06 Dose: 500 mg Magnesium Hydroxide (Milk Of Magnesia 30 Ml Oral.Susp) 30 ml PO DAILY PRN PRN Reason: Constipation Mirtazapine (Mirtazapine 15 Mg Tablet) 15 mg PO BEDTIME [facility] Last Admin: 11/06/23 21:17 Dose: 15 mg Multivitamins/Vitamin C (Multivitamin Tablet) 1 tab PO BEDTIME [facility] Last Admin: 11/06/23 21:17 Dose: 1 tab Nicotine Polacrilex (Nicotine Polacrilex 2 Mg Gum) 4 mg BUCCAL Q2H PRN PRN Reason: Nicotine Cravings Olanzapine (Olanzapine 5 Mg Tablet) 5 mg PO BID@0800,1500 [facility] Last Admin: 11/07/23 09:08 Dose: 5 mg Olanzapine (Olanzapine 10 Mg Vial) 10 mg IM BEDTIME PRN PRN Reason: if refuses bedtime PO zyprexa Olanzapine (Olanzapine 10 Mg Vial) 5 mg IM BID@0800,1500 PRN PRN Reason: if refuses 0800/1500 PO zyprexa Last Admin: 10/13/23 14:58 Dose: 5 mg Olanzapine (Olanzapine 10 Mg Tablet) 20 mg PO BEDTIME [facility] Last Admin: 11/06/23 21:17 Dose: 20 mg Polyethylene Glycol (Polyethylene Glycol 3350 17 Gm Powd.Pack) 17 gm PO DAILY PRN PRN Reason: Constipation Rilpivirine (Rilpivirine Hcl 25 Mg Tablet) 25 mg PO DAILY [facility] Last Admin: 11/07/23 09:07 Dose: 25 mg Thiamine HCl (Thiamine Hcl 100 Mg Tablet) 100 mg PO DAILY [facility] Last Admin: 11/07/23 09:06 Dose: 100 mg Trazodone HCl (Trazodone Hcl 50 Mg Tablet) 50 mg PO BEDTIME MRX1 PRN PRN Reason: Insomnia Last Admin: 11/05/23 20:52 Dose: 50 mg Allergies Allergies Allergy/AdvReac Type Severity Reaction Status Date / Time No Known Allergies Allergy Unverified 01/28/20 16:07 [No Known Allergies*] Assessment & Plan Assessment & Plan (1) Schizoaffective disorder, bipolar type: Status: Acute Code(s): F25.0 - Schizoaffective disorder, bipolar type Assessment and Plan: 11/01 mildly up - positive mood=- but less irritable than in past visits 11/02 CTP (2) Dementia: Status: Acute Code(s): F03.90 - Unspecified dementia, unspecified severity, without behavioral disturbance, psychotic disturbance, mood disturbance, and anxiety Assessment and Plan: 11/01 ongoing dementia continue with reorientation and distraction prn - (3) Noncompliance: Status: Acute Code(s): Z91.199 - Patient's noncompliance with other medical treatment and regimen due to unspecified reason Assessment and Plan: seems to be taking medication currently - watches nurse crush them and put in ice cream Plan The patient is an elderly male with a past history of schizoaffective disorder, dementia, HIV and other medical problems, chronically mentally ill resident of assisted living facility referred to this facility after he became non compliant with medications with daniella and psychosis. The patient was assessed by crisis and transferring to this facility for psychiatric stabilization. At the moment of the interview the patient was able to contract for safety. Plan 1. Gather collateral information. 2. Continue with regular medications, we are not going to change his Depakote, olanzapine and Haldol Decanoate. 3. Reassessment with results. 4. 15 minutes checks since the patient is able to contract for safety. 5. Change Zyprexa to Zydis to avoid cheeking on October 02. 6. IM zyprexa ordered 10 mg t.i.d. p.r.n. refusal of p.o. as per court order. Total dose up to 30 mg a day. 7. Zyprexa increased up to 15 mg p.o. q.h.s. to target daniella and psychosis. Started on October 15. Zyprexa was increased up to 20 mg p.o. q.h.s. on October 17. 8. Increase Haldol up to 5 mg p.o. t.i.d. on October 22 and keep Haldol Decanoate as per court order. 9. Medical certificate issued. Reason for continued inpatient stay Substantial Risk for: inability to function, rapid decompensation and med/psych decompensation Time Spent With Patient Time: Total time managing care of this patient today __20__ minutes.
[2023-11-07 20:00] VITALS: BP 104/69; PULSE 84; RESP 18; TEMP 36.7; O2SAT 92
[2023-11-07] MEDS: Mirtazapine 15 MG TABLET PO (20:58)
[2023-11-07] MEDS: Multivitamin TABLET 1 TAB PO (20:59)
[2023-11-07] MEDS: OLANZapine 10 MG TABLET 20 MG PO (20:59)
[2023-11-08 08:00] VITALS: BP 113/67; PULSE 94; RESP 18; TEMP 36.3; O2SAT 97
[2023-11-08] MEDS: amLODIPine Besylate 5 MG TABLET PO (09:09)
[2023-11-08] MEDS: Emtricitabin/Tenofovir 200/300 TABLET 1 TAB PO (09:09)
[2023-11-08] MEDS: Divalproex Sodium Sprinkles 125 MG CAP.DR.SPR 250 MG PO ×3 (09:09→20:47)
[2023-11-08] MEDS: Thiamine HCL 100 MG TABLET PO (09:10)
[2023-11-08] MEDS: Rilpivirine HCL 25 MG TABLET PO (09:10)
[2023-11-08] MEDS: HaloperidoL 5 MG TABLET PO ×3 (09:10→20:47)
[2023-11-08] MEDS: levETIRAcetam 500 MG TABLET PO ×2 (09:10→20:47)
[2023-11-08] MEDS: OLANZapine 5 MG TABLET PO ×2 (09:10→16:17)
--- NOTE | 2023-11-08 13:02 | HO.PSYCHPN ---
Subjective Subjective Date of Service: 11/08/23 Reason For Visit: F32.9 Subjective Notes: Conditional Voluntary Interim History: The nursing staff reported the patient had been isolative most of the time in his bed cooperative fully compliant with treatment. On interview the patient denies new symptoms. The high school social studies tutor as for paperwork for court. We are going to file the affidavit Mental Status Exam Mental Status Exam Patient Appearance: Appropriate and Unkempt Patient Orientation: Person and Situation Level of Consciousness: Awake Patient Behavior: Guarded and Passive Mood Description: Withdrawn Affect Description: Constricted Patient Cognition Impaired: Yes Ability to Follow Directions: Good Speech Pattern: Clear Hallucinations: None Delusions: Ideas of Reference Thought Process: Distracted and Slowed Thinking Thought Content: positive for [place] and positive for Poverty of Content Judgement: Poor Diagnostics Vital Signs (24Hr): Vital Signs - 24 hr 11/07/23 20:00 11/08/23 08:00 Temperature 98.1 F 97.4 F Pulse Rate 84 94 Respiratory Rate 18 18 Blood Pressure 104/69 113/67 Pulse Oximetry 92 97 Oxygen Delivery Method Room Air Room Air BMI result Body Mass Index 18.5 Medications Medications Current Medications Acetaminophen (Acetaminophen 325 Mg Tablet) 650 mg PO Q6H PRN PRN Reason: Pain (Scale Score 1-3) Al Hydroxide/Mg Hydroxide (Magnesium Hydrox/Alum Hydrox 30 Ml Oral.Susp) 30 ml PO Q6H PRN PRN Reason: Heartburn/Nausea Albuterol Sulfate (Albuterol Sulfate 90 Mcg 8 Gm Inhaler) 2 puff INHALE RQ4H PRN PRN Reason: Wheezing Amlodipine Besylate (Amlodipine Besylate 5 Mg Tablet) 5 mg PO DAILY [facility]; Protocol Last Admin: 11/08/23 09:09 Dose: 5 mg Divalproex Sodium (Divalproex Sodium Sprinkles 125 Mg ) 250 mg PO TID [facility] Last Admin: 11/08/23 09:09 Dose: 250 mg Emtricitabine/Tenofovir (Emtricitabin/Tenofovir 200/300 Tablet) 1 tab PO DAILY [facility] Last Admin: 11/08/23 09:09 Dose: 1 tab Haloperidol (Haloperidol 5 Mg Tablet) 5 mg PO TID [facility] Last Admin: 11/08/23 09:10 Dose: 5 mg Haloperidol Decanoate (Haloperidol Decanoate 50 Mg/Ml Vial) 100 mg IM Q28D [facility] Last Admin: 10/28/23 22:18 Dose: 100 mg Levetiracetam (Levetiracetam 500 Mg Tablet) 500 mg PO BID [facility] Last Admin: 11/08/23 09:10 Dose: 500 mg Magnesium Hydroxide (Milk Of Magnesia 30 Ml Oral.Susp) 30 ml PO DAILY PRN PRN Reason: Constipation Mirtazapine (Mirtazapine 15 Mg Tablet) 15 mg PO BEDTIME [facility] Last Admin: 11/07/23 20:58 Dose: 15 mg Multivitamins/Vitamin C (Multivitamin Tablet) 1 tab PO BEDTIME [facility] Last Admin: 11/07/23 20:59 Dose: 1 tab Nicotine Polacrilex (Nicotine Polacrilex 2 Mg Gum) 4 mg BUCCAL Q2H PRN PRN Reason: Nicotine Cravings Olanzapine (Olanzapine 5 Mg Tablet) 5 mg PO BID@0800,1500 [facility] Last Admin: 11/08/23 09:10 Dose: 5 mg Olanzapine (Olanzapine 10 Mg Vial) 10 mg IM BEDTIME PRN PRN Reason: if refuses bedtime PO zyprexa Olanzapine (Olanzapine 10 Mg Vial) 5 mg IM BID@0800,1500 PRN PRN Reason: if refuses 0800/1500 PO zyprexa Last Admin: 10/13/23 14:58 Dose: 5 mg Olanzapine (Olanzapine 10 Mg Tablet) 20 mg PO BEDTIME [facility] Last Admin: 11/07/23 20:59 Dose: 20 mg Polyethylene Glycol (Polyethylene Glycol 3350 17 Gm Powd.Pack) 17 gm PO DAILY PRN PRN Reason: Constipation Rilpivirine (Rilpivirine Hcl 25 Mg Tablet) 25 mg PO DAILY [facility] Last Admin: 11/08/23 09:10 Dose: 25 mg Thiamine HCl (Thiamine Hcl 100 Mg Tablet) 100 mg PO DAILY [facility] Last Admin: 11/08/23 09:10 Dose: 100 mg Trazodone HCl (Trazodone Hcl 50 Mg Tablet) 50 mg PO BEDTIME MRX1 PRN PRN Reason: Insomnia Last Admin: 11/05/23 20:52 Dose: 50 mg Allergies Allergies Allergy/AdvReac Type Severity Reaction Status Date / Time No Known Allergies Allergy Unverified 01/28/20 16:07 [No Known Allergies*] Assessment & Plan Assessment & Plan (1) Schizoaffective disorder, bipolar type: Status: Acute Code(s): F25.0 - Schizoaffective disorder, bipolar type Assessment and Plan: 11/01 mildly up - positive mood=- but less irritable than in past visits 11/02 CTP (2) Dementia: Status: Acute Code(s): F03.90 - Unspecified dementia, unspecified severity, without behavioral disturbance, psychotic disturbance, mood disturbance, and anxiety Assessment and Plan: 11/01 ongoing dementia continue with reorientation and distraction prn - (3) Noncompliance: Status: Acute Code(s): Z91.199 - Patient's noncompliance with other medical treatment and regimen due to unspecified reason Assessment and Plan: seems to be taking medication currently - watches nurse crush them and put in ice cream Plan The patient is an elderly male with a past history of schizoaffective disorder, dementia, HIV and other medical problems, chronically mentally ill resident of assisted living facility referred to this facility after he became non compliant with medications with daniella and psychosis. The patient was assessed by crisis and transferring to this facility for psychiatric stabilization. At the moment of the interview the patient was able to contract for safety. Plan 1. Gather collateral information. 2. Continue with regular medications, we are not going to change his Depakote, olanzapine and Haldol Decanoate. 3. Reassessment with results. 4. 15 minutes checks since the patient is able to contract for safety. 5. Change Zyprexa to Zydis to avoid cheeking on October 02. 6. IM zyprexa ordered 10 mg t.i.d. p.r.n. refusal of p.o. as per court order. Total dose up to 30 mg a day. 7. Zyprexa increased up to 15 mg p.o. q.h.s. to target daniella and psychosis. Started on October 15. Zyprexa was increased up to 20 mg p.o. q.h.s. on October 17. 8. Increase Haldol up to 5 mg p.o. t.i.d. on October 22 and keep Haldol Decanoate as per court order. 9. Medical certificate issued. Reason for continued inpatient stay Substantial Risk for: inability to function, rapid decompensation and med/psych decompensation Time Spent With Patient Time: Total time managing care of this patient today _20___ minutes.
[2023-11-08 20:00] VITALS: BP 118/75; PULSE 88; RESP 18; TEMP 36.6; O2SAT 97
[2023-11-08] MEDS: Mirtazapine 15 MG TABLET PO (20:47)
[2023-11-08] MEDS: traZODone HCL 50 MG TABLET PO (20:47)
[2023-11-08] MEDS: Multivitamin TABLET 1 TAB PO (20:47)
[2023-11-08] MEDS: OLANZapine 10 MG TABLET 20 MG PO (20:47)
[2023-11-09 08:00] VITALS: BP 145/74; PULSE 94; RESP 18; TEMP 36.2; O2SAT 97
[2023-11-09] MEDS: levETIRAcetam 500 MG TABLET PO ×2 (08:26→20:18)
[2023-11-09] MEDS: Emtricitabin/Tenofovir 200/300 TABLET 1 TAB PO (08:26)
[2023-11-09] MEDS: Rilpivirine HCL 25 MG TABLET PO (08:26)
[2023-11-09] MEDS: OLANZapine 5 MG TABLET PO ×2 (08:26→15:37)
[2023-11-09 08:27] VITALS: BP 145/74
[2023-11-09] MEDS: Thiamine HCL 100 MG TABLET PO (08:27)
[2023-11-09] MEDS: Divalproex Sodium Sprinkles 125 MG CAP.DR.SPR 250 MG PO ×3 (08:27→20:17)
[2023-11-09] MEDS: HaloperidoL 5 MG TABLET PO ×3 (08:27→20:18)
[2023-11-09] MEDS: amLODIPine Besylate 5 MG TABLET PO (08:27)
--- NOTE | 2023-11-09 09:44 | HO.PSYCHPN ---
Subjective Subjective Date of Service: 11/09/23 Reason For Visit: F32.9 Subjective Notes: Conditional Voluntary Interim History: The nursing staff reported the patient had being cooperative compliant with treatment stating most of the time on his room. He woke up at midnight and have ice cream. On interview the patient denies new symptoms, waiting for placement. Mental Status Exam Mental Status Exam Patient Appearance: Appropriate Patient Orientation: Person and Situation Level of Consciousness: Awake and Appropriate Patient Behavior: Guarded and Passive Mood Description: Withdrawn Affect Description: Calm Patient Cognition Impaired: Yes Ability to Follow Directions: Good Speech Pattern: Clear Hallucinations: None Delusions: Paranoid Ideation, Grandiose and Ideas of Reference Thought Process: Distracted and Slowed Thinking Thought Content: positive for [place], positive for Poverty of Content and positive for Thought Blocking Judgement: Poor Diagnostics Vital Signs (24Hr): Vital Signs - 24 hr 11/08/23 20:00 11/09/23 08:00 11/09/23 08:27 Temperature 97.8 F 97.2 F Pulse Rate 88 94 Respiratory Rate 18 18 Blood Pressure 118/75 145/74 H 145/74 H Pulse Oximetry 97 97 Oxygen Delivery Method Room Air Room Air BMI result Body Mass Index 18.5 Medications Medications Current Medications Acetaminophen (Acetaminophen 325 Mg Tablet) 650 mg PO Q6H PRN PRN Reason: Pain (Scale Score 1-3) Al Hydroxide/Mg Hydroxide (Magnesium Hydrox/Alum Hydrox 30 Ml Oral.Susp) 30 ml PO Q6H PRN PRN Reason: Heartburn/Nausea Albuterol Sulfate (Albuterol Sulfate 90 Mcg 8 Gm Inhaler) 2 puff INHALE RQ4H PRN PRN Reason: Wheezing Amlodipine Besylate (Amlodipine Besylate 5 Mg Tablet) 5 mg PO DAILY [facility]; Protocol Last Admin: 11/09/23 08:27 Dose: 5 mg Divalproex Sodium (Divalproex Sodium Sprinkles 125 Mg ) 250 mg PO TID [facility] Last Admin: 11/09/23 08:27 Dose: 250 mg Emtricitabine/Tenofovir (Emtricitabin/Tenofovir 200/300 Tablet) 1 tab PO DAILY [facility] Last Admin: 11/09/23 08:26 Dose: 1 tab Haloperidol (Haloperidol 5 Mg Tablet) 5 mg PO TID [facility] Last Admin: 11/09/23 08:27 Dose: 5 mg Haloperidol Decanoate (Haloperidol Decanoate 50 Mg/Ml Vial) 100 mg IM Q28D [facility] Last Admin: 10/28/23 22:18 Dose: 100 mg Levetiracetam (Levetiracetam 500 Mg Tablet) 500 mg PO BID [facility] Last Admin: 11/09/23 08:26 Dose: 500 mg Magnesium Hydroxide (Milk Of Magnesia 30 Ml Oral.Susp) 30 ml PO DAILY PRN PRN Reason: Constipation Mirtazapine (Mirtazapine 15 Mg Tablet) 15 mg PO BEDTIME [facility] Last Admin: 11/08/23 20:47 Dose: 15 mg Multivitamins/Vitamin C (Multivitamin Tablet) 1 tab PO BEDTIME [facility] Last Admin: 11/08/23 20:47 Dose: 1 tab Nicotine Polacrilex (Nicotine Polacrilex 2 Mg Gum) 4 mg BUCCAL Q2H PRN PRN Reason: Nicotine Cravings Olanzapine (Olanzapine 5 Mg Tablet) 5 mg PO BID@0800,1500 [facility] Last Admin: 11/09/23 08:26 Dose: 5 mg Olanzapine (Olanzapine 10 Mg Vial) 10 mg IM BEDTIME PRN PRN Reason: if refuses bedtime PO zyprexa Olanzapine (Olanzapine 10 Mg Vial) 5 mg IM BID@0800,1500 PRN PRN Reason: if refuses 0800/1500 PO zyprexa Last Admin: 10/13/23 14:58 Dose: 5 mg Olanzapine (Olanzapine 10 Mg Tablet) 20 mg PO BEDTIME [facility] Last Admin: 11/08/23 20:47 Dose: 20 mg Polyethylene Glycol (Polyethylene Glycol 3350 17 Gm Powd.Pack) 17 gm PO DAILY PRN PRN Reason: Constipation Rilpivirine (Rilpivirine Hcl 25 Mg Tablet) 25 mg PO DAILY [facility] Last Admin: 11/09/23 08:26 Dose: 25 mg Thiamine HCl (Thiamine Hcl 100 Mg Tablet) 100 mg PO DAILY [facility] Last Admin: 11/09/23 08:27 Dose: 100 mg Trazodone HCl (Trazodone Hcl 50 Mg Tablet) 50 mg PO BEDTIME MRX1 PRN PRN Reason: Insomnia Last Admin: 11/08/23 20:47 Dose: 50 mg Allergies Allergies Allergy/AdvReac Type Severity Reaction Status Date / Time No Known Allergies Allergy Unverified 01/28/20 16:07 [No Known Allergies*] Assessment & Plan Assessment & Plan (1) Schizoaffective disorder, bipolar type: Status: Acute Code(s): F25.0 - Schizoaffective disorder, bipolar type Assessment and Plan: 11/01 mildly up - positive mood=- but less irritable than in past visits 11/02 CTP (2) Dementia: Status: Acute Code(s): F03.90 - Unspecified dementia, unspecified severity, without behavioral disturbance, psychotic disturbance, mood disturbance, and anxiety Assessment and Plan: 11/01 ongoing dementia continue with reorientation and distraction prn - (3) Noncompliance: Status: Acute Code(s): Z91.199 - Patient's noncompliance with other medical treatment and regimen due to unspecified reason Assessment and Plan: seems to be taking medication currently - watches nurse crush them and put in ice cream Plan The patient is an elderly male with a past history of schizoaffective disorder, dementia, HIV and other medical problems, chronically mentally ill resident of assisted living facility referred to this facility after he became non compliant with medications with daniella and psychosis. The patient was assessed by crisis and transferring to this facility for psychiatric stabilization. At the moment of the interview the patient was able to contract for safety. Plan 1. Gather collateral information. 2. Continue with regular medications, we are not going to change his Depakote, olanzapine and Haldol Decanoate. 3. Reassessment with results. 4. 15 minutes checks since the patient is able to contract for safety. 5. Change Zyprexa to Zydis to avoid cheeking on October 02. 6. IM zyprexa ordered 10 mg t.i.d. p.r.n. refusal of p.o. as per court order. Total dose up to 30 mg a day. 7. Zyprexa increased up to 15 mg p.o. q.h.s. to target daniella and psychosis. Started on October 15. Zyprexa was increased up to 20 mg p.o. q.h.s. on October 17. 8. Increase Haldol up to 5 mg p.o. t.i.d. on October 22 and keep Haldol Decanoate as per court order. 9. Medical certificate issued. Reason for continued inpatient stay Substantial Risk for: inability to function, rapid decompensation and med/psych decompensation Time Spent With Patient Time: Total time managing care of this patient today __20__ minutes.
[2023-11-09 20:00] VITALS: BP 109/69; PULSE 91; RESP 18; TEMP 36.4; O2SAT 95
[2023-11-09] MEDS: OLANZapine 10 MG TABLET 20 MG PO (20:17)
[2023-11-09] MEDS: traZODone HCL 50 MG TABLET PO (20:17)
[2023-11-09] MEDS: Multivitamin TABLET 1 TAB PO (20:17)
[2023-11-09] MEDS: Mirtazapine 15 MG TABLET PO (20:18)
[2023-11-10 08:38] VITALS: BP 110/53; PULSE 62; RESP 18; TEMP 36.6; O2SAT 98
[2023-11-10] MEDS: Emtricitabin/Tenofovir 200/300 TABLET 1 TAB PO (08:39)
[2023-11-10] MEDS: Rilpivirine HCL 25 MG TABLET PO (08:39)
[2023-11-10] MEDS: HaloperidoL 5 MG TABLET PO ×3 (08:39→20:43)
[2023-11-10] MEDS: Divalproex Sodium Sprinkles 125 MG CAP.DR.SPR 250 MG PO ×3 (08:39→20:43)
[2023-11-10] MEDS: OLANZapine 5 MG TABLET PO ×2 (08:39→15:38)
[2023-11-10] MEDS: Thiamine HCL 100 MG TABLET PO (08:39)
[2023-11-10] MEDS: levETIRAcetam 500 MG TABLET PO ×2 (08:39→20:43)
[2023-11-10] MEDS: amLODIPine Besylate 5 MG TABLET PO (08:40)
--- NOTE | 2023-11-10 09:47 | P.PNPSI_ITS ---
Subjective Subjective Date of Service: 11/10/23 Reason For Visit: F32.9 Subjective Notes: Conditional Voluntary Interim History: The nursing staff reported the patient had been pleasant no behaviors, fully compliant with treatment. He spent most of the day in his bed he slept well. On interview the patient denies new symptoms, waiting for placement Mental Status Exam Mental Status Exam Patient Appearance: Appropriate Patient Orientation: Person and Situation Level of Consciousness: Awake and Appropriate Patient Behavior: Guarded and Passive Mood Description: Withdrawn Affect Description: Constricted Patient Cognition Impaired: Yes Ability to Follow Directions: Fair Speech Pattern: Clear Hallucinations: None Delusions: Not Present Thought Process: Distracted and Slowed Thinking Thought Content: positive for [place] and positive for Poverty of Content Judgement: Poor Diagnostics Vital Signs (24Hr): Vital Signs - 24 hr 11/09/23 20:00 11/10/23 08:38 Temperature 97.6 F 97.9 F Pulse Rate 91 62 Respiratory Rate 18 18 Blood Pressure 109/69 110/53 L Pulse Oximetry 95 98 Oxygen Delivery Method Room Air Room Air BMI result Body Mass Index 18.5 Medications Medications Current Medications Acetaminophen (Acetaminophen 325 Mg Tablet) 650 mg PO Q6H PRN PRN Reason: Pain (Scale Score 1-3) Al Hydroxide/Mg Hydroxide (Magnesium Hydrox/Alum Hydrox 30 Ml Oral.Susp) 30 ml PO Q6H PRN PRN Reason: Heartburn/Nausea Albuterol Sulfate (Albuterol Sulfate 90 Mcg 8 Gm Inhaler) 2 puff INHALE RQ4H PRN PRN Reason: Wheezing Amlodipine Besylate (Amlodipine Besylate 5 Mg Tablet) 5 mg PO DAILY [facility]; Protocol Last Admin: 11/10/23 08:40 Dose: 5 mg Divalproex Sodium (Divalproex Sodium Sprinkles 125 Mg ) 250 mg PO TID [facility] Last Admin: 11/10/23 08:39 Dose: 250 mg Emtricitabine/Tenofovir (Emtricitabin/Tenofovir 200/300 Tablet) 1 tab PO DAILY [facility] Last Admin: 11/10/23 08:39 Dose: 1 tab Haloperidol (Haloperidol 5 Mg Tablet) 5 mg PO TID [facility] Last Admin: 11/10/23 08:39 Dose: 5 mg Haloperidol Decanoate (Haloperidol Decanoate 50 Mg/Ml Vial) 100 mg IM Q28D [facility] Last Admin: 10/28/23 22:18 Dose: 100 mg Levetiracetam (Levetiracetam 500 Mg Tablet) 500 mg PO BID [facility] Last Admin: 11/10/23 08:39 Dose: 500 mg Magnesium Hydroxide (Milk Of Magnesia 30 Ml Oral.Susp) 30 ml PO DAILY PRN PRN Reason: Constipation Mirtazapine (Mirtazapine 15 Mg Tablet) 15 mg PO BEDTIME [facility] Last Admin: 11/09/23 20:18 Dose: 15 mg Multivitamins/Vitamin C (Multivitamin Tablet) 1 tab PO BEDTIME [facility] Last Admin: 11/09/23 20:17 Dose: 1 tab Nicotine Polacrilex (Nicotine Polacrilex 2 Mg Gum) 4 mg BUCCAL Q2H PRN PRN Reason: Nicotine Cravings Olanzapine (Olanzapine 5 Mg Tablet) 5 mg PO BID@0800,1500 [facility] Last Admin: 11/10/23 08:39 Dose: 5 mg Olanzapine (Olanzapine 10 Mg Vial) 10 mg IM BEDTIME PRN PRN Reason: if refuses bedtime PO zyprexa Olanzapine (Olanzapine 10 Mg Vial) 5 mg IM BID@0800,1500 PRN PRN Reason: if refuses 0800/1500 PO zyprexa Last Admin: 10/13/23 14:58 Dose: 5 mg Olanzapine (Olanzapine 10 Mg Tablet) 20 mg PO BEDTIME [facility] Last Admin: 11/09/23 20:17 Dose: 20 mg Polyethylene Glycol (Polyethylene Glycol 3350 17 Gm Powd.Pack) 17 gm PO DAILY PRN PRN Reason: Constipation Rilpivirine (Rilpivirine Hcl 25 Mg Tablet) 25 mg PO DAILY [facility] Last Admin: 11/10/23 08:39 Dose: 25 mg Thiamine HCl (Thiamine Hcl 100 Mg Tablet) 100 mg PO DAILY [facility] Last Admin: 11/10/23 08:39 Dose: 100 mg Trazodone HCl (Trazodone Hcl 50 Mg Tablet) 50 mg PO BEDTIME MRX1 PRN PRN Reason: Insomnia Last Admin: 11/09/23 20:17 Dose: 50 mg Allergies Allergies Allergy/AdvReac Type Severity Reaction Status Date / Time No Known Allergies Allergy Unverified 01/28/20 16:07 [No Known Allergies*] Assessment & Plan Assessment & Plan (1) Schizoaffective disorder, bipolar type: Status: Acute Code(s): F25.0 - Schizoaffective disorder, bipolar type Assessment and Plan: 6/22 mildly up - positive mood=- but less irritable than in past visits 11/02 CTP (2) Dementia: Status: Acute Code(s): F03.90 - Unspecified dementia, unspecified severity, without behavioral disturbance, psychotic disturbance, mood disturbance, and anxiety Assessment and Plan: 11/01 ongoing dementia continue with reorientation and distraction prn - (3) Noncompliance: Status: Acute Code(s): Z91.199 - Patient's noncompliance with other medical treatment and regimen due to unspecified reason Assessment and Plan: seems to be taking medication currently - watches nurse crush them and put in ice cream Plan The patient is an elderly male with a past history of schizoaffective disorder, dementia, HIV and other medical problems, chronically mentally ill resident of assisted living facility referred to this facility after he became non compliant with medications with daniella and psychosis. The patient was assessed by crisis and transferring to this facility for psychiatric stabilization. At the moment of the interview the patient was able to contract for safety. Plan 1. Gather collateral information. 2. Continue with regular medications, we are not going to change his Depakote, olanzapine and Haldol Decanoate. 3. Reassessment with results. 4. 15 minutes checks since the patient is able to contract for safety. 5. Change Zyprexa to Zydis to avoid cheeking on October 02. 6. IM zyprexa ordered 10 mg t.i.d. p.r.n. refusal of p.o. as per court order. Total dose up to 30 mg a day. 7. Zyprexa increased up to 15 mg p.o. q.h.s. to target daniella and psychosis. Started on October 15. Zyprexa was increased up to 20 mg p.o. q.h.s. on October 17. 8. Increase Haldol up to 5 mg p.o. t.i.d. on October 22 and keep Haldol Decanoate as per court order. 9. Medical certificate issued. Reason for continued inpatient stay Substantial Risk for: inability to function, rapid decompensation and med/psych decompensation Time Spent With Patient Time: Total time managing care of this patient today _20___ minutes.
[2023-11-10 20:00] VITALS: BP 128/66; PULSE 88; RESP 18; TEMP 36.2; O2SAT 98
[2023-11-10] MEDS: OLANZapine 10 MG TABLET 20 MG PO (20:42)
[2023-11-10] MEDS: Multivitamin TABLET 1 TAB PO (20:42)
[2023-11-10] MEDS: traZODone HCL 50 MG TABLET PO (20:43)
[2023-11-10] MEDS: Mirtazapine 15 MG TABLET PO (20:43)
[2023-11-11 08:00] VITALS: BP 122/75; PULSE 79; RESP 17; TEMP 36.1; O2SAT 95
[2023-11-11] MEDS: OLANZapine 5 MG TABLET PO ×2 (08:48→15:33)
[2023-11-11] MEDS: HaloperidoL 5 MG TABLET PO ×3 (08:48→21:21)
[2023-11-11] MEDS: amLODIPine Besylate 5 MG TABLET PO (08:49)
[2023-11-11] MEDS: Thiamine HCL 100 MG TABLET PO (08:49)
[2023-11-11] MEDS: Emtricitabin/Tenofovir 200/300 TABLET 1 TAB PO (08:49)
[2023-11-11] MEDS: Divalproex Sodium Sprinkles 125 MG CAP.DR.SPR 250 MG PO ×3 (08:49→21:21)
[2023-11-11] MEDS: Rilpivirine HCL 25 MG TABLET PO (08:49)
[2023-11-11] MEDS: levETIRAcetam 500 MG TABLET PO ×2 (08:49→21:21)
--- NOTE | 2023-11-11 14:35 | P.PNPSI_ITS ---
Subjective Subjective Date of Service: 11/11/23 Reason For Visit: F32.9 Subjective Notes: Conditional Voluntary Interim History: The nursing staff reported the patient had been compliant with treatment, slept 8 hours. The protective services social worker reported he had been accepted at [facility]. Interview the patient denies new symptoms, waiting for placement Mental Status Exam Mental Status Exam Patient Appearance: Appropriate Patient Orientation: Person and Situation Level of Consciousness: Awake Patient Behavior: Guarded and Passive Mood Description: Withdrawn Affect Description: Constricted Patient Cognition Impaired: Yes Ability to Follow Directions: Good Speech Pattern: Clear Hallucinations: None Delusions: Not Present Thought Process: Distracted and Slowed Thinking Thought Content: positive for [place] and positive for Poverty of Content Judgement: Poor Diagnostics Vital Signs (24Hr): Vital Signs - 24 hr 11/10/23 20:00 11/11/23 08:00 Temperature 97.1 F 97 F Pulse Rate 88 79 Respiratory Rate 18 17 Blood Pressure 128/66 122/75 Pulse Oximetry 98 95 Oxygen Delivery Method Room Air Room Air BMI result Body Mass Index 18.5 Medications Medications Current Medications Acetaminophen (Acetaminophen 325 Mg Tablet) 650 mg PO Q6H PRN PRN Reason: Pain (Scale Score 1-3) Al Hydroxide/Mg Hydroxide (Magnesium Hydrox/Alum Hydrox 30 Ml Oral.Susp) 30 ml PO Q6H PRN PRN Reason: Heartburn/Nausea Albuterol Sulfate (Albuterol Sulfate 90 Mcg 8 Gm Inhaler) 2 puff INHALE RQ4H PRN PRN Reason: Wheezing Amlodipine Besylate (Amlodipine Besylate 5 Mg Tablet) 5 mg PO DAILY [facility]; Protocol Last Admin: 11/11/23 08:49 Dose: 5 mg Divalproex Sodium (Divalproex Sodium Sprinkles 125 Mg ) 250 mg PO TID [facility] Last Admin: 11/11/23 08:49 Dose: 250 mg Emtricitabine/Tenofovir (Emtricitabin/Tenofovir 200/300 Tablet) 1 tab PO DAILY [facility] Last Admin: 11/11/23 08:49 Dose: 1 tab Haloperidol (Haloperidol 5 Mg Tablet) 5 mg PO TID [facility] Last Admin: 11/11/23 08:48 Dose: 5 mg Haloperidol Decanoate (Haloperidol Decanoate 50 Mg/Ml Vial) 100 mg IM Q28D [facility] Last Admin: 10/28/23 22:18 Dose: 100 mg Levetiracetam (Levetiracetam 500 Mg Tablet) 500 mg PO BID [facility] Last Admin: 11/11/23 08:49 Dose: 500 mg Magnesium Hydroxide (Milk Of Magnesia 30 Ml Oral.Susp) 30 ml PO DAILY PRN PRN Reason: Constipation Mirtazapine (Mirtazapine 15 Mg Tablet) 15 mg PO BEDTIME [facility] Last Admin: 11/10/23 20:43 Dose: 15 mg Multivitamins/Vitamin C (Multivitamin Tablet) 1 tab PO BEDTIME [facility] Last Admin: 11/10/23 20:42 Dose: 1 tab Nicotine Polacrilex (Nicotine Polacrilex 2 Mg Gum) 4 mg BUCCAL Q2H PRN PRN Reason: Nicotine Cravings Olanzapine (Olanzapine 5 Mg Tablet) 5 mg PO BID@0800,1500 [facility] Last Admin: 11/11/23 08:48 Dose: 5 mg Olanzapine (Olanzapine 10 Mg Vial) 10 mg IM BEDTIME PRN PRN Reason: if refuses bedtime PO zyprexa Olanzapine (Olanzapine 10 Mg Vial) 5 mg IM BID@0800,1500 PRN PRN Reason: if refuses 0800/1500 PO zyprexa Last Admin: 10/13/23 14:58 Dose: 5 mg Olanzapine (Olanzapine 10 Mg Tablet) 20 mg PO BEDTIME [facility] Last Admin: 11/10/23 20:42 Dose: 20 mg Polyethylene Glycol (Polyethylene Glycol 3350 17 Gm Powd.Pack) 17 gm PO DAILY PRN PRN Reason: Constipation Rilpivirine (Rilpivirine Hcl 25 Mg Tablet) 25 mg PO DAILY [facility] Last Admin: 11/11/23 08:49 Dose: 25 mg Thiamine HCl (Thiamine Hcl 100 Mg Tablet) 100 mg PO DAILY [facility] Last Admin: 11/11/23 08:49 Dose: 100 mg Trazodone HCl (Trazodone Hcl 50 Mg Tablet) 50 mg PO BEDTIME MRX1 PRN PRN Reason: Insomnia Last Admin: 11/10/23 20:43 Dose: 50 mg Allergies Allergies Allergy/AdvReac Type Severity Reaction Status Date / Time No Known Allergies Allergy Unverified 01/28/20 16:07 [No Known Allergies*] Assessment & Plan Assessment & Plan (1) Schizoaffective disorder, bipolar type: Status: Acute Code(s): F25.0 - Schizoaffective disorder, bipolar type Assessment and Plan: 11/01 mildly up - positive mood=- but less irritable than in past visits 11/02 CTP (2) Dementia: Status: Acute Code(s): F03.90 - Unspecified dementia, unspecified severity, without behavioral disturbance, psychotic disturbance, mood disturbance, and anxiety Assessment and Plan: 11/01 ongoing dementia continue with reorientation and distraction prn - (3) Noncompliance: Status: Acute Code(s): Z91.199 - Patient's noncompliance with other medical treatment and regimen due to unspecified reason Assessment and Plan: seems to be taking medication currently - watches nurse crush them and put in ice cream Plan The patient is an elderly male with a past history of schizoaffective disorder, dementia, HIV and other medical problems, chronically mentally ill resident of assisted living facility referred to this facility after he became non compliant with medications with daniella and psychosis. The patient was assessed by crisis and transferring to this facility for psychiatric stabilization. At the moment of the interview the patient was able to contract for safety. Plan 1. Gather collateral information. 2. Continue with regular medications, we are not going to change his Depakote, olanzapine and Haldol Decanoate. 3. Reassessment with results. 4. 15 minutes checks since the patient is able to contract for safety. 5. Change Zyprexa to Zydis to avoid cheeking on October 02. 6. IM zyprexa ordered 10 mg t.i.d. p.r.n. refusal of p.o. as per court order. Total dose up to 30 mg a day. 7. Zyprexa increased up to 15 mg p.o. q.h.s. to target daniella and psychosis. Started on October 15. Zyprexa was increased up to 20 mg p.o. q.h.s. on October 17. 8. Increase Haldol up to 5 mg p.o. t.i.d. on October 22 and keep Haldol Decanoate as per court order. 9. Medical certificate issued. Reason for continued inpatient stay Substantial Risk for: inability to function, rapid decompensation and med/psych decompensation Time Spent With Patient Time: Total time managing care of this patient today __20__ minutes.
[2023-11-11 20:00] VITALS: BP 96/59; PULSE 80; RESP 18; TEMP 36.6; O2SAT 97
[2023-11-11] MEDS: Mirtazapine 15 MG TABLET PO (21:21)
[2023-11-11] MEDS: Multivitamin TABLET 1 TAB PO (21:21)
[2023-11-11] MEDS: OLANZapine 10 MG TABLET 20 MG PO (21:21)
[2023-11-11] MEDS: traZODone HCL 50 MG TABLET PO (21:23)
[2023-11-12] MEDS: Magnesium Hydrox/Alum Hydrox 30 ML ORAL.SUSP PO (06:20)
[2023-11-12 08:25] VITALS: BP 157/66; PULSE 88; RESP 18; TEMP 36.6; O2SAT 95
[2023-11-12] MEDS: Rilpivirine HCL 25 MG TABLET PO (08:30)
[2023-11-12] MEDS: OLANZapine 5 MG TABLET PO ×2 (08:40→15:48)
[2023-11-12] MEDS: levETIRAcetam 500 MG TABLET PO ×2 (08:40→21:25)
[2023-11-12] MEDS: Divalproex Sodium Sprinkles 125 MG CAP.DR.SPR 250 MG PO ×3 (08:40→21:25)
[2023-11-12] MEDS: Thiamine HCL 100 MG TABLET PO (08:40)
[2023-11-12] MEDS: Emtricitabin/Tenofovir 200/300 TABLET 1 TAB PO (08:40)
[2023-11-12] MEDS: HaloperidoL 5 MG TABLET PO ×3 (08:40→21:25)
[2023-11-12 08:41] VITALS: BP 157/66
[2023-11-12] MEDS: amLODIPine Besylate 5 MG TABLET PO (08:41)
--- NOTE | 2023-11-12 13:06 | HO.PSYCHPN ---
Subjective Subjective Date of Service: 11/12/23 Reason For Visit: F32.9 Subjective Notes: Conditional Voluntary Interim History: The nursing staff reported the patient had been isolative cooperative fully compliant with treatment, he slept 8 hours. On interview the patient denies new symptoms, he is waiting for placement. Mental Status Exam Mental Status Exam Patient Appearance: Appropriate Patient Orientation: Person and Situation Level of Consciousness: Awake and Appropriate Patient Behavior: Guarded and Passive Mood Description: Withdrawn Affect Description: Calm and Blunted Patient Cognition Impaired: Yes Ability to Follow Directions: Fair Speech Pattern: Clear Hallucinations: None Delusions: Not Present Thought Process: Distracted and Slowed Thinking Thought Content: positive for [place] and positive for Poverty of Content Judgement: Fair Diagnostics Vital Signs (24Hr): Vital Signs - 24 hr 11/11/23 20:00 11/12/23 08:25 11/12/23 08:41 Temperature 97.8 F 97.9 F Pulse Rate 80 88 Respiratory Rate 18 18 Blood Pressure 96/59 L 157/66 H 157/66 H Pulse Oximetry 97 95 Oxygen Delivery Method Room Air Room Air BMI result Body Mass Index 18.5 Medications Medications Current Medications Acetaminophen (Acetaminophen 325 Mg Tablet) 650 mg PO Q6H PRN PRN Reason: Pain (Scale Score 1-3) Al Hydroxide/Mg Hydroxide (Magnesium Hydrox/Alum Hydrox 30 Ml Oral.Susp) 30 ml PO Q6H PRN PRN Reason: Heartburn/Nausea Last Admin: 11/12/23 06:20 Dose: 30 ml Albuterol Sulfate (Albuterol Sulfate 90 Mcg 8 Gm Inhaler) 2 puff INHALE RQ4H PRN PRN Reason: Wheezing Amlodipine Besylate (Amlodipine Besylate 5 Mg Tablet) 5 mg PO DAILY [facility]; Protocol Last Admin: 11/12/23 08:41 Dose: 5 mg Divalproex Sodium (Divalproex Sodium Sprinkles 125 Mg ) 250 mg PO TID [facility] Last Admin: 11/12/23 08:40 Dose: 250 mg Emtricitabine/Tenofovir (Emtricitabin/Tenofovir 200/300 Tablet) 1 tab PO DAILY [facility] Last Admin: 11/12/23 08:40 Dose: 1 tab Haloperidol (Haloperidol 5 Mg Tablet) 5 mg PO TID [facility] Last Admin: 11/12/23 08:40 Dose: 5 mg Haloperidol Decanoate (Haloperidol Decanoate 50 Mg/Ml Vial) 100 mg IM Q28D [facility] Last Admin: 10/28/23 22:18 Dose: 100 mg Levetiracetam (Levetiracetam 500 Mg Tablet) 500 mg PO BID [facility] Last Admin: 11/12/23 08:40 Dose: 500 mg Magnesium Hydroxide (Milk Of Magnesia 30 Ml Oral.Susp) 30 ml PO DAILY PRN PRN Reason: Constipation Mirtazapine (Mirtazapine 15 Mg Tablet) 15 mg PO BEDTIME [facility] Last Admin: 11/11/23 21:21 Dose: 15 mg Multivitamins/Vitamin C (Multivitamin Tablet) 1 tab PO BEDTIME [facility] Last Admin: 11/11/23 21:21 Dose: 1 tab Nicotine Polacrilex (Nicotine Polacrilex 2 Mg Gum) 4 mg BUCCAL Q2H PRN PRN Reason: Nicotine Cravings Olanzapine (Olanzapine 5 Mg Tablet) 5 mg PO BID@0800,1500 [facility] Last Admin: 11/12/23 08:40 Dose: 5 mg Olanzapine (Olanzapine 10 Mg Vial) 10 mg IM BEDTIME PRN PRN Reason: if refuses bedtime PO zyprexa Olanzapine (Olanzapine 10 Mg Vial) 5 mg IM BID@0800,1500 PRN PRN Reason: if refuses 0800/1500 PO zyprexa Last Admin: 10/13/23 14:58 Dose: 5 mg Olanzapine (Olanzapine 10 Mg Tablet) 20 mg PO BEDTIME [facility] Last Admin: 11/11/23 21:21 Dose: 20 mg Polyethylene Glycol (Polyethylene Glycol 3350 17 Gm Powd.Pack) 17 gm PO DAILY PRN PRN Reason: Constipation Rilpivirine (Rilpivirine Hcl 25 Mg Tablet) 25 mg PO DAILY [facility] Last Admin: 11/12/23 08:30 Dose: 25 mg Thiamine HCl (Thiamine Hcl 100 Mg Tablet) 100 mg PO DAILY [facility] Last Admin: 11/12/23 08:40 Dose: 100 mg Trazodone HCl (Trazodone Hcl 50 Mg Tablet) 50 mg PO BEDTIME MRX1 PRN PRN Reason: Insomnia Last Admin: 11/11/23 21:23 Dose: 50 mg Allergies Allergies Allergy/AdvReac Type Severity Reaction Status Date / Time No Known Allergies Allergy Unverified 01/28/20 16:07 [No Known Allergies*] Assessment & Plan Assessment & Plan (1) Schizoaffective disorder, bipolar type: Status: Acute Code(s): F25.0 - Schizoaffective disorder, bipolar type Assessment and Plan: 11/01 mildly up - positive mood=- but less irritable than in past visits 11/02 CTP (2) Dementia: Status: Acute Code(s): F03.90 - Unspecified dementia, unspecified severity, without behavioral disturbance, psychotic disturbance, mood disturbance, and anxiety Assessment and Plan: 11/01 ongoing dementia continue with reorientation and distraction prn - (3) Noncompliance: Status: Acute Code(s): Z91.199 - Patient's noncompliance with other medical treatment and regimen due to unspecified reason Assessment and Plan: seems to be taking medication currently - watches nurse crush them and put in ice cream Plan The patient is an elderly male with a past history of schizoaffective disorder, dementia, HIV and other medical problems, chronically mentally ill resident of assisted living facility referred to this facility after he became non compliant with medications with daniella and psychosis. The patient was assessed by crisis and transferring to this facility for psychiatric stabilization. At the moment of the interview the patient was able to contract for safety. Plan 1. Gather collateral information. 2. Continue with regular medications, we are not going to change his Depakote, olanzapine and Haldol Decanoate. 3. Reassessment with results. 4. 15 minutes checks since the patient is able to contract for safety. 5. Change Zyprexa to Zydis to avoid cheeking on October 02. 6. IM zyprexa ordered 10 mg t.i.d. p.r.n. refusal of p.o. as per court order. Total dose up to 30 mg a day. 7. Zyprexa increased up to 15 mg p.o. q.h.s. to target daniella and psychosis. Started on October 15. Zyprexa was increased up to 20 mg p.o. q.h.s. on October 17. 8. Increase Haldol up to 5 mg p.o. t.i.d. on October 22 and keep Haldol Decanoate as per court order. 9. Medical certificate issued. Reason for continued inpatient stay Substantial Risk for: inability to function, rapid decompensation and med/psych decompensation Time Spent With Patient Time: Total time managing care of this patient today __20__ minutes.
[2023-11-12 20:00] VITALS: BP 90/56; PULSE 84; RESP 16; TEMP 36.6; O2SAT 92
[2023-11-12] MEDS: Mirtazapine 15 MG TABLET PO (21:26)
[2023-11-12] MEDS: OLANZapine 10 MG TABLET 20 MG PO (21:26)
[2023-11-12] MEDS: Multivitamin TABLET 1 TAB PO (21:26)
[2023-11-13 08:14] VITALS: BP 117/70; PULSE 90; RESP 16; TEMP 36.2; O2SAT 95
[2023-11-13] MEDS: OLANZapine 5 MG TABLET PO ×2 (08:19→15:56)
[2023-11-13] MEDS: amLODIPine Besylate 5 MG TABLET PO (08:19)
[2023-11-13] MEDS: levETIRAcetam 500 MG TABLET PO ×2 (08:19→21:26)
[2023-11-13] MEDS: Rilpivirine HCL 25 MG TABLET PO (08:19)
[2023-11-13] MEDS: Emtricitabin/Tenofovir 200/300 TABLET 1 TAB PO (08:19)
[2023-11-13] MEDS: HaloperidoL 5 MG TABLET PO ×3 (08:19→21:26)
[2023-11-13] MEDS: Thiamine HCL 100 MG TABLET PO (08:19)
[2023-11-13] MEDS: Divalproex Sodium Sprinkles 125 MG CAP.DR.SPR 250 MG PO ×3 (08:19→21:26)
--- NOTE | 2023-11-13 11:43 | MHC.CLN ---
F/U DIET=REGULAR. ENSURE TID TO INCREASE KCALS/NUTRITION. SUPPLEMENT PROVIDES 1050 KCALS, 60 G PROTEIN. INTAKE VARIABLE WITH MOST MEALS 75-100%. ACCEPTS ENSURE SUPPLEMENT. FAVORABLE WEIGHT GAIN SINCE ADMISSION, WITH BMI=18.5. FOLLOW FOR INTAKE OF MEALS AND SUPPLEMENT. RD TO FOLLOW UP WEEKLY.
--- NOTE | 2023-11-13 14:05 | P.PNPSI_ITS ---
Subjective Subjective Date of Service: 11/13/23 Reason For Visit: F32.9 Subjective Notes: Conditional Voluntary Interim History: The nursing staff reported the patient had been fully compliant with treatment, no new behavioral problems. On interview the patient denies new symptoms, waiting for placement. Mental Status Exam Mental Status Exam Patient Appearance: Appropriate and Unkempt Patient Orientation: Person and Situation Level of Consciousness: Awake and Appropriate Patient Behavior: Guarded and Passive Mood Description: Withdrawn Affect Description: Constricted Patient Cognition Impaired: Yes Ability to Follow Directions: Good Speech Pattern: Clear Hallucinations: None Delusions: Not Present Thought Process: Distracted and Slowed Thinking Thought Content: positive for [place] and positive for Poverty of Content Judgement: Fair Diagnostics Vital Signs (24Hr): Vital Signs - 24 hr 11/12/23 20:00 11/13/23 08:14 Temperature 98 F 97.1 F Pulse Rate 84 90 Respiratory Rate 16 16 Blood Pressure 90/56 L 117/70 Pulse Oximetry 92 95 Oxygen Delivery Method Room Air Room Air BMI result Body Mass Index 18.5 Medications Medications Current Medications Acetaminophen (Acetaminophen 325 Mg Tablet) 650 mg PO Q6H PRN PRN Reason: Pain (Scale Score 1-3) Al Hydroxide/Mg Hydroxide (Magnesium Hydrox/Alum Hydrox 30 Ml Oral.Susp) 30 ml PO Q6H PRN PRN Reason: Heartburn/Nausea Last Admin: 11/12/23 06:20 Dose: 30 ml Albuterol Sulfate (Albuterol Sulfate 90 Mcg 8 Gm Inhaler) 2 puff INHALE RQ4H PRN PRN Reason: Wheezing Amlodipine Besylate (Amlodipine Besylate 5 Mg Tablet) 5 mg PO DAILY [facility]; Protocol Last Admin: 11/13/23 08:19 Dose: 5 mg Divalproex Sodium (Divalproex Sodium Sprinkles 125 Mg ) 250 mg PO TID [facility] Last Admin: 11/13/23 08:19 Dose: 250 mg Emtricitabine/Tenofovir (Emtricitabin/Tenofovir 200/300 Tablet) 1 tab PO DAILY [facility] Last Admin: 11/13/23 08:19 Dose: 1 tab Haloperidol (Haloperidol 5 Mg Tablet) 5 mg PO TID [facility] Last Admin: 11/13/23 08:19 Dose: 5 mg Haloperidol Decanoate (Haloperidol Decanoate 50 Mg/Ml Vial) 100 mg IM Q28D [facility] Last Admin: 10/28/23 22:18 Dose: 100 mg Levetiracetam (Levetiracetam 500 Mg Tablet) 500 mg PO BID [facility] Last Admin: 11/13/23 08:19 Dose: 500 mg Magnesium Hydroxide (Milk Of Magnesia 30 Ml Oral.Susp) 30 ml PO DAILY PRN PRN Reason: Constipation Mirtazapine (Mirtazapine 15 Mg Tablet) 15 mg PO BEDTIME [facility] Last Admin: 11/12/23 21:26 Dose: 15 mg Multivitamins/Vitamin C (Multivitamin Tablet) 1 tab PO BEDTIME [facility] Last Admin: 11/12/23 21:26 Dose: 1 tab Nicotine Polacrilex (Nicotine Polacrilex 2 Mg Gum) 4 mg BUCCAL Q2H PRN PRN Reason: Nicotine Cravings Olanzapine (Olanzapine 5 Mg Tablet) 5 mg PO BID@0800,1500 [facility] Last Admin: 11/13/23 08:19 Dose: 5 mg Olanzapine (Olanzapine 10 Mg Vial) 10 mg IM BEDTIME PRN PRN Reason: if refuses bedtime PO zyprexa Olanzapine (Olanzapine 10 Mg Vial) 5 mg IM BID@0800,1500 PRN PRN Reason: if refuses 0800/1500 PO zyprexa Last Admin: 10/13/23 14:58 Dose: 5 mg Olanzapine (Olanzapine 10 Mg Tablet) 20 mg PO BEDTIME [facility] Last Admin: 11/12/23 21:26 Dose: 20 mg Polyethylene Glycol (Polyethylene Glycol 3350 17 Gm Powd.Pack) 17 gm PO DAILY PRN PRN Reason: Constipation Rilpivirine (Rilpivirine Hcl 25 Mg Tablet) 25 mg PO DAILY [facility] Last Admin: 11/13/23 08:19 Dose: 25 mg Thiamine HCl (Thiamine Hcl 100 Mg Tablet) 100 mg PO DAILY [facility] Last Admin: 11/13/23 08:19 Dose: 100 mg Trazodone HCl (Trazodone Hcl 50 Mg Tablet) 50 mg PO BEDTIME MRX1 PRN PRN Reason: Insomnia Last Admin: 11/11/23 21:23 Dose: 50 mg Allergies Allergies Allergy/AdvReac Type Severity Reaction Status Date / Time No Known Allergies Allergy Unverified 01/28/20 16:07 [No Known Allergies*] Assessment & Plan Assessment & Plan (1) Schizoaffective disorder, bipolar type: Status: Acute Code(s): F25.0 - Schizoaffective disorder, bipolar type Assessment and Plan: 11/01 mildly up - positive mood=- but less irritable than in past visits 11/02 CTP (2) Dementia: Status: Acute Code(s): F03.90 - Unspecified dementia, unspecified severity, without behavioral disturbance, psychotic disturbance, mood disturbance, and anxiety Assessment and Plan: 11/01 ongoing dementia continue with reorientation and distraction prn - (3) Noncompliance: Status: Acute Code(s): Z91.199 - Patient's noncompliance with other medical treatment and regimen due to unspecified reason Assessment and Plan: seems to be taking medication currently - watches nurse crush them and put in ice cream Plan The patient is an elderly male with a past history of schizoaffective disorder, dementia, HIV and other medical problems, chronically mentally ill resident of assisted living facility referred to this facility after he became non compliant with medications with daniella and psychosis. The patient was assessed by crisis and transferring to this facility for psychiatric stabilization. At the moment of the interview the patient was able to contract for safety. Plan 1. Gather collateral information. 2. Continue with regular medications, we are not going to change his Depakote, olanzapine and Haldol Decanoate. 3. Reassessment with results. 4. 15 minutes checks since the patient is able to contract for safety. 5. Change Zyprexa to Zydis to avoid cheeking on October 02. 6. IM zyprexa ordered 10 mg t.i.d. p.r.n. refusal of p.o. as per court order. Total dose up to 30 mg a day. 7. Zyprexa increased up to 15 mg p.o. q.h.s. to target daniella and psychosis. Started on October 15. Zyprexa was increased up to 20 mg p.o. q.h.s. on October 17. 8. Increase Haldol up to 5 mg p.o. t.i.d. on October 22 and keep Haldol Decanoate as per court order. 9. Medical certificate issued. Reason for continued inpatient stay Substantial Risk for: inability to function, rapid decompensation and med/psych decompensation Time Spent With Patient Time: Total time managing care of this patient today __20__ minutes.
[2023-11-13 20:00] VITALS: BP 90/60; PULSE 82; RESP 16; TEMP 37.1; O2SAT 97
[2023-11-13] MEDS: Mirtazapine 15 MG TABLET PO (21:26)
[2023-11-13] MEDS: OLANZapine 10 MG TABLET 20 MG PO (21:26)
[2023-11-13] MEDS: Multivitamin TABLET 1 TAB PO (21:26)
[2023-11-14 07:00] VITALS: BMI 17.2
[2023-11-14 08:00] VITALS: BP 112/63; PULSE 98; RESP 18; TEMP 36.6; O2SAT 96
[2023-11-14] MEDS: amLODIPine Besylate 5 MG TABLET PO (08:16)
[2023-11-14] MEDS: Divalproex Sodium Sprinkles 125 MG CAP.DR.SPR 250 MG PO ×3 (08:16→20:35)
[2023-11-14] MEDS: levETIRAcetam 500 MG TABLET PO ×2 (08:17→20:35)
[2023-11-14] MEDS: OLANZapine 5 MG TABLET PO ×2 (08:17→14:18)
[2023-11-14] MEDS: Thiamine HCL 100 MG TABLET PO (08:17)
[2023-11-14] MEDS: Rilpivirine HCL 25 MG TABLET PO (08:17)
[2023-11-14] MEDS: HaloperidoL 5 MG TABLET PO ×3 (08:17→20:35)
[2023-11-14] MEDS: Emtricitabin/Tenofovir 200/300 TABLET 1 TAB PO (08:17)
--- NOTE | 2023-11-14 11:38 | HO.PSYCHPN ---
Subjective Subjective Date of Service: 11/14/23 Reason For Visit: F32.9 Interim History: The nursing staff reported the patient had been fully compliant with treatment, no new behavioral problems. On interview the patient denies new symptoms, waiting for placement. Review of Systems Review of Systems General: No fevers, malaise, unintentional weight loss HEENT: No blurred vision, diplopia. No sore throat, nasal congestion, rhinorrhea, sinus pain, ear pain Cardiovascular: No chest pain, palpitations, or leg edema Respiratory: No shortness of breath, wheezing, cough GI: No abdominal pain, nausea, vomiting, diarrhea, constipation, melena, hematochezia : No dysuria, hematuria, increased urinary frequency, decreased urinary output MSK: No myalgia, back pain Neuro: No headaches, weakness, paresthesias Skin: No rashes or lesions Yes Unobtainable due to mental status Mental Status Exam Mental Status Exam Narrative: pt more talkative, denies complaints; slightly brighter Self-care is poor. In bed. Patient Appearance: Appropriate and Unkempt Patient Orientation: Person and Situation Level of Consciousness: Awake and Appropriate Patient Behavior: Guarded and Passive Mood Description: Withdrawn Affect Description: Constricted Patient Cognition Impaired: Yes Ability to Follow Directions: Good Speech Pattern: Clear Judgement: Poor Diagnostics Vital Signs (24Hr): Vital Signs - 24 hr 11/13/23 20:00 11/14/23 08:00 Temperature 98.7 F 97.9 F Pulse Rate 82 98 Respiratory Rate 16 18 Blood Pressure 90/60 112/63 Pulse Oximetry 97 96 Oxygen Delivery Method Room Air Room Air BMI result Body Mass Index 17.2 Medications Medications Current Medications Acetaminophen (Acetaminophen 325 Mg Tablet) 650 mg PO Q6H PRN PRN Reason: Pain (Scale Score 1-3) Al Hydroxide/Mg Hydroxide (Magnesium Hydrox/Alum Hydrox 30 Ml Oral.Susp) 30 ml PO Q6H PRN PRN Reason: Heartburn/Nausea Last Admin: 11/12/23 06:20 Dose: 30 ml Albuterol Sulfate (Albuterol Sulfate 90 Mcg 8 Gm Inhaler) 2 puff INHALE RQ4H PRN PRN Reason: Wheezing Amlodipine Besylate (Amlodipine Besylate 5 Mg Tablet) 5 mg PO DAILY [facility]; Protocol Last Admin: 11/14/23 08:16 Dose: 5 mg Divalproex Sodium (Divalproex Sodium Sprinkles 125 Mg ) 250 mg PO TID [facility] Last Admin: 11/14/23 08:16 Dose: 250 mg Emtricitabine/Tenofovir (Emtricitabin/Tenofovir 200/300 Tablet) 1 tab PO DAILY [facility] Last Admin: 11/14/23 08:17 Dose: 1 tab Haloperidol (Haloperidol 5 Mg Tablet) 5 mg PO TID [facility] Last Admin: 11/14/23 08:17 Dose: 5 mg Haloperidol Decanoate (Haloperidol Decanoate 50 Mg/Ml Vial) 100 mg IM Q28D [facility] Last Admin: 10/28/23 22:18 Dose: 100 mg Levetiracetam (Levetiracetam 500 Mg Tablet) 500 mg PO BID [facility] Last Admin: 11/14/23 08:17 Dose: 500 mg Magnesium Hydroxide (Milk Of Magnesia 30 Ml Oral.Susp) 30 ml PO DAILY PRN PRN Reason: Constipation Mirtazapine (Mirtazapine 15 Mg Tablet) 15 mg PO BEDTIME [facility] Last Admin: 11/13/23 21:26 Dose: 15 mg Multivitamins/Vitamin C (Multivitamin Tablet) 1 tab PO BEDTIME [facility] Last Admin: 11/13/23 21:26 Dose: 1 tab Nicotine Polacrilex (Nicotine Polacrilex 2 Mg Gum) 4 mg BUCCAL Q2H PRN PRN Reason: Nicotine Cravings Olanzapine (Olanzapine 5 Mg Tablet) 5 mg PO BID@0800,1500 [facility] Last Admin: 11/14/23 08:17 Dose: 5 mg Olanzapine (Olanzapine 10 Mg Vial) 10 mg IM BEDTIME PRN PRN Reason: if refuses bedtime PO zyprexa Olanzapine (Olanzapine 10 Mg Vial) 5 mg IM BID@0800,1500 PRN PRN Reason: if refuses 0800/1500 PO zyprexa Last Admin: 10/13/23 14:58 Dose: 5 mg Olanzapine (Olanzapine 10 Mg Tablet) 20 mg PO BEDTIME [facility] Last Admin: 11/13/23 21:26 Dose: 20 mg Polyethylene Glycol (Polyethylene Glycol 3350 17 Gm Powd.Pack) 17 gm PO DAILY PRN PRN Reason: Constipation Rilpivirine (Rilpivirine Hcl 25 Mg Tablet) 25 mg PO DAILY [facility] Last Admin: 11/14/23 08:17 Dose: 25 mg Thiamine HCl (Thiamine Hcl 100 Mg Tablet) 100 mg PO DAILY [facility] Last Admin: 11/14/23 08:17 Dose: 100 mg Trazodone HCl (Trazodone Hcl 50 Mg Tablet) 50 mg PO BEDTIME MRX1 PRN PRN Reason: Insomnia Last Admin: 11/11/23 21:23 Dose: 50 mg Allergies Allergies Allergy/AdvReac Type Severity Reaction Status Date / Time No Known Allergies Allergy Unverified 01/28/20 16:07 [No Known Allergies*] Assessment & Plan Assessment & Plan (1) Schizoaffective disorder, bipolar type: Status: Acute Code(s): F25.0 - Schizoaffective disorder, bipolar type Assessment and Plan: 11/01 mildly up - positive mood=- but less irritable than in past visits 11/02 CTP (2) Dementia: Status: Acute Code(s): F03.90 - Unspecified dementia, unspecified severity, without behavioral disturbance, psychotic disturbance, mood disturbance, and anxiety Assessment and Plan: 11/01 ongoing dementia continue with reorientation and distraction prn - (3) Noncompliance: Status: Acute Code(s): Z91.199 - Patient's noncompliance with other medical treatment and regimen due to unspecified reason Assessment and Plan: seems to be taking medication currently - watches nurse crush them and put in ice cream Plan The patient is an elderly male with a past history of schizoaffective disorder, dementia, HIV and other medical problems, chronically mentally ill resident of assisted living facility referred to this facility after he became non compliant with medications with daniella and psychosis. The patient was assessed by crisis and transferring to this facility for psychiatric stabilization. At the moment of the interview the patient was able to contract for safety. Plan 1. Gather collateral information. 2. Continue with regular medications, we are not going to change his Depakote, olanzapine and Haldol Decanoate. 3. Reassessment with results. 4. 15 minutes checks since the patient is able to contract for safety. 5. Change Zyprexa to Zydis to avoid cheeking on October 02. 6. IM zyprexa ordered 10 mg t.i.d. p.r.n. refusal of p.o. as per court order. Total dose up to 30 mg a day. 7. Zyprexa increased up to 15 mg p.o. q.h.s. to target daniella and psychosis. Started on October 15. Zyprexa was increased up to 20 mg p.o. q.h.s. on October 17. 8. Increase Haldol up to 5 mg p.o. t.i.d. on October 22 and keep Haldol Decanoate as per court order. 9. Medical certificate issued. 11/13 continue tx plan Reason for continued inpatient stay Substantial Risk for: harm to self and inability to function Time Spent With Patient Time: Total time managing care of this patient today ____ minutes.
[2023-11-14 20:00] VITALS: BP 97/62; PULSE 87; RESP 16; TEMP 36.4; O2SAT 93
[2023-11-14] MEDS: OLANZapine 10 MG TABLET 20 MG PO (20:35)
[2023-11-14] MEDS: Multivitamin TABLET 1 TAB PO (20:35)
[2023-11-14] MEDS: Mirtazapine 15 MG TABLET PO (20:35)
[2023-11-15 09:11] VITALS: BP 104/75; PULSE 79; RESP 15; TEMP 36.9; O2SAT 94
[2023-11-15] MEDS: levETIRAcetam 500 MG TABLET PO ×2 (09:14→20:45)
[2023-11-15] MEDS: Thiamine HCL 100 MG TABLET PO (09:14)
[2023-11-15] MEDS: Rilpivirine HCL 25 MG TABLET PO (09:14)
[2023-11-15] MEDS: HaloperidoL 5 MG TABLET PO ×3 (09:14→20:45)
[2023-11-15] MEDS: OLANZapine 5 MG TABLET PO ×2 (09:14→15:05)
[2023-11-15] MEDS: Emtricitabin/Tenofovir 200/300 TABLET 1 TAB PO (09:14)
[2023-11-15] MEDS: amLODIPine Besylate 5 MG TABLET PO (09:14)
[2023-11-15] MEDS: Divalproex Sodium Sprinkles 125 MG CAP.DR.SPR 250 MG PO ×3 (09:14→20:44)
--- NOTE | 2023-11-15 09:55 | HO.PSYCHPN ---
Subjective Subjective Date of Service: 11/15/23 Reason For Visit: F32.9 Subjective Notes: Conditional Voluntary Interim History: Pt slept through the night. VS stable. He is pleasant on approach. He reports he is good, and adds, thank you for asking, how are you? No overt psychosis or delusions noted or reported. He is taking medications as prescribed. Review of Systems Review of Systems General: No fevers, malaise, unintentional weight loss HEENT: No blurred vision, diplopia. No sore throat, nasal congestion, rhinorrhea, sinus pain, ear pain Cardiovascular: No chest pain, palpitations, or leg edema Respiratory: No shortness of breath, wheezing, cough GI: No abdominal pain, nausea, vomiting, diarrhea, constipation, melena, hematochezia : No dysuria, hematuria, increased urinary frequency, decreased urinary output MSK: No myalgia, back pain Neuro: No headaches, weakness, paresthesias Skin: No rashes or lesions Yes Unobtainable due to mental status Mental Status Exam Mental Status Exam Patient Appearance: Appropriate and Unkempt Patient Orientation: Person and Situation Level of Consciousness: Awake and Appropriate Patient Behavior: Guarded and Passive Mood Description: Withdrawn Affect Description: Constricted Patient Cognition Impaired: Yes Ability to Follow Directions: Good Speech Pattern: Clear Diagnostics Vital Signs (24Hr): Vital Signs - 24 hr 11/14/23 20:00 11/15/23 09:11 Temperature 97.6 F 98.5 F Pulse Rate 87 79 Respiratory Rate 16 15 Blood Pressure 97/62 104/75 Pulse Oximetry 93 94 Oxygen Delivery Method Room Air Room Air BMI result Body Mass Index 17.2 Medications Medications Current Medications Acetaminophen (Acetaminophen 325 Mg Tablet) 650 mg PO Q6H PRN PRN Reason: Pain (Scale Score 1-3) Al Hydroxide/Mg Hydroxide (Magnesium Hydrox/Alum Hydrox 30 Ml Oral.Susp) 30 ml PO Q6H PRN PRN Reason: Heartburn/Nausea Last Admin: 11/12/23 06:20 Dose: 30 ml Albuterol Sulfate (Albuterol Sulfate 90 Mcg 8 Gm Inhaler) 2 puff INHALE RQ4H PRN PRN Reason: Wheezing Amlodipine Besylate (Amlodipine Besylate 5 Mg Tablet) 5 mg PO DAILY [facility]; Protocol Last Admin: 11/15/23 09:14 Dose: 5 mg Divalproex Sodium (Divalproex Sodium Sprinkles 125 Mg ) 250 mg PO TID [facility] Last Admin: 11/15/23 09:14 Dose: 250 mg Emtricitabine/Tenofovir (Emtricitabin/Tenofovir 200/300 Tablet) 1 tab PO DAILY [facility] Last Admin: 11/15/23 09:14 Dose: 1 tab Haloperidol (Haloperidol 5 Mg Tablet) 5 mg PO TID [facility] Last Admin: 11/15/23 09:14 Dose: 5 mg Haloperidol Decanoate (Haloperidol Decanoate 50 Mg/Ml Vial) 100 mg IM Q28D [facility] Last Admin: 10/28/23 22:18 Dose: 100 mg Levetiracetam (Levetiracetam 500 Mg Tablet) 500 mg PO BID [facility] Last Admin: 11/15/23 09:14 Dose: 500 mg Magnesium Hydroxide (Milk Of Magnesia 30 Ml Oral.Susp) 30 ml PO DAILY PRN PRN Reason: Constipation Mirtazapine (Mirtazapine 15 Mg Tablet) 15 mg PO BEDTIME [facility] Last Admin: 11/14/23 20:35 Dose: 15 mg Multivitamins/Vitamin C (Multivitamin Tablet) 1 tab PO BEDTIME [facility] Last Admin: 11/14/23 20:35 Dose: 1 tab Nicotine Polacrilex (Nicotine Polacrilex 2 Mg Gum) 4 mg BUCCAL Q2H PRN PRN Reason: Nicotine Cravings Olanzapine (Olanzapine 5 Mg Tablet) 5 mg PO BID@0800,1500 [facility] Last Admin: 11/15/23 09:14 Dose: 5 mg Olanzapine (Olanzapine 10 Mg Vial) 10 mg IM BEDTIME PRN PRN Reason: if refuses bedtime PO zyprexa Olanzapine (Olanzapine 10 Mg Vial) 5 mg IM BID@0800,1500 PRN PRN Reason: if refuses 0800/1500 PO zyprexa Last Admin: 10/13/23 14:58 Dose: 5 mg Olanzapine (Olanzapine 10 Mg Tablet) 20 mg PO BEDTIME [facility] Last Admin: 11/14/23 20:35 Dose: 20 mg Polyethylene Glycol (Polyethylene Glycol 3350 17 Gm Powd.Pack) 17 gm PO DAILY PRN PRN Reason: Constipation Rilpivirine (Rilpivirine Hcl 25 Mg Tablet) 25 mg PO DAILY [facility] Last Admin: 11/15/23 09:14 Dose: 25 mg Thiamine HCl (Thiamine Hcl 100 Mg Tablet) 100 mg PO DAILY [facility] Last Admin: 11/15/23 09:14 Dose: 100 mg Trazodone HCl (Trazodone Hcl 50 Mg Tablet) 50 mg PO BEDTIME MRX1 PRN PRN Reason: Insomnia Last Admin: 11/11/23 21:23 Dose: 50 mg Allergies Allergies Allergy/AdvReac Type Severity Reaction Status Date / Time No Known Allergies Allergy Unverified 01/28/20 16:07 [No Known Allergies*] Assessment & Plan Assessment & Plan (1) Schizoaffective disorder, bipolar type: Status: Acute Code(s): F25.0 - Schizoaffective disorder, bipolar type Assessment and Plan: 11/01 mildly up - positive mood=- but less irritable than in past visits 11/02 CTP (2) Dementia: Status: Acute Code(s): F03.90 - Unspecified dementia, unspecified severity, without behavioral disturbance, psychotic disturbance, mood disturbance, and anxiety Assessment and Plan: 11/01 ongoing dementia continue with reorientation and distraction prn - (3) Noncompliance: Status: Acute Code(s): Z91.199 - Patient's noncompliance with other medical treatment and regimen due to unspecified reason Assessment and Plan: seems to be taking medication currently - watches nurse crush them and put in ice cream Plan The patient is an elderly male with a past history of schizoaffective disorder, dementia, HIV and other medical problems, chronically mentally ill resident of assisted living facility referred to this facility after he became non compliant with medications with daniella and psychosis. The patient was assessed by crisis and transferring to this facility for psychiatric stabilization. At the moment of the interview the patient was able to contract for safety. Plan 1. Gather collateral information. 2. Continue with regular medications, we are not going to change his Depakote, olanzapine and Haldol Decanoate. 3. Reassessment with results. 4. 15 minutes checks since the patient is able to contract for safety. 5. Change Zyprexa to Zydis to avoid cheeking on October 02. 6. IM zyprexa ordered 10 mg t.i.d. p.r.n. refusal of p.o. as per court order. Total dose up to 30 mg a day. 7. Zyprexa increased up to 15 mg p.o. q.h.s. to target daniella and psychosis. Started on October 15. Zyprexa was increased up to 20 mg p.o. q.h.s. on October 17. 8. Increase Haldol up to 5 mg p.o. t.i.d. on October 22 and keep Haldol Decanoate as per court order. 9. Medical certificate issued. 11/13 continue tx plan 11/14 continue tx. Reason for continued inpatient stay Substantial Risk for: inability to function Time Spent With Patient Time: Total time managing care of this patient today ____ minutes.
[2023-11-15 20:00] VITALS: BP 91/64; PULSE 81; RESP 17; TEMP 36.4; O2SAT 95
[2023-11-15] MEDS: OLANZapine 10 MG TABLET 20 MG PO (20:45)
[2023-11-15] MEDS: Multivitamin TABLET 1 TAB PO (20:45)
[2023-11-15] MEDS: Mirtazapine 15 MG TABLET PO (20:45)
[2023-11-16 08:05] VITALS: BP 121/85; PULSE 100; RESP 18; TEMP 36.6; O2SAT 95
[2023-11-16] MEDS: levETIRAcetam 500 MG TABLET PO ×2 (08:29→20:37)
[2023-11-16] MEDS: Emtricitabin/Tenofovir 200/300 TABLET 1 TAB PO (08:29)
[2023-11-16] MEDS: amLODIPine Besylate 5 MG TABLET PO (08:29)
[2023-11-16] MEDS: Divalproex Sodium Sprinkles 125 MG CAP.DR.SPR 250 MG PO ×3 (08:30→20:37)
[2023-11-16] MEDS: HaloperidoL 5 MG TABLET PO ×3 (08:30→20:37)
[2023-11-16] MEDS: OLANZapine 5 MG TABLET PO ×2 (08:30→14:46)
[2023-11-16] MEDS: Rilpivirine HCL 25 MG TABLET PO (08:30)
[2023-11-16] MEDS: Thiamine HCL 100 MG TABLET PO (08:30)
--- NOTE | 2023-11-16 10:57 | P.PNPSI_ITS ---
Subjective Subjective Date of Service: 11/16/23 Reason For Visit: F32.9 Interim History: pleasant, superficial, no requests or complaints. per staff, eating 50%, sleeps all the time. Mental Status Exam Mental Status Exam Patient Appearance: Appropriate and Unkempt Patient Orientation: Person and Situation Level of Consciousness: Awake and Appropriate Patient Behavior: Guarded and Passive Mood Description: Withdrawn Affect Description: Constricted Patient Cognition Impaired: Yes Ability to Follow Directions: Good Speech Pattern: Clear Diagnostics Vital Signs (24Hr): Vital Signs - 24 hr 11/15/23 20:00 11/16/23 08:05 Temperature 97.5 F 97.9 F Pulse Rate 81 100 Respiratory Rate 17 18 Blood Pressure 91/64 121/85 Pulse Oximetry 95 95 Oxygen Delivery Method Room Air Room Air BMI result Body Mass Index 17.2 Medications Medications Current Medications Acetaminophen (Acetaminophen 325 Mg Tablet) 650 mg PO Q6H PRN PRN Reason: Pain (Scale Score 1-3) Al Hydroxide/Mg Hydroxide (Magnesium Hydrox/Alum Hydrox 30 Ml Oral.Susp) 30 ml PO Q6H PRN PRN Reason: Heartburn/Nausea Last Admin: 11/12/23 06:20 Dose: 30 ml Albuterol Sulfate (Albuterol Sulfate 90 Mcg 8 Gm Inhaler) 2 puff INHALE RQ4H PRN PRN Reason: Wheezing Amlodipine Besylate (Amlodipine Besylate 5 Mg Tablet) 5 mg PO DAILY [facility]; Protocol Last Admin: 11/16/23 08:29 Dose: 5 mg Divalproex Sodium (Divalproex Sodium Sprinkles 125 Mg ) 250 mg PO TID [facility] Last Admin: 11/16/23 08:30 Dose: 250 mg Emtricitabine/Tenofovir (Emtricitabin/Tenofovir 200/300 Tablet) 1 tab PO DAILY [facility] Last Admin: 11/16/23 08:29 Dose: 1 tab Haloperidol (Haloperidol 5 Mg Tablet) 5 mg PO TID [facility] Last Admin: 11/16/23 08:30 Dose: 5 mg Haloperidol Decanoate (Haloperidol Decanoate 50 Mg/Ml Vial) 100 mg IM Q28D [facility] Last Admin: 10/28/23 22:18 Dose: 100 mg Levetiracetam (Levetiracetam 500 Mg Tablet) 500 mg PO BID [facility] Last Admin: 11/16/23 08:29 Dose: 500 mg Magnesium Hydroxide (Milk Of Magnesia 30 Ml Oral.Susp) 30 ml PO DAILY PRN PRN Reason: Constipation Mirtazapine (Mirtazapine 15 Mg Tablet) 15 mg PO BEDTIME [facility] Last Admin: 11/15/23 20:45 Dose: 15 mg Multivitamins/Vitamin C (Multivitamin Tablet) 1 tab PO BEDTIME [facility] Last Admin: 11/15/23 20:45 Dose: 1 tab Nicotine Polacrilex (Nicotine Polacrilex 2 Mg Gum) 4 mg BUCCAL Q2H PRN PRN Reason: Nicotine Cravings Olanzapine (Olanzapine 5 Mg Tablet) 5 mg PO BID@0800,1500 [facility] Last Admin: 11/16/23 08:30 Dose: 5 mg Olanzapine (Olanzapine 10 Mg Vial) 10 mg IM BEDTIME PRN PRN Reason: if refuses bedtime PO zyprexa Olanzapine (Olanzapine 10 Mg Vial) 5 mg IM BID@0800,1500 PRN PRN Reason: if refuses 0800/1500 PO zyprexa Last Admin: 10/13/23 14:58 Dose: 5 mg Olanzapine (Olanzapine 10 Mg Tablet) 20 mg PO BEDTIME [facility] Last Admin: 11/15/23 20:45 Dose: 20 mg Polyethylene Glycol (Polyethylene Glycol 3350 17 Gm Powd.Pack) 17 gm PO DAILY PRN PRN Reason: Constipation Rilpivirine (Rilpivirine Hcl 25 Mg Tablet) 25 mg PO DAILY [facility] Last Admin: 11/16/23 08:30 Dose: 25 mg Thiamine HCl (Thiamine Hcl 100 Mg Tablet) 100 mg PO DAILY [facility] Last Admin: 11/16/23 08:30 Dose: 100 mg Trazodone HCl (Trazodone Hcl 50 Mg Tablet) 50 mg PO BEDTIME MRX1 PRN PRN Reason: Insomnia Last Admin: 11/11/23 21:23 Dose: 50 mg Allergies Allergies Allergy/AdvReac Type Severity Reaction Status Date / Time No Known Allergies Allergy Unverified 01/28/20 16:07 [No Known Allergies*] Assessment & Plan Assessment & Plan (1) Schizoaffective disorder, bipolar type: Status: Acute Code(s): F25.0 - Schizoaffective disorder, bipolar type Assessment and Plan: 11/01 mildly up - positive mood=- but less irritable than in past visits 11/02 CTP (2) Dementia: Status: Acute Code(s): F03.90 - Unspecified dementia, unspecified severity, without behavioral disturbance, psychotic disturbance, mood disturbance, and anxiety Assessment and Plan: 11/01 ongoing dementia continue with reorientation and distraction prn - (3) Noncompliance: Status: Acute Code(s): Z91.199 - Patient's noncompliance with other medical treatment and regimen due to unspecified reason Assessment and Plan: seems to be taking medication currently - watches nurse crush them and put in ice cream Plan The patient is an elderly male with a past history of schizoaffective disorder, dementia, HIV and other medical problems, chronically mentally ill resident of assisted living facility referred to this facility after he became non compliant with medications with daniella and psychosis. The patient was assessed by crisis and transferring to this facility for psychiatric stabilization. At the moment of the interview the patient was able to contract for safety. Plan 1. Gather collateral information. 2. Continue with regular medications, we are not going to change his Depakote, olanzapine and Haldol Decanoate. 3. Reassessment with results. 4. 15 minutes checks since the patient is able to contract for safety. 5. Change Zyprexa to Zydis to avoid cheeking on October 02. 6. IM zyprexa ordered 10 mg t.i.d. p.r.n. refusal of p.o. as per court order. Total dose up to 30 mg a day. 7. Zyprexa increased up to 15 mg p.o. q.h.s. to target daniella and psychosis. Started on October 15. Zyprexa was increased up to 20 mg p.o. q.h.s. on October 17. 8. Increase Haldol up to 5 mg p.o. t.i.d. on October 22 and keep Haldol Decanoate as per court order. 9. Medical certificate issued. 11/13 continue tx plan 11/14 continue tx. 11/15: stable presentation. continue current mgmt. Reason for continued inpatient stay Substantial Risk for: inability to function and rapid decompensation Time Spent With Patient Time: Total time managing care of this patient today ____ minutes.
[2023-11-16 20:00] VITALS: BP 119/56; PULSE 79; RESP 16; TEMP 36.5; O2SAT 94
[2023-11-16] MEDS: Mirtazapine 15 MG TABLET PO (20:37)
[2023-11-16] MEDS: Multivitamin TABLET 1 TAB PO (20:37)
[2023-11-16] MEDS: OLANZapine 10 MG TABLET 20 MG PO (20:37)
[2023-11-17 08:05] VITALS: BP 127/67; PULSE 93; RESP 16; TEMP 36.6; O2SAT 97
[2023-11-17] MEDS: Rilpivirine HCL 25 MG TABLET PO (08:22)
[2023-11-17] MEDS: OLANZapine 5 MG TABLET PO ×2 (08:22→14:43)
[2023-11-17] MEDS: Emtricitabin/Tenofovir 200/300 TABLET 1 TAB PO (08:22)
[2023-11-17] MEDS: Divalproex Sodium Sprinkles 125 MG CAP.DR.SPR 250 MG PO ×3 (08:22→20:42)
[2023-11-17] MEDS: amLODIPine Besylate 5 MG TABLET PO (08:22)
[2023-11-17] MEDS: HaloperidoL 5 MG TABLET PO ×3 (08:22→20:43)
[2023-11-17] MEDS: Thiamine HCL 100 MG TABLET PO (08:22)
[2023-11-17] MEDS: levETIRAcetam 500 MG TABLET PO ×2 (08:22→20:43)
--- NOTE | 2023-11-17 10:53 | HO.PSYCHPN ---
Subjective Subjective Date of Service: 11/17/23 Reason For Visit: F32.9 Interim History: no questions or complaints. per staff, isolative. taking meds and meals. sleeping. Mental Status Exam Mental Status Exam Patient Appearance: Appropriate and Unkempt Patient Orientation: Person and Situation Level of Consciousness: Awake and Appropriate Patient Behavior: Guarded and Passive Mood Description: Withdrawn Affect Description: Constricted Patient Cognition Impaired: Yes Ability to Follow Directions: Good Speech Pattern: Clear Diagnostics Vital Signs (24Hr): Vital Signs - 24 hr 11/16/23 20:00 11/17/23 08:05 Temperature 97.7 F 97.9 F Pulse Rate 79 93 Respiratory Rate 16 16 Blood Pressure 119/56 L 127/67 Pulse Oximetry 94 97 Oxygen Delivery Method Room Air Room Air BMI result Body Mass Index 17.2 Medications Medications Current Medications Acetaminophen (Acetaminophen 325 Mg Tablet) 650 mg PO Q6H PRN PRN Reason: Pain (Scale Score 1-3) Al Hydroxide/Mg Hydroxide (Magnesium Hydrox/Alum Hydrox 30 Ml Oral.Susp) 30 ml PO Q6H PRN PRN Reason: Heartburn/Nausea Last Admin: 11/12/23 06:20 Dose: 30 ml Albuterol Sulfate (Albuterol Sulfate 90 Mcg 8 Gm Inhaler) 2 puff INHALE RQ4H PRN PRN Reason: Wheezing Amlodipine Besylate (Amlodipine Besylate 5 Mg Tablet) 5 mg PO DAILY [facility]; Protocol Last Admin: 11/17/23 08:22 Dose: 5 mg Divalproex Sodium (Divalproex Sodium Sprinkles 125 Mg ) 250 mg PO TID [facility] Last Admin: 11/17/23 08:22 Dose: 250 mg Emtricitabine/Tenofovir (Emtricitabin/Tenofovir 200/300 Tablet) 1 tab PO DAILY [facility] Last Admin: 11/17/23 08:22 Dose: 1 tab Haloperidol (Haloperidol 5 Mg Tablet) 5 mg PO TID [facility] Last Admin: 11/17/23 08:22 Dose: 5 mg Haloperidol Decanoate (Haloperidol Decanoate 50 Mg/Ml Vial) 100 mg IM Q28D [facility] Last Admin: 10/28/23 22:18 Dose: 100 mg Levetiracetam (Levetiracetam 500 Mg Tablet) 500 mg PO BID [facility] Last Admin: 11/17/23 08:22 Dose: 500 mg Magnesium Hydroxide (Milk Of Magnesia 30 Ml Oral.Susp) 30 ml PO DAILY PRN PRN Reason: Constipation Mirtazapine (Mirtazapine 15 Mg Tablet) 15 mg PO BEDTIME [facility] Last Admin: 11/16/23 20:37 Dose: 15 mg Multivitamins/Vitamin C (Multivitamin Tablet) 1 tab PO BEDTIME [facility] Last Admin: 11/16/23 20:37 Dose: 1 tab Nicotine Polacrilex (Nicotine Polacrilex 2 Mg Gum) 4 mg BUCCAL Q2H PRN PRN Reason: Nicotine Cravings Olanzapine (Olanzapine 5 Mg Tablet) 5 mg PO BID@0800,1500 [facility] Last Admin: 11/17/23 08:22 Dose: 5 mg Olanzapine (Olanzapine 10 Mg Vial) 10 mg IM BEDTIME PRN PRN Reason: if refuses bedtime PO zyprexa Olanzapine (Olanzapine 10 Mg Vial) 5 mg IM BID@0800,1500 PRN PRN Reason: if refuses 0800/1500 PO zyprexa Last Admin: 10/13/23 14:58 Dose: 5 mg Olanzapine (Olanzapine 10 Mg Tablet) 20 mg PO BEDTIME [facility] Last Admin: 11/16/23 20:37 Dose: 20 mg Polyethylene Glycol (Polyethylene Glycol 3350 17 Gm Powd.Pack) 17 gm PO DAILY PRN PRN Reason: Constipation Rilpivirine (Rilpivirine Hcl 25 Mg Tablet) 25 mg PO DAILY [facility] Last Admin: 11/17/23 08:22 Dose: 25 mg Thiamine HCl (Thiamine Hcl 100 Mg Tablet) 100 mg PO DAILY [facility] Last Admin: 11/17/23 08:22 Dose: 100 mg Trazodone HCl (Trazodone Hcl 50 Mg Tablet) 50 mg PO BEDTIME MRX1 PRN PRN Reason: Insomnia Last Admin: 11/11/23 21:23 Dose: 50 mg Allergies Allergies Allergy/AdvReac Type Severity Reaction Status Date / Time No Known Allergies Allergy Unverified 01/28/20 16:07 [No Known Allergies*] Assessment & Plan Assessment & Plan (1) Schizoaffective disorder, bipolar type: Status: Acute Code(s): F25.0 - Schizoaffective disorder, bipolar type Assessment and Plan: 11/01 mildly up - positive mood=- but less irritable than in past visits 11/02 CTP (2) Dementia: Status: Acute Code(s): F03.90 - Unspecified dementia, unspecified severity, without behavioral disturbance, psychotic disturbance, mood disturbance, and anxiety Assessment and Plan: 11/01 ongoing dementia continue with reorientation and distraction prn - (3) Noncompliance: Status: Acute Code(s): Z91.199 - Patient's noncompliance with other medical treatment and regimen due to unspecified reason Assessment and Plan: seems to be taking medication currently - watches nurse crush them and put in ice cream Plan The patient is an elderly male with a past history of schizoaffective disorder, dementia, HIV and other medical problems, chronically mentally ill resident of assisted living facility referred to this facility after he became non compliant with medications with daniella and psychosis. The patient was assessed by crisis and transferring to this facility for psychiatric stabilization. At the moment of the interview the patient was able to contract for safety. Plan 1. Gather collateral information. 2. Continue with regular medications, we are not going to change his Depakote, olanzapine and Haldol Decanoate. 3. Reassessment with results. 4. 15 minutes checks since the patient is able to contract for safety. 5. Change Zyprexa to Zydis to avoid cheeking on October 02. 6. IM zyprexa ordered 10 mg t.i.d. p.r.n. refusal of p.o. as per court order. Total dose up to 30 mg a day. 7. Zyprexa increased up to 15 mg p.o. q.h.s. to target daniella and psychosis. Started on October 15. Zyprexa was increased up to 20 mg p.o. q.h.s. on October 17. 8. Increase Haldol up to 5 mg p.o. t.i.d. on October 22 and keep Haldol Decanoate as per court order. 9. Medical certificate issued. 11/13 continue tx plan 11/14 continue tx. 11/15: stable presentation. continue current mgmt. 11/16: no change. Reason for continued inpatient stay Substantial Risk for: inability to function Time Spent With Patient Time: Total time managing care of this patient today ____ minutes.
[2023-11-17 20:00] VITALS: BP 90/60; PULSE 92; RESP 16; TEMP 36.3; O2SAT 96
[2023-11-17] MEDS: Mirtazapine 15 MG TABLET PO (20:43)
[2023-11-17] MEDS: Multivitamin TABLET 1 TAB PO (20:43)
[2023-11-17] MEDS: OLANZapine 10 MG TABLET 20 MG PO (20:43)
[2023-11-18 07:48] VITALS: BP 119/75; PULSE 94; RESP 18; TEMP 36; O2SAT 95
[2023-11-18] MEDS: Divalproex Sodium Sprinkles 125 MG CAP.DR.SPR 250 MG PO ×3 (08:42→21:05)
[2023-11-18] MEDS: OLANZapine 5 MG TABLET PO ×2 (08:42→15:19)
[2023-11-18] MEDS: Rilpivirine HCL 25 MG TABLET PO (08:42)
[2023-11-18] MEDS: HaloperidoL 5 MG TABLET PO ×3 (08:42→21:05)
[2023-11-18] MEDS: Thiamine HCL 100 MG TABLET PO (08:42)
[2023-11-18] MEDS: levETIRAcetam 500 MG TABLET PO ×2 (08:42→21:05)
[2023-11-18] MEDS: amLODIPine Besylate 5 MG TABLET PO (08:42)
[2023-11-18] MEDS: Emtricitabin/Tenofovir 200/300 TABLET 1 TAB PO (08:42)
--- NOTE | 2023-11-18 14:54 | P.PNPSI_ITS ---
Subjective Subjective Date of Service: 11/18/23 Reason For Visit: F32.9 Subjective Notes: Conditional Voluntary Interim History: The nursing staff reported the patient had been compliant with treatment, no changes in mental status. On interview the patient denies new symptoms, waiting for placement Mental Status Exam Mental Status Exam Patient Appearance: Appropriate Patient Orientation: Person and Situation Level of Consciousness: Awake and Appropriate Patient Behavior: Guarded and Passive Mood Description: Withdrawn Affect Description: Constricted Patient Cognition Impaired: Yes Ability to Follow Directions: Good Speech Pattern: Clear Hallucinations: None Delusions: Not Present Thought Process: Distracted and Slowed Thinking Thought Content: positive for [place] and positive for Poverty of Content Judgement: Fair Diagnostics Vital Signs (24Hr): Vital Signs - 24 hr 11/17/23 20:00 11/18/23 07:48 Temperature 97.4 F 96.8 F Pulse Rate 92 94 Respiratory Rate 16 18 Blood Pressure 90/60 119/75 Pulse Oximetry 96 95 Oxygen Delivery Method Room Air Room Air BMI result Body Mass Index 17.2 Medications Medications Current Medications Acetaminophen (Acetaminophen 325 Mg Tablet) 650 mg PO Q6H PRN PRN Reason: Pain (Scale Score 1-3) Al Hydroxide/Mg Hydroxide (Magnesium Hydrox/Alum Hydrox 30 Ml Oral.Susp) 30 ml PO Q6H PRN PRN Reason: Heartburn/Nausea Last Admin: 11/12/23 06:20 Dose: 30 ml Albuterol Sulfate (Albuterol Sulfate 90 Mcg 8 Gm Inhaler) 2 puff INHALE RQ4H P RN PRN Reason: Wheezing Amlodipine Besylate (Amlodipine Besylate 5 Mg Tablet) 5 mg PO DAILY [facility]; Protocol Last Admin: 11/18/23 08:42 Dose: 5 mg Divalproex Sodium (Divalproex Sodium Sprinkles 125 Mg ) 250 mg PO TID [facility] Last Admin: 11/18/23 08:42 Dose: 250 mg Emtricitabine/Tenofovir (Emtricitabin/Tenofovir 200/300 Tablet) 1 tab PO DAILY [facility] Last Admin: 11/18/23 08:42 Dose: 1 tab Haloperidol (Haloperidol 5 Mg Tablet) 5 mg PO TID [facility] Last Admin: 11/18/23 08:42 Dose: 5 mg Haloperidol Decanoate (Haloperidol Decanoate 50 Mg/Ml Vial) 100 mg IM Q28D [facility] Last Admin: 10/28/23 22:18 Dose: 100 mg Levetiracetam (Levetiracetam 500 Mg Tablet) 500 mg PO BID [facility] Last Admin: 11/18/23 08:42 Dose: 500 mg Magnesium Hydroxide (Milk Of Magnesia 30 Ml Oral.Susp) 30 ml PO DAILY PRN PRN Reason: Constipation Mirtazapine (Mirtazapine 15 Mg Tablet) 15 mg PO BEDTIME [facility] Last Admin: 11/17/23 20:43 Dose: 15 mg Multivitamins/Vitamin C (Multivitamin Tablet) 1 tab PO BEDTIME [facility] Last Admin: 11/17/23 20:43 Dose: 1 tab Nicotine Polacrilex (Nicotine Polacrilex 2 Mg Gum) 4 mg BUCCAL Q2H PRN PRN Reason: Nicotine Cravings Olanzapine (Olanzapine 5 Mg Tablet) 5 mg PO BID@0800,1500 [facility] Last Admin: 11/18/23 08:42 Dose: 5 mg Olanzapine (Olanzapine 10 Mg Vial) 10 mg IM BEDTIME PRN PRN Reason: if refuses bedtime PO zyprexa Olanzapine (Olanzapine 10 Mg Vial) 5 mg IM BID@0800,1500 PRN PRN Reason: if refuses 0800/1500 PO zyprexa Last Admin: 10/13/23 14:58 Dose: 5 mg Olanzapine (Olanzapine 10 Mg Tablet) 20 mg PO BEDTIME [facility] Last Admin: 11/17/23 20:43 Dose: 20 mg Polyethylene Glycol (Polyethylene Glycol 3350 17 Gm Powd.Pack) 17 gm PO DAILY PRN PRN Reason: Constipation Rilpivirine (Rilpivirine Hcl 25 Mg Tablet) 25 mg PO DAILY [facility] Last Admin: 11/18/23 08:42 Dose: 25 mg Thiamine HCl (Thiamine Hcl 100 Mg Tablet) 100 mg PO DAILY [facility] Last Admin: 11/18/23 08:42 Dose: 100 mg Trazodone HCl (Trazodone Hcl 50 Mg Tablet) 50 mg PO BEDTIME MRX1 PRN PRN Reason: Insomnia Last Admin: 11/11/23 21:23 Dose: 50 mg Allergies Allergies Allergy/AdvReac Type Severity Reaction Status Date / Time No Known Allergies Allergy Unverified 01/28/20 16:07 [No Known Allergies*] Assessment & Plan Assessment & Plan (1) Schizoaffective disorder, bipolar type: Status: Acute Code(s): F25.0 - Schizoaffective disorder, bipolar type Assessment and Plan: 11/01 mildly up - positive mood=- but less irritable than in past visits 11/02 CTP (2) Dementia: Status: Acute Code(s): F03.90 - Unspecified dementia, unspecified severity, without behavioral disturbance, psychotic disturbance, mood disturbance, and anxiety Assessment and Plan: 11/01 ongoing dementia continue with reorientation and distraction prn - (3) Noncompliance: Status: Acute Code(s): Z91.199 - Patient's noncompliance with other medical treatment and regimen due to unspecified reason Assessment and Plan: seems to be taking medication currently - watches nurse crush them and put in ice cream Plan The patient is an elderly male with a past history of schizoaffective disorder, dementia, HIV and other medical problems, chronically mentally ill resident of assisted living facility referred to this facility after he became non compliant with medications with daniella and psychosis. The patient was assessed by crisis and transferring to this facility for psychiatric stabilization. At the moment of the interview the patient was able to contract for safety. Plan 1. Gather collateral information. 2. Continue with regular medications, we are not going to change his Depakote, olanzapine and Haldol Decanoate. 3. Reassessment with results. 4. 15 minutes checks since the patient is able to contract for safety. 5. Change Zyprexa to Zydis to avoid cheeking on October 02. 6. IM zyprexa ordered 10 mg t.i.d. p.r.n. refusal of p.o. as per court order. Total dose up to 30 mg a day. 7. Zyprexa increased up to 15 mg p.o. q.h.s. to target daniella and psychosis. Started on October 15. Zyprexa was increased up to 20 mg p.o. q.h.s. on October 17. 8. Increase Haldol up to 5 mg p.o. t.i.d. on October 22 and keep Haldol Decanoate as per court order. 9. Medical certificate issued. 10. Blood work for tomorrow morning Reason for continued inpatient stay Substantial Risk for: inability to function, rapid decompensation and med/psych decompensation Time Spent With Patient Time: Total time managing care of this patient today __20__ minutes.
[2023-11-18 20:00] VITALS: BP 102/68; PULSE 91; RESP 17; TEMP 36.2; O2SAT 94
[2023-11-18] MEDS: Mirtazapine 15 MG TABLET PO (21:05)
[2023-11-18] MEDS: Multivitamin TABLET 1 TAB PO (21:05)
[2023-11-18] MEDS: OLANZapine 10 MG TABLET 20 MG PO (21:05)
[2023-11-19 07:41] VITALS: BP 100/76; PULSE 87; RESP 16; TEMP 36.5; O2SAT 98
[2023-11-19] MEDS: Thiamine HCL 100 MG TABLET PO (08:31)
[2023-11-19] MEDS: Divalproex Sodium Sprinkles 125 MG CAP.DR.SPR 250 MG PO ×3 (08:32→21:25)
[2023-11-19] MEDS: Emtricitabin/Tenofovir 200/300 TABLET 1 TAB PO (08:32)
[2023-11-19] MEDS: HaloperidoL 5 MG TABLET PO ×3 (08:32→21:26)
[2023-11-19] MEDS: Rilpivirine HCL 25 MG TABLET PO (08:32)
[2023-11-19] MEDS: levETIRAcetam 500 MG TABLET PO ×2 (08:32→21:26)
[2023-11-19] MEDS: amLODIPine Besylate 5 MG TABLET PO (08:33)
[2023-11-19] MEDS: OLANZapine 5 MG TABLET PO ×2 (08:33→15:24)
[2023-11-19 08:36] LABS: Basophils Percent Auto 0.4 % (0-2); Eosinophils Absolute Auto 0.1 X10*3/uL (0.0-0.4); Eosinophils Percent Auto 2.5 % (0-4); Hematocrit 46.8 % (42.0-52.0); Hemoglobin 14.9 g/dl (14.0-18.0); Imm Gran Abs Auto 0.05 X10*3/uL (0.00-0.03); Imm Gran Pct Auto 1.1 % (0.0-0.4); Lymphocytes Absolute Auto 2.9 X10*3/uL (1.2-4.9); Lymphocytes Percent Auto 60.2 % (20-40); MANUAL DIFF FLAG SCAN; Mean Corpuscular HGB Conc 31.8 g/dl (31.0-36.0); Mean Corpuscular Hemoglobin 31.2 pg (27.0-33.0); Mean Corpuscular Volume 97.9 fL (80.0-98.0); Monocytes Absolute Auto 0.5 X10*3/uL (0.1-1.2); Monocytes Percent Auto 10.1 % (2-11); Neutrophils Absolute Auto 1.2 x10*3/uL (2.0-8.3); Neutrophils Percent Auto 25.7 % (45-73); Red Blood Count 4.78 X10*6/uL (4.60-5.80); Red Cell Distribution Width 13.4 % (11.0-16.0); SCAN SMEAR FLAG 1; White Blood Count 4.8 X10*3/uL (4.8-10.8)
[2023-11-19 08:43] LABS: Valproate 43.9 mcg/mL (50.0-100.0)
[2023-11-19 08:45] LABS: Alanine Aminotransferase 39 U/L (0-40); Albumin Level 3.4 g/dL (3.5-5.0); Alkaline Phosphatase 77 U/L (39-117); Anion Gap 11 (12-20); Aspartate Amino Transferase 59 U/L (5-37); Bilirubin Total 0.3 mg/dL (0.0-1.0); Blood Urea Nitrogen 23 mg/dL (9-16); Calcium 9.6 mg/dL (8.4-10.2); Carbon Dioxide 27 mmol/L (22-29); Chloride 108 mmol/L (96-108); Creatinine Clr Calc Pharmacy 64.5; Estimated Glomerular Filt Rate > 60; Glucose Fasting 90 mg/dL (60-99); Potassium 4.2 mmol/L (3.3-5.1); Sodium 142 mmol/L (135-145); Total Protein 8.4 g/dL (6.5-8.0)
[2023-11-19 08:58] LABS: Mean Platelet Volume 9.5 fL (9.4-12.4); Platelet Count 144 X10*3/uL (160-400); SLIDE REVIEW VERIFIED
--- NOTE | 2023-11-19 15:58 | P.PNPSI_ITS ---
Subjective Subjective Date of Service: 11/19/23 Reason For Visit: F32.9 Subjective Notes: Conditional Voluntary Interim History: The nursing staff reported the patient had been compliant with treatment no changes in mental status. On interview the patient denies new symptoms, waiting for placement Mental Status Exam Mental Status Exam Patient Appearance: Well Grooomed Patient Orientation: Person and Situation Level of Consciousness: Awake and Appropriate Patient Behavior: Guarded and Passive Mood Description: Withdrawn Affect Description: Constricted Patient Cognition Impaired: Yes Ability to Follow Directions: Good Speech Pattern: Clear Hallucinations: None Delusions: Not Present Thought Process: Distracted and Slowed Thinking Thought Content: positive for [place] Judgement: Poor Diagnostics Vital Signs (24Hr): Vital Signs - 24 hr 11/18/23 20:00 11/19/23 07:41 Temperature 97.1 F 97.7 F Pulse Rate 91 87 Respiratory Rate 17 16 Blood Pressure 102/68 100/76 Pulse Oximetry 94 98 Oxygen Delivery Method Room Air Room Air BMI result Body Mass Index 17.2 Labs 11/19/23 08:03 11/19/23 08:03 Labs: Laboratory Results - last 48 hr 11/19/23 08:03 WBC 4.8 RBC 4.78 Hgb 14.9 Hct 46.8 MCV 97.9 MCH 31.2 MCHC 31.8 RDW 13.4 Plt Count 144 L D MPV 9.5 Immature Gran % (Auto) 1.1 H Neut % (Auto) 25.7 L Lymph % (Auto) 60.2 H [place] % (Auto) 10.1 Eos % (Auto) 2.5 Baso % (Auto) 0.4 Lymph # (Auto) 2.9 [place] # (Auto) 0.5 Eos # (Auto) 0.1 Baso # (Auto) 0.0 Abs Immat Gran (auto) 0.05 H Absolute Neuts (auto) 1.2 L Absolute Nucleated RBC 0.000 Nucleated RBC % (auto) 0.0 Smear Tech's Comments VERIFIED Sodium 142 Potassium 4.2 Chloride 108 Carbon Dioxide 27 Anion Gap 11 L BUN 23 H Creatinine 0.84 Estim Creat Clear Calc 64.5 Estimated GFR > 60 Fasting Glucose 90 Calcium 9.6 Total Bilirubin 0.3 AST 59 H ALT 39 Alkaline Phosphatase 77 Total Protein 8.4 H Albumin 3.4 L Valproic Acid 43.9 L Medications Medications Current Medications Acetaminophen (Acetaminophen 325 Mg Tablet) 650 mg PO Q6H PRN PRN Reason: Pain (Scale Score 1-3) Al Hydroxide/Mg Hydroxide (Magnesium Hydrox/Alum Hydrox 30 Ml Oral.Susp) 30 ml PO Q6H PRN PRN Reason: Heartburn/Nausea Last Admin: 11/12/23 06:20 Dose: 30 ml Albuterol Sulfate (Albuterol Sulfate 90 Mcg 8 Gm Inhaler) 2 puff INHALE RQ4H PRN PRN Reason: Wheezing Amlodipine Besylate (Amlodipine Besylate 5 Mg Tablet) 5 mg PO DAILY [facility]; Protocol Last Admin: 11/19/23 08:33 Dose: 5 mg Divalproex Sodium (Divalproex Sodium Sprinkles 125 Mg ) 250 mg PO TID [facility] Last Admin: 11/19/23 15:24 Dose: 250 mg Emtricitabine/Tenofovir (Emtricitabin/Tenofovir 200/300 Tablet) 1 tab PO DAILY [facility] Last Admin: 11/19/23 08:32 Dose: 1 tab Haloperidol (Haloperidol 5 Mg Tablet) 5 mg PO TID [facility] Last Admin: 11/19/23 15:24 Dose: 5 mg Haloperidol Decanoate (Haloperidol Decanoate 50 Mg/Ml Vial) 100 mg IM Q28D [facility] Last Admin: 10/28/23 22:18 Dose: 100 mg Levetiracetam (Levetiracetam 500 Mg Tablet) 500 mg PO BID [facility] Last Admin: 11/19/23 08:32 Dose: 500 mg Magnesium Hydroxide (Milk Of Magnesia 30 Ml Oral.Susp) 30 ml PO DAILY PRN PRN Reason: Constipation Mirtazapine (Mirtazapine 15 Mg Tablet) 15 mg PO BEDTIME [facility] Last Admin: 11/18/23 21:05 Dose: 15 mg Multivitamins/Vitamin C (Multivitamin Tablet) 1 tab PO BEDTIME [facility] Last Admin: 11/18/23 21:05 Dose: 1 tab Nicotine Polacrilex (Nicotine Polacrilex 2 Mg Gum) 4 mg BUCCAL Q2H PRN PRN Reason: Nicotine Cravings Olanzapine (Olanzapine 5 Mg Tablet) 5 mg PO BID@0800,1500 [facility] Last Admin: 11/19/23 15:24 Dose: 5 mg Olanzapine (Olanzapine 10 Mg Vial) 10 mg IM BEDTIME PRN PRN Reason: if refuses bedtime PO zyprexa Olanzapine (Olanzapine 10 Mg Vial) 5 mg IM BID@0800,1500 PRN PRN Reason: if refuses 0800/1500 PO zyprexa Last Admin: 10/13/23 14:58 Dose: 5 mg Olanzapine (Olanzapine 10 Mg Tablet) 20 mg PO BEDTIME [facility] Last Admin: 11/18/23 21:05 Dose: 20 mg Polyethylene Glycol (Polyethylene Glycol 3350 17 Gm Powd.Pack) 17 gm PO DAILY PRN PRN Reason: Constipation Rilpivirine (Rilpivirine Hcl 25 Mg Tablet) 25 mg PO DAILY [facility] Last Admin: 11/19/23 08:32 Dose: 25 mg Thiamine HCl (Thiamine Hcl 100 Mg Tablet) 100 mg PO DAILY [facility] Last Admin: 11/19/23 08:31 Dose: 100 mg Trazodone HCl (Trazodone Hcl 50 Mg Tablet) 50 mg PO BEDTIME MRX1 PRN PRN Reason: Insomnia Last Admin: 11/11/23 21:23 Dose: 50 mg Allergies Allergies Allergy/AdvReac Type Severity Reaction Status Date / Time No Known Allergies Allergy Unverified 01/28/20 16:07 [No Known Allergies*] Assessment & Plan Assessment & Plan (1) Schizoaffective disorder, bipolar type: Status: Acute Code(s): F25.0 - Schizoaffective disorder, bipolar type Assessment and Plan: 11/01 mildly up - positive mood=- but less irritable than in past visits 11/02 CTP (2) Dementia: Status: Acute Code(s): F03.90 - Unspecified dementia, unspecified severity, without behavioral disturbance, psychotic disturbance, mood disturbance, and anxiety Assessment and Plan: 11/01 ongoing dementia continue with reorientation and distraction prn - (3) Noncompliance: Status: Acute Code(s): Z91.199 - Patient's noncompliance with other medical treatment and regimen due to unspecified reason Assessment and Plan: seems to be taking medication currently - watches nurse crush them and put in ice cream Plan The patient is an elderly male with a past history of schizoaffective disorder, dementia, HIV and other medical problems, chronically mentally ill resident of assisted living facility referred to this facility after he became non compliant with medications with daniella and psychosis. The patient was assessed by crisis and transferring to this facility for psychiatric stabilization. At the moment of the interview the patient was able to contract for safety. Plan 1. Gather collateral information. 2. Continue with regular medications, we are not going to change his Depakote, olanzapine and Haldol Decanoate. 3. Reassessment with results. 4. 15 minutes checks since the patient is able to contract for safety. 5. Change Zyprexa to Zydis to avoid cheeking on October 02. 6. IM zyprexa ordered 10 mg t.i.d. p.r.n. refusal of p.o. as per court order. Total dose up to 30 mg a day. 7. Zyprexa increased up to 15 mg p.o. q.h.s. to target daniella and psychosis. Started on October 15. Zyprexa was increased up to 20 mg p.o. q.h.s. on October 17. 8. Increase Haldol up to 5 mg p.o. t.i.d. on October 22 and keep Haldol Decanoate as per court order. 9. Medical certificate issued. 10. Blood work f on November 18 without no changes Reason for continued inpatient stay Substantial Risk for: inability to function, rapid decompensation and med/psych decompensation Time Spent With Patient Time: Total time managing care of this patient today __20__ minutes.
[2023-11-19 20:00] VITALS: BP 100/58; PULSE 80; RESP 16; TEMP 36.4; O2SAT 95
[2023-11-19] MEDS: Mirtazapine 15 MG TABLET PO (21:26)
[2023-11-19] MEDS: Multivitamin TABLET 1 TAB PO (21:26)
[2023-11-19] MEDS: traZODone HCL 50 MG TABLET PO (21:26)
[2023-11-19] MEDS: OLANZapine 10 MG TABLET 20 MG PO (21:26)
[2023-11-20 08:00] VITALS: BP 118/84; PULSE 91; RESP 18; TEMP 36.8; O2SAT 96
[2023-11-20] MEDS: Divalproex Sodium Sprinkles 125 MG CAP.DR.SPR 250 MG PO ×3 (08:26→20:27)
[2023-11-20] MEDS: Rilpivirine HCL 25 MG TABLET PO (08:26)
[2023-11-20] MEDS: HaloperidoL 5 MG TABLET PO ×3 (08:26→20:27)
[2023-11-20] MEDS: OLANZapine 5 MG TABLET PO ×2 (08:26→14:43)
[2023-11-20] MEDS: amLODIPine Besylate 5 MG TABLET PO (08:26)
[2023-11-20] MEDS: Thiamine HCL 100 MG TABLET PO (08:27)
[2023-11-20] MEDS: levETIRAcetam 500 MG TABLET PO ×2 (08:27→20:27)
[2023-11-20] MEDS: Emtricitabin/Tenofovir 200/300 TABLET 1 TAB PO (08:27)
--- NOTE | 2023-11-20 13:00 | P.PNPSI_ITS ---
Subjective Subjective Date of Service: 11/20/23 Reason For Visit: F32.9 Subjective Notes: Conditional Voluntary Interim History: The nursing staff reported the patient had been pleasant cooperative fully compliant. On interview the patient denies new symptoms. The socially responsible investment adviser reported that the guardianship hearing will be on December 02. Waiting for placement. Mental Status Exam Mental Status Exam Patient Appearance: Appropriate Patient Orientation: Person and Situation Level of Consciousness: Awake and Appropriate Patient Behavior: Guarded and Passive Mood Description: Withdrawn Affect Description: Constricted Patient Cognition Impaired: Yes Ability to Follow Directions: Good Speech Pattern: Clear Hallucinations: None Delusions: Grandiose and Ideas of Reference Thought Process: Distracted and Slowed Thinking Thought Content: positive for [place] and positive for Poverty of Content Judgement: Fair Diagnostics Vital Signs (24Hr): Vital Signs - 24 hr 11/19/23 20:00 11/20/23 08:00 Temperature 97.6 F 98.2 F Pulse Rate 80 91 Respiratory Rate 16 18 Blood Pressure 100/58 L 118/84 Pulse Oximetry 95 96 Oxygen Delivery Method Room Air Room Air BMI result Body Mass Index 17.2 Labs 11/19/23 08:03 11/19/23 08:03 Labs: Laboratory Results - last 48 hr 11/19/23 08:03 WBC 4.8 RBC 4.78 Hgb 14.9 Hct 46.8 MCV 97.9 MCH 31.2 MCHC 31.8 RDW 13.4 Plt Count 144 L D MPV 9.5 Immature Gran % (Auto) 1.1 H Neut % (Auto) 25.7 L Lymph % (Auto) 60.2 H Iron % (Auto) 10.1 Eos % (Auto) 2.5 Baso % (Auto) 0.4 Lymph # (Auto) 2.9 Iron # (Auto) 0.5 Eos # (Auto) 0.1 Baso # (Auto) 0.0 Abs Immat Gran (auto) 0.05 H Absolute Neuts (auto) 1.2 L Absolute Nucleated RBC 0.000 Nucleated RBC % (auto) 0.0 Smear Tech's Comments VERIFIED Sodium 142 Potassium 4.2 Chloride 108 Carbon Dioxide 27 Anion Gap 11 L BUN 23 H Creatinine 0.84 Estim Creat Clear Calc 64.5 Estimated GFR > 60 Fasting Glucose 90 Calcium 9.6 Total Bilirubin 0.3 AST 59 H ALT 39 Alkaline Phosphatase 77 Total Protein 8.4 H Albumin 3.4 L Valproic Acid 43.9 L Medications Medications Current Medications Acetaminophen (Acetaminophen 325 Mg Tablet) 650 mg PO Q6H PRN PRN Reason: Pain (Scale Score 1-3) Al Hydroxide/Mg Hydroxide (Magnesium Hydrox/Alum Hydrox 30 Ml Oral.Susp) 30 ml PO Q6H PRN PRN Reason: Heartburn/Nausea Last Admin: 11/12/23 06:20 Dose: 30 ml Albuterol Sulfate (Albuterol Sulfate 90 Mcg 8 Gm Inhaler) 2 puff INHALE RQ4H PRN PRN Reason: Wheezing Amlodipine Besylate (Amlodipine Besylate 5 Mg Tablet) 5 mg PO DAILY [facility]; Protocol Last Admin: 11/20/23 08:26 Dose: 5 mg Divalproex Sodium (Divalproex Sodium Sprinkles 125 Mg ) 250 mg PO TID [facility] Last Admin: 11/20/23 08:26 Dose: 250 mg Emtricitabine/Tenofovir (Emtricitabin/Tenofovir 200/300 Tablet) 1 tab PO DAILY [facility] Last Admin: 11/20/23 08:27 Dose: 1 tab Haloperidol (Haloperidol 5 Mg Tablet) 5 mg PO TID [facility] Last Admin: 11/20/23 08:26 Dose: 5 mg Haloperidol Decanoate (Haloperidol Decanoate 50 Mg/Ml Vial) 100 mg IM Q28D [facility] Last Admin: 10/28/23 22:18 Dose: 100 mg Levetiracetam (Levetiracetam 500 Mg Tablet) 500 mg PO BID [facility] Last Admin: 11/20/23 08:27 Dose: 500 mg Magnesium Hydroxide (Milk Of Magnesia 30 Ml Oral.Susp) 30 ml PO DAILY PRN PRN Reason: Constipation Mirtazapine (Mirtazapine 15 Mg Tablet) 15 mg PO BEDTIME [facility] Last Admin: 11/19/23 21:26 Dose: 15 mg Multivitamins/Vitamin C (Multivitamin Tablet) 1 tab PO BEDTIME [facility] Last Admin: 11/19/23 21:26 Dose: 1 tab Nicotine Polacrilex (Nicotine Polacrilex 2 Mg Gum) 4 mg BUCCAL Q2H PRN PRN Reason: Nicotine Cravings Olanzapine (Olanzapine 5 Mg Tablet) 5 mg PO BID@0800,1500 [facility] Last Admin: 11/20/23 08:26 Dose: 5 mg Olanzapine (Olanzapine 10 Mg Vial) 10 mg IM BEDTIME PRN PRN Reason: if refuses bedtime PO zyprexa Olanzapine (Olanzapine 10 Mg Vial) 5 mg IM BID@0800,1500 PRN PRN Reason: if refuses 0800/1500 PO zyprexa Last Admin: 10/13/23 14:58 Dose: 5 mg Olanzapine (Olanzapine 10 Mg Tablet) 20 mg PO BEDTIME [facility] Last Admin: 11/19/23 21:26 Dose: 20 mg Polyethylene Glycol (Polyethylene Glycol 3350 17 Gm Powd.Pack) 17 gm PO DAILY PRN PRN Reason: Constipation Rilpivirine (Rilpivirine Hcl 25 Mg Tablet) 25 mg PO DAILY [facility] Last Admin: 11/20/23 08:26 Dose: 25 mg Thiamine HCl (Thiamine Hcl 100 Mg Tablet) 100 mg PO DAILY [facility] Last Admin: 11/20/23 08:27 Dose: 100 mg Trazodone HCl (Trazodone Hcl 50 Mg Tablet) 50 mg PO BEDTIME MRX1 PRN PRN Reason: Insomnia Last Admin: 11/19/23 21:26 Dose: 50 mg Allergies Allergies Allergy/AdvReac Type Severity Reaction Status Date / Time No Known Allergies Allergy Unverified 01/28/20 16:07 [No Known Allergies*] Assessment & Plan Assessment & Plan (1) Schizoaffective disorder, bipolar type: Status: Acute Code(s): F25.0 - Schizoaffective disorder, bipolar type Assessment and Plan: 11/01 mildly up - positive mood=- but less irritable than in past visits 11/02 CTP (2) Dementia: Status: Acute Code(s): F03.90 - Unspecified dementia, unspecified severity, without behavioral disturbance, psychotic disturbance, mood disturbance, and anxiety Assessment and Plan: 11/01 ongoing dementia continue with reorientation and distraction prn - (3) Noncompliance: Status: Acute Code(s): Z91.199 - Patient's noncompliance with other medical treatment and regimen due to unspecified reason Assessment and Plan: seems to be taking medication currently - watches nurse crush them and put in ice cream Plan The patient is an elderly male with a past history of schizoaffective disorder, dementia, HIV and other medical problems, chronically mentally ill resident of assisted living facility referred to this facility after he became non compliant with medications with daniella and psychosis. The patient was assessed by crisis and transferring to this facility for psychiatric stabilization. At the moment of the interview the patient was able to contract for safety. Plan 1. Gather collateral information. 2. Continue with regular medications, we are not going to change his Depakote, olanzapine and Haldol Decanoate. 3. Reassessment with results. 4. 15 minutes checks since the patient is able to contract for safety. 5. Change Zyprexa to Zydis to avoid cheeking on October 02. 6. IM zyprexa ordered 10 mg t.i.d. p.r.n. refusal of p.o. as per court order. Total dose up to 30 mg a day. 7. Zyprexa increased up to 15 mg p.o. q.h.s. to target daniella and psychosis. Started on October 15. Zyprexa was increased up to 20 mg p.o. q.h.s. on October 17. 8. Increase Haldol up to 5 mg p.o. t.i.d. on October 22 and keep Haldol Decanoate as per court order. 9. Medical certificate issued. 10. Blood work f on November 18 without no changes. 11. Guardianship hearing for December 02 Reason for continued inpatient stay Substantial Risk for: inability to function, rapid decompensation and med/psych decompensation Time Spent With Patient Time: Total time managing care of this patient today _20___ minutes.
--- NOTE | 2023-11-20 14:40 | MHC.CLN ---
F/U DIET=REGULAR. ENSURE TID TO INCREASE KCALS/NUTRITION. SUPPLEMENT PROVIDES 1050 KCALS, 60 G PROTEIN. CONTINUES WITH USUALLY GOOD INTAKE. ACCEPTS ENSURE SUPPLEMENT. FOLLOW FOR INTAKE OF MEALS AND SUPPLEMENT. RD TO FOLLOW UP WEEKLY.
[2023-11-20 20:00] VITALS: BP 101/62; PULSE 80; RESP 18; TEMP 36; O2SAT 94
[2023-11-20] MEDS: Multivitamin TABLET 1 TAB PO (20:27)
[2023-11-20] MEDS: Mirtazapine 15 MG TABLET PO (20:27)
[2023-11-20] MEDS: traZODone HCL 50 MG TABLET PO (20:27)
[2023-11-20] MEDS: OLANZapine 10 MG TABLET 20 MG PO (20:27)
[2023-11-21 07:00] VITALS: BMI 18.6
[2023-11-21 08:00] VITALS: BP 99/59; PULSE 79; RESP 17; TEMP 36.6; O2SAT 95
[2023-11-21] MEDS: Rilpivirine HCL 25 MG TABLET PO (08:22)
[2023-11-21] MEDS: Divalproex Sodium Sprinkles 125 MG CAP.DR.SPR 250 MG PO ×3 (08:22→20:21)
[2023-11-21] MEDS: OLANZapine 5 MG TABLET PO ×2 (08:22→15:11)
[2023-11-21] MEDS: Thiamine HCL 100 MG TABLET PO (08:22)
[2023-11-21] MEDS: amLODIPine Besylate 5 MG TABLET PO (08:22)
[2023-11-21] MEDS: HaloperidoL 5 MG TABLET PO ×3 (08:22→20:21)
[2023-11-21] MEDS: levETIRAcetam 500 MG TABLET PO ×2 (08:22→20:21)
[2023-11-21] MEDS: Emtricitabin/Tenofovir 200/300 TABLET 1 TAB PO (08:22)
--- NOTE | 2023-11-21 13:12 | HO.PSYCHPN ---
Subjective Subjective Date of Service: 11/21/23 Reason For Visit: F32.9 Subjective Notes: Conditional Voluntary Interim History: THE NURSING STAFF REPORTED THE PATIENT HAD BEEN COMPLIANT WITH TREATMENT, NO CHANGES IN HIS MENTAL STATUS. ON INTERVIEW THE PATIENT DENIES NEW SYMPTOMS, WAITING FOR PLACEMENT. Mental Status Exam Mental Status Exam Patient Appearance: Appropriate Patient Orientation: Person and Situation Level of Consciousness: Awake and Appropriate Patient Behavior: Guarded and Passive Mood Description: Withdrawn Affect Description: Constricted Patient Cognition Impaired: Yes Ability to Follow Directions: Good Speech Pattern: Clear Hallucinations: None Delusions: Paranoid Ideation and Grandiose Thought Process: Distracted and Slowed Thinking Thought Content: positive for [place] and positive for Poverty of Content Judgement: Poor Diagnostics Vital Signs (24Hr): Vital Signs - 24 hr 11/20/23 20:00 11/21/23 08:00 Temperature 96.8 F 98 F Pulse Rate 80 79 Respiratory Rate 18 17 Blood Pressure 101/62 99/59 L Pulse Oximetry 94 95 Oxygen Delivery Method Room Air Room Air BMI result Body Mass Index 18.6 Labs 11/19/23 08:03 11/19/23 08:03 Medications Medications Current Medications Acetaminophen (Acetaminophen 325 Mg Tablet) 650 mg PO Q6H PRN PRN Reason: Pain (Scale Score 1-3) Al Hydroxide/Mg Hydroxide (Magnesium Hydrox/Alum Hydrox 30 Ml Oral.Susp) 30 ml PO Q6H PRN PRN Reason: Heartburn/Nausea Last Admin: 11/12/23 06:20 Dose: 30 ml Albuterol Sulfate (Albuterol Sulfate 90 Mcg 8 Gm Inhaler) 2 puff INHALE RQ4H PRN PRN Reason: Wheezing Amlodipine Besylate (Amlodipine Besylate 5 Mg Tablet) 5 mg PO DAILY [facility]; Protocol Last Admin: 11/21/23 08:22 Dose: 5 mg Divalproex Sodium (Divalproex Sodium Sprinkles 125 Mg ) 250 mg PO TID [facility] Last Admin: 11/21/23 08:22 Dose: 250 mg Emtricitabine/Tenofovir (Emtricitabin/Tenofovir 200/300 Tablet) 1 tab PO DAILY [facility] Last Admin: 11/21/23 08:22 Dose: 1 tab Haloperidol (Haloperidol 5 Mg Tablet) 5 mg PO TID [facility] Last Admin: 11/21/23 08:22 Dose: 5 mg Haloperidol Decanoate (Haloperidol Decanoate 50 Mg/Ml Vial) 100 mg IM Q28D [facility] Last Admin: 10/28/23 22:18 Dose: 100 mg Levetiracetam (Levetiracetam 500 Mg Tablet) 500 mg PO BID [facility] Last Admin: 11/21/23 08:22 Dose: 500 mg Magnesium Hydroxide (Milk Of Magnesia 30 Ml Oral.Susp) 30 ml PO DAILY PRN PRN Reason: Constipation Mirtazapine (Mirtazapine 15 Mg Tablet) 15 mg PO BEDTIME [facility] Last Admin: 11/20/23 20:27 Dose: 15 mg Multivitamins/Vitamin C (Multivitamin Tablet) 1 tab PO BEDTIME [facility] Last Admin: 11/20/23 20:27 Dose: 1 tab Nicotine Polacrilex (Nicotine Polacrilex 2 Mg Gum) 4 mg BUCCAL Q2H PRN PRN Reason: Nicotine Cravings Olanzapine (Olanzapine 5 Mg Tablet) 5 mg PO BID@0800,1500 [facility] Last Admin: 11/21/23 08:22 Dose: 5 mg Olanzapine (Olanzapine 10 Mg Vial) 10 mg IM BEDTIME PRN PRN Reason: if refuses bedtime PO zyprexa Olanzapine (Olanzapine 10 Mg Vial) 5 mg IM BID@0800,1500 PRN PRN Reason: if refuses 0800/1500 PO zyprexa Last Admin: 10/13/23 14:58 Dose: 5 mg Olanzapine (Olanzapine 10 Mg Tablet) 20 mg PO BEDTIME [facility] Last Admin: 11/20/23 20:27 Dose: 20 mg Polyethylene Glycol (Polyethylene Glycol 3350 17 Gm Powd.Pack) 17 gm PO DAILY PRN PRN Reason: Constipation Rilpivirine (Rilpivirine Hcl 25 Mg Tablet) 25 mg PO DAILY [facility] Last Admin: 11/21/23 08:22 Dose: 25 mg Thiamine HCl (Thiamine Hcl 100 Mg Tablet) 100 mg PO DAILY [facility] Last Admin: 11/21/23 08:22 Dose: 100 mg Trazodone HCl (Trazodone Hcl 50 Mg Tablet) 50 mg PO BEDTIME MRX1 PRN PRN Reason: Insomnia Last Admin: 11/20/23 20:27 Dose: 50 mg Allergies Allergies Allergy/AdvReac Type Severity Reaction Status Date / Time No Known Allergies Allergy Unverified 01/28/20 16:07 [No Known Allergies*] Assessment & Plan Assessment & Plan (1) Schizoaffective disorder, bipolar type: Status: Acute Code(s): F25.0 - Schizoaffective disorder, bipolar type Assessment and Plan: 11/01 mildly up - positive mood=- but less irritable than in past visits 11/02 CTP (2) Dementia: Status: Acute Code(s): F03.90 - Unspecified dementia, unspecified severity, without behavioral disturbance, psychotic disturbance, mood disturbance, and anxiety Assessment and Plan: 11/01 ongoing dementia continue with reorientation and distraction prn - (3) Noncompliance: Status: Acute Code(s): Z91.199 - Patient's noncompliance with other medical treatment and regimen due to unspecified reason Assessment and Plan: seems to be taking medication currently - watches nurse crush them and put in ice cream Plan The patient is an elderly male with a past history of schizoaffective disorder, dementia, HIV and other medical problems, chronically mentally ill resident of assisted living facility referred to this facility after he became non compliant with medications with daniella and psychosis. The patient was assessed by crisis and transferring to this facility for psychiatric stabilization. At the moment of the interview the patient was able to contract for safety. Plan 1. Gather collateral information. 2. Continue with regular medications, we are not going to change his Depakote, olanzapine and Haldol Decanoate. 3. Reassessment with results. 4. 15 minutes checks since the patient is able to contract for safety. 5. Change Zyprexa to Zydis to avoid cheeking on October 02. 6. IM zyprexa ordered 10 mg t.i.d. p.r.n. refusal of p.o. as per court order. Total dose up to 30 mg a day. 7. Zyprexa increased up to 15 mg p.o. q.h.s. to target daniella and psychosis. Started on October 15. Zyprexa was increased up to 20 mg p.o. q.h.s. on October 17. 8. Increase Haldol up to 5 mg p.o. t.i.d. on October 22 and keep Haldol Decanoate as per court order. 9. Medical certificate issued. 10. Blood work f on November 18 without no changes. 11. Guardianship hearing for December 02 Reason for continued inpatient stay Substantial Risk for: inability to function, rapid decompensation and med/psych decompensation Time Spent With Patient Time: Total time managing care of this patient today ____ minutes.
[2023-11-21] MEDS: Mirtazapine 15 MG TABLET PO (20:21)
[2023-11-21] MEDS: Multivitamin TABLET 1 TAB PO (20:21)
[2023-11-21] MEDS: OLANZapine 10 MG TABLET 20 MG PO (20:21)
[2023-11-21] MEDS: traZODone HCL 50 MG TABLET PO (20:21)
[2023-11-21 21:01] VITALS: BP 110/66; PULSE 82; RESP 16; TEMP 36.4; O2SAT 95
[2023-11-22 08:00] VITALS: BP 182/82; PULSE 81; RESP 17; TEMP 36.4; O2SAT 97
[2023-11-22] MEDS: Rilpivirine HCL 25 MG TABLET PO (08:15)
[2023-11-22] MEDS: Emtricitabin/Tenofovir 200/300 TABLET 1 TAB PO (08:16)
[2023-11-22] MEDS: amLODIPine Besylate 5 MG TABLET PO (08:16)
[2023-11-22] MEDS: Thiamine HCL 100 MG TABLET PO (08:16)
[2023-11-22] MEDS: HaloperidoL 5 MG TABLET PO ×3 (08:16→21:19)
[2023-11-22] MEDS: OLANZapine 5 MG TABLET PO ×2 (08:16→15:29)
[2023-11-22] MEDS: Divalproex Sodium Sprinkles 125 MG CAP.DR.SPR 250 MG PO ×3 (08:16→21:19)
[2023-11-22] MEDS: levETIRAcetam 500 MG TABLET PO ×2 (08:16→21:18)
--- NOTE | 2023-11-22 14:33 | P.PNPSI_ITS ---
Subjective Subjective Date of Service: 11/22/23 Reason For Visit: F32.9 Subjective Notes: Conditional Voluntary Interim History: The nursing staff reported the patient had been fully compliant with treatment, he slept 8 hours. On interview the patient is pleasantly confused easily redirectable, waiting for placement. Today I called the attorneys regarding the renewal of his guardianship and role years. Mental Status Exam Mental Status Exam Patient Appearance: Unkempt Patient Orientation: Person and Situation Level of Consciousness: Awake and Appropriate Patient Behavior: Guarded and Passive Mood Description: Calm Affect Description: Constricted Patient Cognition Impaired: Yes Ability to Follow Directions: Good Speech Pattern: Clear Hallucinations: None Delusions: Not Present Thought Process: Distracted and Slowed Thinking Thought Content: positive for Poverty of Content Judgement: Fair Diagnostics Vital Signs (24Hr): Vital Signs - 24 hr 11/21/23 21:01 11/22/23 08:00 Temperature 97.6 F 97.6 F Pulse Rate 82 81 Respiratory Rate 16 17 Blood Pressure 110/66 182/82 H Pulse Oximetry 95 97 Oxygen Delivery Method Room Air Room Air BMI result Body Mass Index 18.6 Labs 11/19/23 08:03 11/19/23 08:03 Medications Medications Current Medications Acetaminophen (Acetaminophen 325 Mg Tablet) 650 mg PO Q6H PRN PRN Reason: Pain (Scale Score 1-3) Al Hydroxide/Mg Hydroxide (Magnesium Hydrox/Alum Hydrox 30 Ml Oral.Susp) 30 ml PO Q6H PRN PRN Reason: Heartburn/Nausea Last Admin: 11/12/23 06:20 Dose: 30 ml Albuterol Sulfate (Albuterol Sulfate 90 Mcg 8 Gm Inhaler) 2 puff INHALE RQ4H PRN PRN Reason: Wheezing Amlodipine Besylate (Amlodipine Besylate 5 Mg Tablet) 5 mg PO DAILY [facility]; Protocol Last Admin: 11/22/23 08:16 Dose: 5 mg Divalproex Sodium (Divalproex Sodium Sprinkles 125 Mg ) 250 mg PO TID [facility] Last Admin: 11/22/23 08:16 Dose: 250 mg Emtricitabine/Tenofovir (Emtricitabin/Tenofovir 200/300 Tablet) 1 tab PO DAILY [facility] Last Admin: 11/22/23 08:16 Dose: 1 tab Haloperidol (Haloperidol 5 Mg Tablet) 5 mg PO TID [facility] Last Admin: 11/22/23 08:16 Dose: 5 mg Haloperidol Decanoate (Haloperidol Decanoate 50 Mg/Ml Vial) 100 mg IM Q28D [facility] Last Admin: 10/28/23 22:18 Dose: 100 mg Levetiracetam (Levetiracetam 500 Mg Tablet) 500 mg PO BID [facility] Last Admin: 11/22/23 08:16 Dose: 500 mg Magnesium Hydroxide (Milk Of Magnesia 30 Ml Oral.Susp) 30 ml PO DAILY PRN PRN Reason: Constipation Mirtazapine (Mirtazapine 15 Mg Tablet) 15 mg PO BEDTIME [facility] Last Admin: 11/21/23 20:21 Dose: 15 mg Multivitamins/Vitamin C (Multivitamin Tablet) 1 tab PO BEDTIME [facility] Last Admin: 11/21/23 20:21 Dose: 1 tab Nicotine Polacrilex (Nicotine Polacrilex 2 Mg Gum) 4 mg BUCCAL Q2H PRN PRN Reason: Nicotine Cravings Olanzapine (Olanzapine 5 Mg Tablet) 5 mg PO BID@0800,1500 [facility] Last Admin: 11/22/23 08:16 Dose: 5 mg Olanzapine (Olanzapine 10 Mg Vial) 10 mg IM BEDTIME PRN PRN Reason: if refuses bedtime PO zyprexa Olanzapine (Olanzapine 10 Mg Vial) 5 mg IM BID@0800,1500 PRN PRN Reason: if refuses 0800/1500 PO zyprexa Last Admin: 10/13/23 14:58 Dose: 5 mg Olanzapine (Olanzapine 10 Mg Tablet) 20 mg PO BEDTIME [facility] Last Admin: 11/21/23 20:21 Dose: 20 mg Polyethylene Glycol (Polyethylene Glycol 3350 17 Gm Powd.Pack) 17 gm PO DAILY PRN PRN Reason: Constipation Rilpivirine (Rilpivirine Hcl 25 Mg Tablet) 25 mg PO DAILY [facility] Last Admin: 11/22/23 08:15 Dose: 25 mg Thiamine HCl (Thiamine Hcl 100 Mg Tablet) 100 mg PO DAILY [facility] Last Admin: 11/22/23 08:16 Dose: 100 mg Trazodone HCl (Trazodone Hcl 50 Mg Tablet) 50 mg PO BEDTIME MRX1 PRN PRN Reason: Insomnia Last Admin: 11/21/23 20:21 Dose: 50 mg Allergies Allergies Allergy/AdvReac Type Severity Reaction Status Date / Time No Known Allergies Allergy Unverified 01/28/20 16:07 [No Known Allergies*] Assessment & Plan Assessment & Plan (1) Schizoaffective disorder, bipolar type: Status: Acute Code(s): F25.0 - Schizoaffective disorder, bipolar type Assessment and Plan: 11/01 mildly up - positive mood=- but less irritable than in past visits 11/02 CTP (2) Dementia: Status: Acute Code(s): F03.90 - Unspecified dementia, unspecified severity, without behavioral disturbance, psychotic disturbance, mood disturbance, and anxiety Assessment and Plan: 11/01 ongoing dementia continue with reorientation and distraction prn - (3) Noncompliance: Status: Acute Code(s): Z91.199 - Patient's noncompliance with other medical treatment and regimen due to unspecified reason Assessment and Plan: seems to be taking medication currently - watches nurse crush them and put in ice cream Plan The patient is an elderly male with a past history of schizoaffective disorder, dementia, HIV and other medical problems, chronically mentally ill resident of assisted living facility referred to this facility after he became non compliant with medications with daniella and psychosis. The patient was assessed by crisis and transferring to this facility for psychiatric stabilization. At the moment of the interview the patient was able to contract for safety. Plan 1. Gather collateral information. 2. Continue with regular medications, we are not going to change his Depakote, olanzapine and Haldol Decanoate. 3. Reassessment with results. 4. 15 minutes checks since the patient is able to contract for safety. 5. Change Zyprexa to Zydis to avoid cheeking on October 02. 6. IM zyprexa ordered 10 mg t.i.d. p.r.n. refusal of p.o. as per court order. Total dose up to 30 mg a day. 7. Zyprexa increased up to 15 mg p.o. q.h.s. to target daniella and psychosis. Started on October 15. Zyprexa was increased up to 20 mg p.o. q.h.s. on October 17. 8. Increase Haldol up to 5 mg p.o. t.i.d. on October 22 and keep Haldol Decanoate as per court order. 9. Medical certificate issued. 10. Blood work f on November 18 without no changes. 11. Guardianship hearing for December 02 Reason for continued inpatient stay Substantial Risk for: inability to function, rapid decompensation and med/psych decompensation Time Spent With Patient Time: Total time managing care of this patient today __20__ minutes.
[2023-11-22 20:00] VITALS: BP 98/64; PULSE 87; RESP 18; TEMP 36.6; O2SAT 95
[2023-11-22] MEDS: OLANZapine 10 MG TABLET 20 MG PO (21:18)
[2023-11-22] MEDS: Multivitamin TABLET 1 TAB PO (21:19)
[2023-11-22] MEDS: traZODone HCL 50 MG TABLET PO (21:19)
[2023-11-22] MEDS: Mirtazapine 15 MG TABLET PO (21:19)
[2023-11-23 07:57] VITALS: BP 117/67; PULSE 70; RESP 16; TEMP 36.5; O2SAT 97
[2023-11-23] MEDS: OLANZapine 5 MG TABLET PO ×2 (08:45→14:37)
[2023-11-23] MEDS: Thiamine HCL 100 MG TABLET PO (08:45)
[2023-11-23] MEDS: HaloperidoL 5 MG TABLET PO ×3 (08:45→21:08)
[2023-11-23] MEDS: Rilpivirine HCL 25 MG TABLET PO (08:45)
[2023-11-23] MEDS: Emtricitabin/Tenofovir 200/300 TABLET 1 TAB PO (08:45)
[2023-11-23] MEDS: levETIRAcetam 500 MG TABLET PO ×2 (08:45→21:08)
[2023-11-23] MEDS: amLODIPine Besylate 5 MG TABLET PO (08:45)
[2023-11-23] MEDS: Divalproex Sodium Sprinkles 125 MG CAP.DR.SPR 250 MG PO ×3 (08:46→21:08)
[2023-11-23 20:00] VITALS: BP 96/53; PULSE 75; RESP 16; TEMP 36.6; O2SAT 94
[2023-11-23] MEDS: Mirtazapine 15 MG TABLET PO (21:08)
[2023-11-23] MEDS: Multivitamin TABLET 1 TAB PO (21:08)
[2023-11-23] MEDS: OLANZapine 10 MG TABLET 20 MG PO (21:08)
[2023-11-23] MEDS: traZODone HCL 50 MG TABLET PO (21:08)
--- NOTE | 2023-11-23 23:49 | P.PNPSI_ITS ---
Subjective Subjective Date of Service: 11/23/23 Reason For Visit: F32.9 Subjective Notes: Conditional Voluntary Interim History: The nursing staff reported the patient had been fully compliant with treatment, he slept 8 hours. On interview the patient is pleasantly confused easily redirectable, waiting for placement. Social at times not overly agitated Medication Compliance: Yes Mental Status Exam Mental Status Exam Patient Appearance: Unkempt Patient Orientation: Person and Situation Level of Consciousness: Awake and Appropriate Patient Behavior: Guarded and Passive Mood Description: Calm Affect Description: Constricted Patient Cognition Impaired: Yes Ability to Follow Directions: Good Speech Pattern: Clear Hallucinations: None Delusions: Not Present Thought Process: Distracted and Slowed Thinking Thought Content: positive for Poverty of Content Judgement: Fair Diagnostics Vital Signs (24Hr): Vital Signs - 24 hr 11/23/23 07:57 11/23/23 20:00 Temperature 97.7 F 97.9 F Pulse Rate 70 75 Respiratory Rate 16 16 Blood Pressure 117/67 96/53 L Pulse Oximetry 97 94 Oxygen Delivery Method Room Air Room Air BMI result Body Mass Index 18.6 Labs 11/19/23 08:03 11/19/23 08:03 Medications Medications Current Medications Acetaminophen (Acetaminophen 325 Mg Tablet) 650 mg PO Q6H PRN PRN Reason: Pain (Scale Score 1-3) Al Hydroxide/Mg Hydroxide (Magnesium Hydrox/Alum Hydrox 30 Ml Oral.Susp) 30 ml PO Q6H PRN PRN Reason: Heartburn/Nausea Last Admin: 11/12/23 06:20 Dose: 30 ml Albuterol Sulfate (Albuterol Sulfate 90 Mcg 8 Gm Inhaler) 2 puff INHALE RQ4H PRN PRN Reason: Wheezing Amlodipine Besylate (Amlodipine Besylate 5 Mg Tablet) 5 mg PO DAILY [facility]; Protocol Last Admin: 11/23/23 08:45 Dose: 5 mg Divalproex Sodium (Divalproex Sodium Sprinkles 125 Mg ) 250 mg PO TID [facility] Last Admin: 11/23/23 21:08 Dose: 250 mg Emtricitabine/Tenofovir (Emtricitabin/Tenofovir 200/300 Tablet) 1 tab PO DAILY [facility] Last Admin: 11/23/23 08:45 Dose: 1 tab Haloperidol (Haloperidol 5 Mg Tablet) 5 mg PO TID [facility] Last Admin: 11/23/23 21:08 Dose: 5 mg Haloperidol Decanoate (Haloperidol Decanoate 50 Mg/Ml Vial) 100 mg IM Q28D [facility] Last Admin: 10/28/23 22:18 Dose: 100 mg Levetiracetam (Levetiracetam 500 Mg Tablet) 500 mg PO BID [facility] Last Admin: 11/23/23 21:08 Dose: 500 mg Magnesium Hydroxide (Milk Of Magnesia 30 Ml Oral.Susp) 30 ml PO DAILY PRN PRN Reason: Constipation Mirtazapine (Mirtazapine 15 Mg Tablet) 15 mg PO BEDTIME [facility] Last Admin: 11/23/23 21:08 Dose: 15 mg Multivitamins/Vitamin C (Multivitamin Tablet) 1 tab PO BEDTIME [facility] Last Admin: 11/23/23 21:08 Dose: 1 tab Nicotine Polacrilex (Nicotine Polacrilex 2 Mg Gum) 4 mg BUCCAL Q2H PRN PRN Reason: Nicotine Cravings Olanzapine (Olanzapine 5 Mg Tablet) 5 mg PO BID@0800,1500 [facility] Last Admin: 11/23/23 14:37 Dose: 5 mg Olanzapine (Olanzapine 10 Mg Vial) 10 mg IM BEDTIME PRN PRN Reason: if refuses bedtime PO zyprexa Olanzapine (Olanzapine 10 Mg Vial) 5 mg IM BID@0800,1500 PRN PRN Reason: if refuses 0800/1500 PO zyprexa Last Admin: 10/13/23 14:58 Dose: 5 mg Olanzapine (Olanzapine 10 Mg Tablet) 20 mg PO BEDTIME [facility] Last Admin: 11/23/23 21:08 Dose: 20 mg Polyethylene Glycol (Polyethylene Glycol 3350 17 Gm Powd.Pack) 17 gm PO DAILY PRN PRN Reason: Constipation Rilpivirine (Rilpivirine Hcl 25 Mg Tablet) 25 mg PO DAILY [facility] Last Admin: 11/23/23 08:45 Dose: 25 mg Thiamine HCl (Thiamine Hcl 100 Mg Tablet) 100 mg PO DAILY [facility] Last Admin: 11/23/23 08:45 Dose: 100 mg Trazodone HCl (Trazodone Hcl 50 Mg Tablet) 50 mg PO BEDTIME MRX1 PRN PRN Reason: Insomnia Last Admin: 11/23/23 21:08 Dose: 50 mg Allergies Allergies Allergy/AdvReac Type Severity Reaction Status Date / Time No Known Allergies Allergy Unverified 01/28/20 16:07 [No Known Allergies*] Assessment & Plan Assessment & Plan (1) Schizoaffective disorder, bipolar type: Status: Acute Code(s): F25.0 - Schizoaffective disorder, bipolar type Assessment and Plan: 11/01 mildly up - positive mood=- but less irritable than in past visits 11/02 CTP (2) Dementia: Status: Acute Code(s): F03.90 - Unspecified dementia, unspecified severity, without behavioral disturbance, psychotic disturbance, mood disturbance, and anxiety Assessment and Plan: 11/01 ongoing dementia continue with reorientation and distraction prn - (3) Noncompliance: Status: Acute Code(s): Z91.199 - Patient's noncompliance with other medical treatment and regimen due to unspecified reason Assessment and Plan: seems to be taking medication currently - watches nurse crush them and put in ice cream Plan The patient is an elderly male with a past history of schizoaffective disorder, dementia, HIV and other medical problems, chronically mentally ill resident of assisted living facility referred to this facility after he became non compliant with medications with daniella and psychosis. The patient was assessed by crisis and transferring to this facility for psychiatric stabilization. At the moment of the interview the patient was able to contract for safety. Plan 1. Gather collateral information. 2. Continue with regular medications, we are not going to change his Depakote, olanzapine and Haldol Decanoate. 3. Reassessment with results. 4. 15 minutes checks since the patient is able to contract for safety. 5. Change Zyprexa to Zydis to avoid cheeking on October 02. 6. IM zyprexa ordered 10 mg t.i.d. p.r.n. refusal of p.o. as per court order. Total dose up to 30 mg a day. 7. Zyprexa increased up to 15 mg p.o. q.h.s. to target daniella and psychosis. Started on October 15. Zyprexa was increased up to 20 mg p.o. q.h.s. on October 17. 8. Increase Haldol up to 5 mg p.o. t.i.d. on October 22 and keep Haldol Decanoate as per court order. 9. Medical certificate issued. 10. Blood work f on November 18 without no changes. 11. Guardianship hearing for December 02 11/23/2023 Guardianship hearing pending patient referred for placement Reason for continued inpatient stay Substantial Risk for: inability to function and rapid decompensation Time Spent With Patient Time: Total time managing care of this patient today ____ minutes.
[2023-11-24 07:47] VITALS: BP 98/62; PULSE 77; RESP 16; TEMP 36.6; O2SAT 96
[2023-11-24] MEDS: Emtricitabin/Tenofovir 200/300 TABLET 1 TAB PO (08:27)
[2023-11-24] MEDS: Rilpivirine HCL 25 MG TABLET PO (08:27)
[2023-11-24] MEDS: OLANZapine 5 MG TABLET PO ×2 (08:27→15:28)
[2023-11-24] MEDS: Divalproex Sodium Sprinkles 125 MG CAP.DR.SPR 250 MG PO ×3 (08:27→21:32)
[2023-11-24] MEDS: levETIRAcetam 500 MG TABLET PO ×2 (08:27→21:32)
[2023-11-24] MEDS: HaloperidoL 5 MG TABLET PO ×3 (08:27→21:33)
[2023-11-24] MEDS: Thiamine HCL 100 MG TABLET PO (08:27)
[2023-11-24] MEDS: amLODIPine Besylate 5 MG TABLET PO (08:27)
--- NOTE | 2023-11-24 13:03 | P.PNPSI_ITS ---
Subjective Subjective Date of Service: 11/24/23 Reason For Visit: F32.9 Interim History: Patient seen psychiatric follow-up. Patient social calm cooperative on the unit not overly agitated combative or grossly psychotic he is [facility] case managed Mental Status Exam Mental Status Exam Patient Appearance: Unkempt Patient Orientation: Person and Situation Level of Consciousness: Awake and Appropriate Patient Behavior: Guarded and Passive Mood Description: Calm Affect Description: Constricted Patient Cognition Impaired: Yes Ability to Follow Directions: Good Speech Pattern: Clear Hallucinations: None Delusions: Not Present Thought Process: Distracted and Slowed Thinking Thought Content: positive for Poverty of Content Judgement: Fair Diagnostics Vital Signs (24Hr): Vital Signs - 24 hr 11/23/23 20:00 11/24/23 07:47 Temperature 97.9 F 97.8 F Pulse Rate 75 77 Respiratory Rate 16 16 Blood Pressure 96/53 L 98/62 Pulse Oximetry 94 96 Oxygen Delivery Method Room Air Room Air BMI result Body Mass Index 18.6 Labs 11/19/23 08:03 11/19/23 08:03 Medications Medications Current Medications Acetaminophen (Acetaminophen 325 Mg Tablet) 650 mg PO Q6H PRN PRN Reason: Pain (Scale Score 1-3) Al Hydroxide/Mg Hydroxide (Magnesium Hydrox/Alum Hydrox 30 Ml Oral.Susp) 30 ml PO Q6H PRN PRN Reason: Heartburn/Nausea Last Admin: 11/12/23 06:20 Dose: 30 ml Albuterol Sulfate (Albuterol Sulfate 90 Mcg 8 Gm Inhaler) 2 puff INHALE RQ4H PRN PRN Reason: Wheezing Amlodipine Besylate (Amlodipine Besylate 5 Mg Tablet) 5 mg PO DAILY [facility]; Protocol Last Admin: 11/24/23 08:27 Dose: 5 mg Divalproex Sodium (Divalproex Sodium Sprinkles 125 Mg ) 250 mg PO TID [facility] Last Admin: 11/24/23 08:27 Dose: 250 mg Emtricitabine/Tenofovir (Emtricitabin/Tenofovir 200/300 Tablet) 1 tab PO DAILY [facility] Last Admin: 11/24/23 08:27 Dose: 1 tab Haloperidol (Haloperidol 5 Mg Tablet) 5 mg PO TID [facility] Last Admin: 11/24/23 08:27 Dose: 5 mg Haloperidol Decanoate (Haloperidol Decanoate 50 Mg/Ml Vial) 100 mg IM Q28D [facility] Last Admin: 10/28/23 22:18 Dose: 100 mg Levetiracetam (Levetiracetam 500 Mg Tablet) 500 mg PO BID [facility] Last Admin: 11/24/23 08:27 Dose: 500 mg Magnesium Hydroxide (Milk Of Magnesia 30 Ml Oral.Susp) 30 ml PO DAILY PRN PRN Reason: Constipation Mirtazapine (Mirtazapine 15 Mg Tablet) 15 mg PO BEDTIME [facility] Last Admin: 11/23/23 21:08 Dose: 15 mg Multivitamins/Vitamin C (Multivitamin Tablet) 1 tab PO BEDTIME [facility] Last Admin: 11/23/23 21:08 Dose: 1 tab Nicotine Polacrilex (Nicotine Polacrilex 2 Mg Gum) 4 mg BUCCAL Q2H PRN PRN Reason: Nicotine Cravings Olanzapine (Olanzapine 5 Mg Tablet) 5 mg PO BID@0800,1500 [facility] Last Admin: 11/24/23 08:27 Dose: 5 mg Olanzapine (Olanzapine 10 Mg Vial) 10 mg IM BEDTIME PRN PRN Reason: if refuses bedtime PO zyprexa Olanzapine (Olanzapine 10 Mg Vial) 5 mg IM BID@0800,1500 PRN PRN Reason: if refuses 0800/1500 PO zyprexa Last Admin: 10/13/23 14:58 Dose: 5 mg Olanzapine (Olanzapine 10 Mg Tablet) 20 mg PO BEDTIME [facility] Last Admin: 11/23/23 21:08 Dose: 20 mg Polyethylene Glycol (Polyethylene Glycol 3350 17 Gm Powd.Pack) 17 gm PO DAILY PRN PRN Reason: Constipation Rilpivirine (Rilpivirine Hcl 25 Mg Tablet) 25 mg PO DAILY [facility] Last Admin: 11/24/23 08:27 Dose: 25 mg Thiamine HCl (Thiamine Hcl 100 Mg Tablet) 100 mg PO DAILY [facility] Last Admin: 11/24/23 08:27 Dose: 100 mg Trazodone HCl (Trazodone Hcl 50 Mg Tablet) 50 mg PO BEDTIME MRX1 PRN PRN Reason: Insomnia Last Admin: 11/23/23 21:08 Dose: 50 mg Allergies Allergies Allergy/AdvReac Type Severity Reaction Status Date / Time No Known Allergies Allergy Unverified 01/28/20 16:07 [No Known Allergies*] Assessment & Plan Assessment & Plan (1) Schizoaffective disorder, bipolar type: Status: Acute Code(s): F25.0 - Schizoaffective disorder, bipolar type Assessment and Plan: 11/01 mildly up - positive mood=- but less irritable than in past visits 11/02 CTP (2) Dementia: Status: Acute Code(s): F03.90 - Unspecified dementia, unspecified severity, without behavioral disturbance, psychotic disturbance, mood disturbance, and anxiety Assessment and Plan: 11/01 ongoing dementia continue with reorientation and distraction prn - (3) Noncompliance: Status: Acute Code(s): Z91.199 - Patient's noncompliance with other medical treatment and regimen due to unspecified reason Assessment and Plan: seems to be taking medication currently - watches nurse crush them and put in ice cream Plan The patient is an elderly male with a past history of schizoaffective disorder, dementia, HIV and other medical problems, chronically mentally ill resident of assisted living facility referred to this facility after he became non compliant with medications with daniella and psychosis. The patient was assessed by crisis and transferring to this facility for psychiatric stabilization. At the moment of the interview the patient was able to contract for safety. Plan 1. Gather collateral information. 2. Continue with regular medications, we are not going to change his Depakote, olanzapine and Haldol Decanoate. 3. Reassessment with results. 4. 15 minutes checks since the patient is able to contract for safety. 5. Change Zyprexa to Zydis to avoid cheeking on October 02. 6. IM zyprexa ordered 10 mg t.i.d. p.r.n. refusal of p.o. as per court order. Total dose up to 30 mg a day. 7. Zyprexa increased up to 15 mg p.o. q.h.s. to target daniella and psychosis. Started on October 15. Zyprexa was increased up to 20 mg p.o. q.h.s. on October 17. 8. Increase Haldol up to 5 mg p.o. t.i.d. on October 22 and keep Haldol Decanoate as per court order. 9. Medical certificate issued. 10. Blood work f on November 18 without no changes. 11. Guardianship hearing for December 02 11/23/2023 Guardianship hearing pending patient referred for placement 11/24/2023 Continue plan of care Reason for continued inpatient stay Substantial Risk for: inability to function and rapid decompensation Time Spent With Patient Time: Total time managing care of this patient today ____ minutes.
[2023-11-24 19:20] VITALS: BP 99/67; PULSE 83; TEMP 36.3; O2SAT 94
[2023-11-24] MEDS: OLANZapine 10 MG TABLET 20 MG PO (21:32)
[2023-11-24] MEDS: Mirtazapine 15 MG TABLET PO (21:33)
[2023-11-24] MEDS: Multivitamin TABLET 1 TAB PO (21:33)
[2023-11-25 08:00] VITALS: BP 110/68; PULSE 92; RESP 16; TEMP 36.4; O2SAT 95
[2023-11-25] MEDS: Divalproex Sodium Sprinkles 125 MG CAP.DR.SPR 250 MG PO ×3 (09:23→20:26)
[2023-11-25] MEDS: levETIRAcetam 500 MG TABLET PO ×2 (09:23→20:26)
[2023-11-25] MEDS: HaloperidoL 5 MG TABLET PO ×3 (09:23→20:26)
[2023-11-25] MEDS: Emtricitabin/Tenofovir 200/300 TABLET 1 TAB PO (09:23)
[2023-11-25] MEDS: Rilpivirine HCL 25 MG TABLET PO (09:23)
[2023-11-25] MEDS: OLANZapine 5 MG TABLET PO ×2 (09:23→16:08)
[2023-11-25] MEDS: Thiamine HCL 100 MG TABLET PO (09:24)
[2023-11-25] MEDS: amLODIPine Besylate 5 MG TABLET PO (09:24)
--- NOTE | 2023-11-25 18:01 | P.PNPSI_ITS ---
Subjective Subjective Date of Service: 11/25/23 Reason For Visit: F32.9 Interim History: pleasant, cooperative, calm, polite. no questions or requests. per staff, pleasant. taking meds. no issues. slept more than 8 hours. Mental Status Exam Mental Status Exam Patient Appearance: Unkempt Patient Orientation: Person and Situation Level of Consciousness: Awake and Appropriate Patient Behavior: Guarded and Passive Mood Description: Calm Affect Description: Constricted Patient Cognition Impaired: Yes Ability to Follow Directions: Good Speech Pattern: Clear Hallucinations: None Delusions: Not Present Thought Process: Distracted and Slowed Thinking Thought Content: positive for Poverty of Content Judgement: Fair Diagnostics Vital Signs (24Hr): Vital Signs - 24 hr 11/24/23 19:20 11/25/23 08:00 Temperature 97.4 F 97.6 F Pulse Rate 83 92 Respiratory Rate 16 Blood Pressure 99/67 110/68 Pulse Oximetry 94 95 Oxygen Delivery Method Room Air Room Air BMI result Body Mass Index 18.6 Labs 11/19/23 08:03 11/19/23 08:03 Medications Medications Current Medications Acetaminophen (Acetaminophen 325 Mg Tablet) 650 mg PO Q6H PRN PRN Reason: Pain (Scale Score 1-3) Al Hydroxide/Mg Hydroxide (Magnesium Hydrox/Alum Hydrox 30 Ml Oral.Susp) 30 ml PO Q6H PRN PRN Reason: Heartburn/Nausea Last Admin: 11/12/23 06:20 Dose: 30 ml Albuterol Sulfate (Albuterol Sulfate 90 Mcg 8 Gm Inhaler) 2 puff INHALE RQ4H PRN PRN Reason: Wheezing Amlodipine Besylate (Amlodipine Besylate 5 Mg Tablet) 5 mg PO DAILY [facility]; Protocol Last Admin: 11/25/23 09:24 Dose: 5 mg Divalproex Sodium (Divalproex Sodium Sprinkles 125 Mg ) 250 mg PO TID [facility] Last Admin: 11/25/23 16:08 Dose: 250 mg Emtricitabine/Tenofovir (Emtricitabin/Tenofovir 200/300 Tablet) 1 tab PO DAILY [facility] Last Admin: 11/25/23 09:23 Dose: 1 tab Haloperidol (Haloperidol 5 Mg Tablet) 5 mg PO TID [facility] Last Admin: 11/25/23 16:08 Dose: 5 mg Haloperidol Decanoate (Haloperidol Decanoate 50 Mg/Ml Vial) 100 mg IM Q28D [facility] Last Admin: 10/28/23 22:18 Dose: 100 mg Levetiracetam (Levetiracetam 500 Mg Tablet) 500 mg PO BID [facility] Last Admin: 11/25/23 09:23 Dose: 500 mg Magnesium Hydroxide (Milk Of Magnesia 30 Ml Oral.Susp) 30 ml PO DAILY PRN PRN Reason: Constipation Mirtazapine (Mirtazapine 15 Mg Tablet) 15 mg PO BEDTIME [facility] Last Admin: 11/24/23 21:33 Dose: 15 mg Multivitamins/Vitamin C (Multivitamin Tablet) 1 tab PO BEDTIME [facility] Last Admin: 11/24/23 21:33 Dose: 1 tab Nicotine Polacrilex (Nicotine Polacrilex 2 Mg Gum) 4 mg BUCCAL Q2H PRN PRN Reason: Nicotine Cravings Olanzapine (Olanzapine 5 Mg Tablet) 5 mg PO BID@0800,1500 [facility] Last Admin: 11/25/23 16:08 Dose: 5 mg Olanzapine (Olanzapine 10 Mg Vial) 10 mg IM BEDTIME PRN PRN Reason: if refuses bedtime PO zyprexa Olanzapine (Olanzapine 10 Mg Vial) 5 mg IM BID@0800,1500 PRN PRN Reason: if refuses 0800/1500 PO zyprexa Last Admin: 10/13/23 14:58 Dose: 5 mg Olanzapine (Olanzapine 10 Mg Tablet) 20 mg PO BEDTIME [facility] Last Admin: 11/24/23 21:32 Dose: 20 mg Polyethylene Glycol (Polyethylene Glycol 3350 17 Gm Powd.Pack) 17 gm PO DAILY PRN PRN Reason: Constipation Rilpivirine (Rilpivirine Hcl 25 Mg Tablet) 25 mg PO DAILY [facility] Last Admin: 11/25/23 09:23 Dose: 25 mg Thiamine HCl (Thiamine Hcl 100 Mg Tablet) 100 mg PO DAILY [facility] Last Admin: 11/25/23 09:24 Dose: 100 mg Trazodone HCl (Trazodone Hcl 50 Mg Tablet) 50 mg PO BEDTIME MRX1 PRN PRN Reason: Insomnia Last Admin: 11/23/23 21:08 Dose: 50 mg Allergies Allergies Allergy/AdvReac Type Severity Reaction Status Date / Time No Known Allergies Allergy Unverified 01/28/20 16:07 [No Known Allergies*] Assessment & Plan Assessment & Plan (1) Schizoaffective disorder, bipolar type: Status: Acute Code(s): F25.0 - Schizoaffective disorder, bipolar type Assessment and Plan: 11/01 mildly up - positive mood=- but less irritable than in past visits 11/02 CTP (2) Dementia: Status: Acute Code(s): F03.90 - Unspecified dementia, unspecified severity, without behavioral disturbance, psychotic disturbance, mood disturbance, and anxiety Assessment and Plan: 11/01 ongoing dementia continue with reorientation and distraction prn - (3) Noncompliance: Status: Acute Code(s): Z91.199 - Patient's noncompliance with other medical treatment and regimen due to unspecified reason Assessment and Plan: seems to be taking medication currently - watches nurse crush them and put in ice cream Plan The patient is an elderly male with a past history of schizoaffective disorder, dementia, HIV and other medical problems, chronically mentally ill resident of assisted living facility referred to this facility after he became non compliant with medications with daniella and psychosis. The patient was assessed by crisis and transferring to this facility for psychiatric stabilization. At the moment of the interview the patient was able to contract for safety. Plan 1. Gather collateral information. 2. Continue with regular medications, we are not going to change his Depakote, olanzapine and Haldol Decanoate. 3. Reassessment with results. 4. 15 minutes checks since the patient is able to contract for safety. 5. Change Zyprexa to Zydis to avoid cheeking on October 02. 6. IM zyprexa ordered 10 mg t.i.d. p.r.n. refusal of p.o. as per court order. Total dose up to 30 mg a day. 7. Zyprexa increased up to 15 mg p.o. q.h.s. to target daniella and psychosis. Started on October 15. Zyprexa was increased up to 20 mg p.o. q.h.s. on October 17. 8. Increase Haldol up to 5 mg p.o. t.i.d. on October 22 and keep Haldol Decanoate as per court order. 9. Medical certificate issued. 10. Blood work f on November 18 without no changes. 11. Guardianship hearing for December 02 11/23/2023 Guardianship hearing pending patient referred for placement 11/24/2023 Continue plan of care 11/24: non-labile, cooperative, pleasant. continue current mgmt. Reason for continued inpatient stay Substantial Risk for: inability to function and rapid decompensation Time Spent With Patient Time: Total time managing care of this patient today ____ minutes.
[2023-11-25] MEDS: OLANZapine 10 MG TABLET 20 MG PO (20:26)
[2023-11-25] MEDS: traZODone HCL 50 MG TABLET PO (20:26)
[2023-11-25] MEDS: Multivitamin TABLET 1 TAB PO (20:26)
[2023-11-25] MEDS: Mirtazapine 15 MG TABLET PO (20:26)
[2023-11-25] MEDS: Haloperidol Decanoate 50 MG/ML VIAL 100 MG IM (20:59)
[2023-11-25 21:33] VITALS: BP 99/58; PULSE 85; RESP 16; TEMP 36.1; O2SAT 94
[2023-11-26 08:40] VITALS: BP 138/86; PULSE 85; RESP 18; TEMP 36.1; O2SAT 94
[2023-11-26] MEDS: Divalproex Sodium Sprinkles 125 MG CAP.DR.SPR 250 MG PO ×3 (08:40→20:45)
[2023-11-26] MEDS: levETIRAcetam 500 MG TABLET PO ×2 (08:40→20:46)
[2023-11-26] MEDS: Rilpivirine HCL 25 MG TABLET PO (08:40)
[2023-11-26] MEDS: Emtricitabin/Tenofovir 200/300 TABLET 1 TAB PO (08:40)
[2023-11-26] MEDS: OLANZapine 5 MG TABLET PO ×2 (08:40→16:04)
[2023-11-26] MEDS: amLODIPine Besylate 5 MG TABLET PO (08:40)
[2023-11-26] MEDS: Thiamine HCL 100 MG TABLET PO (08:40)
[2023-11-26] MEDS: HaloperidoL 5 MG TABLET PO ×3 (08:40→20:46)
[2023-11-26 19:56] VITALS: BP 100/59; PULSE 78; RESP 16; TEMP 36.4; O2SAT 95
[2023-11-26] MEDS: traZODone HCL 50 MG TABLET PO (20:45)
[2023-11-26] MEDS: Mirtazapine 15 MG TABLET PO (20:45)
[2023-11-26] MEDS: Multivitamin TABLET 1 TAB PO (20:45)
[2023-11-26] MEDS: OLANZapine 10 MG TABLET 20 MG PO (20:46)
--- NOTE | 2023-11-26 21:50 | P.PNPSI_ITS ---
Subjective Subjective Date of Service: 11/26/23 Reason For Visit: F32.9 Interim History: no change. calm, polite pleasant. per staff, same. Mental Status Exam Mental Status Exam Patient Appearance: Unkempt Patient Orientation: Person and Situation Level of Consciousness: Awake and Appropriate Patient Behavior: Guarded and Passive Mood Description: Calm Affect Description: Constricted Patient Cognition Impaired: Yes Ability to Follow Directions: Good Speech Pattern: Clear Hallucinations: None Delusions: Not Present Thought Process: Distracted and Slowed Thinking Thought Content: positive for Poverty of Content Judgement: Fair Diagnostics Vital Signs (24Hr): Vital Signs - 24 hr 11/26/23 08:40 11/26/23 08:40 11/26/23 19:56 Temperature 96.9 F 97.6 F Pulse Rate 85 78 Respiratory Rate 18 16 Blood Pressure 138/86 138/86 100/59 L Pulse Oximetry 94 95 Oxygen Delivery Method Room Air Room Air BMI result Body Mass Index 18.6 Labs 11/19/23 08:03 11/19/23 08:03 Medications Medications Current Medications Acetaminophen (Acetaminophen 325 Mg Tablet) 650 mg PO Q6H PRN PRN Reason: Pain (Scale Score 1-3) Al Hydroxide/Mg Hydroxide (Magnesium Hydrox/Alum Hydrox 30 Ml Oral.Susp) 30 ml PO Q6H PRN PRN Reason: Heartburn/Nausea Last Admin: 11/12/23 06:20 Dose: 30 ml Albuterol Sulfate (Albuterol Sulfate 90 Mcg 8 Gm Inhaler) 2 puff INHALE RQ4H PRN PRN Reason: Wheezing Amlodipine Besylate (Amlodipine Besylate 5 Mg Tablet) 5 mg PO DAILY [facility]; Protocol Last Admin: 11/26/23 08:40 Dose: 5 mg Divalproex Sodium (Divalproex Sodium Sprinkles 125 Mg ) 250 mg PO TID [facility] Last Admin: 11/26/23 20:45 Dose: 250 mg Emtricitabine/Tenofovir (Emtricitabin/Tenofovir 200/300 Tablet) 1 tab PO DAILY [facility] Last Admin: 11/26/23 08:40 Dose: 1 tab Haloperidol (Haloperidol 5 Mg Tablet) 5 mg PO TID [facility] Last Admin: 11/26/23 20:46 Dose: 5 mg Haloperidol Decanoate (Haloperidol Decanoate 50 Mg/Ml Vial) 100 mg IM Q28D [facility] Last Admin: 11/25/23 20:59 Dose: 100 mg Levetiracetam (Levetiracetam 500 Mg Tablet) 500 mg PO BID [facility] Last Admin: 11/26/23 20:46 Dose: 500 mg Magnesium Hydroxide (Milk Of Magnesia 30 Ml Oral.Susp) 30 ml PO DAILY PRN PRN Reason: Constipation Mirtazapine (Mirtazapine 15 Mg Tablet) 15 mg PO BEDTIME [facility] Last Admin: 11/26/23 20:45 Dose: 15 mg Multivitamins/Vitamin C (Multivitamin Tablet) 1 tab PO BEDTIME [facility] Last Admin: 11/26/23 20:45 Dose: 1 tab Nicotine Polacrilex (Nicotine Polacrilex 2 Mg Gum) 4 mg BUCCAL Q2H PRN PRN Reason: Nicotine Cravings Olanzapine (Olanzapine 5 Mg Tablet) 5 mg PO BID@0800,1500 [facility] Last Admin: 11/26/23 16:04 Dose: 5 mg Olanzapine (Olanzapine 10 Mg Vial) 10 mg IM BEDTIME PRN PRN Reason: if refuses bedtime PO zyprexa Olanzapine (Olanzapine 10 Mg Vial) 5 mg IM BID@0800,1500 PRN PRN Reason: if refuses 0800/1500 PO zyprexa Last Admin: 10/13/23 14:58 Dose: 5 mg Olanzapine (Olanzapine 10 Mg Tablet) 20 mg PO BEDTIME [facility] Last Admin: 11/26/23 20:46 Dose: 20 mg Polyethylene Glycol (Polyethylene Glycol 3350 17 Gm Powd.Pack) 17 gm PO DAILY PRN PRN Reason: Constipation Rilpivirine (Rilpivirine Hcl 25 Mg Tablet) 25 mg PO DAILY [facility] Last Admin: 11/26/23 08:40 Dose: 25 mg Thiamine HCl (Thiamine Hcl 100 Mg Tablet) 100 mg PO DAILY [facility] Last Admin: 11/26/23 08:40 Dose: 100 mg Trazodone HCl (Trazodone Hcl 50 Mg Tablet) 50 mg PO BEDTIME MRX1 PRN PRN Reason: Insomnia Last Admin: 11/26/23 20:45 Dose: 50 mg Allergies Allergies Allergy/AdvReac Type Severity Reaction Status Date / Time No Known Allergies Allergy Unverified 01/28/20 16:07 [No Known Allergies*] Assessment & Plan Assessment & Plan (1) Schizoaffective disorder, bipolar type: Status: Acute Code(s): F25.0 - Schizoaffective disorder, bipolar type Assessment and Plan: 11/01 mildly up - positive mood=- but less irritable than in past visits 11/02 CTP (2) Dementia: Status: Acute Code(s): F03.90 - Unspecified dementia, unspecified severity, without behavioral disturbance, psychotic disturbance, mood disturbance, and anxiety Assessment and Plan: 11/01 ongoing dementia continue with reorientation and distraction prn - (3) Noncompliance: Status: Acute Code(s): Z91.199 - Patient's noncompliance with other medical treatment and regimen due to unspecified reason Assessment and Plan: seems to be taking medication currently - watches nurse crush them and put in ice cream Plan The patient is an elderly male with a past history of schizoaffective disorder, dementia, HIV and other medical problems, chronically mentally ill resident of assisted living facility referred to this facility after he became non compliant with medications with daniella and psychosis. The patient was assessed by crisis and transferring to this facility for psychiatric stabilization. At the moment of the interview the patient was able to contract for safety. Plan 1. Gather collateral information. 2. Continue with regular medications, we are not going to change his Depakote, olanzapine and Haldol Decanoate. 3. Reassessment with results. 4. 15 minutes checks since the patient is able to contract for safety. 5. Change Zyprexa to Zydis to avoid cheeking on October 02. 6. IM zyprexa ordered 10 mg t.i.d. p.r.n. refusal of p.o. as per court order. Total dose up to 30 mg a day. 7. Zyprexa increased up to 15 mg p.o. q.h.s. to target daniella and psychosis. Started on October 15. Zyprexa was increased up to 20 mg p.o. q.h.s. on October 17. 8. Increase Haldol up to 5 mg p.o. t.i.d. on October 22 and keep Haldol Decanoate as per court order. 9. Medical certificate issued. 10. Blood work f on November 18 without no changes. 11. Guardianship hearing for December 02 11/23/2023 Guardianship hearing pending patient referred for placement 11/24/2023 Continue plan of care 11/24: non-labile, cooperative, pleasant. continue current mgmt. 11/25: no change from yesterday. Reason for continued inpatient stay Substantial Risk for: inability to function and rapid decompensation Time Spent With Patient Time: Total time managing care of this patient today ____ minutes.
[2023-11-27 08:05] VITALS: BP 122/78; PULSE 87; RESP 18; TEMP 36.6; O2SAT 95
[2023-11-27] MEDS: amLODIPine Besylate 5 MG TABLET PO (08:13)
[2023-11-27] MEDS: Divalproex Sodium Sprinkles 125 MG CAP.DR.SPR 250 MG PO ×3 (08:13→20:21)
[2023-11-27] MEDS: HaloperidoL 5 MG TABLET PO ×3 (08:13→20:21)
[2023-11-27] MEDS: Thiamine HCL 100 MG TABLET PO (08:13)
[2023-11-27] MEDS: OLANZapine 5 MG TABLET PO ×2 (08:13→14:33)
[2023-11-27] MEDS: Emtricitabin/Tenofovir 200/300 TABLET 1 TAB PO (08:13)
[2023-11-27] MEDS: levETIRAcetam 500 MG TABLET PO ×2 (08:13→20:21)
[2023-11-27] MEDS: Rilpivirine HCL 25 MG TABLET PO (08:13)
--- NOTE | 2023-11-27 11:59 | P.PNPSI_ITS ---
Subjective Subjective Date of Service: 11/27/23 Reason For Visit: F32.9 Interim History: feeling well, no issues, requests, complaints. same report from technical staff engineer. Mental Status Exam Mental Status Exam Patient Appearance: Unkempt Patient Orientation: Person and Situation Level of Consciousness: Awake and Appropriate Patient Behavior: Guarded and Passive Mood Description: Calm Affect Description: Constricted Patient Cognition Impaired: Yes Ability to Follow Directions: Good Speech Pattern: Clear Hallucinations: None Delusions: Not Present Thought Process: Distracted and Slowed Thinking Thought Content: positive for Poverty of Content Judgement: Fair Diagnostics Vital Signs (24Hr): Vital Signs - 24 hr 11/26/23 19:56 11/27/23 08:05 Temperature 97.6 F 97.9 F Pulse Rate 78 87 Respiratory Rate 16 18 Blood Pressure 100/59 L 122/78 Pulse Oximetry 95 95 Oxygen Delivery Method Room Air Room Air BMI result Body Mass Index 18.6 Labs 11/19/23 08:03 11/19/23 08:03 Medications Medications Current Medications Acetaminophen (Acetaminophen 325 Mg Tablet) 650 mg PO Q6H PRN PRN Reason: Pain (Scale Score 1-3) Al Hydroxide/Mg Hydroxide (Magnesium Hydrox/Alum Hydrox 30 Ml Oral.Susp) 30 ml PO Q6H PRN PRN Reason: Heartburn/Nausea Last Admin: 11/12/23 06:20 Dose: 30 ml Albuterol Sulfate (Albuterol Sulfate 90 Mcg 8 Gm Inhaler) 2 puff INHALE RQ4H PRN PRN Reason: Wheezing Amlodipine Besylate (Amlodipine Besylate 5 Mg Tablet) 5 mg PO DAILY [facility]; Protocol Last Admin: 11/27/23 08:13 Dose: 5 mg Divalproex Sodium (Divalproex Sodium Sprinkles 125 Mg ) 250 mg PO TID [facility] Last Admin: 11/27/23 08:13 Dose: 250 mg Emtricitabine/Tenofovir (Emtricitabin/Tenofovir 200/300 Tablet) 1 tab PO DAILY [facility] Last Admin: 11/27/23 08:13 Dose: 1 tab Haloperidol (Haloperidol 5 Mg Tablet) 5 mg PO TID [facility] Last Admin: 11/27/23 08:13 Dose: 5 mg Haloperidol Decanoate (Haloperidol Decanoate 50 Mg/Ml Vial) 100 mg IM Q28D [facility] Last Admin: 11/25/23 20:59 Dose: 100 mg Levetiracetam (Levetiracetam 500 Mg Tablet) 500 mg PO BID [facility] Last Admin: 11/27/23 08:13 Dose: 500 mg Magnesium Hydroxide (Milk Of Magnesia 30 Ml Oral.Susp) 30 ml PO DAILY PRN PRN Reason: Constipation Mirtazapine (Mirtazapine 15 Mg Tablet) 15 mg PO BEDTIME [facility] Last Admin: 11/26/23 20:45 Dose: 15 mg Multivitamins/Vitamin C (Multivitamin Tablet) 1 tab PO BEDTIME [facility] Last Admin: 11/26/23 20:45 Dose: 1 tab Nicotine Polacrilex (Nicotine Polacrilex 2 Mg Gum) 4 mg BUCCAL Q2H PRN PRN Reason: Nicotine Cravings Olanzapine (Olanzapine 5 Mg Tablet) 5 mg PO BID@0800,1500 [facility] Last Admin: 11/27/23 08:13 Dose: 5 mg Olanzapine (Olanzapine 10 Mg Vial) 10 mg IM BEDTIME PRN PRN Reason: if refuses bedtime PO zyprexa Olanzapine (Olanzapine 10 Mg Vial) 5 mg IM BID@0800,1500 PRN PRN Reason: if refuses 0800/1500 PO zyprexa Last Admin: 10/13/23 14:58 Dose: 5 mg Olanzapine (Olanzapine 10 Mg Tablet) 20 mg PO BEDTIME [facility] Last Admin: 11/26/23 20:46 Dose: 20 mg Polyethylene Glycol (Polyethylene Glycol 3350 17 Gm Powd.Pack) 17 gm PO DAILY PRN PRN Reason: Constipation Rilpivirine (Rilpivirine Hcl 25 Mg Tablet) 25 mg PO DAILY [facility] Last Admin: 11/27/23 08:13 Dose: 25 mg Thiamine HCl (Thiamine Hcl 100 Mg Tablet) 100 mg PO DAILY [facility] Last Admin: 11/27/23 08:13 Dose: 100 mg Trazodone HCl (Trazodone Hcl 50 Mg Tablet) 50 mg PO BEDTIME MRX1 PRN PRN Reason: Insomnia Last Admin: 11/26/23 20:45 Dose: 50 mg Allergies Allergies Allergy/AdvReac Type Severity Reaction Status Date / Time No Known Allergies Allergy Unverified 01/28/20 16:07 [No Known Allergies*] Assessment & Plan Assessment & Plan (1) Schizoaffective disorder, bipolar type: Status: Acute Code(s): F25.0 - Schizoaffective disorder, bipolar type Assessment and Plan: 11/01 mildly up - positive mood=- but less irritable than in past visits 11/02 CTP (2) Dementia: Status: Acute Code(s): F03.90 - Unspecified dementia, unspecified severity, without behavioral disturbance, psychotic disturbance, mood disturbance, and anxiety Assessment and Plan: 11/01 ongoing dementia continue with reorientation and distraction prn - (3) Noncompliance: Status: Acute Code(s): Z91.199 - Patient's noncompliance with other medical treatment and regimen due to unspecified reason Assessment and Plan: seems to be taking medication currently - watches nurse crush them and put in ice cream Plan The patient is an elderly male with a past history of schizoaffective disorder, dementia, HIV and other medical problems, chronically mentally ill resident of assisted living facility referred to this facility after he became non compliant with medications with daniella and psychosis. The patient was assessed by crisis and transferring to this facility for psychiatric stabilization. At the moment of the interview the patient was able to contract for safety. Plan 1. Gather collateral information. 2. Continue with regular medications, we are not going to change his Depakote, olanzapine and Haldol Decanoate. 3. Reassessment with results. 4. 15 minutes checks since the patient is able to contract for safety. 5. Change Zyprexa to Zydis to avoid cheeking on October 02. 6. IM zyprexa ordered 10 mg t.i.d. p.r.n. refusal of p.o. as per court order. Total dose up to 30 mg a day. 7. Zyprexa increased up to 15 mg p.o. q.h.s. to target daniella and psychosis. Started on October 15. Zyprexa was increased up to 20 mg p.o. q.h.s. on October 17. 8. Increase Haldol up to 5 mg p.o. t.i.d. on October 22 and keep Haldol Decanoate as per court order. 9. Medical certificate issued. 10. Blood work f on November 18 without no changes. 11. Guardianship hearing for December 02 11/23/2023 Guardianship hearing pending patient referred for placement 11/24/2023 Continue plan of care 11/24: non-labile, cooperative, pleasant. continue current mgmt. 11/25: no change from yesterday. 11/26: stably pleasant, med-compliant. no behavioral concerns. continue current mgmt. Reason for continued inpatient stay Substantial Risk for: inability to function and rapid decompensation Time Spent With Patient Time: Total time managing care of this patient today ____ minutes.
--- NOTE | 2023-11-27 12:18 | MHC.CLN ---
F/U DIET=REGULAR. ENSURE TID TO INCREASE KCALS/NUTRITION. SUPPLEMENT PROVIDES 1050 KCALS, 60 G PROTEIN. CONTINUES WITH USUALLY GOOD INTAKE. ACCEPTS ENSURE SUPPLEMENT WEIGHT=58.9 KG WITH BMI=18.6. PATIENT IS UNDERWEIGHT. FOLLOW FOR INTAKE OF MEALS AND SUPPLEMENT. RD TO FOLLOW UP WEEKLY.
[2023-11-27 20:00] VITALS: BP 105/75; PULSE 86; RESP 16; TEMP 36.7; O2SAT 97
[2023-11-27] MEDS: OLANZapine 10 MG TABLET 20 MG PO (20:21)
[2023-11-27] MEDS: traZODone HCL 50 MG TABLET PO (20:21)
[2023-11-27] MEDS: Mirtazapine 15 MG TABLET PO (20:21)
[2023-11-27] MEDS: Multivitamin TABLET 1 TAB PO (20:21)
[2023-11-28 07:00] VITALS: BMI 18.8
[2023-11-28 07:55] VITALS: BP 116/79; PULSE 98; RESP 18; TEMP 36.4; O2SAT 96
[2023-11-28] MEDS: Emtricitabin/Tenofovir 200/300 TABLET 1 TAB PO (08:00)
[2023-11-28] MEDS: amLODIPine Besylate 5 MG TABLET PO (08:00)
[2023-11-28] MEDS: OLANZapine 5 MG TABLET PO ×2 (08:00→14:45)
[2023-11-28] MEDS: Divalproex Sodium Sprinkles 125 MG CAP.DR.SPR 250 MG PO ×3 (08:00→20:16)
[2023-11-28] MEDS: levETIRAcetam 500 MG TABLET PO ×2 (08:00→20:16)
[2023-11-28] MEDS: Thiamine HCL 100 MG TABLET PO (08:00)
[2023-11-28] MEDS: Rilpivirine HCL 25 MG TABLET PO (08:00)
[2023-11-28] MEDS: HaloperidoL 5 MG TABLET PO ×3 (08:01→20:16)
--- NOTE | 2023-11-28 17:14 | P.PNPSI_ITS ---
Subjective Subjective Date of Service: 11/28/23 Reason For Visit: F32.9 Interim History: calm, cooperative, no issues, complaints, or requests. same per corporate staff accountant. Mental Status Exam Mental Status Exam Patient Appearance: Appropriate Patient Orientation: Person and Situation Level of Consciousness: Awake and Appropriate Patient Behavior: Guarded and Passive Mood Description: Calm Affect Description: Constricted Patient Cognition Impaired: Yes Ability to Follow Directions: Good Speech Pattern: Clear Hallucinations: None Delusions: Not Present Thought Process: Distracted and Slowed Thinking Thought Content: positive for Poverty of Content Judgement: Fair Diagnostics Vital Signs (24Hr): Vital Signs - 24 hr 11/27/23 20:00 11/28/23 07:55 Temperature 98.1 F 97.6 F Pulse Rate 86 98 Respiratory Rate 16 18 Blood Pressure 105/75 116/79 Pulse Oximetry 97 96 Oxygen Delivery Method Room Air Room Air BMI result Body Mass Index 18.8 Labs 11/19/23 08:03 11/19/23 08:03 Medications Medications Current Medications Acetaminophen (Acetaminophen 325 Mg Tablet) 650 mg PO Q6H PRN PRN Reason: Pain (Scale Score 1-3) Al Hydroxide/Mg Hydroxide (Magnesium Hydrox/Alum Hydrox 30 Ml Oral.Susp) 30 ml PO Q6H PRN PRN Reason: Heartburn/Nausea Last Admin: 11/12/23 06:20 Dose: 30 ml Albuterol Sulfate (Albuterol Sulfate 90 Mcg 8 Gm Inhaler) 2 puff INHALE RQ4H PRN PRN Reason: Wheezing Amlodipine Besylate (Amlodipine Besylate 5 Mg Tablet) 5 mg PO DAILY [facility]; Protocol Last Admin: 11/28/23 08:00 Dose: 5 mg Divalproex Sodium (Divalproex Sodium Sprinkles 125 Mg ) 250 mg PO TID [facility] Last Admin: 11/28/23 14:45 Dose: 250 mg Emtricitabine/Tenofovir (Emtricitabin/Tenofovir 200/300 Tablet) 1 tab PO DAILY [facility] Last Admin: 11/28/23 08:00 Dose: 1 tab Haloperidol (Haloperidol 5 Mg Tablet) 5 mg PO TID [facility] Last Admin: 11/28/23 14:46 Dose: 5 mg Haloperidol Decanoate (Haloperidol Decanoate 50 Mg/Ml Vial) 100 mg IM Q28D [facility] Last Admin: 11/25/23 20:59 Dose: 100 mg Levetiracetam (Levetiracetam 500 Mg Tablet) 500 mg PO BID [facility] Last Admin: 11/28/23 08:00 Dose: 500 mg Magnesium Hydroxide (Milk Of Magnesia 30 Ml Oral.Susp) 30 ml PO DAILY PRN PRN Reason: Constipation Mirtazapine (Mirtazapine 15 Mg Tablet) 15 mg PO BEDTIME [facility] Last Admin: 11/27/23 20:21 Dose: 15 mg Multivitamins/Vitamin C (Multivitamin Tablet) 1 tab PO BEDTIME [facility] Last Admin: 11/27/23 20:21 Dose: 1 tab Nicotine Polacrilex (Nicotine Polacrilex 2 Mg Gum) 4 mg BUCCAL Q2H PRN PRN Reason: Nicotine Cravings Olanzapine (Olanzapine 5 Mg Tablet) 5 mg PO BID@0800,1500 [facility] Last Admin: 11/28/23 14:45 Dose: 5 mg Olanzapine (Olanzapine 10 Mg Vial) 10 mg IM BEDTIME PRN PRN Reason: if refuses bedtime PO zyprexa Olanzapine (Olanzapine 10 Mg Vial) 5 mg IM BID@0800,1500 PRN PRN Reason: if refuses 0800/1500 PO zyprexa Last Admin: 10/13/23 14:58 Dose: 5 mg Olanzapine (Olanzapine 10 Mg Tablet) 20 mg PO BEDTIME [facility] Last Admin: 11/27/23 20:21 Dose: 20 mg Polyethylene Glycol (Polyethylene Glycol 3350 17 Gm Powd.Pack) 17 gm PO DAILY PRN PRN Reason: Constipation Rilpivirine (Rilpivirine Hcl 25 Mg Tablet) 25 mg PO DAILY [facility] Last Admin: 11/28/23 08:00 Dose: 25 mg Thiamine HCl (Thiamine Hcl 100 Mg Tablet) 100 mg PO DAILY [facility] Last Admin: 11/28/23 08:00 Dose: 100 mg Trazodone HCl (Trazodone Hcl 50 Mg Tablet) 50 mg PO BEDTIME MRX1 PRN PRN Reason: Insomnia Last Admin: 11/27/23 20:21 Dose: 50 mg Allergies Allergies Allergy/AdvReac Type Severity Reaction Status Date / Time No Known Allergies Allergy Unverified 01/28/20 16:07 [No Known Allergies*] Assessment & Plan Assessment & Plan (1) Schizoaffective disorder, bipolar type: Status: Acute Code(s): F25.0 - Schizoaffective disorder, bipolar type Assessment and Plan: 11/01 mildly up - positive mood=- but less irritable than in past visits 11/02 CTP (2) Dementia: Status: Acute Code(s): F03.90 - Unspecified dementia, unspecified severity, without behavioral disturbance, psychotic disturbance, mood disturbance, and anxiety Assessment and Plan: 11/01 ongoing dementia continue with reorientation and distraction prn - (3) Noncompliance: Status: Acute Code(s): Z91.199 - Patient's noncompliance with other medical treatment and regimen due to unspecified reason Assessment and Plan: seems to be taking medication currently - watches nurse crush them and put in ice cream Plan The patient is an elderly male with a past history of schizoaffective disorder, dementia, HIV and other medical problems, chronically mentally ill resident of assisted living facility referred to this facility after he became non compliant with medications with daniella and psychosis. The patient was assessed by crisis and transferring to this facility for psychiatric stabilization. At the moment of the interview the patient was able to contract for safety. Plan 1. Gather collateral information. 2. Continue with regular medications, we are not going to change his Depakote, olanzapine and Haldol Decanoate. 3. Reassessment with results. 4. 15 minutes checks since the patient is able to contract for safety. 5. Change Zyprexa to Zydis to avoid cheeking on October 02. 6. IM zyprexa ordered 10 mg t.i.d. p.r.n. refusal of p.o. as per court order. Total dose up to 30 mg a day. 7. Zyprexa increased up to 15 mg p.o. q.h.s. to target daniella and psychosis. Started on October 15. Zyprexa was increased up to 20 mg p.o. q.h.s. on October 17. 8. Increase Haldol up to 5 mg p.o. t.i.d. on October 22 and keep Haldol Decanoate as per court order. 9. Medical certificate issued. 10. Blood work f on November 18 without no changes. 11. Guardianship hearing for December 02 11/23/2023 Guardianship hearing pending patient referred for placement 11/24/2023 Continue plan of care 11/24: non-labile, cooperative, pleasant. continue current mgmt. 11/25: no change from yesterday. 11/26: stably pleasant, med-compliant. no behavioral concerns. continue current mgmt. 11/27: no change. Reason for continued inpatient stay Substantial Risk for: inability to function and rapid decompensation Time Spent With Patient Time: Total time managing care of this patient today ____ minutes.
[2023-11-28 19:38] VITALS: BP 103/63; PULSE 89; RESP 18; TEMP 36.8; O2SAT 95
[2023-11-28] MEDS: OLANZapine 10 MG TABLET 20 MG PO (20:16)
[2023-11-28] MEDS: Mirtazapine 15 MG TABLET PO (20:16)
[2023-11-28] MEDS: Multivitamin TABLET 1 TAB PO (20:16)
[2023-11-29 07:55] VITALS: BP 112/77; PULSE 89; RESP 18; TEMP 36.9; O2SAT 97
[2023-11-29] MEDS: Divalproex Sodium Sprinkles 125 MG CAP.DR.SPR 250 MG PO ×3 (08:01→20:53)
[2023-11-29] MEDS: levETIRAcetam 500 MG TABLET PO ×2 (08:01→20:53)
[2023-11-29] MEDS: amLODIPine Besylate 5 MG TABLET PO (08:01)
[2023-11-29] MEDS: OLANZapine 5 MG TABLET PO ×2 (08:02→14:59)
[2023-11-29] MEDS: Emtricitabin/Tenofovir 200/300 TABLET 1 TAB PO (08:02)
[2023-11-29] MEDS: Rilpivirine HCL 25 MG TABLET PO (08:02)
[2023-11-29] MEDS: Thiamine HCL 100 MG TABLET PO (08:02)
[2023-11-29] MEDS: HaloperidoL 5 MG TABLET PO ×3 (08:02→20:53)
--- NOTE | 2023-11-29 16:54 | P.PNPSI_ITS ---
Subjective Subjective Date of Service: 11/29/23 Reason For Visit: F32.9 Subjective Notes: Conditional Voluntary Interim History: The nursing staff reported the patient had been fully compliant with treatment, pleasant cooperative no changes in his mental status. On interview the patient denies new symptoms, waiting for placement. The social insurance specialist reported that the hearing for the extension of the privileges of the guardian will be on December 07. Mental Status Exam Mental Status Exam Patient Appearance: Appropriate Patient Orientation: Person and Situation Level of Consciousness: Awake and Appropriate Patient Behavior: Guarded and Passive Mood Description: Withdrawn Affect Description: Constricted Patient Cognition Impaired: Yes Ability to Follow Directions: Good Speech Pattern: Clear Hallucinations: None Delusions: Ideas of Reference Thought Process: Distracted and Slowed Thinking Thought Content: positive for [place] and positive for Poverty of Content Judgement: Fair Diagnostics Vital Signs (24Hr): Vital Signs - 24 hr 11/28/23 19:38 11/29/23 07:55 Temperature 98.2 F 98.4 F Pulse Rate 89 89 Respiratory Rate 18 18 Blood Pressure 103/63 112/77 Pulse Oximetry 95 97 Oxygen Delivery Method Room Air Room Air BMI result Body Mass Index 18.8 Labs 11/19/23 08:03 11/19/23 08:03 Medications Medications Current Medications Acetaminophen (Acetaminophen 325 Mg Tablet) 650 mg PO Q6H PRN PRN Reason: Pain (Scale Score 1-3) Al Hydroxide/Mg Hydroxide (Magnesium Hydrox/Alum Hydrox 30 Ml Oral.Susp) 30 ml PO Q6H PRN PRN Reason: Heartburn/Nausea Last Admin: 11/12/23 06:20 Dose: 30 ml Albuterol Sulfate (Albuterol Sulfate 90 Mcg 8 Gm Inhaler) 2 puff INHALE RQ4H PRN PRN Reason: Wheezing Amlodipine Besylate (Amlodipine Besylate 5 Mg Tablet) 5 mg PO DAILY [facility]; Protocol Last Admin: 11/29/23 08:01 Dose: 5 mg Divalproex Sodium (Divalproex Sodium Sprinkles 125 Mg ) 250 mg PO TID [facility] Last Admin: 11/29/23 14:59 Dose: 250 mg Emtricitabine/Tenofovir (Emtricitabin/Tenofovir 200/300 Tablet) 1 tab PO DAILY [facility] Last Admin: 11/29/23 08:02 Dose: 1 tab Haloperidol (Haloperidol 5 Mg Tablet) 5 mg PO TID [facility] Last Admin: 11/29/23 14:59 Dose: 5 mg Haloperidol Decanoate (Haloperidol Decanoate 50 Mg/Ml Vial) 100 mg IM Q28D [facility] Last Admin: 11/25/23 20:59 Dose: 100 mg Levetiracetam (Levetiracetam 500 Mg Tablet) 500 mg PO BID [facility] Last Admin: 11/29/23 08:01 Dose: 500 mg Magnesium Hydroxide (Milk Of Magnesia 30 Ml Oral.Susp) 30 ml PO DAILY PRN PRN Reason: Constipation Mirtazapine (Mirtazapine 15 Mg Tablet) 15 mg PO BEDTIME [facility] Last Admin: 11/28/23 20:16 Dose: 15 mg Multivitamins/Vitamin C (Multivitamin Tablet) 1 tab PO BEDTIME [facility] Last Admin: 11/28/23 20:16 Dose: 1 tab Nicotine Polacrilex (Nicotine Polacrilex 2 Mg Gum) 4 mg BUCCAL Q2H PRN PRN Reason: Nicotine Cravings Olanzapine (Olanzapine 5 Mg Tablet) 5 mg PO BID@0800,1500 [facility] Last Admin: 11/29/23 14:59 Dose: 5 mg Olanzapine (Olanzapine 10 Mg Vial) 10 mg IM BEDTIME PRN PRN Reason: if refuses bedtime PO zyprexa Olanzapine (Olanzapine 10 Mg Vial) 5 mg IM BID@0800,1500 PRN PRN Reason: if refuses 0800/1500 PO zyprexa Last Admin: 10/13/23 14:58 Dose: 5 mg Olanzapine (Olanzapine 10 Mg Tablet) 20 mg PO BEDTIME [facility] Last Admin: 11/28/23 20:16 Dose: 20 mg Polyethylene Glycol (Polyethylene Glycol 3350 17 Gm Powd.Pack) 17 gm PO DAILY PRN PRN Reason: Constipation Rilpivirine (Rilpivirine Hcl 25 Mg Tablet) 25 mg PO DAILY [facility] Last Admin: 11/29/23 08:02 Dose: 25 mg Thiamine HCl (Thiamine Hcl 100 Mg Tablet) 100 mg PO DAILY [facility] Last Admin: 11/29/23 08:02 Dose: 100 mg Trazodone HCl (Trazodone Hcl 50 Mg Tablet) 50 mg PO BEDTIME MRX1 PRN PRN Reason: Insomnia Last Admin: 11/27/23 20:21 Dose: 50 mg Allergies Allergies Allergy/AdvReac Type Severity Reaction Status Date / Time No Known Allergies Allergy Unverified 01/28/20 16:07 [No Known Allergies*] Assessment & Plan Assessment & Plan (1) Schizoaffective disorder, bipolar type: Status: Acute Code(s): F25.0 - Schizoaffective disorder, bipolar type Assessment and Plan: 11/01 mildly up - positive mood=- but less irritable than in past visits 11/02 CTP (2) Dementia: Status: Acute Code(s): F03.90 - Unspecified dementia, unspecified severity, without behavioral disturbance, psychotic disturbance, mood disturbance, and anxiety Assessment and Plan: 11/01 ongoing dementia continue with reorientation and distraction prn - (3) Noncompliance: Status: Acute Code(s): Z91.199 - Patient's noncompliance with other medical treatment and regimen due to unspecified reason Assessment and Plan: seems to be taking medication currently - watches nurse crush them and put in ice cream Plan The patient is an elderly male with a past history of schizoaffective disorder, dementia, HIV and other medical problems, chronically mentally ill resident of assisted living facility referred to this facility after he became non compliant with medications with daniella and psychosis. The patient was assessed by crisis and transferring to this facility for psychiatric stabilization. At the moment of the interview the patient was able to contract for safety. Plan 1. Gather collateral information. 2. Continue with regular medications, we are not going to change his Depakote, olanzapine and Haldol Decanoate. 3. Reassessment with results. 4. 15 minutes checks since the patient is able to contract for safety. 5. Change Zyprexa to Zydis to avoid cheeking on October 02. 6. IM zyprexa ordered 10 mg t.i.d. p.r.n. refusal of p.o. as per court order. Total dose up to 30 mg a day. 7. Zyprexa increased up to 15 mg p.o. q.h.s. to target daniella and psychosis. Started on October 15. Zyprexa was increased up to 20 mg p.o. q.h.s. on October 17. 8. Increase Haldol up to 5 mg p.o. t.i.d. on October 22 and keep Haldol Decanoate as per court order. 9. Medical certificate issued. 10. Blood work f on November 18 without no changes. 11. Guardianship hearing for December 02 12. Waiting for placement Reason for continued inpatient stay Substantial Risk for: inability to function, rapid decompensation and med/psych decompensation Time Spent With Patient Time: Total time managing care of this patient today __20__ minutes.
[2023-11-29 20:00] VITALS: BP 107/68; PULSE 97; RESP 16; TEMP 36.8; O2SAT 92
[2023-11-29] MEDS: OLANZapine 10 MG TABLET 20 MG PO (20:53)
[2023-11-29] MEDS: Mirtazapine 15 MG TABLET PO (20:53)
[2023-11-29] MEDS: Multivitamin TABLET 1 TAB PO (20:53)
[2023-11-30 08:00] VITALS: BP 108/63; PULSE 91; RESP 16; TEMP 36.3; O2SAT 93
--- NOTE | 2023-11-30 08:12 | HO.PSYCHPN ---
Subjective Subjective Date of Service: 11/30/23 Reason For Visit: F32.9 Interim History: Met with patient. Discussed with nursing. flat. Isolative. Is taking medications. With entry writer was guarded. Minimal engagement. Medication Compliance: Yes Side effects from medications: No Attending Groups: No Review of Systems Acute medical concerns: No Review of Systems Review of Systems Yes Unobtainable due to mental status Mental Status Exam Mental Status Exam Patient Appearance: Appropriate Patient Orientation: Person and Situation Level of Consciousness: Awake and Appropriate Patient Behavior: Guarded and Passive Mood Description: Withdrawn Affect Description: Constricted Patient Cognition Impaired: Yes Ability to Follow Directions: Good Speech Pattern: Clear Hallucinations: None Delusions: Ideas of Reference Thought Process: Distracted and Slowed Thinking Thought Content: positive for [place] and positive for Poverty of Content Judgement: Fair Diagnostics Vital Signs (24Hr): Vital Signs - 24 hr 11/29/23 20:00 Temperature 98.3 F Pulse Rate 97 Respiratory Rate 16 Blood Pressure 107/68 Pulse Oximetry 92 Oxygen Delivery Method Room Air BMI result Body Mass Index 18.8 Labs 11/19/23 08:03 11/19/23 08:03 Medications Medications Current Medications Acetaminophen (Acetaminophen 325 Mg Tablet) 650 mg PO Q6H PRN PRN Reason: Pain (Scale Score 1-3) Al Hydroxide/Mg Hydroxide (Magnesium Hydrox/Alum Hydrox 30 Ml Oral.Susp) 30 ml PO Q6H PRN PRN Reason: Heartburn/Nausea Last Admin: 11/12/23 06:20 Dose: 30 ml Albuterol Sulfate (Albuterol Sulfate 90 Mcg 8 Gm Inhaler) 2 puff INHALE RQ4H PRN PRN Reason: Wheezing Amlodipine Besylate (Amlodipine Besylate 5 Mg Tablet) 5 mg PO DAILY [facility]; Protocol Last Admin: 11/29/23 08:01 Dose: 5 mg Divalproex Sodium (Divalproex Sodium Sprinkles 125 Mg ) 250 mg PO TID [facility] Last Admin: 11/29/23 20:53 Dose: 250 mg Emtricitabine/Tenofovir (Emtricitabin/Tenofovir 200/300 Tablet) 1 tab PO DAILY [facility] Last Admin: 11/29/23 08:02 Dose: 1 tab Haloperidol (Haloperidol 5 Mg Tablet) 5 mg PO TID [facility] Last Admin: 11/29/23 20:53 Dose: 5 mg Haloperidol Decanoate (Haloperidol Decanoate 50 Mg/Ml Vial) 100 mg IM Q28D [facility] Last Admin: 11/25/23 20:59 Dose: 100 mg Levetiracetam (Levetiracetam 500 Mg Tablet) 500 mg PO BID [facility] Last Admin: 11/29/23 20:53 Dose: 500 mg Magnesium Hydroxide (Milk Of Magnesia 30 Ml Oral.Susp) 30 ml PO DAILY PRN PRN Reason: Constipation Mirtazapine (Mirtazapine 15 Mg Tablet) 15 mg PO BEDTIME [facility] Last Admin: 11/29/23 20:53 Dose: 15 mg Multivitamins/Vitamin C (Multivitamin Tablet) 1 tab PO BEDTIME [facility] Last Admin: 11/29/23 20:53 Dose: 1 tab Nicotine Polacrilex (Nicotine Polacrilex 2 Mg Gum) 4 mg BUCCAL Q2H PRN PRN Reason: Nicotine Cravings Olanzapine (Olanzapine 5 Mg Tablet) 5 mg PO BID@0800,1500 [facility] Last Admin: 11/29/23 14:59 Dose: 5 mg Olanzapine (Olanzapine 10 Mg Vial) 10 mg IM BEDTIME PRN PRN Reason: if refuses bedtime PO zyprexa Olanzapine (Olanzapine 10 Mg Vial) 5 mg IM BID@0800,1500 PRN PRN Reason: if refuses 0800/1500 PO zyprexa Last Admin: 10/13/23 14:58 Dose: 5 mg Olanzapine (Olanzapine 10 Mg Tablet) 20 mg PO BEDTIME [facility] Last Admin: 11/29/23 20:53 Dose: 20 mg Polyethylene Glycol (Polyethylene Glycol 3350 17 Gm Powd.Pack) 17 gm PO DAILY PRN PRN Reason: Constipation Rilpivirine (Rilpivirine Hcl 25 Mg Tablet) 25 mg PO DAILY [facility] Last Admin: 11/29/23 08:02 Dose: 25 mg Thiamine HCl (Thiamine Hcl 100 Mg Tablet) 100 mg PO DAILY [facility] Last Admin: 11/29/23 08:02 Dose: 100 mg Trazodone HCl (Trazodone Hcl 50 Mg Tablet) 50 mg PO BEDTIME MRX1 PRN PRN Reason: Insomnia Last Admin: 11/27/23 20:21 Dose: 50 mg Allergies Allergies Allergy/AdvReac Type Severity Reaction Status Date / Time No Known Allergies Allergy Unverified 01/28/20 16:07 [No Known Allergies*] Assessment & Plan Assessment & Plan (1) Schizoaffective disorder, bipolar type: Status: Acute Code(s): F25.0 - Schizoaffective disorder, bipolar type Assessment and Plan: 11/01 mildly up - positive mood=- but less irritable than in past visits 11/02 CTP (2) Dementia: Status: Acute Code(s): F03.90 - Unspecified dementia, unspecified severity, without behavioral disturbance, psychotic disturbance, mood disturbance, and anxiety Assessment and Plan: 11/01 ongoing dementia continue with reorientation and distraction prn - (3) Noncompliance: Status: Acute Code(s): Z91.199 - Patient's noncompliance with other medical treatment and regimen due to unspecified reason Assessment and Plan: seems to be taking medication currently - watches nurse crush them and put in ice cream Plan The patient is an elderly male with a past history of schizoaffective disorder, dementia, HIV and other medical problems, chronically mentally ill resident of assisted living facility referred to this facility after he became non compliant with medications with daniella and psychosis. The patient was assessed by crisis and transferring to this facility for psychiatric stabilization. At the moment of the interview the patient was able to contract for safety. Plan 1. Gather collateral information. 2. Continue with regular medications, we are not going to change his Depakote, olanzapine and Haldol Decanoate. 3. Reassessment with results. 4. 15 minutes checks since the patient is able to contract for safety. 5. Change Zyprexa to Zydis to avoid cheeking on October 02. 6. IM zyprexa ordered 10 mg t.i.d. p.r.n. refusal of p.o. as per court order. Total dose up to 30 mg a day. 7. Zyprexa increased up to 15 mg p.o. q.h.s. to target daniella and psychosis. Started on October 15. Zyprexa was increased up to 20 mg p.o. q.h.s. on October 17. 8. Increase Haldol up to 5 mg p.o. t.i.d. on October 22 and keep Haldol Decanoate as per court order. 9. Medical certificate issued. 10. Blood work f on November 18 without no changes. 11. Guardianship hearing for December 02 12. Waiting for placement 11/30/2023: No changes. Noted guardianship hearing schedule 12/02 Reason for continued inpatient stay Substantial Risk for: inability to function Time Spent With Patient Time: Total time managing care of this patient today ____ minutes.
[2023-11-30] MEDS: Thiamine HCL 100 MG TABLET PO (08:34)
[2023-11-30] MEDS: levETIRAcetam 500 MG TABLET PO ×2 (08:35→21:05)
[2023-11-30] MEDS: Divalproex Sodium Sprinkles 125 MG CAP.DR.SPR 250 MG PO ×3 (08:35→21:05)
[2023-11-30] MEDS: Emtricitabin/Tenofovir 200/300 TABLET 1 TAB PO (08:35)
[2023-11-30] MEDS: OLANZapine 5 MG TABLET PO ×2 (08:35→15:02)
[2023-11-30] MEDS: HaloperidoL 5 MG TABLET PO ×3 (08:35→21:05)
[2023-11-30] MEDS: amLODIPine Besylate 5 MG TABLET PO (08:35)
[2023-11-30] MEDS: Rilpivirine HCL 25 MG TABLET PO (08:35)
[2023-11-30 20:00] VITALS: BP 110/77; PULSE 94; RESP 18; TEMP 36.2; O2SAT 97
[2023-11-30] MEDS: Mirtazapine 15 MG TABLET PO (21:05)
[2023-11-30] MEDS: Multivitamin TABLET 1 TAB PO (21:05)
[2023-11-30] MEDS: OLANZapine 10 MG TABLET 20 MG PO (21:05)
[2023-12-01 08:15] VITALS: BP 114/80; PULSE 100; RESP 18; TEMP 36; O2SAT 99
[2023-12-01] MEDS: Divalproex Sodium Sprinkles 125 MG CAP.DR.SPR 250 MG PO ×3 (08:45→20:04)
[2023-12-01] MEDS: Rilpivirine HCL 25 MG TABLET PO (08:45)
[2023-12-01] MEDS: levETIRAcetam 500 MG TABLET PO ×2 (08:46→20:05)
[2023-12-01] MEDS: Emtricitabin/Tenofovir 200/300 TABLET 1 TAB PO (08:46)
[2023-12-01] MEDS: Thiamine HCL 100 MG TABLET PO (08:46)
[2023-12-01] MEDS: HaloperidoL 5 MG TABLET PO ×3 (08:46→20:05)
[2023-12-01] MEDS: OLANZapine 5 MG TABLET PO ×2 (08:46→14:50)
[2023-12-01] MEDS: amLODIPine Besylate 5 MG TABLET PO (08:47)
--- NOTE | 2023-12-01 10:27 | HO.PSYCHPN ---
Subjective Subjective Date of Service: 12/01/23 Reason For Visit: F32.9 Interim History: Met with patient. Discussed with nursing. Atending groups/watch TV. Brighter. Is taking medications. With television writer was pleasant, sated he was doing well and had no concerns. Feels safe. Medication Compliance: Yes Side effects from medications: No Attending Groups: Yes Review of Systems Acute medical concerns: No Review of Systems Review of Systems Yes all other systems are reviewed and are negative Mental Status Exam Mental Status Exam Patient Appearance: Appropriate Patient Orientation: Person and Situation Level of Consciousness: Awake and Appropriate Patient Behavior: Talkative and Passive Mood Description: Appropriate Affect Description: Constricted Patient Cognition Impaired: Yes Ability to Follow Directions: Good Speech Pattern: Clear Diagnostics Vital Signs (24Hr): Vital Signs - 24 hr 11/30/23 20:00 12/01/23 08:15 Temperature 97.2 F 96.8 F Pulse Rate 94 100 Respiratory Rate 18 18 Blood Pressure 110/77 114/80 Pulse Oximetry 97 99 Oxygen Delivery Method Room Air Room Air BMI result Body Mass Index 18.8 Labs 11/19/23 08:03 11/19/23 08:03 Medications Medications Current Medications Acetaminophen (Acetaminophen 325 Mg Tablet) 650 mg PO Q6H PRN PRN Reason: Pain (Scale Score 1-3) Al Hydroxide/Mg Hydroxide (Magnesium Hydrox/Alum Hydrox 30 Ml Oral.Susp) 30 ml PO Q6H PRN PRN Reason: Heartburn/Nausea Last Admin: 11/12/23 06:20 Dose: 30 ml Albuterol Sulfate (Albuterol Sulfate 90 Mcg 8 Gm Inhaler) 2 puff INHALE RQ4H PRN PRN Reason: Wheezing Amlodipine Besylate (Amlodipine Besylate 5 Mg Tablet) 5 mg PO DAILY [facility]; Protocol Last Admin: 12/01/23 08:47 Dose: 5 mg Divalproex Sodium (Divalproex Sodium Sprinkles 125 Mg ) 250 mg PO TID [facility] Last Admin: 12/01/23 08:45 Dose: 250 mg Emtricitabine/Tenofovir (Emtricitabin/Tenofovir 200/300 Tablet) 1 tab PO DAILY [facility] Last Admin: 12/01/23 08:46 Dose: 1 tab Haloperidol (Haloperidol 5 Mg Tablet) 5 mg PO TID [facility] Last Admin: 12/01/23 08:46 Dose: 5 mg Haloperidol Decanoate (Haloperidol Decanoate 50 Mg/Ml Vial) 100 mg IM Q28D [facility] Last Admin: 11/25/23 20:59 Dose: 100 mg Levetiracetam (Levetiracetam 500 Mg Tablet) 500 mg PO BID [facility] Last Admin: 12/01/23 08:46 Dose: 500 mg Magnesium Hydroxide (Milk Of Magnesia 30 Ml Oral.Susp) 30 ml PO DAILY PRN PRN Reason: Constipation Mirtazapine (Mirtazapine 15 Mg Tablet) 15 mg PO BEDTIME [facility] Last Admin: 11/30/23 21:05 Dose: 15 mg Multivitamins/Vitamin C (Multivitamin Tablet) 1 tab PO BEDTIME [facility] Last Admin: 11/30/23 21:05 Dose: 1 tab Nicotine Polacrilex (Nicotine Polacrilex 2 Mg Gum) 4 mg BUCCAL Q2H PRN PRN Reason: Nicotine Cravings Olanzapine (Olanzapine 5 Mg Tablet) 5 mg PO BID@0800,1500 [facility] Last Admin: 12/01/23 08:46 Dose: 5 mg Olanzapine (Olanzapine 10 Mg Vial) 10 mg IM BEDTIME PRN PRN Reason: if refuses bedtime PO zyprexa Olanzapine (Olanzapine 10 Mg Vial) 5 mg IM BID@0800,1500 PRN PRN Reason: if refuses 0800/1500 PO zyprexa Last Admin: 10/13/23 14:58 Dose: 5 mg Olanzapine (Olanzapine 10 Mg Tablet) 20 mg PO BEDTIME [facility] Last Admin: 11/30/23 21:05 Dose: 20 mg Polyethylene Glycol (Polyethylene Glycol 3350 17 Gm Powd.Pack) 17 gm PO DAILY PRN PRN Reason: Constipation Rilpivirine (Rilpivirine Hcl 25 Mg Tablet) 25 mg PO DAILY [facility] Last Admin: 12/01/23 08:45 Dose: 25 mg Thiamine HCl (Thiamine Hcl 100 Mg Tablet) 100 mg PO DAILY [facility] Last Admin: 12/01/23 08:46 Dose: 100 mg Trazodone HCl (Trazodone Hcl 50 Mg Tablet) 50 mg PO BEDTIME MRX1 PRN PRN Reason: Insomnia Last Admin: 11/27/23 20:21 Dose: 50 mg Allergies Allergies Allergy/AdvReac Type Severity Reaction Status Date / Time No Known Allergies Allergy Unverified 01/28/20 16:07 [No Known Allergies*] Assessment & Plan Assessment & Plan (1) Schizoaffective disorder, bipolar type: Status: Acute Code(s): F25.0 - Schizoaffective disorder, bipolar type Assessment and Plan: 11/01 mildly up - positive mood=- but less irritable than in past visits 11/02 CTP (2) Dementia: Status: Acute Code(s): F03.90 - Unspecified dementia, unspecified severity, without behavioral disturbance, psychotic disturbance, mood disturbance, and anxiety Assessment and Plan: 11/01 ongoing dementia continue with reorientation and distraction prn - (3) Noncompliance: Status: Acute Code(s): Z91.199 - Patient's noncompliance with other medical treatment and regimen due to unspecified reason Assessment and Plan: seems to be taking medication currently - watches nurse crush them and put in ice cream Plan The patient is an elderly male with a past history of schizoaffective disorder, dementia, HIV and other medical problems, chronically mentally ill resident of assisted living facility referred to this facility after he became non compliant with medications with daniella and psychosis. The patient was assessed by crisis and transferring to this facility for psychiatric stabilization. At the moment of the interview the patient was able to contract for safety. Plan 1. Gather collateral information. 2. Continue with regular medications, we are not going to change his Depakote, olanzapine and Haldol Decanoate. 3. Reassessment with results. 4. 15 minutes checks since the patient is able to contract for safety. 5. Change Zyprexa to Zydis to avoid cheeking on October 02. 6. IM zyprexa ordered 10 mg t.i.d. p.r.n. refusal of p.o. as per court order. Total dose up to 30 mg a day. 7. Zyprexa increased up to 15 mg p.o. q.h.s. to target daniella and psychosis. Started on October 15. Zyprexa was increased up to 20 mg p.o. q.h.s. on October 17. 8. Increase Haldol up to 5 mg p.o. t.i.d. on October 22 and keep Haldol Decanoate as per court order. 9. Medical certificate issued. 10. Blood work f on November 18 without no changes. 11. Guardianship hearing for December 02 12. Waiting for placement 12/01/2023: No changes. Noted guardianship hearing schedule 12/02 Reason for continued inpatient stay Substantial Risk for: inability to function Time Spent With Patient Time: Total time managing care of this patient today ____ minutes.
[2023-12-01 20:00] VITALS: BP 89/51; PULSE 87; RESP 16; TEMP 36.2; O2SAT 96
[2023-12-01] MEDS: OLANZapine 10 MG TABLET 20 MG PO (20:04)
[2023-12-01] MEDS: Multivitamin TABLET 1 TAB PO (20:05)
[2023-12-01] MEDS: Mirtazapine 15 MG TABLET PO (20:05)
[2023-12-02 08:48] VITALS: BP 139/59; PULSE 90; RESP 16; TEMP 36.2; O2SAT 93
[2023-12-02] MEDS: Rilpivirine HCL 25 MG TABLET PO (08:48)
[2023-12-02] MEDS: Thiamine HCL 100 MG TABLET PO (08:48)
[2023-12-02] MEDS: Divalproex Sodium Sprinkles 125 MG CAP.DR.SPR 250 MG PO ×3 (08:48→21:10)
[2023-12-02] MEDS: amLODIPine Besylate 5 MG TABLET PO (08:48)
[2023-12-02] MEDS: levETIRAcetam 500 MG TABLET PO ×2 (08:49→21:10)
[2023-12-02] MEDS: Emtricitabin/Tenofovir 200/300 TABLET 1 TAB PO (08:50)
[2023-12-02] MEDS: HaloperidoL 5 MG TABLET PO ×3 (08:51→21:11)
[2023-12-02] MEDS: OLANZapine 5 MG TABLET PO ×2 (08:51→15:15)
--- NOTE | 2023-12-02 14:07 | HO.PSYCHPN ---
Subjective Subjective Date of Service: 12/02/23 Reason For Visit: F32.9 Subjective Notes: Conditional Voluntary Interim History: The nursing staff reported the patient had been fully compliant with treatment no changes in his mental status. On interview the patient denies new symptoms, waiting for placement. Mental Status Exam Mental Status Exam Patient Appearance: Appropriate Patient Orientation: Person and Situation Level of Consciousness: Awake and Appropriate Patient Behavior: Guarded and Passive Mood Description: Withdrawn Affect Description: Constricted Patient Cognition Impaired: Yes Ability to Follow Directions: Good Speech Pattern: Clear Hallucinations: None Delusions: Not Present Thought Process: Distracted and Slowed Thinking Thought Content: positive for [place] and positive for Poverty of Content Judgement: Poor Diagnostics Vital Signs (24Hr): Vital Signs - 24 hr 12/01/23 20:00 12/02/23 08:48 12/02/23 08:48 Temperature 97.1 F 97.1 F Pulse Rate 87 90 Respiratory Rate 16 16 Blood Pressure 89/51 L 139/59 L 139/59 L Pulse Oximetry 96 93 Oxygen Delivery Method Room Air Room Air BMI result Body Mass Index 18.8 Labs 11/19/23 08:03 11/19/23 08:03 Medications Medications Current Medications Acetaminophen (Acetaminophen 325 Mg Tablet) 650 mg PO Q6H PRN PRN Reason: Pain (Scale Score 1-3) Al Hydroxide/Mg Hydroxide (Magnesium Hydrox/Alum Hydrox 30 Ml Oral.Susp) 30 ml PO Q6H PRN PRN Reason: Heartburn/Nausea Last Admin: 11/12/23 06:20 Dose: 30 ml Albuterol Sulfate (Albuterol Sulfate 90 Mcg 8 Gm Inhaler) 2 puff INHALE RQ4H PRN PRN Reason: Wheezing Amlodipine Besylate (Amlodipine Besylate 5 Mg Tablet) 5 mg PO DAILY [facility]; Protocol Last Admin: 12/02/23 08:48 Dose: 5 mg Divalproex Sodium (Divalproex Sodium Sprinkles 125 Mg ) 250 mg PO TID [facility] Last Admin: 12/02/23 08:48 Dose: 250 mg Emtricitabine/Tenofovir (Emtricitabin/Tenofovir 200/300 Tablet) 1 tab PO DAILY [facility] Last Admin: 12/02/23 08:50 Dose: 1 tab Haloperidol (Haloperidol 5 Mg Tablet) 5 mg PO TID [facility] Last Admin: 12/02/23 08:51 Dose: 5 mg Haloperidol Decanoate (Haloperidol Decanoate 50 Mg/Ml Vial) 100 mg IM Q28D [facility] Last Admin: 11/25/23 20:59 Dose: 100 mg Levetiracetam (Levetiracetam 500 Mg Tablet) 500 mg PO BID [facility] Last Admin: 12/02/23 08:49 Dose: 500 mg Magnesium Hydroxide (Milk Of Magnesia 30 Ml Oral.Susp) 30 ml PO DAILY PRN PRN Reason: Constipation Mirtazapine (Mirtazapine 15 Mg Tablet) 15 mg PO BEDTIME [facility] Last Admin: 12/01/23 20:05 Dose: 15 mg Multivitamins/Vitamin C (Multivitamin Tablet) 1 tab PO BEDTIME [facility] Last Admin: 12/01/23 20:05 Dose: 1 tab Nicotine Polacrilex (Nicotine Polacrilex 2 Mg Gum) 4 mg BUCCAL Q2H PRN PRN Reason: Nicotine Cravings Olanzapine (Olanzapine 5 Mg Tablet) 5 mg PO BID@0800,1500 [facility] Last Admin: 12/02/23 08:51 Dose: 5 mg Olanzapine (Olanzapine 10 Mg Vial) 10 mg IM BEDTIME PRN PRN Reason: if refuses bedtime PO zyprexa Olanzapine (Olanzapine 10 Mg Vial) 5 mg IM BID@0800,1500 PRN PRN Reason: if refuses 0800/1500 PO zyprexa Last Admin: 10/13/23 14:58 Dose: 5 mg Olanzapine (Olanzapine 10 Mg Tablet) 20 mg PO BEDTIME [facility] Last Admin: 12/01/23 20:04 Dose: 20 mg Polyethylene Glycol (Polyethylene Glycol 3350 17 Gm Powd.Pack) 17 gm PO DAILY PRN PRN Reason: Constipation Rilpivirine (Rilpivirine Hcl 25 Mg Tablet) 25 mg PO DAILY [facility] Last Admin: 12/02/23 08:48 Dose: 25 mg Thiamine HCl (Thiamine Hcl 100 Mg Tablet) 100 mg PO DAILY [facility] Last Admin: 12/02/23 08:48 Dose: 100 mg Trazodone HCl (Trazodone Hcl 50 Mg Tablet) 50 mg PO BEDTIME MRX1 PRN PRN Reason: Insomnia Last Admin: 11/27/23 20:21 Dose: 50 mg Allergies Allergies Allergy/AdvReac Type Severity Reaction Status Date / Time No Known Allergies Allergy Unverified 01/28/20 16:07 [No Known Allergies*] Assessment & Plan Assessment & Plan (1) Schizoaffective disorder, bipolar type: Status: Acute Code(s): F25.0 - Schizoaffective disorder, bipolar type Assessment and Plan: 11/01 mildly up - positive mood=- but less irritable than in past visits 11/02 CTP (2) Dementia: Status: Acute Code(s): F03.90 - Unspecified dementia, unspecified severity, without behavioral disturbance, psychotic disturbance, mood disturbance, and anxiety Assessment and Plan: 11/01 ongoing dementia continue with reorientation and distraction prn - (3) Noncompliance: Status: Acute Code(s): Z91.199 - Patient's noncompliance with other medical treatment and regimen due to unspecified reason Assessment and Plan: seems to be taking medication currently - watches nurse crush them and put in ice cream Plan The patient is an elderly male with a past history of schizoaffective disorder, dementia, HIV and other medical problems, chronically mentally ill resident of assisted living facility referred to this facility after he became non compliant with medications with daniella and psychosis. The patient was assessed by crisis and transferring to this facility for psychiatric stabilization. At the moment of the interview the patient was able to contract for safety. Plan 1. Gather collateral information. 2. Continue with regular medications, we are not going to change his Depakote, olanzapine and Haldol Decanoate. 3. Reassessment with results. 4. 15 minutes checks since the patient is able to contract for safety. 5. Change Zyprexa to Zydis to avoid cheeking on October 02. 6. IM zyprexa ordered 10 mg t.i.d. p.r.n. refusal of p.o. as per court order. Total dose up to 30 mg a day. 7. Zyprexa increased up to 15 mg p.o. q.h.s. to target daniella and psychosis. Started on October 15. Zyprexa was increased up to 20 mg p.o. q.h.s. on October 17. 8. Increase Haldol up to 5 mg p.o. t.i.d. on October 22 and keep Haldol Decanoate as per court order. 9. Medical certificate issued. 10. Blood work f on November 18 without no changes. 11. Guardianship hearing for [facility] 23rd 12. Waiting for placement Reason for continued inpatient stay Substantial Risk for: inability to function, rapid decompensation and med/psych decompensation Time Spent With Patient Time: Total time managing care of this patient today _20___ minutes.
[2023-12-02 20:00] VITALS: BP 102/66; PULSE 92; RESP 18; TEMP 36.2; O2SAT 93
[2023-12-02] MEDS: OLANZapine 10 MG TABLET 20 MG PO (21:10)
[2023-12-02] MEDS: Multivitamin TABLET 1 TAB PO (21:10)
[2023-12-02] MEDS: Mirtazapine 15 MG TABLET PO (21:11)
[2023-12-03 08:00] VITALS: BP 111/73; PULSE 96; RESP 16; TEMP 36.2; O2SAT 99
[2023-12-03] MEDS: amLODIPine Besylate 5 MG TABLET PO (09:01)
[2023-12-03] MEDS: Rilpivirine HCL 25 MG TABLET PO (09:01)
[2023-12-03] MEDS: Divalproex Sodium Sprinkles 125 MG CAP.DR.SPR 250 MG PO ×3 (09:01→21:14)
[2023-12-03] MEDS: levETIRAcetam 500 MG TABLET PO ×2 (09:01→21:14)
[2023-12-03] MEDS: HaloperidoL 5 MG TABLET PO ×3 (09:01→21:14)
[2023-12-03] MEDS: Emtricitabin/Tenofovir 200/300 TABLET 1 TAB PO (09:01)
[2023-12-03] MEDS: OLANZapine 5 MG TABLET PO ×2 (09:01→15:05)
[2023-12-03] MEDS: Thiamine HCL 100 MG TABLET PO (09:01)
--- NOTE | 2023-12-03 13:39 | P.PNPSI_ITS ---
Subjective Subjective Date of Service: 12/03/23 Reason For Visit: F32.9 Subjective Notes: Conditional Voluntary Interim History: The nursing staff reported the patient had been pleasant, cooperative polite slept 7 hours. The social science research assistant reported that today is the hearing for the expansion of the [place]hl of the guardianship. On interview the patient denies new symptoms, waiting for placement. Mental Status Exam Mental Status Exam Patient Appearance: Appropriate Patient Orientation: Person and Situation Level of Consciousness: Awake and Appropriate Patient Behavior: Guarded and Passive Mood Description: Withdrawn Affect Description: Constricted Patient Cognition Impaired: Yes Ability to Follow Directions: Good Speech Pattern: Clear Hallucinations: Auditory Delusions: Paranoid Ideation and Ideas of Reference Thought Process: Distracted and Slowed Thinking Thought Content: positive for [place] and positive for Poverty of Content Judgement: Fair Diagnostics Vital Signs (24Hr): Vital Signs - 24 hr 12/02/23 20:00 12/03/23 08:00 Temperature 97.2 F 97.1 F Pulse Rate 92 96 Respiratory Rate 18 16 Blood Pressure 102/66 111/73 Pulse Oximetry 93 99 Oxygen Delivery Method Room Air Room Air BMI result Body Mass Index 18.8 Labs 11/19/23 08:03 11/19/23 08:03 Medications Medications Current Medications Acetaminophen (Acetaminophen 325 Mg Tablet) 650 mg PO Q6H PRN PRN Reason: Pain (Scale Score 1-3) Al Hydroxide/Mg Hydroxide (Magnesium Hydrox/Alum Hydrox 30 Ml Oral.Susp) 30 ml PO Q6H PRN PRN Reason: Heartburn/Nausea Last Admin: 11/12/23 06:20 Dose: 30 ml Albuterol Sulfate (Albuterol Sulfate 90 Mcg 8 Gm Inhaler) 2 puff INHALE RQ4H PRN PRN Reason: Wheezing Amlodipine Besylate (Amlodipine Besylate 5 Mg Tablet) 5 mg PO DAILY [facility]; Protocol Last Admin: 12/03/23 09:01 Dose: 5 mg Divalproex Sodium (Divalproex Sodium Sprinkles 125 Mg ) 250 mg PO TID [facility] Last Admin: 12/03/23 09:01 Dose: 250 mg Emtricitabine/Tenofovir (Emtricitabin/Tenofovir 200/300 Tablet) 1 tab PO DAILY [facility] Last Admin: 12/03/23 09:01 Dose: 1 tab Haloperidol (Haloperidol 5 Mg Tablet) 5 mg PO TID [facility] Last Admin: 12/03/23 09:01 Dose: 5 mg Haloperidol Decanoate (Haloperidol Decanoate 50 Mg/Ml Vial) 100 mg IM Q28D [facility] Last Admin: 11/25/23 20:59 Dose: 100 mg Levetiracetam (Levetiracetam 500 Mg Tablet) 500 mg PO BID [facility] Last Admin: 12/03/23 09:01 Dose: 500 mg Magnesium Hydroxide (Milk Of Magnesia 30 Ml Oral.Susp) 30 ml PO DAILY PRN PRN Reason: Constipation Mirtazapine (Mirtazapine 15 Mg Tablet) 15 mg PO BEDTIME [facility] Last Admin: 12/02/23 21:11 Dose: 15 mg Multivitamins/Vitamin C (Multivitamin Tablet) 1 tab PO BEDTIME [facility] Last Admin: 12/02/23 21:10 Dose: 1 tab Nicotine Polacrilex (Nicotine Polacrilex 2 Mg Gum) 4 mg BUCCAL Q2H PRN PRN Reason: Nicotine Cravings Olanzapine (Olanzapine 5 Mg Tablet) 5 mg PO BID@0800,1500 [facility] Last Admin: 12/03/23 09:01 Dose: 5 mg Olanzapine (Olanzapine 10 Mg Vial) 10 mg IM BEDTIME PRN PRN Reason: if refuses bedtime PO zyprexa Olanzapine (Olanzapine 10 Mg Vial) 5 mg IM BID@0800,1500 PRN PRN Reason: if refuses 0800/1500 PO zyprexa Last Admin: 10/13/23 14:58 Dose: 5 mg Olanzapine (Olanzapine 10 Mg Tablet) 20 mg PO BEDTIME [facility] Last Admin: 12/02/23 21:10 Dose: 20 mg Polyethylene Glycol (Polyethylene Glycol 3350 17 Gm Powd.Pack) 17 gm PO DAILY PRN PRN Reason: Constipation Rilpivirine (Rilpivirine Hcl 25 Mg Tablet) 25 mg PO DAILY [facility] Last Admin: 12/03/23 09:01 Dose: 25 mg Thiamine HCl (Thiamine Hcl 100 Mg Tablet) 100 mg PO DAILY [facility] Last Admin: 12/03/23 09:01 Dose: 100 mg Trazodone HCl (Trazodone Hcl 50 Mg Tablet) 50 mg PO BEDTIME MRX1 PRN PRN Reason: Insomnia Last Admin: 11/27/23 20:21 Dose: 50 mg Allergies Allergies Allergy/AdvReac Type Severity Reaction Status Date / Time No Known Allergies Allergy Unverified 01/28/20 16:07 [No Known Allergies*] Assessment & Plan Assessment & Plan (1) Schizoaffective disorder, bipolar type: Status: Acute Code(s): F25.0 - Schizoaffective disorder, bipolar type Assessment and Plan: 11/01 mildly up - positive mood=- but less irritable than in past visits 11/02 CTP (2) Dementia: Status: Acute Code(s): F03.90 - Unspecified dementia, unspecified severity, without behavioral disturbance, psychotic disturbance, mood disturbance, and anxiety Assessment and Plan: 11/01 ongoing dementia continue with reorientation and distraction prn - (3) Noncompliance: Status: Acute Code(s): Z91.199 - Patient's noncompliance with other medical treatment and regimen due to unspecified reason Assessment and Plan: seems to be taking medication currently - watches nurse crush them and put in ice cream Plan The patient is an elderly male with a past history of schizoaffective disorder, dementia, HIV and other medical problems, chronically mentally ill resident of assisted living facility referred to this facility after he became non compliant with medications with daniella and psychosis. The patient was assessed by crisis and transferring to this facility for psychiatric stabilization. At the moment of the interview the patient was able to contract for safety. Plan 1. Gather collateral information. 2. Continue with regular medications, we are not going to change his Depakote, olanzapine and Haldol Decanoate. 3. Reassessment with results. 4. 15 minutes checks since the patient is able to contract for safety. 5. Change Zyprexa to Zydis to avoid cheeking on October 02. 6. IM zyprexa ordered 10 mg t.i.d. p.r.n. refusal of p.o. as per court order. Total dose up to 30 mg a day. 7. Zyprexa increased up to 15 mg p.o. q.h.s. to target daniella and psychosis. Started on October 15. Zyprexa was increased up to 20 mg p.o. q.h.s. on October 17. 8. Increase Haldol up to 5 mg p.o. t.i.d. on October 22 and keep Haldol Decanoate as per court order. 9. Medical certificate issued. 10. Blood work f on November 18 without no changes. 11. Guardianship hearing for December 02. Waiting for placement Reason for continued inpatient stay Substantial Risk for: inability to function, rapid decompensation and med/psych decompensation Time Spent With Patient Time: Total time managing care of this patient today __20__ minutes.
[2023-12-03 20:00] VITALS: BP 100/72; PULSE 85; RESP 16; TEMP 36.3; O2SAT 94
[2023-12-03] MEDS: OLANZapine 10 MG TABLET 20 MG PO (21:14)
[2023-12-03] MEDS: Mirtazapine 15 MG TABLET PO (21:14)
[2023-12-03] MEDS: Multivitamin TABLET 1 TAB PO (21:14)
[2023-12-03] MEDS: traZODone HCL 50 MG TABLET PO (21:14)
[2023-12-04] MEDS: Rilpivirine HCL 25 MG TABLET PO (08:19)
[2023-12-04 08:20] VITALS: BP 131/86; PULSE 90; RESP 16; TEMP 36.3; O2SAT 95
[2023-12-04] MEDS: amLODIPine Besylate 5 MG TABLET PO (08:20)
[2023-12-04] MEDS: levETIRAcetam 500 MG TABLET PO ×2 (08:20→20:45)
[2023-12-04] MEDS: OLANZapine 5 MG TABLET PO ×2 (08:20→14:45)
[2023-12-04] MEDS: Thiamine HCL 100 MG TABLET PO (08:21)
[2023-12-04] MEDS: Divalproex Sodium Sprinkles 125 MG CAP.DR.SPR 250 MG PO ×3 (08:21→20:45)
[2023-12-04] MEDS: HaloperidoL 5 MG TABLET PO ×3 (08:22→20:45)
[2023-12-04] MEDS: Emtricitabin/Tenofovir 200/300 TABLET 1 TAB PO (08:22)
--- NOTE | 2023-12-04 11:58 | MHC.CLN ---
F/U DIET=REGULAR. ENSURE TID TO INCREASE KCALS/NUTRITION. SUPPLEMENT PROVIDES 1050 KCALS, 60 G PROTEIN. CONTINUES WITH USUALLY GOOD INTAKE. ACCEPTS ENSURE SUPPLEMENT FAVORABLE SIGNIFICANT WEIGHT GAIN SINCE ADMISSION, +13.4% FOLLOW FOR INTAKE OF MEALS AND SUPPLEMENT. RD TO FOLLOW UP WEEKLY.
--- NOTE | 2023-12-04 14:59 | HO.PSYCHPN ---
Subjective Subjective Date of Service: 12/04/23 Reason For Visit: F32.9 Subjective Notes: Conditional Voluntary Interim History: The nursing staff reported the patient had been fully compliant with treatment no changes in his mental status. On interview the patient denies new symptoms attending to a few groups. Mental Status Exam Mental Status Exam Patient Appearance: Well Grooomed and Appropriate Patient Orientation: Person and Situation Level of Consciousness: Awake and Appropriate Patient Behavior: Guarded and Passive Mood Description: Withdrawn Affect Description: Constricted Patient Cognition Impaired: Yes Ability to Follow Directions: Good Speech Pattern: Clear Hallucinations: None Delusions: Ideas of Reference Thought Process: Distracted and Slowed Thinking Thought Content: positive for [place] and positive for Poverty of Content Judgement: Fair Diagnostics Vital Signs (24Hr): Vital Signs - 24 hr 12/03/23 20:00 12/04/23 08:20 12/04/23 08:20 Temperature 97.4 F 97.3 F Pulse Rate 85 90 Respiratory Rate 16 16 Blood Pressure 100/72 131/86 131/86 Pulse Oximetry 94 95 Oxygen Delivery Method Room Air Room Air BMI result Body Mass Index 18.8 Labs 11/19/23 08:03 11/19/23 08:03 Medications Medications Current Medications Acetaminophen (Acetaminophen 325 Mg Tablet) 650 mg PO Q6H PRN PRN Reason: Pain (Scale Score 1-3) Al Hydroxide/Mg Hydroxide (Magnesium Hydrox/Alum Hydrox 30 Ml Oral.Susp) 30 ml PO Q6H PRN PRN Reason: Heartburn/Nausea Last Admin: 11/12/23 06:20 Dose: 30 ml Albuterol Sulfate (Albuterol Sulfate 90 Mcg 8 Gm Inhaler) 2 puff INHALE RQ4H PRN PRN Reason: Wheezing Amlodipine Besylate (Amlodipine Besylate 5 Mg Tablet) 5 mg PO DAILY [facility]; Protocol Last Admin: 12/04/23 08:20 Dose: 5 mg Divalproex Sodium (Divalproex Sodium Sprinkles 125 Mg ) 250 mg PO TID [facility] Last Admin: 12/04/23 14:45 Dose: 250 mg Emtricitabine/Tenofovir (Emtricitabin/Tenofovir 200/300 Tablet) 1 tab PO DAILY [facility] Last Admin: 12/04/23 08:22 Dose: 1 tab Haloperidol (Haloperidol 5 Mg Tablet) 5 mg PO TID [facility] Last Admin: 12/04/23 14:45 Dose: 5 mg Haloperidol Decanoate (Haloperidol Decanoate 50 Mg/Ml Vial) 100 mg IM Q28D [facility] Last Admin: 11/25/23 20:59 Dose: 100 mg Levetiracetam (Levetiracetam 500 Mg Tablet) 500 mg PO BID [facility] Last Admin: 12/04/23 08:20 Dose: 500 mg Magnesium Hydroxide (Milk Of Magnesia 30 Ml Oral.Susp) 30 ml PO DAILY PRN PRN Reason: Constipation Mirtazapine (Mirtazapine 15 Mg Tablet) 15 mg PO BEDTIME [facility] Last Admin: 12/03/23 21:14 Dose: 15 mg Multivitamins/Vitamin C (Multivitamin Tablet) 1 tab PO BEDTIME [facility] Last Admin: 12/03/23 21:14 Dose: 1 tab Nicotine Polacrilex (Nicotine Polacrilex 2 Mg Gum) 4 mg BUCCAL Q2H PRN PRN Reason: Nicotine Cravings Olanzapine (Olanzapine 5 Mg Tablet) 5 mg PO BID@0800,1500 [facility] Last Admin: 12/04/23 14:45 Dose: 5 mg Olanzapine (Olanzapine 10 Mg Vial) 10 mg IM BEDTIME PRN PRN Reason: if refuses bedtime PO zyprexa Olanzapine (Olanzapine 10 Mg Vial) 5 mg IM BID@0800,1500 PRN PRN Reason: if refuses 0800/1500 PO zyprexa Last Admin: 10/13/23 14:58 Dose: 5 mg Olanzapine (Olanzapine 10 Mg Tablet) 20 mg PO BEDTIME [facility] Last Admin: 12/03/23 21:14 Dose: 20 mg Polyethylene Glycol (Polyethylene Glycol 3350 17 Gm Powd.Pack) 17 gm PO DAILY PRN PRN Reason: Constipation Rilpivirine (Rilpivirine Hcl 25 Mg Tablet) 25 mg PO DAILY [facility] Last Admin: 12/04/23 08:19 Dose: 25 mg Thiamine HCl (Thiamine Hcl 100 Mg Tablet) 100 mg PO DAILY [facility] Last Admin: 12/04/23 08:21 Dose: 100 mg Trazodone HCl (Trazodone Hcl 50 Mg Tablet) 50 mg PO BEDTIME MRX1 PRN PRN Reason: Insomnia Last Admin: 12/03/23 21:14 Dose: 50 mg Allergies Allergies Allergy/AdvReac Type Severity Reaction Status Date / Time No Known Allergies Allergy Unverified 01/28/20 16:07 [No Known Allergies*] Assessment & Plan Assessment & Plan (1) Schizoaffective disorder, bipolar type: Status: Acute Code(s): F25.0 - Schizoaffective disorder, bipolar type Assessment and Plan: 11/01 mildly up - positive mood=- but less irritable than in past visits 11/02 CTP (2) Dementia: Status: Acute Code(s): F03.90 - Unspecified dementia, unspecified severity, without behavioral disturbance, psychotic disturbance, mood disturbance, and anxiety Assessment and Plan: 11/01 ongoing dementia continue with reorientation and distraction prn - (3) Noncompliance: Status: Acute Code(s): Z91.199 - Patient's noncompliance with other medical treatment and regimen due to unspecified reason Assessment and Plan: seems to be taking medication currently - watches nurse crush them and put in ice cream Plan The patient is an elderly male with a past history of schizoaffective disorder, dementia, HIV and other medical problems, chronically mentally ill resident of assisted living facility referred to this facility after he became non compliant with medications with daniella and psychosis. The patient was assessed by crisis and transferring to this facility for psychiatric stabilization. At the moment of the interview the patient was able to contract for safety. Plan 1. Gather collateral information. 2. Continue with regular medications, we are not going to change his Depakote, olanzapine and Haldol Decanoate. 3. Reassessment with results. 4. 15 minutes checks since the patient is able to contract for safety. 5. Change Zyprexa to Zydis to avoid cheeking on October 02. 6. IM zyprexa ordered 10 mg t.i.d. p.r.n. refusal of p.o. as per court order. Total dose up to 30 mg a day. 7. Zyprexa increased up to 15 mg p.o. q.h.s. to target daniella and psychosis. Started on October 15. Zyprexa was increased up to 20 mg p.o. q.h.s. on October 17. 8. Increase Haldol up to 5 mg p.o. t.i.d. on October 22 and keep Haldol Decanoate as per court order. 9. Medical certificate issued. 10. Blood work f on November 18 without no changes. 11. Guardianship hearing for [facility]ju 23rd 12. Waiting for placement Reason for continued inpatient stay Substantial Risk for: inability to function, rapid decompensation and med/psych decompensation Time Spent With Patient Time: Total time managing care of this patient today __20__ minutes.
[2023-12-04 19:53] VITALS: BP 93/58; PULSE 90; RESP 14; TEMP 36.6; O2SAT 92
[2023-12-04] MEDS: OLANZapine 10 MG TABLET 20 MG PO (20:45)
[2023-12-04] MEDS: Multivitamin TABLET 1 TAB PO (20:45)
[2023-12-04] MEDS: Mirtazapine 15 MG TABLET PO (20:45)
[2023-12-05 07:00] VITALS: BMI 18.8
[2023-12-05 08:00] VITALS: BP 141/69; PULSE 96; RESP 16; TEMP 36.1; O2SAT 97
[2023-12-05] MEDS: levETIRAcetam 500 MG TABLET PO ×2 (08:45→20:24)
[2023-12-05] MEDS: amLODIPine Besylate 5 MG TABLET PO (08:45)
[2023-12-05] MEDS: Rilpivirine HCL 25 MG TABLET PO (08:45)
[2023-12-05] MEDS: HaloperidoL 5 MG TABLET PO ×3 (08:45→20:24)
[2023-12-05] MEDS: Divalproex Sodium Sprinkles 125 MG CAP.DR.SPR 250 MG PO ×3 (08:45→20:24)
[2023-12-05] MEDS: Thiamine HCL 100 MG TABLET PO (08:45)
[2023-12-05] MEDS: OLANZapine 5 MG TABLET PO ×2 (08:45→15:29)
[2023-12-05] MEDS: Emtricitabin/Tenofovir 200/300 TABLET 1 TAB PO (08:45)
--- NOTE | 2023-12-05 17:55 | P.PNPSI_ITS ---
Subjective Subjective Date of Service: 12/05/23 Reason For Visit: F32.9 Interim History: met with patient; discussed with team pt calm, polite and cooperative on approach; says he is doing fine and can't complain. Pt says does not need anything. STaff reports he remains in good behavioral control. Mental Status Exam Mental Status Exam Patient Appearance: Well Grooomed and Appropriate Patient Orientation: Person and Situation Level of Consciousness: Awake and Appropriate Patient Behavior: Guarded and Passive Mood Description: Withdrawn Affect Description: Constricted Patient Cognition Impaired: Yes Ability to Follow Directions: Good Speech Pattern: Clear Hallucinations: None Delusions: Ideas of Reference Thought Process: Distracted and Slowed Thinking Thought Content: positive for [place] and positive for Poverty of Content Judgement: Fair Diagnostics Vital Signs (24Hr): Vital Signs - 24 hr 12/04/23 19:53 12/05/23 08:00 Temperature 98 F 97 F Pulse Rate 90 96 Respiratory Rate 14 16 Blood Pressure 93/58 L 141/69 H Pulse Oximetry 92 97 Oxygen Delivery Method Room Air Room Air BMI result Body Mass Index 18.8 Labs 11/19/23 08:03 11/19/23 08:03 Medications Medications Current Medications Acetaminophen (Acetaminophen 325 Mg Tablet) 650 mg PO Q6H PRN PRN Reason: Pain (Scale Score 1-3) Al Hydroxide/Mg Hydroxide (Magnesium Hydrox/Alum Hydrox 30 Ml Oral.Susp) 30 ml PO Q6H PRN PRN Reason: Heartburn/Nausea Last Admin: 11/12/23 06:20 Dose: 30 ml Albuterol Sulfate (Albuterol Sulfate 90 Mcg 8 Gm Inhaler) 2 puff INHALE RQ4H PRN PRN Reason: Wheezing Amlodipine Besylate (Amlodipine Besylate 5 Mg Tablet) 5 mg PO DAILY [facility]; Protocol Last Admin: 12/05/23 08:45 Dose: 5 mg Divalproex Sodium (Divalproex Sodium Sprinkles 125 Mg ) 250 mg PO TID [facility] Last Admin: 12/05/23 15:29 Dose: 250 mg Emtricitabine/Tenofovir (Emtricitabin/Tenofovir 200/300 Tablet) 1 tab PO DAILY [facility] Last Admin: 12/05/23 08:45 Dose: 1 tab Haloperidol (Haloperidol 5 Mg Tablet) 5 mg PO TID [facility] Last Admin: 12/05/23 15:29 Dose: 5 mg Haloperidol Decanoate (Haloperidol Decanoate 50 Mg/Ml Vial) 100 mg IM Q28D [facility] Last Admin: 11/25/23 20:59 Dose: 100 mg Levetiracetam (Levetiracetam 500 Mg Tablet) 500 mg PO BID [facility] Last Admin: 12/05/23 08:45 Dose: 500 mg Magnesium Hydroxide (Milk Of Magnesia 30 Ml Oral.Susp) 30 ml PO DAILY PRN PRN Reason: Constipation Mirtazapine (Mirtazapine 15 Mg Tablet) 15 mg PO BEDTIME [facility] Last Admin: 12/04/23 20:45 Dose: 15 mg Multivitamins/Vitamin C (Multivitamin Tablet) 1 tab PO BEDTIME [facility] Last Admin: 12/04/23 20:45 Dose: 1 tab Nicotine Polacrilex (Nicotine Polacrilex 2 Mg Gum) 4 mg BUCCAL Q2H PRN PRN Reason: Nicotine Cravings Olanzapine (Olanzapine 5 Mg Tablet) 5 mg PO BID@0800,1500 [facility] Last Admin: 12/05/23 15:29 Dose: 5 mg Olanzapine (Olanzapine 10 Mg Vial) 10 mg IM BEDTIME PRN PRN Reason: if refuses bedtime PO zyprexa Olanzapine (Olanzapine 10 Mg Vial) 5 mg IM BID@0800,1500 PRN PRN Reason: if refuses 0800/1500 PO zyprexa Last Admin: 10/13/23 14:58 Dose: 5 mg Olanzapine (Olanzapine 10 Mg Tablet) 20 mg PO BEDTIME [facility] Last Admin: 12/04/23 20:45 Dose: 20 mg Polyethylene Glycol (Polyethylene Glycol 3350 17 Gm Powd.Pack) 17 gm PO DAILY PRN PRN Reason: Constipation Rilpivirine (Rilpivirine Hcl 25 Mg Tablet) 25 mg PO DAILY [facility] Last Admin: 12/05/23 08:45 Dose: 25 mg Thiamine HCl (Thiamine Hcl 100 Mg Tablet) 100 mg PO DAILY [facility] Last Admin: 12/05/23 08:45 Dose: 100 mg Trazodone HCl (Trazodone Hcl 50 Mg Tablet) 50 mg PO BEDTIME MRX1 PRN PRN Reason: Insomnia Last Admin: 12/03/23 21:14 Dose: 50 mg Allergies Allergies Allergy/AdvReac Type Severity Reaction Status Date / Time No Known Allergies Allergy Unverified 01/28/20 16:07 [No Known Allergies*] Assessment & Plan Assessment & Plan (1) Schizoaffective disorder, bipolar type: Status: Acute Code(s): F25.0 - Schizoaffective disorder, bipolar type Assessment and Plan: 11/01 mildly up - positive mood=- but less irritable than in past visits 11/02 CTP (2) Dementia: Status: Acute Code(s): F03.90 - Unspecified dementia, unspecified severity, without behavioral disturbance, psychotic disturbance, mood disturbance, and anxiety Assessment and Plan: 11/01 ongoing dementia continue with reorientation and distraction prn - (3) Noncompliance: Status: Acute Code(s): Z91.199 - Patient's noncompliance with other medical treatment and regimen due to unspecified reason Assessment and Plan: seems to be taking medication currently - watches nurse crush them and put in ice cream Plan The patient is an elderly male with a past history of schizoaffective disorder, dementia, HIV and other medical problems, chronically mentally ill resident of assisted living facility referred to this facility after he became non compliant with medications with daniella and psychosis. The patient was assessed by crisis and transferring to this facility for psychiatric stabilization. At the moment of the interview the patient was able to contract for safety. Plan 1. Gather collateral information. 2. Continue with regular medications, we are not going to change his Depakote, olanzapine and Haldol Decanoate. 3. Reassessment with results. 4. 15 minutes checks since the patient is able to contract for safety. 5. Change Zyprexa to Zydis to avoid cheeking on October 02. 6. IM zyprexa ordered 10 mg t.i.d. p.r.n. refusal of p.o. as per court order. Total dose up to 30 mg a day. 7. Zyprexa increased up to 15 mg p.o. q.h.s. to target daniella and psychosis. Started on October 15. Zyprexa was increased up to 20 mg p.o. q.h.s. on October 17. 8. Increase Haldol up to 5 mg p.o. t.i.d. on October 22 and keep Haldol Decanoate as per court order. 9. Medical certificate issued. 10. Blood work f on November 18 without no changes. 11. Guardianship hearing for Anju 23rd 12. Waiting for placement Patient educated on: diagnosis Informed Consent: understands Reason for continued inpatient stay Substantial Risk for: rapid decompensation Time Spent With Patient Time: Total time managing care of this patient today ____ minutes.
[2023-12-05 19:49] VITALS: BP 92/64; PULSE 90; RESP 16; TEMP 36.6; O2SAT 93
[2023-12-05] MEDS: Mirtazapine 15 MG TABLET PO (20:23)
[2023-12-05] MEDS: Multivitamin TABLET 1 TAB PO (20:23)
[2023-12-05] MEDS: OLANZapine 10 MG TABLET 20 MG PO (20:23)
[2023-12-06 08:20] VITALS: BP 139/84; PULSE 105; RESP 15; TEMP 36.8; O2SAT 97
[2023-12-06] MEDS: Emtricitabin/Tenofovir 200/300 TABLET 1 TAB PO (08:22)
[2023-12-06] MEDS: Divalproex Sodium Sprinkles 125 MG CAP.DR.SPR 250 MG PO ×3 (08:22→20:50)
[2023-12-06] MEDS: amLODIPine Besylate 5 MG TABLET PO (08:22)
[2023-12-06] MEDS: Rilpivirine HCL 25 MG TABLET PO (08:22)
[2023-12-06] MEDS: OLANZapine 5 MG TABLET PO ×2 (08:22→14:10)
[2023-12-06] MEDS: Thiamine HCL 100 MG TABLET PO (08:22)
[2023-12-06] MEDS: levETIRAcetam 500 MG TABLET PO ×2 (08:22→20:50)
[2023-12-06] MEDS: HaloperidoL 5 MG TABLET PO ×3 (08:22→20:49)
--- NOTE | 2023-12-06 14:01 | P.PNPSI_ITS ---
Subjective Subjective Date of Service: 12/06/23 Reason For Visit: F32.9 Subjective Notes: Conditional Voluntary Interim History: The nursing staff reported the patient had been compliant with treatment no changes in mental status. The director of social work reported they are waiting for placement. On interview the patient denies new symptoms slept 7 hours. Mental Status Exam Mental Status Exam Patient Appearance: Appropriate Patient Orientation: Person and Situation Level of Consciousness: Awake and Appropriate Patient Behavior: Guarded and Passive Mood Description: Withdrawn Affect Description: Calm Patient Cognition Impaired: Yes Ability to Follow Directions: Good Speech Pattern: Clear Hallucinations: None Delusions: Not Present Thought Process: Linear Thought Content: positive for [place] Judgement: Fair Diagnostics Vital Signs (24Hr): Vital Signs - 24 hr 12/05/23 19:49 12/06/23 08:20 Temperature 97.8 F 98.2 F Pulse Rate 90 105 H Respiratory Rate 16 15 Blood Pressure 92/64 139/84 Pulse Oximetry 93 97 Oxygen Delivery Method Room Air Room Air BMI result Body Mass Index 18.8 Labs 11/19/23 08:03 11/19/23 08:03 Medications Medications Current Medications Acetaminophen (Acetaminophen 325 Mg Tablet) 650 mg PO Q6H PRN PRN Reason: Pain (Scale Score 1-3) Al Hydroxide/Mg Hydroxide (Magnesium Hydrox/Alum Hydrox 30 Ml Oral.Susp) 30 ml PO Q6H PRN PRN Reason: Heartburn/Nausea Last Admin: 11/12/23 06:20 Dose: 30 ml Albuterol Sulfate (Albuterol Sulfate 90 Mcg 8 Gm Inhaler) 2 puff INHALE RQ4H PRN PRN Reason: Wheezing Amlodipine Besylate (Amlodipine Besylate 5 Mg Tablet) 5 mg PO DAILY [facility]; Protocol Last Admin: 12/06/23 08:22 Dose: 5 mg Divalproex Sodium (Divalproex Sodium Sprinkles 125 Mg ) 250 mg PO TID [facility] Last Admin: 12/06/23 08:22 Dose: 250 mg Emtricitabine/Tenofovir (Emtricitabin/Tenofovir 200/300 Tablet) 1 tab PO DAILY [facility] Last Admin: 12/06/23 08:22 Dose: 1 tab Haloperidol (Haloperidol 5 Mg Tablet) 5 mg PO TID [facility] Last Admin: 12/06/23 08:22 Dose: 5 mg Haloperidol Decanoate (Haloperidol Decanoate 50 Mg/Ml Vial) 100 mg IM Q28D [facility] Last Admin: 11/25/23 20:59 Dose: 100 mg Levetiracetam (Levetiracetam 500 Mg Tablet) 500 mg PO BID [facility] Last Admin: 12/06/23 08:22 Dose: 500 mg Magnesium Hydroxide (Milk Of Magnesia 30 Ml Oral.Susp) 30 ml PO DAILY PRN PRN Reason: Constipation Mirtazapine (Mirtazapine 15 Mg Tablet) 15 mg PO BEDTIME [facility] Last Admin: 12/05/23 20:23 Dose: 15 mg Multivitamins/Vitamin C (Multivitamin Tablet) 1 tab PO BEDTIME [facility] Last Admin: 12/05/23 20:23 Dose: 1 tab Nicotine Polacrilex (Nicotine Polacrilex 2 Mg Gum) 4 mg BUCCAL Q2H PRN PRN Reason: Nicotine Cravings Olanzapine (Olanzapine 5 Mg Tablet) 5 mg PO BID@0800,1500 [facility] Last Admin: 12/06/23 08:22 Dose: 5 mg Olanzapine (Olanzapine 10 Mg Vial) 10 mg IM BEDTIME PRN PRN Reason: if refuses bedtime PO zyprexa Olanzapine (Olanzapine 10 Mg Vial) 5 mg IM BID@0800,1500 PRN PRN Reason: if refuses 0800/1500 PO zyprexa Last Admin: 10/13/23 14:58 Dose: 5 mg Olanzapine (Olanzapine 10 Mg Tablet) 20 mg PO BEDTIME [facility] Last Admin: 12/05/23 20:23 Dose: 20 mg Polyethylene Glycol (Polyethylene Glycol 3350 17 Gm Powd.Pack) 17 gm PO DAILY PRN PRN Reason: Constipation Rilpivirine (Rilpivirine Hcl 25 Mg Tablet) 25 mg PO DAILY [facility] Last Admin: 12/06/23 08:22 Dose: 25 mg Thiamine HCl (Thiamine Hcl 100 Mg Tablet) 100 mg PO DAILY [facility] Last Admin: 12/06/23 08:22 Dose: 100 mg Trazodone HCl (Trazodone Hcl 50 Mg Tablet) 50 mg PO BEDTIME MRX1 PRN PRN Reason: Insomnia Last Admin: 12/03/23 21:14 Dose: 50 mg Allergies Allergies Allergy/AdvReac Type Severity Reaction Status Date / Time No Known Allergies Allergy Unverified 01/28/20 16:07 [No Known Allergies*] Assessment & Plan Assessment & Plan (1) Schizoaffective disorder, bipolar type: Status: Acute Code(s): F25.0 - Schizoaffective disorder, bipolar type Assessment and Plan: 11/01 mildly up - positive mood=- but less irritable than in past visits 11/02 CTP (2) Dementia: Status: Acute Code(s): F03.90 - Unspecified dementia, unspecified severity, without behavioral disturbance, psychotic disturbance, mood disturbance, and anxiety Assessment and Plan: 11/01 ongoing dementia continue with reorientation and distraction prn - (3) Noncompliance: Status: Acute Code(s): Z91.199 - Patient's noncompliance with other medical treatment and regimen due to unspecified reason Assessment and Plan: seems to be taking medication currently - watches nurse crush them and put in ice cream Plan The patient is an elderly male with a past history of schizoaffective disorder, dementia, HIV and other medical problems, chronically mentally ill resident of assisted living facility referred to this facility after he became non compliant with medications with daniella and psychosis. The patient was assessed by crisis and transferring to this facility for psychiatric stabilization. At the moment of the interview the patient was able to contract for safety. Plan 1. Gather collateral information. 2. Continue with regular medications, we are not going to change his Depakote, olanzapine and Haldol Decanoate. 3. Reassessment with results. 4. 15 minutes checks since the patient is able to contract for safety. 5. Change Zyprexa to Zydis to avoid cheeking on October 02. 6. IM zyprexa ordered 10 mg t.i.d. p.r.n. refusal of p.o. as per court order. Total dose up to 30 mg a day. 7. Zyprexa increased up to 15 mg p.o. q.h.s. to target daniella and psychosis. Started on October 15. Zyprexa was increased up to 20 mg p.o. q.h.s. on October 17. 8. Increase Haldol up to 5 mg p.o. t.i.d. on October 22 and keep Haldol Decanoate as per court order. 9. Medical certificate issued. 10. Blood work f on November 18 without no changes. 11. Guardianship hearing for December 02 12. Waiting for placement Reason for continued inpatient stay Substantial Risk for: inability to function, rapid decompensation and med/psych decompensation Time Spent With Patient Time: Total time managing care of this patient today __20__ minutes.
[2023-12-06 20:00] VITALS: BP 102/65; PULSE 85; RESP 16; TEMP 36.6; O2SAT 95
[2023-12-06] MEDS: Mirtazapine 15 MG TABLET PO (20:49)
[2023-12-06] MEDS: traZODone HCL 50 MG TABLET PO (20:49)
[2023-12-06] MEDS: Multivitamin TABLET 1 TAB PO (20:50)
[2023-12-06] MEDS: OLANZapine 10 MG TABLET 20 MG PO (20:50)
[2023-12-07 07:55] VITALS: BP 125/77; PULSE 96; RESP 20; TEMP 36.6; O2SAT 97
[2023-12-07 08:50] VITALS: BP 125/77
[2023-12-07] MEDS: levETIRAcetam 500 MG TABLET PO ×2 (08:50→20:37)
[2023-12-07] MEDS: Divalproex Sodium Sprinkles 125 MG CAP.DR.SPR 250 MG PO ×3 (08:50→20:37)
[2023-12-07] MEDS: Rilpivirine HCL 25 MG TABLET PO (08:50)
[2023-12-07] MEDS: Thiamine HCL 100 MG TABLET PO (08:50)
[2023-12-07] MEDS: OLANZapine 5 MG TABLET PO ×2 (08:50→15:54)
[2023-12-07] MEDS: HaloperidoL 5 MG TABLET PO ×3 (08:50→20:38)
[2023-12-07] MEDS: amLODIPine Besylate 5 MG TABLET PO (08:50)
--- NOTE | 2023-12-07 12:31 | P.PNPSI_ITS ---
Subjective Subjective Date of Service: 12/07/23 Reason For Visit: F32.9 Subjective Notes: Section 7 and Section 8 Interim History: Patient was seen and discussed in rounds today. Records and plans were reviewed. He has been medication compliant. He is pleasant and generally stable. Eating and sleeping adequately. No complaints. No dangerous behaviors. No changes Review of Systems Review of Systems Yes all other systems are reviewed and are negative Mental Status Exam Mental Status Exam Patient Appearance: Appropriate Patient Orientation: Person and Situation Level of Consciousness: Awake and Appropriate Patient Behavior: Guarded and Passive Mood Description: Withdrawn Affect Description: Calm Patient Cognition Impaired: Yes Ability to Follow Directions: Good Speech Pattern: Clear Hallucinations: None Delusions: Not Present Thought Process: Linear Thought Content: positive for Circumstantial Judgement: Fair Diagnostics Vital Signs (24Hr): Vital Signs - 24 hr 12/06/23 20:00 12/07/23 07:55 12/07/23 08:50 Temperature 98 F 97.9 F Pulse Rate 85 96 Respiratory Rate 16 20 Blood Pressure 102/65 125/77 125/77 Pulse Oximetry 95 97 Oxygen Delivery Method Room Air Room Air BMI result Body Mass Index 18.8 Labs 11/19/23 08:03 11/19/23 08:03 Medications Medications Current Medications Acetaminophen (Acetaminophen 325 Mg Tablet) 650 mg PO Q6H PRN PRN Reason: Pain (Scale Score 1-3) Al Hydroxide/Mg Hydroxide (Magnesium Hydrox/Alum Hydrox 30 Ml Oral.Susp) 30 ml PO Q6H PRN PRN Reason: Heartburn/Nausea Last Admin: 11/12/23 06:20 Dose: 30 ml Albuterol Sulfate (Albuterol Sulfate 90 Mcg 8 Gm Inhaler) 2 puff INHALE RQ4H PRN PRN Reason: Wheezing Amlodipine Besylate (Amlodipine Besylate 5 Mg Tablet) 5 mg PO DAILY [facility]; Protocol Last Admin: 12/07/23 08:50 Dose: 5 mg Divalproex Sodium (Divalproex Sodium Sprinkles 125 Mg ) 250 mg PO TID [facility] Last Admin: 12/07/23 08:50 Dose: 250 mg Emtricitabine/Tenofovir (Emtricitabin/Tenofovir 200/300 Tablet) 1 tab PO DAILY [facility] Last Admin: 12/06/23 08:22 Dose: 1 tab Haloperidol (Haloperidol 5 Mg Tablet) 5 mg PO TID [facility] Last Admin: 12/07/23 08:50 Dose: 5 mg Haloperidol Decanoate (Haloperidol Decanoate 50 Mg/Ml Vial) 100 mg IM Q28D [facility] Last Admin: 11/25/23 20:59 Dose: 100 mg Levetiracetam (Levetiracetam 500 Mg Tablet) 500 mg PO BID [facility] Last Admin: 12/07/23 08:50 Dose: 500 mg Magnesium Hydroxide (Milk Of Magnesia 30 Ml Oral.Susp) 30 ml PO DAILY PRN PRN Reason: Constipation Mirtazapine (Mirtazapine 15 Mg Tablet) 15 mg PO BEDTIME [facility] Last Admin: 12/06/23 20:49 Dose: 15 mg Multivitamins/Vitamin C (Multivitamin Tablet) 1 tab PO BEDTIME [facility] Last Admin: 12/06/23 20:50 Dose: 1 tab Nicotine Polacrilex (Nicotine Polacrilex 2 Mg Gum) 4 mg BUCCAL Q2H PRN PRN Reason: Nicotine Cravings Olanzapine (Olanzapine 5 Mg Tablet) 5 mg PO BID@0800,1500 [facility] Last Admin: 12/07/23 08:50 Dose: 5 mg Olanzapine (Olanzapine 10 Mg Vial) 10 mg IM BEDTIME PRN PRN Reason: if refuses bedtime PO zyprexa Olanzapine (Olanzapine 10 Mg Vial) 5 mg IM BID@0800,1500 PRN PRN Reason: if refuses 0800/1500 PO zyprexa Last Admin: 10/13/23 14:58 Dose: 5 mg Olanzapine (Olanzapine 10 Mg Tablet) 20 mg PO BEDTIME [facility] Last Admin: 12/06/23 20:50 Dose: 20 mg Polyethylene Glycol (Polyethylene Glycol 3350 17 Gm Powd.Pack) 17 gm PO DAILY PRN PRN Reason: Constipation Rilpivirine (Rilpivirine Hcl 25 Mg Tablet) 25 mg PO DAILY [facility] Last Admin: 12/07/23 08:50 Dose: 25 mg Thiamine HCl (Thiamine Hcl 100 Mg Tablet) 100 mg PO DAILY [facility] Last Admin: 12/07/23 08:50 Dose: 100 mg Trazodone HCl (Trazodone Hcl 50 Mg Tablet) 50 mg PO BEDTIME MRX1 PRN PRN Reason: Insomnia Last Admin: 12/06/23 20:49 Dose: 50 mg Allergies Allergies Allergy/AdvReac Type Severity Reaction Status Date / Time No Known Allergies Allergy Unverified 01/28/20 16:07 [No Known Allergies*] Assessment & Plan Assessment & Plan (1) Schizoaffective disorder, bipolar type: Status: Acute Code(s): F25.0 - Schizoaffective disorder, bipolar type Assessment and Plan: 11/01 mildly up - positive mood=- but less irritable than in past visits 11/02 CTP (2) Dementia: Status: Acute Code(s): F03.90 - Unspecified dementia, unspecified severity, without behavioral disturbance, psychotic disturbance, mood disturbance, and anxiety Assessment and Plan: 11/01 ongoing dementia continue with reorientation and distraction prn - (3) Noncompliance: Status: Acute Code(s): Z91.199 - Patient's noncompliance with other medical treatment and regimen due to unspecified reason Assessment and Plan: seems to be taking medication currently - watches nurse crush them and put in ice cream Plan The patient is an elderly male with a past history of schizoaffective disorder, dementia, HIV and other medical problems, chronically mentally ill resident of assisted living facility referred to this facility after he became non compliant with medications with daniella and psychosis. The patient was assessed by crisis and transferring to this facility for psychiatric stabilization. At the moment of the interview the patient was able to contract for safety. Plan 1. Gather collateral information. 2. Continue with regular medications, we are not going to change his Depakote, olanzapine and Haldol Decanoate. 3. Reassessment with results. 4. 15 minutes checks since the patient is able to contract for safety. 5. Change Zyprexa to Zydis to avoid cheeking on October 02. 6. IM zyprexa ordered 10 mg t.i.d. p.r.n. refusal of p.o. as per court order. Total dose up to 30 mg a day. 7. Zyprexa increased up to 15 mg p.o. q.h.s. to target daniella and psychosis. Started on October 15. Zyprexa was increased up to 20 mg p.o. q.h.s. on October 17. 8. Increase Haldol up to 5 mg p.o. t.i.d. on October 22 and keep Haldol Decanoate as per court order. 9. Medical certificate issued. 10. Blood work f on November 18 without no changes. 11. Guardianship hearing for December 02. Waiting for placement 12/06: Continue current regimen and plans Reason for continued inpatient stay Substantial Risk for: inability to function Time Spent With Patient Time: Total time managing care of this patient today ____ minutes.
[2023-12-07] MEDS: Emtricitabin/Tenofovir 200/300 TABLET 1 TAB PO (15:54)
[2023-12-07 20:00] VITALS: BP 101/63; PULSE 85; RESP 16; TEMP 36.6; O2SAT 96
[2023-12-07] MEDS: OLANZapine 10 MG TABLET 20 MG PO (20:37)
[2023-12-07] MEDS: Mirtazapine 15 MG TABLET PO (20:37)
[2023-12-07] MEDS: Multivitamin TABLET 1 TAB PO (20:37)
[2023-12-07] MEDS: traZODone HCL 50 MG TABLET PO (20:38)
[2023-12-08 07:47] VITALS: BP 139/98; PULSE 109; RESP 16; TEMP 36; O2SAT 97
[2023-12-08] MEDS: levETIRAcetam 500 MG TABLET PO ×2 (07:55→19:51)
[2023-12-08] MEDS: OLANZapine 5 MG TABLET PO ×2 (07:55→16:08)
[2023-12-08] MEDS: Rilpivirine HCL 25 MG TABLET PO (07:55)
[2023-12-08] MEDS: Thiamine HCL 100 MG TABLET PO (07:55)
[2023-12-08] MEDS: amLODIPine Besylate 5 MG TABLET PO (07:55)
[2023-12-08] MEDS: HaloperidoL 5 MG TABLET PO ×3 (07:56→19:51)
[2023-12-08] MEDS: Emtricitabin/Tenofovir 200/300 TABLET 1 TAB PO (07:56)
[2023-12-08] MEDS: Divalproex Sodium Sprinkles 125 MG CAP.DR.SPR 250 MG PO ×3 (09:02→19:50)
--- NOTE | 2023-12-08 10:00 | HO.PSYCHPN ---
Subjective Subjective Date of Service: 12/08/23 Reason For Visit: F32.9 Subjective Notes: Section 7 and Section 8 Interim History: Patient was seen and discussed in rounds today. Records and plans were reviewed. He is doing about the same with no behavioral issues. No complaints or side effects. Eating and sleeping adequately. No changes were made today Review of Systems Review of Systems Yes all other systems are reviewed and are negative Mental Status Exam Mental Status Exam Patient Appearance: Appropriate Patient Orientation: Person and Situation Level of Consciousness: Awake and Appropriate Patient Behavior: Guarded and Passive Mood Description: Withdrawn Affect Description: Calm Patient Cognition Impaired: Yes Ability to Follow Directions: Good Speech Pattern: Clear Hallucinations: None Delusions: Not Present Thought Process: Linear Thought Content: positive for Circumstantial Judgement: Fair Diagnostics Vital Signs (24Hr): Vital Signs - 24 hr 12/07/23 20:00 12/08/23 07:47 Temperature 97.9 F 96.8 F Pulse Rate 85 109 H Respiratory Rate 16 16 Blood Pressure 101/63 139/98 H Pulse Oximetry 96 97 Oxygen Delivery Method Room Air Room Air BMI result Body Mass Index 18.8 Labs 11/19/23 08:03 11/19/23 08:03 Medications Medications Current Medications Acetaminophen (Acetaminophen 325 Mg Tablet) 650 mg PO Q6H PRN PRN Reason: Pain (Scale Score 1-3) Al Hydroxide/Mg Hydroxide (Magnesium Hydrox/Alum Hydrox 30 Ml Oral.Susp) 30 ml PO Q6H PRN PRN Reason: Heartburn/Nausea Last Admin: 11/12/23 06:20 Dose: 30 ml Albuterol Sulfate (Albuterol Sulfate 90 Mcg 8 Gm Inhaler) 2 puff INHALE RQ4H PRN PRN Reason: Wheezing Amlodipine Besylate (Amlodipine Besylate 5 Mg Tablet) 5 mg PO DAILY [facility]; Protocol Last Admin: 12/08/23 07:55 Dose: 5 mg Divalproex Sodium (Divalproex Sodium Sprinkles 125 Mg ) 250 mg PO TID [facility] Last Admin: 12/08/23 09:02 Dose: 250 mg Emtricitabine/Tenofovir (Emtricitabin/Tenofovir 200/300 Tablet) 1 tab PO DAILY [facility] Last Admin: 12/08/23 07:56 Dose: 1 tab Haloperidol (Haloperidol 5 Mg Tablet) 5 mg PO TID [facility] Last Admin: 12/08/23 07:56 Dose: 5 mg Haloperidol Decanoate (Haloperidol Decanoate 50 Mg/Ml Vial) 100 mg IM Q28D [facility] Last Admin: 11/25/23 20:59 Dose: 100 mg Levetiracetam (Levetiracetam 500 Mg Tablet) 500 mg PO BID [facility] Last Admin: 12/08/23 07:55 Dose: 500 mg Magnesium Hydroxide (Milk Of Magnesia 30 Ml Oral.Susp) 30 ml PO DAILY PRN PRN Reason: Constipation Mirtazapine (Mirtazapine 15 Mg Tablet) 15 mg PO BEDTIME [facility] Last Admin: 12/07/23 20:37 Dose: 15 mg Multivitamins/Vitamin C (Multivitamin Tablet) 1 tab PO BEDTIME [facility] Last Admin: 12/07/23 20:37 Dose: 1 tab Nicotine Polacrilex (Nicotine Polacrilex 2 Mg Gum) 4 mg BUCCAL Q2H PRN PRN Reason: Nicotine Cravings Olanzapine (Olanzapine 5 Mg Tablet) 5 mg PO BID@0800,1500 [facility] Last Admin: 12/08/23 07:55 Dose: 5 mg Olanzapine (Olanzapine 10 Mg Vial) 10 mg IM BEDTIME PRN PRN Reason: if refuses bedtime PO zyprexa Olanzapine (Olanzapine 10 Mg Vial) 5 mg IM BID@0800,1500 PRN PRN Reason: if refuses 0800/1500 PO zyprexa Last Admin: 10/13/23 14:58 Dose: 5 mg Olanzapine (Olanzapine 10 Mg Tablet) 20 mg PO BEDTIME [facility] Last Admin: 12/07/23 20:37 Dose: 20 mg Polyethylene Glycol (Polyethylene Glycol 3350 17 Gm Powd.Pack) 17 gm PO DAILY PRN PRN Reason: Constipation Rilpivirine (Rilpivirine Hcl 25 Mg Tablet) 25 mg PO DAILY [facility] Last Admin: 12/08/23 07:55 Dose: 25 mg Thiamine HCl (Thiamine Hcl 100 Mg Tablet) 100 mg PO DAILY [facility] Last Admin: 12/08/23 07:55 Dose: 100 mg Trazodone HCl (Trazodone Hcl 50 Mg Tablet) 50 mg PO BEDTIME MRX1 PRN PRN Reason: Insomnia Last Admin: 12/07/23 20:38 Dose: 50 mg Allergies Allergies Allergy/AdvReac Type Severity Reaction Status Date / Time No Known Allergies Allergy Unverified 01/28/20 16:07 [No Known Allergies*] Assessment & Plan Assessment & Plan (1) Schizoaffective disorder, bipolar type: Status: Acute Code(s): F25.0 - Schizoaffective disorder, bipolar type Assessment and Plan: 11/01 mildly up - positive mood=- but less irritable than in past visits 11/02 CTP (2) Dementia: Status: Acute Code(s): F03.90 - Unspecified dementia, unspecified severity, without behavioral disturbance, psychotic disturbance, mood disturbance, and anxiety Assessment and Plan: 11/01 ongoing dementia continue with reorientation and distraction prn - (3) Noncompliance: Status: Acute Code(s): Z91.199 - Patient's noncompliance with other medical treatment and regimen due to unspecified reason Assessment and Plan: seems to be taking medication currently - watches nurse crush them and put in ice cream Plan The patient is an elderly male with a past history of schizoaffective disorder, dementia, HIV and other medical problems, chronically mentally ill resident of assisted living facility referred to this facility after he became non compliant with medications with daniella and psychosis. The patient was assessed by crisis and transferring to this facility for psychiatric stabilization. At the moment of the interview the patient was able to contract for safety. Plan 1. Gather collateral information. 2. Continue with regular medications, we are not going to change his Depakote, olanzapine and Haldol Decanoate. 3. Reassessment with results. 4. 15 minutes checks since the patient is able to contract for safety. 5. Change Zyprexa to Zydis to avoid cheeking on October 02. 6. IM zyprexa ordered 10 mg t.i.d. p.r.n. refusal of p.o. as per court order. Total dose up to 30 mg a day. 7. Zyprexa increased up to 15 mg p.o. q.h.s. to target daniella and psychosis. Started on October 15. Zyprexa was increased up to 20 mg p.o. q.h.s. on October 17. 8. Increase Haldol up to 5 mg p.o. t.i.d. on October 22 and keep Haldol Decanoate as per court order. 9. Medical certificate issued. 10. Blood work f on November 18 without no changes. 11. Guardianship hearing for December 02. Waiting for placement 12/06: Continue current regimen and plans 12/07: Continue current regimen and plans. Reason for continued inpatient stay Substantial Risk for: inability to function Time Spent With Patient Time: Total time managing care of this patient today ____ minutes.
[2023-12-08] MEDS: Mirtazapine 15 MG TABLET PO (19:51)
[2023-12-08] MEDS: OLANZapine 10 MG TABLET 20 MG PO (19:51)
[2023-12-08] MEDS: Multivitamin TABLET 1 TAB PO (19:51)
[2023-12-08 20:00] VITALS: BP 95/60; PULSE 84; RESP 16; TEMP 36.6; O2SAT 93
[2023-12-09 08:00] VITALS: BP 140/80; PULSE 79; RESP 18; O2SAT 95
[2023-12-09] MEDS: Rilpivirine HCL 25 MG TABLET PO (08:15)
[2023-12-09] MEDS: amLODIPine Besylate 5 MG TABLET PO (08:15)
[2023-12-09] MEDS: Emtricitabin/Tenofovir 200/300 TABLET 1 TAB PO (08:15)
[2023-12-09] MEDS: HaloperidoL 5 MG TABLET PO ×3 (08:15→19:55)
[2023-12-09] MEDS: Divalproex Sodium Sprinkles 125 MG CAP.DR.SPR 250 MG PO ×3 (08:15→19:55)
[2023-12-09] MEDS: levETIRAcetam 500 MG TABLET PO ×2 (08:15→19:54)
[2023-12-09] MEDS: Thiamine HCL 100 MG TABLET PO (08:15)
[2023-12-09] MEDS: OLANZapine 5 MG TABLET PO ×2 (08:15→14:59)
--- NOTE | 2023-12-09 15:30 | P.PNPSI_ITS ---
Subjective Subjective Date of Service: 12/09/23 Reason For Visit: F32.9 Subjective Notes: Conditional Voluntary Interim History: The nursing staff reported the patient had been fully compliant with treatment pleasant cooperative. On interview the patient denies new symptoms, waiting for placement Mental Status Exam Mental Status Exam Patient Appearance: Appropriate and Unkempt Patient Orientation: Person and Situation Level of Consciousness: Awake and Appropriate Patient Behavior: Guarded and Passive Mood Description: Withdrawn Affect Description: Constricted Patient Cognition Impaired: Yes Ability to Follow Directions: Good Speech Pattern: Clear Hallucinations: None Delusions: Not Present Thought Process: Distracted and Slowed Thinking Thought Content: positive for [place] and positive for Poverty of Content Judgement: Fair Diagnostics Vital Signs (24Hr): Vital Signs - 24 hr 12/08/23 20:00 12/09/23 08:00 Temperature 98 F Pulse Rate 84 79 Respiratory Rate 16 18 Blood Pressure 95/60 140/80 H Pulse Oximetry 93 95 Oxygen Delivery Method Room Air Room Air BMI result Body Mass Index 18.8 Labs 11/19/23 08:03 11/19/23 08:03 Medications Medications Current Medications Acetaminophen (Acetaminophen 325 Mg Tablet) 650 mg PO Q6H PRN PRN Reason: Pain (Scale Score 1-3) Al Hydroxide/Mg Hydroxide (Magnesium Hydrox/Alum Hydrox 30 Ml Oral.Susp) 30 ml PO Q6H PRN PRN Reason: Heartburn/Nausea Last Admin: 11/12/23 06:20 Dose: 30 ml Albuterol Sulfate (Albuterol Sulfate 90 Mcg 8 Gm Inhaler) 2 puff INHALE RQ4H PRN PRN Reason: Wheezing Amlodipine Besylate (Amlodipine Besylate 5 Mg Tablet) 5 mg PO DAILY [facility]; Protocol Last Admin: 12/09/23 08:15 Dose: 5 mg Divalproex Sodium (Divalproex Sodium Sprinkles 125 Mg ) 250 mg PO TID [facility] Last Admin: 12/09/23 14:58 Dose: 250 mg Emtricitabine/Tenofovir (Emtricitabin/Tenofovir 200/300 Tablet) 1 tab PO DAILY [facility] Last Admin: 12/09/23 08:15 Dose: 1 tab Haloperidol (Haloperidol 5 Mg Tablet) 5 mg PO TID [facility] Last Admin: 12/09/23 14:59 Dose: 5 mg Haloperidol Decanoate (Haloperidol Decanoate 50 Mg/Ml Vial) 100 mg IM Q28D [facility] Last Admin: 11/25/23 20:59 Dose: 100 mg Levetiracetam (Levetiracetam 500 Mg Tablet) 500 mg PO BID [facility] Last Admin: 12/09/23 08:15 Dose: 500 mg Magnesium Hydroxide (Milk Of Magnesia 30 Ml Oral.Susp) 30 ml PO DAILY PRN PRN Reason: Constipation Mirtazapine (Mirtazapine 15 Mg Tablet) 15 mg PO BEDTIME [facility] Last Admin: 12/08/23 19:51 Dose: 15 mg Multivitamins/Vitamin C (Multivitamin Tablet) 1 tab PO BEDTIME [facility] Last Admin: 12/08/23 19:51 Dose: 1 tab Nicotine Polacrilex (Nicotine Polacrilex 2 Mg Gum) 4 mg BUCCAL Q2H PRN PRN Reason: Nicotine Cravings Olanzapine (Olanzapine 5 Mg Tablet) 5 mg PO BID@0800,1500 [facility] Last Admin: 12/09/23 14:59 Dose: 5 mg Olanzapine (Olanzapine 10 Mg Vial) 10 mg IM BEDTIME PRN PRN Reason: if refuses bedtime PO zyprexa Olanzapine (Olanzapine 10 Mg Vial) 5 mg IM BID@0800,1500 PRN PRN Reason: if refuses 0800/1500 PO zyprexa Last Admin: 10/13/23 14:58 Dose: 5 mg Olanzapine (Olanzapine 10 Mg Tablet) 20 mg PO BEDTIME [facility] Last Admin: 12/08/23 19:51 Dose: 20 mg Polyethylene Glycol (Polyethylene Glycol 3350 17 Gm Powd.Pack) 17 gm PO DAILY PRN PRN Reason: Constipation Rilpivirine (Rilpivirine Hcl 25 Mg Tablet) 25 mg PO DAILY [facility] Last Admin: 12/09/23 08:15 Dose: 25 mg Thiamine HCl (Thiamine Hcl 100 Mg Tablet) 100 mg PO DAILY [facility] Last Admin: 12/09/23 08:15 Dose: 100 mg Trazodone HCl (Trazodone Hcl 50 Mg Tablet) 50 mg PO BEDTIME MRX1 PRN PRN Reason: Insomnia Last Admin: 12/07/23 20:38 Dose: 50 mg Allergies Allergies Allergy/AdvReac Type Severity Reaction Status Date / Time No Known Allergies Allergy Unverified 01/28/20 16:07 [No Known Allergies*] Assessment & Plan Assessment & Plan (1) Schizoaffective disorder, bipolar type: Status: Acute Code(s): F25.0 - Schizoaffective disorder, bipolar type Assessment and Plan: 11/01 mildly up - positive mood=- but less irritable than in past visits 11/02 CTP (2) Dementia: Status: Acute Code(s): F03.90 - Unspecified dementia, unspecified severity, without behavioral disturbance, psychotic disturbance, mood disturbance, and anxiety Assessment and Plan: 11/01 ongoing dementia continue with reorientation and distraction prn - (3) Noncompliance: Status: Acute Code(s): Z91.199 - Patient's noncompliance with other medical treatment and regimen due to unspecified reason Assessment and Plan: seems to be taking medication currently - watches nurse crush them and put in ice cream Plan The patient is an elderly male with a past history of schizoaffective disorder, dementia, HIV and other medical problems, chronically mentally ill resident of assisted living facility referred to this facility after he became non compliant with medications with daniella and psychosis. The patient was assessed by crisis and transferring to this facility for psychiatric stabilization. At the moment of the interview the patient was able to contract for safety. Plan 1. Gather collateral information. 2. Continue with regular medications, we are not going to change his Depakote, olanzapine and Haldol Decanoate. 3. Reassessment with results. 4. 15 minutes checks since the patient is able to contract for safety. 5. Change Zyprexa to Zydis to avoid cheeking on October 02. 6. IM zyprexa ordered 10 mg t.i.d. p.r.n. refusal of p.o. as per court order. Total dose up to 30 mg a day. 7. Zyprexa increased up to 15 mg p.o. q.h.s. to target daniella and psychosis. Started on October 15. Zyprexa was increased up to 20 mg p.o. q.h.s. on October 17. 8. Increase Haldol up to 5 mg p.o. t.i.d. on October 22 and keep Haldol Decanoate as per court order. 9. Medical certificate issued. 10. Blood work f on November 18 without no changes. 11. Guardianship hearing for December 02 12. Waiting for placement Reason for continued inpatient stay Substantial Risk for: inability to function, rapid decompensation and med/psych decompensation Time Spent With Patient Time: Total time managing care of this patient today _20___ minutes.
[2023-12-09] MEDS: Multivitamin TABLET 1 TAB PO (19:54)
[2023-12-09] MEDS: Mirtazapine 15 MG TABLET PO (19:54)
[2023-12-09] MEDS: OLANZapine 10 MG TABLET 20 MG PO (19:55)
[2023-12-09 20:00] VITALS: BP 103/70; PULSE 83; RESP 16; TEMP 36.4; O2SAT 95
[2023-12-10 09:47] VITALS: BP 111/70; PULSE 85; RESP 15; TEMP 36.2; O2SAT 96
[2023-12-10] MEDS: Rilpivirine HCL 25 MG TABLET PO (09:48)
[2023-12-10] MEDS: Divalproex Sodium Sprinkles 125 MG CAP.DR.SPR 250 MG PO ×3 (09:48→20:04)
[2023-12-10] MEDS: amLODIPine Besylate 5 MG TABLET PO (09:48)
[2023-12-10] MEDS: Emtricitabin/Tenofovir 200/300 TABLET 1 TAB PO (09:48)
[2023-12-10] MEDS: levETIRAcetam 500 MG TABLET PO ×2 (09:48→20:04)
[2023-12-10] MEDS: HaloperidoL 5 MG TABLET PO ×3 (09:48→20:04)
[2023-12-10] MEDS: Thiamine HCL 100 MG TABLET PO (09:49)
[2023-12-10] MEDS: OLANZapine 5 MG TABLET PO ×2 (09:49→16:08)
--- NOTE | 2023-12-10 14:28 | HO.PSYCHPN ---
Subjective Subjective Date of Service: 12/10/23 Reason For Visit: F32.9 Subjective Notes: Conditional Voluntary Interim History: The nursing staff reported the patient had been fully compliant with treatment no changes in his mental status. On interview the patient denies new symptoms, waiting for placement. Mental Status Exam Mental Status Exam Patient Appearance: Appropriate Patient Orientation: Person Level of Consciousness: Awake Patient Behavior: Guarded and Passive Mood Description: Withdrawn Affect Description: Calm Patient Cognition Impaired: Yes Ability to Follow Directions: Good Speech Pattern: Clear Hallucinations: None Delusions: Not Present Thought Process: Distracted and Slowed Thinking Thought Content: positive for [place] and positive for Poverty of Content Judgement: Fair Diagnostics Vital Signs (24Hr): Vital Signs - 24 hr 12/09/23 20:00 12/10/23 09:47 Temperature 97.5 F 97.1 F Pulse Rate 83 85 Respiratory Rate 16 15 Blood Pressure 103/70 111/70 Pulse Oximetry 95 96 Oxygen Delivery Method Room Air Room Air BMI result Body Mass Index 18.8 Labs 11/19/23 08:03 11/19/23 08:03 Medications Medications Current Medications Acetaminophen (Acetaminophen 325 Mg Tablet) 650 mg PO Q6H PRN PRN Reason: Pain (Scale Score 1-3) Al Hydroxide/Mg Hydroxide (Magnesium Hydrox/Alum Hydrox 30 Ml Oral.Susp) 30 ml PO Q6H PRN PRN Reason: Heartburn/Nausea Last Admin: 11/12/23 06:20 Dose: 30 ml Albuterol Sulfate (Albuterol Sulfate 90 Mcg 8 Gm Inhaler) 2 puff INHALE RQ4H PRN PRN Reason: Wheezing Amlodipine Besylate (Amlodipine Besylate 5 Mg Tablet) 5 mg PO DAILY [facility]; Protocol Last Admin: 12/10/23 09:48 Dose: 5 mg Divalproex Sodium (Divalproex Sodium Sprinkles 125 Mg ) 250 mg PO TID [facility] Last Admin: 12/10/23 09:48 Dose: 250 mg Emtricitabine/Tenofovir (Emtricitabin/Tenofovir 200/300 Tablet) 1 tab PO DAILY [facility] Last Admin: 12/10/23 09:48 Dose: 1 tab Haloperidol (Haloperidol 5 Mg Tablet) 5 mg PO TID [facility] Last Admin: 12/10/23 09:48 Dose: 5 mg Haloperidol Decanoate (Haloperidol Decanoate 50 Mg/Ml Vial) 100 mg IM Q28D [facility] Last Admin: 11/25/23 20:59 Dose: 100 mg Levetiracetam (Levetiracetam 500 Mg Tablet) 500 mg PO BID [facility] Last Admin: 12/10/23 09:48 Dose: 500 mg Magnesium Hydroxide (Milk Of Magnesia 30 Ml Oral.Susp) 30 ml PO DAILY PRN PRN Reason: Constipation Mirtazapine (Mirtazapine 15 Mg Tablet) 15 mg PO BEDTIME [facility] Last Admin: 12/09/23 19:54 Dose: 15 mg Multivitamins/Vitamin C (Multivitamin Tablet) 1 tab PO BEDTIME [facility] Last Admin: 12/09/23 19:54 Dose: 1 tab Nicotine Polacrilex (Nicotine Polacrilex 2 Mg Gum) 4 mg BUCCAL Q2H PRN PRN Reason: Nicotine Cravings Olanzapine (Olanzapine 5 Mg Tablet) 5 mg PO BID@0800,1500 [facility] Last Admin: 12/10/23 09:49 Dose: 5 mg Olanzapine (Olanzapine 10 Mg Vial) 10 mg IM BEDTIME PRN PRN Reason: if refuses bedtime PO zyprexa Olanzapine (Olanzapine 10 Mg Vial) 5 mg IM BID@0800,1500 PRN PRN Reason: if refuses 0800/1500 PO zyprexa Last Admin: 10/13/23 14:58 Dose: 5 mg Olanzapine (Olanzapine 10 Mg Tablet) 20 mg PO BEDTIME [facility] Last Admin: 12/09/23 19:55 Dose: 20 mg Polyethylene Glycol (Polyethylene Glycol 3350 17 Gm Powd.Pack) 17 gm PO DAILY PRN PRN Reason: Constipation Rilpivirine (Rilpivirine Hcl 25 Mg Tablet) 25 mg PO DAILY [facility] Last Admin: 12/10/23 09:48 Dose: 25 mg Thiamine HCl (Thiamine Hcl 100 Mg Tablet) 100 mg PO DAILY [facility] Last Admin: 12/10/23 09:49 Dose: 100 mg Trazodone HCl (Trazodone Hcl 50 Mg Tablet) 50 mg PO BEDTIME MRX1 PRN PRN Reason: Insomnia Last Admin: 12/07/23 20:38 Dose: 50 mg Allergies Allergies Allergy/AdvReac Type Severity Reaction Status Date / Time No Known Allergies Allergy Unverified 01/28/20 16:07 [No Known Allergies*] Assessment & Plan Assessment & Plan (1) Schizoaffective disorder, bipolar type: Status: Acute Code(s): F25.0 - Schizoaffective disorder, bipolar type Assessment and Plan: 11/01 mildly up - positive mood=- but less irritable than in past visits 11/02 CTP (2) Dementia: Status: Acute Code(s): F03.90 - Unspecified dementia, unspecified severity, without behavioral disturbance, psychotic disturbance, mood disturbance, and anxiety Assessment and Plan: 11/01 ongoing dementia continue with reorientation and distraction prn - (3) Noncompliance: Status: Acute Code(s): Z91.199 - Patient's noncompliance with other medical treatment and regimen due to unspecified reason Assessment and Plan: seems to be taking medication currently - watches nurse crush them and put in ice cream Plan The patient is an elderly male with a past history of schizoaffective disorder, dementia, HIV and other medical problems, chronically mentally ill resident of assisted living facility referred to this facility after he became non compliant with medications with daniella and psychosis. The patient was assessed by crisis and transferring to this facility for psychiatric stabilization. At the moment of the interview the patient was able to contract for safety. Plan 1. Gather collateral information. 2. Continue with regular medications, we are not going to change his Depakote, olanzapine and Haldol Decanoate. 3. Reassessment with results. 4. 15 minutes checks since the patient is able to contract for safety. 5. Change Zyprexa to Zydis to avoid cheeking on October 02. 6. IM zyprexa ordered 10 mg t.i.d. p.r.n. refusal of p.o. as per court order. Total dose up to 30 mg a day. 7. Zyprexa increased up to 15 mg p.o. q.h.s. to target daniella and psychosis. Started on October 15. Zyprexa was increased up to 20 mg p.o. q.h.s. on October 17. 8. Increase Haldol up to 5 mg p.o. t.i.d. on October 22 and keep Haldol Decanoate as per court order. 9. Medical certificate issued. 10. Blood work f on November 18 without no changes. 11. Guardianship hearing for December 02 12. Waiting for placement Reason for continued inpatient stay Substantial Risk for: inability to function, rapid decompensation and med/psych decompensation Time Spent With Patient Time: Total time managing care of this patient today __20__ minutes.
[2023-12-10] MEDS: OLANZapine 10 MG TABLET 20 MG PO (20:03)
[2023-12-10] MEDS: Mirtazapine 15 MG TABLET PO (20:04)
[2023-12-10] MEDS: Multivitamin TABLET 1 TAB PO (20:04)
[2023-12-10 20:20] VITALS: BP 96/56; PULSE 85; RESP 16; TEMP 36.3; O2SAT 92
[2023-12-11 08:00] VITALS: BP 124/78; PULSE 87; RESP 16; TEMP 36.4; O2SAT 97
[2023-12-11 09:46] VITALS: BP 124/78
[2023-12-11] MEDS: amLODIPine Besylate 5 MG TABLET PO (09:46)
[2023-12-11] MEDS: Rilpivirine HCL 25 MG TABLET PO (09:47)
[2023-12-11] MEDS: Emtricitabin/Tenofovir 200/300 TABLET 1 TAB PO (09:47)
[2023-12-11] MEDS: OLANZapine 5 MG TABLET PO ×2 (09:47→14:50)
[2023-12-11] MEDS: Divalproex Sodium Sprinkles 125 MG CAP.DR.SPR 250 MG PO ×3 (09:47→20:37)
[2023-12-11] MEDS: levETIRAcetam 500 MG TABLET PO ×2 (09:47→20:37)
[2023-12-11] MEDS: Thiamine HCL 100 MG TABLET PO (09:47)
[2023-12-11] MEDS: HaloperidoL 5 MG TABLET PO ×3 (09:48→20:37)
--- NOTE | 2023-12-11 11:11 | MHC.CLN ---
F/U DIET=REGULAR. ENSURE TID TO INCREASE KCALS/NUTRITION. SUPPLEMENT PROVIDES 1050 KCALS, 60 G PROTEIN. CONTINUES WITH USUALLY GOOD INTAKE. FOLLOW FOR INTAKE OF MEALS AND SUPPLEMENT. RD TO FOLLOW UP WEEKLY.
--- NOTE | 2023-12-11 15:09 | P.PNPSI_ITS ---
Subjective Subjective Date of Service: 12/11/23 Reason For Visit: F32.9 Subjective Notes: Conditional Voluntary Interim History: The nursing staff reported the patient had been pleasant, cooperative hypoactive at times. He slept well and had his meals. On interview the patient denies new symptoms, waiting for placement. Mental Status Exam Mental Status Exam Patient Appearance: Appropriate Patient Orientation: Person and Situation Level of Consciousness: Awake and Appropriate Patient Behavior: Guarded and Passive Mood Description: Withdrawn Affect Description: Constricted Patient Cognition Impaired: Yes Ability to Follow Directions: Good Speech Pattern: Clear Hallucinations: None Delusions: Not Present Thought Process: Distracted and Slowed Thinking Thought Content: positive for [place] and positive for Poverty of Content Judgement: Fair Diagnostics Vital Signs (24Hr): Vital Signs - 24 hr 12/10/23 20:20 12/11/23 08:00 12/11/23 09:46 Temperature 97.3 F 97.6 F Pulse Rate 85 87 Respiratory Rate 16 16 Blood Pressure 96/56 L 124/78 124/78 Pulse Oximetry 92 97 Oxygen Delivery Method Room Air Room Air BMI result Body Mass Index 18.8 Labs 11/19/23 08:03 11/19/23 08:03 Medications Medications Current Medications Acetaminophen (Acetaminophen 325 Mg Tablet) 650 mg PO Q6H PRN PRN Reason: Pain (Scale Score 1-3) Al Hydroxide/Mg Hydroxide (Magnesium Hydrox/Alum Hydrox 30 Ml Oral.Susp) 30 ml PO Q6H PRN PRN Reason: Heartburn/Nausea Last Admin: 11/12/23 06:20 Dose: 30 ml Albuterol Sulfate (Albuterol Sulfate 90 Mcg 8 Gm Inhaler) 2 puff INHALE RQ4H PRN PRN Reason: Wheezing Amlodipine Besylate (Amlodipine Besylate 5 Mg Tablet) 5 mg PO DAILY [facility]; Protocol Last Admin: 12/11/23 09:46 Dose: 5 mg Divalproex Sodium (Divalproex Sodium Sprinkles 125 Mg ) 250 mg PO TID [facility] Last Admin: 12/11/23 14:50 Dose: 250 mg Emtricitabine/Tenofovir (Emtricitabin/Tenofovir 200/300 Tablet) 1 tab PO DAILY [facility] Last Admin: 12/11/23 09:47 Dose: 1 tab Haloperidol (Haloperidol 5 Mg Tablet) 5 mg PO TID [facility] Last Admin: 12/11/23 14:50 Dose: 5 mg Haloperidol Decanoate (Haloperidol Decanoate 50 Mg/Ml Vial) 100 mg IM Q28D [facility] Last Admin: 11/25/23 20:59 Dose: 100 mg Levetiracetam (Levetiracetam 500 Mg Tablet) 500 mg PO BID [facility] Last Admin: 12/11/23 09:47 Dose: 500 mg Magnesium Hydroxide (Milk Of Magnesia 30 Ml Oral.Susp) 30 ml PO DAILY PRN PRN Reason: Constipation Mirtazapine (Mirtazapine 15 Mg Tablet) 15 mg PO BEDTIME [facility] Last Admin: 12/10/23 20:04 Dose: 15 mg Multivitamins/Vitamin C (Multivitamin Tablet) 1 tab PO BEDTIME [facility] Last Admin: 12/10/23 20:04 Dose: 1 tab Nicotine Polacrilex (Nicotine Polacrilex 2 Mg Gum) 4 mg BUCCAL Q2H PRN PRN Reason: Nicotine Cravings Olanzapine (Olanzapine 5 Mg Tablet) 5 mg PO BID@0800,1500 [facility] Last Admin: 12/11/23 14:50 Dose: 5 mg Olanzapine (Olanzapine 10 Mg Vial) 10 mg IM BEDTIME PRN PRN Reason: if refuses bedtime PO zyprexa Olanzapine (Olanzapine 10 Mg Vial) 5 mg IM BID@0800,1500 PRN PRN Reason: if refuses 0800/1500 PO zyprexa Last Admin: 10/13/23 14:58 Dose: 5 mg Olanzapine (Olanzapine 10 Mg Tablet) 20 mg PO BEDTIME [facility] Last Admin: 12/10/23 20:03 Dose: 20 mg Polyethylene Glycol (Polyethylene Glycol 3350 17 Gm Powd.Pack) 17 gm PO DAILY PRN PRN Reason: Constipation Rilpivirine (Rilpivirine Hcl 25 Mg Tablet) 25 mg PO DAILY [facility] Last Admin: 12/11/23 09:47 Dose: 25 mg Thiamine HCl (Thiamine Hcl 100 Mg Tablet) 100 mg PO DAILY [facility] Last Admin: 12/11/23 09:47 Dose: 100 mg Trazodone HCl (Trazodone Hcl 50 Mg Tablet) 50 mg PO BEDTIME MRX1 PRN PRN Reason: Insomnia Last Admin: 12/07/23 20:38 Dose: 50 mg Allergies Allergies Allergy/AdvReac Type Severity Reaction Status Date / Time No Known Allergies Allergy Unverified 01/28/20 16:07 [No Known Allergies*] Assessment & Plan Assessment & Plan (1) Schizoaffective disorder, bipolar type: Status: Acute Code(s): F25.0 - Schizoaffective disorder, bipolar type Assessment and Plan: 11/01 mildly up - positive mood=- but less irritable than in past visits 11/02 CTP (2) Dementia: Status: Acute Code(s): F03.90 - Unspecified dementia, unspecified severity, without behavioral disturbance, psychotic disturbance, mood disturbance, and anxiety Assessment and Plan: 11/01 ongoing dementia continue with reorientation and distraction prn - (3) Noncompliance: Status: Acute Code(s): Z91.199 - Patient's noncompliance with other medical treatment and regimen due to unspecified reason Assessment and Plan: seems to be taking medication currently - watches nurse crush them and put in ice cream Plan The patient is an elderly male with a past history of schizoaffective disorder, dementia, HIV and other medical problems, chronically mentally ill resident of assisted living facility referred to this facility after he became non compliant with medications with daniella and psychosis. The patient was assessed by crisis and transferring to this facility for psychiatric stabilization. At the moment of the interview the patient was able to contract for safety. Plan 1. Gather collateral information. 2. Continue with regular medications, we are not going to change his Depakote, olanzapine and Haldol Decanoate. 3. Reassessment with results. 4. 15 minutes checks since the patient is able to contract for safety. 5. Change Zyprexa to Zydis to avoid cheeking on October 02. 6. IM zyprexa ordered 10 mg t.i.d. p.r.n. refusal of p.o. as per court order. Total dose up to 30 mg a day. 7. Zyprexa increased up to 15 mg p.o. q.h.s. to target daniella and psychosis. Started on October 15. Zyprexa was increased up to 20 mg p.o. q.h.s. on October 17. 8. Increase Haldol up to 5 mg p.o. t.i.d. on October 22 and keep Haldol Decanoate as per court order. 9. Medical certificate issued. 10. Blood work f on November 18 without no changes. 11. Guardianship hearing for [facility] 12. Waiting for placement Reason for continued inpatient stay Substantial Risk for: inability to function, rapid decompensation and med/psych decompensation Time Spent With Patient Time: Total time managing care of this patient today __20__ minutes.
[2023-12-11 20:00] VITALS: BP 101/69; PULSE 87; RESP 16; TEMP 36.3; O2SAT 92
[2023-12-11] MEDS: Mirtazapine 15 MG TABLET PO (20:37)
[2023-12-11] MEDS: Multivitamin TABLET 1 TAB PO (20:37)
[2023-12-11] MEDS: OLANZapine 10 MG TABLET 20 MG PO (20:38)
[2023-12-12 07:00] VITALS: BMI 18.2
[2023-12-12 08:11] VITALS: BP 120/72; PULSE 106; RESP 18; TEMP 36.6
[2023-12-12 08:12] VITALS: O2SAT 97
[2023-12-12] MEDS: HaloperidoL 5 MG TABLET PO ×3 (08:13→21:22)
[2023-12-12] MEDS: Divalproex Sodium Sprinkles 125 MG CAP.DR.SPR 250 MG PO ×3 (08:13→21:22)
[2023-12-12] MEDS: Rilpivirine HCL 25 MG TABLET PO (08:13)
[2023-12-12] MEDS: Thiamine HCL 100 MG TABLET PO (08:13)
[2023-12-12] MEDS: OLANZapine 5 MG TABLET PO ×2 (08:13→15:00)
[2023-12-12] MEDS: Emtricitabin/Tenofovir 200/300 TABLET 1 TAB PO (08:14)
[2023-12-12] MEDS: amLODIPine Besylate 5 MG TABLET PO (08:14)
[2023-12-12] MEDS: levETIRAcetam 500 MG TABLET PO ×2 (09:55→21:22)
--- NOTE | 2023-12-12 15:15 | HO.PSYCHPN ---
Subjective Subjective Date of Service: 12/12/23 Reason For Visit: F32.9 Subjective Notes: Conditional Voluntary Interim History: The nursing staff reported that the patient has been compliant with treatment, no new symptoms. On interview, he was pleasant and cooperative, waiting for placement. Mental Status Exam Mental Status Exam Patient Appearance: Appropriate Patient Orientation: Person and Situation Level of Consciousness: Awake and Appropriate Patient Behavior: Guarded and Passive Mood Description: Withdrawn Affect Description: Constricted Patient Cognition Impaired: Yes Ability to Follow Directions: Good Speech Pattern: Clear Hallucinations: None Delusions: Not Present Thought Process: Distracted and Slowed Thinking Thought Content: positive for [place] and positive for Poverty of Content Judgement: Fair Diagnostics Vital Signs (24Hr): Vital Signs - 24 hr 12/11/23 20:00 12/12/23 08:11 12/12/23 08:12 Temperature 97.3 F 97.9 F Pulse Rate 87 106 H Respiratory Rate 16 18 Blood Pressure 101/69 120/72 Pulse Oximetry 92 97 Oxygen Delivery Method Room Air Room Air BMI result Body Mass Index 18.2 Labs 11/19/23 08:03 11/19/23 08:03 Medications Medications Current Medications Acetaminophen (Acetaminophen 325 Mg Tablet) 650 mg PO Q6H PRN PRN Reason: Pain (Scale Score 1-3) Al Hydroxide/Mg Hydroxide (Magnesium Hydrox/Alum Hydrox 30 Ml Oral.Susp) 30 ml PO Q6H PRN PRN Reason: Heartburn/Nausea Last Admin: 11/12/23 06:20 Dose: 30 ml Albuterol Sulfate (Albuterol Sulfate 90 Mcg 8 Gm Inhaler) 2 puff INHALE RQ4H PRN PRN Reason: Wheezing Amlodipine Besylate (Amlodipine Besylate 5 Mg Tablet) 5 mg PO DAILY [facility]; Protocol Last Admin: 12/12/23 08:14 Dose: 5 mg Divalproex Sodium (Divalproex Sodium Sprinkles 125 Mg ) 250 mg PO TID [facility] Last Admin: 12/12/23 15:00 Dose: 250 mg Emtricitabine/Tenofovir (Emtricitabin/Tenofovir 200/300 Tablet) 1 tab PO DAILY [facility] Last Admin: 12/12/23 08:14 Dose: 1 tab Haloperidol (Haloperidol 5 Mg Tablet) 5 mg PO TID [facility] Last Admin: 12/12/23 15:00 Dose: 5 mg Haloperidol Decanoate (Haloperidol Decanoate 50 Mg/Ml Vial) 100 mg IM Q28D [facility] Last Admin: 11/25/23 20:59 Dose: 100 mg Levetiracetam (Levetiracetam 500 Mg Tablet) 500 mg PO BID [facility] Last Admin: 12/12/23 09:55 Dose: 500 mg Magnesium Hydroxide (Milk Of Magnesia 30 Ml Oral.Susp) 30 ml PO DAILY PRN PRN Reason: Constipation Mirtazapine (Mirtazapine 15 Mg Tablet) 15 mg PO BEDTIME [facility] Last Admin: 12/11/23 20:37 Dose: 15 mg Multivitamins/Vitamin C (Multivitamin Tablet) 1 tab PO BEDTIME [facility] Last Admin: 12/11/23 20:37 Dose: 1 tab Nicotine Polacrilex (Nicotine Polacrilex 2 Mg Gum) 4 mg BUCCAL Q2H PRN PRN Reason: Nicotine Cravings Olanzapine (Olanzapine 5 Mg Tablet) 5 mg PO BID@0800,1500 [facility] Last Admin: 12/12/23 15:00 Dose: 5 mg Olanzapine (Olanzapine 10 Mg Vial) 10 mg IM BEDTIME PRN PRN Reason: if refuses bedtime PO zyprexa Olanzapine (Olanzapine 10 Mg Vial) 5 mg IM BID@0800,1500 PRN PRN Reason: if refuses 0800/1500 PO zyprexa Last Admin: 10/13/23 14:58 Dose: 5 mg Olanzapine (Olanzapine 10 Mg Tablet) 20 mg PO BEDTIME [facility] Last Admin: 12/11/23 20:38 Dose: 20 mg Polyethylene Glycol (Polyethylene Glycol 3350 17 Gm Powd.Pack) 17 gm PO DAILY PRN PRN Reason: Constipation Rilpivirine (Rilpivirine Hcl 25 Mg Tablet) 25 mg PO DAILY [facility] Last Admin: 12/12/23 08:13 Dose: 25 mg Thiamine HCl (Thiamine Hcl 100 Mg Tablet) 100 mg PO DAILY [facility] Last Admin: 12/12/23 08:13 Dose: 100 mg Trazodone HCl (Trazodone Hcl 50 Mg Tablet) 50 mg PO BEDTIME MRX1 PRN PRN Reason: Insomnia Last Admin: 12/07/23 20:38 Dose: 50 mg Allergies Allergies Allergy/AdvReac Type Severity Reaction Status Date / Time No Known Allergies Allergy Unverified 01/28/20 16:07 [No Known Allergies*] Assessment & Plan Assessment & Plan (1) Schizoaffective disorder, bipolar type: Status: Acute Code(s): F25.0 - Schizoaffective disorder, bipolar type Assessment and Plan: 11/01 mildly up - positive mood=- but less irritable than in past visits 11/02 CTP (2) Dementia: Status: Acute Code(s): F03.90 - Unspecified dementia, unspecified severity, without behavioral disturbance, psychotic disturbance, mood disturbance, and anxiety Assessment and Plan: 11/01 ongoing dementia continue with reorientation and distraction prn - (3) Noncompliance: Status: Acute Code(s): Z91.199 - Patient's noncompliance with other medical treatment and regimen due to unspecified reason Assessment and Plan: seems to be taking medication currently - watches nurse crush them and put in ice cream Plan The patient is an elderly male with a past history of schizoaffective disorder, dementia, HIV and other medical problems, chronically mentally ill resident of assisted living facility referred to this facility after he became non compliant with medications with daniella and psychosis. The patient was assessed by crisis and transferring to this facility for psychiatric stabilization. At the moment of the interview the patient was able to contract for safety. Plan 1. Gather collateral information. 2. Continue with regular medications, we are not going to change his Depakote, olanzapine and Haldol Decanoate. 3. Reassessment with results. 4. 15 minutes checks since the patient is able to contract for safety. 5. Change Zyprexa to Zydis to avoid cheeking on October 02. 6. IM zyprexa ordered 10 mg t.i.d. p.r.n. refusal of p.o. as per court order. Total dose up to 30 mg a day. 7. Zyprexa increased up to 15 mg p.o. q.h.s. to target daniella and psychosis. Started on October 15. Zyprexa was increased up to 20 mg p.o. q.h.s. on October 17. 8. Increase Haldol up to 5 mg p.o. t.i.d. on October 22 and keep Haldol Decanoate as per court order. 9. Medical certificate issued. 10. Blood work f on November 18 without no changes. 11. Guardianship hearing for December 02 12. Waiting for placement Reason for continued inpatient stay Substantial Risk for: inability to function, rapid decompensation and med/psych decompensation Time Spent With Patient Time: Total time managing care of this patient today __20__ minutes.
[2023-12-12 20:00] VITALS: BP 115/74; PULSE 90; RESP 16; TEMP 36.3; O2SAT 95
[2023-12-12] MEDS: OLANZapine 10 MG TABLET 20 MG PO (21:22)
[2023-12-12] MEDS: Multivitamin TABLET 1 TAB PO (21:22)
[2023-12-12] MEDS: Mirtazapine 15 MG TABLET PO (21:22)
[2023-12-12] MEDS: traZODone HCL 50 MG TABLET PO (21:22)
[2023-12-13 07:40] VITALS: BP 123/76; PULSE 86; RESP 16; TEMP 36.5; O2SAT 96
[2023-12-13] MEDS: Emtricitabin/Tenofovir 200/300 TABLET 1 TAB PO (08:01)
[2023-12-13] MEDS: Thiamine HCL 100 MG TABLET PO (08:01)
[2023-12-13] MEDS: Rilpivirine HCL 25 MG TABLET PO (08:01)
[2023-12-13] MEDS: Divalproex Sodium Sprinkles 125 MG CAP.DR.SPR 250 MG PO ×3 (08:01→20:01)
[2023-12-13] MEDS: OLANZapine 5 MG TABLET PO ×2 (08:02→14:46)
[2023-12-13] MEDS: HaloperidoL 5 MG TABLET PO ×3 (08:02→20:01)
[2023-12-13] MEDS: levETIRAcetam 500 MG TABLET PO ×2 (08:02→20:01)
[2023-12-13] MEDS: amLODIPine Besylate 5 MG TABLET PO (08:02)
--- NOTE | 2023-12-13 14:31 | P.PNPSI_ITS ---
Subjective Subjective Date of Service: 12/13/23 Reason For Visit: F32.9 Subjective Notes: Conditional Voluntary Interim History: The nursing staff reported the patient had been fully compliant with treatment, pleasant cooperative. On interview the patient denies new symptoms, waiting for placement. Mental Status Exam Mental Status Exam Patient Appearance: Appropriate Patient Orientation: Person and Situation Level of Consciousness: Awake and Appropriate Patient Behavior: Guarded and Passive Mood Description: Withdrawn Affect Description: Constricted Patient Cognition Impaired: Yes Ability to Follow Directions: Good Speech Pattern: Clear Hallucinations: None Delusions: Not Present Thought Process: Distracted and Slowed Thinking Thought Content: positive for [place] and positive for Poverty of Content Judgement: Poor Diagnostics Vital Signs (24Hr): Vital Signs - 24 hr 12/12/23 20:00 12/13/23 07:40 Temperature 97.3 F 97.7 F Pulse Rate 90 86 Respiratory Rate 16 16 Blood Pressure 115/74 123/76 Pulse Oximetry 95 96 Oxygen Delivery Method Room Air Room Air BMI result Body Mass Index 18.2 Labs 11/19/23 08:03 11/19/23 08:03 Medications Medications Current Medications Acetaminophen (Acetaminophen 325 Mg Tablet) 650 mg PO Q6H PRN PRN Reason: Pain (Scale Score 1-3) Al Hydroxide/Mg Hydroxide (Magnesium Hydrox/Alum Hydrox 30 Ml Oral.Susp) 30 ml PO Q6H PRN PRN Reason: Heartburn/Nausea Last Admin: 11/12/23 06:20 Dose: 30 ml Albuterol Sulfate (Albuterol Sulfate 90 Mcg 8 Gm Inhaler) 2 puff INHALE RQ4H PRN PRN Reason: Wheezing Amlodipine Besylate (Amlodipine Besylate 5 Mg Tablet) 5 mg PO DAILY [facility]; Protocol Last Admin: 12/13/23 08:02 Dose: 5 mg Divalproex Sodium (Divalproex Sodium Sprinkles 125 Mg ) 250 mg PO TID [facility] Last Admin: 12/13/23 08:01 Dose: 250 mg Emtricitabine/Tenofovir (Emtricitabin/Tenofovir 200/300 Tablet) 1 tab PO DAILY [facility] Last Admin: 12/13/23 08:01 Dose: 1 tab Haloperidol (Haloperidol 5 Mg Tablet) 5 mg PO TID [facility] Last Admin: 12/13/23 08:02 Dose: 5 mg Haloperidol Decanoate (Haloperidol Decanoate 50 Mg/Ml Vial) 100 mg IM Q28D [facility] Last Admin: 11/25/23 20:59 Dose: 100 mg Levetiracetam (Levetiracetam 500 Mg Tablet) 500 mg PO BID [facility] Last Admin: 12/13/23 08:02 Dose: 500 mg Magnesium Hydroxide (Milk Of Magnesia 30 Ml Oral.Susp) 30 ml PO DAILY PRN PRN Reason: Constipation Mirtazapine (Mirtazapine 15 Mg Tablet) 15 mg PO BEDTIME [facility] Last Admin: 12/12/23 21:22 Dose: 15 mg Multivitamins/Vitamin C (Multivitamin Tablet) 1 tab PO BEDTIME [facility] Last Admin: 12/12/23 21:22 Dose: 1 tab Nicotine Polacrilex (Nicotine Polacrilex 2 Mg Gum) 4 mg BUCCAL Q2H PRN PRN Reason: Nicotine Cravings Olanzapine (Olanzapine 5 Mg Tablet) 5 mg PO BID@0800,1500 [facility] Last Admin: 12/13/23 08:02 Dose: 5 mg Olanzapine (Olanzapine 10 Mg Vial) 10 mg IM BEDTIME PRN PRN Reason: if refuses bedtime PO zyprexa Olanzapine (Olanzapine 10 Mg Vial) 5 mg IM BID@0800,1500 PRN PRN Reason: if refuses 0800/1500 PO zyprexa Last Admin: 10/13/23 14:58 Dose: 5 mg Olanzapine (Olanzapine 10 Mg Tablet) 20 mg PO BEDTIME [facility] Last Admin: 12/12/23 21:22 Dose: 20 mg Polyethylene Glycol (Polyethylene Glycol 3350 17 Gm Powd.Pack) 17 gm PO DAILY PRN PRN Reason: Constipation Rilpivirine (Rilpivirine Hcl 25 Mg Tablet) 25 mg PO DAILY [facility] Last Admin: 12/13/23 08:01 Dose: 25 mg Thiamine HCl (Thiamine Hcl 100 Mg Tablet) 100 mg PO DAILY [facility] Last Admin: 12/13/23 08:01 Dose: 100 mg Trazodone HCl (Trazodone Hcl 50 Mg Tablet) 50 mg PO BEDTIME MRX1 PRN PRN Reason: Insomnia Last Admin: 12/12/23 21:22 Dose: 50 mg Allergies Allergies Allergy/AdvReac Type Severity Reaction Status Date / Time No Known Allergies Allergy Unverified 01/28/20 16:07 [No Known Allergies*] Assessment & Plan Assessment & Plan (1) Schizoaffective disorder, bipolar type: Status: Acute Code(s): F25.0 - Schizoaffective disorder, bipolar type Assessment and Plan: 11/01 mildly up - positive mood=- but less irritable than in past visits 11/02 CTP (2) Dementia: Status: Acute Code(s): F03.90 - Unspecified dementia, unspecified severity, without behavioral disturbance, psychotic disturbance, mood disturbance, and anxiety Assessment and Plan: 11/01 ongoing dementia continue with reorientation and distraction prn - (3) Noncompliance: Status: Acute Code(s): Z91.199 - Patient's noncompliance with other medical treatment and regimen due to unspecified reason Assessment and Plan: seems to be taking medication currently - watches nurse crush them and put in ice cream Plan The patient is an elderly male with a past history of schizoaffective disorder, dementia, HIV and other medical problems, chronically mentally ill resident of assisted living facility referred to this facility after he became non compliant with medications with daniella and psychosis. The patient was assessed by crisis and transferring to this facility for psychiatric stabilization. At the moment of the interview the patient was able to contract for safety. Plan 1. Gather collateral information. 2. Continue with regular medications, we are not going to change his Depakote, olanzapine and Haldol Decanoate. 3. Reassessment with results. 4. 15 minutes checks since the patient is able to contract for safety. 5. Change Zyprexa to Zydis to avoid cheeking on October 02. 6. IM zyprexa ordered 10 mg t.i.d. p.r.n. refusal of p.o. as per court order. Total dose up to 30 mg a day. 7. Zyprexa increased up to 15 mg p.o. q.h.s. to target daniella and psychosis. Started on October 15. Zyprexa was increased up to 20 mg p.o. q.h.s. on October 17. 8. Increase Haldol up to 5 mg p.o. t.i.d. on October 22 and keep Haldol Decanoate as per court order. 9. Medical certificate issued. 10. Blood work f on November 18 without no changes. 11. Guardianship hearing for December 02 12. Waiting for placement Reason for continued inpatient stay Substantial Risk for: inability to function, rapid decompensation and med/psych decompensation Time Spent With Patient Time: Total time managing care of this patient today __20__ minutes.
[2023-12-13 20:00] VITALS: BP 114/71; PULSE 89; RESP 16; TEMP 36.8; O2SAT 94
[2023-12-13] MEDS: Mirtazapine 15 MG TABLET PO (20:00)
[2023-12-13] MEDS: Multivitamin TABLET 1 TAB PO (20:01)
[2023-12-13] MEDS: OLANZapine 10 MG TABLET 20 MG PO (20:01)
[2023-12-14 08:00] VITALS: BP 110/78; PULSE 100; RESP 18; TEMP 36.6; O2SAT 96
[2023-12-14] MEDS: Divalproex Sodium Sprinkles 125 MG CAP.DR.SPR 250 MG PO ×3 (08:21→20:10)
[2023-12-14] MEDS: levETIRAcetam 500 MG TABLET PO ×2 (08:21→20:11)
[2023-12-14] MEDS: Thiamine HCL 100 MG TABLET PO (08:21)
[2023-12-14] MEDS: Rilpivirine HCL 25 MG TABLET PO (08:21)
[2023-12-14] MEDS: OLANZapine 5 MG TABLET PO ×2 (08:21→15:21)
[2023-12-14] MEDS: Emtricitabin/Tenofovir 200/300 TABLET 1 TAB PO (08:21)
[2023-12-14] MEDS: HaloperidoL 5 MG TABLET PO ×3 (08:21→20:10)
[2023-12-14] MEDS: amLODIPine Besylate 5 MG TABLET PO (08:21)
--- NOTE | 2023-12-14 08:28 | HO.PSYCHPN ---
Subjective Subjective Date of Service: 12/14/23 Reason For Visit: F32.9 Subjective Notes: Conditional Voluntary Interim History: Pt slept through the night. No behavioral concerns. No overt psychosis or delusions. No SI/HI. No aggression towards self or others. Review of Systems Review of Systems General: No fevers, malaise, unintentional weight loss HEENT: No blurred vision, diplopia. No sore throat, nasal congestion, rhinorrhea, sinus pain, ear pain Cardiovascular: No chest pain, palpitations, or leg edema Respiratory: No shortness of breath, wheezing, cough GI: No abdominal pain, nausea, vomiting, diarrhea, constipation, melena, hematochezia : No dysuria, hematuria, increased urinary frequency, decreased urinary output MSK: No myalgia, back pain Neuro: No headaches, weakness, paresthesias Skin: No rashes or lesions Yes all other systems are reviewed and are negative and Unobtainable due to mental status Mental Status Exam Mental Status Exam Patient Appearance: Appropriate Patient Orientation: Person and Situation Level of Consciousness: Awake and Appropriate Patient Behavior: Guarded and Passive Mood Description: Withdrawn Affect Description: Constricted Patient Cognition Impaired: Yes Ability to Follow Directions: Good Speech Pattern: Clear Diagnostics Vital Signs (24Hr): Vital Signs - 24 hr 12/13/23 20:00 Temperature 98.3 F Pulse Rate 89 Respiratory Rate 16 Blood Pressure 114/71 Pulse Oximetry 94 Oxygen Delivery Method Room Air BMI result Body Mass Index 18.2 Labs 11/19/23 08:03 11/19/23 08:03 Medications Medications Current Medications Acetaminophen (Acetaminophen 325 Mg Tablet) 650 mg PO Q6H PRN PRN Reason: Pain (Scale Score 1-3) Al Hydroxide/Mg Hydroxide (Magnesium Hydrox/Alum Hydrox 30 Ml Oral.Susp) 30 ml PO Q6H PRN PRN Reason: Heartburn/Nausea Last Admin: 11/12/23 06:20 Dose: 30 ml Albuterol Sulfate (Albuterol Sulfate 90 Mcg 8 Gm Inhaler) 2 puff INHALE RQ4H PRN PRN Reason: Wheezing Amlodipine Besylate (Amlodipine Besylate 5 Mg Tablet) 5 mg PO DAILY [facility]; Protocol Last Admin: 12/14/23 08:21 Dose: 5 mg Divalproex Sodium (Divalproex Sodium Sprinkles 125 Mg ) 250 mg PO TID [facility] Last Admin: 12/14/23 08:21 Dose: 250 mg Emtricitabine/Tenofovir (Emtricitabin/Tenofovir 200/300 Tablet) 1 tab PO DAILY [facility] Last Admin: 12/14/23 08:21 Dose: 1 tab Haloperidol (Haloperidol 5 Mg Tablet) 5 mg PO TID [facility] Last Admin: 12/14/23 08:21 Dose: 5 mg Haloperidol Decanoate (Haloperidol Decanoate 50 Mg/Ml Vial) 100 mg IM Q28D [facility] Last Admin: 11/25/23 20:59 Dose: 100 mg Levetiracetam (Levetiracetam 500 Mg Tablet) 500 mg PO BID [facility] Last Admin: 12/14/23 08:21 Dose: 500 mg Magnesium Hydroxide (Milk Of Magnesia 30 Ml Oral.Susp) 30 ml PO DAILY PRN PRN Reason: Constipation Mirtazapine (Mirtazapine 15 Mg Tablet) 15 mg PO BEDTIME [facility] Last Admin: 12/13/23 20:00 Dose: 15 mg Multivitamins/Vitamin C (Multivitamin Tablet) 1 tab PO BEDTIME [facility] Last Admin: 12/13/23 20:01 Dose: 1 tab Nicotine Polacrilex (Nicotine Polacrilex 2 Mg Gum) 4 mg BUCCAL Q2H PRN PRN Reason: Nicotine Cravings Olanzapine (Olanzapine 5 Mg Tablet) 5 mg PO BID@0800,1500 [facility] Last Admin: 12/14/23 08:21 Dose: 5 mg Olanzapine (Olanzapine 10 Mg Vial) 10 mg IM BEDTIME PRN PRN Reason: if refuses bedtime PO zyprexa Olanzapine (Olanzapine 10 Mg Vial) 5 mg IM BID@0800,1500 PRN PRN Reason: if refuses 0800/1500 PO zyprexa Last Admin: 10/13/23 14:58 Dose: 5 mg Olanzapine (Olanzapine 10 Mg Tablet) 20 mg PO BEDTIME [facility] Last Admin: 12/13/23 20:01 Dose: 20 mg Polyethylene Glycol (Polyethylene Glycol 3350 17 Gm Powd.Pack) 17 gm PO DAILY PRN PRN Reason: Constipation Rilpivirine (Rilpivirine Hcl 25 Mg Tablet) 25 mg PO DAILY [facility] Last Admin: 12/14/23 08:21 Dose: 25 mg Thiamine HCl (Thiamine Hcl 100 Mg Tablet) 100 mg PO DAILY [facility] Last Admin: 12/14/23 08:21 Dose: 100 mg Trazodone HCl (Trazodone Hcl 50 Mg Tablet) 50 mg PO BEDTIME MRX1 PRN PRN Reason: Insomnia Last Admin: 12/12/23 21: Dose: 50 mg Allergies Allergies Allergy/AdvReac Type Severity Reaction Status Date / Time No Known Allergies Allergy Unverified 01/28/20 16:07 [No Known Allergies*] Assessment & Plan Assessment & Plan (1) Schizoaffective disorder, bipolar type: Status: Acute Code(s): F25.0 - Schizoaffective disorder, bipolar type Assessment and Plan: 11/01 mildly up - positive mood=- but less irritable than in past visits 11/02 CTP (2) Dementia: Status: Acute Code(s): F03.90 - Unspecified dementia, unspecified severity, without behavioral disturbance, psychotic disturbance, mood disturbance, and anxiety Assessment and Plan: 11/01 ongoing dementia continue with reorientation and distraction prn - (3) Noncompliance: Status: Acute Code(s): Z91.199 - Patient's noncompliance with other medical treatment and regimen due to unspecified reason Assessment and Plan: seems to be taking medication currently - watches nurse crush them and put in ice cream Plan The patient is an elderly male with a past history of schizoaffective disorder, dementia, HIV and other medical problems, chronically mentally ill resident of assisted living facility referred to this facility after he became non compliant with medications with daniella and psychosis. The patient was assessed by crisis and transferring to this facility for psychiatric stabilization. At the moment of the interview the patient was able to contract for safety. Plan 1. Gather collateral information. 2. Continue with regular medications, we are not going to change his Depakote, olanzapine and Haldol Decanoate. 3. Reassessment with results. 4. 15 minutes checks since the patient is able to contract for safety. 5. Change Zyprexa to Zydis to avoid cheeking on October 02. 6. IM zyprexa ordered 10 mg t.i.d. p.r.n. refusal of p.o. as per court order. Total dose up to 30 mg a day. 7. Zyprexa increased up to 15 mg p.o. q.h.s. to target daniella and psychosis. Started on October 15. Zyprexa was increased up to 20 mg p.o. q.h.s. on October 17. 8. Increase Haldol up to 5 mg p.o. t.i.d. on October 22 and keep Haldol Decanoate as per court order. 9. Medical certificate issued. 10. Blood work f on November 18 without no changes. 11. Guardianship hearing for December 02 12. Waiting for placement Reason for continued inpatient stay Substantial Risk for: inability to function Time Spent With Patient Time: Total time managing care of this patient today ____ minutes.
[2023-12-14 20:00] VITALS: BP 98/57; PULSE 93; RESP 16; TEMP 36.7; O2SAT 93
[2023-12-14] MEDS: Multivitamin TABLET 1 TAB PO (20:10)
[2023-12-14] MEDS: OLANZapine 10 MG TABLET 20 MG PO (20:11)
[2023-12-14] MEDS: Mirtazapine 15 MG TABLET PO (20:11)
[2023-12-15 08:50] VITALS: BP 105/62; PULSE 96; RESP 16; TEMP 36.3; O2SAT 94
[2023-12-15 08:56] VITALS: BP 105/62
[2023-12-15] MEDS: Divalproex Sodium Sprinkles 125 MG CAP.DR.SPR 250 MG PO ×3 (08:56→20:37)
[2023-12-15] MEDS: amLODIPine Besylate 5 MG TABLET PO (08:56)
[2023-12-15] MEDS: HaloperidoL 5 MG TABLET PO ×3 (08:57→20:37)
[2023-12-15] MEDS: Rilpivirine HCL 25 MG TABLET PO (08:57)
[2023-12-15] MEDS: levETIRAcetam 500 MG TABLET PO ×2 (08:57→20:37)
[2023-12-15] MEDS: Thiamine HCL 100 MG TABLET PO (08:57)
[2023-12-15] MEDS: Emtricitabin/Tenofovir 200/300 TABLET 1 TAB PO (08:57)
[2023-12-15] MEDS: OLANZapine 5 MG TABLET PO ×2 (09:14→15:11)
[2023-12-15 20:00] VITALS: BP 95/55; PULSE 90; RESP 16; TEMP 36.5; O2SAT 94
--- NOTE | 2023-12-15 20:04 | P.PNPSI_ITS ---
Subjective Subjective Date of Service: 12/15/23 Reason For Visit: F32.9 Interim History: Pt slept through the night. No behavioral concerns. No overt psychosis or delusions. No SI/HI. No aggression towards self or others. Review of Systems Review of Systems General: No fevers, malaise, unintentional weight loss HEENT: No blurred vision, diplopia. No sore throat, nasal congestion, rhinorrhea, sinus pain, ear pain Cardiovascular: No chest pain, palpitations, or leg edema Respiratory: No shortness of breath, wheezing, cough GI: No abdominal pain, nausea, vomiting, diarrhea, constipation, melena, hematochezia : No dysuria, hematuria, increased urinary frequency, decreased urinary output MSK: No myalgia, back pain Neuro: No headaches, weakness, paresthesias Skin: No rashes or lesions Yes all other systems are reviewed and are negative and Unobtainable due to mental status Mental Status Exam Mental Status Exam Patient Appearance: Appropriate Patient Orientation: Person and Situation Level of Consciousness: Awake and Appropriate Patient Behavior: Guarded and Passive Mood Description: Withdrawn Affect Description: Constricted Patient Cognition Impaired: Yes Ability to Follow Directions: Good Speech Pattern: Clear Diagnostics Vital Signs (24Hr): Vital Signs - 24 hr 12/15/23 08:50 12/15/23 08:56 Temperature 97.4 F Pulse Rate 96 Respiratory Rate 16 Blood Pressure 105/62 105/62 Pulse Oximetry 94 Oxygen Delivery Method Room Air BMI result Body Mass Index 18.2 Labs 11/19/23 08:03 11/19/23 08:03 Medications Medications Current Medications Acetaminophen (Acetaminophen 325 Mg Tablet) 650 mg PO Q6H PRN PRN Reason: Pain (Scale Score 1-3) Al Hydroxide/Mg Hydroxide (Magnesium Hydrox/Alum Hydrox 30 Ml Oral.Susp) 30 ml PO Q6H PRN PRN Reason: Heartburn/Nausea Last Admin: 11/12/23 06:20 Dose: 30 ml Albuterol Sulfate (Albuterol Sulfate 90 Mcg 8 Gm Inhaler) 2 puff INHALE RQ4H PRN PRN Reason: Wheezing Amlodipine Besylate (Amlodipine Besylate 5 Mg Tablet) 5 mg PO DAILY [facility]; Protocol Last Admin: 12/15/23 08:56 Dose: 5 mg Divalproex Sodium (Divalproex Sodium Sprinkles 125 Mg ) 250 mg PO TID [facility] Last Admin: 12/15/23 15:10 Dose: 250 mg Emtricitabine/Tenofovir (Emtricitabin/Tenofovir 200/300 Tablet) 1 tab PO DAILY [facility] Last Admin: 12/15/23 08:57 Dose: 1 tab Haloperidol (Haloperidol 5 Mg Tablet) 5 mg PO TID [facility] Last Admin: 12/15/23 15:11 Dose: 5 mg Haloperidol Decanoate (Haloperidol Decanoate 50 Mg/Ml Vial) 100 mg IM Q28D [facility] Last Admin: 11/25/23 20:59 Dose: 100 mg Levetiracetam (Levetiracetam 500 Mg Tablet) 500 mg PO BID [facility] Last Admin: 12/15/23 08:57 Dose: 500 mg Magnesium Hydroxide (Milk Of Magnesia 30 Ml Oral.Susp) 30 ml PO DAILY PRN PRN Reason: Constipation Mirtazapine (Mirtazapine 15 Mg Tablet) 15 mg PO BEDTIME [facility] Last Admin: 12/14/23 20:11 Dose: 15 mg Multivitamins/Vitamin C (Multivitamin Tablet) 1 tab PO BEDTIME [facility] Last Admin: 12/14/23 20:10 Dose: 1 tab Nicotine Polacrilex (Nicotine Polacrilex 2 Mg Gum) 4 mg BUCCAL Q2H PRN PRN Reason: Nicotine Cravings Olanzapine (Olanzapine 5 Mg Tablet) 5 mg PO BID@0800,1500 [facility] Last Admin: 12/15/23 15:11 Dose: 5 mg Olanzapine (Olanzapine 10 Mg Vial) 10 mg IM BEDTIME PRN PRN Reason: if refuses bedtime PO zyprexa Olanzapine (Olanzapine 10 Mg Vial) 5 mg IM BID@0800,1500 PRN PRN Reason: if refuses 0800/1500 PO zyprexa Last Admin: 10/13/23 14:58 Dose: 5 mg Olanzapine (Olanzapine 10 Mg Tablet) 20 mg PO BEDTIME [facility] Last Admin: 12/14/23 20:11 Dose: 20 mg Polyethylene Glycol (Polyethylene Glycol 3350 17 Gm Powd.Pack) 17 gm PO DAILY PRN PRN Reason: Constipation Rilpivirine (Rilpivirine Hcl 25 Mg Tablet) 25 mg PO DAILY [facility] Last Admin: 12/15/23 08:57 Dose: 25 mg Thiamine HCl (Thiamine Hcl 100 Mg Tablet) 100 mg PO DAILY [facility] Last Admin: 12/15/23 08:57 Dose: 100 mg Trazodone HCl (Trazodone Hcl 50 Mg Tablet) 50 mg PO BEDTIME MRX1 PRN PRN Reason: Insomnia Last Admin: 12/12/23 21:22 Dose: 50 mg Allergies Allergies Allergy/AdvReac Type Severity Reaction Status Date / Time No Known Allergies Allergy Unverified 01/28/20 16:07 [No Known Allergies*] Assessment & Plan Assessment & Plan (1) Schizoaffective disorder, bipolar type: Status: Acute Code(s): F25.0 - Schizoaffective disorder, bipolar type Assessment and Plan: 11/01 mildly up - positive mood=- but less irritable than in past visits 11/02 CTP (2) Dementia: Status: Acute Code(s): F03.90 - Unspecified dementia, unspecified severity, without behavioral disturbance, psychotic disturbance, mood disturbance, and anxiety Assessment and Plan: 11/01 ongoing dementia continue with reorientation and distraction prn - (3) Noncompliance: Status: Acute Code(s): Z91.199 - Patient's noncompliance with other medical treatment and regimen due to unspecified reason Assessment and Plan: seems to be taking medication currently - watches nurse crush them and put in ice cream Plan The patient is an elderly male with a past history of schizoaffective disorder, dementia, HIV and other medical problems, chronically mentally ill resident of assisted living facility referred to this facility after he became non compliant with medications with daniella and psychosis. The patient was assessed by crisis and transferring to this facility for psychiatric stabilization. At the moment of the interview the patient was able to contract for safety. Plan 1. Gather collateral information. 2. Continue with regular medications, we are not going to change his Depakote, olanzapine and Haldol Decanoate. 3. Reassessment with results. 4. 15 minutes checks since the patient is able to contract for safety. 5. Change Zyprexa to Zydis to avoid cheeking on October 02. 6. IM zyprexa ordered 10 mg t.i.d. p.r.n. refusal of p.o. as per court order. Total dose up to 30 mg a day. 7. Zyprexa increased up to 15 mg p.o. q.h.s. to target daniella and psychosis. Started on October 15. Zyprexa was increased up to 20 mg p.o. q.h.s. on October 17. 8. Increase Haldol up to 5 mg p.o. t.i.d. on October 22 and keep Haldol Decanoate as per court order. 9. Medical certificate issued. 10. Blood work f on November 18 without no changes. 11. Guardianship hearing for December 02 12. Waiting for placement Reason for continued inpatient stay Substantial Risk for: inability to function Time Spent With Patient Time: Total time managing care of this patient today ____ minutes.
[2023-12-15] MEDS: Multivitamin TABLET 1 TAB PO (20:36)
[2023-12-15] MEDS: OLANZapine 10 MG TABLET 20 MG PO (20:37)
[2023-12-15] MEDS: Mirtazapine 15 MG TABLET PO (20:37)
[2023-12-16 07:56] VITALS: BP 118/62; PULSE 96; RESP 16; TEMP 36.6; O2SAT 94
[2023-12-16] MEDS: Emtricitabin/Tenofovir 200/300 TABLET 1 TAB PO (08:32)
[2023-12-16] MEDS: OLANZapine 5 MG TABLET PO ×2 (08:32→14:21)
[2023-12-16] MEDS: HaloperidoL 5 MG TABLET PO ×3 (08:32→20:49)
[2023-12-16] MEDS: Rilpivirine HCL 25 MG TABLET PO (08:32)
[2023-12-16] MEDS: Thiamine HCL 100 MG TABLET PO (08:32)
[2023-12-16] MEDS: Divalproex Sodium Sprinkles 125 MG CAP.DR.SPR 250 MG PO ×3 (08:32→20:49)
[2023-12-16] MEDS: amLODIPine Besylate 5 MG TABLET PO (08:32)
[2023-12-16] MEDS: levETIRAcetam 500 MG TABLET PO ×2 (08:32→20:49)
--- NOTE | 2023-12-16 11:06 | HO.PSYCHPN ---
Subjective Subjective Date of Service: 12/16/23 Reason For Visit: F32.9 Subjective Notes: Conditional Voluntary Interim History: The nursing staff reported no changes in his mental status compliant with his medications. The social sciences lecturer reported that they are applying to [facility]. On interview the patient denies new symptoms, waiting for placement. Mental Status Exam Mental Status Exam Patient Appearance: Appropriate Patient Orientation: Person and Situation Level of Consciousness: Awake Patient Behavior: Guarded and Passive Mood Description: Withdrawn Affect Description: Constricted Patient Cognition Impaired: Yes Ability to Follow Directions: Good Speech Pattern: Clear Hallucinations: None Delusions: Not Present Thought Process: Distracted and Slowed Thinking Thought Content: positive for [place] and positive for Poverty of Content Judgement: Fair Diagnostics Vital Signs (24Hr): Vital Signs - 24 hr 12/15/23 20:00 12/16/23 07:56 Temperature 97.7 F 97.8 F Pulse Rate 90 96 Respiratory Rate 16 16 Blood Pressure 95/55 L 118/62 Pulse Oximetry 94 94 Oxygen Delivery Method Room Air Room Air BMI result Body Mass Index 18.2 Labs 11/19/23 08:03 11/19/23 08:03 Medications Medications Current Medications Acetaminophen (Acetaminophen 325 Mg Tablet) 650 mg PO Q6H PRN PRN Reason: Pain (Scale Score 1-3) Al Hydroxide/Mg Hydroxide (Magnesium Hydrox/Alum Hydrox 30 Ml Oral.Susp) 30 ml PO Q6H PRN PRN Reason: Heartburn/Nausea Last Admin: 11/12/23 06:20 Dose: 30 ml Albuterol Sulfate (Albuterol Sulfate 90 Mcg 8 Gm Inhaler) 2 puff INHALE RQ4H PRN PRN Reason: Wheezing Amlodipine Besylate (Amlodipine Besylate 5 Mg Tablet) 5 mg PO DAILY [facility]; Protocol Last Admin: 12/16/23 08:32 Dose: 5 mg Divalproex Sodium (Divalproex Sodium Sprinkles 125 Mg ) 250 mg PO TID [facility] Last Admin: 12/16/23 08:32 Dose: 250 mg Emtricitabine/Tenofovir (Emtricitabin/Tenofovir 200/300 Tablet) 1 tab PO DAILY [facility] Last Admin: 12/16/23 08:32 Dose: 1 tab Haloperidol (Haloperidol 5 Mg Tablet) 5 mg PO TID [facility] Last Admin: 12/16/23 08:32 Dose: 5 mg Haloperidol Decanoate (Haloperidol Decanoate 50 Mg/Ml Vial) 100 mg IM Q28D [facility] Last Admin: 11/25/23 20:59 Dose: 100 mg Levetiracetam (Levetiracetam 500 Mg Tablet) 500 mg PO BID [facility] Last Admin: 12/16/23 08:32 Dose: 500 mg Magnesium Hydroxide (Milk Of Magnesia 30 Ml Oral.Susp) 30 ml PO DAILY PRN PRN Reason: Constipation Mirtazapine (Mirtazapine 15 Mg Tablet) 15 mg PO BEDTIME [facility] Last Admin: 12/15/23 20:37 Dose: 15 mg Multivitamins/Vitamin C (Multivitamin Tablet) 1 tab PO BEDTIME [facility] Last Admin: 12/15/23 20:36 Dose: 1 tab Nicotine Polacrilex (Nicotine Polacrilex 2 Mg Gum) 4 mg BUCCAL Q2H PRN PRN Reason: Nicotine Cravings Olanzapine (Olanzapine 5 Mg Tablet) 5 mg PO BID@0800,1500 [facility] Last Admin: 12/16/23 08:32 Dose: 5 mg Olanzapine (Olanzapine 10 Mg Vial) 10 mg IM BEDTIME PRN PRN Reason: if refuses bedtime PO zyprexa Olanzapine (Olanzapine 10 Mg Vial) 5 mg IM BID@0800,1500 PRN PRN Reason: if refuses 0800/1500 PO zyprexa Last Admin: 10/13/23 14:58 Dose: 5 mg Olanzapine (Olanzapine 10 Mg Tablet) 20 mg PO BEDTIME [facility] Last Admin: 12/15/23 20:37 Dose: 20 mg Polyethylene Glycol (Polyethylene Glycol 3350 17 Gm Powd.Pack) 17 gm PO DAILY PRN PRN Reason: Constipation Rilpivirine (Rilpivirine Hcl 25 Mg Tablet) 25 mg PO DAILY [facility] Last Admin: 12/16/23 08:32 Dose: 25 mg Thiamine HCl (Thiamine Hcl 100 Mg Tablet) 100 mg PO DAILY [facility] Last Admin: 12/16/23 08:32 Dose: 100 mg Trazodone HCl (Trazodone Hcl 50 Mg Tablet) 50 mg PO BEDTIME MRX1 PRN PRN Reason: Insomnia Last Admin: 12/12/23 21:22 Dose: 50 mg Allergies Allergies Allergy/AdvReac Type Severity Reaction Status Date / Time No Known Allergies Allergy Unverified 01/28/20 16:07 [No Known Allergies*] Assessment & Plan Assessment & Plan (1) Schizoaffective disorder, bipolar type: Status: Acute Code(s): F25.0 - Schizoaffective disorder, bipolar type Assessment and Plan: 11/01 mildly up - positive mood=- but less irritable than in past visits 11/02 CTP (2) Dementia: Status: Acute Code(s): F03.90 - Unspecified dementia, unspecified severity, without behavioral disturbance, psychotic disturbance, mood disturbance, and anxiety Assessment and Plan: 11/01 ongoing dementia continue with reorientation and distraction prn - (3) Noncompliance: Status: Acute Code(s): Z91.199 - Patient's noncompliance with other medical treatment and regimen due to unspecified reason Assessment and Plan: seems to be taking medication currently - watches nurse crush them and put in ice cream Plan The patient is an elderly male with a past history of schizoaffective disorder, dementia, HIV and other medical problems, chronically mentally ill resident of assisted living facility referred to this facility after he became non compliant with medications with daniella and psychosis. The patient was assessed by crisis and transferring to this facility for psychiatric stabilization. At the moment of the interview the patient was able to contract for safety. Plan 1. Gather collateral information. 2. Continue with regular medications, we are not going to change his Depakote, olanzapine and Haldol Decanoate. 3. Reassessment with results. 4. 15 minutes checks since the patient is able to contract for safety. 5. Change Zyprexa to Zydis to avoid cheeking on October 02. 6. IM zyprexa ordered 10 mg t.i.d. p.r.n. refusal of p.o. as per court order. Total dose up to 30 mg a day. 7. Zyprexa increased up to 15 mg p.o. q.h.s. to target daniella and psychosis. Started on October 15. Zyprexa was increased up to 20 mg p.o. q.h.s. on October 17. 8. Increase Haldol up to 5 mg p.o. t.i.d. on October 22 and keep Haldol Decanoate as per court order. 9. Medical certificate issued. 10. Blood work f on November 18 without no changes. 11. Guardianship hearing for December 02 12. Waiting for placement Reason for continued inpatient stay Substantial Risk for: inability to function, rapid decompensation and med/psych decompensation Time Spent With Patient Time: Total time managing care of this patient today __20__ minutes.
[2023-12-16 20:00] VITALS: BP 105/60; PULSE 92; RESP 16; TEMP 36.2; O2SAT 95
[2023-12-16] MEDS: OLANZapine 10 MG TABLET 20 MG PO (20:49)
[2023-12-16] MEDS: Mirtazapine 15 MG TABLET PO (20:49)
[2023-12-16] MEDS: Multivitamin TABLET 1 TAB PO (20:49)
[2023-12-17 08:00] VITALS: BP 118/72; PULSE 92; RESP 16; TEMP 36.3; O2SAT 95
[2023-12-17] MEDS: Thiamine HCL 100 MG TABLET PO (08:27)
[2023-12-17] MEDS: Emtricitabin/Tenofovir 200/300 TABLET 1 TAB PO (08:27)
[2023-12-17] MEDS: HaloperidoL 5 MG TABLET PO ×3 (08:27→20:39)
[2023-12-17] MEDS: Rilpivirine HCL 25 MG TABLET PO (08:27)
[2023-12-17] MEDS: levETIRAcetam 500 MG TABLET PO ×2 (08:27→20:39)
[2023-12-17] MEDS: Divalproex Sodium Sprinkles 125 MG CAP.DR.SPR 250 MG PO ×3 (08:27→20:39)
[2023-12-17] MEDS: OLANZapine 5 MG TABLET PO ×2 (08:27→15:14)
[2023-12-17] MEDS: amLODIPine Besylate 5 MG TABLET PO (08:27)
--- NOTE | 2023-12-17 16:07 | HO.PSYCHPN ---
Subjective Subjective Date of Service: 12/17/23 Reason For Visit: F32.9 Subjective Notes: Conditional Voluntary Interim History: The nursing staff reported the patient had been fully compliant with treatment no changes in mental status. On interview the patient denies new symptoms, waiting for placement. Mental Status Exam Mental Status Exam Patient Appearance: Appropriate Patient Orientation: Person and Situation Level of Consciousness: Awake and Appropriate Patient Behavior: Guarded and Passive Mood Description: Withdrawn Affect Description: Constricted Patient Cognition Impaired: Yes Ability to Follow Directions: Good Speech Pattern: Clear Hallucinations: None Delusions: Not Present Thought Process: Distracted and Slowed Thinking Thought Content: positive for [place] and positive for Poverty of Content Judgement: Fair Diagnostics Vital Signs (24Hr): Vital Signs - 24 hr 12/16/23 20:00 12/17/23 08:00 Temperature 97.2 F 97.3 F Pulse Rate 92 92 Respiratory Rate 16 16 Blood Pressure 105/60 118/72 Pulse Oximetry 95 95 Oxygen Delivery Method Room Air Room Air BMI result Body Mass Index 18.2 Labs 11/19/23 08:03 11/19/23 08:03 Medications Medications Current Medications Acetaminophen (Acetaminophen 325 Mg Tablet) 650 mg PO Q6H PRN PRN Reason: Pain (Scale Score 1-3) Al Hydroxide/Mg Hydroxide (Magnesium Hydrox/Alum Hydrox 30 Ml Oral.Susp) 30 ml PO Q6H PRN PRN Reason: Heartburn/Nausea Last Admin: 11/12/23 06:20 Dose: 30 ml Albuterol Sulfate (Albuterol Sulfate 90 Mcg 8 Gm Inhaler) 2 puff INHALE RQ4H PRN PRN Reason: Wheezing Amlodipine Besylate (Amlodipine Besylate 5 Mg Tablet) 5 mg PO DAILY [facility]; Protocol Last Admin: 12/17/23 08:27 Dose: 5 mg Divalproex Sodium (Divalproex Sodium Sprinkles 125 Mg ) 250 mg PO TID [facility] Last Admin: 12/17/23 15:14 Dose: 250 mg Emtricitabine/Tenofovir (Emtricitabin/Tenofovir 200/300 Tablet) 1 tab PO DAILY [facility] Last Admin: 12/17/23 08:27 Dose: 1 tab Haloperidol (Haloperidol 5 Mg Tablet) 5 mg PO TID [facility] Last Admin: 12/17/23 15:14 Dose: 5 mg Haloperidol Decanoate (Haloperidol Decanoate 50 Mg/Ml Vial) 100 mg IM Q28D [facility] Last Admin: 11/25/23 20:59 Dose: 100 mg Levetiracetam (Levetiracetam 500 Mg Tablet) 500 mg PO BID [facility] Last Admin: 12/17/23 08:27 Dose: 500 mg Magnesium Hydroxide (Milk Of Magnesia 30 Ml Oral.Susp) 30 ml PO DAILY PRN PRN Reason: Constipation Mirtazapine (Mirtazapine 15 Mg Tablet) 15 mg PO BEDTIME [facility] Last Admin: 12/16/23 20:49 Dose: 15 mg Multivitamins/Vitamin C (Multivitamin Tablet) 1 tab PO BEDTIME [facility] Last Admin: 12/16/23 20:49 Dose: 1 tab Nicotine Polacrilex (Nicotine Polacrilex 2 Mg Gum) 4 mg BUCCAL Q2H PRN PRN Reason: Nicotine Cravings Olanzapine (Olanzapine 5 Mg Tablet) 5 mg PO BID@0800,1500 [facility] Last Admin: 12/17/23 15:14 Dose: 5 mg Olanzapine (Olanzapine 10 Mg Vial) 10 mg IM BEDTIME PRN PRN Reason: if refuses bedtime PO zyprexa Olanzapine (Olanzapine 10 Mg Vial) 5 mg IM BID@0800,1500 PRN PRN Reason: if refuses 0800/1500 PO zyprexa Last Admin: 10/13/23 14:58 Dose: 5 mg Olanzapine (Olanzapine 10 Mg Tablet) 20 mg PO BEDTIME [facility] Last Admin: 12/16/23 20:49 Dose: 20 mg Polyethylene Glycol (Polyethylene Glycol 3350 17 Gm Powd.Pack) 17 gm PO DAILY PRN PRN Reason: Constipation Rilpivirine (Rilpivirine Hcl 25 Mg Tablet) 25 mg PO DAILY [facility] Last Admin: 12/17/23 08:27 Dose: 25 mg Thiamine HCl (Thiamine Hcl 100 Mg Tablet) 100 mg PO DAILY [facility] Last Admin: 12/17/23 08:27 Dose: 100 mg Trazodone HCl (Trazodone Hcl 50 Mg Tablet) 50 mg PO BEDTIME MRX1 PRN PRN Reason: Insomnia Last Admin: 12/12/23 21:22 Dose: 50 mg Allergies Allergies Allergy/AdvReac Type Severity Reaction Status Date / Time No Known Allergies Allergy Unverified 01/28/20 16:07 [No Known Allergies*] Assessment & Plan Assessment & Plan (1) Schizoaffective disorder, bipolar type: Status: Acute Code(s): F25.0 - Schizoaffective disorder, bipolar type Assessment and Plan: 11/01 mildly up - positive mood=- but less irritable than in past visits 11/02 CTP (2) Dementia: Status: Acute Code(s): F03.90 - Unspecified dementia, unspecified severity, without behavioral disturbance, psychotic disturbance, mood disturbance, and anxiety Assessment and Plan: 11/01 ongoing dementia continue with reorientation and distraction prn - (3) Noncompliance: Status: Acute Code(s): Z91.199 - Patient's noncompliance with other medical treatment and regimen due to unspecified reason Assessment and Plan: seems to be taking medication currently - watches nurse crush them and put in ice cream Plan The patient is an elderly male with a past history of schizoaffective disorder, dementia, HIV and other medical problems, chronically mentally ill resident of assisted living facility referred to this facility after he became non compliant with medications with daniella and psychosis. The patient was assessed by crisis and transferring to this facility for psychiatric stabilization. At the moment of the interview the patient was able to contract for safety. Plan 1. Gather collateral information. 2. Continue with regular medications, we are not going to change his Depakote, olanzapine and Haldol Decanoate. 3. Reassessment with results. 4. 15 minutes checks since the patient is able to contract for safety. 5. Change Zyprexa to Zydis to avoid cheeking on October 02. 6. IM zyprexa ordered 10 mg t.i.d. p.r.n. refusal of p.o. as per court order. Total dose up to 30 mg a day. 7. Zyprexa increased up to 15 mg p.o. q.h.s. to target daniella and psychosis. Started on October 15. Zyprexa was increased up to 20 mg p.o. q.h.s. on October 17. 8. Increase Haldol up to 5 mg p.o. t.i.d. on October 22 and keep Haldol Decanoate as per court order. 9. Medical certificate issued. 10. Blood work f on November 18 without no changes. 11. Guardianship hearing for December 02 12. Waiting for placement Reason for continued inpatient stay Substantial Risk for: inability to function, rapid decompensation and med/psych decompensation Time Spent With Patient Time: Total time managing care of this patient today __20__ minutes.
[2023-12-17 20:00] VITALS: BP 108/73; PULSE 90; RESP 14; TEMP 36.5; O2SAT 94
[2023-12-17] MEDS: OLANZapine 10 MG TABLET 20 MG PO (20:39)
[2023-12-17] MEDS: Multivitamin TABLET 1 TAB PO (20:39)
[2023-12-17] MEDS: Mirtazapine 15 MG TABLET PO (20:39)
[2023-12-18 08:00] VITALS: BP 117/75; PULSE 95; RESP 16; TEMP 36.1; O2SAT 97
[2023-12-18] MEDS: Emtricitabin/Tenofovir 200/300 TABLET 1 TAB PO (08:12)
[2023-12-18] MEDS: OLANZapine 5 MG TABLET PO ×2 (08:12→15:06)
[2023-12-18] MEDS: levETIRAcetam 500 MG TABLET PO ×2 (08:12→21:08)
[2023-12-18] MEDS: amLODIPine Besylate 5 MG TABLET PO (08:12)
[2023-12-18] MEDS: Divalproex Sodium Sprinkles 125 MG CAP.DR.SPR 250 MG PO ×3 (08:12→21:07)
[2023-12-18] MEDS: Rilpivirine HCL 25 MG TABLET PO (08:13)
[2023-12-18] MEDS: Thiamine HCL 100 MG TABLET PO (08:13)
[2023-12-18] MEDS: HaloperidoL 5 MG TABLET PO ×3 (08:13→21:08)
--- NOTE | 2023-12-18 10:56 | HO.PSYCHPN ---
Subjective Subjective Date of Service: 12/18/23 Reason For Visit: F32.9 Subjective Notes: Conditional Voluntary Interim History: The nursing staff reported no changes in his mental status he remains withdrawn but easily redirectable. The social welfare administrator reported that he had been referred to 17 custodial facilities but there are no beds available. On interview the patient is pleasant cooperative no changes in mental status, waiting for placement. Mental Status Exam Mental Status Exam Patient Appearance: Appropriate Patient Orientation: Person and Situation Level of Consciousness: Awake and Appropriate Patient Behavior: Guarded and Passive Mood Description: Withdrawn Affect Description: Constricted Patient Cognition Impaired: Yes Ability to Follow Directions: Good Speech Pattern: Clear Hallucinations: None Delusions: Not Present Thought Process: Distracted and Slowed Thinking Thought Content: positive for Poverty of Content and positive for Thought Blocking Judgement: Fair Diagnostics Vital Signs (24Hr): Vital Signs - 24 hr 12/17/23 20:00 12/18/23 08:00 Temperature 97.7 F 96.9 F Pulse Rate 90 95 Respiratory Rate 14 16 Blood Pressure 108/73 117/75 Pulse Oximetry 94 97 Oxygen Delivery Method Room Air BMI result Body Mass Index 18.2 Labs 11/19/23 08:03 11/19/23 08:03 Medications Medications Current Medications Acetaminophen (Acetaminophen 325 Mg Tablet) 650 mg PO Q6H PRN PRN Reason: Pain (Scale Score 1-3) Al Hydroxide/Mg Hydroxide (Magnesium Hydrox/Alum Hydrox 30 Ml Oral.Susp) 30 ml PO Q6H PRN PRN Reason: Heartburn/Nausea Last Admin: 11/12/23 06:20 Dose: 30 ml Albuterol Sulfate (Albuterol Sulfate 90 Mcg 8 Gm Inhaler) 2 puff INHALE RQ4H PRN PRN Reason: Wheezing Amlodipine Besylate (Amlodipine Besylate 5 Mg Tablet) 5 mg PO DAILY [facility]; Protocol Last Admin: 12/18/23 08:12 Dose: 5 mg Divalproex Sodium (Divalproex Sodium Sprinkles 125 Mg ) 250 mg PO TID [facility] Last Admin: 12/18/23 08:12 Dose: 250 mg Emtricitabine/Tenofovir (Emtricitabin/Tenofovir 200/300 Tablet) 1 tab PO DAILY [facility] Last Admin: 12/18/23 08:12 Dose: 1 tab Haloperidol (Haloperidol 5 Mg Tablet) 5 mg PO TID [facility] Last Admin: 12/18/23 08:13 Dose: 5 mg Haloperidol Decanoate (Haloperidol Decanoate 50 Mg/Ml Vial) 100 mg IM Q28D [facility] Last Admin: 11/25/23 20:59 Dose: 100 mg Levetiracetam (Levetiracetam 500 Mg Tablet) 500 mg PO BID [facility] Last Admin: 12/18/23 08:12 Dose: 500 mg Magnesium Hydroxide (Milk Of Magnesia 30 Ml Oral.Susp) 30 ml PO DAILY PRN PRN Reason: Constipation Mirtazapine (Mirtazapine 15 Mg Tablet) 15 mg PO BEDTIME [facility] Last Admin: 12/17/23 20:39 Dose: 15 mg Multivitamins/Vitamin C (Multivitamin Tablet) 1 tab PO BEDTIME [facility] Last Admin: 12/17/23 20:39 Dose: 1 tab Nicotine Polacrilex (Nicotine Polacrilex 2 Mg Gum) 4 mg BUCCAL Q2H PRN PRN Reason: Nicotine Cravings Olanzapine (Olanzapine 5 Mg Tablet) 5 mg PO BID@0800,1500 [facility] Last Admin: 12/18/23 08:12 Dose: 5 mg Olanzapine (Olanzapine 10 Mg Vial) 10 mg IM BEDTIME PRN PRN Reason: if refuses bedtime PO zyprexa Olanzapine (Olanzapine 10 Mg Vial) 5 mg IM BID@0800,1500 PRN PRN Reason: if refuses 0800/1500 PO zyprexa Last Admin: 10/13/23 14:58 Dose: 5 mg Olanzapine (Olanzapine 10 Mg Tablet) 20 mg PO BEDTIME [facility] Last Admin: 12/17/23 20:39 Dose: 20 mg Polyethylene Glycol (Polyethylene Glycol 3350 17 Gm Powd.Pack) 17 gm PO DAILY PRN PRN Reason: Constipation Rilpivirine (Rilpivirine Hcl 25 Mg Tablet) 25 mg PO DAILY [facility] Last Admin: 12/18/23 08:13 Dose: 25 mg Thiamine HCl (Thiamine Hcl 100 Mg Tablet) 100 mg PO DAILY [facility] Last Admin: 12/18/23 08:13 Dose: 100 mg Trazodone HCl (Trazodone Hcl 50 Mg Tablet) 50 mg PO BEDTIME MRX1 PRN PRN Reason: Insomnia Last Admin: 12/12/23 21:22 Dose: 50 mg Allergies Allergies Allergy/AdvReac Type Severity Reaction Status Date / Time No Known Allergies Allergy Unverified 01/28/20 16:07 [No Known Allergies*] Assessment & Plan Assessment & Plan (1) Schizoaffective disorder, bipolar type: Status: Acute Code(s): F25.0 - Schizoaffective disorder, bipolar type Assessment and Plan: 11/01 mildly up - positive mood=- but less irritable than in past visits 11/02 CTP (2) Dementia: Status: Acute Code(s): F03.90 - Unspecified dementia, unspecified severity, without behavioral disturbance, psychotic disturbance, mood disturbance, and anxiety Assessment and Plan: 11/01 ongoing dementia continue with reorientation and distraction prn - (3) Noncompliance: Status: Acute Code(s): Z91.199 - Patient's noncompliance with other medical treatment and regimen due to unspecified reason Assessment and Plan: seems to be taking medication currently - watches nurse crush them and put in ice cream Plan The patient is an elderly male with a past history of schizoaffective disorder, dementia, HIV and other medical problems, chronically mentally ill resident of assisted living facility referred to this facility after he became non compliant with medications with daniella and psychosis. The patient was assessed by crisis and transferring to this facility for psychiatric stabilization. At the moment of the interview the patient was able to contract for safety. Plan 1. Gather collateral information. 2. Continue with regular medications, we are not going to change his Depakote, olanzapine and Haldol Decanoate. 3. Reassessment with results. 4. 15 minutes checks since the patient is able to contract for safety. 5. Change Zyprexa to Zydis to avoid cheeking on October 02. 6. IM zyprexa ordered 10 mg t.i.d. p.r.n. refusal of p.o. as per court order. Total dose up to 30 mg a day. 7. Zyprexa increased up to 15 mg p.o. q.h.s. to target daniella and psychosis. Started on October 15. Zyprexa was increased up to 20 mg p.o. q.h.s. on October 17. 8. Increase Haldol up to 5 mg p.o. t.i.d. on October 22 and keep Haldol Decanoate as per court order. 9. Medical certificate issued. 10. Blood work f on November 18 without no changes. 11. Guardianship hearing for December 02. Waiting for placement Reason for continued inpatient stay Substantial Risk for: inability to function, rapid decompensation and med/psych decompensation Time Spent With Patient Time: Total time managing care of this patient today __20__ minutes.
--- NOTE | 2023-12-18 16:01 | MHC.CLN ---
F/U DIET=REGULAR. ENSURE TID TO INCREASE KCALS/NUTRITION. SUPPLEMENT PROVIDES 1050 KCALS, 60 G PROTEIN. CONTINUES WITH USUALLY GOOD INTAKE, 100% MOST MEALS. FOLLOW FOR INTAKE OF MEALS AND SUPPLEMENT. RD TO FOLLOW UP WEEKLY.
[2023-12-18 20:00] VITALS: BP 102/62; PULSE 99; RESP 18; TEMP 36.1; O2SAT 93
[2023-12-18] MEDS: OLANZapine 10 MG TABLET 20 MG PO (21:07)
[2023-12-18] MEDS: Mirtazapine 15 MG TABLET PO (21:08)
[2023-12-18] MEDS: Multivitamin TABLET 1 TAB PO (21:08)
[2023-12-19 07:55] VITALS: BP 112/74; PULSE 98; RESP 18; TEMP 36.4; O2SAT 94
[2023-12-19] MEDS: Rilpivirine HCL 25 MG TABLET PO (08:13)
[2023-12-19] MEDS: levETIRAcetam 500 MG TABLET PO ×2 (08:13→20:07)
[2023-12-19] MEDS: HaloperidoL 5 MG TABLET PO ×3 (08:13→20:07)
[2023-12-19] MEDS: Divalproex Sodium Sprinkles 125 MG CAP.DR.SPR 250 MG PO ×3 (08:13→20:07)
[2023-12-19] MEDS: amLODIPine Besylate 5 MG TABLET PO (08:13)
[2023-12-19] MEDS: Emtricitabin/Tenofovir 200/300 TABLET 1 TAB PO (08:13)
[2023-12-19] MEDS: Thiamine HCL 100 MG TABLET PO (08:14)
[2023-12-19] MEDS: OLANZapine 5 MG TABLET PO ×2 (08:14→15:43)
[2023-12-19 09:07] VITALS: BMI 19.0
--- NOTE | 2023-12-19 16:15 | P.PNPSI_ITS ---
Subjective Subjective Date of Service: 12/19/23 Reason For Visit: F32.9 Subjective Notes: Conditional Voluntary Interim History: The nursing staff reported no changes in his mental status he remains hypoactive and watch TV sporadically. The addiction social worker reported that [facility] has seen him and probably he will be accepted. On interview the patient this hypoactive we decided to lower Haldol to 5 mg p.o. b.i.d.. Mental Status Exam Mental Status Exam Patient Appearance: Appropriate Patient Orientation: Person and Situation Level of Consciousness: Awake Patient Behavior: Guarded and Passive Mood Description: Withdrawn Affect Description: Constricted Patient Cognition Impaired: Yes Ability to Follow Directions: Good Speech Pattern: Clear Hallucinations: None Delusions: Not Present Thought Process: Distracted and Slowed Thinking Thought Content: positive for [place] and positive for Poverty of Content Judgement: Fair Diagnostics Vital Signs (24Hr): Vital Signs - 24 hr 12/18/23 20:00 12/19/23 07:55 Temperature 97 F 97.6 F Pulse Rate 99 98 Respiratory Rate 18 18 Blood Pressure 102/62 112/74 Pulse Oximetry 93 94 Oxygen Delivery Method Room Air Room Air BMI result Body Mass Index 19.0 Labs 11/19/23 08:03 11/19/23 08:03 Medications Medications Current Medications Acetaminophen (Acetaminophen 325 Mg Tablet) 650 mg PO Q6H PRN PRN Reason: Pain (Scale Score 1-3) Al Hydroxide/Mg Hydroxide (Magnesium Hydrox/Alum Hydrox 30 Ml Oral.Susp) 30 ml PO Q6H PRN PRN Reason: Heartburn/Nausea Last Admin: 11/12/23 06:20 Dose: 30 ml Albuterol Sulfate (Albuterol Sulfate 90 Mcg 8 Gm Inhaler) 2 puff INHALE RQ4H PRN PRN Reason: Wheezing Amlodipine Besylate (Amlodipine Besylate 5 Mg Tablet) 5 mg PO DAILY [facility]; Protocol Last Admin: 12/19/23 08:13 Dose: 5 mg Divalproex Sodium (Divalproex Sodium Sprinkles 125 Mg ) 250 mg PO TID [facility] Last Admin: 12/19/23 15:43 Dose: 250 mg Emtricitabine/Tenofovir (Emtricitabin/Tenofovir 200/300 Tablet) 1 tab PO DAILY [facility] Last Admin: 12/19/23 08:13 Dose: 1 tab Haloperidol (Haloperidol 5 Mg Tablet) 5 mg PO BID [facility] Haloperidol Decanoate (Haloperidol Decanoate 50 Mg/Ml Vial) 100 mg IM Q28D [facility] Last Admin: 11/25/23 20:59 Dose: 100 mg Levetiracetam (Levetiracetam 500 Mg Tablet) 500 mg PO BID [facility] Last Admin: 12/19/23 08:13 Dose: 500 mg Magnesium Hydroxide (Milk Of Magnesia 30 Ml Oral.Susp) 30 ml PO DAILY PRN PRN Reason: Constipation Mirtazapine (Mirtazapine 15 Mg Tablet) 15 mg PO BEDTIME [facility] Last Admin: 12/18/23 21:08 Dose: 15 mg Multivitamins/Vitamin C (Multivitamin Tablet) 1 tab PO BEDTIME [facility] Last Admin: 12/18/23 21:08 Dose: 1 tab Nicotine Polacrilex (Nicotine Polacrilex 2 Mg Gum) 4 mg BUCCAL Q2H PRN PRN Reason: Nicotine Cravings Olanzapine (Olanzapine 5 Mg Tablet) 5 mg PO BID@0800,1500 [facility] Last Admin: 12/19/23 15:43 Dose: 5 mg Olanzapine (Olanzapine 10 Mg Vial) 10 mg IM BEDTIME PRN PRN Reason: if refuses bedtime PO zyprexa Olanzapine (Olanzapine 10 Mg Vial) 5 mg IM BID@0800,1500 PRN PRN Reason: if refuses 0800/1500 PO zyprexa Last Admin: 10/13/23 14:58 Dose: 5 mg Olanzapine (Olanzapine 10 Mg Tablet) 20 mg PO BEDTIME [facility] Last Admin: 12/18/23 21:07 Dose: 20 mg Polyethylene Glycol (Polyethylene Glycol 3350 17 Gm Powd.Pack) 17 gm PO DAILY PRN PRN Reason: Constipation Rilpivirine (Rilpivirine Hcl 25 Mg Tablet) 25 mg PO DAILY [facility] Last Admin: 12/19/23 08:13 Dose: 25 mg Thiamine HCl (Thiamine Hcl 100 Mg Tablet) 100 mg PO DAILY [facility] Last Admin: 12/19/23 08:14 Dose: 100 mg Trazodone HCl (Trazodone Hcl 50 Mg Tablet) 50 mg PO BEDTIME MRX1 PRN PRN Reason: Insomnia Last Admin: 12/12/23 21:22 Dose: 50 mg Allergies Allergies Allergy/AdvReac Type Severity Reaction Status Date / Time No Known Allergies Allergy Unverified 01/28/20 16:07 [No Known Allergies*] Assessment & Plan Assessment & Plan (1) Schizoaffective disorder, bipolar type: Status: Acute Code(s): F25.0 - Schizoaffective disorder, bipolar type Assessment and Plan: 11/01 mildly up - positive mood=- but less irritable than in past visits 11/02 CTP (2) Dementia: Status: Acute Code(s): F03.90 - Unspecified dementia, unspecified severity, without behavioral disturbance, psychotic disturbance, mood disturbance, and anxiety Assessment and Plan: 11/01 ongoing dementia continue with reorientation and distraction prn - (3) Noncompliance: Status: Acute Code(s): Z91.199 - Patient's noncompliance with other medical treatment and regimen due to unspecified reason Assessment and Plan: seems to be taking medication currently - watches nurse crush them and put in ice cream Plan The patient is an elderly male with a past history of schizoaffective disorder, dementia, HIV and other medical problems, chronically mentally ill resident of assisted living facility referred to this facility after he became non compliant with medications with daniella and psychosis. The patient was assessed by crisis and transferring to this facility for psychiatric stabilization. At the moment of the interview the patient was able to contract for safety. Plan 1. Gather collateral information. 2. Continue with regular medications, we are not going to change his Depakote, olanzapine and Haldol Decanoate. 3. Reassessment with results. 4. 15 minutes checks since the patient is able to contract for safety. 5. Change Zyprexa to Zydis to avoid cheeking on October 02. 6. IM zyprexa ordered 10 mg t.i.d. p.r.n. refusal of p.o. as per court order. Total dose up to 30 mg a day. 7. Zyprexa increased up to 15 mg p.o. q.h.s. to target daniella and psychosis. Started on October 15. Zyprexa was increased up to 20 mg p.o. q.h.s. on October 17. 8. Increase Haldol up to 5 mg p.o. t.i.d. on October 22 and keep Haldol Decanoate as per court order. On December 18 we lowered Haldol to 5 mg p.o. b.i.d. 9. Medical certificate issued. 10. Blood work f on November 18 without no changes. 11. Guardianship hearing for December 02 12. Waiting for placement Reason for continued inpatient stay Substantial Risk for: inability to function, rapid decompensation and med/psych decompensation Time Spent With Patient Time: Total time managing care of this patient today __20__ minutes.
[2023-12-19 20:00] VITALS: BP 117/68; PULSE 89; RESP 16; TEMP 36.3; O2SAT 94
[2023-12-19] MEDS: OLANZapine 10 MG TABLET 20 MG PO (20:07)
[2023-12-19] MEDS: Multivitamin TABLET 1 TAB PO (20:07)
[2023-12-19] MEDS: Mirtazapine 15 MG TABLET PO (20:07)
[2023-12-19] MEDS: Acetaminophen 325 MG TABLET 650 MG PO (20:10)
[2023-12-20 08:23] VITALS: BP 107/60; PULSE 91; RESP 16; TEMP 36; O2SAT 94
[2023-12-20] MEDS: Emtricitabin/Tenofovir 200/300 TABLET 1 TAB PO (09:28)
[2023-12-20] MEDS: Rilpivirine HCL 25 MG TABLET PO (09:28)
[2023-12-20 09:29] VITALS: BP 107/60
[2023-12-20] MEDS: Divalproex Sodium Sprinkles 125 MG CAP.DR.SPR 250 MG PO ×3 (09:29→20:43)
[2023-12-20] MEDS: HaloperidoL 5 MG TABLET PO ×2 (09:29→20:44)
[2023-12-20] MEDS: amLODIPine Besylate 5 MG TABLET PO (09:29)
[2023-12-20] MEDS: levETIRAcetam 500 MG TABLET PO ×2 (09:30→20:44)
[2023-12-20] MEDS: OLANZapine 5 MG TABLET PO ×2 (09:30→14:15)
[2023-12-20] MEDS: Thiamine HCL 100 MG TABLET PO (09:31)
--- NOTE | 2023-12-20 15:33 | HO.PSYCHPN ---
Subjective Subjective Date of Service: 12/20/23 Reason For Visit: F32.9 Subjective Notes: Conditional Voluntary Interim History: The nursing staff reported no changes in his mental status, he had been cooperative and pleasant. Most of the time a little over-sedated. We recently lowered Haldol to 5 mg p.o. b.i.d.. The social sciences instructor reported that no beds at this moment and [facility] and other places had been applied. On interview the patient denies new symptoms, waiting for placement. Mental Status Exam Mental Status Exam Patient Appearance: Appropriate Patient Orientation: Person and Situation Level of Consciousness: Awake and Appropriate Patient Behavior: Guarded and Passive Mood Description: Withdrawn Affect Description: Calm Patient Cognition Impaired: Yes Ability to Follow Directions: Good Speech Pattern: Clear Hallucinations: None Delusions: Not Present Thought Process: Distracted and Slowed Thinking Thought Content: positive for [place] and positive for Poverty of Content Judgement: Fair Diagnostics Vital Signs (24Hr): Vital Signs - 24 hr 12/19/23 20:00 12/20/23 08:23 12/20/23 09:29 Temperature 97.3 F 96.8 F Pulse Rate 89 91 Respiratory Rate 16 16 Blood Pressure 117/68 107/60 107/60 Pulse Oximetry 94 94 Oxygen Delivery Method Room Air Room Air BMI result Body Mass Index 19.0 Labs 11/19/23 08:03 11/19/23 08:03 Medications Medications Current Medications Acetaminophen (Acetaminophen 325 Mg Tablet) 650 mg PO Q6H PRN PRN Reason: Pain (Scale Score 1-3) Last Admin: 12/19/23 20:10 Dose: 650 mg Al Hydroxide/Mg Hydroxide (Magnesium Hydrox/Alum Hydrox 30 Ml Oral.Susp) 30 ml PO Q6H PRN PRN Reason: Heartburn/Nausea Last Admin: 11/12/23 06:20 Dose: 30 ml Albuterol Sulfate (Albuterol Sulfate 90 Mcg 8 Gm Inhaler) 2 puff INHALE RQ4H PRN PRN Reason: Wheezing Amlodipine Besylate (Amlodipine Besylate 5 Mg Tablet) 5 mg PO DAILY [facility]; Protocol Last Admin: 12/20/23 09:29 Dose: 5 mg Divalproex Sodium (Divalproex Sodium Sprinkles 125 Mg ) 250 mg PO TID [facility] Last Admin: 12/20/23 14:14 Dose: 250 mg Emtricitabine/Tenofovir (Emtricitabin/Tenofovir 200/300 Tablet) 1 tab PO DAILY [facility] Last Admin: 12/20/23 09:28 Dose: 1 tab Haloperidol (Haloperidol 5 Mg Tablet) 5 mg PO BID [facility] Last Admin: 12/20/23 09:29 Dose: 5 mg Haloperidol Decanoate (Haloperidol Decanoate 50 Mg/Ml Vial) 100 mg IM Q28D [facility] Last Admin: 11/25/23 20:59 Dose: 100 mg Levetiracetam (Levetiracetam 500 Mg Tablet) 500 mg PO BID [facility] Last Admin: 12/20/23 09:30 Dose: 500 mg Magnesium Hydroxide (Milk Of Magnesia 30 Ml Oral.Susp) 30 ml PO DAILY PRN PRN Reason: Constipation Mirtazapine (Mirtazapine 15 Mg Tablet) 15 mg PO BEDTIME [facility] Last Admin: 12/19/23 20:07 Dose: 15 mg Multivitamins/Vitamin C (Multivitamin Tablet) 1 tab PO BEDTIME [facility] Last Admin: 12/19/23 20:07 Dose: 1 tab Nicotine Polacrilex (Nicotine Polacrilex 2 Mg Gum) 4 mg BUCCAL Q2H PRN PRN Reason: Nicotine Cravings Olanzapine (Olanzapine 5 Mg Tablet) 5 mg PO BID@0800,1500 [facility] Last Admin: 12/20/23 14:15 Dose: 5 mg Olanzapine (Olanzapine 10 Mg Vial) 10 mg IM BEDTIME PRN PRN Reason: if refuses bedtime PO zyprexa Olanzapine (Olanzapine 10 Mg Vial) 5 mg IM BID@0800,1500 PRN PRN Reason: if refuses 0800/1500 PO zyprexa Last Admin: 10/13/23 14:58 Dose: 5 mg Olanzapine (Olanzapine 10 Mg Tablet) 20 mg PO BEDTIME [facility] Last Admin: 12/19/23 20:07 Dose: 20 mg Polyethylene Glycol (Polyethylene Glycol 3350 17 Gm Powd.Pack) 17 gm PO DAILY PRN PRN Reason: Constipation Rilpivirine (Rilpivirine Hcl 25 Mg Tablet) 25 mg PO DAILY [facility] Last Admin: 12/20/23 09:28 Dose: 25 mg Thiamine HCl (Thiamine Hcl 100 Mg Tablet) 100 mg PO DAILY [facility] Last Admin: 12/20/23 09:31 Dose: 100 mg Trazodone HCl (Trazodone Hcl 50 Mg Tablet) 50 mg PO BEDTIME MRX1 PRN PRN Reason: Insomnia Last Admin: 12/12/23 21:22 Dose: 50 mg Allergies Allergies Allergy/AdvReac Type Severity Reaction Status Date / Time No Known Allergies Allergy Unverified 01/28/20 16:07 [No Known Allergies*] Assessment & Plan Assessment & Plan (1) Schizoaffective disorder, bipolar type: Status: Acute Code(s): F25.0 - Schizoaffective disorder, bipolar type Assessment and Plan: 11/01 mildly up - positive mood=- but less irritable than in past visits 11/02 CTP (2) Dementia: Status: Acute Code(s): F03.90 - Unspecified dementia, unspecified severity, without behavioral disturbance, psychotic disturbance, mood disturbance, and anxiety Assessment and Plan: 11/01 ongoing dementia continue with reorientation and distraction prn - (3) Noncompliance: Status: Acute Code(s): Z91.199 - Patient's noncompliance with other medical treatment and regimen due to unspecified reason Assessment and Plan: seems to be taking medication currently - watches nurse crush them and put in ice cream Plan The patient is an elderly male with a past history of schizoaffective disorder, dementia, HIV and other medical problems, chronically mentally ill resident of assisted living facility referred to this facility after he became non compliant with medications with daniella and psychosis. The patient was assessed by crisis and transferring to this facility for psychiatric stabilization. At the moment of the interview the patient was able to contract for safety. Plan 1. Gather collateral information. 2. Continue with regular medications, we are not going to change his Depakote, olanzapine and Haldol Decanoate. 3. Reassessment with results. 4. 15 minutes checks since the patient is able to contract for safety. 5. Change Zyprexa to Zydis to avoid cheeking on October 02. 6. IM zyprexa ordered 10 mg t.i.d. p.r.n. refusal of p.o. as per court order. Total dose up to 30 mg a day. 7. Zyprexa increased up to 15 mg p.o. q.h.s. to target daniella and psychosis. Started on October 15. Zyprexa was increased up to 20 mg p.o. q.h.s. on October 17. 8. Increase Haldol up to 5 mg p.o. t.i.d. on October 22 and keep Haldol Decanoate as per court order. On December 18 we lowered Haldol to 5 mg p.o. b.i.d. 9. Medical certificate issued. 10. Blood work f on November 18 without no changes. 11. Guardianship hearing for December 02 12. Waiting for placement Reason for continued inpatient stay Substantial Risk for: inability to function, rapid decompensation and med/psych decompensation Time Spent With Patient Time: Total time managing care of this patient today __20__ minutes.
--- NOTE | 2023-12-20 18:48 | PC.NURSE ---
Haldol decreased from 5mg TID to 5mg BID.
[2023-12-20 20:00] VITALS: BP 96/55; PULSE 87; RESP 17; TEMP 36.6; O2SAT 95
[2023-12-20] MEDS: Multivitamin TABLET 1 TAB PO (20:43)
[2023-12-20] MEDS: OLANZapine 10 MG TABLET 20 MG PO (20:43)
[2023-12-20] MEDS: Mirtazapine 15 MG TABLET PO (20:44)
[2023-12-21 07:55] VITALS: BP 122/75; PULSE 97; RESP 18; TEMP 35.8; O2SAT 98
[2023-12-21] MEDS: Thiamine HCL 100 MG TABLET PO (08:54)
[2023-12-21] MEDS: levETIRAcetam 500 MG TABLET PO ×2 (08:54→21:24)
[2023-12-21] MEDS: OLANZapine 5 MG TABLET PO ×2 (08:54→15:20)
[2023-12-21] MEDS: Emtricitabin/Tenofovir 200/300 TABLET 1 TAB PO (08:54)
[2023-12-21] MEDS: Divalproex Sodium Sprinkles 125 MG CAP.DR.SPR 250 MG PO ×3 (08:54→21:24)
[2023-12-21] MEDS: amLODIPine Besylate 5 MG TABLET PO (08:54)
[2023-12-21] MEDS: Rilpivirine HCL 25 MG TABLET PO (08:55)
[2023-12-21] MEDS: HaloperidoL 5 MG TABLET PO ×2 (08:57→21:24)
--- NOTE | 2023-12-21 09:03 | HO.PSYCHPN ---
Subjective Subjective Date of Service: 12/21/23 Reason For Visit: F32.9 Subjective Notes: Conditional Voluntary Interim History: Nursing staff reported the patient's affect is brighter he had been seen responding to internal stimuli but it is chronic behavior. He has been calm cooperative vital staff signs stable slept 8 hours. On interview the patient denies new symptoms, waiting for placement. Mental Status Exam Mental Status Exam Patient Appearance: Appropriate Patient Orientation: Person and Situation Level of Consciousness: Awake and Appropriate Patient Behavior: Guarded and Passive Mood Description: Withdrawn Affect Description: Constricted Patient Cognition Impaired: Yes Ability to Follow Directions: Good Speech Pattern: Clear Hallucinations: Auditory Delusions: Not Present Thought Process: Distracted and Slowed Thinking Thought Content: positive for [place] and positive for Poverty of Content Judgement: Fair Diagnostics Vital Signs (24Hr): Vital Signs - 24 hr 12/20/23 09:29 12/20/23 20:00 12/21/23 07:55 Temperature 97.8 F 96.5 F L Pulse Rate 87 97 Respiratory Rate 17 18 Blood Pressure 107/60 96/55 L 122/75 Pulse Oximetry 95 98 Oxygen Delivery Method Room Air Room Air BMI result Body Mass Index 19.0 Labs 11/19/23 08:03 11/19/23 08:03 Medications Medications Current Medications Acetaminophen (Acetaminophen 325 Mg Tablet) 650 mg PO Q6H PRN PRN Reason: Pain (Scale Score 1-3) Last Admin: 12/19/23 20:10 Dose: 650 mg Al Hydroxide/Mg Hydroxide (Magnesium Hydrox/Alum Hydrox 30 Ml Oral.Susp) 30 ml PO Q6H PRN PRN Reason: Heartburn/Nausea Last Admin: 11/12/23 06:20 Dose: 30 ml Albuterol Sulfate (Albuterol Sulfate 90 Mcg 8 Gm Inhaler) 2 puff INHALE RQ4H PRN PRN Reason: Wheezing Amlodipine Besylate (Amlodipine Besylate 5 Mg Tablet) 5 mg PO DAILY [facility]; Protocol Last Admin: 12/21/23 08:54 Dose: 5 mg Divalproex Sodium (Divalproex Sodium Sprinkles 125 Mg ) 250 mg PO TID [facility] Last Admin: 12/21/23 08:54 Dose: 250 mg Emtricitabine/Tenofovir (Emtricitabin/Tenofovir 200/300 Tablet) 1 tab PO DAILY [facility] Last Admin: 12/21/23 08:54 Dose: 1 tab Haloperidol (Haloperidol 5 Mg Tablet) 5 mg PO BID [facility] Last Admin: 12/21/23 08:57 Dose: 5 mg Haloperidol Decanoate (Haloperidol Decanoate 50 Mg/Ml Vial) 100 mg IM Q28D [facility] Last Admin: 11/25/23 20:59 Dose: 100 mg Levetiracetam (Levetiracetam 500 Mg Tablet) 500 mg PO BID [facility] Last Admin: 12/21/23 08:54 Dose: 500 mg Magnesium Hydroxide (Milk Of Magnesia 30 Ml Oral.Susp) 30 ml PO DAILY PRN PRN Reason: Constipation Mirtazapine (Mirtazapine 15 Mg Tablet) 15 mg PO BEDTIME [facility] Last Admin: 12/20/23 20:44 Dose: 15 mg Multivitamins/Vitamin C (Multivitamin Tablet) 1 tab PO BEDTIME [facility] Last Admin: 12/20/23 20:43 Dose: 1 tab Nicotine Polacrilex (Nicotine Polacrilex 2 Mg Gum) 4 mg BUCCAL Q2H PRN PRN Reason: Nicotine Cravings Olanzapine (Olanzapine 5 Mg Tablet) 5 mg PO BID@0800,1500 [facility] Last Admin: 12/21/23 08:54 Dose: 5 mg Olanzapine (Olanzapine 10 Mg Vial) 10 mg IM BEDTIME PRN PRN Reason: if refuses bedtime PO zyprexa Olanzapine (Olanzapine 10 Mg Vial) 5 mg IM BID@0800,1500 PRN PRN Reason: if refuses 0800/1500 PO zyprexa Last Admin: 10/13/23 14:58 Dose: 5 mg Olanzapine (Olanzapine 10 Mg Tablet) 20 mg PO BEDTIME [facility] Last Admin: 12/20/23 20:43 Dose: 20 mg Polyethylene Glycol (Polyethylene Glycol 3350 17 Gm Powd.Pack) 17 gm PO DAILY PRN PRN Reason: Constipation Rilpivirine (Rilpivirine Hcl 25 Mg Tablet) 25 mg PO DAILY [facility] Last Admin: 12/21/23 08:55 Dose: 25 mg Thiamine HCl (Thiamine Hcl 100 Mg Tablet) 100 mg PO DAILY [facility] Last Admin: 12/21/23 08:54 Dose: 100 mg Trazodone HCl (Trazodone Hcl 50 Mg Tablet) 50 mg PO BEDTIME MRX1 PRN PRN Reason: Insomnia Last Admin: 12/12/23 21:22 Dose: 50 mg Allergies Allergies Allergy/AdvReac Type Severity Reaction Status Date / Time No Known Allergies Allergy Unverified 01/28/20 16:07 [No Known Allergies*] Assessment & Plan Assessment & Plan (1) Schizoaffective disorder, bipolar type: Status: Acute Code(s): F25.0 - Schizoaffective disorder, bipolar type Assessment and Plan: 11/01 mildly up - positive mood=- but less irritable than in past visits 11/02 CTP (2) Dementia: Status: Acute Code(s): F03.90 - Unspecified dementia, unspecified severity, without behavioral disturbance, psychotic disturbance, mood disturbance, and anxiety Assessment and Plan: 11/01 ongoing dementia continue with reorientation and distraction prn - (3) Noncompliance: Status: Acute Code(s): Z91.199 - Patient's noncompliance with other medical treatment and regimen due to unspecified reason Assessment and Plan: seems to be taking medication currently - watches nurse crush them and put in ice cream Plan The patient is an elderly male with a past history of schizoaffective disorder, dementia, HIV and other medical problems, chronically mentally ill resident of assisted living facility referred to this facility after he became non compliant with medications with daniella and psychosis. The patient was assessed by crisis and transferring to this facility for psychiatric stabilization. At the moment of the interview the patient was able to contract for safety. Plan 1. Gather collateral information. 2. Continue with regular medications, we are not going to change his Depakote, olanzapine and Haldol Decanoate. 3. Reassessment with results. 4. 15 minutes checks since the patient is able to contract for safety. 5. Change Zyprexa to Zydis to avoid cheeking on October 02. 6. IM zyprexa ordered 10 mg t.i.d. p.r.n. refusal of p.o. as per court order. Total dose up to 30 mg a day. 7. Zyprexa increased up to 15 mg p.o. q.h.s. to target daniella and psychosis. Started on October 15. Zyprexa was increased up to 20 mg p.o. q.h.s. on October 17. 8. Increase Haldol up to 5 mg p.o. t.i.d. on October 22 and keep Haldol Decanoate as per court order. On December 18 we lowered Haldol to 5 mg p.o. b.i.d. 9. Medical certificate issued. 10. Blood work f on November 18 without no changes. 11. Guardianship hearing for December 02 12. Waiting for placement Reason for continued inpatient stay Substantial Risk for: inability to function, rapid decompensation and med/psych decompensation Time Spent With Patient Time: Total time managing care of this patient today __20__ minutes.
[2023-12-21 20:00] VITALS: BP 118/70; PULSE 89; RESP 16; TEMP 36.2; O2SAT 95
[2023-12-21] MEDS: OLANZapine 10 MG TABLET 20 MG PO (21:24)
[2023-12-21] MEDS: Mirtazapine 15 MG TABLET PO (21:24)
[2023-12-21] MEDS: Multivitamin TABLET 1 TAB PO (21:24)
[2023-12-22 08:07] VITALS: BP 130/82; PULSE 85; RESP 18; TEMP 36.3; O2SAT 99
[2023-12-22] MEDS: amLODIPine Besylate 5 MG TABLET PO (08:11)
[2023-12-22] MEDS: Rilpivirine HCL 25 MG TABLET PO (08:12)
[2023-12-22] MEDS: levETIRAcetam 500 MG TABLET PO ×2 (08:12→19:55)
[2023-12-22] MEDS: OLANZapine 5 MG TABLET PO ×2 (08:12→16:11)
[2023-12-22] MEDS: Divalproex Sodium Sprinkles 125 MG CAP.DR.SPR 250 MG PO ×3 (08:12→19:55)
[2023-12-22] MEDS: HaloperidoL 5 MG TABLET PO ×2 (08:12→19:55)
[2023-12-22] MEDS: Thiamine HCL 100 MG TABLET PO (08:12)
[2023-12-22] MEDS: Emtricitabin/Tenofovir 200/300 TABLET 1 TAB PO (08:12)
--- NOTE | 2023-12-22 08:36 | P.PNPSI_ITS ---
Subjective Subjective Date of Service: 12/22/23 Reason For Visit: F32.9 Subjective Notes: Conditional Voluntary Guardianship: Yes Interim History: The nursing staff reported the patient had been compliant with medications he slept well, no changes in his mental status. On interview the patient denies new symptoms, waiting for placement. Mental Status Exam Mental Status Exam Patient Appearance: Appropriate Patient Orientation: Person and Situation Level of Consciousness: Awake and Appropriate Patient Behavior: Guarded and Passive Mood Description: Calm Affect Description: Constricted Patient Cognition Impaired: Yes Ability to Follow Directions: Good Speech Pattern: Clear Hallucinations: None Delusions: Not Present Thought Process: Distracted and Slowed Thinking Thought Content: positive for [place] and positive for Poverty of Content Judgement: Poor Diagnostics Vital Signs (24Hr): Vital Signs - 24 hr 12/21/23 20:00 12/22/23 08:07 Temperature 97.1 F 97.4 F Pulse Rate 89 85 Respiratory Rate 16 18 Blood Pressure 118/70 130/82 Pulse Oximetry 95 99 Oxygen Delivery Method Room Air Room Air BMI result Body Mass Index 19.0 Labs 11/19/23 08:03 11/19/23 08:03 Medications Medications Current Medications Acetaminophen (Acetaminophen 325 Mg Tablet) 650 mg PO Q6H PRN PRN Reason: Pain (Scale Score 1-3) Last Admin: 12/19/23 20:10 Dose: 650 mg Al Hydroxide/Mg Hydroxide (Magnesium Hydrox/Alum Hydrox 30 Ml Oral.Susp) 30 ml PO Q6H PRN PRN Reason: Heartburn/Nausea Last Admin: 11/12/23 06:20 Dose: 30 ml Albuterol Sulfate (Albuterol Sulfate 90 Mcg 8 Gm Inhaler) 2 puff INHALE RQ4H PRN PRN Reason: Wheezing Amlodipine Besylate (Amlodipine Besylate 5 Mg Tablet) 5 mg PO DAILY [facility]; Protocol Last Admin: 12/22/23 08:11 Dose: 5 mg Divalproex Sodium (Divalproex Sodium Sprinkles 125 Mg ) 250 mg PO TID [facility] Last Admin: 12/22/23 08:12 Dose: 250 mg Emtricitabine/Tenofovir (Emtricitabin/Tenofovir 200/300 Tablet) 1 tab PO DAILY [facility] Last Admin: 12/22/23 08:12 Dose: 1 tab Haloperidol (Haloperidol 5 Mg Tablet) 5 mg PO BID [facility] Last Admin: 12/22/23 08:12 Dose: 5 mg Haloperidol Decanoate (Haloperidol Decanoate 50 Mg/Ml Vial) 100 mg IM Q28D [facility] Last Admin: 11/25/23 20:59 Dose: 100 mg Levetiracetam (Levetiracetam 500 Mg Tablet) 500 mg PO BID [facility] Last Admin: 12/22/23 08:12 Dose: 500 mg Magnesium Hydroxide (Milk Of Magnesia 30 Ml Oral.Susp) 30 ml PO DAILY PRN PRN Reason: Constipation Mirtazapine (Mirtazapine 15 Mg Tablet) 15 mg PO BEDTIME [facility] Last Admin: 12/21/23 21:24 Dose: 15 mg Multivitamins/Vitamin C (Multivitamin Tablet) 1 tab PO BEDTIME [facility] Last Admin: 12/21/23 21:24 Dose: 1 tab Nicotine Polacrilex (Nicotine Polacrilex 2 Mg Gum) 4 mg BUCCAL Q2H PRN PRN Reason: Nicotine Cravings Olanzapine (Olanzapine 5 Mg Tablet) 5 mg PO BID@0800,1500 [facility] Last Admin: 12/22/23 08:12 Dose: 5 mg Olanzapine (Olanzapine 10 Mg Vial) 10 mg IM BEDTIME PRN PRN Reason: if refuses bedtime PO zyprexa Olanzapine (Olanzapine 10 Mg Vial) 5 mg IM BID@0800,1500 PRN PRN Reason: if refuses 0800/1500 PO zyprexa Last Admin: 10/13/23 14:58 Dose: 5 mg Olanzapine (Olanzapine 10 Mg Tablet) 20 mg PO BEDTIME [facility] Last Admin: 12/21/23 21:24 Dose: 20 mg Polyethylene Glycol (Polyethylene Glycol 3350 17 Gm Powd.Pack) 17 gm PO DAILY PRN PRN Reason: Constipation Rilpivirine (Rilpivirine Hcl 25 Mg Tablet) 25 mg PO DAILY [facility] Last Admin: 12/22/23 08:12 Dose: 25 mg Thiamine HCl (Thiamine Hcl 100 Mg Tablet) 100 mg PO DAILY [facility] Last Admin: 12/22/23 08:12 Dose: 100 mg Trazodone HCl (Trazodone Hcl 50 Mg Tablet) 50 mg PO BEDTIME MRX1 PRN PRN Reason: Insomnia Last Admin: 12/12/23 21:22 Dose: 50 mg Allergies Allergies Allergy/AdvReac Type Severity Reaction Status Date / Time No Known Allergies Allergy Unverified 01/28/20 16:07 [No Known Allergies*] Assessment & Plan Assessment & Plan (1) Schizoaffective disorder, bipolar type: Status: Acute Code(s): F25.0 - Schizoaffective disorder, bipolar type Assessment and Plan: 11/01 mildly up - positive mood=- but less irritable than in past visits 11/02 CTP (2) Dementia: Status: Acute Code(s): F03.90 - Unspecified dementia, unspecified severity, without behavioral disturbance, psychotic disturbance, mood disturbance, and anxiety Assessment and Plan: 11/01 ongoing dementia continue with reorientation and distraction prn - (3) Noncompliance: Status: Acute Code(s): Z91.199 - Patient's noncompliance with other medical treatment and regimen due to unspecified reason Assessment and Plan: seems to be taking medication currently - watches nurse crush them and put in ice cream Plan The patient is an elderly male with a past history of schizoaffective disorder, dementia, HIV and other medical problems, chronically mentally ill resident of assisted living facility referred to this facility after he became non compliant with medications with daniella and psychosis. The patient was assessed by crisis and transferring to this facility for psychiatric stabilization. At the moment of the interview the patient was able to contract for safety. Plan 1. Gather collateral information. 2. Continue with regular medications, we are not going to change his Depakote, olanzapine and Haldol Decanoate. 3. Reassessment with results. 4. 15 minutes checks since the patient is able to contract for safety. 5. Change Zyprexa to Zydis to avoid cheeking on October 02. 6. IM zyprexa ordered 10 mg t.i.d. p.r.n. refusal of p.o. as per court order. Total dose up to 30 mg a day. 7. Zyprexa increased up to 15 mg p.o. q.h.s. to target daniella and psychosis. Started on October 15. Zyprexa was increased up to 20 mg p.o. q.h.s. on October 17. 8. Increase Haldol up to 5 mg p.o. t.i.d. on October 22 and keep Haldol Decanoate as per court order. On December 18 we lowered Haldol to 5 mg p.o. b.i.d. 9. Medical certificate issued. 10. Blood work f on November 18 without no changes. 11. Guardianship hearing for December 02 12. Waiting for placement Reason for continued inpatient stay Substantial Risk for: inability to function, rapid decompensation and med/psych decompensation Time Spent With Patient Time: Total time managing care of this patient today __20__ minutes.
[2023-12-22] MEDS: Multivitamin TABLET 1 TAB PO (19:54)
[2023-12-22] MEDS: Mirtazapine 15 MG TABLET PO (19:55)
[2023-12-22] MEDS: traZODone HCL 50 MG TABLET PO (19:55)
[2023-12-22] MEDS: OLANZapine 10 MG TABLET 20 MG PO (19:55)
[2023-12-22 20:00] VITALS: BP 115/69; PULSE 98; RESP 18; TEMP 36.4; O2SAT 95
[2023-12-23 08:00] VITALS: BP 108/77; PULSE 94; RESP 16; TEMP 36.9; O2SAT 94
[2023-12-23] MEDS: Thiamine HCL 100 MG TABLET PO (08:55)
[2023-12-23] MEDS: Emtricitabin/Tenofovir 200/300 TABLET 1 TAB PO (08:55)
[2023-12-23] MEDS: Rilpivirine HCL 25 MG TABLET PO (08:57)
[2023-12-23] MEDS: OLANZapine 5 MG TABLET PO ×2 (08:57→14:44)
[2023-12-23] MEDS: HaloperidoL 5 MG TABLET PO ×2 (08:57→20:33)
[2023-12-23] MEDS: levETIRAcetam 500 MG TABLET PO ×2 (08:58→20:26)
[2023-12-23] MEDS: Divalproex Sodium Sprinkles 125 MG CAP.DR.SPR 250 MG PO ×3 (08:58→20:27)
[2023-12-23 09:01] VITALS: BP 108/77
[2023-12-23] MEDS: amLODIPine Besylate 5 MG TABLET PO (09:01)
--- NOTE | 2023-12-23 14:21 | P.PNPSI_ITS ---
Subjective Subjective Date of Service: 12/23/23 Reason For Visit: F32.9 Subjective Notes: Conditional Voluntary Interim History: The nursing staff reported the patient had been at baseline. He does not look over-sedated even though that we have been lowering the Haldol. On interview the patient denies new symptoms, waiting for placement. The social work faculty member is trying to contact the guardian for referrals. Mental Status Exam Mental Status Exam Patient Appearance: Appropriate Patient Orientation: Person and Situation Level of Consciousness: Awake and Appropriate Patient Behavior: Appropriate Mood Description: Calm Affect Description: Constricted Patient Cognition Impaired: Yes Ability to Follow Directions: Good Speech Pattern: Clear Hallucinations: None Delusions: Not Present Thought Process: Distracted Thought Content: positive for [place] and positive for Poverty of Content Judgement: Fair Diagnostics Vital Signs (24Hr): Vital Signs - 24 hr 12/22/23 20:00 12/23/23 08:00 12/23/23 09:01 Temperature 97.6 F 98.4 F Pulse Rate 98 94 Respiratory Rate 18 16 Blood Pressure 115/69 108/77 108/77 Pulse Oximetry 95 94 Oxygen Delivery Method Room Air Room Air BMI result Body Mass Index 19.0 Labs 11/19/23 08:03 11/19/23 08:03 Medications Medications Current Medications Acetaminophen (Acetaminophen 325 Mg Tablet) 650 mg PO Q6H PRN PRN Reason: Pain (Scale Score 1-3) Last Admin: 12/19/23 20:10 Dose: 650 mg Al Hydroxide/Mg Hydroxide (Magnesium Hydrox/Alum Hydrox 30 Ml Oral.Susp) 30 ml PO Q6H PRN PRN Reason: Heartburn/Nausea Last Admin: 11/12/23 06:20 Dose: 30 ml Albuterol Sulfate (Albuterol Sulfate 90 Mcg 8 Gm Inhaler) 2 puff INHALE RQ4H PRN PRN Reason: Wheezing Amlodipine Besylate (Amlodipine Besylate 5 Mg Tablet) 5 mg PO DAILY [facility]; Protocol Last Admin: 12/23/23 09:01 Dose: 5 mg Divalproex Sodium (Divalproex Sodium Sprinkles 125 Mg ) 250 mg PO TID [facility] Last Admin: 12/23/23 08:58 Dose: 250 mg Emtricitabine/Tenofovir (Emtricitabin/Tenofovir 200/300 Tablet) 1 tab PO DAILY [facility] Last Admin: 12/23/23 08:55 Dose: 1 tab Haloperidol (Haloperidol 5 Mg Tablet) 5 mg PO BID [facility] Last Admin: 12/23/23 08:57 Dose: 5 mg Haloperidol Decanoate (Haloperidol Decanoate 50 Mg/Ml Vial) 100 mg IM Q28D [facility] Last Admin: 11/25/23 20:59 Dose: 100 mg Levetiracetam (Levetiracetam 500 Mg Tablet) 500 mg PO BID [facility] Last Admin: 12/23/23 08:58 Dose: 500 mg Magnesium Hydroxide (Milk Of Magnesia 30 Ml Oral.Susp) 30 ml PO DAILY PRN PRN Reason: Constipation Mirtazapine (Mirtazapine 15 Mg Tablet) 15 mg PO BEDTIME [facility] Last Admin: 12/22/23 19:55 Dose: 15 mg Multivitamins/Vitamin C (Multivitamin Tablet) 1 tab PO BEDTIME [facility] Last Admin: 12/22/23 19:54 Dose: 1 tab Nicotine Polacrilex (Nicotine Polacrilex 2 Mg Gum) 4 mg BUCCAL Q2H PRN PRN Reason: Nicotine Cravings Olanzapine (Olanzapine 5 Mg Tablet) 5 mg PO BID@0800,1500 [facility] Last Admin: 12/23/23 08:57 Dose: 5 mg Olanzapine (Olanzapine 10 Mg Vial) 10 mg IM BEDTIME PRN PRN Reason: if refuses bedtime PO zyprexa Olanzapine (Olanzapine 10 Mg Vial) 5 mg IM BID@0800,1500 PRN PRN Reason: if refuses 0800/1500 PO zyprexa Last Admin: 10/13/23 14:58 Dose: 5 mg Olanzapine (Olanzapine 10 Mg Tablet) 20 mg PO BEDTIME [facility] Last Admin: 12/22/23 19:55 Dose: 20 mg Polyethylene Glycol (Polyethylene Glycol 3350 17 Gm Powd.Pack) 17 gm PO DAILY PRN PRN Reason: Constipation Rilpivirine (Rilpivirine Hcl 25 Mg Tablet) 25 mg PO DAILY [facility] Last Admin: 12/23/23 08:57 Dose: 25 mg Thiamine HCl (Thiamine Hcl 100 Mg Tablet) 100 mg PO DAILY [facility] Last Admin: 12/23/23 08:55 Dose: 100 mg Trazodone HCl (Trazodone Hcl 50 Mg Tablet) 50 mg PO BEDTIME MRX1 PRN PRN Reason: Insomnia Last Admin: 12/22/23 19:55 Dose: 50 mg Allergies Allergies Allergy/AdvReac Type Severity Reaction Status Date / Time No Known Allergies Allergy Unverified 01/28/20 16:07 [No Known Allergies*] Assessment & Plan Assessment & Plan (1) Schizoaffective disorder, bipolar type: Status: Acute Code(s): F25.0 - Schizoaffective disorder, bipolar type Assessment and Plan: 11/01 mildly up - positive mood=- but less irritable than in past visits 11/02 CTP (2) Dementia: Status: Acute Code(s): F03.90 - Unspecified dementia, unspecified severity, without behavioral disturbance, psychotic disturbance, mood disturbance, and anxiety Assessment and Plan: 11/01 ongoing dementia continue with reorientation and distraction prn - (3) Noncompliance: Status: Acute Code(s): Z91.199 - Patient's noncompliance with other medical treatment and regimen due to unspecified reason Assessment and Plan: seems to be taking medication currently - watches nurse crush them and put in ice cream Plan The patient is an elderly male with a past history of schizoaffective disorder, dementia, HIV and other medical problems, chronically mentally ill resident of assisted living facility referred to this facility after he became non compliant with medications with daniella and psychosis. The patient was assessed by crisis and transferring to this facility for psychiatric stabilization. At the moment of the interview the patient was able to contract for safety. Plan 1. Gather collateral information. 2. Continue with regular medications, we are not going to change his Depakote, olanzapine and Haldol Decanoate. 3. Reassessment with results. 4. 15 minutes checks since the patient is able to contract for safety. 5. Change Zyprexa to Zydis to avoid cheeking on October 02. 6. IM zyprexa ordered 10 mg t.i.d. p.r.n. refusal of p.o. as per court order. Total dose up to 30 mg a day. 7. Zyprexa increased up to 15 mg p.o. q.h.s. to target daniella and psychosis. Started on October 15. Zyprexa was increased up to 20 mg p.o. q.h.s. on October 17. 8. Increase Haldol up to 5 mg p.o. t.i.d. on October 22 and keep Haldol Decanoate as per court order. On December 18 we lowered Haldol to 5 mg p.o. b.i.d. 9. Medical certificate issued. 10. Blood work f on November 18 without no changes. 11. Guardianship hearing for December 02 12. Waiting for placement Reason for continued inpatient stay Substantial Risk for: inability to function, rapid decompensation and med/psych decompensation Time Spent With Patient Time: Total time managing care of this patient today __20__ minutes.
[2023-12-23 20:00] VITALS: BP 102/67; PULSE 79; RESP 16; TEMP 36.1; O2SAT 94
[2023-12-23] MEDS: OLANZapine 10 MG TABLET 20 MG PO (20:26)
[2023-12-23] MEDS: Mirtazapine 15 MG TABLET PO (20:27)
[2023-12-23] MEDS: Multivitamin TABLET 1 TAB PO (20:27)
[2023-12-23] MEDS: Haloperidol Decanoate 50 MG/ML VIAL 100 MG IM (21:14)
[2023-12-24 08:00] VITALS: BP 119/83; PULSE 82; RESP 20; O2SAT 98
[2023-12-24] MEDS: levETIRAcetam 500 MG TABLET PO ×2 (08:26→21:05)
[2023-12-24] MEDS: Emtricitabin/Tenofovir 200/300 TABLET 1 TAB PO (08:26)
[2023-12-24] MEDS: OLANZapine 5 MG TABLET PO ×2 (08:27→14:21)
[2023-12-24] MEDS: HaloperidoL 5 MG TABLET PO ×2 (08:27→21:05)
[2023-12-24] MEDS: Divalproex Sodium Sprinkles 125 MG CAP.DR.SPR 250 MG PO ×3 (08:27→21:05)
[2023-12-24] MEDS: Thiamine HCL 100 MG TABLET PO (08:28)
[2023-12-24] MEDS: Rilpivirine HCL 25 MG TABLET PO (08:29)
[2023-12-24] MEDS: amLODIPine Besylate 5 MG TABLET PO (08:29)
--- NOTE | 2023-12-24 13:51 | P.PNPSI_ITS ---
Subjective Subjective Date of Service: 12/24/23 Reason For Visit: F32.9 Subjective Notes: Conditional Voluntary Interim History: The nursing staff reported the patient had been compliant with treatment no changes in his mental status. On interview the patient denies new symptoms, waiting for placement. Mental Status Exam Mental Status Exam Patient Appearance: Appropriate Patient Orientation: Person and Situation Level of Consciousness: Awake and Appropriate Patient Behavior: Guarded and Passive Mood Description: Withdrawn Affect Description: Constricted Patient Cognition Impaired: Yes Ability to Follow Directions: Good Speech Pattern: Clear Hallucinations: None Delusions: Ideas of Reference Thought Process: Distracted and Slowed Thinking Thought Content: positive for [place] and positive for Poverty of Content Judgement: Fair Diagnostics Vital Signs (24Hr): Vital Signs - 24 hr 12/23/23 20:00 12/24/23 08:00 Temperature 97 F Pulse Rate 79 82 Respiratory Rate 16 20 Blood Pressure 102/67 119/83 Pulse Oximetry 94 98 Oxygen Delivery Method Room Air BMI result Body Mass Index 19.0 Labs 11/19/23 08:03 11/19/23 08:03 Medications Medications Current Medications Acetaminophen (Acetaminophen 325 Mg Tablet) 650 mg PO Q6H PRN PRN Reason: Pain (Scale Score 1-3) Last Admin: 12/19/23 20:10 Dose: 650 mg Al Hydroxide/Mg Hydroxide (Magnesium Hydrox/Alum Hydrox 30 Ml Oral.Susp) 30 ml PO Q6H PRN PRN Reason: Heartburn/Nausea Last Admin: 11/12/23 06:20 Dose: 30 ml Albuterol Sulfate (Albuterol Sulfate 90 Mcg 8 Gm Inhaler) 2 puff INHALE RQ4H PRN PRN Reason: Wheezing Amlodipine Besylate (Amlodipine Besylate 5 Mg Tablet) 5 mg PO DAILY [facility]; Protocol Last Admin: 12/24/23 08:29 Dose: 5 mg Divalproex Sodium (Divalproex Sodium Sprinkles 125 Mg ) 250 mg PO TID [facility] Last Admin: 12/24/23 08:27 Dose: 250 mg Emtricitabine/Tenofovir (Emtricitabin/Tenofovir 200/300 Tablet) 1 tab PO DAILY [facility] Last Admin: 12/24/23 08:26 Dose: 1 tab Haloperidol (Haloperidol 5 Mg Tablet) 5 mg PO BID [facility] Last Admin: 12/24/23 08:27 Dose: 5 mg Haloperidol Decanoate (Haloperidol Decanoate 50 Mg/Ml Vial) 100 mg IM Q28D [facility] Last Admin: 12/23/23 21:14 Dose: 100 mg Levetiracetam (Levetiracetam 500 Mg Tablet) 500 mg PO BID [facility] Last Admin: 12/24/23 08:26 Dose: 500 mg Magnesium Hydroxide (Milk Of Magnesia 30 Ml Oral.Susp) 30 ml PO DAILY PRN PRN Reason: Constipation Mirtazapine (Mirtazapine 15 Mg Tablet) 15 mg PO BEDTIME [facility] Last Admin: 12/23/23 20:27 Dose: 15 mg Multivitamins/Vitamin C (Multivitamin Tablet) 1 tab PO BEDTIME [facility] Last Admin: 12/23/23 20:27 Dose: 1 tab Nicotine Polacrilex (Nicotine Polacrilex 2 Mg Gum) 4 mg BUCCAL Q2H PRN PRN Reason: Nicotine Cravings Olanzapine (Olanzapine 5 Mg Tablet) 5 mg PO BID@0800,1500 [facility] Last Admin: 12/24/23 08:27 Dose: 5 mg Olanzapine (Olanzapine 10 Mg Vial) 10 mg IM BEDTIME PRN PRN Reason: if refuses bedtime PO zyprexa Olanzapine (Olanzapine 10 Mg Vial) 5 mg IM BID@0800,1500 PRN PRN Reason: if refuses 0800/1500 PO zyprexa Last Admin: 10/13/23 14:58 Dose: 5 mg Olanzapine (Olanzapine 10 Mg Tablet) 20 mg PO BEDTIME [facility] Last Admin: 12/23/23 20:26 Dose: 20 mg Polyethylene Glycol (Polyethylene Glycol 3350 17 Gm Powd.Pack) 17 gm PO DAILY PRN PRN Reason: Constipation Rilpivirine (Rilpivirine Hcl 25 Mg Tablet) 25 mg PO DAILY [facility] Last Admin: 12/24/23 08:29 Dose: 25 mg Thiamine HCl (Thiamine Hcl 100 Mg Tablet) 100 mg PO DAILY [facility] Last Admin: 12/24/23 08:28 Dose: 100 mg Trazodone HCl (Trazodone Hcl 50 Mg Tablet) 50 mg PO BEDTIME MRX1 PRN PRN Reason: Insomnia Last Admin: 12/22/23 19:55 Dose: 50 mg Allergies Allergies Allergy/AdvReac Type Severity Reaction Status Date / Time No Known Allergies Allergy Unverified 01/28/20 16:07 [No Known Allergies*] Assessment & Plan Assessment & Plan (1) Schizoaffective disorder, bipolar type: Status: Acute Code(s): F25.0 - Schizoaffective disorder, bipolar type Assessment and Plan: 11/01 mildly up - positive mood=- but less irritable than in past visits 11/02 CTP (2) Dementia: Status: Acute Code(s): F03.90 - Unspecified dementia, unspecified severity, without behavioral disturbance, psychotic disturbance, mood disturbance, and anxiety Assessment and Plan: 11/01 ongoing dementia continue with reorientation and distraction prn - (3) Noncompliance: Status: Acute Code(s): Z91.199 - Patient's noncompliance with other medical treatment and regimen due to unspecified reason Assessment and Plan: seems to be taking medication currently - watches nurse crush them and put in ice cream Plan The patient is an elderly male with a past history of schizoaffective disorder, dementia, HIV and other medical problems, chronically mentally ill resident of assisted living facility referred to this facility after he became non compliant with medications with daniella and psychosis. The patient was assessed by crisis and transferring to this facility for psychiatric stabilization. At the moment of the interview the patient was able to contract for safety. Plan 1. Gather collateral information. 2. Continue with regular medications, we are not going to change his Depakote, olanzapine and Haldol Decanoate. 3. Reassessment with results. 4. 15 minutes checks since the patient is able to contract for safety. 5. Change Zyprexa to Zydis to avoid cheeking on October 02. 6. IM zyprexa ordered 10 mg t.i.d. p.r.n. refusal of p.o. as per court order. Total dose up to 30 mg a day. 7. Zyprexa increased up to 15 mg p.o. q.h.s. to target daniella and psychosis. Started on October 15. Zyprexa was increased up to 20 mg p.o. q.h.s. on October 17. 8. Increase Haldol up to 5 mg p.o. t.i.d. on October 22 and keep Haldol Decanoate as per court order. On December 18 we lowered Haldol to 5 mg p.o. b.i.d. 9. Medical certificate issued. 10. Blood work f on Anju 9 without no changes. 11. Guardianship hearing for December 02. Waiting for placement Reason for continued inpatient stay Substantial Risk for: inability to function, rapid decompensation and med/psych decompensation Time Spent With Patient Time: Total time managing care of this patient today __20__ minutes.
[2023-12-24 20:00] VITALS: BP 92/62; PULSE 89; RESP 16; TEMP 36.4; O2SAT 92
[2023-12-24] MEDS: Multivitamin TABLET 1 TAB PO (21:05)
[2023-12-24] MEDS: Mirtazapine 15 MG TABLET PO (21:05)
[2023-12-24] MEDS: OLANZapine 10 MG TABLET 20 MG PO (21:05)
[2023-12-25 07:54] VITALS: BP 125/87; PULSE 83; RESP 17; TEMP 36.3; O2SAT 97
[2023-12-25] MEDS: Divalproex Sodium Sprinkles 125 MG CAP.DR.SPR 250 MG PO ×3 (07:56→20:42)
[2023-12-25] MEDS: Thiamine HCL 100 MG TABLET PO (07:57)
[2023-12-25] MEDS: amLODIPine Besylate 5 MG TABLET PO (08:00)
[2023-12-25] MEDS: Rilpivirine HCL 25 MG TABLET PO (08:00)
[2023-12-25] MEDS: HaloperidoL 5 MG TABLET PO ×2 (08:00→20:41)
[2023-12-25] MEDS: OLANZapine 5 MG TABLET PO ×2 (08:01→15:46)
[2023-12-25] MEDS: levETIRAcetam 500 MG TABLET PO ×2 (08:02→20:42)
[2023-12-25] MEDS: Emtricitabin/Tenofovir 200/300 TABLET 1 TAB PO (08:04)
--- NOTE | 2023-12-25 13:28 | MHC.CLN ---
F/U DIET=REGULAR. ENSURE TID TO INCREASE KCALS/NUTRITION (1050 KCALS, 60 G PROTEIN). CONTINUES WITH USUALLY GOOD INTAKE, 100% MOST MEALS. FAVORABLE SIGNIFICANT WEIGHT GAIN SINCE ADMISSION, +14.8%. FOLLOW FOR INTAKE OF MEALS AND SUPPLEMENT. RD TO FOLLOW UP WEEKLY.
--- NOTE | 2023-12-25 14:59 | HO.PSYCHPN ---
Subjective Subjective Date of Service: 12/25/23 Reason For Visit: F32.9 Subjective Notes: Conditional Voluntary Interim History: The nursing staff reported no changes in his mental status cooperative and pleasant fully compliant with treatment. The transition social worker reported that her [facility] application was not renew and at this moment there is the financial barrier for discharge. On interview the patient denies new symptoms, waiting for placement. Mental Status Exam Mental Status Exam Patient Appearance: Appropriate Patient Orientation: Person and Situation Level of Consciousness: Awake and Appropriate Patient Behavior: Guarded and Passive Mood Description: Withdrawn Affect Description: Constricted Patient Cognition Impaired: Yes Ability to Follow Directions: Good Speech Pattern: Clear Hallucinations: None Delusions: Paranoid Ideation and Ideas of Reference Thought Process: Distracted and Slowed Thinking Thought Content: positive for Circumstantial Judgement: Fair Diagnostics Vital Signs (24Hr): Vital Signs - 24 hr 12/24/23 20:00 12/25/23 07:54 Temperature 97.6 F 97.3 F Pulse Rate 89 83 Respiratory Rate 16 17 Blood Pressure 92/62 125/87 Pulse Oximetry 92 97 Oxygen Delivery Method Room Air Room Air BMI result Body Mass Index 19.0 Labs 11/19/23 08:03 11/19/23 08:03 Medications Medications Current Medications Acetaminophen (Acetaminophen 325 Mg Tablet) 650 mg PO Q6H PRN PRN Reason: Pain (Scale Score 1-3) Last Admin: 12/19/23 20:10 Dose: 650 mg Al Hydroxide/Mg Hydroxide (Magnesium Hydrox/Alum Hydrox 30 Ml Oral.Susp) 30 ml PO Q6H PRN PRN Reason: Heartburn/Nausea Last Admin: 11/12/23 06:20 Dose: 30 ml Albuterol Sulfate (Albuterol Sulfate 90 Mcg 8 Gm Inhaler) 2 puff INHALE RQ4H PRN PRN Reason: Wheezing Amlodipine Besylate (Amlodipine Besylate 5 Mg Tablet) 5 mg PO DAILY [facility]; Protocol Last Admin: 12/25/23 08:00 Dose: 5 mg Divalproex Sodium (Divalproex Sodium Sprinkles 125 Mg ) 250 mg PO TID [facility] Last Admin: 12/25/23 07:56 Dose: 250 mg Emtricitabine/Tenofovir (Emtricitabin/Tenofovir 200/300 Tablet) 1 tab PO DAILY [facility] Last Admin: 12/25/23 08:04 Dose: 1 tab Haloperidol (Haloperidol 5 Mg Tablet) 5 mg PO BID [facility] Last Admin: 12/25/23 08:00 Dose: 5 mg Haloperidol Decanoate (Haloperidol Decanoate 50 Mg/Ml Vial) 100 mg IM Q28D [facility] Last Admin: 12/23/23 21:14 Dose: 100 mg Levetiracetam (Levetiracetam 500 Mg Tablet) 500 mg PO BID [facility] Last Admin: 12/25/23 08:02 Dose: 500 mg Magnesium Hydroxide (Milk Of Magnesia 30 Ml Oral.Susp) 30 ml PO DAILY PRN PRN Reason: Constipation Mirtazapine (Mirtazapine 15 Mg Tablet) 15 mg PO BEDTIME [facility] Last Admin: 12/24/23 21:05 Dose: 15 mg Multivitamins/Vitamin C (Multivitamin Tablet) 1 tab PO BEDTIME [facility] Last Admin: 12/24/23 21:05 Dose: 1 tab Nicotine Polacrilex (Nicotine Polacrilex 2 Mg Gum) 4 mg BUCCAL Q2H PRN PRN Reason: Nicotine Cravings Olanzapine (Olanzapine 5 Mg Tablet) 5 mg PO BID@0800,1500 [facility] Last Admin: 12/25/23 08:01 Dose: 5 mg Olanzapine (Olanzapine 10 Mg Vial) 10 mg IM BEDTIME PRN PRN Reason: if refuses bedtime PO zyprexa Olanzapine (Olanzapine 10 Mg Vial) 5 mg IM BID@0800,1500 PRN PRN Reason: if refuses 0800/1500 PO zyprexa Last Admin: 10/13/23 14:58 Dose: 5 mg Olanzapine (Olanzapine 10 Mg Tablet) 20 mg PO BEDTIME [facility] Last Admin: 12/24/23 21:05 Dose: 20 mg Polyethylene Glycol (Polyethylene Glycol 3350 17 Gm Powd.Pack) 17 gm PO DAILY PRN PRN Reason: Constipation Rilpivirine (Rilpivirine Hcl 25 Mg Tablet) 25 mg PO DAILY [facility] Last Admin: 12/25/23 08:00 Dose: 25 mg Thiamine HCl (Thiamine Hcl 100 Mg Tablet) 100 mg PO DAILY [facility] Last Admin: 12/25/23 07:57 Dose: 100 mg Trazodone HCl (Trazodone Hcl 50 Mg Tablet) 50 mg PO BEDTIME MRX1 PRN PRN Reason: Insomnia Last Admin: 12/22/23 19:55 Dose: 50 mg Allergies Allergies Allergy/AdvReac Type Severity Reaction Status Date / Time No Known Allergies Allergy Unverified 01/28/20 16:07 [No Known Allergies*] Assessment & Plan Assessment & Plan (1) Schizoaffective disorder, bipolar type: Status: Acute Code(s): F25.0 - Schizoaffective disorder, bipolar type Assessment and Plan: 11/01 mildly up - positive mood=- but less irritable than in past visits 11/02 CTP (2) Dementia: Status: Acute Code(s): F03.90 - Unspecified dementia, unspecified severity, without behavioral disturbance, psychotic disturbance, mood disturbance, and anxiety Assessment and Plan: 11/01 ongoing dementia continue with reorientation and distraction prn - (3) Noncompliance: Status: Acute Code(s): Z91.199 - Patient's noncompliance with other medical treatment and regimen due to unspecified reason Assessment and Plan: seems to be taking medication currently - watches nurse crush them and put in ice cream Plan The patient is an elderly male with a past history of schizoaffective disorder, dementia, HIV and other medical problems, chronically mentally ill resident of assisted living facility referred to this facility after he became non compliant with medications with daniella and psychosis. The patient was assessed by crisis and transferring to this facility for psychiatric stabilization. At the moment of the interview the patient was able to contract for safety. Plan 1. Gather collateral information. 2. Continue with regular medications, we are not going to change his Depakote, olanzapine and Haldol Decanoate. 3. Reassessment with results. 4. 15 minutes checks since the patient is able to contract for safety. 5. Change Zyprexa to Zydis to avoid cheeking on October 02. 6. IM zyprexa ordered 10 mg t.i.d. p.r.n. refusal of p.o. as per court order. Total dose up to 30 mg a day. 7. Zyprexa increased up to 15 mg p.o. q.h.s. to target daniella and psychosis. Started on October 15. Zyprexa was increased up to 20 mg p.o. q.h.s. on October 17. 8. Increase Haldol up to 5 mg p.o. t.i.d. on October 22 and keep Haldol Decanoate as per court order. On [place] 8 we lowered Haldol to 5 mg p.o. b.i.d. 9. Medical certificate issued. 10. Blood work f on November 18 without no changes. 11. Guardianship hearing for December 02 12. Waiting for placement Reason for continued inpatient stay Substantial Risk for: inability to function, rapid decompensation and med/psych decompensation Time Spent With Patient Time: Total time managing care of this patient today _20___ minutes.
[2023-12-25 20:00] VITALS: BP 105/73; PULSE 95; RESP 16; TEMP 36.8; O2SAT 95
[2023-12-25] MEDS: Multivitamin TABLET 1 TAB PO (20:41)
[2023-12-25] MEDS: Mirtazapine 15 MG TABLET PO (20:41)
[2023-12-25] MEDS: OLANZapine 10 MG TABLET 20 MG PO (20:42)
[2023-12-26 07:00] VITALS: BMI 19.2
[2023-12-26 08:00] VITALS: BP 134/84; PULSE 98; RESP 17; TEMP 36.1; O2SAT 95
[2023-12-26] MEDS: Rilpivirine HCL 25 MG TABLET PO (09:09)
[2023-12-26] MEDS: amLODIPine Besylate 5 MG TABLET PO (09:09)
[2023-12-26] MEDS: HaloperidoL 5 MG TABLET PO ×2 (09:09→21:03)
[2023-12-26] MEDS: Emtricitabin/Tenofovir 200/300 TABLET 1 TAB PO (09:09)
[2023-12-26] MEDS: OLANZapine 5 MG TABLET PO ×2 (09:09→15:22)
[2023-12-26] MEDS: Thiamine HCL 100 MG TABLET PO (09:09)
[2023-12-26] MEDS: levETIRAcetam 500 MG TABLET PO ×2 (09:09→21:03)
[2023-12-26] MEDS: Divalproex Sodium Sprinkles 125 MG CAP.DR.SPR 250 MG PO ×3 (09:10→21:02)
--- NOTE | 2023-12-26 11:28 | HO.PSYCHPN ---
Subjective Subjective Date of Service: 12/26/23 Reason For Visit: F32.9 Subjective Notes: Conditional Voluntary Interim History: The nursing staff reported no changes in his mental status he was seen in the common areas watching TV and slept 8 hours. The social work instructor reported the [facility] is in process right now. On interview the patient denies new symptoms, pleasant, cooperative waiting for placement. Mental Status Exam Mental Status Exam Patient Appearance: Appropriate Patient Orientation: Person and Situation Level of Consciousness: Awake and Appropriate Patient Behavior: Guarded and Passive Mood Description: Withdrawn Affect Description: Constricted Patient Cognition Impaired: Yes Ability to Follow Directions: Good Speech Pattern: Clear Hallucinations: None Delusions: Not Present Thought Process: Distracted and Slowed Thinking Thought Content: positive for [place] and positive for Circumstantial Judgement: Fair Diagnostics Vital Signs (24Hr): Vital Signs - 24 hr 12/25/23 20:00 12/26/23 08:00 Temperature 98.2 F 96.9 F Pulse Rate 95 98 Respiratory Rate 16 17 Blood Pressure 105/73 134/84 Pulse Oximetry 95 95 Oxygen Delivery Method Room Air Room Air BMI result Body Mass Index 19.2 Labs 11/19/23 08:03 11/19/23 08:03 Medications Medications Current Medications Acetaminophen (Acetaminophen 325 Mg Tablet) 650 mg PO Q6H PRN PRN Reason: Pain (Scale Score 1-3) Last Admin: 12/19/23 20:10 Dose: 650 mg Al Hydroxide/Mg Hydroxide (Magnesium Hydrox/Alum Hydrox 30 Ml Oral.Susp) 30 ml PO Q6H PRN PRN Reason: Heartburn/Nausea Last Admin: 11/12/23 06:20 Dose: 30 ml Albuterol Sulfate (Albuterol Sulfate 90 Mcg 8 Gm Inhaler) 2 puff INHALE RQ4H PRN PRN Reason: Wheezing Amlodipine Besylate (Amlodipine Besylate 5 Mg Tablet) 5 mg PO DAILY [facility]; Protocol Last Admin: 12/26/23 09:09 Dose: 5 mg Divalproex Sodium (Divalproex Sodium Sprinkles 125 Mg ) 250 mg PO TID [facility] Last Admin: 12/26/23 09:10 Dose: 250 mg Emtricitabine/Tenofovir (Emtricitabin/Tenofovir 200/300 Tablet) 1 tab PO DAILY [facility] Last Admin: 12/26/23 09:09 Dose: 1 tab Haloperidol (Haloperidol 5 Mg Tablet) 5 mg PO BID [facility] Last Admin: 12/26/23 09:09 Dose: 5 mg Haloperidol Decanoate (Haloperidol Decanoate 50 Mg/Ml Vial) 100 mg IM Q28D [facility] Last Admin: 12/23/23 21:14 Dose: 100 mg Levetiracetam (Levetiracetam 500 Mg Tablet) 500 mg PO BID [facility] Last Admin: 12/26/23 09:09 Dose: 500 mg Magnesium Hydroxide (Milk Of Magnesia 30 Ml Oral.Susp) 30 ml PO DAILY PRN PRN Reason: Constipation Mirtazapine (Mirtazapine 15 Mg Tablet) 15 mg PO BEDTIME [facility] Last Admin: 12/25/23 20:41 Dose: 15 mg Multivitamins/Vitamin C (Multivitamin Tablet) 1 tab PO BEDTIME [facility] Last Admin: 12/25/23 20:41 Dose: 1 tab Nicotine Polacrilex (Nicotine Polacrilex 2 Mg Gum) 4 mg BUCCAL Q2H PRN PRN Reason: Nicotine Cravings Olanzapine (Olanzapine 5 Mg Tablet) 5 mg PO BID@0800,1500 [facility] Last Admin: 12/26/23 09:09 Dose: 5 mg Olanzapine (Olanzapine 10 Mg Vial) 10 mg IM BEDTIME PRN PRN Reason: if refuses bedtime PO zyprexa Olanzapine (Olanzapine 10 Mg Vial) 5 mg IM BID@0800,1500 PRN PRN Reason: if refuses 0800/1500 PO zyprexa Last Admin: 10/13/23 14:58 Dose: 5 mg Olanzapine (Olanzapine 10 Mg Tablet) 20 mg PO BEDTIME [facility] Last Admin: 12/25/23 20:42 Dose: 20 mg Polyethylene Glycol (Polyethylene Glycol 3350 17 Gm Powd.Pack) 17 gm PO DAILY PRN PRN Reason: Constipation Rilpivirine (Rilpivirine Hcl 25 Mg Tablet) 25 mg PO DAILY [facility] Last Admin: 12/26/23 09:09 Dose: 25 mg Thiamine HCl (Thiamine Hcl 100 Mg Tablet) 100 mg PO DAILY [facility] Last Admin: 12/26/23 09:09 Dose: 100 mg Trazodone HCl (Trazodone Hcl 50 Mg Tablet) 50 mg PO BEDTIME MRX1 PRN PRN Reason: Insomnia Last Admin: 12/22/23 19:55 Dose: 50 mg Allergies Allergies Allergy/AdvReac Type Severity Reaction Status Date / Time No Known Allergies Allergy Unverified 01/28/20 16:07 [No Known Allergies*] Assessment & Plan Assessment & Plan (1) Schizoaffective disorder, bipolar type: Status: Acute Code(s): F25.0 - Schizoaffective disorder, bipolar type Assessment and Plan: 11/01 mildly up - positive mood=- but less irritable than in past visits 11/02 CTP (2) Dementia: Status: Acute Code(s): F03.90 - Unspecified dementia, unspecified severity, without behavioral disturbance, psychotic disturbance, mood disturbance, and anxiety Assessment and Plan: 11/01 ongoing dementia continue with reorientation and distraction prn - (3) Noncompliance: Status: Acute Code(s): Z91.199 - Patient's noncompliance with other medical treatment and regimen due to unspecified reason Assessment and Plan: seems to be taking medication currently - watches nurse crush them and put in ice cream Plan The patient is an elderly male with a past history of schizoaffective disorder, dementia, HIV and other medical problems, chronically mentally ill resident of assisted living facility referred to this facility after he became non compliant with medications with daniella and psychosis. The patient was assessed by crisis and transferring to this facility for psychiatric stabilization. At the moment of the interview the patient was able to contract for safety. Plan 1. Gather collateral information. 2. Continue with regular medications, we are not going to change his Depakote, olanzapine and Haldol Decanoate. 3. Reassessment with results. 4. 15 minutes checks since the patient is able to contract for safety. 5. Change Zyprexa to Zydis to avoid cheeking on October 02. 6. IM zyprexa ordered 10 mg t.i.d. p.r.n. refusal of p.o. as per court order. Total dose up to 30 mg a day. 7. Zyprexa increased up to 15 mg p.o. q.h.s. to target daniella and psychosis. Started on October 15. Zyprexa was increased up to 20 mg p.o. q.h.s. on October 17. 8. Increase Haldol up to 5 mg p.o. t.i.d. on October 22 and keep Haldol Decanoate as per court order. On December 18 we lowered Haldol to 5 mg p.o. b.i.d. 9. Medical certificate issued. 10. Blood work f on November 18 without no changes. 11. Guardianship hearing for December 02 12. Waiting for placement Reason for continued inpatient stay Substantial Risk for: inability to function, rapid decompensation and med/psych decompensation Time Spent With Patient Time: Total time managing care of this patient today __20__ minutes.
[2023-12-26 20:00] VITALS: BP 105/67; PULSE 87; RESP 16; TEMP 36.5; O2SAT 94
[2023-12-26] MEDS: OLANZapine 10 MG TABLET 20 MG PO (21:02)
[2023-12-26] MEDS: Mirtazapine 15 MG TABLET PO (21:03)
[2023-12-26] MEDS: Multivitamin TABLET 1 TAB PO (21:03)
[2023-12-27 08:00] VITALS: BP 108/64; PULSE 100; RESP 18; O2SAT 98
[2023-12-27] MEDS: Divalproex Sodium Sprinkles 125 MG CAP.DR.SPR 250 MG PO ×3 (08:20→20:27)
[2023-12-27] MEDS: Emtricitabin/Tenofovir 200/300 TABLET 1 TAB PO (08:20)
[2023-12-27] MEDS: amLODIPine Besylate 5 MG TABLET PO (08:21)
[2023-12-27] MEDS: OLANZapine 5 MG TABLET PO ×2 (08:21→15:33)
[2023-12-27] MEDS: levETIRAcetam 500 MG TABLET PO ×2 (08:21→20:27)
[2023-12-27] MEDS: Thiamine HCL 100 MG TABLET PO (08:21)
[2023-12-27] MEDS: Rilpivirine HCL 25 MG TABLET PO (08:21)
[2023-12-27] MEDS: HaloperidoL 5 MG TABLET PO ×2 (08:21→20:27)
--- NOTE | 2023-12-27 08:37 | HO.PSYCHPN ---
Subjective Subjective Date of Service: 12/27/23 Reason For Visit: F32.9 Subjective Notes: Conditional Voluntary Interim History: sleep- all night. He is taking medications as prescribed. No SI/HI. no overt psychosis or delusions. He is mostly in his room but comes out for meals. Review of Systems Review of Systems General: No fevers, malaise, unintentional weight loss HEENT: No blurred vision, diplopia. No sore throat, nasal congestion, rhinorrhea, sinus pain, ear pain Cardiovascular: No chest pain, palpitations, or leg edema Respiratory: No shortness of breath, wheezing, cough GI: No abdominal pain, nausea, vomiting, diarrhea, constipation, melena, hematochezia : No dysuria, hematuria, increased urinary frequency, decreased urinary output MSK: No myalgia, back pain Neuro: No headaches, weakness, paresthesias Skin: No rashes or lesions Yes all other systems are reviewed and are negative and Unobtainable due to mental status Mental Status Exam Mental Status Exam Patient Appearance: Appropriate Patient Orientation: Person and Situation Level of Consciousness: Awake and Appropriate Patient Behavior: Guarded and Passive Mood Description: Withdrawn Affect Description: Constricted Patient Cognition Impaired: Yes Ability to Follow Directions: Good Speech Pattern: Clear Diagnostics Vital Signs (24Hr): Vital Signs - 24 hr 12/26/23 20:00 Temperature 97.7 F Pulse Rate 87 Respiratory Rate 16 Blood Pressure 105/67 Pulse Oximetry 94 Oxygen Delivery Method Room Air BMI result Body Mass Index 19.2 Labs 11/19/23 08:03 11/19/23 08:03 Medications Medications Current Medications Acetaminophen (Acetaminophen 325 Mg Tablet) 650 mg PO Q6H PRN PRN Reason: Pain (Scale Score 1-3) Last Admin: 12/19/23 20:10 Dose: 650 mg Al Hydroxide/Mg Hydroxide (Magnesium Hydrox/Alum Hydrox 30 Ml Oral.Susp) 30 ml PO Q6H PRN PRN Reason: Heartburn/Nausea Last Admin: 11/12/23 06:20 Dose: 30 ml Albuterol Sulfate (Albuterol Sulfate 90 Mcg 8 Gm Inhaler) 2 puff INHALE RQ4H PRN PRN Reason: Wheezing Amlodipine Besylate (Amlodipine Besylate 5 Mg Tablet) 5 mg PO DAILY [facility]; Protocol Last Admin: 12/27/23 08:21 Dose: 5 mg Divalproex Sodium (Divalproex Sodium Sprinkles 125 Mg ) 250 mg PO TID [facility] Last Admin: 12/27/23 08:20 Dose: 250 mg Emtricitabine/Tenofovir (Emtricitabin/Tenofovir 200/300 Tablet) 1 tab PO DAILY [facility] Last Admin: 12/27/23 08:20 Dose: 1 tab Haloperidol (Haloperidol 5 Mg Tablet) 5 mg PO BID [facility] Last Admin: 12/27/23 08:21 Dose: 5 mg Haloperidol Decanoate (Haloperidol Decanoate 50 Mg/Ml Vial) 100 mg IM Q28D [facility] Last Admin: 12/23/23 21:14 Dose: 100 mg Levetiracetam (Levetiracetam 500 Mg Tablet) 500 mg PO BID [facility] Last Admin: 12/27/23 08:21 Dose: 500 mg Magnesium Hydroxide (Milk Of Magnesia 30 Ml Oral.Susp) 30 ml PO DAILY PRN PRN Reason: Constipation Mirtazapine (Mirtazapine 15 Mg Tablet) 15 mg PO BEDTIME [facility] Last Admin: 12/26/23 21:03 Dose: 15 mg Multivitamins/Vitamin C (Multivitamin Tablet) 1 tab PO BEDTIME [facility] Last Admin: 12/26/23 21:03 Dose: 1 tab Nicotine Polacrilex (Nicotine Polacrilex 2 Mg Gum) 4 mg BUCCAL Q2H PRN PRN Reason: Nicotine Cravings Olanzapine (Olanzapine 5 Mg Tablet) 5 mg PO BID@0800,1500 [facility] Last Admin: 12/27/23 08:21 Dose: 5 mg Olanzapine (Olanzapine 10 Mg Vial) 10 mg IM BEDTIME PRN PRN Reason: if refuses bedtime PO zyprexa Olanzapine (Olanzapine 10 Mg Vial) 5 mg IM BID@0800,1500 PRN PRN Reason: if refuses 0800/1500 PO zyprexa Last Admin: 10/13/23 14:58 Dose: 5 mg Olanzapine (Olanzapine 10 Mg Tablet) 20 mg PO BEDTIME [facility] Last Admin: 12/26/23 21:02 Dose: 20 mg Polyethylene Glycol (Polyethylene Glycol 3350 17 Gm Powd.Pack) 17 gm PO DAILY PRN PRN Reason: Constipation Rilpivirine (Rilpivirine Hcl 25 Mg Tablet) 25 mg PO DAILY [facility] Last Admin: 12/27/23 08:21 Dose: 25 mg Thiamine HCl (Thiamine Hcl 100 Mg Tablet) 100 mg PO DAILY [facility] Last Admin: 12/27/23 08:21 Dose: 100 mg Trazodone HCl (Trazodone Hcl 50 Mg Tablet) 50 mg PO BEDTIME MRX1 PRN PRN Reason: Insomnia Last Admin: 12/22/23 19:55 Dose: 50 mg Allergies Allergies Allergy/AdvReac Type Severity Reaction Status Date / Time No Known Allergies Allergy Unverified 01/28/20 16:07 [No Known Allergies*] Assessment & Plan Assessment & Plan (1) Schizoaffective disorder, bipolar type: Status: Acute Code(s): F25.0 - Schizoaffective disorder, bipolar type Assessment and Plan: 11/01 mildly up - positive mood=- but less irritable than in past visits 11/02 CTP (2) Dementia: Status: Acute Code(s): F03.90 - Unspecified dementia, unspecified severity, without behavioral disturbance, psychotic disturbance, mood disturbance, and anxiety Assessment and Plan: 11/01 ongoing dementia continue with reorientation and distraction prn - (3) Noncompliance: Status: Acute Code(s): Z91.199 - Patient's noncompliance with other medical treatment and regimen due to unspecified reason Assessment and Plan: seems to be taking medication currently - watches nurse crush them and put in ice cream Plan The patient is an elderly male with a past history of schizoaffective disorder, dementia, HIV and other medical problems, chronically mentally ill resident of assisted living facility referred to this facility after he became non compliant with medications with daniella and psychosis. The patient was assessed by crisis and transferring to this facility for psychiatric stabilization. At the moment of the interview the patient was able to contract for safety. Plan 1. Gather collateral information. 2. Continue with regular medications, we are not going to change his Depakote, olanzapine and Haldol Decanoate. 3. Reassessment with results. 4. 15 minutes checks since the patient is able to contract for safety. 5. Change Zyprexa to Zydis to avoid cheeking on October 02. 6. IM zyprexa ordered 10 mg t.i.d. p.r.n. refusal of p.o. as per court order. Total dose up to 30 mg a day. 7. Zyprexa increased up to 15 mg p.o. q.h.s. to target daniella and psychosis. Started on October 15. Zyprexa was increased up to 20 mg p.o. q.h.s. on October 17. 8. Increase Haldol up to 5 mg p.o. t.i.d. on October 22 and keep Haldol Decanoate as per court order. On December 18 we lowered Haldol to 5 mg p.o. b.i.d. 9. Medical certificate issued. 10. Blood work f on November 18 without no changes. 11. Guardianship hearing for December 02 12. Waiting for placement Reason for continued inpatient stay Substantial Risk for: inability to function Time Spent With Patient Time: Total time managing care of this patient today ____ minutes.
[2023-12-27 20:00] VITALS: BP 90/53; PULSE 103; RESP 18; TEMP 36.4; O2SAT 92
[2023-12-27] MEDS: Mirtazapine 15 MG TABLET PO (20:27)
[2023-12-27] MEDS: OLANZapine 10 MG TABLET 20 MG PO (20:27)
[2023-12-27] MEDS: Multivitamin TABLET 1 TAB PO (20:27)
[2023-12-28 07:58] VITALS: BP 130/84
[2023-12-28] MEDS: OLANZapine 5 MG TABLET PO ×2 (07:58→14:15)
[2023-12-28] MEDS: Rilpivirine HCL 25 MG TABLET PO (07:58)
[2023-12-28] MEDS: amLODIPine Besylate 5 MG TABLET PO (07:58)
[2023-12-28] MEDS: Emtricitabin/Tenofovir 200/300 TABLET 1 TAB PO (07:58)
[2023-12-28] MEDS: levETIRAcetam 500 MG TABLET PO ×2 (07:59→21:04)
[2023-12-28] MEDS: HaloperidoL 5 MG TABLET PO ×2 (07:59→21:04)
[2023-12-28] MEDS: Thiamine HCL 100 MG TABLET PO (07:59)
[2023-12-28 08:00] VITALS: BP 130/84; PULSE 102; RESP 17; TEMP 36.4; O2SAT 97
[2023-12-28] MEDS: Divalproex Sodium Sprinkles 125 MG CAP.DR.SPR 250 MG PO ×3 (08:00→21:04)
--- NOTE | 2023-12-28 13:00 | P.PNPSI_ITS ---
Subjective Subjective Date of Service: 12/28/23 Reason For Visit: F32.9 Subjective Notes: Conditional Voluntary Interim History: Patient was seen and discussed in rounds today. Records and plans were reviewed. He is mostly in bed. Waiting for her going back to the retirement. No complaints. Eating adequately. No complaints. No changes were made today Mental Status Exam Mental Status Exam Patient Appearance: Appropriate Patient Orientation: Person and Situation Level of Consciousness: Awake and Appropriate Patient Behavior: Guarded and Passive Mood Description: Withdrawn Affect Description: Constricted Patient Cognition Impaired: Yes Ability to Follow Directions: Good Speech Pattern: Clear Diagnostics Vital Signs (24Hr): Vital Signs - 24 hr 12/27/23 20:00 12/28/23 07:58 12/28/23 08:00 Temperature 97.5 F 97.5 F Pulse Rate 103 H 102 H Respiratory Rate 18 17 Blood Pressure 90/53 L 130/84 130/84 Pulse Oximetry 92 97 Oxygen Delivery Method Room Air Room Air BMI result Body Mass Index 19.2 Labs 11/19/23 08:03 11/19/23 08:03 Medications Medications Current Medications Acetaminophen (Acetaminophen 325 Mg Tablet) 650 mg PO Q6H PRN PRN Reason: Pain (Scale Score 1-3) Last Admin: 12/19/23 20:10 Dose: 650 mg Al Hydroxide/Mg Hydroxide (Magnesium Hydrox/Alum Hydrox 30 Ml Oral.Susp) 30 ml PO Q6H PRN PRN Reason: Heartburn/Nausea Last Admin: 11/12/23 06:20 Dose: 30 ml Albuterol Sulfate (Albuterol Sulfate 90 Mcg 8 Gm Inhaler) 2 puff INHALE RQ4H PRN PRN Reason: Wheezing Amlodipine Besylate (Amlodipine Besylate 5 Mg Tablet) 5 mg PO DAILY [facility]; Protocol Last Admin: 12/28/23 07:58 Dose: 5 mg Divalproex Sodium (Divalproex Sodium Sprinkles 125 Mg ) 250 mg PO TID [facility] Last Admin: 12/28/23 08:00 Dose: 250 mg Emtricitabine/Tenofovir (Emtricitabin/Tenofovir 200/300 Tablet) 1 tab PO DAILY [facility] Last Admin: 12/28/23 07:58 Dose: 1 tab Haloperidol (Haloperidol 5 Mg Tablet) 5 mg PO BID [facility] Last Admin: 12/28/23 07:59 Dose: 5 mg Haloperidol Decanoate (Haloperidol Decanoate 50 Mg/Ml Vial) 100 mg IM Q28D [facility] Last Admin: 12/23/23 21:14 Dose: 100 mg Levetiracetam (Levetiracetam 500 Mg Tablet) 500 mg PO BID [facility] Last Admin: 12/28/23 07:59 Dose: 500 mg Magnesium Hydroxide (Milk Of Magnesia 30 Ml Oral.Susp) 30 ml PO DAILY PRN PRN Reason: Constipation Mirtazapine (Mirtazapine 15 Mg Tablet) 15 mg PO BEDTIME [facility] Last Admin: 12/27/23 20:27 Dose: 15 mg Multivitamins/Vitamin C (Multivitamin Tablet) 1 tab PO BEDTIME [facility] Last Admin: 12/27/23 20:27 Dose: 1 tab Nicotine Polacrilex (Nicotine Polacrilex 2 Mg Gum) 4 mg BUCCAL Q2H PRN PRN Reason: Nicotine Cravings Olanzapine (Olanzapine 5 Mg Tablet) 5 mg PO BID@0800,1500 [facility] Last Admin: 12/28/23 07:58 Dose: 5 mg Olanzapine (Olanzapine 10 Mg Vial) 10 mg IM BEDTIME PRN PRN Reason: if refuses bedtime PO zyprexa Olanzapine (Olanzapine 10 Mg Vial) 5 mg IM BID@0800,1500 PRN PRN Reason: if refuses 0800/1500 PO zyprexa Last Admin: 10/13/23 14:58 Dose: 5 mg Olanzapine (Olanzapine 10 Mg Tablet) 20 mg PO BEDTIME [facility] Last Admin: 12/27/23 20:27 Dose: 20 mg Polyethylene Glycol (Polyethylene Glycol 3350 17 Gm Powd.Pack) 17 gm PO DAILY PRN PRN Reason: Constipation Rilpivirine (Rilpivirine Hcl 25 Mg Tablet) 25 mg PO DAILY [facility] Last Admin: 12/28/23 07:58 Dose: 25 mg Thiamine HCl (Thiamine Hcl 100 Mg Tablet) 100 mg PO DAILY [facility] Last Admin: 12/28/23 07:59 Dose: 100 mg Trazodone HCl (Trazodone Hcl 50 Mg Tablet) 50 mg PO BEDTIME MRX1 PRN PRN Reason: Insomnia Last Admin: 12/22/23 19:55 Dose: 50 mg Allergies Allergies Allergy/AdvReac Type Severity Reaction Status Date / Time No Known Allergies Allergy Unverified 01/28/20 16:07 [No Known Allergies*] Assessment & Plan Assessment & Plan (1) Schizoaffective disorder, bipolar type: Status: Acute Code(s): F25.0 - Schizoaffective disorder, bipolar type Assessment and Plan: 11/01 mildly up - positive mood=- but less irritable than in past visits 11/02 CTP (2) Dementia: Status: Acute Code(s): F03.90 - Unspecified dementia, unspecified severity, without behavioral disturbance, psychotic disturbance, mood disturbance, and anxiety Assessment and Plan: 11/01 ongoing dementia continue with reorientation and distraction prn - (3) Noncompliance: Status: Acute Code(s): Z91.199 - Patient's noncompliance with other medical treatment and regimen due to unspecified reason Assessment and Plan: seems to be taking medication currently - watches nurse crush them and put in ice cream Plan The patient is an elderly male with a past history of schizoaffective disorder, dementia, HIV and other medical problems, chronically mentally ill resident of assisted living facility referred to this facility after he became non compliant with medications with daniella and psychosis. The patient was assessed by crisis and transferring to this facility for psychiatric stabilization. At the moment of the interview the patient was able to contract for safety. Plan 1. Gather collateral information. 2. Continue with regular medications, we are not going to change his Depakote, olanzapine and Haldol Decanoate. 3. Reassessment with results. 4. 15 minutes checks since the patient is able to contract for safety. 5. Change Zyprexa to Zydis to avoid cheeking on October 02. 6. IM zyprexa ordered 10 mg t.i.d. p.r.n. refusal of p.o. as per court order. Total dose up to 30 mg a day. 7. Zyprexa increased up to 15 mg p.o. q.h.s. to target daniella and psychosis. Started on October 15. Zyprexa was increased up to 20 mg p.o. q.h.s. on October 17. 8. Increase Haldol up to 5 mg p.o. t.i.d. on October 22 and keep Haldol Decanoate as per court order. On December 18 we lowered Haldol to 5 mg p.o. b.i.d. 9. Medical certificate issued. 10. Blood work f on November 18 without no changes. 11. Guardianship hearing for December 02 12. Waiting for placement 12/27: Continue current regimen and planslan Reason for continued inpatient stay Substantial Risk for: inability to function and med/psych decompensation Time Spent With Patient Time: Total time managing care of this patient today ____ minutes.
[2023-12-28 20:00] VITALS: BP 98/58; PULSE 96; RESP 16; TEMP 36.6; O2SAT 94
[2023-12-28] MEDS: Multivitamin TABLET 1 TAB PO (21:03)
[2023-12-28] MEDS: OLANZapine 10 MG TABLET 20 MG PO (21:03)
[2023-12-28] MEDS: Mirtazapine 15 MG TABLET PO (21:04)
[2023-12-29 07:45] VITALS: BP 117/70; PULSE 94; RESP 20; TEMP 36.2; O2SAT 94
[2023-12-29] MEDS: Rilpivirine HCL 25 MG TABLET PO (07:48)
[2023-12-29] MEDS: Emtricitabin/Tenofovir 200/300 TABLET 1 TAB PO (07:49)
[2023-12-29] MEDS: Thiamine HCL 100 MG TABLET PO (07:49)
[2023-12-29] MEDS: HaloperidoL 5 MG TABLET PO ×2 (07:49→20:48)
[2023-12-29] MEDS: amLODIPine Besylate 5 MG TABLET PO (07:49)
[2023-12-29] MEDS: levETIRAcetam 500 MG TABLET PO ×2 (07:50→20:48)
[2023-12-29] MEDS: OLANZapine 5 MG TABLET PO ×2 (07:51→14:48)
[2023-12-29] MEDS: Divalproex Sodium Sprinkles 125 MG CAP.DR.SPR 250 MG PO ×3 (07:51→20:47)
--- NOTE | 2023-12-29 10:36 | P.PNPSI_ITS ---
Subjective Subjective Date of Service: 12/29/23 Reason For Visit: F32.9 Subjective Notes: Conditional Voluntary Interim History: Patient was seen and discussed in rounds today. Records and plans were reviewed. He continues to be isolative on his bed. Eating and sleeping adequately. No complaints or side effects. No dangerous behaviors. No changes were made today Review of Systems Review of Systems Yes all other systems are reviewed and are negative Mental Status Exam Mental Status Exam Patient Appearance: Appropriate Patient Orientation: Person and Situation Level of Consciousness: Awake and Appropriate Patient Behavior: Guarded and Passive Mood Description: Withdrawn Affect Description: Constricted Patient Cognition Impaired: Yes Ability to Follow Directions: Good Speech Pattern: Clear Diagnostics Vital Signs (24Hr): Vital Signs - 24 hr 12/28/23 20:00 12/29/23 07:45 Temperature 97.8 F 97.1 F Pulse Rate 96 94 Respiratory Rate 16 20 Blood Pressure 98/58 L 117/70 Pulse Oximetry 94 94 Oxygen Delivery Method Room Air Room Air BMI result Body Mass Index 19.2 Labs 11/19/23 08:03 11/19/23 08:03 Medications Medications Current Medications Acetaminophen (Acetaminophen 325 Mg Tablet) 650 mg PO Q6H PRN PRN Reason: Pain (Scale Score 1-3) Last Admin: 12/19/23 20:10 Dose: 650 mg Al Hydroxide/Mg Hydroxide (Magnesium Hydrox/Alum Hydrox 30 Ml Oral.Susp) 30 ml PO Q6H PRN PRN Reason: Heartburn/Nausea Last Admin: 11/12/23 06:20 Dose: 30 ml Albuterol Sulfate (Albuterol Sulfate 90 Mcg 8 Gm Inhaler) 2 puff INHALE RQ4H PRN PRN Reason: Wheezing Amlodipine Besylate (Amlodipine Besylate 5 Mg Tablet) 5 mg PO DAILY [facility]; Protocol Last Admin: 12/29/23 07:49 Dose: 5 mg Divalproex Sodium (Divalproex Sodium Sprinkles 125 Mg ) 250 mg PO TID [facility] Last Admin: 12/29/23 07:51 Dose: 250 mg Emtricitabine/Tenofovir (Emtricitabin/Tenofovir 200/300 Tablet) 1 tab PO DAILY [facility] Last Admin: 12/29/23 07:49 Dose: 1 tab Haloperidol (Haloperidol 5 Mg Tablet) 5 mg PO BID [facility] Last Admin: 12/29/23 07:49 Dose: 5 mg Haloperidol Decanoate (Haloperidol Decanoate 50 Mg/Ml Vial) 100 mg IM Q28D [facility] Last Admin: 12/23/23 21:14 Dose: 100 mg Levetiracetam (Levetiracetam 500 Mg Tablet) 500 mg PO BID [facility] Last Admin: 12/29/23 07:50 Dose: 500 mg Magnesium Hydroxide (Milk Of Magnesia 30 Ml Oral.Susp) 30 ml PO DAILY PRN PRN Reason: Constipation Mirtazapine (Mirtazapine 15 Mg Tablet) 15 mg PO BEDTIME [facility] Last Admin: 12/28/23 21:04 Dose: 15 mg Multivitamins/Vitamin C (Multivitamin Tablet) 1 tab PO BEDTIME [facility] Last Admin: 12/28/23 21:03 Dose: 1 tab Nicotine Polacrilex (Nicotine Polacrilex 2 Mg Gum) 4 mg BUCCAL Q2H PRN PRN Reason: Nicotine Cravings Olanzapine (Olanzapine 5 Mg Tablet) 5 mg PO BID@0800,1500 [facility] Last Admin: 12/29/23 07:51 Dose: 5 mg Olanzapine (Olanzapine 10 Mg Vial) 10 mg IM BEDTIME PRN PRN Reason: if refuses bedtime PO zyprexa Olanzapine (Olanzapine 10 Mg Vial) 5 mg IM BID@0800,1500 PRN PRN Reason: if refuses 0800/1500 PO zyprexa Last Admin: 10/13/23 14:58 Dose: 5 mg Olanzapine (Olanzapine 10 Mg Tablet) 20 mg PO BEDTIME [facility] Last Admin: 12/28/23 21:03 Dose: 20 mg Polyethylene Glycol (Polyethylene Glycol 3350 17 Gm Powd.Pack) 17 gm PO DAILY PRN PRN Reason: Constipation Rilpivirine (Rilpivirine Hcl 25 Mg Tablet) 25 mg PO DAILY [facility] Last Admin: 12/29/23 07:48 Dose: 25 mg Thiamine HCl (Thiamine Hcl 100 Mg Tablet) 100 mg PO DAILY [facility] Last Admin: 12/29/23 07:49 Dose: 100 mg Trazodone HCl (Trazodone Hcl 50 Mg Tablet) 50 mg PO BEDTIME MRX1 PRN PRN Reason: Insomnia Last Admin: 12/22/23 19:55 Dose: 50 mg Allergies Allergies Allergy/AdvReac Type Severity Reaction Status Date / Time No Known Allergies Allergy Unverified 01/28/20 16:07 [No Known Allergies*] Assessment & Plan Assessment & Plan (1) Schizoaffective disorder, bipolar type: Status: Acute Code(s): F25.0 - Schizoaffective disorder, bipolar type Assessment and Plan: 11/01 mildly up - positive mood=- but less irritable than in past visits 11/02 CTP (2) Dementia: Status: Acute Code(s): F03.90 - Unspecified dementia, unspecified severity, without behavioral disturbance, psychotic disturbance, mood disturbance, and anxiety Assessment and Plan: 11/01 ongoing dementia continue with reorientation and distraction prn - (3) Noncompliance: Status: Acute Code(s): Z91.199 - Patient's noncompliance with other medical treatment and regimen due to unspecified reason Assessment and Plan: seems to be taking medication currently - watches nurse crush them and put in ice cream Plan The patient is an elderly male with a past history of schizoaffective disorder, dementia, HIV and other medical problems, chronically mentally ill resident of assisted living facility referred to this facility after he became non compliant with medications with daniella and psychosis. The patient was assessed by crisis and transferring to this facility for psychiatric stabilization. At the moment of the interview the patient was able to contract for safety. Plan 1. Gather collateral information. 2. Continue with regular medications, we are not going to change his Depakote, olanzapine and Haldol Decanoate. 3. Reassessment with results. 4. 15 minutes checks since the patient is able to contract for safety. 5. Change Zyprexa to Zydis to avoid cheeking on October 02. 6. IM zyprexa ordered 10 mg t.i.d. p.r.n. refusal of p.o. as per court order. Total dose up to 30 mg a day. 7. Zyprexa increased up to 15 mg p.o. q.h.s. to target daniella and psychosis. Started on October 15. Zyprexa was increased up to 20 mg p.o. q.h.s. on October 17. 8. Increase Haldol up to 5 mg p.o. t.i.d. on October 22 and keep Haldol Decanoate as per court order. On December 18 we lowered Haldol to 5 mg p.o. b.i.d. 9. Medical certificate issued. 10. Blood work f on November 18 without no changes. 11. Guardianship hearing for December 02 12. Waiting for placement 12/27: Continue current regimen and plans 12/28: Continue current regimen and plans Reason for continued inpatient stay Substantial Risk for: inability to function Time Spent With Patient Time: Total time managing care of this patient today ____ minutes.
[2023-12-29 20:00] VITALS: BP 104/71; PULSE 95; RESP 16; TEMP 36.4; O2SAT 96
[2023-12-29] MEDS: OLANZapine 10 MG TABLET 20 MG PO (20:47)
[2023-12-29] MEDS: Mirtazapine 15 MG TABLET PO (20:48)
[2023-12-29] MEDS: Multivitamin TABLET 1 TAB PO (20:48)
[2023-12-30 08:00] VITALS: BP 117/62; PULSE 98; RESP 18; TEMP 36.5; O2SAT 94
[2023-12-30 08:47] VITALS: BP 117/62
[2023-12-30] MEDS: Divalproex Sodium Sprinkles 125 MG CAP.DR.SPR 250 MG PO ×3 (08:47→20:44)
[2023-12-30] MEDS: amLODIPine Besylate 5 MG TABLET PO (08:47)
[2023-12-30] MEDS: Emtricitabin/Tenofovir 200/300 TABLET 1 TAB PO (08:47)
[2023-12-30] MEDS: HaloperidoL 5 MG TABLET PO ×2 (08:47→20:44)
[2023-12-30] MEDS: OLANZapine 5 MG TABLET PO ×2 (08:47→14:42)
[2023-12-30] MEDS: levETIRAcetam 500 MG TABLET PO ×2 (08:47→20:44)
[2023-12-30] MEDS: Rilpivirine HCL 25 MG TABLET PO (08:47)
[2023-12-30] MEDS: Thiamine HCL 100 MG TABLET PO (08:47)
--- NOTE | 2023-12-30 13:22 | P.PNPSI_ITS ---
Subjective Subjective Date of Service: 12/30/23 Reason For Visit: F32.9 Subjective Notes: Conditional Voluntary Interim History: The nursing staff reported the patient had been fully compliant with treatment he is pleasant, cooperative very polite. But he is most of the time on his room interacting minimally with staff. He slept 8 hours. The occupational therapist reported that he is more engageable and he has attended to a couple of groups. On interview the patient denies new symptoms, waiting for placement. Mental Status Exam Mental Status Exam Patient Appearance: Appropriate Patient Orientation: Person and Situation Level of Consciousness: Awake and Appropriate Patient Behavior: Guarded and Passive Mood Description: Withdrawn Affect Description: Constricted Patient Cognition Impaired: Yes Ability to Follow Directions: Good Speech Pattern: Clear Hallucinations: None Delusions: Not Present Thought Process: Distracted and Slowed Thinking Thought Content: positive for [place] and positive for Circumstantial Judgement: Fair Diagnostics Vital Signs (24Hr): Vital Signs - 24 hr 12/29/23 20:00 12/30/23 08:00 12/30/23 08:47 Temperature 97.6 F 97.7 F Pulse Rate 95 98 Respiratory Rate 16 18 Blood Pressure 104/71 117/62 117/62 Pulse Oximetry 96 94 Oxygen Delivery Method Room Air Room Air BMI result Body Mass Index 19.2 Labs 11/19/23 08:03 11/19/23 08:03 Medications Medications Current Medications Acetaminophen (Acetaminophen 325 Mg Tablet) 650 mg PO Q6H PRN PRN Reason: Pain (Scale Score 1-3) Last Admin: 12/19/23 20:10 Dose: 650 mg Al Hydroxide/Mg Hydroxide (Magnesium Hydrox/Alum Hydrox 30 Ml Oral.Susp) 30 ml PO Q6H PRN PRN Reason: Heartburn/Nausea Last Admin: 11/12/23 06:20 Dose: 30 ml Albuterol Sulfate (Albuterol Sulfate 90 Mcg 8 Gm Inhaler) 2 puff INHALE RQ4H PRN PRN Reason: Wheezing Amlodipine Besylate (Amlodipine Besylate 5 Mg Tablet) 5 mg PO DAILY [facility]; Protocol Last Admin: 12/30/23 08:47 Dose: 5 mg Divalproex Sodium (Divalproex Sodium Sprinkles 125 Mg ) 250 mg PO TID [facility] Last Admin: 12/30/23 08:47 Dose: 250 mg Emtricitabine/Tenofovir (Emtricitabin/Tenofovir 200/300 Tablet) 1 tab PO DAILY [facility] Last Admin: 12/30/23 08:47 Dose: 1 tab Haloperidol (Haloperidol 5 Mg Tablet) 5 mg PO BID [facility] Last Admin: 12/30/23 08:47 Dose: 5 mg Haloperidol Decanoate (Haloperidol Decanoate 50 Mg/Ml Vial) 100 mg IM Q28D [facility] Last Admin: 12/23/23 21:14 Dose: 100 mg Levetiracetam (Levetiracetam 500 Mg Tablet) 500 mg PO BID [facility] Last Admin: 12/30/23 08:47 Dose: 500 mg Magnesium Hydroxide (Milk Of Magnesia 30 Ml Oral.Susp) 30 ml PO DAILY PRN PRN Reason: Constipation Mirtazapine (Mirtazapine 15 Mg Tablet) 15 mg PO BEDTIME [facility] Last Admin: 12/29/23 20:48 Dose: 15 mg Multivitamins/Vitamin C (Multivitamin Tablet) 1 tab PO BEDTIME [facility] Last Admin: 12/29/23 20:48 Dose: 1 tab Nicotine Polacrilex (Nicotine Polacrilex 2 Mg Gum) 4 mg BUCCAL Q2H PRN PRN Reason: Nicotine Cravings Olanzapine (Olanzapine 5 Mg Tablet) 5 mg PO BID@0800,1500 [facility] Last Admin: 12/30/23 08:47 Dose: 5 mg Olanzapine (Olanzapine 10 Mg Vial) 10 mg IM BEDTIME PRN PRN Reason: if refuses bedtime PO zyprexa Olanzapine (Olanzapine 10 Mg Vial) 5 mg IM BID@0800,1500 PRN PRN Reason: if refuses 0800/1500 PO zyprexa Last Admin: 10/13/23 14:58 Dose: 5 mg Olanzapine (Olanzapine 10 Mg Tablet) 20 mg PO BEDTIME [facility] Last Admin: 12/29/23 20:47 Dose: 20 mg Polyethylene Glycol (Polyethylene Glycol 3350 17 Gm Powd.Pack) 17 gm PO DAILY PRN PRN Reason: Constipation Rilpivirine (Rilpivirine Hcl 25 Mg Tablet) 25 mg PO DAILY [facility] Last Admin: 12/30/23 08:47 Dose: 25 mg Thiamine HCl (Thiamine Hcl 100 Mg Tablet) 100 mg PO DAILY [facility] Last Admin: 12/30/23 08:47 Dose: 100 mg Trazodone HCl (Trazodone Hcl 50 Mg Tablet) 50 mg PO BEDTIME MRX1 PRN PRN Reason: Insomnia Last Admin: 12/22/23 19:55 Dose: 50 mg Allergies Allergies Allergy/AdvReac Type Severity Reaction Status Date / Time No Known Allergies Allergy Unverified 01/28/20 16:07 [No Known Allergies*] Assessment & Plan Assessment & Plan (1) Schizoaffective disorder, bipolar type: Status: Acute Code(s): F25.0 - Schizoaffective disorder, bipolar type Assessment and Plan: 11/01 mildly up - positive mood=- but less irritable than in past visits 11/02 CTP (2) Dementia: Status: Acute Code(s): F03.90 - Unspecified dementia, unspecified severity, without behavioral disturbance, psychotic disturbance, mood disturbance, and anxiety Assessment and Plan: 11/01 ongoing dementia continue with reorientation and distraction prn - (3) Noncompliance: Status: Acute Code(s): Z91.199 - Patient's noncompliance with other medical treatment and regimen due to unspecified reason Assessment and Plan: seems to be taking medication currently - watches nurse crush them and put in ice cream Plan The patient is an elderly male with a past history of schizoaffective disorder, dementia, HIV and other medical problems, chronically mentally ill resident of assisted living facility referred to this facility after he became non compliant with medications with daniella and psychosis. The patient was assessed by crisis and transferring to this facility for psychiatric stabilization. At the moment of the interview the patient was able to contract for safety. Plan 1. Gather collateral information. 2. Continue with regular medications, we are not going to change his Depakote, olanzapine and Haldol Decanoate. 3. Reassessment with results. 4. 15 minutes checks since the patient is able to contract for safety. 5. Change Zyprexa to Zydis to avoid cheeking on October 02. 6. IM zyprexa ordered 10 mg t.i.d. p.r.n. refusal of p.o. as per court order. Total dose up to 30 mg a day. 7. Zyprexa increased up to 15 mg p.o. q.h.s. to target daniella and psychosis. Started on October 15. Zyprexa was increased up to 20 mg p.o. q.h.s. on October 17. 8. Increase Haldol up to 5 mg p.o. t.i.d. on October 22 and keep Haldol Decanoate as per court order. On December 18 we lowered Haldol to 5 mg p.o. b.i.d. 9. Medical certificate issued. 10. Blood work f on November 18 without no changes. 11. Guardianship hearing for December 02. Waiting for placement Reason for continued inpatient stay Substantial Risk for: inability to function, rapid decompensation and med/psych decompensation Time Spent With Patient Time: Total time managing care of this patient today ___20_ minutes.
[2023-12-30 20:00] VITALS: BP 103/71; PULSE 90; RESP 16; TEMP 36.5; O2SAT 94
[2023-12-30] MEDS: Multivitamin TABLET 1 TAB PO (20:44)
[2023-12-30] MEDS: OLANZapine 10 MG TABLET 20 MG PO (20:44)
[2023-12-30] MEDS: Mirtazapine 15 MG TABLET PO (20:44)
[2023-12-31 08:00] VITALS: BP 119/78; PULSE 99; RESP 18; TEMP 36; O2SAT 97
[2023-12-31 08:30] VITALS: BP 119/78
[2023-12-31] MEDS: Divalproex Sodium Sprinkles 125 MG CAP.DR.SPR 250 MG PO ×3 (08:30→20:08)
[2023-12-31] MEDS: amLODIPine Besylate 5 MG TABLET PO (08:30)
[2023-12-31] MEDS: Rilpivirine HCL 25 MG TABLET PO (08:31)
[2023-12-31] MEDS: Thiamine HCL 100 MG TABLET PO (08:31)
[2023-12-31] MEDS: OLANZapine 5 MG TABLET PO ×2 (08:31→15:23)
[2023-12-31] MEDS: Emtricitabin/Tenofovir 200/300 TABLET 1 TAB PO (08:31)
[2023-12-31] MEDS: levETIRAcetam 500 MG TABLET PO ×2 (08:31→20:08)
[2023-12-31] MEDS: HaloperidoL 5 MG TABLET PO ×2 (08:31→20:08)
--- NOTE | 2023-12-31 12:49 | P.PNPSI_ITS ---
Subjective Subjective Date of Service: 12/31/23 Reason For Visit: F32.9 Subjective Notes: Conditional Voluntary Interim History: The nursing staff reported that the patient was pleasant, cooperative, went to watch TV, isolative at times. The SW contacted his guardian and they found his certificate to correct the on his social security. Waiting for placement. Mental Status Exam Mental Status Exam Patient Appearance: Appropriate Patient Orientation: Person and Situation Level of Consciousness: Awake and Appropriate Patient Behavior: Guarded and Passive Mood Description: Withdrawn Affect Description: Constricted Patient Cognition Impaired: Yes Ability to Follow Directions: Good Speech Pattern: Clear Hallucinations: None Delusions: Ideas of Reference Thought Process: Distracted Thought Content: positive for [place] and positive for Poverty of Content Judgement: Fair Diagnostics Vital Signs (24Hr): Vital Signs - 24 hr 12/30/23 20:00 12/31/23 08:00 12/31/23 08:30 Temperature 97.7 F 96.8 F Pulse Rate 90 99 Respiratory Rate 16 18 Blood Pressure 103/71 119/78 119/78 Pulse Oximetry 94 97 Oxygen Delivery Method Room Air Room Air BMI result Body Mass Index 19.2 Labs 11/19/23 08:03 11/19/23 08:03 Medications Medications Current Medications Acetaminophen (Acetaminophen 325 Mg Tablet) 650 mg PO Q6H PRN PRN Reason: Pain (Scale Score 1-3) Last Admin: 12/19/23 20:10 Dose: 650 mg Al Hydroxide/Mg Hydroxide (Magnesium Hydrox/Alum Hydrox 30 Ml Oral.Susp) 30 ml PO Q6H PRN PRN Reason: Heartburn/Nausea Last Admin: 11/12/23 06:20 Dose: 30 ml Albuterol Sulfate (Albuterol Sulfate 90 Mcg 8 Gm Inhaler) 2 puff INHALE RQ4H PRN PRN Reason: Wheezing Amlodipine Besylate (Amlodipine Besylate 5 Mg Tablet) 5 mg PO DAILY [facility]; Protocol Last Admin: 12/31/23 08:30 Dose: 5 mg Divalproex Sodium (Divalproex Sodium Sprinkles 125 Mg ) 250 mg PO TID [facility] Last Admin: 12/31/23 08:30 Dose: 250 mg Emtricitabine/Tenofovir (Emtricitabin/Tenofovir 200/300 Tablet) 1 tab PO DAILY [facility] Last Admin: 12/31/23 08:31 Dose: 1 tab Haloperidol (Haloperidol 5 Mg Tablet) 5 mg PO BID [facility] Last Admin: 12/31/23 08:31 Dose: 5 mg Haloperidol Decanoate (Haloperidol Decanoate 50 Mg/Ml Vial) 100 mg IM Q28D [facility] Last Admin: 12/23/23 21:14 Dose: 100 mg Levetiracetam (Levetiracetam 500 Mg Tablet) 500 mg PO BID [facility] Last Admin: 12/31/23 08:31 Dose: 500 mg Magnesium Hydroxide (Milk Of Magnesia 30 Ml Oral.Susp) 30 ml PO DAILY PRN PRN Reason: Constipation Mirtazapine (Mirtazapine 15 Mg Tablet) 15 mg PO BEDTIME [facility] Last Admin: 12/30/23 20:44 Dose: 15 mg Multivitamins/Vitamin C (Multivitamin Tablet) 1 tab PO BEDTIME [facility] Last Admin: 12/30/23 20:44 Dose: 1 tab Nicotine Polacrilex (Nicotine Polacrilex 2 Mg Gum) 4 mg BUCCAL Q2H PRN PRN Reason: Nicotine Cravings Olanzapine (Olanzapine 5 Mg Tablet) 5 mg PO BID@0800,1500 [facility] Last Admin: 12/31/23 08:31 Dose: 5 mg Olanzapine (Olanzapine 10 Mg Vial) 10 mg IM BEDTIME PRN PRN Reason: if refuses bedtime PO zyprexa Olanzapine (Olanzapine 10 Mg Vial) 5 mg IM BID@0800,1500 PRN PRN Reason: if refuses 0800/1500 PO zyprexa Last Admin: 10/13/23 14:58 Dose: 5 mg Olanzapine (Olanzapine 10 Mg Tablet) 20 mg PO BEDTIME [facility] Last Admin: 12/30/23 20:44 Dose: 20 mg Polyethylene Glycol (Polyethylene Glycol 3350 17 Gm Powd.Pack) 17 gm PO DAILY PRN PRN Reason: Constipation Rilpivirine (Rilpivirine Hcl 25 Mg Tablet) 25 mg PO DAILY [facility] Last Admin: 12/31/23 08:31 Dose: 25 mg Thiamine HCl (Thiamine Hcl 100 Mg Tablet) 100 mg PO DAILY [facility] Last Admin: 12/31/23 08:31 Dose: 100 mg Trazodone HCl (Trazodone Hcl 50 Mg Tablet) 50 mg PO BEDTIME MRX1 PRN PRN Reason: Insomnia Last Admin: 12/22/23 19:55 Dose: 50 mg Allergies Allergies Allergy/AdvReac Type Severity Reaction Status Date / Time No Known Allergies Allergy Unverified 01/28/20 16:07 [No Known Allergies*] Assessment & Plan Assessment & Plan (1) Schizoaffective disorder, bipolar type: Status: Acute Code(s): F25.0 - Schizoaffective disorder, bipolar type Assessment and Plan: 11/01 mildly up - positive mood=- but less irritable than in past visits 11/02 CTP (2) Dementia: Status: Acute Code(s): F03.90 - Unspecified dementia, unspecified severity, without behavioral disturbance, psychotic disturbance, mood disturbance, and anxiety Assessment and Plan: 11/01 ongoing dementia continue with reorientation and distraction prn - (3) Noncompliance: Status: Acute Code(s): Z91.199 - Patient's noncompliance with other medical treatment and regimen due to unspecified reason Assessment and Plan: seems to be taking medication currently - watches nurse crush them and put in ice cream Plan The patient is an elderly male with a past history of schizoaffective disorder, dementia, HIV and other medical problems, chronically mentally ill resident of assisted living facility referred to this facility after he became non compliant with medications with daniella and psychosis. The patient was assessed by crisis and transferring to this facility for psychiatric stabilization. At the moment of the interview the patient was able to contract for safety. Plan 1. Gather collateral information. 2. Continue with regular medications, we are not going to change his Depakote, olanzapine and Haldol Decanoate. 3. Reassessment with results. 4. 15 minutes checks since the patient is able to contract for safety. 5. Change Zyprexa to Zydis to avoid cheeking on October 02. 6. IM zyprexa ordered 10 mg t.i.d. p.r.n. refusal of p.o. as per court order. Total dose up to 30 mg a day. 7. Zyprexa increased up to 15 mg p.o. q.h.s. to target daniella and psychosis. Started on October 15. Zyprexa was increased up to 20 mg p.o. q.h.s. on October 17. 8. Increase Haldol up to 5 mg p.o. t.i.d. on October 22 and keep Haldol Decanoate as per court order. On December 18 we lowered Haldol to 5 mg p.o. b.i.d. 9. Medical certificate issued. 10. Blood work f on November 18 without no changes. 11. Guardianship hearing for December 02 12. Waiting for placement Reason for continued inpatient stay Substantial Risk for: inability to function, rapid decompensation and med/psych decompensation Time Spent With Patient Time: Total time managing care of this patient today __20__ minutes.
[2023-12-31 20:00] VITALS: BP 89/58; PULSE 95; TEMP 36.3
[2023-12-31] MEDS: Mirtazapine 15 MG TABLET PO (20:08)
[2023-12-31] MEDS: Multivitamin TABLET 1 TAB PO (20:08)
[2023-12-31] MEDS: OLANZapine 10 MG TABLET 20 MG PO (20:08)
[2024-01-01 08:00] VITALS: BP 93/59; PULSE 86; RESP 18; TEMP 36.5; O2SAT 92
[2024-01-01] MEDS: Rilpivirine HCL 25 MG TABLET PO (08:58)
[2024-01-01] MEDS: Emtricitabin/Tenofovir 200/300 TABLET 1 TAB PO (08:59)
[2024-01-01] MEDS: levETIRAcetam 500 MG TABLET PO ×2 (08:59→19:53)
[2024-01-01] MEDS: Thiamine HCL 100 MG TABLET PO (08:59)
[2024-01-01] MEDS: Divalproex Sodium Sprinkles 125 MG CAP.DR.SPR 250 MG PO ×3 (08:59→19:51)
[2024-01-01] MEDS: OLANZapine 5 MG TABLET PO ×2 (08:59→14:01)
[2024-01-01] MEDS: HaloperidoL 5 MG TABLET PO ×2 (08:59→19:53)
--- NOTE | 2024-01-01 11:45 | MHC.CLN ---
F/U DIET=REGULAR. ENSURE TID TO INCREASE KCALS/NUTRITION (1050 KCALS, 60 G PROTEIN). CONTINUES WITH USUALLY GOOD INTAKE, 100% MOST MEALS. FAVORABLE SIGNIFICANT WEIGHT GAIN SINCE ADMISSION, +14.8%. FOLLOW FOR INTAKE OF MEALS AND SUPPLEMENT. RD TO FOLLOW UP EVERY OTHER WEEK.
--- NOTE | 2024-01-01 14:10 | HO.PSYCHPN ---
Subjective Subjective Date of Service: 01/01/24 Reason For Visit: F32.9 Subjective Notes: Conditional Voluntary Interim History: The nursing staff reported the patient had been pleasant and cooperative had been seen in groups sporadically. On interview the patient denies new symptoms, waiting for placement. Mental Status Exam Mental Status Exam Patient Appearance: Well Grooomed Patient Orientation: Person and Situation Level of Consciousness: Awake and Appropriate Patient Behavior: Guarded and Passive Mood Description: Withdrawn Affect Description: Constricted Patient Cognition Impaired: Yes Ability to Follow Directions: Good Speech Pattern: Clear Hallucinations: None Delusions: Not Present Thought Process: Distracted and Slowed Thinking Thought Content: positive for Poverty of Content Judgement: Fair Diagnostics Vital Signs (24Hr): Vital Signs - 24 hr 12/31/23 20:00 01/01/24 08:00 Temperature 97.4 F 97.7 F Pulse Rate 95 86 Respiratory Rate 18 Blood Pressure 89/58 L 93/59 L Pulse Oximetry 92 Oxygen Delivery Method Room Air Room Air BMI result Body Mass Index 19.2 Labs 11/19/23 08:03 11/19/23 08:03 Medications Medications Current Medications Acetaminophen (Acetaminophen 325 Mg Tablet) 650 mg PO Q6H PRN PRN Reason: Pain (Scale Score 1-3) Last Admin: 12/19/23 20:10 Dose: 650 mg Al Hydroxide/Mg Hydroxide (Magnesium Hydrox/Alum Hydrox 30 Ml Oral.Susp) 30 ml PO Q6H PRN PRN Reason: Heartburn/Nausea Last Admin: 11/12/23 06:20 Dose: 30 ml Albuterol Sulfate (Albuterol Sulfate 90 Mcg 8 Gm Inhaler) 2 puff INHALE RQ4H PRN PRN Reason: Wheezing Amlodipine Besylate (Amlodipine Besylate 5 Mg Tablet) 5 mg PO DAILY [facility]; Protocol Last Admin: 01/01/24 11:48 Dose: Not Given Divalproex Sodium (Divalproex Sodium Sprinkles 125 Mg ) 250 mg PO TID [facility] Last Admin: 01/01/24 14:00 Dose: 250 mg Emtricitabine/Tenofovir (Emtricitabin/Tenofovir 200/300 Tablet) 1 tab PO DAILY [facility] Last Admin: 01/01/24 08:59 Dose: 1 tab Haloperidol (Haloperidol 5 Mg Tablet) 5 mg PO BID [facility] Last Admin: 01/01/24 08:59 Dose: 5 mg Haloperidol Decanoate (Haloperidol Decanoate 50 Mg/Ml Vial) 100 mg IM Q28D [facility] Last Admin: 12/23/23 21:14 Dose: 100 mg Levetiracetam (Levetiracetam 500 Mg Tablet) 500 mg PO BID [facility] Last Admin: 01/01/24 08:59 Dose: 500 mg Magnesium Hydroxide (Milk Of Magnesia 30 Ml Oral.Susp) 30 ml PO DAILY PRN PRN Reason: Constipation Mirtazapine (Mirtazapine 15 Mg Tablet) 15 mg PO BEDTIME [facility] Last Admin: 12/31/23 20:08 Dose: 15 mg Multivitamins/Vitamin C (Multivitamin Tablet) 1 tab PO BEDTIME [facility] Last Admin: 12/31/23 20:08 Dose: 1 tab Nicotine Polacrilex (Nicotine Polacrilex 2 Mg Gum) 4 mg BUCCAL Q2H PRN PRN Reason: Nicotine Cravings Olanzapine (Olanzapine 5 Mg Tablet) 5 mg PO BID@0800,1500 [facility] Last Admin: 01/01/24 14:01 Dose: 5 mg Olanzapine (Olanzapine 10 Mg Vial) 10 mg IM BEDTIME PRN PRN Reason: if refuses bedtime PO zyprexa Olanzapine (Olanzapine 10 Mg Vial) 5 mg IM BID@0800,1500 PRN PRN Reason: if refuses 0800/1500 PO zyprexa Last Admin: 10/13/23 14:58 Dose: 5 mg Olanzapine (Olanzapine 10 Mg Tablet) 20 mg PO BEDTIME [facility] Last Admin: 12/31/23 20:08 Dose: 20 mg Polyethylene Glycol (Polyethylene Glycol 3350 17 Gm Powd.Pack) 17 gm PO DAILY PRN PRN Reason: Constipation Rilpivirine (Rilpivirine Hcl 25 Mg Tablet) 25 mg PO DAILY [facility] Last Admin: 01/01/24 08:58 Dose: 25 mg Thiamine HCl (Thiamine Hcl 100 Mg Tablet) 100 mg PO DAILY [facility] Last Admin: 01/01/24 08:59 Dose: 100 mg Trazodone HCl (Trazodone Hcl 50 Mg Tablet) 50 mg PO BEDTIME MRX1 PRN PRN Reason: Insomnia Last Admin: 12/22/23 19:55 Dose: 50 mg Allergies Allergies Allergy/AdvReac Type Severity Reaction Status Date / Time No Known Allergies Allergy Unverified 01/28/20 16:07 [No Known Allergies*] Assessment & Plan Assessment & Plan (1) Schizoaffective disorder, bipolar type: Status: Acute Code(s): F25.0 - Schizoaffective disorder, bipolar type Assessment and Plan: 11/01 mildly up - positive mood=- but less irritable than in past visits 11/02 CTP (2) Dementia: Status: Acute Code(s): F03.90 - Unspecified dementia, unspecified severity, without behavioral disturbance, psychotic disturbance, mood disturbance, and anxiety Assessment and Plan: 11/01 ongoing dementia continue with reorientation and distraction prn - (3) Noncompliance: Status: Acute Code(s): Z91.199 - Patient's noncompliance with other medical treatment and regimen due to unspecified reason Assessment and Plan: seems to be taking medication currently - watches nurse crush them and put in ice cream Plan The patient is an elderly male with a past history of schizoaffective disorder, dementia, HIV and other medical problems, chronically mentally ill resident of assisted living facility referred to this facility after he became non compliant with medications with daniella and psychosis. The patient was assessed by crisis and transferring to this facility for psychiatric stabilization. At the moment of the interview the patient was able to contract for safety. Plan 1. Gather collateral information. 2. Continue with regular medications, we are not going to change his Depakote, olanzapine and Haldol Decanoate. 3. Reassessment with results. 4. 15 minutes checks since the patient is able to contract for safety. 5. Change Zyprexa to Zydis to avoid cheeking on October 02. 6. IM zyprexa ordered 10 mg t.i.d. p.r.n. refusal of p.o. as per court order. Total dose up to 30 mg a day. 7. Zyprexa increased up to 15 mg p.o. q.h.s. to target daniella and psychosis. Started on October 15. Zyprexa was increased up to 20 mg p.o. q.h.s. on October 17. 8. Increase Haldol up to 5 mg p.o. t.i.d. on October 22 and keep Haldol Decanoate as per court order. On December 18 we lowered Haldol to 5 mg p.o. b.i.d. 9. Medical certificate issued. 10. Blood work f on November 18 without no changes. 11. Guardianship hearing for December 02 12. Waiting for placement Reason for continued inpatient stay Substantial Risk for: inability to function, rapid decompensation and med/psych decompensation Time Spent With Patient Time: Total time managing care of this patient today __20__ minutes.
[2024-01-01] MEDS: OLANZapine 10 MG TABLET 20 MG PO (19:51)
[2024-01-01] MEDS: Multivitamin TABLET 1 TAB PO (19:52)
[2024-01-01] MEDS: traZODone HCL 50 MG TABLET PO (19:52)
[2024-01-01] MEDS: Mirtazapine 15 MG TABLET PO (19:53)
[2024-01-01 20:00] VITALS: BP 103/70; PULSE 96; RESP 16; TEMP 36.2; O2SAT 93
[2024-01-02 07:00] VITALS: BMI 19.5
[2024-01-02 08:00] VITALS: BP 128/85; PULSE 94; RESP 18; TEMP 37; O2SAT 96
[2024-01-02] MEDS: amLODIPine Besylate 5 MG TABLET PO (08:22)
[2024-01-02] MEDS: levETIRAcetam 500 MG TABLET PO ×2 (08:22→20:20)
[2024-01-02] MEDS: Divalproex Sodium Sprinkles 125 MG CAP.DR.SPR 250 MG PO ×3 (08:22→20:20)
[2024-01-02] MEDS: OLANZapine 5 MG TABLET PO ×2 (08:22→14:59)
[2024-01-02] MEDS: Emtricitabin/Tenofovir 200/300 TABLET 1 TAB PO (08:22)
[2024-01-02] MEDS: Thiamine HCL 100 MG TABLET PO (08:22)
[2024-01-02] MEDS: Rilpivirine HCL 25 MG TABLET PO (08:22)
[2024-01-02] MEDS: HaloperidoL 5 MG TABLET PO ×2 (08:22→20:20)
--- NOTE | 2024-01-02 09:08 | P.PNPSI_ITS ---
Subjective Subjective Date of Service: 01/02/24 Reason For Visit: F32.9 Subjective Notes: Section 8 Interim History: Pt slept through the night. He is taking medications as prescribed. No overt psychosis or delusions. He is mostly in his room but at times does go to groups. No behavioral concerns. Review of Systems Review of Systems General: No fevers, malaise, unintentional weight loss HEENT: No blurred vision, diplopia. No sore throat, nasal congestion, rhinorrhea, sinus pain, ear pain Cardiovascular: No chest pain, palpitations, or leg edema Respiratory: No shortness of breath, wheezing, cough GI: No abdominal pain, nausea, vomiting, diarrhea, constipation, melena, hematochezia : No dysuria, hematuria, increased urinary frequency, decreased urinary output MSK: No myalgia, back pain Neuro: No headaches, weakness, paresthesias Skin: No rashes or lesions Yes all other systems are reviewed and are negative and Unobtainable due to mental status Mental Status Exam Mental Status Exam Patient Appearance: Well Grooomed Patient Orientation: Person and Situation Level of Consciousness: Awake and Appropriate Patient Behavior: Guarded and Passive Mood Description: Withdrawn Affect Description: Constricted Patient Cognition Impaired: Yes Ability to Follow Directions: Good Speech Pattern: Clear Diagnostics Vital Signs (24Hr): Vital Signs - 24 hr 01/01/24 20:00 Temperature 97.2 F Pulse Rate 96 Respiratory Rate 16 Blood Pressure 103/70 Pulse Oximetry 93 Oxygen Delivery Method Room Air BMI result Body Mass Index 19.2 Labs 11/19/23 08:03 11/19/23 08:03 Medications Medications Current Medications Acetaminophen (Acetaminophen 325 Mg Tablet) 650 mg PO Q6H PRN PRN Reason: Pain (Scale Score 1-3) Last Admin: 12/19/23 20:10 Dose: 650 mg Al Hydroxide/Mg Hydroxide (Magnesium Hydrox/Alum Hydrox 30 Ml Oral.Susp) 30 ml PO Q6H PRN PRN Reason: Heartburn/Nausea Last Admin: 11/12/23 06:20 Dose: 30 ml Albuterol Sulfate (Albuterol Sulfate 90 Mcg 8 Gm Inhaler) 2 puff INHALE RQ4H PRN PRN Reason: Wheezing Amlodipine Besylate (Amlodipine Besylate 5 Mg Tablet) 5 mg PO DAILY [facility]; Protocol Last Admin: 01/02/24 08:22 Dose: 5 mg Divalproex Sodium (Divalproex Sodium Sprinkles 125 Mg ) 250 mg PO TID [facility] Last Admin: 01/02/24 08:22 Dose: 250 mg Emtricitabine/Tenofovir (Emtricitabin/Tenofovir 200/300 Tablet) 1 tab PO DAILY [facility] Last Admin: 01/02/24 08:22 Dose: 1 tab Haloperidol (Haloperidol 5 Mg Tablet) 5 mg PO BID [facility] Last Admin: 01/02/24 08:22 Dose: 5 mg Haloperidol Decanoate (Haloperidol Decanoate 50 Mg/Ml Vial) 100 mg IM Q28D [facility] Last Admin: 12/23/23 21:14 Dose: 100 mg Levetiracetam (Levetiracetam 500 Mg Tablet) 500 mg PO BID [facility] Last Admin: 01/02/24 08:22 Dose: 500 mg Magnesium Hydroxide (Milk Of Magnesia 30 Ml Oral.Susp) 30 ml PO DAILY PRN PRN Reason: Constipation Mirtazapine (Mirtazapine 15 Mg Tablet) 15 mg PO BEDTIME [facility] Last Admin: 01/01/24 19:53 Dose: 15 mg Multivitamins/Vitamin C (Multivitamin Tablet) 1 tab PO BEDTIME [facility] Last Admin: 01/01/24 19:52 Dose: 1 tab Nicotine Polacrilex (Nicotine Polacrilex 2 Mg Gum) 4 mg BUCCAL Q2H PRN PRN Reason: Nicotine Cravings Olanzapine (Olanzapine 5 Mg Tablet) 5 mg PO BID@0800,1500 [facility] Last Admin: 01/02/24 08:22 Dose: 5 mg Olanzapine (Olanzapine 10 Mg Vial) 10 mg IM BEDTIME PRN PRN Reason: if refuses bedtime PO zyprexa Olanzapine (Olanzapine 10 Mg Vial) 5 mg IM BID@0800,1500 PRN PRN Reason: if refuses 0800/1500 PO zyprexa Last Admin: 10/13/23 14:58 Dose: 5 mg Olanzapine (Olanzapine 10 Mg Tablet) 20 mg PO BEDTIME [facility] Last Admin: 01/01/24 19:51 Dose: 20 mg Polyethylene Glycol (Polyethylene Glycol 3350 17 Gm Powd.Pack) 17 gm PO DAILY PRN PRN Reason: Constipation Rilpivirine (Rilpivirine Hcl 25 Mg Tablet) 25 mg PO DAILY [facility] Last Admin: 01/02/24 08:22 Dose: 25 mg Thiamine HCl (Thiamine Hcl 100 Mg Tablet) 100 mg PO DAILY [facility] Last Admin: 01/02/24 08:22 Dose: 100 mg Trazodone HCl (Trazodone Hcl 50 Mg Tablet) 50 mg PO BEDTIME MRX1 PRN PRN Reason: Insomnia Last Admin: 01/01/24 19:52 Dose: 50 mg Allergies Allergies Allergy/AdvReac Type Severity Reaction Status Date / Time No Known Allergies Allergy Unverified 01/28/20 16:07 [No Known Allergies*] Assessment & Plan Assessment & Plan (1) Schizoaffective disorder, bipolar type: Status: Acute Code(s): F25.0 - Schizoaffective disorder, bipolar type Assessment and Plan: 11/01 mildly up - positive mood=- but less irritable than in past visits 11/02 CTP (2) Dementia: Status: Acute Code(s): F03.90 - Unspecified dementia, unspecified severity, without behavioral disturbance, psychotic disturbance, mood disturbance, and anxiety Assessment and Plan: 11/01 ongoing dementia continue with reorientation and distraction prn - (3) Noncompliance: Status: Acute Code(s): Z91.199 - Patient's noncompliance with other medical treatment and regimen due to unspecified reason Assessment and Plan: seems to be taking medication currently - watches nurse crush them and put in ice cream Plan The patient is an elderly male with a past history of schizoaffective disorder, dementia, HIV and other medical problems, chronically mentally ill resident of assisted living facility referred to this facility after he became non compliant with medications with daniella and psychosis. The patient was assessed by crisis and transferring to this facility for psychiatric stabilization. At the moment of the interview the patient was able to contract for safety. Plan 01/01 continue tx. Reason for continued inpatient stay Substantial Risk for: inability to function Time Spent With Patient Time: Total time managing care of this patient today ____ minutes.
[2024-01-02 20:00] VITALS: BP 96/63; PULSE 82; RESP 16; TEMP 36.2; O2SAT 98
[2024-01-02] MEDS: Mirtazapine 15 MG TABLET PO (20:20)
[2024-01-02] MEDS: Multivitamin TABLET 1 TAB PO (20:20)
[2024-01-02] MEDS: OLANZapine 10 MG TABLET 20 MG PO (20:25)
[2024-01-03 08:00] VITALS: BP 134/96; PULSE 87; RESP 17; TEMP 36.3; O2SAT 95
--- NOTE | 2024-01-03 08:26 | P.PNPSI_ITS ---
Subjective Subjective Date of Service: 01/03/24 Reason For Visit: F32.9 Subjective Notes: Conditional Voluntary Interim History: Pt slept through the night. He is taking medications as prescribed. No overt psychosis or delusions. He is mostly in his room but at times does go to groups. No behavioral concerns. Review of Systems Review of Systems General: No fevers, malaise, unintentional weight loss HEENT: No blurred vision, diplopia. No sore throat, nasal congestion, rhinorrhea, sinus pain, ear pain Cardiovascular: No chest pain, palpitations, or leg edema Respiratory: No shortness of breath, wheezing, cough GI: No abdominal pain, nausea, vomiting, diarrhea, constipation, melena, hematochezia : No dysuria, hematuria, increased urinary frequency, decreased urinary output MSK: No myalgia, back pain Neuro: No headaches, weakness, paresthesias Skin: No rashes or lesions Yes all other systems are reviewed and are negative and Unobtainable due to mental status Mental Status Exam Mental Status Exam Patient Appearance: Well Grooomed Patient Orientation: Person and Situation Level of Consciousness: Awake and Appropriate Patient Behavior: Guarded and Passive Mood Description: Withdrawn Affect Description: Constricted Patient Cognition Impaired: Yes Ability to Follow Directions: Good Speech Pattern: Clear Diagnostics Vital Signs (24Hr): Vital Signs - 24 hr 01/02/24 20:00 Temperature 97.2 F Pulse Rate 82 Respiratory Rate 16 Blood Pressure 96/63 Pulse Oximetry 98 Oxygen Delivery Method Room Air BMI result Body Mass Index 19.5 Labs 11/19/23 08:03 11/19/23 08:03 Medications Medications Current Medications Acetaminophen (Acetaminophen 325 Mg Tablet) 650 mg PO Q6H PRN PRN Reason: Pain (Scale Score 1-3) Last Admin: 12/19/23 20:10 Dose: 650 mg Al Hydroxide/Mg Hydroxide (Magnesium Hydrox/Alum Hydrox 30 Ml Oral.Susp) 30 ml PO Q6H PRN PRN Reason: Heartburn/Nausea Last Admin: 11/12/23 06:20 Dose: 30 ml Albuterol Sulfate (Albuterol Sulfate 90 Mcg 8 Gm Inhaler) 2 puff INHALE RQ4H PRN PRN Reason: Wheezing Amlodipine Besylate (Amlodipine Besylate 5 Mg Tablet) 5 mg PO DAILY [facility]; Protocol Last Admin: 01/02/24 08:22 Dose: 5 mg Divalproex Sodium (Divalproex Sodium Sprinkles 125 Mg ) 250 mg PO TID [facility] Last Admin: 01/02/24 20:20 Dose: 250 mg Emtricitabine/Tenofovir (Emtricitabin/Tenofovir 200/300 Tablet) 1 tab PO DAILY [facility] Last Admin: 01/02/24 08:22 Dose: 1 tab Haloperidol (Haloperidol 5 Mg Tablet) 5 mg PO BID [facility] Last Admin: 01/02/24 20:20 Dose: 5 mg Haloperidol Decanoate (Haloperidol Decanoate 50 Mg/Ml Vial) 100 mg IM Q28D [facility] Last Admin: 12/23/23 21:14 Dose: 100 mg Levetiracetam (Levetiracetam 500 Mg Tablet) 500 mg PO BID [facility] Last Admin: 01/02/24 20:20 Dose: 500 mg Magnesium Hydroxide (Milk Of Magnesia 30 Ml Oral.Susp) 30 ml PO DAILY PRN PRN Reason: Constipation Mirtazapine (Mirtazapine 15 Mg Tablet) 15 mg PO BEDTIME [facility] Last Admin: 01/02/24 20:20 Dose: 15 mg Multivitamins/Vitamin C (Multivitamin Tablet) 1 tab PO BEDTIME [facility] Last Admin: 01/02/24 20:20 Dose: 1 tab Nicotine Polacrilex (Nicotine Polacrilex 2 Mg Gum) 4 mg BUCCAL Q2H PRN PRN Reason: Nicotine Cravings Olanzapine (Olanzapine 5 Mg Tablet) 5 mg PO BID@0800,1500 [facility] Last Admin: 01/02/24 14:59 Dose: 5 mg Olanzapine (Olanzapine 10 Mg Vial) 10 mg IM BEDTIME PRN PRN Reason: if refuses bedtime PO zyprexa Olanzapine (Olanzapine 10 Mg Vial) 5 mg IM BID@0800,1500 PRN PRN Reason: if refuses 0800/1500 PO zyprexa Last Admin: 10/13/23 14:58 Dose: 5 mg Olanzapine (Olanzapine 10 Mg Tablet) 20 mg PO BEDTIME [facility] Last Admin: 01/02/24 20:25 Dose: 20 mg Polyethylene Glycol (Polyethylene Glycol 3350 17 Gm Powd.Pack) 17 gm PO DAILY PRN PRN Reason: Constipation Rilpivirine (Rilpivirine Hcl 25 Mg Tablet) 25 mg PO DAILY [facility] Last Admin: 01/02/24 08:22 Dose: 25 mg Thiamine HCl (Thiamine Hcl 100 Mg Tablet) 100 mg PO DAILY [facility] Last Admin: 01/02/24 08:22 Dose: 100 mg Trazodone HCl (Trazodone Hcl 50 Mg Tablet) 50 mg PO BEDTIME MRX1 PRN PRN Reason: Insomnia Last Admin: 01/01/24 19:52 Dose: 50 mg Allergies Allergies Allergy/AdvReac Type Severity Reaction Status Date / Time No Known Allergies Allergy Unverified 01/28/20 16:07 [No Known Allergies*] Assessment & Plan Assessment & Plan (1) Schizoaffective disorder, bipolar type: Status: Acute Code(s): F25.0 - Schizoaffective disorder, bipolar type Assessment and Plan: 11/01 mildly up - positive mood=- but less irritable than in past visits 11/02 CTP (2) Dementia: Status: Acute Code(s): F03.90 - Unspecified dementia, unspecified severity, without behavioral disturbance, psychotic disturbance, mood disturbance, and anxiety Assessment and Plan: 11/01 ongoing dementia continue with reorientation and distraction prn - (3) Noncompliance: Status: Acute Code(s): Z91.199 - Patient's noncompliance with other medical treatment and regimen due to unspecified reason Assessment and Plan: seems to be taking medication currently - watches nurse crush them and put in ice cream Plan The patient is an elderly male with a past history of schizoaffective disorder, dementia, HIV and other medical problems, chronically mentally ill resident of assisted living facility referred to this facility after he became non compliant with medications with daniella and psychosis. The patient was assessed by crisis and transferring to this facility for psychiatric stabilization. At the moment of the interview the patient was able to contract for safety. Plan 01/01 continue tx. Reason for continued inpatient stay Substantial Risk for: inability to function Time Spent With Patient Time: Total time managing care of this patient today ____ minutes.
[2024-01-03] MEDS: levETIRAcetam 500 MG TABLET PO ×2 (08:53→20:43)
[2024-01-03] MEDS: Rilpivirine HCL 25 MG TABLET PO (08:53)
[2024-01-03] MEDS: Divalproex Sodium Sprinkles 125 MG CAP.DR.SPR 250 MG PO ×3 (08:53→20:43)
[2024-01-03] MEDS: OLANZapine 5 MG TABLET PO ×2 (08:53→15:58)
[2024-01-03] MEDS: Thiamine HCL 100 MG TABLET PO (08:54)
[2024-01-03] MEDS: amLODIPine Besylate 5 MG TABLET PO (08:54)
[2024-01-03] MEDS: HaloperidoL 5 MG TABLET PO ×2 (08:54→20:43)
[2024-01-03] MEDS: Emtricitabin/Tenofovir 200/300 TABLET 1 TAB PO (08:54)
[2024-01-03 20:00] VITALS: BP 95/60; PULSE 86; RESP 16; TEMP 36.6; O2SAT 94
[2024-01-03] MEDS: Multivitamin TABLET 1 TAB PO (20:42)
[2024-01-03] MEDS: OLANZapine 10 MG TABLET 20 MG PO (20:42)
[2024-01-03] MEDS: Mirtazapine 15 MG TABLET PO (20:43)
[2024-01-04 10:15] VITALS: BP 111/82; PULSE 110; RESP 16; TEMP 36.9; O2SAT 96
[2024-01-04] MEDS: Divalproex Sodium Sprinkles 125 MG CAP.DR.SPR 250 MG PO ×3 (10:16→20:32)
[2024-01-04] MEDS: HaloperidoL 5 MG TABLET PO ×2 (10:16→20:32)
[2024-01-04] MEDS: Thiamine HCL 100 MG TABLET PO (10:16)
[2024-01-04] MEDS: amLODIPine Besylate 5 MG TABLET PO (10:16)
[2024-01-04] MEDS: Emtricitabin/Tenofovir 200/300 TABLET 1 TAB PO (10:16)
[2024-01-04] MEDS: OLANZapine 5 MG TABLET PO ×2 (10:16→15:09)
[2024-01-04] MEDS: levETIRAcetam 500 MG TABLET PO ×2 (10:16→20:32)
[2024-01-04] MEDS: Rilpivirine HCL 25 MG TABLET PO (10:17)
[2024-01-04 20:00] VITALS: BP 106/65; PULSE 94; RESP 16; TEMP 36.3; O2SAT 94
[2024-01-04] MEDS: Multivitamin TABLET 1 TAB PO (20:32)
[2024-01-04] MEDS: OLANZapine 10 MG TABLET 20 MG PO (20:32)
[2024-01-04] MEDS: Mirtazapine 15 MG TABLET PO (20:32)
--- NOTE | 2024-01-04 21:03 | P.PNPSI_ITS ---
Subjective Subjective Date of Service: 01/04/24 Reason For Visit: F32.9 Subjective Notes: Conditional Voluntary Healthcare Proxy: No Guardianship: No Medical Problems Affecting Mental Status: Yes (dementia no change) Interim History: 68 yo AAM reports he is doing fine- denying any complaints - no side effects to medications- eating ok - says sleeping ok - Medication Compliance: Yes Side effects from medications: No Attending Groups: Intermittent Review of Systems Acute medical concerns: No Medical Review of Systems: unchanged Mental Status Exam Mental Status Exam Patient Appearance: Unkempt Patient Orientation: Person, Place and Situation Level of Consciousness: Awake Patient Behavior: Appropriate and Cooperative Mood Description: Calm Affect Description: Blunted Patient Cognition Impaired: Yes Ability to Follow Directions: Fair Speech Pattern: Clear Thought Process: Intact and Goal Oriented Thought Content: positive for Intact Judgement: Fair (-poor ) Diagnostics Vital Signs (24Hr): Vital Signs - 24 hr 01/04/24 10:15 01/04/24 20:00 Temperature 98.5 F 97.3 F Pulse Rate 110 H 94 Respiratory Rate 16 16 Blood Pressure 111/82 106/65 Pulse Oximetry 96 94 Oxygen Delivery Method Room Air Room Air BMI result Body Mass Index 19.5 Labs 11/19/23 08:03 11/19/23 08:03 Medications Medications Current Medications Acetaminophen (Acetaminophen 325 Mg Tablet) 650 mg PO Q6H PRN PRN Reason: Pain (Scale Score 1-3) Last Admin: 12/19/23 20:10 Dose: 650 mg Al Hydroxide/Mg Hydroxide (Magnesium Hydrox/Alum Hydrox 30 Ml Oral.Susp) 30 ml PO Q6H PRN PRN Reason: Heartburn/Nausea Last Admin: 11/12/23 06:20 Dose: 30 ml Albuterol Sulfate (Albuterol Sulfate 90 Mcg 8 Gm Inhaler) 2 puff INHALE RQ4H PRN PRN Reason: Wheezing Amlodipine Besylate (Amlodipine Besylate 5 Mg Tablet) 5 mg PO DAILY [facility]; Protocol Last Admin: 01/04/24 10:16 Dose: 5 mg Divalproex Sodium (Divalproex Sodium Sprinkles 125 Mg ) 250 mg PO TID [facility] Last Admin: 01/04/24 20:32 Dose: 250 mg Emtricitabine/Tenofovir (Emtricitabin/Tenofovir 200/300 Tablet) 1 tab PO DAILY [facility] Last Admin: 01/04/24 10:16 Dose: 1 tab Haloperidol (Haloperidol 5 Mg Tablet) 5 mg PO BID [facility] Last Admin: 01/04/24 20:32 Dose: 5 mg Haloperidol Decanoate (Haloperidol Decanoate 50 Mg/Ml Vial) 100 mg IM Q28D [facility] Last Admin: 12/23/23 21:14 Dose: 100 mg Levetiracetam (Levetiracetam 500 Mg Tablet) 500 mg PO BID [facility] Last Admin: 01/04/24 20:32 Dose: 500 mg Magnesium Hydroxide (Milk Of Magnesia 30 Ml Oral.Susp) 30 ml PO DAILY PRN PRN Reason: Constipation Mirtazapine (Mirtazapine 15 Mg Tablet) 15 mg PO BEDTIME [facility] Last Admin: 01/04/24 20:32 Dose: 15 mg Multivitamins/Vitamin C (Multivitamin Tablet) 1 tab PO BEDTIME [facility] Last Admin: 01/04/24 20:32 Dose: 1 tab Nicotine Polacrilex (Nicotine Polacrilex 2 Mg Gum) 4 mg BUCCAL Q2H PRN PRN Reason: Nicotine Cravings Olanzapine (Olanzapine 5 Mg Tablet) 5 mg PO BID@0800,1500 [facility] Last Admin: 01/04/24 15:09 Dose: 5 mg Olanzapine (Olanzapine 10 Mg Vial) 10 mg IM BEDTIME PRN PRN Reason: if refuses bedtime PO zyprexa Olanzapine (Olanzapine 10 Mg Vial) 5 mg IM BID@0800,1500 PRN PRN Reason: if refuses 0800/1500 PO zyprexa Last Admin: 10/13/23 14:58 Dose: 5 mg Olanzapine (Olanzapine 10 Mg Tablet) 20 mg PO BEDTIME [facility] Last Admin: 01/04/24 20:32 Dose: 20 mg Polyethylene Glycol (Polyethylene Glycol 3350 17 Gm Powd.Pack) 17 gm PO DAILY PRN PRN Reason: Constipation Rilpivirine (Rilpivirine Hcl 25 Mg Tablet) 25 mg PO DAILY [facility] Last Admin: 01/04/24 10:17 Dose: 25 mg Thiamine HCl (Thiamine Hcl 100 Mg Tablet) 100 mg PO DAILY [facility] Last Admin: 01/04/24 10:16 Dose: 100 mg Trazodone HCl (Trazodone Hcl 50 Mg Tablet) 50 mg PO BEDTIME MRX1 PRN PRN Reason: Insomnia Last Admin: 01/01/24 19:52 Dose: 50 mg Allergies Allergies Allergy/AdvReac Type Severity Reaction Status Date / Time No Known Allergies Allergy Unverified 01/28/20 16:07 [No Known Allergies*] Assessment & Plan Assessment & Plan (1) Schizoaffective disorder, bipolar type: Status: Acute Code(s): F25.0 - Schizoaffective disorder, bipolar type Assessment and Plan: 11/01 mildly up - positive mood=- but less irritable than in past visits 11/02 CTP (2) Dementia: Status: Acute Code(s): F03.90 - Unspecified dementia, unspecified severity, without behavioral disturbance, psychotic disturbance, mood disturbance, and anxiety Assessment and Plan: 11/01 ongoing dementia continue with reorientation and distraction prn - (3) Noncompliance: Status: Acute Code(s): Z91.199 - Patient's noncompliance with other medical treatment and regimen due to unspecified reason Assessment and Plan: seems to be taking medication currently - watches nurse crush them and put in ice cream Plan The patient is an elderly male with a past history of schizoaffective disorder, dementia, HIV and other medical problems, chronically mentally ill resident of assisted living facility referred to this facility after he became non compliant with medications with daniella and psychosis. The patient was assessed by crisis and transferring to this facility for psychiatric stabilization. At the moment of the interview the patient was able to contract for safety. Plan 01/01 continue tx. 01/03 stable CTP Reason for continued inpatient stay Substantial Risk for: inability to function Time Spent With Patient Time: Total time managing care of this patient today ____ minutes.
[2024-01-05 10:57] VITALS: BP 88/67; PULSE 84; RESP 15; TEMP 36.7; O2SAT 93
[2024-01-05] MEDS: OLANZapine 5 MG TABLET PO ×2 (10:58→15:25)
[2024-01-05] MEDS: Rilpivirine HCL 25 MG TABLET PO (10:58)
[2024-01-05] MEDS: Emtricitabin/Tenofovir 200/300 TABLET 1 TAB PO (10:58)
[2024-01-05] MEDS: HaloperidoL 5 MG TABLET PO ×2 (10:58→20:22)
[2024-01-05] MEDS: Divalproex Sodium Sprinkles 125 MG CAP.DR.SPR 250 MG PO ×3 (10:58→20:22)
[2024-01-05] MEDS: Thiamine HCL 100 MG TABLET PO (10:58)
[2024-01-05] MEDS: levETIRAcetam 500 MG TABLET PO ×2 (10:58→20:22)
[2024-01-05 11:00] VITALS: BP 104/74
--- NOTE | 2024-01-05 14:54 | P.PNPSI_ITS ---
Subjective Subjective Date of Service: 01/05/24 Reason For Visit: F32.9 Subjective Notes: Conditional Voluntary Healthcare Proxy: No Guardianship: No Medical Problems Affecting Mental Status: Yes (dementia) Interim History: Patient reporting not sleeping that well - otherwise doing ok - would like night medicine adjustment- Eating ok, energy ok - no si/hi/psychosis no longer talking about grandiosity or hypersexuality on unit, no recent lability Medication Compliance: Yes Side effects from medications: No Attending Groups: Intermittent Review of Systems Acute medical concerns: No Medical Review of Systems: unchanged Mental Status Exam Mental Status Exam Patient Appearance: Unkempt Patient Orientation: Person and Place Level of Consciousness: Awake Patient Behavior: Appropriate and Cooperative Mood Description: Calm Affect Description: Blunted Patient Cognition Impaired: Yes Ability to Follow Directions: Fair Thought Process: Intact and Goal Oriented Depressive Symptoms: Difficulty Sleeping Judgement: Fair Diagnostics Vital Signs (24Hr): Vital Signs - 24 hr 01/04/24 20:00 01/05/24 10:57 01/05/24 11:00 Temperature 97.3 F 98.1 F Pulse Rate 94 84 Respiratory Rate 16 15 Blood Pressure 106/65 88/67 L 104/74 Pulse Oximetry 94 93 Oxygen Delivery Method Room Air Room Air BMI result Body Mass Index 19.5 Labs 11/19/23 08:03 11/19/23 08:03 Medications Medications Current Medications Acetaminophen (Acetaminophen 325 Mg Tablet) 650 mg PO Q6H PRN PRN Reason: Pain (Scale Score 1-3) Last Admin: 12/19/23 20:10 Dose: 650 mg Al Hydroxide/Mg Hydroxide (Magnesium Hydrox/Alum Hydrox 30 Ml Oral.Susp) 30 ml PO Q6H PRN PRN Reason: Heartburn/Nausea Last Admin: 11/12/23 06:20 Dose: 30 ml Albuterol Sulfate (Albuterol Sulfate 90 Mcg 8 Gm Inhaler) 2 puff INHALE RQ4H PRN PRN Reason: Wheezing Amlodipine Besylate (Amlodipine Besylate 5 Mg Tablet) 5 mg PO DAILY [facility]; Protocol Last Admin: 01/05/24 10:59 Dose: Not Given Divalproex Sodium (Divalproex Sodium Sprinkles 125 Mg ) 250 mg PO TID [facility] Last Admin: 01/05/24 10:58 Dose: 250 mg Emtricitabine/Tenofovir (Emtricitabin/Tenofovir 200/300 Tablet) 1 tab PO DAILY [facility] Last Admin: 01/05/24 10:58 Dose: 1 tab Haloperidol (Haloperidol 5 Mg Tablet) 5 mg PO BID [facility] Last Admin: 01/05/24 10:58 Dose: 5 mg Haloperidol Decanoate (Haloperidol Decanoate 50 Mg/Ml Vial) 100 mg IM Q28D [facility] Last Admin: 12/23/23 21:14 Dose: 100 mg Levetiracetam (Levetiracetam 500 Mg Tablet) 500 mg PO BID [facility] Last Admin: 01/05/24 10:58 Dose: 500 mg Magnesium Hydroxide (Milk Of Magnesia 30 Ml Oral.Susp) 30 ml PO DAILY PRN PRN Reason: Constipation Mirtazapine (Mirtazapine 15 Mg Tablet) 15 mg PO BEDTIME [facility] Last Admin: 01/04/24 20:32 Dose: 15 mg Multivitamins/Vitamin C (Multivitamin Tablet) 1 tab PO BEDTIME [facility] Last Admin: 01/04/24 20:32 Dose: 1 tab Nicotine Polacrilex (Nicotine Polacrilex 2 Mg Gum) 4 mg BUCCAL Q2H PRN PRN Reason: Nicotine Cravings Olanzapine (Olanzapine 5 Mg Tablet) 5 mg PO BID@0800,1500 [facility] Last Admin: 01/05/24 10:58 Dose: 5 mg Olanzapine (Olanzapine 10 Mg Vial) 10 mg IM BEDTIME PRN PRN Reason: if refuses bedtime PO zyprexa Olanzapine (Olanzapine 10 Mg Vial) 5 mg IM BID@0800,1500 PRN PRN Reason: if refuses 0800/1500 PO zyprexa Last Admin: 10/13/23 14:58 Dose: 5 mg Olanzapine (Olanzapine 10 Mg Tablet) 20 mg PO BEDTIME [facility] Last Admin: 01/04/24 20:32 Dose: 20 mg Polyethylene Glycol (Polyethylene Glycol 3350 17 Gm Powd.Pack) 17 gm PO DAILY PRN PRN Reason: Constipation Rilpivirine (Rilpivirine Hcl 25 Mg Tablet) 25 mg PO DAILY [facility] Last Admin: 01/05/24 10:58 Dose: 25 mg Thiamine HCl (Thiamine Hcl 100 Mg Tablet) 100 mg PO DAILY [facility] Last Admin: 01/05/24 10:58 Dose: 100 mg Trazodone HCl (Trazodone Hcl 50 Mg Tablet) 50 mg PO BEDTIME MRX1 PRN PRN Reason: Insomnia Last Admin: 01/01/24 19:52 Dose: 50 mg Allergies Allergies Allergy/AdvReac Type Severity Reaction Status Date / Time No Known Allergies Allergy Unverified 01/28/20 16:07 [No Known Allergies*] Assessment & Plan Assessment & Plan (1) Schizoaffective disorder, bipolar type: Status: Acute Code(s): F25.0 - Schizoaffective disorder, bipolar type Assessment and Plan: 11/01 mildly up - positive mood=- but less irritable than in past visits 11/02 CTP (2) Dementia: Status: Acute Code(s): F03.90 - Unspecified dementia, unspecified severity, without behavioral disturbance, psychotic disturbance, mood disturbance, and anxiety Assessment and Plan: 11/01 ongoing dementia continue with reorientation and distraction prn - (3) Noncompliance: Status: Acute Code(s): Z91.199 - Patient's noncompliance with other medical treatment and regimen due to unspecified reason Assessment and Plan: seems to be taking medication currently - watches nurse crush them and put in ice cream Plan The patient is an elderly male with a past history of schizoaffective disorder, dementia, HIV and other medical problems, chronically mentally ill resident of assisted living facility referred to this facility after he became non compliant with medications with daniella and psychosis. The patient was assessed by crisis and transferring to this facility for psychiatric stabilization. At the moment of the interview the patient was able to contract for safety. Plan 01/01 continue tx. 01/04 maybe change trazodone to nightly - scheduled- Patient educated on: medication risk/benefits Informed Consent: understands Reason for continued inpatient stay Substantial Risk for: inability to function and rapid decompensation Time Spent With Patient Time: Total time managing care of this patient today ____ minutes.
[2024-01-05 20:00] VITALS: BP 95/59; PULSE 85; RESP 18; TEMP 36.6; O2SAT 97
[2024-01-05] MEDS: traZODone HCL 50 MG TABLET PO (20:22)
[2024-01-05] MEDS: OLANZapine 10 MG TABLET 20 MG PO (20:22)
[2024-01-05] MEDS: Multivitamin TABLET 1 TAB PO (20:22)
[2024-01-05] MEDS: Mirtazapine 15 MG TABLET PO (20:22)
[2024-01-06 08:00] VITALS: BP 128/71; PULSE 92; RESP 18; TEMP 36.2; O2SAT 97
[2024-01-06] MEDS: Rilpivirine HCL 25 MG TABLET PO (08:39)
[2024-01-06 08:40] VITALS: BP 128/71
[2024-01-06] MEDS: amLODIPine Besylate 5 MG TABLET PO (08:40)
[2024-01-06] MEDS: HaloperidoL 5 MG TABLET PO ×2 (08:40→20:05)
[2024-01-06] MEDS: OLANZapine 5 MG TABLET PO ×2 (08:40→14:37)
[2024-01-06] MEDS: Thiamine HCL 100 MG TABLET PO (08:40)
[2024-01-06] MEDS: levETIRAcetam 500 MG TABLET PO ×2 (08:40→20:05)
[2024-01-06] MEDS: Emtricitabin/Tenofovir 200/300 TABLET 1 TAB PO (08:40)
[2024-01-06] MEDS: Divalproex Sodium Sprinkles 125 MG CAP.DR.SPR 250 MG PO ×3 (08:40→20:05)
--- NOTE | 2024-01-06 14:27 | HO.PSYCHPN ---
Subjective Subjective Date of Service: 01/06/24 Reason For Visit: F32.9 Subjective Notes: Conditional Voluntary Interim History: The nursing staff reported the patient had been withdrawn, he has attended a few groups pleasant cooperative slept 7 hours. The protective services social worker reported that [facility] is now involved. On interview the patient denies new symptoms, waiting for placement. Mental Status Exam Mental Status Exam Patient Appearance: Well Grooomed and Appropriate Patient Orientation: Person and Situation Level of Consciousness: Awake and Appropriate Patient Behavior: Guarded and Passive Mood Description: Withdrawn Affect Description: Constricted Patient Cognition Impaired: Yes Ability to Follow Directions: Good Speech Pattern: Clear Hallucinations: None Delusions: Not Present Thought Process: Distracted and Slowed Thinking Thought Content: positive for [place] and positive for Poverty of Content Judgement: Fair Diagnostics Vital Signs (24Hr): Vital Signs - 24 hr 01/05/24 20:00 01/06/24 08:00 01/06/24 08:40 Temperature 97.9 F 97.1 F Pulse Rate 85 92 Respiratory Rate 18 18 Blood Pressure 95/59 L 128/71 128/71 Pulse Oximetry 97 97 Oxygen Delivery Method Room Air BMI result Body Mass Index 19.5 Labs 11/19/23 08:03 11/19/23 08:03 Medications Medications Current Medications Acetaminophen (Acetaminophen 325 Mg Tablet) 650 mg PO Q6H PRN PRN Reason: Pain (Scale Score 1-3) Last Admin: 12/19/23 20:10 Dose: 650 mg Al Hydroxide/Mg Hydroxide (Magnesium Hydrox/Alum Hydrox 30 Ml Oral.Susp) 30 ml PO Q6H PRN PRN Reason: Heartburn/Nausea Last Admin: 11/12/23 06:20 Dose: 30 ml Albuterol Sulfate (Albuterol Sulfate 90 Mcg 8 Gm Inhaler) 2 puff INHALE RQ4H PRN PRN Reason: Wheezing Amlodipine Besylate (Amlodipine Besylate 5 Mg Tablet) 5 mg PO DAILY [facility]; Protocol Last Admin: 01/06/24 08:40 Dose: 5 mg Divalproex Sodium (Divalproex Sodium Sprinkles 125 Mg ) 250 mg PO TID [facility] Last Admin: 01/06/24 08:40 Dose: 250 mg Emtricitabine/Tenofovir (Emtricitabin/Tenofovir 200/300 Tablet) 1 tab PO DAILY [facility] Last Admin: 01/06/24 08:40 Dose: 1 tab Haloperidol (Haloperidol 5 Mg Tablet) 5 mg PO BID [facility] Last Admin: 01/06/24 08:40 Dose: 5 mg Haloperidol Decanoate (Haloperidol Decanoate 50 Mg/Ml Vial) 100 mg IM Q28D [facility] Last Admin: 12/23/23 21:14 Dose: 100 mg Levetiracetam (Levetiracetam 500 Mg Tablet) 500 mg PO BID [facility] Last Admin: 01/06/24 08:40 Dose: 500 mg Magnesium Hydroxide (Milk Of Magnesia 30 Ml Oral.Susp) 30 ml PO DAILY PRN PRN Reason: Constipation Mirtazapine (Mirtazapine 15 Mg Tablet) 15 mg PO BEDTIME [facility] Last Admin: 01/05/24 20:22 Dose: 15 mg Multivitamins/Vitamin C (Multivitamin Tablet) 1 tab PO BEDTIME [facility] Last Admin: 01/05/24 20:22 Dose: 1 tab Nicotine Polacrilex (Nicotine Polacrilex 2 Mg Gum) 4 mg BUCCAL Q2H PRN PRN Reason: Nicotine Cravings Olanzapine (Olanzapine 5 Mg Tablet) 5 mg PO BID@0800,1500 [facility] Last Admin: 01/06/24 08:40 Dose: 5 mg Olanzapine (Olanzapine 10 Mg Vial) 10 mg IM BEDTIME PRN PRN Reason: if refuses bedtime PO zyprexa Olanzapine (Olanzapine 10 Mg Vial) 5 mg IM BID@0800,1500 PRN PRN Reason: if refuses 0800/1500 PO zyprexa Last Admin: 10/13/23 14:58 Dose: 5 mg Olanzapine (Olanzapine 10 Mg Tablet) 20 mg PO BEDTIME [facility] Last Admin: 01/05/24 20:22 Dose: 20 mg Polyethylene Glycol (Polyethylene Glycol 3350 17 Gm Powd.Pack) 17 gm PO DAILY PRN PRN Reason: Constipation Rilpivirine (Rilpivirine Hcl 25 Mg Tablet) 25 mg PO DAILY [facility] Last Admin: 01/06/24 08:39 Dose: 25 mg Thiamine HCl (Thiamine Hcl 100 Mg Tablet) 100 mg PO DAILY [facility] Last Admin: 01/06/24 08:40 Dose: 100 mg Trazodone HCl (Trazodone Hcl 50 Mg Tablet) 50 mg PO BEDTIME MRX1 [facility] Last Admin: 01/06/24 01:08 Dose: Not Given Allergies Allergies Allergy/AdvReac Type Severity Reaction Status Date / Time No Known Allergies Allergy Unverified 01/28/20 16:07 [No Known Allergies*] Assessment & Plan Assessment & Plan (1) Schizoaffective disorder, bipolar type: Status: Acute Code(s): F25.0 - Schizoaffective disorder, bipolar type Assessment and Plan: 11/01 mildly up - positive mood=- but less irritable than in past visits 11/02 CTP (2) Dementia: Status: Acute Code(s): F03.90 - Unspecified dementia, unspecified severity, without behavioral disturbance, psychotic disturbance, mood disturbance, and anxiety Assessment and Plan: 11/01 ongoing dementia continue with reorientation and distraction prn - (3) Noncompliance: Status: Acute Code(s): Z91.199 - Patient's noncompliance with other medical treatment and regimen due to unspecified reason Assessment and Plan: seems to be taking medication currently - watches nurse crush them and put in ice cream Plan The patient is an elderly male with a past history of schizoaffective disorder, dementia, HIV and other medical problems, chronically mentally ill resident of assisted living facility referred to this facility after he became non compliant with medications with daniella and psychosis. The patient was assessed by crisis and transferring to this facility for psychiatric stabilization. At the moment of the interview the patient was able to contract for safety. Plan 1. Continue with same treatment. 2. Waiting for placement Reason for continued inpatient stay Substantial Risk for: inability to function, rapid decompensation and med/psych decompensation Time Spent With Patient Time: Total time managing care of this patient today __20__ minutes.
[2024-01-06 20:00] VITALS: BP 103/69; PULSE 90; RESP 18; TEMP 36.2; O2SAT 92
[2024-01-06] MEDS: Multivitamin TABLET 1 TAB PO (20:05)
[2024-01-06] MEDS: Mirtazapine 15 MG TABLET PO (20:05)
[2024-01-06] MEDS: traZODone HCL 50 MG TABLET PO (20:05)
[2024-01-06] MEDS: OLANZapine 10 MG TABLET 20 MG PO (20:05)
[2024-01-07 08:00] VITALS: BP 118/81; PULSE 94; RESP 18; TEMP 36.8; O2SAT 95
[2024-01-07] MEDS: levETIRAcetam 500 MG TABLET PO ×2 (08:13→19:58)
[2024-01-07] MEDS: Thiamine HCL 100 MG TABLET PO (08:13)
[2024-01-07] MEDS: amLODIPine Besylate 5 MG TABLET PO (08:13)
[2024-01-07] MEDS: Emtricitabin/Tenofovir 200/300 TABLET 1 TAB PO (08:13)
[2024-01-07] MEDS: Divalproex Sodium Sprinkles 125 MG CAP.DR.SPR 250 MG PO ×3 (08:13→19:58)
[2024-01-07] MEDS: Rilpivirine HCL 25 MG TABLET PO (08:13)
[2024-01-07] MEDS: OLANZapine 5 MG TABLET PO ×2 (08:14→14:56)
[2024-01-07] MEDS: HaloperidoL 5 MG TABLET PO ×2 (08:14→19:58)
--- NOTE | 2024-01-07 12:13 | P.PNPSI_ITS ---
Subjective Subjective Date of Service: 01/07/24 Reason For Visit: F32.9 Subjective Notes: Conditional Voluntary Healthcare Proxy: Yes Guardianship: Yes Interim History: The nursing staff reported the patient had been compliant with treatment no changes in his behavior. He was seen watching TV at times. On interview the patient denies new symptoms, waiting for placement. Mental Status Exam Mental Status Exam Patient Appearance: Appropriate and Unkempt Patient Orientation: Person and Situation Level of Consciousness: Awake and Appropriate Patient Behavior: Guarded and Passive Mood Description: Withdrawn Affect Description: Constricted Patient Cognition Impaired: Yes Ability to Follow Directions: Good Speech Pattern: Clear Hallucinations: None Delusions: Not Present Thought Process: Distracted and Slowed Thinking Thought Content: positive for [place] and positive for Poverty of Content Judgement: Poor Diagnostics Vital Signs (24Hr): Vital Signs - 24 hr 01/06/24 20:00 01/07/24 08:00 Temperature 97.1 F 98.2 F Pulse Rate 90 94 Respiratory Rate 18 18 Blood Pressure 103/69 118/81 Pulse Oximetry 92 95 Oxygen Delivery Method Room Air Room Air BMI result Body Mass Index 19.5 Labs 11/19/23 08:03 11/19/23 08:03 Medications Medications Current Medications Acetaminophen (Acetaminophen 325 Mg Tablet) 650 mg PO Q6H PRN PRN Reason: Pain (Scale Score 1-3) Last Admin: 12/19/23 20:10 Dose: 650 mg Al Hydroxide/Mg Hydroxide (Magnesium Hydrox/Alum Hydrox 30 Ml Oral.Susp) 30 ml PO Q6H PRN PRN Reason: Heartburn/Nausea Last Admin: 11/12/23 06:20 Dose: 30 ml Albuterol Sulfate (Albuterol Sulfate 90 Mcg 8 Gm Inhaler) 2 puff INHALE RQ4H PRN PRN Reason: Wheezing Amlodipine Besylate (Amlodipine Besylate 5 Mg Tablet) 5 mg PO DAILY [facility]; Protocol Last Admin: 01/07/24 08:13 Dose: 5 mg Divalproex Sodium (Divalproex Sodium Sprinkles 125 Mg ) 250 mg PO TID [facility] Last Admin: 01/07/24 08:13 Dose: 250 mg Emtricitabine/Tenofovir (Emtricitabin/Tenofovir 200/300 Tablet) 1 tab PO DAILY [facility] Last Admin: 01/07/24 08:13 Dose: 1 tab Haloperidol (Haloperidol 5 Mg Tablet) 5 mg PO BID [facility] Last Admin: 01/07/24 08:14 Dose: 5 mg Haloperidol Decanoate (Haloperidol Decanoate 50 Mg/Ml Vial) 100 mg IM Q28D [facility] Last Admin: 12/23/23 21:14 Dose: 100 mg Levetiracetam (Levetiracetam 500 Mg Tablet) 500 mg PO BID [facility] Last Admin: 01/07/24 08:13 Dose: 500 mg Magnesium Hydroxide (Milk Of Magnesia 30 Ml Oral.Susp) 30 ml PO DAILY PRN PRN Reason: Constipation Mirtazapine (Mirtazapine 15 Mg Tablet) 15 mg PO BEDTIME [facility] Last Admin: 01/06/24 20:05 Dose: 15 mg Multivitamins/Vitamin C (Multivitamin Tablet) 1 tab PO BEDTIME [facility] Last Admin: 01/06/24 20:05 Dose: 1 tab Nicotine Polacrilex (Nicotine Polacrilex 2 Mg Gum) 4 mg BUCCAL Q2H PRN PRN Reason: Nicotine Cravings Olanzapine (Olanzapine 5 Mg Tablet) 5 mg PO BID@0800,1500 [facility] Last Admin: 01/07/24 08:14 Dose: 5 mg Olanzapine (Olanzapine 10 Mg Vial) 10 mg IM BEDTIME PRN PRN Reason: if refuses bedtime PO zyprexa Olanzapine (Olanzapine 10 Mg Vial) 5 mg IM BID@0800,1500 PRN PRN Reason: if refuses 0800/1500 PO zyprexa Last Admin: 10/13/23 14:58 Dose: 5 mg Olanzapine (Olanzapine 10 Mg Tablet) 20 mg PO BEDTIME [facility] Last Admin: 01/06/24 20:05 Dose: 20 mg Polyethylene Glycol (Polyethylene Glycol 3350 17 Gm Powd.Pack) 17 gm PO DAILY PRN PRN Reason: Constipation Rilpivirine (Rilpivirine Hcl 25 Mg Tablet) 25 mg PO DAILY [facility] Last Admin: 01/07/24 08:13 Dose: 25 mg Thiamine HCl (Thiamine Hcl 100 Mg Tablet) 100 mg PO DAILY [facility] Last Admin: 01/07/24 08:13 Dose: 100 mg Trazodone HCl (Trazodone Hcl 50 Mg Tablet) 50 mg PO BEDTIME MRX1 [facility] Last Admin: 01/07/24 04:25 Dose: Not Given Allergies Allergies Allergy/AdvReac Type Severity Reaction Status Date / Time No Known Allergies Allergy Unverified 01/28/20 16:07 [No Known Allergies*] Assessment & Plan Assessment & Plan (1) Schizoaffective disorder, bipolar type: Status: Acute Code(s): F25.0 - Schizoaffective disorder, bipolar type Assessment and Plan: 11/01 mildly up - positive mood=- but less irritable than in past visits 11/02 CTP (2) Dementia: Status: Acute Code(s): F03.90 - Unspecified dementia, unspecified severity, without behavioral disturbance, psychotic disturbance, mood disturbance, and anxiety Assessment and Plan: 11/01 ongoing dementia continue with reorientation and distraction prn - (3) Noncompliance: Status: Acute Code(s): Z91.199 - Patient's noncompliance with other medical treatment and regimen due to unspecified reason Assessment and Plan: seems to be taking medication currently - watches nurse crush them and put in ice cream Plan The patient is an elderly male with a past history of schizoaffective disorder, dementia, HIV and other medical problems, chronically mentally ill resident of assisted living facility referred to this facility after he became non compliant with medications with daniella and psychosis. The patient was assessed by crisis and transferring to this facility for psychiatric stabilization. At the moment of the interview the patient was able to contract for safety. Plan 1. Continue with same treatment. 2. Waiting for placement Reason for continued inpatient stay Substantial Risk for: inability to function, rapid decompensation and med/psych decompensation Time Spent With Patient Time: Total time managing care of this patient today __20__ minutes.
[2024-01-07] MEDS: OLANZapine 10 MG TABLET 20 MG PO (19:57)
[2024-01-07] MEDS: traZODone HCL 50 MG TABLET PO ×2 (19:57→20:02)
[2024-01-07] MEDS: Multivitamin TABLET 1 TAB PO (19:57)
[2024-01-07 20:00] VITALS: BP 99/65; PULSE 96; RESP 16; TEMP 36.4; O2SAT 92
[2024-01-07] MEDS: Mirtazapine 15 MG TABLET PO (20:00)
[2024-01-08 07:55] VITALS: BP 112/69; PULSE 94; RESP 18; TEMP 36.6; O2SAT 94
[2024-01-08] MEDS: Rilpivirine HCL 25 MG TABLET PO (08:16)
[2024-01-08] MEDS: OLANZapine 5 MG TABLET PO ×2 (08:17→14:34)
[2024-01-08] MEDS: amLODIPine Besylate 5 MG TABLET PO (08:17)
[2024-01-08] MEDS: levETIRAcetam 500 MG TABLET PO ×2 (08:17→20:41)
[2024-01-08] MEDS: Thiamine HCL 100 MG TABLET PO (08:17)
[2024-01-08] MEDS: Emtricitabin/Tenofovir 200/300 TABLET 1 TAB PO (08:17)
[2024-01-08] MEDS: HaloperidoL 5 MG TABLET PO ×2 (08:17→20:41)
[2024-01-08] MEDS: Divalproex Sodium Sprinkles 125 MG CAP.DR.SPR 250 MG PO ×3 (08:17→20:41)
--- NOTE | 2024-01-08 12:32 | P.PNPSI_ITS ---
Subjective Subjective Date of Service: 01/08/24 Reason For Visit: F32.9 Subjective Notes: Conditional Voluntary Interim History: The nursing staff reported the patient had been compliant with treatment, slept 8 hours. On interview the patient denies new symptoms, waiting for placement. Mental Status Exam Mental Status Exam Patient Appearance: Appropriate Patient Orientation: Person and Situation Level of Consciousness: Awake Patient Behavior: Guarded and Passive Mood Description: Withdrawn Affect Description: Constricted Patient Cognition Impaired: Yes Ability to Follow Directions: Good Speech Pattern: Clear Hallucinations: None Delusions: Ideas of Reference Thought Process: Distracted and Slowed Thinking Thought Content: positive for [place] and positive for Poverty of Content Judgement: Fair Diagnostics Vital Signs (24Hr): Vital Signs - 24 hr 01/07/24 20:00 01/08/24 07:55 Temperature 97.6 F 97.9 F Pulse Rate 96 94 Respiratory Rate 16 18 Blood Pressure 99/65 112/69 Pulse Oximetry 92 94 Oxygen Delivery Method Room Air Room Air BMI result Body Mass Index 19.5 Labs 11/19/23 08:03 11/19/23 08:03 Medications Medications Current Medications Acetaminophen (Acetaminophen 325 Mg Tablet) 650 mg PO Q6H PRN PRN Reason: Pain (Scale Score 1-3) Last Admin: 12/19/23 20:10 Dose: 650 mg Al Hydroxide/Mg Hydroxide (Magnesium Hydrox/Alum Hydrox 30 Ml Oral.Susp) 30 ml PO Q6H PRN PRN Reason: Heartburn/Nausea Last Admin: 11/12/23 06:20 Dose: 30 ml Albuterol Sulfate (Albuterol Sulfate 90 Mcg 8 Gm Inhaler) 2 puff INHALE RQ4H PRN PRN Reason: Wheezing Amlodipine Besylate (Amlodipine Besylate 5 Mg Tablet) 5 mg PO DAILY [facility]; Protocol Last Admin: 01/08/24 08:17 Dose: 5 mg Divalproex Sodium (Divalproex Sodium Sprinkles 125 Mg ) 250 mg PO TID [facility] Last Admin: 01/08/24 08:17 Dose: 250 mg Emtricitabine/Tenofovir (Emtricitabin/Tenofovir 200/300 Tablet) 1 tab PO DAILY [facility] Last Admin: 01/08/24 08:17 Dose: 1 tab Haloperidol (Haloperidol 5 Mg Tablet) 5 mg PO BID [facility] Last Admin: 01/08/24 08:17 Dose: 5 mg Haloperidol Decanoate (Haloperidol Decanoate 50 Mg/Ml Vial) 100 mg IM Q28D [facility] Last Admin: 12/23/23 21:14 Dose: 100 mg Levetiracetam (Levetiracetam 500 Mg Tablet) 500 mg PO BID [facility] Last Admin: 01/08/24 08:17 Dose: 500 mg Magnesium Hydroxide (Milk Of Magnesia 30 Ml Oral.Susp) 30 ml PO DAILY PRN PRN Reason: Constipation Mirtazapine (Mirtazapine 15 Mg Tablet) 15 mg PO BEDTIME [facility] Last Admin: 01/07/24 20:00 Dose: 15 mg Multivitamins/Vitamin C (Multivitamin Tablet) 1 tab PO BEDTIME [facility] Last Admin: 01/07/24 19:57 Dose: 1 tab Nicotine Polacrilex (Nicotine Polacrilex 2 Mg Gum) 4 mg BUCCAL Q2H PRN PRN Reason: Nicotine Cravings Olanzapine (Olanzapine 5 Mg Tablet) 5 mg PO BID@0800,1500 [facility] Last Admin: 01/08/24 08:17 Dose: 5 mg Olanzapine (Olanzapine 10 Mg Vial) 10 mg IM BEDTIME PRN PRN Reason: if refuses bedtime PO zyprexa Olanzapine (Olanzapine 10 Mg Vial) 5 mg IM BID@0800,1500 PRN PRN Reason: if refuses 0800/1500 PO zyprexa Last Admin: 10/13/23 14:58 Dose: 5 mg Olanzapine (Olanzapine 10 Mg Tablet) 20 mg PO BEDTIME [facility] Last Admin: 01/07/24 19:57 Dose: 20 mg Polyethylene Glycol (Polyethylene Glycol 3350 17 Gm Powd.Pack) 17 gm PO DAILY PRN PRN Reason: Constipation Rilpivirine (Rilpivirine Hcl 25 Mg Tablet) 25 mg PO DAILY [facility] Last Admin: 01/08/24 08:16 Dose: 25 mg Thiamine HCl (Thiamine Hcl 100 Mg Tablet) 100 mg PO DAILY [facility] Last Admin: 01/08/24 08:17 Dose: 100 mg Trazodone HCl (Trazodone Hcl 50 Mg Tablet) 50 mg PO BEDTIME MRX1 [facility] Last Admin: 01/07/24 20:02 Dose: 50 mg Allergies Allergies Allergy/AdvReac Type Severity Reaction Status Date / Time No Known Allergies Allergy Unverified 01/28/20 16:07 [No Known Allergies*] Assessment & Plan Assessment & Plan (1) Schizoaffective disorder, bipolar type: Status: Acute Code(s): F25.0 - Schizoaffective disorder, bipolar type Assessment and Plan: 11/01 mildly up - positive mood=- but less irritable than in past visits 11/02 CTP (2) Dementia: Status: Acute Code(s): F03.90 - Unspecified dementia, unspecified severity, without behavioral disturbance, psychotic disturbance, mood disturbance, and anxiety Assessment and Plan: 11/01 ongoing dementia continue with reorientation and distraction prn - (3) Noncompliance: Status: Acute Code(s): Z91.199 - Patient's noncompliance with other medical treatment and regimen due to unspecified reason Assessment and Plan: seems to be taking medication currently - watches nurse crush them and put in ice cream Plan The patient is an elderly male with a past history of schizoaffective disorder, dementia, HIV and other medical problems, chronically mentally ill resident of assisted living facility referred to this facility after he became non compliant with medications with daniella and psychosis. The patient was assessed by crisis and transferring to this facility for psychiatric stabilization. At the moment of the interview the patient was able to contract for safety. Plan 1. Continue with same treatment. 2. Waiting for placement Reason for continued inpatient stay Substantial Risk for: inability to function, rapid decompensation and med/psych decompensation Time Spent With Patient Time: Total time managing care of this patient today __20__ minutes.
[2024-01-08 20:00] VITALS: BP 116/74; PULSE 91; RESP 18; TEMP 36.2; O2SAT 94
[2024-01-08] MEDS: traZODone HCL 50 MG TABLET PO ×2 (20:41→21:04)
[2024-01-08] MEDS: Mirtazapine 15 MG TABLET PO (20:41)
[2024-01-08] MEDS: Multivitamin TABLET 1 TAB PO (20:41)
[2024-01-08] MEDS: OLANZapine 10 MG TABLET 20 MG PO (20:42)
[2024-01-09 08:00] VITALS: BP 128/85; PULSE 89; RESP 18; TEMP 36; O2SAT 97
[2024-01-09 08:30] VITALS: BP 128/85
[2024-01-09] MEDS: amLODIPine Besylate 5 MG TABLET PO (08:30)
[2024-01-09] MEDS: Thiamine HCL 100 MG TABLET PO (08:31)
[2024-01-09] MEDS: Emtricitabin/Tenofovir 200/300 TABLET 1 TAB PO (08:31)
[2024-01-09] MEDS: Divalproex Sodium Sprinkles 125 MG CAP.DR.SPR 250 MG PO ×3 (08:31→19:59)
[2024-01-09] MEDS: levETIRAcetam 500 MG TABLET PO ×2 (08:31→19:59)
[2024-01-09] MEDS: HaloperidoL 5 MG TABLET PO ×2 (08:31→19:59)
[2024-01-09] MEDS: OLANZapine 5 MG TABLET PO ×2 (08:31→14:48)
[2024-01-09] MEDS: Rilpivirine HCL 25 MG TABLET PO (08:31)
--- NOTE | 2024-01-09 10:45 | P.PNPSI_ITS ---
Subjective Subjective Date of Service: 01/09/24 Reason For Visit: F32.9 Interim History: calm, cooperative. no questions or complaints. per staff, slept 8 hours. good behavior. Mental Status Exam Mental Status Exam Patient Appearance: Appropriate Patient Orientation: Person and Situation Level of Consciousness: Awake Patient Behavior: Guarded and Passive Mood Description: Withdrawn Affect Description: Constricted Patient Cognition Impaired: Yes Ability to Follow Directions: Good Speech Pattern: Clear Hallucinations: None Delusions: Ideas of Reference Thought Process: Distracted and Slowed Thinking Thought Content: positive for [place] and positive for Poverty of Content Judgement: Fair Diagnostics Vital Signs (24Hr): Vital Signs - 24 hr 01/08/24 20:00 01/09/24 08:00 01/09/24 08:30 Temperature 97.2 F 96.8 F Pulse Rate 91 89 Respiratory Rate 18 18 Blood Pressure 116/74 128/85 128/85 Pulse Oximetry 94 97 Oxygen Delivery Method Room Air Room Air BMI result Body Mass Index 19.5 Labs 11/19/23 08:03 11/19/23 08:03 Medications Medications Current Medications Acetaminophen (Acetaminophen 325 Mg Tablet) 650 mg PO Q6H PRN PRN Reason: Pain (Scale Score 1-3) Last Admin: 12/19/23 20:10 Dose: 650 mg Al Hydroxide/Mg Hydroxide (Magnesium Hydrox/Alum Hydrox 30 Ml Oral.Susp) 30 ml PO Q6H PRN PRN Reason: Heartburn/Nausea Last Admin: 11/12/23 06:20 Dose: 30 ml Albuterol Sulfate (Albuterol Sulfate 90 Mcg 8 Gm Inhaler) 2 puff INHALE RQ4H PRN PRN Reason: Wheezing Amlodipine Besylate (Amlodipine Besylate 5 Mg Tablet) 5 mg PO DAILY [facility]; Protocol Last Admin: 01/09/24 08:30 Dose: 5 mg Divalproex Sodium (Divalproex Sodium Sprinkles 125 Mg ) 250 mg PO TID [facility] Last Admin: 01/09/24 08:31 Dose: 250 mg Emtricitabine/Tenofovir (Emtricitabin/Tenofovir 200/300 Tablet) 1 tab PO DAILY [facility] Last Admin: 01/09/24 08:31 Dose: 1 tab Haloperidol (Haloperidol 5 Mg Tablet) 5 mg PO BID [facility] Last Admin: 01/09/24 08:31 Dose: 5 mg Haloperidol Decanoate (Haloperidol Decanoate 50 Mg/Ml Vial) 100 mg IM Q28D [facility] Last Admin: 12/23/23 21:14 Dose: 100 mg Levetiracetam (Levetiracetam 500 Mg Tablet) 500 mg PO BID [facility] Last Admin: 01/09/24 08:31 Dose: 500 mg Magnesium Hydroxide (Milk Of Magnesia 30 Ml Oral.Susp) 30 ml PO DAILY PRN PRN Reason: Constipation Mirtazapine (Mirtazapine 15 Mg Tablet) 15 mg PO BEDTIME [facility] Last Admin: 01/08/24 20:41 Dose: 15 mg Multivitamins/Vitamin C (Multivitamin Tablet) 1 tab PO BEDTIME [facility] Last Admin: 01/08/24 20:41 Dose: 1 tab Nicotine Polacrilex (Nicotine Polacrilex 2 Mg Gum) 4 mg BUCCAL Q2H PRN PRN Reason: Nicotine Cravings Olanzapine (Olanzapine 5 Mg Tablet) 5 mg PO BID@0800,1500 [facility] Last Admin: 01/09/24 08:31 Dose: 5 mg Olanzapine (Olanzapine 10 Mg Vial) 10 mg IM BEDTIME PRN PRN Reason: if refuses bedtime PO zyprexa Olanzapine (Olanzapine 10 Mg Vial) 5 mg IM BID@0800,1500 PRN PRN Reason: if refuses 0800/1500 PO zyprexa Last Admin: 10/13/23 14:58 Dose: 5 mg Olanzapine (Olanzapine 10 Mg Tablet) 20 mg PO BEDTIME [facility] Last Admin: 01/08/24 20:42 Dose: 20 mg Polyethylene Glycol (Polyethylene Glycol 3350 17 Gm Powd.Pack) 17 gm PO DAILY PRN PRN Reason: Constipation Rilpivirine (Rilpivirine Hcl 25 Mg Tablet) 25 mg PO DAILY [facility] Last Admin: 01/09/24 08:31 Dose: 25 mg Thiamine HCl (Thiamine Hcl 100 Mg Tablet) 100 mg PO DAILY [facility] Last Admin: 01/09/24 08:31 Dose: 100 mg Trazodone HCl (Trazodone Hcl 50 Mg Tablet) 50 mg PO BEDTIME MRX1 [facility] Last Admin: 01/08/24 21:04 Dose: 50 mg Allergies Allergies Allergy/AdvReac Type Severity Reaction Status Date / Time No Known Allergies Allergy Unverified 01/28/20 16:07 [No Known Allergies*] Assessment & Plan Assessment & Plan (1) Schizoaffective disorder, bipolar type: Status: Acute Code(s): F25.0 - Schizoaffective disorder, bipolar type Assessment and Plan: 11/01 mildly up - positive mood=- but less irritable than in past visits 11/02 CTP (2) Dementia: Status: Acute Code(s): F03.90 - Unspecified dementia, unspecified severity, without behavioral disturbance, psychotic disturbance, mood disturbance, and anxiety Assessment and Plan: 11/01 ongoing dementia continue with reorientation and distraction prn - (3) Noncompliance: Status: Acute Code(s): Z91.199 - Patient's noncompliance with other medical treatment and regimen due to unspecified reason Assessment and Plan: seems to be taking medication currently - watches nurse crush them and put in ice cream Plan The patient is an elderly male with a past history of schizoaffective disorder, dementia, HIV and other medical problems, chronically mentally ill resident of assisted living facility referred to this facility after he became non compliant with medications with daniella and psychosis. The patient was assessed by crisis and transferring to this facility for psychiatric stabilization. At the moment of the interview the patient was able to contract for safety. Plan 1. Continue with same treatment. 2. Waiting for placement Reason for continued inpatient stay Substantial Risk for: inability to function and rapid decompensation Time Spent With Patient Time: Total time managing care of this patient today ____ minutes.
[2024-01-09 18:00] VITALS: BMI 19.7
[2024-01-09] MEDS: OLANZapine 10 MG TABLET 20 MG PO (19:58)
[2024-01-09] MEDS: Multivitamin TABLET 1 TAB PO (19:59)
[2024-01-09] MEDS: Mirtazapine 15 MG TABLET PO (19:59)
[2024-01-09] MEDS: traZODone HCL 50 MG TABLET PO (19:59)
[2024-01-09 21:25] VITALS: BP 93/62; PULSE 83; RESP 18; TEMP 36; O2SAT 93
--- NOTE | 2024-01-10 07:50 | HO.PSYCHPN ---
Subjective Subjective Date of Service: 01/10/24 Reason For Visit: F32.9 Subjective Notes: Section 8 Interim History: Pt slept most of the unit, visible. He attends some groups. No overt psychosis or delusions. good behavioral control and taking medications as prescribed. No SI/HI. awaiting placement. Review of Systems Review of Systems General: No fevers, malaise, unintentional weight loss HEENT: No blurred vision, diplopia. No sore throat, nasal congestion, rhinorrhea, sinus pain, ear pain Cardiovascular: No chest pain, palpitations, or leg edema Respiratory: No shortness of breath, wheezing, cough GI: No abdominal pain, nausea, vomiting, diarrhea, constipation, melena, hematochezia : No dysuria, hematuria, increased urinary frequency, decreased urinary output MSK: No myalgia, back pain Neuro: No headaches, weakness, paresthesias Skin: No rashes or lesions Yes all other systems are reviewed and are negative and Unobtainable due to mental status Mental Status Exam Mental Status Exam Patient Appearance: Appropriate Patient Orientation: Person and Situation Level of Consciousness: Awake Patient Behavior: Guarded and Passive Mood Description: Withdrawn Affect Description: Constricted Patient Cognition Impaired: Yes Ability to Follow Directions: Good Speech Pattern: Clear Diagnostics Vital Signs (24Hr): Vital Signs - 24 hr 01/09/24 08:00 01/09/24 08:30 01/09/24 21:25 Temperature 96.8 F 96.8 F Pulse Rate 89 83 Respiratory Rate 18 18 Blood Pressure 128/85 128/85 93/62 Pulse Oximetry 97 93 Oxygen Delivery Method Room Air Room Air BMI result Body Mass Index 19.7 Labs 11/19/23 08:03 11/19/23 08:03 Medications Medications Current Medications Acetaminophen (Acetaminophen 325 Mg Tablet) 650 mg PO Q6H PRN PRN Reason: Pain (Scale Score 1-3) Last Admin: 12/19/23 20:10 Dose: 650 mg Al Hydroxide/Mg Hydroxide (Magnesium Hydrox/Alum Hydrox 30 Ml Oral.Susp) 30 ml PO Q6H PRN PRN Reason: Heartburn/Nausea Last Admin: 11/12/23 06:20 Dose: 30 ml Albuterol Sulfate (Albuterol Sulfate 90 Mcg 8 Gm Inhaler) 2 puff INHALE RQ4H PRN PRN Reason: Wheezing Amlodipine Besylate (Amlodipine Besylate 5 Mg Tablet) 5 mg PO DAILY [facility]; Protocol Last Admin: 01/09/24 08:30 Dose: 5 mg Divalproex Sodium (Divalproex Sodium Sprinkles 125 Mg ) 250 mg PO TID [facility] Last Admin: 01/09/24 19:59 Dose: 250 mg Emtricitabine/Tenofovir (Emtricitabin/Tenofovir 200/300 Tablet) 1 tab PO DAILY [facility] Last Admin: 01/09/24 08:31 Dose: 1 tab Haloperidol (Haloperidol 5 Mg Tablet) 5 mg PO BID [facility] Last Admin: 01/09/24 19:59 Dose: 5 mg Haloperidol Decanoate (Haloperidol Decanoate 50 Mg/Ml Vial) 100 mg IM Q28D [facility] Last Admin: 12/23/23 21:14 Dose: 100 mg Levetiracetam (Levetiracetam 500 Mg Tablet) 500 mg PO BID [facility] Last Admin: 01/09/24 19:59 Dose: 500 mg Magnesium Hydroxide (Milk Of Magnesia 30 Ml Oral.Susp) 30 ml PO DAILY PRN PRN Reason: Constipation Mirtazapine (Mirtazapine 15 Mg Tablet) 15 mg PO BEDTIME [facility] Last Admin: 01/09/24 19:59 Dose: 15 mg Multivitamins/Vitamin C (Multivitamin Tablet) 1 tab PO BEDTIME [facility] Last Admin: 01/09/24 19:59 Dose: 1 tab Nicotine Polacrilex (Nicotine Polacrilex 2 Mg Gum) 4 mg BUCCAL Q2H PRN PRN Reason: Nicotine Cravings Olanzapine (Olanzapine 5 Mg Tablet) 5 mg PO BID@0800,1500 [facility] Last Admin: 01/09/24 14:48 Dose: 5 mg Olanzapine (Olanzapine 10 Mg Vial) 10 mg IM BEDTIME PRN PRN Reason: if refuses bedtime PO zyprexa Olanzapine (Olanzapine 10 Mg Vial) 5 mg IM BID@0800,1500 PRN PRN Reason: if refuses 0800/1500 PO zyprexa Last Admin: 10/13/23 14:58 Dose: 5 mg Olanzapine (Olanzapine 10 Mg Tablet) 20 mg PO BEDTIME [facility] Last Admin: 01/09/24 19:58 Dose: 20 mg Polyethylene Glycol (Polyethylene Glycol 3350 17 Gm Powd.Pack) 17 gm PO DAILY PRN PRN Reason: Constipation Rilpivirine (Rilpivirine Hcl 25 Mg Tablet) 25 mg PO DAILY [facility] Last Admin: 01/09/24 08:31 Dose: 25 mg Thiamine HCl (Thiamine Hcl 100 Mg Tablet) 100 mg PO DAILY [facility] Last Admin: 01/09/24 08:31 Dose: 100 mg Trazodone HCl (Trazodone Hcl 50 Mg Tablet) 50 mg PO BEDTIME MRX1 [facility] Last Admin: 01/09/24 20:03 Dose: 50 mg Allergies Allergies Allergy/AdvReac Type Severity Reaction Status Date / Time No Known Allergies Allergy Unverified 01/28/20 16:07 [No Known Allergies*] Assessment & Plan Assessment & Plan (1) Schizoaffective disorder, bipolar type: Status: Acute Code(s): F25.0 - Schizoaffective disorder, bipolar type Assessment and Plan: 11/01 mildly up - positive mood=- but less irritable than in past visits 11/02 CTP (2) Dementia: Status: Acute Code(s): F03.90 - Unspecified dementia, unspecified severity, without behavioral disturbance, psychotic disturbance, mood disturbance, and anxiety Assessment and Plan: 11/01 ongoing dementia continue with reorientation and distraction prn - (3) Noncompliance: Status: Acute Code(s): Z91.199 - Patient's noncompliance with other medical treatment and regimen due to unspecified reason Assessment and Plan: seems to be taking medication currently - watches nurse crush them and put in ice cream Plan The patient is an elderly male with a past history of schizoaffective disorder, dementia, HIV and other medical problems, chronically mentally ill resident of assisted living facility referred to this facility after he became non compliant with medications with daniella and psychosis. The patient was assessed by crisis and transferring to this facility for psychiatric stabilization. At the moment of the interview the patient was able to contract for safety. Plan 1. Continue with same treatment. 2. Waiting for placement Reason for continued inpatient stay Substantial Risk for: inability to function Time Spent With Patient Time: Total time managing care of this patient today ____ minutes.
[2024-01-10 08:00] VITALS: BP 97/66; PULSE 87; RESP 18; TEMP 36.6; O2SAT 95
[2024-01-10] MEDS: Divalproex Sodium Sprinkles 125 MG CAP.DR.SPR 250 MG PO ×3 (08:50→20:24)
[2024-01-10] MEDS: OLANZapine 5 MG TABLET PO ×2 (08:50→15:10)
[2024-01-10] MEDS: HaloperidoL 5 MG TABLET PO ×2 (08:50→20:25)
[2024-01-10] MEDS: levETIRAcetam 500 MG TABLET PO ×2 (08:50→20:25)
[2024-01-10] MEDS: Thiamine HCL 100 MG TABLET PO (08:50)
[2024-01-10] MEDS: Rilpivirine HCL 25 MG TABLET PO (08:50)
[2024-01-10] MEDS: Emtricitabin/Tenofovir 200/300 TABLET 1 TAB PO (08:51)
[2024-01-10 09:01] VITALS: BP 97/66
[2024-01-10 20:00] VITALS: BP 100/64; PULSE 90; RESP 16; TEMP 36.6; O2SAT 92
[2024-01-10] MEDS: OLANZapine 10 MG TABLET 20 MG PO (20:25)
[2024-01-10] MEDS: traZODone HCL 50 MG TABLET PO (20:25)
[2024-01-10] MEDS: Mirtazapine 15 MG TABLET PO (20:25)
[2024-01-10] MEDS: Multivitamin TABLET 1 TAB PO (20:25)
[2024-01-11 08:00] VITALS: BP 112/76; PULSE 94; RESP 17; TEMP 36; O2SAT 95
[2024-01-11] MEDS: Rilpivirine HCL 25 MG TABLET PO (09:03)
[2024-01-11] MEDS: Emtricitabin/Tenofovir 200/300 TABLET 1 TAB PO (09:03)
[2024-01-11] MEDS: Divalproex Sodium Sprinkles 125 MG CAP.DR.SPR 250 MG PO ×3 (09:03→20:11)
[2024-01-11] MEDS: OLANZapine 5 MG TABLET PO ×2 (09:03→15:37)
[2024-01-11] MEDS: levETIRAcetam 500 MG TABLET PO ×2 (09:03→20:13)
[2024-01-11] MEDS: Thiamine HCL 100 MG TABLET PO (09:04)
[2024-01-11] MEDS: amLODIPine Besylate 5 MG TABLET PO (09:04)
[2024-01-11] MEDS: HaloperidoL 5 MG TABLET PO ×2 (09:04→20:12)
--- NOTE | 2024-01-11 09:07 | HO.PSYCHPN ---
Subjective Subjective Date of Service: 01/11/24 Reason For Visit: F32.9 Interim History: Pt naps on and off most of the shift, visible. He attends some groups. No overt psychosis or delusions. good behavioral control and taking medications as prescribed. No SI/HI. awaiting placement. Review of Systems Review of Systems General: No fevers, malaise, unintentional weight loss HEENT: No blurred vision, diplopia. No sore throat, nasal congestion, rhinorrhea, sinus pain, ear pain Cardiovascular: No chest pain, palpitations, or leg edema Respiratory: No shortness of breath, wheezing, cough GI: No abdominal pain, nausea, vomiting, diarrhea, constipation, melena, hematochezia : No dysuria, hematuria, increased urinary frequency, decreased urinary output MSK: No myalgia, back pain Neuro: No headaches, weakness, paresthesias Skin: No rashes or lesions Yes all other systems are reviewed and are negative and Unobtainable due to mental status Mental Status Exam Mental Status Exam Narrative: pt more talkative, denies complaints; slightly brighter Self-care is poor. In bed. Patient Appearance: Appropriate Patient Orientation: Person and Situation Level of Consciousness: Awake Patient Behavior: Guarded and Passive Mood Description: Withdrawn Affect Description: Constricted Patient Cognition Impaired: Yes Ability to Follow Directions: Good Speech Pattern: Clear Diagnostics Vital Signs (24Hr): Vital Signs - 24 hr 01/10/24 20:00 01/11/24 08:00 Temperature 97.8 F 96.8 F Pulse Rate 90 94 Respiratory Rate 16 17 Blood Pressure 100/64 112/76 Pulse Oximetry 92 95 Oxygen Delivery Method Room Air Room Air BMI result Body Mass Index 19.7 Labs 11/19/23 08:03 11/19/23 08:03 Medications Medications Current Medications Acetaminophen (Acetaminophen 325 Mg Tablet) 650 mg PO Q6H PRN PRN Reason: Pain (Scale Score 1-3) Last Admin: 12/19/23 20:10 Dose: 650 mg Al Hydroxide/Mg Hydroxide (Magnesium Hydrox/Alum Hydrox 30 Ml Oral.Susp) 30 ml PO Q6H PRN PRN Reason: Heartburn/Nausea Last Admin: 11/12/23 06:20 Dose: 30 ml Albuterol Sulfate (Albuterol Sulfate 90 Mcg 8 Gm Inhaler) 2 puff INHALE RQ4H PRN PRN Reason: Wheezing Amlodipine Besylate (Amlodipine Besylate 5 Mg Tablet) 5 mg PO DAILY [facility]; Protocol Last Admin: 01/11/24 09:04 Dose: 5 mg Divalproex Sodium (Divalproex Sodium Sprinkles 125 Mg ) 250 mg PO TID [facility] Last Admin: 01/11/24 09:03 Dose: 250 mg Emtricitabine/Tenofovir (Emtricitabin/Tenofovir 200/300 Tablet) 1 tab PO DAILY [facility] Last Admin: 01/11/24 09:03 Dose: 1 tab Haloperidol (Haloperidol 5 Mg Tablet) 5 mg PO BID [facility] Last Admin: 01/11/24 09:04 Dose: 5 mg Haloperidol Decanoate (Haloperidol Decanoate 50 Mg/Ml Vial) 100 mg IM Q28D [facility] Last Admin: 12/23/23 21:14 Dose: 100 mg Levetiracetam (Levetiracetam 500 Mg Tablet) 500 mg PO BID [facility] Last Admin: 01/11/24 09:03 Dose: 500 mg Magnesium Hydroxide (Milk Of Magnesia 30 Ml Oral.Susp) 30 ml PO DAILY PRN PRN Reason: Constipation Mirtazapine (Mirtazapine 15 Mg Tablet) 15 mg PO BEDTIME [facility] Last Admin: 01/10/24 20:25 Dose: 15 mg Multivitamins/Vitamin C (Multivitamin Tablet) 1 tab PO BEDTIME [facility] Last Admin: 01/10/24 20:25 Dose: 1 tab Nicotine Polacrilex (Nicotine Polacrilex 2 Mg Gum) 4 mg BUCCAL Q2H PRN PRN Reason: Nicotine Cravings Olanzapine (Olanzapine 5 Mg Tablet) 5 mg PO BID@0800,1500 [facility] Last Admin: 01/11/24 09:03 Dose: 5 mg Olanzapine (Olanzapine 10 Mg Vial) 10 mg IM BEDTIME PRN PRN Reason: if refuses bedtime PO zyprexa Olanzapine (Olanzapine 10 Mg Vial) 5 mg IM BID@0800,1500 PRN PRN Reason: if refuses 0800/1500 PO zyprexa Last Admin: 10/13/23 14:58 Dose: 5 mg Olanzapine (Olanzapine 10 Mg Tablet) 20 mg PO BEDTIME [facility] Last Admin: 01/10/24 20:25 Dose: 20 mg Polyethylene Glycol (Polyethylene Glycol 3350 17 Gm Powd.Pack) 17 gm PO DAILY PRN PRN Reason: Constipation Rilpivirine (Rilpivirine Hcl 25 Mg Tablet) 25 mg PO DAILY [facility] Last Admin: 01/11/24 09:03 Dose: 25 mg Thiamine HCl (Thiamine Hcl 100 Mg Tablet) 100 mg PO DAILY [facility] Last Admin: 01/11/24 09:04 Dose: 100 mg Trazodone HCl (Trazodone Hcl 50 Mg Tablet) 50 mg PO BEDTIME MRX1 [facility] Last Admin: 01/10/24 22:10 Dose: Not Given Allergies Allergies Allergy/AdvReac Type Severity Reaction Status Date / Time No Known Allergies Allergy Unverified 01/28/20 16:07 [No Known Allergies*] Assessment & Plan Assessment & Plan (1) Schizoaffective disorder, bipolar type: Status: Acute Code(s): F25.0 - Schizoaffective disorder, bipolar type Assessment and Plan: 11/01 mildly up - positive mood=- but less irritable than in past visits 11/02 CTP (2) Dementia: Status: Acute Code(s): F03.90 - Unspecified dementia, unspecified severity, without behavioral disturbance, psychotic disturbance, mood disturbance, and anxiety Assessment and Plan: 11/01 ongoing dementia continue with reorientation and distraction prn - (3) Noncompliance: Status: Acute Code(s): Z91.199 - Patient's noncompliance with other medical treatment and regimen due to unspecified reason Assessment and Plan: seems to be taking medication currently - watches nurse crush them and put in ice cream Plan The patient is an elderly male with a past history of schizoaffective disorder, dementia, HIV and other medical problems, chronically mentally ill resident of assisted living facility referred to this facility after he became non compliant with medications with daniella and psychosis. The patient was assessed by crisis and transferring to this facility for psychiatric stabilization. At the moment of the interview the patient was able to contract for safety. Plan 1. Continue with same treatment. 2. Waiting for placement 01/10: continue current management and treatment plan. Reason for continued inpatient stay Substantial Risk for: inability to function, rapid decompensation and med/psych decompensation Time Spent With Patient Time: Total time managing care of this patient today ____ minutes.
[2024-01-11 20:00] VITALS: BP 89/73; PULSE 84; RESP 14; TEMP 36.2; O2SAT 92
[2024-01-11] MEDS: OLANZapine 10 MG TABLET 20 MG PO (20:11)
[2024-01-11] MEDS: Mirtazapine 15 MG TABLET PO (20:12)
[2024-01-11] MEDS: traZODone HCL 50 MG TABLET PO ×2 (20:12→21:19)
[2024-01-11] MEDS: Multivitamin TABLET 1 TAB PO (20:12)
[2024-01-12 08:59] VITALS: BP 105/69; PULSE 93; RESP 17; TEMP 36.4; O2SAT 96
[2024-01-12] MEDS: OLANZapine 5 MG TABLET PO ×2 (09:00→15:35)
[2024-01-12] MEDS: Divalproex Sodium Sprinkles 125 MG CAP.DR.SPR 250 MG PO ×3 (09:00→20:46)
[2024-01-12] MEDS: HaloperidoL 5 MG TABLET PO ×2 (09:00→20:46)
[2024-01-12] MEDS: Emtricitabin/Tenofovir 200/300 TABLET 1 TAB PO (09:00)
[2024-01-12] MEDS: Rilpivirine HCL 25 MG TABLET PO (09:01)
[2024-01-12] MEDS: levETIRAcetam 500 MG TABLET PO ×2 (09:01→20:46)
[2024-01-12] MEDS: Thiamine HCL 100 MG TABLET PO (09:01)
[2024-01-12] MEDS: amLODIPine Besylate 5 MG TABLET PO (09:01)
--- NOTE | 2024-01-12 11:42 | HO.PSYCHPN ---
Subjective Subjective Date of Service: 01/12/24 Reason For Visit: F32.9 Interim History: Pt naps on and off most of the shift, visible. He attends some groups. No overt psychosis or delusions. good behavioral control and taking medications as prescribed. No SI/HI. awaiting placement. Review of Systems Review of Systems General: No fevers, malaise, unintentional weight loss HEENT: No blurred vision, diplopia. No sore throat, nasal congestion, rhinorrhea, sinus pain, ear pain Cardiovascular: No chest pain, palpitations, or leg edema Respiratory: No shortness of breath, wheezing, cough GI: No abdominal pain, nausea, vomiting, diarrhea, constipation, melena, hematochezia : No dysuria, hematuria, increased urinary frequency, decreased urinary output MSK: No myalgia, back pain Neuro: No headaches, weakness, paresthesias Skin: No rashes or lesions Yes all other systems are reviewed and are negative and Unobtainable due to mental status Mental Status Exam Mental Status Exam Narrative: pt more talkative, denies complaints; slightly brighter Self-care is poor. In bed. Patient Appearance: Appropriate Patient Orientation: Person and Situation Level of Consciousness: Awake Patient Behavior: Guarded and Passive Mood Description: Withdrawn Affect Description: Constricted Patient Cognition Impaired: Yes Ability to Follow Directions: Good Speech Pattern: Clear Diagnostics Vital Signs (24Hr): Vital Signs - 24 hr 01/11/24 20:00 01/12/24 08:59 Temperature 97.2 F 97.6 F Pulse Rate 84 93 Respiratory Rate 14 17 Blood Pressure 89/73 L 105/69 Pulse Oximetry 92 96 Oxygen Delivery Method Room Air Room Air BMI result Body Mass Index 19.7 Labs 11/19/23 08:03 11/19/23 08:03 Medications Medications Current Medications Acetaminophen (Acetaminophen 325 Mg Tablet) 650 mg PO Q6H PRN PRN Reason: Pain (Scale Score 1-3) Last Admin: 12/19/23 20:10 Dose: 650 mg Al Hydroxide/Mg Hydroxide (Magnesium Hydrox/Alum Hydrox 30 Ml Oral.Susp) 30 ml PO Q6H PRN PRN Reason: Heartburn/Nausea Last Admin: 11/12/23 06:20 Dose: 30 ml Albuterol Sulfate (Albuterol Sulfate 90 Mcg 8 Gm Inhaler) 2 puff INHALE RQ4H PRN PRN Reason: Wheezing Amlodipine Besylate (Amlodipine Besylate 5 Mg Tablet) 5 mg PO DAILY [facility]; Protocol Last Admin: 01/12/24 09:01 Dose: 5 mg Divalproex Sodium (Divalproex Sodium Sprinkles 125 Mg ) 250 mg PO TID [facility] Last Admin: 01/12/24 09:00 Dose: 250 mg Emtricitabine/Tenofovir (Emtricitabin/Tenofovir 200/300 Tablet) 1 tab PO DAILY [facility] Last Admin: 01/12/24 09:00 Dose: 1 tab Haloperidol (Haloperidol 5 Mg Tablet) 5 mg PO BID [facility] Last Admin: 01/12/24 09:00 Dose: 5 mg Haloperidol Decanoate (Haloperidol Decanoate 50 Mg/Ml Vial) 100 mg IM Q28D [facility] Last Admin: 12/23/23 21:14 Dose: 100 mg Levetiracetam (Levetiracetam 500 Mg Tablet) 500 mg PO BID [facility] Last Admin: 01/12/24 09:01 Dose: 500 mg Magnesium Hydroxide (Milk Of Magnesia 30 Ml Oral.Susp) 30 ml PO DAILY PRN PRN Reason: Constipation Mirtazapine (Mirtazapine 15 Mg Tablet) 15 mg PO BEDTIME [facility] Last Admin: 01/11/24 20:12 Dose: 15 mg Multivitamins/Vitamin C (Multivitamin Tablet) 1 tab PO BEDTIME [facility] Last Admin: 01/11/24 20:12 Dose: 1 tab Nicotine Polacrilex (Nicotine Polacrilex 2 Mg Gum) 4 mg BUCCAL Q2H PRN PRN Reason: Nicotine Cravings Olanzapine (Olanzapine 5 Mg Tablet) 5 mg PO BID@0800,1500 [facility] Last Admin: 01/12/24 09:00 Dose: 5 mg Olanzapine (Olanzapine 10 Mg Vial) 5 mg IM BID@0800,1500 PRN PRN Reason: if refuses 0800/1500 PO zyprexa Last Admin: 10/13/23 14:58 Dose: 5 mg Olanzapine (Olanzapine 10 Mg Tablet) 20 mg PO BEDTIME [facility] Last Admin: 01/11/24 20:11 Dose: 20 mg Polyethylene Glycol (Polyethylene Glycol 3350 17 Gm Powd.Pack) 17 gm PO DAILY PRN PRN Reason: Constipation Rilpivirine (Rilpivirine Hcl 25 Mg Tablet) 25 mg PO DAILY [facility] Last Admin: 01/12/24 09:01 Dose: 25 mg Thiamine HCl (Thiamine Hcl 100 Mg Tablet) 100 mg PO DAILY [facility] Last Admin: 01/12/24 09:01 Dose: 100 mg Trazodone HCl (Trazodone Hcl 50 Mg Tablet) 50 mg PO BEDTIME MRX1 [facility] Last Admin: 01/11/24 21:19 Dose: 50 mg Allergies Allergies Allergy/AdvReac Type Severity Reaction Status Date / Time No Known Allergies Allergy Unverified 01/28/20 16:07 [No Known Allergies*] Assessment & Plan Assessment & Plan (1) Schizoaffective disorder, bipolar type: Status: Acute Code(s): F25.0 - Schizoaffective disorder, bipolar type Assessment and Plan: 11/01 mildly up - positive mood=- but less irritable than in past visits 11/02 CTP (2) Dementia: Status: Acute Code(s): F03.90 - Unspecified dementia, unspecified severity, without behavioral disturbance, psychotic disturbance, mood disturbance, and anxiety Assessment and Plan: 11/01 ongoing dementia continue with reorientation and distraction prn - (3) Noncompliance: Status: Acute Code(s): Z91.199 - Patient's noncompliance with other medical treatment and regimen due to unspecified reason Assessment and Plan: seems to be taking medication currently - watches nurse crush them and put in ice cream Plan The patient is an elderly male with a past history of schizoaffective disorder, dementia, HIV and other medical problems, chronically mentally ill resident of assisted living facility referred to this facility after he became non compliant with medications with daniella and psychosis. The patient was assessed by crisis and transferring to this facility for psychiatric stabilization. At the moment of the interview the patient was able to contract for safety. Plan 1. Continue with same treatment. 2. Waiting for placement 01/10: continue current management and treatment plan. 01/11: Continue current management and treatment plan. Reason for continued inpatient stay Substantial Risk for: inability to function and rapid decompensation Time Spent With Patient Time: Total time managing care of this patient today ____ minutes.
[2024-01-12 20:00] VITALS: BP 107/62; PULSE 84; RESP 16; TEMP 36.3; O2SAT 94
[2024-01-12] MEDS: Multivitamin TABLET 1 TAB PO (20:45)
[2024-01-12] MEDS: OLANZapine 10 MG TABLET 20 MG PO (20:46)
[2024-01-12] MEDS: Mirtazapine 15 MG TABLET PO (20:46)
[2024-01-12] MEDS: traZODone HCL 50 MG TABLET PO ×2 (20:46→20:50)
[2024-01-13 08:00] VITALS: BP 113/69; PULSE 95; RESP 16; TEMP 36.6; O2SAT 95
[2024-01-13 08:52] VITALS: BP 113/69
[2024-01-13] MEDS: amLODIPine Besylate 5 MG TABLET PO (08:52)
[2024-01-13] MEDS: Thiamine HCL 100 MG TABLET PO (08:52)
[2024-01-13] MEDS: OLANZapine 5 MG TABLET PO ×2 (08:52→15:17)
[2024-01-13] MEDS: Emtricitabin/Tenofovir 200/300 TABLET 1 TAB PO (08:52)
[2024-01-13] MEDS: Rilpivirine HCL 25 MG TABLET PO (08:52)
[2024-01-13] MEDS: Divalproex Sodium Sprinkles 125 MG CAP.DR.SPR 250 MG PO ×3 (08:52→20:23)
[2024-01-13] MEDS: levETIRAcetam 500 MG TABLET PO ×2 (08:52→20:24)
[2024-01-13] MEDS: HaloperidoL 5 MG TABLET PO ×2 (08:52→20:24)
--- NOTE | 2024-01-13 16:39 | P.PNPSI_ITS ---
Subjective Subjective Date of Service: 01/13/24 Reason For Visit: F32.9 Interim History: Pt naps on and off most of the shift but went on fresh air break today which he says was good. Visible for meals. He attends some groups. No overt psychosis or delusions. good behavioral control and taking medications as prescribed. No SI/HI. awaiting placement. Review of Systems Review of Systems General: No fevers, malaise, unintentional weight loss HEENT: No blurred vision, diplopia. No sore throat, nasal congestion, rhinorrhea, sinus pain, ear pain Cardiovascular: No chest pain, palpitations, or leg edema Respiratory: No shortness of breath, wheezing, cough GI: No abdominal pain, nausea, vomiting, diarrhea, constipation, melena, hematochezia : No dysuria, hematuria, increased urinary frequency, decreased urinary output MSK: No myalgia, back pain Neuro: No headaches, weakness, paresthesias Skin: No rashes or lesions Yes all other systems are reviewed and are negative and Unobtainable due to mental status Mental Status Exam Mental Status Exam Narrative: pt more talkative, denies complaints; slightly brighter Self-care is poor. In bed. Patient Appearance: Appropriate Patient Orientation: Person and Situation Level of Consciousness: Awake Patient Behavior: Guarded and Passive Mood Description: Withdrawn Affect Description: Constricted Patient Cognition Impaired: Yes Ability to Follow Directions: Good Speech Pattern: Clear Diagnostics Vital Signs (24Hr): Vital Signs - 24 hr 01/12/24 20:00 01/13/24 08:00 01/13/24 08:52 Temperature 97.4 F 97.9 F Pulse Rate 84 95 Respiratory Rate 16 16 Blood Pressure 107/62 113/69 113/69 Pulse Oximetry 94 95 Oxygen Delivery Method Room Air Room Air BMI result Body Mass Index 19.7 Labs 11/19/23 08:03 11/19/23 08:03 Medications Medications Current Medications Acetaminophen (Acetaminophen 325 Mg Tablet) 650 mg PO Q6H PRN PRN Reason: Pain (Scale Score 1-3) Last Admin: 12/19/23 20:10 Dose: 650 mg Al Hydroxide/Mg Hydroxide (Magnesium Hydrox/Alum Hydrox 30 Ml Oral.Susp) 30 ml PO Q6H PRN PRN Reason: Heartburn/Nausea Last Admin: 11/12/23 06:20 Dose: 30 ml Albuterol Sulfate (Albuterol Sulfate 90 Mcg 8 Gm Inhaler) 2 puff INHALE RQ4H PRN PRN Reason: Wheezing Amlodipine Besylate (Amlodipine Besylate 5 Mg Tablet) 5 mg PO DAILY [facility]; Protocol Last Admin: 01/13/24 08:52 Dose: 5 mg Divalproex Sodium (Divalproex Sodium Sprinkles 125 Mg Jabari.) 250 mg PO TID [facility] Last Admin: 01/13/24 15:17 Dose: 250 mg Emtricitabine/Tenofovir (Emtricitabin/Tenofovir 200/300 Tablet) 1 tab PO DAILY [facility] Last Admin: 01/13/24 08:52 Dose: 1 tab Haloperidol (Haloperidol 5 Mg Tablet) 5 mg PO BID [facility] Last Admin: 01/13/24 08:52 Dose: 5 mg Haloperidol Decanoate (Haloperidol Decanoate 50 Mg/Ml Vial) 100 mg IM Q28D [facility] Last Admin: 12/23/23 21:14 Dose: 100 mg Levetiracetam (Levetiracetam 500 Mg Tablet) 500 mg PO BID [facility] Last Admin: 01/13/24 08:52 Dose: 500 mg Magnesium Hydroxide (Milk Of Magnesia 30 Ml Oral.Susp) 30 ml PO DAILY PRN PRN Reason: Constipation Mirtazapine (Mirtazapine 15 Mg Tablet) 15 mg PO BEDTIME [facility] Last Admin: 01/12/24 20:46 Dose: 15 mg Multivitamins/Vitamin C (Multivitamin Tablet) 1 tab PO BEDTIME [facility] Last Admin: 01/12/24 20:45 Dose: 1 tab Nicotine Polacrilex (Nicotine Polacrilex 2 Mg Gum) 4 mg BUCCAL Q2H PRN PRN Reason: Nicotine Cravings Olanzapine (Olanzapine 5 Mg Tablet) 5 mg PO BID@0800,1500 [facility] Last Admin: 01/13/24 15:17 Dose: 5 mg Olanzapine (Olanzapine 10 Mg Vial) 5 mg IM BID@0800,1500 PRN PRN Reason: if refuses 0800/1500 PO zyprexa Last Admin: 10/13/23 14:58 Dose: 5 mg Olanzapine (Olanzapine 10 Mg Tablet) 20 mg PO BEDTIME [facility] Last Admin: 01/12/24 20:46 Dose: 20 mg Polyethylene Glycol (Polyethylene Glycol 3350 17 Gm Powd.Pack) 17 gm PO DAILY PRN PRN Reason: Constipation Rilpivirine (Rilpivirine Hcl 25 Mg Tablet) 25 mg PO DAILY [facility] Last Admin: 01/13/24 08:52 Dose: 25 mg Thiamine HCl (Thiamine Hcl 100 Mg Tablet) 100 mg PO DAILY [facility] Last Admin: 01/13/24 08:52 Dose: 100 mg Trazodone HCl (Trazodone Hcl 50 Mg Tablet) 50 mg PO BEDTIME MRX1 [facility] Last Admin: 01/12/24 20:50 Dose: 50 mg Allergies Allergies Allergy/AdvReac Type Severity Reaction Status Date / Time No Known Allergies Allergy Unverified 01/28/20 16:07 [No Known Allergies*] Assessment & Plan Assessment & Plan (1) Schizoaffective disorder, bipolar type: Status: Acute Code(s): F25.0 - Schizoaffective disorder, bipolar type Assessment and Plan: 11/01 mildly up - positive mood=- but less irritable than in past visits 11/02 CTP (2) Dementia: Status: Acute Code(s): F03.90 - Unspecified dementia, unspecified severity, without behavioral disturbance, psychotic disturbance, mood disturbance, and anxiety Assessment and Plan: 11/01 ongoing dementia continue with reorientation and distraction prn - (3) Noncompliance: Status: Acute Code(s): Z91.199 - Patient's noncompliance with other medical treatment and regimen due to unspecified reason Assessment and Plan: seems to be taking medication currently - watches nurse crush them and put in ice cream Plan The patient is an elderly male with a past history of schizoaffective disorder, dementia, HIV and other medical problems, chronically mentally ill resident of assisted living facility referred to this facility after he became non compliant with medications with daniella and psychosis. The patient was assessed by crisis and transferring to this facility for psychiatric stabilization. At the moment of the interview the patient was able to contract for safety. Plan 1. Continue with same treatment. 2. Waiting for placement 01/10: continue current management and treatment plan. 01/11: Continue current management and treatment plan. 01/12: Continue current management and treatment plan. Reason for continued inpatient stay Substantial Risk for: inability to function and rapid decompensation Time Spent With Patient Time: Total time managing care of this patient today ____ minutes.
[2024-01-13 20:00] VITALS: BP 116/83; PULSE 91; RESP 16; TEMP 36.6; O2SAT 96
[2024-01-13] MEDS: OLANZapine 10 MG TABLET 20 MG PO (20:23)
[2024-01-13] MEDS: Mirtazapine 15 MG TABLET PO (20:24)
[2024-01-13] MEDS: traZODone HCL 50 MG TABLET PO ×2 (20:24→21:27)
[2024-01-13] MEDS: Multivitamin TABLET 1 TAB PO (20:25)
[2024-01-14 08:00] VITALS: BP 108/75; PULSE 86; RESP 16; TEMP 36; O2SAT 96
[2024-01-14 08:37] VITALS: BP 108/75
[2024-01-14] MEDS: amLODIPine Besylate 5 MG TABLET PO (08:37)
[2024-01-14] MEDS: Rilpivirine HCL 25 MG TABLET PO (08:37)
[2024-01-14] MEDS: OLANZapine 5 MG TABLET PO ×2 (08:37→14:33)
[2024-01-14] MEDS: Divalproex Sodium Sprinkles 125 MG CAP.DR.SPR 250 MG PO ×3 (08:37→20:55)
[2024-01-14] MEDS: levETIRAcetam 500 MG TABLET PO ×2 (08:37→20:56)
[2024-01-14] MEDS: Thiamine HCL 100 MG TABLET PO (08:37)
[2024-01-14] MEDS: Emtricitabin/Tenofovir 200/300 TABLET 1 TAB PO (08:37)
[2024-01-14] MEDS: HaloperidoL 5 MG TABLET PO ×2 (08:38→20:56)
--- NOTE | 2024-01-14 12:21 | HO.PSYCHPN ---
Subjective Subjective Date of Service: 01/14/24 Reason For Visit: F32.9 Subjective Notes: Conditional Voluntary Guardianship: Yes Interim History: The nursing staff reported no changes in his mental status, fully compliant with treatment. On interview the patient denies new symptoms, waiting for placement. Mental Status Exam Mental Status Exam Patient Appearance: Appropriate Patient Orientation: Person, Place and Situation Level of Consciousness: Awake and Appropriate Patient Behavior: Guarded and Passive Mood Description: Withdrawn Affect Description: Constricted Patient Cognition Impaired: Yes Ability to Follow Directions: Good Speech Pattern: Clear Hallucinations: None Delusions: Not Present Thought Process: Distracted and Slowed Thinking Thought Content: positive for [place] and positive for Poverty of Content Judgement: Fair Diagnostics Vital Signs (24Hr): Vital Signs - 24 hr 01/13/24 20:00 01/14/24 08:00 01/14/24 08:37 Temperature 98 F 96.8 F Pulse Rate 91 86 Respiratory Rate 16 16 Blood Pressure 116/83 108/75 108/75 Pulse Oximetry 96 96 Oxygen Delivery Method Room Air Room Air BMI result Body Mass Index 19.7 Labs 11/19/23 08:03 11/19/23 08:03 Medications Medications Current Medications Acetaminophen (Acetaminophen 325 Mg Tablet) 650 mg PO Q6H PRN PRN Reason: Pain (Scale Score 1-3) Last Admin: 12/19/23 20:10 Dose: 650 mg Al Hydroxide/Mg Hydroxide (Magnesium Hydrox/Alum Hydrox 30 Ml Oral.Susp) 30 ml PO Q6H PRN PRN Reason: Heartburn/Nausea Last Admin: 11/12/23 06:20 Dose: 30 ml Albuterol Sulfate (Albuterol Sulfate 90 Mcg 8 Gm Inhaler) 2 puff INHALE RQ4H PRN PRN Reason: Wheezing Amlodipine Besylate (Amlodipine Besylate 5 Mg Tablet) 5 mg PO DAILY [facility]; Protocol Last Admin: 01/14/24 08:37 Dose: 5 mg Divalproex Sodium (Divalproex Sodium Sprinkles 125 Mg ) 250 mg PO TID [facility] Last Admin: 01/14/24 08:37 Dose: 250 mg Emtricitabine/Tenofovir (Emtricitabin/Tenofovir 200/300 Tablet) 1 tab PO DAILY [facility] Last Admin: 01/14/24 08:37 Dose: 1 tab Haloperidol (Haloperidol 5 Mg Tablet) 5 mg PO BID [facility] Last Admin: 01/14/24 08:38 Dose: 5 mg Haloperidol Decanoate (Haloperidol Decanoate 50 Mg/Ml Vial) 100 mg IM Q28D [facility] Last Admin: 12/23/23 21:14 Dose: 100 mg Levetiracetam (Levetiracetam 500 Mg Tablet) 500 mg PO BID [facility] Last Admin: 01/14/24 08:37 Dose: 500 mg Magnesium Hydroxide (Milk Of Magnesia 30 Ml Oral.Susp) 30 ml PO DAILY PRN PRN Reason: Constipation Mirtazapine (Mirtazapine 15 Mg Tablet) 15 mg PO BEDTIME [facility] Last Admin: 01/13/24 20:24 Dose: 15 mg Multivitamins/Vitamin C (Multivitamin Tablet) 1 tab PO BEDTIME [facility] Last Admin: 01/13/24 20:25 Dose: 1 tab Nicotine Polacrilex (Nicotine Polacrilex 2 Mg Gum) 4 mg BUCCAL Q2H PRN PRN Reason: Nicotine Cravings Olanzapine (Olanzapine 5 Mg Tablet) 5 mg PO BID@0800,1500 [facility] Last Admin: 01/14/24 08:37 Dose: 5 mg Olanzapine (Olanzapine 10 Mg Vial) 5 mg IM BID@0800,1500 PRN PRN Reason: if refuses 0800/1500 PO zyprexa Last Admin: 10/13/23 14:58 Dose: 5 mg Olanzapine (Olanzapine 10 Mg Tablet) 20 mg PO BEDTIME [facility] Last Admin: 01/13/24 20:23 Dose: 20 mg Polyethylene Glycol (Polyethylene Glycol 3350 17 Gm Powd.Pack) 17 gm PO DAILY PRN PRN Reason: Constipation Rilpivirine (Rilpivirine Hcl 25 Mg Tablet) 25 mg PO DAILY [facility] Last Admin: 01/14/24 08:37 Dose: 25 mg Thiamine HCl (Thiamine Hcl 100 Mg Tablet) 100 mg PO DAILY [facility] Last Admin: 01/14/24 08:37 Dose: 100 mg Trazodone HCl (Trazodone Hcl 50 Mg Tablet) 50 mg PO BEDTIME MRX1 [facility] Last Admin: 01/13/24 21:27 Dose: 50 mg Allergies Allergies Allergy/AdvReac Type Severity Reaction Status Date / Time No Known Allergies Allergy Unverified 01/28/20 16:07 [No Known Allergies*] Assessment & Plan Assessment & Plan (1) Schizoaffective disorder, bipolar type: Status: Acute Code(s): F25.0 - Schizoaffective disorder, bipolar type Assessment and Plan: 11/01 mildly up - positive mood=- but less irritable than in past visits 11/02 CTP (2) Dementia: Status: Acute Code(s): F03.90 - Unspecified dementia, unspecified severity, without behavioral disturbance, psychotic disturbance, mood disturbance, and anxiety Assessment and Plan: 11/01 ongoing dementia continue with reorientation and distraction prn - (3) Noncompliance: Status: Acute Code(s): Z91.199 - Patient's noncompliance with other medical treatment and regimen due to unspecified reason Assessment and Plan: seems to be taking medication currently - watches nurse crush them and put in ice cream Plan The patient is an elderly male with a past history of schizoaffective disorder, dementia, HIV and other medical problems, chronically mentally ill resident of assisted living facility referred to this facility after he became non compliant with medications with daniella and psychosis. The patient was assessed by crisis and transferring to this facility for psychiatric stabilization. At the moment of the interview the patient was able to contract for safety. Plan 1. Continue with same treatment. 2. Waiting for placement 3. The patient had been referred to [facility] and guardianship was already filed with more Lopez for placement. Reason for continued inpatient stay Substantial Risk for: inability to function, rapid decompensation and med/psych decompensation Time Spent With Patient Time: Total time managing care of this patient today __20__ minutes.
[2024-01-14 20:00] VITALS: BP 99/63; PULSE 88; RESP 18; TEMP 36.6; O2SAT 94
[2024-01-14] MEDS: Mirtazapine 15 MG TABLET PO (20:55)
[2024-01-14] MEDS: OLANZapine 10 MG TABLET 20 MG PO (20:55)
[2024-01-14] MEDS: Multivitamin TABLET 1 TAB PO (20:55)
[2024-01-14] MEDS: traZODone HCL 50 MG TABLET PO (20:57)
[2024-01-15 08:05] VITALS: BP 117/72; PULSE 88; RESP 18; TEMP 36.6; O2SAT 94
[2024-01-15 08:18] VITALS: BP 117/72
[2024-01-15] MEDS: OLANZapine 5 MG TABLET PO ×2 (08:18→14:45)
[2024-01-15] MEDS: Emtricitabin/Tenofovir 200/300 TABLET 1 TAB PO (08:18)
[2024-01-15] MEDS: levETIRAcetam 500 MG TABLET PO ×2 (08:18→20:32)
[2024-01-15] MEDS: HaloperidoL 5 MG TABLET PO ×2 (08:18→20:32)
[2024-01-15] MEDS: amLODIPine Besylate 5 MG TABLET PO (08:18)
[2024-01-15] MEDS: Thiamine HCL 100 MG TABLET PO (08:18)
[2024-01-15] MEDS: Divalproex Sodium Sprinkles 125 MG CAP.DR.SPR 250 MG PO ×3 (08:18→20:33)
[2024-01-15] MEDS: Rilpivirine HCL 25 MG TABLET PO (08:18)
--- NOTE | 2024-01-15 13:55 | HO.PSYCHPN ---
Subjective Subjective Date of Service: 01/15/24 Reason For Visit: F32.9 Subjective Notes: Conditional Voluntary Interim History: The nursing staff reported the patient had been compliant with treatment, no changes in his mental status. On interview the patient denies new symptoms, waiting for placement. Mental Status Exam Mental Status Exam Patient Appearance: Appropriate Patient Orientation: Person and Situation Level of Consciousness: Awake and Appropriate Patient Behavior: Cooperative Mood Description: Calm Affect Description: Constricted Patient Cognition Impaired: Yes Ability to Follow Directions: Good Speech Pattern: Clear Hallucinations: None Delusions: Ideas of Reference Thought Process: Distracted and Slowed Thinking Thought Content: positive for [place] and positive for Poverty of Content Judgement: Fair Diagnostics Vital Signs (24Hr): Vital Signs - 24 hr 01/14/24 20:00 01/15/24 08:05 01/15/24 08:18 Temperature 97.8 F 97.8 F Pulse Rate 88 88 Respiratory Rate 18 18 Blood Pressure 99/63 117/72 117/72 Pulse Oximetry 94 94 Oxygen Delivery Method Room Air Room Air BMI result Body Mass Index 19.7 Labs 11/19/23 08:03 11/19/23 08:03 Medications Medications Current Medications Acetaminophen (Acetaminophen 325 Mg Tablet) 650 mg PO Q6H PRN PRN Reason: Pain (Scale Score 1-3) Last Admin: 12/19/23 20:10 Dose: 650 mg Al Hydroxide/Mg Hydroxide (Magnesium Hydrox/Alum Hydrox 30 Ml Oral.Susp) 30 ml PO Q6H PRN PRN Reason: Heartburn/Nausea Last Admin: 11/12/23 06:20 Dose: 30 ml Albuterol Sulfate (Albuterol Sulfate 90 Mcg 8 Gm Inhaler) 2 puff INHALE RQ4H PRN PRN Reason: Wheezing Amlodipine Besylate (Amlodipine Besylate 5 Mg Tablet) 5 mg PO DAILY [facility]; Protocol Last Admin: 01/15/24 08:18 Dose: 5 mg Divalproex Sodium (Divalproex Sodium Sprinkles 125 Mg ) 250 mg PO TID [facility] Last Admin: 01/15/24 08:18 Dose: 250 mg Emtricitabine/Tenofovir (Emtricitabin/Tenofovir 200/300 Tablet) 1 tab PO DAILY [facility] Last Admin: 01/15/24 08:18 Dose: 1 tab Haloperidol (Haloperidol 5 Mg Tablet) 5 mg PO BID [facility] Last Admin: 01/15/24 08:18 Dose: 5 mg Haloperidol Decanoate (Haloperidol Decanoate 50 Mg/Ml Vial) 100 mg IM Q28D [facility] Last Admin: 12/23/23 21:14 Dose: 100 mg Levetiracetam (Levetiracetam 500 Mg Tablet) 500 mg PO BID [facility] Last Admin: 01/15/24 08:18 Dose: 500 mg Magnesium Hydroxide (Milk Of Magnesia 30 Ml Oral.Susp) 30 ml PO DAILY PRN PRN Reason: Constipation Mirtazapine (Mirtazapine 15 Mg Tablet) 15 mg PO BEDTIME [facility] Last Admin: 01/14/24 20:55 Dose: 15 mg Multivitamins/Vitamin C (Multivitamin Tablet) 1 tab PO BEDTIME [facility] Last Admin: 01/14/24 20:55 Dose: 1 tab Nicotine Polacrilex (Nicotine Polacrilex 2 Mg Gum) 4 mg BUCCAL Q2H PRN PRN Reason: Nicotine Cravings Olanzapine (Olanzapine 5 Mg Tablet) 5 mg PO BID@0800,1500 [facility] Last Admin: 01/15/24 08:18 Dose: 5 mg Olanzapine (Olanzapine 10 Mg Vial) 5 mg IM BID@0800,1500 PRN PRN Reason: if refuses 0800/1500 PO zyprexa Last Admin: 10/13/23 14:58 Dose: 5 mg Olanzapine (Olanzapine 10 Mg Tablet) 20 mg PO BEDTIME [facility] Last Admin: 01/14/24 20:55 Dose: 20 mg Polyethylene Glycol (Polyethylene Glycol 3350 17 Gm Powd.Pack) 17 gm PO DAILY PRN PRN Reason: Constipation Rilpivirine (Rilpivirine Hcl 25 Mg Tablet) 25 mg PO DAILY [facility] Last Admin: 01/15/24 08:18 Dose: 25 mg Thiamine HCl (Thiamine Hcl 100 Mg Tablet) 100 mg PO DAILY [facility] Last Admin: 01/15/24 08:18 Dose: 100 mg Trazodone HCl (Trazodone Hcl 50 Mg Tablet) 50 mg PO BEDTIME MRX1 [facility] Last Admin: 01/14/24 21:01 Dose: Not Given Allergies Allergies Allergy/AdvReac Type Severity Reaction Status Date / Time No Known Allergies Allergy Unverified 01/28/20 16:07 [No Known Allergies*] Assessment & Plan Assessment & Plan (1) Schizoaffective disorder, bipolar type: Status: Acute Code(s): F25.0 - Schizoaffective disorder, bipolar type Assessment and Plan: 11/01 mildly up - positive mood=- but less irritable than in past visits 11/02 CTP (2) Dementia: Status: Acute Code(s): F03.90 - Unspecified dementia, unspecified severity, without behavioral disturbance, psychotic disturbance, mood disturbance, and anxiety Assessment and Plan: 11/01 ongoing dementia continue with reorientation and distraction prn - (3) Noncompliance: Status: Acute Code(s): Z91.199 - Patient's noncompliance with other medical treatment and regimen due to unspecified reason Assessment and Plan: seems to be taking medication currently - watches nurse crush them and put in ice cream Plan The patient is an elderly male with a past history of schizoaffective disorder, dementia, HIV and other medical problems, chronically mentally ill resident of assisted living facility referred to this facility after he became non compliant with medications with daniella and psychosis. The patient was assessed by crisis and transferring to this facility for psychiatric stabilization. At the moment of the interview the patient was able to contract for safety. Plan 1. Continue with same treatment. 2. Waiting for placement 3. The patient had been referred to [facility] and guardianship was already filed with more Lopez for placement. Reason for continued inpatient stay Substantial Risk for: inability to function, rapid decompensation and med/psych decompensation Time Spent With Patient Time: Total time managing care of this patient today __20__ minutes.
--- NOTE | 2024-01-15 14:01 | MHC.CLN ---
F/U DIET=REGULAR. ENSURE TID TO INCREASE KCALS/NUTRITION (1050 KCALS, 60 G PROTEIN). CONTINUES WITH USUALLY GOOD INTAKE, 100% MOST MEALS. BMI=19.7 BUT IS 82% IBW. UNDERWEIGHT APPEARS TO BE BASELINE. FOLLOW FOR INTAKE OF MEALS AND SUPPLEMENT. RD TO FOLLOW UP EVERY OTHER WEEK.
[2024-01-15 20:00] VITALS: BP 110/70; PULSE 78; RESP 16; TEMP 36.4; O2SAT 95
[2024-01-15] MEDS: OLANZapine 10 MG TABLET 20 MG PO (20:31)
[2024-01-15] MEDS: Multivitamin TABLET 1 TAB PO (20:32)
[2024-01-15] MEDS: traZODone HCL 50 MG TABLET PO (20:32)
[2024-01-15] MEDS: Mirtazapine 15 MG TABLET PO (20:34)
[2024-01-16 08:00] VITALS: BP 159/94; PULSE 105; RESP 17; TEMP 36; O2SAT 97
[2024-01-16] MEDS: OLANZapine 5 MG TABLET PO ×2 (08:17→15:17)
[2024-01-16] MEDS: HaloperidoL 5 MG TABLET PO ×2 (08:17→20:56)
[2024-01-16] MEDS: levETIRAcetam 500 MG TABLET PO ×2 (08:18→20:56)
[2024-01-16] MEDS: Divalproex Sodium Sprinkles 125 MG CAP.DR.SPR 250 MG PO ×3 (08:18→20:55)
[2024-01-16] MEDS: amLODIPine Besylate 5 MG TABLET PO (08:18)
[2024-01-16] MEDS: Emtricitabin/Tenofovir 200/300 TABLET 1 TAB PO (08:18)
[2024-01-16] MEDS: Rilpivirine HCL 25 MG TABLET PO (08:18)
[2024-01-16] MEDS: Thiamine HCL 100 MG TABLET PO (08:18)
[2024-01-16 10:33] VITALS: BMI 19.7
--- NOTE | 2024-01-16 12:39 | P.PNPSI_ITS ---
Subjective Subjective Date of Service: 01/16/24 Reason For Visit: F32.9 Subjective Notes: Conditional Voluntary Interim History: The nursing staff reported no changes in his mental status cooperative and pleasant. On interview the patient denies new symptoms, waiting for placement. Mental Status Exam Mental Status Exam Patient Appearance: Appropriate Patient Orientation: Person and Situation Level of Consciousness: Awake and Appropriate Patient Behavior: Guarded and Passive Mood Description: Withdrawn Affect Description: Constricted Patient Cognition Impaired: Yes Ability to Follow Directions: Good Speech Pattern: Clear Hallucinations: None Delusions: Not Present Thought Process: Distracted and Slowed Thinking Thought Content: positive for [place] and positive for Poverty of Content Judgement: Fair Diagnostics Vital Signs (24Hr): Vital Signs - 24 hr 01/15/24 20:00 01/16/24 08:00 Temperature 97.6 F 96.8 F Pulse Rate 78 105 H Respiratory Rate 16 17 Blood Pressure 110/70 159/94 H Pulse Oximetry 95 97 Oxygen Delivery Method Room Air Room Air BMI result Body Mass Index 19.7 Labs 11/19/23 08:03 11/19/23 08:03 Medications Medications Current Medications Acetaminophen (Acetaminophen 325 Mg Tablet) 650 mg PO Q6H PRN PRN Reason: Pain (Scale Score 1-3) Last Admin: 12/19/23 20:10 Dose: 650 mg Al Hydroxide/Mg Hydroxide (Magnesium Hydrox/Alum Hydrox 30 Ml Oral.Susp) 30 ml PO Q6H PRN PRN Reason: Heartburn/Nausea Last Admin: 11/12/23 06:20 Dose: 30 ml Albuterol Sulfate (Albuterol Sulfate 90 Mcg 8 Gm Inhaler) 2 puff INHALE RQ4H PRN PRN Reason: Wheezing Amlodipine Besylate (Amlodipine Besylate 5 Mg Tablet) 5 mg PO DAILY [facility]; Protocol Last Admin: 01/16/24 08:18 Dose: 5 mg Divalproex Sodium (Divalproex Sodium Sprinkles 125 Mg ) 250 mg PO TID [facility] Last Admin: 01/16/24 08:18 Dose: 250 mg Emtricitabine/Tenofovir (Emtricitabin/Tenofovir 200/300 Tablet) 1 tab PO DAILY [facility] Last Admin: 01/16/24 08:18 Dose: 1 tab Haloperidol (Haloperidol 5 Mg Tablet) 5 mg PO BID [facility] Last Admin: 01/16/24 08:17 Dose: 5 mg Haloperidol Decanoate (Haloperidol Decanoate 50 Mg/Ml Vial) 100 mg IM Q28D [facility] Last Admin: 12/23/23 21:14 Dose: 100 mg Levetiracetam (Levetiracetam 500 Mg Tablet) 500 mg PO BID [facility] Last Admin: 01/16/24 08:18 Dose: 500 mg Magnesium Hydroxide (Milk Of Magnesia 30 Ml Oral.Susp) 30 ml PO DAILY PRN PRN Reason: Constipation Mirtazapine (Mirtazapine 15 Mg Tablet) 15 mg PO BEDTIME [facility] Last Admin: 01/15/24 20:34 Dose: 15 mg Multivitamins/Vitamin C (Multivitamin Tablet) 1 tab PO BEDTIME [facility] Last Admin: 01/15/24 20:32 Dose: 1 tab Nicotine Polacrilex (Nicotine Polacrilex 2 Mg Gum) 4 mg BUCCAL Q2H PRN PRN Reason: Nicotine Cravings Olanzapine (Olanzapine 5 Mg Tablet) 5 mg PO BID@0800,1500 [facility] Last Admin: 01/16/24 08:17 Dose: 5 mg Olanzapine (Olanzapine 10 Mg Vial) 5 mg IM BID@0800,1500 PRN PRN Reason: if refuses 0800/1500 PO zyprexa Last Admin: 10/13/23 14:58 Dose: 5 mg Olanzapine (Olanzapine 10 Mg Tablet) 20 mg PO BEDTIME [facility] Last Admin: 01/15/24 20:31 Dose: 20 mg Polyethylene Glycol (Polyethylene Glycol 3350 17 Gm Powd.Pack) 17 gm PO DAILY PRN PRN Reason: Constipation Rilpivirine (Rilpivirine Hcl 25 Mg Tablet) 25 mg PO DAILY [facility] Last Admin: 01/16/24 08:18 Dose: 25 mg Thiamine HCl (Thiamine Hcl 100 Mg Tablet) 100 mg PO DAILY [facility] Last Admin: 01/16/24 08:18 Dose: 100 mg Trazodone HCl (Trazodone Hcl 50 Mg Tablet) 50 mg PO BEDTIME MRX1 [facility] Last Admin: 01/15/24 23:17 Dose: Not Given Allergies Allergies Allergy/AdvReac Type Severity Reaction Status Date / Time No Known Allergies Allergy Unverified 01/28/20 16:07 [No Known Allergies*] Assessment & Plan Assessment & Plan (1) Schizoaffective disorder, bipolar type: Status: Acute Code(s): F25.0 - Schizoaffective disorder, bipolar type Assessment and Plan: 11/01 mildly up - positive mood=- but less irritable than in past visits 11/02 CTP (2) Dementia: Status: Acute Code(s): F03.90 - Unspecified dementia, unspecified severity, without behavioral disturbance, psychotic disturbance, mood disturbance, and anxiety Assessment and Plan: 11/01 ongoing dementia continue with reorientation and distraction prn - (3) Noncompliance: Status: Acute Code(s): Z91.199 - Patient's noncompliance with other medical treatment and regimen due to unspecified reason Assessment and Plan: seems to be taking medication currently - watches nurse crush them and put in ice cream Plan The patient is an elderly male with a past history of schizoaffective disorder, dementia, HIV and other medical problems, chronically mentally ill resident of assisted living facility referred to this facility after he became non compliant with medications with daniella and psychosis. The patient was assessed by crisis and transferring to this facility for psychiatric stabilization. At the moment of the interview the patient was able to contract for safety. Plan 1. Continue with same treatment. 2. Waiting for placement 3. The patient had been referred to [facility] and guardianship was already filed with more Lopez for placement. Reason for continued inpatient stay Substantial Risk for: inability to function, rapid decompensation and med/psych decompensation Time Spent With Patient Time: Total time managing care of this patient today __20__ minutes.
[2024-01-16 20:00] VITALS: BP 100/64; PULSE 89; RESP 16; TEMP 36.4; O2SAT 100
[2024-01-16] MEDS: Mirtazapine 15 MG TABLET PO (20:55)
[2024-01-16] MEDS: OLANZapine 10 MG TABLET 20 MG PO (20:55)
[2024-01-16] MEDS: Multivitamin TABLET 1 TAB PO (20:56)
[2024-01-16] MEDS: traZODone HCL 50 MG TABLET PO (20:56)
[2024-01-17 08:00] VITALS: BP 107/71; PULSE 100; RESP 17; TEMP 36.8; O2SAT 95
[2024-01-17] MEDS: HaloperidoL 5 MG TABLET PO ×2 (08:11→19:54)
[2024-01-17] MEDS: amLODIPine Besylate 5 MG TABLET PO (08:11)
[2024-01-17] MEDS: Rilpivirine HCL 25 MG TABLET PO (08:11)
[2024-01-17] MEDS: levETIRAcetam 500 MG TABLET PO ×2 (08:11→19:54)
[2024-01-17] MEDS: OLANZapine 5 MG TABLET PO ×2 (08:11→15:16)
[2024-01-17] MEDS: Divalproex Sodium Sprinkles 125 MG CAP.DR.SPR 250 MG PO ×3 (08:11→19:53)
[2024-01-17] MEDS: Emtricitabin/Tenofovir 200/300 TABLET 1 TAB PO (08:11)
[2024-01-17] MEDS: Thiamine HCL 100 MG TABLET PO (08:11)
--- NOTE | 2024-01-17 13:46 | P.PNPSI_ITS ---
Subjective Subjective Date of Service: 01/17/24 Reason For Visit: F32.9 Subjective Notes: Conditional Voluntary Interim History: The nursing staff reported no changes in his mental status, cooperative pleasant slightly hypoactive. On interview the patient denies new symptoms, waiting for placement. Mental Status Exam Mental Status Exam Patient Appearance: Appropriate Patient Orientation: Person and Situation Level of Consciousness: Awake and Appropriate Patient Behavior: Guarded and Passive Mood Description: Withdrawn Affect Description: Constricted Patient Cognition Impaired: Yes Ability to Follow Directions: Good Speech Pattern: Clear Hallucinations: None Delusions: Not Present Thought Process: Distracted and Slowed Thinking Thought Content: positive for [place] and positive for Poverty of Content Judgement: Fair Diagnostics Vital Signs (24Hr): Vital Signs - 24 hr 01/16/24 20:00 01/17/24 08:00 Temperature 97.6 F 98.2 F Pulse Rate 89 100 Respiratory Rate 16 17 Blood Pressure 100/64 107/71 Pulse Oximetry 100 95 Oxygen Delivery Method Room Air Room Air BMI result Body Mass Index 19.7 Labs 11/19/23 08:03 11/19/23 08:03 Medications Medications Current Medications Acetaminophen (Acetaminophen 325 Mg Tablet) 650 mg PO Q6H PRN PRN Reason: Pain (Scale Score 1-3) Last Admin: 12/19/23 20:10 Dose: 650 mg Al Hydroxide/Mg Hydroxide (Magnesium Hydrox/Alum Hydrox 30 Ml Oral.Susp) 30 ml PO Q6H PRN PRN Reason: Heartburn/Nausea Last Admin: 11/12/23 06:20 Dose: 30 ml Albuterol Sulfate (Albuterol Sulfate 90 Mcg 8 Gm Inhaler) 2 puff INHALE RQ4H PRN PRN Reason: Wheezing Amlodipine Besylate (Amlodipine Besylate 5 Mg Tablet) 5 mg PO DAILY [facility]; Protocol Last Admin: 01/17/24 08:11 Dose: 5 mg Divalproex Sodium (Divalproex Sodium Sprinkles 125 Mg ) 250 mg PO TID [facility] Last Admin: 01/17/24 08:11 Dose: 250 mg Emtricitabine/Tenofovir (Emtricitabin/Tenofovir 200/300 Tablet) 1 tab PO DAILY [facility] Last Admin: 01/17/24 08:11 Dose: 1 tab Haloperidol (Haloperidol 5 Mg Tablet) 5 mg PO BID [facility] Last Admin: 01/17/24 08:11 Dose: 5 mg Haloperidol Decanoate (Haloperidol Decanoate 50 Mg/Ml Vial) 100 mg IM Q28D [facility] Last Admin: 12/23/23 21:14 Dose: 100 mg Levetiracetam (Levetiracetam 500 Mg Tablet) 500 mg PO BID [facility] Last Admin: 01/17/24 08:11 Dose: 500 mg Magnesium Hydroxide (Milk Of Magnesia 30 Ml Oral.Susp) 30 ml PO DAILY PRN PRN Reason: Constipation Mirtazapine (Mirtazapine 15 Mg Tablet) 15 mg PO BEDTIME [facility] Last Admin: 01/16/24 20:55 Dose: 15 mg Multivitamins/Vitamin C (Multivitamin Tablet) 1 tab PO BEDTIME [facility] Last Admin: 01/16/24 20:56 Dose: 1 tab Nicotine Polacrilex (Nicotine Polacrilex 2 Mg Gum) 4 mg BUCCAL Q2H PRN PRN Reason: Nicotine Cravings Olanzapine (Olanzapine 5 Mg Tablet) 5 mg PO BID@0800,1500 [facility] Last Admin: 01/17/24 08:11 Dose: 5 mg Olanzapine (Olanzapine 10 Mg Vial) 5 mg IM BID@0800,1500 PRN PRN Reason: if refuses 0800/1500 PO zyprexa Last Admin: 10/13/23 14:58 Dose: 5 mg Olanzapine (Olanzapine 10 Mg Tablet) 20 mg PO BEDTIME [facility] Last Admin: 01/16/24 20:55 Dose: 20 mg Polyethylene Glycol (Polyethylene Glycol 3350 17 Gm Powd.Pack) 17 gm PO DAILY PRN PRN Reason: Constipation Rilpivirine (Rilpivirine Hcl 25 Mg Tablet) 25 mg PO DAILY [facility] Last Admin: 01/17/24 08:11 Dose: 25 mg Thiamine HCl (Thiamine Hcl 100 Mg Tablet) 100 mg PO DAILY [facility] Last Admin: 01/17/24 08:11 Dose: 100 mg Trazodone HCl (Trazodone Hcl 50 Mg Tablet) 50 mg PO BEDTIME MRX1 [facility] Last Admin: 01/16/24 23:04 Dose: Not Given Allergies Allergies Allergy/AdvReac Type Severity Reaction Status Date / Time No Known Allergies Allergy Unverified 01/28/20 16:07 [No Known Allergies*] Assessment & Plan Assessment & Plan (1) Schizoaffective disorder, bipolar type: Status: Acute Code(s): F25.0 - Schizoaffective disorder, bipolar type Assessment and Plan: 11/01 mildly up - positive mood=- but less irritable than in past visits 11/02 CTP (2) Dementia: Status: Acute Code(s): F03.90 - Unspecified dementia, unspecified severity, without behavioral disturbance, psychotic disturbance, mood disturbance, and anxiety Assessment and Plan: 11/01 ongoing dementia continue with reorientation and distraction prn - (3) Noncompliance: Status: Acute Code(s): Z91.199 - Patient's noncompliance with other medical treatment and regimen due to unspecified reason Assessment and Plan: seems to be taking medication currently - watches nurse crush them and put in ice cream Plan The patient is an elderly male with a past history of schizoaffective disorder, dementia, HIV and other medical problems, chronically mentally ill resident of assisted living facility referred to this facility after he became non compliant with medications with daniella and psychosis. The patient was assessed by crisis and transferring to this facility for psychiatric stabilization. At the moment of the interview the patient was able to contract for safety. Plan 1. Continue with same treatment. 2. Waiting for placement 3. The patient had been referred to [facility] and guardianship was already filed with more Lopez for placement. Reason for continued inpatient stay Substantial Risk for: inability to function, rapid decompensation and med/psych decompensation Time Spent With Patient Time: Total time managing care of this patient today __20__ minutes.
[2024-01-17 19:52] VITALS: BP 90/53; PULSE 90; RESP 16; TEMP 36.2; O2SAT 94
[2024-01-17] MEDS: OLANZapine 10 MG TABLET 20 MG PO (19:53)
[2024-01-17] MEDS: Multivitamin TABLET 1 TAB PO (19:54)
[2024-01-17] MEDS: traZODone HCL 50 MG TABLET PO ×2 (19:54→19:57)
[2024-01-17] MEDS: Mirtazapine 15 MG TABLET PO (19:54)
[2024-01-18 08:00] VITALS: BP 116/67; PULSE 96; RESP 16; TEMP 36.3; O2SAT 97
[2024-01-18 08:27] VITALS: BP 116/67
[2024-01-18] MEDS: amLODIPine Besylate 5 MG TABLET PO (08:27)
[2024-01-18] MEDS: Rilpivirine HCL 25 MG TABLET PO (08:28)
[2024-01-18] MEDS: HaloperidoL 5 MG TABLET PO ×2 (08:28→20:37)
[2024-01-18] MEDS: Thiamine HCL 100 MG TABLET PO (08:28)
[2024-01-18] MEDS: Divalproex Sodium Sprinkles 125 MG CAP.DR.SPR 250 MG PO ×3 (08:28→20:36)
[2024-01-18] MEDS: OLANZapine 5 MG TABLET PO ×2 (08:28→14:43)
[2024-01-18] MEDS: levETIRAcetam 500 MG TABLET PO ×2 (08:28→20:36)
[2024-01-18] MEDS: Emtricitabin/Tenofovir 200/300 TABLET 1 TAB PO (08:28)
--- NOTE | 2024-01-18 09:25 | HO.PSYCHPN ---
Subjective Subjective Date of Service: 01/18/24 Reason For Visit: F32.9 Subjective Notes: Conditional Voluntary Interim History: The nursing staff reported the patient had been pleasant cooperative no changes in his mental status. On interview the patient denies new symptoms, waiting for placement Mental Status Exam Mental Status Exam Patient Appearance: Appropriate Patient Orientation: Person and Situation Level of Consciousness: Awake and Appropriate Patient Behavior: Guarded and Passive Mood Description: Calm Affect Description: Constricted Patient Cognition Impaired: Yes Ability to Follow Directions: Good Speech Pattern: Clear Hallucinations: None Delusions: Not Present Thought Process: Distracted and Slowed Thinking Thought Content: positive for [place] and positive for Poverty of Content Judgement: Fair Diagnostics Vital Signs (24Hr): Vital Signs - 24 hr 01/17/24 19:52 01/18/24 08:00 01/18/24 08:27 Temperature 97.2 F 97.3 F Pulse Rate 90 96 Respiratory Rate 16 16 Blood Pressure 90/53 L 116/67 116/67 Pulse Oximetry 94 97 Oxygen Delivery Method Room Air Room Air BMI result Body Mass Index 19.7 Labs 11/19/23 08:03 11/19/23 08:03 Medications Medications Current Medications Acetaminophen (Acetaminophen 325 Mg Tablet) 650 mg PO Q6H PRN PRN Reason: Pain (Scale Score 1-3) Last Admin: 12/19/23 20:10 Dose: 650 mg Al Hydroxide/Mg Hydroxide (Magnesium Hydrox/Alum Hydrox 30 Ml Oral.Susp) 30 ml PO Q6H PRN PRN Reason: Heartburn/Nausea Last Admin: 11/12/23 06:20 Dose: 30 ml Albuterol Sulfate (Albuterol Sulfate 90 Mcg 8 Gm Inhaler) 2 puff INHALE RQ4H PRN PRN Reason: Wheezing Amlodipine Besylate (Amlodipine Besylate 5 Mg Tablet) 5 mg PO DAILY [facility]; Protocol Last Admin: 01/18/24 08:27 Dose: 5 mg Divalproex Sodium (Divalproex Sodium Sprinkles 125 Mg ) 250 mg PO TID [facility] Last Admin: 01/18/24 08:28 Dose: 250 mg Emtricitabine/Tenofovir (Emtricitabin/Tenofovir 200/300 Tablet) 1 tab PO DAILY [facility] Last Admin: 01/18/24 08:28 Dose: 1 tab Haloperidol (Haloperidol 5 Mg Tablet) 5 mg PO BID [facility] Last Admin: 01/18/24 08:28 Dose: 5 mg Haloperidol Decanoate (Haloperidol Decanoate 50 Mg/Ml Vial) 100 mg IM Q28D [facility] Last Admin: 12/23/23 21:14 Dose: 100 mg Levetiracetam (Levetiracetam 500 Mg Tablet) 500 mg PO BID [facility] Last Admin: 01/18/24 08:28 Dose: 500 mg Magnesium Hydroxide (Milk Of Magnesia 30 Ml Oral.Susp) 30 ml PO DAILY PRN PRN Reason: Constipation Mirtazapine (Mirtazapine 15 Mg Tablet) 15 mg PO BEDTIME [facility] Last Admin: 01/17/24 19:54 Dose: 15 mg Multivitamins/Vitamin C (Multivitamin Tablet) 1 tab PO BEDTIME [facility] Last Admin: 01/17/24 19:54 Dose: 1 tab Nicotine Polacrilex (Nicotine Polacrilex 2 Mg Gum) 4 mg BUCCAL Q2H PRN PRN Reason: Nicotine Cravings Olanzapine (Olanzapine 5 Mg Tablet) 5 mg PO BID@0800,1500 [facility] Last Admin: 01/18/24 08:28 Dose: 5 mg Olanzapine (Olanzapine 10 Mg Vial) 5 mg IM BID@0800,1500 PRN PRN Reason: if refuses 0800/1500 PO zyprexa Last Admin: 10/13/23 14:58 Dose: 5 mg Olanzapine (Olanzapine 10 Mg Tablet) 20 mg PO BEDTIME [facility] Last Admin: 01/17/24 19:53 Dose: 20 mg Polyethylene Glycol (Polyethylene Glycol 3350 17 Gm Powd.Pack) 17 gm PO DAILY PRN PRN Reason: Constipation Rilpivirine (Rilpivirine Hcl 25 Mg Tablet) 25 mg PO DAILY [facility] Last Admin: 01/18/24 08:28 Dose: 25 mg Thiamine HCl (Thiamine Hcl 100 Mg Tablet) 100 mg PO DAILY [facility] Last Admin: 01/18/24 08:28 Dose: 100 mg Trazodone HCl (Trazodone Hcl 50 Mg Tablet) 50 mg PO BEDTIME MRX1 [facility] Last Admin: 01/17/24 19:57 Dose: 50 mg Allergies Allergies Allergy/AdvReac Type Severity Reaction Status Date / Time No Known Allergies Allergy Unverified 01/28/20 16:07 [No Known Allergies*] Assessment & Plan Assessment & Plan (1) Schizoaffective disorder, bipolar type: Status: Acute Code(s): F25.0 - Schizoaffective disorder, bipolar type Assessment and Plan: 11/01 mildly up - positive mood=- but less irritable than in past visits 11/02 CTP (2) Dementia: Status: Acute Code(s): F03.90 - Unspecified dementia, unspecified severity, without behavioral disturbance, psychotic disturbance, mood disturbance, and anxiety Assessment and Plan: 11/01 ongoing dementia continue with reorientation and distraction prn - (3) Noncompliance: Status: Acute Code(s): Z91.199 - Patient's noncompliance with other medical treatment and regimen due to unspecified reason Assessment and Plan: seems to be taking medication currently - watches nurse crush them and put in ice cream Plan The patient is an elderly male with a past history of schizoaffective disorder, dementia, HIV and other medical problems, chronically mentally ill resident of assisted living facility referred to this facility after he became non compliant with medications with daniella and psychosis. The patient was assessed by crisis and transferring to this facility for psychiatric stabilization. At the moment of the interview the patient was able to contract for safety. Plan 1. Continue with same treatment. 2. Waiting for placement 3. The patient had been referred to [facility] and guardianship was already filed with more Lopez for placement. Reason for continued inpatient stay Substantial Risk for: inability to function, rapid decompensation and med/psych decompensation Time Spent With Patient Time: Total time managing care of this patient today __20__ minutes.
[2024-01-18 20:00] VITALS: BP 94/62; PULSE 56; RESP 16; TEMP 36.6; O2SAT 94
[2024-01-18] MEDS: OLANZapine 10 MG TABLET 20 MG PO (20:36)
[2024-01-18] MEDS: traZODone HCL 50 MG TABLET PO ×2 (20:37→20:39)
[2024-01-18] MEDS: Mirtazapine 15 MG TABLET PO (20:37)
[2024-01-18] MEDS: Multivitamin TABLET 1 TAB PO (20:37)
[2024-01-19 08:05] VITALS: BP 119/79; PULSE 99; RESP 18; TEMP 36; O2SAT 97
[2024-01-19] MEDS: Rilpivirine HCL 25 MG TABLET PO (08:35)
[2024-01-19] MEDS: levETIRAcetam 500 MG TABLET PO ×2 (08:35→19:41)
[2024-01-19] MEDS: HaloperidoL 5 MG TABLET PO ×2 (08:35→19:41)
[2024-01-19] MEDS: Divalproex Sodium Sprinkles 125 MG CAP.DR.SPR 250 MG PO ×3 (08:35→19:41)
[2024-01-19] MEDS: Emtricitabin/Tenofovir 200/300 TABLET 1 TAB PO (08:36)
[2024-01-19] MEDS: OLANZapine 5 MG TABLET PO ×2 (08:36→14:22)
[2024-01-19] MEDS: Thiamine HCL 100 MG TABLET PO (08:36)
[2024-01-19] MEDS: amLODIPine Besylate 5 MG TABLET PO (08:36)
--- NOTE | 2024-01-19 10:15 | P.PNPSI_ITS ---
Subjective Subjective Date of Service: 01/19/24 Reason For Visit: F32.9 Subjective Notes: Conditional Voluntary Interim History: The nursing staff reported the patient had been fully compliant with treatment, slept 8 hours. On interview the patient denies new symptoms we are going to try to taper him off Haldol slowly Mental Status Exam Mental Status Exam Patient Appearance: Appropriate Patient Orientation: Person and Situation Level of Consciousness: Awake and Appropriate Patient Behavior: Guarded and Passive Mood Description: Withdrawn Affect Description: Constricted Patient Cognition Impaired: Yes Ability to Follow Directions: Good Speech Pattern: Clear Hallucinations: None Delusions: Not Present Thought Process: Distracted and Slowed Thinking Thought Content: positive for [place] and positive for Poverty of Content Judgement: Poor Diagnostics Vital Signs (24Hr): Vital Signs - 24 hr 01/18/24 20:00 01/19/24 08:05 Temperature 97.8 F 96.8 F Pulse Rate 56 99 Respiratory Rate 16 18 Blood Pressure 94/62 119/79 Pulse Oximetry 94 97 Oxygen Delivery Method Room Air Room Air BMI result Body Mass Index 19.7 Labs 11/19/23 08:03 11/19/23 08:03 Medications Medications Current Medications Acetaminophen (Acetaminophen 325 Mg Tablet) 650 mg PO Q6H PRN PRN Reason: Pain (Scale Score 1-3) Last Admin: 12/19/23 20:10 Dose: 650 mg Al Hydroxide/Mg Hydroxide (Magnesium Hydrox/Alum Hydrox 30 Ml Oral.Susp) 30 ml PO Q6H PRN PRN Reason: Heartburn/Nausea Last Admin: 11/12/23 06:20 Dose: 30 ml Albuterol Sulfate (Albuterol Sulfate 90 Mcg 8 Gm Inhaler) 2 puff INHALE RQ4H PRN PRN Reason: Wheezing Amlodipine Besylate (Amlodipine Besylate 5 Mg Tablet) 5 mg PO DAILY [facility]; Protocol Last Admin: 01/19/24 08:36 Dose: 5 mg Divalproex Sodium (Divalproex Sodium Sprinkles 125 Mg ) 250 mg PO TID [facility] Last Admin: 01/19/24 08:35 Dose: 250 mg Emtricitabine/Tenofovir (Emtricitabin/Tenofovir 200/300 Tablet) 1 tab PO DAILY [facility] Last Admin: 01/19/24 08:36 Dose: 1 tab Haloperidol (Haloperidol 5 Mg Tablet) 5 mg PO BID [facility] Last Admin: 01/19/24 08:35 Dose: 5 mg Haloperidol Decanoate (Haloperidol Decanoate 50 Mg/Ml Vial) 100 mg IM Q28D [facility] Last Admin: 12/23/23 21:14 Dose: 100 mg Levetiracetam (Levetiracetam 500 Mg Tablet) 500 mg PO BID [facility] Last Admin: 01/19/24 08:35 Dose: 500 mg Magnesium Hydroxide (Milk Of Magnesia 30 Ml Oral.Susp) 30 ml PO DAILY PRN PRN Reason: Constipation Mirtazapine (Mirtazapine 15 Mg Tablet) 15 mg PO BEDTIME [facility] Last Admin: 01/18/24 20:37 Dose: 15 mg Multivitamins/Vitamin C (Multivitamin Tablet) 1 tab PO BEDTIME [facility] Last Admin: 01/18/24 20:37 Dose: 1 tab Nicotine Polacrilex (Nicotine Polacrilex 2 Mg Gum) 4 mg BUCCAL Q2H PRN PRN Reason: Nicotine Cravings Olanzapine (Olanzapine 5 Mg Tablet) 5 mg PO BID@0800,1500 [facility] Last Admin: 01/19/24 08:36 Dose: 5 mg Olanzapine (Olanzapine 10 Mg Vial) 5 mg IM BID@0800,1500 PRN PRN Reason: if refuses 0800/1500 PO zyprexa Last Admin: 10/13/23 14:58 Dose: 5 mg Olanzapine (Olanzapine 10 Mg Tablet) 20 mg PO BEDTIME [facility] Last Admin: 01/18/24 20:36 Dose: 20 mg Polyethylene Glycol (Polyethylene Glycol 3350 17 Gm Powd.Pack) 17 gm PO DAILY PRN PRN Reason: Constipation Rilpivirine (Rilpivirine Hcl 25 Mg Tablet) 25 mg PO DAILY [facility] Last Admin: 01/19/24 08:35 Dose: 25 mg Thiamine HCl (Thiamine Hcl 100 Mg Tablet) 100 mg PO DAILY [facility] Last Admin: 01/19/24 08:36 Dose: 100 mg Trazodone HCl (Trazodone Hcl 50 Mg Tablet) 50 mg PO BEDTIME MRX1 [facility] Last Admin: 01/18/24 20:39 Dose: 50 mg Allergies Allergies Allergy/AdvReac Type Severity Reaction Status Date / Time No Known Allergies Allergy Unverified 01/28/20 16:07 [No Known Allergies*] Assessment & Plan Assessment & Plan (1) Schizoaffective disorder, bipolar type: Status: Acute Code(s): F25.0 - Schizoaffective disorder, bipolar type Assessment and Plan: 11/01 mildly up - positive mood=- but less irritable than in past visits 11/02 CTP (2) Dementia: Status: Acute Code(s): F03.90 - Unspecified dementia, unspecified severity, without behavioral disturbance, psychotic disturbance, mood disturbance, and anxiety Assessment and Plan: 11/01 ongoing dementia continue with reorientation and distraction prn - (3) Noncompliance: Status: Acute Code(s): Z91.199 - Patient's noncompliance with other medical treatment and regimen due to unspecified reason Assessment and Plan: seems to be taking medication currently - watches nurse crush them and put in ice cream Plan The patient is an elderly male with a past history of schizoaffective disorder, dementia, HIV and other medical problems, chronically mentally ill resident of assisted living facility referred to this facility after he became non compliant with medications with daniella and psychosis. The patient was assessed by crisis and transferring to this facility for psychiatric stabilization. At the moment of the interview the patient was able to contract for safety. Plan 1. Continue with same treatment. 2. Waiting for placement 3. The patient had been referred to [facility] and guardianship was already filed with more Lopez for placement. 4. Continue tappering off Haldol Reason for continued inpatient stay Substantial Risk for: inability to function, rapid decompensation and med/psych decompensation Time Spent With Patient Time: Total time managing care of this patient today _20___ minutes.
[2024-01-19] MEDS: Mirtazapine 15 MG TABLET PO (19:41)
[2024-01-19] MEDS: Multivitamin TABLET 1 TAB PO (19:41)
[2024-01-19] MEDS: traZODone HCL 50 MG TABLET PO (19:41)
[2024-01-19] MEDS: OLANZapine 10 MG TABLET 20 MG PO (19:41)
[2024-01-19 20:00] VITALS: BP 87/60; PULSE 83; RESP 17; TEMP 36.1; O2SAT 94
[2024-01-20 09:00] VITALS: BP 122/67; PULSE 100; RESP 18; TEMP 36.1; O2SAT 95
[2024-01-20] MEDS: OLANZapine 5 MG TABLET PO ×2 (09:01→14:30)
[2024-01-20] MEDS: levETIRAcetam 500 MG TABLET PO ×2 (09:01→20:40)
[2024-01-20] MEDS: Divalproex Sodium Sprinkles 125 MG CAP.DR.SPR 250 MG PO ×3 (09:02→20:39)
[2024-01-20] MEDS: amLODIPine Besylate 5 MG TABLET PO (09:02)
[2024-01-20] MEDS: Emtricitabin/Tenofovir 200/300 TABLET 1 TAB PO (09:02)
[2024-01-20] MEDS: Thiamine HCL 100 MG TABLET PO (09:02)
[2024-01-20] MEDS: Rilpivirine HCL 25 MG TABLET PO (09:02)
--- NOTE | 2024-01-20 14:11 | P.PNPSI_ITS ---
Subjective Subjective Date of Service: 01/20/24 Reason For Visit: F32.9 Subjective Notes: Conditional Voluntary Interim History: The nursing staff reported no changes in his mental status cooperative pleasant slept 8 hours. On interview the patient denies new symptoms, we discussed the option of lowering his Haldol he was in a slightly over-sedated Mental Status Exam Mental Status Exam Patient Appearance: Appropriate Patient Orientation: Person and Situation Level of Consciousness: Awake and Appropriate Patient Behavior: Guarded and Passive Mood Description: Withdrawn Affect Description: Constricted Patient Cognition Impaired: Yes Ability to Follow Directions: Good Speech Pattern: Clear Hallucinations: None Delusions: Not Present Thought Process: Distracted and Slowed Thinking Thought Content: positive for [place] and positive for Poverty of Content Judgement: Fair Diagnostics Vital Signs (24Hr): Vital Signs - 24 hr 01/19/24 20:00 01/20/24 09:00 Temperature 97 F 96.9 F Pulse Rate 83 100 Respiratory Rate 17 18 Blood Pressure 87/60 L 122/67 Pulse Oximetry 94 95 Oxygen Delivery Method Room Air Room Air BMI result Body Mass Index 19.7 Labs 11/19/23 08:03 11/19/23 08:03 Medications Medications Current Medications Acetaminophen (Acetaminophen 325 Mg Tablet) 650 mg PO Q6H PRN PRN Reason: Pain (Scale Score 1-3) Last Admin: 12/19/23 20:10 Dose: 650 mg Al Hydroxide/Mg Hydroxide (Magnesium Hydrox/Alum Hydrox 30 Ml Oral.Susp) 30 ml PO Q6H PRN PRN Reason: Heartburn/Nausea Last Admin: 11/12/23 06:20 Dose: 30 ml Albuterol Sulfate (Albuterol Sulfate 90 Mcg 8 Gm Inhaler) 2 puff INHALE RQ4H PRN PRN Reason: Wheezing Amlodipine Besylate (Amlodipine Besylate 5 Mg Tablet) 5 mg PO DAILY [facility]; Protocol Last Admin: 01/20/24 09:02 Dose: 5 mg Divalproex Sodium (Divalproex Sodium Sprinkles 125 Mg ) 250 mg PO TID [facility] Last Admin: 01/20/24 09:02 Dose: 250 mg Emtricitabine/Tenofovir (Emtricitabin/Tenofovir 200/300 Tablet) 1 tab PO DAILY [facility] Last Admin: 01/20/24 09:02 Dose: 1 tab Haloperidol (Haloperidol 5 Mg Tablet) 5 mg PO BEDTIME [facility] Last Admin: 01/19/24 19:41 Dose: 5 mg Haloperidol Decanoate (Haloperidol Decanoate 50 Mg/Ml Vial) 100 mg IM Q28D [facility] Last Admin: 12/23/23 21:14 Dose: 100 mg Levetiracetam (Levetiracetam 500 Mg Tablet) 500 mg PO BID [facility] Last Admin: 01/20/24 09:01 Dose: 500 mg Magnesium Hydroxide (Milk Of Magnesia 30 Ml Oral.Susp) 30 ml PO DAILY PRN PRN Reason: Constipation Mirtazapine (Mirtazapine 15 Mg Tablet) 15 mg PO BEDTIME [facility] Last Admin: 01/19/24 19:41 Dose: 15 mg Multivitamins/Vitamin C (Multivitamin Tablet) 1 tab PO BEDTIME [facility] Last Admin: 01/19/24 19:41 Dose: 1 tab Nicotine Polacrilex (Nicotine Polacrilex 2 Mg Gum) 4 mg BUCCAL Q2H PRN PRN Reason: Nicotine Cravings Olanzapine (Olanzapine 5 Mg Tablet) 5 mg PO BID@0800,1500 [facility] Last Admin: 01/20/24 09:01 Dose: 5 mg Olanzapine (Olanzapine 10 Mg Vial) 5 mg IM BID@0800,1500 PRN PRN Reason: if refuses 0800/1500 PO zyprexa Last Admin: 10/13/23 14:58 Dose: 5 mg Olanzapine (Olanzapine 10 Mg Tablet) 20 mg PO BEDTIME [facility] Last Admin: 01/19/24 19:41 Dose: 20 mg Polyethylene Glycol (Polyethylene Glycol 3350 17 Gm Powd.Pack) 17 gm PO DAILY PRN PRN Reason: Constipation Rilpivirine (Rilpivirine Hcl 25 Mg Tablet) 25 mg PO DAILY [facility] Last Admin: 01/20/24 09:02 Dose: 25 mg Thiamine HCl (Thiamine Hcl 100 Mg Tablet) 100 mg PO DAILY [facility] Last Admin: 01/20/24 09:02 Dose: 100 mg Trazodone HCl (Trazodone Hcl 50 Mg Tablet) 50 mg PO BEDTIME MRX1 [facility] Last Admin: 01/20/24 00:52 Dose: Not Given Allergies Allergies Allergy/AdvReac Type Severity Reaction Status Date / Time No Known Allergies Allergy Unverified 01/28/20 16:07 [No Known Allergies*] Assessment & Plan Assessment & Plan (1) Schizoaffective disorder, bipolar type: Status: Acute Code(s): F25.0 - Schizoaffective disorder, bipolar type Assessment and Plan: 11/01 mildly up - positive mood=- but less irritable than in past visits 11/02 CTP (2) Dementia: Status: Acute Code(s): F03.90 - Unspecified dementia, unspecified severity, without behavioral disturbance, psychotic disturbance, mood disturbance, and anxiety Assessment and Plan: 11/01 ongoing dementia continue with reorientation and distraction prn - (3) Noncompliance: Status: Acute Code(s): Z91.199 - Patient's noncompliance with other medical treatment and regimen due to unspecified reason Assessment and Plan: seems to be taking medication currently - watches nurse crush them and put in ice cream Plan The patient is an elderly male with a past history of schizoaffective disorder, dementia, HIV and other medical problems, chronically mentally ill resident of assisted living facility referred to this facility after he became non compliant with medications with daniella and psychosis. The patient was assessed by crisis and transferring to this facility for psychiatric stabilization. At the moment of the interview the patient was able to contract for safety. Plan 1. Continue with same treatment. 2. Waiting for placement 3. The patient had been referred to [facility] and guardianship was already filed with more Lopez for placement. 4. Continue tappering off Haldol Reason for continued inpatient stay Substantial Risk for: inability to function, rapid decompensation and med/psych decompensation Time Spent With Patient Time: Total time managing care of this patient today __20__ minutes.
[2024-01-20 20:00] VITALS: BP 90/56; PULSE 102; RESP 18; TEMP 36.3; O2SAT 92
[2024-01-20] MEDS: OLANZapine 10 MG TABLET 20 MG PO (20:38)
[2024-01-20] MEDS: traZODone HCL 50 MG TABLET PO ×2 (20:39→23:15)
[2024-01-20] MEDS: Multivitamin TABLET 1 TAB PO (20:40)
[2024-01-20] MEDS: HaloperidoL 5 MG TABLET PO (20:40)
[2024-01-20] MEDS: Mirtazapine 15 MG TABLET PO (20:40)
[2024-01-20] MEDS: Haloperidol Decanoate 50 MG/ML VIAL 100 MG IM (23:24)
[2024-01-21 08:00] VITALS: BP 125/68; PULSE 96; RESP 18; TEMP 36.5; O2SAT 95
[2024-01-21 08:30] VITALS: BP 125/68
[2024-01-21] MEDS: Thiamine HCL 100 MG TABLET PO (08:30)
[2024-01-21] MEDS: amLODIPine Besylate 5 MG TABLET PO (08:30)
[2024-01-21] MEDS: Emtricitabin/Tenofovir 200/300 TABLET 1 TAB PO (08:30)
[2024-01-21] MEDS: levETIRAcetam 500 MG TABLET PO ×2 (08:31→20:56)
[2024-01-21] MEDS: Divalproex Sodium Sprinkles 125 MG CAP.DR.SPR 250 MG PO ×3 (08:31→20:56)
[2024-01-21] MEDS: OLANZapine 5 MG TABLET PO ×2 (08:31→14:40)
[2024-01-21] MEDS: Rilpivirine HCL 25 MG TABLET PO (08:31)
--- NOTE | 2024-01-21 12:22 | P.PNPSI_ITS ---
Subjective Subjective Date of Service: 01/21/24 Reason For Visit: F32.9 Subjective Notes: Conditional Voluntary Interim History: The nursing staff reported fully compliance with treatment, no changes on mental status. On interview, he denies new symptoms. Mental Status Exam Mental Status Exam Patient Appearance: Appropriate Patient Orientation: Person and Situation Level of Consciousness: Awake Patient Behavior: Guarded and Passive Mood Description: Withdrawn Affect Description: Constricted Patient Cognition Impaired: Yes Ability to Follow Directions: Good Speech Pattern: Clear Hallucinations: None Delusions: Not Present Thought Process: Distracted and Slowed Thinking Thought Content: positive for Poverty of Content Judgement: Poor Diagnostics Vital Signs (24Hr): Vital Signs - 24 hr 01/20/24 20:00 01/21/24 08:00 01/21/24 08:30 Temperature 97.4 F 97.7 F Pulse Rate 102 H 96 Respiratory Rate 18 18 Blood Pressure 90/56 L 125/68 125/68 Pulse Oximetry 92 95 Oxygen Delivery Method Room Air Room Air BMI result Body Mass Index 19.7 Labs 11/19/23 08:03 11/19/23 08:03 Medications Medications Current Medications Acetaminophen (Acetaminophen 325 Mg Tablet) 650 mg PO Q6H PRN PRN Reason: Pain (Scale Score 1-3) Last Admin: 12/19/23 20:10 Dose: 650 mg Al Hydroxide/Mg Hydroxide (Magnesium Hydrox/Alum Hydrox 30 Ml Oral.Susp) 30 ml PO Q6H PRN PRN Reason: Heartburn/Nausea Last Admin: 11/12/23 06:20 Dose: 30 ml Albuterol Sulfate (Albuterol Sulfate 90 Mcg 8 Gm Inhaler) 2 puff INHALE RQ4H PRN PRN Reason: Wheezing Amlodipine Besylate (Amlodipine Besylate 5 Mg Tablet) 5 mg PO DAILY [facility]; Protocol Last Admin: 01/21/24 08:30 Dose: 5 mg Divalproex Sodium (Divalproex Sodium Sprinkles 125 Mg ) 250 mg PO TID [facility] Last Admin: 01/21/24 08:31 Dose: 250 mg Emtricitabine/Tenofovir (Emtricitabin/Tenofovir 200/300 Tablet) 1 tab PO DAILY [facility] Last Admin: 01/21/24 08:30 Dose: 1 tab Haloperidol (Haloperidol 5 Mg Tablet) 5 mg PO BEDTIME [facility] Last Admin: 01/20/24 20:40 Dose: 5 mg Haloperidol Decanoate (Haloperidol Decanoate 50 Mg/Ml Vial) 100 mg IM Q28D [facility] Last Admin: 01/20/24 23:24 Dose: 100 mg Levetiracetam (Levetiracetam 500 Mg Tablet) 500 mg PO BID [facility] Last Admin: 01/21/24 08:31 Dose: 500 mg Magnesium Hydroxide (Milk Of Magnesia 30 Ml Oral.Susp) 30 ml PO DAILY PRN PRN Reason: Constipation Mirtazapine (Mirtazapine 15 Mg Tablet) 15 mg PO BEDTIME [facility] Last Admin: 01/20/24 20:40 Dose: 15 mg Multivitamins/Vitamin C (Multivitamin Tablet) 1 tab PO BEDTIME [facility] Last Admin: 01/20/24 20:40 Dose: 1 tab Nicotine Polacrilex (Nicotine Polacrilex 2 Mg Gum) 4 mg BUCCAL Q2H PRN PRN Reason: Nicotine Cravings Olanzapine (Olanzapine 5 Mg Tablet) 5 mg PO BID@0800,1500 [facility] Last Admin: 01/21/24 08:31 Dose: 5 mg Olanzapine (Olanzapine 10 Mg Vial) 5 mg IM BID@0800,1500 PRN PRN Reason: if refuses 0800/1500 PO zyprexa Last Admin: 10/13/23 14:58 Dose: 5 mg Olanzapine (Olanzapine 10 Mg Tablet) 20 mg PO BEDTIME [facility] Last Admin: 01/20/24 20:38 Dose: 20 mg Polyethylene Glycol (Polyethylene Glycol 3350 17 Gm Powd.Pack) 17 gm PO DAILY PRN PRN Reason: Constipation Rilpivirine (Rilpivirine Hcl 25 Mg Tablet) 25 mg PO DAILY [facility] Last Admin: 01/21/24 08:31 Dose: 25 mg Thiamine HCl (Thiamine Hcl 100 Mg Tablet) 100 mg PO DAILY [facility] Last Admin: 01/21/24 08:30 Dose: 100 mg Trazodone HCl (Trazodone Hcl 50 Mg Tablet) 50 mg PO BEDTIME MRX1 [facility] Last Admin: 01/20/24 23:15 Dose: 50 mg Allergies Allergies Allergy/AdvReac Type Severity Reaction Status Date / Time No Known Allergies Allergy Unverified 01/28/20 16:07 [No Known Allergies*] Assessment & Plan Assessment & Plan (1) Schizoaffective disorder, bipolar type: Status: Acute Code(s): F25.0 - Schizoaffective disorder, bipolar type Assessment and Plan: 6/22 mildly up - positive mood=- but less irritable than in past visits 11/02 CTP (2) Dementia: Status: Acute Code(s): F03.90 - Unspecified dementia, unspecified severity, without behavioral disturbance, psychotic disturbance, mood disturbance, and anxiety Assessment and Plan: 11/01 ongoing dementia continue with reorientation and distraction prn - (3) Noncompliance: Status: Acute Code(s): Z91.199 - Patient's noncompliance with other medical treatment and regimen due to unspecified reason Assessment and Plan: seems to be taking medication currently - watches nurse crush them and put in ice cream Plan The patient is an elderly male with a past history of schizoaffective disorder, dementia, HIV and other medical problems, chronically mentally ill resident of assisted living facility referred to this facility after he became non compliant with medications with daniella and psychosis. The patient was assessed by crisis and transferring to this facility for psychiatric stabilization. At the moment of the interview the patient was able to contract for safety. Plan 1. Continue with same treatment. 2. Waiting for placement 3. The patient had been referred to [facility] and guardianship was already filed with more Lopez for placement. 4. Continue tappering off Haldol Reason for continued inpatient stay Substantial Risk for: inability to function, rapid decompensation and med/psych decompensation Time Spent With Patient Time: Total time managing care of this patient today _20___ minutes.
[2024-01-21 20:00] VITALS: BP 101/61; PULSE 87; RESP 17; TEMP 37.2; O2SAT 93
[2024-01-21] MEDS: HaloperidoL 5 MG TABLET PO (20:56)
[2024-01-21] MEDS: traZODone HCL 50 MG TABLET PO (20:57)
[2024-01-21] MEDS: OLANZapine 10 MG TABLET 20 MG PO (20:57)
[2024-01-21] MEDS: Multivitamin TABLET 1 TAB PO (20:57)
[2024-01-21] MEDS: Mirtazapine 15 MG TABLET PO (20:57)
[2024-01-22 08:00] VITALS: BP 122/70; PULSE 94; RESP 18; TEMP 36.8; O2SAT 96
[2024-01-22] MEDS: Divalproex Sodium Sprinkles 125 MG CAP.DR.SPR 250 MG PO ×3 (08:18→20:48)
[2024-01-22] MEDS: levETIRAcetam 500 MG TABLET PO ×2 (08:19→20:48)
[2024-01-22] MEDS: amLODIPine Besylate 5 MG TABLET PO (08:19)
[2024-01-22] MEDS: Rilpivirine HCL 25 MG TABLET PO (08:19)
[2024-01-22] MEDS: Thiamine HCL 100 MG TABLET PO (08:19)
[2024-01-22] MEDS: Emtricitabin/Tenofovir 200/300 TABLET 1 TAB PO (08:19)
[2024-01-22] MEDS: OLANZapine 5 MG TABLET PO ×2 (08:19→14:50)
--- NOTE | 2024-01-22 10:13 | HO.PSYCHPN ---
Subjective Subjective Date of Service: 01/22/24 Reason For Visit: F32.9 Subjective Notes: Conditional Voluntary Interim History: The nursing staff reported the patient had been pleasant cooperative slept 8 hours, fully compliant with treatment. According to the staff report, he signed a CV but we can not find the document that was signed yesterday. On interview the patient denies new symptoms, waiting for placement. Mental Status Exam Mental Status Exam Patient Appearance: Appropriate Patient Orientation: Person and Situation Level of Consciousness: Awake and Appropriate Patient Behavior: Guarded and Passive Mood Description: Calm Affect Description: Constricted Patient Cognition Impaired: Yes Ability to Follow Directions: Good Speech Pattern: Clear Hallucinations: None Delusions: Not Present Thought Process: Distracted and Slowed Thinking Thought Content: positive for [place] and positive for Poverty of Content Judgement: Fair Diagnostics Vital Signs (24Hr): Vital Signs - 24 hr 01/21/24 20:00 01/22/24 08:00 Temperature 98.9 F 98.2 F Pulse Rate 87 94 Respiratory Rate 17 18 Blood Pressure 101/61 122/70 Pulse Oximetry 93 96 Oxygen Delivery Method Room Air Room Air BMI result Body Mass Index 19.7 Labs 11/19/23 08:03 11/19/23 08:03 Medications Medications Current Medications Acetaminophen (Acetaminophen 325 Mg Tablet) 650 mg PO Q6H PRN PRN Reason: Pain (Scale Score 1-3) Last Admin: 12/19/23 20:10 Dose: 650 mg Al Hydroxide/Mg Hydroxide (Magnesium Hydrox/Alum Hydrox 30 Ml Oral.Susp) 30 ml PO Q6H PRN PRN Reason: Heartburn/Nausea Last Admin: 11/12/23 06:20 Dose: 30 ml Albuterol Sulfate (Albuterol Sulfate 90 Mcg 8 Gm Inhaler) 2 puff INHALE RQ4H PRN PRN Reason: Wheezing Amlodipine Besylate (Amlodipine Besylate 5 Mg Tablet) 5 mg PO DAILY [facility]; Protocol Last Admin: 01/22/24 08:19 Dose: 5 mg Divalproex Sodium (Divalproex Sodium Sprinkles 125 Mg ) 250 mg PO TID [facility] Last Admin: 01/22/24 08:18 Dose: 250 mg Emtricitabine/Tenofovir (Emtricitabin/Tenofovir 200/300 Tablet) 1 tab PO DAILY [facility] Last Admin: 01/22/24 08:19 Dose: 1 tab Haloperidol (Haloperidol 5 Mg Tablet) 5 mg PO BEDTIME [facility] Last Admin: 01/21/24 20:56 Dose: 5 mg Haloperidol Decanoate (Haloperidol Decanoate 50 Mg/Ml Vial) 100 mg IM Q28D [facility] Last Admin: 01/20/24 23:24 Dose: 100 mg Levetiracetam (Levetiracetam 500 Mg Tablet) 500 mg PO BID [facility] Last Admin: 01/22/24 08:19 Dose: 500 mg Magnesium Hydroxide (Milk Of Magnesia 30 Ml Oral.Susp) 30 ml PO DAILY PRN PRN Reason: Constipation Mirtazapine (Mirtazapine 15 Mg Tablet) 15 mg PO BEDTIME [facility] Last Admin: 01/21/24 20:57 Dose: 15 mg Multivitamins/Vitamin C (Multivitamin Tablet) 1 tab PO BEDTIME [facility] Last Admin: 01/21/24 20:57 Dose: 1 tab Nicotine Polacrilex (Nicotine Polacrilex 2 Mg Gum) 4 mg BUCCAL Q2H PRN PRN Reason: Nicotine Cravings Olanzapine (Olanzapine 5 Mg Tablet) 5 mg PO BID@0800,1500 [facility] Last Admin: 01/22/24 08:19 Dose: 5 mg Olanzapine (Olanzapine 10 Mg Vial) 5 mg IM BID@0800,1500 PRN PRN Reason: if refuses 0800/1500 PO zyprexa Last Admin: 10/13/23 14:58 Dose: 5 mg Olanzapine (Olanzapine 10 Mg Tablet) 20 mg PO BEDTIME [facility] Last Admin: 01/21/24 20:57 Dose: 20 mg Polyethylene Glycol (Polyethylene Glycol 3350 17 Gm Powd.Pack) 17 gm PO DAILY PRN PRN Reason: Constipation Rilpivirine (Rilpivirine Hcl 25 Mg Tablet) 25 mg PO DAILY [facility] Last Admin: 01/22/24 08:19 Dose: 25 mg Thiamine HCl (Thiamine Hcl 100 Mg Tablet) 100 mg PO DAILY [facility] Last Admin: 01/22/24 08:19 Dose: 100 mg Trazodone HCl (Trazodone Hcl 50 Mg Tablet) 50 mg PO BEDTIME MRX1 [facility] Last Admin: 01/21/24 22:25 Dose: Not Given Allergies Allergies Allergy/AdvReac Type Severity Reaction Status Date / Time No Known Allergies Allergy Unverified 01/28/20 16:07 [No Known Allergies*] Assessment & Plan Assessment & Plan (1) Schizoaffective disorder, bipolar type: Status: Acute Code(s): F25.0 - Schizoaffective disorder, bipolar type Assessment and Plan: 11/01 mildly up - positive mood=- but less irritable than in past visits 11/02 CTP (2) Dementia: Status: Acute Code(s): F03.90 - Unspecified dementia, unspecified severity, without behavioral disturbance, psychotic disturbance, mood disturbance, and anxiety Assessment and Plan: 11/01 ongoing dementia continue with reorientation and distraction prn - (3) Noncompliance: Status: Acute Code(s): Z91.199 - Patient's noncompliance with other medical treatment and regimen due to unspecified reason Assessment and Plan: seems to be taking medication currently - watches nurse crush them and put in ice cream Plan The patient is an elderly male with a past history of schizoaffective disorder, dementia, HIV and other medical problems, chronically mentally ill resident of assisted living facility referred to this facility after he became non compliant with medications with daniella and psychosis. The patient was assessed by crisis and transferring to this facility for psychiatric stabilization. At the moment of the interview the patient was able to contract for safety. Plan 1. Continue with same treatment. 2. Waiting for placement 3. The patient had been referred to [facility] and guardianship was already filed with more Lopez for placement. 4. Continue tappering off Haldol Reason for continued inpatient stay Substantial Risk for: inability to function, rapid decompensation and med/psych decompensation Time Spent With Patient Time: Total time managing care of this patient today __20__ minutes.
[2024-01-22 20:00] VITALS: BP 115/71; PULSE 88; RESP 17; TEMP 36.1; O2SAT 92
[2024-01-22] MEDS: OLANZapine 10 MG TABLET 20 MG PO (20:47)
[2024-01-22] MEDS: Multivitamin TABLET 1 TAB PO (20:48)
[2024-01-22] MEDS: HaloperidoL 5 MG TABLET PO (20:48)
[2024-01-22] MEDS: Mirtazapine 15 MG TABLET PO (20:48)
[2024-01-22] MEDS: traZODone HCL 50 MG TABLET PO (20:49)
[2024-01-23 07:55] VITALS: BP 121/85; PULSE 99; RESP 18; TEMP 36.8; O2SAT 97
[2024-01-23] MEDS: OLANZapine 5 MG TABLET PO ×2 (08:47→15:00)
[2024-01-23] MEDS: Divalproex Sodium Sprinkles 125 MG CAP.DR.SPR 250 MG PO ×3 (08:47→20:18)
[2024-01-23] MEDS: Rilpivirine HCL 25 MG TABLET PO (08:47)
[2024-01-23] MEDS: Thiamine HCL 100 MG TABLET PO (08:47)
[2024-01-23] MEDS: amLODIPine Besylate 5 MG TABLET PO (08:47)
[2024-01-23] MEDS: levETIRAcetam 500 MG TABLET PO ×2 (08:47→20:18)
[2024-01-23] MEDS: Emtricitabin/Tenofovir 200/300 TABLET 1 TAB PO (08:55)
[2024-01-23 10:29] VITALS: BMI 19.7
--- NOTE | 2024-01-23 11:05 | HO.PSYCHPN ---
Subjective Subjective Date of Service: 01/23/24 Reason For Visit: F32.9 Subjective Notes: Conditional Voluntary Mental Status Exam Mental Status Exam Patient Appearance: Well Grooomed and Appropriate Patient Orientation: Person and Situation Level of Consciousness: Awake and Appropriate Patient Behavior: Guarded and Passive Mood Description: Withdrawn Affect Description: Constricted Patient Cognition Impaired: Yes Ability to Follow Directions: Good Speech Pattern: Clear Hallucinations: None Delusions: Ideas of Reference Thought Process: Distracted and Slowed Thinking Thought Content: positive for [place] and positive for Poverty of Content Judgement: Fair Diagnostics Vital Signs (24Hr): Vital Signs - 24 hr 01/22/24 20:00 Temperature 97 F Pulse Rate 88 Respiratory Rate 17 Blood Pressure 115/71 Pulse Oximetry 92 Oxygen Delivery Method Room Air BMI result Body Mass Index 19.7 Labs 11/19/23 08:03 11/19/23 08:03 Medications Medications Current Medications Acetaminophen (Acetaminophen 325 Mg Tablet) 650 mg PO Q6H PRN PRN Reason: Pain (Scale Score 1-3) Last Admin: 12/19/23 20:10 Dose: 650 mg Al Hydroxide/Mg Hydroxide (Magnesium Hydrox/Alum Hydrox 30 Ml Oral.Susp) 30 ml PO Q6H PRN PRN Reason: Heartburn/Nausea Last Admin: 11/12/23 06:20 Dose: 30 ml Albuterol Sulfate (Albuterol Sulfate 90 Mcg 8 Gm Inhaler) 2 puff INHALE RQ4H PRN PRN Reason: Wheezing Amlodipine Besylate (Amlodipine Besylate 5 Mg Tablet) 5 mg PO DAILY [facility]; Protocol Last Admin: 01/23/24 08:47 Dose: 5 mg Divalproex Sodium (Divalproex Sodium Sprinkdevendra 125 Mg ) 250 mg PO TID [facility] Last Admin: 01/23/24 08:47 Dose: 250 mg Emtricitabine/Tenofovir (Emtricitabin/Tenofovir 200/300 Tablet) 1 tab PO DAILY [facility] Last Admin: 01/23/24 08:55 Dose: 1 tab Haloperidol (Haloperidol 5 Mg Tablet) 5 mg PO BEDTIME [facility] Last Admin: 01/22/24 20:48 Dose: 5 mg Haloperidol Decanoate (Haloperidol Decanoate 50 Mg/Ml Vial) 100 mg IM Q28D [facility] Last Admin: 01/20/24 23:24 Dose: 100 mg Levetiracetam (Levetiracetam 500 Mg Tablet) 500 mg PO BID [facility] Last Admin: 01/23/24 08:47 Dose: 500 mg Magnesium Hydroxide (Milk Of Magnesia 30 Ml Oral.Susp) 30 ml PO DAILY PRN PRN Reason: Constipation Mirtazapine (Mirtazapine 15 Mg Tablet) 15 mg PO BEDTIME [facility] Last Admin: 01/22/24 20:48 Dose: 15 mg Multivitamins/Vitamin C (Multivitamin Tablet) 1 tab PO BEDTIME [facility] Last Admin: 01/22/24 20:48 Dose: 1 tab Nicotine Polacrilex (Nicotine Polacrilex 2 Mg Gum) 4 mg BUCCAL Q2H PRN PRN Reason: Nicotine Cravings Olanzapine (Olanzapine 5 Mg Tablet) 5 mg PO BID@0800,1500 [facility] Last Admin: 01/23/24 08:47 Dose: 5 mg Olanzapine (Olanzapine 10 Mg Vial) 5 mg IM BID@0800,1500 PRN PRN Reason: if refuses 0800/1500 PO zyprexa Last Admin: 10/13/23 14:58 Dose: 5 mg Olanzapine (Olanzapine 10 Mg Tablet) 20 mg PO BEDTIME [facility] Last Admin: 01/22/24 20:47 Dose: 20 mg Polyethylene Glycol (Polyethylene Glycol 3350 17 Gm Powd.Pack) 17 gm PO DAILY PRN PRN Reason: Constipation Rilpivirine (Rilpivirine Hcl 25 Mg Tablet) 25 mg PO DAILY [facility] Last Admin: 01/23/24 08:47 Dose: 25 mg Thiamine HCl (Thiamine Hcl 100 Mg Tablet) 100 mg PO DAILY [facility] Last Admin: 01/23/24 08:47 Dose: 100 mg Trazodone HCl (Trazodone Hcl 50 Mg Tablet) 50 mg PO BEDTIME MRX1 [facility] Last Admin: 01/22/24 22:33 Dose: Not Given Allergies Allergies Allergy/AdvReac Type Severity Reaction Status Date / Time No Known Allergies Allergy Unverified 01/28/20 16:07 [No Known Allergies*] Assessment & Plan Assessment & Plan (1) Schizoaffective disorder, bipolar type: Status: Acute Code(s): F25.0 - Schizoaffective disorder, bipolar type Assessment and Plan: 11/01 mildly up - positive mood=- but less irritable than in past visits 11/02 CTP (2) Dementia: Status: Acute Code(s): F03.90 - Unspecified dementia, unspecified severity, without behavioral disturbance, psychotic disturbance, mood disturbance, and anxiety Assessment and Plan: 11/01 ongoing dementia continue with reorientation and distraction prn - (3) Noncompliance: Status: Acute Code(s): Z91.199 - Patient's noncompliance with other medical treatment and regimen due to unspecified reason Assessment and Plan: seems to be taking medication currently - watches nurse crush them and put in ice cream Plan The patient is an elderly male with a past history of schizoaffective disorder, dementia, HIV and other medical problems, chronically mentally ill resident of assisted living facility referred to this facility after he became non compliant with medications with daniella and psychosis. The patient was assessed by crisis and transferring to this facility for psychiatric stabilization. At the moment of the interview the patient was able to contract for safety. Plan 1. Continue with same treatment. 2. Waiting for placement 3. The patient had been referred to [facility] and guardianship was already filed with more Lopez for placement. 4. Continue tappering off Haldol Reason for continued inpatient stay Substantial Risk for: inability to function, rapid decompensation and med/psych decompensation Time Spent With Patient Time: Total time managing care of this patient today __20__ minutes.
[2024-01-23 20:00] VITALS: BP 108/73; PULSE 95; RESP 16; TEMP 36.2; O2SAT 93
[2024-01-23] MEDS: Multivitamin TABLET 1 TAB PO (20:18)
[2024-01-23] MEDS: Mirtazapine 15 MG TABLET PO (20:18)
[2024-01-23] MEDS: HaloperidoL 5 MG TABLET PO (20:18)
[2024-01-23] MEDS: traZODone HCL 50 MG TABLET PO ×2 (20:18→22:04)
[2024-01-23] MEDS: OLANZapine 10 MG TABLET 20 MG PO (20:19)
--- NOTE | 2024-01-24 08:45 | HO.PSYCHPN ---
Subjective Subjective Date of Service: 01/24/24 Reason For Visit: F32.9 Subjective Notes: Conditional Voluntary Interim History: Pt slept through the night. He is visible for meals. No aggression, no overt psychosis. He is taking medications as prescribed. VS stable. no physical concerns. Review of Systems Review of Systems General: No fevers, malaise, unintentional weight loss HEENT: No blurred vision, diplopia. No sore throat, nasal congestion, rhinorrhea, sinus pain, ear pain Cardiovascular: No chest pain, palpitations, or leg edema Respiratory: No shortness of breath, wheezing, cough GI: No abdominal pain, nausea, vomiting, diarrhea, constipation, melena, hematochezia : No dysuria, hematuria, increased urinary frequency, decreased urinary output MSK: No myalgia, back pain Neuro: No headaches, weakness, paresthesias Skin: No rashes or lesions Yes all other systems are reviewed and are negative and Unobtainable due to mental status Mental Status Exam Mental Status Exam Patient Appearance: Well Grooomed and Appropriate Patient Orientation: Person and Situation Level of Consciousness: Awake and Appropriate Patient Behavior: Guarded and Passive Mood Description: Withdrawn Affect Description: Constricted Patient Cognition Impaired: Yes Ability to Follow Directions: Good Speech Pattern: Clear Diagnostics Vital Signs (24Hr): Vital Signs - 24 hr 01/23/24 20:00 Temperature 97.1 F Pulse Rate 95 Respiratory Rate 16 Blood Pressure 108/73 Pulse Oximetry 93 Oxygen Delivery Method Room Air BMI result Body Mass Index 19.7 Labs 11/19/23 08:03 11/19/23 08:03 Medications Medications Current Medications Acetaminophen (Acetaminophen 325 Mg Tablet) 650 mg PO Q6H PRN PRN Reason: Pain (Scale Score 1-3) Last Admin: 12/19/23 20:10 Dose: 650 mg Al Hydroxide/Mg Hydroxide (Magnesium Hydrox/Alum Hydrox 30 Ml Oral.Susp) 30 ml PO Q6H PRN PRN Reason: Heartburn/Nausea Last Admin: 11/12/23 06:20 Dose: 30 ml Albuterol Sulfate (Albuterol Sulfate 90 Mcg 8 Gm Inhaler) 2 puff INHALE RQ4H PRN PRN Reason: Wheezing Amlodipine Besylate (Amlodipine Besylate 5 Mg Tablet) 5 mg PO DAILY [facility]; Protocol Last Admin: 01/23/24 08:47 Dose: 5 mg Divalproex Sodium (Divalproex Sodium Sprinkles 125 Mg ) 250 mg PO TID [facility] Last Admin: 01/23/24 20:18 Dose: 250 mg Emtricitabine/Tenofovir (Emtricitabin/Tenofovir 200/300 Tablet) 1 tab PO DAILY [facility] Last Admin: 01/23/24 08:55 Dose: 1 tab Haloperidol (Haloperidol 5 Mg Tablet) 5 mg PO BEDTIME [facility] Last Admin: 01/23/24 20:18 Dose: 5 mg Haloperidol Decanoate (Haloperidol Decanoate 50 Mg/Ml Vial) 100 mg IM Q28D [facility] Last Admin: 01/20/24 23:24 Dose: 100 mg Levetiracetam (Levetiracetam 500 Mg Tablet) 500 mg PO BID [facility] Last Admin: 01/23/24 20:18 Dose: 500 mg Magnesium Hydroxide (Milk Of Magnesia 30 Ml Oral.Susp) 30 ml PO DAILY PRN PRN Reason: Constipation Mirtazapine (Mirtazapine 15 Mg Tablet) 15 mg PO BEDTIME [facility] Last Admin: 01/23/24 20:18 Dose: 15 mg Multivitamins/Vitamin C (Multivitamin Tablet) 1 tab PO BEDTIME [facility] Last Admin: 01/23/24 20:18 Dose: 1 tab Nicotine Polacrilex (Nicotine Polacrilex 2 Mg Gum) 4 mg BUCCAL Q2H PRN PRN Reason: Nicotine Cravings Olanzapine (Olanzapine 5 Mg Tablet) 5 mg PO BID@0800,1500 [facility] Last Admin: 01/23/24 15:00 Dose: 5 mg Olanzapine (Olanzapine 10 Mg Vial) 5 mg IM BID@0800,1500 PRN PRN Reason: if refuses 0800/1500 PO zyprexa Last Admin: 10/13/23 14:58 Dose: 5 mg Olanzapine (Olanzapine 10 Mg Tablet) 20 mg PO BEDTIME [facility] Last Admin: 01/23/24 20:19 Dose: 20 mg Polyethylene Glycol (Polyethylene Glycol 3350 17 Gm Powd.Pack) 17 gm PO DAILY PRN PRN Reason: Constipation Rilpivirine (Rilpivirine Hcl 25 Mg Tablet) 25 mg PO DAILY [facility] Last Admin: 01/23/24 08:47 Dose: 25 mg Thiamine HCl (Thiamine Hcl 100 Mg Tablet) 100 mg PO DAILY [facility] Last Admin: 01/23/24 08:47 Dose: 100 mg Trazodone HCl (Trazodone Hcl 50 Mg Tablet) 50 mg PO BEDTIME MRX1 [facility] Last Admin: 01/23/24 22:04 Dose: 50 mg Allergies Allergies Allergy/AdvReac Type Severity Reaction Status Date / Time No Known Allergies Allergy Unverified 01/28/20 16:07 [No Known Allergies*] Assessment & Plan Assessment & Plan (1) Schizoaffective disorder, bipolar type: Status: Acute Code(s): F25.0 - Schizoaffective disorder, bipolar type Assessment and Plan: 11/01 mildly up - positive mood=- but less irritable than in past visits 11/02 CTP (2) Dementia: Status: Acute Code(s): F03.90 - Unspecified dementia, unspecified severity, without behavioral disturbance, psychotic disturbance, mood disturbance, and anxiety Assessment and Plan: 11/01 ongoing dementia continue with reorientation and distraction prn - (3) Noncompliance: Status: Acute Code(s): Z91.199 - Patient's noncompliance with other medical treatment and regimen due to unspecified reason Assessment and Plan: seems to be taking medication currently - watches nurse crush them and put in ice cream Plan The patient is an elderly male with a past history of schizoaffective disorder, dementia, HIV and other medical problems, chronically mentally ill resident of assisted living facility referred to this facility after he became non compliant with medications with daniella and psychosis. The patient was assessed by crisis and transferring to this facility for psychiatric stabilization. At the moment of the interview the patient was able to contract for safety. Plan 1. Continue with same treatment. 2. Waiting for placement 3. The patient had been referred to [facility] and guardianship was already filed with more Lopez for placement. 4. Continue tappering off Haldol Reason for continued inpatient stay Substantial Risk for: inability to function Time Spent With Patient Time: Total time managing care of this patient today ____ minutes.
[2024-01-24 10:10] VITALS: BP 116/76; PULSE 93; RESP 16; TEMP 36.9
[2024-01-24] MEDS: Divalproex Sodium Sprinkles 125 MG CAP.DR.SPR 250 MG PO ×3 (10:11→20:11)
[2024-01-24] MEDS: Thiamine HCL 100 MG TABLET PO (10:11)
[2024-01-24] MEDS: levETIRAcetam 500 MG TABLET PO ×2 (10:11→20:11)
[2024-01-24] MEDS: OLANZapine 5 MG TABLET PO ×2 (10:11→16:19)
[2024-01-24] MEDS: amLODIPine Besylate 5 MG TABLET PO (10:11)
[2024-01-24] MEDS: Emtricitabin/Tenofovir 200/300 TABLET 1 TAB PO (10:11)
[2024-01-24] MEDS: Rilpivirine HCL 25 MG TABLET PO (10:11)
[2024-01-24 20:00] VITALS: BP 98/71; PULSE 81; RESP 16; TEMP 37.3; O2SAT 92
[2024-01-24] MEDS: OLANZapine 10 MG TABLET 20 MG PO (20:11)
[2024-01-24] MEDS: traZODone HCL 50 MG TABLET PO ×2 (20:11→23:42)
[2024-01-24] MEDS: Mirtazapine 15 MG TABLET PO (20:11)
[2024-01-24] MEDS: HaloperidoL 5 MG TABLET PO (20:11)
[2024-01-24] MEDS: Multivitamin TABLET 1 TAB PO (20:11)
[2024-01-25 08:00] VITALS: BP 116/84; PULSE 100; RESP 18; TEMP 36.6; O2SAT 96
[2024-01-25] MEDS: amLODIPine Besylate 5 MG TABLET PO (08:06)
[2024-01-25] MEDS: Rilpivirine HCL 25 MG TABLET PO (08:06)
[2024-01-25] MEDS: Divalproex Sodium Sprinkles 125 MG CAP.DR.SPR 250 MG PO ×3 (08:06→19:47)
[2024-01-25] MEDS: OLANZapine 5 MG TABLET PO ×2 (08:06→14:51)
[2024-01-25] MEDS: Thiamine HCL 100 MG TABLET PO (08:06)
[2024-01-25] MEDS: Emtricitabin/Tenofovir 200/300 TABLET 1 TAB PO (08:06)
[2024-01-25] MEDS: levETIRAcetam 500 MG TABLET PO ×2 (08:06→19:48)
--- NOTE | 2024-01-25 09:26 | P.PNPSI_ITS ---
Subjective Subjective Date of Service: 01/25/24 Reason For Visit: F32.9 Interim History: Pt slept through the night. He is visible for meals. No aggression, no overt psychosis. He is taking medications as prescribed. VS stable. no physical concerns. Review of Systems Review of Systems General: No fevers, malaise, unintentional weight loss HEENT: No blurred vision, diplopia. No sore throat, nasal congestion, rhinorrhea, sinus pain, ear pain Cardiovascular: No chest pain, palpitations, or leg edema Respiratory: No shortness of breath, wheezing, cough GI: No abdominal pain, nausea, vomiting, diarrhea, constipation, melena, hematochezia : No dysuria, hematuria, increased urinary frequency, decreased urinary output MSK: No myalgia, back pain Neuro: No headaches, weakness, paresthesias Skin: No rashes or lesions Yes all other systems are reviewed and are negative and Unobtainable due to mental status Mental Status Exam Mental Status Exam Patient Appearance: Well Grooomed and Appropriate Patient Orientation: Person and Situation Level of Consciousness: Awake and Appropriate Patient Behavior: Guarded and Passive Mood Description: Withdrawn Affect Description: Constricted Patient Cognition Impaired: Yes Ability to Follow Directions: Good Speech Pattern: Clear Diagnostics Vital Signs (24Hr): Vital Signs - 24 hr 01/24/24 10:10 01/24/24 20:00 Temperature 98.5 F 99.1 F Pulse Rate 93 81 Respiratory Rate 16 16 Blood Pressure 116/76 98/71 Pulse Oximetry 92 Oxygen Delivery Method Room Air Room Air BMI result Body Mass Index 19.7 Labs 11/19/23 08:03 11/19/23 08:03 Medications Medications Current Medications Acetaminophen (Acetaminophen 325 Mg Tablet) 650 mg PO Q6H PRN PRN Reason: Pain (Scale Score 1-3) Last Admin: 12/19/23 20:10 Dose: 650 mg Al Hydroxide/Mg Hydroxide (Magnesium Hydrox/Alum Hydrox 30 Ml Oral.Susp) 30 ml PO Q6H PRN PRN Reason: Heartburn/Nausea Last Admin: 11/12/23 06:20 Dose: 30 ml Albuterol Sulfate (Albuterol Sulfate 90 Mcg 8 Gm Inhaler) 2 puff INHALE RQ4H PRN PRN Reason: Wheezing Amlodipine Besylate (Amlodipine Besylate 5 Mg Tablet) 5 mg PO DAILY [facility]; Protocol Last Admin: 01/25/24 08:06 Dose: 5 mg Divalproex Sodium (Divalproex Sodium Sprinkles 125 Mg ) 250 mg PO TID [facility] Last Admin: 01/25/24 08:06 Dose: 250 mg Emtricitabine/Tenofovir (Emtricitabin/Tenofovir 200/300 Tablet) 1 tab PO DAILY [facility] Last Admin: 01/25/24 08:06 Dose: 1 tab Haloperidol (Haloperidol 5 Mg Tablet) 5 mg PO BEDTIME [facility] Last Admin: 01/24/24 20:11 Dose: 5 mg Haloperidol Decanoate (Haloperidol Decanoate 50 Mg/Ml Vial) 100 mg IM Q28D [facility] Last Admin: 01/20/24 23:24 Dose: 100 mg Levetiracetam (Levetiracetam 500 Mg Tablet) 500 mg PO BID [facility] Last Admin: 01/25/24 08:06 Dose: 500 mg Magnesium Hydroxide (Milk Of Magnesia 30 Ml Oral.Susp) 30 ml PO DAILY PRN PRN Reason: Constipation Mirtazapine (Mirtazapine 15 Mg Tablet) 15 mg PO BEDTIME [facility] Last Admin: 01/24/24 20:11 Dose: 15 mg Multivitamins/Vitamin C (Multivitamin Tablet) 1 tab PO BEDTIME [facility] Last Admin: 01/24/24 20:11 Dose: 1 tab Nicotine Polacrilex (Nicotine Polacrilex 2 Mg Gum) 4 mg BUCCAL Q2H PRN PRN Reason: Nicotine Cravings Olanzapine (Olanzapine 5 Mg Tablet) 5 mg PO BID@0800,1500 [facility] Last Admin: 01/25/24 08:06 Dose: 5 mg Olanzapine (Olanzapine 10 Mg Vial) 5 mg IM BID@0800,1500 PRN PRN Reason: if refuses 0800/1500 PO zyprexa Last Admin: 10/13/23 14:58 Dose: 5 mg Olanzapine (Olanzapine 10 Mg Tablet) 20 mg PO BEDTIME [facility] Last Admin: 01/24/24 20:11 Dose: 20 mg Polyethylene Glycol (Polyethylene Glycol 3350 17 Gm Powd.Pack) 17 gm PO DAILY PRN PRN Reason: Constipation Rilpivirine (Rilpivirine Hcl 25 Mg Tablet) 25 mg PO DAILY [facility] Last Admin: 01/25/24 08:06 Dose: 25 mg Thiamine HCl (Thiamine Hcl 100 Mg Tablet) 100 mg PO DAILY [facility] Last Admin: 01/25/24 08:06 Dose: 100 mg Trazodone HCl (Trazodone Hcl 50 Mg Tablet) 50 mg PO BEDTIME MRX1 [facility] Last Admin: 01/24/24 23:42 Dose: 50 mg Allergies Allergies Allergy/AdvReac Type Severity Reaction Status Date / Time No Known Allergies Allergy Unverified 01/28/20 16:07 [No Known Allergies*] Assessment & Plan Assessment & Plan (1) Schizoaffective disorder, bipolar type: Status: Acute Code(s): F25.0 - Schizoaffective disorder, bipolar type Assessment and Plan: 11/01 mildly up - positive mood=- but less irritable than in past visits 11/02 CTP (2) Dementia: Status: Acute Code(s): F03.90 - Unspecified dementia, unspecified severity, without behavioral disturbance, psychotic disturbance, mood disturbance, and anxiety Assessment and Plan: 11/01 ongoing dementia continue with reorientation and distraction prn - (3) Noncompliance: Status: Acute Code(s): Z91.199 - Patient's noncompliance with other medical treatment and regimen due to unspecified reason Assessment and Plan: seems to be taking medication currently - watches nurse crush them and put in ice cream Plan The patient is an elderly male with a past history of schizoaffective disorder, dementia, HIV and other medical problems, chronically mentally ill resident of assisted living facility referred to this facility after he became non compliant with medications with daniella and psychosis. The patient was assessed by crisis and transferring to this facility for psychiatric stabilization. At the moment of the interview the patient was able to contract for safety. Plan 1. Continue with same treatment. 2. Waiting for placement 3. The patient had been referred to [facility] and guardianship was already filed with more Lopez for placement. 4. Continue tappering off Haldol Reason for continued inpatient stay Substantial Risk for: inability to function Time Spent With Patient Time: Total time managing care of this patient today ____ minutes.
[2024-01-25] MEDS: Multivitamin TABLET 1 TAB PO (19:47)
[2024-01-25] MEDS: HaloperidoL 5 MG TABLET PO (19:48)
[2024-01-25] MEDS: OLANZapine 10 MG TABLET 20 MG PO (19:48)
[2024-01-25] MEDS: traZODone HCL 50 MG TABLET PO ×2 (19:48→23:12)
[2024-01-25] MEDS: Mirtazapine 15 MG TABLET PO (19:48)
[2024-01-25 20:00] VITALS: BP 109/70; PULSE 107; RESP 16; TEMP 36.8; O2SAT 90
[2024-01-26 08:00] VITALS: BP 134/90; PULSE 100; RESP 18; TEMP 36.4; O2SAT 97
[2024-01-26] MEDS: amLODIPine Besylate 5 MG TABLET PO (08:30)
[2024-01-26] MEDS: Divalproex Sodium Sprinkles 125 MG CAP.DR.SPR 250 MG PO ×3 (08:31→20:52)
[2024-01-26] MEDS: levETIRAcetam 500 MG TABLET PO ×2 (08:31→20:53)
[2024-01-26] MEDS: Thiamine HCL 100 MG TABLET PO (08:31)
[2024-01-26] MEDS: OLANZapine 5 MG TABLET PO ×2 (08:31→15:17)
[2024-01-26] MEDS: Emtricitabin/Tenofovir 200/300 TABLET 1 TAB PO (08:31)
[2024-01-26] MEDS: Rilpivirine HCL 25 MG TABLET PO (08:31)
--- NOTE | 2024-01-26 11:23 | HO.PSYCHPN ---
Subjective Subjective Date of Service: 01/26/24 Reason For Visit: F32.9 Subjective Notes: Conditional Voluntary Interim History: Pt slept through the night. He is visible for meals. No aggression, no overt psychosis. He is taking medications as prescribed. VS stable. no physical concerns. Review of Systems Review of Systems General: No fevers, malaise, unintentional weight loss HEENT: No blurred vision, diplopia. No sore throat, nasal congestion, rhinorrhea, sinus pain, ear pain Cardiovascular: No chest pain, palpitations, or leg edema Respiratory: No shortness of breath, wheezing, cough GI: No abdominal pain, nausea, vomiting, diarrhea, constipation, melena, hematochezia : No dysuria, hematuria, increased urinary frequency, decreased urinary output MSK: No myalgia, back pain Neuro: No headaches, weakness, paresthesias Skin: No rashes or lesions Yes all other systems are reviewed and are negative and Unobtainable due to mental status Mental Status Exam Mental Status Exam Narrative: pt more talkative, denies complaints; slightly brighter Self-care is poor. In bed. Patient Appearance: Well Grooomed and Appropriate Patient Orientation: Person and Situation Level of Consciousness: Awake and Appropriate Patient Behavior: Guarded and Passive Mood Description: Withdrawn Affect Description: Constricted Patient Cognition Impaired: Yes Ability to Follow Directions: Good Speech Pattern: Clear Diagnostics Vital Signs (24Hr): Vital Signs - 24 hr 01/25/24 20:00 01/26/24 08:00 Temperature 98.2 F 97.6 F Pulse Rate 107 H 100 Respiratory Rate 16 18 Blood Pressure 109/70 134/90 H Pulse Oximetry 90 L 97 Oxygen Delivery Method Room Air Room Air BMI result Body Mass Index 19.7 Labs 11/19/23 08:03 11/19/23 08:03 Medications Medications Current Medications Acetaminophen (Acetaminophen 325 Mg Tablet) 650 mg PO Q6H PRN PRN Reason: Pain (Scale Score 1-3) Last Admin: 12/19/23 20:10 Dose: 650 mg Al Hydroxide/Mg Hydroxide (Magnesium Hydrox/Alum Hydrox 30 Ml Oral.Susp) 30 ml PO Q6H PRN PRN Reason: Heartburn/Nausea Last Admin: 11/12/23 06:20 Dose: 30 ml Albuterol Sulfate (Albuterol Sulfate 90 Mcg 8 Gm Inhaler) 2 puff INHALE RQ4H PRN PRN Reason: Wheezing Amlodipine Besylate (Amlodipine Besylate 5 Mg Tablet) 5 mg PO DAILY [facility]; Protocol Last Admin: 01/26/24 08:30 Dose: 5 mg Divalproex Sodium (Divalproex Sodium Sprinkles 125 Mg ) 250 mg PO TID [facility] Last Admin: 01/26/24 08:31 Dose: 250 mg Emtricitabine/Tenofovir (Emtricitabin/Tenofovir 200/300 Tablet) 1 tab PO DAILY [facility] Last Admin: 01/26/24 08:31 Dose: 1 tab Haloperidol (Haloperidol 5 Mg Tablet) 5 mg PO BEDTIME [facility] Last Admin: 01/25/24 19:48 Dose: 5 mg Haloperidol Decanoate (Haloperidol Decanoate 50 Mg/Ml Vial) 100 mg IM Q28D [facility] Last Admin: 01/20/24 23:24 Dose: 100 mg Levetiracetam (Levetiracetam 500 Mg Tablet) 500 mg PO BID [facility] Last Admin: 01/26/24 08:31 Dose: 500 mg Magnesium Hydroxide (Milk Of Magnesia 30 Ml Oral.Susp) 30 ml PO DAILY PRN PRN Reason: Constipation Mirtazapine (Mirtazapine 15 Mg Tablet) 15 mg PO BEDTIME [facility] Last Admin: 01/25/24 19:48 Dose: 15 mg Multivitamins/Vitamin C (Multivitamin Tablet) 1 tab PO BEDTIME [facility] Last Admin: 01/25/24 19:47 Dose: 1 tab Nicotine Polacrilex (Nicotine Polacrilex 2 Mg Gum) 4 mg BUCCAL Q2H PRN PRN Reason: Nicotine Cravings Olanzapine (Olanzapine 5 Mg Tablet) 5 mg PO BID@0800,1500 [facility] Last Admin: 01/26/24 08:31 Dose: 5 mg Olanzapine (Olanzapine 10 Mg Vial) 5 mg IM BID@0800,1500 PRN PRN Reason: if refuses 0800/1500 PO zyprexa Last Admin: 10/13/23 14:58 Dose: 5 mg Olanzapine (Olanzapine 10 Mg Tablet) 20 mg PO BEDTIME [facility] Last Admin: 01/25/24 19:48 Dose: 20 mg Polyethylene Glycol (Polyethylene Glycol 3350 17 Gm Powd.Pack) 17 gm PO DAILY PRN PRN Reason: Constipation Rilpivirine (Rilpivirine Hcl 25 Mg Tablet) 25 mg PO DAILY [facility] Last Admin: 01/26/24 08:31 Dose: 25 mg Thiamine HCl (Thiamine Hcl 100 Mg Tablet) 100 mg PO DAILY [facility] Last Admin: 01/26/24 08:31 Dose: 100 mg Trazodone HCl (Trazodone Hcl 50 Mg Tablet) 50 mg PO BEDTIME MRX1 [facility] Last Admin: 01/25/24 23:12 Dose: 50 mg Allergies Allergies Allergy/AdvReac Type Severity Reaction Status Date / Time No Known Allergies Allergy Unverified 01/28/20 16:07 [No Known Allergies*] Assessment & Plan Assessment & Plan (1) Schizoaffective disorder, bipolar type: Status: Acute Code(s): F25.0 - Schizoaffective disorder, bipolar type Assessment and Plan: 11/01 mildly up - positive mood=- but less irritable than in past visits 11/02 CTP (2) Dementia: Status: Acute Code(s): F03.90 - Unspecified dementia, unspecified severity, without behavioral disturbance, psychotic disturbance, mood disturbance, and anxiety Assessment and Plan: 11/01 ongoing dementia continue with reorientation and distraction prn - (3) Noncompliance: Status: Acute Code(s): Z91.199 - Patient's noncompliance with other medical treatment and regimen due to unspecified reason Assessment and Plan: seems to be taking medication currently - watches nurse crush them and put in ice cream Plan The patient is an elderly male with a past history of schizoaffective disorder, dementia, HIV and other medical problems, chronically mentally ill resident of assisted living facility referred to this facility after he became non compliant with medications with daniella and psychosis. The patient was assessed by crisis and transferring to this facility for psychiatric stabilization. At the moment of the interview the patient was able to contract for safety. Plan 1. Continue with same treatment. 2. Waiting for placement 3. The patient had been referred to [facility] and guardianship was already filed with more Lopez for placement. 4. Continue tappering off Haldol Reason for continued inpatient stay Substantial Risk for: inability to function Time Spent With Patient Time: Total time managing care of this patient today ____ minutes.
[2024-01-26 20:00] VITALS: BP 122/68; PULSE 98; RESP 16; TEMP 36.7; O2SAT 96
[2024-01-26] MEDS: traZODone HCL 50 MG TABLET PO ×2 (20:52→20:53)
[2024-01-26] MEDS: OLANZapine 10 MG TABLET 20 MG PO (20:53)
[2024-01-26] MEDS: Multivitamin TABLET 1 TAB PO (20:53)
[2024-01-26] MEDS: Mirtazapine 15 MG TABLET PO (20:54)
[2024-01-26] MEDS: HaloperidoL 5 MG TABLET PO (20:54)
[2024-01-27 07:55] VITALS: BP 135/87; PULSE 100; RESP 18; TEMP 36.6; O2SAT 99
[2024-01-27] MEDS: amLODIPine Besylate 5 MG TABLET PO (08:13)
[2024-01-27] MEDS: Divalproex Sodium Sprinkles 125 MG CAP.DR.SPR 250 MG PO ×3 (08:13→20:15)
[2024-01-27] MEDS: levETIRAcetam 500 MG TABLET PO ×2 (08:14→20:14)
[2024-01-27] MEDS: OLANZapine 5 MG TABLET PO ×2 (08:14→15:17)
[2024-01-27] MEDS: Thiamine HCL 100 MG TABLET PO (08:14)
[2024-01-27] MEDS: Rilpivirine HCL 25 MG TABLET PO (08:14)
[2024-01-27] MEDS: Emtricitabin/Tenofovir 200/300 TABLET 1 TAB PO (08:14)
--- NOTE | 2024-01-27 11:40 | P.PNPSI_ITS ---
Subjective Subjective Date of Service: 01/27/24 Reason For Visit: F32.9 Subjective Notes: Conditional Voluntary Interim History: The nursing staff reported no changes in his mental status, fully compliant with treatment. On interview the patient denies new symptoms. Waiting for placement. Mental Status Exam Mental Status Exam Patient Appearance: Appropriate Patient Orientation: Person and Situation Level of Consciousness: Awake and Appropriate Patient Behavior: Guarded and Passive Mood Description: Withdrawn Affect Description: Constricted Patient Cognition Impaired: Yes Ability to Follow Directions: Good Speech Pattern: Clear Hallucinations: None Delusions: Not Present Thought Process: Distracted and Slowed Thinking Thought Content: positive for [place] and positive for Poverty of Content Judgement: Fair Diagnostics Vital Signs (24Hr): Vital Signs - 24 hr 01/26/24 20:00 01/27/24 07:55 Temperature 98.1 F 97.9 F Pulse Rate 98 100 Respiratory Rate 16 18 Blood Pressure 122/68 135/87 Pulse Oximetry 96 99 Oxygen Delivery Method Room Air Room Air BMI result Body Mass Index 19.7 Labs 11/19/23 08:03 11/19/23 08:03 Medications Medications Current Medications Acetaminophen (Acetaminophen 325 Mg Tablet) 650 mg PO Q6H PRN PRN Reason: Pain (Scale Score 1-3) Last Admin: 12/19/23 20:10 Dose: 650 mg Al Hydroxide/Mg Hydroxide (Magnesium Hydrox/Alum Hydrox 30 Ml Oral.Susp) 30 ml PO Q6H PRN PRN Reason: Heartburn/Nausea Last Admin: 11/12/23 06:20 Dose: 30 ml Albuterol Sulfate (Albuterol Sulfate 90 Mcg 8 Gm Inhaler) 2 puff INHALE RQ4H PRN PRN Reason: Wheezing Amlodipine Besylate (Amlodipine Besylate 5 Mg Tablet) 5 mg PO DAILY [facility]; Protocol Last Admin: 01/27/24 08:13 Dose: 5 mg Divalproex Sodium (Divalproex Sodium Sprinkles 125 Mg ) 250 mg PO TID [facility] Last Admin: 01/27/24 08:13 Dose: 250 mg Emtricitabine/Tenofovir (Emtricitabin/Tenofovir 200/300 Tablet) 1 tab PO DAILY [facility] Last Admin: 01/27/24 08:14 Dose: 1 tab Haloperidol (Haloperidol 5 Mg Tablet) 5 mg PO BEDTIME [facility] Last Admin: 01/26/24 20:54 Dose: 5 mg Haloperidol Decanoate (Haloperidol Decanoate 50 Mg/Ml Vial) 100 mg IM Q28D [facility] Last Admin: 01/20/24 23:24 Dose: 100 mg Levetiracetam (Levetiracetam 500 Mg Tablet) 500 mg PO BID [facility] Last Admin: 01/27/24 08:14 Dose: 500 mg Magnesium Hydroxide (Milk Of Magnesia 30 Ml Oral.Susp) 30 ml PO DAILY PRN PRN Reason: Constipation Mirtazapine (Mirtazapine 15 Mg Tablet) 15 mg PO BEDTIME [facility] Last Admin: 01/26/24 20:54 Dose: 15 mg Multivitamins/Vitamin C (Multivitamin Tablet) 1 tab PO BEDTIME [facility] Last Admin: 01/26/24 20:53 Dose: 1 tab Nicotine Polacrilex (Nicotine Polacrilex 2 Mg Gum) 4 mg BUCCAL Q2H PRN PRN Reason: Nicotine Cravings Olanzapine (Olanzapine 5 Mg Tablet) 5 mg PO BID@0800,1500 [facility] Last Admin: 01/27/24 08:14 Dose: 5 mg Olanzapine (Olanzapine 10 Mg Vial) 5 mg IM BID@0800,1500 PRN PRN Reason: if refuses 0800/1500 PO zyprexa Last Admin: 10/13/23 14:58 Dose: 5 mg Olanzapine (Olanzapine 10 Mg Tablet) 20 mg PO BEDTIME [facility] Last Admin: 01/26/24 20:53 Dose: 20 mg Polyethylene Glycol (Polyethylene Glycol 3350 17 Gm Powd.Pack) 17 gm PO DAILY PRN PRN Reason: Constipation Rilpivirine (Rilpivirine Hcl 25 Mg Tablet) 25 mg PO DAILY [facility] Last Admin: 01/27/24 08:14 Dose: 25 mg Thiamine HCl (Thiamine Hcl 100 Mg Tablet) 100 mg PO DAILY [facility] Last Admin: 01/27/24 08:14 Dose: 100 mg Trazodone HCl (Trazodone Hcl 50 Mg Tablet) 50 mg PO BEDTIME MRX1 [facility] Last Admin: 01/26/24 20:53 Dose: 50 mg Allergies Allergies Allergy/AdvReac Type Severity Reaction Status Date / Time No Known Allergies Allergy Unverified 01/28/20 16:07 [No Known Allergies*] Assessment & Plan Assessment & Plan (1) Schizoaffective disorder, bipolar type: Status: Acute Code(s): F25.0 - Schizoaffective disorder, bipolar type Assessment and Plan: 11/01 mildly up - positive mood=- but less irritable than in past visits 11/02 CTP (2) Dementia: Status: Acute Code(s): F03.90 - Unspecified dementia, unspecified severity, without behavioral disturbance, psychotic disturbance, mood disturbance, and anxiety Assessment and Plan: 11/01 ongoing dementia continue with reorientation and distraction prn - (3) Noncompliance: Status: Acute Code(s): Z91.199 - Patient's noncompliance with other medical treatment and regimen due to unspecified reason Assessment and Plan: seems to be taking medication currently - watches nurse crush them and put in ice cream Plan The patient is an elderly male with a past history of schizoaffective disorder, dementia, HIV and other medical problems, chronically mentally ill resident of assisted living facility referred to this facility after he became non compliant with medications with daniella and psychosis. The patient was assessed by crisis and transferring to this facility for psychiatric stabilization. At the moment of the interview the patient was able to contract for safety. Plan 1. Continue with same treatment. 2. Waiting for placement 3. The patient had been referred to [facility] and guardianship was already filed with more Lopez for placement. 4. Continue tappering off Haldol Reason for continued inpatient stay Substantial Risk for: inability to function, rapid decompensation and med/psych decompensation Time Spent With Patient Time: Total time managing care of this patient today __20__ minutes.
[2024-01-27 20:13] VITALS: BP 103/63; PULSE 108; RESP 14; TEMP 36.8; O2SAT 95
[2024-01-27] MEDS: Mirtazapine 15 MG TABLET PO (20:14)
[2024-01-27] MEDS: OLANZapine 10 MG TABLET 20 MG PO (20:14)
[2024-01-27] MEDS: Multivitamin TABLET 1 TAB PO (20:14)
[2024-01-27] MEDS: HaloperidoL 5 MG TABLET PO (20:15)
[2024-01-27] MEDS: traZODone HCL 50 MG TABLET PO (20:15)
[2024-01-28 07:52] VITALS: BP 127/80; PULSE 117; RESP 16; TEMP 36.5; O2SAT 95
[2024-01-28] MEDS: amLODIPine Besylate 5 MG TABLET PO (07:55)
[2024-01-28] MEDS: Emtricitabin/Tenofovir 200/300 TABLET 1 TAB PO (07:56)
[2024-01-28] MEDS: levETIRAcetam 500 MG TABLET PO ×2 (07:56→20:07)
[2024-01-28] MEDS: OLANZapine 5 MG TABLET PO ×2 (07:56→15:20)
[2024-01-28] MEDS: Rilpivirine HCL 25 MG TABLET PO (07:56)
[2024-01-28] MEDS: Thiamine HCL 100 MG TABLET PO (07:56)
[2024-01-28] MEDS: Divalproex Sodium Sprinkles 125 MG CAP.DR.SPR 250 MG PO ×3 (07:56→20:07)
--- NOTE | 2024-01-28 12:09 | P.PNPSI_ITS ---
Subjective Subjective Date of Service: 01/28/24 Reason For Visit: F32.9 Subjective Notes: Conditional Voluntary Interim History: The nursing staff reported the patient had been pleasant cooperative, compliant with medications no changes in his mental status. On interview the patient denies new symptoms, waiting for placement. Mental Status Exam Mental Status Exam Patient Appearance: Appropriate Patient Orientation: Person and Situation Level of Consciousness: Awake and Appropriate Patient Behavior: Guarded and Passive Mood Description: Withdrawn Affect Description: Constricted Patient Cognition Impaired: Yes Ability to Follow Directions: Good Speech Pattern: Clear Hallucinations: None Delusions: Not Present Thought Process: Distracted and Slowed Thinking Thought Content: positive for [place] and positive for Poverty of Content Judgement: Poor Diagnostics Vital Signs (24Hr): Vital Signs - 24 hr 01/27/24 20:13 01/28/24 07:52 Temperature 98.3 F 97.7 F Pulse Rate 108 H 117 H Respiratory Rate 14 16 Blood Pressure 103/63 127/80 Pulse Oximetry 95 95 Oxygen Delivery Method Room Air Room Air BMI result Body Mass Index 19.7 Labs 11/19/23 08:03 11/19/23 08:03 Medications Medications Current Medications Acetaminophen (Acetaminophen 325 Mg Tablet) 650 mg PO Q6H PRN PRN Reason: Pain (Scale Score 1-3) Last Admin: 12/19/23 20:10 Dose: 650 mg Al Hydroxide/Mg Hydroxide (Magnesium Hydrox/Alum Hydrox 30 Ml Oral.Susp) 30 ml PO Q6H PRN PRN Reason: Heartburn/Nausea Last Admin: 11/12/23 06:20 Dose: 30 ml Albuterol Sulfate (Albuterol Sulfate 90 Mcg 8 Gm Inhaler) 2 puff INHALE RQ4H PRN PRN Reason: Wheezing Amlodipine Besylate (Amlodipine Besylate 5 Mg Tablet) 5 mg PO DAILY [facility]; Protocol Last Admin: 01/28/24 07:55 Dose: 5 mg Divalproex Sodium (Divalproex Sodium Sprinkles 125 Mg ) 250 mg PO TID [facility] Last Admin: 01/28/24 07:56 Dose: 250 mg Emtricitabine/Tenofovir (Emtricitabin/Tenofovir 200/300 Tablet) 1 tab PO DAILY [facility] Last Admin: 01/28/24 07:56 Dose: 1 tab Haloperidol (Haloperidol 5 Mg Tablet) 5 mg PO BEDTIME [facility] Last Admin: 09/16/24 20:15 Dose: 5 mg Haloperidol Decanoate (Haloperidol Decanoate 50 Mg/Ml Vial) 100 mg IM Q28D [facility] Last Admin: 01/20/24 23:24 Dose: 100 mg Levetiracetam (Levetiracetam 500 Mg Tablet) 500 mg PO BID [facility] Last Admin: 01/28/24 07:56 Dose: 500 mg Magnesium Hydroxide (Milk Of Magnesia 30 Ml Oral.Susp) 30 ml PO DAILY PRN PRN Reason: Constipation Mirtazapine (Mirtazapine 15 Mg Tablet) 15 mg PO BEDTIME [facility] Last Admin: 01/27/24 20:14 Dose: 15 mg Multivitamins/Vitamin C (Multivitamin Tablet) 1 tab PO BEDTIME [facility] Last Admin: 01/27/24 20:14 Dose: 1 tab Nicotine Polacrilex (Nicotine Polacrilex 2 Mg Gum) 4 mg BUCCAL Q2H PRN PRN Reason: Nicotine Cravings Olanzapine (Olanzapine 5 Mg Tablet) 5 mg PO BID@0800,1500 [facility] Last Admin: 01/28/24 07:56 Dose: 5 mg Olanzapine (Olanzapine 10 Mg Vial) 5 mg IM BID@0800,1500 PRN PRN Reason: if refuses 0800/1500 PO zyprexa Last Admin: 10/13/23 14:58 Dose: 5 mg Olanzapine (Olanzapine 10 Mg Tablet) 20 mg PO BEDTIME [facility] Last Admin: 01/27/24 20:14 Dose: 20 mg Polyethylene Glycol (Polyethylene Glycol 3350 17 Gm Powd.Pack) 17 gm PO DAILY PRN PRN Reason: Constipation Rilpivirine (Rilpivirine Hcl 25 Mg Tablet) 25 mg PO DAILY [facility] Last Admin: 01/28/24 07:56 Dose: 25 mg Thiamine HCl (Thiamine Hcl 100 Mg Tablet) 100 mg PO DAILY [facility] Last Admin: 01/28/24 07:56 Dose: 100 mg Trazodone HCl (Trazodone Hcl 50 Mg Tablet) 50 mg PO BEDTIME MRX1 [facility] Last Admin: 01/27/24 21:29 Dose: Not Given Allergies Allergies Allergy/AdvReac Type Severity Reaction Status Date / Time No Known Allergies Allergy Unverified 01/28/20 16:07 [No Known Allergies*] Assessment & Plan Assessment & Plan (1) Schizoaffective disorder, bipolar type: Status: Acute Code(s): F25.0 - Schizoaffective disorder, bipolar type Assessment and Plan: 11/01 mildly up - positive mood=- but less irritable than in past visits 11/02 CTP (2) Dementia: Status: Acute Code(s): F03.90 - Unspecified dementia, unspecified severity, without behavioral disturbance, psychotic disturbance, mood disturbance, and anxiety Assessment and Plan: 11/01 ongoing dementia continue with reorientation and distraction prn - (3) Noncompliance: Status: Acute Code(s): Z91.199 - Patient's noncompliance with other medical treatment and regimen due to unspecified reason Assessment and Plan: seems to be taking medication currently - watches nurse crush them and put in ice cream Plan The patient is an elderly male with a past history of schizoaffective disorder, dementia, HIV and other medical problems, chronically mentally ill resident of assisted living facility referred to this facility after he became non compliant with medications with daniella and psychosis. The patient was assessed by crisis and transferring to this facility for psychiatric stabilization. At the moment of the interview the patient was able to contract for safety. Plan 1. Continue with same treatment. 2. Waiting for placement 3. The patient had been referred to [facility] and guardianship was already filed with more Lopez for placement. 4. Continue tappering off Haldol Reason for continued inpatient stay Substantial Risk for: inability to function, rapid decompensation and med/psych decompensation Time Spent With Patient Time: Total time managing care of this patient today __20__ minutes.
--- NOTE | 2024-01-28 13:08 | PC.NURSE ---
Pt c/o stomach ache, decreased appetite, congested nose, and he was completely incontinent of urine. This RN reported the previous listed information to Dr. Hua via [employer]. Message read, answer pending.
[2024-01-28 20:00] VITALS: BP 117/72; PULSE 115; RESP 16; TEMP 37.1; O2SAT 94
[2024-01-28] MEDS: HaloperidoL 5 MG TABLET PO (20:07)
[2024-01-28] MEDS: traZODone HCL 50 MG TABLET PO (20:07)
[2024-01-28] MEDS: OLANZapine 10 MG TABLET 20 MG PO (20:07)
[2024-01-28] MEDS: Multivitamin TABLET 1 TAB PO (20:07)
[2024-01-28] MEDS: Mirtazapine 15 MG TABLET PO (20:07)
[2024-01-29 08:00] VITALS: BP 113/79; PULSE 109; RESP 18; TEMP 36.8; O2SAT 94
[2024-01-29] MEDS: Emtricitabin/Tenofovir 200/300 TABLET 1 TAB PO (09:53)
[2024-01-29] MEDS: Rilpivirine HCL 25 MG TABLET PO (09:53)
[2024-01-29] MEDS: Thiamine HCL 100 MG TABLET PO (09:53)
[2024-01-29] MEDS: OLANZapine 5 MG TABLET PO ×2 (09:53→15:05)
[2024-01-29] MEDS: Divalproex Sodium Sprinkles 125 MG CAP.DR.SPR 250 MG PO ×3 (09:53→20:21)
[2024-01-29] MEDS: levETIRAcetam 500 MG TABLET PO ×2 (09:54→20:21)
[2024-01-29] MEDS: amLODIPine Besylate 5 MG TABLET PO (09:58)
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
--- NOTE | 2024-01-29 13:46 | MHC.CLN ---
F/U DIET=REGULAR. ENSURE TID TO INCREASE KCALS/NUTRITION (1050 KCALS, 60 G PROTEIN). CONTINUES WITH USUALLY GOOD INTAKE, 100% MOST MEALS. ACCEPTS ENSURE. BMI=19.7 BUT IS 82% IBW. UNDERWEIGHT APPEARS TO BE BASELINE. FOLLOW FOR INTAKE OF MEALS AND SUPPLEMENT. RD TO FOLLOW UP EVERY OTHER WEEK.
[2024-01-29 20:00] VITALS: BP 118/84; PULSE 114; RESP 18; TEMP 36.4; O2SAT 94
[2024-01-29] MEDS: Mirtazapine 15 MG TABLET PO (20:20)
[2024-01-29] MEDS: OLANZapine 10 MG TABLET 20 MG PO (20:21)
[2024-01-29] MEDS: HaloperidoL 5 MG TABLET PO (20:21)
[2024-01-29] MEDS: Multivitamin TABLET 1 TAB PO (20:21)
[2024-01-29] MEDS: traZODone HCL 50 MG TABLET PO (20:21)
[2024-01-30 08:00] VITALS: BP 110/75; PULSE 101; RESP 18; TEMP 36.6; O2SAT 90
--- NOTE | 2024-01-30 08:58 | P.PNPSI_ITS ---
Subjective Subjective Date of Service: 01/30/24 Reason For Visit: F32.9 Subjective Notes: Conditional Voluntary Interim History: The nursing staff reported the patient had been compliant with treatment, no changes in mental status. On interview the patient denies new symptoms, waiting for placement. The social media campaign manager reported that his [facility] application is in process. Mental Status Exam Mental Status Exam Patient Appearance: Well Grooomed and Appropriate Patient Orientation: Person and Situation Level of Consciousness: Awake and Appropriate Patient Behavior: Guarded and Passive Mood Description: Withdrawn Affect Description: Constricted Patient Cognition Impaired: Yes Ability to Follow Directions: Good Speech Pattern: Clear Hallucinations: None Delusions: Not Present Thought Process: Distracted and Slowed Thinking Thought Content: positive for [place] and positive for Poverty of Content Judgement: Fair Diagnostics Vital Signs (24Hr): Vital Signs - 24 hr 01/29/24 20:00 Temperature 97.5 F Pulse Rate 114 H Respiratory Rate 18 Blood Pressure 118/84 Pulse Oximetry 94 Oxygen Delivery Method Room Air BMI result Body Mass Index 19.7 Labs 11/19/23 08:03 11/19/23 08:03 Medications Medications Current Medications Acetaminophen (Acetaminophen 325 Mg Tablet) 650 mg PO Q6H PRN PRN Reason: Pain (Scale Score 1-3) Last Admin: 12/19/23 20:10 Dose: 650 mg Al Hydroxide/Mg Hydroxide (Magnesium Hydrox/Alum Hydrox 30 Ml Oral.Susp) 30 ml PO Q6H PRN PRN Reason: Heartburn/Nausea Last Admin: 11/12/23 06:20 Dose: 30 ml Albuterol Sulfate (Albuterol Sulfate 90 Mcg 8 Gm Inhaler) 2 puff INHALE RQ4H PRN PRN Reason: Wheezing Amlodipine Besylate (Amlodipine Besylate 5 Mg Tablet) 5 mg PO DAILY [facility]; Protocol Last Admin: 01/29/24 09:58 Dose: 5 mg Divalproex Sodium (Divalproex Sodium Sprinkles 125 Mg ) 250 mg PO TID [facility] Last Admin: 01/29/24 20:21 Dose: 250 mg Emtricitabine/Tenofovir (Emtricitabin/Tenofovir 200/300 Tablet) 1 tab PO DAILY [facility] Last Admin: 01/29/24 09:53 Dose: 1 tab Haloperidol (Haloperidol 5 Mg Tablet) 5 mg PO BEDTIME [facility] Last Admin: 01/29/24 20:21 Dose: 5 mg Haloperidol Decanoate (Haloperidol Decanoate 50 Mg/Ml Vial) 100 mg IM Q28D [facility] Last Admin: 01/20/24 23:24 Dose: 100 mg Levetiracetam (Levetiracetam 500 Mg Tablet) 500 mg PO BID [facility] Last Admin: 01/29/24 20:21 Dose: 500 mg Magnesium Hydroxide (Milk Of Magnesia 30 Ml Oral.Susp) 30 ml PO DAILY PRN PRN Reason: Constipation Mirtazapine (Mirtazapine 15 Mg Tablet) 15 mg PO BEDTIME [facility] Last Admin: 01/29/24 20:20 Dose: 15 mg Multivitamins/Vitamin C (Multivitamin Tablet) 1 tab PO BEDTIME [facility] Last Admin: 01/29/24 20:21 Dose: 1 tab Nicotine Polacrilex (Nicotine Polacrilex 2 Mg Gum) 4 mg BUCCAL Q2H PRN PRN Reason: Nicotine Cravings Olanzapine (Olanzapine 5 Mg Tablet) 5 mg PO BID@0800,1500 [facility] Last Admin: 01/29/24 15:05 Dose: 5 mg Olanzapine (Olanzapine 10 Mg Vial) 5 mg IM BID@0800,1500 PRN PRN Reason: if refuses 0800/1500 PO zyprexa Last Admin: 10/13/23 14:58 Dose: 5 mg Olanzapine (Olanzapine 10 Mg Tablet) 20 mg PO BEDTIME [facility] Last Admin: 01/29/24 20:21 Dose: 20 mg Polyethylene Glycol (Polyethylene Glycol 3350 17 Gm Powd.Pack) 17 gm PO DAILY PRN PRN Reason: Constipation Rilpivirine (Rilpivirine Hcl 25 Mg Tablet) 25 mg PO DAILY [facility] Last Admin: 01/29/24 09:53 Dose: 25 mg Thiamine HCl (Thiamine Hcl 100 Mg Tablet) 100 mg PO DAILY [facility] Last Admin: 01/29/24 09:53 Dose: 100 mg Trazodone HCl (Trazodone Hcl 50 Mg Tablet) 50 mg PO BEDTIME MRX1 [facility] Last Admin: 01/29/24 22:07 Dose: Not Given Allergies Allergies Allergy/AdvReac Type Severity Reaction Status Date / Time No Known Allergies Allergy Unverified 01/28/20 16:07 [No Known Allergies*] Assessment & Plan Assessment & Plan (1) Schizoaffective disorder, bipolar type: Status: Acute Code(s): F25.0 - Schizoaffective disorder, bipolar type Assessment and Plan: 11/01 mildly up - positive mood=- but less irritable than in past visits 11/02 CTP (2) Dementia: Status: Acute Code(s): F03.90 - Unspecified dementia, unspecified severity, without behavioral disturbance, psychotic disturbance, mood disturbance, and anxiety Assessment and Plan: 11/01 ongoing dementia continue with reorientation and distraction prn - (3) Noncompliance: Status: Acute Code(s): Z91.199 - Patient's noncompliance with other medical treatment and regimen due to unspecified reason Assessment and Plan: seems to be taking medication currently - watches nurse crush them and put in ice cream Plan The patient is an elderly male with a past history of schizoaffective disorder, dementia, HIV and other medical problems, chronically mentally ill resident of assisted living facility referred to this facility after he became non compliant with medications with daniella and psychosis. The patient was assessed by crisis and transferring to this facility for psychiatric stabilization. At the moment of the interview the patient was able to contract for safety. Plan 1. Continue with same treatment. 2. Waiting for placement 3. The patient had been referred to [facility] and guardianship was already filed with more Lopez for placement. 4. Continue tappering off Haldol Reason for continued inpatient stay Substantial Risk for: inability to function, rapid decompensation and med/psych decompensation Time Spent With Patient Time: Total time managing care of this patient today __20__ minutes.
[2024-01-30] MEDS: amLODIPine Besylate 5 MG TABLET PO (09:40)
[2024-01-30] MEDS: OLANZapine 5 MG TABLET PO ×2 (09:40→14:16)
[2024-01-30] MEDS: Thiamine HCL 100 MG TABLET PO (09:40)
[2024-01-30] MEDS: Emtricitabin/Tenofovir 200/300 TABLET 1 TAB PO (09:40)
[2024-01-30] MEDS: levETIRAcetam 500 MG TABLET PO ×2 (09:40→20:40)
[2024-01-30] MEDS: Divalproex Sodium Sprinkles 125 MG CAP.DR.SPR 250 MG PO ×3 (09:40→20:40)
[2024-01-30] MEDS: Rilpivirine HCL 25 MG TABLET PO (09:40)
[2024-01-30 19:59] VITALS: BP 114/66; PULSE 102; RESP 18; TEMP 37; O2SAT 95
[2024-01-30] MEDS: Multivitamin TABLET 1 TAB PO (20:40)
[2024-01-30] MEDS: OLANZapine 10 MG TABLET 20 MG PO (20:40)
[2024-01-30] MEDS: Mirtazapine 15 MG TABLET PO (20:40)
[2024-01-30] MEDS: traZODone HCL 50 MG TABLET PO (20:40)
[2024-01-30] MEDS: HaloperidoL 5 MG TABLET PO (20:40)
[2024-01-31 08:59] LABS: MANUAL DIFF FLAG NO
[2024-01-31 09:01] LABS: Basophils Percent Auto 0.5 % (0-2); Eosinophils Absolute Auto 0.3 X10*3/uL (0.0-0.4); Eosinophils Percent Auto 3.8 % (0-4); Hemoglobin 13.8 g/dl (14.0-18.0); Imm Gran Abs Auto 0.09 X10*3/uL (0.00-0.03); Imm Gran Pct Auto 1.2 % (0.0-0.4); Mean Corpuscular HGB Conc 32.9 g/dl (31.0-36.0); Mean Corpuscular Hemoglobin 33.4 pg (27.0-33.0); Mean Corpuscular Volume 101.7 fL (80.0-98.0); Mean Platelet Volume 9.5 fL (9.4-12.4); Monocytes Absolute Auto 0.6 X10*3/uL (0.1-1.2); Monocytes Percent Auto 8.3 % (2-11); Neutrophils Absolute Auto 2.5 x10*3/uL (2.0-8.3); Neutrophils Percent Auto 33.2 % (45-73); Platelet Count 167 X10*3/uL (160-400); Red Blood Count 4.13 X10*6/uL (4.60-5.80); Red Cell Distribution Width 14.5 % (11.0-16.0); White Blood Count 7.5 X10*3/uL (4.8-10.8)
[2024-01-31 09:16] VITALS: BP 158/96; PULSE 113; RESP 18; TEMP 36.1; O2SAT 96
[2024-01-31] MEDS: levETIRAcetam 500 MG TABLET PO ×2 (09:16→20:31)
[2024-01-31] MEDS: amLODIPine Besylate 5 MG TABLET PO (09:16)
[2024-01-31] MEDS: Rilpivirine HCL 25 MG TABLET PO (09:16)
[2024-01-31] MEDS: Thiamine HCL 100 MG TABLET PO (09:16)
[2024-01-31] MEDS: OLANZapine 5 MG TABLET PO ×2 (09:16→15:36)
[2024-01-31] MEDS: Emtricitabin/Tenofovir 200/300 TABLET 1 TAB PO (09:17)
[2024-01-31] MEDS: Divalproex Sodium Sprinkles 125 MG CAP.DR.SPR 250 MG PO ×3 (09:17→20:31)
[2024-01-31 09:19] LABS: Anion Gap 10 (12-20); Blood Urea Nitrogen 25 mg/dL (9-16); Calcium 8.9 mg/dL (8.4-10.2); Carbon Dioxide 31 mmol/L (22-29); Chloride 107 mmol/L (96-108); Creatinine Clr Calc Pharmacy 59.1; Estimated Glomerular Filt Rate > 60; Glucose Random 176 mg/dL (60-115); Potassium 4.3 mmol/L (3.3-5.1); Sodium 144 mmol/L (135-145)
--- NOTE | 2024-01-31 14:35 | P.PNPSI_ITS ---
Subjective Subjective Date of Service: 01/31/24 Reason For Visit: F32.9 Subjective Notes: Conditional Voluntary Interim History: The nursing staff reported no changes in mental status, fully compliant with treatment. On interview the patient denies new symptoms. Mental Status Exam Mental Status Exam Patient Appearance: Appropriate Patient Orientation: Person and Situation Level of Consciousness: Awake and Appropriate Patient Behavior: Guarded and Passive Mood Description: Calm Affect Description: Constricted Patient Cognition Impaired: Yes Ability to Follow Directions: Good Speech Pattern: Clear Hallucinations: None Delusions: Ideas of Reference Thought Process: Distracted Thought Content: positive for [place] and positive for Poverty of Content Judgement: Fair Diagnostics Vital Signs (24Hr): Vital Signs - 24 hr 01/30/24 19:59 01/31/24 09:16 01/31/24 09:16 Temperature 98.6 F 96.9 F Pulse Rate 102 H 113 H Respiratory Rate 18 18 Blood Pressure 114/66 158/96 H 158/96 H Pulse Oximetry 95 96 Oxygen Delivery Method Room Air Room Air BMI result Body Mass Index 19.7 Labs 01/31/24 08:54 01/31/24 08:54 Labs: Laboratory Results - last 48 hr 01/31/24 08:54 WBC 7.5 RBC 4.13 L Hgb 13.8 L Hct 42.0 MCV 101.7 H MCH 33.4 H MCHC 32.9 RDW 14.5 Plt Count 167 MPV 9.5 Immature Gran % (Auto) 1.2 H Neut % (Auto) 33.2 L Lymph % (Auto) 53.0 H [place] % (Auto) 8.3 Eos % (Auto) 3.8 Baso % (Auto) 0.5 Lymph # (Auto) 4.0 [place] # (Auto) 0.6 Eos # (Auto) 0.3 Baso # (Auto) 0.0 Abs Immat Gran (auto) 0.09 H Absolute Neuts (auto) 2.5 Absolute Nucleated RBC 0.000 Nucleated RBC % (auto) 0.0 Sodium 144 Potassium 4.3 Chloride 107 Carbon Dioxide 31 H Anion Gap 10 L BUN 25 H Creatinine 1.04 Estim Creat Clear Calc 59.1 Estimated GFR > 60 Random Glucose 176 H Calcium 8.9 D Medications Medications Current Medications Acetaminophen (Acetaminophen 325 Mg Tablet) 650 mg PO Q6H PRN PRN Reason: Pain (Scale Score 1-3) Last Admin: 12/19/23 20:10 Dose: 650 mg Al Hydroxide/Mg Hydroxide (Magnesium Hydrox/Alum Hydrox 30 Ml Oral.Susp) 30 ml PO Q6H PRN PRN Reason: Heartburn/Nausea Last Admin: 11/12/23 06:20 Dose: 30 ml Albuterol Sulfate (Albuterol Sulfate 90 Mcg 8 Gm Inhaler) 2 puff INHALE RQ4H PRN PRN Reason: Wheezing Amlodipine Besylate (Amlodipine Besylate 5 Mg Tablet) 5 mg PO DAILY [facility]; Protocol Last Admin: 01/31/24 09:16 Dose: 5 mg Divalproex Sodium (Divalproex Sodium Sprinkles 125 Mg Jabari.) 250 mg PO TID [facility] Last Admin: 01/31/24 09:17 Dose: 250 mg Emtricitabine/Tenofovir (Emtricitabin/Tenofovir 200/300 Tablet) 1 tab PO DAILY [facility] Last Admin: 01/31/24 09:17 Dose: 1 tab Haloperidol (Haloperidol 5 Mg Tablet) 5 mg PO BEDTIME [facility] Last Admin: 01/30/24 20:40 Dose: 5 mg Haloperidol Decanoate (Haloperidol Decanoate 50 Mg/Ml Vial) 100 mg IM Q28D [facility] Last Admin: 01/20/24 23:24 Dose: 100 mg Levetiracetam (Levetiracetam 500 Mg Tablet) 500 mg PO BID [facility] Last Admin: 01/31/24 09:16 Dose: 500 mg Magnesium Hydroxide (Milk Of Magnesia 30 Ml Oral.Susp) 30 ml PO DAILY PRN PRN Reason: Constipation Mirtazapine (Mirtazapine 15 Mg Tablet) 15 mg PO BEDTIME [facility] Last Admin: 01/30/24 20:40 Dose: 15 mg Multivitamins/Vitamin C (Multivitamin Tablet) 1 tab PO BEDTIME [facility] Last Admin: 01/30/24 20:40 Dose: 1 tab Nicotine Polacrilex (Nicotine Polacrilex 2 Mg Gum) 4 mg BUCCAL Q2H PRN PRN Reason: Nicotine Cravings Olanzapine (Olanzapine 5 Mg Tablet) 5 mg PO BID@0800,1500 [facility] Last Admin: 01/31/24 09:16 Dose: 5 mg Olanzapine (Olanzapine 10 Mg Vial) 5 mg IM BID@0800,1500 PRN PRN Reason: if refuses 0800/1500 PO zyprexa Last Admin: 10/13/23 14:58 Dose: 5 mg Olanzapine (Olanzapine 10 Mg Tablet) 20 mg PO BEDTIME [facility] Last Admin: 01/30/24 20:40 Dose: 20 mg Polyethylene Glycol (Polyethylene Glycol 3350 17 Gm Powd.Pack) 17 gm PO DAILY PRN PRN Reason: Constipation Rilpivirine (Rilpivirine Hcl 25 Mg Tablet) 25 mg PO DAILY [facility] Last Admin: 01/31/24 09:16 Dose: 25 mg Thiamine HCl (Thiamine Hcl 100 Mg Tablet) 100 mg PO DAILY [facility] Last Admin: 01/31/24 09:16 Dose: 100 mg Trazodone HCl (Trazodone Hcl 50 Mg Tablet) 50 mg PO BEDTIME MRX1 [facility] Last Admin: 01/30/24 22:54 Dose: Not Given Allergies Allergies Allergy/AdvReac Type Severity Reaction Status Date / Time No Known Allergies Allergy Unverified 01/28/20 16:07 [No Known Allergies*] Assessment & Plan Assessment & Plan (1) Schizoaffective disorder, bipolar type: Status: Acute Code(s): F25.0 - Schizoaffective disorder, bipolar type Assessment and Plan: 11/01 mildly up - positive mood=- but less irritable than in past visits 11/02 CTP (2) Dementia: Status: Acute Code(s): F03.90 - Unspecified dementia, unspecified severity, without behavioral disturbance, psychotic disturbance, mood disturbance, and anxiety Assessment and Plan: 11/01 ongoing dementia continue with reorientation and distraction prn - (3) Noncompliance: Status: Acute Code(s): Z91.199 - Patient's noncompliance with other medical treatment and regimen due to unspecified reason Assessment and Plan: seems to be taking medication currently - watches nurse crush them and put in ice cream Plan The patient is an elderly male with a past history of schizoaffective disorder, dementia, HIV and other medical problems, chronically mentally ill resident of assisted living facility referred to this facility after he became non compliant with medications with daniella and psychosis. The patient was assessed by crisis and transferring to this facility for psychiatric stabilization. At the moment of the interview the patient was able to contract for safety. Plan 1. Continue with same treatment. 2. Waiting for placement 3. The patient had been referred to [facility] and guardianship was already filed with more Lopez for placement. 4. Continue tappering off Haldol Reason for continued inpatient stay Substantial Risk for: inability to function, rapid decompensation and med/psych decompensation Time Spent With Patient Time: Total time managing care of this patient today __20__ minutes.
[2024-01-31] MEDS: Acetaminophen 325 MG TABLET 650 MG PO (15:36)
[2024-01-31 20:00] VITALS: BP 109/72; PULSE 91; RESP 18; TEMP 36.6; O2SAT 95
[2024-01-31] MEDS: Mirtazapine 15 MG TABLET PO (20:31)
[2024-01-31] MEDS: OLANZapine 10 MG TABLET 20 MG PO (20:31)
[2024-01-31] MEDS: HaloperidoL 5 MG TABLET PO (20:31)
[2024-01-31] MEDS: traZODone HCL 50 MG TABLET PO (20:31)
[2024-01-31] MEDS: Multivitamin TABLET 1 TAB PO (20:31)
[2024-02-01 08:00] VITALS: BP 109/77; PULSE 115; RESP 16; TEMP 36.4; O2SAT 95
[2024-02-01] MEDS: Divalproex Sodium Sprinkles 125 MG CAP.DR.SPR 250 MG PO ×3 (10:15→20:47)
[2024-02-01] MEDS: Rilpivirine HCL 25 MG TABLET PO (10:15)
[2024-02-01] MEDS: OLANZapine 5 MG TABLET PO ×2 (10:15→15:07)
[2024-02-01] MEDS: levETIRAcetam 500 MG TABLET PO ×2 (10:16→20:47)
[2024-02-01] MEDS: Thiamine HCL 100 MG TABLET PO (10:16)
[2024-02-01] MEDS: Emtricitabin/Tenofovir 200/300 TABLET 1 TAB PO (10:16)
[2024-02-01 10:18] VITALS: BP 109/77
[2024-02-01] MEDS: amLODIPine Besylate 5 MG TABLET PO (10:18)
--- NOTE | 2024-02-01 11:12 | P.PNPSI_ITS ---
Subjective Subjective Date of Service: 02/01/24 Reason For Visit: F32.9 Subjective Notes: Conditional Voluntary Interim History: Patient was seen and discussed in rounds today. Records and plans were reviewed. He has been cooperative and compliant. He has been urinating on the floor and it has been difficult to get a sample. He also refused respiratory panel. Eating and sleeping adequately. No changes were made Review of Systems Review of Systems Yes all other systems are reviewed and are negative Mental Status Exam Mental Status Exam Patient Appearance: Appropriate Patient Orientation: Person and Situation Level of Consciousness: Awake and Appropriate Patient Behavior: Guarded and Passive Mood Description: Calm Affect Description: Constricted Patient Cognition Impaired: Yes Ability to Follow Directions: Good Speech Pattern: Clear Hallucinations: None Delusions: Ideas of Reference Thought Process: Distracted Thought Content: positive for [place] and positive for Poverty of Content Judgement: Fair Diagnostics Vital Signs (24Hr): Vital Signs - 24 hr 01/31/24 20:00 02/01/24 08:00 02/01/24 10:18 Temperature 97.9 F 97.5 F Pulse Rate 91 115 H Respiratory Rate 18 16 Blood Pressure 109/72 109/77 109/77 Pulse Oximetry 95 95 Oxygen Delivery Method Room Air Room Air BMI result Body Mass Index 19.7 Labs 01/31/24 08:54 01/31/24 08:54 Labs: Laboratory Results - last 48 hr 01/31/24 08:54 WBC 7.5 RBC 4.13 L Hgb 13.8 L Hct 42.0 MCV 101.7 H MCH 33.4 H MCHC 32.9 RDW 14.5 Plt Count 167 MPV 9.5 Immature Gran % (Auto) 1.2 H Neut % (Auto) 33.2 L Lymph % (Auto) 53.0 H [place] % (Auto) 8.3 Eos % (Auto) 3.8 Baso % (Auto) 0.5 Lymph # (Auto) 4.0 [place] # (Auto) 0.6 Eos # (Auto) 0.3 Baso # (Auto) 0.0 Abs Immat Gran (auto) 0.09 H Absolute Neuts (auto) 2.5 Absolute Nucleated RBC 0.000 Nucleated RBC % (auto) 0.0 Sodium 144 Potassium 4.3 Chloride 107 Carbon Dioxide 31 H Anion Gap 10 L BUN 25 H Creatinine 1.04 Estim Creat Clear Calc 59.1 Estimated GFR > 60 Random Glucose 176 H Calcium 8.9 D Medications Medications Current Medications Acetaminophen (Acetaminophen 325 Mg Tablet) 650 mg PO Q6H PRN PRN Reason: Pain (Scale Score 1-3) Last Admin: 01/31/24 15:36 Dose: 650 mg Al Hydroxide/Mg Hydroxide (Magnesium Hydrox/Alum Hydrox 30 Ml Oral.Susp) 30 ml PO Q6H PRN PRN Reason: Heartburn/Nausea Last Admin: 11/12/23 06:20 Dose: 30 ml Albuterol Sulfate (Albuterol Sulfate 90 Mcg 8 Gm Inhaler) 2 puff INHALE RQ4H PRN PRN Reason: Wheezing Amlodipine Besylate (Amlodipine Besylate 5 Mg Tablet) 5 mg PO DAILY [facility]; Protocol Last Admin: 02/01/24 10:18 Dose: 5 mg Divalproex Sodium (Divalproex Sodium Sprinkles 125 Mg Cap.) 250 mg PO TID [facility] Last Admin: 02/01/24 10:15 Dose: 250 mg Emtricitabine/Tenofovir (Emtricitabin/Tenofovir 200/300 Tablet) 1 tab PO DAILY [facility] Last Admin: 02/01/24 10:16 Dose: 1 tab Haloperidol (Haloperidol 5 Mg Tablet) 5 mg PO BEDTIME [facility] Last Admin: 01/31/24 20:31 Dose: 5 mg Haloperidol Decanoate (Haloperidol Decanoate 50 Mg/Ml Vial) 100 mg IM Q28D [facility] Last Admin: 01/20/24 23:24 Dose: 100 mg Levetiracetam (Levetiracetam 500 Mg Tablet) 500 mg PO BID [facility] Last Admin: 02/01/24 10:16 Dose: 500 mg Magnesium Hydroxide (Milk Of Magnesia 30 Ml Oral.Susp) 30 ml PO DAILY PRN PRN Reason: Constipation Mirtazapine (Mirtazapine 15 Mg Tablet) 15 mg PO BEDTIME [facility] Last Admin: 01/31/24 20:31 Dose: 15 mg Multivitamins/Vitamin C (Multivitamin Tablet) 1 tab PO BEDTIME [facility] Last Admin: 01/31/24 20:31 Dose: 1 tab Nicotine Polacrilex (Nicotine Polacrilex 2 Mg Gum) 4 mg BUCCAL Q2H PRN PRN Reason: Nicotine Cravings Olanzapine (Olanzapine 5 Mg Tablet) 5 mg PO BID@0800,1500 [facility] Last Admin: 02/01/24 10:15 Dose: 5 mg Olanzapine (Olanzapine 10 Mg Vial) 5 mg IM BID@0800,1500 PRN PRN Reason: if refuses 0800/1500 PO zyprexa Last Admin: 10/13/23 14:58 Dose: 5 mg Olanzapine (Olanzapine 10 Mg Tablet) 20 mg PO BEDTIME [facility] Last Admin: 01/31/24 20:31 Dose: 20 mg Polyethylene Glycol (Polyethylene Glycol 3350 17 Gm Powd.Pack) 17 gm PO DAILY PRN PRN Reason: Constipation Rilpivirine (Rilpivirine Hcl 25 Mg Tablet) 25 mg PO DAILY [facility] Last Admin: 02/01/24 10:15 Dose: 25 mg Thiamine HCl (Thiamine Hcl 100 Mg Tablet) 100 mg PO DAILY [facility] Last Admin: 02/01/24 10:16 Dose: 100 mg Trazodone HCl (Trazodone Hcl 50 Mg Tablet) 50 mg PO BEDTIME MRX1 [facility] Last Admin: 01/31/24 21:57 Dose: Not Given Allergies Allergies Allergy/AdvReac Type Severity Reaction Status Date / Time No Known Allergies Allergy Unverified 01/28/20 16:07 [No Known Allergies*] Assessment & Plan Assessment & Plan (1) Schizoaffective disorder, bipolar type: Status: Acute Code(s): F25.0 - Schizoaffective disorder, bipolar type Assessment and Plan: 11/01 mildly up - positive mood=- but less irritable than in past visits 11/02 CTP (2) Dementia: Status: Acute Code(s): F03.90 - Unspecified dementia, unspecified severity, without behavioral disturbance, psychotic disturbance, mood disturbance, and anxiety Assessment and Plan: 11/01 ongoing dementia continue with reorientation and distraction prn - (3) Noncompliance: Status: Acute Code(s): Z91.199 - Patient's noncompliance with other medical treatment and regimen due to unspecified reason Assessment and Plan: seems to be taking medication currently - watches nurse crush them and put in ice cream Plan The patient is an elderly male with a past history of schizoaffective disorder, dementia, HIV and other medical problems, chronically mentally ill resident of assisted living facility referred to this facility after he became non compliant with medications with daniella and psychosis. The patient was assessed by crisis and transferring to this facility for psychiatric stabilization. At the moment of the interview the patient was able to contract for safety. Plan 1. Continue with same treatment. 2. Waiting for placement 3. The patient had been referred to [facility] and guardianship was already filed with more Lopez for placement. 4. Continue tappering off Haldol 01/31: Continue current regimen and plans Reason for continued inpatient stay Substantial Risk for: inability to function and med/psych decompensation Time Spent With Patient Time: Total time managing care of this patient today ____ minutes.
[2024-02-01 20:00] VITALS: BP 125/79; PULSE 109; RESP 16; TEMP 36.8; O2SAT 95
[2024-02-01] MEDS: Multivitamin TABLET 1 TAB PO (20:47)
[2024-02-01] MEDS: OLANZapine 10 MG TABLET 20 MG PO (20:47)
[2024-02-01] MEDS: traZODone HCL 50 MG TABLET PO (20:47)
[2024-02-01] MEDS: HaloperidoL 5 MG TABLET PO (20:47)
[2024-02-01] MEDS: Mirtazapine 15 MG TABLET PO (20:47)
[2024-02-02 07:48] VITALS: BP 132/92; PULSE 109; RESP 15; TEMP 36.2; O2SAT 97
[2024-02-02] MEDS: levETIRAcetam 500 MG TABLET PO ×2 (07:51→20:20)
[2024-02-02] MEDS: Thiamine HCL 100 MG TABLET PO (07:51)
[2024-02-02] MEDS: Divalproex Sodium Sprinkles 125 MG CAP.DR.SPR 250 MG PO ×3 (07:51→20:20)
[2024-02-02] MEDS: Rilpivirine HCL 25 MG TABLET PO (07:51)
[2024-02-02] MEDS: amLODIPine Besylate 5 MG TABLET PO (07:51)
[2024-02-02] MEDS: Emtricitabin/Tenofovir 200/300 TABLET 1 TAB PO (07:51)
[2024-02-02] MEDS: OLANZapine 5 MG TABLET PO ×2 (07:51→15:23)
--- NOTE | 2024-02-02 08:15 | P.PNPSI_ITS ---
Subjective Subjective Date of Service: 02/02/24 Reason For Visit: F32.9 Subjective Notes: Conditional Voluntary Interim History: Patient was seen and discussed in rounds today. Records and plans were reviewed. He has been stable with no behavioral issues. Eating and sleeping adequately. Has been having some congestion. No dangerous behaviors. No changes were made today Review of Systems Review of Systems Yes all other systems are reviewed and are negative Mental Status Exam Mental Status Exam Patient Appearance: Appropriate Patient Orientation: Person and Situation Level of Consciousness: Awake and Appropriate Patient Behavior: Guarded and Passive Mood Description: Calm Affect Description: Constricted Patient Cognition Impaired: Yes Ability to Follow Directions: Good Speech Pattern: Clear Hallucinations: None Delusions: Ideas of Reference Thought Process: Distracted Thought Content: positive for [place] and positive for Poverty of Content Judgement: Fair Diagnostics Vital Signs (24Hr): Vital Signs - 24 hr 02/01/24 10:18 02/01/24 20:00 02/02/24 07:48 Temperature 98.2 F 97.1 F Pulse Rate 109 H 109 H Respiratory Rate 16 15 Blood Pressure 109/77 125/79 132/92 H Pulse Oximetry 95 97 Oxygen Delivery Method Room Air Room Air BMI result Body Mass Index 19.7 Labs 01/31/24 08:54 01/31/24 08:54 Labs: Laboratory Results - last 48 hr 01/31/24 08:54 WBC 7.5 RBC 4.13 L Hgb 13.8 L Hct 42.0 MCV 101.7 H MCH 33.4 H MCHC 32.9 RDW 14.5 Plt Count 167 MPV 9.5 Immature Gran % (Auto) 1.2 H Neut % (Auto) 33.2 L Lymph % (Auto) 53.0 H [place] % (Auto) 8.3 Eos % (Auto) 3.8 Baso % (Auto) 0.5 Lymph # (Auto) 4.0 [place] # (Auto) 0.6 Eos # (Auto) 0.3 Baso # (Auto) 0.0 Abs Immat Gran (auto) 0.09 H Absolute Neuts (auto) 2.5 Absolute Nucleated RBC 0.000 Nucleated RBC % (auto) 0.0 Sodium 144 Potassium 4.3 Chloride 107 Carbon Dioxide 31 H Anion Gap 10 L BUN 25 H Creatinine 1.04 Estim Creat Clear Calc 59.1 Estimated GFR > 60 Random Glucose 176 H Calcium 8.9 D Medications Medications Current Medications Acetaminophen (Acetaminophen 325 Mg Tablet) 650 mg PO Q6H PRN PRN Reason: Pain (Scale Score 1-3) Last Admin: 01/31/24 15:36 Dose: 650 mg Al Hydroxide/Mg Hydroxide (Magnesium Hydrox/Alum Hydrox 30 Ml Oral.Susp) 30 ml PO Q6H PRN PRN Reason: Heartburn/Nausea Last Admin: 11/12/23 06:20 Dose: 30 ml Albuterol Sulfate (Albuterol Sulfate 90 Mcg 8 Gm Inhaler) 2 puff INHALE RQ4H PRN PRN Reason: Wheezing Amlodipine Besylate (Amlodipine Besylate 5 Mg Tablet) 5 mg PO DAILY [facility]; Protocol Last Admin: 02/02/24 07:51 Dose: 5 mg Divalproex Sodium (Divalproex Sodium Sprinkles 125 Mg ) 250 mg PO TID [facility] Last Admin: 02/02/24 07:51 Dose: 250 mg Emtricitabine/Tenofovir (Emtricitabin/Tenofovir 200/300 Tablet) 1 tab PO DAILY [facility] Last Admin: 02/02/24 07:51 Dose: 1 tab Haloperidol (Haloperidol 5 Mg Tablet) 5 mg PO BEDTIME [facility] Last Admin: 02/01/24 20:47 Dose: 5 mg Haloperidol Decanoate (Haloperidol Decanoate 50 Mg/Ml Vial) 100 mg IM Q28D [facility] Last Admin: 01/20/24 23:24 Dose: 100 mg Levetiracetam (Levetiracetam 500 Mg Tablet) 500 mg PO BID [facility] Last Admin: 02/02/24 07:51 Dose: 500 mg Magnesium Hydroxide (Milk Of Magnesia 30 Ml Oral.Susp) 30 ml PO DAILY PRN PRN Reason: Constipation Mirtazapine (Mirtazapine 15 Mg Tablet) 15 mg PO BEDTIME [facility] Last Admin: 02/01/24 20:47 Dose: 15 mg Multivitamins/Vitamin C (Multivitamin Tablet) 1 tab PO BEDTIME [facility] Last Admin: 02/01/24 20:47 Dose: 1 tab Nicotine Polacrilex (Nicotine Polacrilex 2 Mg Gum) 4 mg BUCCAL Q2H PRN PRN Reason: Nicotine Cravings Olanzapine (Olanzapine 5 Mg Tablet) 5 mg PO BID@0800,1500 [facility] Last Admin: 02/02/24 07:51 Dose: 5 mg Olanzapine (Olanzapine 10 Mg Vial) 5 mg IM BID@0800,1500 PRN PRN Reason: if refuses 0800/1500 PO zyprexa Last Admin: 10/13/23 14:58 Dose: 5 mg Olanzapine (Olanzapine 10 Mg Tablet) 20 mg PO BEDTIME [facility] Last Admin: 02/01/24 20:47 Dose: 20 mg Polyethylene Glycol (Polyethylene Glycol 3350 17 Gm Powd.Pack) 17 gm PO DAILY PRN PRN Reason: Constipation Rilpivirine (Rilpivirine Hcl 25 Mg Tablet) 25 mg PO DAILY [facility] Last Admin: 02/02/24 07:51 Dose: 25 mg Thiamine HCl (Thiamine Hcl 100 Mg Tablet) 100 mg PO DAILY [facility] Last Admin: 02/02/24 07:51 Dose: 100 mg Trazodone HCl (Trazodone Hcl 50 Mg Tablet) 50 mg PO BEDTIME MRX1 [facility] Last Admin: 02/01/24 23:07 Dose: Not Given Allergies Allergies Allergy/AdvReac Type Severity Reaction Status Date / Time No Known Allergies Allergy Unverified 01/28/20 16:07 [No Known Allergies*] Assessment & Plan Assessment & Plan (1) Schizoaffective disorder, bipolar type: Status: Acute Code(s): F25.0 - Schizoaffective disorder, bipolar type Assessment and Plan: 11/01 mildly up - positive mood=- but less irritable than in past visits 11/02 CTP (2) Dementia: Status: Acute Code(s): F03.90 - Unspecified dementia, unspecified severity, without behavioral disturbance, psychotic disturbance, mood disturbance, and anxiety Assessment and Plan: 11/01 ongoing dementia continue with reorientation and distraction prn - (3) Noncompliance: Status: Acute Code(s): Z91.199 - Patient's noncompliance with other medical treatment and regimen due to unspecified reason Assessment and Plan: seems to be taking medication currently - watches nurse crush them and put in ice cream Plan The patient is an elderly male with a past history of schizoaffective disorder, dementia, HIV and other medical problems, chronically mentally ill resident of assisted living facility referred to this facility after he became non compliant with medications with daniella and psychosis. The patient was assessed by crisis and transferring to this facility for psychiatric stabilization. At the moment of the interview the patient was able to contract for safety. Plan 1. Continue with same treatment. 2. Waiting for placement 3. The patient had been referred to [facility] and guardianship was already filed with more Lopez for placement. 4. Continue tappering off Haldol 01/31: Continue current regimen and plans 02/01: Continue current regimen and plans Reason for continued inpatient stay Substantial Risk for: med/psych decompensation Time Spent With Patient Time: Total time managing care of this patient today ____ minutes.
[2024-02-02 20:00] VITALS: BP 126/79; PULSE 100; RESP 16; TEMP 36.8; O2SAT 94
[2024-02-02] MEDS: Mirtazapine 15 MG TABLET PO (20:20)
[2024-02-02] MEDS: HaloperidoL 5 MG TABLET PO (20:20)
[2024-02-02] MEDS: Multivitamin TABLET 1 TAB PO (20:20)
[2024-02-02] MEDS: OLANZapine 10 MG TABLET 20 MG PO (20:21)
[2024-02-02] MEDS: traZODone HCL 50 MG TABLET PO (20:21)
[2024-02-03 08:35] VITALS: BP 134/92; PULSE 105; RESP 18; TEMP 36; O2SAT 95
[2024-02-03] MEDS: levETIRAcetam 500 MG TABLET PO ×2 (09:34→20:32)
[2024-02-03] MEDS: Divalproex Sodium Sprinkles 125 MG CAP.DR.SPR 250 MG PO ×3 (09:34→20:32)
[2024-02-03] MEDS: Rilpivirine HCL 25 MG TABLET PO (09:34)
[2024-02-03] MEDS: Milk of Magnesia 30 ML ORAL.SUSP PO (09:34)
[2024-02-03 09:35] VITALS: BP 134/92
[2024-02-03] MEDS: OLANZapine 5 MG TABLET PO ×2 (09:35→14:16)
[2024-02-03] MEDS: amLODIPine Besylate 5 MG TABLET PO (09:35)
[2024-02-03] MEDS: Emtricitabin/Tenofovir 200/300 TABLET 1 TAB PO (09:36)
[2024-02-03] MEDS: Thiamine HCL 100 MG TABLET PO (09:36)
--- NOTE | 2024-02-03 13:54 | HO.PSYCHPN ---
Subjective Subjective Date of Service: 02/03/24 Reason For Visit: F32.9 Subjective Notes: Conditional Voluntary Interim History: The nursing staff reported no changes in his mental status fully compliant with treatment. On interview the patient denies new symptoms, waiting for placement. Mental Status Exam Mental Status Exam Patient Appearance: Appropriate Patient Orientation: Person and Situation Level of Consciousness: Awake and Appropriate Patient Behavior: Guarded and Passive Mood Description: Withdrawn Affect Description: Calm Patient Cognition Impaired: Yes Ability to Follow Directions: Good Speech Pattern: Clear Hallucinations: None Delusions: Not Present Thought Process: Distracted and Slowed Thinking Thought Content: positive for [place] and positive for Poverty of Content Judgement: Fair Diagnostics Vital Signs (24Hr): Vital Signs - 24 hr 02/02/24 20:00 02/03/24 08:35 02/03/24 09:35 Temperature 98.3 F 96.8 F Pulse Rate 100 105 H Respiratory Rate 16 18 Blood Pressure 126/79 134/92 H 134/92 H Pulse Oximetry 94 95 Oxygen Delivery Method Room Air Room Air BMI result Body Mass Index 19.7 Labs 01/31/24 08:54 01/31/24 08:54 Medications Medications Current Medications Acetaminophen (Acetaminophen 325 Mg Tablet) 650 mg PO Q6H PRN PRN Reason: Pain (Scale Score 1-3) Last Admin: 01/31/24 15:36 Dose: 650 mg Al Hydroxide/Mg Hydroxide (Magnesium Hydrox/Alum Hydrox 30 Ml Oral.Susp) 30 ml PO Q6H PRN PRN Reason: Heartburn/Nausea Last Admin: 11/12/23 06:20 Dose: 30 ml Albuterol Sulfate (Albuterol Sulfate 90 Mcg 8 Gm Inhaler) 2 puff INHALE RQ4H PRN PRN Reason: Wheezing Amlodipine Besylate (Amlodipine Besylate 5 Mg Tablet) 5 mg PO DAILY [facility]; Protocol Last Admin: 02/03/24 09:35 Dose: 5 mg Divalproex Sodium (Divalproex Sodium Sprinkles 125 Mg ) 250 mg PO TID [facility] Last Admin: 02/03/24 09:34 Dose: 250 mg Emtricitabine/Tenofovir (Emtricitabin/Tenofovir 200/300 Tablet) 1 tab PO DAILY [facility] Last Admin: 02/03/24 09:36 Dose: 1 tab Haloperidol (Haloperidol 5 Mg Tablet) 5 mg PO BEDTIME [facility] Last Admin: 02/02/24 20:20 Dose: 5 mg Haloperidol Decanoate (Haloperidol Decanoate 50 Mg/Ml Vial) 100 mg IM Q28D [facility] Last Admin: 01/20/24 23:24 Dose: 100 mg Levetiracetam (Levetiracetam 500 Mg Tablet) 500 mg PO BID [facility] Last Admin: 02/03/24 09:34 Dose: 500 mg Magnesium Hydroxide (Milk Of Magnesia 30 Ml Oral.Susp) 30 ml PO DAILY PRN PRN Reason: Constipation Last Admin: 02/03/24 09:34 Dose: 30 ml Mirtazapine (Mirtazapine 15 Mg Tablet) 15 mg PO BEDTIME [facility] Last Admin: 02/02/24 20:20 Dose: 15 mg Multivitamins/Vitamin C (Multivitamin Tablet) 1 tab PO BEDTIME [facility] Last Admin: 02/02/24 20:20 Dose: 1 tab Nicotine Polacrilex (Nicotine Polacrilex 2 Mg Gum) 4 mg BUCCAL Q2H PRN PRN Reason: Nicotine Cravings Olanzapine (Olanzapine 5 Mg Tablet) 5 mg PO BID@0800,1500 [facility] Last Admin: 02/03/24 09:35 Dose: 5 mg Olanzapine (Olanzapine 10 Mg Vial) 5 mg IM BID@0800,1500 PRN PRN Reason: if refuses 0800/1500 PO zyprexa Last Admin: 10/13/23 14:58 Dose: 5 mg Olanzapine (Olanzapine 10 Mg Tablet) 20 mg PO BEDTIME [facility] Last Admin: 02/02/24 20:21 Dose: 20 mg Polyethylene Glycol (Polyethylene Glycol 3350 17 Gm Powd.Pack) 17 gm PO DAILY PRN PRN Reason: Constipation Rilpivirine (Rilpivirine Hcl 25 Mg Tablet) 25 mg PO DAILY [facility] Last Admin: 02/03/24 09:34 Dose: 25 mg Thiamine HCl (Thiamine Hcl 100 Mg Tablet) 100 mg PO DAILY [facility] Last Admin: 02/03/24 09:36 Dose: 100 mg Trazodone HCl (Trazodone Hcl 50 Mg Tablet) 50 mg PO BEDTIME MRX1 [facility] Last Admin: 02/02/24 23:17 Dose: Not Given Allergies Allergies Allergy/AdvReac Type Severity Reaction Status Date / Time No Known Allergies Allergy Unverified 01/28/20 16:07 [No Known Allergies*] Assessment & Plan Assessment & Plan (1) Schizoaffective disorder, bipolar type: Status: Acute Code(s): F25.0 - Schizoaffective disorder, bipolar type Assessment and Plan: 11/01 mildly up - positive mood=- but less irritable than in past visits 11/02 CTP (2) Dementia: Status: Acute Code(s): F03.90 - Unspecified dementia, unspecified severity, without behavioral disturbance, psychotic disturbance, mood disturbance, and anxiety Assessment and Plan: 11/01 ongoing dementia continue with reorientation and distraction prn - (3) Noncompliance: Status: Acute Code(s): Z91.199 - Patient's noncompliance with other medical treatment and regimen due to unspecified reason Assessment and Plan: seems to be taking medication currently - watches nurse crush them and put in ice cream Plan The patient is an elderly male with a past history of schizoaffective disorder, dementia, HIV and other medical problems, chronically mentally ill resident of assisted living facility referred to this facility after he became non compliant with medications with daniella and psychosis. The patient was assessed by crisis and transferring to this facility for psychiatric stabilization. At the moment of the interview the patient was able to contract for safety. Plan 1. Continue with same treatment. 2. Waiting for placement 3. The patient had been referred to [facility] and guardianship was already filed with more Lopez for placement. 4. Continue tappering off Haldol Reason for continued inpatient stay Substantial Risk for: inability to function, rapid decompensation and med/psych decompensation Time Spent With Patient Time: Total time managing care of this patient today _20___ minutes.
[2024-02-03 20:00] VITALS: BP 110/67; PULSE 112; TEMP 36.2; O2SAT 92
[2024-02-03] MEDS: traZODone HCL 50 MG TABLET PO (20:32)
[2024-02-03] MEDS: OLANZapine 10 MG TABLET 20 MG PO (20:32)
[2024-02-03] MEDS: HaloperidoL 5 MG TABLET PO (20:32)
[2024-02-03] MEDS: Mirtazapine 15 MG TABLET PO (20:32)
[2024-02-03] MEDS: Multivitamin TABLET 1 TAB PO (20:32)
[2024-02-04 08:06] VITALS: BP 108/68; PULSE 104; RESP 18; TEMP 36.1; O2SAT 94
[2024-02-04] MEDS: OLANZapine 5 MG TABLET PO ×2 (08:40→14:25)
[2024-02-04] MEDS: Divalproex Sodium Sprinkles 125 MG CAP.DR.SPR 250 MG PO ×3 (08:40→19:57)
[2024-02-04] MEDS: Rilpivirine HCL 25 MG TABLET PO (08:40)
[2024-02-04] MEDS: levETIRAcetam 500 MG TABLET PO ×2 (08:40→19:57)
[2024-02-04] MEDS: Emtricitabin/Tenofovir 200/300 TABLET 1 TAB PO (08:41)
[2024-02-04] MEDS: amLODIPine Besylate 5 MG TABLET PO (08:41)
[2024-02-04] MEDS: Thiamine HCL 100 MG TABLET PO (08:41)
--- NOTE | 2024-02-04 11:50 | P.PNPSI_ITS ---
Subjective Subjective Date of Service: 02/04/24 Reason For Visit: F32.9 Subjective Notes: Conditional Voluntary Interim History: The nursing staff reported no changes in his mental status, pleasant cooperative fully compliant with treatment. The psychiatric social worker supervisor reported they are waiting for [facility] application. On interview the patient denies new symptoms, waiting for placement Mental Status Exam Mental Status Exam Patient Appearance: Appropriate Patient Orientation: Person and Situation Level of Consciousness: Awake and Appropriate Patient Behavior: Guarded and Passive Mood Description: Withdrawn Affect Description: Constricted Patient Cognition Impaired: Yes Ability to Follow Directions: Good Speech Pattern: Clear Hallucinations: None Delusions: Not Present Thought Process: Distracted and Slowed Thinking Thought Content: positive for [place] and positive for Poverty of Content Judgement: Fair Diagnostics Vital Signs (24Hr): Vital Signs - 24 hr 02/03/24 20:00 02/04/24 08:06 Temperature 97.2 F 96.9 F Pulse Rate 112 H 104 H Respiratory Rate 18 Blood Pressure 110/67 108/68 Pulse Oximetry 92 94 Oxygen Delivery Method Room Air Room Air BMI result Body Mass Index 19.7 Labs 01/31/24 08:54 01/31/24 08:54 Medications Medications Current Medications Acetaminophen (Acetaminophen 325 Mg Tablet) 650 mg PO Q6H PRN PRN Reason: Pain (Scale Score 1-3) Last Admin: 01/31/24 15:36 Dose: 650 mg Al Hydroxide/Mg Hydroxide (Magnesium Hydrox/Alum Hydrox 30 Ml Oral.Susp) 30 ml PO Q6H PRN PRN Reason: Heartburn/Nausea Last Admin: 11/12/23 06:20 Dose: 30 ml Albuterol Sulfate (Albuterol Sulfate 90 Mcg 8 Gm Inhaler) 2 puff INHALE RQ4H PRN PRN Reason: Wheezing Amlodipine Besylate (Amlodipine Besylate 5 Mg Tablet) 5 mg PO DAILY [facility]; Protocol Last Admin: 02/04/24 08:41 Dose: 5 mg Divalproex Sodium (Divalproex Sodium Sprinkles 125 Mg ) 250 mg PO TID [facility] Last Admin: 02/04/24 08:40 Dose: 250 mg Emtricitabine/Tenofovir (Emtricitabin/Tenofovir 200/300 Tablet) 1 tab PO DAILY [facility] Last Admin: 02/04/24 08:41 Dose: 1 tab Haloperidol (Haloperidol 5 Mg Tablet) 5 mg PO BEDTIME [facility] Last Admin: 02/03/24 20:32 Dose: 5 mg Haloperidol Decanoate (Haloperidol Decanoate 50 Mg/Ml Vial) 100 mg IM Q28D [facility] Last Admin: 01/20/24 23:24 Dose: 100 mg Levetiracetam (Levetiracetam 500 Mg Tablet) 500 mg PO BID [facility] Last Admin: 02/04/24 08:40 Dose: 500 mg Magnesium Hydroxide (Milk Of Magnesia 30 Ml Oral.Susp) 30 ml PO DAILY PRN PRN Reason: Constipation Last Admin: 02/03/24 09:34 Dose: 30 ml Mirtazapine (Mirtazapine 15 Mg Tablet) 15 mg PO BEDTIME [facility] Last Admin: 02/03/24 20:32 Dose: 15 mg Multivitamins/Vitamin C (Multivitamin Tablet) 1 tab PO BEDTIME [facility] Last Admin: 02/03/24 20:32 Dose: 1 tab Nicotine Polacrilex (Nicotine Polacrilex 2 Mg Gum) 4 mg BUCCAL Q2H PRN PRN Reason: Nicotine Cravings Olanzapine (Olanzapine 5 Mg Tablet) 5 mg PO BID@0800,1500 [facility] Last Admin: 02/04/24 08:40 Dose: 5 mg Olanzapine (Olanzapine 10 Mg Vial) 5 mg IM BID@0800,1500 PRN PRN Reason: if refuses 0800/1500 PO zyprexa Last Admin: 10/13/23 14:58 Dose: 5 mg Olanzapine (Olanzapine 10 Mg Tablet) 20 mg PO BEDTIME [facility] Last Admin: 02/03/24 20:32 Dose: 20 mg Polyethylene Glycol (Polyethylene Glycol 3350 17 Gm Powd.Pack) 17 gm PO DAILY PRN PRN Reason: Constipation Rilpivirine (Rilpivirine Hcl 25 Mg Tablet) 25 mg PO DAILY [facility] Last Admin: 02/04/24 08:40 Dose: 25 mg Thiamine HCl (Thiamine Hcl 100 Mg Tablet) 100 mg PO DAILY [facility] Last Admin: 02/04/24 08:41 Dose: 100 mg Trazodone HCl (Trazodone Hcl 50 Mg Tablet) 50 mg PO BEDTIME MRX1 [facility] Last Admin: 02/03/24 23:41 Dose: Not Given Allergies Allergies Allergy/AdvReac Type Severity Reaction Status Date / Time No Known Allergies Allergy Unverified 01/28/20 16:07 [No Known Allergies*] Assessment & Plan Assessment & Plan (1) Schizoaffective disorder, bipolar type: Status: Acute Code(s): F25.0 - Schizoaffective disorder, bipolar type Assessment and Plan: 11/01 mildly up - positive mood=- but less irritable than in past visits 11/02 CTP (2) Dementia: Status: Acute Code(s): F03.90 - Unspecified dementia, unspecified severity, without behavioral disturbance, psychotic disturbance, mood disturbance, and anxiety Assessment and Plan: 11/01 ongoing dementia continue with reorientation and distraction prn - (3) Noncompliance: Status: Acute Code(s): Z91.199 - Patient's noncompliance with other medical treatment and regimen due to unspecified reason Assessment and Plan: seems to be taking medication currently - watches nurse crush them and put in ice cream Plan The patient is an elderly male with a past history of schizoaffective disorder, dementia, HIV and other medical problems, chronically mentally ill resident of assisted living facility referred to this facility after he became non compliant with medications with daniella and psychosis. The patient was assessed by crisis and transferring to this facility for psychiatric stabilization. At the moment of the interview the patient was able to contract for safety. Plan 1. Continue with same treatment. 2. Waiting for placement 3. The patient had been referred to [facility] and guardianship was already filed with more Lopez for placement. 4. Continue tappering off Haldol Reason for continued inpatient stay Substantial Risk for: inability to function, rapid decompensation and med/psych decompensation Time Spent With Patient Time: Total time managing care of this patient today __20__ minutes.
[2024-02-04] MEDS: polyethylene glycoL 3350 17 GM POWD.PACK PO (14:30)
[2024-02-04] MEDS: OLANZapine 10 MG TABLET 20 MG PO (19:57)
[2024-02-04] MEDS: Multivitamin TABLET 1 TAB PO (19:57)
[2024-02-04] MEDS: HaloperidoL 5 MG TABLET PO (19:57)
[2024-02-04] MEDS: traZODone HCL 50 MG TABLET PO (19:57)
[2024-02-04] MEDS: Mirtazapine 15 MG TABLET PO (19:57)
[2024-02-04 20:03] VITALS: BP 108/68; PULSE 101; RESP 18; TEMP 36.9; O2SAT 95
[2024-02-05 08:00] VITALS: BP 136/92; PULSE 100; RESP 18; TEMP 36.6; O2SAT 96
[2024-02-05] MEDS: Rilpivirine HCL 25 MG TABLET PO (08:30)
[2024-02-05] MEDS: Divalproex Sodium Sprinkles 125 MG CAP.DR.SPR 250 MG PO ×3 (08:30→20:58)
[2024-02-05] MEDS: OLANZapine 5 MG TABLET PO ×2 (08:30→14:56)
[2024-02-05] MEDS: amLODIPine Besylate 5 MG TABLET PO (08:30)
[2024-02-05] MEDS: Emtricitabin/Tenofovir 200/300 TABLET 1 TAB PO (08:31)
[2024-02-05] MEDS: Thiamine HCL 100 MG TABLET PO (08:31)
[2024-02-05] MEDS: levETIRAcetam 500 MG TABLET PO ×2 (08:31→20:58)
--- NOTE | 2024-02-05 15:52 | HO.PSYCHPN ---
Subjective Subjective Date of Service: 02/05/24 Reason For Visit: F32.9 Subjective Notes: Conditional Voluntary Interim History: The nursing staff reported no changes in his mental status pleasant cooperative. He had a KUB today with no problems since his reports constipation. On interview the patient denies new symptoms. Mental Status Exam Mental Status Exam Patient Appearance: Appropriate Patient Orientation: Person, Place and Situation Level of Consciousness: Awake and Appropriate Patient Behavior: Guarded and Passive Mood Description: Calm Affect Description: Constricted Patient Cognition Impaired: Yes Ability to Follow Directions: Good Speech Pattern: Clear Hallucinations: None Delusions: Not Present Thought Process: Distracted and Slowed Thinking Thought Content: positive for [place] and positive for Poverty of Content Judgement: Fair Diagnostics Vital Signs (24Hr): Vital Signs - 24 hr 02/04/24 20:03 02/05/24 08:00 Temperature 98.5 F 97.9 F Pulse Rate 101 H 100 Respiratory Rate 18 18 Blood Pressure 108/68 136/92 H Pulse Oximetry 95 96 Oxygen Delivery Method Room Air Room Air BMI result Body Mass Index 19.7 Labs 01/31/24 08:54 01/31/24 08:54 Medications Medications Current Medications Acetaminophen (Acetaminophen 325 Mg Tablet) 650 mg PO Q6H PRN PRN Reason: Pain (Scale Score 1-3) Last Admin: 01/31/24 15:36 Dose: 650 mg Al Hydroxide/Mg Hydroxide (Magnesium Hydrox/Alum Hydrox 30 Ml Oral.Susp) 30 ml PO Q6H PRN PRN Reason: Heartburn/Nausea Last Admin: 11/12/23 06:20 Dose: 30 ml Albuterol Sulfate (Albuterol Sulfate 90 Mcg 8 Gm Inhaler) 2 puff INHALE RQ4H PRN PRN Reason: Wheezing Amlodipine Besylate (Amlodipine Besylate 5 Mg Tablet) 5 mg PO DAILY [facility]; Protocol Last Admin: 02/05/24 08:30 Dose: 5 mg Divalproex Sodium (Divalproex Sodium Sprinkles 125 Mg ) 250 mg PO TID [facility] Last Admin: 02/05/24 14:56 Dose: 250 mg Emtricitabine/Tenofovir (Emtricitabin/Tenofovir 200/300 Tablet) 1 tab PO DAILY [facility] Last Admin: 02/05/24 08:31 Dose: 1 tab Haloperidol (Haloperidol 5 Mg Tablet) 5 mg PO BEDTIME [facility] Last Admin: 02/04/24 19:57 Dose: 5 mg Haloperidol Decanoate (Haloperidol Decanoate 50 Mg/Ml Vial) 100 mg IM Q28D [facility] Last Admin: 01/20/24 23:24 Dose: 100 mg Levetiracetam (Levetiracetam 500 Mg Tablet) 500 mg PO BID [facility] Last Admin: 02/05/24 08:31 Dose: 500 mg Magnesium Hydroxide (Milk Of Magnesia 30 Ml Oral.Susp) 30 ml PO DAILY PRN PRN Reason: Constipation Last Admin: 02/03/24 09:34 Dose: 30 ml Mirtazapine (Mirtazapine 15 Mg Tablet) 15 mg PO BEDTIME [facility] Last Admin: 02/04/24 19:57 Dose: 15 mg Multivitamins/Vitamin C (Multivitamin Tablet) 1 tab PO BEDTIME [facility] Last Admin: 02/04/24 19:57 Dose: 1 tab Nicotine Polacrilex (Nicotine Polacrilex 2 Mg Gum) 4 mg BUCCAL Q2H PRN PRN Reason: Nicotine Cravings Olanzapine (Olanzapine 5 Mg Tablet) 5 mg PO BID@0800,1500 [facility] Last Admin: 02/05/24 14:56 Dose: 5 mg Olanzapine (Olanzapine 10 Mg Vial) 5 mg IM BID@0800,1500 PRN PRN Reason: if refuses 0800/1500 PO zyprexa Last Admin: 10/13/23 14:58 Dose: 5 mg Olanzapine (Olanzapine 10 Mg Tablet) 20 mg PO BEDTIME [facility] Last Admin: 02/04/24 19:57 Dose: 20 mg Polyethylene Glycol (Polyethylene Glycol 3350 17 Gm Powd.Pack) 17 gm PO DAILY PRN PRN Reason: Constipation Last Admin: 02/04/24 14:30 Dose: 17 gm Rilpivirine (Rilpivirine Hcl 25 Mg Tablet) 25 mg PO DAILY [facility] Last Admin: 02/05/24 08:30 Dose: 25 mg Thiamine HCl (Thiamine Hcl 100 Mg Tablet) 100 mg PO DAILY [facility] Last Admin: 02/05/24 08:31 Dose: 100 mg Trazodone HCl (Trazodone Hcl 50 Mg Tablet) 50 mg PO BEDTIME MRX1 [facility] Last Admin: 02/04/24 23:22 Dose: Not Given Allergies Allergies Allergy/AdvReac Type Severity Reaction Status Date / Time No Known Allergies Allergy Unverified 01/28/20 16:07 [No Known Allergies*] Assessment & Plan Assessment & Plan (1) Schizoaffective disorder, bipolar type: Status: Acute Code(s): F25.0 - Schizoaffective disorder, bipolar type Assessment and Plan: 11/01 mildly up - positive mood=- but less irritable than in past visits 11/02 CTP (2) Dementia: Status: Acute Code(s): F03.90 - Unspecified dementia, unspecified severity, without behavioral disturbance, psychotic disturbance, mood disturbance, and anxiety Assessment and Plan: 11/01 ongoing dementia continue with reorientation and distraction prn - (3) Noncompliance: Status: Acute Code(s): Z91.199 - Patient's noncompliance with other medical treatment and regimen due to unspecified reason Assessment and Plan: seems to be taking medication currently - watches nurse crush them and put in ice cream Plan The patient is an elderly male with a past history of schizoaffective disorder, dementia, HIV and other medical problems, chronically mentally ill resident of assisted living facility referred to this facility after he became non compliant with medications with daniella and psychosis. The patient was assessed by crisis and transferring to this facility for psychiatric stabilization. At the moment of the interview the patient was able to contract for safety. Plan 1. Continue with same treatment. 2. Waiting for placement 3. The patient had been referred to [facility] and guardianship was already filed with more Lopez for placement. 4. Continue tappering off Haldol Reason for continued inpatient stay Substantial Risk for: inability to function, rapid decompensation and med/psych decompensation Time Spent With Patient Time: Total time managing care of this patient today __20__ minutes.
[2024-02-05] MEDS: Magnesium Citrate 300 ML SOLUTION 296 ML PO (16:56)
--- NOTE | 2024-02-05 16:57 | PC.NURSE ---
Magnesium Citrate given for constipation per Dr Hua at 1700
[2024-02-05 20:00] VITALS: BP 121/69; PULSE 99; RESP 18; TEMP 36.9; O2SAT 93
[2024-02-05] MEDS: traZODone HCL 50 MG TABLET PO (20:57)
[2024-02-05] MEDS: OLANZapine 10 MG TABLET 20 MG PO (20:58)
[2024-02-05] MEDS: Multivitamin TABLET 1 TAB PO (20:58)
[2024-02-05] MEDS: HaloperidoL 5 MG TABLET PO (20:58)
[2024-02-05] MEDS: Mirtazapine 15 MG TABLET PO (20:58)
[2024-02-05] MEDS: polyethylene glycoL 3350 17 GM POWD.PACK PO (21:00)
[2024-02-06 08:00] VITALS: BP 125/70; PULSE 95; RESP 16; TEMP 36.7; O2SAT 94
[2024-02-06] MEDS: Thiamine HCL 100 MG TABLET PO (09:32)
[2024-02-06] MEDS: OLANZapine 5 MG TABLET PO ×2 (09:32→14:39)
[2024-02-06] MEDS: levETIRAcetam 500 MG TABLET PO ×2 (09:32→20:25)
[2024-02-06] MEDS: Rilpivirine HCL 25 MG TABLET PO (09:32)
[2024-02-06] MEDS: Emtricitabin/Tenofovir 200/300 TABLET 1 TAB PO (09:32)
[2024-02-06] MEDS: amLODIPine Besylate 5 MG TABLET PO (09:32)
[2024-02-06] MEDS: Divalproex Sodium Sprinkles 125 MG CAP.DR.SPR 250 MG PO ×3 (09:33→20:25)
[2024-02-06 13:10] VITALS: BMI 19.7
--- NOTE | 2024-02-06 14:37 | P.PNPSI_ITS ---
Subjective Subjective Date of Service: 02/06/24 Reason For Visit: F32.9 Subjective Notes: Conditional Voluntary Interim History: The nursing staff reported the patient had been pleasant cooperative, he was able to do the KUB and he is constipated. On interview the patient denies new symptoms, waiting for placement. Mental Status Exam Mental Status Exam Patient Appearance: Well Grooomed and Appropriate Patient Orientation: Person and Situation Level of Consciousness: Awake and Appropriate Patient Behavior: Guarded and Passive Mood Description: Withdrawn Affect Description: Constricted Patient Cognition Impaired: Yes Ability to Follow Directions: Good Speech Pattern: Clear Hallucinations: None Delusions: Not Present Thought Process: Linear Thought Content: positive for Poverty of Content Judgement: Fair Diagnostics Vital Signs (24Hr): Vital Signs - 24 hr 02/05/24 20:00 02/06/24 08:00 Temperature 98.4 F 98.1 F Pulse Rate 99 95 Respiratory Rate 18 16 Blood Pressure 121/69 125/70 Pulse Oximetry 93 94 Oxygen Delivery Method Room Air Room Air BMI result Body Mass Index 19.7 Labs 01/31/24 08:54 01/31/24 08:54 Imaging Radiology Impressions: ITS Impressions KUB X-Ray 02/05/24 09:07 IMPRESSION: Large volume of stool throughout the colon. Nonobstructive bowel pattern. Electronically signed by: Hector Way MD 02/05/2024 04:17 PM EDT RP Medications Medications Current Medications Acetaminophen (Acetaminophen 325 Mg Tablet) 650 mg PO Q6H PRN PRN Reason: Pain (Scale Score 1-3) Last Admin: 01/31/24 15:36 Dose: 650 mg Al Hydroxide/Mg Hydroxide (Magnesium Hydrox/Alum Hydrox 30 Ml Oral.Susp) 30 ml PO Q6H PRN PRN Reason: Heartburn/Nausea Last Admin: 11/12/23 06:20 Dose: 30 ml Albuterol Sulfate (Albuterol Sulfate 90 Mcg 8 Gm Inhaler) 2 puff INHALE RQ4H PRN PRN Reason: Wheezing Amlodipine Besylate (Amlodipine Besylate 5 Mg Tablet) 5 mg PO DAILY [facility]; Protocol Last Admin: 02/06/24 09:32 Dose: 5 mg Divalproex Sodium (Divalproex Sodium Sprinkles 125 Mg ) 250 mg PO TID [facility] Last Admin: 02/06/24 09:33 Dose: 250 mg Emtricitabine/Tenofovir (Emtricitabin/Tenofovir 200/300 Tablet) 1 tab PO DAILY [facility] Last Admin: 02/06/24 09:32 Dose: 1 tab Haloperidol (Haloperidol 5 Mg Tablet) 5 mg PO BEDTIME [facility] Last Admin: 02/05/24 20:58 Dose: 5 mg Haloperidol Decanoate (Haloperidol Decanoate 50 Mg/Ml Vial) 100 mg IM Q28D [facility] Last Admin: 01/20/24 23:24 Dose: 100 mg Levetiracetam (Levetiracetam 500 Mg Tablet) 500 mg PO BID [facility] Last Admin: 02/06/24 09:32 Dose: 500 mg Magnesium Hydroxide (Milk Of Magnesia 30 Ml Oral.Susp) 30 ml PO DAILY PRN PRN Reason: Constipation Last Admin: 02/03/24 09:34 Dose: 30 ml Mirtazapine (Mirtazapine 15 Mg Tablet) 15 mg PO BEDTIME [facility] Last Admin: 02/05/24 20:58 Dose: 15 mg Multivitamins/Vitamin C (Multivitamin Tablet) 1 tab PO BEDTIME [facility] Last Admin: 02/05/24 20:58 Dose: 1 tab Nicotine Polacrilex (Nicotine Polacrilex 2 Mg Gum) 4 mg BUCCAL Q2H PRN PRN Reason: Nicotine Cravings Olanzapine (Olanzapine 5 Mg Tablet) 5 mg PO BID@0800,1500 [facility] Last Admin: 02/06/24 09:32 Dose: 5 mg Olanzapine (Olanzapine 10 Mg Vial) 5 mg IM BID@0800,1500 PRN PRN Reason: if refuses 0800/1500 PO zyprexa Last Admin: 10/13/23 14:58 Dose: 5 mg Olanzapine (Olanzapine 10 Mg Tablet) 20 mg PO BEDTIME [facility] Last Admin: 02/05/24 20:58 Dose: 20 mg Polyethylene Glycol (Polyethylene Glycol 3350 17 Gm Powd.Pack) 17 gm PO DAILY PRN PRN Reason: Constipation Last Admin: 02/05/24 21:00 Dose: 17 gm Rilpivirine (Rilpivirine Hcl 25 Mg Tablet) 25 mg PO DAILY [facility] Last Admin: 02/06/24 09:32 Dose: 25 mg Thiamine HCl (Thiamine Hcl 100 Mg Tablet) 100 mg PO DAILY [facility] Last Admin: 02/06/24 09:32 Dose: 100 mg Trazodone HCl (Trazodone Hcl 50 Mg Tablet) 50 mg PO BEDTIME MRX1 [facility] Last Admin: 02/05/24 23:39 Dose: Not Given Allergies Allergies Allergy/AdvReac Type Severity Reaction Status Date / Time No Known Allergies Allergy Unverified 01/28/20 16:07 [No Known Allergies*] Assessment & Plan Assessment & Plan (1) Schizoaffective disorder, bipolar type: Status: Acute Code(s): F25.0 - Schizoaffective disorder, bipolar type Assessment and Plan: 11/01 mildly up - positive mood=- but less irritable than in past visits 11/02 CTP (2) Dementia: Status: Acute Code(s): F03.90 - Unspecified dementia, unspecified severity, without behavioral disturbance, psychotic disturbance, mood disturbance, and anxiety Assessment and Plan: 11/01 ongoing dementia continue with reorientation and distraction prn - (3) Noncompliance: Status: Acute Code(s): Z91.199 - Patient's noncompliance with other medical treatment and regimen due to unspecified reason Assessment and Plan: seems to be taking medication currently - watches nurse crush them and put in ice cream Plan The patient is an elderly male with a past history of schizoaffective disorder, dementia, HIV and other medical problems, chronically mentally ill resident of assisted living facility referred to this facility after he became non compliant with medications with daniella and psychosis. The patient was assessed by crisis and transferring to this facility for psychiatric stabilization. At the moment of the interview the patient was able to contract for safety. Plan 1. Continue with same treatment. 2. Waiting for placement 3. The patient had been referred to [facility] and guardianship was already filed with more Lopez for placement. 4. Continue tappering off Haldol Reason for continued inpatient stay Substantial Risk for: inability to function, rapid decompensation and med/psych decompensation Time Spent With Patient Time: Total time managing care of this patient today __20__ minutes.
[2024-02-06 20:00] VITALS: BP 103/66; PULSE 84; RESP 16; TEMP 36.9; O2SAT 94
[2024-02-06] MEDS: Multivitamin TABLET 1 TAB PO (20:24)
[2024-02-06] MEDS: OLANZapine 10 MG TABLET 20 MG PO (20:24)
[2024-02-06] MEDS: HaloperidoL 5 MG TABLET PO (20:25)
[2024-02-06] MEDS: Mirtazapine 15 MG TABLET PO (20:25)
[2024-02-06] MEDS: traZODone HCL 50 MG TABLET PO (20:25)
[2024-02-07 08:00] VITALS: BP 101/59; PULSE 96; RESP 16; TEMP 36.4; O2SAT 92
[2024-02-07] MEDS: OLANZapine 5 MG TABLET PO ×2 (09:49→14:33)
[2024-02-07] MEDS: levETIRAcetam 500 MG TABLET PO ×2 (09:49→21:00)
[2024-02-07] MEDS: Thiamine HCL 100 MG TABLET PO (09:49)
[2024-02-07] MEDS: Divalproex Sodium Sprinkles 125 MG CAP.DR.SPR 250 MG PO ×3 (09:50→21:00)
[2024-02-07] MEDS: Rilpivirine HCL 25 MG TABLET PO (09:50)
[2024-02-07] MEDS: Emtricitabin/Tenofovir 200/300 TABLET 1 TAB PO (09:50)
--- NOTE | 2024-02-07 16:20 | P.PNPSI_ITS ---
Subjective Subjective Date of Service: 02/07/24 Reason For Visit: F32.9 Subjective Notes: Conditional Voluntary Interim History: The nursing staff reported no changes in her mental status compliant with treatment. The staff has reported the patient complained of having flu-like symptoms but refused treatment. On interview the patient reported that he is feeling tired and he is doing fine at this moment. Waiting for placement. Mental Status Exam Mental Status Exam Patient Appearance: Appropriate Patient Orientation: Person and Situation Level of Consciousness: Awake and Appropriate Patient Behavior: Appropriate, Guarded and Passive Mood Description: Withdrawn Affect Description: Constricted Patient Cognition Impaired: Yes Ability to Follow Directions: Good Speech Pattern: Clear Hallucinations: None Delusions: Not Present Thought Process: Distracted Thought Content: positive for [place] and positive for Poverty of Content Judgement: Fair Diagnostics Vital Signs (24Hr): Vital Signs - 24 hr 02/06/24 20:00 02/07/24 08:00 Temperature 98.4 F 97.6 F Pulse Rate 84 96 Respiratory Rate 16 16 Blood Pressure 103/66 101/59 L Pulse Oximetry 94 92 Oxygen Delivery Method Room Air Room Air BMI result Body Mass Index 19.7 Labs 01/31/24 08:54 01/31/24 08:54 Imaging Radiology Impressions: ITS Impressions KUB X-Ray 02/05/24 09:07 IMPRESSION: Large volume of stool throughout the colon. Nonobstructive bowel pattern. Electronically signed by: Hector Way MD 02/05/2024 04:17 PM EDT RP Medications Medications Current Medications Acetaminophen (Acetaminophen 325 Mg Tablet) 650 mg PO Q6H PRN PRN Reason: Pain (Scale Score 1-3) Last Admin: 01/31/24 15:36 Dose: 650 mg Al Hydroxide/Mg Hydroxide (Magnesium Hydrox/Alum Hydrox 30 Ml Oral.Susp) 30 ml PO Q6H PRN PRN Reason: Heartburn/Nausea Last Admin: 11/12/23 06:20 Dose: 30 ml Albuterol Sulfate (Albuterol Sulfate 90 Mcg 8 Gm Inhaler) 2 puff INHALE RQ4H PRN PRN Reason: Wheezing Amlodipine Besylate (Amlodipine Besylate 5 Mg Tablet) 5 mg PO DAILY [facility]; Protocol Last Admin: 02/07/24 10:19 Dose: Not Given Divalproex Sodium (Divalproex Sodium Sprinkles 125 Mg ) 250 mg PO TID [facility] Last Admin: 02/07/24 14:33 Dose: 250 mg Emtricitabine/Tenofovir (Emtricitabin/Tenofovir 200/300 Tablet) 1 tab PO DAILY [facility] Last Admin: 02/07/24 09:50 Dose: 1 tab Haloperidol (Haloperidol 5 Mg Tablet) 5 mg PO BEDTIME [facility] Last Admin: 02/06/24 20:25 Dose: 5 mg Haloperidol Decanoate (Haloperidol Decanoate 50 Mg/Ml Vial) 100 mg IM Q28D [facility] Last Admin: 01/20/24 23:24 Dose: 100 mg Levetiracetam (Levetiracetam 500 Mg Tablet) 500 mg PO BID [facility] Last Admin: 02/07/24 09:49 Dose: 500 mg Magnesium Hydroxide (Milk Of Magnesia 30 Ml Oral.Susp) 30 ml PO DAILY PRN PRN Reason: Constipation Last Admin: 02/03/24 09:34 Dose: 30 ml Mirtazapine (Mirtazapine 15 Mg Tablet) 15 mg PO BEDTIME [facility] Last Admin: 02/06/24 20:25 Dose: 15 mg Multivitamins/Vitamin C (Multivitamin Tablet) 1 tab PO BEDTIME [facility] Last Admin: 02/06/24 20:24 Dose: 1 tab Nicotine Polacrilex (Nicotine Polacrilex 2 Mg Gum) 4 mg BUCCAL Q2H PRN PRN Reason: Nicotine Cravings Olanzapine (Olanzapine 5 Mg Tablet) 5 mg PO BID@0800,1500 [facility] Last Admin: 02/07/24 14:33 Dose: 5 mg Olanzapine (Olanzapine 10 Mg Vial) 5 mg IM BID@0800,1500 PRN PRN Reason: if refuses 0800/1500 PO zyprexa Last Admin: 10/13/23 14:58 Dose: 5 mg Olanzapine (Olanzapine 10 Mg Tablet) 20 mg PO BEDTIME [facility] Last Admin: 02/06/24 20:24 Dose: 20 mg Polyethylene Glycol (Polyethylene Glycol 3350 17 Gm Powd.Pack) 17 gm PO DAILY PRN PRN Reason: Constipation Last Admin: 02/05/24 21:00 Dose: 17 gm Rilpivirine (Rilpivirine Hcl 25 Mg Tablet) 25 mg PO DAILY [facility] Last Admin: 02/07/24 09:50 Dose: 25 mg Thiamine HCl (Thiamine Hcl 100 Mg Tablet) 100 mg PO DAILY [facility] Last Admin: 02/07/24 09:49 Dose: 100 mg Trazodone HCl (Trazodone Hcl 50 Mg Tablet) 50 mg PO BEDTIME MRX1 [facility] Last Admin: 02/07/24 04:47 Dose: Not Given Allergies Allergies Allergy/AdvReac Type Severity Reaction Status Date / Time No Known Allergies Allergy Unverified 01/28/20 16:07 [No Known Allergies*] Assessment & Plan Assessment & Plan (1) Schizoaffective disorder, bipolar type: Status: Acute Code(s): F25.0 - Schizoaffective disorder, bipolar type Assessment and Plan: 11/01 mildly up - positive mood=- but less irritable than in past visits 11/02 CTP (2) Dementia: Status: Acute Code(s): F03.90 - Unspecified dementia, unspecified severity, without behavioral disturbance, psychotic disturbance, mood disturbance, and anxiety Assessment and Plan: 11/01 ongoing dementia continue with reorientation and distraction prn - (3) Noncompliance: Status: Acute Code(s): Z91.199 - Patient's noncompliance with other medical treatment and regimen due to unspecified reason Assessment and Plan: seems to be taking medication currently - watches nurse crush them and put in ice cream Plan The patient is an elderly male with a past history of schizoaffective disorder, dementia, HIV and other medical problems, chronically mentally ill resident of assisted living facility referred to this facility after he became non compliant with medications with daniella and psychosis. The patient was assessed by crisis and transferring to this facility for psychiatric stabilization. At the moment of the interview the patient was able to contract for safety. Plan 1. Continue with same treatment. 2. Waiting for placement 3. The patient had been referred to [facility] and guardianship was already filed with more Lopez for placement. 4. Continue tappering off Haldol Reason for continued inpatient stay Substantial Risk for: inability to function, rapid decompensation and med/psych decompensation Time Spent With Patient Time: Total time managing care of this patient today __20__ minutes.
[2024-02-07 20:00] VITALS: BP 129/84; PULSE 90; RESP 16; TEMP 36.6; O2SAT 93
[2024-02-07] MEDS: traZODone HCL 50 MG TABLET PO ×2 (21:00→22:22)
[2024-02-07] MEDS: OLANZapine 10 MG TABLET 20 MG PO (21:00)
[2024-02-07] MEDS: Mirtazapine 15 MG TABLET PO (21:00)
[2024-02-07] MEDS: Multivitamin TABLET 1 TAB PO (21:00)
[2024-02-07] MEDS: HaloperidoL 5 MG TABLET PO (21:00)
[2024-02-08 08:05] VITALS: BP 115/67; PULSE 93; RESP 18; TEMP 36.2; O2SAT 95
[2024-02-08] MEDS: Rilpivirine HCL 25 MG TABLET PO (08:17)
[2024-02-08] MEDS: amLODIPine Besylate 5 MG TABLET PO (08:17)
[2024-02-08] MEDS: OLANZapine 5 MG TABLET PO ×2 (08:17→15:24)
[2024-02-08] MEDS: Divalproex Sodium Sprinkles 125 MG CAP.DR.SPR 250 MG PO ×3 (08:17→20:49)
[2024-02-08] MEDS: Thiamine HCL 100 MG TABLET PO (08:17)
[2024-02-08] MEDS: levETIRAcetam 500 MG TABLET PO ×2 (08:17→20:49)
[2024-02-08] MEDS: Emtricitabin/Tenofovir 200/300 TABLET 1 TAB PO (08:17)
--- NOTE | 2024-02-08 11:10 | HO.PSYCHPN ---
Subjective Subjective Date of Service: 02/08/24 Reason For Visit: F32.9 Subjective Notes: Conditional Voluntary Interim History: Patient's case reviewed in treatment team chart reviewed patient seen. Patient has been treatment cooperative team has been working on appropriate discharge Medication Compliance: Yes Mental Status Exam Mental Status Exam Patient Appearance: Appropriate Patient Orientation: Person and Situation Level of Consciousness: Awake and Appropriate Patient Behavior: Appropriate, Guarded and Passive Mood Description: Calm and Withdrawn Affect Description: Apathetic and Constricted Patient Cognition Impaired: Yes Ability to Follow Directions: Good Speech Pattern: Clear Hallucinations: None Delusions: Not Present Thought Process: Distracted Thought Content: positive for [place] and positive for Poverty of Content Judgement: Fair Judgement and Insight: Patient appears somewhat a motivational and apathetic Diagnostics Vital Signs (24Hr): Vital Signs - 24 hr 02/07/24 20:00 02/08/24 08:05 Temperature 97.9 F 97.1 F Pulse Rate 90 93 Respiratory Rate 16 18 Blood Pressure 129/84 115/67 Pulse Oximetry 93 95 Oxygen Delivery Method Room Air Room Air BMI result Body Mass Index 19.7 Labs 01/31/24 08:54 01/31/24 08:54 Imaging Radiology Impressions: ITS Impressions KUB X-Ray 02/05/24 09:07 IMPRESSION: Large volume of stool throughout the colon. Nonobstructive bowel pattern. Electronically signed by: Hector Way MD 02/05/2024 04:17 PM EDT RP Medications Medications Current Medications Acetaminophen (Acetaminophen 325 Mg Tablet) 650 mg PO Q6H PRN PRN Reason: Pain (Scale Score 1-3) Last Admin: 01/31/24 15:36 Dose: 650 mg Al Hydroxide/Mg Hydroxide (Magnesium Hydrox/Alum Hydrox 30 Ml Oral.Susp) 30 ml PO Q6H PRN PRN Reason: Heartburn/Nausea Last Admin: 11/12/23 06:20 Dose: 30 ml Albuterol Sulfate (Albuterol Sulfate 90 Mcg 8 Gm Inhaler) 2 puff INHALE RQ4H PRN PRN Reason: Wheezing Amlodipine Besylate (Amlodipine Besylate 5 Mg Tablet) 5 mg PO DAILY [facility]; Protocol Last Admin: 02/08/24 08:17 Dose: 5 mg Divalproex Sodium (Divalproex Sodium Sprinkles 125 Mg ) 250 mg PO TID [facility] Last Admin: 02/08/24 08:17 Dose: 250 mg Emtricitabine/Tenofovir (Emtricitabin/Tenofovir 200/300 Tablet) 1 tab PO DAILY [facility] Last Admin: 02/08/24 08:17 Dose: 1 tab Haloperidol (Haloperidol 5 Mg Tablet) 5 mg PO BEDTIME [facility] Last Admin: 02/07/24 21:00 Dose: 5 mg Haloperidol Decanoate (Haloperidol Decanoate 50 Mg/Ml Vial) 100 mg IM Q28D [facility] Last Admin: 01/20/24 23:24 Dose: 100 mg Levetiracetam (Levetiracetam 500 Mg Tablet) 500 mg PO BID [facility] Last Admin: 02/08/24 08:17 Dose: 500 mg Magnesium Hydroxide (Milk Of Magnesia 30 Ml Oral.Susp) 30 ml PO DAILY PRN PRN Reason: Constipation Last Admin: 02/03/24 09:34 Dose: 30 ml Mirtazapine (Mirtazapine 15 Mg Tablet) 15 mg PO BEDTIME [facility] Last Admin: 02/07/24 21:00 Dose: 15 mg Multivitamins/Vitamin C (Multivitamin Tablet) 1 tab PO BEDTIME [facility] Last Admin: 02/07/24 21:00 Dose: 1 tab Nicotine Polacrilex (Nicotine Polacrilex 2 Mg Gum) 4 mg BUCCAL Q2H PRN PRN Reason: Nicotine Cravings Olanzapine (Olanzapine 5 Mg Tablet) 5 mg PO BID@0800,1500 [facility] Last Admin: 02/08/24 08:17 Dose: 5 mg Olanzapine (Olanzapine 10 Mg Vial) 5 mg IM BID@0800,1500 PRN PRN Reason: if refuses 0800/1500 PO zyprexa Last Admin: 10/13/23 14:58 Dose: 5 mg Olanzapine (Olanzapine 10 Mg Tablet) 20 mg PO BEDTIME [facility] Last Admin: 02/07/24 21:00 Dose: 20 mg Polyethylene Glycol (Polyethylene Glycol 3350 17 Gm Powd.Pack) 17 gm PO DAILY PRN PRN Reason: Constipation Last Admin: 02/05/24 21:00 Dose: 17 gm Rilpivirine (Rilpivirine Hcl 25 Mg Tablet) 25 mg PO DAILY [facility] Last Admin: 02/08/24 08:17 Dose: 25 mg Thiamine HCl (Thiamine Hcl 100 Mg Tablet) 100 mg PO DAILY [facility] Last Admin: 02/08/24 08:17 Dose: 100 mg Trazodone HCl (Trazodone Hcl 50 Mg Tablet) 50 mg PO BEDTIME MRX1 [facility] Last Admin: 02/07/24 22:22 Dose: 50 mg Allergies Allergies Allergy/AdvReac Type Severity Reaction Status Date / Time No Known Allergies Allergy Unverified 01/28/20 16:07 [No Known Allergies*] Assessment & Plan Assessment & Plan (1) Schizoaffective disorder, bipolar type: Status: Acute Code(s): F25.0 - Schizoaffective disorder, bipolar type Assessment and Plan: 11/01 mildly up - positive mood=- but less irritable than in past visits 11/02 CTP (2) Dementia: Status: Acute Code(s): F03.90 - Unspecified dementia, unspecified severity, without behavioral disturbance, psychotic disturbance, mood disturbance, and anxiety Assessment and Plan: 11/01 ongoing dementia continue with reorientation and distraction prn - (3) Noncompliance: Status: Acute Code(s): Z91.199 - Patient's noncompliance with other medical treatment and regimen due to unspecified reason Assessment and Plan: seems to be taking medication currently - watches nurse crush them and put in ice cream Plan The patient is an elderly male with a past history of schizoaffective disorder, dementia, HIV and other medical problems, chronically mentally ill resident of assisted living facility referred to this facility after he became non compliant with medications with daniella and psychosis. The patient was assessed by crisis and transferring to this facility for psychiatric stabilization. At the moment of the interview the patient was able to contract for safety. Plan 1. Continue with same treatment. 2. Waiting for placement 3. The patient had been referred to [facility] and guardianship was already filed with more Lopez for placement. 4. Continue tappering off Haldol 02/08/2024 Continue plan of care discharge planning Reason for continued inpatient stay Substantial Risk for: inability to function, rapid decompensation and med/psych decompensation Time Spent With Patient Time: Total time managing care of this patient today ____ minutes.
[2024-02-08 20:00] VITALS: BP 120/62; PULSE 98; RESP 16; TEMP 37.6; O2SAT 96
[2024-02-08] MEDS: Multivitamin TABLET 1 TAB PO (20:48)
[2024-02-08] MEDS: OLANZapine 10 MG TABLET 20 MG PO (20:49)
[2024-02-08] MEDS: Mirtazapine 15 MG TABLET PO (20:49)
[2024-02-08] MEDS: HaloperidoL 5 MG TABLET PO (20:49)
[2024-02-08] MEDS: traZODone HCL 50 MG TABLET PO ×2 (20:49→21:57)
[2024-02-09 08:05] VITALS: BP 110/72; PULSE 89; RESP 18; TEMP 36.6; O2SAT 94
[2024-02-09] MEDS: Thiamine HCL 100 MG TABLET PO (08:39)
[2024-02-09] MEDS: Rilpivirine HCL 25 MG TABLET PO (08:39)
[2024-02-09] MEDS: Emtricitabin/Tenofovir 200/300 TABLET 1 TAB PO (08:39)
[2024-02-09] MEDS: levETIRAcetam 500 MG TABLET PO ×2 (08:39→20:55)
[2024-02-09] MEDS: OLANZapine 5 MG TABLET PO ×2 (08:39→15:40)
[2024-02-09] MEDS: Divalproex Sodium Sprinkles 125 MG CAP.DR.SPR 250 MG PO ×3 (08:39→20:54)
[2024-02-09] MEDS: amLODIPine Besylate 5 MG TABLET PO (08:39)
[2024-02-09 20:00] VITALS: BP 102/69; PULSE 100; RESP 16; TEMP 36.3; O2SAT 93
[2024-02-09] MEDS: OLANZapine 10 MG TABLET 20 MG PO (20:53)
[2024-02-09] MEDS: Multivitamin TABLET 1 TAB PO (20:54)
[2024-02-09] MEDS: traZODone HCL 50 MG TABLET PO (20:54)
[2024-02-09] MEDS: HaloperidoL 5 MG TABLET PO (20:55)
[2024-02-09] MEDS: Mirtazapine 15 MG TABLET PO (20:55)
--- NOTE | 2024-02-09 22:21 | P.PNPSI_ITS ---
Subjective Subjective Date of Service: 02/09/24 Reason For Visit: F32.9 Subjective Notes: Conditional Voluntary Interim History: Patient seen psychiatric follow-up case reviewed with nursing staff patient seen. Patient withdrawn not overly psychotic or combative accepting medication treatment Mental Status Exam Mental Status Exam Patient Appearance: Appropriate Patient Orientation: Person and Situation Level of Consciousness: Awake and Appropriate Patient Behavior: Appropriate, Guarded and Passive Mood Description: Calm and Withdrawn Affect Description: Apathetic and Constricted Patient Cognition Impaired: Yes Ability to Follow Directions: Good Speech Pattern: Clear Hallucinations: None Delusions: Not Present Thought Process: Distracted Thought Content: positive for [place] and positive for Poverty of Content Judgement: Fair Judgement and Insight: Patient appears somewhat a motivational and apathetic Diagnostics Vital Signs (24Hr): Vital Signs - 24 hr 02/09/24 08:05 Temperature 97.9 F Pulse Rate 89 Respiratory Rate 18 Blood Pressure 110/72 Pulse Oximetry 94 Oxygen Delivery Method Room Air BMI result Body Mass Index 19.7 Labs 01/31/24 08:54 01/31/24 08:54 Imaging Radiology Impressions: ITS Impressions KUB X-Ray 02/05/24 09:07 IMPRESSION: Large volume of stool throughout the colon. Nonobstructive bowel pattern. Electronically signed by: Hector Way MD 02/05/2024 04:17 PM EDT RP Medications Medications Current Medications Acetaminophen (Acetaminophen 325 Mg Tablet) 650 mg PO Q6H PRN PRN Reason: Pain (Scale Score 1-3) Last Admin: 01/31/24 15:36 Dose: 650 mg Al Hydroxide/Mg Hydroxide (Magnesium Hydrox/Alum Hydrox 30 Ml Oral.Susp) 30 ml PO Q6H PRN PRN Reason: Heartburn/Nausea Last Admin: 11/12/23 06:20 Dose: 30 ml Albuterol Sulfate (Albuterol Sulfate 90 Mcg 8 Gm Inhaler) 2 puff INHALE RQ4H PRN PRN Reason: Wheezing Amlodipine Besylate (Amlodipine Besylate 5 Mg Tablet) 5 mg PO DAILY [facility]; Protocol Last Admin: 02/09/24 08:39 Dose: 5 mg Divalproex Sodium (Divalproex Sodium Sprinkles 125 Mg ) 250 mg PO TID [facility] Last Admin: 02/09/24 20:54 Dose: 250 mg Emtricitabine/Tenofovir (Emtricitabin/Tenofovir 200/300 Tablet) 1 tab PO DAILY [facility] Last Admin: 02/09/24 08:39 Dose: 1 tab Haloperidol (Haloperidol 5 Mg Tablet) 5 mg PO BEDTIME [facility] Last Admin: 02/09/24 20:55 Dose: 5 mg Haloperidol Decanoate (Haloperidol Decanoate 50 Mg/Ml Vial) 100 mg IM Q28D [facility] Last Admin: 01/20/24 23:24 Dose: 100 mg Levetiracetam (Levetiracetam 500 Mg Tablet) 500 mg PO BID [facility] Last Admin: 02/09/24 20:55 Dose: 500 mg Magnesium Hydroxide (Milk Of Magnesia 30 Ml Oral.Susp) 30 ml PO DAILY PRN PRN Reason: Constipation Last Admin: 02/03/24 09:34 Dose: 30 ml Mirtazapine (Mirtazapine 15 Mg Tablet) 15 mg PO BEDTIME [facility] Last Admin: 02/09/24 20:55 Dose: 15 mg Multivitamins/Vitamin C (Multivitamin Tablet) 1 tab PO BEDTIME [facility] Last Admin: 02/09/24 20:54 Dose: 1 tab Nicotine Polacrilex (Nicotine Polacrilex 2 Mg Gum) 4 mg BUCCAL Q2H PRN PRN Reason: Nicotine Cravings Olanzapine (Olanzapine 5 Mg Tablet) 5 mg PO BID@0800,1500 [facility] Last Admin: 02/09/24 15:40 Dose: 5 mg Olanzapine (Olanzapine 10 Mg Vial) 5 mg IM BID@0800,1500 PRN PRN Reason: if refuses 0800/1500 PO zyprexa Last Admin: 10/13/23 14:58 Dose: 5 mg Olanzapine (Olanzapine 10 Mg Tablet) 20 mg PO BEDTIME [facility] Last Admin: 02/09/24 20:53 Dose: 20 mg Polyethylene Glycol (Polyethylene Glycol 3350 17 Gm Powd.Pack) 17 gm PO DAILY PRN PRN Reason: Constipation Last Admin: 02/05/24 21:00 Dose: 17 gm Rilpivirine (Rilpivirine Hcl 25 Mg Tablet) 25 mg PO DAILY [facility] Last Admin: 02/09/24 08:39 Dose: 25 mg Thiamine HCl (Thiamine Hcl 100 Mg Tablet) 100 mg PO DAILY [facility] Last Admin: 02/09/24 08:39 Dose: 100 mg Trazodone HCl (Trazodone Hcl 50 Mg Tablet) 50 mg PO BEDTIME MRX1 [facility] Last Admin: 02/09/24 20:54 Dose: 50 mg Allergies Allergies Allergy/AdvReac Type Severity Reaction Status Date / Time No Known Allergies Allergy Unverified 01/28/20 16:07 [No Known Allergies*] Assessment & Plan Assessment & Plan (1) Schizoaffective disorder, bipolar type: Status: Acute Code(s): F25.0 - Schizoaffective disorder, bipolar type Assessment and Plan: 11/01 mildly up - positive mood=- but less irritable than in past visits 11/02 CTP (2) Dementia: Status: Acute Code(s): F03.90 - Unspecified dementia, unspecified severity, without behavioral disturbance, psychotic disturbance, mood disturbance, and anxiety Assessment and Plan: 11/01 ongoing dementia continue with reorientation and distraction prn - (3) Noncompliance: Status: Acute Code(s): Z91.199 - Patient's noncompliance with other medical treatment and regimen due to unspecified reason Assessment and Plan: seems to be taking medication currently - watches nurse crush them and put in ice cream Plan The patient is an elderly male with a past history of schizoaffective disorder, dementia, HIV and other medical problems, chronically mentally ill resident of assisted living facility referred to this facility after he became non compliant with medications with daniella and psychosis. The patient was assessed by crisis and transferring to this facility for psychiatric stabilization. At the moment of the interview the patient was able to contract for safety. Plan 1. Continue with same treatment. 2. Waiting for placement 3. The patient had been referred to [facility] and guardianship was already filed with more Lopez for placement. 4. Continue tappering off Haldol 02/08/2024 Continue plan of care discharge planning 02/09/2024 Continue plan of care no change indicated Reason for continued inpatient stay Substantial Risk for: inability to function and rapid decompensation Time Spent With Patient Time: Total time managing care of this patient today ____ minutes.
[2024-02-09 22:55] LABS: Appearance Urine Clear; Color Urine Yellow; Glucose Urine UA Negative (Negative); Leukocyte Esterase Urine Negative (Negative); Nitrite Urine Negative (Negative); Urine Blood Negative (Negative); Urine Ketones Trace mg/dL (Negative); Urine Protein Trace mg/dL (Neg-Trace)
[2024-02-09 22:57] LABS: Bacteria Urine None Seen (None Seen); Hyaline Casts Urine 0-2 /LPF (0-2); RBC Urine 0-2 /HPF (0-2); Squamous Epithelial Cell Urine 0-2 /HPF (0-2); WBC Urine 0-5 /HPF (0-5)
[2024-02-10 07:57] VITALS: BP 109/80; PULSE 97; RESP 18; TEMP 36.3; O2SAT 96
[2024-02-10 08:18] LABS: Basophils Percent Auto 0.5 % (0-2); Eosinophils Absolute Auto 0.2 X10*3/uL (0.0-0.4); Eosinophils Percent Auto 2.4 % (0-4); Hematocrit 47.2 % (42.0-52.0); Hemoglobin 15.6 g/dl (14.0-18.0); Imm Gran Abs Auto 0.09 X10*3/uL (0.00-0.03); Imm Gran Pct Auto 1.2 % (0.0-0.4); Lymphocytes Absolute Auto 4.6 X10*3/uL (1.2-4.9); Lymphocytes Percent Auto 62.7 % (20-40); MANUAL DIFF FLAG SCAN; Mean Corpuscular HGB Conc 33.1 g/dl (31.0-36.0); Mean Corpuscular Hemoglobin 33.3 pg (27.0-33.0); Mean Corpuscular Volume 100.6 fL (80.0-98.0); Mean Platelet Volume 9.7 fL (9.4-12.4); Monocytes Absolute Auto 0.6 X10*3/uL (0.1-1.2); Monocytes Percent Auto 7.8 % (2-11); Neutrophils Absolute Auto 1.9 x10*3/uL (2.0-8.3); Neutrophils Percent Auto 25.4 % (45-73); Platelet Count 168 X10*3/uL (160-400); Red Blood Count 4.69 X10*6/uL (4.60-5.80); Red Cell Distribution Width 14.2 % (11.0-16.0); SCAN SMEAR FLAG 1; White Blood Count 7.4 X10*3/uL (4.8-10.8)
[2024-02-10 08:32] LABS: Valproate 54.8 mcg/mL (50.0-100.0)
[2024-02-10 08:34] LABS: Alanine Aminotransferase 28 U/L (0-40); Albumin Level 3.2 g/dL (3.5-5.0); Alkaline Phosphatase 75 U/L (39-117); Anion Gap 12 (12-20); Aspartate Amino Transferase 54 U/L (5-37); Bilirubin Total 0.5 mg/dL (0.0-1.0); Blood Urea Nitrogen 18 mg/dL (9-16); Calcium 9.4 mg/dL (8.4-10.2); Carbon Dioxide 26 mmol/L (22-29); Chloride 108 mmol/L (96-108); Creatinine Clr Calc Pharmacy 55.4; Estimated Glomerular Filt Rate > 60; Glucose Fasting 88 mg/dL (60-99); Potassium 4.3 mmol/L (3.3-5.1); Sodium 142 mmol/L (135-145)
[2024-02-10 08:57] VITALS: BP 109/80
[2024-02-10] MEDS: Divalproex Sodium Sprinkles 125 MG CAP.DR.SPR 250 MG PO ×3 (08:57→21:38)
[2024-02-10] MEDS: levETIRAcetam 500 MG TABLET PO ×2 (08:57→21:38)
[2024-02-10] MEDS: amLODIPine Besylate 5 MG TABLET PO (08:57)
[2024-02-10] MEDS: Thiamine HCL 100 MG TABLET PO (08:57)
[2024-02-10] MEDS: Emtricitabin/Tenofovir 200/300 TABLET 1 TAB PO (08:57)
[2024-02-10] MEDS: Rilpivirine HCL 25 MG TABLET PO (08:57)
[2024-02-10] MEDS: OLANZapine 5 MG TABLET PO ×2 (08:57→14:43)
[2024-02-10 10:26] LABS: SLIDE REVIEW VERIFIED
--- NOTE | 2024-02-10 12:41 | HO.PSYCHPN ---
Subjective Subjective Date of Service: 02/10/24 Reason For Visit: F32.9 Subjective Notes: Conditional Voluntary Interim History: The nursing staff reported the patient has no change in his mental status, fully compliant with treatment process on interview the patient denies new symptoms. Mental Status Exam Mental Status Exam Patient Appearance: Appropriate Patient Orientation: Person and Situation Level of Consciousness: Awake and Appropriate Patient Behavior: Guarded and Passive Mood Description: Withdrawn Affect Description: Constricted Patient Cognition Impaired: Yes Ability to Follow Directions: Good Speech Pattern: Clear Hallucinations: None Delusions: Not Present Thought Process: Distracted and Slowed Thinking Thought Content: positive for [place] and positive for Poverty of Content Judgement: Poor Diagnostics Vital Signs (24Hr): Vital Signs - 24 hr 02/09/24 20:00 02/10/24 07:57 02/10/24 08:57 Temperature 97.4 F 97.4 F Pulse Rate 100 97 Respiratory Rate 16 18 Blood Pressure 102/69 109/80 109/80 Pulse Oximetry 93 96 Oxygen Delivery Method Room Air Room Air BMI result Body Mass Index 19.7 Labs 02/10/24 08:00 02/10/24 08:00 Labs: Laboratory Results - last 48 hr 02/09/24 02/10/24 07:17 08:00 WBC 7.4 RBC 4.69 Hgb 15.6 Hct 47.2 MCV 100.6 H MCH 33.3 H MCHC 33.1 RDW 14.2 Plt Count 168 MPV 9.7 Immature Gran % (Auto) 1.2 H Neut % (Auto) 25.4 L Lymph % (Auto) 62.7 H [place] % (Auto) 7.8 Eos % (Auto) 2.4 Baso % (Auto) 0.5 Lymph # (Auto) 4.6 [place] # (Auto) 0.6 Eos # (Auto) 0.2 Baso # (Auto) 0.0 Abs Immat Gran (auto) 0.09 H Absolute Neuts (auto) 1.9 L Absolute Nucleated RBC 0.000 Nucleated RBC % (auto) 0.0 Smear Tech's Comments VERIFIED Sodium 142 Potassium 4.3 Chloride 108 Carbon Dioxide 26 Anion Gap 12 BUN 18 H Creatinine 1.11 Estim Creat Clear Calc 55.4 Estimated GFR > 60 Fasting Glucose 88 Calcium 9.4 Total Bilirubin 0.5 AST 54 H ALT 28 Alkaline Phosphatase 75 Total Protein 9.0 H Albumin 3.2 L Urine Color Yellow Urine Appearance Clear Urine pH 6.0 Ur Specific [place] 1.020 Urine Protein Trace Urine Glucose (UA) Negative Urine Ketones Trace Urine Blood Negative Urine Nitrite Negative Ur Leukocyte Esterase Negative Urine RBC 0-2 Urine WBC 0-5 Ur Squamous Epith Cells 0-2 Urine Bacteria None Seen Hyaline Casts 0-2 Valproic Acid 54.8 Imaging Radiology Impressions: ITS Impressions KUB X-Ray 02/05/24 09:07 IMPRESSION: Large volume of stool throughout the colon. Nonobstructive bowel pattern. Electronically signed by: Hector Way MD 02/05/2024 04:17 PM EDT RP Medications Medications Current Medications Acetaminophen (Acetaminophen 325 Mg Tablet) 650 mg PO Q6H PRN PRN Reason: Pain (Scale Score 1-3) Last Admin: 01/31/24 15:36 Dose: 650 mg Al Hydroxide/Mg Hydroxide (Magnesium Hydrox/Alum Hydrox 30 Ml Oral.Susp) 30 ml PO Q6H PRN PRN Reason: Heartburn/Nausea Last Admin: 11/12/23 06:20 Dose: 30 ml Albuterol Sulfate (Albuterol Sulfate 90 Mcg 8 Gm Inhaler) 2 puff INHALE RQ4H PRN PRN Reason: Wheezing Amlodipine Besylate (Amlodipine Besylate 5 Mg Tablet) 5 mg PO DAILY [facility]; Protocol Last Admin: 02/10/24 08:57 Dose: 5 mg Divalproex Sodium (Divalproex Sodium Sprinkles 125 Mg ) 250 mg PO TID [facility] Last Admin: 02/10/24 08:57 Dose: 250 mg Emtricitabine/Tenofovir (Emtricitabin/Tenofovir 200/300 Tablet) 1 tab PO DAILY [facility] Last Admin: 02/10/24 08:57 Dose: 1 tab Haloperidol (Haloperidol 5 Mg Tablet) 5 mg PO BEDTIME [facility] Last Admin: 02/09/24 20:55 Dose: 5 mg Haloperidol Decanoate (Haloperidol Decanoate 50 Mg/Ml Vial) 100 mg IM Q28D [facility] Last Admin: 01/20/24 23:24 Dose: 100 mg Levetiracetam (Levetiracetam 500 Mg Tablet) 500 mg PO BID [facility] Last Admin: 02/10/24 08:57 Dose: 500 mg Magnesium Hydroxide (Milk Of Magnesia 30 Ml Oral.Susp) 30 ml PO DAILY PRN PRN Reason: Constipation Last Admin: 02/03/24 09:34 Dose: 30 ml Mirtazapine (Mirtazapine 15 Mg Tablet) 15 mg PO BEDTIME [facility] Last Admin: 02/09/24 20:55 Dose: 15 mg Multivitamins/Vitamin C (Multivitamin Tablet) 1 tab PO BEDTIME [facility] Last Admin: 02/09/24 20:54 Dose: 1 tab Nicotine Polacrilex (Nicotine Polacrilex 2 Mg Gum) 4 mg BUCCAL Q2H PRN PRN Reason: Nicotine Cravings Olanzapine (Olanzapine 5 Mg Tablet) 5 mg PO BID@0800,1500 [facility] Last Admin: 02/10/24 08:57 Dose: 5 mg Olanzapine (Olanzapine 10 Mg Vial) 5 mg IM BID@0800,1500 PRN PRN Reason: if refuses 0800/1500 PO zyprexa Last Admin: 10/13/23 14:58 Dose: 5 mg Olanzapine (Olanzapine 10 Mg Tablet) 20 mg PO BEDTIME [facility] Last Admin: 02/09/24 20:53 Dose: 20 mg Polyethylene Glycol (Polyethylene Glycol 3350 17 Gm Powd.Pack) 17 gm PO DAILY PRN PRN Reason: Constipation Last Admin: 02/05/24 21:00 Dose: 17 gm Rilpivirine (Rilpivirine Hcl 25 Mg Tablet) 25 mg PO DAILY [facility] Last Admin: 02/10/24 08:57 Dose: 25 mg Thiamine HCl (Thiamine Hcl 100 Mg Tablet) 100 mg PO DAILY [facility] Last Admin: 02/10/24 08:57 Dose: 100 mg Trazodone HCl (Trazodone Hcl 50 Mg Tablet) 50 mg PO BEDTIME MRX1 [facility] Last Admin: 02/09/24 20:54 Dose: 50 mg Allergies Allergies Allergy/AdvReac Type Severity Reaction Status Date / Time No Known Allergies Allergy Unverified 01/28/20 16:07 [No Known Allergies*] Assessment & Plan Assessment & Plan (1) Schizoaffective disorder, bipolar type: Status: Acute Code(s): F25.0 - Schizoaffective disorder, bipolar type Assessment and Plan: 11/01 mildly up - positive mood=- but less irritable than in past visits 11/02 CTP (2) Dementia: Status: Acute Code(s): F03.90 - Unspecified dementia, unspecified severity, without behavioral disturbance, psychotic disturbance, mood disturbance, and anxiety Assessment and Plan: 11/01 ongoing dementia continue with reorientation and distraction prn - (3) Noncompliance: Status: Acute Code(s): Z91.199 - Patient's noncompliance with other medical treatment and regimen due to unspecified reason Assessment and Plan: seems to be taking medication currently - watches nurse crush them and put in ice cream Plan The patient is an elderly male with a past history of schizoaffective disorder, dementia, HIV and other medical problems, chronically mentally ill resident of assisted living facility referred to this facility after he became non compliant with medications with daniella and psychosis. The patient was assessed by crisis and transferring to this facility for psychiatric stabilization. At the moment of the interview the patient was able to contract for safety. Plan 1. Continue with same treatment. 2. Waiting for placement 3. The patient had been referred to [facility] and guardianship was already filed with more Lopez for placement. 4. Continue tappering off Haldol Reason for continued inpatient stay Substantial Risk for: inability to function, rapid decompensation and med/psych decompensation Time Spent With Patient Time: Total time managing care of this patient today __20__ minutes.
[2024-02-10 20:00] VITALS: BP 109/69; PULSE 86; RESP 18; TEMP 36.2; O2SAT 94
[2024-02-10] MEDS: OLANZapine 10 MG TABLET 20 MG PO (21:37)
[2024-02-10] MEDS: Multivitamin TABLET 1 TAB PO (21:37)
[2024-02-10] MEDS: HaloperidoL 5 MG TABLET PO (21:38)
[2024-02-10] MEDS: Mirtazapine 15 MG TABLET PO (21:38)
[2024-02-10] MEDS: traZODone HCL 50 MG TABLET PO (21:41)
[2024-02-11 08:00] VITALS: BP 106/63; PULSE 99; RESP 18; TEMP 35.9; O2SAT 97
[2024-02-11] MEDS: Rilpivirine HCL 25 MG TABLET PO (09:07)
[2024-02-11] MEDS: OLANZapine 5 MG TABLET PO ×2 (09:08→14:38)
[2024-02-11] MEDS: amLODIPine Besylate 5 MG TABLET PO (09:08)
[2024-02-11] MEDS: Thiamine HCL 100 MG TABLET PO (09:08)
[2024-02-11] MEDS: Emtricitabin/Tenofovir 200/300 TABLET 1 TAB PO (09:08)
[2024-02-11] MEDS: Divalproex Sodium Sprinkles 125 MG CAP.DR.SPR 250 MG PO ×3 (09:08→20:58)
[2024-02-11] MEDS: levETIRAcetam 500 MG TABLET PO ×2 (09:08→20:58)
--- NOTE | 2024-02-11 16:14 | P.PNPSI_ITS ---
Subjective Subjective Date of Service: 02/11/24 Reason For Visit: F32.9 Subjective Notes: Conditional Voluntary Interim History: The nursing staff reported no changes in his mental status. The certified social workers in health care reported the [facility] [facility] had been processed on its only the only deterrent for discharge. On interview the patient denies new symptoms, waiting for placement Mental Status Exam Mental Status Exam Patient Appearance: Well Grooomed and Appropriate Patient Orientation: Person and Situation Level of Consciousness: Awake and Appropriate Patient Behavior: Guarded and Passive Mood Description: Withdrawn Affect Description: Constricted Patient Cognition Impaired: Yes Ability to Follow Directions: Good Speech Pattern: Clear Hallucinations: None Delusions: Not Present Thought Process: Distracted and Slowed Thinking Thought Content: positive for [place] and positive for Poverty of Content Judgement: Fair Diagnostics Vital Signs (24Hr): Vital Signs - 24 hr 02/10/24 20:00 02/11/24 08:00 Temperature 97.2 F 96.7 F L Pulse Rate 86 99 Respiratory Rate 18 18 Blood Pressure 109/69 106/63 Pulse Oximetry 94 97 Oxygen Delivery Method Room Air Room Air BMI result Body Mass Index 19.7 Labs 02/10/24 08:00 02/10/24 08:00 Labs: Laboratory Results - last 48 hr 02/09/24 02/10/24 07:17 08:00 WBC 7.4 RBC 4.69 Hgb 15.6 Hct 47.2 MCV 100.6 H MCH 33.3 H MCHC 33.1 RDW 14.2 Plt Count 168 MPV 9.7 Immature Gran % (Auto) 1.2 H Neut % (Auto) 25.4 L Lymph % (Auto) 62.7 H [place] % (Auto) 7.8 Eos % (Auto) 2.4 Baso % (Auto) 0.5 Lymph # (Auto) 4.6 [place] # (Auto) 0.6 Eos # (Auto) 0.2 Baso # (Auto) 0.0 Abs Immat Gran (auto) 0.09 H Absolute Neuts (auto) 1.9 L Absolute Nucleated RBC 0.000 Nucleated RBC % (auto) 0.0 Smear Tech's Comments VERIFIED Sodium 142 Potassium 4.3 Chloride 108 Carbon Dioxide 26 Anion Gap 12 BUN 18 H Creatinine 1.11 Estim Creat Clear Calc 55.4 Estimated GFR > 60 Fasting Glucose 88 Calcium 9.4 Total Bilirubin 0.5 AST 54 H ALT 28 Alkaline Phosphatase 75 Total Protein 9.0 H Albumin 3.2 L Urine Color Yellow Urine Appearance Clear Urine pH 6.0 Ur Specific [place] 1.020 Urine Protein Trace Urine Glucose (UA) Negative Urine Ketones Trace Urine Blood Negative Urine Nitrite Negative Ur Leukocyte Esterase Negative Urine RBC 0-2 Urine WBC 0-5 Ur Squamous Epith Cells 0-2 Urine Bacteria None Seen Hyaline Casts 0-2 Valproic Acid 54.8 Imaging Radiology Impressions: ITS Impressions KUB X-Ray 02/05/24 09:07 IMPRESSION: Large volume of stool throughout the colon. Nonobstructive bowel pattern. Electronically signed by: Hector Way MD 02/05/2024 04:17 PM EDT RP Medications Medications Current Medications Acetaminophen (Acetaminophen 325 Mg Tablet) 650 mg PO Q6H PRN PRN Reason: Pain (Scale Score 1-3) Last Admin: 01/31/24 15:36 Dose: 650 mg Al Hydroxide/Mg Hydroxide (Magnesium Hydrox/Alum Hydrox 30 Ml Oral.Susp) 30 ml PO Q6H PRN PRN Reason: Heartburn/Nausea Last Admin: 11/12/23 06:20 Dose: 30 ml Albuterol Sulfate (Albuterol Sulfate 90 Mcg 8 Gm Inhaler) 2 puff INHALE RQ4H PRN PRN Reason: Wheezing Amlodipine Besylate (Amlodipine Besylate 5 Mg Tablet) 5 mg PO DAILY [facility]; Protocol Last Admin: 02/11/24 09:08 Dose: 5 mg Divalproex Sodium (Divalproex Sodium Sprinkles 125 Mg ) 250 mg PO TID [facility] Last Admin: 02/11/24 14:38 Dose: 250 mg Emtricitabine/Tenofovir (Emtricitabin/Tenofovir 200/300 Tablet) 1 tab PO DAILY [facility] Last Admin: 02/11/24 09:08 Dose: 1 tab Haloperidol (Haloperidol 5 Mg Tablet) 5 mg PO BEDTIME [facility] Last Admin: 02/10/24 21:38 Dose: 5 mg Haloperidol Decanoate (Haloperidol Decanoate 50 Mg/Ml Vial) 100 mg IM Q28D [facility] Last Admin: 01/20/24 23:24 Dose: 100 mg Levetiracetam (Levetiracetam 500 Mg Tablet) 500 mg PO BID [facility] Last Admin: 02/11/24 09:08 Dose: 500 mg Magnesium Hydroxide (Milk Of Magnesia 30 Ml Oral.Susp) 30 ml PO DAILY PRN PRN Reason: Constipation Last Admin: 02/03/24 09:34 Dose: 30 ml Mirtazapine (Mirtazapine 15 Mg Tablet) 15 mg PO BEDTIME [facility] Last Admin: 02/10/24 21:38 Dose: 15 mg Multivitamins/Vitamin C (Multivitamin Tablet) 1 tab PO BEDTIME [facility] Last Admin: 02/10/24 21:37 Dose: 1 tab Nicotine Polacrilex (Nicotine Polacrilex 2 Mg Gum) 4 mg BUCCAL Q2H PRN PRN Reason: Nicotine Cravings Olanzapine (Olanzapine 5 Mg Tablet) 5 mg PO BID@0800,1500 [facility] Last Admin: 02/11/24 14:38 Dose: 5 mg Olanzapine (Olanzapine 10 Mg Vial) 5 mg IM BID@0800,1500 PRN PRN Reason: if refuses 0800/1500 PO zyprexa Last Admin: 10/13/23 14:58 Dose: 5 mg Olanzapine (Olanzapine 10 Mg Tablet) 20 mg PO BEDTIME [facility] Last Admin: 02/10/24 21:37 Dose: 20 mg Polyethylene Glycol (Polyethylene Glycol 3350 17 Gm Powd.Pack) 17 gm PO DAILY PRN PRN Reason: Constipation Last Admin: 02/05/24 21:00 Dose: 17 gm Rilpivirine (Rilpivirine Hcl 25 Mg Tablet) 25 mg PO DAILY [facility] Last Admin: 02/11/24 09:07 Dose: 25 mg Thiamine HCl (Thiamine Hcl 100 Mg Tablet) 100 mg PO DAILY [facility] Last Admin: 02/11/24 09:08 Dose: 100 mg Trazodone HCl (Trazodone Hcl 50 Mg Tablet) 50 mg PO BEDTIME MRX1 [facility] Last Admin: 02/10/24 21:41 Dose: 50 mg Allergies Allergies Allergy/AdvReac Type Severity Reaction Status Date / Time No Known Allergies Allergy Unverified 01/28/20 16:07 [No Known Allergies*] Assessment & Plan Assessment & Plan (1) Schizoaffective disorder, bipolar type: Status: Acute Code(s): F25.0 - Schizoaffective disorder, bipolar type Assessment and Plan: 11/01 mildly up - positive mood=- but less irritable than in past visits 11/02 CTP (2) Dementia: Status: Acute Code(s): F03.90 - Unspecified dementia, unspecified severity, without behavioral disturbance, psychotic disturbance, mood disturbance, and anxiety Assessment and Plan: 11/01 ongoing dementia continue with reorientation and distraction prn - (3) Noncompliance: Status: Acute Code(s): Z91.199 - Patient's noncompliance with other medical treatment and regimen due to unspecified reason Assessment and Plan: seems to be taking medication currently - watches nurse crush them and put in ice cream Plan The patient is an elderly male with a past history of schizoaffective disorder, dementia, HIV and other medical problems, chronically mentally ill resident of assisted living facility referred to this facility after he became non compliant with medications with daniella and psychosis. The patient was assessed by crisis and transferring to this facility for psychiatric stabilization. At the moment of the interview the patient was able to contract for safety. Plan 1. Continue with same treatment. 2. Waiting for placement 3. The patient had been referred to [facility] and guardianship was already filed with more Lopez for placement. 4. Continue tappering off Haldol Reason for continued inpatient stay Substantial Risk for: inability to function, rapid decompensation and med/psych decompensation Time Spent With Patient Time: Total time managing care of this patient today _20___ minutes.
[2024-02-11 20:00] VITALS: BP 102/65; PULSE 96; RESP 13; TEMP 36.3; O2SAT 92
[2024-02-11] MEDS: HaloperidoL 5 MG TABLET PO (20:58)
[2024-02-11] MEDS: OLANZapine 10 MG TABLET 20 MG PO (20:58)
[2024-02-11] MEDS: Mirtazapine 15 MG TABLET PO (20:58)
[2024-02-11] MEDS: traZODone HCL 50 MG TABLET PO (20:58)
[2024-02-11] MEDS: Multivitamin TABLET 1 TAB PO (20:58)
[2024-02-12 08:00] VITALS: BP 129/91; PULSE 101; RESP 18; O2SAT 93
[2024-02-12] MEDS: Thiamine HCL 100 MG TABLET PO (08:13)
[2024-02-12] MEDS: levETIRAcetam 500 MG TABLET PO ×2 (08:13→19:32)
[2024-02-12] MEDS: amLODIPine Besylate 5 MG TABLET PO (08:13)
[2024-02-12] MEDS: OLANZapine 5 MG TABLET PO ×2 (08:13→14:25)
[2024-02-12] MEDS: Divalproex Sodium Sprinkles 125 MG CAP.DR.SPR 250 MG PO ×3 (08:13→19:32)
[2024-02-12] MEDS: Rilpivirine HCL 25 MG TABLET PO (08:13)
[2024-02-12] MEDS: Emtricitabin/Tenofovir 200/300 TABLET 1 TAB PO (08:13)
--- NOTE | 2024-02-12 13:25 | P.PNPSI_ITS ---
Subjective Subjective Date of Service: 02/12/24 Reason For Visit: F32.9 Subjective Notes: Conditional Voluntary Interim History: The nursing staff reported the patient had been compliant with treatment no changes in his mental status. On interview the patient denies new symptoms waiting for placement. The director social reported that they contact the guardian and they are working on [facility] clearance Mental Status Exam Mental Status Exam Patient Appearance: Appropriate Patient Orientation: Person and Situation Level of Consciousness: Awake and Appropriate Patient Behavior: Appropriate Mood Description: Calm Affect Description: Constricted Patient Cognition Impaired: Yes Ability to Follow Directions: Good Speech Pattern: Clear Hallucinations: None Delusions: Not Present Thought Process: Distracted and Slowed Thinking Thought Content: positive for [place] and positive for Poverty of Content Judgement: Fair Diagnostics Vital Signs (24Hr): Vital Signs - 24 hr 02/11/24 20:00 02/12/24 08:00 Temperature 97.4 F Pulse Rate 96 101 H Respiratory Rate 13 18 Blood Pressure 102/65 129/91 H Pulse Oximetry 92 93 Oxygen Delivery Method Room Air Room Air BMI result Body Mass Index 19.7 Labs 02/10/24 08:00 02/10/24 08:00 Imaging Radiology Impressions: ITS Impressions KUB X-Ray 02/05/24 09:07 IMPRESSION: Large volume of stool throughout the colon. Nonobstructive bowel pattern. Electronically signed by: Hector Way MD 02/05/2024 04:17 PM EDT RP Medications Medications Current Medications Acetaminophen (Acetaminophen 325 Mg Tablet) 650 mg PO Q6H PRN PRN Reason: Pain (Scale Score 1-3) Last Admin: 01/31/24 15:36 Dose: 650 mg Al Hydroxide/Mg Hydroxide (Magnesium Hydrox/Alum Hydrox 30 Ml Oral.Susp) 30 ml PO Q6H PRN PRN Reason: Heartburn/Nausea Last Admin: 11/12/23 06:20 Dose: 30 ml Albuterol Sulfate (Albuterol Sulfate 90 Mcg 8 Gm Inhaler) 2 puff INHALE RQ4H PRN PRN Reason: Wheezing Amlodipine Besylate (Amlodipine Besylate 5 Mg Tablet) 5 mg PO DAILY [facility]; Protocol Last Admin: 02/12/24 08:13 Dose: 5 mg Divalproex Sodium (Divalproex Sodium Sprinkles 125 Mg ) 250 mg PO TID [facility] Last Admin: 02/12/24 08:13 Dose: 250 mg Emtricitabine/Tenofovir (Emtricitabin/Tenofovir 200/300 Tablet) 1 tab PO DAILY [facility] Last Admin: 02/12/24 08:13 Dose: 1 tab Haloperidol (Haloperidol 5 Mg Tablet) 5 mg PO BEDTIME [facility] Last Admin: 02/11/24 20:58 Dose: 5 mg Haloperidol Decanoate (Haloperidol Decanoate 50 Mg/Ml Vial) 100 mg IM Q28D [facility] Last Admin: 01/20/24 23:24 Dose: 100 mg Levetiracetam (Levetiracetam 500 Mg Tablet) 500 mg PO BID [facility] Last Admin: 02/12/24 08:13 Dose: 500 mg Magnesium Hydroxide (Milk Of Magnesia 30 Ml Oral.Susp) 30 ml PO DAILY PRN PRN Reason: Constipation Last Admin: 02/03/24 09:34 Dose: 30 ml Mirtazapine (Mirtazapine 15 Mg Tablet) 15 mg PO BEDTIME [facility] Last Admin: 02/11/24 20:58 Dose: 15 mg Multivitamins/Vitamin C (Multivitamin Tablet) 1 tab PO BEDTIME [facility] Last Admin: 02/11/24 20:58 Dose: 1 tab Nicotine Polacrilex (Nicotine Polacrilex 2 Mg Gum) 4 mg BUCCAL Q2H PRN PRN Reason: Nicotine Cravings Olanzapine (Olanzapine 5 Mg Tablet) 5 mg PO BID@0800,1500 [facility] Last Admin: 02/12/24 08:13 Dose: 5 mg Olanzapine (Olanzapine 10 Mg Vial) 5 mg IM BID@0800,1500 PRN PRN Reason: if refuses 0800/1500 PO zyprexa Last Admin: 10/13/23 14:58 Dose: 5 mg Olanzapine (Olanzapine 10 Mg Tablet) 20 mg PO BEDTIME [facility] Last Admin: 02/11/24 20:58 Dose: 20 mg Polyethylene Glycol (Polyethylene Glycol 3350 17 Gm Powd.Pack) 17 gm PO DAILY PRN PRN Reason: Constipation Last Admin: 02/05/24 21:00 Dose: 17 gm Rilpivirine (Rilpivirine Hcl 25 Mg Tablet) 25 mg PO DAILY [facility] Last Admin: 02/12/24 08:13 Dose: 25 mg Thiamine HCl (Thiamine Hcl 100 Mg Tablet) 100 mg PO DAILY [facility] Last Admin: 02/12/24 08:13 Dose: 100 mg Trazodone HCl (Trazodone Hcl 50 Mg Tablet) 50 mg PO BEDTIME MRX1 [facility] Last Admin: 02/11/24 22:00 Dose: Not Given Allergies Allergies Allergy/AdvReac Type Severity Reaction Status Date / Time No Known Allergies Allergy Unverified 01/28/20 16:07 [No Known Allergies*] Assessment & Plan Assessment & Plan (1) Schizoaffective disorder, bipolar type: Status: Acute Code(s): F25.0 - Schizoaffective disorder, bipolar type Assessment and Plan: 11/01 mildly up - positive mood=- but less irritable than in past visits 11/02 CTP (2) Dementia: Status: Acute Code(s): F03.90 - Unspecified dementia, unspecified severity, without behavioral disturbance, psychotic disturbance, mood disturbance, and anxiety Assessment and Plan: 11/01 ongoing dementia continue with reorientation and distraction prn - (3) Noncompliance: Status: Acute Code(s): Z91.199 - Patient's noncompliance with other medical treatment and regimen due to unspecified reason Assessment and Plan: seems to be taking medication currently - watches nurse crush them and put in ice cream Plan The patient is an elderly male with a past history of schizoaffective disorder, dementia, HIV and other medical problems, chronically mentally ill resident of assisted living facility referred to this facility after he became non compliant with medications with daniella and psychosis. The patient was assessed by crisis and transferring to this facility for psychiatric stabilization. At the moment of the interview the patient was able to contract for safety. Plan 1. Continue with same treatment. 2. Waiting for placement 3. The patient had been referred to [facility] and guardianship was already filed with more Lopez for placement. 4. Continue tappering off Haldol Reason for continued inpatient stay Substantial Risk for: inability to function, rapid decompensation and med/psych decompensation Time Spent With Patient Time: Total time managing care of this patient today __20__ minutes.
--- NOTE | 2024-02-12 15:11 | MHC.CLN ---
F/U DIET=REGULAR. ENSURE TID TO INCREASE KCALS/NUTRITION (1050 KCALS, 60 G PROTEIN). CONTINUES WITH USUALLY GOOD INTAKE, 100% MOST MEALS. ACCEPTS ENSURE. BMI=19.7 BUT IS 82% IBW. UNDERWEIGHT APPEARS TO BE BASELINE. NOT AT HIGH NUTRITIONAL RISK. RD TO FOLLOW WEEKLY POTENTIAL RISK (NUTRITION LEVEL II).
[2024-02-12] MEDS: HaloperidoL 5 MG TABLET PO (19:32)
[2024-02-12] MEDS: Multivitamin TABLET 1 TAB PO (19:32)
[2024-02-12] MEDS: OLANZapine 10 MG TABLET 20 MG PO (19:32)
[2024-02-12] MEDS: traZODone HCL 50 MG TABLET PO (19:32)
[2024-02-12] MEDS: Mirtazapine 15 MG TABLET PO (19:33)
[2024-02-12 19:52] VITALS: BP 84/53; PULSE 82; RESP 17; TEMP 36.8; O2SAT 93
[2024-02-13 08:00] VITALS: BP 118/68; PULSE 88; RESP 16; TEMP 36.5; O2SAT 96
[2024-02-13 08:18] VITALS: BP 118/68
[2024-02-13] MEDS: Divalproex Sodium Sprinkles 125 MG CAP.DR.SPR 250 MG PO ×3 (08:18→20:00)
[2024-02-13] MEDS: amLODIPine Besylate 5 MG TABLET PO (08:18)
[2024-02-13] MEDS: Emtricitabin/Tenofovir 200/300 TABLET 1 TAB PO (08:18)
[2024-02-13] MEDS: Rilpivirine HCL 25 MG TABLET PO (08:18)
[2024-02-13] MEDS: levETIRAcetam 500 MG TABLET PO ×2 (08:18→20:01)
[2024-02-13] MEDS: OLANZapine 5 MG TABLET PO ×2 (08:19→15:30)
[2024-02-13] MEDS: Thiamine HCL 100 MG TABLET PO (08:19)
--- NOTE | 2024-02-13 15:54 | P.PNPSI_ITS ---
Subjective Subjective Date of Service: 02/13/24 Reason For Visit: F32.9 Subjective Notes: Conditional Voluntary Interim History: The nursing staff reported no changes in mental status cooperative pleasant. [facility] machine adjuster leader case trim will come and assess the patient again. On interview the patient denies new symptoms, waiting for placement Mental Status Exam Mental Status Exam Patient Appearance: Appropriate Patient Orientation: Person and Situation Level of Consciousness: Awake and Appropriate Patient Behavior: Guarded and Passive Mood Description: Withdrawn Affect Description: Constricted Patient Cognition Impaired: Yes Ability to Follow Directions: Good Speech Pattern: Clear Hallucinations: None Delusions: Not Present Thought Process: Distracted and Slowed Thinking Thought Content: positive for [place] and positive for Poverty of Content Judgement: Fair Diagnostics Vital Signs (24Hr): Vital Signs - 24 hr 02/12/24 19:52 02/13/24 08:00 02/13/24 08:18 Temperature 98.3 F 97.7 F Pulse Rate 82 88 Respiratory Rate 17 16 Blood Pressure 84/53 L 118/68 118/68 Pulse Oximetry 93 96 Oxygen Delivery Method Room Air Room Air BMI result Body Mass Index 19.7 Labs 02/10/24 08:00 02/10/24 08:00 Imaging Radiology Impressions: ITS Impressions [facility] X-Ray 02/05/24 09:07 IMPRESSION: Large volume of stool throughout the colon. Nonobstructive bowel pattern. Electronically signed by: Hector Way MD 02/05/2024 04:17 PM EDT RP Medications Medications Current Medications Acetaminophen (Acetaminophen 325 Mg Tablet) 650 mg PO Q6H PRN PRN Reason: Pain (Scale Score 1-3) Last Admin: 01/31/24 15:36 Dose: 650 mg Al Hydroxide/Mg Hydroxide (Magnesium Hydrox/Alum Hydrox 30 Ml Oral.Susp) 30 ml PO Q6H PRN PRN Reason: Heartburn/Nausea Last Admin: 11/12/23 06:20 Dose: 30 ml Albuterol Sulfate (Albuterol Sulfate 90 Mcg 8 Gm Inhaler) 2 puff INHALE RQ4H PRN PRN Reason: Wheezing Amlodipine Besylate (Amlodipine Besylate 5 Mg Tablet) 5 mg PO DAILY [facility]; Protocol Last Admin: 02/13/24 08:18 Dose: 5 mg Divalproex Sodium (Divalproex Sodium Sprinkles 125 Mg Cap.Dr.Spr) 250 mg PO TID [facility] Last Admin: 02/13/24 15:30 Dose: 250 mg Emtricitabine/Tenofovir (Emtricitabin/Tenofovir 200/300 Tablet) 1 tab PO DAILY [facility] Last Admin: 02/13/24 08:18 Dose: 1 tab Haloperidol Decanoate (Haloperidol Decanoate 50 Mg/Ml Vial) 100 mg IM Q28D [facility] Last Admin: 01/20/24 23:24 Dose: 100 mg Levetiracetam (Levetiracetam 500 Mg Tablet) 500 mg PO BID [facility] Last Admin: 02/13/24 08:18 Dose: 500 mg Magnesium Hydroxide (Milk Of Magnesia 30 Ml Oral.Susp) 30 ml PO DAILY PRN PRN Reason: Constipation Last Admin: 02/03/24 09:34 Dose: 30 ml Mirtazapine (Mirtazapine 15 Mg Tablet) 15 mg PO BEDTIME [facility] Last Admin: 02/12/24 19:33 Dose: 15 mg Multivitamins/Vitamin C (Multivitamin Tablet) 1 tab PO BEDTIME [facility] Last Admin: 02/12/24 19:32 Dose: 1 tab Nicotine Polacrilex (Nicotine Polacrilex 2 Mg Gum) 4 mg BUCCAL Q2H PRN PRN Reason: Nicotine Cravings Olanzapine (Olanzapine 5 Mg Tablet) 5 mg PO BID@0800,1500 [facility] Last Admin: 02/13/24 15:30 Dose: 5 mg Olanzapine (Olanzapine 10 Mg Vial) 5 mg IM BID@0800,1500 PRN PRN Reason: if refuses 0800/1500 PO zyprexa Last Admin: 10/13/23 14:58 Dose: 5 mg Olanzapine (Olanzapine 10 Mg Tablet) 20 mg PO BEDTIME [facility] Last Admin: 02/12/24 19:32 Dose: 20 mg Polyethylene Glycol (Polyethylene Glycol 3350 17 Gm Powd.Pack) 17 gm PO DAILY PRN PRN Reason: Constipation Last Admin: 02/05/24 21:00 Dose: 17 gm Rilpivirine (Rilpivirine Hcl 25 Mg Tablet) 25 mg PO DAILY [facility] Last Admin: 02/13/24 08:18 Dose: 25 mg Senna (Sennosides 8.6 Mg Tablet) 8.8 mg PO BEDTIME [facility] Thiamine HCl (Thiamine Hcl 100 Mg Tablet) 100 mg PO DAILY [facility] Last Admin: 02/13/24 08:19 Dose: 100 mg Trazodone HCl (Trazodone Hcl 50 Mg Tablet) 50 mg PO BEDTIME MRX1 [facility] Last Admin: 02/12/24 22:38 Dose: Not Given Allergies Allergies Allergy/AdvReac Type Severity Reaction Status Date / Time No Known Allergies Allergy Unverified 01/28/20 16:07 [No Known Allergies*] Assessment & Plan Assessment & Plan (1) Schizoaffective disorder, bipolar type: Status: Acute Code(s): F25.0 - Schizoaffective disorder, bipolar type Assessment and Plan: 11/01 mildly up - positive mood=- but less irritable than in past visits 11/02 CTP (2) Dementia: Status: Acute Code(s): F03.90 - Unspecified dementia, unspecified severity, without behavioral disturbance, psychotic disturbance, mood disturbance, and anxiety Assessment and Plan: 11/01 ongoing dementia continue with reorientation and distraction prn - (3) Noncompliance: Status: Acute Code(s): Z91.199 - Patient's noncompliance with other medical treatment and regimen due to unspecified reason Assessment and Plan: seems to be taking medication currently - watches nurse crush them and put in ice cream Plan The patient is an elderly male with a past history of schizoaffective disorder, dementia, HIV and other medical problems, chronically mentally ill resident of assisted living facility referred to this facility after he became non compliant with medications with daniella and psychosis. The patient was assessed by crisis and transferring to this facility for psychiatric stabilization. At the moment of the interview the patient was able to contract for safety. Plan 1. Continue with same treatment. 2. Waiting for placement 3. The patient had been referred to [facility] and guardianship was already filed with more Lopez for placement. 4. Continue tappering off Haldol Reason for continued inpatient stay Substantial Risk for: inability to function, rapid decompensation and med/psych decompensation Time Spent With Patient Time: Total time managing care of this patient today __20__ minutes.
[2024-02-13 20:00] VITALS: BP 102/62; PULSE 95; RESP 16; TEMP 37.1; O2SAT 94
[2024-02-13] MEDS: Mirtazapine 15 MG TABLET PO (20:00)
[2024-02-13] MEDS: Sennosides 8.6 MG TABLET 8.8 MG PO (20:00)
[2024-02-13] MEDS: traZODone HCL 50 MG TABLET PO (20:00)
[2024-02-13] MEDS: OLANZapine 10 MG TABLET 20 MG PO (20:00)
[2024-02-13] MEDS: Multivitamin TABLET 1 TAB PO (20:01)
[2024-02-14 08:35] VITALS: BP 126/92; PULSE 103; RESP 17; TEMP 36.1; O2SAT 96
[2024-02-14] MEDS: Divalproex Sodium Sprinkles 125 MG CAP.DR.SPR 250 MG PO ×3 (08:37→20:39)
[2024-02-14] MEDS: Rilpivirine HCL 25 MG TABLET PO (08:37)
[2024-02-14] MEDS: OLANZapine 5 MG TABLET PO ×2 (08:37→15:33)
[2024-02-14] MEDS: Emtricitabin/Tenofovir 200/300 TABLET 1 TAB PO (08:37)
[2024-02-14] MEDS: Thiamine HCL 100 MG TABLET PO (08:37)
[2024-02-14] MEDS: levETIRAcetam 500 MG TABLET PO ×2 (08:37→20:39)
[2024-02-14] MEDS: amLODIPine Besylate 5 MG TABLET PO (08:37)
--- NOTE | 2024-02-14 14:53 | HO.PSYCHPN ---
Subjective Subjective Date of Service: 02/14/24 Reason For Visit: F32.9 Subjective Notes: Conditional Voluntary Interim History: The nursing staff reported no changes in his mental status a pleasant cooperative. The aids social worker reported the guardian was contact and we are still waiting for financial clearance. On interview the patient denies new symptoms, waiting for placement. Mental Status Exam Mental Status Exam Patient Appearance: Appropriate Patient Orientation: Person and Situation Level of Consciousness: Awake and Appropriate Patient Behavior: Guarded and Passive Mood Description: Withdrawn Affect Description: Constricted Patient Cognition Impaired: Yes Ability to Follow Directions: Good Speech Pattern: Clear Hallucinations: None Delusions: Not Present Thought Process: Distracted and Slowed Thinking Thought Content: positive for [place] and positive for Poverty of Content Judgement: Fair Diagnostics Vital Signs (24Hr): Vital Signs - 24 hr 02/13/24 20:00 02/14/24 08:35 Temperature 98.7 F 96.9 F Pulse Rate 95 103 H Respiratory Rate 16 17 Blood Pressure 102/62 126/92 H Pulse Oximetry 94 96 Oxygen Delivery Method Room Air Room Air BMI result Body Mass Index 19.7 Labs 02/10/24 08:00 02/10/24 08:00 Imaging Radiology Impressions: ITS Impressions [facility] X-Ray 02/05/24 09:07 IMPRESSION: Large volume of stool throughout the colon. Nonobstructive bowel pattern. Electronically signed by: Hector Way MD 02/05/2024 04:17 PM EDT RP Medications Medications Current Medications Acetaminophen (Acetaminophen 325 Mg Tablet) 650 mg PO Q6H PRN PRN Reason: Pain (Scale Score 1-3) Last Admin: 01/31/24 15:36 Dose: 650 mg Al Hydroxide/Mg Hydroxide (Magnesium Hydrox/Alum Hydrox 30 Ml Oral.Susp) 30 ml PO Q6H PRN PRN Reason: Heartburn/Nausea Last Admin: 11/12/23 06:20 Dose: 30 ml Albuterol Sulfate (Albuterol Sulfate 90 Mcg 8 Gm Inhaler) 2 puff INHALE RQ4H PRN PRN Reason: Wheezing Amlodipine Besylate (Amlodipine Besylate 5 Mg Tablet) 5 mg PO DAILY [facility]; Protocol Last Admin: 02/14/24 08:37 Dose: 5 mg Divalproex Sodium (Divalproex Sodium Sprinkles 125 Mg ) 250 mg PO TID [facility] Last Admin: 02/14/24 08:37 Dose: 250 mg Emtricitabine/Tenofovir (Emtricitabin/Tenofovir 200/300 Tablet) 1 tab PO DAILY [facility] Last Admin: 02/14/24 08:37 Dose: 1 tab Haloperidol Decanoate (Haloperidol Decanoate 50 Mg/Ml Vial) 100 mg IM Q28D [facility] Last Admin: 01/20/24 23:24 Dose: 100 mg Levetiracetam (Levetiracetam 500 Mg Tablet) 500 mg PO BID [facility] Last Admin: 02/14/24 08:37 Dose: 500 mg Magnesium Hydroxide (Milk Of Magnesia 30 Ml Oral.Susp) 30 ml PO DAILY PRN PRN Reason: Constipation Last Admin: 02/03/24 09:34 Dose: 30 ml Mirtazapine (Mirtazapine 15 Mg Tablet) 15 mg PO BEDTIME [facility] Last Admin: 02/13/24 20:00 Dose: 15 mg Multivitamins/Vitamin C (Multivitamin Tablet) 1 tab PO BEDTIME [facility] Last Admin: 02/13/24 20:01 Dose: 1 tab Nicotine Polacrilex (Nicotine Polacrilex 2 Mg Gum) 4 mg BUCCAL Q2H PRN PRN Reason: Nicotine Cravings Olanzapine (Olanzapine 5 Mg Tablet) 5 mg PO BID@0800,1500 [facility] Last Admin: 02/14/24 08:37 Dose: 5 mg Olanzapine (Olanzapine 10 Mg Vial) 5 mg IM BID@0800,1500 PRN PRN Reason: if refuses 0800/1500 PO zyprexa Last Admin: 10/13/23 14:58 Dose: 5 mg Olanzapine (Olanzapine 10 Mg Tablet) 20 mg PO BEDTIME [facility] Last Admin: 02/13/24 20:00 Dose: 20 mg Polyethylene Glycol (Polyethylene Glycol 3350 17 Gm Powd.Pack) 17 gm PO DAILY PRN PRN Reason: Constipation Last Admin: 02/05/24 21:00 Dose: 17 gm Rilpivirine (Rilpivirine Hcl 25 Mg Tablet) 25 mg PO DAILY [facility] Last Admin: 02/14/24 08:37 Dose: 25 mg Senna (Sennosides 8.6 Mg Tablet) 8.6 mg PO BEDTIME [facility] Last Admin: 02/13/24 20:29 Dose: Not Given Thiamine HCl (Thiamine Hcl 100 Mg Tablet) 100 mg PO DAILY [facility] Last Admin: 02/14/24 08:37 Dose: 100 mg Trazodone HCl (Trazodone Hcl 50 Mg Tablet) 50 mg PO BEDTIME MRX1 [facility] Last Admin: 02/14/24 05:16 Dose: Not Given Allergies Allergies Allergy/AdvReac Type Severity Reaction Status Date / Time No Known Allergies Allergy Unverified 01/28/20 16:07 [No Known Allergies*] Assessment & Plan Assessment & Plan (1) Schizoaffective disorder, bipolar type: Status: Acute Code(s): F25.0 - Schizoaffective disorder, bipolar type Assessment and Plan: 11/01 mildly up - positive mood=- but less irritable than in past visits 11/02 CTP (2) Dementia: Status: Acute Code(s): F03.90 - Unspecified dementia, unspecified severity, without behavioral disturbance, psychotic disturbance, mood disturbance, and anxiety Assessment and Plan: 11/01 ongoing dementia continue with reorientation and distraction prn - (3) Noncompliance: Status: Acute Code(s): Z91.199 - Patient's noncompliance with other medical treatment and regimen due to unspecified reason Assessment and Plan: seems to be taking medication currently - watches nurse crush them and put in ice cream Plan The patient is an elderly male with a past history of schizoaffective disorder, dementia, HIV and other medical problems, chronically mentally ill resident of assisted living facility referred to this facility after he became non compliant with medications with daniella and psychosis. The patient was assessed by crisis and transferring to this facility for psychiatric stabilization. At the moment of the interview the patient was able to contract for safety. Plan 1. Continue with same treatment. 2. Waiting for placement 3. The patient had been referred to [facility] and guardianship was already filed with more Lopez for placement. 4. Continue tappering off Haldol Reason for continued inpatient stay Substantial Risk for: inability to function, rapid decompensation and med/psych decompensation Time Spent With Patient Time: Total time managing care of this patient today __20__ minutes.
[2024-02-14 20:00] VITALS: BP 99/60; PULSE 85; RESP 16; TEMP 36.2; O2SAT 94
[2024-02-14] MEDS: traZODone HCL 50 MG TABLET PO (20:39)
[2024-02-14] MEDS: OLANZapine 10 MG TABLET 20 MG PO (20:39)
[2024-02-14] MEDS: Mirtazapine 15 MG TABLET PO (20:39)
[2024-02-14] MEDS: Multivitamin TABLET 1 TAB PO (20:40)
[2024-02-14] MEDS: Sennosides 8.6 MG TABLET PO (20:40)
[2024-02-15 08:00] VITALS: BP 106/64; PULSE 82; RESP 16; TEMP 36.4; O2SAT 96
[2024-02-15] MEDS: Divalproex Sodium Sprinkles 125 MG CAP.DR.SPR 250 MG PO ×3 (08:43→21:39)
[2024-02-15] MEDS: Thiamine HCL 100 MG TABLET PO (08:44)
[2024-02-15] MEDS: Emtricitabin/Tenofovir 200/300 TABLET 1 TAB PO (08:44)
[2024-02-15] MEDS: Rilpivirine HCL 25 MG TABLET PO (08:44)
[2024-02-15] MEDS: OLANZapine 5 MG TABLET PO ×2 (08:44→14:46)
[2024-02-15] MEDS: levETIRAcetam 500 MG TABLET PO ×2 (08:44→21:39)
[2024-02-15] MEDS: amLODIPine Besylate 5 MG TABLET PO (08:44)
--- NOTE | 2024-02-15 14:09 | HO.PSYCHPN ---
Subjective Subjective Date of Service: 02/15/24 Reason For Visit: F32.9 Subjective Notes: Section 7 and Section 8 Healthcare Proxy: No Guardianship: No Medical Problems Affecting Mental Status: No Interim History: 68 yo stable = doing ok on current medications- no questions or concerns- awaiting placement Medication Compliance: Yes Side effects from medications: No Attending Groups: No Review of Systems Acute medical concerns: No Medical Review of Systems: unchanged Mental Status Exam Mental Status Exam Patient Appearance: Appropriate Patient Orientation: Person and Situation Level of Consciousness: Awake and Appropriate Patient Behavior: Guarded and Passive Mood Description: Withdrawn Affect Description: Constricted Patient Cognition Impaired: Yes Ability to Follow Directions: Good Speech Pattern: Clear Hallucinations: None Delusions: Not Present Thought Process: Distracted and Slowed Thinking Thought Content: positive for [place] and positive for Poverty of Content Judgement: Fair Diagnostics Vital Signs (24Hr): Vital Signs - 24 hr 02/14/24 20:00 02/15/24 08:00 Temperature 97.1 F 97.6 F Pulse Rate 85 82 Respiratory Rate 16 16 Blood Pressure 99/60 106/64 Pulse Oximetry 94 96 Oxygen Delivery Method Room Air Room Air BMI result Body Mass Index 19.7 Labs 02/10/24 08:00 02/10/24 08:00 Imaging Radiology Impressions: ITS Impressions KUB X-Ray 02/05/24 09:07 IMPRESSION: Large volume of stool throughout the colon. Nonobstructive bowel pattern. Electronically signed by: Hector Way MD 02/05/2024 04:17 PM EDT RP Medications Medications Current Medications Acetaminophen (Acetaminophen 325 Mg Tablet) 650 mg PO Q6H PRN PRN Reason: Pain (Scale Score 1-3) Last Admin: 01/31/24 15:36 Dose: 650 mg Al Hydroxide/Mg Hydroxide (Magnesium Hydrox/Alum Hydrox 30 Ml Oral.Susp) 30 ml PO Q6H PRN PRN Reason: Heartburn/Nausea Last Admin: 11/12/23 06:20 Dose: 30 ml Albuterol Sulfate (Albuterol Sulfate 90 Mcg 8 Gm Inhaler) 2 puff INHALE RQ4H PRN PRN Reason: Wheezing Amlodipine Besylate (Amlodipine Besylate 5 Mg Tablet) 5 mg PO DAILY [facility]; Protocol Last Admin: 02/15/24 08:44 Dose: 5 mg Divalproex Sodium (Divalproex Sodium Sprinkles 125 Mg ) 250 mg PO TID [facility] Last Admin: 02/15/24 08:43 Dose: 250 mg Emtricitabine/Tenofovir (Emtricitabin/Tenofovir 200/300 Tablet) 1 tab PO DAILY [facility] Last Admin: 02/15/24 08:44 Dose: 1 tab Haloperidol Decanoate (Haloperidol Decanoate 50 Mg/Ml Vial) 100 mg IM Q28D [facility] Last Admin: 01/20/24 23:24 Dose: 100 mg Levetiracetam (Levetiracetam 500 Mg Tablet) 500 mg PO BID [facility] Last Admin: 02/15/24 08:44 Dose: 500 mg Magnesium Hydroxide (Milk Of Magnesia 30 Ml Oral.Susp) 30 ml PO DAILY PRN PRN Reason: Constipation Last Admin: 02/03/24 09:34 Dose: 30 ml Mirtazapine (Mirtazapine 15 Mg Tablet) 15 mg PO BEDTIME [facility] Last Admin: 02/14/24 20:39 Dose: 15 mg Multivitamins/Vitamin C (Multivitamin Tablet) 1 tab PO BEDTIME [facility] Last Admin: 02/14/24 20:40 Dose: 1 tab Nicotine Polacrilex (Nicotine Polacrilex 2 Mg Gum) 4 mg BUCCAL Q2H PRN PRN Reason: Nicotine Cravings Olanzapine (Olanzapine 5 Mg Tablet) 5 mg PO BID@0800,1500 [facility] Last Admin: 02/15/24 08:44 Dose: 5 mg Olanzapine (Olanzapine 10 Mg Vial) 5 mg IM BID@0800,1500 PRN PRN Reason: if refuses 0800/1500 PO zyprexa Last Admin: 10/13/23 14:58 Dose: 5 mg Olanzapine (Olanzapine 10 Mg Tablet) 20 mg PO BEDTIME [facility] Last Admin: 02/14/24 20:39 Dose: 20 mg Polyethylene Glycol (Polyethylene Glycol 3350 17 Gm Powd.Pack) 17 gm PO DAILY PRN PRN Reason: Constipation Last Admin: 02/05/24 21:00 Dose: 17 gm Rilpivirine (Rilpivirine Hcl 25 Mg Tablet) 25 mg PO DAILY [facility] Last Admin: 02/15/24 08:44 Dose: 25 mg Senna (Sennosides 8.6 Mg Tablet) 8.6 mg PO BEDTIME [facility] Last Admin: 02/14/24 20:40 Dose: 8.6 mg Thiamine HCl (Thiamine Hcl 100 Mg Tablet) 100 mg PO DAILY [facility] Last Admin: 02/15/24 08:44 Dose: 100 mg Trazodone HCl (Trazodone Hcl 50 Mg Tablet) 50 mg PO BEDTIME MRX1 [facility] Last Admin: 02/14/24 23:49 Dose: Not Given Allergies Allergies Allergy/AdvReac Type Severity Reaction Status Date / Time No Known Allergies Allergy Unverified 01/28/20 16:07 [No Known Allergies*] Assessment & Plan Assessment & Plan (1) Schizoaffective disorder, bipolar type: Status: Acute Code(s): F25.0 - Schizoaffective disorder, bipolar type Assessment and Plan: 11/01 mildly up - positive mood=- but less irritable than in past visits 11/02 CTP (2) Dementia: Status: Acute Code(s): F03.90 - Unspecified dementia, unspecified severity, without behavioral disturbance, psychotic disturbance, mood disturbance, and anxiety Assessment and Plan: 11/01 ongoing dementia continue with reorientation and distraction prn - (3) Noncompliance: Status: Acute Code(s): Z91.199 - Patient's noncompliance with other medical treatment and regimen due to unspecified reason Assessment and Plan: seems to be taking medication currently - watches nurse crush them and put in ice cream Plan The patient is an elderly male with a past history of schizoaffective disorder, dementia, HIV and other medical problems, chronically mentally ill resident of assisted living facility referred to this facility after he became non compliant with medications with daniella and psychosis. The patient was assessed by crisis and transferring to this facility for psychiatric stabilization. At the moment of the interview the patient was able to contract for safety. Plan 1. Continue with same treatment. 2. Waiting for placement 3. The patient had been referred to [facility] and guardianship was already filed with more Lopez for placement. 4. Continue tappering off Haldol Reason for continued inpatient stay Substantial Risk for: inability to function and rapid decompensation Time Spent With Patient Time: Total time managing care of this patient today ____ minutes.
[2024-02-15 20:00] VITALS: BP 107/63; PULSE 87; RESP 16; TEMP 36.3; O2SAT 96
[2024-02-15] MEDS: Multivitamin TABLET 1 TAB PO (21:38)
[2024-02-15] MEDS: traZODone HCL 50 MG TABLET PO (21:38)
[2024-02-15] MEDS: OLANZapine 10 MG TABLET 20 MG PO (21:38)
[2024-02-15] MEDS: Sennosides 8.6 MG TABLET PO (21:39)
[2024-02-15] MEDS: Mirtazapine 15 MG TABLET PO (21:39)
[2024-02-16 08:00] VITALS: BP 120/66; PULSE 88; RESP 16; TEMP 36.5; O2SAT 97
[2024-02-16] MEDS: Divalproex Sodium Sprinkles 125 MG CAP.DR.SPR 250 MG PO ×3 (08:23→20:26)
[2024-02-16 08:24] VITALS: BP 120/66
[2024-02-16] MEDS: amLODIPine Besylate 5 MG TABLET PO (08:24)
[2024-02-16] MEDS: Rilpivirine HCL 25 MG TABLET PO (08:24)
[2024-02-16] MEDS: OLANZapine 5 MG TABLET PO ×2 (08:24→16:01)
[2024-02-16] MEDS: Thiamine HCL 100 MG TABLET PO (08:24)
[2024-02-16] MEDS: levETIRAcetam 500 MG TABLET PO ×2 (08:25→20:26)
[2024-02-16] MEDS: Emtricitabin/Tenofovir 200/300 TABLET 1 TAB PO (08:25)
--- NOTE | 2024-02-16 14:18 | HO.PSYCHPN ---
Subjective Subjective Date of Service: 02/16/24 Reason For Visit: F32.9 Subjective Notes: Section 8 Healthcare Proxy: No Guardianship: No Medical Problems Affecting Mental Status: No Interim History: 68 yo with dementia and schizoaffective bipolar type- stable on current limited functioning but cooperative- doing own adls and not agitated- awaiting placement- eric sys or s/e Medication Compliance: Yes Side effects from medications: No Attending Groups: Intermittent Review of Systems Acute medical concerns: No Medical Review of Systems: unchanged Mental Status Exam Mental Status Exam Patient Appearance: Appropriate Patient Orientation: Person and Situation Level of Consciousness: Awake and Appropriate Patient Behavior: Guarded and Passive Mood Description: Withdrawn Affect Description: Constricted Patient Cognition Impaired: Yes Ability to Follow Directions: Good Speech Pattern: Clear Hallucinations: None Delusions: Not Present Thought Process: Distracted and Slowed Thinking Thought Content: positive for [place] and positive for Poverty of Content Judgement: Fair Diagnostics Vital Signs (24Hr): Vital Signs - 24 hr 02/15/24 20:00 02/16/24 08:00 02/16/24 08:24 Temperature 97.3 F 97.7 F Pulse Rate 87 88 Respiratory Rate 16 16 Blood Pressure 107/63 120/66 120/66 Pulse Oximetry 96 97 Oxygen Delivery Method Room Air Room Air BMI result Body Mass Index 19.7 Labs 02/10/24 08:00 02/10/24 08:00 Imaging Radiology Impressions: ITS Impressions [facility] X-Ray 02/05/24 09:07 IMPRESSION: Large volume of stool throughout the colon. Nonobstructive bowel pattern. Electronically signed by: Hector Way MD 02/05/2024 04:17 PM EDT Medications Medications Current Medications Acetaminophen (Acetaminophen 325 Mg Tablet) 650 mg PO Q6H PRN PRN Reason: Pain (Scale Score 1-3) Last Admin: 01/31/24 15:36 Dose: 650 mg Al Hydroxide/Mg Hydroxide (Magnesium Hydrox/Alum Hydrox 30 Ml Oral.Susp) 30 ml PO Q6H PRN PRN Reason: Heartburn/Nausea Last Admin: 11/12/23 06:20 Dose: 30 ml Albuterol Sulfate (Albuterol Sulfate 90 Mcg 8 Gm Inhaler) 2 puff INHALE RQ4H PRN PRN Reason: Wheezing Amlodipine Besylate (Amlodipine Besylate 5 Mg Tablet) 5 mg PO DAILY [facility]; Protocol Last Admin: 02/16/24 08:24 Dose: 5 mg Divalproex Sodium (Divalproex Sodium Sprinkles 125 Mg ) 250 mg PO TID [facility] Last Admin: 02/16/24 08:23 Dose: 250 mg Emtricitabine/Tenofovir (Emtricitabin/Tenofovir 200/300 Tablet) 1 tab PO DAILY [facility] Last Admin: 02/16/24 08:25 Dose: 1 tab Haloperidol Decanoate (Haloperidol Decanoate 50 Mg/Ml Vial) 100 mg IM Q28D [facility] Last Admin: 01/20/24 23:24 Dose: 100 mg Levetiracetam (Levetiracetam 500 Mg Tablet) 500 mg PO BID [facility] Last Admin: 02/16/24 08:25 Dose: 500 mg Magnesium Hydroxide (Milk Of Magnesia 30 Ml Oral.Susp) 30 ml PO DAILY PRN PRN Reason: Constipation Last Admin: 02/03/24 09:34 Dose: 30 ml Mirtazapine (Mirtazapine 15 Mg Tablet) 15 mg PO BEDTIME [facility] Last Admin: 02/15/24 21:39 Dose: 15 mg Multivitamins/Vitamin C (Multivitamin Tablet) 1 tab PO BEDTIME [facility] Last Admin: 02/15/24 21:38 Dose: 1 tab Nicotine Polacrilex (Nicotine Polacrilex 2 Mg Gum) 4 mg BUCCAL Q2H PRN PRN Reason: Nicotine Cravings Olanzapine (Olanzapine 5 Mg Tablet) 5 mg PO BID@0800,1500 [facility] Last Admin: 02/16/24 08:24 Dose: 5 mg Olanzapine (Olanzapine 10 Mg Vial) 5 mg IM BID@0800,1500 PRN PRN Reason: if refuses 0800/1500 PO zyprexa Last Admin: 10/13/23 14:58 Dose: 5 mg Olanzapine (Olanzapine 10 Mg Tablet) 20 mg PO BEDTIME [facility] Last Admin: 02/15/24 21:38 Dose: 20 mg Polyethylene Glycol (Polyethylene Glycol 3350 17 Gm Powd.Pack) 17 gm PO DAILY PRN PRN Reason: Constipation Last Admin: 02/05/24 21:00 Dose: 17 gm Rilpivirine (Rilpivirine Hcl 25 Mg Tablet) 25 mg PO DAILY [facility] Last Admin: 02/16/24 08:24 Dose: 25 mg Senna (Sennosides 8.6 Mg Tablet) 8.6 mg PO BEDTIME [facility] Last Admin: 02/15/24 21:39 Dose: 8.6 mg Thiamine HCl (Thiamine Hcl 100 Mg Tablet) 100 mg PO DAILY [facility] Last Admin: 02/16/24 08:24 Dose: 100 mg Trazodone HCl (Trazodone Hcl 50 Mg Tablet) 50 mg PO BEDTIME MRX1 [facility] Last Admin: 02/15/24 22:12 Dose: Not Given Allergies Allergies Allergy/AdvReac Type Severity Reaction Status Date / Time No Known Allergies Allergy Unverified 01/28/20 16:07 [No Known Allergies*] Assessment & Plan Assessment & Plan (1) Schizoaffective disorder, bipolar type: Status: Acute Code(s): F25.0 - Schizoaffective disorder, bipolar type Assessment and Plan: 11/01 mildly up - positive mood=- but less irritable than in past visits 11/02 CTP (2) Dementia: Status: Acute Code(s): F03.90 - Unspecified dementia, unspecified severity, without behavioral disturbance, psychotic disturbance, mood disturbance, and anxiety Assessment and Plan: 11/01 ongoing dementia continue with reorientation and distraction prn - (3) Noncompliance: Status: Acute Code(s): Z91.199 - Patient's noncompliance with other medical treatment and regimen due to unspecified reason Assessment and Plan: seems to be taking medication currently - watches nurse crush them and put in ice cream Plan The patient is an elderly male with a past history of schizoaffective disorder, dementia, HIV and other medical problems, chronically mentally ill resident of assisted living facility referred to this facility after he became non compliant with medications with daniella and psychosis. The patient was assessed by crisis and transferring to this facility for psychiatric stabilization. At the moment of the interview the patient was able to contract for safety. Plan 1. Continue with same treatment. 2. Waiting for placement 3. The patient had been referred to [facility] and guardianship was already filed with more Lopez for placement. 4. Continue tappering off Haldol Reason for continued inpatient stay Substantial Risk for: rapid decompensation Time Spent With Patient Time: Total time managing care of this patient today ____ minutes.
[2024-02-16 20:00] VITALS: BP 112/64; PULSE 83; RESP 16; TEMP 36.2; O2SAT 96
[2024-02-16] MEDS: Multivitamin TABLET 1 TAB PO (20:26)
[2024-02-16] MEDS: OLANZapine 10 MG TABLET 20 MG PO (20:26)
[2024-02-16] MEDS: Mirtazapine 15 MG TABLET PO (20:26)
[2024-02-16] MEDS: Sennosides 8.6 MG TABLET PO (20:26)
[2024-02-16] MEDS: traZODone HCL 50 MG TABLET PO (20:26)
[2024-02-17 08:00] VITALS: BP 118/62; PULSE 112; RESP 16; TEMP 36.6; O2SAT 96
[2024-02-17] MEDS: amLODIPine Besylate 5 MG TABLET PO (09:05)
[2024-02-17] MEDS: Rilpivirine HCL 25 MG TABLET PO (09:06)
[2024-02-17] MEDS: levETIRAcetam 500 MG TABLET PO ×2 (09:06→20:21)
[2024-02-17] MEDS: Emtricitabin/Tenofovir 200/300 TABLET 1 TAB PO (09:06)
[2024-02-17] MEDS: OLANZapine 5 MG TABLET PO ×2 (09:06→15:10)
[2024-02-17] MEDS: Divalproex Sodium Sprinkles 125 MG CAP.DR.SPR 250 MG PO ×3 (09:06→20:21)
[2024-02-17] MEDS: Thiamine HCL 100 MG TABLET PO (09:06)
--- NOTE | 2024-02-17 12:03 | HO.PSYCHPN ---
Subjective Subjective Date of Service: 02/17/24 Reason For Visit: F32.9 Subjective Notes: Conditional Voluntary Interim History: The nursing staff reported no changes in his mental status. The social worker masters reported the guardian called and apparently his [facility] application still in process. At this moment the main barrier for discharge she is financial clearance. On interview the patient denies new symptoms, waiting for placement. Mental Status Exam Mental Status Exam Patient Appearance: Appropriate Patient Orientation: Person and Situation Level of Consciousness: Awake and Appropriate Patient Behavior: Guarded and Passive Mood Description: Withdrawn Affect Description: Constricted Patient Cognition Impaired: Yes Ability to Follow Directions: Good Speech Pattern: Clear Hallucinations: None Delusions: Not Present Thought Process: Distracted and Slowed Thinking Thought Content: positive for [place] and positive for Poverty of Content Judgement: Fair Diagnostics Vital Signs (24Hr): Vital Signs - 24 hr 02/16/24 20:00 02/17/24 08:00 Temperature 97.1 F 97.9 F Pulse Rate 83 112 H Respiratory Rate 16 16 Blood Pressure 112/64 118/62 Pulse Oximetry 96 96 Oxygen Delivery Method Room Air Room Air BMI result Body Mass Index 19.7 Labs 02/10/24 08:00 02/10/24 08:00 Imaging Radiology Impressions: ITS Impressions [facility] X-Ray 02/05/24 09:07 IMPRESSION: Large volume of stool throughout the colon. Nonobstructive bowel pattern. Electronically signed by: Hector Way MD 02/05/2024 04:17 PM EDT RP Medications Medications Current Medications Acetaminophen (Acetaminophen 325 Mg Tablet) 650 mg PO Q6H PRN PRN Reason: Pain (Scale Score 1-3) Last Admin: 01/31/24 15:36 Dose: 650 mg Al Hydroxide/Mg Hydroxide (Magnesium Hydrox/Alum Hydrox 30 Ml Oral.Susp) 30 ml PO Q6H PRN PRN Reason: Heartburn/Nausea Last Admin: 11/12/23 06:20 Dose: 30 ml Albuterol Sulfate (Albuterol Sulfate 90 Mcg 8 Gm Inhaler) 2 puff INHALE RQ4H PRN PRN Reason: Wheezing Amlodipine Besylate (Amlodipine Besylate 5 Mg Tablet) 5 mg PO DAILY [facility]; Protocol Last Admin: 02/17/24 09:05 Dose: 5 mg Divalproex Sodium (Divalproex Sodium Sprinkles 125 Mg ) 250 mg PO TID [facility] Last Admin: 02/17/24 09:06 Dose: 250 mg Emtricitabine/Tenofovir (Emtricitabin/Tenofovir 200/300 Tablet) 1 tab PO DAILY [facility] Last Admin: 02/17/24 09:06 Dose: 1 tab Haloperidol Decanoate (Haloperidol Decanoate 50 Mg/Ml Vial) 100 mg IM Q28D [facility] Last Admin: 01/20/24 23:24 Dose: 100 mg Levetiracetam (Levetiracetam 500 Mg Tablet) 500 mg PO BID [facility] Last Admin: 02/17/24 09:06 Dose: 500 mg Magnesium Hydroxide (Milk Of Magnesia 30 Ml Oral.Susp) 30 ml PO DAILY PRN PRN Reason: Constipation Last Admin: 02/03/24 09:34 Dose: 30 ml Mirtazapine (Mirtazapine 15 Mg Tablet) 15 mg PO BEDTIME [facility] Last Admin: 02/16/24 20:26 Dose: 15 mg Multivitamins/Vitamin C (Multivitamin Tablet) 1 tab PO BEDTIME [facility] Last Admin: 02/16/24 20:26 Dose: 1 tab Nicotine Polacrilex (Nicotine Polacrilex 2 Mg Gum) 4 mg BUCCAL Q2H PRN PRN Reason: Nicotine Cravings Olanzapine (Olanzapine 5 Mg Tablet) 5 mg PO BID@0800,1500 [facility] Last Admin: 02/17/24 09:06 Dose: 5 mg Olanzapine (Olanzapine 10 Mg Vial) 5 mg IM BID@0800,1500 PRN PRN Reason: if refuses 0800/1500 PO zyprexa Last Admin: 10/13/23 14:58 Dose: 5 mg Olanzapine (Olanzapine 10 Mg Tablet) 20 mg PO BEDTIME [facility] Last Admin: 02/16/24 20:26 Dose: 20 mg Polyethylene Glycol (Polyethylene Glycol 3350 17 Gm Powd.Pack) 17 gm PO DAILY PRN PRN Reason: Constipation Last Admin: 02/05/24 21:00 Dose: 17 gm Rilpivirine (Rilpivirine Hcl 25 Mg Tablet) 25 mg PO DAILY [facility] Last Admin: 02/17/24 09:06 Dose: 25 mg Senna (Sennosides 8.6 Mg Tablet) 8.6 mg PO BEDTIME [facility] Last Admin: 02/16/24 20:26 Dose: 8.6 mg Thiamine HCl (Thiamine Hcl 100 Mg Tablet) 100 mg PO DAILY [facility] Last Admin: 02/17/24 09:06 Dose: 100 mg Trazodone HCl (Trazodone Hcl 50 Mg Tablet) 50 mg PO BEDTIME MRX1 [facility] Last Admin: 02/16/24 21:44 Dose: Not Given Allergies Allergies Allergy/AdvReac Type Severity Reaction Status Date / Time No Known Allergies Allergy Unverified 01/28/20 16:07 [No Known Allergies*] Assessment & Plan Assessment & Plan (1) Schizoaffective disorder, bipolar type: Status: Acute Code(s): F25.0 - Schizoaffective disorder, bipolar type Assessment and Plan: 11/01 mildly up - positive mood=- but less irritable than in past visits 11/02 CTP (2) Dementia: Status: Acute Code(s): F03.90 - Unspecified dementia, unspecified severity, without behavioral disturbance, psychotic disturbance, mood disturbance, and anxiety Assessment and Plan: 11/01 ongoing dementia continue with reorientation and distraction prn - (3) Noncompliance: Status: Acute Code(s): Z91.199 - Patient's noncompliance with other medical treatment and regimen due to unspecified reason Assessment and Plan: seems to be taking medication currently - watches nurse crush them and put in ice cream Plan The patient is an elderly male with a past history of schizoaffective disorder, dementia, HIV and other medical problems, chronically mentally ill resident of assisted living facility referred to this facility after he became non compliant with medications with daniella and psychosis. The patient was assessed by crisis and transferring to this facility for psychiatric stabilization. At the moment of the interview the patient was able to contract for safety. Plan 1. Continue with same treatment. 2. Waiting for placement 3. The patient had been referred to [facility] and guardianship was already filed with more Lopez for placement. 4. Continue tappering off Haldol. At this moment he is only receiving Haldol Decanoate once a month. Reason for continued inpatient stay Substantial Risk for: inability to function, rapid decompensation and med/psych decompensation Time Spent With Patient Time: Total time managing care of this patient today __20__ minutes.
[2024-02-17 20:00] VITALS: BP 121/63; PULSE 78; RESP 18; TEMP 36.9; O2SAT 97
[2024-02-17] MEDS: Multivitamin TABLET 1 TAB PO (20:21)
[2024-02-17] MEDS: OLANZapine 10 MG TABLET 20 MG PO (20:21)
[2024-02-17] MEDS: traZODone HCL 50 MG TABLET PO (20:21)
[2024-02-17] MEDS: Mirtazapine 15 MG TABLET PO (20:21)
[2024-02-17] MEDS: Sennosides 8.6 MG TABLET PO (20:22)
[2024-02-17] MEDS: Haloperidol Decanoate 50 MG/ML VIAL 100 MG IM (20:25)
[2024-02-18 08:00] VITALS: BP 118/60; PULSE 64; RESP 18; TEMP 36.3; O2SAT 97
[2024-02-18] MEDS: OLANZapine 5 MG TABLET PO ×2 (08:35→16:07)
[2024-02-18] MEDS: Divalproex Sodium Sprinkles 125 MG CAP.DR.SPR 250 MG PO ×3 (08:36→21:09)
[2024-02-18] MEDS: Emtricitabin/Tenofovir 200/300 TABLET 1 TAB PO (08:36)
[2024-02-18] MEDS: Rilpivirine HCL 25 MG TABLET PO (08:36)
[2024-02-18] MEDS: levETIRAcetam 500 MG TABLET PO ×2 (08:36→21:09)
[2024-02-18] MEDS: amLODIPine Besylate 5 MG TABLET PO (08:36)
[2024-02-18] MEDS: Thiamine HCL 100 MG TABLET PO (08:36)
--- NOTE | 2024-02-18 10:57 | P.PNPSI_ITS ---
Subjective Subjective Date of Service: 02/18/24 Reason For Visit: F32.9 Subjective Notes: Conditional Voluntary Interim History: The nursing staff reported the patient spent most of the time on bed slept 8 hours. On interview the patient denies new symptoms, waiting for placement. Mental Status Exam Mental Status Exam Patient Appearance: Well Grooomed and Appropriate Patient Orientation: Person and Situation Level of Consciousness: Awake and Appropriate Patient Behavior: Guarded and Passive Mood Description: Withdrawn Affect Description: Constricted Patient Cognition Impaired: Yes Ability to Follow Directions: Good Speech Pattern: Clear Hallucinations: None Delusions: Not Present Thought Process: Distracted and Slowed Thinking Thought Content: positive for [place] and positive for Poverty of Content Judgement: Fair Diagnostics Vital Signs (24Hr): Vital Signs - 24 hr 02/17/24 20:00 02/18/24 08:00 Temperature 98.5 F 97.4 F Pulse Rate 78 64 Respiratory Rate 18 18 Blood Pressure 121/63 118/60 Pulse Oximetry 97 97 Oxygen Delivery Method Room Air Room Air BMI result Body Mass Index 19.7 Labs 02/10/24 08:00 02/10/24 08:00 Imaging Radiology Impressions: ITS Impressions KUB X-Ray 02/05/24 09:07 IMPRESSION: Large volume of stool throughout the colon. Nonobstructive bowel pattern. Electronically signed by: Hector Way MD 02/05/2024 04:17 PM EDT RP Medications Medications Current Medications Acetaminophen (Acetaminophen 325 Mg Tablet) 650 mg PO Q6H PRN PRN Reason: Pain (Scale Score 1-3) Last Admin: 01/31/24 15:36 Dose: 650 mg Al Hydroxide/Mg Hydroxide (Magnesium Hydrox/Alum Hydrox 30 Ml Oral.Susp) 30 ml PO Q6H PRN PRN Reason: Heartburn/Nausea Last Admin: 11/12/23 06:20 Dose: 30 ml Albuterol Sulfate (Albuterol Sulfate 90 Mcg 8 Gm Inhaler) 2 puff INHALE RQ4H PRN PRN Reason: Wheezing Amlodipine Besylate (Amlodipine Besylate 5 Mg Tablet) 5 mg PO DAILY [facility]; Protocol Last Admin: 02/18/24 08:36 Dose: 5 mg Divalproex Sodium (Divalproex Sodium Sprinkles 125 Mg ) 250 mg PO TID [facility] Last Admin: 02/18/24 08:36 Dose: 250 mg Emtricitabine/Tenofovir (Emtricitabin/Tenofovir 200/300 Tablet) 1 tab PO DAILY [facility] Last Admin: 02/18/24 08:36 Dose: 1 tab Haloperidol Decanoate (Haloperidol Decanoate 50 Mg/Ml Vial) 100 mg IM Q28D [facility] Last Admin: 02/17/24 20:25 Dose: 100 mg Levetiracetam (Levetiracetam 500 Mg Tablet) 500 mg PO BID [facility] Last Admin: 02/18/24 08:36 Dose: 500 mg Magnesium Hydroxide (Milk Of Magnesia 30 Ml Oral.Susp) 30 ml PO DAILY PRN PRN Reason: Constipation Last Admin: 02/03/24 09:34 Dose: 30 ml Mirtazapine (Mirtazapine 15 Mg Tablet) 15 mg PO BEDTIME [facility] Last Admin: 02/17/24 20:21 Dose: 15 mg Multivitamins/Vitamin C (Multivitamin Tablet) 1 tab PO BEDTIME [facility] Last Admin: 02/17/24 20:21 Dose: 1 tab Nicotine Polacrilex (Nicotine Polacrilex 2 Mg Gum) 4 mg BUCCAL Q2H PRN PRN Reason: Nicotine Cravings Olanzapine (Olanzapine 5 Mg Tablet) 5 mg PO BID@0800,1500 [facility] Last Admin: 02/18/24 08:35 Dose: 5 mg Olanzapine (Olanzapine 10 Mg Vial) 5 mg IM BID@0800,1500 PRN PRN Reason: if refuses 0800/1500 PO zyprexa Last Admin: 10/13/23 14:58 Dose: 5 mg Olanzapine (Olanzapine 10 Mg Tablet) 20 mg PO BEDTIME [facility] Last Admin: 02/17/24 20:21 Dose: 20 mg Polyethylene Glycol (Polyethylene Glycol 3350 17 Gm Powd.Pack) 17 gm PO DAILY PRN PRN Reason: Constipation Last Admin: 02/05/24 21:00 Dose: 17 gm Rilpivirine (Rilpivirine Hcl 25 Mg Tablet) 25 mg PO DAILY [facility] Last Admin: 02/18/24 08:36 Dose: 25 mg Senna (Sennosides 8.6 Mg Tablet) 8.6 mg PO BEDTIME [facility] Last Admin: 02/17/24 20:22 Dose: 8.6 mg Thiamine HCl (Thiamine Hcl 100 Mg Tablet) 100 mg PO DAILY [facility] Last Admin: 02/18/24 08:36 Dose: 100 mg Trazodone HCl (Trazodone Hcl 50 Mg Tablet) 50 mg PO BEDTIME MRX1 [facility] Last Admin: 02/17/24 22:27 Dose: Not Given Allergies Allergies Allergy/AdvReac Type Severity Reaction Status Date / Time No Known Allergies Allergy Unverified 01/28/20 16:07 [No Known Allergies*] Assessment & Plan Assessment & Plan (1) Schizoaffective disorder, bipolar type: Status: Acute Code(s): F25.0 - Schizoaffective disorder, bipolar type Assessment and Plan: 11/01 mildly up - positive mood=- but less irritable than in past visits 11/02 CTP (2) Dementia: Status: Acute Code(s): F03.90 - Unspecified dementia, unspecified severity, without behavioral disturbance, psychotic disturbance, mood disturbance, and anxiety Assessment and Plan: 11/01 ongoing dementia continue with reorientation and distraction prn - (3) Noncompliance: Status: Acute Code(s): Z91.199 - Patient's noncompliance with other medical treatment and regimen due to unspecified reason Assessment and Plan: seems to be taking medication currently - watches nurse crush them and put in ice cream Plan The patient is an elderly male with a past history of schizoaffective disorder, dementia, HIV and other medical problems, chronically mentally ill resident of assisted living facility referred to this facility after he became non compliant with medications with daniella and psychosis. The patient was assessed by crisis and transferring to this facility for psychiatric stabilization. At the moment of the interview the patient was able to contract for safety. Plan 1. Continue with same treatment. 2. Waiting for placement 3. The patient had been referred to [facility] and guardianship was already filed with more Lopez for placement. 4. Continue tappering off Haldol. At this moment he is only receiving Haldol Decanoate once a month. Reason for continued inpatient stay Substantial Risk for: inability to function, rapid decompensation and med/psych decompensation Time Spent With Patient Time: Total time managing care of this patient today __20__ minutes.
[2024-02-18 20:00] VITALS: BP 116/62; PULSE 88; RESP 16; TEMP 37; O2SAT 94
[2024-02-18] MEDS: Multivitamin TABLET 1 TAB PO (21:08)
[2024-02-18] MEDS: Mirtazapine 15 MG TABLET PO (21:09)
[2024-02-18] MEDS: Sennosides 8.6 MG TABLET PO (21:10)
[2024-02-18] MEDS: traZODone HCL 50 MG TABLET PO ×2 (21:10→21:16)
[2024-02-18] MEDS: OLANZapine 10 MG TABLET 20 MG PO (21:10)
[2024-02-19 07:51] VITALS: BP 120/77; PULSE 117; RESP 18; TEMP 36; O2SAT 96
[2024-02-19] MEDS: Emtricitabin/Tenofovir 200/300 TABLET 1 TAB PO (08:37)
[2024-02-19] MEDS: levETIRAcetam 500 MG TABLET PO ×2 (08:37→20:37)
[2024-02-19] MEDS: Divalproex Sodium Sprinkles 125 MG CAP.DR.SPR 250 MG PO ×3 (08:37→20:37)
[2024-02-19] MEDS: amLODIPine Besylate 5 MG TABLET PO (08:38)
[2024-02-19] MEDS: OLANZapine 5 MG TABLET PO ×2 (08:38→15:29)
[2024-02-19] MEDS: Thiamine HCL 100 MG TABLET PO (08:38)
[2024-02-19] MEDS: Rilpivirine HCL 25 MG TABLET PO (08:38)
--- NOTE | 2024-02-19 15:03 | HO.PSYCHPN ---
Subjective Subjective Date of Service: 02/19/24 Reason For Visit: F32.9 Subjective Notes: Conditional Voluntary Interim History: The nursing staff reported no changes in his mental status fully compliant with treatment. On interview the patient denies new symptoms, waiting for placement. Mental Status Exam Mental Status Exam Patient Appearance: Appropriate Patient Orientation: Person and Situation Level of Consciousness: Awake and Appropriate Patient Behavior: Guarded and Passive Mood Description: Withdrawn Affect Description: Constricted Patient Cognition Impaired: Yes Ability to Follow Directions: Good Speech Pattern: Clear Hallucinations: None Delusions: Not Present Thought Process: Distracted and Linear Thought Content: positive for [place] and positive for Poverty of Content Judgement: Fair Diagnostics Vital Signs (24Hr): Vital Signs - 24 hr 02/18/24 20:00 02/19/24 07:51 Temperature 98.6 F 96.8 F Pulse Rate 88 117 H Respiratory Rate 16 18 Blood Pressure 116/62 120/77 Pulse Oximetry 94 96 Oxygen Delivery Method Room Air Room Air BMI result Body Mass Index 19.7 Labs 02/10/24 08:00 02/10/24 08:00 Imaging Radiology Impressions: ITS Impressions KUB X-Ray 02/05/24 09:07 IMPRESSION: Large volume of stool throughout the colon. Nonobstructive bowel pattern. Electronically signed by: Hector Way MD 02/05/2024 04:17 PM EDT RP Medications Medications Current Medications Acetaminophen (Acetaminophen 325 Mg Tablet) 650 mg PO Q6H PRN PRN Reason: Pain (Scale Score 1-3) Last Admin: 01/31/24 15:36 Dose: 650 mg Al Hydroxide/Mg Hydroxide (Magnesium Hydrox/Alum Hydrox 30 Ml Oral.Susp) 30 ml PO Q6H PRN PRN Reason: Heartburn/Nausea Last Admin: 11/12/23 06:20 Dose: 30 ml Albuterol Sulfate (Albuterol Sulfate 90 Mcg 8 Gm Inhaler) 2 puff INHALE RQ4H PRN PRN Reason: Wheezing Amlodipine Besylate (Amlodipine Besylate 5 Mg Tablet) 5 mg PO DAILY [facility]; Protocol Last Admin: 02/19/24 08:38 Dose: 5 mg Divalproex Sodium (Divalproex Sodium Sprinkles 125 Mg ) 250 mg PO TID [facility] Last Admin: 02/19/24 08:37 Dose: 250 mg Emtricitabine/Tenofovir (Emtricitabin/Tenofovir 200/300 Tablet) 1 tab PO DAILY [facility] Last Admin: 02/19/24 08:37 Dose: 1 tab Haloperidol Decanoate (Haloperidol Decanoate 50 Mg/Ml Vial) 100 mg IM Q28D [facility] Last Admin: 02/17/24 20:25 Dose: 100 mg Levetiracetam (Levetiracetam 500 Mg Tablet) 500 mg PO BID [facility] Last Admin: 02/19/24 08:37 Dose: 500 mg Magnesium Hydroxide (Milk Of Magnesia 30 Ml Oral.Susp) 30 ml PO DAILY PRN PRN Reason: Constipation Last Admin: 02/03/24 09:34 Dose: 30 ml Mirtazapine (Mirtazapine 15 Mg Tablet) 15 mg PO BEDTIME [facility] Last Admin: 02/18/24 21:09 Dose: 15 mg Multivitamins/Vitamin C (Multivitamin Tablet) 1 tab PO BEDTIME [facility] Last Admin: 02/18/24 21:08 Dose: 1 tab Nicotine Polacrilex (Nicotine Polacrilex 2 Mg Gum) 4 mg BUCCAL Q2H PRN PRN Reason: Nicotine Cravings Olanzapine (Olanzapine 5 Mg Tablet) 5 mg PO BID@0800,1500 [facility] Last Admin: 02/19/24 08:38 Dose: 5 mg Olanzapine (Olanzapine 10 Mg Vial) 5 mg IM BID@0800,1500 PRN PRN Reason: if refuses 0800/1500 PO zyprexa Last Admin: 10/13/23 14:58 Dose: 5 mg Olanzapine (Olanzapine 10 Mg Tablet) 20 mg PO BEDTIME [facility] Last Admin: 02/18/24 21:10 Dose: 20 mg Polyethylene Glycol (Polyethylene Glycol 3350 17 Gm Powd.Pack) 17 gm PO DAILY PRN PRN Reason: Constipation Last Admin: 02/05/24 21:00 Dose: 17 gm Rilpivirine (Rilpivirine Hcl 25 Mg Tablet) 25 mg PO DAILY [facility] Last Admin: 02/19/24 08:38 Dose: 25 mg Senna (Sennosides 8.6 Mg Tablet) 8.6 mg PO BEDTIME [facility] Last Admin: 02/18/24 21:10 Dose: 8.6 mg Thiamine HCl (Thiamine Hcl 100 Mg Tablet) 100 mg PO DAILY [facility] Last Admin: 02/19/24 08:38 Dose: 100 mg Trazodone HCl (Trazodone Hcl 50 Mg Tablet) 50 mg PO BEDTIME MRX1 [facility] Last Admin: 02/18/24 21:16 Dose: 50 mg Allergies Allergies Allergy/AdvReac Type Severity Reaction Status Date / Time No Known Allergies Allergy Unverified 01/28/20 16:07 [No Known Allergies*] Assessment & Plan Assessment & Plan (1) Schizoaffective disorder, bipolar type: Status: Acute Code(s): F25.0 - Schizoaffective disorder, bipolar type Assessment and Plan: 11/01 mildly up - positive mood=- but less irritable than in past visits 11/02 CTP (2) Dementia: Status: Acute Code(s): F03.90 - Unspecified dementia, unspecified severity, without behavioral disturbance, psychotic disturbance, mood disturbance, and anxiety Assessment and Plan: 11/01 ongoing dementia continue with reorientation and distraction prn - (3) Noncompliance: Status: Acute Code(s): Z91.199 - Patient's noncompliance with other medical treatment and regimen due to unspecified reason Assessment and Plan: seems to be taking medication currently - watches nurse crush them and put in ice cream Plan The patient is an elderly male with a past history of schizoaffective disorder, dementia, HIV and other medical problems, chronically mentally ill resident of assisted living facility referred to this facility after he became non compliant with medications with daniella and psychosis. The patient was assessed by crisis and transferring to this facility for psychiatric stabilization. At the moment of the interview the patient was able to contract for safety. Plan 1. Continue with same treatment. 2. Waiting for placement 3. The patient had been referred to [facility] and guardianship was already filed with more Lopez for placement. 4. Continue tappering off Haldol. At this moment he is only receiving Haldol Decanoate once a month. Reason for continued inpatient stay Substantial Risk for: inability to function, rapid decompensation and med/psych decompensation Time Spent With Patient Time: Total time managing care of this patient today __20__ minutes.
[2024-02-19 20:00] VITALS: BP 114/74; PULSE 92; RESP 18; TEMP 36.8; O2SAT 92
[2024-02-19] MEDS: Mirtazapine 15 MG TABLET PO (20:37)
[2024-02-19] MEDS: OLANZapine 10 MG TABLET 20 MG PO (20:38)
[2024-02-19] MEDS: Sennosides 8.6 MG TABLET PO (20:38)
[2024-02-19] MEDS: traZODone HCL 50 MG TABLET PO (20:38)
[2024-02-20 07:00] VITALS: BMI 19.6
[2024-02-20 08:00] VITALS: BP 122/78; PULSE 97; RESP 18; TEMP 36; O2SAT 95
[2024-02-20 08:59] VITALS: BP 122/78
[2024-02-20] MEDS: amLODIPine Besylate 5 MG TABLET PO (08:59)
[2024-02-20] MEDS: Divalproex Sodium Sprinkles 125 MG CAP.DR.SPR 250 MG PO ×3 (08:59→19:55)
[2024-02-20] MEDS: Emtricitabin/Tenofovir 200/300 TABLET 1 TAB PO (09:00)
[2024-02-20] MEDS: levETIRAcetam 500 MG TABLET PO ×2 (09:00→19:54)
[2024-02-20] MEDS: OLANZapine 5 MG TABLET PO ×2 (09:00→15:27)
[2024-02-20] MEDS: Rilpivirine HCL 25 MG TABLET PO (09:00)
[2024-02-20] MEDS: Thiamine HCL 100 MG TABLET PO (09:00)
--- NOTE | 2024-02-20 12:14 | HO.PSYCHPN ---
Subjective Subjective Date of Service: 02/20/24 Reason For Visit: F32.9 Subjective Notes: Conditional Voluntary Interim History: The nursing staff reported the patient had been compliant with treatment, no changes in mental status. On interview the patient denies new symptoms, waiting for placement. Mental Status Exam Mental Status Exam Patient Appearance: Well Grooomed and Appropriate Patient Orientation: Person and Situation Level of Consciousness: Awake and Appropriate Patient Behavior: Passive Mood Description: Calm Affect Description: Constricted Patient Cognition Impaired: Yes Ability to Follow Directions: Good Speech Pattern: Clear Hallucinations: None Thought Process: Distracted and Slowed Thinking Thought Content: positive for [place] and positive for Poverty of Content Judgement: Fair Diagnostics Vital Signs (24Hr): Vital Signs - 24 hr 02/19/24 20:00 02/20/24 08:00 02/20/24 08:59 Temperature 98.3 F 96.8 F Pulse Rate 92 97 Respiratory Rate 18 18 Blood Pressure 114/74 122/78 122/78 Pulse Oximetry 92 95 Oxygen Delivery Method Room Air Room Air BMI result Body Mass Index 19.7 Labs 02/10/24 08:00 02/10/24 08:00 Imaging Radiology Impressions: ITS Impressions KUB X-Ray 02/05/24 09:07 IMPRESSION: Large volume of stool throughout the colon. Nonobstructive bowel pattern. Electronically signed by: Hector Way MD 02/05/2024 04:17 PM EDT RP Medications Medications Current Medications Acetaminophen (Acetaminophen 325 Mg Tablet) 650 mg PO Q6H PRN PRN Reason: Pain (Scale Score 1-3) Last Admin: 01/31/24 15:36 Dose: 650 mg Al Hydroxide/Mg Hydroxide (Magnesium Hydrox/Alum Hydrox 30 Ml Oral.Susp) 30 ml PO Q6H PRN PRN Reason: Heartburn/Nausea Last Admin: 11/12/23 06:20 Dose: 30 ml Albuterol Sulfate (Albuterol Sulfate 90 Mcg 8 Gm Inhaler) 2 puff INHALE RQ4H PRN PRN Reason: Wheezing Amlodipine Besylate (Amlodipine Besylate 5 Mg Tablet) 5 mg PO DAILY [facility]; Protocol Last Admin: 02/20/24 08:59 Dose: 5 mg Divalproex Sodium (Divalproex Sodium Sprinkles 125 Mg ) 250 mg PO TID [facility] Last Admin: 02/20/24 08:59 Dose: 250 mg Emtricitabine/Tenofovir (Emtricitabin/Tenofovir 200/300 Tablet) 1 tab PO DAILY [facility] Last Admin: 02/20/24 09:00 Dose: 1 tab Haloperidol Decanoate (Haloperidol Decanoate 50 Mg/Ml Vial) 100 mg IM Q28D [facility] Last Admin: 02/17/24 20:25 Dose: 100 mg Levetiracetam (Levetiracetam 500 Mg Tablet) 500 mg PO BID [facility] Last Admin: 02/20/24 09:00 Dose: 500 mg Magnesium Hydroxide (Milk Of Magnesia 30 Ml Oral.Susp) 30 ml PO DAILY PRN PRN Reason: Constipation Last Admin: 02/03/24 09:34 Dose: 30 ml Mirtazapine (Mirtazapine 15 Mg Tablet) 15 mg PO BEDTIME [facility] Last Admin: 02/19/24 20:37 Dose: 15 mg Multivitamins/Vitamin C (Multivitamin Tablet) 1 tab PO BEDTIME [facility] Last Admin: 02/19/24 20:40 Dose: Not Given Nicotine Polacrilex (Nicotine Polacrilex 2 Mg Gum) 4 mg BUCCAL Q2H PRN PRN Reason: Nicotine Cravings Olanzapine (Olanzapine 5 Mg Tablet) 5 mg PO BID@0800,1500 [facility] Last Admin: 02/20/24 09:00 Dose: 5 mg Olanzapine (Olanzapine 10 Mg Vial) 5 mg IM BID@0800,1500 PRN PRN Reason: if refuses 0800/1500 PO zyprexa Last Admin: 10/13/23 14:58 Dose: 5 mg Olanzapine (Olanzapine 10 Mg Tablet) 20 mg PO BEDTIME [facility] Last Admin: 02/19/24 20:38 Dose: 20 mg Polyethylene Glycol (Polyethylene Glycol 3350 17 Gm Powd.Pack) 17 gm PO DAILY PRN PRN Reason: Constipation Last Admin: 02/05/24 21:00 Dose: 17 gm Rilpivirine (Rilpivirine Hcl 25 Mg Tablet) 25 mg PO DAILY [facility] Last Admin: 02/20/24 09:00 Dose: 25 mg Senna (Sennosides 8.6 Mg Tablet) 8.6 mg PO BEDTIME [facility] Last Admin: 02/19/24 20:38 Dose: 8.6 mg Thiamine HCl (Thiamine Hcl 100 Mg Tablet) 100 mg PO DAILY [facility] Last Admin: 02/20/24 09:00 Dose: 100 mg Trazodone HCl (Trazodone Hcl 50 Mg Tablet) 50 mg PO BEDTIME MRX1 [facility] Last Admin: 02/19/24 23:18 Dose: Not Given Allergies Allergies Allergy/AdvReac Type Severity Reaction Status Date / Time No Known Allergies Allergy Unverified 01/28/20 16:07 [No Known Allergies*] Assessment & Plan Assessment & Plan (1) Schizoaffective disorder, bipolar type: Status: Acute Code(s): F25.0 - Schizoaffective disorder, bipolar type Assessment and Plan: 11/01 mildly up - positive mood=- but less irritable than in past visits 11/02 CTP (2) Dementia: Status: Acute Code(s): F03.90 - Unspecified dementia, unspecified severity, without behavioral disturbance, psychotic disturbance, mood disturbance, and anxiety Assessment and Plan: 11/01 ongoing dementia continue with reorientation and distraction prn - (3) Noncompliance: Status: Acute Code(s): Z91.199 - Patient's noncompliance with other medical treatment and regimen due to unspecified reason Assessment and Plan: seems to be taking medication currently - watches nurse crush them and put in ice cream Plan The patient is an elderly male with a past history of schizoaffective disorder, dementia, HIV and other medical problems, chronically mentally ill resident of assisted living facility referred to this facility after he became non compliant with medications with daniella and psychosis. The patient was assessed by crisis and transferring to this facility for psychiatric stabilization. At the moment of the interview the patient was able to contract for safety. Plan 1. Continue with same treatment. 2. Waiting for placement 3. The patient had been referred to [facility] and guardianship was already filed with more Lopez for placement. 4. Continue tappering off Haldol. At this moment he is only receiving Haldol Decanoate once a month. Reason for continued inpatient stay Substantial Risk for: inability to function, rapid decompensation and med/psych decompensation Time Spent With Patient Time: Total time managing care of this patient today __20__ minutes.
[2024-02-20] MEDS: OLANZapine 10 MG TABLET 20 MG PO (19:54)
[2024-02-20] MEDS: Sennosides 8.6 MG TABLET PO (19:54)
[2024-02-20] MEDS: Mirtazapine 15 MG TABLET PO (19:54)
[2024-02-20] MEDS: Multivitamin TABLET 1 TAB PO (19:55)
[2024-02-20] MEDS: traZODone HCL 50 MG TABLET PO ×2 (19:55→22:08)
[2024-02-20 20:00] VITALS: BP 108/72; PULSE 106; RESP 16; TEMP 36.8; O2SAT 93
[2024-02-21 09:45] VITALS: BP 118/73; PULSE 92; RESP 18; TEMP 36.7; O2SAT 92
[2024-02-21] MEDS: OLANZapine 5 MG TABLET PO ×2 (09:47→15:44)
[2024-02-21] MEDS: Thiamine HCL 100 MG TABLET PO (09:47)
[2024-02-21] MEDS: Divalproex Sodium Sprinkles 125 MG CAP.DR.SPR 250 MG PO ×3 (09:47→19:57)
[2024-02-21] MEDS: Emtricitabin/Tenofovir 200/300 TABLET 1 TAB PO (09:47)
[2024-02-21] MEDS: levETIRAcetam 500 MG TABLET PO ×2 (09:47→19:57)
[2024-02-21] MEDS: amLODIPine Besylate 5 MG TABLET PO (09:48)
[2024-02-21] MEDS: Rilpivirine HCL 25 MG TABLET PO (09:48)
--- NOTE | 2024-02-21 14:08 | P.PNPSI_ITS ---
Subjective Subjective Date of Service: 02/21/24 Reason For Visit: F32.9 Subjective Notes: Conditional Voluntary Interim History: The nursing staff reported no changes in mental status pleasant cooperative compliant with treatment. On interview the patient denies new symptoms, waiting for placement Mental Status Exam Mental Status Exam Patient Appearance: Appropriate Patient Orientation: Person and Situation Level of Consciousness: Awake Patient Behavior: Guarded and Passive Mood Description: Withdrawn Affect Description: Constricted Patient Cognition Impaired: Yes Ability to Follow Directions: Good Speech Pattern: Clear Hallucinations: None Delusions: Not Present Thought Process: Distracted and Slowed Thinking Thought Content: positive for [place] and positive for Poverty of Content Judgement: Fair Diagnostics Vital Signs (24Hr): Vital Signs - 24 hr 02/20/24 20:00 02/21/24 09:45 Temperature 98.3 F 98.1 F Pulse Rate 106 H 92 Respiratory Rate 16 18 Blood Pressure 108/72 118/73 Pulse Oximetry 93 92 Oxygen Delivery Method Room Air Room Air BMI result Body Mass Index 19.6 Labs 02/10/24 08:00 02/10/24 08:00 Imaging Radiology Impressions: ITS Impressions KUB X-Ray 02/05/24 09:07 IMPRESSION: Large volume of stool throughout the colon. Nonobstructive bowel pattern. Electronically signed by: Hector Way MD 02/05/2024 04:17 PM EDT RP Medications Medications Current Medications Acetaminophen (Acetaminophen 325 Mg Tablet) 650 mg PO Q6H PRN PRN Reason: Pain (Scale Score 1-3) Last Admin: 01/31/24 15:36 Dose: 650 mg Al Hydroxide/Mg Hydroxide (Magnesium Hydrox/Alum Hydrox 30 Ml Oral.Susp) 30 ml PO Q6H PRN PRN Reason: Heartburn/Nausea Last Admin: 11/12/23 06:20 Dose: 30 ml Albuterol Sulfate (Albuterol Sulfate 90 Mcg 8 Gm Inhaler) 2 puff INHALE RQ4H PRN PRN Reason: Wheezing Amlodipine Besylate (Amlodipine Besylate 5 Mg Tablet) 5 mg PO DAILY [facility]; Protocol Last Admin: 02/21/24 09:48 Dose: 5 mg Divalproex Sodium (Divalproex Sodium Sprinkles 125 Mg ) 250 mg PO TID [facility] Last Admin: 02/21/24 09:47 Dose: 250 mg Emtricitabine/Tenofovir (Emtricitabin/Tenofovir 200/300 Tablet) 1 tab PO DAILY [facility] Last Admin: 02/21/24 09:47 Dose: 1 tab Haloperidol Decanoate (Haloperidol Decanoate 50 Mg/Ml Vial) 100 mg IM Q28D [facility] Last Admin: 02/17/24 20:25 Dose: 100 mg Levetiracetam (Levetiracetam 500 Mg Tablet) 500 mg PO BID [facility] Last Admin: 02/21/24 09:47 Dose: 500 mg Magnesium Hydroxide (Milk Of Magnesia 30 Ml Oral.Susp) 30 ml PO DAILY PRN PRN Reason: Constipation Last Admin: 02/03/24 09:34 Dose: 30 ml Mirtazapine (Mirtazapine 15 Mg Tablet) 15 mg PO BEDTIME [facility] Last Admin: 02/20/24 19:54 Dose: 15 mg Multivitamins/Vitamin C (Multivitamin Tablet) 1 tab PO BEDTIME [facility] Last Admin: 02/20/24 19:55 Dose: 1 tab Nicotine Polacrilex (Nicotine Polacrilex 2 Mg Gum) 4 mg BUCCAL Q2H PRN PRN Reason: Nicotine Cravings Olanzapine (Olanzapine 5 Mg Tablet) 5 mg PO BID@0800,1500 [facility] Last Admin: 02/21/24 09:47 Dose: 5 mg Olanzapine (Olanzapine 10 Mg Vial) 5 mg IM BID@0800,1500 PRN PRN Reason: if refuses 0800/1500 PO zyprexa Last Admin: 10/13/23 14:58 Dose: 5 mg Olanzapine (Olanzapine 10 Mg Tablet) 20 mg PO BEDTIME [facility] Last Admin: 02/20/24 19:54 Dose: 20 mg Polyethylene Glycol (Polyethylene Glycol 3350 17 Gm Powd.Pack) 17 gm PO DAILY PRN PRN Reason: Constipation Last Admin: 02/05/24 21:00 Dose: 17 gm Rilpivirine (Rilpivirine Hcl 25 Mg Tablet) 25 mg PO DAILY [facility] Last Admin: 02/21/24 09:48 Dose: 25 mg Senna (Sennosides 8.6 Mg Tablet) 8.6 mg PO BEDTIME [facility] Last Admin: 02/20/24 19:54 Dose: 8.6 mg Thiamine HCl (Thiamine Hcl 100 Mg Tablet) 100 mg PO DAILY [facility] Last Admin: 02/21/24 09:47 Dose: 100 mg Trazodone HCl (Trazodone Hcl 50 Mg Tablet) 50 mg PO BEDTIME MRX1 [facility] Last Admin: 02/20/24 22:08 Dose: 50 mg Allergies Allergies Allergy/AdvReac Type Severity Reaction Status Date / Time No Known Allergies Allergy Unverified 01/28/20 16:07 [No Known Allergies*] Assessment & Plan Assessment & Plan (1) Schizoaffective disorder, bipolar type: Status: Acute Code(s): F25.0 - Schizoaffective disorder, bipolar type Assessment and Plan: 11/01 mildly up - positive mood=- but less irritable than in past visits 11/02 CTP (2) Dementia: Status: Acute Code(s): F03.90 - Unspecified dementia, unspecified severity, without behavioral disturbance, psychotic disturbance, mood disturbance, and anxiety Assessment and Plan: 11/01 ongoing dementia continue with reorientation and distraction prn - (3) Noncompliance: Status: Acute Code(s): Z91.199 - Patient's noncompliance with other medical treatment and regimen due to unspecified reason Assessment and Plan: seems to be taking medication currently - watches nurse crush them and put in ice cream Plan The patient is an elderly male with a past history of schizoaffective disorder, dementia, HIV and other medical problems, chronically mentally ill resident of assisted living facility referred to this facility after he became non compliant with medications with daniella and psychosis. The patient was assessed by crisis and transferring to this facility for psychiatric stabilization. At the moment of the interview the patient was able to contract for safety. Plan 1. Continue with same treatment. 2. Waiting for placement 3. The patient had been referred to [facility] and guardianship was already filed with more Lopez for placement. 4. Continue tappering off Haldol. At this moment he is only receiving Haldol Decanoate once a month. Reason for continued inpatient stay Substantial Risk for: inability to function, rapid decompensation and med/psych decompensation Time Spent With Patient Time: Total time managing care of this patient today __20__ minutes.
[2024-02-21] MEDS: OLANZapine 10 MG TABLET 20 MG PO (19:56)
[2024-02-21] MEDS: Sennosides 8.6 MG TABLET PO (19:56)
[2024-02-21] MEDS: traZODone HCL 50 MG TABLET PO (19:56)
[2024-02-21] MEDS: Multivitamin TABLET 1 TAB PO (19:56)
[2024-02-21] MEDS: Mirtazapine 15 MG TABLET PO (19:57)
[2024-02-21 20:00] VITALS: BP 103/68; PULSE 81; RESP 16; TEMP 37.1; O2SAT 93
[2024-02-22 08:52] VITALS: BP 140/75; PULSE 93; RESP 17; TEMP 36.3; O2SAT 95
[2024-02-22] MEDS: amLODIPine Besylate 5 MG TABLET PO (09:03)
[2024-02-22] MEDS: Emtricitabin/Tenofovir 200/300 TABLET 1 TAB PO (09:03)
[2024-02-22] MEDS: Rilpivirine HCL 25 MG TABLET PO (09:03)
[2024-02-22] MEDS: Thiamine HCL 100 MG TABLET PO (09:03)
[2024-02-22] MEDS: levETIRAcetam 500 MG TABLET PO ×2 (09:03→21:00)
[2024-02-22] MEDS: OLANZapine 5 MG TABLET PO ×2 (09:03→15:34)
[2024-02-22] MEDS: Divalproex Sodium Sprinkles 125 MG CAP.DR.SPR 250 MG PO ×3 (09:03→21:00)
--- NOTE | 2024-02-22 14:56 | HO.PSYCHPN ---
Subjective Subjective Date of Service: 02/22/24 Reason For Visit: F32.9 Subjective Notes: Conditional Voluntary Interim History: Patient was seen and discussed in rounds today. Records and plans were reviewed. He has been stable, isolative, mostly in his room. Eating and sleeping adequately. No changes were made today Mental Status Exam Mental Status Exam Patient Appearance: Appropriate Patient Orientation: Person and Situation Level of Consciousness: Awake Patient Behavior: Guarded and Passive Mood Description: Withdrawn Affect Description: Constricted Patient Cognition Impaired: Yes Ability to Follow Directions: Good Speech Pattern: Clear Hallucinations: None Delusions: Not Present Thought Process: Distracted and Slowed Thinking Thought Content: positive for [place] and positive for Poverty of Content Judgement: Fair Diagnostics Vital Signs (24Hr): Vital Signs - 24 hr 02/21/24 20:00 02/22/24 08:52 Temperature 98.8 F 97.3 F Pulse Rate 81 93 Respiratory Rate 16 17 Blood Pressure 103/68 140/75 H Pulse Oximetry 93 95 Oxygen Delivery Method Room Air Room Air BMI result Body Mass Index 19.6 Labs 02/10/24 08:00 02/10/24 08:00 Imaging Radiology Impressions: ITS Impressions [facility] X-Ray 02/05/24 09:07 IMPRESSION: Large volume of stool throughout the colon. Nonobstructive bowel pattern. Electronically signed by: Hector Way MD 02/05/2024 04:17 PM EDT RP Medications Medications Current Medications Acetaminophen (Acetaminophen 325 Mg Tablet) 650 mg PO Q6H PRN PRN Reason: Pain (Scale Score 1-3) Last Admin: 01/31/24 15:36 Dose: 650 mg Al Hydroxide/Mg Hydroxide (Magnesium Hydrox/Alum Hydrox 30 Ml Oral.Susp) 30 ml PO Q6H PRN PRN Reason: Heartburn/Nausea Last Admin: 11/12/23 06:20 Dose: 30 ml Albuterol Sulfate (Albuterol Sulfate 90 Mcg 8 Gm Inhaler) 2 puff INHALE RQ4H PRN PRN Reason: Wheezing Amlodipine Besylate (Amlodipine Besylate 5 Mg Tablet) 5 mg PO DAILY [facility]; Protocol Last Admin: 02/22/24 09:03 Dose: 5 mg Divalproex Sodium (Divalproex Sodium Sprinkles 125 Mg ) 250 mg PO TID [facility] Last Admin: 02/22/24 09:03 Dose: 250 mg Emtricitabine/Tenofovir (Emtricitabin/Tenofovir 200/300 Tablet) 1 tab PO DAILY [facility] Last Admin: 02/22/24 09:03 Dose: 1 tab Haloperidol Decanoate (Haloperidol Decanoate 50 Mg/Ml Vial) 100 mg IM Q28D [facility] Last Admin: 02/17/24 20:25 Dose: 100 mg Levetiracetam (Levetiracetam 500 Mg Tablet) 500 mg PO BID [facility] Last Admin: 02/22/24 09:03 Dose: 500 mg Magnesium Hydroxide (Milk Of Magnesia 30 Ml Oral.Susp) 30 ml PO DAILY PRN PRN Reason: Constipation Last Admin: 02/03/24 09:34 Dose: 30 ml Mirtazapine (Mirtazapine 15 Mg Tablet) 15 mg PO BEDTIME [facility] Last Admin: 02/21/24 19:57 Dose: 15 mg Multivitamins/Vitamin C (Multivitamin Tablet) 1 tab PO BEDTIME [facility] Last Admin: 02/21/24 19:56 Dose: 1 tab Nicotine Polacrilex (Nicotine Polacrilex 2 Mg Gum) 4 mg BUCCAL Q2H PRN PRN Reason: Nicotine Cravings Olanzapine (Olanzapine 5 Mg Tablet) 5 mg PO BID@0800,1500 [facility] Last Admin: 02/22/24 09:03 Dose: 5 mg Olanzapine (Olanzapine 10 Mg Vial) 5 mg IM BID@0800,1500 PRN PRN Reason: if refuses 0800/1500 PO zyprexa Last Admin: 10/13/23 14:58 Dose: 5 mg Olanzapine (Olanzapine 10 Mg Tablet) 20 mg PO BEDTIME [facility] Last Admin: 02/21/24 19:56 Dose: 20 mg Polyethylene Glycol (Polyethylene Glycol 3350 17 Gm Powd.Pack) 17 gm PO DAILY PRN PRN Reason: Constipation Last Admin: 02/05/24 21:00 Dose: 17 gm Rilpivirine (Rilpivirine Hcl 25 Mg Tablet) 25 mg PO DAILY [facility] Last Admin: 02/22/24 09:03 Dose: 25 mg Senna (Sennosides 8.6 Mg Tablet) 8.6 mg PO BEDTIME [facility] Last Admin: 02/21/24 19:56 Dose: 8.6 mg Thiamine HCl (Thiamine Hcl 100 Mg Tablet) 100 mg PO DAILY [facility] Last Admin: 02/22/24 09:03 Dose: 100 mg Trazodone HCl (Trazodone Hcl 50 Mg Tablet) 50 mg PO BEDTIME MRX1 [facility] Last Admin: 02/22/24 00:34 Dose: Not Given Allergies Allergies Allergy/AdvReac Type Severity Reaction Status Date / Time No Known Allergies Allergy Unverified 01/28/20 16:07 [No Known Allergies*] Assessment & Plan Assessment & Plan (1) Schizoaffective disorder, bipolar type: Status: Acute Code(s): F25.0 - Schizoaffective disorder, bipolar type Assessment and Plan: 11/01 mildly up - positive mood=- but less irritable than in past visits 11/02 CTP (2) Dementia: Status: Acute Code(s): F03.90 - Unspecified dementia, unspecified severity, without behavioral disturbance, psychotic disturbance, mood disturbance, and anxiety Assessment and Plan: 11/01 ongoing dementia continue with reorientation and distraction prn - (3) Noncompliance: Status: Acute Code(s): Z91.199 - Patient's noncompliance with other medical treatment and regimen due to unspecified reason Assessment and Plan: seems to be taking medication currently - watches nurse crush them and put in ice cream Plan The patient is an elderly male with a past history of schizoaffective disorder, dementia, HIV and other medical problems, chronically mentally ill resident of assisted living facility referred to this facility after he became non compliant with medications with daniella and psychosis. The patient was assessed by crisis and transferring to this facility for psychiatric stabilization. At the moment of the interview the patient was able to contract for safety. Plan 1. Continue with same treatment. 2. Waiting for placement 3. The patient had been referred to [facility] and guardianship was already filed with more Lopez for placement. 4. Continue tappering off Haldol. At this moment he is only receiving Haldol Decanoate once a month. Reason for continued inpatient stay Substantial Risk for: inability to function Time Spent With Patient Time: Total time managing care of this patient today ____ minutes.
[2024-02-22 20:00] VITALS: BP 96/60; PULSE 87; RESP 16; TEMP 36.4; O2SAT 93
[2024-02-22] MEDS: Mirtazapine 15 MG TABLET PO (21:00)
[2024-02-22] MEDS: Sennosides 8.6 MG TABLET PO (21:00)
[2024-02-22] MEDS: traZODone HCL 50 MG TABLET PO (21:00)
[2024-02-22] MEDS: Multivitamin TABLET 1 TAB PO (21:00)
[2024-02-22] MEDS: OLANZapine 10 MG TABLET 20 MG PO (21:00)
[2024-02-23 08:17] VITALS: BP 118/76; PULSE 104; RESP 17; TEMP 36.2; O2SAT 94
[2024-02-23] MEDS: Thiamine HCL 100 MG TABLET PO (08:19)
[2024-02-23] MEDS: amLODIPine Besylate 5 MG TABLET PO (08:19)
[2024-02-23] MEDS: Rilpivirine HCL 25 MG TABLET PO (08:20)
[2024-02-23] MEDS: Emtricitabin/Tenofovir 200/300 TABLET 1 TAB PO (08:20)
[2024-02-23] MEDS: Divalproex Sodium Sprinkles 125 MG CAP.DR.SPR 250 MG PO ×3 (08:20→20:18)
[2024-02-23] MEDS: levETIRAcetam 500 MG TABLET PO ×2 (08:20→20:18)
[2024-02-23] MEDS: OLANZapine 5 MG TABLET PO ×2 (08:20→15:50)
--- NOTE | 2024-02-23 12:28 | HO.PSYCHPN ---
Subjective Subjective Date of Service: 02/23/24 Reason For Visit: F32.9 Subjective Notes: Conditional Voluntary Interim History: Patient was seen and discussed in rounds today. Records and plans were reviewed. He is doing fairly well and is mostly in his room. Eating and sleeping adequately. No complaints or side effects. No behavioral issues as observed by nursing. y Review of Systems Review of Systems Yes all other systems are reviewed and are negative Mental Status Exam Mental Status Exam Patient Appearance: Appropriate Patient Orientation: Person and Situation Level of Consciousness: Awake Patient Behavior: Guarded and Passive Mood Description: Withdrawn Affect Description: Constricted Patient Cognition Impaired: Yes Ability to Follow Directions: Good Speech Pattern: Clear Hallucinations: None Delusions: Not Present Thought Process: Distracted and Slowed Thinking Thought Content: positive for [place] and positive for Poverty of Content Judgement: Fair Diagnostics Vital Signs (24Hr): Vital Signs - 24 hr 02/22/24 20:00 02/23/24 08:17 Temperature 97.6 F 97.2 F Pulse Rate 87 104 H Respiratory Rate 16 17 Blood Pressure 96/60 118/76 Pulse Oximetry 93 94 Oxygen Delivery Method Room Air BMI result Body Mass Index 19.6 Labs 02/10/24 08:00 02/10/24 08:00 Imaging Radiology Impressions: ITS Impressions KUB X-Ray 02/05/24 09:07 IMPRESSION: Large volume of stool throughout the colon. Nonobstructive bowel pattern. Electronically signed by: Hector Way MD 02/05/2024 04:17 PM EDT RP Medications Medications Current Medications Acetaminophen (Acetaminophen 325 Mg Tablet) 650 mg PO Q6H PRN PRN Reason: Pain (Scale Score 1-3) Last Admin: 01/31/24 15:36 Dose: 650 mg Al Hydroxide/Mg Hydroxide (Magnesium Hydrox/Alum Hydrox 30 Ml Oral.Susp) 30 ml PO Q6H PRN PRN Reason: Heartburn/Nausea Last Admin: 11/12/23 06:20 Dose: 30 ml Albuterol Sulfate (Albuterol Sulfate 90 Mcg 8 Gm Inhaler) 2 puff INHALE RQ4H PRN PRN Reason: Wheezing Amlodipine Besylate (Amlodipine Besylate 5 Mg Tablet) 5 mg PO DAILY [facility]; Protocol Last Admin: 02/23/24 08:19 Dose: 5 mg Divalproex Sodium (Divalproex Sodium Sprinkles 125 Mg Cap..Spr) 250 mg PO TID [facility] Last Admin: 02/23/24 08:20 Dose: 250 mg Emtricitabine/Tenofovir (Emtricitabin/Tenofovir 200/300 Tablet) 1 tab PO DAILY [facility] Last Admin: 02/23/24 08:20 Dose: 1 tab Haloperidol Decanoate (Haloperidol Decanoate 50 Mg/Ml Vial) 100 mg IM Q28D [facility] Last Admin: 02/17/24 20:25 Dose: 100 mg Levetiracetam (Levetiracetam 500 Mg Tablet) 500 mg PO BID [facility] Last Admin: 02/23/24 08:20 Dose: 500 mg Magnesium Hydroxide (Milk Of Magnesia 30 Ml Oral.Susp) 30 ml PO DAILY PRN PRN Reason: Constipation Last Admin: 02/03/24 09:34 Dose: 30 ml Mirtazapine (Mirtazapine 15 Mg Tablet) 15 mg PO BEDTIME [facility] Last Admin: 02/22/24 21:00 Dose: 15 mg Multivitamins/Vitamin C (Multivitamin Tablet) 1 tab PO BEDTIME [facility] Last Admin: 02/22/24 21:00 Dose: 1 tab Nicotine Polacrilex (Nicotine Polacrilex 2 Mg Gum) 4 mg BUCCAL Q2H PRN PRN Reason: Nicotine Cravings Olanzapine (Olanzapine 5 Mg Tablet) 5 mg PO BID@0800,1500 [facility] Last Admin: 02/23/24 08:20 Dose: 5 mg Olanzapine (Olanzapine 10 Mg Vial) 5 mg IM BID@0800,1500 PRN PRN Reason: if refuses 0800/1500 PO zyprexa Last Admin: 10/13/23 14:58 Dose: 5 mg Olanzapine (Olanzapine 10 Mg Tablet) 20 mg PO BEDTIME [facility] Last Admin: 02/22/24 21:00 Dose: 20 mg Polyethylene Glycol (Polyethylene Glycol 3350 17 Gm Powd.Pack) 17 gm PO DAILY PRN PRN Reason: Constipation Last Admin: 02/05/24 21:00 Dose: 17 gm Rilpivirine (Rilpivirine Hcl 25 Mg Tablet) 25 mg PO DAILY [facility] Last Admin: 02/23/24 08:20 Dose: 25 mg Senna (Sennosides 8.6 Mg Tablet) 8.6 mg PO BEDTIME [facility] Last Admin: 02/22/24 21:00 Dose: 8.6 mg Thiamine HCl (Thiamine Hcl 100 Mg Tablet) 100 mg PO DAILY [facility] Last Admin: 02/23/24 08:19 Dose: 100 mg Trazodone HCl (Trazodone Hcl 50 Mg Tablet) 50 mg PO BEDTIME MRX1 [facility] Last Admin: 02/22/24 23:38 Dose: Not Given Allergies Allergies Allergy/AdvReac Type Severity Reaction Status Date / Time No Known Allergies Allergy Unverified 01/28/20 16:07 [No Known Allergies*] Assessment & Plan Assessment & Plan (1) Schizoaffective disorder, bipolar type: Status: Acute Code(s): F25.0 - Schizoaffective disorder, bipolar type Assessment and Plan: 11/01 mildly up - positive mood=- but less irritable than in past visits 11/02 CTP (2) Dementia: Status: Acute Code(s): F03.90 - Unspecified dementia, unspecified severity, without behavioral disturbance, psychotic disturbance, mood disturbance, and anxiety Assessment and Plan: 11/01 ongoing dementia continue with reorientation and distraction prn - (3) Noncompliance: Status: Acute Code(s): Z91.199 - Patient's noncompliance with other medical treatment and regimen due to unspecified reason Assessment and Plan: seems to be taking medication currently - watches nurse crush them and put in ice cream Plan The patient is an elderly male with a past history of schizoaffective disorder, dementia, HIV and other medical problems, chronically mentally ill resident of assisted living facility referred to this facility after he became non compliant with medications with daniella and psychosis. The patient was assessed by crisis and transferring to this facility for psychiatric stabilization. At the moment of the interview the patient was able to contract for safety. Reason for continued inpatient stay Substantial Risk for: inability to function Time Spent With Patient Time: Total time managing care of this patient today ____ minutes.
[2024-02-23 19:44] VITALS: BP 98/56; PULSE 89; RESP 18; TEMP 36.6; O2SAT 97
[2024-02-23] MEDS: Sennosides 8.6 MG TABLET PO (20:18)
[2024-02-23] MEDS: traZODone HCL 50 MG TABLET PO (20:18)
[2024-02-23] MEDS: Mirtazapine 15 MG TABLET PO (20:18)
[2024-02-23] MEDS: Multivitamin TABLET 1 TAB PO (20:18)
[2024-02-23] MEDS: OLANZapine 10 MG TABLET 20 MG PO (20:18)
[2024-02-24 08:00] VITALS: BP 130/80; PULSE 103; RESP 17; TEMP 36.3; O2SAT 97
[2024-02-24] MEDS: Divalproex Sodium Sprinkles 125 MG CAP.DR.SPR 250 MG PO ×3 (08:11→20:26)
[2024-02-24] MEDS: Thiamine HCL 100 MG TABLET PO (08:12)
[2024-02-24] MEDS: amLODIPine Besylate 5 MG TABLET PO (08:12)
[2024-02-24] MEDS: levETIRAcetam 500 MG TABLET PO ×2 (08:12→20:26)
[2024-02-24] MEDS: OLANZapine 5 MG TABLET PO ×2 (08:12→15:25)
[2024-02-24] MEDS: Rilpivirine HCL 25 MG TABLET PO (08:12)
[2024-02-24] MEDS: Emtricitabin/Tenofovir 200/300 TABLET 1 TAB PO (08:12)
--- NOTE | 2024-02-24 10:26 | HO.PSYCHPN ---
Subjective Subjective Date of Service: 02/24/24 Reason For Visit: F32.9 Subjective Notes: Conditional Voluntary Interim History: Patient was seen and discussed in rounds today. Records and plans were reviewed. He has been stable. Nursing reports no behavioral changes. Mostly on his bed. Eating and sleeping adequately. No side effects. No SI. No changes were made today Mental Status Exam Mental Status Exam Patient Appearance: Appropriate Patient Orientation: Person and Situation Level of Consciousness: Awake Patient Behavior: Guarded and Passive Mood Description: Withdrawn Affect Description: Constricted Patient Cognition Impaired: Yes Ability to Follow Directions: Good Speech Pattern: Clear Hallucinations: None Delusions: Not Present Thought Process: Distracted and Slowed Thinking Thought Content: positive for [place] and positive for Poverty of Content Judgement: Fair Diagnostics Vital Signs (24Hr): Vital Signs - 24 hr 02/23/24 19:44 02/24/24 08:00 Temperature 97.9 F 97.3 F Pulse Rate 89 103 H Respiratory Rate 18 17 Blood Pressure 98/56 L 130/80 Pulse Oximetry 97 97 Oxygen Delivery Method Room Air Room Air BMI result Body Mass Index 19.6 Labs 02/10/24 08:00 02/10/24 08:00 Imaging Radiology Impressions: ITS Impressions KUB X-Ray 02/05/24 09:07 IMPRESSION: Large volume of stool throughout the colon. Nonobstructive bowel pattern. Electronically signed by: Hector Way MD 02/05/2024 04:17 PM EDT RP Medications Medications Current Medications Acetaminophen (Acetaminophen 325 Mg Tablet) 650 mg PO Q6H PRN PRN Reason: Pain (Scale Score 1-3) Last Admin: 01/31/24 15:36 Dose: 650 mg Al Hydroxide/Mg Hydroxide (Magnesium Hydrox/Alum Hydrox 30 Ml Oral.Susp) 30 ml PO Q6H PRN PRN Reason: Heartburn/Nausea Last Admin: 11/12/23 06:20 Dose: 30 ml Albuterol Sulfate (Albuterol Sulfate 90 Mcg 8 Gm Inhaler) 2 puff INHALE RQ4H PRN PRN Reason: Wheezing Amlodipine Besylate (Amlodipine Besylate 5 Mg Tablet) 5 mg PO DAILY [facility]; Protocol Last Admin: 02/24/24 08:12 Dose: 5 mg Divalproex Sodium (Divalproex Sodium Sprinkles 125 Mg Cap.Dr.Spr) 250 mg PO TID [facility] Last Admin: 02/24/24 08:11 Dose: 250 mg Emtricitabine/Tenofovir (Emtricitabin/Tenofovir 200/300 Tablet) 1 tab PO DAILY [facility] Last Admin: 02/24/24 08:12 Dose: 1 tab Haloperidol Decanoate (Haloperidol Decanoate 50 Mg/Ml Vial) 100 mg IM Q28D [facility] Last Admin: 02/17/24 20:25 Dose: 100 mg Levetiracetam (Levetiracetam 500 Mg Tablet) 500 mg PO BID [facility] Last Admin: 02/24/24 08:12 Dose: 500 mg Magnesium Hydroxide (Milk Of Magnesia 30 Ml Oral.Susp) 30 ml PO DAILY PRN PRN Reason: Constipation Last Admin: 02/03/24 09:34 Dose: 30 ml Mirtazapine (Mirtazapine 15 Mg Tablet) 15 mg PO BEDTIME [facility] Last Admin: 02/23/24 20:18 Dose: 15 mg Multivitamins/Vitamin C (Multivitamin Tablet) 1 tab PO BEDTIME [facility] Last Admin: 02/23/24 20:18 Dose: 1 tab Nicotine Polacrilex (Nicotine Polacrilex 2 Mg Gum) 4 mg BUCCAL Q2H PRN PRN Reason: Nicotine Cravings Olanzapine (Olanzapine 5 Mg Tablet) 5 mg PO BID@0800,1500 [facility] Last Admin: 02/24/24 08:12 Dose: 5 mg Olanzapine (Olanzapine 10 Mg Vial) 5 mg IM BID@0800,1500 PRN PRN Reason: if refuses 0800/1500 PO zyprexa Last Admin: 10/13/23 14:58 Dose: 5 mg Olanzapine (Olanzapine 10 Mg Tablet) 20 mg PO BEDTIME [facility] Last Admin: 02/23/24 20:18 Dose: 20 mg Polyethylene Glycol (Polyethylene Glycol 3350 17 Gm Powd.Pack) 17 gm PO DAILY PRN PRN Reason: Constipation Last Admin: 02/05/24 21:00 Dose: 17 gm Rilpivirine (Rilpivirine Hcl 25 Mg Tablet) 25 mg PO DAILY [facility] Last Admin: 02/24/24 08:12 Dose: 25 mg Senna (Sennosides 8.6 Mg Tablet) 8.6 mg PO BEDTIME [facility] Last Admin: 02/23/24 20:18 Dose: 8.6 mg Thiamine HCl (Thiamine Hcl 100 Mg Tablet) 100 mg PO DAILY [facility] Last Admin: 02/24/24 08:12 Dose: 100 mg Trazodone HCl (Trazodone Hcl 50 Mg Tablet) 50 mg PO BEDTIME MRX1 [facility] Last Admin: 02/23/24 22:06 Dose: Not Given Allergies Allergies Allergy/AdvReac Type Severity Reaction Status Date / Time No Known Allergies Allergy Unverified 01/28/20 16:07 [No Known Allergies*] Assessment & Plan Assessment & Plan (1) Schizoaffective disorder, bipolar type: Status: Acute Code(s): F25.0 - Schizoaffective disorder, bipolar type Assessment and Plan: 11/01 mildly up - positive mood=- but less irritable than in past visits 11/02 CTP (2) Dementia: Status: Acute Code(s): F03.90 - Unspecified dementia, unspecified severity, without behavioral disturbance, psychotic disturbance, mood disturbance, and anxiety Assessment and Plan: 11/01 ongoing dementia continue with reorientation and distraction prn - (3) Noncompliance: Status: Acute Code(s): Z91.199 - Patient's noncompliance with other medical treatment and regimen due to unspecified reason Assessment and Plan: seems to be taking medication currently - watches nurse crush them and put in ice cream Plan The patient is an elderly male with a past history of schizoaffective disorder, dementia, HIV and other medical problems, chronically mentally ill resident of assisted living facility referred to this facility after he became non compliant with medications with daniella and psychosis. The patient was assessed by crisis and transferring to this facility for psychiatric stabilization. At the moment of the interview the patient was able to contract for safety. 02/23: Continue current plans and regimen Reason for continued inpatient stay Substantial Risk for: inability to function Time Spent With Patient Time: Total time managing care of this patient today ____ minutes.
[2024-02-24 20:00] VITALS: BP 94/67; PULSE 81; RESP 18; TEMP 37; O2SAT 95
[2024-02-24] MEDS: Mirtazapine 15 MG TABLET PO (20:26)
[2024-02-24] MEDS: Sennosides 8.6 MG TABLET PO (20:26)
[2024-02-24] MEDS: Multivitamin TABLET 1 TAB PO (20:26)
[2024-02-24] MEDS: traZODone HCL 50 MG TABLET PO (20:26)
[2024-02-24] MEDS: OLANZapine 10 MG TABLET 20 MG PO (20:26)
[2024-02-25 08:00] VITALS: BP 141/78; PULSE 93; RESP 18; TEMP 36.4; O2SAT 97
[2024-02-25] MEDS: Divalproex Sodium Sprinkles 125 MG CAP.DR.SPR 250 MG PO ×3 (09:35→20:49)
[2024-02-25] MEDS: amLODIPine Besylate 5 MG TABLET PO (09:35)
[2024-02-25] MEDS: Thiamine HCL 100 MG TABLET PO (09:36)
[2024-02-25] MEDS: Rilpivirine HCL 25 MG TABLET PO (09:36)
[2024-02-25] MEDS: OLANZapine 5 MG TABLET PO ×2 (09:36→15:51)
[2024-02-25] MEDS: levETIRAcetam 500 MG TABLET PO ×2 (09:36→20:49)
[2024-02-25] MEDS: Emtricitabin/Tenofovir 200/300 TABLET 1 TAB PO (09:36)
--- NOTE | 2024-02-25 12:31 | HO.PSYCHPN ---
Subjective Subjective Date of Service: 02/25/24 Reason For Visit: F32.9 Subjective Notes: Conditional Voluntary Interim History: The nursing staff reported the patient had been compliant with treatment no changes in his mental status. The social work manager reported his [facility] application still pending. On interview the patient denies new symptoms, waiting for placement. Mental Status Exam Mental Status Exam Patient Appearance: Appropriate Patient Orientation: Person and Situation Level of Consciousness: Awake and Appropriate Patient Behavior: Guarded and Passive Mood Description: Withdrawn Affect Description: Constricted Patient Cognition Impaired: Yes Ability to Follow Directions: Good Speech Pattern: Clear Hallucinations: None Delusions: Not Present Thought Process: Distracted and Slowed Thinking Thought Content: positive for [place] and positive for Poverty of Content Judgement: Fair Diagnostics Vital Signs (24Hr): Vital Signs - 24 hr 02/24/24 20:00 02/25/24 08:00 Temperature 98.6 F 97.5 F Pulse Rate 81 93 Respiratory Rate 18 18 Blood Pressure 94/67 141/78 H Pulse Oximetry 95 97 Oxygen Delivery Method Room Air Room Air BMI result Body Mass Index 19.6 Labs 02/10/24 08:00 02/10/24 08:00 Imaging Radiology Impressions: ITS Impressions KUB X-Ray 02/05/24 09:07 IMPRESSION: Large volume of stool throughout the colon. Nonobstructive bowel pattern. Electronically signed by: Hector Way MD 02/05/2024 04:17 PM EDT RP Medications Medications Current Medications Acetaminophen (Acetaminophen 325 Mg Tablet) 650 mg PO Q6H PRN PRN Reason: Pain (Scale Score 1-3) Last Admin: 01/31/24 15:36 Dose: 650 mg Al Hydroxide/Mg Hydroxide (Magnesium Hydrox/Alum Hydrox 30 Ml Oral.Susp) 30 ml PO Q6H PRN PRN Reason: Heartburn/Nausea Last Admin: 11/12/23 06:20 Dose: 30 ml Albuterol Sulfate (Albuterol Sulfate 90 Mcg 8 Gm Inhaler) 2 puff INHALE RQ4H PRN PRN Reason: Wheezing Amlodipine Besylate (Amlodipine Besylate 5 Mg Tablet) 5 mg PO DAILY [facility]; Protocol Last Admin: 02/25/24 09:35 Dose: 5 mg Divalproex Sodium (Divalproex Sodium Sprinkles 125 Mg ) 250 mg PO TID [facility] Last Admin: 02/25/24 09:35 Dose: 250 mg Emtricitabine/Tenofovir (Emtricitabin/Tenofovir 200/300 Tablet) 1 tab PO DAILY [facility] Last Admin: 02/25/24 09:36 Dose: 1 tab Haloperidol Decanoate (Haloperidol Decanoate 50 Mg/Ml Vial) 100 mg IM Q28D [facility] Last Admin: 02/17/24 20:25 Dose: 100 mg Levetiracetam (Levetiracetam 500 Mg Tablet) 500 mg PO BID [facility] Last Admin: 02/25/24 09:36 Dose: 500 mg Magnesium Hydroxide (Milk Of Magnesia 30 Ml Oral.Susp) 30 ml PO DAILY PRN PRN Reason: Constipation Last Admin: 02/03/24 09:34 Dose: 30 ml Mirtazapine (Mirtazapine 15 Mg Tablet) 15 mg PO BEDTIME [facility] Last Admin: 02/24/24 20:26 Dose: 15 mg Multivitamins/Vitamin C (Multivitamin Tablet) 1 tab PO BEDTIME [facility] Last Admin: 02/24/24 20:26 Dose: 1 tab Nicotine Polacrilex (Nicotine Polacrilex 2 Mg Gum) 4 mg BUCCAL Q2H PRN PRN Reason: Nicotine Cravings Olanzapine (Olanzapine 5 Mg Tablet) 5 mg PO BID@0800,1500 [facility] Last Admin: 02/25/24 09:36 Dose: 5 mg Olanzapine (Olanzapine 10 Mg Vial) 5 mg IM BID@0800,1500 PRN PRN Reason: if refuses 0800/1500 PO zyprexa Last Admin: 10/13/23 14:58 Dose: 5 mg Olanzapine (Olanzapine 10 Mg Tablet) 20 mg PO BEDTIME [facility] Last Admin: 02/24/24 20:26 Dose: 20 mg Polyethylene Glycol (Polyethylene Glycol 3350 17 Gm Powd.Pack) 17 gm PO DAILY PRN PRN Reason: Constipation Last Admin: 02/05/24 21:00 Dose: 17 gm Rilpivirine (Rilpivirine Hcl 25 Mg Tablet) 25 mg PO DAILY [facility] Last Admin: 02/25/24 09:36 Dose: 25 mg Senna (Sennosides 8.6 Mg Tablet) 8.6 mg PO BEDTIME [facility] Last Admin: 02/24/24 20:26 Dose: 8.6 mg Thiamine HCl (Thiamine Hcl 100 Mg Tablet) 100 mg PO DAILY [facility] Last Admin: 02/25/24 09:36 Dose: 100 mg Trazodone HCl (Trazodone Hcl 50 Mg Tablet) 50 mg PO BEDTIME MRX1 [facility] Last Admin: 02/24/24 22:11 Dose: Not Given Allergies Allergies Allergy/AdvReac Type Severity Reaction Status Date / Time No Known Allergies Allergy Unverified 01/28/20 16:07 [No Known Allergies*] Assessment & Plan Assessment & Plan (1) Schizoaffective disorder, bipolar type: Status: Acute Code(s): F25.0 - Schizoaffective disorder, bipolar type Assessment and Plan: 11/01 mildly up - positive mood=- but less irritable than in past visits 11/02 CTP (2) Dementia: Status: Acute Code(s): F03.90 - Unspecified dementia, unspecified severity, without behavioral disturbance, psychotic disturbance, mood disturbance, and anxiety Assessment and Plan: 11/01 ongoing dementia continue with reorientation and distraction prn - (3) Noncompliance: Status: Acute Code(s): Z91.199 - Patient's noncompliance with other medical treatment and regimen due to unspecified reason Assessment and Plan: seems to be taking medication currently - watches nurse crush them and put in ice cream Plan The patient is an elderly male with a past history of schizoaffective disorder, dementia, HIV and other medical problems, chronically mentally ill resident of assisted living facility referred to this facility after he became non compliant with medications with daniella and psychosis. The patient was assessed by crisis and transferring to this facility for psychiatric stabilization. At the moment of the interview the patient was able to contract for safety. Plan 1. Continue with antipsychotics and mood stabilizers. 2. Waiting for placement. Reason for continued inpatient stay Substantial Risk for: inability to function, rapid decompensation and med/psych decompensation Time Spent With Patient Time: Total time managing care of this patient today _20___ minutes.
[2024-02-25 20:00] VITALS: BP 100/67; PULSE 100; RESP 18; TEMP 36.6; O2SAT 94
[2024-02-25] MEDS: Mirtazapine 15 MG TABLET PO (20:49)
[2024-02-25] MEDS: Multivitamin TABLET 1 TAB PO (20:49)
[2024-02-25] MEDS: traZODone HCL 50 MG TABLET PO (20:49)
[2024-02-25] MEDS: OLANZapine 10 MG TABLET 20 MG PO (20:49)
[2024-02-25] MEDS: Sennosides 8.6 MG TABLET PO (20:49)
[2024-02-26 08:00] VITALS: BP 140/86; PULSE 100; RESP 16; TEMP 36; O2SAT 98
[2024-02-26] MEDS: Rilpivirine HCL 25 MG TABLET PO (08:50)
[2024-02-26] MEDS: Divalproex Sodium Sprinkles 125 MG CAP.DR.SPR 250 MG PO ×3 (08:50→19:49)
[2024-02-26 08:51] VITALS: BP 140/86
[2024-02-26] MEDS: amLODIPine Besylate 5 MG TABLET PO (08:51)
[2024-02-26] MEDS: levETIRAcetam 500 MG TABLET PO ×2 (08:51→19:49)
[2024-02-26] MEDS: Thiamine HCL 100 MG TABLET PO (08:51)
[2024-02-26] MEDS: OLANZapine 5 MG TABLET PO ×2 (08:52→14:38)
[2024-02-26] MEDS: Emtricitabin/Tenofovir 200/300 TABLET 1 TAB PO (08:52)
--- NOTE | 2024-02-26 15:21 | P.PNPSI_ITS ---
Subjective Subjective Date of Service: 02/26/24 Reason For Visit: F32.9 Subjective Notes: Conditional Voluntary Interim History: The nursing staff reported no changes in his mental status compliant with treatment. On interview the patient denies new symptoms waiting for placement. The drug abuse social worker called for the financial services to see if he has already cleared for transfer. Mental Status Exam Mental Status Exam Patient Appearance: Appropriate Patient Orientation: Person and Situation Level of Consciousness: Awake and Appropriate Patient Behavior: Guarded and Passive Mood Description: Withdrawn Affect Description: Constricted Patient Cognition Impaired: Yes Ability to Follow Directions: Good Speech Pattern: Clear Hallucinations: None Delusions: Not Present Thought Process: Distracted and Slowed Thinking Thought Content: positive for [place] and positive for Poverty of Content Judgement: Fair Diagnostics Vital Signs (24Hr): Vital Signs - 24 hr 02/25/24 20:00 02/26/24 08:00 02/26/24 08:51 Temperature 97.8 F 96.8 F Pulse Rate 100 100 Respiratory Rate 18 16 Blood Pressure 100/67 140/86 H 140/86 H Pulse Oximetry 94 98 Oxygen Delivery Method Room Air Room Air BMI result Body Mass Index 19.6 Labs 02/10/24 08:00 02/10/24 08:00 Imaging Radiology Impressions: ITS Impressions KUB X-Ray 02/05/24 09:07 IMPRESSION: Large volume of stool throughout the colon. Nonobstructive bowel pattern. Electronically signed by: Hector Way MD 02/05/2024 04:17 PM EDT RP Medications Medications Current Medications Acetaminophen (Acetaminophen 325 Mg Tablet) 650 mg PO Q6H PRN PRN Reason: Pain (Scale Score 1-3) Last Admin: 01/31/24 15:36 Dose: 650 mg Al Hydroxide/Mg Hydroxide (Magnesium Hydrox/Alum Hydrox 30 Ml Oral.Susp) 30 ml PO Q6H PRN PRN Reason: Heartburn/Nausea Last Admin: 11/12/23 06:20 Dose: 30 ml Albuterol Sulfate (Albuterol Sulfate 90 Mcg 8 Gm Inhaler) 2 puff INHALE RQ4H PRN PRN Reason: Wheezing Amlodipine Besylate (Amlodipine Besylate 5 Mg Tablet) 5 mg PO DAILY [facility]; Protocol Last Admin: 02/26/24 08:51 Dose: 5 mg Divalproex Sodium (Divalproex Sodium Sprinkles 125 Mg Cap.) 250 mg PO TID [facility] Last Admin: 02/26/24 14:38 Dose: 250 mg Emtricitabine/Tenofovir (Emtricitabin/Tenofovir 200/300 Tablet) 1 tab PO DAILY [facility] Last Admin: 02/26/24 08:52 Dose: 1 tab Haloperidol Decanoate (Haloperidol Decanoate 50 Mg/Ml Vial) 100 mg IM Q28D [facility] Last Admin: 02/17/24 20:25 Dose: 100 mg Levetiracetam (Levetiracetam 500 Mg Tablet) 500 mg PO BID [facility] Last Admin: 02/26/24 08:51 Dose: 500 mg Magnesium Hydroxide (Milk Of Magnesia 30 Ml Oral.Susp) 30 ml PO DAILY PRN PRN Reason: Constipation Last Admin: 02/03/24 09:34 Dose: 30 ml Mirtazapine (Mirtazapine 15 Mg Tablet) 15 mg PO BEDTIME [facility] Last Admin: 02/25/24 20:49 Dose: 15 mg Multivitamins/Vitamin C (Multivitamin Tablet) 1 tab PO BEDTIME [facility] Last Admin: 02/25/24 20:49 Dose: 1 tab Nicotine Polacrilex (Nicotine Polacrilex 2 Mg Gum) 4 mg BUCCAL Q2H PRN PRN Reason: Nicotine Cravings Olanzapine (Olanzapine 5 Mg Tablet) 5 mg PO BID@0800,1500 [facility] Last Admin: 02/26/24 14:38 Dose: 5 mg Olanzapine (Olanzapine 10 Mg Vial) 5 mg IM BID@0800,1500 PRN PRN Reason: if refuses 0800/1500 PO zyprexa Last Admin: 10/13/23 14:58 Dose: 5 mg Olanzapine (Olanzapine 10 Mg Tablet) 20 mg PO BEDTIME [facility] Last Admin: 02/25/24 20:49 Dose: 20 mg Polyethylene Glycol (Polyethylene Glycol 3350 17 Gm Powd.Pack) 17 gm PO DAILY PRN PRN Reason: Constipation Last Admin: 02/05/24 21:00 Dose: 17 gm Rilpivirine (Rilpivirine Hcl 25 Mg Tablet) 25 mg PO DAILY [facility] Last Admin: 02/26/24 08:50 Dose: 25 mg Senna (Sennosides 8.6 Mg Tablet) 8.6 mg PO BEDTIME [facility] Last Admin: 02/25/24 20:49 Dose: 8.6 mg Thiamine HCl (Thiamine Hcl 100 Mg Tablet) 100 mg PO DAILY [facility] Last Admin: 02/26/24 08:51 Dose: 100 mg Trazodone HCl (Trazodone Hcl 50 Mg Tablet) 50 mg PO BEDTIME MRX1 [facility] Last Admin: 02/25/24 23:54 Dose: Not Given Allergies Allergies Allergy/AdvReac Type Severity Reaction Status Date / Time No Known Allergies Allergy Unverified 01/28/20 16:07 [No Known Allergies*] Assessment & Plan Assessment & Plan (1) Schizoaffective disorder, bipolar type: Status: Acute Code(s): F25.0 - Schizoaffective disorder, bipolar type Assessment and Plan: 11/01 mildly up - positive mood=- but less irritable than in past visits 11/02 CTP (2) Dementia: Status: Acute Code(s): F03.90 - Unspecified dementia, unspecified severity, without behavioral disturbance, psychotic disturbance, mood disturbance, and anxiety Assessment and Plan: 11/01 ongoing dementia continue with reorientation and distraction prn - (3) Noncompliance: Status: Acute Code(s): Z91.199 - Patient's noncompliance with other medical treatment and regimen due to unspecified reason Assessment and Plan: seems to be taking medication currently - watches nurse crush them and put in ice cream Plan The patient is an elderly male with a past history of schizoaffective disorder, dementia, HIV and other medical problems, chronically mentally ill resident of assisted living facility referred to this facility after he became non compliant with medications with daniella and psychosis. The patient was assessed by crisis and transferring to this facility for psychiatric stabilization. At the moment of the interview the patient was able to contract for safety. Plan 1. Continue with antipsychotics and mood stabilizers. 2. Waiting for placement. Reason for continued inpatient stay Substantial Risk for: inability to function, rapid decompensation and med/psych decompensation Time Spent With Patient Time: Total time managing care of this patient today __20__ minutes.
[2024-02-26 19:45] VITALS: BP 116/75; PULSE 90; RESP 15; TEMP 36.4; O2SAT 94
[2024-02-26] MEDS: OLANZapine 10 MG TABLET 20 MG PO (19:49)
[2024-02-26] MEDS: traZODone HCL 50 MG TABLET PO (19:49)
[2024-02-26] MEDS: Multivitamin TABLET 1 TAB PO (19:49)
[2024-02-26] MEDS: Sennosides 8.6 MG TABLET PO (19:49)
[2024-02-26] MEDS: Mirtazapine 15 MG TABLET PO (19:50)
[2024-02-27 08:00] VITALS: BP 106/69; PULSE 103; RESP 16; TEMP 36.2; O2SAT 99
[2024-02-27] MEDS: Emtricitabin/Tenofovir 200/300 TABLET 1 TAB PO (08:20)
[2024-02-27] MEDS: Thiamine HCL 100 MG TABLET PO (08:20)
[2024-02-27] MEDS: Rilpivirine HCL 25 MG TABLET PO (08:21)
[2024-02-27] MEDS: levETIRAcetam 500 MG TABLET PO ×2 (08:21→19:37)
[2024-02-27] MEDS: Divalproex Sodium Sprinkles 125 MG CAP.DR.SPR 250 MG PO ×3 (08:21→19:37)
[2024-02-27 08:22] VITALS: BP 106/69
[2024-02-27] MEDS: OLANZapine 5 MG TABLET PO ×2 (08:22→15:02)
[2024-02-27] MEDS: amLODIPine Besylate 5 MG TABLET PO (08:22)
--- NOTE | 2024-02-27 16:26 | HO.PSYCHPN ---
Subjective Subjective Date of Service: 02/27/24 Reason For Visit: F32.9 Subjective Notes: Conditional Voluntary Interim History: The nursing staff reported no changes in mental status. On interview the patient denies new symptoms, waiting for placement. Mental Status Exam Mental Status Exam Patient Appearance: Appropriate Patient Orientation: Person and Situation Level of Consciousness: Awake and Appropriate Patient Behavior: Guarded and Passive Mood Description: Calm Affect Description: Constricted Patient Cognition Impaired: Yes Ability to Follow Directions: Good Speech Pattern: Clear Hallucinations: None Delusions: Not Present Thought Content: positive for [place] and positive for [place] Judgement: Fair Diagnostics Vital Signs (24Hr): Vital Signs - 24 hr 02/26/24 19:45 02/27/24 08:00 02/27/24 08:22 Temperature 97.6 F 97.2 F Pulse Rate 90 103 H Respiratory Rate 15 16 Blood Pressure 116/75 106/69 106/69 Pulse Oximetry 94 99 Oxygen Delivery Method Room Air Room Air BMI result Body Mass Index 19.6 Labs 02/10/24 08:00 02/10/24 08:00 Imaging Radiology Impressions: ITS Impressions KUB X-Ray 02/05/24 09:07 IMPRESSION: Large volume of stool throughout the colon. Nonobstructive bowel pattern. Electronically signed by: Hector Way MD 02/05/2024 04:17 PM EDT RP Medications Medications Current Medications Acetaminophen (Acetaminophen 325 Mg Tablet) 650 mg PO Q6H PRN PRN Reason: Pain (Scale Score 1-3) Last Admin: 01/31/24 15:36 Dose: 650 mg Al Hydroxide/Mg Hydroxide (Magnesium Hydrox/Alum Hydrox 30 Ml Oral.Susp) 30 ml PO Q6H PRN PRN Reason: Heartburn/Nausea Last Admin: 11/12/23 06:20 Dose: 30 ml Albuterol Sulfate (Albuterol Sulfate 90 Mcg 8 Gm Inhaler) 2 puff INHALE RQ4H PRN PRN Reason: Wheezing Amlodipine Besylate (Amlodipine Besylate 5 Mg Tablet) 5 mg PO DAILY [facility]; Protocol Last Admin: 02/27/24 08:22 Dose: 5 mg Divalproex Sodium (Divalproex Sodium Sprinkles 125 Mg ) 250 mg PO TID [facility] Last Admin: 02/27/24 14:55 Dose: 250 mg Emtricitabine/Tenofovir (Emtricitabin/Tenofovir 200/300 Tablet) 1 tab PO DAILY [facility] Last Admin: 02/27/24 08:20 Dose: 1 tab Haloperidol Decanoate (Haloperidol Decanoate 50 Mg/Ml Vial) 100 mg IM Q28D [facility] Last Admin: 02/17/24 20:25 Dose: 100 mg Levetiracetam (Levetiracetam 500 Mg Tablet) 500 mg PO BID [facility] Last Admin: 02/27/24 08:21 Dose: 500 mg Magnesium Hydroxide (Milk Of Magnesia 30 Ml Oral.Susp) 30 ml PO DAILY PRN PRN Reason: Constipation Last Admin: 02/03/24 09:34 Dose: 30 ml Mirtazapine (Mirtazapine 15 Mg Tablet) 15 mg PO BEDTIME [facility] Last Admin: 02/26/24 19:50 Dose: 15 mg Multivitamins/Vitamin C (Multivitamin Tablet) 1 tab PO BEDTIME [facility] Last Admin: 02/26/24 19:49 Dose: 1 tab Nicotine Polacrilex (Nicotine Polacrilex 2 Mg Gum) 4 mg BUCCAL Q2H PRN PRN Reason: Nicotine Cravings Olanzapine (Olanzapine 5 Mg Tablet) 5 mg PO BID@0800,1500 [facility] Last Admin: 02/27/24 15:02 Dose: 5 mg Olanzapine (Olanzapine 10 Mg Vial) 5 mg IM BID@0800,1500 PRN PRN Reason: if refuses 0800/1500 PO zyprexa Last Admin: 10/13/23 14:58 Dose: 5 mg Olanzapine (Olanzapine 10 Mg Tablet) 20 mg PO BEDTIME [facility] Last Admin: 02/26/24 19:49 Dose: 20 mg Polyethylene Glycol (Polyethylene Glycol 3350 17 Gm Powd.Pack) 17 gm PO DAILY PRN PRN Reason: Constipation Last Admin: 02/05/24 21:00 Dose: 17 gm Rilpivirine (Rilpivirine Hcl 25 Mg Tablet) 25 mg PO DAILY [facility] Last Admin: 02/27/24 08:21 Dose: 25 mg Senna (Sennosides 8.6 Mg Tablet) 8.6 mg PO BEDTIME [facility] Last Admin: 02/26/24 19:49 Dose: 8.6 mg Thiamine HCl (Thiamine Hcl 100 Mg Tablet) 100 mg PO DAILY [facility] Last Admin: 02/27/24 08:20 Dose: 100 mg Trazodone HCl (Trazodone Hcl 50 Mg Tablet) 50 mg PO BEDTIME MRX1 [facility] Last Admin: 02/26/24 21:18 Dose: Not Given Allergies Allergies Allergy/AdvReac Type Severity Reaction Status Date / Time No Known Allergies Allergy Unverified 01/28/20 16:07 [No Known Allergies*] Assessment & Plan Assessment & Plan (1) Schizoaffective disorder, bipolar type: Status: Acute Code(s): F25.0 - Schizoaffective disorder, bipolar type Assessment and Plan: 11/01 mildly up - positive mood=- but less irritable than in past visits 11/02 CTP (2) Dementia: Status: Acute Code(s): F03.90 - Unspecified dementia, unspecified severity, without behavioral disturbance, psychotic disturbance, mood disturbance, and anxiety Assessment and Plan: 11/01 ongoing dementia continue with reorientation and distraction prn - (3) Noncompliance: Status: Acute Code(s): Z91.199 - Patient's noncompliance with other medical treatment and regimen due to unspecified reason Assessment and Plan: seems to be taking medication currently - watches nurse crush them and put in ice cream Plan The patient is an elderly male with a past history of schizoaffective disorder, dementia, HIV and other medical problems, chronically mentally ill resident of assisted living facility referred to this facility after he became non compliant with medications with daniella and psychosis. The patient was assessed by crisis and transferring to this facility for psychiatric stabilization. At the moment of the interview the patient was able to contract for safety. Plan 1. Continue with antipsychotics and mood stabilizers. 2. Waiting for placement. Reason for continued inpatient stay Substantial Risk for: inability to function, rapid decompensation and med/psych decompensation Time Spent With Patient Time: Total time managing care of this patient today _20___ minutes.
[2024-02-27 19:34] VITALS: BP 97/70; PULSE 101; RESP 16; TEMP 36.2; O2SAT 94
[2024-02-27] MEDS: traZODone HCL 50 MG TABLET PO (19:36)
[2024-02-27] MEDS: Sennosides 8.6 MG TABLET PO (19:37)
[2024-02-27] MEDS: Mirtazapine 15 MG TABLET PO (19:37)
[2024-02-27] MEDS: Multivitamin TABLET 1 TAB PO (19:37)
[2024-02-27] MEDS: OLANZapine 10 MG TABLET 20 MG PO (19:37)
[2024-02-28 08:34] VITALS: BP 139/84; PULSE 104; RESP 18; TEMP 36.2; O2SAT 96
[2024-02-28] MEDS: Divalproex Sodium Sprinkles 125 MG CAP.DR.SPR 250 MG PO ×3 (08:35→20:25)
[2024-02-28] MEDS: OLANZapine 5 MG TABLET PO ×2 (08:35→14:54)
[2024-02-28] MEDS: levETIRAcetam 500 MG TABLET PO ×2 (08:35→20:25)
[2024-02-28] MEDS: Thiamine HCL 100 MG TABLET PO (08:35)
[2024-02-28] MEDS: Rilpivirine HCL 25 MG TABLET PO (08:35)
[2024-02-28] MEDS: Emtricitabin/Tenofovir 200/300 TABLET 1 TAB PO (08:35)
[2024-02-28] MEDS: amLODIPine Besylate 5 MG TABLET PO (08:35)
--- NOTE | 2024-02-28 14:32 | HO.PSYCHPN ---
Subjective Subjective Date of Service: 02/28/24 Reason For Visit: F32.9 Subjective Notes: Conditional Voluntary Interim History: The nursing staff reported no changes in his mental status. The licensed clinical social worker reported that he had been referred to [facility] and probably he will be accepted soon. On interview the patient denies new symptoms, waiting for placement. Mental Status Exam Mental Status Exam Patient Appearance: Appropriate Patient Orientation: Person and Situation Level of Consciousness: Awake and Appropriate Patient Behavior: Guarded and Passive Mood Description: Withdrawn Affect Description: Constricted Patient Cognition Impaired: Yes Ability to Follow Directions: Good Speech Pattern: Clear Hallucinations: None Delusions: Not Present Thought Process: Distracted and Slowed Thinking Thought Content: positive for [place] and positive for Poverty of Content Judgement: Fair Diagnostics Vital Signs (24Hr): Vital Signs - 24 hr 02/27/24 19:34 02/28/24 08:34 Temperature 97.2 F 97.2 F Pulse Rate 101 H 104 H Respiratory Rate 16 18 Blood Pressure 97/70 139/84 Pulse Oximetry 94 96 Oxygen Delivery Method Room Air Room Air BMI result Body Mass Index 19.6 Labs 02/10/24 08:00 02/10/24 08:00 Imaging Radiology Impressions: ITS Impressions KUB X-Ray 02/05/24 09:07 IMPRESSION: Large volume of stool throughout the colon. Nonobstructive bowel pattern. Electronically signed by: Hector Way MD 02/05/2024 04:17 PM EDT RP Medications Medications Current Medications Acetaminophen (Acetaminophen 325 Mg Tablet) 650 mg PO Q6H PRN PRN Reason: Pain (Scale Score 1-3) Last Admin: 01/31/24 15:36 Dose: 650 mg Al Hydroxide/Mg Hydroxide (Magnesium Hydrox/Alum Hydrox 30 Ml Oral.Susp) 30 ml PO Q6H PRN PRN Reason: Heartburn/Nausea Last Admin: 11/12/23 06:20 Dose: 30 ml Albuterol Sulfate (Albuterol Sulfate 90 Mcg 8 Gm Inhaler) 2 puff INHALE RQ4H PRN PRN Reason: Wheezing Amlodipine Besylate (Amlodipine Besylate 5 Mg Tablet) 5 mg PO DAILY [facility]; Protocol Last Admin: 02/28/24 08:35 Dose: 5 mg Divalproex Sodium (Divalproex Sodium Sprinkles 125 Mg ) 250 mg PO TID [facility] Last Admin: 02/28/24 08:35 Dose: 250 mg Emtricitabine/Tenofovir (Emtricitabin/Tenofovir 200/300 Tablet) 1 tab PO DAILY [facility] Last Admin: 02/28/24 08:35 Dose: 1 tab Haloperidol Decanoate (Haloperidol Decanoate 50 Mg/Ml Vial) 100 mg IM Q28D [facility] Last Admin: 02/17/24 20:25 Dose: 100 mg Levetiracetam (Levetiracetam 500 Mg Tablet) 500 mg PO BID [facility] Last Admin: 02/28/24 08:35 Dose: 500 mg Magnesium Hydroxide (Milk Of Magnesia 30 Ml Oral.Susp) 30 ml PO DAILY PRN PRN Reason: Constipation Last Admin: 02/03/24 09:34 Dose: 30 ml Mirtazapine (Mirtazapine 15 Mg Tablet) 15 mg PO BEDTIME [facility] Last Admin: 02/27/24 19:37 Dose: 15 mg Multivitamins/Vitamin C (Multivitamin Tablet) 1 tab PO BEDTIME [facility] Last Admin: 02/27/24 19:37 Dose: 1 tab Nicotine Polacrilex (Nicotine Polacrilex 2 Mg Gum) 4 mg BUCCAL Q2H PRN PRN Reason: Nicotine Cravings Olanzapine (Olanzapine 5 Mg Tablet) 5 mg PO BID@0800,1500 [facility] Last Admin: 02/28/24 08:35 Dose: 5 mg Olanzapine (Olanzapine 10 Mg Vial) 5 mg IM BID@0800,1500 PRN PRN Reason: if refuses 0800/1500 PO zyprexa Last Admin: 10/13/23 14:58 Dose: 5 mg Olanzapine (Olanzapine 10 Mg Tablet) 20 mg PO BEDTIME [facility] Last Admin: 02/27/24 19:37 Dose: 20 mg Polyethylene Glycol (Polyethylene Glycol 3350 17 Gm Powd.Pack) 17 gm PO DAILY PRN PRN Reason: Constipation Last Admin: 02/05/24 21:00 Dose: 17 gm Rilpivirine (Rilpivirine Hcl 25 Mg Tablet) 25 mg PO DAILY [facility] Last Admin: 02/28/24 08:35 Dose: 25 mg Senna (Sennosides 8.6 Mg Tablet) 8.6 mg PO BEDTIME [facility] Last Admin: 02/27/24 19:37 Dose: 8.6 mg Thiamine HCl (Thiamine Hcl 100 Mg Tablet) 100 mg PO DAILY [facility] Last Admin: 02/28/24 08:35 Dose: 100 mg Trazodone HCl (Trazodone Hcl 50 Mg Tablet) 50 mg PO BEDTIME MRX1 [facility] Last Admin: 02/27/24 20:52 Dose: Not Given Allergies Allergies Allergy/AdvReac Type Severity Reaction Status Date / Time No Known Allergies Allergy Unverified 01/28/20 16:07 [No Known Allergies*] Assessment & Plan Assessment & Plan (1) Schizoaffective disorder, bipolar type: Status: Acute Code(s): F25.0 - Schizoaffective disorder, bipolar type Assessment and Plan: 11/01 mildly up - positive mood=- but less irritable than in past visits 11/02 CTP (2) Dementia: Status: Acute Code(s): F03.90 - Unspecified dementia, unspecified severity, without behavioral disturbance, psychotic disturbance, mood disturbance, and anxiety Assessment and Plan: 11/01 ongoing dementia continue with reorientation and distraction prn - (3) Noncompliance: Status: Acute Code(s): Z91.199 - Patient's noncompliance with other medical treatment and regimen due to unspecified reason Assessment and Plan: seems to be taking medication currently - watches nurse crush them and put in ice cream Plan The patient is an elderly male with a past history of schizoaffective disorder, dementia, HIV and other medical problems, chronically mentally ill resident of assisted living facility referred to this facility after he became non compliant with medications with daniella and psychosis. The patient was assessed by crisis and transferring to this facility for psychiatric stabilization. At the moment of the interview the patient was able to contract for safety. Plan 1. Continue with antipsychotics and mood stabilizers. 2. Waiting for placement. Reason for continued inpatient stay Substantial Risk for: inability to function, rapid decompensation and med/psych decompensation Time Spent With Patient Time: Total time managing care of this patient today __20__ minutes.
[2024-02-28 20:00] VITALS: BP 113/77; PULSE 100; RESP 17; TEMP 36.7; O2SAT 94
[2024-02-28] MEDS: OLANZapine 10 MG TABLET 20 MG PO (20:25)
[2024-02-28] MEDS: Sennosides 8.6 MG TABLET PO (20:25)
[2024-02-28] MEDS: traZODone HCL 50 MG TABLET PO (20:26)
[2024-02-28] MEDS: Mirtazapine 15 MG TABLET PO (20:26)
--- NOTE | 2024-02-29 06:52 | P.PNPSI_ITS ---
Subjective Subjective Date of Service: 02/29/24 Reason For Visit: F32.9 Subjective Notes: Conditional Voluntary Interim History: The nursing staff reported the patient had been visible, compliant with medications. On interview the patient denies new symptoms, waiting for placement. Mental Status Exam Mental Status Exam Patient Appearance: Appropriate Patient Orientation: Person and Situation Level of Consciousness: Awake and Appropriate Patient Behavior: Guarded and Passive Mood Description: Withdrawn Affect Description: Constricted Patient Cognition Impaired: Yes Ability to Follow Directions: Good Speech Pattern: Clear Hallucinations: None Delusions: Not Present Thought Process: Distracted and Slowed Thinking Thought Content: positive for [place] and positive for Poverty of Content Judgement: Fair Diagnostics Vital Signs (24Hr): Vital Signs - 24 hr 02/28/24 08:34 02/28/24 20:00 Temperature 97.2 F 98.0 F Pulse Rate 104 H 100 Respiratory Rate 18 17 Blood Pressure 139/84 113/77 Pulse Oximetry 96 94 Oxygen Delivery Method Room Air Room Air BMI result Body Mass Index 19.6 Labs 02/10/24 08:00 02/10/24 08:00 Imaging Radiology Impressions: ITS Impressions KUB X-Ray 02/05/24 09:07 IMPRESSION: Large volume of stool throughout the colon. Nonobstructive bowel pattern. Electronically signed by: Hector Way MD 02/05/2024 04:17 PM EDT RP Medications Medications Current Medications Acetaminophen (Acetaminophen 325 Mg Tablet) 650 mg PO Q6H PRN PRN Reason: Pain (Scale Score 1-3) Last Admin: 01/31/24 15:36 Dose: 650 mg Al Hydroxide/Mg Hydroxide (Magnesium Hydrox/Alum Hydrox 30 Ml Oral.Susp) 30 ml PO Q6H PRN PRN Reason: Heartburn/Nausea Last Admin: 11/12/23 06:20 Dose: 30 ml Albuterol Sulfate (Albuterol Sulfate 90 Mcg 8 Gm Inhaler) 2 puff INHALE RQ4H PRN PRN Reason: Wheezing Amlodipine Besylate (Amlodipine Besylate 5 Mg Tablet) 5 mg PO DAILY [facility]; Protocol Last Admin: 02/28/24 08:35 Dose: 5 mg Divalproex Sodium (Divalproex Sodium Sprinkles 125 Mg ) 250 mg PO TID [facility] Last Admin: 02/28/24 20:25 Dose: 250 mg Emtricitabine/Tenofovir (Emtricitabin/Tenofovir 200/300 Tablet) 1 tab PO DAILY [facility] Last Admin: 02/28/24 08:35 Dose: 1 tab Haloperidol Decanoate (Haloperidol Decanoate 50 Mg/Ml Vial) 100 mg IM Q28D [facility] Last Admin: 02/17/24 20:25 Dose: 100 mg Levetiracetam (Levetiracetam 500 Mg Tablet) 500 mg PO BID [facility] Last Admin: 02/28/24 20:25 Dose: 500 mg Magnesium Hydroxide (Milk Of Magnesia 30 Ml Oral.Susp) 30 ml PO DAILY PRN PRN Reason: Constipation Last Admin: 02/03/24 09:34 Dose: 30 ml Mirtazapine (Mirtazapine 15 Mg Tablet) 15 mg PO BEDTIME [facility] Last Admin: 02/28/24 20:26 Dose: 15 mg Multivitamins/Vitamin C (Multivitamin Tablet) 1 tab PO BEDTIME [facility] Last Admin: 02/28/24 20:26 Dose: Not Given Nicotine Polacrilex (Nicotine Polacrilex 2 Mg Gum) 4 mg BUCCAL Q2H PRN PRN Reason: Nicotine Cravings Olanzapine (Olanzapine 5 Mg Tablet) 5 mg PO BID@0800,1500 [facility] Last Admin: 02/28/24 14:54 Dose: 5 mg Olanzapine (Olanzapine 10 Mg Vial) 5 mg IM BID@0800,1500 PRN PRN Reason: if refuses 0800/1500 PO zyprexa Last Admin: 10/13/23 14:58 Dose: 5 mg Olanzapine (Olanzapine 10 Mg Tablet) 20 mg PO BEDTIME [facility] Last Admin: 02/28/24 20:25 Dose: 20 mg Polyethylene Glycol (Polyethylene Glycol 3350 17 Gm Powd.Pack) 17 gm PO DAILY PRN PRN Reason: Constipation Last Admin: 02/05/24 21:00 Dose: 17 gm Rilpivirine (Rilpivirine Hcl 25 Mg Tablet) 25 mg PO DAILY [facility] Last Admin: 02/28/24 08:35 Dose: 25 mg Senna (Sennosides 8.6 Mg Tablet) 8.6 mg PO BEDTIME [facility] Last Admin: 02/28/24 20:25 Dose: 8.6 mg Thiamine HCl (Thiamine Hcl 100 Mg Tablet) 100 mg PO DAILY [facility] Last Admin: 02/28/24 08:35 Dose: 100 mg Trazodone HCl (Trazodone Hcl 50 Mg Tablet) 50 mg PO BEDTIME MRX1 [facility] Last Admin: 02/28/24 22:12 Dose: Not Given Allergies Allergies Allergy/AdvReac Type Severity Reaction Status Date / Time No Known Allergies Allergy Unverified 01/28/20 16:07 [No Known Allergies*] Assessment & Plan Assessment & Plan (1) Schizoaffective disorder, bipolar type: Status: Acute Code(s): F25.0 - Schizoaffective disorder, bipolar type Assessment and Plan: 11/01 mildly up - positive mood=- but less irritable than in past visits 11/02 CTP (2) Dementia: Status: Acute Code(s): F03.90 - Unspecified dementia, unspecified severity, without behavioral disturbance, psychotic disturbance, mood disturbance, and anxiety Assessment and Plan: 11/01 ongoing dementia continue with reorientation and distraction prn - (3) Noncompliance: Status: Acute Code(s): Z91.199 - Patient's noncompliance with other medical treatment and regimen due to unspecified reason Assessment and Plan: seems to be taking medication currently - watches nurse crush them and put in ice cream Plan The patient is an elderly male with a past history of schizoaffective disorder, dementia, HIV and other medical problems, chronically mentally ill resident of assisted living facility referred to this facility after he became non compliant with medications with daniella and psychosis. The patient was assessed by crisis and transferring to this facility for psychiatric stabilization. At the moment of the interview the patient was able to contract for safety. Plan 1. Continue with antipsychotics and mood stabilizers. 2. Waiting for placement. Reason for continued inpatient stay Substantial Risk for: inability to function, rapid decompensation and med/psych decompensation Time Spent With Patient Time: Total time managing care of this patient today __20__ minutes.
[2024-02-29 09:58] VITALS: BP 121/73; PULSE 96; RESP 16; TEMP 36.6; O2SAT 94
[2024-02-29] MEDS: Divalproex Sodium Sprinkles 125 MG CAP.DR.SPR 250 MG PO ×3 (10:02→19:46)
[2024-02-29] MEDS: OLANZapine 5 MG TABLET PO ×2 (10:02→16:04)
[2024-02-29] MEDS: Emtricitabin/Tenofovir 200/300 TABLET 1 TAB PO (10:02)
[2024-02-29] MEDS: Rilpivirine HCL 25 MG TABLET PO (10:02)
[2024-02-29] MEDS: levETIRAcetam 500 MG TABLET PO ×2 (10:02→19:47)
[2024-02-29] MEDS: amLODIPine Besylate 5 MG TABLET PO (10:02)
[2024-02-29] MEDS: Thiamine HCL 100 MG TABLET PO (10:02)
[2024-02-29 19:43] VITALS: BP 133/84; PULSE 94; RESP 16; TEMP 36; O2SAT 95
[2024-02-29] MEDS: OLANZapine 10 MG TABLET 20 MG PO (19:45)
[2024-02-29] MEDS: traZODone HCL 50 MG TABLET PO (19:46)
[2024-02-29] MEDS: Mirtazapine 15 MG TABLET PO (19:46)
[2024-02-29] MEDS: Sennosides 8.6 MG TABLET PO (19:46)
--- NOTE | 2024-03-01 06:40 | P.PNPSI_ITS ---
Subjective Subjective Date of Service: 03/01/24 Reason For Visit: F32.9 Subjective Notes: Conditional Voluntary Interim History: The nursing staff reported the patient had been compliant with treatment, no changes in his mental status. On interview the patient denies new symptoms, waiting for placement. Mental Status Exam Mental Status Exam Patient Appearance: Appropriate Patient Orientation: Person and Situation Level of Consciousness: Awake and Appropriate Patient Behavior: Guarded and Passive Mood Description: Withdrawn Affect Description: Constricted Patient Cognition Impaired: Yes Ability to Follow Directions: Fair Speech Pattern: Clear Hallucinations: None Delusions: Ideas of Reference Thought Process: Distracted and Slowed Thinking Thought Content: positive for Poverty of Content Judgement: Fair Diagnostics Vital Signs (24Hr): Vital Signs - 24 hr 02/29/24 09:58 02/29/24 19:43 Temperature 97.8 F 96.8 F Pulse Rate 96 94 Respiratory Rate 16 16 Blood Pressure 121/73 133/84 Pulse Oximetry 94 95 Oxygen Delivery Method Room Air Room Air BMI result Body Mass Index 19.6 Labs 02/10/24 08:00 02/10/24 08:00 Imaging Radiology Impressions: ITS Impressions KUB X-Ray 02/05/24 09:07 IMPRESSION: Large volume of stool throughout the colon. Nonobstructive bowel pattern. Electronically signed by: Hector Way MD 02/05/2024 04:17 PM EDT RP Medications Medications Current Medications Acetaminophen (Acetaminophen 325 Mg Tablet) 650 mg PO Q6H PRN PRN Reason: Pain (Scale Score 1-3) Last Admin: 01/31/24 15:36 Dose: 650 mg Al Hydroxide/Mg Hydroxide (Magnesium Hydrox/Alum Hydrox 30 Ml Oral.Susp) 30 ml PO Q6H PRN PRN Reason: Heartburn/Nausea Last Admin: 11/12/23 06:20 Dose: 30 ml Albuterol Sulfate (Albuterol Sulfate 90 Mcg 8 Gm Inhaler) 2 puff INHALE RQ4H PRN PRN Reason: Wheezing Amlodipine Besylate (Amlodipine Besylate 5 Mg Tablet) 5 mg PO DAILY [facility]; Protocol Last Admin: 02/29/24 10:02 Dose: 5 mg Divalproex Sodium (Divalproex Sodium Sprinkles 125 Mg ) 250 mg PO TID [facility] Last Admin: 02/29/24 19:46 Dose: 250 mg Emtricitabine/Tenofovir (Emtricitabin/Tenofovir 200/300 Tablet) 1 tab PO DAILY [facility] Last Admin: 02/29/24 10:02 Dose: 1 tab Haloperidol Decanoate (Haloperidol Decanoate 50 Mg/Ml Vial) 100 mg IM Q28D [facility] Last Admin: 02/17/24 20:25 Dose: 100 mg Levetiracetam (Levetiracetam 500 Mg Tablet) 500 mg PO BID [facility] Last Admin: 02/29/24 19:47 Dose: 500 mg Magnesium Hydroxide (Milk Of Magnesia 30 Ml Oral.Susp) 30 ml PO DAILY PRN PRN Reason: Constipation Last Admin: 02/03/24 09:34 Dose: 30 ml Mirtazapine (Mirtazapine 15 Mg Tablet) 15 mg PO BEDTIME [facility] Last Admin: 02/29/24 19:46 Dose: 15 mg Multivitamins/Vitamin C (Multivitamin Tablet) 1 tab PO BEDTIME [facility] Last Admin: 02/29/24 19:47 Dose: Not Given Nicotine Polacrilex (Nicotine Polacrilex 2 Mg Gum) 4 mg BUCCAL Q2H PRN PRN Reason: Nicotine Cravings Olanzapine (Olanzapine 5 Mg Tablet) 5 mg PO BID@0800,1500 [facility] Last Admin: 02/29/24 16:04 Dose: 5 mg Olanzapine (Olanzapine 10 Mg Vial) 5 mg IM BID@0800,1500 PRN PRN Reason: if refuses 0800/1500 PO zyprexa Last Admin: 10/13/23 14:58 Dose: 5 mg Olanzapine (Olanzapine 10 Mg Tablet) 20 mg PO BEDTIME [facility] Last Admin: 02/29/24 19:45 Dose: 20 mg Polyethylene Glycol (Polyethylene Glycol 3350 17 Gm Powd.Pack) 17 gm PO DAILY PRN PRN Reason: Constipation Last Admin: 02/05/24 21:00 Dose: 17 gm Rilpivirine (Rilpivirine Hcl 25 Mg Tablet) 25 mg PO DAILY [facility] Last Admin: 02/29/24 10:02 Dose: 25 mg Senna (Sennosides 8.6 Mg Tablet) 8.6 mg PO BEDTIME [facility] Last Admin: 02/29/24 19:46 Dose: 8.6 mg Thiamine HCl (Thiamine Hcl 100 Mg Tablet) 100 mg PO DAILY [facility] Last Admin: 02/29/24 10:02 Dose: 100 mg Trazodone HCl (Trazodone Hcl 50 Mg Tablet) 50 mg PO BEDTIME MRX1 [facility] Last Admin: 02/29/24 22:02 Dose: Not Given Allergies Allergies Allergy/AdvReac Type Severity Reaction Status Date / Time No Known Allergies Allergy Unverified 01/28/20 16:07 [No Known Allergies*] Assessment & Plan Assessment & Plan (1) Schizoaffective disorder, bipolar type: Status: Acute Code(s): F25.0 - Schizoaffective disorder, bipolar type Assessment and Plan: 11/01 mildly up - positive mood=- but less irritable than in past visits 11/02 CTP (2) Dementia: Status: Acute Code(s): F03.90 - Unspecified dementia, unspecified severity, without behavioral disturbance, psychotic disturbance, mood disturbance, and anxiety Assessment and Plan: 11/01 ongoing dementia continue with reorientation and distraction prn - (3) Noncompliance: Status: Acute Code(s): Z91.199 - Patient's noncompliance with other medical treatment and regimen due to unspecified reason Assessment and Plan: seems to be taking medication currently - watches nurse crush them and put in ice cream Plan The patient is an elderly male with a past history of schizoaffective disorder, dementia, HIV and other medical problems, chronically mentally ill resident of assisted living facility referred to this facility after he became non compliant with medications with daniella and psychosis. The patient was assessed by crisis and transferring to this facility for psychiatric stabilization. At the moment of the interview the patient was able to contract for safety. Plan 1. Continue with antipsychotics and mood stabilizers. 2. Waiting for placement. Reason for continued inpatient stay Substantial Risk for: inability to function, rapid decompensation and med/psych decompensation Time Spent With Patient Time: Total time managing care of this patient today __20__ minutes.
[2024-03-01] MEDS: Divalproex Sodium Sprinkles 125 MG CAP.DR.SPR 250 MG PO ×3 (08:52→20:31)
[2024-03-01] MEDS: OLANZapine 5 MG TABLET PO ×2 (08:53→14:47)
[2024-03-01] MEDS: levETIRAcetam 500 MG TABLET PO ×2 (08:53→20:31)
[2024-03-01] MEDS: Emtricitabin/Tenofovir 200/300 TABLET 1 TAB PO (08:53)
[2024-03-01] MEDS: Thiamine HCL 100 MG TABLET PO (08:53)
[2024-03-01] MEDS: Rilpivirine HCL 25 MG TABLET PO (08:53)
[2024-03-01 08:54] VITALS: BP 123/73; PULSE 102; RESP 18; TEMP 36; O2SAT 94
[2024-03-01] MEDS: amLODIPine Besylate 5 MG TABLET PO (08:55)
[2024-03-01 19:45] VITALS: BP 125/70; PULSE 107; RESP 18; TEMP 36.6; O2SAT 97
[2024-03-01] MEDS: traZODone HCL 50 MG TABLET PO (20:31)
[2024-03-01] MEDS: Sennosides 8.6 MG TABLET PO (20:31)
[2024-03-01] MEDS: OLANZapine 10 MG TABLET 20 MG PO (20:31)
[2024-03-01] MEDS: Mirtazapine 15 MG TABLET PO (20:31)
[2024-03-01] MEDS: Multivitamin TABLET 1 TAB PO (20:31)
[2024-03-02 08:00] VITALS: BP 104/62; PULSE 102; RESP 18; TEMP 36.4; O2SAT 94
[2024-03-02] MEDS: OLANZapine 5 MG TABLET PO ×2 (08:53→14:30)
[2024-03-02] MEDS: Emtricitabin/Tenofovir 200/300 TABLET 1 TAB PO (08:53)
[2024-03-02] MEDS: Thiamine HCL 100 MG TABLET PO (08:53)
[2024-03-02] MEDS: Rilpivirine HCL 25 MG TABLET PO (08:53)
[2024-03-02] MEDS: levETIRAcetam 500 MG TABLET PO ×2 (08:54→20:18)
[2024-03-02] MEDS: Divalproex Sodium Sprinkles 125 MG CAP.DR.SPR 250 MG PO ×3 (08:54→20:18)
[2024-03-02] MEDS: amLODIPine Besylate 5 MG TABLET PO (08:56)
--- NOTE | 2024-03-02 12:21 | HO.PSYCHPN ---
Subjective Subjective Date of Service: 03/02/24 Reason For Visit: F32.9 Subjective Notes: Conditional Voluntary Interim History: The nursing staff reported the patient had been fully compliant with treatment, no changes in his mental status. The social media analyst reported that Seamus Medina has been assessing him. On interview the patient denies new symptoms, waiting for placement. Mental Status Exam Mental Status Exam Patient Appearance: Appropriate Patient Orientation: Person and Situation Level of Consciousness: Awake and Appropriate Patient Behavior: Guarded and Passive Mood Description: Withdrawn Affect Description: Constricted Patient Cognition Impaired: Yes Ability to Follow Directions: Good Speech Pattern: Clear Hallucinations: None Delusions: Not Present Thought Process: Distracted and Slowed Thinking Thought Content: positive for [place] and positive for Poverty of Content Judgement: Fair Diagnostics Vital Signs (24Hr): Vital Signs - 24 hr 03/01/24 19:45 03/02/24 08:00 Temperature 97.8 F 97.5 F Pulse Rate 107 H 102 H Respiratory Rate 18 18 Blood Pressure 125/70 104/62 Pulse Oximetry 97 94 Oxygen Delivery Method Room Air Room Air BMI result Body Mass Index 19.6 Labs 02/10/24 08:00 02/10/24 08:00 Imaging Radiology Impressions: ITS Impressions KUB X-Ray 02/05/24 09:07 IMPRESSION: Large volume of stool throughout the colon. Nonobstructive bowel pattern. Electronically signed by: Hector Way MD 02/05/2024 04:17 PM EDT RP Medications Medications Current Medications Acetaminophen (Acetaminophen 325 Mg Tablet) 650 mg PO Q6H PRN PRN Reason: Pain (Scale Score 1-3) Last Admin: 01/31/24 15:36 Dose: 650 mg Al Hydroxide/Mg Hydroxide (Magnesium Hydrox/Alum Hydrox 30 Ml Oral.Susp) 30 ml PO Q6H PRN PRN Reason: Heartburn/Nausea Last Admin: 11/12/23 06:20 Dose: 30 ml Albuterol Sulfate (Albuterol Sulfate 90 Mcg 8 Gm Inhaler) 2 puff INHALE RQ4H PRN PRN Reason: Wheezing Amlodipine Besylate (Amlodipine Besylate 5 Mg Tablet) 5 mg PO DAILY [facility]; Protocol Last Admin: 03/02/24 08:56 Dose: 5 mg Divalproex Sodium (Divalproex Sodium Sprinkles 125 Mg Cap.Dr.Spr) 250 mg PO TID [facility] Last Admin: 03/02/24 08:54 Dose: 250 mg Emtricitabine/Tenofovir (Emtricitabin/Tenofovir 200/300 Tablet) 1 tab PO DAILY [facility] Last Admin: 03/02/24 08:53 Dose: 1 tab Haloperidol Decanoate (Haloperidol Decanoate 50 Mg/Ml Vial) 100 mg IM Q28D [facility] Last Admin: 02/17/24 20:25 Dose: 100 mg Levetiracetam (Levetiracetam 500 Mg Tablet) 500 mg PO BID [facility] Last Admin: 03/02/24 08:54 Dose: 500 mg Magnesium Hydroxide (Milk Of Magnesia 30 Ml Oral.Susp) 30 ml PO DAILY PRN PRN Reason: Constipation Last Admin: 02/03/24 09:34 Dose: 30 ml Mirtazapine (Mirtazapine 15 Mg Tablet) 15 mg PO BEDTIME [facility] Last Admin: 03/01/24 20:31 Dose: 15 mg Multivitamins/Vitamin C (Multivitamin Tablet) 1 tab PO BEDTIME [facility] Last Admin: 03/01/24 20:31 Dose: 1 tab Nicotine Polacrilex (Nicotine Polacrilex 2 Mg Gum) 4 mg BUCCAL Q2H PRN PRN Reason: Nicotine Cravings Olanzapine (Olanzapine 5 Mg Tablet) 5 mg PO BID@0800,1500 [facility] Last Admin: 03/02/24 08:53 Dose: 5 mg Olanzapine (Olanzapine 10 Mg Vial) 5 mg IM BID@0800,1500 PRN PRN Reason: if refuses 0800/1500 PO zyprexa Last Admin: 10/13/23 14:58 Dose: 5 mg Olanzapine (Olanzapine 10 Mg Tablet) 20 mg PO BEDTIME [facility] Last Admin: 03/01/24 20:31 Dose: 20 mg Polyethylene Glycol (Polyethylene Glycol 3350 17 Gm Powd.Pack) 17 gm PO DAILY PRN PRN Reason: Constipation Last Admin: 02/05/24 21:00 Dose: 17 gm Rilpivirine (Rilpivirine Hcl 25 Mg Tablet) 25 mg PO DAILY [facility] Last Admin: 03/02/24 08:53 Dose: 25 mg Senna (Sennosides 8.6 Mg Tablet) 8.6 mg PO BEDTIME [facility] Last Admin: 03/01/24 20:31 Dose: 8.6 mg Thiamine HCl (Thiamine Hcl 100 Mg Tablet) 100 mg PO DAILY [facility] Last Admin: 03/02/24 08:53 Dose: 100 mg Trazodone HCl (Trazodone Hcl 50 Mg Tablet) 50 mg PO BEDTIME MRX1 [facility] Last Admin: 03/01/24 22:24 Dose: Not Given Allergies Allergies Allergy/AdvReac Type Severity Reaction Status Date / Time No Known Allergies Allergy Unverified 01/28/20 16:07 [No Known Allergies*] Assessment & Plan Assessment & Plan (1) Schizoaffective disorder, bipolar type: Status: Acute Code(s): F25.0 - Schizoaffective disorder, bipolar type Assessment and Plan: 11/01 mildly up - positive mood=- but less irritable than in past visits 11/02 CTP (2) Dementia: Status: Acute Code(s): F03.90 - Unspecified dementia, unspecified severity, without behavioral disturbance, psychotic disturbance, mood disturbance, and anxiety Assessment and Plan: 11/01 ongoing dementia continue with reorientation and distraction prn - (3) Noncompliance: Status: Acute Code(s): Z91.199 - Patient's noncompliance with other medical treatment and regimen due to unspecified reason Assessment and Plan: seems to be taking medication currently - watches nurse crush them and put in ice cream Plan The patient is an elderly male with a past history of schizoaffective disorder, dementia, HIV and other medical problems, chronically mentally ill resident of assisted living facility referred to this facility after he became non compliant with medications with daniella and psychosis. The patient was assessed by crisis and transferring to this facility for psychiatric stabilization. At the moment of the interview the patient was able to contract for safety. Plan 1. Continue with antipsychotics and mood stabilizers. 2. Waiting for placement. Reason for continued inpatient stay Substantial Risk for: inability to function, rapid decompensation and med/psych decompensation Time Spent With Patient Time: Total time managing care of this patient today __20__ minutes.
[2024-03-02 20:00] VITALS: BP 101/69; PULSE 95; RESP 18; TEMP 36.6; O2SAT 97
[2024-03-02] MEDS: OLANZapine 10 MG TABLET 20 MG PO (20:18)
[2024-03-02] MEDS: traZODone HCL 50 MG TABLET PO (20:18)
[2024-03-02] MEDS: Mirtazapine 15 MG TABLET PO (20:18)
[2024-03-02] MEDS: Sennosides 8.6 MG TABLET PO (20:18)
[2024-03-02] MEDS: Multivitamin TABLET 1 TAB PO (20:18)
[2024-03-03 08:00] VITALS: BP 116/71; PULSE 92; RESP 18; TEMP 36.6; O2SAT 97
[2024-03-03] MEDS: amLODIPine Besylate 5 MG TABLET PO (08:32)
[2024-03-03] MEDS: Divalproex Sodium Sprinkles 125 MG CAP.DR.SPR 250 MG PO ×3 (08:32→21:04)
[2024-03-03] MEDS: Rilpivirine HCL 25 MG TABLET PO (08:32)
[2024-03-03] MEDS: OLANZapine 5 MG TABLET PO ×2 (08:32→14:37)
[2024-03-03] MEDS: levETIRAcetam 500 MG TABLET PO ×2 (08:32→21:04)
[2024-03-03] MEDS: Emtricitabin/Tenofovir 200/300 TABLET 1 TAB PO (08:32)
[2024-03-03] MEDS: Thiamine HCL 100 MG TABLET PO (08:32)
--- NOTE | 2024-03-03 08:49 | P.PNPSI_ITS ---
Subjective Subjective Date of Service: 03/03/24 Reason For Visit: F32.9 Subjective Notes: Conditional Voluntary Interim History: Pt slept through the night. no behavioral concerns. He reports doing well, encouraged to attend groups and be more visible during the day. He is taking medications as prescribed. No side effects noted or reported. Review of Systems Review of Systems General: No fevers, malaise, unintentional weight loss HEENT: No blurred vision, diplopia. No sore throat, nasal congestion, rhinorrhea, sinus pain, ear pain Cardiovascular: No chest pain, palpitations, or leg edema Respiratory: No shortness of breath, wheezing, cough GI: No abdominal pain, nausea, vomiting, diarrhea, constipation, melena, hematochezia : No dysuria, hematuria, increased urinary frequency, decreased urinary output MSK: No myalgia, back pain Neuro: No headaches, weakness, paresthesias Skin: No rashes or lesions Yes all other systems are reviewed and are negative and Unobtainable due to mental status Mental Status Exam Mental Status Exam Patient Appearance: Appropriate Patient Orientation: Person and Situation Level of Consciousness: Awake and Appropriate Patient Behavior: Guarded and Passive Mood Description: Withdrawn Affect Description: Constricted Patient Cognition Impaired: Yes Ability to Follow Directions: Good Speech Pattern: Clear Diagnostics Vital Signs (24Hr): Vital Signs - 24 hr 03/02/24 20:00 Temperature 97.8 F Pulse Rate 95 Respiratory Rate 18 Blood Pressure 101/69 Pulse Oximetry 97 Oxygen Delivery Method Room Air BMI result Body Mass Index 19.6 Labs 02/10/24 08:00 02/10/24 08:00 Imaging Radiology Impressions: ITS Impressions KUB X-Ray 02/05/24 09:07 IMPRESSION: Large volume of stool throughout the colon. Nonobstructive bowel pattern. Electronically signed by: Hector Way MD 02/05/2024 04:17 PM EDT RP Medications Medications Current Medications Acetaminophen (Acetaminophen 325 Mg Tablet) 650 mg PO Q6H PRN PRN Reason: Pain (Scale Score 1-3) Last Admin: 01/31/24 15:36 Dose: 650 mg Al Hydroxide/Mg Hydroxide (Magnesium Hydrox/Alum Hydrox 30 Ml Oral.Susp) 30 ml PO Q6H PRN PRN Reason: Heartburn/Nausea Last Admin: 11/12/23 06:20 Dose: 30 ml Albuterol Sulfate (Albuterol Sulfate 90 Mcg 8 Gm Inhaler) 2 puff INHALE RQ4H PRN PRN Reason: Wheezing Amlodipine Besylate (Amlodipine Besylate 5 Mg Tablet) 5 mg PO DAILY [facility]; Protocol Last Admin: 03/03/24 08:32 Dose: 5 mg Divalproex Sodium (Divalproex Sodium Sprinkles 125 Mg Jabari.) 250 mg PO TID [facility] Last Admin: 03/03/24 08:32 Dose: 250 mg Emtricitabine/Tenofovir (Emtricitabin/Tenofovir 200/300 Tablet) 1 tab PO DAILY [facility] Last Admin: 03/03/24 08:32 Dose: 1 tab Haloperidol Decanoate (Haloperidol Decanoate 50 Mg/Ml Vial) 100 mg IM Q28D [facility] Last Admin: 02/17/24 20:25 Dose: 100 mg Levetiracetam (Levetiracetam 500 Mg Tablet) 500 mg PO BID [facility] Last Admin: 03/03/24 08:32 Dose: 500 mg Magnesium Hydroxide (Milk Of Magnesia 30 Ml Oral.Susp) 30 ml PO DAILY PRN PRN Reason: Constipation Last Admin: 02/03/24 09:34 Dose: 30 ml Mirtazapine (Mirtazapine 15 Mg Tablet) 15 mg PO BEDTIME [facility] Last Admin: 03/02/24 20:18 Dose: 15 mg Multivitamins/Vitamin C (Multivitamin Tablet) 1 tab PO BEDTIME [facility] Last Admin: 03/02/24 20:18 Dose: 1 tab Nicotine Polacrilex (Nicotine Polacrilex 2 Mg Gum) 4 mg BUCCAL Q2H PRN PRN Reason: Nicotine Cravings Olanzapine (Olanzapine 5 Mg Tablet) 5 mg PO BID@0800,1500 [facility] Last Admin: 03/03/24 08:32 Dose: 5 mg Olanzapine (Olanzapine 10 Mg Vial) 5 mg IM BID@0800,1500 PRN PRN Reason: if refuses 0800/1500 PO zyprexa Last Admin: 10/13/23 14:58 Dose: 5 mg Olanzapine (Olanzapine 10 Mg Tablet) 20 mg PO BEDTIME [facility] Last Admin: 03/02/24 20:18 Dose: 20 mg Polyethylene Glycol (Polyethylene Glycol 3350 17 Gm Powd.Pack) 17 gm PO DAILY PRN PRN Reason: Constipation Last Admin: 02/05/24 21:00 Dose: 17 gm Rilpivirine (Rilpivirine Hcl 25 Mg Tablet) 25 mg PO DAILY [facility] Last Admin: 03/03/24 08:32 Dose: 25 mg Senna (Sennosides 8.6 Mg Tablet) 8.6 mg PO BEDTIME [facility] Last Admin: 03/02/24 20:18 Dose: 8.6 mg Thiamine HCl (Thiamine Hcl 100 Mg Tablet) 100 mg PO DAILY [facility] Last Admin: 03/03/24 08:32 Dose: 100 mg Trazodone HCl (Trazodone Hcl 50 Mg Tablet) 50 mg PO BEDTIME MRX1 [facility] Last Admin: 03/02/24 22:11 Dose: Not Given Allergies Allergies Allergy/AdvReac Type Severity Reaction Status Date / Time No Known Allergies Allergy Unverified 01/28/20 16:07 [No Known Allergies*] Assessment & Plan Assessment & Plan (1) Schizoaffective disorder, bipolar type: Status: Acute Code(s): F25.0 - Schizoaffective disorder, bipolar type Assessment and Plan: 11/01 mildly up - positive mood=- but less irritable than in past visits 11/02 CTP (2) Dementia: Status: Acute Code(s): F03.90 - Unspecified dementia, unspecified severity, without behavioral disturbance, psychotic disturbance, mood disturbance, and anxiety Assessment and Plan: 11/01 ongoing dementia continue with reorientation and distraction prn - (3) Noncompliance: Status: Acute Code(s): Z91.199 - Patient's noncompliance with other medical treatment and regimen due to unspecified reason Assessment and Plan: seems to be taking medication currently - watches nurse crush them and put in ice cream Plan The patient is an elderly male with a past history of schizoaffective disorder, dementia, HIV and other medical problems, chronically mentally ill resident of assisted living facility referred to this facility after he became non compliant with medications with daniella and psychosis. The patient was assessed by crisis and transferring to this facility for psychiatric stabilization. At the moment of the interview the patient was able to contract for safety. Plan 1. Continue with antipsychotics and mood stabilizers. 2. Waiting for placement. Reason for continued inpatient stay Substantial Risk for: inability to function Time Spent With Patient Time: Total time managing care of this patient today ____ minutes.
[2024-03-03 20:00] VITALS: BP 103/58; PULSE 91; RESP 18; TEMP 36.3; O2SAT 97
[2024-03-03] MEDS: traZODone HCL 50 MG TABLET PO (21:04)
[2024-03-03] MEDS: Sennosides 8.6 MG TABLET PO (21:04)
[2024-03-03] MEDS: OLANZapine 10 MG TABLET 20 MG PO (21:04)
[2024-03-03] MEDS: Mirtazapine 15 MG TABLET PO (21:04)
[2024-03-03] MEDS: Multivitamin TABLET 1 TAB PO (21:04)
[2024-03-04 07:55] VITALS: BP 118/84; PULSE 88; RESP 18; TEMP 36.6; O2SAT 95
[2024-03-04] MEDS: OLANZapine 5 MG TABLET PO ×2 (08:04→14:48)
[2024-03-04] MEDS: Divalproex Sodium Sprinkles 125 MG CAP.DR.SPR 250 MG PO ×3 (08:04→20:20)
[2024-03-04] MEDS: Emtricitabin/Tenofovir 200/300 TABLET 1 TAB PO (08:04)
[2024-03-04] MEDS: levETIRAcetam 500 MG TABLET PO ×2 (08:04→20:20)
[2024-03-04] MEDS: amLODIPine Besylate 5 MG TABLET PO (08:05)
[2024-03-04] MEDS: Rilpivirine HCL 25 MG TABLET PO (08:05)
[2024-03-04] MEDS: Thiamine HCL 100 MG TABLET PO (08:05)
--- NOTE | 2024-03-04 11:42 | HO.PSYCHPN ---
Subjective Subjective Date of Service: 03/04/24 Reason For Visit: F32.9 Subjective Notes: Conditional Voluntary Interim History: Pt slept through the night. no behavioral concerns. He reports doing well, encouraged to attend groups and be more visible during the day. He is taking medications as prescribed. No side effects noted or reported. Review of Systems Review of Systems General: No fevers, malaise, unintentional weight loss HEENT: No blurred vision, diplopia. No sore throat, nasal congestion, rhinorrhea, sinus pain, ear pain Cardiovascular: No chest pain, palpitations, or leg edema Respiratory: No shortness of breath, wheezing, cough GI: No abdominal pain, nausea, vomiting, diarrhea, constipation, melena, hematochezia : No dysuria, hematuria, increased urinary frequency, decreased urinary output MSK: No myalgia, back pain Neuro: No headaches, weakness, paresthesias Skin: No rashes or lesions Yes all other systems are reviewed and are negative and Unobtainable due to mental status Mental Status Exam Mental Status Exam Patient Appearance: Appropriate Patient Orientation: Person and Situation Level of Consciousness: Awake and Appropriate Patient Behavior: Guarded and Passive Mood Description: Withdrawn Affect Description: Constricted Patient Cognition Impaired: Yes Ability to Follow Directions: Good Speech Pattern: Clear Diagnostics Vital Signs (24Hr): Vital Signs - 24 hr 03/03/24 20:00 03/04/24 07:55 Temperature 97.3 F 97.9 F Pulse Rate 91 88 Respiratory Rate 18 18 Blood Pressure 103/58 L 118/84 Pulse Oximetry 97 95 Oxygen Delivery Method Room Air Room Air BMI result Body Mass Index 19.6 Labs 02/10/24 08:00 02/10/24 08:00 Imaging Radiology Impressions: ITS Impressions [facility] X-Ray 02/05/24 09:07 IMPRESSION: Large volume of stool throughout the colon. Nonobstructive bowel pattern. Electronically signed by: Hector Way MD 02/05/2024 04:17 PM EDT Medications Medications Current Medications Acetaminophen (Acetaminophen 325 Mg Tablet) 650 mg PO Q6H PRN PRN Reason: Pain (Scale Score 1-3) Last Admin: 01/31/24 15:36 Dose: 650 mg Al Hydroxide/Mg Hydroxide (Magnesium Hydrox/Alum Hydrox 30 Ml Oral.Susp) 30 ml PO Q6H PRN PRN Reason: Heartburn/Nausea Last Admin: 11/12/23 06:20 Dose: 30 ml Albuterol Sulfate (Albuterol Sulfate 90 Mcg 8 Gm Inhaler) 2 puff INHALE RQ4H PRN PRN Reason: Wheezing Amlodipine Besylate (Amlodipine Besylate 5 Mg Tablet) 5 mg PO DAILY [facility]; Protocol Last Admin: 03/04/24 08:05 Dose: 5 mg Divalproex Sodium (Divalproex Sodium Sprinkles 125 Mg ) 250 mg PO TID [facility] Last Admin: 03/04/24 08:04 Dose: 250 mg Emtricitabine/Tenofovir (Emtricitabin/Tenofovir 200/300 Tablet) 1 tab PO DAILY [facility] Last Admin: 03/04/24 08:04 Dose: 1 tab Haloperidol Decanoate (Haloperidol Decanoate 50 Mg/Ml Vial) 100 mg IM Q28D [facility] Last Admin: 02/17/24 20:25 Dose: 100 mg Levetiracetam (Levetiracetam 500 Mg Tablet) 500 mg PO BID [facility] Last Admin: 03/04/24 08:04 Dose: 500 mg Magnesium Hydroxide (Milk Of Magnesia 30 Ml Oral.Susp) 30 ml PO DAILY PRN PRN Reason: Constipation Last Admin: 02/03/24 09:34 Dose: 30 ml Mirtazapine (Mirtazapine 15 Mg Tablet) 15 mg PO BEDTIME [facility] Last Admin: 03/03/24 21:04 Dose: 15 mg Multivitamins/Vitamin C (Multivitamin Tablet) 1 tab PO BEDTIME [facility] Last Admin: 03/03/24 21:04 Dose: 1 tab Nicotine Polacrilex (Nicotine Polacrilex 2 Mg Gum) 4 mg BUCCAL Q2H PRN PRN Reason: Nicotine Cravings Olanzapine (Olanzapine 5 Mg Tablet) 5 mg PO BID@0800,1500 [facility] Last Admin: 03/04/24 08:04 Dose: 5 mg Olanzapine (Olanzapine 10 Mg Vial) 5 mg IM BID@0800,1500 PRN PRN Reason: if refuses 0800/1500 PO zyprexa Last Admin: 10/13/23 14:58 Dose: 5 mg Olanzapine (Olanzapine 10 Mg Tablet) 20 mg PO BEDTIME [facility] Last Admin: 03/03/24 21:04 Dose: 20 mg Polyethylene Glycol (Polyethylene Glycol 3350 17 Gm Powd.Pack) 17 gm PO DAILY PRN PRN Reason: Constipation Last Admin: 02/05/24 21:00 Dose: 17 gm Rilpivirine (Rilpivirine Hcl 25 Mg Tablet) 25 mg PO DAILY [facility] Last Admin: 03/04/24 08:05 Dose: 25 mg Senna (Sennosides 8.6 Mg Tablet) 8.6 mg PO BEDTIME [facility] Last Admin: 03/03/24 21:04 Dose: 8.6 mg Thiamine HCl (Thiamine Hcl 100 Mg Tablet) 100 mg PO DAILY [facility] Last Admin: 03/04/24 08:05 Dose: 100 mg Trazodone HCl (Trazodone Hcl 50 Mg Tablet) 50 mg PO BEDTIME MRX1 [facility] Last Admin: 03/03/24 21:06 Dose: Not Given Allergies Allergies Allergy/AdvReac Type Severity Reaction Status Date / Time No Known Allergies Allergy Unverified 01/28/20 16:07 [No Known Allergies*] Assessment & Plan Assessment & Plan (1) Schizoaffective disorder, bipolar type: Status: Acute Code(s): F25.0 - Schizoaffective disorder, bipolar type Assessment and Plan: 11/01 mildly up - positive mood=- but less irritable than in past visits 11/02 CTP (2) Dementia: Status: Acute Code(s): F03.90 - Unspecified dementia, unspecified severity, without behavioral disturbance, psychotic disturbance, mood disturbance, and anxiety Assessment and Plan: 11/01 ongoing dementia continue with reorientation and distraction prn - (3) Noncompliance: Status: Acute Code(s): Z91.199 - Patient's noncompliance with other medical treatment and regimen due to unspecified reason Assessment and Plan: seems to be taking medication currently - watches nurse crush them and put in ice cream Plan The patient is an elderly male with a past history of schizoaffective disorder, dementia, HIV and other medical problems, chronically mentally ill resident of assisted living facility referred to this facility after he became non compliant with medications with daniella and psychosis. The patient was assessed by crisis and transferring to this facility for psychiatric stabilization. At the moment of the interview the patient was able to contract for safety. Plan 1. Continue with antipsychotics and mood stabilizers. 2. Waiting for placement. Reason for continued inpatient stay Substantial Risk for: inability to function Time Spent With Patient Time: Total time managing care of this patient today ____ minutes.
[2024-03-04 20:00] VITALS: BP 112/82; PULSE 91; RESP 18; TEMP 36.4; O2SAT 94
[2024-03-04] MEDS: traZODone HCL 50 MG TABLET PO (20:20)
[2024-03-04] MEDS: Sennosides 8.6 MG TABLET PO (20:20)
[2024-03-04] MEDS: Multivitamin TABLET 1 TAB PO (20:20)
[2024-03-04] MEDS: Mirtazapine 15 MG TABLET PO (20:20)
[2024-03-04] MEDS: OLANZapine 10 MG TABLET 20 MG PO (20:20)
[2024-03-05 07:55] VITALS: BP 110/80; PULSE 92; RESP 18; TEMP 36.6; O2SAT 98
[2024-03-05] MEDS: levETIRAcetam 500 MG TABLET PO ×2 (08:12→20:02)
[2024-03-05] MEDS: amLODIPine Besylate 5 MG TABLET PO (08:12)
[2024-03-05] MEDS: Divalproex Sodium Sprinkles 125 MG CAP.DR.SPR 250 MG PO ×3 (08:12→20:03)
[2024-03-05] MEDS: Emtricitabin/Tenofovir 200/300 TABLET 1 TAB PO (08:12)
[2024-03-05] MEDS: Thiamine HCL 100 MG TABLET PO (08:12)
[2024-03-05] MEDS: Rilpivirine HCL 25 MG TABLET PO (08:12)
[2024-03-05] MEDS: OLANZapine 5 MG TABLET PO ×2 (08:12→14:42)
--- NOTE | 2024-03-05 18:16 | P.PNPSI_ITS ---
Subjective Subjective Date of Service: 03/05/24 Reason For Visit: F32.9 Interim History: Pt slept through the night. no behavioral concerns. He reports doing well, encouraged to attend groups and be more visible during the day. He is taking medications as prescribed. No side effects noted or reported. Review of Systems Review of Systems General: No fevers, malaise, unintentional weight loss HEENT: No blurred vision, diplopia. No sore throat, nasal congestion, rhinorrhea, sinus pain, ear pain Cardiovascular: No chest pain, palpitations, or leg edema Respiratory: No shortness of breath, wheezing, cough GI: No abdominal pain, nausea, vomiting, diarrhea, constipation, melena, hematochezia : No dysuria, hematuria, increased urinary frequency, decreased urinary output MSK: No myalgia, back pain Neuro: No headaches, weakness, paresthesias Skin: No rashes or lesions Yes all other systems are reviewed and are negative and Unobtainable due to mental status Mental Status Exam Mental Status Exam Narrative: pt more talkative, denies complaints; slightly brighter Self-care is poor. In bed. Patient Appearance: Appropriate Patient Orientation: Person and Situation Level of Consciousness: Awake and Appropriate Patient Behavior: Guarded and Passive Mood Description: Withdrawn Affect Description: Constricted Patient Cognition Impaired: Yes Ability to Follow Directions: Good Speech Pattern: Clear Diagnostics Vital Signs (24Hr): Vital Signs - 24 hr 03/04/24 20:00 03/05/24 07:55 Temperature 97.5 F 97.9 F Pulse Rate 91 92 Respiratory Rate 18 18 Blood Pressure 112/82 110/80 Pulse Oximetry 94 98 Oxygen Delivery Method Room Air Room Air BMI result Body Mass Index 20.0 Labs 02/10/24 08:00 02/10/24 08:00 Imaging Radiology Impressions: ITS Impressions [facility] X-Ray 02/05/24 09:07 IMPRESSION: Large volume of stool throughout the colon. Nonobstructive bowel pattern. Electronically signed by: Hector Way MD 02/05/2024 04:17 PM EDT Medications Medications Current Medications Acetaminophen (Acetaminophen 325 Mg Tablet) 650 mg PO Q6H PRN PRN Reason: Pain (Scale Score 1-3) Last Admin: 01/31/24 15:36 Dose: 650 mg Al Hydroxide/Mg Hydroxide (Magnesium Hydrox/Alum Hydrox 30 Ml Oral.Susp) 30 ml PO Q6H PRN PRN Reason: Heartburn/Nausea Last Admin: 11/12/23 06:20 Dose: 30 ml Albuterol Sulfate (Albuterol Sulfate 90 Mcg 8 Gm Inhaler) 2 puff INHALE RQ4H PRN PRN Reason: Wheezing Amlodipine Besylate (Amlodipine Besylate 5 Mg Tablet) 5 mg PO DAILY [facility]; Protocol Last Admin: 03/05/24 08:12 Dose: 5 mg Divalproex Sodium (Divalproex Sodium Sprinkles 125 Mg Jabari.) 250 mg PO TID [facility] Last Admin: 03/05/24 14:42 Dose: 250 mg Emtricitabine/Tenofovir (Emtricitabin/Tenofovir 200/300 Tablet) 1 tab PO DAILY [facility] Last Admin: 03/05/24 08:12 Dose: 1 tab Haloperidol Decanoate (Haloperidol Decanoate 50 Mg/Ml Vial) 100 mg IM Q28D [facility] Last Admin: 02/17/24 20:25 Dose: 100 mg Levetiracetam (Levetiracetam 500 Mg Tablet) 500 mg PO BID [facility] Last Admin: 03/05/24 08:12 Dose: 500 mg Magnesium Hydroxide (Milk Of Magnesia 30 Ml Oral.Susp) 30 ml PO DAILY PRN PRN Reason: Constipation Last Admin: 02/03/24 09:34 Dose: 30 ml Mirtazapine (Mirtazapine 15 Mg Tablet) 15 mg PO BEDTIME [facility] Last Admin: 03/04/24 20:20 Dose: 15 mg Multivitamins/Vitamin C (Multivitamin Tablet) 1 tab PO BEDTIME [facility] Last Admin: 03/04/24 20:20 Dose: 1 tab Nicotine Polacrilex (Nicotine Polacrilex 2 Mg Gum) 4 mg BUCCAL Q2H PRN PRN Reason: Nicotine Cravings Olanzapine (Olanzapine 5 Mg Tablet) 5 mg PO BID@0800,1500 [facility] Last Admin: 03/05/24 14:42 Dose: 5 mg Olanzapine (Olanzapine 10 Mg Vial) 5 mg IM BID@0800,1500 PRN PRN Reason: if refuses 0800/1500 PO zyprexa Last Admin: 10/13/23 14:58 Dose: 5 mg Olanzapine (Olanzapine 10 Mg Tablet) 20 mg PO BEDTIME [facility] Last Admin: 10/23/24 20:20 Dose: 20 mg Polyethylene Glycol (Polyethylene Glycol 3350 17 Gm Powd.Pack) 17 gm PO DAILY PRN PRN Reason: Constipation Last Admin: 02/05/24 21:00 Dose: 17 gm Rilpivirine (Rilpivirine Hcl 25 Mg Tablet) 25 mg PO DAILY [facility] Last Admin: 03/05/24 08:12 Dose: 25 mg Senna (Sennosides 8.6 Mg Tablet) 8.6 mg PO BEDTIME [facility] Last Admin: 03/04/24 20:20 Dose: 8.6 mg Thiamine HCl (Thiamine Hcl 100 Mg Tablet) 100 mg PO DAILY [facility] Last Admin: 03/05/24 08:12 Dose: 100 mg Trazodone HCl (Trazodone Hcl 50 Mg Tablet) 50 mg PO BEDTIME MRX1 [facility] Last Admin: 03/04/24 23:15 Dose: Not Given Allergies Allergies Allergy/AdvReac Type Severity Reaction Status Date / Time No Known Allergies Allergy Unverified 01/28/20 16:07 [No Known Allergies*] Assessment & Plan Assessment & Plan (1) Schizoaffective disorder, bipolar type: Status: Acute Code(s): F25.0 - Schizoaffective disorder, bipolar type Assessment and Plan: 11/01 mildly up - positive mood=- but less irritable than in past visits 11/02 CTP (2) Dementia: Status: Acute Code(s): F03.90 - Unspecified dementia, unspecified severity, without behavioral disturbance, psychotic disturbance, mood disturbance, and anxiety Assessment and Plan: 11/01 ongoing dementia continue with reorientation and distraction prn - (3) Noncompliance: Status: Acute Code(s): Z91.199 - Patient's noncompliance with other medical treatment and regimen due to unspecified reason Assessment and Plan: seems to be taking medication currently - watches nurse crush them and put in ice cream Plan The patient is an elderly male with a past history of schizoaffective disorder, dementia, HIV and other medical problems, chronically mentally ill resident of assisted living facility referred to this facility after he became non compliant with medications with daniella and psychosis. The patient was assessed by crisis and transferring to this facility for psychiatric stabilization. At the moment of the interview the patient was able to contract for safety. Plan 1. Continue with antipsychotics and mood stabilizers. 2. Waiting for placement. Reason for continued inpatient stay Substantial Risk for: stable for discharge Time Spent With Patient Time: Total time managing care of this patient today ____ minutes.
[2024-03-05 20:00] VITALS: BP 104/62; PULSE 91; RESP 16; TEMP 36.4; O2SAT 92
[2024-03-05] MEDS: Sennosides 8.6 MG TABLET PO (20:03)
[2024-03-05] MEDS: OLANZapine 10 MG TABLET 20 MG PO (20:03)
[2024-03-05] MEDS: Mirtazapine 15 MG TABLET PO (20:03)
[2024-03-05] MEDS: traZODone HCL 50 MG TABLET PO (20:03)
[2024-03-06 09:57] VITALS: BP 118/71; PULSE 89; RESP 16; TEMP 36.6; O2SAT 95
[2024-03-06] MEDS: levETIRAcetam 500 MG TABLET PO ×2 (10:00→20:26)
[2024-03-06] MEDS: Thiamine HCL 100 MG TABLET PO (10:00)
[2024-03-06] MEDS: Divalproex Sodium Sprinkles 125 MG CAP.DR.SPR 250 MG PO ×3 (10:00→20:26)
[2024-03-06] MEDS: Emtricitabin/Tenofovir 200/300 TABLET 1 TAB PO (10:00)
[2024-03-06] MEDS: amLODIPine Besylate 5 MG TABLET PO (10:00)
[2024-03-06] MEDS: OLANZapine 5 MG TABLET PO ×2 (10:00→16:01)
[2024-03-06] MEDS: Rilpivirine HCL 25 MG TABLET PO (10:00)
--- NOTE | 2024-03-06 18:34 | HO.PSYCHPN ---
Subjective Subjective Date of Service: 03/06/24 Reason For Visit: F32.9 Subjective Notes: Conditional Voluntary Interim History: Pt slept through the night. no behavioral concerns. He reports doing well, encouraged to attend groups and be more visible during the day. He is taking medications as prescribed. No side effects noted or reported. Review of Systems Review of Systems General: No fevers, malaise, unintentional weight loss HEENT: No blurred vision, diplopia. No sore throat, nasal congestion, rhinorrhea, sinus pain, ear pain Cardiovascular: No chest pain, palpitations, or leg edema Respiratory: No shortness of breath, wheezing, cough GI: No abdominal pain, nausea, vomiting, diarrhea, constipation, melena, hematochezia : No dysuria, hematuria, increased urinary frequency, decreased urinary output MSK: No myalgia, back pain Neuro: No headaches, weakness, paresthesias Skin: No rashes or lesions Yes all other systems are reviewed and are negative and Unobtainable due to mental status Mental Status Exam Mental Status Exam Patient Appearance: Appropriate Patient Orientation: Person and Situation Level of Consciousness: Awake and Appropriate Patient Behavior: Guarded and Passive Mood Description: Withdrawn Affect Description: Constricted Patient Cognition Impaired: Yes Ability to Follow Directions: Good Speech Pattern: Clear Diagnostics Vital Signs (24Hr): Vital Signs - 24 hr 03/05/24 20:00 03/06/24 09:57 Temperature 97.5 F 97.9 F Pulse Rate 91 89 Respiratory Rate 16 16 Blood Pressure 104/62 118/71 Pulse Oximetry 92 95 Oxygen Delivery Method Room Air Room Air BMI result Body Mass Index 20.0 Labs 02/10/24 08:00 02/10/24 08:00 Imaging Radiology Impressions: ITS Impressions [facility] X-Ray 02/05/24 09:07 IMPRESSION: Large volume of stool throughout the colon. Nonobstructive bowel pattern. Electronically signed by: Hector Way MD 02/05/2024 04:17 PM EDT Medications Medications Current Medications Acetaminophen (Acetaminophen 325 Mg Tablet) 650 mg PO Q6H PRN PRN Reason: Pain (Scale Score 1-3) Last Admin: 01/31/24 15:36 Dose: 650 mg Al Hydroxide/Mg Hydroxide (Magnesium Hydrox/Alum Hydrox 30 Ml Oral.Susp) 30 ml PO Q6H PRN PRN Reason: Heartburn/Nausea Last Admin: 11/12/23 06:20 Dose: 30 ml Albuterol Sulfate (Albuterol Sulfate 90 Mcg 8 Gm Inhaler) 2 puff INHALE RQ4H PRN PRN Reason: Wheezing Amlodipine Besylate (Amlodipine Besylate 5 Mg Tablet) 5 mg PO DAILY [facility]; Protocol Last Admin: 03/06/24 10:00 Dose: 5 mg Divalproex Sodium (Divalproex Sodium Sprinkles 125 Mg ) 250 mg PO TID [facility] Last Admin: 03/06/24 16:01 Dose: 250 mg Emtricitabine/Tenofovir (Emtricitabin/Tenofovir 200/300 Tablet) 1 tab PO DAILY [facility] Last Admin: 03/06/24 10:00 Dose: 1 tab Haloperidol Decanoate (Haloperidol Decanoate 50 Mg/Ml Vial) 100 mg IM Q28D [facility] Last Admin: 02/17/24 20:25 Dose: 100 mg Levetiracetam (Levetiracetam 500 Mg Tablet) 500 mg PO BID [facility] Last Admin: 03/06/24 10:00 Dose: 500 mg Magnesium Hydroxide (Milk Of Magnesia 30 Ml Oral.Susp) 30 ml PO DAILY PRN PRN Reason: Constipation Last Admin: 02/03/24 09:34 Dose: 30 ml Mirtazapine (Mirtazapine 15 Mg Tablet) 15 mg PO BEDTIME [facility] Last Admin: 03/05/24 20:03 Dose: 15 mg Multivitamins/Vitamin C (Multivitamin Tablet) 1 tab PO BEDTIME [facility] Last Admin: 03/05/24 20:06 Dose: Not Given Nicotine Polacrilex (Nicotine Polacrilex 2 Mg Gum) 4 mg BUCCAL Q2H PRN PRN Reason: Nicotine Cravings Olanzapine (Olanzapine 5 Mg Tablet) 5 mg PO BID@0800,1500 [facility] Last Admin: 03/06/24 16:01 Dose: 5 mg Olanzapine (Olanzapine 10 Mg Vial) 5 mg IM BID@0800,1500 PRN PRN Reason: if refuses 0800/1500 PO zyprexa Last Admin: 10/13/23 14:58 Dose: 5 mg Olanzapine (Olanzapine 10 Mg Tablet) 20 mg PO BEDTIME [facility] Last Admin: 03/05/24 20:03 Dose: 20 mg Polyethylene Glycol (Polyethylene Glycol 3350 17 Gm Powd.Pack) 17 gm PO DAILY PRN PRN Reason: Constipation Last Admin: 02/05/24 21:00 Dose: 17 gm Rilpivirine (Rilpivirine Hcl 25 Mg Tablet) 25 mg PO DAILY [facility] Last Admin: 03/06/24 10:00 Dose: 25 mg Senna (Sennosides 8.6 Mg Tablet) 8.6 mg PO BEDTIME [facility] Last Admin: 03/05/24 20:03 Dose: 8.6 mg Thiamine HCl (Thiamine Hcl 100 Mg Tablet) 100 mg PO DAILY [facility] Last Admin: 03/06/24 10:00 Dose: 100 mg Trazodone HCl (Trazodone Hcl 50 Mg Tablet) 50 mg PO BEDTIME MRX1 [facility] Last Admin: 03/05/24 22:25 Dose: Not Given Allergies Allergies Allergy/AdvReac Type Severity Reaction Status Date / Time No Known Allergies Allergy Unverified 01/28/20 16:07 [No Known Allergies*] Assessment & Plan Assessment & Plan (1) Schizoaffective disorder, bipolar type: Status: Acute Code(s): F25.0 - Schizoaffective disorder, bipolar type Assessment and Plan: 11/01 mildly up - positive mood=- but less irritable than in past visits 11/02 CTP (2) Dementia: Status: Acute Code(s): F03.90 - Unspecified dementia, unspecified severity, without behavioral disturbance, psychotic disturbance, mood disturbance, and anxiety Assessment and Plan: 11/01 ongoing dementia continue with reorientation and distraction prn - (3) Noncompliance: Status: Acute Code(s): Z91.199 - Patient's noncompliance with other medical treatment and regimen due to unspecified reason Assessment and Plan: seems to be taking medication currently - watches nurse crush them and put in ice cream Plan The patient is an elderly male with a past history of schizoaffective disorder, dementia, HIV and other medical problems, chronically mentally ill resident of assisted living facility referred to this facility after he became non compliant with medications with daniella and psychosis. The patient was assessed by crisis and transferring to this facility for psychiatric stabilization. At the moment of the interview the patient was able to contract for safety. Plan 1. Continue with antipsychotics and mood stabilizers. 2. Waiting for placement. Reason for continued inpatient stay Substantial Risk for: inability to function Time Spent With Patient Time: Total time managing care of this patient today ____ minutes.
[2024-03-06 20:00] VITALS: BP 137/79; PULSE 102; RESP 16; TEMP 36.4; O2SAT 95
[2024-03-06] MEDS: Mirtazapine 15 MG TABLET PO (20:26)
[2024-03-06] MEDS: OLANZapine 10 MG TABLET 20 MG PO (20:26)
[2024-03-06] MEDS: traZODone HCL 50 MG TABLET PO (20:26)
[2024-03-06] MEDS: Sennosides 8.6 MG TABLET PO (20:27)
[2024-03-07 08:00] VITALS: BP 122/78; PULSE 87; RESP 18; TEMP 36.6; O2SAT 97
[2024-03-07] MEDS: OLANZapine 5 MG TABLET PO ×2 (08:05→14:49)
[2024-03-07] MEDS: Rilpivirine HCL 25 MG TABLET PO (08:05)
[2024-03-07] MEDS: Thiamine HCL 100 MG TABLET PO (08:05)
[2024-03-07] MEDS: Emtricitabin/Tenofovir 200/300 TABLET 1 TAB PO (08:05)
[2024-03-07] MEDS: Divalproex Sodium Sprinkles 125 MG CAP.DR.SPR 250 MG PO ×3 (08:05→20:38)
[2024-03-07] MEDS: amLODIPine Besylate 5 MG TABLET PO (08:05)
[2024-03-07] MEDS: levETIRAcetam 500 MG TABLET PO ×2 (08:05→20:38)
[2024-03-07 20:00] VITALS: BP 158/93; PULSE 140; RESP 16; TEMP 36.3; O2SAT 97
--- NOTE | 2024-03-07 20:11 | P.PNPSI_ITS ---
Subjective Subjective Date of Service: 03/07/24 Reason For Visit: F32.9 Interim History: Pt slept through the night. no behavioral concerns. He reports doing well, encouraged to attend groups and be more visible during the day. He is taking medications as prescribed. No side effects noted or reported. Review of Systems Review of Systems General: No fevers, malaise, unintentional weight loss HEENT: No blurred vision, diplopia. No sore throat, nasal congestion, rhinorrhea, sinus pain, ear pain Cardiovascular: No chest pain, palpitations, or leg edema Respiratory: No shortness of breath, wheezing, cough GI: No abdominal pain, nausea, vomiting, diarrhea, constipation, melena, hematochezia : No dysuria, hematuria, increased urinary frequency, decreased urinary output MSK: No myalgia, back pain Neuro: No headaches, weakness, paresthesias Skin: No rashes or lesions Yes all other systems are reviewed and are negative and Unobtainable due to mental status Mental Status Exam Mental Status Exam Narrative: pt more talkative, denies complaints; slightly brighter Self-care is poor. In bed. Patient Appearance: Appropriate Patient Orientation: Person and Situation Level of Consciousness: Awake and Appropriate Patient Behavior: Guarded and Passive Mood Description: Withdrawn Affect Description: Constricted Patient Cognition Impaired: Yes Ability to Follow Directions: Good Speech Pattern: Clear Diagnostics Vital Signs (24Hr): Vital Signs - 24 hr 03/07/24 08:00 Temperature 97.9 F Pulse Rate 87 Respiratory Rate 18 Blood Pressure 122/78 Pulse Oximetry 97 Oxygen Delivery Method Room Air BMI result Body Mass Index 20.0 Labs 02/10/24 08:00 02/10/24 08:00 Imaging Radiology Impressions: ITS Impressions KUB X-Ray 02/05/24 09:07 IMPRESSION: Large volume of stool throughout the colon. Nonobstructive bowel pattern. Electronically signed by: Hector Way MD 02/05/2024 04:17 PM EDT RP Medications Medications Current Medications Acetaminophen (Acetaminophen 325 Mg Tablet) 650 mg PO Q6H PRN PRN Reason: Pain (Scale Score 1-3) Last Admin: 01/31/24 15:36 Dose: 650 mg Al Hydroxide/Mg Hydroxide (Magnesium Hydrox/Alum Hydrox 30 Ml Oral.Susp) 30 ml PO Q6H PRN PRN Reason: Heartburn/Nausea Last Admin: 11/12/23 06:20 Dose: 30 ml Albuterol Sulfate (Albuterol Sulfate 90 Mcg 8 Gm Inhaler) 2 puff INHALE RQ4H PRN PRN Reason: Wheezing Amlodipine Besylate (Amlodipine Besylate 5 Mg Tablet) 5 mg PO DAILY [facility]; Protocol Last Admin: 03/07/24 08:05 Dose: 5 mg Divalproex Sodium (Divalproex Sodium Sprinkles 125 Mg ) 250 mg PO TID [facility] Last Admin: 03/07/24 14:49 Dose: 250 mg Emtricitabine/Tenofovir (Emtricitabin/Tenofovir 200/300 Tablet) 1 tab PO DAILY [facility] Last Admin: 03/07/24 08:05 Dose: 1 tab Haloperidol Decanoate (Haloperidol Decanoate 50 Mg/Ml Vial) 100 mg IM Q28D [facility] Last Admin: 02/17/24 20:25 Dose: 100 mg Levetiracetam (Levetiracetam 500 Mg Tablet) 500 mg PO BID [facility] Last Admin: 03/07/24 08:05 Dose: 500 mg Magnesium Hydroxide (Milk Of Magnesia 30 Ml Oral.Susp) 30 ml PO DAILY PRN PRN Reason: Constipation Last Admin: 02/03/24 09:34 Dose: 30 ml Mirtazapine (Mirtazapine 15 Mg Tablet) 15 mg PO BEDTIME [facility] Last Admin: 03/06/24 20:26 Dose: 15 mg Multivitamins/Vitamin C (Multivitamin Tablet) 1 tab PO BEDTIME [facility] Last Admin: 03/06/24 20:27 Dose: Not Given Nicotine Polacrilex (Nicotine Polacrilex 2 Mg Gum) 4 mg BUCCAL Q2H PRN PRN Reason: Nicotine Cravings Olanzapine (Olanzapine 5 Mg Tablet) 5 mg PO BID@0800,1500 [facility] Last Admin: 03/07/24 14:49 Dose: 5 mg Olanzapine (Olanzapine 10 Mg Vial) 5 mg IM BID@0800,1500 PRN PRN Reason: if refuses 0800/1500 PO zyprexa Last Admin: 10/13/23 14:58 Dose: 5 mg Olanzapine (Olanzapine 10 Mg Tablet) 20 mg PO BEDTIME [facility] Last Admin: 03/06/24 20:26 Dose: 20 mg Polyethylene Glycol (Polyethylene Glycol 3350 17 Gm Powd.Pack) 17 gm PO DAILY PRN PRN Reason: Constipation Last Admin: 02/05/24 21:00 Dose: 17 gm Rilpivirine (Rilpivirine Hcl 25 Mg Tablet) 25 mg PO DAILY [facility] Last Admin: 03/07/24 08:05 Dose: 25 mg Senna (Sennosides 8.6 Mg Tablet) 8.6 mg PO BEDTIME [facility] Last Admin: 03/06/24 20:27 Dose: 8.6 mg Thiamine HCl (Thiamine Hcl 100 Mg Tablet) 100 mg PO DAILY [facility] Last Admin: 03/07/24 08:05 Dose: 100 mg Trazodone HCl (Trazodone Hcl 50 Mg Tablet) 50 mg PO BEDTIME MRX1 [facility] Last Admin: 03/06/24 21:51 Dose: Not Given Allergies Allergies Allergy/AdvReac Type Severity Reaction Status Date / Time No Known Allergies Allergy Unverified 01/28/20 16:07 [No Known Allergies*] Assessment & Plan Assessment & Plan (1) Schizoaffective disorder, bipolar type: Status: Acute Code(s): F25.0 - Schizoaffective disorder, bipolar type Assessment and Plan: 11/01 mildly up - positive mood=- but less irritable than in past visits 11/02 CTP (2) Dementia: Status: Acute Code(s): F03.90 - Unspecified dementia, unspecified severity, without behavioral disturbance, psychotic disturbance, mood disturbance, and anxiety Assessment and Plan: 11/01 ongoing dementia continue with reorientation and distraction prn - (3) Noncompliance: Status: Acute Code(s): Z91.199 - Patient's noncompliance with other medical treatment and regimen due to unspecified reason Assessment and Plan: seems to be taking medication currently - watches nurse crush them and put in ice cream Plan The patient is an elderly male with a past history of schizoaffective disorder, dementia, HIV and other medical problems, chronically mentally ill resident of assisted living facility referred to this facility after he became non compliant with medications with daniella and psychosis. The patient was assessed by crisis and transferring to this facility for psychiatric stabilization. At the moment of the interview the patient was able to contract for safety. Plan 1. Continue with antipsychotics and mood stabilizers. 2. Waiting for placement. Reason for continued inpatient stay Substantial Risk for: inability to function Time Spent With Patient Time: Total time managing care of this patient today ____ minutes.
[2024-03-07] MEDS: Sennosides 8.6 MG TABLET PO (20:38)
[2024-03-07] MEDS: Mirtazapine 15 MG TABLET PO (20:38)
[2024-03-07] MEDS: traZODone HCL 50 MG TABLET PO ×2 (20:38→22:06)
[2024-03-07] MEDS: OLANZapine 10 MG TABLET 20 MG PO (20:38)
[2024-03-07 21:00] VITALS: BP 157/80; PULSE 88; RESP 18; O2SAT 97
[2024-03-07 22:30] VITALS: BP 111/79; PULSE 100; RESP 18; O2SAT 97
[2024-03-08 08:00] VITALS: BP 109/71; PULSE 107; RESP 16; TEMP 36.4; O2SAT 95
[2024-03-08] MEDS: Emtricitabin/Tenofovir 200/300 TABLET 1 TAB PO (08:14)
[2024-03-08] MEDS: OLANZapine 5 MG TABLET PO ×2 (08:14→14:56)
[2024-03-08] MEDS: amLODIPine Besylate 5 MG TABLET PO (08:14)
[2024-03-08] MEDS: Thiamine HCL 100 MG TABLET PO (08:14)
[2024-03-08] MEDS: Divalproex Sodium Sprinkles 125 MG CAP.DR.SPR 250 MG PO ×3 (08:14→20:25)
[2024-03-08] MEDS: levETIRAcetam 500 MG TABLET PO ×2 (08:14→20:26)
[2024-03-08] MEDS: Rilpivirine HCL 25 MG TABLET PO (08:14)
--- NOTE | 2024-03-08 16:03 | P.PNPSI_ITS ---
Subjective Subjective Date of Service: 03/08/24 Reason For Visit: F32.9 Interim History: Pt slept through the night. no behavioral concerns. He reports doing well, encouraged to attend groups and be more visible during the day. He is taking medications as prescribed. No side effects noted or reported. Review of Systems Review of Systems General: No fevers, malaise, unintentional weight loss HEENT: No blurred vision, diplopia. No sore throat, nasal congestion, rhinorrhea, sinus pain, ear pain Cardiovascular: No chest pain, palpitations, or leg edema Respiratory: No shortness of breath, wheezing, cough GI: No abdominal pain, nausea, vomiting, diarrhea, constipation, melena, hematochezia : No dysuria, hematuria, increased urinary frequency, decreased urinary output MSK: No myalgia, back pain Neuro: No headaches, weakness, paresthesias Skin: No rashes or lesions Yes all other systems are reviewed and are negative and Unobtainable due to mental status Mental Status Exam Mental Status Exam Patient Appearance: Appropriate Patient Orientation: Person and Situation Level of Consciousness: Awake and Appropriate Patient Behavior: Guarded and Passive Mood Description: Withdrawn Affect Description: Constricted Patient Cognition Impaired: Yes Ability to Follow Directions: Good Speech Pattern: Clear Diagnostics Vital Signs (24Hr): Vital Signs - 24 hr 03/07/24 20:00 03/07/24 21:00 03/07/24 22:30 Temperature 97.4 F Pulse Rate 140 H 88 100 Respiratory Rate 16 18 18 Blood Pressure 158/93 H 157/80 H 111/79 Pulse Oximetry 97 97 97 Oxygen Delivery Method Room Air Room Air Room Air 03/08/24 08:00 Temperature 97.6 F Pulse Rate 107 H Respiratory Rate 16 Blood Pressure 109/71 Pulse Oximetry 95 Oxygen Delivery Method Room Air BMI result Body Mass Index 20.0 Labs 02/10/24 08:00 02/10/24 08:00 Imaging Radiology Impressions: ITS Impressions [facility] X-Ray 02/05/24 09:07 IMPRESSION: Large volume of stool throughout the colon. Nonobstructive bowel pattern. Electronically signed by: Hector Way MD 02/05/2024 04:17 PM EDT Medications Medications Current Medications Acetaminophen (Acetaminophen 325 Mg Tablet) 650 mg PO Q6H PRN PRN Reason: Pain (Scale Score 1-3) Last Admin: 01/31/24 15:36 Dose: 650 mg Al Hydroxide/Mg Hydroxide (Magnesium Hydrox/Alum Hydrox 30 Ml Oral.Susp) 30 ml PO Q6H PRN PRN Reason: Heartburn/Nausea Last Admin: 11/12/23 06:20 Dose: 30 ml Albuterol Sulfate (Albuterol Sulfate 90 Mcg 8 Gm Inhaler) 2 puff INHALE RQ4H PRN PRN Reason: Wheezing Amlodipine Besylate (Amlodipine Besylate 5 Mg Tablet) 5 mg PO DAILY [facility]; Protocol Last Admin: 03/08/24 08:14 Dose: 5 mg Divalproex Sodium (Divalproex Sodium Sprinkles 125 Mg Jabari.) 250 mg PO TID [facility] Last Admin: 03/08/24 14:56 Dose: 250 mg Emtricitabine/Tenofovir (Emtricitabin/Tenofovir 200/300 Tablet) 1 tab PO DAILY [facility] Last Admin: 03/08/24 08:14 Dose: 1 tab Haloperidol Decanoate (Haloperidol Decanoate 50 Mg/Ml Vial) 100 mg IM Q28D [facility] Last Admin: 02/17/24 20:25 Dose: 100 mg Levetiracetam (Levetiracetam 500 Mg Tablet) 500 mg PO BID [facility] Last Admin: 03/08/24 08:14 Dose: 500 mg Magnesium Hydroxide (Milk Of Magnesia 30 Ml Oral.Susp) 30 ml PO DAILY PRN PRN Reason: Constipation Last Admin: 02/03/24 09:34 Dose: 30 ml Mirtazapine (Mirtazapine 15 Mg Tablet) 15 mg PO BEDTIME [facility] Last Admin: 03/07/24 20:38 Dose: 15 mg Multivitamins/Vitamin C (Multivitamin Tablet) 1 tab PO BEDTIME [facility] Last Admin: 03/07/24 20:40 Dose: Not Given Nicotine Polacrilex (Nicotine Polacrilex 2 Mg Gum) 4 mg BUCCAL Q2H PRN PRN Reason: Nicotine Cravings Olanzapine (Olanzapine 5 Mg Tablet) 5 mg PO BID@0800,1500 [facility] Last Admin: 03/08/24 14:56 Dose: 5 mg Olanzapine (Olanzapine 10 Mg Vial) 5 mg IM BID@0800,1500 PRN PRN Reason: if refuses 0800/1500 PO zyprexa Last Admin: 10/13/23 14:58 Dose: 5 mg Olanzapine (Olanzapine 10 Mg Tablet) 20 mg PO BEDTIME [facility] Last Admin: 03/07/24 20:38 Dose: 20 mg Polyethylene Glycol (Polyethylene Glycol 3350 17 Gm Powd.Pack) 17 gm PO DAILY PRN PRN Reason: Constipation Last Admin: 02/05/24 21:00 Dose: 17 gm Rilpivirine (Rilpivirine Hcl 25 Mg Tablet) 25 mg PO DAILY [facility] Last Admin: 03/08/24 08:14 Dose: 25 mg Senna (Sennosides 8.6 Mg Tablet) 8.6 mg PO BEDTIME [facility] Last Admin: 03/07/24 20:38 Dose: 8.6 mg Thiamine HCl (Thiamine Hcl 100 Mg Tablet) 100 mg PO DAILY [facility] Last Admin: 03/08/24 08:14 Dose: 100 mg Trazodone HCl (Trazodone Hcl 50 Mg Tablet) 50 mg PO BEDTIME MRX1 [facility] Last Admin: 03/07/24 22:06 Dose: 50 mg Allergies Allergies Allergy/AdvReac Type Severity Reaction Status Date / Time No Known Allergies Allergy Unverified 01/28/20 16:07 [No Known Allergies*] Assessment & Plan Assessment & Plan (1) Schizoaffective disorder, bipolar type: Status: Acute Code(s): F25.0 - Schizoaffective disorder, bipolar type Assessment and Plan: 11/01 mildly up - positive mood=- but less irritable than in past visits 11/02 CTP (2) Dementia: Status: Acute Code(s): F03.90 - Unspecified dementia, unspecified severity, without behavioral disturbance, psychotic disturbance, mood disturbance, and anxiety Assessment and Plan: 11/01 ongoing dementia continue with reorientation and distraction prn - (3) Noncompliance: Status: Acute Code(s): Z91.199 - Patient's noncompliance with other medical treatment and regimen due to unspecified reason Assessment and Plan: seems to be taking medication currently - watches nurse crush them and put in ice cream Plan The patient is an elderly male with a past history of schizoaffective disorder, dementia, HIV and other medical problems, chronically mentally ill resident of assisted living facility referred to this facility after he became non compliant with medications with daniella and psychosis. The patient was assessed by crisis and transferring to this facility for psychiatric stabilization. At the moment of the interview the patient was able to contract for safety. Plan 1. Continue with antipsychotics and mood stabilizers. 2. Waiting for placement. Reason for continued inpatient stay Substantial Risk for: inability to function Time Spent With Patient Time: Total time managing care of this patient today ____ minutes.
[2024-03-08 19:53] VITALS: BP 112/78; PULSE 102; RESP 18; TEMP 36.8; O2SAT 94
[2024-03-08] MEDS: OLANZapine 10 MG TABLET 20 MG PO (20:25)
[2024-03-08] MEDS: traZODone HCL 50 MG TABLET PO (20:25)
[2024-03-08] MEDS: Sennosides 8.6 MG TABLET PO (20:25)
[2024-03-08] MEDS: Mirtazapine 15 MG TABLET PO (20:26)
[2024-03-09 08:00] VITALS: BP 121/83; PULSE 98; RESP 18; TEMP 36.4; O2SAT 98
[2024-03-09] MEDS: Emtricitabin/Tenofovir 200/300 TABLET 1 TAB PO (08:09)
[2024-03-09] MEDS: Thiamine HCL 100 MG TABLET PO (08:09)
[2024-03-09] MEDS: OLANZapine 5 MG TABLET PO (08:09)
[2024-03-09] MEDS: Divalproex Sodium Sprinkles 125 MG CAP.DR.SPR 250 MG PO (08:09)
[2024-03-09] MEDS: Rilpivirine HCL 25 MG TABLET PO (08:10)
[2024-03-09] MEDS: levETIRAcetam 500 MG TABLET PO (08:10)
[2024-03-09] MEDS: amLODIPine Besylate 5 MG TABLET PO (08:10)
--- NOTE | 2024-03-09 09:09 | P.DS_ITS ---
DS: Providers Provider Date of Service: 03/09/24 Date of admission: 09/30/23 20:17 Date of discharge: 03/09/24 Primary care physician: Unknown Physician Consults: 09/30/23 21:00 Consult to Hospitalist Routine Comment: Consulting Provider: Hospitalist Reason For Exam: OSH admission Discharging clinician: Lavern Luna DS: Diagnosis Discharge Diagnosis (1) Schizoaffective disorder, bipolar type: Status: Acute (2) Dementia: Status: Acute (3) Noncompliance: Status: Acute DS: Medications Discharge Medications Home Medications: Home Medications ?Medication ?Instructions ?Recorded ?Confirmed albuterol sulfate 90 mcg/actuation 2 puff inhalation Q4H PRN Wheezing 07/25/23 09/30/23 aerosol inhaler olanzapine 5 mg tablet 5 mg PO BID@0800,1400 07/25/23 09/30/23 amlodipine 5 mg tablet 5 mg PO DAILY 07/26/23 09/30/23 lorazepam 1 mg tablet 1 mg PO QID PRN Anxiety 09/30/23 09/30/23 Previous Rx's ?Medication ?Instructions ?Recorded acetaminophen 325 mg tablet 650 mg (2 x 325 mg) PO Q6H PRN 05/16/23 Pain (Scale Score 1-3) #60 tabs divalproex 250 mg tablet,delayed 250 mg PO TID 30 days #90 tabs 05/16/23 release emtricitabine 200 mg-rilpivirine 1 tab PO DAILY #30 tabs 05/16/23 25 mg-tenofovir alafenam 25 mg tablet (Abram) haloperidol 5 mg tablet 5 mg PO BID 30 days #60 tabs 05/16/23 levetiracetam 500 mg 500 mg PO BID 30 days #60 tabs 05/16/23 tablet,extended release 24 hr mirtazapine 15 mg disintegrating 15 mg PO BEDTIME 30 days #30 tabs 05/16/23 tablet olanzapine 10 mg tablet 10 mg PO BEDTIME 30 days #30 tabs 05/16/23 polyethylene glycol 3350 17 gram 17 g PO DAILY PRN Constipation #30 05/16/23 oral powder packet ea thiamine HCl (vitamin B1) 100 mg 100 mg PO DAILY #30 tabs 05/16/23 tablet haloperidol decanoate 100 mg/mL 100 mg IM Q4W #5 mL 07/31/23 intramuscular solution Mental Status Exam Mental Status Exam Patient Appearance: Appropriate Patient Orientation: Person and Situation Level of Consciousness: Awake and Appropriate Patient Behavior: Guarded and Passive Mood Description: Withdrawn Affect Description: Constricted Patient Cognition Impaired: Yes Ability to Follow Directions: Good Speech Pattern: Clear Data Imaging Diagnostic Imaging Impressions KUB X-Ray 02/05/24 09:07 IMPRESSION: Large volume of stool throughout the colon. Nonobstructive bowel pattern. Electronically signed by: Hector Way MD 02/05/2024 04:17 PM EDT DS: Summary Hospital Course Hospital Course: The patient is a 67-year-old male, chronically mentally ill with schizoaffective disorder bipolar type, very well known by this team since he had been admitted before several times with a similar presentation. The patient has [facility] involvement and he had been living in assisted living facility. The patient was assessed at the emergency room of another hospital since he became noncompliant with medications and relapse on his psychotic behavior and manic mood. Crisis assess him and transferring to this facility for psychiatric stabilization. On interview the patient was very pleasant, internally preoccupied watching TV unable to follow a full interview. He states that he is taking his medications, he denies hallucinations or delusions but his thought process was tangential, illogical at times. He was able to contract for safety. We will try to gather more collateral information we will continue with his regular medications and we will reassess. We have change his Depakote to Depakote Sprinkles since the patient can not swallow big pills. Past Psychiatric History: Inpatient: S1 05/2023, multiple in the past. Last admission on July 2023 here -Current medication: Haldol Dec 50 mg Q28 days, olanzapine 20 mg QHS, remeron 15 mg QHS. Jass?s order: haldol dec 25 mg IM Qmo, zyprexa 20 mg QD, haldol 1.5 mg BID PRN. Alternatives risperdal/ risperdal consta up to 8 mg QD/ 50 mg [id number] and seroquel up to Medical Evaluation Reviewed: Yes HOSPITAL COURSE On the unit, pt was initially admitted on a Sect 12b. He presented as guarded, withdrawn. Less agitated or combative than previous inpt psych admission. He has a guardian and a Pedraza. He was restarted on haldol decanoate which was increased from 50mg IM q28 days to 100mg IM. He received last dose on 02/17/2024. He is also on olanzapine. He was mostly in bed. Not interacting with peers as much. He was taking medications as prescribed. No signs of EPS noted. No SI/HI. No overt psychosis or delusions. There were no incidences of disruptive behaviors nor need for restraints. He was sleeping most of the time. VS were stable throughout his hospital stay. Status at Discharge Cognitive/behavioral status at discharge: Pt with constricted, non labile affect. No SI/HI. No overt delusional content noted or reported for several weeks prior to discharge. Sleeping and eating well. Functional status at discharge: independent ambulation Overall status at discharge: patient is back to baseline Time Spent with Patient Time attestation: Total time managing care of this patient today __35__ minutes. Time spent: Greater than 30 minutes Discharge Plan Discharge Anticipated Discharge Date/Time: 03/09/24 09:10 Patient Disposition: Home, Self-Care Discharge Diagnosis: schizophrenia Referrals: Physician,Unknown J [Primary Care Provider] - 1 Week Discharge Medications: New emtricitabine-tenofovir (TDF) [Truvada] 200-300 mg Tablet 1 tab PO DAILY Qty: 0 0RF Edurant 25 mg Tablet 25 mg PO DAILY Qty: 0 0RF amlodipine 5 mg Tablet 5 mg PO DAILY Qty: 0 0RF Protocol: Hold for SBP< HOLD for SBP < : 90 albuterol sulfate [Ventolin HFA] 90 mcg/actuation Hfa Aerosol Inhaler 2 puff inhalation RQ4H PRN (Reason: Wheezing) Qty: 0 0RF divalproex 125 mg Capsule, Delayed Rel Sprinkle 250 mg PO TID Qty: 0 0RF haloperidol decanoate 50 mg/mL Solution 100 mg IM Q28D Qty: 0 0RF trazodone 50 mg Tablet 50 mg PO BEDTIME MRX1 Qty: 0 0RF polyethylene glycol 3350 17 gram Powder In Packet 17 g PO DAILY PRN (Reason: Constipation) Qty: 0 0RF levetiracetam 500 mg Tablet 500 mg PO BID Qty: 0 0RF olanzapine 5 mg Tablet 5 mg PO BID@0800,1500 Qty: 0 0RF olanzapine 10 mg Tablet 20 mg PO BEDTIME Qty: 0 0RF mirtazapine 15 mg Tablet 15 mg PO BEDTIME Qty: 0 0RF sennosides [Senna Lax] 8.6 mg Tablet 8.6 mg PO BEDTIME Qty: 0 0RF multivitamin [Daily-Gloria] Tablet 1 tab PO BEDTIME Qty: 0 0RF thiamine mononitrate (vit B1) 100 mg Tablet 100 mg PO DAILY Qty: 0 0RF Discontinued haloperidol 5 mg Tablet 5 mg PO BID 30 Days Qty: 60 0RF divalproex 250 mg Tablet,Delayed Release (Dr/Ec) 250 mg PO TID 30 Days Qty: 90 0RF olanzapine 10 mg Tablet 10 mg PO BEDTIME 30 Days Qty: 30 0RF acetaminophen 325 mg Tablet 650 mg PO Q6H PRN (Reason: Pain (Scale Score 1-3)) Qty: 60 0RF polyethylene glycol 3350 17 gram Powder In Packet 17 g PO DAILY PRN (Reason: Constipation) Qty: 30 0RF thiamine HCl (vitamin B1) 100 mg Tablet 100 mg PO DAILY Qty: 30 0RF mirtazapine 15 mg tablet,disintegrating 15 mg PO BEDTIME 30 Days Qty: 30 0RF levetiracetam 500 mg Tablet Extended Release 24 Hr 500 mg PO BID 30 Days Qty: 60 0RF Odefsey 200-25-25 mg tablet 1 tab PO DAILY Qty: 30 0RF albuterol sulfate 90 mcg/actuation HFA aerosol inhaler 2 puff inhalation Q4H PRN (Reason: Wheezing) olanzapine 5 mg tablet 5 mg PO BID@0800,1400 amlodipine 5 mg tablet 5 mg PO DAILY haloperidol decanoate 100 mg/mL solution 100 mg IM Q4W Qty: 5 0RF lorazepam 1 mg Tablet 1 mg PO QID PRN (Reason: Anxiety) Discharge Orders: Discharge Order (Routine); Ordered 03/09/24 Ordered By: Lavern Luna Diet: Regular diet Activity on Discharge: As tolerated Stand Alone Forms: Patient Portal Discharge page Print Language: Turkmen Care Plan Goals: 1. maintain mood 2. No SI/HI 3. No overt psychosis/delusions 4. No aggression towards self or others. Health Concerns: 1. Follow up with PCP 2. Go to nearest ED or call 911 in event of emergency. Plan of Treatment: 1. take medications as prescribed. Last Haldol decanoate 100mg [id number] given on 02/17/2024 Assessment: Pt with constricted affect. No SI/HI. No overt psychosis. No overt delusional content.
== END 2024-03-09 14:01 | disposition home or self-care (01) | DRG 885 ==
PROVIDERS: Admitting Provider Psychiatry & Neurology Psychiatry; Visit Provider Psychiatry & Neurology Psychiatry
DX: F25.0 Schizoaffective disorder, bipolar type (principal); F03.93 Unspecified dementia, unspecified severity, with mood disturbance; Z21 Asymptomatic human immunodeficiency virus [HIV] infection status; K59.00 Constipation, unspecified; Z96.0 Presence of urogenital implants; Z78.1 Physical restraint status; Z75.1 Person awaiting admission to adequate facility elsewhere; Z91.148 Patient's other noncompliance with medication regimen for other reason; Z86.19 Personal history of other infectious and parasitic diseases; Z79.899 Other long term (current) drug therapy
CPT/HCPCS: 36415; 74018; 80048; 80053; 80164; 81001; 85025; J1631; J2359

== ENCOUNTER → 2023-09-30 20:17 | Outpatient (BNV) | payer MEDICARE, MEDICAID, SELFPAY | PROVIDERS: Admitting Provider Psychiatry & Neurology Psychiatry; Visit Provider Physician Assistant | DX: F03.90 Unspecified dementia, unspecified severity, without behavioral disturbance, psychotic disturbance, mood disturbance, and anxiety (principal); B20 Human immunodeficiency virus [HIV] disease; E44.1 Mild protein-calorie malnutrition | CPT/HCPCS: 99222; 99499 ==

== ENCOUNTER → 2023-09-30 20:17 | Outpatient (BNV) | payer MEDICARE, MEDICAID, SELFPAY | PROVIDERS: Admitting Provider Psychiatry & Neurology Psychiatry; Visit Provider Psychiatry & Neurology Psychiatry | DX: F25.0 Schizoaffective disorder, bipolar type (principal); F03.90 Unspecified dementia, unspecified severity, without behavioral disturbance, psychotic disturbance, mood disturbance, and anxiety; Z91.199 Patient's noncompliance with other medical treatment and regimen due to unspecified reason | CPT/HCPCS: 99231 ==

== ENCOUNTER → 2023-09-30 20:17 | Outpatient (BNV) | payer MEDICARE, MEDICAID, SELFPAY | PROVIDERS: Admitting Provider Psychiatry & Neurology Psychiatry; Visit Provider Psychiatry & Neurology Psychiatry | DX: F25.0 Schizoaffective disorder, bipolar type (principal); F03.90 Unspecified dementia, unspecified severity, without behavioral disturbance, psychotic disturbance, mood disturbance, and anxiety; Z91.199 Patient's noncompliance with other medical treatment and regimen due to unspecified reason | CPT/HCPCS: 90792; 99231; 99232; 99239; 99499 ==